=== PATIENT | female | born 1990 | race Caucasian/White ===

== ENCOUNTER 2022-11-29 11:59 | Outpatient (OUT) | payer BC, SELFPAY ==
--- NOTE | 2022-11-29 | ECG_ITS ---
The [facility] Test Date: 2022-11-29 Pat Name: SOO VAZQUEZ Department: Room: - Gender: Female Bird Tender: : 1990 Requested By: SURYA HODGES Order Number: [id number] Reading MD: ALECIA COLÓN Measurements Intervals Fabens Rate: 94 P: 71 WI: 142 QRS: 83 QRSD: 95 T: 58 QT: 344 QTc: 431 Interpretive Statements SINUS RHYTHM POSSIBLE RIGHT VENTRICULAR CONDUCTION DELAY [RSR (QR) IN V1/V2] No previous ECG available for comparison Electronically Signed On 11-30-2022 6:51:18 EDT by ALECIA COLÓN
--- NOTE | 2022-11-29 12:29 | XR_ITS ---
The [address] [address] Patient Name: SOO VAZQUEZ MRN: [id number] date: 1990 Sex: F Assigned Patient Location: LAB Current Patient Location: LAB Accession/Order Number: [id number] Exam Date: 11/29/2022 12:30 Report Date: 11/29/2022 12:55 At the request of: SURYA HODGES Procedure: XR chest 2V PROCEDURE: XR chest 2V DATE: 11/29/2022 11:30 AM CDT COMPARISONS: None. CLINICAL INDICATION: 32 years Female R06.00 FINDINGS: The cardiomediastinal silhouette and pulmonary vasculature are within normal limits. The lungs are clear. There is no evidence of pleural effusion or pneumothorax. XR/XR chest 2V IMPRESSION: Chest radiograph is within normal limits. Electronically authenticated by: EVERETT PENN Date: 11/29/2022 12:55
[2022-11-29 12:57] LABS: Basophils Absolute Auto 0.1 10^3/uL (0.0-0.1); Basophils Percent Auto 0.7 % (0.2-2.0); Eosinophils Absolute Auto 0.1 10^3/uL (0.0-0.7); Eosinophils Percent Auto 0.6 % (0.9-7.0); Hematocrit 42.8 % (36.0-48.0); Hemoglobin 13.9 g/dL (12.0-16.0); Immature Granulocytes Abs Auto 0.01 10^3/uL (0.00-0.03); Immature Granulocytes Pct Auto 0.1 % (0.0-0.5); Lymphocytes Absolute Auto 2.5 10^3/uL (1.2-3.8); Lymphocytes Percent Auto 30.8 % (20.5-60.0); Mean Corpuscular HGB Conc 32.5 g/dL (29.9-35.2); Mean Corpuscular Hemoglobin 27.3 pg (26.7-34.0); Mean Corpuscular Volume 84.1 fL (81.0-99.0); Mean Platelet Volume 8.7 fL (9.5-13.5); Monocytes Absolute Auto 0.5 10^3/uL (0.3-0.8); Monocytes Percent Auto 6.5 % (1.7-12.0); Neutrophils Percent Auto 61.3 % (43.0-75.0); Platelet Count 376 10^3/uL (150-450); Red Blood Count 5.09 10^6/uL (4.20-5.40); Red Cell Distribution Width 13.6 % (11.0-15.0); White Blood Count 8.1 10^3/uL (4.0-11.0)
[2022-11-29 13:36] LABS: Free T4 1.39 ng/dL (0.76-1.46)
[2022-11-29 13:39] LABS: Anion Gap 9.1; BUN Creatinine Ratio 11.5; Calcium 9.2 mg/dL (8.5-10.1); Carbon Dioxide 28.5 mmol/L (21.0-32.0); Chloride 102 mmol/L (98-107); Estimated GFR (African America >60 (>=60); Estimated GFR (Non-African Ame >60 (>=60); Glucose 100 mg/dL (74-106); Potassium 3.6 mmol/L (3.5-5.1); Sodium 136 mmol/L (136-145); Thyroid Stimulating Hormone 0.022 uIU/mL (0.358-3.740)
== END 2022-11-29 12:00 | disposition home or self-care (01) ==
PROVIDERS: PCP Family Medicine; Visit Provider Family Medicine
DX: R07.9 Chest pain, unspecified (principal); R06.00 Dyspnea, unspecified; E03.9 Hypothyroidism, unspecified
CPT/HCPCS: 36415; 71046; 80048; 84439; 84443; 85025; 93005

== ENCOUNTER 2022-12-28 20:33 | Outpatient (REF) | payer BC, SELFPAY ==
[2023-01-04 11:13] LABS: Age Gdln ACOG Testing Note (.); HPV Aptima Negative (Negative); IGP, Aptima HPV, rfx 16/18,45 Note (.)
== END 2022-12-28 20:34 | disposition home or self-care (01) ==
LOC: LAB 20:33
PROVIDERS: PCP Family Medicine; Visit Provider Obstetrics & Gynecology
DX: Z01.419 Encounter for gynecological examination (general) (routine) without abnormal findings (principal)
CPT/HCPCS: 87624; G0145

== ENCOUNTER 2023-01-01 07:42 | Outpatient (OUT) | payer BC, SELFPAY ==
[2023-01-01 08:00] LABS: Basophils Absolute Auto 0.1 10^3/uL (0.0-0.1); Basophils Percent Auto 0.6 % (0.2-2.0); Eosinophils Absolute Auto 0.1 10^3/uL (0.0-0.7); Eosinophils Percent Auto 1.1 % (0.9-7.0); Hematocrit 38.8 % (36.0-48.0); Hemoglobin 12.7 g/dL (12.0-16.0); Immature Granulocytes Abs Auto 0.01 10^3/uL (0.00-0.03); Immature Granulocytes Pct Auto 0.1 % (0.0-0.5); Lymphocytes Absolute Auto 2.8 10^3/uL (1.2-3.8); Lymphocytes Percent Auto 32.7 % (20.5-60.0); Mean Corpuscular HGB Conc 32.7 g/dL (29.9-35.2); Mean Corpuscular Hemoglobin 27.7 pg (26.7-34.0); Mean Corpuscular Volume 84.5 fL (81.0-99.0); Mean Platelet Volume 8.7 fL (9.5-13.5); Monocytes Absolute Auto 0.5 10^3/uL (0.3-0.8); Monocytes Percent Auto 5.9 % (1.7-12.0); Neutrophils Percent Auto 59.6 % (43.0-75.0); Platelet Count 315 10^3/uL (150-450); Red Blood Count 4.59 10^6/uL (4.20-5.40); Red Cell Distribution Width 13.9 % (11.0-15.0); White Blood Count 8.5 10^3/uL (4.0-11.0)
[2023-01-01 08:41] LABS: Estimated Average Glucose 103 mg/dL; Glycohemoglobin A1C 5.2 % (4.5-6.2)
[2023-01-01 08:46] LABS: Free T4 1.13 ng/dL (0.76-1.46)
[2023-01-01 08:55] LABS: Chol HDL Ratio 3.6; Cholesterol 234 mg/dL (<=200); HDL Cholesterol 65 mg/dL (40-60); Thyroid Stimulating Hormone 1.853 uIU/mL (0.358-3.740); Triglycerides 79 mg/dL (<=150); VLDL CHOLESTEROL 15.8 mg/dL
== END 2023-01-01 07:43 | disposition home or self-care (01) ==
LOC: LAB 07:43
PROVIDERS: PCP Family Medicine; Visit Provider Obstetrics & Gynecology
DX: E34.9 Endocrine disorder, unspecified (principal); R79.89 Other specified abnormal findings of blood chemistry; R73.09 Other abnormal glucose
CPT/HCPCS: 36415; 80061; 83036; 84439; 84443; 85025

== ENCOUNTER 2023-02-09 16:50 | Outpatient (OUT) | payer BC, SELFPAY ==
[2023-02-09 17:26] LABS: Estimated Average Glucose 103 mg/dL; Glycohemoglobin A1C 5.2 % (4.5-6.2)
[2023-02-09 17:33] LABS: Free T4 0.89 ng/dL (0.76-1.46)
[2023-02-09 17:40] LABS: Cholesterol 309 mg/dL (<=200); Free T3 1.83 pg/mL (2.18-3.98); HDL Cholesterol 77 mg/dL (40-60); Thyroid Stimulating Hormone 6.914 uIU/mL (0.358-3.740); Triglycerides 186 mg/dL (<=150); VLDL CHOLESTEROL 37.2 mg/dL
== END 2023-02-09 16:51 | disposition home or self-care (01) ==
LOC: LAB 16:51
PROVIDERS: PCP Family Medicine; Visit Provider Physician Assistant
DX: E03.9 Hypothyroidism, unspecified (principal)
CPT/HCPCS: 36415; 80061; 83036; 84439; 84443; 84481

== ENCOUNTER 2023-02-23 16:16 | Outpatient (OUT) | payer BC, SELFPAY ==
--- NOTE | 2023-02-23 16:19 | US_ITS ---
The [address] [address] Patient Name: SOO VAZQUEZ MRN: [id number] date: 1990 Sex: F Assigned Patient Location: [place] Current Patient Location: [place] Accession/Order Number: [id number] Exam Date: 02/23/2023 16:20 Report Date: 02/23/2023 16:46 At the request of: NICOLE RIDER Procedure: US thyroid EXAM: US thyroid HISTORY: Hypothyroidism COMPARISON: None. TECHNIQUE: Multiple sonographic images of the thyroid gland were obtained, supplemented with Doppler. FINDINGS: The right lobe measures 3.0 x 0.5 x 1.0 cm. Homogeneous echoes are noted throughout. No focal nodule is identified within. The left lobe measures 3.8 x 0.6 x 0.7 cm. Homogeneous echoes are noted throughout. No focal abnormality is identified within. The isthmus measures 1 mm in thickness. There is no evidence of a focal mass or abnormal fluid collection surrounding the gland. US/US thyroid IMPRESSION: The thyroid gland is not enlarged. No focal abnormality is identified within. Comparison with a previous study may be helpful in confirming the chronicity is findings. TI RADS 1. Electronically authenticated by: KATIUSKA VALDERRAMA Date: 02/23/2023 16:46
== END 2023-02-23 16:17 | disposition home or self-care (01) ==
LOC: US 16:16
PROVIDERS: PCP Family Medicine; Visit Provider Internal Medicine
DX: E03.9 Hypothyroidism, unspecified (principal)
CPT/HCPCS: 76536

== ENCOUNTER 2023-03-11 09:21 | Outpatient (REF) | payer BC, SELFPAY ==
--- OUTSIDE RECORDS SUMMARY | 2023-03-11 09:35 | XMS_ITS | CCD ---
Author Name Unknown Address [address] [place] [address] Organization [facility] Care Team Providers Care Editor News Name Role Phone Treasure Quezada Unavailable SURYA HODGES Primary Care Physician MD Surya Hodges Primary Care Provider KITA Quezada Attending Provider [phone] Surya Hodges Unavailable Kamaljit ROMERO Attending Unavailable RONDA KAUFMAN Attending Unavailab Brent Pan Referring Unavailable Kamaljit ROMERO Attending Unavailable Dee Mirza Attending Unavailable COLEEN ., DR SEYMOUR Admitting Unavailable HODGES, DR SURYA Dejesus Primary Care Unavailable BRIDGETTE PATEL Consulting Unavailable COLEEN ., DR SEYMOUR Attending Unavailable COLEEN ., DR SEYMOUR Admitting Unavailable COLEEN ., DR SEYMOUR Consulting Unavailable HODGES, DR SURYA Dejesus Primary Care Unavailable COLEEN ., DR SEYMOUR Attending Unavailable CHELSEA PINTO Consulting Unavailable BO II, MATHEW Consulting Unavailable COLEEN ., DR SEYMOUR Admitting Unavailable COLEEN ., DR SEYMOUR Consulting Unavailable TRACIE, DR SURYA Dejesus Primary Care Unavailable COLEEN ., DR SEYMOUR Attending Unavailable LUOleg .DEE Attending Unavailable LUOleg .DEE Admitting Unavailable EULALIO .DEE Consulting Unavailable TRACIE, DR SURYA Dejesus Primary Care Unavailable ROMERO ., DR NAQVI Attending Unavailable ROMERO ., DR NAQVI Admitting Unavailable ROMERO ., DR NAQVI Consulting Unavailable ZIEBER, DR DAVID Rivas Consulting Unavailable COLEEN ., DR SEYMOUR Admitting Unavailable COLEEN ., DR SEYMOUR Consulting Unavailable TRACIE, DR SURYA Dejesus Primary Care Unavailable COLEEN ., DR SEYMOUR Attending Unavailable HODGES, DR SURYA Dejesus Primary Care Unavailable ROMERO ., DR NAQVI Attending Unavailable ROMERO ., DR NAQVI Admitting Unavailable TRACIE, DR SURYA Dejesus Primary Care Unavailable KORI, BRINA Attending Unavailable KORI, BRINA Admitting Unavailable COLEEN ., DR SEYMOUR Admitting Unavailable COLEEN ., DR SEYMOUR Consulting Unavailable HODGES, DR SURYA Dejesus Primary Care Unavailable COLEEN ., DR SEYMOUR Attending Unavailable COLEEN ., DR SEYMOUR Consulting Unavailable HODGES, DR SURYA Dejesus Primary Care Unavailable COLEEN ., DR SEYMOUR Attending Unavailable COLEEN ., DR SEYMOUR Admitting Unavailable Kayla Acosta Consulting Unavailable KORI, BRINA Admitting Unavailable BRINA SHEIKH Attending Unavailable TRACIE, DR SURYA Dejesus Primary Care Unavailable TRACIE, DR SURYA Dejesus Primary Care Unavailable LIMA, DR CROW Rivas Admitting Unavailable LIMA, DR CROW Rivas Consulting Unavailable LIMA, DR CROW Rivas Attending Unavailable MAGI BAUER Consulting Unavailable MICKEY GALVAN Consulting Unavailable RERE CARLISLE Consulting Unavailable MD Surya Hodges Primary Care Provider DO Marcio Steven Emergency Provider MD Baljinder Polanco Admit Provider [phone] MD Baljinder Polanco Attending Provider Treasure Quezada Attending Unavailable Treasure Quezada Admitting Unavailable Surya Hodges Primary Care Unavailable Baljinder Polanco Admitting Unavailable Surya Hodges Primary Care Unavailable Baljinder Polanco Attending Unavailable Allergies Allergy Classification Reported Allergen(s) Allergy Type Date of Onset Reaction(s) Facility (16 sources) Azithromycin; Translations: [azithromycin] Drug Allergy rash, Eruption of skin (disorder) [facility] (13 sources) whooping cough Propensity to adverse reactions swelling injection site [facility] Other (12 sources) Bordetella pertussis filamentous hemagglutinin vaccine, inactivated / Bordetella pertussis fimbriae 2/3 vaccine, inactivated / Bordetella pertussis pertactin vaccine, inactivated / Bordetella pertussis toxoid vaccine, inactivated / diphtheria toxoid vaccine, inactivated / tetanus toxoid vaccine, inactivated; Translations: [diphtheria/pertu ssis, acel/tetanus adult] Drug Allergy 03-14-19 Unknown, Comment:vaccin e [facility] (13 sources) Clindamycin; Translations: [clindamycin] Drug Allergy 03-14-19 Unknown, Comment:Clinda mycin Cream, Rash [facility] (2 sources) acellular pertussis vaccine, inactivated / diphtheria toxoid vaccine, inactivated / tetanus toxoid vaccine, inactivated Drug Allergy [facility] (2 sources) Clindamycin Drug Allergy [facility] (2 sources) vaccine adjuvant system, AS01B liposomal; Translations: [vaccine adjuvant system, AS01B liposomal] Allergy to substance 12-01-19 Rash [facility] (1 source) Clindamycin Drug Allergy 12-01-19 [facility] Medications Current Medications Medication Drug Class(es) Dates Sig (Normalized) Sig (Original) [id number] 200 actuat albuterol 0.09 mg/actuat metered dose inhaler (1 source) beta2-Adrenergic Agonist Start: 04-08-2021 take 2 puff(s) by inhalation four times daily as needed Albuterol Sulfate HFA 108 (90 Base) MCG/ACT 2 puffs Inhalation qid prn Mar, Active amoxicillin 500 mg oral capsule (2 sources) Penicillin-class Antibacterial Start: 03-16-2022 take 1 capsule by mouth every eight hours Amoxicillin 500 MG 1 capsule Orally every 8 hrs for 7 days Mar, Active Celexa (3 sources) Serotonin Reuptake Inhibitor Start: 05-21-2022 Celexa Refills(s) 0 Start Date: 05/21/22 Status: Ordered take 1 tablet by tory th every twenty-four hours CeleXA 20 MG 1 tablet once a day Active estradiol 0.5 mg oral tablet (1 source) Estrogen Start: 01-13-2022 take 2 tablets by mouth once daily estradiol 0.5 mg Tab mg tab(s), Oral, Daily, Refills(s) 0 Start Date: 01/13/22 Status: Ordered fluconazole 150 mg oral tablet (3 sources) Azole Antifungal Start: 03-16-2022 Diflucan 150 MG 1 tablet Orally x1 for 1 days Mar, Active Prozac (2 sources) Serotonin Reuptake Inhibitor Start: 01-13-2022 Prozac Oral, Daily, Refills(s) 0 Start Date: 01/13/22 Status: Ordered levothyroxine sodium 0.137 mg oral capsule (17 sources) l-Thyroxine Start: 12-01-2022 take 137 ug by mouth once daily Levothyroxine Active 137 MCG PO Daily December 01, 2022 12:00am Start: 11-30-2022 take 175 ug by mouth once daily Levothyroxine Active 175 MCG PO Daily November 30, 2022 12:00am Start: 01-11-2022 Synthroid 150 mcg (0.15 mg) Tab Oral, Refills(s) 0 Start Date: 01/11/22 Status: Ordered take 1 tablet by tory th every twenty-four hours Synthroid 137 MCG 1 tablet Orally Once a day Active take 1 tablet by tory th every twenty-four hours Synthroid 175 MCG 1 tablet Orally Once a day Active 24 hr metFORMIN hydrochloride 500 mg extended release oral tablet (2 sources) Biguanide Start: 11-30-2022 End: 12-01-2022 take 500 mg by mouth twice daily Metformin Active 500 MG PO Twice daily 180 90 December 01, 2022 1:05pm Mounjaro 2.5 mg/0.5 mL subcutaneous solution (2 sources) Start: 01-13-2022 inject 1 mg by subcutaneous injection every week Mounjaro 2.5 mg/0.5 mL subcutaneous solution mg, SubCutaneous, qWeek, Refills(s) 0 Start Date: 01/13/22 Status: Ordered Zofran (1 source) Serotonin-3 Receptor Antagonist Start: 05-21-2022 Zofran Refills(s) 0 Start Date: 05/21/22 Status: Ordered phentermine hydrochloride 37.5 mg oral tablet (8 sources) Sympathomimetic Amine Anorectic Start: 11-18-2022 take 1 tablet by mouth once daily before breakfast Adipex-P 37.5 MG 1 tablet before breakfast Orally Once a day for 30 days Nov, Active Start: 10-18-2022 take 1 tablet by tory th once daily before breakfast Adipex-P 37.5 MG 1 tablet before breakfast Orally Once a day for 30 days Oct, Active Start: 07-07-2023 take 1 tablet by tory th once daily before breakfast Adipex-P 37.5 MG 1 tablet before breakfast Orally Once a day for 30 days Sep, Active predniSONE 10 mg oral tablet (6 sources) Start: 11-05-2022 predniSONE 10 MG 4 tabs po daily x 2 days, 3 tabs daily x 2 days, 2 tabs daily x 2 days, 1 tab daily x 2 days Orally Once a day for Oct, Active Start: 09-09-2022 predniSONE 10 MG 4 tabs po daily x 2 days, 3 tabs daily x 2 days, 2 tabs daily x 2 days, 1 tab daily x 2 days Orally Once a day for 8 Aug, Active Start: 04-08-2021 take 1 tablet by tory every twelve hours predniSONE 20 MG 1 tablet Orally bid for 5 day(s) Mar, Active 24 hr propranolol hydrochloride 120 mg extended release oral capsule (3 sources) beta-Adrenergic Janie Start: 12-01-2022 take 120 mg by mouth once daily Propranolol Active 120 MG PO Daily December 01, 2022 12:00am Completed/Discontinued Medications Medication Drug Class(es) Dates Sig (Normalized) Sig (Original) methylPREDNISolone acetate 40 mg/ml injectable suspension (11 sources) Corticosteroid Start: 11-05-2022 DEPO-Medrol Oct, 60 mg Start: 03-16-2022 Medrol (Chad) 4 MG as directed Orally daily for 6 days Mar, Active methylPREDNISolo ne 4 MG TAKE 6 TABLETS ON DAY 1 DIRECTED ON PACKAGE AND DECREASE BY 1 TAB EACH DAY FOR A TOTAL OF 6 DAYS for 6 Active triamcinolone acetonide 40 mg/ml injectable suspension (10 sources) Corticosteroid Start: 09-15-2022 Kenalog-40 Sep, 60 mg venlafaxine 75 mg oral tablet (15 sources) Serotonin and Norepinephrine Reuptake Inhibitor take 1 tablet by mouth every twelve hours Venlafaxine HCl 75 MG 1 tablet with food Orally Twice a day Not-Taking Effexor Active Problems Active Problems Problem Classification Problem Date Documented Da te Episodic/Chronic Abdominal pain (11 sources) Pelvic and perineal pain; Translations: [Unspecified abdominal pain] Onset: Episodic Acute bronchitis (3 sources) Acute bronchitis; Translations: [Acute bronchitis due to other specified organisms] Episodic Allergic reactions (8 sources) Unspecified contact dermatitis, unspecified cause; Translations: [Allergic contact dermatitis] Episodic Anxiety disorders (12 sources) Anxiety; Translations: [Anxiety disorder] 01-13-2022 Chronic Calculus of urinary tract (10 sources) Ureteric stone; Translations: [Calculus of ureter] Onset: 3 Episodic Cardiac dysrhythmias (1 source) Supraventricular tachycardia; Translations: [SUPRAVENTRICULAR TACHYCARDIA] Onset: 2 Chronic Cardiac dysrhythmias (9 sources) Tachycardia; Translations: [Tachycardia, unspecified] Onset: 4 11-30-2022 Episodic Essential hypertension (7 sources) Essential hypertension; Translations: [Essential (primary) hypertension] Chronic Genitourinary symptoms and ill-defined conditions (12 sources) Stress incontinence (female) (male); Translations: [Female stress incontinence] Onset: 2 Chronic Genitourinary symptoms and ill-defined conditions (3 sources) Genitourinary symptoms; Translations: [Other symptoms and signs involving the genitourinary system] Episodic Headache; including migraine (3 sources) Migraine without aura, not refractory ; Translations: [Other migraine, not intractable, without status migrainosus] Chronic Inflammatory diseases of female pelvic organs (3 sources) Acute vaginitis; Translations: [Acute vaginitis] Episodic Malaise and fatigue (7 sources) Fatigue; Translations: [Other fatigue] Episodic Menopausal disorders (1 source) Hormone replacement therapy; Translations: [HORMONE REPLACEMENT THERAPY] Onset: 3 Episodic Menstrual disorders (12 sources) Intermenstrual bleeding - irregular; Translations: [Excessive and frequent menstruation with irregular cycle] Onset: 9 Resolved: 1 Chronic Miscellaneous mental health disorders (3 sources) Lack or loss of sexual desire; Translations: [Hypoactive sexual desire disorder] Chronic Miscellaneous mental health disorders (3 sources) Emotional state finding; Translations: [Other symptoms and signs involving emotional state] Episodic Mood disorders (3 sources) Affective psychosis; Translations: [Unspecified mood [affective] disorder] Chronic Mood disorders (7 sources) Mood swings; Translations: [Emotional lability] Episodic Nonspecific chest pain (3 sources) Chest pain, unspecified; Translations: [Chest pain] Episodic Nutritional deficiencies (7 sources) Iron deficiency; Translations: [Iron deficiency] Episodic Other aftercare (1 source) Other group home (current) drug therapy; Translations: [OTH SNF CURRENT DRUG THERAPY] Onset: 3 Episodic Other aftercare (3 sources) Long-term current use of drug therapy; Translations: [Other group home (current) drug therapy] Episodic Other aftercare (3 sources) History and physical examination, follow-up; Translations: [Encounter for follow-up examination after completed treatment for conditions other than malignant neoplasm] Episodic Other circulatory disease (7 sources) Elevated blood-pressure reading without diagnosis of hypertension; Translations: [Elevated blood-pressure reading, without diagnosis of hypertension] Episodic Other endocrine disorders (4 sources) Endocrine disorder, unspecified; Translations: [ENDOCRINE DISORDER UNSPECIFIED] Onset: 3 Episodic Other endocrine disorders (3 sources) Disorder of endocrine system; Translations: [Endocrine disorder, unspecified] Episodic Other female genital disorders (1 source) Noninflammatory disorder of ovary, fallopian tube and broad ligament, unspecified; Translations: [OTH NONINFL D/O OVARY TUBE AND BRD LIG] Onset: 3 Episodic Other female genital disorders (3 sources) Noninflammatory disorder of the vagina; Translations: [Other specified noninflammatory disorders of vagina] Episodic Other gastrointestinal disorders (1 source) Peritoneal adhesions (postprocedural) (postinfection); Translations: [PERITONEAL ADHES POSTPROC POSTINF] Onset: 3 Episodic Other inflammatory condition of skin (7 sources) Rosacea; Translations: [Other rosacea] Onset: 7 Chronic Other inflammatory condition of skin (3 sources) Itching of skin; Translations: [Pruritus, unspecified] Episodic Other lower respiratory disease (1 source) Dyspnea, unspecified Episodic Other lower respiratory disease (1 source) Other abnormalities of breathing Episodic Other nutritional; endocrine; and metabolic disorders (20 sources) Obesity; Translations: [Obesity, unspecified] Chronic Other nutritional; endocrine; and metabolic disorders (1 source) Obesity, unspecified; Translations: [OBESITY UNSPECIFIED] Onset: 3 Chronic Other nutritional; endocrine; and metabolic disorders (6 sources) Obese class I; Translations: [Body mass index (BMI) 32.0-32.9, adult] Chronic Other nutritional; endocrine; and metabolic disorders (7 sources) Simple obesity ; Translations: [Other obesity due to excess calories] Onset: 6 Chronic Other nutritional; endocrine; and metabolic disorders (13 sources) Weight gain; Translations: [Abnormal weight gain] Episodic Other nutritional; endocrine; and metabolic disorders (1 source) Body mass index (BMI) 27.0-27.9, adult; Translations: [BODY MASS INDEX BMI 27.0-27.9 ADULT] Onset: 3 Episodic Other nutritional; endocrine; and metabolic disorders (3 sources) Overweight Episodic Other nutritional; endocrine; and metabolic disorders (1 source) Body mass index (BMI) 29.0-29.9, adult Episodic Other nutritional; endocrine; and metabolic disorders (7 sources) Other symptoms and signs concerning food and fluid intake; Translations: [Nutritional status: food and fluid intake] Episodic Other nutritional; endocrine; and metabolic disorders (1 source) Body mass index (BMI) 28.0-28.9, adult Episodic Other screening for suspected conditions (not mental disorders or infectious disease) (7 sources) Encounter for screening for malignant neoplasm of cervix; Translations: [Urine test negative] Onset: 2 Episodic Other upper respiratory disease (3 sources) Seasonal allergic rhinitis; Translations: [Other seasonal allergic rhinitis] Chronic Other upper respiratory infections (3 sources) Chronic sinusitis; Translations: [Chronic sinusitis, unspecified] Chronic Other upper respiratory infections (20 sources) Acute upper respiratory infection, unspecified; Translations: [Acute upper respiratory infection] Onset: 3 Resolved: 2 Episodic Ovarian cyst (6 sources) Unspecified ovarian cyst, left side; Translations: [Unspecified ovarian cyst, unspecified side] Onset: 3 Episodic Residual codes; unclassified (1 source) Acquired absence of other specified parts of digestive tract; Translations: [ACQ ABSENCE OTH PART DIGESTV TRACT] Onset: 3 Episodic Residual codes; unclassified (1 source) Acquired absence of both cervix and uterus; Translations: [ACQUIRED ABSENCE BOTH CERVIX AND UTERUS] Onset: 3 Episodic Residual codes; unclassified (3 sources) Flushing; Translations: [Flushing] Episodic Residual codes; unclassified (3 sources) Localized edema; Translations: [Localized edema] Episodic Residual codes; unclassified (3 sources) Postprocedural state finding; Translations: [Other specified postprocedural states] Episodic Sprains and strains (13 sources) Sprain of other ligament of left ankle, subsequent encounter; Translations: [Sprain of left ankle] Onset: 7 Episodic Thyroid disorders (20 sources) Hypothyroidism; Translations: [Hypothyroidism, unspecified] Onset: 2 01-11-2022 Chronic Unclassified (1 source) Tachycardia, unspecified; Translations: [Tachycardia, unspecified] Onset: 3 Unclassified (1 source) Pain in left ankle and joints of left foot; Translations: [Pain in left ankle and joints of left foot] Onset: 2 Viral infection (6 sources) Genital herpes simplex; Translations: [Herpesviral infection of other urogenital tract] Resolved: 9 Chronic Past or Other Problems Problem Classification Problem Date Documented Date Episodic/Chronic Contraceptive and procreative management (3 sources) Surveillance of intrauterine device contraception; Translations: [Encounter for routine checking of intrauterine contraceptive device] Resolved: 06-01-2018 Episodic Immunizations and screening for infectious disease (2 sources) Contact with and (suspected) exposure to other viral communicable diseases; Translations: [Encounter for screening for human papillomavirus (HPV)] Onset: 04-08-2021 Resolved: 04-08-2021 Episodic Inflammation; infection of eye (except that caused by tuberculosis or sexually transmitteddisease) (7 sources) External hordeolum; Translations: [Hordeolum externum unspecified eye, unspecified eyelid] Onset: 07-16-2015 Episodic Mycoses (3 sources) Candidiasis; Translations: [Candidiasis, unspecified] Resolved: 07-07-2016 Episodic Other connective tissue disease (1 source) Pain in left foot; Translations: [PAIN IN LEFT FOOT] Onset: 03-30-2022 Episodic Other female genital disorders (3 sources) Disorder of female genital organs; Translations: [Unspecified condition associated with female genital organs and menstrual cycle] Onset: 06-10-2008 Resolved: 05-08-2015 Episodic Other lower respiratory disease (7 sources) Snoring; Translations: [Snoring] Onset: 05-02-2018 Episodic Other nutritional; endocrine; and metabolic disorders (3 sources) Abnormal weight gain; Translations: [Abnormal weight gain] Onset: 11-03-2021 Episodic Superficial injury; contusion (3 sources) Nonvenomous insect bite of thigh without infection; Translations: [Insect bite (nonvenomous), right thigh, initial encounter] Onset: 11-18-2016 Episodic Unclassified (1 source) Vaginal yeast infection B37.31 Unclassified (3 sources) Acute candidiasis of vulva and vagina; Translations: [Acute candidiasis of vulva and vagina] Results Test Name Value Interpretation Reference Range Facility A1C with Estimated Average G hussain 12-01-2022 Glucose [Mass/Vol] 120 mg/dL Normal [facility] Comment on above: Result Comment: PERF ORMED BY: [facility] [address] [place] [address] PATHOLOGIST SAP GATHERER ISAIAS DE LA CRUZ M.D. Performed By: #### L IPID, HS TROP, A1C WT eA ####[place] [id number] [place] [id number] [facility] HbA1c (Bld) [Mass fraction] 5.8 % High 4.3-5.6 [facility] Comment on above: Result Comment: Incr eased risk for diabetes: 5.7 - 6.4 diabetes: >6.4 glycemic control for adults with diabetes: <7.0 Performed By: #### L IPID, HS TROP, A1C WTH eA ####[place] [id number] [place] [id number] [facility] Cholesterol [Mass/volume] in Serum or PlasmaOrdered By: Baljinder Polanco on 12-01-2022 Cholesterol [Mass/Vol] 214 mg/dL 140-200 [facility] Comment on above: Chol less than 200 m g/dl low riskChol 201-239 mg/dl borderline riskChol 240 mg/dl and greater high risk Cholesterol in LDL Calc [Mas s/Vol]Ordered By: Baljinder Polacno on 12-01-2022 Cholesterol in LDL [Mass/Vol] 132 mg/dL 0-100 [facility] Comment on above: LDL ATP III CLASSIFI CATIONLDL less than 100 mg/dL OptimalLDL 100-129 mg/dL Near or above optimalLDL 130-159 mg/dL Borderline highLDL 160-189 mg/dL HighLDL greater than 189 mg/dL Very high Cholesterol in VLDL Calc [Ma ss/Vol]Ordered By: Baljinder Polanco on 12-01-2022 Cholesterol in VLDL [Mass/Vol] 27 mg/dL [facility] echo transthoracicon [facility] echo transthoracic [facility] Main [place] [address] [place] [address] Echocardiogram Signed Patient: Karlene Vazquez MR#: [id number] : 1990 Acct:[id number] Age/Sex: 32 / F ADM Date: 11/30/22 Loc: Room: [address] [place] [address] Type: ADM INOo Attending Dr: Baljinder Polanco MD Ordering Provider: Baljinder Polanco MD Date of Service: 12/01/22 [facility] echo transthoracic: chest pain, abnormal troponins Copies to: MD Hammad Ambrose MD, [facility] Height: 69 in Weight: 197 lb Performed By: OZ Bonilla BSA: 2.1 m2 BP: 126/85 mmHg HR: 99 Reason For Study: chest pain, abnormal troponins History: No cardiac history per patient Interpretation Summary Ejection Fraction = 55-60%. The left ventricular size, thickness and function are normal The left ventricular wall motion is normal. Normal transthoracic echocardiogram. Procedure/Quality: A two-dimensional transthoracic echocardiogram with color flow and Doppler was performed. The study was technically good in quality. There is no prior echocardiogram noted for this patient. Left Ventricle: The left ventricular size, thickness and function are normal. Ejection Fraction = 55-60%. The left ventricular wall motion is normal. Left Atrium: The left atrium appears normal in size. The atrial septum appears normal. Right Atrium: The right atrium appears normal in size. Right Ventricle: The right ventricular size, thickness and function are normal. Aortic Valve: The aortic valve is normal in structure and function. No aortic regurgitation is present. Mitral Valve: The mitral valve is normal in structure and function. There is no mitral regurgitation noted. Tricuspid Valve: The tricuspid valve is normal in structure and function. No tricuspid regurgitation. Pulmonic Valve: The pulmonic valve is normal in structure and function. Arteries: The aortic root is normal size. Pericardium/Pleura: No pericardial effusion seen. There is no pleural effusion. IVC/Hepatic Viens: The inferior vena cava is normal in size, with a normal collapsibility index. Miscellaneous: No thrombus, vegetation or mass is seen. Measurements with Normals IVSd: 1.2 cm (0.7-1.1 cm)LVIDd: 3.7 cm (3.7-5.4 cm) LVPWd: 1.1 cm (0.7-1.1 cm)LVIDs: 2.4 cm (2.3-3.6 cm) LA dimension: 3.8 cm(2.3-4.0 cm)Ao root diam: 2.7 cm(2.0-3.6 cm) Doppler with Normals MV E max andrew: 73.7 cm/sec(0.8-1.3m/s) MV A max andrew: 56.1 cm/sec(0.0-0.0m/s) MV E/A: 1.3 (<1.5) MMode/2D Measurements Calculations RVDd: 3.0 cm FS: 35.1 % Ao root area: 5.7 cm2 LVLd ap4: 6.8 cm TAPSE: 2.7 cm EDV(Teich): EDV(MOD-sp4): RV S Andrew: 58.1 ml 42.7 ml 15.7 cm/sec ESV(Teich): LVLs ap4: 5.9 cm 20.2 ml ESV(MOD-sp4): EF(Teich): 65.3 % 18.4 ml EF(MOD-sp4): 56.9 % __ SV(MOD-sp4): LAV(MOD-sp4): LA A2 area: 14.5 cm2 24.3 ml 17.3 ml LAV(MOD-sp2): LA A4 area: 9.6 cm2 37.0 ml LA length (vol): 4.2 cm LA vol: 28.4 ml LA vol index: 13.8 ml/m2 Doppler Measurements Calculations MV dec time: 0.09 sec E/E' lat: 4.9 E/E' med: 6.0 MV dec slope: 871.0 cm/sec2 ___ Transcribed By: SCV Performed At: 12/01/22 1120 Signed By: Hammad Adam MD, [facility] 12/01/22 1643 Normal [facility] Glucose mean value [Mass/vol ume] in Blood Estimated from glycated hemoglobinOrdered By: Baljinder Polanco on 12-01-2022 Average glucose Estimated from glycated hemoglobin (Bld) [Mass/Vol] 120 mg/dL [facility] [facility] Hemoglobin A1c percentageOrd ered By: Baljinder Polanco on 12-01-2022 HbA1c (Bld) [Mass fraction] 5.8 % 4.3-5.6 [facility] Comment on above: Increased risk for d iabetes: 5.7 - 6.4diabetes: >6.4glycemic control for adults with diabetes: <7.0 Lipid Panelon 12-01-2022 Cholesterol [Mass/Vol] 214 mg/dL High 140-200 [facility] Comment on above: Result Comment: Chol less than 200 mg/dl low risk Chol 201-239 mg/dl borderline risk Chol 240 mg/dl and greater high risk Performed By: #### L IPID, HS TROP, A1C WTH eA ####[facility] [id number] [place] [address] [facility] Cholesterol in HDL [Mass/Vol] 54 mg/dL Normal 23-92 [facility] Comment on above: Result Comment: HDL CHOL ATP-III CLASSIFICATION Cardiovascular Risk HDL > or equal to 60 mg/dL LOW HDL < 40 mg/dL HIGH Performed By: #### L IPID, HS TROP, A1C WTH eA ####[facility] [id number] [place] [address] [facility] Cholesterol.total/Chol esterol in HDL [Mass ratio] 4.0 {ratio} Normal <5.0 [facility] Comment on above: Result Comment: PERF ORMED BY: [facility] [address] [place] [address] PATHOLOGIST SAP GATHERER ISAIAS DE LA CRUZ M.D. Performed By: #### L IPID, HS TROP, [address] eA ####[place] [id number] [place] [id number] [facility] LDL Cholesterol,Calculated 132 mg/dL High 0-100 [facility] Comment on above: Result Comment: LDL ATP III CLASSIFICATION LDL less than 100 mg/dL Optimal LDL 100-129 mg/dL Near or above optimal LDL 130-159 mg/dL Borderline high LDL 160-189 mg/dL High LDL greater than 189 mg/dL Very high Performed By: #### L IPID, HS TROP, [address] eA ####[address] Triglyceride w/Reflex 139 mg/dL Normal 0-149 [facility] Comment on above: Result Comment: TRIG ATP III CLASSIFICATION TRIG less than 150 mg/dL Normal TRIG 150-199 mg/dL Borderline high TRIG 200-500 mg/dL High TRIG greater than 500 mg/dL Very high Standard traceable to the Center for Disease Conrtrol and Prevention (CDC) test method. Performed By: #### L IPID, HS TROP, [address] eA ####[place] [id number] [place] [id number] [facility] VLDL CHOLESTEROL 27 mg/dL Normal [facility] Comment on above: Performed By: #### L IPID, HS TROP, [address] eA ####[place] [id number] [facility] Serum or plasma high density lipoprotein (HDL) cholesterol measurementOrdered By: Baljinder Polanco on 12-01-2022 Cholesterol in HDL [Mass/Vol] 54 mg/dL 23-92 [facility] Comment on above: HDL CHOL ATP-III CLA SSIFICATION Cardiovascular RiskHDL > or equal to 60 mg/dL LOWHDL < 40 mg/dL HIGH Serum or plasma total choles terol/high density lipoprotein (HDL) cholesterol mass ratOrdered By: Baljinder Polanco on 12-01-2022 Cholesterol.total/Chol esterol in HDL [Mass ratio] 4.0 {ratio} <5.0 [facility] Triglyceride [Mass/volume] i n Serum or PlasmaOrdered By: Baljinder Polanco on 12-01-2022 Triglyceride [Mass/Vol] 139 mg/dL 0-149 [facility] Comment on above: TRIG ATP III CLASSIF ICATIONTRIG less than 150 mg/dL NormalTRIG 150-199 mg/dL Borderline highTRIG 200-500 mg/dL High TRIG greater than 500 mg/dL Very highStandard traceable to the Center for Disease Conrtrol and Prevention (CDC) test method. Troponin I High Sensitivityo n 12-01-2022 Troponin I High Sensitivity 27.1 pg/mL High 0.0-15.0 [facility] Comment on above: Result Comment: PERF ORMED BY: [facility] [address] [place] [id number] PATHOLOGIST SAP GATHERER ISAIAS DE LA CRUZ M.D. Performed By: #### L IPID, HS TROP, A1C WTH eA ####[facility] [place] [id number] [facility] Troponin I.cardiac [Mass/vol ume] in Serum or Plasma by Detection limit <= 0.01 ng/Ordered By: Baljinder Polanco on 12-01-2022 Troponin I.cardiac DL <= 0.01 ng/mL [Mass/Vol] 27.1 pg/mL 0.0-15.0 [facility] Activated partial thrombopla stin time (aPTT) in platelet poor plasma by coagulation aOrdered By: Marcio Steven on 11-30-2022 aPTT Coag (PPP) [Time] 32.4 s 25.1-36.5 [facility] Comment on above: A hematocrit value g reater than 55% may lead to inaccurate results in coagulation testing. Patients having hematocrit values >55% require a special collection tube for coagulation studies. Please contact the laboratory at [phone] for redraw instructions. Alanine aminotransferase [En zymatic activity/volume] in Serum or PlasmaOrdered By: Marcio Steven on 11-30-2022 ALT [Catalytic activity/Vol] 16 U/L Normal 7-52 [facility] Comment on above: Performed By: #### U A #### [address] Albumin [Mass/volume] in Ser um or Plasma by Bromocresol green (BCG) dye binding methoOrdered By: Marcio Steven on 11-30-2022 Albumin BCG dye [Mass/Vol] 4.4 g/dL 3.5-5.7 [facility] Alkaline phosphatase [Enzyma tic activity/volume] in Serum or PlasmaOrdered By: Marcio Steven on 11-30-2022 ALP [Catalytic activity/Vol] 73 U/L Normal 34-104 [facility] Comment on above: Performed By: #### U A #### [address] Aspartate aminotransferase [ Enzymatic activity/volume] in Serum or PlasmaOrdered By: Marcio Steven on 11-30-2022 AST [Catalytic activity/Vol] 11 U/L Low 13-39 [facility] Comment on above: Performed By: #### U A #### [address] Automated basophil %Ordered By: Marcio Steven on 11-30-2022 Basophils/100 WBC (Bld) 0.8 % Normal . [facility] Comment on above: Performed By: #### B LEGAL PROCESS SPECIALIST, CK, CBC, HS TROP #### [address] Automated basophil countOrde red By: Marcio Steven on 11-30-2022 Basophils (Bld) [#/Vol] 0.1 10*3/uL Normal 0.0-0.2 [facility] Comment on above: Result Comment: PERF ORMED BY: [place] [address] PATHOLOGIST SAP GATHERER ISAIAS DE LA CRUZ M.D. Performed By: #### B LEGAL PROCESS SPECIALIST, CK, CBC, HS TROP #### [address] Automated blood monocyte cou ntOrdered By: Marcio Steven on 11-30-2022 Monocytes (Bld) [#/Vol] 0.6 10*3/uL Normal 0.0-0.8 [facility] Comment on above: Performed By: #### B LEGAL PROCESS SPECIALIST, CK, CBC, HS TROP #### [address] Automated eosinophil %Ordere d By: Marcio Steven on 11-30-2022 Eosinophils/100 WBC (Bld) 0.9 % Normal . [facility] Comment on above: Performed By: #### B LEGAL PROCESS SPECIALIST, CK, CBC, HS TROP #### [address] Automated eosinophil countOr dered By: Marcio Steven on 11-30-2022 Eosinophils (Bld) [#/Vol] 0.1 10*3/uL Normal 0.0-0.45 [facility] Comment on above: Performed By: #### B LEGAL PROCESS SPECIALIST, CK, CBC, HS TROP #### [address] Automated monocyte %Ordered By: Marcio Steven on 11-30-2022 Monocytes/100 WBC (Bld) 6.8 % Normal . [facility] Comment on above: Performed By: #### B LEGAL PROCESS SPECIALIST, CK, CBC, HS TROP #### [address] Automated neutrophil %Ordere d By: Marcio Steven on 11-30-2022 Neutrophils/100 WBC (Bld) 59.2 % Normal . [facility] Comment on above: Performed By: #### B LEGAL PROCESS SPECIALIST, CK, CBC, HS TROP #### [address] BNP ser/plasOrdered By: Jack Steven on 11-30-2022 Natriuretic peptide B (Bld) [Mass/Vol] 13.0 pg/mL Normal 5-100 [facility] Comment on above: Result Comment: PERF ORMED BY: [place] [address] PATHOLOGIST SAP GATHERER ISAIAS DE LA CRUZ M.D. Performed By: #### B LEGAL PROCESS SPECIALIST, CK, CBC, HS TROP #### [facility] [address] Basic Metabolic Panelon 11-12 Creatinine Clr Calc Pharmacy 114.[address] [facility] Comment on above: Performed By: #### U A #### [facility] [address] Calcium [Mass/Vol] 9.0817558 mg/dL Normal 8.6-10 .3 mg/dL [facility] [employer] Other CO2 [Moles/Vol] 23.11664452 mmol/L Normal 21.0-3 1.0 mmol/L [facility] [employer] Other Creatinine [Mass/Vol] 0.05280633 mg/dL Normal 0. 60-1.20 mg/dL [facility] [employer] Other GFR/1.73 sq M.predicted MDRD (S/P/Bld) [Vol rate/Area] mL/min/{1.73_m2} [facility] [employer] Other Comment on above: Performed By: #### U A #### [facility] [address] Potassium [Moles/Vol] 4.36398156 mmol/L Normal 3 .5-5.1 mmol/L [facility] [employer] Other Basic Metabolic PanelOrdered By: Marcio Steven on 11-30-2022 Chloride [Moles/Vol] 104 mmol/L Normal 98-107 [facility] Comment on above: Performed By: #### U A #### [facility] [address] [place] [id number] [facility] Glucose [Mass/Vol] 77 mg/dL Normal 70-100 [facility] Comment on above: ADA recommended refe rence rangeRandom Glucose Reference Range is dependent on time and content of last meal. Glucose of more than 200 mg/dL in a nonstressed, ambulatory subject supports the diagnosis of Diabetes Mellitus. Result Comment: [place] [facility] Glucose Reference Range is dependent on time and content of last meal. Glucose of more than 200 mg/dL in a nonstressed, ambulatory subject supports the diagnosis of Diabetes Mellitus. ADA recommended reference range Performed By: #### U A #### [address] Sodium [Moles/Vol] 138 mmol/L Normal 136-145 [facility] Comment on above: Performed By: #### U A #### [address] Urea nitrogen [Mass/Vol] 9 mg/dL Normal 7-25 [facility] Comment on above: Performed By: #### U A #### [address] Bilirubin Test strip Ql (U)O rdered By: Marcio Steven on 11-30-2022 Bilirubin Ql (U) Negative Negative [facility] Bilirubin.direct [Mass/volum e] in Serum or PlasmaOrdered By: Marcio Steven on 11-30-2022 Bilirubin.direct [Mass/Vol] 0.00 mg/dL 0.03-0.18 [facility] Comment on above: If the DBIL is less than 0.1, IBIL is not able to becalculated. Bilirubin.total [Mass/volume ] in Serum or PlasmaOrdered By: Marcio Steven on 11-30-2022 Bilirubin [Mass/Vol] 0.9 mg/dL Normal 0.3-1.0 [facility] Comment on above: Performed By: #### U A #### [address] BioFire Not Detectedon 11-30 BioFire Not Detected Not detected Normal Not Detecte [facility] Comment on above: Result Comment: This is a duplicate RP2.1 COVID (PCR) result to be used for statistical tracking purpose only. PERFORMED BY: [place] [address] PATHOLOGIST SAP GATHERER ISAIAS DE LA CRUZ M.D. Performed By: #### R ZULEMA PANEL UPP., BIOFIRECOVNOTDE #### [address] COVID-19 Detected/Not Detect edOrdered By: Marcio Steven on 11-30-2022 SARS-CoV-2 (COVID-19) RNA LEO+non-probe Ql (Nph) Not detected Not Detecte [facility] Comment on above: This is a duplicate RP2.1 COVID (PCR) result to be used for statistical tracking purpose only. Calcium [Mass/volume] in Ser um or PlasmaOrdered By: Marcio Steven on 11-30-2022 Calcium [Mass/Vol] 9.5 mg/dL Normal 8.6-10.3 [facility] Comment on above: Performed By: #### U A #### [address] Carbon dioxide, total [Moles /volume] in Serum or PlasmaOrdered By: Marcio Steven on 11-30-2022 CO2 [Moles/Vol] 23.9 mmol/L Normal 21.0-31.0 [facility] Comment on above: Performed By: #### U A #### [address] Color Auto (U)Ordered By: Baljeet red Tenisha on 11-30-2022 Color (U) Yellow Yellow [facility] Complete Blood Count Auto Di ffon 11-30-2022 Mean Corpuscular HGB Conc 33.3 g/dL Normal 32.0-35.0 [facility] Comment on above: Performed By: #### B LEGAL PROCESS SPECIALIST, CK, CBC, HS TROP #### [place] [address] [place] Monocytes/100 WBC (Bld) 19.22 % Normal 0.00-20.00 [facility] Comment on above: Performed By: #### B LEGAL PROCESS SPECIALIST, CK, CBC, HS TROP #### [place] [address] [place] NRBC% 0.2 /100{WBC} Normal 0-0.5 [facility] Comment on above: Performed By: #### B LEGAL PROCESS SPECIALIST, CK, CBC, HS TROP #### [place] [address] [place] Basophils (Bld) [#/Vol] 0.099734266 10*3/uL Normal 0.0-0.2 10*3/uL [facility] Other Basophils/100 WBC (Bld) 0.800 % . % [facility] Other Eosinophils (Bld) [#/Vol] 0.025162609 10*3/uL Normal 0.0-0.45 10*3/uL [facility] Other Eosinophils/100 WBC (Bld) 0.900 % . % [facility] Other Erythrocyte distribution width (RBC) [Ratio] 14.300 % Normal 11.9-15.3 % [facility] Other Hematocrit (Bld) [Volume fraction] 41.000 % Normal 34.0-46.4 % [facility] Other Hemoglobin (Bld) [Mass/Vol] 13.510689 g/dL Normal 11.8-15.4 g/dL [facility] Other Lymphocytes (Bld) [#/Vol] 2.578197777 10*3/uL Normal 1.00-4.8 10*3/uL [facility] Other Lymphocytes/100 WBC (Bld) 32.300 % . % [facility] Other MCH (RBC) [Entitic mass] 27.0000 pg Normal 24.7-34.3 pg [facility] Other MCV (RBC) [Entitic vol] 81.0000 fL Normal 80-100 fL [facility] Other Monocytes (Bld) [#/Vol] 0.126774120 10*3/uL Normal 0.0-0.8 10*3/uL [facility] Other Monocytes/100 WBC (Bld) 6.800 % . % [facility] Other Neutrophils (Bld) [#/Vol] 4.347595089 10*3/uL Normal 1.8-7.7 10*3/uL [facility] Other Neutrophils/100 WBC (Bld) 59.200 % . % [facility] Other Platelet mean volume (Bld) [Entitic vol] 7.2000 fL Normal 6.3-10.7 fL [facility] Other WBC (Bld) [#/Vol] 8.896785064 10*3/uL Normal 3.8 -11.6 10*3/uL [facility] Other Complete Blood Count Auto Diff 8.2 10*3/uL Normal 3.8-11.6 10*3/uL [facility] Other Complete Blood Count Auto Diff 33.3 g/dL Normal 32.0-35.0 g/dL [facility] Other Complete Blood Count Auto Diff 0.2 /100{WBC} Normal 0-0.5 /100{WBC} [facility] Other Complete Blood Count Auto Di ffOrdered By: Marcio Steven on 11-30-2022 Platelets (Bld) [#/Vol] 368 10*3/uL Normal 150-450 [facility] Comment on above: Performed By: #### B LEGAL PROCESS SPECIALIST, CK, CBC, HS TROP #### [facility] [address] [place] [address] RBC (Bld) [#/Vol] 5.06 10*6/uL High 3.60-5.00 [facility] Comment on above: Performed By: #### B LEGAL PROCESS SPECIALIST, CK, CBC, HS TROP #### [facility] [address] [place] [address] [place] Creatine kinase [Enzymatic a ctivity/volume] in Serum or PlasmaOrdered By: Marcio Steven on 11-30-2022 CK [Catalytic activity/Vol] 18 U/L Low 30-223 [facility] Comment on above: Performed By: #### B LEGAL PROCESS SPECIALIST, CK, CBC, HS TROP #### [facility] [address] [place] [address] [place] Creatinine [Mass/volume] in Serum or PlasmaOrdered By: Marcio Steven on 11-30-2022 Creatinine [Mass/Vol] 0.83 mg/dL Normal 0.60-1.20 [facility] Comment on above: Performed By: #### U A #### [place] [id number] [facility] D-Dimer High Sensitivityon 0 11-30-2022 D-Dimer High Sensitivity < 200 Normal 0-243 [facility] Comment on above: Result Comment: The reference range for D-dimer is <243 ng/mL D-dimer units. D-dimer results must be used in conjunction with a clinical pretest probability (PTP) assessment model for deep vein thrombosis (DVT) and pulmonary embolism (PE). Results <230 ng/mL d-dimer units can be used as a negative predictor in patients with low or moderate probability for DVT/PE. Results above the exclusion threshold of 230 ng/ml D-dimer units for DVT/PE may indicate the need for further diagnostic testing. D-Dimer can be increased in hospitalized patients due to co-morbid conditions. A hematocrit value greater than 55% may lead to inaccurate results in coagulation testing. Patients having hematocrit values >55% require a special collection tube for coagulation studies. Please contact the laboratory at [phone] for redraw instructions. PERFORMED BY: [place] [address] PATHOLOGIST SAP GATHERER ISAIAS DE LA CRUZ M.D. Performed By: #### U A #### [place] [id number] [facility] ECG 12 lead ECGon 11-30-2022 ECG 12 lead ECG [facility] [place] [address] [place] [address] Electrocardiograph Report Signed Patient: Karlene Vazquez MR#: [id number] : 1990 Acct:[id number] Age/Sex: 32 / F ADM Date: 11/30/22 Loc: ER Room: Type: [facility] ER Attending Dr: Ordering Provider: Marcio Steven, Date of Service: 11/30/22 ECG/ECG 12 lead ECG: Chest Pain Copies to: Test Reason : Blood Pressure : 081/053 mmHG Vent. Rate : 127 BPM Atrial Rate : 127 BPM P-R Int : 138 ms QRS Dur : 078 ms QT Int : 304 ms P-R-T Axes : 087 091 064 degrees QTc Int : 441 ms Sinus tachycardia Rightward axis Borderline ECG No previous ECGs available Confirmed by Marcio Steven DO ([id number]) on 11/30/2022 3:20:08 PM Referred By: Electronically Signed By:Marcio Steven DO Transcribed By: MUS Signed By Marcio Steven DO 3 1520 Normal [facility] Erythrocyte distribution wid th [Ratio] by Automated countOrdered By: Marcio Steven on 11-30-2022 Erythrocyte distribution width (RBC) [Ratio] 14.3 % Normal 11.9-15.3 [facility] Comment on above: Performed By: #### B LEGAL PROCESS SPECIALIST, CK, CBC, HS TROP #### [facility] [address] [place] [address] Fibrin D-dimer [Presence] in Platelet poor plasma by Latex agglutinationOrdered By: Marcio Steven on 11-30-2022 Fibrin D-dimer LA Ql (PPP) < 200 ng/mL 0-243 [facility] Comment on above: The reference range for D-dimer is <243 ng/mL D-dimer units.D-dimer results must be used in conjunction with a clinicalpretest probability (PTP) assessment model for deep veinthrombosis (DVT) and pulmonary embolism (PE). Results <230ng/mL d-dimer units can be used as a negative predictor inpatients with low or moderate probability for DVT/PE.Results above the exclusion threshold of 230 ng/ml D-dimerunits for DVT/PE may indicate the need for furtherdiagnostic testing.D-Dimer can be increased in hospitalized patients due toco-morbid conditions.A hematocrit value greater than 55% may lead to inaccurate results in coagulation testing. Patients having hematocrit values >55% require a special collection tube for coagulation studies. Please contact the laboratory at [phone] for redraw instructions. Free T4 (Free Thyroxine)on 0 11-30-2022 Free T4 [Mass/Vol] 1.89294149 ng/dL High 0.61- 1.12 ng/dL [facility] Other Glucose Glucometer (BldC) [M ass/Vol]Ordered By: Baljinder Polanco on 11-30-2022 Glucose [Mass/Vol] 100 mg/dL [facility] Comment on above: Random Glucose Refer ence Range is dependent on time and content of last meal. Glucose of more than 200 mg/dL in a nonstressed, ambulatory subject supports the diagnosis of Diabetes Mellitus. Glucose Poct Glucometerson 0 11-30-2022 Glucose [Mass/Vol] 100 mg/dL Normal [facility] Comment on above: Result Comment: [place] [facility] Glucose Reference Range is dependent on time and content of last meal. Glucose of more than 200 mg/dL in a nonstressed, ambulatory subject supports the diagnosis of Diabetes Mellitus. PERFORMED BY: [place] [address] PATHOLOGIST SAP GATHERER ISAIAS DE LA CRUZ M.D. Performed By: #### U A #### [address] Hematocrit [Volume Fraction] of Blood by Automated countOrdered By: Marcio Steven on 11-30-2022 Hematocrit (Bld) [Volume fraction] 41.0 % Normal 34.0-46.4 [facility] Comment on above: Performed By: #### B LEGAL PROCESS SPECIALIST, CK, CBC, HS TROP #### [address] Hemoglobin [Mass/volume] in BloodOrdered By: Marcio Steven on 11-30-2022 Hemoglobin (Bld) [Mass/Vol] 13.7 g/dL Normal 11.8-15.4 [facility] Comment on above: Performed By: #### B LEGAL PROCESS SPECIALIST, CK, CBC, HS TROP #### [address] Hepatic Panelon 11-30-2022 Albumin [Mass/Vol] 4.4 g/dL Normal 3.5-5.7 [facility] Comment on above: Performed By: #### U A #### [address] Bilirubin,Indirect 0.9 mg/dL Normal [facility] Comment on above: Performed By: #### U A #### [address] Bilirubin.indirect [Mass/Vol] 0.00 mg/dL Low 0.03-0.18 [facility] Comment on above: Result Comment: If t he DBIL is less than 0.1, IBIL is not able to be calculated. Performed By: #### U A #### [address] INR in Platelet poor plasma by Coagulation assayOrdered By: Marcio Steven on 11-30-2022 INR Coag (PPP) [Relative time] 1.1 {INR} [facility] Comment on above: INR Therapeutic Rang e A) Pre- and Peroperative OAT started two weeks before surgery. NOT HIP SURGERY: 1.5 - 2.5 HIP SURGERY: 2 - 3B) Primary and secondary prevention of venous THROMBOSIS: 2 - 3C) Active venous thrombosis, pulmonary embolismand prevention of recurrent venous thrombosis: 2 - 3D) Prevention of arterial thromboembolismincluding patients with mechanical heart valves: 3 - 4.5 Ketones Auto test strip (U) [Mass/Vol]Ordered By: Marcio Steven on 11-30-2022 Ketones (U) [Mass/Vol] Trace Negative [facility] Leukocytes [#/volume] correc jocelynn for nucleated erythrocytes in Blood by Automated counOrdered By: Marcio Steven on 11-30-2022 WBC corrected for nucl RBC Auto (Bld) [#/Vol] 8.2 10*3/uL 3.8-11.6 [facility] Leukocytes [#/volume] in Blo od by Automated countOrdered By: Marcio Steven on 11-30-2022 WBC (Bld) [#/Vol] 8.2 10*3/uL Normal 3.8-11.6 [facility] Comment on above: Performed By: #### B LEGAL PROCESS SPECIALIST, CK, CBC, HS TROP #### [facility] [address] [place] [address] [place] Lymphocytes [#/volume] in Bl ood by Automated countOrdered By: Marcio Steven on 11-30-2022 Lymphocytes (Bld) [#/Vol] 2.7 10*3/uL Normal 1.00-4.8 [facility] Comment on above: Performed By: #### B LEGAL PROCESS SPECIALIST, CK, CBC, HS TROP #### [facility] [address] Lymphocytes/100 leukocytes i n Blood by Automated countOrdered By: Marcio Steven on 11-30-2022 Lymphocytes/100 WBC (Bld) 32.3 % Normal . [facility] Comment on above: Performed By: #### B LEGAL PROCESS SPECIALIST, CK, CBC, HS TROP #### [address] MCH [Entitic mass] by Automa jocelynn countOrdered By: Marcio Steven on 11-30-2022 MCH (RBC) [Entitic mass] 27.0 pg Normal 24.7-34.3 [facility] Comment on above: Performed By: #### B LEGAL PROCESS SPECIALIST, CK, CBC, HS TROP #### [address] MCHC Auto (RBC) [Mass/Vol]Or dered By: Marcio Steven on 11-30-2022 MCHC (RBC) [Mass/Vol] 33.3 g/dL 32.0-35.0 [facility] MCV [Entitic volume] by Auto mated countOrdered By: Marcio Steven on 11-30-2022 MCV (RBC) [Entitic vol] 81.0 fL Normal 80-100 [facility] Comment on above: Performed By: #### B LEGAL PROCESS SPECIALIST, CK, CBC, HS TROP #### [address] Magnesium [Mass/volume] in S abdifatah or PlasmaOrdered By: Marcio Steven on 11-30-2022 Magnesium [Mass/Vol] 1.9 mg/dL Normal 1.9-2.7 [facility] Comment on above: Performed By: #### U A #### [address] Monocyte distribution width [Entitic volume] in Blood by AutomatedOrdered By: Marcio Steven on 11-30-2022 Monocyte distribution width Auto (Bld) [Entitic vol] 19.22 % 0.00-20.00 [facility] [facility] Neutrophils [#/volume] in Bl ood by Automated countOrdered By: Marcio Steven on 11-30-2022 Neutrophils (Bld) [#/Vol] 4.9 10*3/uL Normal 1.8-7.7 [facility] Comment on above: Performed By: #### B LEGAL PROCESS SPECIALIST, CK, CBC, HS TROP #### [facility] [address] Nitrite Test strip Ql (U)Ord ered By: Marcio Steven on 11-30-2022 Nitrite Ql (U) Negative Negative [facility] No Panel InformationOrdered By: Marcio Steven on 11-30-2022 Estimated GFR (CKD-EPI) > 60.0 mL/Min [facility] Creatinine Clearance (Chem 114.08 [facility] Nucleated erythrocytes [Pres ence] in Blood by Automated countOrdered By: Marcio Steven on 11-30-2022 Nucleated RBC Auto Ql (Bld) 0.2 /100{WBC} 0-0.5 [facility] Partial Thromboplastin Timeo n 11-30-2022 aPTT Coag (Bld) [Time] 32.4 s Normal 25.1-36.5 [facility] Comment on above: Result Comment: A he matocrit value greater than 55% may lead to inaccurate results in coagulation testing. Patients having hematocrit values >55% require a special collection tube for coagulation studies. Please contact the laboratory at [phone] for redraw instructions. Performed By: #### U A #### [facility] [address] Platelet mean volume [Entiti c volume] in Blood by Automated countOrdered By: Marcio Steven on 11-30-2022 Platelet mean volume (Bld) [Entitic vol] 7.2 fL Normal 6.3-10.7 [facility] Comment on above: Performed By: #### B LEGAL PROCESS SPECIALIST, CK, CBC, HS TROP #### [facility] [address] [place] [id number] [facility] Potassium [Moles/volume] in Serum or PlasmaOrdered By: Marcio Steven on 11-30-2022 Potassium [Moles/Vol] 4.1 mmol/L Normal 3.5-5.1 [facility] Comment on above: Performed By: #### U A #### [facility] [address] [place] [id number] [facility] Protein Auto test strip (U) [Mass/Vol]Ordered By: Marcio Steven on 11-30-2022 Protein (U) [Mass/Vol] Negative Negative [facility] Protein [Mass/volume] in Ser um or PlasmaOrdered By: Marcio Steven on 11-30-2022 Protein [Mass/Vol] 7.6 g/dL Normal 6.4-8.9 [facility] Comment on above: Performed By: #### U A #### [place] [id number] [facility] Prothrombin Time INRon 11-30 INR Coag (PPP) [Relative time] 1.1 {INR} Normal [facility] Comment on above: Result Comment: INR Therapeutic Range A) Pre- and Peroperative OAT started two weeks before surgery. NOT HIP SURGERY: 1.5 - 2.5 HIP SURGERY: 2 - 3 B) Primary and secondary prevention of venous THROMBOSIS: 2 - 3 C) Active venous thrombosis, pulmonary embolism and prevention of recurrent venous thrombosis: 2 - 3 D) Prevention of arterial thromboembolism including patients with mechanical heart valves: 3 - 4.5 Performed By: #### U A #### [place] [id number] [facility] PT Coag (PPP) [Time] 12.5 s Normal 9.0-12.9 [facility] Comment on above: Result Comment: A he matocrit value greater than 55% may lead to inaccurate results in coagulation testing. Patients having hematocrit values >55% require a special collection tube for coagulation studies. Please contact the laboratory at [phone] for redraw instructions. Performed By: #### U A #### [address] [place] [address] [facility] Prothrombin time (PT)Ordered By: Marcio Steven on 11-30-2022 PT Coag (PPP) [Time] 12.5 s 9.0-12.9 [facility] Comment on above: A hematocrit value g reater than 55% may lead to inaccurate results in coagulation testing. Patients having hematocrit values >55% require a special collection tube for coagulation studies. Please contact the laboratory at [phone] for redraw instructions. Respiratory (Upper) Panel, P CRon 11-30-2022 Respiratory (Upper) Panel, PCR Adenovirus Not detected Bordetella parapertussis Not detected Chlamydia pneumoniae Not detected Coronavirus 229E Not detected Coronavirus HKU1 Not detected Coronavirus NL63 Not detected Coronavirus OC43 Not detected Influenza A Not detected Influenza B Not detected Human Metapneumovirus Not detected Mycoplasma pneumoniae Not detected Parainfluenza Virus 1 Not detected Parainfluenza Virus 2 Not detected Parainfluenza Virus 3 Not detected Parainfluenza Virus 4 Not detected Bordetella pertussis-ptxP Not detected Human Rhino/Enterovirus Not detected Resp. Syncytial Virus Not detected COVID-19 Detected/Not Detected Not detected Blank Space ---- FLUA TEST INCLUDES Influenza A tests for the following clinically FLUA TEST INCLUDES significant subtypes: FLUA TEST INCLUDES - Influenza A FLUA TEST INCLUDES - Influenza A H1 FLUA TEST INCLUDES - Influenza A H1 2009 FLUA TEST INCLUDES - Influenza A H3 Blank Space ---- PERFORMED BY: [place] [id number] PATHOLOGIST SAP GATHERER ISAIAS DE LA CRUZ M.D. [facility] Comment on above: Performed By: #### R ZULEMA PANEL UPP., BIOFIRECOVNOTDE #### [facility] [address] [place] [address] Respiratory pathogens DNA an d RNA panel - Nasopharynx by LEO with non-probe detectionOrdered By: Marcio Steven on 11-30-2022 Respiratory pathogens DNA and RNA panel LEO+non-probe (Nph) [facility] Serum globulin measurement b y calculation (mass/volume)Ordered By: Marcio Steven on 11-30-2022 Globulin (S) [Mass/Vol] 3.2 g/dL [facility] Comment on above: Performed By: #### U A #### [facility] [address] [place] [address] Serum or plasma albumin/glob ulin mass ratioOrdered By: Marcio Steven on 11-30-2022 Albumin/Globulin [Mass ratio] 1.4 {ratio} [facility] Comment on above: Performed By: #### U A #### [facility] [address] [place] [address] Serum or plasma anion gap de terminationOrdered By: Marcio Steven on 11-30-2022 Anion gap [Moles/Vol] 14.2 mmol/L Normal 6.0-15.0 [facility] Comment on above: Performed By: #### U A #### [facility] [address] [place] [address] Serum or plasma non-glucuron idated bilirubin measurement (mass/volume)Ordered By: Marcio Steven on 11-30-2022 Bilirubin.indirect [Mass/Vol] 0.9 mg/dL [facility] Specific gravity Auto test s trip (U) [Rel density]Ordered By: Marcio Steven on 11-30-2022 Specific gravity (U) [Rel density] 1.013 1.001-1.03 0 [facility] Thyroid Stimulating Hormoneo n 11-30-2022 TSH Qn [id number] m[IU]/L Low 0.45-5 .33 u[iU]/mL [facility] Other Thyrotropin [Units/volume] i n Serum or PlasmaOrdered By: Marcio Steven on 11-30-2022 TSH Qn 0.03 m[IU]/L Low 0.45-5.33 [facility] Comment on above: Result Comment: PERF ORMED BY: [place] [address] PATHOLOGIST SAP GATHERER ISAIAS DE LA CRUZ M.D. Performed By: #### U A #### [facility] [address] [place] [address] Thyroxine (T4) free [Mass/vo lume] in Serum or PlasmaOrdered By: Marcio Steven on 11-30-2022 Free T4 [Mass/Vol] 1.56 ng/dL High 0.61-1.12 [facility] Comment on above: Performed By: #### U A #### [address] Triiodothyronine (T3) Freeon 11-30-2022 Triiodothyronine (T3) Free 3.89 pg/mL Normal 2.50-3.90 [facility] Comment on above: Result Comment: PERF ORMED BY: [place] [address] PATHOLOGIST SAP GATHERER ISAIAS DE LA CRUZ M.D. Performed By: #### P TT, MG, T3F, DDIMER, T4F, BMP, PT, TSH3, HEPATIC ####[facility] [address] [place] [address] Triiodothyronine (T3) Free [ Mass/volume] in Serum or PlasmaOrdered By: Marcio Steven on 11-30-2022 Free T3 [Mass/Vol] 3.89 pg/mL 2.50-3.90 [facility] Troponin I High Sensitivityo n 11-30-2022 Troponin I High Sensitivity 38.7 pg/mL High 0.0-15.0 [facility] Comment on above: Result Comment: PERF ORMED BY: [facility] [address] [place] [address] PATHOLOGIST SAP GATHERER ISAIAS DE LA CRUZ M.D. Performed By: #### U A #### [facility] [address] [place] [address] US liveron 11-30-2022 US liver [facility] Main [place] [address] [place] [address] Ultrasound Report Signed Patient: Karlene Vazquez MR#: [id number] : 1990 Acct:[id number] Age/Sex: 32 / F ADM Date: 11/30/22 Loc: Room: [address] [place] [address] Type: ADM IN Attending Dr: Baljinder Polanco MD Ordering Provider: Baljinder Polanco MD Date of Service: 11/30/22 US/US liver: ruq pain Copies to: Baljidner Polanco MD EXAMINATION TYPE: US liver DATE OF EXAM ORDERED: 11/30/2022 4:31 PM HISTORY: Right upper quadrant and chest pain for 4 days COMPARISON: NONE TECHNIQUE: Realtime imaging limited to the right upper quadrant was performed. FINDINGS: The gallbladder has been removed. The common bile but measures 5 mm in diameter. No intrahepatic or extrahepatic biliary dilatation is seen. The liver is normal in echo reflectivity. Hepatopedal flow is noted in the main portal vein. Partial visualization of the right kidney reveals no gross hydronephrosis. Partial visualization of the pancreas reveals no abnormality. ? US/US liver IMPRESSION: Status post cholecystectomy. No intrahepatic or extrahepatic biliary ductal dilatation. Impression dictated by: Crow Ramos M.D.11/30/2022 5:27 PM Dictation Location: [place] [address] Tech: Ophelia Queen Transcribed By: TORITO 11/30/221726 Dictated By: Crow Ramos II, MD 11/30/221725 Signed By: 11/30/221726 Normal [facility] Urinalysison 11-30-2022 Appearance (U) Clear Normal Clear [facility] Comment on above: Order Comment: Name Collection Type:: Clean-Voided Midstream Performed By: #### U A #### [place] [id number] [facility] Bilirubin,Urine Negative Normal Negative [facility] Comment on above: Order Comment: Name Collection Type:: Clean-Voided Midstream Performed By: #### U A #### [facility] [address] [place] [address] [place] Color (U) Yellow Normal Yellow [facility] Comment on above: Order Comment: Name Collection Type:: Clean-Voided Midstream Performed By: #### U A #### [place] [address] [place] Glucose Ql (U) Normal Normal Normal [facility] Comment on above: Order Comment: Name Collection Type:: Clean-Voided Midstream Performed By: #### U A #### [facility] [address] [place] [address] [place] Ketones Ql (U) Trace High Negative [facility] Comment on above: Order Comment: Name Collection Type:: Clean-Voided Midstream Performed By: #### U A #### [address] Leukocyte esterase Test strip Ql (U) Negative Normal Negative [facility] Comment on above: Order Comment: Name Collection Type:: Clean-Voided Midstream Performed By: #### U A #### [place] [address] [place] Nitrite,Urine Negative Normal Negative [facility] Comment on above: Order Comment: Name Collection Type:: Clean-Voided Midstream Performed By: #### U A #### [place] [address] [place] Occult Blood,Urine Negative Normal Negative [facility] Comment on above: Order Comment: Name Collection Type:: Clean-Voided Midstream Result Comment: PERF ORMED BY: [place] [address] PATHOLOGIST SAP GATHERER ISAIAS DE LA CRUZ M.D. Performed By: #### U A #### [facility] [address] [place] [address] [place] pH (U) [pH] Normal 5.0-9.0 [facility] Comment on above: Order Comment: Name Collection Type:: Clean-Voided Midstream Performed By: #### U A #### [facility] [address] [place] [address] [place] Protein,Urine Negative Normal Negative [facility] Comment on above: Order Comment: Name Collection Type:: Clean-Voided Midstream Performed By: #### U A #### [facility] [address] [place] [address] Specificy [place],Urine 1.013 Normal 1.001-1.03 0 [facility] Comment on above: Order Comment: Name Collection Type:: Clean-Voided Midstream Performed By: #### U A #### [facility] [address] [place] [address] Urobilinogen,Urine Normal Normal Normal [facility] Comment on above: Order Comment: Name Collection Type:: Clean-Voided Midstream Performed By: #### U A #### [facility] [address] [place] [address] Urine clarity by refractomet ry automatedOrdered By: Marcio Steven on 11-30-2022 Clarity Refractometry automated (U) Clear Clear [facility] Urine glucose measurement by automated test strip (mass/volume)Ordered By: Marcio Steven on 11-30-2022 Glucose Auto test strip (U) [Mass/Vol] Normal mg/dL Normal [facility] Urine hemoglobin detection b y automated test stripOrdered By: Marcio Steven on 11-30-2022 Hemoglobin Auto test strip Ql (U) Negative Negative [facility] Urine leukocyte esterase det ection by automated test stripOrdered By: Marcio Steven on 11-30-2022 Leukocyte esterase Auto test strip Ql (U) Negative Negative [facility] Urobilinogen Auto test strip (U) [Mass/Vol]Ordered By: Marcio Steven on 11-30-2022 Urobilinogen (U) [Mass/Vol] Normal mg/dL Normal [facility] XR chest 1V portableon 11-30 XR chest 1V portable [facility] [place] [address] XRay Report Signed Patient: Karlene Vazquez MR#: [id number] : 1990 Acct:[id number] Age/Sex: 32 / F ADM Date: 11/30/22 Loc: ER Room: Type: [facility] ER Attending Dr: Copies to: Marcio Steven DO Ordering Provider: Marcio Steven DO Date of Service: 11/30/22 XR/XR chest 1V portable: Chest Pain Plain film chest single view HISTORY: Right-sided chest pain and shortness of breath for 4 days COMPARISON: None FINDINGS: SUPPORT DEVICES: None POSTSURGICAL CHANGES: None HEART: Within normal limits PULMONARY CORIE: Within normal limits MEDIASTINUM: Unremarkable LUNGS AND PLEURA: No acute lung process, pleural effusion or pneumothorax identified. BONY STRUCTURES: Intact ADDITIONAL FINDINGS None XR/XR chest 1V portable IMPRESSION: No acute process. Impression dictated by: Jovan Martin M.D.11/30/2022 1:58 PM Dictation Location: [place] [address] Transcribed By: [facility] 11/30/22 1358 Dictated By: Jovan Martin DO 11/30/22 1351 Signed By: 11/30/22 1358 Normal [facility] pH Auto test strip (U)Ordere d By: Marcio Steven on 11-30-2022 pH (U) [pH] 5.0-9.0 [facility] CORTISOL FREE, SERUMon 06-17 Cortisol, Free Dialysis, LCMS 0.649 ug/dL Normal [facility] Comment on above: Result Comment: Thes e tests were developed and their performance characteristics determined by [facility]. They have not been cleared or approved by the Food and Drug Administration. Reference Range: 8 AM 0.10 - 1.20 4 PM 0.042 - 0.872 Performed By: #### R [id number] #### [facility] [address] [place] [address] Dr. Dimple Parsons CBC AUTO DIFFon 06-16-2022 BASO # 0.1 103/ul Normal 0.0-0.1 [facility] Comment on above: Performed By: #### R [id number] #### [facility] [address] [place] [address] Dr. Dimple Parsons Basophils/100 WBC (Bld) 0.6 % Normal 0.2-2.0 [facility] Comment on above: Performed By: #### R [id number] #### [facility] [address] [place] [address] Dr. Dimple Parsons EO # 0.4 103/ul Normal 0.0-0.7 [facility] Comment on above: Performed By: #### R EVRT3 #### [facility] [address] [place] [address] Dr. Dimple Parsons Eosinophils/100 WBC (Bld) 4.0 % Normal 0.9-7.0 [facility] Comment on above: Performed By: #### R EVRT3 #### [facility] [address] [place] [address] Dr. Dimple Parsons Erythrocyte distribution width (RBC) [Ratio] 13.8 % Normal 11.0-15.0 [facility] Comment on above: Performed By: #### R EVRT3 #### [facility] [address] [place] [address] Dr. Dimple Parsons Hematocrit (Bld) [Volume fraction] 39.8 % Normal 36.0-48.0 [facility] Comment on above: Performed By: #### R EVRT3 #### [facility] [address] [place] [address] Dr. Dimple Parsons Hemoglobin (Bld) [Mass/Vol] 12.9 g/dL Normal 12.0-16.0 [facility] Comment on above: Performed By: #### R EVRT3 #### [facility] [address] [place] [address] Dr. Dimple Parsons IG # 0.02 10e3/ul Normal 0.00-0.03 [facility] Comment on above: Performed By: #### R EVRT3 #### [facility] [address] [place] [address] Dr. Dimple Parsons IG % 0.2 % Normal 0.0-0.5 [facility] Comment on above: Performed By: #### R EVRT3 #### [facility] [address] [place] [address] Dr. Dimple Parsons LYMPH # 3.1 103/ul Normal 1.2-3.8 [facility] Comment on above: Performed By: #### R EVRT3 #### [facility] [address] [place] [address] [address] Dimple Parsons Lymphocytes/100 WBC (Bld) 33.5 % Normal 20.5-60.0 [facility] Comment on above: Performed By: #### R EVRT3 #### [facility] [address] [place] [address] [address] Dimple Parsons MANUAL DIFF REQ NO Normal [facility] Comment on above: Performed By: #### R EVRT3 #### [facility] [address] [place] [address] [address] Dimple Parsons MCH (RBC) [Entitic mass] 26.1 pg Critically low 26.7-34.0 [facility] Comment on above: Performed By: #### R [id number] #### [facility] [address] [place] [address] Dr. Dimple Parsons MCHC (RBC) [Mass/Vol] 32.4 g/dL Normal 29.9-35.2 [facility] Comment on above: Performed By: #### R EVRT3 #### [facility] [address] [place] [address] Dr. Dimple Parsons MCV (RBC) [Entitic vol] 80.4 fL Critically low 81.0-99.0 [facility] Comment on above: Performed By: #### R [id number] #### [facility] [address] [place] [address] Dr. Dimple Parsons MONO # 0.5 103/ul Normal 0.3-0.8 [facility] Comment on above: Performed By: #### R EVRT3 #### [facility] [address] [place] [address] Dr. Dimple Parsons Monocytes/100 WBC (Bld) 5.2 % Normal 1.7-12.0 [facility] Comment on above: Performed By: #### R EVRT3 #### [facility] [address] [place] [address] Dr. Dimple Parsons NEUT # 5.2 103/ul Normal 1.4-6.5 [facility] Comment on above: Performed By: #### R EVRT3 #### [facility] [address] [place] [address] Dr. Dimple Parsons Neutrophils/100 WBC (Bld) 56.5 % Normal 43.0-75.0 [facility] Comment on above: Performed By: #### R EVRT3 #### [facility] [address] [place] [address] [address] Dimple Parsons Platelet mean volume (Bld) [Entitic vol] 8.7 fL Critically low 9.5-13.5 [facility] Comment on above: Performed By: #### R [id number] #### [facility] [address] [place] [address] Dr. Dimple Parsons PLT 376 103/ul Normal 150-450 [facility] Comment on above: Performed By: #### R [id number] #### [facility] [address] [place] [address] Dr. Dimple Parsons RBC 4.95 106/ul Normal 4.20-5.40 [facility] Comment on above: Performed By: #### R EVRT3 #### [facility] [address] [place] [address] Dr. Dimple Parsons WBC 9.3 103/ul Normal 4.0-11.0 [facility] Comment on above: Performed By: #### R [id number] #### [facility] [address] [place] [address] Dr. Dimple Parsons TESTOSTERONE, FREE,DIRECT, T OTALon 06-10-2022 Free Testosterone(Direct) 1.6 pg/mL Normal 0.0-4.2 [facility] Comment on above: Result Comment: Perf ormed at: BN Performed By: #### C BC #### [facility] [address] [place] [address] Dr. Dimple Parsons Testosterone [Mass/Vol] 22 ng/dL Normal 8-60 [facility] Comment on above: Result Comment: Perf ormed at: CB Performed By: #### C BC #### [facility] [address] [place] [address] Dr. Dimple Parsons ESTROGENon 2022 Estrogens, Total 413 pg/mL Normal [facility] Comment on above: Result Comment: Prep ubertal < 40 Female Cycle: 1-10 Days 16 - 328 11-20 Days 34 - 501 21-30 Days 48 - 350 Post-Menopausal 40 - 244 Performed By: #### Inder CADENA #### [facility] [address] [place] [address] [address] Dimple Parsons SEROTONINon 2022 Serotonin, Serum 20 ng/mL Critically low 31-207 [facility] Comment on above: Performed By: #### S EROTON #### [facility] [address] [place] [address] [address] Dimple Parsons REVERSE T3on 06-08-2022 Reverse T3, Serum 15.6 ng/dL Normal 9.2-24.1 [facility] Comment on above: Result Comment: This test was developed and its performance characteristics determined by [employer] It has not been cleared or approved by the Food and Drug Administration. Performed By: #### R [id number] #### [facility] [address] [place] [address] [address] Dimple Parsons VIT D 1 25 DIHYDROXYon 06-07 Calcitriol(1,25 di-OH Vit D) 12.2 pg/mL Critically low 24.8-81.5 [facility] Comment on above: Performed By: #### Michael [id number] #### [facility] [address] [place] [address] [address] Dimple Parsons C-PEPTIDE, SERUMon 3 C-Peptide, Serum 3.3 ng/mL Normal 1.1-4.4 [facility] Comment on above: Result Comment: C-Pe ptide reference interval is for fasting patients. Performed By: #### R [id number] #### [facility] [address] [place] [address] Dr. Dimple Parsons DHEA-SULFATEon 06-05-2022 DHEA-Sulfate 154.0 ug/dL Normal 84.8-378.0 [facility] Comment on above: Performed By: #### Inder CADENA #### [facility] [address] [address] [address] Dimple Parsons ESTRADIOLon 06-05-2022 Estradiol 117.0 pg/mL Normal [facility] Comment on above: Result Comment: Adul t Female: Follicular phase 12.5 - 166.0 Ovulation phase 85.8 - 498.0 Luteal phase 43.8 - 211.0 Postmenopausal <6.0 - 54.7 1st trimester 215.0 - >4300.0 [employer] ECLIA methodology Performed By: #### R [id number] #### [facility] [address] [place] [address] Dr. Dimple Parsons INSULINon 06-05-2022 Insulin 13.1 uIU/mL Normal 2.6-24.9 [facility] Comment on above: Performed By: #### C BC #### [facility] [address] [place] [address] Dr. Dimple Parsosn PROGESTERONEon 06-05-2022 Progesterone 4.8 ng/mL Normal [facility] Comment on above: Result Comment: Foll icular phase 0.1 - 0.9 Luteal phase 1.8 - 23.9 Ovulation phase 0.1 - 12.0 First trimester 11.0 - 44.3 Second trimester 25.4 - 83.3 Third trimester 58.7 - 214.0 Postmenopausal 0.0 - 0.1 Performed By: #### D SURINDER #### [facility] [address] [place] [address] Dr. Dimple Parsons SEX HORMONE-BINDING GLOBULIN on 06-05-2022 Sex Horm Binding Glob, Serum 40.7 nmol/L Normal 24.6-122.0 [facility] [place] Comment on above: Performed By: #### C BC #### [facility] [address] [place] [address] Dr. Dimple Parsons T3, TOTAL (TRIIODOTHYRONINE) on 06-05-2022 T3, TOTAL 89 ng/dL Normal 71-180 [facility] [place] Comment on above: Performed By: #### R EVRT3 #### [facility] [address] [place] [address] Dr. Dimple Parsons THYROID PEROXIDASE ABon 05-13 Thyroid Peroxidase (TPO) Ab 12 IU/mL Normal 0-34 [facility] Comment on above: Performed By: #### Inder CADENA #### [facility] [address] [place] [address] Dr. Dimple Parsons FERRITINon 06-04-2022 Ferritin [Mass/Vol] 193.0 ng/mL Critically high 6.2-137.0 [facility] Comment on above: Performed By: #### Inder CADENA #### [facility] [address] [place] [address] Dr. Dimple Parsons FREE T3on 06-04-2022 FREE T3 2.24 pg/mlL Normal 2.18-3.98 [facility] Comment on above: Performed By: #### Rob PABONRT3 #### [facility] [address] [place] [address] Dr. Dimple Parsons FREE T4on 06-04-2022 Free T4 [Mass/Vol] 1.14 ng/dL Normal 0.76-1.46 [facility] Comment on above: Performed By: #### Inder CADENA #### [facility] [address] [place] [address] Dr. Dimple Parsons GLUCOSE BLOODon 06-04-2022 Glucose [Mass/Vol] 92 mg/dL Normal 74-106 [facility] Comment on above: Performed By: #### Rob PABONRT3 #### [facility] [address] [place] [address] Dr. Dimple Prasons GLYCOHEMOGLOBIN A1Con 2022 ADA RECOMMENDATION SEE BELOW Normal [facility] Comment on above: Result Comment: ADA RECOMMENDED LIMIT 4.0 - 6.0 ADA THERAPEUTIC TARGET < 7.0 ACTION SUGGESTED > 7.0 Performed By: #### A 1C #### [facility] [address] [place] [address] Dr. Dimple Parsons Glucose [Mass/Vol] 100 mg/dL Normal [facility] Comment on above: Performed By: #### A 1C #### [facility] [address] [place] [address] Dr. Dimple Parsons HbA1c (Bld) [Mass fraction] 5.1 % Normal 4.5-6.2 [facility] [place] Comment on above: Performed By: #### A 1C #### [facility] [address] [place] [address] Dr. Dimple Parsons T4on 06-04-2022 T4 [Mass/Vol] 8.60 ug/dL Normal 4.80-13.90 [facility] Comment on above: Performed By: #### R EVRT3 #### [facility] [address] [place] [address] Dr. Dimple Parsons TSHon 06-04-2022 TSH 0.442 uIU/mL Normal 0.358-3.74 0 [facility] [place] Comment on above: Performed By: #### R EVRT3 #### [facility] [address] [place] [address] Dr. Dimple Parsons US PELVIS AND TRANSVAGon US PELVIS AND TRANSVAG EXAM: US PELVIS A ND TRANSVAG HISTORY: Cyst of left ovary COMPARISON: Pelvic ultrasound 05/08/2022. TECHNIQUE: Real-time transabdominal entranced vaginal imaging of the pelvis. Findings: The uterus is surgically absent. The right and left ovaries measure 2.8 x 2.5 x 2.2 and 3.3 x 3.1 x 2.3 cm. Within the right ovary there is a 1.9 x 1.8 x 1.3 cm anechoic lesion with posterior acoustic enhancement most consistent with a simple cyst. Within the left ovary there is a 1.3 x 1.3 cm complex cystic lesion. Blood flows identified bilateral ovaries. No adnexal mass or free pelvic fluid. IMPRESSION: 1. Simple right ovarian cyst. 2. Complex cystic left ovarian lesion likely relates to an involuting hemorrhagic cysts. If indicated, suggest follow-up ultrasound in 6 weeks to assess for complete resolution. Electronically authenticated by: KAYLA ACOSTA Date: 2022-05-25 13:36 Normal [facility] [place] RAD - MISCon 05-24-2022 RAD - MISC [id number]:12 7 Normal [facility] Ambulatory Visit Summaryon 0 05-21-2022 Ambulatory Visit Summary KARLENE VAZQUEZ :1990 Visit Date:05/21/2022 Ambulatory Visit Instructions Your Diagnosis Ureteral stone Kidney stone Stress incontinence Tests Performed Urnls Dip Stick Auto w/o Microscopy POC 25713 Your Care Team Attending Physician - Kamaljit ROMERO MD Primary Care Physician - SURYA HODGES MD This Is Your Medications List Contact prescribing physician if questions or concerns citalopram (Celexa) fluoxetine (Prozac) levothyroxine (Synthroid 150 mcg (0.15 mg) Tab) ondansetron (Zofran) tirzepatide (Mounjaro 2.5 mg/0.5 mL subcutaneous solution) [Image Removed: STOP]Stop taking these medications estradiol (estradiol 0.5 mg Tab) Procedures Performed Injection of urethra (01/19/2022), Ablation of uterine fibroid using magnetic resonance imaging guidance, Appendectomy, Cholecystectomy, Hysterectomy. Discharge Vitals Heart Rate (Peripheral) 85 Blood Pressure 119/80 Height 176 cm Height 69 in Weight 86.8 kg Weight 190.96 lb BMI 28.02 What to do next Scheduled Follow-Up Appointments Tuesday 8:00 AM EDT With: LUCY STILES, Kamaljit Rivas Where: [facility] Patient Educationon 05-22-19 Patient Education Urology Kidney Stones Kidney stones are rock-like masses that form inside of the kidneys. Kidneys are organs that make pee (urine). A kidney stone may move into other parts of the urinary tract, including: ? The tubes that connect the kidneys to the bladder (ureters). ? The bladder. ? The tube that carries urine out of the body (urethra). Kidney stones can cause very bad pain and can block the flow of pee. The stone usually leaves your body (passes) through your pee. You may need to have a doctor take out the stone. What are the causes? Kidney stones may be caused by: ? A condition in which certain glands make too much parathyroid hormone (primary hyperparathyroidism). ? A buildup of a type of crystals in the bladder made of a chemical called uric acid. The body makes uric acid when you eat certain foods. ? Narrowing (stricture) of one or both of the ureters. ? A kidney blockage that you were born with. ? Past surgery on the kidney or the ureters, such as gastric bypass surgery. What increases the risk? You are more likely to develop this condition if: ? You have had a kidney stone in the past. ? You have a family history of kidney stones. ? You do not drink enough water. ? You eat a diet that is high in protein, salt (sodium), or sugar. ? You are overweight or very overweight (obese). What are the signs or symptoms? Symptoms of a kidney stone may include: ? Pain in the side of the belly, right below the ribs (flank pain). Pain usually spreads (radiates) to the groin. ? Needing to pee often or right away (urgently). ? Pain when going pee (urinating). ? Blood in your pee (hematuria). ? Feeling like you may vomit (nauseous). ? Vomiting. ? Fever and chills. How is this treated? Treatment depends on the size, location, and makeup of the kidney stones. The stones will often pass out of the body through peeing. You may need to: ? Drink more fluid to help pass the stone. In some cases, you may be given fluids through an IV tube put into one of your veins at the hospital. ? Take medicine for pain. ? Make changes in your diet to help keep kidney stones from coming back. Sometimes, medical procedures are needed to remove a kidney stone. This may involve: ? A procedure to break up kidney stones using a beam of light (laser) or shock waves. ? Surgery to remove the kidney stones. Follow these instructions at home: Medicines ? Take ubmo-lqw-pbmpofb and prescription medicines only as told by your doctor. ? Ask your doctor if the medicine prescribed to you requires you to avoid driving or using heavy machinery. Eating and drinking ? Drink enough fluid to keep your pee pale yellow. You may be told to drink at least 8?10 glasses of water each day. This will help you pass the stone. ? If told by your doctor, change your diet. This may include: ? Limiting how much salt you eat. ? Eating more fruits and vegetables. ? Limiting how much meat, poultry, fish, and eggs you eat. ? Follow instructions from your doctor about eating or drinking restrictions. General instructions ? Collect pee samples as told by your doctor. You may need to collect a pee sample: ? 24 hours after a stone comes out. ? 8?12 weeks after a stone comes out, and every 6?12 months after that. ? Strain your pee every time you pee (urinate), for as long as told. Use the strainer that your doctor recommends. ? Do not throw out the stone. Keep it so that it can be tested by your doctor. ? Keep all follow-up visits as told by your doctor. This is important. You may need follow-up tests. How is this prevented? To prevent another kidney stone: ? Drink enough fluid to keep your pee pale yellow. This is the best way to prevent kidney stones. ? Eat healthy foods. ? Avoid certain foods as told by your doctor. You may be told to eat less protein. ? Stay at a healthy weight. Where to find more information ? National Kidney Foundation (NKF): www.kidney.org ? [employer] (UCF): www.urologyhealth.org Contact a doctor if: ? You have pain that gets worse or does not get better with medicine. Get help right away if: ? You have a fever or chills. ? You get very bad pain. ? You get new pain in your belly (abdomen). ? You pass out (faint). ? You cannot pee. Summary ? Kidney stones are rock-like masses that form inside of the kidneys. ? Kidney stones can cause very bad pain and can block the flow of pee. ? The stones will often pass out of the body through peeing. ? Drink enough fluid to keep your pee pale yellow. This information is not intended to replace advice given to you by your health care provider. Make sure you discuss any questions you have with your health care provider. Document Released: 08/16/2008 Document Revised: 07/17/2019 Document Reviewed: 07/17/2019 [employer] Patient Education ? 2019 [employer] [facility] Urology Office/Clinic Noteon 05-21-2022 Urology Office/Clinic Note Chief Complaint Pt here for ER follow up 05-08-22 HPI Staff F/U to [place] ER visit 05/08/22 due to [address] Stone. CT & Transvaginal US done 05/08/22. Pt last seen in our office 01/13/22 by SULEMA due to stress incontinence. S/P Bulkamid by DR Mirza on 01/19/22. Dysuria: no Incomplete bladder emptying: _no Hematuria: no Frequency: no Urgency: no Nocturia: 1x Stream: normal Leaking: no Post void dripping: no Wearing pads/ Depends: no Urge incontinence: no Stress incontinence: no Abdominal pain: no Flank pain: no History of Present Illness Tests reviewed: Reviewed UA, KUB, and ER records. I have reviewed the previous health record information and history for this patient from Dr. Romero. I have reviewed and verified the staff HPI to be accurate for this encounter. There have been no associated fever, chills, flank pain, or blood in the urine. Denies any urinary infections since last encounter. Review of Systems PHQ Score Initial Depression Screen Score: 0 ROS - Provider Constitutional: denies weight loss, denies hot flashes. Eyes: denies eye problems. Gastrointestinal: denies nausea, denies vomiting. Cardiovascular: denies chest pain or angina. Integumentary: no dryness Musculoskeletal: denies musculoskeletal symptoms. ENMT: denies otolaryngeal symptoms. Respiratory: no shortness of breath. Heme/Lymph: denies easy bleeding tendency, denies easy bruising tendency. Psychiatric: no confusion, no anxiety. Genitourinary: denies vaginal discharge, denies incontinence, denies dysuria, denies hematuria, denies urinary frequency, denies amenorrhea, denies menorrhagia, denies abnormal bleeding, denies pelvic pain, denies genital sores, and denies decreased libido. Physical Exam Vitals & Measurements HR: 85(Peripheral) BP: 119/80 HT: 69 in HT: 176 cm WT: 86.8 kg WT: 190.96 lb BMI: 28.02 General Appearance: alert , no acute distress, well nourished, well developed female. Genitourinary: bladder nonpalpable, tender on right flank Assessment/Plan 1. Ureteral stone (N20.1: Calculus of ureter) Presented to [facility] ER 05/08/22 with sudden onset right flank pain radiating to lower abdomen. CT AP w/o contrast shows moderate right-sided hydroureteronephrosis, secondary to a 4.2 mm calculus at the right UVJ. KUB 05/20/22 image reviewed. Pt. states she has been taking Ibuprofen and Flomax. Has been straining her urine unless she is at work. States her pain has drastically improved, but is still experiencing some tenderness. UA today shows no signs of blood. States this was her first stone episode. Pt. understands there is a chance she may still have the stone even without pain or blood in urine. Discussed if she would develop severe right flank pain again to call our office. Pt. to continue straining urine. Will complete metabolic w/up due to pt. having more than one stone. Recommended pt. to increase fluid intake to ten to twelve 16oz bottles a day; preferably water, clear pop, and sugar free lemonade. Follow up in 3 months with met w/up. All questions/concerns were discussed. Pt. to call the office if she encounters any issues prior. Pt. acknowledges understanding. 2. Kidney stone (N20.0: Calculus of kidney) CT AP wo contrast 05/08/22 left kidney has a punctate calculus in it's interpolar region. No visible left ureteral calculi or hydro. Right kidney has a 2 mm calculus in it's lower pole. 3. Stress incontinence (N39.3: Stress incontinence (female) (male)) S/p Bulkamid with Dr. Mirza 01/19/22. Follow-up With When Contact Information LUCY STILES, Kamaljit Rivas, [place] [id number]- Additional Instructions: 3 months to review met w/up Patient Education Kidney Stones, Yszg-bu-Niwu Marce Malin, personally scribed for Dr. Romero on 05/21/2022 10:47:06. . Documentation recorded by the scribeMarce, accurately reflects the services(s) I performed and decisions made by me. Authenticated by Dr. Romero on 05/21/2022 10:56:23. Problem List/Past Medical History Ongoing Anxiety Hypothyroidism Kidney stone Stress incontinence Ureteral stone Urinary, incontinence, stress female Historical Acute upper respiratory infection, unspecified Procedure/Surgical History Injection of urethra (01/19/2022), Ablation of uterine fibroid using magnetic resonance imaging guidance, Appendectomy, Cholecystectomy, Hysterectomy. Medications Celexa estradiol 0.5 mg Tab, Oral, Daily, Not taking Mounjaro 2.5 mg/0.5 mL subcutaneous solution, SubCutaneous, qWeek Prozac, Oral, Daily, Not taking Synthroid 150 mcg (0.15 mg) Tab Zofran Allergies azithromycin (Eruption) clindamycin (Unknown) tetanus/diphth/pertuss (Tdap) adult/adol (Unknown) Social History Tobacco Never (less than 100 in lifetime) Tobacco Use:. Never Smokeless Tobacco Use:., 05/21/2022 Family History Family history is negative (more content not included)... Normal [facility] Comment on above: Result Comment: Elec tronically Signed By: Kamaljit ROMERO MD\.br\Date and Time Signed: 05/21/22 10:56 EST\.br\Electronically Co-Signed By: Marce Mccarthy\.br\Date and Time Co-Signed: 05/21/22 10:49 EST\.br\Electronically Co-Signed By: Marce Mccarthy\.br\Date and Time Co-Signed: 05/21/22 10:50 EST\.br\Electronically Co-Signed By: Marce Mccarthy\.br\Date and Time Co-Signed: 05/21/22 10:52 EST XR KUB 1 VIEWon 05-21-2022 XR KUB 1 VIEW EXAMINATION: XR KUB 1 VIEW HISTORY: Kidney stone COMPARISON: CT abdomen pelvis 05/08/2022 FINDINGS: KIDNEY/URETER - RIGHT: No visible renal or ureteral calcifications. KIDNEY/URETER - LEFT: No visible renal or ureteral calcifications. PELVIS: No visible ureteral stones. Stable small atherosclerotic calcification within lateral left pelvis. BOWEL: No abnormal dilation or deviation. BONES: No acute abnormality. OTHER: Negative. No abnormal gaseous collections. IMPRESSION: 1. No appreciable urinary tract calculi. Electronically authenticated by: DAVID ALDANA Date: 2022-05-21 06:53 Normal [facility] ED Note-Physicianon 05-17-19 ED Note-Physician [id number]:1 27 Normal [facility] RAD - CT Reporton 05-16-2022 RAD - CT Report [id number]#[id number]:12 7 Normal [facility] RAD - Ultrasound Reporton RAD - Ultrasound Report [id number]:1 27 Normal [facility] CBC AUTO DIFFon 05-08-2022 BASO # 0.0 103/ul Normal 0.0-0.1 [facility] Comment on above: Performed By: #### C BC #### [facility] [address] [place] [address] Dr. Dimple Parsons Basophils/100 WBC (Bld) 0.3 % Normal 0.2-2.0 [facility] [place] Comment on above: Performed By: #### C BC #### [facility] [address] [place] [address] Dr. Dimple Parsons EO # 0.2 103/ul Normal 0.0-0.7 [facility] [place] Comment on above: Performed By: #### C BC #### [facility] [address] [place] [address] Dr. Dimple Pasrons Eosinophils/100 WBC (Bld) 1.3 % Normal 0.9-7.0 [facility] [place] Comment on above: Performed By: #### C BC #### [facility] [address] [place] [address] Dr. Dimple Parsnos Erythrocyte distribution width (RBC) [Ratio] 13.9 % Normal 11.0-15.0 [facility] [place] Comment on above: Performed By: #### C BC #### [facility] [address] [place] [address] Dr. Dimple Parsons Hematocrit (Bld) [Volume fraction] 38.8 % Normal 36.0-48.0 [facility] [place] Comment on above: Performed By: #### C BC #### [facility] [address] [place] [address] Dr. Dimple Parsons Hemoglobin (Bld) [Mass/Vol] 12.8 g/dL Normal 12.0-16.0 [facility] Comment on above: Performed By: #### C BC #### [facility] [address] [place] [address] Dr. Dimple Parsons IG # 0.15 10e3/ul Critically high 0.00-0.03 [facility] Comment on above: Performed By: #### C BC #### [facility] [address] [place] [address] Dr. Dimple Parsons IG % 1.3 % Critically high 0.0-0.5 [facility] Comment on above: Performed By: #### C BC #### [facility] [address] [place] [address] Dr. Dimple Parsons LYMPH # 3.4 103/ul Normal 1.2-3.8 [facility] [place] Comment on above: Performed By: #### C BC #### [facility] [address] [place] [address] Dr. Dimple Parsons Lymphocytes/100 WBC (Bld) 28.9 % Normal 20.5-60.0 [facility] Comment on above: Performed By: #### C BC #### [facility] [address] [place] [address] Dr. Dimple Parsons MANUAL DIFF REQ NO Normal [facility] Comment on above: Performed By: #### C BC #### [facility] [address] [place] [address] Dr. Dimple Parsons MCH (RBC) [Entitic mass] 25.9 pg Critically low 26.7-34.0 [facility] Comment on above: Performed By: #### C BC #### [facility] [address] [place] [address] Dr. Dimple Parsons MCHC (RBC) [Mass/Vol] 33.0 g/dL Normal 29.9-35.2 [facility] Comment on above: Performed By: #### C BC #### [facility] [address] [place] [address] Dr. Dimple Parsons MCV (RBC) [Entitic vol] 78.5 fL Critically low 81.0-99.0 [facility] Comment on above: Performed By: #### C BC #### [facility] [address] [place] [address] [address] Dimple Parsons MONO # 0.7 103/ul Normal 0.3-0.8 [facility] Comment on above: Performed By: #### C BC #### [facility] [address] [address] [address] Dimple Parsons Monocytes/100 WBC (Bld) 6.2 % Normal 1.7-12.0 [facility] Comment on above: Performed By: #### C BC #### [facility] [address] [place] [address] Dr. Dimple Parsons NEUT # 7.3 103/ul Critically high 1.4-6.5 [facility] Comment on above: Performed By: #### C BC #### [facility] [address] [place] [address] Dr. Dimple Parsons Neutrophils/100 WBC (Bld) 62.0 % Normal 43.0-75.0 [facility] Comment on above: Performed By: #### C BC #### [facility] [address] [place] [address] Dr. Dimple Parsons Platelet mean volume (Bld) [Entitic vol] 9.1 fL Critically low 9.5-13.5 [facility] Comment on above: Performed By: #### C BC #### [facility] [address] [place] [address] Dr. Dimple Parsons PLT 426 103/ul Normal 150-450 [facility] Comment on above: Performed By: #### C BC #### [facility] [address] [place] [address] Dr. Dimple Parsons RBC 4.94 106/ul Normal 4.20-5.40 [facility] Comment on above: Performed By: #### C BC #### [facility] [address] [place] [address] Dr. Dimple Parsons WBC 11.9 103/ul Critically high 4.0-11.0 [facility] Comment on above: Performed By: #### C BC #### [facility] [address] [place] [address] ABD/PELVIS WO CONon 05-08 CT ABD/PELVIS WO CON EXAMINATION: CT ABD/PELVIS WO CON, 05/08/2022 3:55 AM EST HISTORY: CALCULUS OF KIDNEY , right flank pain COMPARISON: None. TECHNIQUE: CT scan of the abdomen and pelvis was performed without IV contrast. Multiplanar reformats were generated. CT dose reduction technique was used, including Automated Exposure Control. FINDINGS: Exam is limited by lack of contrast. Lower thorax: Unremarkable. Liver: Appears mildly prominent without acute abnormality. Biliary: S/p cholecystectomy. Biliary tree appears nondilated. Spleen: Unremarkable. An isoattenuating soft tissue nodule immediately inferiorly, most likely splenule. Pancreas: Unremarkable. Adrenals: Unremarkable. Kidneys and bladder: Left kidney has a punctate calculus in its interpolar region. No visible left ureteral calculi or hydronephrosis. Right kidney has a 2 mm calculus in its lower pole. There is moderate right-sided hydroureteronephrosis, secondary to a 4.2 mm calculus at the right ureterovesical junction. Bladder is mostly empty and otherwise not well assessed. GI Tract: Stomach and small bowel do not appear significantly dilated. Some fecalization of the distal small bowel can be seen with slow transit. Appendix is surgically absent. Fatty infiltration of the ileocecal valve. There is moderate stool throughout the colon without a focal acute abnormality demonstrated. Lymph Nodes: No lymphadenopathy. Mesentery/peritoneum: No free fluid or free air. Retroperitoneum: No mass or fluid collection. Vasculature: No visible abdominal aortic or iliac artery aneurysm. Pelvis: Status post hysterectomy. In the left adnexa region, probably related to the left ovary, there is a 4 x 2.8 x 4.2 cm circumscribed masslike structure with internal attenuation slightly higher than simple fluid, 24 Hounsfield units. Bones/Soft Tissues: No acute osseous abnormality. Mild degenerative disk disease L5-S1 with minor disc bulge and trace retrolisthesis L5 on S1. Tiny fat-containing umbilical hernia. IMPRESSION: 1. Moderate right-sided hydroureteronephrosis, secondary to a 4.2 mm calculus at the right ureterovesical junction. 2. Additional punctate nonobstructing bilateral renal calculi. 3. Nonspecific left adnexal 4 x 2.8 x 4.2 cm circumscribed masslike structure, likely related to the ovary. This may relate to slightly hyperdense/hemorrhagic cyst, with neoplasm not excluded. Recommend further characterization with nonemergent outpatient ultrasound. Note: Exam was submitted to [facility] [facility] Incidental Findings call que, to call the above findings to the patient's primary care provider nonemergently. Electronically authenticated by: RERE CARLISLE Date: 2022-05-08 05:24 Normal [facility] PROF 14(COMP METB)on 05-08- 023 Albumin [Mass/Vol] 4.0 g/dL Normal 3.4-5.0 [facility] Comment on above: Performed By: #### R EVRT3 #### [facility] [address] [place] [address] Dr. Dimple Parsons Albumin/Globulin [Mass ratio] 1.1 {ratio} Normal [facility] [place] Comment on above: Performed By: #### R EVRT3 #### [facility] [address] [place] [address] Dr. Dimple Parsons ALP [Catalytic activity/Vol] 76 U/L Normal 46-116 [facility] [place] Comment on above: Performed By: #### R EVRT3 #### [facility] [address] [place] [address] Dr. Dimple Parsons ALT [Catalytic activity/Vol] 20 U/L Normal 14-59 [facility] [place] Comment on above: Performed By: #### R EVRT3 #### [facility] [address] [address] [address] Dimple Parsons Anion gap [Moles/Vol] 14.9 mmol/L Normal [facility] Comment on above: Performed By: #### R EVRT3 #### [facility] [address] [address] [address] Dimple Parsons AST [Catalytic activity/Vol] 19 U/L Normal 15-37 [facility] [place] Comment on above: Performed By: #### R EVRT3 #### [facility] [address] [place] [address] Dr. Dimple Parsons Bilirubin [Mass/Vol] 0.6 mg/dL Normal 0.2-1.0 [facility] Comment on above: Performed By: #### R EVRT3 #### [facility] [address] [address] [address] Dimple Parsons Calcium [Mass/Vol] 9.0 mg/dL Normal 8.5-10.1 [facility] Comment on above: Performed By: #### R EVRT3 #### [facility] [address] [address] [address] Dimple Parsons Chloride [Moles/Vol] 103 mmol/L Normal 98-107 [facility] [place] Comment on above: Performed By: #### R EVRT3 #### [facility] [address] [address] [address] Dimple Parsons CO2 [Moles/Vol] 25.5 mmol/L Normal 21.0-32.0 [facility] Comment on above: Performed By: #### R EVRT3 #### [facility] [address] [place] [address] Dr. Dimple Parsons Creatinine [Mass/Vol] 0.75 mg/dL Normal 0.55-1.02 [facility] [place] Comment on above: Performed By: #### R EVRT3 #### [facility] [address] [place] [address] Dr. Dimple Parsons EGFR-AF CITIZEN [place] >60 Normal >=60 [facility] Comment on above: Performed By: #### R EVRT3 #### [facility] [address] [address] [address] Dimple Parsons EGFR-NON AF CITIZEN OF [place] >60 Normal >=60 [facility] [place] Comment on above: Performed By: #### R EVRT3 #### [facility] [address] [address] [address] Dimple Parsons Globulin (S) [Mass/Vol] 3.8 g/dL Normal [facility] [place] Comment on above: Performed By: #### R EVRT3 #### [facility] [address] [address] [address] Dimple Parsons Glucose [Mass/Vol] 107 mg/dL Critically high 74-106 [facility] Comment on above: Performed By: #### R EVRT3 #### [facility] [address] [address] [address] Dimple Parsons Potassium [Moles/Vol] 3.4 mmol/L Critically low 3.5-5.1 [facility] Comment on above: Performed By: #### R EVRT3 #### [facility] [address] [address] [address] Dimple Parsons Protein [Mass/Vol] 7.8 g/dL Normal 6.4-8.2 [facility] Comment on above: Performed By: #### R EVRT3 #### [facility] [address] [address] [address] Dimple Parsons Sodium [Moles/Vol] 140 mmol/L Normal 136-145 [facility] Comment on above: Performed By: #### R EVRT3 #### [facility] [address] [address] [address] Dimple Parsons Urea nitrogen [Mass/Vol] 7.0 mg/dL Normal 7.0-18.0 [facility] [place] Comment on above: Performed By: #### R EVRT3 #### [facility] [address] [address] [address] Dimple Parsons Urea nitrogen/Creatinine [Mass ratio] 9.3 mg/mg Normal [facility] [place] Comment on above: Performed By: #### R EVRT3 #### [facility] [address] [address] [address] Dimple Parsons US PELVIS TRANSVAGon 023 US PELVIS TRANSVAG EXAMINATION: US PELV IS TRANSVAG INDICATION: Pain. COMPARISON: Same day CT abdomen pelvis. Pelvic ultrasound 06/01/2018. TECHNIQUE: Transvaginal sonographic images of the pelvis were obtained. FINDINGS: Uterus: Surgically absent. Right Ovary: Not visualized. Right Adnexa: No abnormality. Left Ovary Size: 4.2 x 4.5 x 4.5 cm Left Ovary: Complicated 3.6 x 3.3 x 3.0 cm cystic structure containing lacelike avascular internal echoes. Left Ovarian Flow: Arterial and venous flow is present on spectral Doppler. Left Adnexa: No abnormality. Free Fluid: None. IMPRESSION: 1. Left ovarian 3.6 cm complicated cystic structure, likely a benign hemorrhagic cyst. No evidence of ovarian torsion. 2. Right ovary not visualized. 3. Hysterectomy. Electronically authenticated by: MICKEY GALVAN Date: 2022-05-08 08:57 Normal [facility] XR ankle LT min 3V*on 2021 XR ankle LT min 3V* [facility] Main [place] [address] [place] [address] XRay Report Signed Patient: Karlene Vazquez MR#: [id number] : 1990 Acct:[id number] Age/Sex: 31 / F ADM Date: 02/21/22 [facility] Attending Dr: Treasure EAST Copies to: KITA Hanley Ordering Provider: KITA Hanley Date of Service: 02/21/22 XR/XR ankle LT min 3V*: M25.572 LEFT ANKLE - 3 views CLINICAL HISTORY: Patient jumped and landed on her left ankle 12 hours ago. Medial pain. COMPARISON: None FINDINGS: Soft tissue swelling is noted. No acute bony process. Ankle mortise appears intact. XR/XR ankle LT min 3V* IMPRESSION: SOFT TISSUE SWELLING WITHOUT ACUTE BONY PROCESS. Impression dictated by: Hardik Inman Jr., D.O.02/21/2022 12:42 PM Dictation Location: [place] [address] Transcribed By: [facility] 02/21/22 1242 Dictated By: Hardik Inman Jr, DO 02/21/22 1241 Signed By: 02/21/22 1242 Normal [facility] Physician Referralon 022 Physician Referral [id number]:12 7 Normal [facility] Operative Reporton Operative Report [id number]#[id number]:1 27 Normal [facility] Pre-Certification Formon Pre-Certification Form [id number]:12 7 Normal [facility] Lab Reportson 01-17-2022 Lab Reports [id number]:12 7 Normal [facility]son 01-16-2022 Lab Reports [id number]:12 7 Normal [facility] CBC AUTO DIFFon 01-13-2022 BASO # 0.1 103/ul Normal 0.0-0.1 [facility] Comment on above: Performed By: #### C BC #### [facility] [address] [place] [address] Dr. Dimple Parsons Basophils/100 WBC (Bld) 0.5 % Normal 0.2-2.0 [facility] Comment on above: Performed By: #### C BC #### [facility] [address] [place] [address] Dr. Dimple Parsons EO # 0.2 103/ul Normal 0.0-0.7 [facility] Comment on above: Performed By: #### C BC #### [facility] [address] [place] [address] Dr. Dimple Parsons Eosinophils/100 WBC (Bld) 2.3 % Normal 0.9-7.0 [facility] Comment on above: Performed By: #### C BC #### [facility] [address] [place] [address] Dr. Dimple Parsons Erythrocyte distribution width (RBC) [Ratio] 13.2 % Normal 11.0-15.0 [facility] Comment on above: Performed By: #### C BC #### [facility] [address] [place] [address] Dr. Dimple Parsons Hematocrit (Bld) [Volume fraction] 40.5 % Normal 36.0-48.0 [facility] Comment on above: Performed By: #### C BC #### [facility] [address] [place] [address] Dr. Dimple Parsons Hemoglobin (Bld) [Mass/Vol] 13.0 g/dL Normal 12.0-16.0 [facility] Comment on above: Performed By: #### C BC #### [facility] [address] [place] [address] Dr. Dimple Parsons IG # 0.01 10e3/ul Normal 0.00-0.03 [facility] Comment on above: Performed By: #### C BC #### [facility] [address] [place] [address] Dr. Dimple Parsons IG % 0.1 % Normal 0.0-0.5 [facility] Comment on above: Performed By: #### C BC #### [facility] [address] [place] [address] Dr. Dimple Parsons LYMPH # 2.6 103/ul Normal 1.2-3.8 [facility] Comment on above: Performed By: #### C BC #### [facility] [address] [place] [address] Dr. Dimple Parsons Lymphocytes/100 WBC (Bld) 27.4 % Normal 20.5-60.0 [facility] Comment on above: Performed By: #### C BC #### [facility] [address] [place] [address] Dr. Dimple Parsons MANUAL DIFF REQ NO Normal [facility] Comment on above: Performed By: #### C BC #### [facility] [address] [place] [address] Dr. Dimple Parsons MCH (RBC) [Entitic mass] 26.4 pg Critically low 26.7-34.0 [facility] Comment on above: Performed By: #### C BC #### [facility] [address] [place] [address] Dr. Dimple Parsons MCHC (RBC) [Mass/Vol] 32.1 g/dL Normal 29.9-35.2 [facility] Comment on above: Performed By: #### C BC #### [facility] [address] [place] [address] Dr. Dimple Parsons MCV (RBC) [Entitic vol] 82.2 fL Normal 81.0-99.0 [facility] Comment on above: Performed By: #### C BC #### [facility] [address] [place] [address] Dr. Dimple Parsons MONO # 0.6 103/ul Normal 0.3-0.8 [facility] Comment on above: Performed By: #### C BC #### [facility] [address] [place] [address] Dr. Dimple Parsons Monocytes/100 WBC (Bld) 6.2 % Normal 1.7-12.0 [facility] Comment on above: Performed By: #### C BC #### [facility] [address] [place] [address] Dr. Dimple Parsons NEUT # 6.1 103/ul Normal 1.4-6.5 [facility] Comment on above: Performed By: #### C BC #### [facility] [address] [place] [address] Dr. Dimple Parsons Neutrophils/100 WBC (Bld) 63.5 % Normal 43.0-75.0 [facility] Comment on above: Performed By: #### C BC #### [facility] [address] [place] [address] Dr. Dimple Parsons Platelet mean volume (Bld) [Entitic vol] 9.0 fL Critically low 9.5-13.5 [facility] Comment on above: Performed By: #### C BC #### [facility] [address] [place] [address] Dr. Dimple Parsons PLT 346 103/ul Normal 150-450 [facility] Comment on above: Performed By: #### C BC #### [facility] [address] [place] [address] Dr. Dimple Parsons RBC 4.93 106/ul Normal 4.20-5.40 [facility] Comment on above: Performed By: #### C BC #### [facility] [address] [place] [address] Dr. Dimple Parsons WBC 9.5 103/ul Normal 4.0-11.0 [facility] Comment on above: Performed By: #### C BC #### [facility] [address] [address] [address] Dimple Parsons FREE T4on 01-13-2022 Free T4 [Mass/Vol] 1.39 ng/dL Normal 0.76-1.46 [facility] Comment on above: Performed By: #### C BC #### [facility] [address] [place] [address] Dr. Dimple Parsons PROF CHEM 8 (BAS METB)on Anion gap [Moles/Vol] 10.4 mmol/L Normal [facility] Comment on above: Performed By: #### Inder CADENA #### [facility] [address] [place] [address] Dr. Dimple Parsons Calcium [Mass/Vol] 9.0 mg/dL Normal 8.5-10.1 [facility] Comment on above: Performed By: ###Rick CADENA #### [facility] [address] [place] [address] Dr. Dimple Parsons Chloride [Moles/Vol] 101 mmol/L Normal 98-107 [facility] Comment on above: Performed By: ###Rick CADENA #### [facility] [address] [place] [address] Dr. Dimple Parsons CO2 [Moles/Vol] 29.3 mmol/L Normal 21.0-32.0 [facility] Comment on above: Performed By: ###Rick CADENA #### [facility] [address] [place] [address] Dr. Dimple Parsons Creatinine [Mass/Vol] 0.79 mg/dL Normal 0.55-1.02 [facility] Comment on above: Performed By: ###Rick CADENA #### [facility] [address] [place] [address] Dr. Dimple Parsons EGFR-AF [place]IZ[place] >60 Normal >=60 [facility] Comment on above: Performed By: #### Inder CADENA #### [facility] [address] [place] [address] Dr. Dimple Parsons EGFR-NON AF CITIZEN [place] >60 Normal >=60 [facility] Comment on above: Performed By: #### Inder CADENA #### [facility] [address] [address] [address] Dimple Parsons Glucose [Mass/Vol] 92 mg/dL Normal 74-106 [facility] Comment on above: Performed By: #### Inder CADENA #### [facility] [address] [place] [address] Dr. Dimple Parsons Potassium [Moles/Vol] 3.7 mmol/L Normal 3.5-5.1 [facility] Comment on above: Performed By: #### Inder CADENA #### [facility] [address] [place] [address] Dr. Dimple Parsons Sodium [Moles/Vol] 137 mmol/L Normal 136-145 [facility] Comment on above: Performed By: #### Inder CADENA #### [facility] [address] [place] [address] Dr. Dimple Parsons Urea nitrogen [Mass/Vol] 11.0 mg/dL Normal 7.0-18.0 [facility] Comment on above: Performed By: #### Inder CADENA #### [facility] [address] [place] [address] Dr. Dimple Parsons Urea nitrogen/Creatinine [Mass ratio] 13.9 mg/mg Normal [facility] Comment on above: Performed By: #### Inder CADENA #### [facility] [address] [place] [address] Dr. Dimple Parsons PROTIMEon 01-13-2022 INR Coag (PPP) [Relative time] 1.04 {INR} Normal [facility] Comment on above: Performed By: #### P TT, PT #### [facility] [address] [place] [address] Dr. Dimple Parsons INR GUIDELINES SEE BELOW Normal [facility] Comment on above: Result Comment: VISHAL RED INR: 2.0 - 3.0 CONDITIONS NOT LISTED BELOW 2.5 - 3.5 FOR PROSTHETIC HEART VALVE REPLACEMENT 2.5 - 3.5 RECURRENT THROMBOSIS Performed By: #### P TT, PT #### [facility] [address] [place], [place] [address] Dr. Dimple Parsons PT Coag (PPP) [Time] 11.2 s Normal 9.0-11.6 [facility] Comment on above: Performed By: #### P TT, PT #### [facility] [address] [place], [place] [address] Dr. Dimple Parsons PTTon 01-13-2022 aPTT Coag (Bld) [Time] 35.1 s Normal 22.3-36.2 [facility] Comment on above: Performed By: #### P TT, PT #### [facility] [address] [address] [address] Dimple Parsons Patient Educationon 01-14-20 Patient Education Obstetrics and Gynec ology Kegel Exercises Kegel exercises can help strengthen your pelvic floor muscles. The pelvic floor is a group of muscles that support your rectum, small intestine, and bladder. In females, pelvic floor muscles also help support the womb (uterus). These muscles help you control the flow of urine and stool. Kegel exercises are painless and simple, and they do not require any equipment. Your provider may suggest Kegel exercises to: ? Improve bladder and bowel control. ? Improve sexual response. ? Improve weak pelvic floor muscles after surgery to remove the uterus (hysterectomy) or (females). ? Improve weak pelvic floor muscles after prostate gland removal or surgery (males). Kegel exercises involve squeezing your pelvic floor muscles, which are the same muscles you squeeze when you try to stop the flow of urine or keep from passing gas. The exercises can be done while sitting, standing, or lying down, but it is best to vary your position. Exercises How to do Kegel exercises: 1. Squeeze your pelvic floor muscles tight. You should feel a tight lift in your rectal area. If you are a female, you should also feel a tightness in your vaginal area. Keep your stomach, buttocks, and legs relaxed. 2. Hold the muscles tight for up to 10 seconds. 3. Breathe normally. 4. Relax your muscles. 5. Repeat as told by your health care provider. Repeat this exercise daily as told by your health care provider. Continue to do this exercise for at least 4?6 weeks, or for as long as told by your health care provider. You may be referred to a physical therapist who can help you learn more about how to do Kegel exercises. Depending on your condition, your health care provider may recommend: ? Varying how long you squeeze your muscles. ? Doing several sets of exercises every day. ? Doing exercises for several weeks. ? Making Kegel exercises a part of your regular exercise routine. This information is not intended to replace advice given to you by your health care provider. Make sure you discuss any questions you have with your health care provider. Document Released: 02/14/2013 Document Revised: 10/18/2018 Document Reviewed: 10/18/2018 [employer] Patient Education ? 2020 [employer] Normal [facility] TSHon 01-13-2022 TSH 1.528 uIU/mL Normal 0.358-3.74 0 [facility] Comment on above: Performed By: #### T SH #### [facility] [address] [address] [address] Dimple Parsons PAP ACOG PANEL 2: 30 to 65on 12-26-2021 . . Normal [facility] Comment on above: Result Comment: Perf ormed at: WB Performed By: #### C BC #### [facility] [address] [address] [address] Dimple Parsons Age Gdln ACOG Testing 30-65 Normal [facility] Comment on above: Performed By: #### C BC #### [facility] [address] [address] [address] Dimple Parsons DIAGNOSIS: Comment Normal [facility] Comment on above: Result Comment: NEGA TIVE FOR INTRAEPITHELIAL LESION OR MALIGNANCY. Performed at: [facility] Performed By: #### C BC #### [facility] [address] [address] [address] Dimple Parsons HPV Aptima Negative Normal Negative [facility] Comment on above: Result Comment: This nucleic acid amplification test detects fourteen high-risk HPV types (16,18,31,33,35,39,45,51,52,56,58,59,66,68) without differentiation. Performed at: =G Performed By: #### C BC #### [facility] [address] [place] [address] Dr. Dimple Parsons Methodology: Comment Normal [facility] Comment on above: Result Comment: This liquid based ThinPrep(R) pap test was screened with the use of an image guided system. Performed at: [facility] Performed By: #### C BC #### [facility] [address] [place] [address] Dr. Dimple Parsons Note: Comment Normal [facility] Comment on above: Result Comment: The Pap smear is a screening test designed to aid in the detection of premalignant and malignant conditions of the uterine cervix. It is not a diagnostic procedure and should not be used as the sole means of detecting cervical cancer. Both false-positive and false-negative reports do occur. . Performed at: WB Performed By: #### C BC #### [facility] [address] [place] [address] Dr. Dimple Parsons Performed by: Comment Normal [facility] Comment on above: Result Comment: Susan Hercules Nuclear Weapons Specialist (ASCP) Performed at: [facility] Performed By: #### C BC #### [facility] [address] [place] [address] Dr. Dimple Parsons Specimen adequacy: Comment Normal [facility] Comment on above: Result Comment: Sati sfactory for evaluation. No endocervical component is identified. Performed at: WB Performed By: #### C BC #### [facility] [address] [place] [address] Dr. Dimple Parsons COVID Quick Testingon 2021 Result Negative [facility] Other Vital Signs Date Time Vital Sign Value Performing Clinician Facility 12-17-2022 08:30-0400 Body height 175.26 cm Surya Hodges Other [facility] Other 12-17-2022 08:30-0400 Body mass index (BMI) [Ratio] 29.5 kg/m2 Surya Hodges Other [facility] Other 12-17-2022 08:30-0400 Body weight 90.63 kg Surya Hodges Other [facility] Other 12-17-2022 08:30-0400 Diastolic blood pressure 85 mm[Hg] Surya Hodges Other [facility] Other 12-17-2022 08:30-0400 Systolic blood pressure 120 mm[Hg] Surya Hodges Other [facility] Other 12-01-2022 12:00-0400 Body temperature 97.6 [degF] MD Surya Hodges Work Phone: [facility] 12-01-2022 12:00-0400 Diastolic blood pressure 77 mm[Hg] MD Surya Hodges Work Phone: [facility] 12-01-2022 12:00-0400 Heart rate 89 /min MD Surya Hodges Work Phone: [facility] 12-01-2022 12:00-0400 Respiratory rate 20 /min MD Surya Hodges Work Phone: [facility] 12-01-2022 12:00-0400 SaO2% (BldA) [Mass fraction] 99 % MD Surya Hodges Work Phone: [facility] 12-01-2022 12:00-0400 Systolic blood pressure 116 mm[Hg] MD Surya Hodges Work Phone: [facility] 12-01-2022 05:51-0400 Body weight 89.4 kg MD Surya Hodges Work Phone: [facility] 11-30-2022 16:30-0400 Body height 175.26 cm MD Surya Hodges Work Phone: [facility] 11-29-2022 11:15-0400 Body height 175.26 cm Surya Hodges Other [facility] Other 11-29-2022 11:15-0400 Body mass index (BMI) [Ratio] 28.79 kg/m2 Surya Hodges Other [facility] Other 11-29-2022 11:15-0400 Body temperature 97.1 [degF] Surya Hodges Other [facility] Other 11-29-2022 11:15-0400 Body weight 88.45 kg Surya Hodges Other [facility] Other 11-29-2022 11:15-0400 Diastolic blood pressure 88 mm[Hg] Surya Hodges Other [facility] Other 11-29-2022 11:15-0400 SaO2% (BldA) [Mass fraction] 98 % Surya Hodges Other [facility] Other 11-29-2022 11:15-0400 Systolic blood pressure 124 mm[Hg] Surya Hodges Other [facility] Other 11-18-2022 08:30-0400 Body height 175.26 cm Surya Hodges Other [facility] Other 11-18-2022 08:30-0400 Body mass index (BMI) [Ratio] 28.59 kg/m2 Surya Hodges Other [facility] Other 11-18-2022 08:30-0400 Body weight 87.82 kg Surya Hodges Other [facility] Other 11-18-2022 08:30-0400 Diastolic blood pressure 89 mm[Hg] Surya Hodges Other [facility] Other 11-18-2022 08:30-0400 Systolic blood pressure 131 mm[Hg] Surya Hodges Other [facility] Other 11-05-2022 10:00-0400 Body height 175.26 cm Surya Hodges Other [facility] Other 11-05-2022 10:00-0400 Body mass index (BMI) [Ratio] 29.68 kg/m2 Surya Hodges Other [facility] Other 11-05-2022 10:00-0400 Body weight 91.17 kg Surya Hodges Other [facility] Other 11-05-2022 10:00-0400 Diastolic blood pressure 85 mm[Hg] Surya Hodges Other [facility] Other 11-05-2022 10:00-0400 Systolic blood pressure 134 mm[Hg] Surya Hodges Other [facility] Other 10-18-2022 08:30-0400 Body height 175.26 cm Surya Hodges Other [facility] Other 10-18-2022 08:30-0400 Body mass index (BMI) [Ratio] 28.94 kg/m2 Surya Hodges Other [facility] Other 10-18-2022 08:30-0400 Body weight 88.91 kg Surya Hodges Other [facility] Other 10-18-2022 08:30-0400 Diastolic blood pressure 89 mm[Hg] Surya Hodges Other [facility] Other 10-18-2022 08:30-0400 Systolic blood pressure 137 mm[Hg] Surya Hodges Other [facility] Other 09-09-2022 10:15-0400 Body height 175.26 cm Surya Hodges Other [facility] Other 09-09-2022 10:15-0400 Body mass index (BMI) [Ratio] 29.12 kg/m2 Surya Hodges Other [facility] Other 09-09-2022 10:15-0400 Body weight 89.45 kg Surya Hodges Other [facility] Other 09-09-2022 10:15-0400 Diastolic blood pressure 89 mm[Hg] Surya Hodges Other [facility] Other 09-09-2022 10:15-0400 Respiratory rate 12 /min Surya Hodges Other [facility] Other 09-09-2022 10:15-0400 Systolic blood pressure 132 mm[Hg] Surya Hodges Other [facility] Other 05-21-2022 10:01-0500 Blood Pressure Location Kamaljit ROMERO [facility] 05-21-2022 10:01-0500 Diastolic blood pressure 80 mm[Hg] Kamaljit ROMERO [facility] 05-21-2022 10:01-0500 Heart rate 85 /min Kamaljit ROMERO [facility] 05-21-2022 10:01-0500 Systolic blood pressure 119 mm[Hg] Kamaljit ROMERO [facility] 01-13-2022 08:36-0400 Blood Pressure Location VERA KAUFMAN [facility] 01-13-2022 08:36-0400 Diastolic blood pressure 90 mm[Hg] VERA MANDEEP [facility] 01-13-2022 08:36-0400 Heart rate 91 /min VERA MANDEEP [facility] 01-13-2022 08:36-0400 Respiratory rate 16 /min VERA KAUFMAN [facility] 01-13-2022 08:36-0400 Systolic blood pressure 134 mm[Hg] VERA MANDEEP [facility] 04-08-2021 15:30-0500 Body height 175.26 cm Treasure Quezada Other [facility] Other 04-08-2021 15:30-0500 Body mass index (BMI) [Ratio] 29.97 kg/m2 Treasure Pilar Other [facility] Other 04-08-2021 15:30-0500 Body temperature 96.6 [degF] Treasure Quezada Other [facility] Other 04-08-2021 15:30-0500 Body weight 92.08 kg Treasure Pilar Other [facility] Other 04-08-2021 15:30-0500 Respiratory rate 18 /min Treasure Quezada Other [facility] Other 04-08-2021 15:30-0500 SaO2% (BldA) [Mass fraction] 98 % Treasure Quezada Other [facility] Other Encounters Encounter Date Encounter Type Care Provider Facility Start: 01-12-2023 End: 01-12-2023 ambulatory Surya Hodges Other [facility] Other Start: 01-12-2023 Telephone encounter Surya Hodges [facility] Start: 12-17-2022 End: 12-17-2022 ambulatory Surya Hodges Other [facility] Other Start: 12-17-2022 Office outpatient vi sit 15 minutes Suyra Hodges [facility] Start: 11-30-2022 End: 12-01-2022 Evaluation and management of inpatient MD Surya Hodges Work Phone: [facility] Work Phone: Start: 11-30-2022 End: 12-01-2022 observation encounter MD Surya Hodges Work Phone: [facility] Work Phone: Start: 11-30-2022 End: 12-01-2022 ambulatory Baljinder Polanco [facility] Other Start: 11-30-2022 Telephone encounter Surya Hodges [facility] Start: 11-29-2022 End: 11-29-2022 ambulatory Surya Hodges Other [facility] Other Start: 11-29-2022 Office outpatient vi sit 15 minutes Surya Hodges [facility] Start: 11-29-2022 Telephone encounter Surya Tracie [facility] Start: 11-18-2022 End: 11-18-2022 ambulatory Surya Hodges Other [facility] Other Start: 11-18-2022 Office outpatient vi sit 10 minutes Surya Hodges [facility] Start: 11-05-2022 End: 11-05-2022 ambulatory Surya Hodges Other [facility] Other Start: 11-05-2022 Office outpatient vi sit 10 minutes Surya Hodges [facility] Start: 11-04-2022 End: 11-04-2022 ambulatory Surya Hodges Other [facility] Other Start: 11-04-2022 Telephone encounter Surya Hodges [facility] Start: 10-18-2022 End: 10-18-2022 ambulatory Surya Hodges Other [facility] Other Start: 10-18-2022 Office outpatient vi sit 10 minutes Surya Hodges [facility] Start: 09-17-2022 End: 09-17-2022 ambulatory Surya Hodges Other [facility] Other Start: 09-17-2022 Telephone encounter Surya Hodges [facility] Start: 09-09-2022 End: 09-09-2022 ambulatory Surya Hodges Other [facility] Other Start: 09-09-2022 Office outpatient vi sit 15 minutes Surya Hodges [facility] Start: 09-03-2022 ambulatory Kamaljit Harrisi ty:[facility] Start: 06-18-2022 Encounter for other preprocedural examination DR BRENT ROLAND . [facility] Start: 06-16-2022 End: 06-16-[address] BRENT ROLAND . Facility:[facility] Start: 06-14-2022 End: 06-15-[address] BRENT ROLAND . Facility:[facility] Start: 06-14-2022 End: 06-15-2022 Encounter for other preprocedural examination DR BRENT ROLAND . Facility:[facility] Start: 06-04-2022 End: 06-05-[address] BRENT ROLAND . Facility:[facility] Start: 05-25-2022 End: 05-26-[address] BRENT ROLAND . Facility:[facility] Start: 05-21-2022 End: 05-22-2022 ambulatory Kamaljit ROMERO Facility:[facility] Start: 05-21-2022 End: 05-21-2022 Patient encounter procedure Kamaljit ROMERO [facility] Start: 05-20-2022 End: 05-21-[address] SURYA HODGES Facility:[facility] Start: 05-08-2022 End: 05-08-[address] SURYA HODGES Facility:[facility] Start: 03-23-2022 End: 04-16-2022 ambulatory BRINA SHEIKH Facility:[facility] Start: 03-16-2022 End: 03-16-2022 ambulatory Surya Hodges Other [facility] Other Start: 03-16-2022 Office outpatient vi sit 15 minutes Surya Hodges [facility] Start: 02-25-2022 Gynecological examin ation normal Surya Hodges Other [facility] Other Start: 02-25-[address] SURYA HODGES [facility] ity:[facility] Start: 02-21-2022 End: 02-21-2022 ambulatory Treasure Quezada Facility:[facility] Start: 02-21-2022 End: 02-21-2022 ambulatory MD Surya Hodges Work Phone: [facility] Work Phone: Start: 02-21-2022 End: 02-21-2022 Patient encounter procedure MD Surya Hodges Work Phone: [facility] Start: 01-19-2022 End: 01-20-2022 ambulatory Dee Mirza Facility:[id number] Start: 01-13-2022 End: 01-14-[address] BRENT ROLAND . Facility:[facility] Start: 01-13-2022 ambulatory Kamaljit ROMERO Facility :[facility] Start: 01-13-2022 End: 01-14-2022 ambulatory RONDA KAUFMAN Facility:[facility] Start: 01-13-2022 End: 01-13-2022 Patient encounter procedure VERA KAUFMAN [facility] Start: 12-21-2021 End: 12-21-[address] BRENT ROLAND . Facility: Start: 04-08-2021 (URG) Urgent Care Visit Treasure pimentel [facility] Start: 04-08-2021 End: 04-08-2021 ambulatory Treasure Quezada Other [facility] Other Start: 05-16-2020 Pre-procedure evalua tion check Surya Hodges Other [facility] Other Procedures Date Procedure Procedure Detail Performing Clinician Start: 11-30-2022 Ultrasonography of liver MD Surya Hodges Work Phone: Start: 11-30-2022 Respiratory Panel (PCR) MD Surya Hodges Work Phone: Start: 11-30-2022 Plain chest X-ray MD Kike Hodges Work Phone: Start: 02-21-2022 X-ray of left ankle MD Surya Hodges Work Phone: Start: 01-19-2022 Injection of urethra Puneet ROMERO Appendectomy VERA KAUFMAN Cholecystectomy VERA PATRICIA Depression screening Surya Hodges Other Hysterectomy VERA KAUFMAN Hysterectomy Surya Hodges Other Insertion of intraut erine contraceptive device Surya Hodges Other MRI guided ablation of uterine fibroid VERA KAUFMAN End: 06-01-2018 Removal of intrauterine device Surya Hodges Other Plan of Treatment Date Care Activity Detail Author Start: 12-01-2022 [facility] Start: 11-30-2022 Hospital admission [facility] Patient Education Mediterranean Diet Hyperthyroidism (Overactive Thyroid) (DC) Propranolol Prediabetes (DC) [facility] Work Phone: Patient referral [facility] Work Phone: Immunizations Immunization Date Immunization Notes Care Provider Kathy holliday 04-20-2021 SARS-CoV-2 (COVID-19 ) mRNA BNT-162b2 vax VERA KAUFMAN [facility] Comment on above: Result Comment: 2021: TPVALL 08-14-2020 SARS-CoV-2 (COVID-19 ) Ad26 vaccine, recombinant VERA KAUFMAN [facility] Comment on above: Result Comment: 2021: TPVALL Payers Date Payer Category Payer Self-pay [id number] 1990 Unknown [id number] 2.16.8 [id number] 1989 Unknown [id number] 2.16.8 [id number] 1989 Unknown [id number] 2.16.8 40.1.880626.3.579.2.727 1989 Unknown [id number] 2.16.8 40.1.500153.3.579.2.727 1989 Unknown [id number] 2.16.84 0.1.074448.3.579.2.593 1989 Unknown [id number] 2.16.84 0.1.360518.3.579.2.593 1989 Unknown [id number] 2.16.84 0.1.722760.3.579.2.593 1989 Unknown [id number] 2.16.84 0.1.966464.3.579.2.593 1989 Unknown [id number] 2.16.84 0.1.828730.3.579.2.593 1989 Unknown [id number] 2.16.84 0.1.661354.3.579.2.593 1989 Unknown [id number] 2.16.84 0.1.820597.3.579.2.593 1989 Unknown [id number] 2.16.84 0.1.654699.3.579.2.593 1989 Unknown [id number] 2.16.84 0.1.432325.3.579.2.593 1989 Unknown [id number] 2.16.84 0.1.677234.3.579.2.593 1989 Unknown [id number] 2.16.84 0.1.953811.3.579.2.593 1989 Unknown [id number] 2.16.84 0.1.383771.3.579.2.593 1960 [facility] DZNAN [id number] Unknown Harpal BC/BS [id number] Unknown [id number] 2.16.8 40.1.817633.3.579.2.531 Unknown [id number] 2.16.8 40.1.012882.3.579.2.531 Social History Date Type Detail Facility Unknown if ever smoked [facility] Other Sex Assigned At [facility] Start: 01-13-2022 End: 11-30-2022 Tobacco smoking status Never smoked tobacco (finding) [facility] Tobacco smoking status Never [facility] Start: 1990 Sex Assigned At Female F [facility] Goals Date Patient Goal Desired Activity /State Functional Status Date Assessment Result Facility 12-01-2022 Functional status Patient at Baseline [facility] Work Phone: 05-21-2022 Functional Status N/A [facility] 01-13-2022 Functional Status N/A [facility] Mental Status Date Assessment Result Facility 12-01-2022 Cognitive function Cognitive Sta tus Patient at Baseline [facility] Work Phone: Clinical Notes 04-08-2021 to 12-17-2022 Note Date & Type Note Facility 12-17-2022 Evaluation note Encounter Date Diagnosis Assessment Notes Dec, Hypothyroidism (ICD-10 - E03.9) Recheck in next 4-6 weeks. Continue healthy diet and exercise. [facility] Other 09-20-2023 Discharge summary Author Baljinder Polanco [facility] December 01, 2022 5:19pm Note Date/Time December 01, 2022 1:02pm [facility] [address] [place] [address] Discharge Summary Signed Patient: Karlene Vazquez MR#: [id number] : 1990 Acct:[id number] Age/Sex: 32 / F Adm Date: 3 Loc: Room: [address] [place] [address]: Baljinder Polanco MD Copies to: MD Surya Ambrose MD~ Providers Date of Discharge: 12/01/22 Discharging Provider: Baljinder Polanco Primary Care Provider: Surya Hodges Discharge Diagnosis Final Diagnosis Final Discharge Diagnosis: Sinus tachycardia related to iatrogenic hyperthyroidism Iatrogenic hypothyroidism Dyslipidemia Prediabetes Summary Hospital Course Hospital course: Patient is a 32-year-old female, who has a history of triggered Ellie's thyroiditis, on levothyroxine supplementation. She presented to theemergency department on December 30, complaining of right upper quadrant and chest discomfort, subjective dyspnea, inability to lay flat. Evaluation was unremarkable apart from a tachycardia and minimally increased troponin. A D-dimer and chest x-ray were negative. She was admitted to the hospital for evaluation. Serial cardiac markers did not demonstrate any significant increase. Tachycardia was treated with propranolol. An echocardiogram was unremarkable. It was felt that her symptoms were secondary to iatrogenic hyperthyroidism, as TSH was almost completely suppressed. No complications occurred. Patient was discharged home with a prescription for propranolol and with a decreased dose of levothyroxine. Recheck TSH in a coupleof weeks. Follow-up with endocrinology. She also needs management of dyslipidemia and prediabetes and I advised her to establish care with PCP. Time Spent with Patient Time spent providing/coordinating discharge services (# min): 36 Diagnostic Studies Completed and Pending Studies Labs on day of discharge: 12/01/22 06:32: Estimat Average Glucose 120, Hemoglobin A1c 5.8 H 12/01/22 06:32: Triglycerides 139, Cholesterol 214 H, LDL Cholesterol, Calc 132 H, VLDL Cholesterol 27, HDL Cholesterol 54, Cholesterol/HDL Ratio 4.0 12/01/22 06:32: Troponin I High Sens 27.1 H 11/30/22 21:16: POC Glucose 100 11/30/22 16:04: Urine Color Yellow, Urine Appearance Clear, Urine pH >= 9.0, Ur Specific [place] 1.013, Urine Protein Negative, Urine Glucose (UA) Normal, UrineKetones Trace H, Urine Occult Blood Negative, Urine Nitrite Negative, Urine Bilirubin Negative, Urine Urobilinogen Normal, Ur Leukocyte Esterase Negative 11/30/22 15:05: COVID-19 Clin Com Not detected 11/30/22 14:03: Free T3 3.89 11/30/22 13:00: B-Natriuretic Peptide 13.0 11/30/22 13:00: Total Creatine Kinase 18 L, Troponin I High Sens 38.7 H 11/30/22 13:00: Corrected WBC 8.2, Uncorrected WBC Count 8.2, RBC 5.06 H, Hgb 13.7, Hct 41.0, MCV 81.0, MCH 27.0, MCHC 33.3, RDW 14.3, Plt Count 368, MPV 7.2,Neut % (Auto) 59.2, Lymph % (Auto) 32.3, [place] % (Auto) 6.8, Eos % (Auto) 0.9, Baso % (Auto) 0.8, Nucleat RBC Rel Count 0.2, Neut # (Auto) 4.9, Lymph # (Auto) 2.7, [place] # (Auto) 0.6, Eos # (Auto) 0.1, Baso # (Auto) 0.1, Monocyte Dist Width19.22 11/30/22 13:00: PHA Creatinine Clear 114.08, Sodium 138, Potassium 4.1, [id number], Carbon Dioxide 23.9, Anion Gap 14.2, BUN 9, Creatinine 0.83, Est GFR (CKD-EPI) > 60.0, Glucose 77, Calcium 9.5, Magnesium 1.9, Total Bilirubin 0.9, DirectBilirubin 0.00 L, Indirect Bilirubin 0.9, AST 11 L, ALT 16, Alkaline [id number], Total Protein 7.6, Albumin 4.4, Globulin 3.2, Albumin/Globulin Ratio 1.4, Free T4 1.56 H, TSH 3rd Generation 0.03 L 11/30/22 12:21: PT 12.5, INR 1.1, APTT 32.4, D-Dimer Quant (PE/DVT) < 200 Exam Physical Exam Vital Signs: Temp Pulse Resp BP Pulse Ox O2 Del Method 97.6 F 89 20 116/77 99 Room Air 12/01/22 12:00 12/01/22 12:00 12/01/22 12:00 12/01/22 12:00 12/01/22 12:00 12/01/22 12:00 Discharge Plan Discharge Plan Patient Disposition: Home Activity: No Activity Restriction Diet: Other Comment: Mediterranean diet Additional Instructions: You have slightly elevated cholesterol level and prediabetes. Try to eat a healthier diet. Mediterranean diet is the best studied to improve health outcomes. I attached some instructions. Establish care with a primary care physician who will manage all your health issues. Instructions: Mediterranean Diet, Hyperthyroidism (Overactive Thyroid) (DC), Propranolol, Prediabetes (DC) Stand Alone Forms: Work/School Release Form Prescriptions: New propranolol 120 mg capsule,extended release 24 hr 120 mg PO DAILY Qty: 30 0RF levothyroxine 137 mcg capsule 137 mcg PO DAILY Qty: 30 3RF Continued levothyroxine 175 mcg tablet 175 mcg PO DAILY Changed metformin 500 mg tablet extended release 24 hr 500 mg PO BID 90 Days Qty: 180 3RF Other Ambulatory Orders: Thyroid Stimulating Hormone (Routine) Timeframe: 1 Month Location: Determined by Patient Ordered By: Baljinder Polanco Follow Up: Surya Hodges MD [Primary Care Provider] - (The office is aware of your hospital stay and need for follow up, the office will call you to schedule. Please call the office if you have not heard from them by the next business day.) Aniya Waldrop MD [Referring] - 12/28/22 1:20 pm (You have been scheduled for a follow up appointment for the following date and time, please call to reschedule if needed.) Documented By: Baljinder Polanco MD 12/01/22 [id number] Signed By: <Electronically signed by Baljinder Polanco MD> 12/01/22 [id number] [facility] Work Phone: 1([phone] 302-697709-19-2023 History and physical note Author Baljinder Polanco [facility] November 30, 2022 4:34pm Note Date/Time November 30, 2022 4:34pm [facility] [address] [place] [address] Hospitalist H&P Signed Patient: Karlene Vazquez MR#: [id number] : 1990 Acct:[id number] Age/Sex: 32 / F Adm Date: 3 Loc: Room: [address] [place] [address] Type: ADM IN Attending Dr: Baljinder Polanco MD Copies to: MD Surya Ambrose MD~ HPI DATE OF EXAMINATION: 11/30/22 HISTORY OF PRESENT ILLNESS: Patient is a 32-year-old relatively healthy female, who came to the emergency department today complaining of chest discomfort. Since Tuesday, i.e. 4 days ago, she has been having intermittent discomfort. This is localized in the right upper quadrant, and radiates into the chest and the right shoulder. She feels short of breath, and cannot lay flat. She has no gastrointestinal symptoms, is able to tolerate food well. No chest palpitations. No upper respiratory tract symptoms of any sort. The pain is not changed by exertion. Past medical history Hypothyroidism on levothyroxine Polycystic ovary syndrome Family history negative for heart disease 10 point review of systems negative except as noted Physical exam Patient was seen in the ED. Patient's mother is at bedside. Patient appears comfortable, in no distress. Skin is normally colored, no icterus, cyanosis or edema noted. Capillary refill is normal. Joints are without any effusion. Abdomen is soft, benign, no rebound or rigidity. No organomegaly. Bowel sounds present. Heart regular, no gallop, rub or JVD. Peripheral pulses present bilaterally. Lnmei-sy-ssfi ultrasound is unremarkable. Lungs are clear to auscultation, no rales, ronchi or wheezes. HENT normal Neurological: Patient is awake. Cognition is normal. Cranial nerves are intact. Power is symmetric all extremities, with no focal motor deficit identified on a cursory exam. Psych: affect is normal. EKG Labs imaging reviewed Assessment and plan 1. Right upper quadrant chest pain of unclear etiology. No serious pathology is currently apparent. D-dimer is negative. Patient is status postcholecystectomy. Follow cardiac enzymes. Telemetry monitoring. Liver ultrasound. 2. Iatrogenic hyperthyroidism. TSH is suppressed. We will decrease the dose of levothyroxine upon discharge. Low-dose beta-janie until then. Not sure whether this contributes to her symptoms. DVT prophylaxis Xarelto [facility] Medical History (Updated 11/30/22 @ 15:13 by Marcio Steven DO) Thyroid disease Surgical History (Updated 11/30/22 @ 13:04 by Javier Mcwilliams RN) H/O: hysterectomy Family History (Updated 11/30/22 @ 15:53 by Maura Bella RN) Grandparent Myocardial infarction Hx of CABG Colon cancer Social History Smoking Status: Never smoker Substance Use Type: Alcohol Meds Medications and Allergies Allergies clindamycin Allergy (Verified 11/30/22 12:18) Rash vaccine adjuvant system, AS01B liposomal Allergy (Verified 11/30/22 12:18) Rash Home Medications levothyroxine 175 mcg tablet 175 mcg PO DAILY 11/30/22 [History Confirmed 11/30/22] metformin 500 mg tablet,extended release 24 hr 500 mg PO HS 11/30/22 [History Confirmed 11/30/22] Exam Physical Exam Vital Signs: Temp Pulse Resp BP Pulse Ox O2 Del Method 98.8 F 85 18 118/82 99 Room Air 11/30/22 12:18 11/30/22 15:45 11/30/22 15:45 11/30/22 15:45 11/30/22 15:45 11/30/22 15:57 Results Lab Results Labs: Laboratory Last Values Corrected WBC 8.2 X10E3/uL (3.8-11.6) 11/30/22 13:00 Uncorrected WBC Count 8.2 x10E3/uL (3.8-11.6) 11/30/22 13:00 RBC 5.06 X10E6/uL (3.60-5.00) H 11/30/22 13:00 Hgb 13.7 g/dL (11.8-15.4) 11/30/22 13:00 Hct 41.0 % (34.0-46.4) 11/30/22 13:00 MCV 81.0 fl (80-100) 11/30/22 13:00 MCH 27.0 pg (24.7-34.3) 11/30/22 13:00 MCHC 33.3 g/dL (32.0-35.0) 11/30/22 13:00 RDW 14.3 % (11.9-15.3) 11/30/22 13:00 Plt Count 368 x10E3/uL (150-450) 11/30/22 13:00 MPV 7.2 fl (6.3-10.7) 11/30/22 13:00 Neut % (Auto) 59.2 % (.) 11/30/22 13:00 Lymph % (Auto) 32.3 % (.) 11/30/22 13:00 [place] % (Auto) 6.8 % (.) 11/30/22 13:00 Eos % (Auto) 0.9 % (.) 11/30/22 13:00 Baso % (Auto) 0.8 % (.) 11/30/22 13:00 Nucleat RBC Rel Count 0.2 /100 WBC (0-0.5) 11/30/22 13:00 Neut # (Auto) 4.9 x10E3/uL (1.8-7.7) 11/30/22 13:00 Lymph # (Auto) 2.7 x10E3/uL (1.00-4.8) 11/30/22 13:00 [place] # (Auto) 0.6 x10E3/uL (0.0-0.8) 11/30/22 13:00 Eos # (Auto) 0.1 x10E3/uL (0.0-0.45) 11/30/22 13:00 Baso # (Auto) 0.1 x10E3/uL (0.0-0.2) 11/30/22 13:00 Monocyte Dist Width 19.22 % (0.00-20.00) 11/30/22 13:00 PT 12.5 Seconds (9.0-12.9) 11/30/22 12:21 INR 1.1 11/30/22 12:21 APTT 32.4 Seconds (25.1-36.5) 11/30/22 12:21 D-Dimer Quant (PE/DVT) < 200 ng/mL (0-243) 11/30/22 12:21 PHA Creatinine Clear 114.08 11/30/22 13:00 Sodium 138 mmol/L (136-145) 11/30/22 13:00 Potassium 4.1 mmol/L (3.5-5.1) 11/30/22 13:00 Chloride 104 mmol/L (98-107) 11/30/22 13:00 Carbon Dioxide 23.9 mmol/L (21.0-31.0) 11/30/22 13:00 Anion Gap 14.2 mEq/L (6.0-15.0) 11/30/22 13:00 BUN 9 mg/dL (7-25) 11/30/22 13:00 Creatinine 0.83 mg/dL (0.60-1.20) 11/30/22 13:00 Est GFR (CKD-EPI) > 60.0 mL/Min 11/30/22 13:00 Glucose 77 mg/dL (70-100) 11/30/22 13:00 Calcium 9.5 mg/dL (8.6-10.3) 11/30/22 13:00 Magnesium 1.9 mg/dL (1.9-2.7) 11/30/22 13:00 Total Bilirubin 0.9 mg/dl (0.3-1.0) 11/30/22 13:00 Direct Bilirubin 0.00 mg/dL (0.03-0.18) L 11/30/22 13:00 Indirect Bilirubin 0.9 mg/dL 11/30/22 13:00 AST 11 U/L (13-39) L 11/30/22 13:00 ALT 16 U/L (7-52) 11/30/22 13:00 Alkaline Phosphatase 73 U/L (34-104) 11/30/22 13:00 Total Creatine Kinase 18 U/L (30-223) L 11/30/22 13:00 Troponin I High Sens 38.7 pg/mL (0.0-15.0) H 11/30/22 13:00 B-Natriuretic Peptide 13.0 pg/mL (5-100) 11/30/22 13:00 Total Protein 7.6 gm/dL (6.4-8.9) 11/30/22 13:00 Albumin 4.4 gm/dL (3.5-5.7) 11/30/22 13:00 Globulin 3.2 gm/dL 11/30/22 13:00 Albumin/Globulin Ratio 1.4 11/30/22 13:00 Free T4 1.56 ng/dL (0.61-1.12) H 11/30/22 13:00 TSH 3rd Generation 0.03 uIU/mL (0.45-5.33) L 11/30/22 13:00 Urine Color Yellow (Yellow) 11/30/22 16:04 Urine Appearance Clear (Clear) 11/30/22 16:04 Urine pH >= 9.0 (5.0-9.0) 11/30/22 16:04 Ur Specific [place] 1.013 (1.001-1.030) 11/30/22 16:04 Urine Protein Negative mg/dL (Negative) 11/30/22 16:04 Urine Glucose (UA) Normal mg/dL (Normal) 11/30/22 16:04 Urine Ketones Trace (Negative) H 11/30/22 16:04 Urine Occult Blood Negative (Negative) 11/30/22 16:04 Urine Nitrite Negative (Negative) 11/30/22 16:04 Urine Bilirubin Negative (Negative) 11/30/22 16:04 Urine Urobilinogen Normal mg/dL (Normal) 11/30/22 16:04 Ur Leukocyte Esterase Negative (Negative) 11/30/22 16:04 COVID-19 Clin Com Not detected (Not Detecte) 11/30/22 15:05 Microbiology Results Micro: Microbiology - Results from entire visit 11/30/22 15:05 Nasopharyngeal Respiratory Panel (PCR) - Final Assessment & Plan IP vs OBS Justification Based on differential dx, clinical care plan, and risk of adverse events, if untreated, in my clinical judgement this patient requires an acute care setting as: OBSERVATION because of an expectation of an under 2 midnight stay. Estimated length of stay (# of days): 1 Documented By: Baljinder Polanco MD 11/30/22 1631 Signed By: <Electronically signed by Baljinder Polanoc MD> 11/30/22 1634 [facility] Work Phone: [phone]) 919-554409-18-2023 Evaluation note* Encounter Date Diagnosis Assessment Notes Treatment Notes Treatment Clinical Notes Nov, Right-sided chest pain (ICD-10 - R07.9) HR regular, check EKG for complete workup of the chest discomfort Nov, Dyspnea, unspecified (ICD-10 - R06.00) Check labs r/o anemia or other metabolic causes. 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 Pt to start Adipex daily. Medication is a stimulant. May cause you to be jittery or constipated. Take in the morning, may also take stool softener daily as needed. Continue to eat a healthy well balanced diet and continue work-out regimine. Pt aware that this is not a cure for obesity but a tool used to help them during their weight loss plateau. Pt aware that they need to continue to work hard at weight loss or the weight will be regained. Side effects discussed and understood. Pt education printed and discussed. Pt notified of prescribing schedule with 30 day dispensing, no refills, for up to 12 weeks, with a 6 month break in-between treatments. Id SOB, CP, mood changes, tachycardia, HTN, headaches, blurred vision occur, go to ER and Follow-up with me immediately. Nov, Body mass index [BMI] 28.0-28.9, adult (ICD-10 - Z68.28) [facility] Other 08-25-2023 Evaluation note* Encounter Date Diagnosis Assessment Notes Treatment Notes Treatment Clinical Notes Oct, Allergic contact dermatitis, unspecified cause (ICD-10 - L23.9) Take medications as directed. Complete all doses. Wash all belongings that came in contact with plant oils. May continue to use Calamine lotion. Patient verbalized understanding and agreement with treatment plan. [facility] Other 08-07-2023 Evaluation note* Encounter Date Diagnosis Assessment Notes Treatment Notes Treatment Clinical Notes Oct, Overweight (BMI 25.0-29.9) (ICD-10 - E66.3) Patient has clearly made a good sabrina effort for several months on her own to lose weight with little success. Pt to start Adipex daily. Medication is a stimulant. May cause you to be jittery or constipated. Take in the morning, may also take stool softener daily as needed. Continue to eat a healthy well balanced diet and continue work-out regimine. Pt aware that this is not a cure for obesity but a tool used to help them during their weight loss plateau. Pt aware that they need to continue to work hard at weight loss or the weight will be regained. Side effects discussed and understood. Pt education printed and discussed. Pt notified of prescribing schedule with 30 day dispensing, no refills, for up to 12 weeks, with a 6 month break in-between treatments. Id SOB, CP, mood changes, tachycardia, HTN, headaches, blurred vision occur, go to ER and Follow-up with me immediately. [facility] Other 07-07-2023 Evaluation note* Encounter Date Diagnosis Assessment Notes Treatment Notes Treatment Clinical Notes Sep, Overweight (ICD-10 - E66.3) Sep, Body mass index [BMI] 29.0-29.9, adult (ICD-10 - Z68.29) [facility] Other 06-29-2023 Evaluation note* Encounter Date Diagnosis Assessment Notes Treatment Notes Treatment Clinical Notes Aug, Acute contact dermatitis (ICD-10 - L25.9) Take medications as directed. Complete all doses. Wash all belongings that came in contact with plant oils. May continue to use Calamine lotion. Patient verbalized understanding and agreement with treatment plan. [facility] Other 04-05-2023 NoteOPERATIVE NOTE OPERATION DATE: 06/16/2022 PROCEDURE: Diagnostic laparoscopy. PREOPERATIVE DIAGNOSIS: Pelvic pain, left ovarian cyst. POSTOPERATIVE DIAGNOSIS: Pelvic pain, left ovarian cyst. ANESTHESIA: General. SURGEON: Brent Roland D.O. YEAST CAKE CUTTER: MIRNA Harden URINE OUTPUT: Yellow and clear. BLOOD LOSS: 5 mL. SPECIMEN: None. FINDINGS: Both ovaries were seen and normal in appearance. No evidence of adhesions down by the vaginal cuff. Otherwise, normal appearing pelvic cavity. There were some omental adhesions which were bluntly taken down. PROCEDURE: The patient was taken back to the Operating Room where she was placed in dorsal lithotomy position after given general anesthesia. The patient was prepped and draped in normal sterile fashion. A sponge stick was placed into the patient's vagina. Attention was turned to the patient's abdomen, where a small umbilical incision was made. The fascia was tented using Bernadette clamps and the fascia was entered sharply. Confirmation of intra-abdominal placement of the 10 mm port was confirmed under direct visualization using a laparoscope. The patient's abdomen was then insufflated using CO2 gas with approximately 4 liters. A second port was placed left laterally; this was done under direct visualization with a 5 mm port. Survey of the patient's abdomen demonstrated normal liver and gallbladder. Survey of the patient's pelvic anatomy demonstrated normal appearing ovaries and tubes as well as normal appearing uterus. No endometrial implants could be noted, no evidence of any pelvic disease was seen, normal appearing pelvic cavity. All instruments were removed from the patient's abdomen. The patient's abdomen was desufflated of CO2 gas. The patient tolerated the procedure well. Sponge stick was removed from the patient's vagina. The patient's infraumbilical fascia was closed using #0 Vicryl on a GI needle. The patient's skin was closed laterally and infraumbilically using 4-0 Vicryl. The patient tolerated the procedure well. Sponge, lap and needle counts were correct x 2. The patient was taken to Recovery Room in stable condition[id number] Patient Education 05/21/2022 10:45:43 Kidney Stones, [id number]-Iqdw Kidney Stones Kidney stones are rock-like masses that form inside of the kidneys. Kidneys are organs that make pee (urine). A kidney stone may move into other parts of the urinary tract, including: The tubes that connect the kidneys to the bladder (ureters). The bladder. The tube that carries urine out of the body (urethra). Kidney stones can cause very bad pain and can block the flow of pee. The stone usually leaves your body (passes) through your pee. You may need to have a doctor take out the stone. What are the causes? Kidney stones may be caused by: A condition in which certain glands make too much parathyroid hormone (primary hyperparathyroidism). A buildup of a type of crystals in the bladder made of a chemical called uric acid. The body makes uric acid when you eat certain foods. Narrowing (stricture) of one or both of the ureters. A kidney blockage that you were born with. Past surgery on the kidney or the ureters, such as gastric bypass surgery. What increases the risk? You are more likely to develop this condition if: You have had a kidney stone in the past. You have a family history of kidney stones. You do not drink enough water. You eat a diet that is high in protein, salt (sodium), or sugar. You are overweight or very overweight (obese). What are the signs or symptoms? Symptoms of a kidney stone may include: Pain in the side of the belly, right below the ribs (flank pain). Pain usually spreads (radiates) to the groin. Needing to pee often or right away (urgently). Pain when going pee (urinating). Blood in your pee (hematuria). Feeling like you may vomit (nauseous). Vomiting. Fever and chills. How is this treated? Treatment depends on the size, location, and makeup of the kidney stones. The stones will often pass out of the body through peeing. You may need to: Drink more fluid to help pass the stone. In some cases, you may be given fluids through an IV tube put into one of your veins at the hospital. Take medicine for pain. Make changes in your diet to help keep kidney stones from coming back. Sometimes, medical procedures are needed to remove a kidney stone. This may involve: A procedure to break up kidney stones using a beam of light (laser) or shock waves. Surgery to remove the kidney stones. Follow these instructions at home: Medicines Take qxuj-pva-lticmsw and prescription medicines only as told by your doctor. Ask your doctor if the medicine prescribed to you requires you to avoid driving or using heavy machinery. Eating and drinking Drink enough fluid to keep your pee pale yellow. You may be told to drink at least 8 10 glasses of water each day. This will help you pass the stone. If told by your doctor, change your diet. This may include: ?Limiting how much salt you eat. ?Eating more fruits and vegetables. ?Limiting how much meat, poultry, fish, and eggs you eat. Follow instructions from your doctor about eating or drinking restrictions. General instructions Collect pee samples as told by your doctor. You may need to collect a pee sample: ?24 hours after a stone comes out. ?8 12 weeks after a stone comes out, and every 6 12 months after that. Strain your pee every time you pee (urinate), for as long as told. Use the strainer that your doctor recommends. Do not throw out the stone. Keep it so that it can be tested by your doctor. Keep all follow-up visits as told by your doctor. This is important. You may need follow-up tests. How is this prevented? To prevent another kidney stone: Drink enough fluid to keep your pee pale yellow. This is the best way to prevent kidney stones. Eat healthy foods. Avoid certain foods as told by your doctor. You may be told to eat less protein. Stay at a healthy weight. Where to find more information National Kidney Foundation (NKF): www.kidney.org U[employer] Foundation (UCF): www.urologyhealth.org Contact a doctor if: You have pain that gets worse or does not get better with medicine. Get help right away if: You have a fever or chills. You get very bad pain. You get new pain in your belly (abdomen). You pass out (faint). You cannot pee. Summary Kidney stones are rock-like masses that form inside of the kidneys. Kidney stones can cause very bad pain and can block the flow of pee. The stones will often pass out of the body through peeing. Drink enough fluid to keep your pee pale yellow. This information is not intended to replace advice given to you by your health care provider. Make sure you discuss any questions you have with your health care provider. Document Released: 08/16/2008 Document Revised: 07/17/2019 Document Reviewed: 07/17/2019 [employer] Patient Education 2019 [employer]. Follow Up Care 05/11/2022 13:32:37 With:LUCY STILES, Kamaljit Rivas, URL Address: [address] [place] [address] [place] [address]- When: Unknown [facility] Evaluation note* Encounter Date Diagnosis Assessment Notes Treatment Notes Treatment Clinical Notes Mar, Pharyngitis, unspecified etiology (ICD-10 - J02.9) New medications as directed. Increase fluids, rest, good hand washing. OTC for fever/discomfort. Tooth brush in the body component engineer or get a new one after on antibiotics for 24 hours. F/U if no improvement in the next 72 hours Mar, Vaginal yeast infection (ICD-10 - B37.31) Will treat empirically for yeast, discharge and sx reported consistent with that of vaginal candidiasis. Instructed patient to take as directed, advised that she should feel improvement in about 2 days. [facility] Other 11-02-2022 NoteChief Complaint Referral-Stress Incontinence HPI Staff Evaluation requested by Dr Roland due to stress incontinence. Pt is a new pt, never before seen in our office. Has been having moderate leaking over the past year. seems to be worsening. only with activity such as jogging, bending, lifting. Wears a pad when she knows that she will haveincreased activity. 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 not bothersome. Denies pain/burning/blood in urine. no frequent UTIs. PVR today is 57ml 2 vaginal births >10 yrs ago. hysterectomy 1 yr ago. has ovaries. on estrogen replacement. working on weight loss. Review of Systems PHQ Score Initial Depression Screen Score: 0 no fever, chills, malaise, myalgia. no rash/lesions. no chest pain, palpitations, or SOB. no abdominal pain, nausea, vomiting. no unilateral calf swelling, redness, pain Physical Exam Vitals & Measurements HR: 91(Peripheral) RR: 16 BP: 134/90 HT: 69 in HT: 175 cm WT: 99.0 kg WT: 217.8 lb BMI: 32.33 General: nontoxic, NAD Mouth: moist mucosa Lungs: normal respiratory effort Cardio: regular rate, good distal perfusion Abdomen: nondistended, no suprapubic distention or tenderness, no CVA tenderness Neurologic: Grossly normal Skin: No rashes or suspicious lesions : +MAX demonstrated with Valsalva and cough, low volume. normal external genitalia. no lesions, masses, rashes, bleeding Urethra: hypermobility noted Vagina: normal Uterine prolapse: none Cystocele: none Rectocele: none Assessment/Plan 1. Stress incontinence (N39.3: Stress incontinence (female) (male)) Pt c/o predominant stress incontinence. This was demonstrated on physical exam. I went over the options for treatment with the patient. We discussed conservative treatment with pelvic floor exercises with or without a physical therapist. We also discussed vaginal inserts such as anti-incontinence pessaries and the Impressa tampon. Definitive treatment including urethral bulking agents and mid-urethral sling were discussed as these are options offered by my colleagues. Details of each procedure, success rates, recovery/downtimeexpectations, and risks were discussed at length. We also spoke briefly about traditional slings with autologous fascia. This is also a very successful procedure without the use of synthetic mesh. It does however require a significantly longer recovery period and has a slightly higher risk of voiding dysfunction. And pt understands that it is not offered by our physicians so she would need referred elsewhere. Based on the above discussion the patient prefers to move forward with Bulkamid. Specific risks of Bulkamid were discussed including: Postoperatively, transient symptoms such as dysuria, stranguria, hematuria, urinary tract infection, and acute retention may occur. Long-term sideeffects such as non-acute retention, abscess formation, fibrosis (tissue hardening), de tee urgency, and necrosis are possible, but rare. Results and experiences may vary and are unique to each patient. The efficacy of the procedure may diminish over time and no promise or guarantee is made about specific results or experiences. The patient, after being informed of procedural details and after questions have been answered, wishes to proceed. Full informed consent has been obtained. Ordered: E&M of New Patient Moderate 45-59 Min 95024 Measure Post Void residual urine and/or bladder capacity by US- non-imaging 04998 Urnls Dip Stick Auto w/o Microscopy POC 39202 Follow-up With When Contact Information [facility] [place] [address] Business (1) Additional Instructions: for procedure as scheduled Patient Education Kegel Exercises Problem List/Past Medical History Ongoing Anxiety Hypothyroidism Urinary, incontinence, stress female Historical Acute upper respiratory infection, unspecified Procedure/Surgical History Ablation of uterine fibroid using magnetic resonance imaging guidance, Appendectomy, Cholecystectomy, Hysterectomy. Medications estradiol 0.5 mg Tab, Oral, Daily Mounjaro 2.5 mg/0.5 mL subcutaneous solution, SubCutaneous, qWeek Prozac, Oral, Daily Synthroid 150 mcg (0.15 mg) Tab Allergies azithromycin (Eruption) clindamycin (Unknown) tetanus/diphth/pertuss (Tdap) adult/adol (Unknown) Social History Tobacco Never (less than 100 in lifetime) Tobacco Use:. Never Smokeless Tobacco Use:., 01/13/2022 Family History Family history is negative Immunizations Vaccine Date Status Comments SARS-CoV-2 (COVID-19) mRNA BNT-162b2 vax 04/20/2021 Recorded 2022-01-11: TPVALL SARS-CoV-2 (COVID-19) Ad26 vaccine 08/14/2020 Recorded 2022-01-11: TPVALL Lab Results Ambulatory Point of Care Results Bilirubin Urine Dipstick: 1+ Small (01/13/22 08:33:00) Blood Urine Dipstick: Negative (01/13/22 08:33:00) (more content not included)...[facility]Result Comment: Electronically Signed By: VERA KAUFMAN PA-C\Date and Time Signed: 01/13/2211:04 [id number] Hospital Discharge instructions Patient Education 01/13/2022 11:03:33 Kegel Exercises Kegel Exercises Kegel exercises can help strengthen your pelvic floor muscles. The pelvic floor is a group of muscles that support your rectum, small intestine, and bladder. In females, pelvic floor muscles also help support the womb (uterus). These muscles help you control the flow of urine and stool. Kegel exercises are painless and simple, and they do not require any equipment. Your provider may suggest Kegel exercises to: Improve bladder and bowel control. Improve sexual response. Improve weak pelvic floor muscles after surgery to remove the uterus (hysterectomy) or (females). Improve weak pelvic floor muscles after prostate gland removal or surgery (males). Kegel exercises involve squeezing your pelvic floor muscles, which are the same muscles you squeezewhen you try to stop the flow of urine or keep from passing gas. The exercises can be done while sitting, standing, or lying down, but it is best to vary your position. Exercises How to do Kegel exercises: 1.Squeeze your pelvic floor muscles tight. You should feel a tight lift in your rectal area. If youare a female, you should also feel a tightness in your vaginal area. Keep your stomach, buttocks, and legs relaxed. 2.Hold the muscles tight for up to 10 seconds. 3.Breathe normally. 4.Relax your muscles. 5.Repeat as told by your health care provider. Repeat this exercise daily as told by your health care provider. Continue to do this exercise for at least 4 6 weeks, or for as long as told by your health care provider. You may be referred to a physical therapist who can help you learn more about how to do Kegel exercises. Depending on your condition, your health care provider may recommend: Varying how long you squeeze your muscles. Doing several sets of exercises every day. Doing exercises for several weeks. Making Kegel exercises a part of your regular exercise routine. This information is not intended to replace advice given to you by your health care provider. Make sure you discuss any questions you have with your health care provider. Document Released: 02/14/2013 Document Revised: 10/18/2018 Document Reviewed: 10/18/2018 [employer] Patient Education 2020 [employer] Follow Up Care 01/11/2022 14:36:11 With:[facility] Jane Lew Address: [address] [place] [address] Business (1) When: Unknown Comments:for procedure as scheduled [facility] 01-26-2022 Evaluation note* Encounter Date Diagnosis Assessment Notes Treatment Notes Treatment Clinical Notes Mar, Contact with and (suspected) exposure to other viral communicable diseases (ICD-10 - Z20.828) Mar, Viral upper respiratory illness (ICD-10 - J06.9) Drink plenty of fluids and get plenty of rest. Continue amoxicillin as prescribed until gone. Take the prednisone as prescribed until gone. Use the albuterol inhaler as prescribed as needed for cough or shortness of breath. Follow-up with your family physician and consider getting a PCR test done tomorrow if possible. Mar, Other Additional time spent conducting pre-visit phone call, screening for symptoms, instructions on social distancing, application and removal of PPE, and cleaning of examination room, equipment and supplies was preformed. Patient education given for testing methodology and results. Patient care instructions given in writting by [facility] Care At Home document. [facility] Other evaluation + Plan note No data available for this section [facility] evaluation + Plan note Future Appointments Appointment Date:09/03/2022 08:00:00 AM Scheduled Provider:Kamaljit ROMERO MD Location:[facility] Appointment Type:URO Office Visit [facility] evaluation noteNo assessment information available [facility] [employer] Work Phone: evaluation noteNo InformationNort [employer] Other evaluvwpmp note* Diagnosis Onset Date Resolution Status Chest pain acute Tachycardia acute [facility] [employer] Work Phone: Hisvgzs general Narrative - Reported* Type Description Date Medical History hypothyroidism Surgical History gallbladder removal Surgical History appendecs Surgical History ovarian cysts taken out in 2007 Surgical History hysterectomy Hospitalization History surgeries Hospitalization History child [facility] Other history general Narrative - Reported* Type Description Date Medical History hypothyroidism Surgical History gallbladder removal Surgical History appendecs Surgical History ovarian cysts taken out in 2007 Surgical History hysterectomy Hospitalization History surgeries Hospitalization History child Hospitalization History [facility] chest pain 11/2022 [facility] Other Hospital Discharge instructions Additional Instructions You have slightly elevated cholesterol level and prediabetes. Try to eat a healthier diet. Mediterranean diet is the best studied to improve health outcomes. I attached some instructions. Establish care with a primary care physician who will manage all your health issues.[facility] Work Phone: Progress note No data available for this section [facility] Advance Directives Advance Directive Response Recorded Date/ Time Advance Directives No April 12, 2017 2:55pm Advance Directive Response Recorded Date/ Time Advance Directives No April 12, 2017 3:55pm Summary Purpose Family History Relationship Condition Age at Onset Recorded Date/T pool grandparent Myocardial infarction Unknown History of coronary artery bypass surgery Unknown Malignant neoplasm of colon Unknown Chief Complaint and Reason for Visit Chief Complaint chest pain sob Reason for Visit Chest pain Tachycardia Additional Source Comments REASON FOR VISIT (unrecogniz ed section and content) #16 WHITE HONDAI, COUGH, CON GESTIONFever- [phone]/Bug BiteNo Information1 month Follow upRashmessage1 month Follow uplabs and CXRWeight on chest, Tirednessekg1 month Follow uprefill Patient Care team informatio n (unrecognized section and content) Team Status: Inactive Member Role Status Dates Surya Hodges MD Primary Care Provider Active KITA Rutledge Attending Provider Active Team Status: Active Member Role Status Dates Surya Hodges MD Primary Care Provider Active Team Status: Inactive Member Role Status Dates Surya Hodges MD Primary Care Provider Active Marcio Steven DO Emergency Provider Active Baljinder Polanco MD Admit Provider, Attending Provider Active Goals (unrecognized section and content) Goals may be documented in a n alternate section INFORMATION SOURCE (unrecogn ized section and content) DATE CREATED AUTHOR 05/23/2022 [facility] DATE CREATED AUTHOR AUTHOR'S ORGANIZ ATION 07/01/2022 [facility] DATE CREATED AUTHOR AUTHOR'S ORGANIZ ATION 12/18/2022 [facility] FOR RECORDS PERTAINING TO PATIENTS WHO ARE OR HAVE BEEN ENROLLED IN A CHEMICAL DEPENDENCY/SUBSTANCEABUSE PROGRAM, SOME INFORMATION MAY BE OMITTED. This clinical summary was aggregated from multiple sources. Caution should be exercised in using it in the provision of clinical care. This summary normalizes information from multiple sources, and as a consequence, information in this document may materially change the coding, format and clinical context of patient data. In addition, data may be omitted in some cases. CLINICAL DECISIONS SHOULD BE BASED ON THE PRIMARY CLINICAL RECORDS. [facility] provides no warranty or guarantee of the accuracy or completeness of information in this document.
[2023-03-11 10:10] LABS: Internal Control Within Normal Limits; SARS-CoV-2 Ag NEGATIVE (NEGATIVE); Strep A Antigen Screen Negative
[2023-03-11 14:26] LABS: SARS-CoV-2 NAA NOT DETECTED (NOT DETECTE)
== END 2023-03-11 09:22 | disposition home or self-care (01) ==
LOC: LAB 09:21
PROVIDERS: PCP Family Medicine; Visit Provider Family Medicine
DX: Z20.822 Contact with and (suspected) exposure to COVID-19 (principal); J02.9 Acute pharyngitis, unspecified
CPT/HCPCS: 87070; 87635; 87811; 87880

== ENCOUNTER 2023-05-02 11:30 | Emergency (ER) | payer BC, SELFPAY ==
[2023-05-02] VITALS (15 sets, daily range): BP systolic 123–124; BP diastolic 79–94; PULSE 114–141; RESP 1–29; TEMP 37.2; O2SAT 98–99; BMI 30.3
--- OUTSIDE RECORDS SUMMARY | 2023-05-02 11:40 | XMS_ITS | CCD ---
Author Name Unknown Address [address] [place] [address] Organization [facility] Care Team Providers [employer] Supervisor Name Role Phone Treasure Quezada Unavailable SURYA HODGES Primary Care Physician [phone] MD Surya Hodges Primary Care Provider KITA Quezada Attending Provider Surya Hodges Unavailable Kamaljit ROMERO Attending Unavailable RONDA KAUFMAN Attending Unavailab Brent Pan Referring Unavailable Kamaljit ROMERO Attending Unavailable Dee Mirza Attending Unavailable COLEEN ., DR SEYMOUR Admitting Unavailable TRACIE, DR SURYA Dejesus Primary Care Unavailable BRIDGETTE PATEL Consulting Unavailable COLEEN ., DR SEYMOUR Attending Unavailable COLEEN ., DR SEYMOUR Admitting Unavailable COLEEN ., DR SEYMOUR Consulting Unavailable DR SURYA HODGES Primary Care Unavailable COLEEN ., DR SEYMOUR Attending Unavailable CHELSEA PINTO Consulting Unavailable BO IIMATHEW Consulting Unavailable COLEEN ., DR SEYMOUR Admitting Unavailable COLEEN ., DR SEYMOUR Consulting Unavailable DR SURYA HODGES Primary Care Unavailable COLEEN ., DR SEYMOUR Attending Unavailable EULALIO .DEE Attending Unavailable DEE BLEVINS Admitting Unavailable DEE BLEVINS Consulting Unavailable TRACIE, DR SURYA Dejesus Primary Care Unavailable LUCY ., DR NAQVI Attending Unavailable LUCY ., DR NAQVI Admitting Unavailable LUCY ., DR NAQVI Consulting Unavailable ZIEBPRESTON, DR DAVID Rivas Consulting Unavailable COLEEN ., DR SEYMOUR Admitting Unavailable COLEEN ., DR SEYMOUR Consulting Unavailable HODGES, DR SURYA Dejesus Primary Care Unavailable COLEEN ., DR SEYMOUR Attending Unavailable HODGES, DR SURYA Dejesus Primary Care Unavailable ROMERO ., DR NAQVI Attending Unavailable ROMERO ., DR NAQVI Admitting Unavailable HODGES, DR SURYA Dejesus Primary Care Unavailable KORI, BRINA Attending Unavailable KORI, BRINA Admitting Unavailable COLEEN ., DR SEYMOUR Admitting Unavailable COLEEN ., DR SEYMOUR Consulting Unavailable HODGES, DR SURYA Dejesus Primary Care Unavailable COLEEN ., DR SEYMOUR Attending Unavailable COLEEN ., DR SEYMOUR Consulting Unavailable HODGES, DR SURYA Dejesus Primary Care Unavailable COLEEN ., DR ESYMOUR Attending Unavailable COLEEN ., DR SEYMOUR Admitting Unavailable Kayla Acosta Consulting Unavailable KORI, BRINA Admitting Unavailable KORI, BRINA Attending Unavailable TRACIE, DR SURYA Dejesus Primary Care Unavailable HODGES, DR SURYA Dejesus Primary Care Unavailable LIMA, DR CROW Rivas Admitting Unavailable LIMA, DR CROW Rivas Consulting Unavailable LIMA, DR CROW Rivas Attending Unavailable MAGI BAUER Consulting Unavailable MICKEY GALVAN Consulting Unavailable RERE CARLISLE Consulting Unavailable MD Surya Hodges Primary Care Provider DO Marcio Steven Emergency Provider [phone] MD Baljinder Polanco Admit Provider [phone] MD Baljinder Polanco Attending Provider Treasure Quezada Attending Unavailable Treasure Quezada Admitting Unavailable Surya Hodges Primary Care Unavailable Baljinder Polanco Admitting Unavailable Surya Hodges Primary Care Unavailable Baljinder Polanco Attending Unavailable Jason Beasley Unavailable YESICA BECKER Attending Unavailable YESICA BECKER Attending Unavailable Surya Hodges MD Primary Care Provider Allergies Allergy Classification Reported Allergen(s) Allergy Type Date of Onset Reaction(s) Facility (19 sources) Azithromycin; Translations: [azithromycin] Drug Allergy rash, Eruption of skin (disorder) [facility] (16 sources) whooping cough Propensity to adverse reactions swelling injection site [employer] Other (15 sources) Bordetella pertussis filamentous hemagglutinin vaccine, inactivated / Bordetella pertussis fimbriae 2/3 vaccine, inactivated / Bordetella pertussis pertactin vaccine, inactivated / Bordetella pertussis toxoid vaccine, inactivated / diphtheria toxoid vaccine, inactivated / tetanus toxoid vaccine, inactivated; Translations: [diphtheria/pertu ssis, acel/tetanus adult] Drug Allergy 03-14-19 Unknown, Comment:vaccin e [facility] (17 sources) Clindamycin; Translations: [clindamycin] Drug Allergy 03-14-19 Rash [facility] (2 sources) acellular pertussis vaccine, inactivated / diphtheria toxoid vaccine, inactivated / tetanus toxoid vaccine, inactivated Drug Allergy [facility] (2 sources) Clindamycin Drug Allergy [facility] (2 sources) vaccine adjuvant system, AS01B liposomal; Translations: [vaccine adjuvant system, AS01B liposomal] Allergy to substance 12-01-19 [facility] (1 source) Clindamycin Drug Allergy 12-01-19 [facility] (1 source) Idcdtnb-Unlekj-Be ell Pertussis Propensity to adverse reactions 09-24-19 Swelling [facility] Work Phone: Medications Current Medications Medication Drug Class(es) Dates Sig (Normalized) Sig (Original) [id number] actuat albuterol 0.09 mg/actuat metered dose inhaler (2 sources) beta2-Adrenergic Agonist Start: 04-04-2023 take 2 puff(s) by inhalation every four hours as needed Albuterol Sulfate HFA 108 (90 Base) MCG/ACT 2 puff Inhalation every 4 hrs prn Mar, Active Start: 04-08-2021 take 2 puff(s) by in halation four times daily as needed Albuterol Sulfate HFA 108 (90 Base) MCG/ACT 2 puffs Inhalation qid prn Mar, Active amoxicillin 500 mg oral capsule (2 sources) Penicillin-class Antibacterial Start: 03-16-2022 take 1 capsule by mouth every eight hours Amoxicillin 500 MG 1 capsule Orally every 8 hrs for 7 days Mar, Active benzonatate 200 mg oral capsule (1 source) Non-narcotic Antitussive Start: 04-04-2023 take 1 capsule by mouth every eight hours Benzonatate 200 MG 1 capsule Orally Three times a day for 10 day(s) Mar, Active cefdinir 300 mg oral capsule (1 source) Cephalosporin Antibacterial Start: 04-04-2023 Cefdinir 300 MG as directed Orally bid for 7 days Mar, Active Celexa (6 sources) Serotonin Reuptake Inhibitor Start: 05-21-2022 Celexa Refills(s) 0 Start Date: 05/21/22 Status: Ordered End: 04-21-2023 take 1 tablet by mouth in the morning citalopram (CeleXA) 20 MG tablet Take 20 mg by mouth in the morning. 0 04/21/2023 Discontinued (Therapy completed) doxycycline hyclate 100 mg oral capsule (2 sources) Tetracycline-class Drug Start: 03-11-2023 take 1 capsule by mouth every twelve hours Doxycycline Hyclate 100 MG 1 capsule Orally Twice a day for 5 days Feb, Active estradiol 0.5 mg oral tablet (1 source) Estrogen Start: 01-13-2022 take 2 tablets by mouth once daily estradiol 0.5 mg Tab mg tab(s), Oral, Daily, Refills(s) 0 Start Date: 01/13/22 Status: Ordered fluconazole 150 mg oral tablet (7 sources) Azole Antifungal Start: 02-23-2023 take 1 tablet by mouth every week Diflucan 150 MG 1 tablet Orally weekly for 14 days Feb, Active Start: 03-16-2022 Diflucan 150 M G 1 tablet Orally x1 for 1 days Mar, Active Prozac (2 sources) Serotonin Reuptake Inhibitor Start: 01-13-2022 Prozac Oral, Daily, Refills(s) 0 Start Date: 01/13/22 Status: Ordered levothyroxine sodium 0.175 mg oral tablet (20 sources) l-Thyroxine Start: 02-10-2023 End: 04-21-2023 take 1 tablet by mouth before mealtime levothyroxine (Synthroid) 175 MCG tablet Indications: Hypothyroidism, unspecified type (CMS/HCC) Take 1 tablet (175 mcg) by mouth in the morning. Take before meals. 30 tablet 11 02/10/2023 04/21/2023 Discontinued (Therapy completed) Start: 12-07-2022 take 1 tablet by tory th before mealtime levothyroxine (Synthroid, Levoxyl) 137 MCG tablet Take 137 mcg by mouth in the morning. Take before meals. 0 12/07/2022 Active Start: 12-01-2022 take 137 ug by mouth once edin y Levothyroxine Active 137 MCG PO Daily December 01, 2022 12:00am Start: 11-30-2022 take 175 ug by mouth once edin y Levothyroxine Active 175 MCG PO Daily November [...] 1 tablet Orally Once a day Active liothyronine sodium 0.005 mg oral tablet (1 source) l-Triiodothyronine take 1 tablet by mouth every twenty-four hours Liothyronine Sodium 5 MCG 1 tablet once a day Active 24 hr metFORMIN hydrochloride 500 mg extended release oral tablet (3 sources) Biguanide Start: 12-01-19 End: 12-02-19 take 500 mg by mouth twice daily Metformin Active 500 MG PO Twice daily 180 90 December 01, 2022 1:05pm Start: 10-12-2022 take 1 tablet by tory th every twenty-four hours at mealtime metFORMIN XR (Glucophage-XR) 500 MG 24 hr tablet Indications: Encounter for weight loss counseling , Metabolic syndrome Take 1 tablet (500 mg) by mouth in the evening. Take with meals. Do not crush, chew, or split. 30 tablet 3 10/12/2022 Active Mounjaro 2.5 mg/0.5 mL subcutaneous solution (2 [...] Active Start: 10-18-2022 take 1 tablet by [facility] once daily before breakfast Adipex-P 37.5 MG 1 tablet before breakfast Orally Once a day for 30 days Oct, Active Start: 09-17-2022 take 1 tablet by [facility] once daily before breakfast Adipex-P 37.5 MG [...] 2 days Orally Once a day for Aug, Active Start: 04-08-2021 take 1 tablet by tory every twelve hours predniSONE 20 MG 1 tablet Orally bid for 5 day(s) Mar, Active 24 hr propranolol hydrochloride 120 mg extended release oral capsule (6 sources) beta-Adrenergic Janie Start: 12-01-2022 End: 04-21-2023 take 1 capsule by mouth every twenty-four hours in the morning propranolol LA (Inderal LA) 120 MG 24 hr capsule Take 120 mg by mouth in the morning. 0 12/01/2022 04/21/2023 Discontinued (Therapy completed) Start: 12-01-2022 take 120 mg by mouth once edin y Propranolol Active 120 MG PO Daily December 01, 2022 12:00am Tirzepatide-Weight Management (Zepbound) 2.5 MG/0.5ML solution auto-injector (2 sources) Start: 04-20-2023 End: 05-18-2023 inject 1 mL by subcutaneous injection every week Tirzepatide-Weight Management (Zepbound) 2.5 MG/0.5ML solution auto-injector Indications: Insulin resistance Inject 1 Pen under the skin 1 (one) time per week for 28 days 0.5 mL 3 04/20/2023 05/18/2023 Active Start: 04-06-2023 End: 04-21-2023 inject 2.5 mg by subcutaneous injection every week Tirzepatide-Weight Management (Zepbound) 2.5 MG/0.5ML solution auto-injector Indications: Insulin resistance Inject 2.5 mg under the skin 1 (one) time per week 10 mL 1 04/06/2023 04/21/2023 Discontinued (Therapy completed) 24 hr venlafaxine 37.5 mg extended release oral capsule (16 sources) Serotonin and Norepinephrine Reuptake Inhibitor Start: 02-23-2023 End: 04-21-2023 take 1 capsule by mouth every twenty-four hours in the morning venlafaxine XR (Effexor XR) 37.5 MG 24 hr capsule Indications: Anxiety and depression (CMS/HCC) Take 1 capsule (37.5 mg) by mouth in the morning. Do not crush or chew.. 30 capsule 6 02/23/2023 04/21/2023 Discontinued (Therapy completed) take 1 tablet by tory th every twelve hours Venlafaxine HCl 75 MG 1 tablet with food Orally Twice a day Not-Taking Effexor Active Completed/Discontinued Medications Medication Drug Class(es) Dates Sig (Normalized) Sig (Original) methylPREDNISolone acetate 40 mg/ml injectable suspension (16 sources) Corticosteroid Start: 11-05-2022 DEPO-Medrol Oct, 60 mg Start: 03-16-2022 Medrol (Chad) 4 MG as directed Orally daily for 6 days Mar, Active methylPREDNISolo ne 4 MG TAKE 6 TABLETS ON DAY 1 DIRECTED ON PACKAGE AND DECREASE BY 1 TAB EACH DAY FOR A TOTAL OF 6 DAYS for 6 Active methylPREDNISolo ne 4 MG TAKE 6 TABLETS ON DAY 1 DIRECTED ON PACKAGE AND DECREASE BY 1 TAB EACH DAY FOR A TOTAL OF 6 DAYS for 6 Active triamcinolone acetonide 40 mg/ml injectable suspension (13 sources) Corticosteroid Start: 09-15-2022 Kenalog-40 Sep, 60 mg Problems Active Problems Problem Classification Problem Date Documented Da te Episodic/Chronic Abdominal pain (11 sources) Pelvic and perineal pain; Translations: [Unspecified abdominal pain] Onset: 3 Episodic Acute bronchitis (3 sources) Acute bronchitis; [...] Translations: [Tachycardia, unspecified] Onset: 4 11-30-2022 Episodic Chronic obstructive pulmonary disease and bronchiectasis (1 source) Bronchitis, not specified as acute or chronic Episodic Essential hypertension (7 sources) Essential hypertension; [...] deficiency] Episodic Other aftercare (1 source) 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; Translations: [OTH [employer] CURRENT DRUG THERAPY] Onset: 3 Episodic Other aftercare (3 sources) Long-term current use of drug therapy; Translations: [Other jail (current) drug therapy] Episodic Other aftercare (3 [...] UNSPECIFIED] Onset: 3 Episodic Other endocrine disorders (4 sources) Disorder of endocrine system; Translations: [Endocrine disorder, unspecified] 04-21-2023 Episodic Other female genital disorders (1 source) [...] nutritional; endocrine; and metabolic disorders (1 source) Insulin resistance; Translations: [Insulin resistance] 04-21-2023 Chronic Other nutritional; endocrine; and metabolic disorders (1 source) Metabolic syndrome X; Translations: [Metabolic syndrome] 04-21-2023 Chronic Other nutritional; endocrine; and metabolic disorders (16 sources) Weight gain; Translations: [Abnormal weight gain] [...] thigh, initial encounter] Onset: 11-18-2016 Episodic Unclassified (2 sources) Vaginal yeast infection B37.31 Unclassified (3 sources) Acute candidiasis of vulva and vagina; Translations: [Acute candidiasis of vulva and vagina] Results Test Name Value Interpretation Reference Range Facility A1C with Estimated Average G hussain 12-01-2022 Glucose [Mass/Vol] 120 mg/dL Normal [facility] Comment on above: Result Comment: PERF ORMED BY: [facility] [address] [place] [address] PATHOLOGIST SLIP DUMPER ISAIAS DE LA CRUZ M.D. Performed By: #### L IPID, HS TROP, A1C WTH eA ####[place] [address] [place] [id number] [facility] HbA1c (Bld) [Mass fraction] 5.8 % High 4.3-5.6 [facility] Comment on above: Result Comment: Incr eased risk for diabetes: 5.7 - 6.4 diabetes: >6.4 glycemic control for adults with diabetes: <7.0 Performed By: #### L IPID, HS TROP, A1C WTH eA ####[place] [address] [place] [id number] [facility] Cholesterol [Mass/volume] in Serum or PlasmaOrdered By: Baljinder Polanco on 12-01-2022 Cholesterol [Mass/Vol] 214 mg/dL 140-200 [facility] Comment on above: Chol less than 200 m g/dl low riskChol 201-239 mg/dl borderline riskChol 240 mg/dl and greater high risk Cholesterol in LDL Calc [Mas s/Vol]Ordered By: Baljinder Polanco on 12-01-2022 Cholesterol in LDL [Mass/Vol] 132 mg/dL 0-100 [facility] Comment on above: LDL ATP III CLASSIFI CATIONLDL less than 100 mg/dL OptimalLDL 100-129 mg/dL Near or above optimalLDL 130-159 mg/dL Borderline highLDL 160-189 mg/dL HighLDL greater than 189 mg/dL Very high Cholesterol in VLDL Calc [Ma ss/Vol]Ordered By: Baljinder Polanco on 12-01-2022 Cholesterol in VLDL [Mass/Vol] 27 mg/dL [facility] ECH echo transthoracicon [facility] echo transthoracic [facility] [address] [place] [id number] Echocardiogram Signed Patient: Karlene Vazquez MR#: [id number] : 1990 Acct:[id number] Age/Sex: 32 / F ADM Date: 11/30/22 Loc: Room: [address] [place] [address] Type: ADM INOo Attending Dr: Baljinder Polanco MD Ordering Provider: Baljinder Polanco MD Date of Service: 12/01/22 [facility] echo transthoracic: chest pain, abnormal troponins Copies to: MD Hammad Ambrose MD, [facility] Height: 69 in Weight: [...] 12/01/22 1120 Signed By: Hammad Adam MD, [facility] 12/01/22 1643 Normal [facility] Glucose mean value [Mass/vol ume] in Blood Estimated from glycated hemoglobinOrdered By: Baljinder Polanco on 12-01-2022 Average glucose Estimated from glycated hemoglobin (Bld) [Mass/Vol] 120 mg/dL [facility] Hemoglobin A1c percentageOrd ered By: Baljinder Polanco on 12-01-2022 HbA1c (Bld) [Mass fraction] 5.8 % 4.3-5.6 [facility] Comment on above: Increased risk for d iabetes: 5.7 - 6.4diabetes: >6.4glycemic control for adults with diabetes: <7.0 Lipid Panelon 12-01-2022 Cholesterol [Mass/Vol] 214 mg/dL High 140-200 [facility] Comment on above: Result Comment: Chol less than 200 mg/dl low risk Chol 201-239 mg/dl borderline risk Chol 240 mg/dl and greater high risk Performed By: #### L IPID, HS TROP, A1C [facility] eA ####[place] [address] [place] [id number] [facility] Cholesterol in HDL [Mass/Vol] 54 mg/dL Normal 23-92 [facility] Comment on above: Result Comment: HDL CHOL ATP-III CLASSIFICATION Cardiovascular Risk HDL > or equal to 60 mg/dL LOW HDL < 40 mg/dL HIGH Performed By: #### L IPID, HS TROP, [address] eA ####[place] [id number] [facility] Cholesterol.total/Chol esterol in HDL [Mass ratio] 4.0 {ratio} Normal <5.0 [facility] Comment on above: Result Comment: PERF ORMED BY: [facility] [address] [place] [address] PATHOLOGIST SLIP DUMPER ISAIAS DE LA CRUZ M.D. Performed By: #### L IPID, HS TROP, [address] eA ####[place] [id number] [facility] LDL Cholesterol,Calculated 132 mg/dL High 0-100 [facility] Comment on above: Result Comment: LDL ATP III CLASSIFICATION LDL less than 100 mg/dL Optimal LDL 100-129 mg/dL Near or above optimal LDL 130-159 mg/dL Borderline high LDL 160-189 mg/dL High LDL greater than 189 mg/dL Very high Performed By: #### L IPID, HS TROP, [address] eA ####[place] [id number] [facility] Triglyceride w/Reflex 139 mg/dL Normal 0-149 [facility] Comment on above: Result Comment: TRIG ATP III CLASSIFICATION TRIG less than 150 mg/dL Normal TRIG 150-199 mg/dL Borderline high TRIG 200-500 mg/dL High TRIG greater than 500 mg/dL Very high Standard traceable to the Center for Disease Conrtrol and Prevention (CDC) test method. Performed By: #### L IPID, HS TROP, A1C WT eA ####[place] [address] [place] [id number] [facility] VLDL CHOLESTEROL 27 mg/dL Normal [facility] Comment on above: Performed By: #### L IPID, HS TROP, A1C [facility] eA ####[facility] [place] [id number] [facility] Serum or plasma high density lipoprotein (HDL) cholesterol measurementOrdered By: Baljinder Polanco on 12-01-2022 Cholesterol in HDL [Mass/Vol] 54 mg/dL 23-92 [facility] Comment on above: HDL CHOL ATP-III CLA SSIFICATION Cardiovascular RiskHDL > or equal to 60 mg/dL LOWHDL < 40 mg/dL HIGH Serum or plasma total choles terol/high density lipoprotein (HDL) cholesterol mass ratOrdered By: Baljinder Polanco on 12-01-2022 Cholesterol.total/Chol esterol in HDL [Mass ratio] 4.0 {ratio} <5.0 [facility] Triglyceride [Mass/volume] i n Serum or PlasmaOrdered By: Baljinder Polanco on 12-01-2022 Triglyceride [Mass/Vol] 139 mg/dL 0-149 [facility] Comment on above: TRIG ATP III CLASSIF ICATIONTRIG less than 150 mg/dL NormalTRIG 150-199 mg/dL Borderline highTRIG 200-500 mg/dL High TRIG greater than 500 mg/dL Very highStandard traceable to the Center for Disease Conrtrol and Prevention (CDC) test method. Troponin I High Sensitivityo n 12-01-2022 Troponin I High Sensitivity 27.1 pg/mL High 0.0-15.0 [facility] Comment on above: Result Comment: PERF ORMED BY: [facility] [address] [place] [address] PATHOLOGIST SLIP DUMPER ISAIAS DE LA CRUZ M.D. Performed By: #### L IPID, HS TROP, A1C [facility] eA ####[facility] [place] [address] [facility] Troponin I.cardiac [Mass/vol ume] in Serum or Plasma by Detection limit <= 0.01 ng/Ordered By: Baljinder Polanco on 12-01-2022 Troponin I.cardiac DL <= 0.01 ng/mL [Mass/Vol] 27.1 pg/mL 0.0-15.0 [facility] Activated partial thrombopla stin time (aPTT) in platelet poor plasma by coagulation aOrdered By: Marcio Steven on 11-30-2022 aPTT Coag (PPP) [Time] 32.4 s 25.1-36.5 [facility] Comment on above: A hematocrit value g reater than 55% may lead to inaccurate results in coagulation testing. Patients having hematocrit values >55% require a special collection tube for coagulation studies. Please contact the laboratory at [phone] for redraw instructions. Alanine aminotransferase [En zymatic activity/volume] in Serum or PlasmaOrdered By: Marcio Steven on 11-30-2022 ALT [Catalytic activity/Vol] 16 U/L Normal 7-52 [facility] Comment on above: Performed By: #### U A #### [address] Albumin [Mass/volume] in Ser um or Plasma by Bromocresol green (BCG) dye binding methoOrdered By: Marcio Steven on 11-30-2022 Albumin BCG dye [Mass/Vol] 4.4 g/dL 3.5-5.7 [facility] Alkaline phosphatase [Enzyma tic activity/volume] in Serum or PlasmaOrdered By: Marcio Steven on 11-30-2022 ALP [Catalytic activity/Vol] 73 U/L Normal 34-104 [facility] Comment on above: Performed By: #### U A #### [address] Aspartate aminotransferase [ Enzymatic activity/volume] in Serum or PlasmaOrdered By: Marcio Steven on 11-30-2022 AST [Catalytic activity/Vol] 11 U/L Low 13-39 [facility] Comment on above: Performed By: #### U A #### [address] Automated basophil %Ordered By: Marcio Steven on 11-30-2022 Basophils/100 WBC (Bld) 0.8 % Normal . [facility] Comment on above: Performed By: #### B TURBINE ENGINEER, CK, CBC, HS TROP #### [place] [address] [place] Automated basophil countOrde red By: Marcio Steven on 11-30-2022 Basophils (Bld) [#/Vol] 0.1 10*3/uL Normal 0.0-0.2 [facility] Comment on above: Result Comment: PERF ORMED BY: [place] [address] PATHOLOGIST SLIP DUMPER ISAIAS DE LA CRUZ M.D. Performed By: #### B TURBINE ENGINEER, CK, CBC, HS TROP #### [address] Automated blood monocyte cou ntOrdered By: Marcio Steven on 11-30-2022 Monocytes (Bld) [#/Vol] 0.6 10*3/uL Normal 0.0-0.8 [facility] Comment on above: Performed By: #### B TURBINE ENGINEER, CK, CBC, HS TROP #### [address] Automated eosinophil %Ordere d By: Marcio Steven on 11-30-2022 Eosinophils/100 WBC (Bld) 0.9 % Normal . [facility] Comment on above: Performed By: #### B TURBINE ENGINEER, CK, CBC, HS TROP #### [address] Automated eosinophil countOr dered By: Marcio Steven on 11-30-2022 Eosinophils (Bld) [#/Vol] 0.1 10*3/uL Normal 0.0-0.45 [facility] Comment on above: Performed By: #### B TURBINE ENGINEER, CK, CBC, HS TROP #### [address] Automated monocyte %Ordered By: Marcio Steven on 11-30-2022 Monocytes/100 WBC (Bld) 6.8 % Normal . [facility] Comment on above: Performed By: #### B TURBINE ENGINEER, CK, CBC, HS TROP #### [address] Automated neutrophil %Ordere d By: Marcio Steven on 11-30-2022 Neutrophils/100 WBC (Bld) 59.2 % Normal . [facility] Comment on above: Performed By: #### B TURBINE ENGINEER, CK, CBC, HS TROP #### [facility] [address] BNP ser/plasOrdered By: Jack Steven on 11-30-2022 Natriuretic peptide B (Bld) [Mass/Vol] 13.0 pg/mL Normal 5-100 [facility] Comment on above: Result Comment: PERF ORMED BY: [place] [address] PATHOLOGIST SLIP DUMPER ISAIAS DE LA CRUZ M.D. Performed By: #### B TURBINE ENGINEER, CK, CBC, HS TROP #### [address] Basic Metabolic Panelon 11-12 Creatinine Clr Calc Pharmacy 114.08 Normal [facility] Comment on above: Performed By: #### U A #### [address] Calcium [Mass/Vol] 9.9910932 mg/dL Normal 8.6-10 .3 mg/dL Project Manager [facility] [employer] Other CO2 [Moles/Vol] 23.92913372 mmol/L Normal 21.0-3 1.0 mmol/L [employer] Other Creatinine [Mass/Vol] 0.90890400 mg/dL Normal 0. 60-1.20 mg/dL [employer] Other GFR/1.73 sq M.predicted MDRD (S/P/Bld) [Vol rate/Area] mL/min/{1.73_m2} Normal [employer] [facility] [employer] Other Comment on above: Performed By: #### U A #### [address] Potassium [Moles/Vol] 4.69077814 mmol/L Normal 3 .5-5.1 mmol/L [employer] Other Basic Metabolic PanelOrdered By: Marcio Steven on 11-30-2022 Chloride [Moles/Vol] 104 mmol/L Normal 98-107 [facility] Comment on above: Performed By: #### U A #### [address] Glucose [Mass/Vol] 77 mg/dL Normal 70-100 [facility] Comment on above: ADA recommended refe rence rangeRandom Glucose Reference Range is dependent on time and content of last meal. Glucose of more than 200 mg/dL in a nonstressed, ambulatory subject supports the diagnosis of Diabetes Mellitus. Result Comment: [place] om Glucose Reference Range is dependent on time and content of last meal. Glucose of more than 200 mg/dL in a nonstressed, ambulatory subject supports the diagnosis of Diabetes Mellitus. ADA recommended reference range Performed By: #### U A #### [address] Sodium [Moles/Vol] 138 mmol/L Normal 136-145 [facility] Comment on above: Performed By: #### U A #### [address] Urea nitrogen [Mass/Vol] 9 mg/dL Normal 7-25 [facility] Comment on above: Performed By: #### U A #### [address] Bilirubin Test strip Ql (U)O rdered By: Marcio Steven on 11-30-2022 Bilirubin Ql (U) Negative Negative [facility] Bilirubin.direct [Mass/volum e] in Serum or PlasmaOrdered By: Marcio Steven on 11-30-2022 Bilirubin.direct [Mass/Vol] 0.00 mg/dL 0.03-0.18 [facility] Comment on above: If the DBIL is less than 0.1, IBIL is not able to becalculated. Bilirubin.total [Mass/volume ] in Serum or PlasmaOrdered By: Marcio Steven on 11-30-2022 Bilirubin [Mass/Vol] 0.9 mg/dL Normal 0.3-1.0 [facility] Comment on above: Performed By: #### U A #### [address] [place] [address] [place] Bio[employer] Not Detectedon 11-30 [employer] Not Detected Not detected Normal Not Detecte [facility] Comment on above: Result Comment: This is a duplicate RP2.1 COVID (PCR) result to be used for statistical tracking purpose only. PERFORMED BY: [place] [address] PATHOLOGIST SLIP DUMPER ISAIAS DE LA CRUZ M.D. Performed By: #### R ZULEMA PANEL UPP., BIOFIRECOVNOTDE #### [address] COVID-19 Detected/Not Detect edOrdered By: Marcio Steven on 11-30-2022 SARS-CoV-2 (COVID-19) RNA LEO+non-probe Ql (Nph) Not detected Not Detecte [facility] Comment on above: This is a duplicate RP2.1 COVID (PCR) result to be used for statistical tracking purpose only. Calcium [Mass/volume] in Ser um or PlasmaOrdered By: Marcio Steven on 11-30-2022 Calcium [Mass/Vol] 9.5 mg/dL Normal 8.6-10.3 [facility] Comment on above: Performed By: #### U A #### [address] Carbon dioxide, total [Moles /volume] in Serum or PlasmaOrdered By: Marcio Steven on 11-30-2022 CO2 [Moles/Vol] 23.9 mmol/L Normal 21.0-31.0 [facility] Comment on above: Performed By: #### U A #### [address] Color Auto (U)Ordered By: Baljeet red Tenisha on 11-30-2022 Color (U) Yellow Yellow [facility] Complete Blood Count Auto Di ffon 11-30-2022 Mean Corpuscular HGB Conc 33.3 g/dL Normal 32.0-35.0 [facility] Comment on above: Performed By: #### B TURBINE ENGINEER, CK, CBC, HS TROP #### [facility] [address] [place] [address] [place] Monocytes/100 WBC (Bld) 19.22 % Normal 0.00-20.00 [facility] Comment on above: Performed By: #### B TURBINE ENGINEER, CK, CBC, HS TROP #### [facility] [address] [place] [address] [place] NRBC% 0.2 /100{WBC} Normal 0-0.5 [facility] Comment on above: Performed By: #### B TURBINE ENGINEER, CK, CBC, HS TROP #### [facility] [address] Basophils (Bld) [#/Vol] 0.645962405 10*3/uL Normal 0.0-0.2 10*3/uL [employer] Other Basophils/100 WBC (Bld) 0.800 % . % [employer] Other Eosinophils (Bld) [#/Vol] 0.167121675 10*3/uL Normal 0.0-0.45 10*3/uL [employer] Other Eosinophils/100 WBC (Bld) 0.900 % . % [employer] Other Erythrocyte distribution width (RBC) [Ratio] 14.300 % Normal 11.9-15.3 % [employer] Other Hematocrit (Bld) [Volume fraction] 41.000 % Normal 34.0-46.4 % [employer] Other Hemoglobin (Bld) [Mass/Vol] 13.204502 g/dL Normal 11.8-15.4 g/dL [employer] Other Lymphocytes (Bld) [#/Vol] 2.392114010 10*3/uL Normal 1.00-4.8 10*3/uL [employer] Other Lymphocytes/100 WBC (Bld) 32.300 % . % [employer] Other MCH (RBC) [Entitic mass] 27.0000 pg Normal 24.7-34.3 pg [employer] Other MCV (RBC) [Entitic vol] 81.0000 fL Normal 80-100 fL [employer] Other Monocytes (Bld) [#/Vol] 0.744025305 10*3/uL Normal 0.0-0.8 10*3/uL [employer] Other Monocytes/100 WBC (Bld) 6.800 % . % [employer] Other Neutrophils (Bld) [#/Vol] 4.521100637 10*3/uL Normal 1.8-7.7 10*3/uL [employer] Other Neutrophils/100 WBC (Bld) 59.200 % . % [employer] Other Platelet mean volume (Bld) [Entitic vol] 7.2000 fL Normal 6.3-10.7 fL [employer] Other WBC (Bld) [#/Vol] 8.878027616 10*3/uL Normal 3.8 -11.6 10*3/uL [employer] Other Complete Blood Count Auto Diff 8.2 10*3/uL Normal 3.8-11.6 10*3/uL [employer] Other Complete Blood Count Auto Diff 33.3 g/dL Normal 32.0-35.0 g/dL [employer] Other Complete Blood Count Auto Diff 0.2 /100{WBC} Normal 0-0.5 /100{WBC} [employer] Other Complete Blood Count Auto Di ffOrdered By: Marcio Steven on 11-30-2022 Platelets (Bld) [#/Vol] 368 10*3/uL Normal 150-450 [facility] Comment on above: Performed By: #### B TURBINE ENGINEER, CK, CBC, HS TROP #### [facility] [address] [place] [address] RBC (Bld) [#/Vol] 5.06 10*6/uL High 3.60-5.00 [facility] Comment on above: Performed By: #### B TURBINE ENGINEER, CK, CBC, HS TROP #### [facility] [address] Creatine kinase [Enzymatic a ctivity/volume] in Serum or PlasmaOrdered By: Marcio Steven on 11-30-2022 CK [Catalytic activity/Vol] 18 U/L Low 30-223 [facility] Comment on above: Performed By: #### B TURBINE ENGINEER, CK, CBC, HS TROP #### [facility] [address] Creatinine [Mass/volume] in Serum or PlasmaOrdered By: Marcio Steven on 11-30-2022 Creatinine [Mass/Vol] 0.83 mg/dL Normal 0.60-1.20 [facility] Comment on above: Performed By: #### U A #### [address] D-Dimer High Sensitivityon 0 11-30-2022 D-Dimer High Sensitivity < 200 Normal 0-243 [facility] Comment on above: Result Comment: [...] coagulation studies. Please contact the laboratory at [phone] for redraw instructions. PERFORMED BY: [place] [address] PATHOLOGIST SLIP DUMPER ISAIAS DE LA CRUZ M.D. Performed By: #### U A #### [address] [place] [address] [facility] ECG 12 lead ECGon 11-30-2022 ECG 12 lead ECG [facility] [address] [place] [address] Electrocardiograph Report Signed Patient: Karlene Vazquez MR#: [id number] : 1990 Acct:[id number] Age/Sex: 32 / F ADM Date: 11/30/22 Loc: ER Room: Type: [facility] ER Attending Dr: Ordering Provider: Marcio Steven DO Date of Service: 11/30/22 ECG/ECG 12 lead [...] ECGs available Confirmed by Marcio Steven DO ([id number]) on 11/30/2022 3:20:08 PM Referred By: Electronically Signed By:Marcio Steven DO Transcribed By: MUS Signed By Marcio Steven DO 3 1520 Normal [facility] Erythrocyte distribution wid th [Ratio] by Automated countOrdered By: Marcio Steven on 11-30-2022 Erythrocyte distribution width (RBC) [Ratio] 14.3 % Normal 11.9-15.3 [facility] Comment on above: Performed By: #### B TURBINE ENGINEER, CK, CBC, HS TROP #### [facility] [address] [place], [place] [id number] [facility] Fibrin D-dimer [Presence] in Platelet poor plasma by Latex agglutinationOrdered By: Marcio Steven on 11-30-2022 Fibrin D-dimer LA Ql (PPP) < 200 ng/mL 0-243 [facility] Comment on above: The reference [...] coagulation studies. Please contact the laboratory at [phone] for redraw instructions. Free T4 (Free Thyroxine)on 0 11-30-2022 Free T4 [Mass/Vol] 1.45884411 ng/dL High 0.61- 1.12 ng/dL [employer] Other Glucose Glucometer (BldC) [M ass/Vol]Ordered By: Baljinder Polanco on 11-30-2022 Glucose [Mass/Vol] 100 mg/dL [facility] Comment on above: Random Glucose Refer ence Range is dependent on time and content of last meal. Glucose of more than 200 mg/dL in a nonstressed, ambulatory subject supports the diagnosis of Diabetes Mellitus. Glucose Poct Glucometerson 0 11-30-2022 Glucose [Mass/Vol] 100 mg/dL Normal [facility] Comment on above: Result Comment: [place] om Glucose Reference Range is dependent on time and content of last meal. Glucose of more than 200 mg/dL in a nonstressed, ambulatory subject supports the diagnosis of Diabetes Mellitus. PERFORMED BY: [place] [address] PATHOLOGIST SLIP DUMPER ISAIAS DE LA CRUZ M.D. Performed By: #### U A #### [place] [id number] [facility] Hematocrit [Volume Fraction] of Blood by Automated countOrdered By: Marcio Steven on 11-30-2022 Hematocrit (Bld) [Volume fraction] 41.0 % Normal 34.0-46.4 [facility] Comment on above: Performed By: #### B TURBINE ENGINEER, CK, CBC, HS TROP #### [place] [id number] [facility] Hemoglobin [Mass/volume] in BloodOrdered By: Marcio Steven on 11-30-2022 Hemoglobin (Bld) [Mass/Vol] 13.7 g/dL Normal 11.8-15.4 [facility] Comment on above: Performed By: #### B TURBINE ENGINEER, CK, CBC, HS TROP #### [facility] [address] Hepatic Panelon 11-30-2022 Albumin [Mass/Vol] 4.4 g/dL Normal 3.5-5.7 [facility] Comment on above: Performed By: #### U A #### [facility] [address] Bilirubin,Indirect 0.9 mg/dL Normal [facility] Comment on above: Performed By: #### U A #### [facility] [address] Bilirubin.indirect [Mass/Vol] 0.00 mg/dL Low 0.03-0.18 [facility] Comment on above: Result Comment: If t he DBIL is less than 0.1, IBIL is not able to be calculated. Performed By: #### U A #### [facility] [address] INR in Platelet poor plasma by Coagulation assayOrdered By: Marcio Steven on 11-30-2022 INR Coag (PPP) [Relative time] 1.1 {INR} [facility] Comment on above: INR Therapeutic [...] on 11-30-2022 Ketones (U) [Mass/Vol] Trace Negative [facility] Leukocytes [#/volume] correc jocelynn for nucleated erythrocytes in Blood by Automated counOrdered By: Marcio Steven on 11-30-2022 WBC corrected for nucl RBC Auto (Bld) [#/Vol] 8.2 10*3/uL 3.8-11.6 [facility] Leukocytes [#/volume] in Blo od by Automated countOrdered By: Marcio Steven on 11-30-2022 WBC (Bld) [#/Vol] 8.2 10*3/uL Normal 3.8-11.6 [facility] Comment on above: Performed By: #### B TURBINE ENGINEER, CK, CBC, HS TROP #### [facility] [address] [place] [address] [place] Lymphocytes [#/volume] in Bl ood by Automated countOrdered By: Marcio Steven on 11-30-2022 Lymphocytes (Bld) [#/Vol] 2.7 10*3/uL Normal 1.00-4.8 [facility] Comment on above: Performed By: #### B TURBINE ENGINEER, CK, CBC, HS TROP #### [facility] [address] [place] [address] [place] Lymphocytes/100 leukocytes i n Blood by Automated countOrdered By: Marcio Steven on 11-30-2022 Lymphocytes/100 WBC (Bld) 32.3 % Normal . [facility] Comment on above: Performed By: #### B TURBINE ENGINEER, CK, CBC, HS TROP #### [facility] [address] MCH [Entitic mass] by [place] jocelynn countOrdered By: Marcio Steven on 11-30-2022 MCH (RBC) [Entitic mass] 27.0 pg Normal 24.7-34.3 [facility] Comment on above: Performed By: #### B TURBINE ENGINEER, CK, CBC, HS TROP #### [facility] [address] [place] [address] MCHC Auto (RBC) [Mass/Vol]Or dered By: Marcio Steven on 11-30-2022 MCHC (RBC) [Mass/Vol] 33.3 g/dL 32.0-35.0 [facility] MCV [Entitic volume] by Auto mated countOrdered By: Marcio Steven on 11-30-2022 MCV (RBC) [Entitic vol] 81.0 fL Normal 80-100 [facility] Comment on above: Performed By: #### B TURBINE ENGINEER, CK, CBC, HS TROP #### [facility] [address] [place] [address] Magnesium [Mass/volume] in S abdifatah or PlasmaOrdered By: Marcio Steven on 11-30-2022 Magnesium [Mass/Vol] 1.9 mg/dL Normal 1.9-2.7 [facility] Comment on above: Performed By: #### U A #### [facility] [address] [place] [address] Monocyte distribution width [Entitic volume] in Blood by AutomatedOrdered By: Marcio Steven on 11-30-2022 Monocyte distribution width Auto (Bld) [Entitic vol] 19.22 % 0.00-20.00 [facility] Neutrophils [#/volume] in Bl ood by Automated countOrdered By: Mracio Steven on 11-30-2022 Neutrophils (Bld) [#/Vol] 4.9 10*3/uL Normal 1.8-7.7 [facility] Comment on above: Performed By: #### B TURBINE ENGINEER, CK, CBC, HS TROP #### [facility] [address] [place] [address] Nitrite Test strip Ql (U)Ord ered By: Marcio tSeven on 11-30-2022 Nitrite Ql (U) Negative Negative [facility] No Panel InformationOrdered By: Marcio Steven on 11-30-2022 Estimated GFR (CKD-EPI) > 60.0 mL/Min [facility] Creatinine Clearance (Chem 114.08 [facility] Nucleated erythrocytes [Pres ence] in Blood by Automated countOrdered By: Marcio Steven on 11-30-2022 Nucleated RBC Auto Ql (Bld) 0.2 /100{WBC} 0-0.5 [facility] Partial Thromboplastin Timeo n 11-30-2022 aPTT Coag (Bld) [Time] 32.4 s Normal 25.1-36.5 [facility] Comment on above: Result Comment: A he matocrit value greater than 55% may lead to inaccurate results in coagulation testing. Patients having hematocrit values >55% require a special collection tube for coagulation studies. Please contact the laboratory at [phone] for redraw instructions. Performed By: #### U A #### [address] Platelet mean volume [Entiti c volume] in Blood by Automated countOrdered By: Marcio Steven on 11-30-2022 Platelet mean volume (Bld) [Entitic vol] 7.2 fL Normal 6.3-10.7 [facility] Comment on above: Performed By: #### B TURBINE ENGINEER, CK, CBC, HS TROP #### [address] Potassium [Moles/volume] in Serum or PlasmaOrdered By: Marcio Steven on 11-30-2022 Potassium [Moles/Vol] 4.1 mmol/L Normal 3.5-5.1 [facility] Comment on above: Performed By: #### U A #### [address] Protein Auto test strip (U) [Mass/Vol]Ordered By: Marcio Steven on 11-30-2022 Protein (U) [Mass/Vol] Negative Negative [facility] Protein [Mass/volume] in Ser um or PlasmaOrdered By: Marcio Steven on 11-30-2022 Protein [Mass/Vol] 7.6 g/dL Normal 6.4-8.9 [facility] Comment on above: Performed By: #### U A #### [address] Prothrombin Time INRon 11-30 INR Coag (PPP) [Relative time] 1.1 {INR} Normal [facility] Comment on above: Result Comment: [...] 4.5 Performed By: #### U A #### [facility] [address] [place] [id number] [facility] PT Coag (PPP) [Time] 12.5 s Normal 9.0-12.9 [facility] Comment on above: Result Comment: A he matocrit value greater than 55% may lead to inaccurate results in coagulation testing. Patients having hematocrit values >55% require a special collection tube for coagulation studies. Please contact the laboratory at [phone] for redraw instructions. Performed By: #### U A #### [facility] [address] [place] [address] [facility] Prothrombin time (PT)Ordered By: Marcio Steven on 11-30-2022 PT Coag (PPP) [Time] 12.5 s 9.0-12.9 [facility] Comment on above: A hematocrit value g reater than 55% may lead to inaccurate results in coagulation testing. Patients having hematocrit values >55% require a special collection tube for coagulation studies. Please contact the laboratory at [phone] for redraw instructions. Respiratory (Upper) Panel, P [...] A H3 Blank Space ---- PERFORMED BY: [place] [address] PATHOLOGIST SLIP DUMPER ISAIAS DE LA CRUZ M.D. [facility] Comment on above: Performed By: #### R ZULEMA PANEL UPP., BIOFIRECOVNOTDE #### [address] Respiratory pathogens DNA an d RNA panel - Nasopharynx by LEO with non-probe detectionOrdered By: Marcio Steven on 11-30-2022 Respiratory pathogens DNA and RNA panel LEO+non-probe (Nph) [facility] Serum globulin measurement b y calculation (mass/volume)Ordered By: Marcio Steven on 11-30-2022 Globulin (S) [Mass/Vol] 3.2 g/dL [facility] Comment on above: Performed By: #### U A #### [address] Serum or plasma albumin/glob ulin mass ratioOrdered By: Marcio Steven on 11-30-2022 Albumin/Globulin [Mass ratio] 1.4 {ratio} [facility] Comment on above: Performed By: #### U A #### [address] Serum or plasma anion gap de terminationOrdered By: Marcio Steven on 11-30-2022 Anion gap [Moles/Vol] 14.2 mmol/L Normal 6.0-15.0 [facility] Comment on above: Performed By: #### U A #### [address] Serum or plasma non-glucuron idated bilirubin measurement (mass/volume)Ordered By: Marcio Steven on 11-30-2022 Bilirubin.indirect [Mass/Vol] 0.9 mg/dL [facility] Specific gravity Auto test s trip (U) [Rel density]Ordered By: Marcio Sommerszi on 11-30-2022 Specific gravity (U) [Rel density] 1.013 1.001-1.03 0 [facility] Thyroid Stimulating Hormoneo n 11-30-2022 TSH Qn 0.33433396318 m[IU]/L Low 0.45-5 .33 u[iU]/mL [employer] Other Thyrotropin [Units/volume] i n Serum or PlasmaOrdered By: Marcio Steven on 11-30-2022 TSH Qn 0.03 m[IU]/L Low 0.45-5.33 [facility] Comment on above: Result Comment: PERF ORMED BY: [facility] [address] [place] [address] PATHOLOGIST SLIP DUMPER ISAIAS DE LA CRUZ M.D. Performed By: #### U A #### [facility] [address] Thyroxine (T4) free [Mass/vo lume] in Serum or PlasmaOrdered By: Marcio Steven on 11-30-2022 Free T4 [Mass/Vol] 1.56 ng/dL High 0.61-1.12 [facility] Comment on above: Performed By: #### U A #### [facility] [address] [place] [address] [place] Triiodothyronine (T3) Freeon 11-30-2022 Triiodothyronine (T3) Free 3.89 pg/mL Normal 2.50-3.90 [facility] Comment on above: Result Comment: PERF ORMED BY: [facility] [address] [place] [address] PATHOLOGIST SLIP DUMPER ISAIAS DE LA CRUZ M.D. Performed By: #### P TT, MG, T3F, DDIMER, T4F, BMP, PT, TSH3, HEPATIC ####[facility] [id number] [place] [address] [place] Triiodothyronine (T3) Free [ Mass/volume] in Serum or PlasmaOrdered By: Marcio Steven on 11-30-2022 Free T3 [Mass/Vol] 3.89 pg/mL 2.50-3.90 [facility] Troponin I High Sensitivityo n 11-30-2022 Troponin I High Sensitivity 38.7 pg/mL High 0.0-15.0 [facility] Comment on above: Result Comment: PERF ORMED BY: [place] [address] PATHOLOGIST SLIP DUMPER ISAIAS DE LA CRUZ M.D. Performed By: #### U A #### [address] US liveron 11-30-2022 liver [facility] [address] [place] [address] Ultrasound Report Signed Patient: Karlene Vazquez MR#: [id number] : 1990 Acct:[id number] Age/Sex: 32 / F ADM Date: 11/30/22 Loc: Room: [address] [place] [address] Type: ADM IN Attending Dr: Baljinder Polanco MD Ordering Provider: Baljinder Polanco MD Date of Service: 11/30/22 US/US liver: ruq pain Copies to: Baljinder Polanco MD EXAMINATION TYPE: US liver DATE [...] Crow Ramos M.D.11/30/2022 5:27 PM Dictation Location: [place] [address] Tech: Ophelia Queen Transcribed By: TORITO 11/30/221726 Dictated By: Crow Ramos II, MD 11/30/221725 Signed By: 11/30/22 172 Normal [facility] Urinalysison 11-30-2022 Appearance (U) Clear Normal Clear [facility] Comment on above: Order Comment: Name Collection Type:: Clean-Voided Midstream Performed By: #### U A #### [facility] [address] [place] [address] [place] Bilirubin,Urine Negative Normal Negative [facility] Comment on above: Order Comment: Name Collection Type:: Clean-Voided Midstream Performed By: #### U A #### [facility] [address] [place] [address] [place] Color (U) Yellow Normal Yellow [facility] Comment on above: Order Comment: Name Collection Type:: Clean-Voided Midstream Performed By: #### U A #### [facility] [address] [place] [address] [place] Glucose Ql (U) Normal Normal Normal [facility] Comment on above: Order Comment: Name Collection Type:: Clean-Voided Midstream Performed By: #### U A #### [facility] [address] [place] [id number] [place] Ketones Ql (U) Trace High Negative [facility] Comment on above: Order Comment: Name Collection Type:: Clean-Voided Midstream Performed By: #### U A #### [facility] [address] [place] [id number] [place] Leukocyte esterase Test strip Ql (U) Negative Normal Negative [facility] Comment on above: Order Comment: Name Collection Type:: Clean-Voided Midstream Performed By: #### U A #### [facility] [address] [place] [id number] [place] Nitrite,Urine Negative Normal Negative [facility] Comment on above: Order Comment: Name Collection Type:: Clean-Voided Midstream Performed By: #### U A #### [facility] [address] [place] [id number] [place] Occult Blood,Urine Negative Normal Negative [facility] Comment on above: Order Comment: Name Collection Type:: Clean-Voided Midstream Result Comment: PERF ORMED BY: [place] [address] PATHOLOGIST SLIP DUMPER ISAIAS DE LA CRUZ M.D. Performed By: #### U A #### [facility] [address] [place] [address] pH (U) [pH] Normal 5.0-9.0 [facility] Comment on above: Order Comment: Name Collection Type:: Clean-Voided Midstream Performed By: #### U A #### [facility] [address] [place] [address] [place] Protein,Urine Negative Normal Negative [facility] Comment on above: Order Comment: Name Collection Type:: Clean-Voided Midstream Performed By: #### U A #### [address] Specificy [place],Urine 1.013 Normal 1.001-1.03 0 [facility] Comment on above: Order Comment: Name Collection Type:: Clean-Voided Midstream Performed By: #### U A #### [facility] [address] [place] [address] [place] Urobilinogen,Urine Normal Normal Normal [facility] Comment on above: Order Comment: Name Collection Type:: Clean-Voided Midstream Performed By: #### U A #### [facility] [address] [place] [address] [place] Urine clarity by refractomet ry automatedOrdered By: Marcio Steven on 11-30-2022 Clarity Refractometry automated (U) Clear Clear [facility] Urine glucose measurement by automated test strip (mass/volume)Ordered By: Marcio Steven on 11-30-2022 Glucose Auto test strip (U) [Mass/Vol] Normal mg/dL Normal [facility] Urine hemoglobin detection b y automated test stripOrdered By: Marcio Steven on 11-30-2022 Hemoglobin Auto test strip Ql (U) Negative Negative [facility] Urine leukocyte esterase det ection by automated test stripOrdered By: Marcio Steven on 11-30-2022 Leukocyte esterase Auto test strip Ql (U) Negative Negative [facility] Urobilinogen Auto test strip (U) [Mass/Vol]Ordered By: Marcio Steven on 11-30-2022 Urobilinogen (U) [Mass/Vol] Normal mg/dL Normal [facility] XR chest 1V portableon 11-30 XR chest 1V portable [facility] [address] XRay Report Signed Patient: Karlene Vazquez MR#: [id number] : 1990 Acct:[id number] Age/Sex: 32 / F ADM Date: 11/30/22 Loc: ER Room: Type: [facility] ER Attending Dr: Copies to: Marcio Steven [...] Jovan Martin M.D.11/30/2022 1:58 PM Dictation Location: [place] [address] Transcribed By: [facility] 11/30/22 1358 Dictated By: Jovan Martin DO 11/30/22 1351 Signed By: 11/30/22 1358 Normal [facility] pH Auto test strip (U)Ordere d By: Marcio Steven on 11-30-2022 pH (U) [pH] 5.0-9.0 [facility] CORTISOL FREE, SERUMon 06-17 Cortisol, Free Dialysis, LCMS 0.649 ug/dL Normal [facility] Comment on above: Result Comment: Thes e tests were developed and their performance characteristics determined by [employer]. They have not been cleared or approved by the Food and Drug Administration. Reference Range: 8 AM 0.10 - 1.20 4 PM 0.042 - 0.872 Performed By: #### R [id number] #### [place] [facility] [address] [place] [address] Dr. Dimple Parsons CBC AUTO DIFFon 06-16-2022 BASO # 0.1 103/ul Normal 0.0-0.1 [facility] Comment on above: Performed By: #### R [id number] #### [place] [facility] [address] [place] [address] Dr. Dimple Parsons Basophils/100 WBC (Bld) 0.6 % Normal 0.2-2.0 [facility] Comment on above: Performed By: #### R [id number] #### [facility] [address] [place] [address] Dr. Dimple Parsons EO # 0.4 103/ul Normal 0.0-0.7 [facility] Comment on above: Performed By: #### R [id number] #### [facility] [address] [place] [address] Dr. Dimple Parsons Eosinophils/100 WBC (Bld) 4.0 % Normal 0.9-7.0 [facility] Comment on above: Performed By: #### R [id number] #### [place] [facility] [address] [place] [address] Dr. Dimple Parsons Erythrocyte distribution width (RBC) [Ratio] 13.8 % Normal 11.0-15.0 [facility] Comment on above: Performed By: #### R [id number] #### [facility] [address] [place] [address] Dr. Dimple Parsons Hematocrit (Bld) [Volume fraction] 39.8 % Normal 36.0-48.0 [facility] Comment on above: Performed By: #### R [id number] #### [facility] [address] [place] [address] Dr. Dimple Parsons Hemoglobin (Bld) [Mass/Vol] 12.9 g/dL Normal 12.0-16.0 [facility] Comment on above: Performed By: #### R [id number] #### [facility] [address] [place] [address] Dr. Dimple Parsons IG # 0.02 10e3/ul Normal 0.00-0.03 [facility] Comment on above: Performed By: #### R [id number] #### [place] [facility] [address] [place] [address] Dr. Dimple Parsons IG % 0.2 % Normal 0.0-0.5 [facility] Comment on above: Performed By: #### R [id number] #### [place] [facility] [address] [place] [address] [address] Dimple Parsons LYMPH # 3.1 103/ul Normal 1.2-3.8 [facility] Comment on above: Performed By: #### R [id number] #### [facility] [address] [place] [address] Dr. Dimple Parsons Lymphocytes/100 WBC (Bld) 33.5 % Normal 20.5-60.0 [facility] Comment on above: Performed By: #### R [id number] #### [facility] [address] [place] [address] Dr. Dimple Parsons MANUAL DIFF REQ NO Normal [facility] Comment on above: Performed By: #### R [id number] #### [place] [facility] [address] [place] [address] Dr. Dimple Parsons MCH (RBC) [Entitic mass] 26.1 pg Critically low 26.7-34.0 [facility] Comment on above: Performed By: #### R [id number] #### [facility] [address] [place] [address] Dr. Dimple Parsons MCHC (RBC) [Mass/Vol] 32.4 g/dL Normal 29.9-35.2 [facility] Comment on above: Performed By: #### R [id number] #### [place] [facility] [address] [place] [address] Dr. Dimple Parsons MCV (RBC) [Entitic vol] 80.4 fL Critically low 81.0-99.0 [facility] Comment on above: Performed By: #### R [id number] #### [facility] [address] [place] [address] Dr. Dimple Parsons MONO # 0.5 103/ul Normal 0.3-0.8 [facility] [place] [facility] Comment on above: Performed By: #### R [id number] #### [facility] [address] [place] [address] Dr. Dimple Parsons Monocytes/100 WBC (Bld) 5.2 % Normal 1.7-12.0 [facility] Comment on above: Performed By: #### R [id number] #### [facility] [address] [place] [address] Dr. Dimple Parsons NEUT # 5.2 103/ul Normal 1.4-6.5 [facility] Comment on above: Performed By: #### R [id number] #### [place] [facility] [address] [place] [address] Dr. Dimple Parsons Neutrophils/100 WBC (Bld) 56.5 % Normal 43.0-75.0 [facility] Comment on above: Performed By: #### R [id number] #### [facility] [address] [place] [address] Dr. Dimple Parsons Platelet mean volume (Bld) [Entitic vol] 8.7 fL Critically low 9.5-13.5 [facility] [place] [facility] Comment on above: Performed By: #### R [id number] #### [facility] [address] [place] [address] Dr. Dimple Parsons PLT 376 103/ul Normal 150-450 [facility] [place] [facility] Comment on above: Performed By: #### R [id number] #### [facility] [address] [place] [address] Dr. Dimple Parsons RBC 4.95 106/ul Normal 4.20-5.40 [facility] [place] [facility] Comment on above: Performed By: #### R [id number] #### [facility] [address] [place] [address] Dr. Dimple Parsons WBC 9.3 103/ul Normal 4.0-11.0 [facility] [place] [facility] Comment on above: Performed By: #### R [id number] #### [facility] [address] [place] [address] Dr. Dimple Parsons TESTOSTERONE, FREE,DIRECT, T OTALon 06-10-2022 Free Testosterone(Direct) 1.6 pg/mL Normal 0.0-4.2 [facility] Comment on above: Result Comment: Perf ormed at: BN Performed By: #### C BC #### [place] [facility] [address] [place] [address] Dr. Dimple Parsons Testosterone [Mass/Vol] 22 ng/dL Normal 8-60 [facility] Comment on above: Result Comment: Perf ormed at: CB Performed By: #### C BC #### [facility] [address] [place] [address] Dr. Dimple Parsons ESTROGENon 2022 Estrogens, Total 413 pg/mL Normal [facility] Comment on above: Result Comment: Prep ubertal < 40 Female Cycle: 1-10 Days 16 - 328 11-20 Days 34 - 501 21-30 Days 48 - 350 Post-Menopausal 40 - 244 Performed By: #### D HEASUL #### [facility] [address] [place] [address] Dr. Dimple Parsons SEROTONINon 2022 Serotonin, Serum 20 ng/mL Critically low 31-207 [facility] Comment on above: Performed By: #### S EROTON #### [facility] [address] [place] [address] Dr. Dimple Parsons REVERSE T3on 06-08-2022 Reverse T3, Serum 15.6 ng/dL Normal 9.2-24.1 [facility] Comment on above: Result Comment: This test was developed and its performance characteristics determined by [employer]. It has not been cleared or approved by the Food and Drug Administration. Performed By: #### R [email or web address] #### [facility] [address] [place] [address] Dr. Dimple Parsons VIT D 1 25 DIHYDROXYon 06-07 Calcitriol(1,25 di-OH Vit D) 12.2 pg/mL Critically low 24.8-81.5 [facility] Comment on above: Performed By: #### V [id number] #### [facility] [address] [place] [address] Dr. Dimple Parsons C-PEPTIDE, SERUMon C-Peptide, Serum 3.3 ng/mL Normal 1.1-4.4 [facility] Comment on above: Result Comment: C-Pe ptide reference interval is for fasting patients. Performed By: #### R [id number] #### [facility] [address] [place] [address] Dr. Dimple Parsons DHEA-SULFATEon 06-05-2022 DHEA-Sulfate 154.0 ug/dL Normal 84.8-378.0 [facility] Comment on above: Performed By: #### D SURINDER #### [facility] [address] [address] [address] Dimple Parsons ESTRADIOLon 06-05-2022 Estradiol 117.0 pg/mL Normal [facility] Comment on above: Result Comment: Adul t Female: Follicular phase 12.5 - 166.0 Ovulation phase 85.8 - 498.0 Luteal phase 43.8 - 211.0 Postmenopausal <6.0 - 54.7 1st trimester 215.0 - >4300.0 Kye ECLIA methodology Performed By: #### R [id number] #### [facility] [address] [address] [address] Dimple Parsons INSULINon 06-05-2022 Insulin 13.1 uIU/mL Normal 2.6-24.9 [facility] Comment on above: Performed By: #### C BC #### [facility] [address] [address] [address] Dimple Parsons PROGESTERONEon 06-05-2022 Progesterone 4.8 ng/mL Normal [facility] Comment on above: Result Comment: Foll icular phase 0.1 - 0.9 Luteal phase 1.8 - 23.9 Ovulation phase 0.1 - 12.0 First trimester 11.0 - 44.3 Second trimester 25.4 - 83.3 Third trimester 58.7 - 214.0 Postmenopausal 0.0 - 0.1 Performed By: #### D JESUS ALBERTOASJANENE #### [facility] [address] [place] [address] Dr. Dimple Parsons SEX HORMONE-BINDING GLOBULIN on 06-05-2022 Sex Horm Binding Glob, Serum 40.7 nmol/L Normal 24.6-122.0 [facility] Comment on above: Performed By: #### Jocelyne BC #### [facility] [address] [place] [address] Dr. Dimple Parsons T3, TOTAL (TRIIODOTHYRONINE) on 06-05-2022 T3, TOTAL 89 ng/dL Normal 71-180 [facility] [place] [facility] Comment on above: Performed By: #### Rob [email or web address] #### [facility] [address] [place] [address] Dr. Dimple Parsons THYROID PEROXIDASE ABon 05-13 Thyroid Peroxidase (TPO) Ab 12 IU/mL Normal 0-34 [facility] [place] [facility] Comment on above: Performed By: #### Inder CADENA #### [facility] [address] [place] [address] Dr. Dimple Parsons FERRITINon 06-04-2022 Ferritin [Mass/Vol] 193.0 ng/mL Critically high 6.2-137.0 [facility] Comment on above: Performed By: #### Inder CADENA #### [facility] [address] [place] [address] Dr. Dimple Parsons FREE T3on 06-04-2022 FREE T3 2.24 pg/mlL Normal 2.18-3.98 [facility] Comment on above: Performed By: #### Rob PABONRT3 #### [facility] [address] [place] [address] Dr. Dimple Parsons FREE T4on 06-04-2022 Free T4 [Mass/Vol] 1.14 ng/dL Normal 0.76-1.46 [facility] Comment on above: Performed By: #### Inder CADENA #### [facility] [address] [place] [address] Dr. Dimple Parsons GLUCOSE BLOODon 06-04-2022 Glucose [Mass/Vol] 92 mg/dL Normal 74-106 [facility] Comment on above: Performed By: #### Rob PABONRT3 #### [facility] [address] [place] [address] Dr. Dimple Parsons GLYCOHEMOGLOBIN A1Con 2022 ADA RECOMMENDATION SEE BELOW Normal [facility] Comment on above: Result Comment: ADA RECOMMENDED LIMIT 4.0 - 6.0 ADA THERAPEUTIC TARGET < 7.0 ACTION SUGGESTED > 7.0 Performed By: #### A 1C #### [facility] [address] [address] [address] Dimple Parsons Glucose [Mass/Vol] 100 mg/dL Normal [facility] Comment on above: Performed By: #### A 1C #### [facility] [address] [address] [address] Dimple Parsons HbA1c (Bld) [Mass fraction] 5.1 % Normal 4.5-6.2 [facility] Comment on above: Performed By: #### A 1C #### [facility] [address] [place] [address] Dr. Dimple Parsons T4on 06-04-2022 T4 [Mass/Vol] 8.60 ug/dL Normal 4.80-13.90 [facility] Comment on above: Performed By: #### R [id number] #### [facility] [address] [address] [address] Dimple Parsons TSHon 06-04-2022 TSH 0.442 uIU/mL Normal 0.358-3.74 0 [facility] Comment on above: Performed By: #### R [email or web address] #### [facility] [address] [place] [address] Dr. Dimple Parsons US PELVIS AND TRANSVAGon [...] by: KAYLA ACOSTA Date: 2022-05-25 13:36 Normal [facility] RAD - MISCon 05-24-2022 [facility] [id number]:12 7 Normal [facility] Ambulatory Visit Summaryon 0 05-21-2022 Ambulatory Visit Summary KARLENE VAZQUEZ :1990 Visit Date:05/21/2022 Ambulatory Visit Instructions Your Diagnosis Ureteral stone Kidney stone Stress incontinence Tests Performed Urnls Dip Stick Auto w/o Microscopy POC 49614 Your Care Team Attending Physician - Kamaljit [...] these instructions at home: Medicines ? Take ynln-lba-mtiuuzq and prescription medicines only as told by [...] 08/16/2008 Document Revised: 07/17/2019 Document Reviewed: 07/17/2019 [employer] Patient Education ? [address] Horacio Yeboah [facility] Urology Office/Clinic Noteon 05-21-2022 Urology Office/Clinic Note Chief Complaint Pt here for ER follow up 05-08-22 HPI Staff F/U to [facility] ER visit 05/08/22 due to Kidney Stone. [...] stone (N20.1: Calculus of ureter) Presented to [facility] ER 05/08/22 with sudden onset right flank [...] When Contact Information LUCY STILES, Kamaljit Rivas, URL [address] [place] [address]- Additional Instructions: 3 months to review met w/up Patient Education Kidney Stones, Soel-lm-Umhm I, Marce Mccarthy, personally scribed for Dr. Romero on 05/21/2022 10:47:06. . Documentation recorded by the Marce faye, accurately reflects the services(s) I performed and [...] is negative (more content not included)... Normal [facility] Comment on above: Result Comment: Elec tronically [...] by: DAVID ALDANA Date: 2022-05-21 06:53 Normal [facility] ED Note-Physicianon 05-17-19 ED Note-Physician [id number]:1 27 Normal [facility] RAD - CT Reporton 05-16-2022 RAD - CT Report [id number]:12 7 Normal [facility] RAD - Ultrasound Reporton RAD - Ultrasound Report [id number]#[id number]:1 27 Normal [facility] CBC AUTO DIFFon 05-08-2022 BASO # 0.0 103/ul Normal 0.0-0.1 [facility] Comment on above: Performed By: #### C BC #### [facility] [address] [place] [address] Dr. Dimple Parsons Basophils/100 WBC (Bld) 0.3 % Normal 0.2-2.0 [facility] Comment on above: Performed By: #### C BC #### [facility] [address] [address] [address] Dimple Parsons EO # 0.2 103/ul Normal 0.0-0.7 [facility] Comment on above: Performed By: #### C BC #### [facility] [address] [address] [address] Dimple Parsons Eosinophils/100 WBC (Bld) 1.3 % Normal 0.9-7.0 [facility] Comment on above: Performed By: #### C BC #### [facility] [address] [place] [address] Dr. Dimple Parsons Erythrocyte distribution width (RBC) [Ratio] 13.9 % Normal 11.0-15.0 [facility] Comment on above: Performed By: #### C BC #### [facility] [address] [place] [address] Dr. Dimple Parsons Hematocrit (Bld) [Volume fraction] 38.8 % Normal 36.0-48.0 [facility] Comment on above: Performed By: #### C BC #### [facility] [address] [place] [address] Dr. Dimple Parsons Hemoglobin (Bld) [Mass/Vol] 12.8 g/dL Normal 12.0-16.0 [facility] Comment on above: Performed By: #### C BC #### [facility] [address] [place] [address] Dr. Dimple Parsons IG # 0.15 10e3/ul Critically high 0.00-0.03 [facility] Comment on above: Performed By: #### C BC #### [facility] [address] [place] [address] Dr. Dimple Parsons IG % 1.3 % Critically high 0.0-0.5 [facility] Comment on above: Performed By: #### C BC #### [facility] [address] [place] [address] Dr. Dimple Parsons LYMPH # 3.4 103/ul Normal 1.2-3.8 [facility] Comment on above: Performed By: #### C BC #### [facility] [address] [place] [address] Dr. Dimple Parsons Lymphocytes/100 WBC (Bld) 28.9 % Normal 20.5-60.0 [facility] Comment on above: Performed By: #### C BC #### [facility] [address] [place] [address] Dr. Dimple Parsons MANUAL DIFF REQ NO Normal [facility] Comment on above: Performed By: #### C BC #### [facility] [address] [place] [address] Dr. Dimple Parsons MCH (RBC) [Entitic mass] 25.9 pg Critically low 26.7-34.0 [facility] Comment on above: Performed By: #### C BC #### [facility] [address] [address] [address] Dimple Parsons MCHC (RBC) [Mass/Vol] 33.0 g/dL Normal 29.9-35.2 [facility] Comment on above: Performed By: #### C BC #### [facility] [address] [address] [address] Dimple Parsons MCV (RBC) [Entitic vol] 78.5 fL Critically low 81.0-99.0 [facility] Comment on above: Performed By: #### C BC #### [facility] [address] [address] [address] Dimple Parsons MONO # 0.7 103/ul Normal 0.3-0.8 [facility] Comment on above: Performed By: #### C BC #### [facility] [address] [address] [address] Dimple Parsons Monocytes/100 WBC (Bld) 6.2 % Normal 1.7-12.0 [facility] Comment on above: Performed By: #### C BC #### [facility] [address] [address] [address] Dimple Parsons NEUT # 7.3 103/ul Critically high 1.4-6.5 [facility] Comment on above: Performed By: #### C BC #### [facility] [address] [address] [address] Dimple Parsons Neutrophils/100 WBC (Bld) 62.0 % Normal 43.0-75.0 [facility] Comment on above: Performed By: #### C BC #### [facility] [address] [address] [address] Dimple Parsons Platelet mean volume (Bld) [Entitic vol] 9.1 fL Critically low 9.5-13.5 [facility] Comment on above: Performed By: #### C BC #### [facility] [address] [address] [address] Dimple Parsons PLT 426 103/ul Normal 150-450 [facility] Comment on above: Performed By: #### C BC #### [facility] [address] [place], [place] [address] Dr. Dimple Parsons RBC 4.94 106/ul Normal 4.20-5.40 [facility] Comment on above: Performed By: #### C BC #### [facility] [address] [place], [place] [address] Dr. Dimple Parsons WBC 11.9 103/ul Critically high 4.0-11.0 [facility] Comment on above: Performed By: #### C BC #### [facility] [address] [place], [place] [address] ABD/PELVIS WO CONon [...] outpatient ultrasound. Note: Exam was submitted to [facility] operations Incidental Findings call que, to call the above findings to the patient's primary care provider nonemergently. Electronically authenticated by: RERE CARLISLE Date: 2022-05-08 05:24 Normal [facility] PROF 14(COMP METB)on 05-08- 023 Albumin [Mass/Vol] 4.0 g/dL Normal 3.4-5.0 [facility] Comment on above: Performed By: #### R [id number] #### [facility] [address] [place] [address] Dr. Dimple Parsons Albumin/Globulin [Mass ratio] 1.1 {ratio} Normal [facility] Comment on above: Performed By: #### R [email or web address] #### [facility] [address] [place] [address] Dr. Dimple Parsons ALP [Catalytic activity/Vol] 76 U/L Normal 46-116 [facility] Comment on above: Performed By: #### R [email or web address] #### [facility] [address] [place] [address] Dr. Dimple Parsons ALT [Catalytic activity/Vol] 20 U/L Normal 14-59 [facility] Comment on above: Performed By: #### R [email or web address] #### [facility] [address] [place] [address] Dr. Dimple Parsons Anion gap [Moles/Vol] 14.9 mmol/L Normal [facility] Comment on above: Performed By: #### R [email or web address] #### [facility] [address] [place] [address] Dr. Dimple Parsons AST [Catalytic activity/Vol] 19 U/L Normal 15-37 [facility] Comment on above: Performed By: #### R [email or web address] #### [facility] [address] [place] [address] Dr. Dimple Parsons Bilirubin [Mass/Vol] 0.6 mg/dL Normal 0.2-1.0 [facility] Comment on above: Performed By: #### R [email or web address] #### [facility] [address] [place] [address] Dr. Dimple Parsons Calcium [Mass/Vol] 9.0 mg/dL Normal 8.5-10.1 [facility] Comment on above: Performed By: #### R [email or web address] #### [facility] [address] [place] [address] Dr. Dimple Parsons Chloride [Moles/Vol] 103 mmol/L Normal 98-107 [facility] Comment on above: Performed By: #### R [email or web address] #### [facility] [address] [place] [address] Dr. Dimple Parsons CO2 [Moles/Vol] 25.5 mmol/L Normal 21.0-32.0 [facility] Comment on above: Performed By: #### R [email or web address] #### [facility] [address] [place] [address] Dr. Dimple aPrsons Creatinine [Mass/Vol] 0.75 mg/dL Normal 0.55-1.02 [facility] Comment on above: Performed By: #### R [email or web address] #### [facility] [address] [place] [address] Dr. Dimple Parsons EGFR-AF SLOVENIAN >60 Normal >=60 [facility] Comment on above: Performed By: #### R [email or web address] #### [facility] [address] [place] [address] Dr. Dimple Parsons EGFR-NON AF SLOVENIAN >60 Normal >=60 [facility] Comment on above: Performed By: #### R [email or web address] #### [facility] [address] [place] [address] Dr. Dimple Parsons Globulin (S) [Mass/Vol] 3.8 g/dL Normal [facility] Comment on above: Performed By: #### R [email or web address] #### [facility] [address] [place] [address] Dr. Dimple Parsons Glucose [Mass/Vol] 107 mg/dL Critically high 74-[address] [facility] Comment on above: Performed By: #### R [email or web address] #### [facility] [address] [place] [address] Dr. Dimple Parsons Potassium [Moles/Vol] 3.4 mmol/L Critically low 3.5-5.1 [facility] Comment on above: Performed By: #### R [email or web address] #### [facility] [address] [place] [address] Dr. Dimple Parsons Protein [Mass/Vol] 7.8 g/dL Normal 6.4-8.2 [facility] Comment on above: Performed By: #### R EVRT3 #### [facility] [address] [place] [address] Dr. Dimple Parsons Sodium [Moles/Vol] 140 mmol/L Normal 136-145 [facility] Comment on above: Performed By: #### R EVRT3 #### [facility] [address] [place] [address] Dr. Dimple Parsons Urea nitrogen [Mass/Vol] 7.0 mg/dL Normal 7.0-18.0 [facility] Comment on above: Performed By: #### R EVRT3 #### [facility] [address] [place] [address] Dr. Dimple Parsons Urea nitrogen/Creatinine [Mass ratio] 9.3 mg/mg Normal [facility] Comment on above: Performed By: #### R EVRT3 #### [facility] [address] [place] [address] Dr. Dimple Parsons US PELVIS TRANSVAGon 05-08- 023 US PELVIS TRANSVAG EXAMINATION: US PELV [...] by: MICKEY GALVAN Date: 2022-05-08 08:57 Normal [facility] [place] [facility] XR ankle LT min 3V*on 2021 XR ankle LT min 3V* [facility] [place] [address] [place] [address] XRay Report Signed Patient: Karlene Vazquez MR#: [id number] : 1990 Acct:[id number] Age/Sex: 31 / F ADM Date: 02/21/22 [facility] Type[facility] Attending Dr: Treasure EAST Copies [...] PROCESS. Impression dictated by: Hardik Inman Jr., D.OBishnu02/21/2022 12:42 PM Dictation Location: [place] [address] Transcribed By: TORITO 02/21/22 1242 Dictated By: Hardik Inman Jr, 02/21/22 1241 Signed By: 02/21/22 1242 [facility] Physician Referralon 022 Physician Referral [id number]:12 7 Normal [facility] Operative Reporton Operative Report [id number]:1 27 Normal [facility] Pre-Certification Formon Pre-Certification Form [id number]:12 7 [facility] Reportson 01-17-2022 Lab Reports [id number]:12 7 [facility] 01-16-2022 Lab Reports [id number]:12 7 [facility] CBC AUTO DIFFon 01-13-2022 BASO # 0.1 103/ul Normal 0.0-0.1 [facility] Comment on above: Performed By: #### C BC #### [facility] [address] [place] [address] Dr. Dimple Parsons Basophils/100 WBC (Bld) 0.5 % Normal 0.2-2.0 [facility] [place] [facility] Comment on above: Performed By: #### C BC #### [facility] [address] [place] [address] Dr. Dimple Parsons EO # 0.2 103/ul Normal 0.0-0.7 [facility] Comment on above: Performed By: #### C BC #### [facility] [address] [place] [address] Dr. Dimple Parsons Eosinophils/100 WBC (Bld) 2.3 % Normal 0.9-7.0 [facility] Comment on above: Performed By: #### C BC #### [facility] [address] [place] [address] Dr. Dimple Parsons Erythrocyte distribution width (RBC) [Ratio] 13.2 % Normal 11.0-15.0 [facility] Comment on above: Performed By: #### C BC #### [facility] [address] [place] [address] Dr. Dimple Parsons Hematocrit (Bld) [Volume fraction] 40.5 % Normal 36.0-48.0 [facility] Comment on above: Performed By: #### C BC #### [facility] [address] [place] [address] Dr. Dimple Parsons Hemoglobin (Bld) [Mass/Vol] 13.0 g/dL Normal 12.0-16.0 [facility] Comment on above: Performed By: #### C BC #### [facility] [address] [place] [address] Dr. Dimple Parsons IG # 0.01 10e3/ul Normal 0.00-0.03 [facility] Comment on above: Performed By: #### C BC #### [facility] [address] [place] [address] Dr. Dimple Parsons IG % 0.1 % Normal 0.0-0.5 [facility] Comment on above: Performed By: #### C BC #### [facility] [address] [place] [address] Dr. Dimple Parsons LYMPH # 2.6 103/ul Normal 1.2-3.8 [facility] Comment on above: Performed By: #### C BC #### [facility] [address] [place] [address] Dr. Dimple Parsons Lymphocytes/100 WBC (Bld) 27.4 % Normal 20.5-60.0 [facility] Comment on above: Performed By: #### C BC #### [facility] [address] [place] [address] Dr. Dimlpe Parsons MANUAL DIFF REQ NO Normal [facility] Comment on above: Performed By: #### C BC #### [facility] [address] [place] [address] Dr. Dimple Parsons MCH (RBC) [Entitic mass] 26.4 pg Critically low 26.7-34.0 [facility] Comment on above: Performed By: #### C BC #### [facility] [address] [address] [address] Dimple Parsons MCHC (RBC) [Mass/Vol] 32.1 g/dL Normal 29.9-35.2 [facility] [place] [facility] Comment on above: Performed By: #### C BC #### [facility] [address] [place] [address] Dr. Dimple Parsons MCV (RBC) [Entitic vol] 82.2 fL Normal 81.0-99.0 [facility] Comment on above: Performed By: #### C BC #### [facility] [address] [place] [address] Dr. Dimple Parsons MONO # 0.6 103/ul Normal 0.3-0.8 [facility] [place] [facility] Comment on above: Performed By: #### C BC #### [facility] [address] [place] [address] Dr. Dimple Parsons Monocytes/100 WBC (Bld) 6.2 % Normal 1.7-12.0 [facility] Comment on above: Performed By: #### C BC #### [facility] [address] [place] [address] Dr. Dimple Parsons NEUT # 6.1 103/ul Normal 1.4-6.5 [facility] Comment on above: Performed By: #### C BC #### [facility] [address] [place] [address] Dr. Dimple Parsons Neutrophils/100 WBC (Bld) 63.5 % Normal 43.0-75.0 [facility] Comment on above: Performed By: #### C BC #### [facility] [address] [place] [address] Dr. Dimple Parsons Platelet mean volume (Bld) [Entitic vol] 9.0 fL Critically low 9.5-13.5 [facility] [place] [facility] Comment on above: Performed By: #### C BC #### [facility] [address] [place] [address] Dr. Dimple Parsons PLT 346 103/ul Normal 150-450 [facility] Comment on above: Performed By: #### C BC #### [facility] [address] [place] [address] Dr. Dimple Parsons RBC 4.93 106/ul Normal 4.20-5.40 [facility] Comment on above: Performed By: #### C BC #### [facility] [address] [place] [address] Dr. Dimple Parsons WBC 9.5 103/ul Normal 4.0-11.0 [facility] Comment on above: Performed By: #### C BC #### [facility] [address] [place] [address] Dr. Dimple Parsons FREE T4on 01-13-2022 Free T4 [Mass/Vol] 1.39 ng/dL Normal 0.76-1.46 [facility] Comment on above: Performed By: #### C BC #### [facility] [address] [place] [address] Dr. Dimple Parsons PROF CHEM 8 (BAS METB)on Anion gap [Moles/Vol] 10.4 mmol/L Normal Th [facility] Comment on above: Performed By: #### Inder CADENA #### [facility] [address] [place] [address] Dr. Dimple Parsons Calcium [Mass/Vol] 9.0 mg/dL Normal 8.5-10.1 [facility] Comment on above: Performed By: #### Inder CADENA #### [facility] [address] [place] [address] Dr. Dimple Parsons Chloride [Moles/Vol] 101 mmol/L Normal 98-107 [facility] [place] [facility] Comment on above: Performed By: #### Inder CADENA #### [facility] [address] [place] [address] Dr. Dimple Parsons CO2 [Moles/Vol] 29.3 mmol/L Normal 21.0-32.0 [facility] Comment on above: Performed By: #### Inder CADENA #### [facility] [address] [address] [address] Dimple Parsons Creatinine [Mass/Vol] 0.79 mg/dL Normal 0.55-1.02 [facility] Comment on above: Performed By: #### Inder CADENA #### [facility] [address] [address] [address] Dimple Parsons EGFR-AF SLOVENIAN >60 Normal >=60 [facility] Comment on above: Performed By: #### Inder CADENA #### [facility] [address] [address] [address] Dimple Parsons EGFR-NON AF SLOVENIAN >60 Normal >=60 [facility] Comment on above: Performed By: #### Inder CADENA #### [facility] [address] [address] [address] Dimple Parsons Glucose [Mass/Vol] 92 mg/dL Normal 74-106 [facility] Comment on above: Performed By: #### Inder CADENA #### [facility] [address] [address] [address] Dimple Parsons Potassium [Moles/Vol] 3.7 mmol/L Normal 3.5-5.1 [facility] Comment on above: Performed By: #### Inder CADENA #### [facility] [address] [address] [address] Dimple Parsons Sodium [Moles/Vol] 137 mmol/L Normal 136-145 [facility] Comment on above: Performed By: #### Inder CADNEA #### [facility] [address] [address] [address] Dimple Parsons Urea nitrogen [Mass/Vol] 11.0 mg/dL Normal 7.0-18.0 [facility] Comment on above: Performed By: #### Inder CADENA #### [facility] [address] [address] [address] Dimple Parsons Urea nitrogen/Creatinine [Mass ratio] 13.9 mg/mg Normal [facility] Comment on above: Performed By: #### Inder CADENA #### [facility] [address] [place] [address] Dr. Dimple Parsons PROTIMEon 01-13-2022 INR Coag (PPP) [Relative time] 1.04 {INR} Normal [facility] Comment on above: Performed By: #### P TT, PT #### [facility] [address] [place] [address] Dr. Dimple Parsons INR GUIDELINES SEE BELOW Normal [facility] Comment on above: Result Comment: VISHAL RED INR: 2.0 - 3.0 CONDITIONS NOT LISTED BELOW 2.5 - 3.5 FOR PROSTHETIC HEART VALVE REPLACEMENT 2.5 - 3.5 RECURRENT THROMBOSIS Performed By: #### P TT, PT #### [facility] [address] [place] [address] Dr. Dimple Parsons PT Coag (PPP) [Time] 11.2 s Normal 9.0-11.6 [facility] Comment on above: Performed By: #### P TT, PT #### [facility] [address] [place] [address] Dr. Dimple Parsons PTTon 01-13-2022 aPTT Coag (Bld) [Time] 35.1 s Normal 22.3-36.2 [facility] Comment on above: Performed By: #### P TT, PT #### [facility] [address] [place] [address] Dr. Dimple Parsons Patient Educationon 01-14-20 Patient [...] 02/14/2013 Document Revised: 10/18/2018 Document Reviewed: 10/18/2018 [employer] Patient Education ? [address] [place] [address]. Normal [facility] TSHon 01-13-2022 TSH 1.528 uIU/mL Normal 0.358-3.74 0 [facility] Comment on above: Performed By: #### T SH #### [facility] [address] [address] [address] Dimple Parsons PAP ACOG PANEL 2: 30 to 65on 12-26-2021 . . Normal [facility] Comment on above: Result Comment: Perf ormed at: WB Performed By: #### C BC #### [facility] [address] [address] [address] Dimple Parsons Age Gdln ACOG Testing 30-65 Normal [facility] Comment on above: Performed By: #### C BC #### [facility] [address] [address] [address] Dimple Parsons DIAGNOSIS: Comment Normal [facility] Comment on above: Result Comment: NEGA TIVE FOR INTRAEPITHELIAL LESION OR MALIGNANCY. Performed at: WB Performed By: #### C BC #### [facility] [address] [place] [address] Dr. Dimple Parsons HPV Aptima Negative Normal Negative [facility] Comment on above: Result Comment: This nucleic acid amplification test detects fourteen high-risk HPV types (16,18,31,33,35,39,45,51,52,56,58,59,66,68) without differentiation. Performed at: =G Performed By: #### C BC #### [facility] [address] [place] [address] Dr. Dimple Parsons Methodology: Comment Normal [facility] Comment on above: Result Comment: This liquid based ThinPrep(R) pap test was screened with the use of an image guided system. Performed at: WB Performed By: #### C BC #### [facility] [address] [place] [address] Dr. Dimple Parsons Note: Comment Normal [facility] Comment on above: Result Comment: The Pap smear is a screening test designed to aid in the detection of premalignant and malignant conditions of the uterine cervix. It is not a diagnostic procedure and should not be used as the sole means of detecting cervical cancer. Both false-positive and false-negative reports do occur. . Performed at: WB Performed By: #### C BC #### [facility] [address] [place] [address] Dr. Dimple Parsons Performed by: Comment Normal [facility] Comment on above: Result Comment: Susan [employer] Room Attendant (ASCP) Performed at: WB Performed By: #### C BC #### [facility] [address] [place] [address] Dr. Dimple Parsons Specimen adequacy: Comment Normal [facility] Comment on above: Result Comment: Sati sfactory for evaluation. No endocervical component is identified. Performed at: WB Performed By: #### C BC #### [facility] [address] [place] [address] Dr. Dimple FOFANA Quick Testingon 2021 Result Negative [employer] Other Vital Signs Date Time Vital Sign Value Performing Clinician Facility 04-04-2023 14:15-0500 Body height 175.26 cm Surya Hodges Other [employer] Other 04-04-2023 14:15-0500 Body mass index (BMI) [Ratio] 30.42 kg/m2 Surya Hodges Other [employer] Other 04-04-2023 14:15-0500 Body weight 93.44 kg Surya Hodges Other [employer] Other 04-04-2023 14:15-0500 Diastolic blood pressure 85 mm[Hg] Surya Hodges Other [employer] Other 04-04-2023 14:15-0500 Systolic blood pressure 120 mm[Hg] Surya Hodges Other [employer] Other 12-17-2022 08:30-0400 Body height 175.26 cm Surya Hodges Other [employer] Other 12-17-2022 08:30-0400 Body mass index (BMI) [Ratio] 29.5 kg/m2 Surya Hodges Other [employer] Other 12-17-2022 08:30-0400 Body weight 90.63 kg Surya Hodges Other [employer] Other 12-17-2022 08:30-0400 Diastolic blood pressure 85 mm[Hg] Surya Hodges Other [employer] Other 12-17-2022 08:30-0400 Systolic blood pressure 120 mm[Hg] Surya Hodges Other [employer] Other 12-01-2022 12:00-0400 Body temperature 97.6 [degF] MD Surya Hodges Work Phone: [facility] 12-01-2022 12:00-0400 Diastolic blood pressure 77 mm[Hg] MD Surya Hodges Work Phone: [facility] 12-01-2022 12:00-0400 Heart rate 89 /min MD Surya Hodges Work Phone: [facility] 12-01-2022 12:00-0400 Respiratory rate 20 /min MD Surya Hodges Work Phone: [facility] 12-01-2022 12:00-0400 SaO2% (BldA) [Mass fraction] 99 % MD Surya Hodges Work Phone: [facility] 12-01-2022 12:00-0400 Systolic blood pressure 116 mm[Hg] MD Surya Hodges Work Phone: [facility] 12-01-2022 05:51-0400 Body weight 89.4 kg MD Surya Hodges Work Phone: [facility] 11-30-2022 16:30-0400 Body height 175.26 cm MD Surya Hodges Work Phone: [facility] 11-29-2022 11:15-0400 Body height 175.26 cm Surya Hodges Other [facility] [employer] Other 11-29-2022 11:15-0400 Body mass index (BMI) [Ratio] 28.79 kg/m2 Surya Hodges Other [employer] [facility] [employer] Other 11-29-2022 11:15-0400 Body temperature 97.1 [degF] Surya Hodges Other [employer] [facility] [employer] Other 11-29-2022 11:15-0400 Body weight 88.45 kg Surya Hodges Other [employer] Other 11-29-2022 11:15-0400 Diastolic blood pressure 88 mm[Hg] Surya Hodges Other [employer] Other 11-29-2022 11:15-0400 SaO2% (BldA) [Mass fraction] 98 % Surya Hodges Other [employer] Other 11-29-2022 11:15-0400 Systolic blood pressure 124 mm[Hg] Surya Hodges Other [employer] Other 11-18-2022 08:30-0400 Body height 175.26 cm Surya Hodges Other [employer] Other 11-18-2022 08:30-0400 Body mass index (BMI) [Ratio] 28.59 kg/m2 Surya Hodges Other [employer] Other 11-18-2022 08:30-0400 Body weight 87.82 kg Surya Hodges Other [employer] Other 11-18-2022 08:30-0400 Diastolic blood pressure 89 mm[Hg] Surya Hodges Other [employer] Other 11-18-2022 08:30-0400 Systolic blood pressure 131 mm[Hg] Surya Hodges Other [employer] Other 11-05-2022 10:00-0400 Body height 175.26 cm Surya Hodges Other [employer] Other 11-05-2022 10:00-0400 Body mass index (BMI) [Ratio] 29.68 kg/m2 Surya Hodges Other [employer] Other 11-05-2022 10:00-0400 Body weight 91.17 kg Surya Hodges Other [employer] Other 11-05-2022 10:00-0400 Diastolic blood pressure 85 mm[Hg] Surya Hodges Other [employer] Other 11-05-2022 10:00-0400 Systolic blood pressure 134 mm[Hg] Surya Hodges Other [employer] Other 10-18-2022 08:30-0400 Body height 175.26 cm Surya Hodges Other [employer] Other 10-18-2022 08:30-0400 Body mass index (BMI) [Ratio] 28.94 kg/m2 Surya Hodges Other [employer] Other 10-18-2022 08:30-0400 Body weight 88.91 kg Surya Hodges Other [employer] Other 10-18-2022 08:30-0400 Diastolic blood pressure 89 mm[Hg] Surya Hodges Other [employer] Other 10-18-2022 08:30-0400 Systolic blood pressure 137 mm[Hg] Surya Hodges Other [employer] Other 09-09-2022 10:15-0400 Body height 175.26 cm Surya Hodges Other [employer] Other 09-09-2022 10:15-0400 Body mass index (BMI) [Ratio] 29.12 kg/m2 Surya Hodges Other [employer] Other 09-09-2022 10:15-0400 Body weight 89.45 kg Surya Hodges Other [facility] [employer] Other 09-09-2022 10:15-0400 Diastolic blood pressure 89 mm[Hg] Surya Hodges Other [employer] [facility] [employer] Other 09-09-2022 10:15-0400 Respiratory rate 12 /min Surya Hodges Other [employer] [facility] [employer] Other 09-09-2022 10:15-0400 Systolic blood pressure 132 mm[Hg] Surya Hodges Other [facility] [employer] Other 05-21-2022 10:01-0500 Blood Pressure Location Kamaljit ROMERO [facility] 05-21-2022 10:01-0500 Diastolic blood pressure 80 mm[Hg] Kamaljit ROMERO [facility] 05-21-2022 10:01-0500 Heart rate 85 /min Kamaljit ROMERO [facility] 05-21-2022 10:01-0500 Systolic blood pressure 119 mm[Hg] Kamaljit ROMERO [facility] 01-13-2022 08:36-0400 Blood Pressure Location VERA KAUFMAN [facility] 01-13-2022 08:36-0400 Diastolic blood pressure 90 mm[Hg] VERA MANDEEP [facility] 01-13-2022 08:36-0400 Heart rate 91 /min VERA MANDEEP [facility] 01-13-2022 08:36-0400 Respiratory rate 16 /min VERA KAUFMAN [facility] 01-13-2022 08:36-0400 Systolic blood pressure 134 mm[Hg] VERA KAUFMAN [facility] 04-08-2021 15:30-0500 Body height 175.26 cm Treasure Quezada Other [employer] Other 04-08-2021 15:30-0500 Body mass index (BMI) [Ratio] 29.97 kg/m2 Treasure Mcclainmond Other [employer] Other 04-08-2021 15:30-0500 Body temperature 96.6 [degF] Treasure Quezada Other [employer] Other 04-08-2021 15:30-0500 Body weight 92.08 kg Treasure Quezada Other [employer] Other 04-08-2021 15:30-0500 Respiratory rate 18 /min Treasure Quezada Other [employer] Other 04-08-2021 15:30-0500 SaO2% (BldA) [Mass fraction] 98 % Treasure Quezada Other [employer] Other Encounters Encounter Date Encounter Type Care Provider Facility Start: 04-21-2023 End: 04-21-2023 ambulatory YESICA BECKER Not Available Start: 04-21-2023 End: 04-21-2023 Online digital e/m svc est pt <7 d 11-20 minutes Yesica Becker PA Work Phone: [facility] Comment on above: Insulin resistance; Metabolic syndrome; Hormone imbalance Start: 04-04-2023 End: 04-04-2023 ambulatory Surya Hodges Other [employer] Other Start: 04-04-2023 Office outpatient vi sit 15 minutes Surya Hodges [facility] Start: 03-11-2023 End: 03-11-2023 ambulatory Surya Hodges Other [employer] Other Start: 03-11-2023 Telephone encounter Surya Hodges [facility] Start: 02-09-2023 End: 02-09-2023 ambulatory YESICA BECKER Not Available Start: 01-12-2023 End: 01-12-2023 ambulatory Surya Hodges Other [employer] Other Start: 01-12-2023 Telephone encounter Surya Hodges [facility] Start: 12-17-2022 End: 12-17-2022 ambulatory Surya Hodges Other [employer] Other Start: 12-17-2022 Office outpatient vi sit 15 minutes Surya Hodegs [facility] Start: 11-30-2022 End: 12-01-2022 Evaluation and management of inpatient MD Surya Hodges Work Phone: [facility] Work Phone: Start: 11-30-2022 End: 12-01-2022 observation encounter MD Surya Hodges Work Phone: [facility] Work Phone: Start: 11-30-2022 End: 12-01-2022 ambulatory Baljinder Polanco [employer] Other Start: 11-30-2022 Telephone encounter Surya Hodges [facility] Start: 11-29-2022 End: 11-29-2022 ambulatory Surya Hodges Other [employer] Other Start: 11-29-2022 Office outpatient vi sit 15 minutes Surya Hodges [facility] Start: 11-29-2022 Telephone encounter Surya Hodges [facility] Start: 11-18-2022 End: 11-18-2022 ambulatory Surya Tracie Other [employer] Other Start: 11-18-2022 Office outpatient vi sit 10 minutes Surya Hodges [facility] Start: 11-05-2022 End: 11-05-2022 ambulatory Surya Tracie Other [employer] Other Start: 11-05-2022 Office outpatient vi sit 10 minutes Surya Tracie [facility] Start: 11-04-2022 End: 11-04-2022 ambulatory Surya Tracie Other [employer] Other Start: 11-04-2022 Telephone encounter Surya Tracie [facility] Start: 10-18-2022 End: 10-18-2022 ambulatory Surya Tracie Other [employer] Other Start: 10-18-2022 Office outpatient vi sit 10 minutes Surya Tracie [facility] Start: 09-17-2022 End: 09-17-2022 ambulatory Surya Tracie Other [employer] Other Start: 09-17-2022 Telephone encounter Surya Tracie [facility] Start: 09-09-2022 End: 09-09-2022 ambulatory Surya Tracie Other [employer] Other Start: 09-09-2022 Office outpatient vi sit 15 minutes Surya Hodges [facility] Start: 09-03-2022 ambulatory Kamaljit Hannah ty:[facility] Start: 06-18-2022 Encounter for other preprocedural examination DR BRENT ROLAND . [facility] Start: 06-16-2022 End: 06-16-[address] BRENT ROLAND . Facility: Start: 06-14-2022 End: 06-15-[address] BRENT ROLAND . Facility:[facility] Start: 06-14-2022 End: 06-15-2022 Encounter for other preprocedural examination DR BRENT ROLAND . Facility:[facility] Start: 06-04-2022 End: 06-05-[address] BRENT ROLAND . Facility:[facility] Start: 05-25-2022 End: 05-26-[address] BRENT ROLAND . Facility: Start: 05-21-2022 End: 05-22-2022 ambulatory Kamaljit ROMERO Facility:[facility] Start: 05-21-2022 End: 05-21-2022 Patient encounter procedure Kamaljit ROMERO [facility] Start: 05-20-2022 End: 05-21-[address] SURYA HODGES Facility:[facility] Start: 05-08-2022 End: 05-08-[address] SURYA HODGES Facility:[facility] Start: 03-23-2022 End: 04-16-2022 ambulatory BRINA SHEIKH Facility:[facility] Start: 03-16-2022 End: 03-16-2022 ambulatory Surya Hodges Other [employer] Other Start: 03-16-2022 Office outpatient vi sit 15 minutes Surya Hodges [facility] Start: 02-25-2022 Gynecological examin ation normal Surya Hodges Other [employer] Other Start: 02-25-[address] SURYA HODGES Facil ity:[facility]1 Start: 02-21-2022 End: 02-21-2022 ambulatory Treasure Quezada Facility:[facility] Start: 02-21-2022 End: 02-21-2022 ambulatory MD Surya Hodges Work Phone: [facility] Work Phone: Start: 02-21-2022 End: 02-21-2022 Patient encounter procedure MD Surya Hodges Work Phone: [facility] Start: 01-19-2022 End: 01-20-2022 ambulatory Dee Mirza Facility:[id number] Start: 01-13-2022 End: 01-14-[address] BRENT ROLAND . Facility: Start: 01-13-2022 ambulatory Kamaljit LUCY Facility :[facility] Start: 01-13-2022 End: 01-14-2022 ambulatory RONDA KAUFMAN Facility:[facility] Start: 01-13-2022 End: 01-13-2022 Patient encounter procedure VERA KAUFMAN [facility] Start: 12-21-2021 End: 12-21-[address] BRENT ROLAND . Facility: Start: 04-08-2021 (URG) Urgent Care Visit Treasure pimentel [facility] Start: 04-08-2021 End: 04-08-2021 ambulatory Treasure Quezada Other [employer] Other Start: 05-16-2020 Pre-procedure evalua tion check Surya Hodges Other [employer] Other Procedures Date Procedure Procedure Detail Performing Clinician Start: 11-30-2022 Ultrasonography of liver MD Surya Hodges Work Phone: Start: 11-30-2022 Respiratory Panel (PCR) MD Surya Hodges Work Phone: Start: 11-30-2022 Plain chest X-ray MD Bryanna Hodges Work Phone: Start: 02-21-2022 X-ray of left ankle MD Surya Hodges Work Phone: Start: 01-19-2022 Injection of urethra Margret ROMERO Appendectomy VERA KAUFMAN Cholecystectomy VERA PATRICIA Depression screening Surya Hodges Other Hysterectomy VERA KAUFMAN Hysterectomy Surya Hodges Other Insertion of intraut erine contraceptive device Surya Hodges Other MRI guided ablation of uterine fibroid VERAMT WALDRONRY End: 06-01-2018 Removal of intrauterine device Surya Hodges Other Plan of Treatment Date Care Activity Detail Author Start: 12-01-2022 [facility] Start: 11-30-2022 Hospital admission [facility] Start: 11-12-2022 Influenza vaccination Influenza Vacc ine (#1) [facility] Start: 06-10-2019 Screening for malignant neoplasm of cervix [facility] Start: 2010 Screening for malignant neoplasm of cervix Pap Smear [facility] CBC W Auto Differential panel - Blood CBC and differential Lab Routine Metabolic syndrome Hormone imbalance Ordered: 04/21/2023 [facility] Work Phone: Comment on above: Ordered: 04/21/2023 Patient Education Mediterranean Diet Hyperthyroidism (Overactive Thyroid) (DC) Propranolol Prediabetes (DC) [facility] Work Phone: Patient referral [facility] Work Phone: Immunizations Immunization Date Immunization Notes Care Provider Kathy holliday 04-20-2021 SARS-CoV-2 (COVID-19 ) mRNA BNT-162b2 vax VERA KAUFMAN [facility] Comment on above: Result Comment: 2021: TPVALL 08-14-2020 SARS-CoV-2 (COVID-19 ) Ad26 vaccine, recombinant VERA KAUFMAN [facility] Comment on above: Result Comment: 2021: TPVALL Payers Date Payer Category Payer Self-pay [id number] 2021 Unknown BCBS BCBS [id number] 2021-Present [phone] [address] [place] [address] [id number] 1989 Unknown [id number] 2.16.840.1.428541.3.579.2. 727 1989 Unknown [id number] 2.16.840.1.698158.3.579.2. 727 1989 Unknown [id number] 2.16.840.1.373067.3.579.2. 727 1989 Unknown [id number] 2.16.840.1.743768.3.579.2. 727 1989 Unknown [id number] 2.16.840.1.450893.3.579.2. 593 1989 Unknown [id number] 2.16.840.1.512722.3.579.2. 593 1989 Unknown [id number] 2.16.840.1.450626.3.579.2. 593 1989 Unknown [id number] 2.16.840.1.010180.3.579.2. 593 1989 Unknown [id number] 2.16.840.1.477974.3.579.2. 593 1989 Unknown [id number] 2.16.840.1.062080.3.579.2. 593 1989 Unknown [id number] 2.16.840.1.593107.3.579.2. 593 1989 Unknown [id number] 2.16.840.1.393547.3.579.2. 593 1989 Unknown [id number] 2.16.840.1.414692.3.579.2. 593 1989 Unknown [id number] 2.16.840.1.404657.3.579.2. 593 1989 Unknown [id number] 2.16.840.1.865495.3.579.2. 593 1989 Unknown [id number] 2.16.840.1.071229.3.579.2. 593 1989 Unknown [id number] 2.16.840.1.987793.3.579.2. 1259 1989 Unknown [id number] 2.16.840.1.582177.3.579.2. 1259 1959 Blue Cross Blue Shield DZNAN [id number] 2.16.840.1.754447.19 Unknown Lovilia BC/BS [id number] Unknown [id number] 2.16.840.1.701224.3.579.2. 531 Unknown [id number] 2.16.840.1.917459.3.579.2. 531 Social History Date Type Detail Facility Unknown if ever smoked [employer] Other Start: 02-09-[address] F [facility] Start: 01-13-2022 End: 09-24-2022 Tobacco smoking status Never smoked tobacco (finding) [facility] Tobacco smoking status Never [facility] Start: 1990 Sex Assigned At Female F [facility] Start: 02-09-2023 Alcohol intake Ex-drinker (finding) [facility] Start: 02-09-2023 History of Social function [facility] Start: 09-24-2022 Alcohol Comment occasional: dr kam wine & beer [facility] Start: 09-27-2022 Gender identity Identifies as female gender (finding) [facility] Goals Date Patient Goal Desired Activity /State Functional Status Date Assessment Result Facility 12-01-2022 Functional status Patient at Baseline [facility] Work Phone: 05-21-2022 Functional Status N/A [facility] 01-13-2022 Functional Status N/A [facility] Mental Status Date Assessment Result Facility 12-01-2022 Cognitive function Cognitive Sta tus Patient at Baseline [facility] Work Phone: Clinical Notes 04-08-2021 to 04-21-2023 MARGRET Canales - 04/21/2023 8:50 AM ESTMarisol BRYANNA Carter - 04/21/2023 8:50 AM EST Note Date & Type Note Facility 04-21-2023 History of Presen t illness Narrative Reason for Appointment: Patient ID: Tootie Vazquez is a 32 y.o. female who presents for telehealth follow up Patient presents today via telephone call for a telehealth appointment. Patients Phone #: [phone] (mobile) Current Medications: has a current medication list which includes the following prescription(s): fluconazole, levothyroxine, metformin xr, and zepbound. Medical History: Active Ambulatory Problems Diagnosis Date Noted No Active Ambulatory Problems Resolved Ambulatory Problems Diagnosis Date Noted No Resolved Ambulatory Problems Past Medical History: Diagnosis Date Allergic contact dermatitis due to plant Anxiety Essential hypertension (CMS/HCC) Fatigue Low iron Mood changes Non-smoker Obesity with body mass index of 30.0-39.9 Family History Problem Relation Name Age of Onset Hypertension Mother Hyperlipidemia Father Cervical cancer Maternal Grandmother Thyroid cancer Maternal Grandmother Thyroid disease Maternal Grandmother Throat cancer Maternal Grandmother Hypertension Maternal Grandmother Hyperlipidemia Maternal Grandmother Cancer Maternal Grandmother Hypertension Maternal Grandfather Thyroid cancer Paternal Grandmother Thyroid disease Paternal Grandmother Hypertension Paternal Grandmother Cancer Paternal Grandmother Leukemia Paternal Grandfather Cancer Paternal Grandfather Social History Tobacco Use Smoking status: Never Smokeless tobacco: Not on file Substance Use Topics Alcohol use: Not Currently Comment: occasional: drinks wine & beer Drug use: Never Past Surgical History: Procedure Laterality Date APPENDECTOMY 2008 CHOLECYSTECTOMY 2013 CYST REMOVAL 2008 ENDOMETRIAL ABLATION 06/30/2018 HYSTERECTOMY 12/28/2019 LAPAROSCOPY DIAGNOSTIC / BIOPSY / ASPIRATION / LYSIS 06/16/2022 Diagnostic Lap PAP SMEAR 12/01/2020 negative, HPV negative SALPINGECTOMY Bilateral 12/28/2019 TUBAL LIGATION Bilateral 2012 Allergies Allergen Reactions Adacel [Ekuokbu-Dellii-Xatmm Pertussis] Swelling Clindamycin Rash Vitals: Estimated body mass index is 31.45 kg/m as calculated from the following: Height as of 02/09/23: 5' 9 . Weight as of 02/09/23: 213 lb. BP: No LMP recorded. Assessment/Plan Encounter Diagnoses Name Primary? Insulin resistance Metabolic syndrome Hormone imbalance Patient called today to discuss zepbound and ozempic. Pt currently taking 1.2mg/0.33ml of semiglutide. We discussed diet, and exercise. Pt had been on mounjaro previously and states had better results. INS no longer covers and we discussed other options including diet clinics. Pt is going to continue with the semiglutide of 1.2mh as she just had this filled. Pt has been taking for 3 months . We will send order for cbc check [facility]. Pt aware and agrees to have blood work obtained. She will follow up in office in 3 months Documented by MARGRET Canales on behalf of: MARGRET Canales Cbc order was sent to [facility] for pt to have done. documented in this encounter [facility] 04-04-2023 Evaluation note Encounter Date Diagnosis Assessment Notes Mar, Bronchitis (ICD-10 - J40) Discussed diagnosis with patient. Finish entire course of antibiotic. Proair inhaler sent today for patient to use PRN cough/wheezing/s hortness of breath. Tessalon Pearles ordered to take as needed for cough. Increase fluids and rest. Fxpe-qgx-svyxtab antipyretics as needed. Warning signs and symptoms reviewed with patient today. Patient to go immediately to the ER should she experience any of these. Patient to notify office should her symptoms persist and not improve. Patient verbalizes understanding and agrees to treatment plan. Mar, Vaginal yeast infection (ICD-10 - B37.31) Pt requests diflucan to cover probable yeast infection w antibiotic. [employer] Other 12-29-2023 Evaluation note* Encounter Date Diagnosis Assessment Notes Treatment Notes Treatment Clinical Notes Feb, Sore throat (ICD-10 - J02.9) [employer] Other 10-06-2023 Evaluation note* Encounter Date Diagnosis Assessment Notes Treatment Notes Treatment Clinical Notes Dec, Hypothyroidism (ICD-10 - E03.9) Recheck in next 4-6 weeks. Continue healthy diet and exercise. [employer] Other 09-20-2023 Discharge summary Author Baljinder Polanco [facility] December 01, 2022 5:19pm Note Date/Time December 01, 2022 1:02pm [facility] [address] [place] [address] Discharge Summary Signed Patient: Karlene Vazquez MR#: [id number] : 1990 Acct:[id number] Age/Sex: 32 / F Adm Date: 3 Loc: Room: [address] [place] [address]: Baljinder Polanco MD Copies to: [...] Clear, Urine pH >= 9.0, Ur Specific [place] 1.013, Urine Protein Negative, Urine Glucose (UA) [...] % (Auto) 59.2, Lymph % (Auto) 32.3, Mckinley % (Auto) 6.8, Eos % (Auto) 0.9, Baso % (Auto) 0.8, Nucleat RBC Rel Count 0.2, Neut # (Auto) 4.9, Lymph # (Auto) 2.7, Mckinley # (Auto) 0.6, Eos # (Auto) 0.1, Baso # (Auto) 0.1, Monocyte Dist Width19.22 11/30/22 13:00: PHA Creatinine Clear 114.08, Sodium 138, Potassium 4.1, Zbhimagh749, Carbon Dioxide 23.9, Anion Gap 14.2, BUN 9, Creatinine 0.83, Est GFR (CKD-EPI) > 60.0, Glucose 77, Calcium 9.5, Magnesium 1.9, Total Bilirubin 0.9, DirectBilirubin 0.00 L, Indirect Bilirubin 0.9, AST 11 L, ALT 16, Alkaline Ujsqevbvuii59, Total Protein 7.6, Albumin 4.4, Globulin 3.2, [...] needed.) Documented By: Baljinder Polanco MD 12/01/22 4931 Signed By: <Electronically signed by Baljinder Polanco MD> 12/01/22 9800 [facility] Work Phone: 1(256) 263-523709-19-2023 History and physical note Author Baljinder Polanco [facility] November 30, 2022 4:34pm Note Date/Time November 30, 2022 4:34pm [facility] [address] [place] [address] Hospitalist H&P Signed Patient: Karlene Vazquez MR#: [id number] : 1990 Acct:[id number] Age/Sex: 32 / F Adm Date: 3 Loc: Room: [address] [place] [address] Type: ADM IN Attending Dr: Baljinder Polanco [...] rub or JVD. Peripheral pulses present bilaterally. Wjbnb-ht-opzo ultrasound is unremarkable. Lungs are clear to [...] contributes to her symptoms. DVT prophylaxis Xarelto [facility] Medical History (Updated 11/30/22 @ 15:13 by [...] % (Auto) 32.3 % (.) 11/30/22 13:00 Mckinley % (Auto) 6.8 % (.) 11/30/22 13:00 Eos % (Auto) 0.9 % (.) 11/30/22 13:00 Baso % (Auto) 0.8 % (.) 11/30/22 13:00 Nucleat RBC Rel Count 0.2 /100 WBC (0-0.5) 11/30/22 13:00 Neut # (Auto) 4.9 x10E3/uL (1.8-7.7) 11/30/22 13:00 Lymph # (Auto) 2.7 x10E3/uL (1.00-4.8) 11/30/22 13:00 Mckinley # (Auto) 0.6 x10E3/uL (0.0-0.8) 11/30/22 13:00 [...] >= 9.0 (5.0-9.0) 11/30/22 16:04 Ur Specific [place] 1.013 (1.001-1.030) 11/30/22 16:04 Urine Protein Negative [...] days): 1 Documented By: Baljinder Polanco MD 11/30/221630 Signed By: <Electronically signed by Baljinder Polanco MD> 11/30/22 163 [facility] Work Phone: 1(843) 945-869009-18-2023 Evaluation note* Encounter Date Diagnosis Assessment Notes [...] - E03.9) 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 Complete all doses. Wash all belongings that came in contact with plant oils. May continue to use Calamine lotion. Patient verbalized understanding and agreement with treatment plan. [employer] Other 08-07-2023 Evaluation note* Encounter Date Diagnosis [...] to ER and Follow-up with me immediately. [employer] Other 07-07-2023 Evaluation note* Encounter Date Diagnosis Assessment Notes Treatment Notes Treatment Clinical Notes Sep, Overweight (ICD-10 - E66.3) Sep, Body mass index [BMI] 29.0-29.9, adult (ICD-10 - Z68.29) [employer] Other 06-29-2023 Evaluation note* Encounter Date Diagnosis Assessment Notes Treatment Notes Treatment Clinical Notes Aug, Acute contact dermatitis (ICD-10 - L25.9) Take medications as directed. Complete all doses. Wash all belongings that came in contact with plant oils. May continue to use Calamine lotion. Patient verbalized understanding and agreement with treatment plan. [employer] Other 04-05-2023 NoteOPERATIVE NOTE OPERATION DATE: 06/16/2022 PROCEDURE: Diagnostic laparoscopy. PREOPERATIVE DIAGNOSIS: Pelvic pain, left ovarian cyst. POSTOPERATIVE DIAGNOSIS: Pelvic pain, left ovarian cyst. ANESTHESIA: General. SURGEON: Brent Roland D.O. DAY CAMP COUNSELOR: MIRNA Harden URINE OUTPUT: Yellow and clear. [...] taken to Recovery [facility] stable condition[facility] [place] [id number] Discharge instructions Patient Education 05/21/2022 10:45:43 Kidney Stones, Nwva-vq-Biiu Kidney Stones Kidney stones are rock-like masses [...] Follow these instructions at home: Medicines Take ajst-mjz-ajzfbun and prescription medicines only as told by [...] 08/16/2008 Document Revised: 07/17/2019 Document Reviewed: 07/17/2019 Elsevier Patient Education 2020 [employer] Follow Up Care 05/11/2022 13:32:37 With:LUCY STILES, Kamaljit Rivas, URL Address: [address] [place] [address]- When: Unknown [facility] 01-03-2023 Evaluation note* Encounter Date Diagnosis Assessment Notes Treatment Notes Treatment Clinical Notes Mar, Pharyngitis, unspecified etiology (ICD-10 - J02.9) New medications as directed. Increase fluids, rest, good hand washing. OTC for fever/discomfort. 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 F/U if no improvement in the next 72 hours Mar, Vaginal yeast infection (ICD-10 - B37.31) Will treat empirically for yeast, discharge and sx reported consistent with that of vaginal candidiasis. Instructed patient to take as directed, advised that she should feel improvement in about 2 days. [employer] Other 11-02-2022 NoteChief Complaint Referral-Stress Incontinence HPI [...] E&M of New Patient Moderate 45-59 Min 32320 Measure Post Void residual urine and/or bladder capacity by US- non-imaging 09784 Urnls Dip Stick Auto w/o Microscopy POC 55019 Follow-up With When Contact Information [facility] [place] [address] Business (1) Additional Instructions: for procedure [...] Dipstick: Negative (01/13/22 08:33:00) (more content not included)...[facility]Result Comment: Electronically Signed By: VERA KAUFMAN PA-C\Date and Time Signed: 01/13/2211:04 [id number] Hospital Discharge instructions Patient Education 01/13/2022 11:03:33 [...] 02/14/2013 Document Revised: 10/18/2018 Document Reviewed: 10/18/2018 [employer] Patient Education [address]. Follow Up Care 01/11/2022 14:36:11 With:[facility] Phil Address: [facility] [place] [address] Business (1) When: Unknown Comments:for procedure as scheduled [facility] 01-26-2022 Evaluation note* Encounter Date Diagnosis Assessment [...] Patient care instructions given in writting by [facility] Care At Home document. [employer] Other Evaluation + Plan note No data available for this section [facility] evaluation + Plan note Future Appointments Appointment Date:09/03/2022 08:00:00 AM Scheduled Provider:Kamaljit ROMERO MD Location:[facility] Appointment Type:URO Office Visit [facility] evaluation noteNo assessment information available [facility] [employer] Work Phone: evaluation noteNo InformationNort [facility] Other evalukraul note* Diagnosis Onset Date Resolution Status Chest pain acute Tachycardia acute [facility] [employer] Work Phone: evaluation note* Diagnosis Insulin resistance Other abnormal glucose Metabolic syndrome Dysmetabolic Syndrome X Hormone imbalance documented in this encounter [facility] N[facility] - Reported* Type Description Date Medical History hypothyroidism Surgical History gallbladder removal Surgical History appendecs Surgical History ovarian cysts taken out in 2007 Surgical History hysterectomy Hospitalization History surgeries Hospitalization History child [employer] Other [facility] general Narrative - Reported* Type Description Date Medical History hypothyroidism Surgical History gallbladder removal Surgical History appendecs Surgical History ovarian cysts taken out in 2007 Surgical History hysterectomy Hospitalization History surgeries Hospitalization History child Hospitalization History [facility] chest pain 11/2022 [employer] Other Hospital Discharge instructions Additional Instructions You have slightly elevated cholesterol level and prediabetes. Try to eat a healthier diet. Mediterranean diet is the best studied to improve health outcomes. I attached some instructions. Establish care with a primary care physician who will manage all your health issues.[facility] Work Phone: Progress note No data available for this section [facility] Advance Directives Advance Directive Response Recorded Date/ [...] FOR VISIT (unrecogniz ed section and content) Reason Comments telehealth follow up Patient Care team informatio n (unrecognized section and content) Team Status: Inactive Member Role Status Dates Surya Hodges MD Primary Care Provider Active Treasure Quezada NP-C Attending Provider Active Team Status: Active Member Role Status Dates Surya Hodges MD Primary Care Provider Active Team Status: Inactive Member Role Status Dates Surya Hodges MD Primary Care Provider Active Marcio Steven DO Emergency Provider Active Baljinder Polanco MD Admit Provider, Attending Provider Active Intelligence Group Supervisor Relationship Specialty Start Date End Date Surya Hodges MD [address] [place] [id number] PCP - General Family Medicine 09/27/22 Goals (unrecognized section and content) Goals may be documented in a n alternate section INFORMATION SOURCE (unrecogn ized section and content) DATE CREATED AUTHOR 05/23/2022 [facility] DATE CREATED AUTHOR AUTHOR'S ORGANIZ ATION 07/01/2022 [facility] DATE CREATED AUTHOR AUTHOR'S ORGANIZ ATION 12/18/2022 [facility] DATE CREATED AUTHOR AUTHOR'S ORGANIZ ATION 04/22/2023 [facility] Specialists EPIC FOR RECORDS PERTAINING TO PATIENTS WHO ARE [...] BE BASED ON THE PRIMARY CLINICAL RECORDS. [employer] [facility]. provides no warranty or guarantee of the accuracy or completeness of information in this document.
--- NOTE | 2023-05-02 11:55 | ECG_ITS ---
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
--- NOTE | 2023-05-02 11:56 | ED.GENADUL1 ---
HPI - General Adult General Chief complaint: Upper Respiratory Infection Stated complaint: SORE THROAT/FATIGUE Time Seen by Provider: 05/02/23 11:51 Source: patient Mode of arrival: walk-in Limitations: no limitations History of Present Illness HPI narrative: 32-year-old female presents for sore throat. She woke up today with pain on the right side of her throat and it hurts more to swallow. No fever. She was noted to be tachycardic at triage but has not had a known fever. She does not have palpitations. No vomiting or diarrhea. Related Data Previous Rx's Medication Instructions Recorded acetaminophen 300 mg-codeine 30 mg 1 tab PO Q6H PRN pain 5 days #20 05/02/23 tablet tabs penicillin V potassium 250 mg 250 mg PO QID 10 days #40 tabs 05/02/23 tablet Allergies Allergy/AdvReac Type Severity Reaction Status Date / Time azithromycin [From Zithromax] Allergy Severe Verified 05/02/23 11:38 pertussis vaccine,adsorbed Allergy Severe Verified 05/02/23 11:38 Review of Systems ROS Narrative A ten point review of systems is negative except as noted above. PFSH PFSH Social History Smoking status: Never smoker Exam Narrative Exam Narrative: Nurses note and vital signs reviewed and patient is not hypoxic. General: The patient appears in no apparent distress. Patient is resting comfortably on cart. She is handling her oral secretions well Skin: Warm, dry, no pallor noted. There is no rash noted. Head: Normocephalic, atraumatic Eye: Normal conjunctiva, no drainage Ears, Nose, Mouth, and Throat: oral mucosa is moist. Nares patent. Uvula midline. She has mild right-sided cervical adenopathy. No exudate noted. Cardiovascular: Regular Rate and Rhythm Respiratory: Patient is in no distress, no accessory muscle use, lungs are clear to auscultation, no wheezing, rales or rhonchi Back: non-tender GI: Soft and nontender Musculoskeletal: The patient has no evidence of calf tenderness, no pitting edema, symmetrical pulses noted bilaterally Neurological: A&O, normal speech Psychiatric: Cooperative Constitutional Vital Signs, click to edit/add: Last Vital Signs Temp 99 F 05/02/23 11:39 Pulse 115 H 05/02/23 13:30 Resp 1 L 05/02/23 13:30 BP 123/94 H 05/02/23 11:48 Pulse Ox 98 05/02/23 11:46 O2 Del Method Room Air 05/02/23 11:39 Course Vital Signs Vital signs: Vital Signs Temperature 99 F 05/02/23 11:39 Pulse Rate 135 H 05/02/23 11:39 Respiratory Rate 20 05/02/23 11:39 Blood Pressure 123/94 H 05/02/23 11:39 Pulse Oximetry 99 05/02/23 11:39 Oxygen Delivery Method Room Air 05/02/23 11:39 Temperature 99 F 05/02/23 11:39 Pulse Rate 115 H 05/02/23 13:30 Respiratory Rate 1 L 05/02/23 13:30 Blood Pressure 123/94 H 05/02/23 11:48 Pulse Oximetry 98 05/02/23 11:46 Oxygen Delivery Method Room Air 05/02/23 11:39 Medical Decision Making MDM Narrative Medical decision making narrative: The patient has strep throat. I have no clinical evidence of peritonsillar abscess. She was tachycardic but her heart rate has come down with IV fluids. Blood work nonspecific and Monospot is negative. She is able to be discharged home. Treatment diagnosis and follow-up were discussed with the patient. Differential Diagnosis Differential Diagnosis: Strep throat, viral pharyngitis, mono, peritonsillar abscess Lab Data Lab results reviewed: Yes I reviewed the patient's lab results Labs: Lab Results 05/02/23 05/02/23 Range/Units 12:04 12:06 WBC 12.4 H (4.0-11.0) 10^3/uL RBC 4.88 (4.20-5.40) 10^6/uL Hgb 13.6 (12.0-16.0) g/dL Hct 41.6 (36.0-48.0) % MCV 85.2 (81.0-99.0) fL MCH 27.9 (26.7-34.0) pg MCHC 32.7 (29.9-35.2) g/dL RDW 13.1 (11.0-15.0) % Plt Count 369 (150-450) 10^3/uL MPV 8.9 L (9.5-13.5) fL Neut % (Auto) 85.0 H (43.0-75.0) % Lymph % (Auto) 7.9 L (20.5-60.0) % [place] % (Auto) 6.3 (1.7-12.0) % Eos % (Auto) 0.1 L (0.9-7.0) % Baso % (Auto) 0.4 (0.2-2.0) % Neut # (Auto) 10.5 H (1.4-6.5) 10^3/uL Lymph # (Auto) 1.0 L (1.2-3.8) 10^3/uL [place] # (Auto) 0.8 (0.3-0.8) 10^3/uL Eos # (Auto) 0.0 (0.0-0.7) 10^3/uL Baso # (Auto) 0.1 (0.0-0.1) 10^3/uL Abs Immat Gran (auto) 0.04 H (0.00-0.03) 10^3/uL Imm/Tot Granulo (auto) 0.3 (0.0-0.5) % Sodium 137 (136-145) mmol/L Potassium 4.0 (3.5-5.1) mmol/L Chloride 101 (98-107) mmol/L Carbon Dioxide 24.8 (21.0-32.0) mmol/L Anion Gap 15.2 BUN 5.0 L (7.0-18.0) mg/dL Creatinine 0.89 (0.55-1.02) mg/dL Est GFR ( Amer) >60 (>=60) Est GFR (Non-Af Amer) >60 (>=60) BUN/Creatinine Ratio 5.6 Glucose 112 H (74-106) mg/dL Calcium 8.7 (8.5-10.1) mg/dL Monoscreen Negative (NEGATIVE) Influenza Type A Ag Negative Influenza Type B Ag Negative SARS-CoV-2 Ag (CV2AG) Negative (NEGATIVE) Streptococcus Screen Positive A Discharge Plan Discharge Chief Complaint: Upper Respiratory Infection Clinical Impression: Strep throat Patient Disposition: Home, Self-Care Time of Disposition Decision: 14:05 Condition: Good Mode of Transportation: Private Vehicle Prescriptions / Home Meds: New acetaminophen-codeine 300-30 mg tablet 1 tab PO Q6H PRN (Reason: pain) 5 Days Qty: 20 0RF penicillin V potassium 250 mg tablet 250 mg PO QID 10 Days Qty: 40 0RF Instructions: Strep Throat (ED) Stand Alone Forms: Portal Instructions Referrals: Aminta Piper MD [Primary Care Provider] - 1 week
[2023-05-02 12:14] LABS: Basophils Absolute Auto 0.1 10^3/uL (0.0-0.1); Basophils Percent Auto 0.4 % (0.2-2.0); Eosinophils Percent Auto 0.1 % (0.9-7.0); Hematocrit 41.6 % (36.0-48.0); Hemoglobin 13.6 g/dL (12.0-16.0); Immature Granulocytes Abs Auto 0.04 10^3/uL (0.00-0.03); Immature Granulocytes Pct Auto 0.3 % (0.0-0.5); Lymphocytes Percent Auto 7.9 % (20.5-60.0); Mean Corpuscular HGB Conc 32.7 g/dL (29.9-35.2); Mean Corpuscular Hemoglobin 27.9 pg (26.7-34.0); Mean Corpuscular Volume 85.2 fL (81.0-99.0); Mean Platelet Volume 8.9 fL (9.5-13.5); Monocytes Absolute Auto 0.8 10^3/uL (0.3-0.8); Monocytes Percent Auto 6.3 % (1.7-12.0); Neutrophils Absolute Auto 10.5 10^3/uL (1.4-6.5); Platelet Count 369 10^3/uL (150-450); Red Blood Count 4.88 10^6/uL (4.20-5.40); Red Cell Distribution Width 13.1 % (11.0-15.0); White Blood Count 12.4 10^3/uL (4.0-11.0)
[2023-05-02] MEDS: KETOROLAC TROMETHAMINE 30 MG/ML VIAL IVP (12:17)
[2023-05-02] MEDS: 0.9 % SODIUM CHLORIDE 1,000 ML 1000 ML IV (12:17)
[2023-05-02 12:20] LABS: Anion Gap 15.2; BUN Creatinine Ratio 5.6; Calcium 8.7 mg/dL (8.5-10.1); Carbon Dioxide 24.8 mmol/L (21.0-32.0); Chloride 101 mmol/L (98-107); Estimated GFR (African America >60 (>=60); Estimated GFR (Non-African Ame >60 (>=60); Glucose 112 mg/dL (74-106); Sodium 137 mmol/L (136-145)
[2023-05-02 12:22] LABS: Mono Screen NEGATIVE (NEGATIVE)
[2023-05-02 12:44] LABS: Internal Control Within Normal Limits; SARS-CoV-2 Ag NEGATIVE (NEGATIVE); Strep A Antigen Screen Positive
[2023-05-02 12:45] LABS: Influenza Virus A Antigen Negative; Influenza Virus B Antigen Negative; Internal Control Within Normal Limits
== END 2023-05-02 14:20 | disposition home or self-care (01) ==
PROVIDERS: Emergency Provider Emergency Medicine; PCP Family Medicine
DX: J02.0 Streptococcal pharyngitis (principal)
CPT/HCPCS: 36415; 80048; 85025; 86308; 87804; 87811; 87880; 93005; 96374; 99284; J1885

== ENCOUNTER 2023-06-10 15:42 | Outpatient (OUT) | payer BC, SELFPAY ==
--- OUTSIDE RECORDS SUMMARY | 2023-06-10 15:45 | XMS_ITS | CCD ---
Author Organization [facility] Care Team Providers Care Reimbursement Spec Name Role Phone Treasure Quezada Unavailable SURYA HODGES Primary Care Physician [phone] MD Surya Hodges Primary Care Provider KITA Quezada Attending Provider Surya Hodges Unavailable Kamaljit ROMERO Attending Unavailable RONDA KAUFMAN Attending Unavailab Brent Pan Referring Unavailable Kamaljit ROMERO Attending Unavailable Dee Miraz. Attending Unavailable COLEEN ., DR SEYMOUR Admitting Unavailable HODGES, DR SURYA Damon Primary Care Unavailable BRIDGETTE PATEL Consulting Unavailable COLEEN ., DR SEYMOUR Attending Unavailable COLEEN ., DR SEYMOUR Admitting Unavailable COLEEN ., DR SEYMOUR Consulting Unavailable HODGES, DR SURYA Damon Primary Care Unavailable COLEEN ., DR SEYMOUR Attending Unavailable CHELSEA PINTO Consulting Unavailable BO II, MATHEW Consulting Unavailable COLEEN ., DR SEYMOUR Admitting Unavailable COLEEN ., DR SEYMOUR Consulting Unavailable HODGES, DR SURYA Damon Primary Care Unavailable COLEEN ., DR SEYMOUR Attending Unavailable LUOleg .DEE Attending Unavailable LUOleg .DEE Admitting Unavailable LUOleg .DEE Consulting Unavailable TRACIE, DR SURAY Damon Primary Care Unavailable ROMERO ., DR NAQVI Attending Unavailable ROMERO ., DR NAQVI Admitting Unavailable ROMERO ., DR NAQVI Consulting Unavailable ZIEBER, DR DAVID Rivas Consulting Unavailable COLEEN ., DR SEYMOUR Admitting Unavailable COLEEN ., DR SEYMOUR Consulting Unavailable TRACIE, DR SURYA Damon Primary Care Unavailable COLEEN ., DR SEYMOUR Attending Unavailable HODGES, DR SURYA Damon Primary Care Unavailable ROMERO ., DR NAQVI Attending Unavailable ROMERO ., DR NAQVI Admitting Unavailable HODGES, DR SURYA Damon Primary Care Unavailable BRINA SHEIKH Attending Unavailable BRINA SHEIKH Admitting Unavailable COLEEN ., DR SEYMOUR Admitting Unavailable COLEEN ., DR SEYMOUR Consulting Unavailable HODGES, DR SURYA Damon Primary Care Unavailable COLEEN ., DR SEYMOUR Attending Unavailable COLEEN ., DR SEYMOUR Consulting Unavailable HODGES, DR SURYA Damon Primary Care Unavailable COLEEN ., DR SEYMOUR Attending Unavailable COLEEN ., DR SEYMOUR Admitting Unavailable Kayla Acosta Consulting Unavailable KORI, BRINA Admitting Unavailable BRINA SHEIKH Attending Unavailable TRACIE, DR SURYA Damon Primary Care Unavailable TRACIE, DR SURYA Damon Primary Care Unavailable LIMA, DR CROW Rivas Admitting Unavailable LIMA, DR CROW Rivas Consulting Unavailable LIMA, DR CROW Rivas Attending Unavailable MAGI BAUER Consulting Unavailable MICKEY GALVAN Consulting Unavailable RERE CARLISLE Consulting Unavailable MD Surya Hodges Primary Care Provider DO Marcio Steven Emergency Provider MD Baljinder Polanco Admit Provider MD Baljinder Polanco Attending Provider Treasure Quezada Attending Unavailable Treasure Quezada Admitting Unavailable Surya Hodges Primary Care Unavailable Baljinder Polanco Admitting Unavailable Surya Hodges Primary Care Unavailable Baljinder Polanco Attending Unavailable Jason Beasley Unavailable YESICA BECKER Attending Unavailable YESICA BECKER Attending Unavailable Surya Hodges MD Primary Care Provider Allergies Allergy Classification Reported Allergen(s) Allergy Type Date of Onset Reaction(s) Facility (20 sources) Azithromycin; Translations: [azithromycin] Drug Allergy 4 rash, Eruption of skin (disorder) [facility] (17 sources) whooping cough Propensity to adverse reactions 4 swelling injection site [facility] (15 sources) Bordetella pertussis filamentous hemagglutinin vaccine, inactivated / Bordetella pertussis fimbriae 2/3 vaccine, inactivated / Bordetella pertussis pertactin vaccine, inactivated / Bordetella pertussis toxoid vaccine, inactivated / diphtheria toxoid vaccine, inactivated / tetanus toxoid vaccine, inactivated; Translations: [diphtheria/pertu ssis, acel/tetanus adult] Drug Allergy 0 Unknown, Comment:amrit damon [facility] (18 sources) Clindamycin; Translations: [clindamycin] Drug Allergy 0 Rash [facility] (2 sources) acellular pertussis vaccine, inactivated / diphtheria toxoid vaccine, inactivated / tetanus toxoid vaccine, inactivated Drug Allergy [facility] (2 sources) Clindamycin Drug Allergy [facility] (3 sources) vaccine adjuvant system, AS01B liposomal; Translations: [vaccine adjuvant system, AS01B liposomal] Allergy to substance 3 Rash [facility] (1 source) Clindamycin Drug Allergy 3 [facility] (1 source) Tgqhtlj-Xyzblf-Nr ell Pertussis Propensity to adverse reactions 3 Swelling [facility] Work Phone: (1 source) diphtheria,pertus sis (acellular),te Allergy to substance 4 Comment:amrit damon [facility] Medications Current Medications Medication Drug Class(es) Dates Sig (Normalized) Sig (Original) [id number] actuat albuterol 0.09 mg/actuat metered dose [...] Orally bid for 7 days Mar, Active cephalexin 500 mg oral capsule (1 source) Cephalosporin Antibacterial Start: 05-04-2023 take 500 mg by mouth every eight hours Cephalexin Active 500 MG PO Every 8 hours 01 10May 04, 2023 12:00am Celexa (6 sources) Serotonin Reuptake Inhibitor Start: [...] Status: Ordered fluconazole 150 mg oral tablet (8 sources) Azole Antifungal Start: 05-04-2023 Fluconazole Active 150 MG PO Q3D May 04, 2023 12:00am Start: 02-23-2023 take 1 tablet by mouth every w modoc Diflucan 150 MG 1 tablet Orally weekly for 14 days Feb, Active Start: 03-16-2022 Diflucan 150 M G 1 tablet Orally x1 for 1 days Mar, Active Prozac (2 sources) Serotonin Reuptake Inhibitor Start: 01-13-2022 Prozac Oral, Daily, Refills(s) 0 Start Date: 01/13/22 Status: Ordered levothyroxine sodium 0.175 mg oral tablet (20 sources) l-Thyroxine Start: 12-07-2022 take 1 tablet by mouth before mealtime levothyroxine (Synthroid, Levoxyl) 137 MCG tablet Take 137 mcg by mouth in the morning. Take before meals. 0 12/07/2022 Active Start: 12-01-2022 take 137 ug by mouth once edin y Levothyroxine Active 137 MCG PO Daily November 30, 2022 11:00pm Start: 11-30-2022 End: 04-21-2023 take 1 tablet by mouth before mealtime levothyroxine (Synthroid) 175 MCG tablet Indications: Hypothyroidism, unspecified type (CMS/HCC) Take 1 tablet (175 mcg) by mouth in the morning. Take before meals. 30 tablet 11 02/10/2023 04/21/2023 Discontinued (Therapy completed) Start: 01-11-2022 Synthroid 150 mcg (0.15 mg) [...] hydrochloride 500 mg extended release oral tablet (5 sources) Biguanide Start: 12-01-19 End: 12-02-19 take 500 mg by mouth twice daily Metformin Active 500 MG PO Twice daily 180 90 December 01, 2022 12:05pm Start: 10-12-2022 take 1 tablet by tory [...] Start: 10-18-2022 take 1 tablet by tory once daily before breakfast Adipex-P 37.5 MG 1 tablet before breakfast Orally Once a day for 30 days Oct, Active Start: 09-17-2022 take 1 tablet by tory once daily before breakfast Adipex-P 37.5 MG 1 tablet before breakfast Orally Once a day for 30 days Sep, Active predniSONE 20 mg oral tablet (7 sources) Start: 05-04-2023 take 20 mg by mouth twice daily Prednisone Active 20 MG PO Twice daily May 04, 2023 12:00am Start: 11-05-2022 predniSONE 10 MG 4 tabs [...] hydrochloride 120 mg extended release oral capsule (7 sources) beta-Adrenergic Janie Start: 12-01-2022 End: 04-21-2023 take 1 capsule by mouth every twenty-four hours in the morning propranolol LA (Inderal LA) 120 MG 24 hr capsule Take 120 mg by mouth in the morning. 0 12/01/2022 04/21/2023 Discontinued (Therapy completed) Start: 12-01-2022 take 120 mg by mouth once edin y Propranolol Active 120 MG PO Daily November 30, 2022 11:00pm Tirzepatide-Weight Management (Zepbound) 2.5 MG/0.5ML solution auto-injector [...] (Therapy completed) take 1 tablet by tory every twelve hours Venlafaxine HCl 75 MG [...] [SUPRAVENTRICULAR TACHYCARDIA] Onset: 2 Chronic Cardiac dysrhythmias (10 sources) Tachycardia; Translations: [Tachycardia, unspecified] Onset: 4 [...] Translations: [Emotional lability] Episodic Nonspecific chest pain (4 sources) Chest pain, unspecified; Translations: [Chest pain] Episodic Nutritional deficiencies (7 sources) Iron deficiency; Translations: [Iron deficiency] Episodic Other aftercare (1 source) 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; Translations: [OTH DETENTION CURRENT DRUG THERAPY] Onset: 3 Episodic Other aftercare (3 sources) Long-term current use of drug therapy; Translations: [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] Episodic Other aftercare (3 [...] Test Name Value Interpretation Reference Range Facility Basophils Auto (Bld) [#/Vol] on 05-02-2023 Basophils (Bld) [#/Vol] 0.1 10 3/uL 0.0-0.1 [facility] Basophils/100 WBC Auto (Bld) on 05-02-2023 Basophils/100 WBC (Bld) 0.4 % 0.2-2.0 [facility] Eosinophils/100 WBC Auto (Bl d)on 05-02-2023 Eosinophils/100 WBC (Bld) 0.1 % 0.9-7.0 [facility] Erythrocyte distribution wid th Auto (RBC) [Ratio]on 05-02-2023 Erythrocyte distribution width (RBC) [Ratio] 13.1 % 11.0-15.0 [facility] Estimated glomerular filtrat ion rate (GFR) non- Americanon 05-02-2023 GFR/1.73 sq M.predicted among non-blacks MDRD (S/P/Bld) [Vol rate/Area] mL/min/{1.73_m2} >=60 [facility] Hematocrit Auto (Bld) [Volum e fraction]on 05-02-2023 Hematocrit (Bld) [Volume fraction] 41.6 % 36.0-48.0 [facility] Hemoglobin [Mass/volume] in Bloodon 05-02-2023 Hemoglobin (Bld) [Mass/Vol] 13.6 g/dL 12.0-16.0 [facility] Laboratory - Chemistry and C hemistry - challengeon 05-02-2023 Calcium [Mass/Vol] 8.7 mg/dL 8.5-10.1 [facility] Chloride [Moles/Vol] 101 mmol/L 98-107 [facility] CO2 [Moles/Vol] 24.8 mmol/L 21.0-32.0 [facility] Creatinine [Mass/Vol] 0.89 mg/dL 0.55-1.02 [facility] GFR/1.73 sq M.predicted MDRD (S/P/Bld) [Vol rate/Area] mL/min/{1.73_m2} >=60 [facility] Glucose [Mass/Vol] 112 mg/dL 74-106 [facility] Potassium [Moles/Vol] 4.0 mmol/L 3.5-5.1 [facility] Sodium [Moles/Vol] 137 mmol/L 136-145 [facility] Urea nitrogen [Mass/Vol] 5.0 mg/dL 7.0-18.0 [facility] Urea nitrogen/Creatinine [Mass ratio] 5.6 mg/mg [facility] Laboratory - Hematology and Cell countson 05-02-2023 Immature granulocytes/100 WBC (Bld) 0.3 % 0.0-0.5 [facility] Laboratory - Microbiology an d Antimicrobial susceptibilityon 05-02-2023 S. pyogenes Ag Ql (Unsp spec) Positive [facility] SARS-CoV-2 (COVID-19) RNA LEO+probe Ql (Unsp spec) Negative NEGATIVE [facility] Comment on above: This test has not be en FDA cleared or approved, but has beenauthorized by the FDA under an Emergency Use Authorization(EUA) for use by authorized laboratories certified underIA that meet the requirements to perform moderate or highcomplexity testing. This test has been authorized only forthe detection of proteins from SARS-CoV-2, not for any otherviruses or pathogens. The emergency use of this test isauthorized for the duration of the declaration thatcircumstances exist justifying the authorization ofemergency use of in vitro diagnostic tests for detectionand/or diagnosis of Covid-19 under section 564(b)(1) of theAct, U.S.C. 360bbb-3(b)(1), unless the declaration isterminated or authorization is revoked sooner. Leukocytes [#/volume] correc jocelynn for nucleated erythrocytes in Blood by Automated counon 05-02-2023 WBC corrected for nucl RBC Auto (Bld) [#/Vol] 12.4 10 3/uL 4.0-11.0 [facility] Lymphocytes Auto (Bld) [#/Vo l]on 05-02-2023 Lymphocytes (Bld) [#/Vol] 1.0 10 3/uL 1.2-3.8 [facility] Lymphocytes/100 WBC Auto (Bl d)on 05-02-2023 Lymphocytes/100 WBC (Bld) 7.9 % 20.5-60.0 [facility] MCH Auto (RBC) [Entitic mass ]on 05-02-2023 MCH (RBC) [Entitic mass] 27.9 pg 26.7-34.0 [facility] MCHC Auto (RBC) [Mass/Vol]on 05-02-2023 MCHC (RBC) [Mass/Vol] 32.7 g/dL 29.9-35.2 [facility] MCV Auto (RBC) [Entitic vol] on 05-02-2023 MCV (RBC) [Entitic vol] 85.2 fL 81.0-99.0 [facility] Monocytes Auto (Bld) [#/Vol] on 05-02-2023 Monocytes (Bld) [#/Vol] 0.8 10 3/uL 0.3-0.8 [facility] Monocytes/100 WBC Auto (Bld) on 05-02-2023 Monocytes/100 WBC (Bld) 6.3 % 1.7-12.0 [facility] Neutrophils Auto (Bld) [#/Vo l]on 05-02-2023 Neutrophils (Bld) [#/Vol] 10.5 10 3/uL 1.4-6.5 [facility] Neutrophils/100 WBC Auto (Bl d)on 05-02-2023 Neutrophils/100 WBC (Bld) 85.0 % 43.0-75.0 [facility] No Panel Informationon 05-02 Bedside Influenza Type A Antigen Negative [facility] Comment on above: Negative for Flu A p rotein antigen. Infection due to Flu Acannot be ruled out. Flu A antigen in the sample may bebelow the detection limit of the test. Bedside Influenza Type B Antigen Negative [facility] Comment on above: Negative for Flu B p rotein antigen. Infection due to Flu Bcannot be ruled out. Flu B antigen in the sample may bebelow the detection limit of the test. Eosinophils # (Auto) 0.0 10 3/uL 0.0-0.7 [facility] Immature Granulocyte # (Auto) 0.04 10 3/uL 0.00-0.03 [facility] Monoscreen Negative NEGATIVE [facility] Platelet mean volume Auto (B ld) [Entitic vol]on 05-02-2023 Platelet mean volume (Bld) [Entitic vol] 8.9 fL 9.5-13.5 [facility] Platelets Auto (Bld) [#/Vol] on 05-02-2023 Platelets (Bld) [#/Vol] 369 10 3/uL 150-450 [facility] RBC Auto (Bld) [#/Vol]on RBC (Bld) [#/Vol] 4.88 10 6/uL 4.20-5.40 [facility] Serum or plasma anion gap de terminationon 05-02-2023 Anion gap [Moles/Vol] 15.2 mmol/L [facility] A1C with Estimated Average G hussain 12-01-2022 Glucose [Mass/Vol] 120 mg/dL Normal [facility] Comment on above: Result Comment: PERF ORMED BY: [place] [address] PATHOLOGIST READING INSTRUCTOR ISAIAS DE LA CRUZ M.D. Performed By: #### L IPID, HS TROP, A1C WTH eA ####[facility] HbA1c (Bld) [Mass fraction] 5.8 % High 4.3-5.6 [facility] Comment on above: Result Comment: Incr eased risk for diabetes: 5.7 - 6.4 diabetes: >6.4 glycemic control for adults with diabetes: <7.0 Performed By: #### L IPID, HS TROP, A1C WTH eA ####[place] [id number] [address] Cholesterol [Mass/volume] in Serum or PlasmaOrdered By: Baljinder Polanco on 12-01-2022 Cholesterol [Mass/Vol] 214 mg/dL 140-200 [facility] Comment on above: Chol less than 200 m g/dl low riskChol 201-239 mg/dl borderline riskChol 240 mg/dl and greater high risk Cholesterol in LDL Calc [Mas s/Vol]Ordered By: Baljinder Polanco on 12-01-2022 Cholesterol in LDL [Mass/Vol] 132 mg/dL 0-100 [facility] Comment on above: LDL ATP III CLASSIFI CATIONLDL less than 100 mg/dL OptimalLDL 100-129 mg/dL Near or above optimalLDL 130-159 mg/dL Borderline highLDL 160-189 mg/dL HighLDL greater than 189 mg/dL Very high Cholesterol in VLDL Calc [Ma ss/Vol]Ordered By: Baljinder Polanco on 12-01-2022 Cholesterol in VLDL [Mass/Vol] 27 mg/dL [facility] ECH echo transthoracicon ECH echo transthoracic [facility] [address] [place] [address] Echocardiogram Signed Patient: Karlene Vazquez MR#: [id number] : 1990 Acct:[id number] Age/Sex: 32 / F ADM Date: 11/30/22 Loc: Room: [address] [place] [address] Type: ADM INOo Attending Dr: Baljinder Polanco MD Ordering Provider: Baljinder Polanco MD Date of Service: 12/01/22 ECH/ECH echo transthoracic: chest pain, abnormal troponins Copies to: MD Hammad Ambrose MD, [facility] Height: 69 in Weight: 197 [...] 12/01/22 1120 Signed By: Hammad Adam MD, [facility] 12/01/22 1643 Normal [facility] Glucose mean value [Mass/vol ume] in Blood Estimated from glycated hemoglobinOrdered By: Baljinder Polanco on 12-01-2022 Average glucose Estimated from glycated hemoglobin (Bld) [Mass/Vol] 120 mg/dL [facility] Hemoglobin A1c percentageOrd ered By: Baljinder Polanco on 12-01-2022 HbA1c (Bld) [Mass fraction] 5.8 % 4.3-5.6 [facility] Comment on above: Increased risk for d iabetes: 5.7 - 6.4diabetes: >6.4glycemic control for adults with diabetes: <7.0 Lipid Panelon 12-01-2022 Cholesterol [Mass/Vol] 214 mg/dL High 140-200 [facility] Comment on above: Result Comment: Chol less than 200 mg/dl low risk Chol 201-239 mg/dl borderline risk Chol 240 mg/dl and greater high risk Performed By: #### L IPID, HS TROP, A1C WTH eA ####[address] [address] [facility] Cholesterol in HDL [Mass/Vol] 54 mg/dL Normal 23-92 [facility] Comment on above: Result Comment: HDL CHOL ATP-III CLASSIFICATION Cardiovascular Risk HDL > or equal to 60 mg/dL LOW HDL < 40 mg/dL HIGH Performed By: #### L IPID, HS TROP, A1C WTH eA ####[facility] [place] [address] [facility] Cholesterol.total/Chol esterol in HDL [Mass ratio] 4.0 {ratio} Normal <5.0 [facility] Comment on above: Result Comment: PERF ORMED BY: [facility] [address] [place] [id number] PATHOLOGIST READING INSTRUCTOR ISAIAS DE LA CRUZ M.D. Performed By: #### L IPID, HS TROP, A1C WTH eA ####[facility] [place] [address] [facility] LDL Cholesterol,Calculated 132 mg/dL High 0-100 [facility] Comment on above: Result Comment: LDL ATP III CLASSIFICATION LDL less than 100 mg/dL Optimal LDL 100-129 mg/dL Near or above optimal LDL 130-159 mg/dL Borderline high LDL 160-189 mg/dL High LDL greater than 189 mg/dL Very high Performed By: #### L IPID, HS TROP, A1C WT eA ####[facility] [id number] [place] [id number] [facility] Triglyceride w/Reflex 139 mg/dL Normal 0-149 [facility] Comment on above: Result Comment: TRIG ATP III CLASSIFICATION TRIG less than 150 mg/dL Normal TRIG 150-199 mg/dL Borderline high TRIG 200-500 mg/dL High TRIG greater than 500 mg/dL Very high Standard traceable to the Center for Disease Conrtrol and Prevention ([facility]) test method. Performed By: #### L IPID, HS TROP, A1C WT eA ####[facility] [id number] [place] [id number] [facility] VLDL CHOLESTEROL 27 mg/dL Normal [facility] Comment on above: Performed By: #### L IPID, HS TROP, A1C [facility] eA ####[facility] [id number] [place] [id number] [facility] Serum or plasma high density lipoprotein (HDL) cholesterol measurementOrdered By: Baljinder Polanco on 12-01-2022 Cholesterol in HDL [Mass/Vol] 54 mg/dL 23-92 [facility] Comment on above: HDL CHOL ATP-III CLA SSIFICATION Cardiovascular RiskHDL > or equal to 60 mg/dL LOWHDL < 40 mg/dL HIGH Serum or plasma total choles terol/high density lipoprotein (HDL) cholesterol mass ratOrdered By: Baljinder Polanco on 12-01-2022 Cholesterol.total/Chol esterol in HDL [Mass ratio] 4.0 {ratio} <5.0 [facility] Triglyceride [Mass/volume] i n Serum or PlasmaOrdered By: Baljinder Polanco on 12-01-2022 Triglyceride [Mass/Vol] 139 mg/dL 0-149 [facility] Comment on above: TRIG ATP III CLASSIF ICATIONTRIG less than 150 mg/dL NormalTRIG 150-199 mg/dL Borderline highTRIG 200-500 mg/dL High TRIG greater than 500 mg/dL Very highStandard traceable to the Center for Disease Conrtrol and Prevention (CDC) test method. Troponin I High Sensitivityo n 12-01-2022 Troponin I High Sensitivity 27.1 pg/mL High 0.0-15.0 [facility] Comment on above: Result Comment: PERF ORMED BY: [facility] [address] [facility] [address] PATHOLOGIST READING INSTRUCTOR ISAIAS DE LA CRUZ M.D. Performed By: #### L IPID, HS TROP, A1C WTH eA ####[facility] [id number] [place], [place] [address] Troponin I.cardiac [Mass/vol ume] in Serum or Plasma by Detection limit <= 0.01 ng/Ordered By: Baljinder Polanco on 12-01-2022 Troponin I.cardiac DL <= 0.01 ng/mL [Mass/Vol] 27.1 pg/mL 0.0-15.0 [facility] Activated partial thrombopla stin time (aPTT) in platelet poor plasma by coagulation aOrdered By: Marcio Steven on 11-30-2022 aPTT Coag (PPP) [Time] 32.4 s 25.1-36.5 [facility] Comment on above: A hematocrit value g reater than 55% may lead to inaccurate results in coagulation testing. Patients having hematocrit values >55% require a special collection tube for coagulation studies. Please contact the laboratory at [phone] for redraw instructions. Alanine aminotransferase [En zymatic activity/volume] in Serum or PlasmaOrdered By: Marcio Steven on 11-30-2022 ALT [Catalytic activity/Vol] 16 U/L Normal 7-52 [facility] Comment on above: Performed By: #### U A #### [facility] [address] [place] [id number] [facility] Albumin [Mass/volume] in Ser um or Plasma by Bromocresol green (BCG) dye binding methoOrdered By: Marcio Steven on 11-30-2022 Albumin BCG dye [Mass/Vol] 4.4 g/dL 3.5-5.7 [facility] Alkaline phosphatase [Enzyma tic activity/volume] in Serum or PlasmaOrdered By: Marcio Steven on 11-30-2022 ALP [Catalytic activity/Vol] 73 U/L Normal 34-104 [facility] Comment on above: Performed By: #### U A #### [address] Aspartate aminotransferase [ Enzymatic activity/volume] in Serum or PlasmaOrdered By: Marcio Steven on 11-30-2022 AST [Catalytic activity/Vol] 11 U/L Low 13-39 [facility] Comment on above: Performed By: #### U A #### [address] Automated basophil %Ordered By: Marcio Steven on 11-30-2022 Basophils/100 WBC (Bld) 0.8 % Normal . [facility] Comment on above: Performed By: #### B RN NIGHT, CK, CBC, HS TROP #### [address] Automated basophil countOrde red By: Marcio Steven on 11-30-2022 Basophils (Bld) [#/Vol] 0.1 10*3/uL Normal 0.0-0.2 [facility] Comment on above: Result Comment: PERF ORMED BY: [place] [address] PATHOLOGIST READING INSTRUCTOR ISAIAS DE LA CRUZ M.D. Performed By: #### B RN NIGHT, CK, CBC, HS TROP #### [address] Automated blood monocyte cou ntOrdered By: Marcio Steven on 11-30-2022 Monocytes (Bld) [#/Vol] 0.6 10*3/uL Normal 0.0-0.8 [facility] Comment on above: Performed By: #### B RN NIGHT, CK, CBC, HS TROP #### [address] Automated eosinophil %Ordere d By: Marcio Steven on 11-30-2022 Eosinophils/100 WBC (Bld) 0.9 % Normal . [facility] Comment on above: Performed By: #### B RN NIGHT, CK, CBC, HS TROP #### [address] Automated eosinophil countOr dered By: Marcio Steven on 11-30-2022 Eosinophils (Bld) [#/Vol] 0.1 10*3/uL Normal 0.0-0.45 [facility] Comment on above: Performed By: #### B RN NIGHT, CK, CBC, HS TROP #### [address] Automated monocyte %Ordered By: Marcio Steven on 11-30-2022 Monocytes/100 WBC (Bld) 6.8 % Normal . [facility] Comment on above: Performed By: #### B RN NIGHT, CK, CBC, HS TROP #### [address] Automated neutrophil %Ordere d By: Marcio Steven on 11-30-2022 Neutrophils/100 WBC (Bld) 59.2 % Normal . [facility] Comment on above: Performed By: #### B RN NIGHT, CK, CBC, HS TROP #### [address] BNP ser/plasOrdered By: Jack Steven on 11-30-2022 Natriuretic peptide B (Bld) [Mass/Vol] 13.0 pg/mL Normal 5-100 [facility] Comment on above: Result Comment: PERF ORMED BY: [place] [address] PATHOLOGIST READING INSTRUCTOR ISAIAS DE LA CRUZ M.D. Performed By: #### B RN NIGHT, CK, CBC, HS TROP #### [address] Basic Metabolic Panelon 11-12 Creatinine Clr Calc Pharmacy 114.08 Normal [facility] Comment on above: Performed By: #### U A #### [address] Calcium [Mass/Vol] 9.3803732 mg/dL Normal 8.6-10 .3 mg/dL [employer] Other CO2 [Moles/Vol] 23.50092781 mmol/L Normal 21.0-3 1.0 mmol/L [facility] Other Creatinine [Mass/Vol] 0.25208945 mg/dL Normal 0. 60-1.20 mg/dL [employer] [facility] Other GFR/1.73 sq M.predicted MDRD (S/P/Bld) [Vol rate/Area] mL/min/{1.73_m2} Normal [facility] Other Comment on above: Performed By: #### U A #### [facility] [address] [place] [address] [place] Potassium [Moles/Vol] 4.25545598 mmol/L Normal 3 .5-5.1 mmol/L [facility] Other Basic Metabolic PanelOrdered By: Marcio Steven on 11-30-2022 Chloride [Moles/Vol] 104 mmol/L Normal 98-107 [facility] Comment on above: Performed By: #### U A #### [facility] [address] [place] [id number] [place] Glucose [Mass/Vol] 77 mg/dL Normal 70-100 [facility] Comment on above: ADA recommended refe rence rangeRandom Glucose Reference Range is dependent on time and content of last meal. Glucose of more than 200 mg/dL in a nonstressed, ambulatory subject supports the diagnosis of Diabetes Mellitus. Result Comment: [place] Glucose Reference Range is dependent on time and content of last meal. Glucose of more than 200 mg/dL in a nonstressed, ambulatory subject supports the diagnosis of Diabetes Mellitus. ADA recommended reference range Performed By: #### U A #### [facility] [address] [place] [address] [place] Sodium [Moles/Vol] 138 mmol/L Normal 136-145 [facility] Comment on above: Performed By: #### U A #### [facility] [address] [place] [address] [place] Urea nitrogen [Mass/Vol] 9 mg/dL Normal 7-25 [facility] Comment on above: Performed By: #### U A #### [facility] [address] [place] [address] Bilirubin Test strip Ql (U)O rdered By: Marcio Steven on 11-30-2022 Bilirubin Ql (U) Negative Negative [facility] Bilirubin.direct [Mass/volum e] in Serum or PlasmaOrdered By: Marcio Steven on 11-30-2022 Bilirubin.direct [Mass/Vol] 0.00 mg/dL 0.03-0.18 [facility] Comment on above: If the DBIL is less than 0.1, IBIL is not able to becalculated. Bilirubin.total [Mass/volume ] in Serum or PlasmaOrdered By: Marcio Steven on 11-30-2022 Bilirubin [Mass/Vol] 0.9 mg/dL Normal 0.3-1.0 [facility] Comment on above: Performed By: #### U A #### [address] BioFire Not Detectedon 11-30 Bio[employer] Not Detected Not detected Normal Not Detecte [facility] Comment on above: Result Comment: This is a duplicate RP2.1 COVID (PCR) result to be used for statistical tracking purpose only. PERFORMED BY: [place] [address] PATHOLOGIST READING INSTRUCTOR ISAIAS DE LA CRUZ M.D. Performed By: #### R ZULEMA PANEL UPP., BIOFIRECOVNOTDE #### [address] COVID-19 Detected/Not Detect edOrdered By: Marcio Steven on 11-30-2022 SARS-CoV-2 (COVID-19) RNA LEO+non-probe Ql (Nph) Not detected Not Detecte [facility] Comment on above: This is a duplicate RP2.1 COVID (PCR) result to be used for statistical tracking purpose only. Calcium [Mass/volume] in Ser um or PlasmaOrdered By: Marcio Steven on 11-30-2022 Calcium [Mass/Vol] 9.5 mg/dL Normal 8.6-10.3 [facility] Comment on above: Performed By: #### U A #### [address] Carbon dioxide, total [Moles /volume] in Serum or PlasmaOrdered By: Marcio Steven on 11-30-2022 CO2 [Moles/Vol] 23.9 mmol/L Normal 21.0-31.0 [facility] Comment on above: Performed By: #### U A #### [address] Color Auto (U)Ordered By: Baljeet Steven on 11-30-2022 Color (U) Yellow Yellow [facility] Complete Blood Count Auto Di ffon 11-30-2022 Mean Corpuscular HGB Conc 33.3 g/dL Normal 32.0-35.0 [facility] Comment on above: Performed By: #### B RN NIGHT, CK, CBC, HS TROP #### [address] Monocytes/100 WBC (Bld) 19.22 % Normal 0.00-20.00 [facility] Comment on above: Performed By: #### B RN NIGHT, CK, CBC, HS TROP #### [address] NRBC% 0.2 /100{WBC} Normal 0-0.5 [facility] Comment on above: Performed By: #### B RN NIGHT, CK, CBC, HS TROP #### [address] Basophils (Bld) [#/Vol] 0.094131738 10*3/uL Normal 0.0-0.2 10*3/uL [employer] Other Basophils/100 WBC (Bld) 0.800 % . % [employer] Other Eosinophils (Bld) [#/Vol] 0.203710396 10*3/uL Normal 0.0-0.45 10*3/uL [employer] Other Eosinophils/100 WBC (Bld) 0.900 % . % [employer] Other Erythrocyte distribution width (RBC) [Ratio] 14.300 % Normal 11.9-15.3 % [employer] Other Hematocrit (Bld) [Volume fraction] 41.000 % Normal 34.0-46.4 % [employer] Other Hemoglobin (Bld) [Mass/Vol] 13.535994 g/dL Normal 11.8-15.4 g/dL [employer] Other Lymphocytes (Bld) [#/Vol] 2.042307167 10*3/uL Normal 1.00-4.8 10*3/uL [employer] Other Lymphocytes/100 WBC (Bld) 32.300 % . % [employer] Other MCH (RBC) [Entitic mass] 27.0000 pg Normal 24.7-34.3 pg [employer] Other MCV (RBC) [Entitic vol] 81.0000 fL Normal 80-100 fL [employer] Other Monocytes (Bld) [#/Vol] 0.654627395 10*3/uL Normal 0.0-0.8 10*3/uL [employer] Other Monocytes/100 WBC (Bld) 6.800 % . % [employer] Other Neutrophils (Bld) [#/Vol] 4.270375295 10*3/uL Normal 1.8-7.7 10*3/uL [employer] Other Neutrophils/100 WBC (Bld) 59.200 % . % [employer] Other Platelet mean volume (Bld) [Entitic vol] 7.2000 fL Normal 6.3-10.7 fL [employer] Other WBC (Bld) [#/Vol] 8.437075271 10*3/uL Normal 3.8 -11.6 10*3/uL [employer] Other Complete Blood Count Auto Diff 8.2 10*3/uL Normal 3.8-11.6 10*3/uL [employer] Other Complete Blood Count Auto Diff 33.3 g/dL Normal 32.0-35.0 g/dL [employer] Other Complete Blood Count Auto Diff 0.2 /100{WBC} Normal 0-0.5 /100{WBC} [employer] Other Complete Blood Count Auto Di ffOrdered By: Marcio Steven on 11-30-2022 Platelets (Bld) [#/Vol] 368 10*3/uL Normal 150-450 [facility] Comment on above: Performed By: #### B RN NIGHT, CK, CBC, HS TROP #### [address] RBC (Bld) [#/Vol] 5.06 10*6/uL High 3.60-5.00 [facility] Comment on above: Performed By: #### B RN NIGHT, CK, CBC, HS TROP #### [facility] [address] [place] [address] [place] Creatine kinase [Enzymatic a ctivity/volume] in Serum or PlasmaOrdered By: Marcio Steven on 11-30-2022 CK [Catalytic activity/Vol] 18 U/L Low 30-223 [facility] Comment on above: Performed By: #### B RN NIGHT, CK, CBC, HS TROP #### [place] [address] [place] Creatinine [Mass/volume] in Serum or PlasmaOrdered By: Marcio Steven on 11-30-2022 Creatinine [Mass/Vol] 0.83 mg/dL Normal 0.60-1.20 [facility] Comment on above: Performed By: #### U A #### [place] [address] [place] D-Dimer High Sensitivityon 0 11-30-2022 D-Dimer High Sensitivity < 200 Normal 0-243 [facility] Comment on above: Result [...] coagulation studies. Please contact the laboratory at [phone] for redraw instructions. PERFORMED BY: [place] [address] PATHOLOGIST READING INSTRUCTOR ISAIAS DE LA CRUZ M.D. Performed By: #### U A #### [address] ECG 12 lead ECGon 11-30-2022 ECG 12 lead ECG [facility] [place] [address] [place] [address] Electrocardiograph Report Signed Patient: Karlene Vazquez MR#: [id number] : 1990 Acct:[id number] Age/Sex: 32 / F ADM Date: 11/30/22 Loc: ER Room: Type: [facility] ER Attending Dr: Ordering Provider: Marcio Steven [...] ECGs available Confirmed by Marcio Steven DO ([id number]) on 11/30/2022 3:20:08 PM Referred By: Electronically Signed By:Marcio Tenisha DO Transcribed By: MUS Signed By Marcio Steven DO 3 1520 Normal [facility] Erythrocyte distribution wid th [Ratio] by Automated countOrdered By: Marcio Steven on 11-30-2022 Erythrocyte distribution width (RBC) [Ratio] 14.3 % Normal 11.9-15.3 [facility] Comment on above: Performed By: #### B RN NIGHT, CK, CBC, HS TROP #### [facility] [address] Fibrin D-dimer [Presence] in Platelet poor plasma by Latex agglutinationOrdered By: Marcio Steven on 11-30-2022 Fibrin D-dimer LA Ql (PPP) < 200 ng/mL 0-243 [facility] Comment on above: The reference range for [...] coagulation studies. Please contact the laboratory at [phone] for redraw instructions. Free T4 (Free Thyroxine)on 0 11-30-2022 Free T4 [Mass/Vol] 1.43713723 ng/dL High 0.61- 1.12 ng/dL [employer] Other Glucose Glucometer (BldC) [M ass/Vol]Ordered By: Baljinder Polanco on 11-30-2022 Glucose [Mass/Vol] 100 mg/dL [facility] Comment on above: Random Glucose Refer ence Range is dependent on time and content of last meal. Glucose of more than 200 mg/dL in a nonstressed, ambulatory subject supports the diagnosis of Diabetes Mellitus. Glucose Poct Glucometerson 0 11-30-2022 Glucose [Mass/Vol] 100 mg/dL Normal [facility] Comment on above: Result Comment: [facility] Glucose Reference Range is dependent on time and content of last meal. Glucose of more than 200 mg/dL in a nonstressed, ambulatory subject supports the diagnosis of Diabetes Mellitus. PERFORMED BY: [place] [address] PATHOLOGIST READING INSTRUCTOR ISAIAS DE LA CRUZ M.D. Performed By: #### U A #### [address] Hematocrit [Volume Fraction] of Blood by Automated countOrdered By: Marcio Steven on 11-30-2022 Hematocrit (Bld) [Volume fraction] 41.0 % Normal 34.0-46.4 [facility] Comment on above: Performed By: #### B RN NIGHT, CK, CBC, HS TROP #### [address] Hemoglobin [Mass/volume] in BloodOrdered By: Marcio Steven on 11-30-2022 Hemoglobin (Bld) [Mass/Vol] 13.7 g/dL Normal 11.8-15.4 [facility] Comment on above: Performed By: #### B RN NIGHT, CK, CBC, HS TROP #### [address] Hepatic Panelon 11-30-2022 Albumin [Mass/Vol] 4.4 g/dL Normal 3.5-5.7 [facility] Comment on above: Performed By: #### U A #### [address] Bilirubin,Indirect 0.9 mg/dL Normal [facility] Comment on above: Performed By: #### U A #### [address] Bilirubin.indirect [Mass/Vol] 0.00 mg/dL Low 0.03-0.18 [facility] Comment on above: Result Comment: If t he DBIL is less than 0.1, IBIL is not able to be calculated. Performed By: #### U A #### [facility] [address] [place] [address] INR in Platelet poor plasma by Coagulation assayOrdered By: Marcio Steven on 11-30-2022 INR Coag (PPP) [Relative time] 1.1 {INR} [facility] Comment on above: INR Therapeutic Rang e [...] on 11-30-2022 Ketones (U) [Mass/Vol] Trace Negative [facility] Leukocytes [#/volume] correc jocelynn for nucleated erythrocytes in Blood by Automated counOrdered By: Marcio Steven on 11-30-2022 WBC corrected for nucl RBC Auto (Bld) [#/Vol] 8.2 10*3/uL 3.8-11.6 [facility] Leukocytes [#/volume] in Blo od by Automated countOrdered By: Marcio Steven on 11-30-2022 WBC (Bld) [#/Vol] 8.2 10*3/uL Normal 3.8-11.6 [facility] Comment on above: Performed By: #### B RN NIGHT, CK, CBC, HS TROP #### [facility] [address] [place] [address] [place] Lymphocytes [#/volume] in Bl ood by Automated countOrdered By: Marcio Steven on 11-30-2022 Lymphocytes (Bld) [#/Vol] 2.7 10*3/uL Normal 1.00-4.8 [facility] Comment on above: Performed By: #### B RN NIGHT, CK, CBC, HS TROP #### [facility] [address] [place] [address] [place] Lymphocytes/100 leukocytes i n Blood by Automated countOrdered By: Marcio Steven on 11-30-2022 Lymphocytes/100 WBC (Bld) 32.3 % Normal . [facility] Comment on above: Performed By: #### B RN NIGHT, CK, CBC, HS TROP #### [facility] [address] MCH [Entitic mass] by Automa jocelynn countOrdered By: Marcio Steven on 11-30-2022 MCH (RBC) [Entitic mass] 27.0 pg Normal 24.7-34.3 [facility] Comment on above: Performed By: #### B RN NIGHT, CK, CBC, HS TROP #### [address] MCHC Auto (RBC) [Mass/Vol]Or dered By: Marcio Steven on 11-30-2022 MCHC (RBC) [Mass/Vol] 33.3 g/dL 32.0-35.0 [facility] MCV [Entitic volume] by Auto mated countOrdered By: Marcio Steven on 11-30-2022 MCV (RBC) [Entitic vol] 81.0 fL Normal 80-100 [facility] Comment on above: Performed By: #### B RN NIGHT, CK, CBC, HS TROP #### [address] Magnesium [Mass/volume] in S abdifatah or PlasmaOrdered By: Marcio Steven on 11-30-2022 Magnesium [Mass/Vol] 1.9 mg/dL Normal 1.9-2.7 [facility] Comment on above: Performed By: #### U A #### [address] Monocyte distribution width [Entitic volume] in Blood by AutomatedOrdered By: Marcio Steven on 11-30-2022 Monocyte distribution width Auto (Bld) [Entitic vol] 19.22 % 0.00-20.00 [facility] Neutrophils [#/volume] in Bl ood by Automated countOrdered By: Marcio Steven on 11-30-2022 Neutrophils (Bld) [#/Vol] 4.9 10*3/uL Normal 1.8-7.7 [facility] Comment on above: Performed By: #### B RN NIGHT, CK, CBC, HS TROP #### [facility] [address] Nitrite Test strip Ql (U)Ord ered By: Marcio Steven on 11-30-2022 Nitrite Ql (U) Negative Negative [facility] No Panel InformationOrdered By: Marcio Steven on 11-30-2022 Estimated GFR (CKD-EPI) > 60.0 mL/Min [facility] Creatinine Clearance (Chem 114.08 [facility] Nucleated erythrocytes [Pres ence] in Blood by Automated countOrdered By: Marcio Steven on 11-30-2022 Nucleated RBC Auto Ql (Bld) 0.2 /100{WBC} 0-0.5 [facility] Partial Thromboplastin Timeo n 11-30-2022 aPTT Coag (Bld) [Time] 32.4 s Normal 25.1-36.5 [facility] Comment on above: Result Comment: A he matocrit value greater than 55% may lead to inaccurate results in coagulation testing. Patients having hematocrit values >55% require a special collection tube for coagulation studies. Please contact the laboratory at [phone] for redraw instructions. Performed By: #### U A #### [address] Platelet mean volume [Entiti c volume] in Blood by Automated countOrdered By: Marcio Steven on 11-30-2022 Platelet mean volume (Bld) [Entitic vol] 7.2 fL Normal 6.3-10.7 [facility] Comment on above: Performed By: #### B RN NIGHT, CK, CBC, HS TROP #### [facility] [address] Potassium [Moles/volume] in Serum or PlasmaOrdered By: Marcio Steven on 11-30-2022 Potassium [Moles/Vol] 4.1 mmol/L Normal 3.5-5.1 [facility] Comment on above: Performed By: #### U A #### [facility] [address] Protein Auto test strip (U) [Mass/Vol]Ordered By: Marcio Steven on 11-30-2022 Protein (U) [Mass/Vol] Negative Negative [facility] Protein [Mass/volume] in Ser um or PlasmaOrdered By: Marcio Steven on 11-30-2022 Protein [Mass/Vol] 7.6 g/dL Normal 6.4-8.9 [facility] Comment on above: Performed By: #### U A #### [facility] [address] [place] [id number] [facility] Prothrombin Time INRon 11-30 INR Coag (PPP) [Relative time] 1.1 {INR} Normal [facility] Comment on above: Result Comment: INR Therapeutic [...] 4.5 Performed By: #### U A #### [facility] [address] [place] [address] [facility] PT Coag (PPP) [Time] 12.5 s Normal 9.0-12.9 [facility] Comment on above: Result Comment: A he matocrit value greater than 55% may lead to inaccurate results in coagulation testing. Patients having hematocrit values >55% require a special collection tube for coagulation studies. Please contact the laboratory at [phone] for redraw instructions. Performed By: #### U A #### [facility] [address] [place] [address] [facility] Prothrombin time (PT)Ordered By: Marcio Steven on 11-30-2022 PT Coag (PPP) [Time] 12.5 s 9.0-12.9 [facility] Comment on above: A hematocrit value g reater than 55% may lead to inaccurate results in coagulation testing. Patients having hematocrit values >55% require a special collection tube for coagulation studies. Please contact the laboratory at [phone] for redraw instructions. Respiratory (Upper) Panel, P [...] A H3 Blank Space ---- PERFORMED BY: [place] [address] PATHOLOGIST READING INSTRUCTOR ISAIAS DE LA CRUZ M.D. [facility] Comment on above: Performed By: #### R ZULEMA PANEL UPP., BIOFIRECOVNOTDE #### [facility] [address] Respiratory pathogens DNA an d RNA panel - Nasopharynx by LEO with non-probe detectionOrdered By: Marcio Steven on 11-30-2022 Respiratory pathogens DNA and RNA panel LEO+non-probe (Nph) [facility] Serum globulin measurement b y calculation (mass/volume)Ordered By: Marcio Steven on 11-30-2022 Globulin (S) [Mass/Vol] 3.2 g/dL Normal [facility] Comment on above: Performed By: #### U A #### [facility] [address] [place] [address] Serum or plasma albumin/glob ulin mass ratioOrdered By: Marcio Steven on 11-30-2022 Albumin/Globulin [Mass ratio] 1.4 {ratio} Normal [facility] Comment on above: Performed By: #### U A #### [facility] [address] [place] [address] Serum or plasma anion gap de terminationOrdered By: Marcio Steven on 11-30-2022 Anion gap [Moles/Vol] 14.2 mmol/L Normal 6.0-15.0 [facility] Comment on above: Performed By: #### U A #### [address] Serum or plasma non-glucuron idated bilirubin measurement (mass/volume)Ordered By: Marcio Steven on 11-30-2022 Bilirubin.indirect [Mass/Vol] 0.9 mg/dL [facility] Specific gravity Auto test s trip (U) [Rel density]Ordered By: Marcio Steven on 11-30-2022 Specific gravity (U) [Rel density] 1.013 1.001-1.03 0 [facility] Thyroid Stimulating Hormoneo n 11-30-2022 TSH Qn 0.93123126544 m[IU]/L Low 0.45-5 .33 u[iU]/mL [employer] Other Thyrotropin [Units/volume] i n Serum or PlasmaOrdered By: Marcio Steven on 11-30-2022 TSH Qn 0.03 m[IU]/L Low 0.45-5.33 [facility] Comment on above: Result Comment: PERF ORMED BY: [place] [address] PATHOLOGIST READING INSTRUCTOR ISAIAS DE LA CRUZ M.D. Performed By: #### U A #### [facility] [address] [place] [address] Thyroxine (T4) free [Mass/vo lume] in Serum or PlasmaOrdered By: Marcio Steven on 11-30-2022 Free T4 [Mass/Vol] 1.56 ng/dL High 0.61-1.12 [facility] Comment on above: Performed By: #### U A #### [facility] [address] Triiodothyronine (T3) Freeon 11-30-2022 Triiodothyronine (T3) Free 3.89 pg/mL Normal 2.50-3.90 [facility] Comment on above: Result Comment: PERF ORMED BY: [place] [address] PATHOLOGIST READING INSTRUCTOR ISAIAS DE LA CRUZ M.D. Performed By: #### P TT, MG, T3F, DDIMER, T4F, BMP, PT, TSH3, HEPATIC ####[facility] [address] [place] [address] Triiodothyronine (T3) Free [ Mass/volume] in Serum or PlasmaOrdered By: Marcio Steven on 11-30-2022 Free T3 [Mass/Vol] 3.89 pg/mL 2.50-3.90 [facility] Troponin I High Sensitivityo n 11-30-2022 Troponin I High Sensitivity 38.7 pg/mL High 0.0-15.0 [facility] Comment on above: Result Comment: PERF ORMED BY: [place] [address] PATHOLOGIST READING INSTRUCTOR ISAIAS DE LA CRUZ M.D. Performed By: #### U A #### [facility] [address] [place], [place] [id number] [place] US liveron 11-30-2022 US liver [facility] [place] [address] [place] [address] Ultrasound Report Signed Patient: Karlene Vazquez MR#: [id number] : 1990 Acct:[id number] Age/Sex: 32 / F ADM Date: 11/30/22 Loc: Room: [address] [place] [address] Type: ADM IN Attending Dr: Baljinder Polanco [...] Crow Ramos M.D.11/30/2022 5:27 PM Dictation Location: [place] [address] Tech: Ophelia Najera Transcribed By: TORITO 11/30/221726 Dictated By: Crow Ramos II, MD 11/30/221725 Signed By: 11/30/22 172 Normal [facility] Urinalysison 11-30-2022 Appearance (U) Clear Normal Clear [facility] Comment on above: Order Comment: Name Collection Type:: Clean-Voided Midstream Performed By: #### U A #### [facility] [address] [place] [address] [place] Bilirubin,Urine Negative Normal Negative [facility] Comment on above: Order Comment: Name Collection Type:: Clean-Voided Midstream Performed By: #### U A #### [facility] [address] [place] [id number] [place] Color (U) Yellow Normal Yellow [facility] Comment on above: Order Comment: Name Collection Type:: Clean-Voided Midstream Performed By: #### U A #### [facility] [address] [place] [id number] [place] Glucose Ql (U) Normal Normal Normal [facility] Comment on above: Order Comment: Name Collection Type:: Clean-Voided Midstream Performed By: #### U A #### [facility] [address] [place] [address] Ketones Ql (U) Trace High Negative [facility] Comment on above: Order Comment: Name Collection Type:: Clean-Voided Midstream Performed By: #### U A #### [address] Leukocyte esterase Test strip Ql (U) Negative Normal Negative [facility] Comment on above: Order Comment: Name Collection Type:: Clean-Voided Midstream Performed By: #### U A #### [address] Nitrite,Urine Negative Normal Negative [facility] Comment on above: Order Comment: Name Collection Type:: Clean-Voided Midstream Performed By: #### U A #### [address] Occult Blood,Urine Negative Normal Negative [facility] Comment on above: Order Comment: Name Collection Type:: Clean-Voided Midstream Result Comment: PERF ORMED BY: [place] [address] PATHOLOGIST READING INSTRUCTOR ISAIAS DE LA CRUZ M.D. Performed By: #### U A #### [place] [address] [place] pH (U) [pH] Normal 5.0-9.0 [facility] Comment on above: Order Comment: Name Collection Type:: Clean-Voided Midstream Performed By: #### U A #### [facility] [address] [place] [address] [place] Protein,Urine Negative Normal Negative [facility] Comment on above: Order Comment: Name Collection Type:: Clean-Voided Midstream Performed By: #### U A #### [place] [address] [place] Specificy [place],Urine 1.013 Normal 1.001-1.03 0 [facility] Comment on above: Order Comment: Name Collection Type:: Clean-Voided Midstream Performed By: #### U A #### [address] [place] [address] [facility] Urobilinogen,Urine Normal Normal Normal [facility] Comment on above: Order Comment: Name Collection Type:: Clean-Voided Midstream Performed By: #### U A #### [place] [id number] [facility] Urine clarity by refractomet ry automatedOrdered By: Marcio Steven on 11-30-2022 Clarity Refractometry automated (U) Clear Clear [facility] Urine glucose measurement by automated test strip (mass/volume)Ordered By: Marcio Steven on 11-30-2022 Glucose Auto test strip (U) [Mass/Vol] Normal mg/dL Normal [facility] Urine hemoglobin detection b y automated test stripOrdered By: Marcio Steven on 11-30-2022 Hemoglobin Auto test strip Ql (U) Negative Negative [facility] Urine leukocyte esterase det ection by automated test stripOrdered By: Marcio Steven on 11-30-2022 Leukocyte esterase Auto test strip Ql (U) Negative Negative [facility] Urobilinogen Auto test strip (U) [Mass/Vol]Ordered By: Marcio Steven on 11-30-2022 Urobilinogen (U) [Mass/Vol] Normal mg/dL Normal [facility] XR chest 1V portableon 11-30 XR chest 1V portable [facility] [place] [address] [place], [place] [id number] XRay Report Signed Patient: Karlene Vazquez MR#: [id number] : 1990 Acct:[id number] Age/Sex: 32 / F ADM Date: 11/30/22 Loc: ER Room: Type: [facility] ER Attending Dr: Copies to: Marcio Steven [...] Jovan Martin M.D.11/30/2022 1:58 PM Dictation Location: [place] [address] Transcribed By: [facility] 11/30/22 1358 Dictated By: Jovan Martin DO 11/30/22 1351 Signed By: 11/30/22 1358 Normal [facility] pH Auto test strip (U)Ordere d By: Marcio Steven on 11-30-2022 pH (U) [pH] 5.0-9.0 [facility] CORTISOL FREE, SERUMon 06-17 Cortisol, Free Dialysis, LCMS 0.649 ug/dL Normal [facility] Comment on above: Result Comment: Thes e tests were developed and their performance characteristics determined by [employer]. They have not been cleared or approved by the Food and Drug Administration. Reference Range: 8 AM 0.10 - 1.20 4 PM 0.042 - 0.872 Performed By: #### R [id number] #### [facility] [address] [place] [address] Dr. Dimple Parsons CBC AUTO DIFFon 06-16-2022 BASO # 0.1 103/ul Normal 0.0-0.1 [facility] Comment on above: Performed By: #### R [id number] #### [facility] [address] [place] [address] Dr. Dimple Parsons Basophils/100 WBC (Bld) 0.6 % Normal 0.2-2.0 [facility] Comment on above: Performed By: #### R [id number] #### [facility] [address] [place] [address] Dr. Dimple Parsons EO # 0.4 103/ul Normal 0.0-0.7 [facility] Comment on above: Performed By: #### R [id number] #### [facility] [address] [place] [address] Dr. Dimple Parsons Eosinophils/100 WBC (Bld) 4.0 % Normal 0.9-7.0 [facility] Comment on above: Performed By: #### R [id number] #### [facility] [address] [place] [address] Dr. Dimple Parsons Erythrocyte distribution width (RBC) [Ratio] 13.8 % Normal 11.0-15.0 [facility] Comment on above: Performed By: #### R [id number] #### [facility] [address] [place] [address] Dr. Dimple Parsons Hematocrit (Bld) [Volume fraction] 39.8 % Normal 36.0-48.0 [facility] Comment on above: Performed By: #### R [id number] #### [facility] [address] [place] [address] Dr. Dimple Parsons Hemoglobin (Bld) [Mass/Vol] 12.9 g/dL Normal 12.0-16.0 [facility] Comment on above: Performed By: #### R [id number] #### [facility] [address] [place] [address] Dr. Dimple Parsons IG # 0.02 10e3/ul Normal 0.00-0.03 [facility] Comment on above: Performed By: #### R [id number] #### [facility] [address] [place] [address] Dr. Dimple Parsons IG % 0.2 % Normal 0.0-0.5 [facility] Comment on above: Performed By: #### R [id number] #### [facility] [address] [place] [address] Dr. Dimple Parsons LYMPH # 3.1 103/ul Normal 1.2-3.8 [facility] Comment on above: Performed By: #### R [id number] #### [facility] [address] [place] [address] Dr. Dimple Parsons Lymphocytes/100 WBC (Bld) 33.5 % Normal 20.5-60.0 [facility] Comment on above: Performed By: #### R [id number] #### [facility] [address] [place] [address] Dr. Dimple Parsons MANUAL DIFF REQ NO Normal [facility] Comment on above: Performed By: #### R [id number] #### [facility] [address] [place] [address] Dr. Dimple Parsons MCH (RBC) [Entitic mass] 26.1 pg Critically low 26.7-34.0 [facility] Comment on above: Performed By: #### R [id number] #### [facility] [address] [place] [address] Dr. Dimple Parsons MCHC (RBC) [Mass/Vol] 32.4 g/dL Normal 29.9-35.2 [facility] Comment on above: Performed By: #### R [id number] #### [facility] [address] [place] [address] Dr. Dimple Parsons MCV (RBC) [Entitic vol] 80.4 fL Critically low 81.0-99.0 [facility] Comment on above: Performed By: #### R [id number] #### [facility] [address] [place] [address] Dr. Dimple Parsons MONO # 0.5 103/ul Normal 0.3-0.8 [facility] Comment on above: Performed By: #### R [id number] #### [facility] [address] [place] [address] Dr. Dimple Parsons Monocytes/100 WBC (Bld) 5.2 % Normal 1.7-12.0 [facility] Comment on above: Performed By: #### R [id number] #### [facility] [address] [place] [address] Dr. Dimple Parsons NEUT # 5.2 103/ul Normal 1.4-6.5 [facility] Comment on above: Performed By: #### R [id number] #### [facility] [address] [place] [address] Dr. Dimple Parsons Neutrophils/100 WBC (Bld) 56.5 % Normal 43.0-75.0 [facility] Comment on above: Performed By: #### R [id number] #### [facility] [address] [place] [address] Dr. Dimple Parsons Platelet mean volume (Bld) [Entitic vol] 8.7 fL Critically low 9.5-13.5 [facility] Comment on above: Performed By: #### R [id number] #### [facility] [address] [place] [address] Dr. Dimple Parsons PLT 376 103/ul Normal 150-450 [facility] Comment on above: Performed By: #### R [id number] #### [facility] [address] [place] [address] Dr. Dimple Parsons RBC 4.95 106/ul Normal 4.20-5.40 [facility] Comment on above: Performed By: #### R [id number] #### [facility] [address] [place] [address] Dr. Dimple Parsons WBC 9.3 103/ul Normal 4.0-11.0 [facility] Comment on above: Performed By: #### R [id number] #### [facility] [address] [place] [address] Dr. Dimple Parsons TESTOSTERONE, FREE,DIRECT, T OTALon 06-10-2022 Free Testosterone(Direct) 1.6 pg/mL Normal 0.0-4.2 [facility] Comment on above: Result Comment: Perf ormed at: BN Performed By: #### C BC #### [facility] [address] [place] [address] Dr. Dimple Parsons Testosterone [Mass/Vol] 22 ng/dL Normal 8-60 [facility] Comment on above: Result Comment: Perf ormed at: CB Performed By: #### C BC #### [facility] [address] [place] [address] Dr. Dimple Parsons ESTROGENon 2022 Estrogens, Total 413 pg/mL Normal [facility] Comment on above: Result Comment: Prep ubertal < 40 Female Cycle: 1-10 Days 16 - 328 11-20 Days 34 - 501 21-30 Days 48 - 350 Post-Menopausal 40 - 244 Performed By: #### D SURINDER #### [facility] [address] [place] [address] Dr. Dimple Parsons SEROTONINon 2022 Serotonin, Serum 20 ng/mL Critically low 31-207 [facility] Comment on above: Performed By: #### S EROTON #### [facility] [address] [place] [address] Dr. Dimple Parsons REVERSE T3on 06-08-2022 Reverse T3, Serum 15.6 ng/dL Normal 9.2-24.1 [facility] Comment on above: Result Comment: This test was developed and its performance characteristics determined by [employer]. It has not been cleared or approved by the Food and Drug Administration. Performed By: #### R [id number] #### [facility] [address] [place] [address] Dr. Dimple Parsons VIT D 1 25 DIHYDROXYon 06-07 Calcitriol(1,25 di-OH Vit D) 12.2 pg/mL Critically low 24.8-81.5 [facility] Comment on above: Performed By: #### V [id number] #### [facility] [address] [place] [address] Dr. Dimple Parsons C-PEPTIDE, SERUMon C-Peptide, Serum 3.3 ng/mL Normal 1.1-4.4 [facility] Comment on above: Result Comment: C-Pe ptide reference interval is for fasting patients. Performed By: #### R [id number] #### [facility] [address] [place] [address] Dr. Dimple Parsons DHEA-SULFATEon 06-05-2022 DHEA-Sulfate 154.0 ug/dL Normal 84.8-378.0 [facility] Comment on above: Performed By: #### D HEASUL #### [facility] [address] [place] [address] Dr. Dimple Parsons ESTRADIOLon 06-05-2022 Estradiol 117.0 pg/mL Normal [facility] Comment on above: Result Comment: Adul t Female: Follicular phase 12.5 - 166.0 Ovulation phase 85.8 - 498.0 Luteal phase 43.8 - 211.0 Postmenopausal <6.0 - 54.7 1st trimester 215.0 - >4300.0 Kye ECLIA methodology Performed By: #### R [id number] #### [facility] [address] [place] [address] Dr. Dimple Parsons INSULINon 06-05-2022 Insulin 13.1 uIU/mL Normal 2.6-24.9 [facility] Comment on above: Performed By: #### C BC #### [facility] [address] [place] [address] Dr. Dimple Parsons PROGESTERONEon 06-05-2022 Progesterone 4.8 ng/mL Normal [facility] Comment on above: Result Comment: Foll icular phase 0.1 - 0.9 Luteal phase 1.8 - 23.9 Ovulation phase 0.1 - 12.0 First trimester 11.0 - 44.3 Second trimester 25.4 - 83.3 Third trimester 58.7 - 214.0 Postmenopausal 0.0 - 0.1 Performed By: #### Inder CADENA #### [facility] [address] [place] [address] Dr. Dimple Parsons SEX HORMONE-BINDING GLOBULIN on 06-05-2022 Sex Horm Binding Glob, Serum 40.7 nmol/L Normal 24.6-122.0 [facility] Comment on above: Performed By: #### Jocelyne BC #### [facility] [address] [place] [address] Dr. Dimple Parsons T3, TOTAL (TRIIODOTHYRONINE) on 06-05-2022 T3, TOTAL 89 ng/dL Normal 71-180 [facility] Comment on above: Performed By: #### Rob [id number] #### [facility] [address] [place] [address] Dr. Dimple Parsons THYROID PEROXIDASE ABon 05-13 Thyroid Peroxidase (TPO) Ab 12 IU/mL Normal 0-34 [facility] Comment on above: Performed By: ###Rick CADENA #### [facility] [address] [place] [address] Dr. Dimple Parsons FERRITINon 06-04-2022 Ferritin [Mass/Vol] 193.0 ng/mL Critically high 6.2-137.0 [facility] Comment on above: Performed By: ###Rick CADENA #### [facility] [address] [place] [address] Dr. Dimple Parsons FREE T3on 06-04-2022 FREE T3 2.24 pg/mlL Normal 2.18-3.98 [facility] Comment on above: Performed By: #### R [id number] #### [facility] [address] [place] [address] Dr. Dimple Parsons FREE T4on 06-04-2022 Free T4 [Mass/Vol] 1.14 ng/dL Normal 0.76-1.46 [facility] Comment on above: Performed By: #### Inder CADENA #### [facility] [address] [place] [address] Dr. Dimple Parsons GLUCOSE BLOODon 06-04-2022 Glucose [Mass/Vol] 92 mg/dL Normal 74-106 [facility] Comment on above: Performed By: #### R [id number] #### [facility] [address] [place] [address] Dr. Dimple Parsons GLYCOHEMOGLOBIN A1Con 2022 ADA RECOMMENDATION SEE BELOW Normal [facility] Comment on above: Result Comment: ADA RECOMMENDED LIMIT 4.0 - 6.0 ADA THERAPEUTIC TARGET < 7.0 ACTION SUGGESTED > 7.0 Performed By: #### A 1C #### [facility] [address] [place] [address] Dr. Dimple Parsons Glucose [Mass/Vol] 100 mg/dL Normal [facility] Comment on above: Performed By: #### A 1C #### [facility] [address] [place] [address] Dr. Dimple Parsons HbA1c (Bld) [Mass fraction] 5.1 % Normal 4.5-6.2 [facility] Comment on above: Performed By: #### A 1C #### [facility] [address] [place] [address] Dr. Dimple Parsons T4on 06-04-2022 T4 [Mass/Vol] 8.60 ug/dL Normal 4.80-13.90 [facility] Comment on above: Performed By: #### R [id number] #### [facility] [address] [place] [address] Dr. Dimple Parsons TSHon 06-04-2022 TSH 0.442 uIU/mL Normal 0.358-3.[address] [facility] Comment on above: Performed By: #### R [id number] #### [facility] [address] [place] [address] [address] Dimple Parsons US PELVIS AND TRANSVAGon [...] by: KAYLA ACOSTA Date: 2022-05-25 13:[address] [facility] RAD - MISCon 05-24-2022 RAD - MIS [id number]:12 7 Normal [facility] Ambulatory Visit Summaryon 0 05-21-2022 Ambulatory Visit Summary KARLENE VAZQUEZ :1990 Visit Date:05/21/2022 Ambulatory Visit Instructions Your Diagnosis Ureteral stone Kidney stone Stress incontinence Tests Performed Urnls Dip Stick Auto w/o Microscopy POC 44526 Your Care Team Attending Physician - LUCY STILES, Kamaljit Rivas Primary Care Physician - TRACIE STILES, SURYA This Is Your Medications List Contact prescribing [...] STILES, Kamaljit Rivas Where: [facility] Patient Educationon 05-22-19 Patient Education Urology Kidney [...] these instructions at home: Medicines ? Take kggy-[id number]-wcxqmtu and prescription medicines only as told by [...] 08/16/2008 Document Revised: 07/17/2019 Document Reviewed: 07/17/2019 [employer] Patient Education ? 2019 [employer]. [facility] Urology Office/Clinic Noteon 05-21-2022 Urology Office/Clinic Note Chief Complaint Pt here for ER follow up 05-08-22 HPI Staff F/U to [place] ER visit 05/08/22 due to Kidney Stone. [...] stone (N20.1: Calculus of ureter) Presented to [facility] ER 05/08/22 with sudden onset right [...] When Contact Information LUCY STILES, Kamaljit Rivas, [place] [id number]- Additional Instructions: 3 months to review met w/up Patient Education Kidney Stones, [id number] IMarce, personally scribed for Dr. Romero on 05/21/2022 10:47:06. . Documentation recorded by the scribe, Marce Mccarthy, accurately reflects the services(s) I performed and [...] is negative (more content not included)... Normal [facility] Comment on above: Result Comment: Elec [...] by: DAVID ALDANA Date: 2022-05-21 06:[address] [facility] ED Note-Physicianon 05-17-19 ED Note-Physician [id number]:1 27 Normal [facility] RAD - CT Reporton 05-16-2022 RAD - CT Report [id number]#[id number]:12 7 Normal [facility] RAD - Ultrasound Reporton RAD - Ultrasound Report [id number]:1 27 Normal [facility] CBC AUTO DIFFon 05-08-2022 BASO # 0.0 103/ul Normal 0.0-0.1 [facility] Comment on above: Performed By: #### C BC #### [facility] [address] [place] [address] [address] Dimple Parsons Basophils/100 WBC (Bld) 0.3 % Normal 0.2-2.0 [facility] Comment on above: Performed By: #### C BC #### [facility] [address] [place] [address] [address] Dimple Parsons EO # 0.2 103/ul Normal 0.0-0.7 [facility] Comment on above: Performed By: #### C BC #### [facility] [address] [place] [address] [address] Dimple Parsons Eosinophils/100 WBC (Bld) 1.3 % Normal 0.9-7.0 [facility] Comment on above: Performed By: #### C BC #### [facility] [address] [place] [address] [address] Dimple Parsons Erythrocyte distribution width (RBC) [Ratio] 13.9 % Normal 11.0-15.0 [facility] Comment on above: Performed By: #### C BC #### [facility] [address] [place] [address] [address] Dimple Parsons Hematocrit (Bld) [Volume fraction] 38.8 % Normal 36.0-48.0 [facility] Comment on above: Performed By: #### C BC #### [facility] [address] [place] [address] [address] Dimple Parsons Hemoglobin (Bld) [Mass/Vol] 12.8 g/dL Normal 12.0-16.0 [facility] Comment on above: Performed By: #### C BC #### [facility] [address] [place] [address] [address] Dimple Parsons IG # 0.15 10e3/ul Critically high 0.00-0.03 [facility] Comment on above: Performed By: #### C BC #### [facility] [address] [place] [address] [address] Dimple Parsons IG % 1.3 % Critically high 0.0-0.5 [facility] Comment on above: Performed By: #### C BC #### [facility] [address] [place] [address] [address] Dimple Parsons LYMPH # 3.4 103/ul Normal 1.2-3.8 [facility] Comment on above: Performed By: #### C BC #### [facility] [address] [place] [address] Dr. Dimlpe Parsons Lymphocytes/100 WBC (Bld) 28.9 % Normal 20.5-60.0 [facility] Comment on above: Performed By: #### C BC #### [facility] [address] [place] [address] Dr. Dimple Parsons MANUAL DIFF REQ NO Normal [facility] Comment on above: Performed By: #### C BC #### [facility] [address] [place] [address] Dr. Dimple Parsons MCH (RBC) [Entitic mass] 25.9 pg Critically low 26.7-34.0 [facility] Comment on above: Performed By: #### C BC #### [facility] [address] [place] [address] Dr. Dimple Parsons MCHC (RBC) [Mass/Vol] 33.0 g/dL Normal 29.9-35.2 [facility] Comment on above: Performed By: #### C BC #### [facility] [address] [place] [address] Dr. Dimple Parsons MCV (RBC) [Entitic vol] 78.5 fL Critically low 81.0-99.0 [facility] Comment on above: Performed By: #### C BC #### [facility] [address] [place] [address] Dr. Dimple Parsons MONO # 0.7 103/ul Normal 0.3-0.8 [facility] Comment on above: Performed By: #### C BC #### [facility] [address] [place] [address] Dr. Dimple Parsons Monocytes/100 WBC (Bld) 6.2 % Normal 1.7-12.0 [facility] Comment on above: Performed By: #### C BC #### [facility] [address] [place] [address] [address] Dimple Parsons NEUT # 7.3 103/ul Critically high 1.4-6.5 [facility] Comment on above: Performed By: #### C BC #### [facility] [address] [place] [id number] Dimple Parsons Neutrophils/100 WBC (Bld) 62.0 % Normal 43.0-75.0 [facility] Comment on above: Performed By: #### C BC #### [facility] [address] [place] [address] [address] Dimple Parsons Platelet mean volume (Bld) [Entitic vol] 9.1 fL Critically low 9.5-13.5 [facility] Comment on above: Performed By: #### C BC #### [facility] [address] [place] [address] Dr. Dimple Parsons PLT 426 103/ul Normal 150-450 [facility] Comment on above: Performed By: #### C BC #### [facility] [address] [place] [address] [address] Dimple Parsons RBC 4.94 106/ul Normal 4.20-5.40 [facility] Comment on above: Performed By: #### C BC #### [facility] [address] [place] [address] Dr. Dimple Parsons WBC 11.9 103/ul Critically high 4.0-11.0 [facility] Comment on above: Performed By: #### C BC #### [facility] [address] [place] [address] ABD/PELVIS WO CONon [...] outpatient ultrasound. Note: Exam was submitted to [facility] operations Incidental Findings call que, to call the above findings to the patient's primary care provider nonemergently. Electronically authenticated by: RERE CARLISLE Date: 2022-05-08 05:24 Normal [facility] PROF 14(COMP METB)on 023 Albumin [Mass/Vol] 4.0 g/dL Normal 3.4-5.0 [facility] Comment on above: Performed By: #### R [id number] #### [facility] [address] [place] [address] Dr. Dimple Parsons Albumin/Globulin [Mass ratio] 1.1 {ratio} Normal [facility] Comment on above: Performed By: #### R [id number] #### [facility] [address] [place] [address] Dr. Dimple Parsons ALP [Catalytic activity/Vol] 76 U/L Normal 46-116 [facility] Comment on above: Performed By: #### R [id number] #### [facility] [address] [place] [address] Dr. Dimple Parsons ALT [Catalytic activity/Vol] 20 U/L Normal 14-59 [facility] Comment on above: Performed By: #### R [id number] #### [facility] [address] [place] [address] Dr. Dimple Parsons Anion gap [Moles/Vol] 14.9 mmol/L Normal [facility] Comment on above: Performed By: #### R [id number] #### [facility] [address] [place] [address] Dr. Dimple Parsons AST [Catalytic activity/Vol] 19 U/L Normal 15-37 [facility] Comment on above: Performed By: #### R [id number] #### [facility] [address] [place] [address] Dr. Dimple Parsons Bilirubin [Mass/Vol] 0.6 mg/dL Normal 0.2-1.0 [facility] Comment on above: Performed By: #### R [id number] #### [facility] [address] [place] [address] Dr. Dimple Parsons Calcium [Mass/Vol] 9.0 mg/dL Normal 8.5-10.1 [facility] Comment on above: Performed By: #### R [id number] #### [facility] [address] [place] [address] Dr. Dimple Parsons Chloride [Moles/Vol] 103 mmol/L Normal 98-107 [facility] Comment on above: Performed By: #### R [id number] #### [facility] [address] [place] [address] [address] Dimple Parsons CO2 [Moles/Vol] 25.5 mmol/L Normal 21.0-32.0 [facility] Comment on above: Performed By: #### R [id number] #### [facility] [address] [place] [address] [address] Dimple Parsons Creatinine [Mass/Vol] 0.75 mg/dL Normal 0.55-1.02 [facility] Comment on above: Performed By: #### R [id number] #### [facility] [address] [place] [address] Dr. Dimple Parsons EGFR-AF GHANAIAN >60 Normal >=60 [facility] Comment on above: Performed By: #### R [id number] #### [facility] [address] [place] [address] [address] Dimple Parsons EGFR-NON AF GHANAIAN >60 Normal >=60 [facility] Comment on above: Performed By: #### R [id number] #### [facility] [address] [address] [address] Dimple Parsons Globulin (S) [Mass/Vol] 3.8 g/dL Normal [facility] Comment on above: Performed By: #### R [id number] #### [facility] [address] [address] [address] Dimple Parsons Glucose [Mass/Vol] 107 mg/dL Critically high 74-106 [facility] Comment on above: Performed By: #### R [id number] #### [facility] [address] [address] [address] Dimple Parsons Potassium [Moles/Vol] 3.4 mmol/L Critically low 3.5-5.1 [facility] Comment on above: Performed By: #### R [id number] #### [facility] [address] [place] [address] Dr. Dimple Parsons Protein [Mass/Vol] 7.8 g/dL Normal 6.4-8.2 [facility] Comment on above: Performed By: #### R [id number] #### [facility] [address] [place] [address] [address] Dimple Parsons Sodium [Moles/Vol] 140 mmol/L Normal 136-145 [facility] Comment on above: Performed By: #### R [id number] #### [facility] [address] [address] [address] Dimple Parsons Urea nitrogen [Mass/Vol] 7.0 mg/dL Normal 7.0-18.0 [facility] Comment on above: Performed By: #### R [id number] #### [facility] [address] [address] [address] Dimple Parsons Urea nitrogen/Creatinine [Mass ratio] 9.3 mg/mg Normal [facility] Comment on above: Performed By: #### R [email or web address] #### [facility] [address] [address] [address] Dimple Parsons US PELVIS TRANSVAGon 023 [...] by: MICKEY GALVAN Date: 2022-05-08 08:[address] [facility] XR ankle LT min 3V*on 2021 XR ankle LT min 3V* [facility] [place] [address] [place], [place] [id number] XRay Report Signed Patient: Karlene Vazquez MR#: [id number] : 1990 Acct:[id number] Age/Sex: 31 / F ADM Date: 02/21/22 Loc: XDUCLY Room: Type: [facility] HEALTH Attending Dr: Treasure EAST Copies to: KITA [...] Inman Jr., D.OBishnu02/21/2022 12:42 PM Dictation Location: [place] [address] Transcribed By: [facility] 02/21/22 1242 Dictated By: Hardik Inman Jr DO 02/21/22 1241 Signed By: 02/21/22 1242 [facility] Physician Referralon 022 Physician Referral [id number]:12 7 [facility] Operative Reporton Operative Report [id number]#1.00CD:1 27 [facility] Pre-Certification Formon Pre-Certification Form [id number]#1.00CD:12 7 [facility] Lab Reportson 01-17-2022 Lab Reports [id number]#1.00CD:12 7 [facility] Reportson 01-16-2022 Lab Reports [id number]#1.00CD:12 7 [facility] CBC AUTO DIFFon 01-13-2022 BASO # 0.1 103/ul Normal 0.0-0.1 [facility] Comment on above: Performed By: #### C BC #### [facility] [address] [place] [address] Dr. Dimple Parsons Basophils/100 WBC (Bld) 0.5 % Normal 0.2-2.0 [facility] Comment on above: Performed By: #### C BC #### [facility] [address] [place] [address] Dr. Dimple Parsons EO # 0.2 103/ul Normal 0.0-0.7 [facility] Comment on above: Performed By: #### C BC #### [facility] [address] [place] [address] Dr. Dimple Parsons Eosinophils/100 WBC (Bld) 2.3 % Normal 0.9-7.0 [facility] Comment on above: Performed By: #### C BC #### [facility] [address] [place] [address] Dr. Dimple Parsons Erythrocyte distribution width (RBC) [Ratio] 13.2 % Normal 11.0-15.0 [facility] Comment on above: Performed By: #### C BC #### [facility] [address] [place] [address] Dr. Dimple Parsons Hematocrit (Bld) [Volume fraction] 40.5 % Normal 36.0-48.0 [facility] Comment on above: Performed By: #### C BC #### [facility] [address] [place] [address] Dr. Dimple Parsons Hemoglobin (Bld) [Mass/Vol] 13.0 g/dL Normal 12.0-16.0 [facility] Comment on above: Performed By: #### C BC #### [facility] [address] [place] [address] Dr. Dimple Parsons IG # 0.01 10e3/ul Normal 0.00-0.03 [facility] Comment on above: Performed By: #### C BC #### [facility] [address] [place] [address] Dr. Dimple Parsons IG % 0.1 % Normal 0.0-0.5 [facility] Comment on above: Performed By: #### C BC #### [facility] [address] [place] [address] Dr. Dimple Parsons LYMPH # 2.6 103/ul Normal 1.2-3.8 [facility] Comment on above: Performed By: #### C BC #### [facility] [address] [place] [address] Dr. Dimple Parsons Lymphocytes/100 WBC (Bld) 27.4 % Normal 20.5-60.0 [facility] Comment on above: Performed By: #### C BC #### [facility] [address] [place] [address] Dr. Dimple Parsons MANUAL DIFF REQ NO Normal [facility] Comment on above: Performed By: #### C BC #### [facility] [address] [place] [address] Dr. Dimple Parsons MCH (RBC) [Entitic mass] 26.4 pg Critically low 26.7-34.0 [facility] Comment on above: Performed By: #### C BC #### [facility] [address] [place] [address] Dr. Dimple Parsons MCHC (RBC) [Mass/Vol] 32.1 g/dL Normal 29.9-35.2 [facility] Comment on above: Performed By: #### C BC #### [facility] [address] [place] [address] Dr. Dimple Parsons MCV (RBC) [Entitic vol] 82.2 fL Normal 81.0-99.0 [facility] Comment on above: Performed By: #### C BC #### [facility] [address] [place] [address] Dr. Dimple Parsons MONO # 0.6 103/ul Normal 0.3-0.8 [facility] Comment on above: Performed By: #### C BC #### [facility] [address] [place] [address] Dr. Dimple Parsons Monocytes/100 WBC (Bld) 6.2 % Normal 1.7-12.0 [facility] Comment on above: Performed By: #### C BC #### [facility] [address] [place] [address] Dr. Dimple Parsons NEUT # 6.1 103/ul Normal 1.4-6.5 [facility] Comment on above: Performed By: #### C BC #### [facility] [address] [place] [address] Dr. Dimple Parsons Neutrophils/100 WBC (Bld) 63.5 % Normal 43.0-75.0 [facility] Comment on above: Performed By: #### C BC #### [facility] [address] [place] [address] Dr. Dimple Parsons Platelet mean volume (Bld) [Entitic vol] 9.0 fL Critically low 9.5-13.5 [facility] Comment on above: Performed By: #### C BC #### [facility] [address] [place] [address] Dr. Dimple Parsons PLT 346 103/ul Normal 150-450 [facility] Comment on above: Performed By: #### C BC #### [facility] [address] [place] [address] Dr. Dimple Parsons RBC 4.93 106/ul Normal 4.20-5.40 [facility] Comment on above: Performed By: #### C BC #### [facility] [address] [place] [address] Dr. Dimple Parsons WBC 9.5 103/ul Normal 4.0-11.0 [facility] Comment on above: Performed By: #### C BC #### [facility] [address] [place] [address] Dr. Dimple Parsons FREE T4on 01-13-2022 Free T4 [Mass/Vol] 1.39 ng/dL Normal 0.76-1.46 [facility] Comment on above: Performed By: #### C BC #### [facility] [address] [place] [address] Dr. Dimple Parsons PROF CHEM 8 (BAS METB)on Anion gap [Moles/Vol] 10.4 mmol/L Normal [facility] Comment on above: Performed By: #### Inder CADENA #### [facility] [address] [place] [address] Dr. Dimple Parsons Calcium [Mass/Vol] 9.0 mg/dL Normal 8.5-10.1 [facility] Comment on above: Performed By: #### Inder CADENA #### [facility] [address] [place] [address] [address] Dimple Parsons Chloride [Moles/Vol] 101 mmol/L Normal 98-107 [facility] Comment on above: Performed By: #### Inder CADENA #### [facility] [address] [place] [address] Dr. Dimple Parsons CO2 [Moles/Vol] 29.3 mmol/L Normal 21.0-32.0 [facility] Comment on above: Performed By: ###Rick CADENA #### [facility] [address] [place] [address] Dr. Dimple Parsons Creatinine [Mass/Vol] 0.79 mg/dL Normal 0.55-1.02 [facility] Comment on above: Performed By: ###Rick CADENA #### [facility] [address] [place] [address] Dr. Dimple Parsons EGFR-AF GHANAIAN >60 Normal >=60 [facility] Comment on above: Performed By: #### Inder CADENA #### [facility] [address] [place] [address] Dr. Dimple Parsons EGFR-NON AF GHANAIAN >60 Normal >=60 [facility] Comment on above: Performed By: #### Inder CADENA #### [facility] [address] [place] [address] Dr. Dimple Parsons Glucose [Mass/Vol] 92 mg/dL Normal 74-106 [facility] Comment on above: Performed By: #### Inder CADENA #### [facility] [address] [place] [address] Dr. Dimple Parsons Potassium [Moles/Vol] 3.7 mmol/L Normal 3.5-5.1 [facility] Comment on above: Performed By: #### Inder CADENA #### [facility] [address] [place] [address] Dr. Dimple Parsons Sodium [Moles/Vol] 137 mmol/L Normal 136-145 [facility] Comment on above: Performed By: #### Inder CADENA #### [facility] [address] [place] [address] Dr. Dimple Parsons Urea nitrogen [Mass/Vol] 11.0 mg/dL Normal 7.0-18.0 [facility] Comment on above: Performed By: #### Inder CADENA #### [facility] [address] [place] [address] Dr. Dimple Parsons Urea nitrogen/Creatinine [Mass ratio] 13.9 mg/mg Normal [facility] Comment on above: Performed By: #### Inder CADENA #### [facility] [address] [place] [address] Dr. Dimple Parsons PROTIMEon 01-13-2022 INR Coag (PPP) [Relative time] 1.04 {INR} Normal [facility] Comment on above: Performed By: #### P TT, PT #### [facility] [address] [place] [address] Dr. Dimple Parsons INR GUIDELINES SEE BELOW Normal [facility] Comment on above: Result Comment: VISHAL RED INR: 2.0 - 3.0 CONDITIONS NOT LISTED BELOW 2.5 - 3.5 FOR PROSTHETIC HEART VALVE REPLACEMENT 2.5 - 3.5 RECURRENT THROMBOSIS Performed By: #### P TT, PT #### [facility] [address] [place] [address] Dr. Dimple Parsons PT Coag (PPP) [Time] 11.2 s Normal 9.0-11.6 [facility] Comment on above: Performed By: #### P TT, PT #### [facility] [address] [place] [address] Dr. Dimple Parsons PTTon 01-13-2022 aPTT Coag (Bld) [Time] 35.1 s Normal 22.3-36.2 e [facility] Comment on above: Performed By: #### P TT, PT #### [facility] [address] [place] [address] [address] Dimple Parsons Patient Educationon 01-14-20 22 Patient Education Obstetrics and Gynec ology Kegel [...] 02/14/2013 Document Revised: 10/18/2018 Document Reviewed: 10/18/2018 Elsevier Patient Education ? 2020 [employer] Normal [facility] TSHon 01-13-2022 TSH 1.528 uIU/mL Normal 0.358-3.[address] [facility] Comment on above: Performed By: #### T SH #### [facility] [address] [place] [address] [address] Dimple Parsons PAP ACOG PANEL 2: 30 to 65on 12-26-[address] [facility] Comment on above: Result Comment: Perf ormed at: WB Performed By: #### C BC #### [facility] [address] [place] [address] Dr. Dimple Parsons Age Gdln ACOG Testing 30-65 [facility] Comment on above: Performed By: #### C BC #### [facility] [address] [place] [address] Dr. Dimple Parsons DIAGNOSIS: Comment [facility] Comment on above: Result Comment: NEGA TIVE FOR INTRAEPITHELIAL LESION OR MALIGNANCY. Performed at: WB Performed By: #### C BC #### [facility] [address] [place] [address] Dr. Dimple Parsons HPV Aptima Negative Normal Negative [facility] Comment on above: Result Comment: This nucleic acid amplification test detects fourteen high-risk HPV types (16,18,31,33,35,39,45,51,52,56,58,59,66,68) without differentiation. Performed at: =G Performed By: #### C BC #### [facility] [address] [place] [address] Dr. Dimple Parsons Methodology: Comment [facility] Comment on above: Result Comment: This liquid based ThinPrep(R) pap test was screened with the use of an image guided system. Performed at: WB Performed By: #### C BC #### [facility] [address] [place] [address] Dr. Dimple Parsons Note: Comment Normal [facility] Comment on above: Result Comment: The [...] WB Performed By: #### C BC #### [facility] [address] [address] [address] Dimple Parsons Performed by: Comment Normal [facility] Comment on above: Result Comment: Susan Hercules Performance Improvement Coordinator (ASCP) Performed at: WB Performed By: #### C BC #### [facility] [address] [address] [address] Dimple Parsons Specimen adequacy: Comment Normal [facility] Comment on above: Result Comment: Sati sfactory for evaluation. No endocervical component is identified. Performed at: WB Performed By: #### C BC #### [facility] [address] [place] [address] Dr. Dimple Parsons COVID Quick Testingon 2021 Result Negative [facility] Other Vital Signs Date Time Vital Sign Value Performing Clinician Facility 04-04-2023 14:15-0500 Body height 175.26 cm Surya Hodges Other [facility] 04-04-2023 14:15-0500 Body mass index (BMI) [Ratio] 30.42 kg/m2 Surya Hodges Other [facility] Other 04-04-2023 14:15-0500 Body weight 93.44 kg Surya Hodges Other [facility] 04-04-2023 14:15-0500 Diastolic blood pressure 85 mm[Hg] Surya Hodges Other [facility] 04-04-2023 14:15-0500 Systolic blood pressure 120 mm[Hg] Surya Hodges Other [facility] 12-17-2022 08:30-0400 Body height 175.26 cm Surya Hodges Other [facility] Other 12-17-2022 08:30-0400 Body mass index (BMI) [Ratio] 29.5 kg/m2 Surya Hodges Other [facility] [employer] Other 12-17-2022 08:30-0400 Body weight 90.63 kg Surya Hodges Other [facility] Other 12-17-2022 08:30-0400 Diastolic blood pressure 85 mm[Hg] Surya Hodges Other [facility] Other 12-17-2022 08:30-0400 Systolic blood pressure 120 mm[Hg] Surya Hodges Other [employer] Other 12-01-2022 12:00-0400 Body temperature 97.6 [degF] MD Surya Hodges Work Phone: [facility] 12-01-2022 12:00-0400 Diastolic blood pressure 77 mm[Hg] MD Surya Hodges Work Phone: [facility] 12-01-2022 12:00-0400 Heart rate 89 /min MD Surya Hodges Work Phone: [facility] 12-01-2022 12:00-0400 Respiratory rate 20 /min MD Surya Hodges Work Phone: [facility] 12-01-2022 12:00-0400 SaO2% (BldA) [Mass fraction] 99 % MD Surya Hodges Work Phone: [facility] 12-01-2022 12:00-0400 Systolic blood pressure 116 mm[Hg] MD Surya Hodges Work Phone: [facility] 12-01-2022 05:51-0400 Body weight 89.4 kg MD Surya Hodges Work Phone: [facility] 11-30-2022 16:30-0400 Body height 175.26 cm MD Surya Hodges Work Phone: [facility] 11-29-2022 11:15-0400 Body height 175.26 cm Surya Hodges Other [employer] Other 11-29-2022 11:15-0400 Body mass index (BMI) [Ratio] 28.79 kg/m2 Surya Hodges Other [employer] Other 11-29-2022 11:15-0400 Body temperature 97.1 [degF] Surya Hodges Other [employer] Other 11-29-2022 11:15-0400 Body weight 88.45 kg Surya Hodges Other [employer] Other 11-29-2022 11:15-0400 Diastolic blood pressure 88 mm[Hg] Surya Hodges Other [employer] Other 11-29-2022 11:15-0400 SaO2% (BldA) [Mass fraction] 98 % Surya Hodges Other [employer] Other 11-29-2022 11:15-0400 Systolic blood pressure 124 mm[Hg] Surya Hodges Other [employer] Other 11-18-2022 08:30-0400 Body height 175.26 cm Surya Hodges Other [employer] Other 11-18-2022 08:30-0400 Body mass index (BMI) [Ratio] 28.59 kg/m2 Surya Hodges Other [employer] Other 11-18-2022 08:30-0400 Body weight 87.82 kg Surya Hodges Other [employer] Other 11-18-2022 08:30-0400 Diastolic blood pressure 89 mm[Hg] Surya Hodges Other [employer] Other 11-18-2022 08:30-0400 Systolic blood pressure 131 mm[Hg] Surya Hodges Other [employer] Other 11-05-2022 10:00-0400 Body height 175.26 cm Surya Hodges Other [employer] Other 11-05-2022 10:00-0400 Body mass index (BMI) [Ratio] 29.68 kg/m2 Surya Hodges Other [employer] Other 11-05-2022 10:00-0400 Body weight 91.17 kg Surya Hodges Other [employer] Other 11-05-2022 10:00-0400 Diastolic blood pressure 85 mm[Hg] Surya Hodges Other [employer] Other 11-05-2022 10:00-0400 Systolic blood pressure 134 mm[Hg] Surya Hodges Other [employer] Other 10-18-2022 08:30-0400 Body height 175.26 cm Surya Hodges Other [employer] Other 10-18-2022 08:30-0400 Body mass index (BMI) [Ratio] 28.94 kg/m2 Surya Hodges Other [employer] Other 10-18-2022 08:30-0400 Body weight 88.91 kg Surya Hodges Other [employer] Other 10-18-2022 08:30-0400 Diastolic blood pressure 89 mm[Hg] Surya Hodges Other [employer] Other 10-18-2022 08:30-0400 Systolic blood pressure 137 mm[Hg] Surya Hodges Other [employer] Other 09-09-2022 10:15-0400 Body height 175.26 cm Surya Hodges Other [employer] Other 09-09-2022 10:15-0400 Body mass index (BMI) [Ratio] 29.12 kg/m2 Surya Hodges Other [employer] Other 09-09-2022 10:15-0400 Body weight 89.45 kg Surya Hodges Other [employer] Other 09-09-2022 10:15-0400 Diastolic blood pressure 89 mm[Hg] Surya Hodges Other [employer] Other 09-09-2022 10:15-0400 Respiratory rate 12 /min Surya Hodges Other [employer] Other 09-09-2022 10:15-0400 Systolic blood pressure 132 mm[Hg] Surya Hodges Other [employer] Other 05-21-2022 10:01-0500 Blood Pressure Location Kamaljit ROMERO [facility] 05-21-2022 10:01-0500 Diastolic blood pressure 80 mm[Hg] Kamaljit ROMERO [facility] 05-21-2022 10:01-0500 Heart rate 85 /min Kamaljit ROMERO [facility] 05-21-2022 10:01-0500 Systolic blood pressure 119 mm[Hg] Kamaljit ROMERO [facility] 01-13-2022 08:36-0400 Blood Pressure Location VERA WALDRONRY [facility] 01-13-2022 08:36-0400 Diastolic blood pressure 90 mm[Hg] VERA MANDEEP [facility] 01-13-2022 08:36-0400 Heart rate 91 /min VERA MANDEEP [facility] 01-13-2022 08:36-0400 Respiratory rate 16 /min VERA MANDEEP [facility] 01-13-2022 08:36-0400 Systolic blood pressure 134 mm[Hg] VERA MANDEEP [facility] 04-08-2021 15:30-0500 Body height 175.26 cm Treasure Quezada Other [employer] [facility] Other 04-08-2021 15:30-0500 Body mass index (BMI) [Ratio] 29.97 kg/m2 Treasure Quezada Other [employer] Other 04-08-2021 15:30-0500 Body temperature 96.6 [degF] Treasure Quezada Other [employer] Other 04-08-2021 15:30-0500 Body weight 92.08 kg Treasure Quezada Other [employer] Other 04-08-2021 15:30-0500 Respiratory rate 18 /min Treasure Quezada Other [employer] Other 04-08-2021 15:30-0500 SaO2% (BldA) [Mass fraction] 98 % Treasure Quezada Other [employer] Other Encounters Encounter Date Encounter Type Care Provider Facility Start: 05-04-2023 End: 05-04-2023 ambulatory [facility] Work Phone: Start: 05-04-2023 End: 05-04-2023 Patient encounter procedure [facility] Physician [facility] Work Phone: Start: 05-02-2023 Non-patient / Non-visit [facility] Physician [facility] Work Phone: Start: 04-21-2023 End: 04-21-2023 ambulatory YESICA BECKER Not Available Start: 04-21-2023 End: 04-21-2023 Online digital e/m svc est pt <7 d 11-20 minutes Yesica Becker PA Work Phone: [facility] Comment on above: Insulin resistance; Metabolic syndrome; Hormone imbalance Start: 04-04-2023 End: 04-04-2023 ambulatory Surya Hodges Other [employer] Other Start: 04-04-2023 Office outpatient vi sit 15 minutes Surya Hodges [facility] Start: 04-04-2023 End: 04-04-2023 Patient encounter procedure [facility] Physician [facility]- Start: 03-11-2023 End: 03-11-2023 ambulatory Surya Hodges Other [employer] Other Start: 03-11-2023 Telephone encounter Surya Hodges [facility] Start: 03-11-2023 Patient encounter procedure [facility] Physician [facility]- Start: 02-09-2023 End: 02-09-2023 ambulatory YESICA BECKER Not Available Start: 01-12-2023 End: 01-12-2023 ambulatory Surya Hodges Other [employer] Other Start: 01-12-2023 Telephone encounter Surya Hodges [facility] Start: 12-17-2022 End: 12-17-2022 ambulatory Surya Hodges Other [employer] Other Start: 12-17-2022 Office outpatient vi sit 15 minutes Surya Hodges [facility] Start: 11-30-2022 End: 12-01-2022 Evaluation and management of inpatient MD Surya Hodges Work Phone: [facility] Work Phone: Start: 11-30-2022 End: 12-01-2022 observation encounter MD Surya Hodges Work Phone: [facility] Work Phone: Start: 11-30-2022 End: 12-01-2022 ambulatory Baljinder Polanco [employer] Other Start: 11-30-2022 Telephone encounter Surya Hodges [facility] Start: 11-29-2022 End: 11-29-2022 ambulatory Surya Hodges Other [employer] Other Start: 11-29-2022 Office outpatient vi sit 15 minutes Surya Hodges [facility] Start: 11-29-2022 Telephone encounter Surya Hodges [facility] Start: 11-18-2022 End: 11-18-2022 ambulatory Surya Hodges Other [employer] Other Start: 11-18-2022 Office outpatient vi sit 10 minutes Surya Hodges [facility] Start: 11-05-2022 End: 11-05-2022 ambulatory Surya Hodges Other [employer] Other Start: 11-05-2022 Office outpatient vi sit 10 minutes Surya Hodges [facility] Start: 11-04-2022 End: 11-04-2022 ambulatory Surya Hodges Other [employer] Other Start: 11-04-2022 Telephone encounter Surya Hodges [facility] Start: 10-18-2022 End: 10-18-2022 ambulatory Surya Hodges Other [employer] Other Start: 10-18-2022 Office outpatient vi sit 10 minutes Surya Hogdes [facility] Start: 09-17-2022 End: 09-17-2022 ambulatory Surya Hodges Other [employer] Other Start: 09-17-2022 Telephone encounter Surya Hodges [facility] Start: 09-09-2022 End: 09-09-2022 ambulatory Surya Hodges Other [employer] Other Start: 09-09-2022 Office outpatient vi sit 15 minutes Surya Hodges [facility] Start: 09-03-2022 ambulatory Kamaljit ROMERO Facili ty:[facility] Start: 06-18-2022 Encounter for other preprocedural examination DR BRENT ROLAND . [facility] Start: 06-16-2022 End: 06-16-[address] BRENT ROLAND . Facility:[facility] Start: 06-14-2022 End: 06-15-[address] BRENT ROLAND . Facility:[facility] Start: 06-14-2022 End: 06-15-2022 Encounter for other preprocedural examination DR BRENT ROLAND . Facility:[facility] Start: 06-04-2022 End: 06-05-[address] BRENT ROLAND . Facility:[facility] Start: 05-25-2022 End: 05-26-[address] BRENT ROLAND . Facility: Start: 05-21-2022 End: 05-22-2022 ambulatory Kamaljit ROMERO Facility:[facility] Start: 05-21-2022 End: 05-21-2022 Patient encounter procedure Kamaljit ROMERO [facility] Start: 05-20-2022 End: 05-21-[address] SURYA HODGES Facility:[facility] Start: 05-08-2022 End: 05-08-[address] SURYA HODGES Facility:[facility] Start: 03-23-2022 End: 04-16-2022 ambulatory BRINA SHEIKH Facility:[facility] Start: 03-16-2022 End: 03-16-2022 ambulatory Surya Hodges Other [employer] Other Start: 03-16-2022 Office outpatient vi sit 15 minutes Surya Hodges [facility] Start: 02-25-2022 Gynecological examin ation normal Surya Hodges Other [employer] Other Start: 02-25-[address] SURYA HODGES Facil ity:[facility] Start: 02-21-2022 End: 02-21-2022 ambulatory Treasure Quezada Facility:[facility] Start: 02-21-2022 End: 02-21-2022 ambulatory MD Surya Hodges Work Phone: [facility] Work Phone: Start: 02-21-2022 End: 02-21-2022 Patient encounter procedure MD Surya Hodges Work Phone: [facility] Start: 01-19-2022 End: 01-20-2022 ambulatory Dee Mirza Facility:[id number] Start: 01-13-2022 End: 01-14-[address] BRENT ROLAND . Facility:[facility] Start: 01-13-2022 ambulatory Kamaljit ROMERO Facility :[facility] Start: 01-13-2022 End: 01-14-2022 ambulatory RONDA KAUFMAN Facility:[facility] [place] Start: 01-13-2022 End: 01-13-2022 Patient encounter procedure VERA KAUFMAN [facility] Start: 12-21-2021 End: 12-21-[address] BRENT ROLAND . Facility: Start: 04-08-2021 (URG) Urgent Care Visit Treasure pimentel [facility] Start: 04-08-2021 End: 04-08-2021 ambulatory Treasure Quezada Other [facility] [employer] Other Start: 05-16-2020 Pre-procedure evalua tion check Surya Hodges Other [employer] Other Procedures Date Procedure Procedure Detail Performing Clinician Start: 11-30-2022 Ultrasonography of liver MD Surya Hodges Work Phone: Start: 11-30-2022 Respiratory Panel (PCR) MD Surya Hodges Work Phone: Start: 11-30-2022 Plain chest X-ray MD Kike Hodges Work Phone: Start: 02-21-2022 X-ray of left ankle MD Surya Hodges Work Phone: Start: 01-19-2022 Injection of urethra Pa anuj ROMREO Appendectomy VERA KAUFMAN Cholecystectomy VERA PATRICIA Depression screening Surya Hodges Other Hysterectomy VERA KAUFMAN Hysterectomy Surya Hodges Other Insertion of intraut erine contraceptive device Surya Hodges Other MRI guided ablation of uterine fibroid VERA KAUFMAN End: 06-01-2018 Removal of intrauterine device Surya Hodges Other Plan of Treatment Date Care Activity Detail Author Start: 12-01-2022 [facility] Start: 11-30-2022 Hospital admission [facility] Start: 11-12-2022 Influenza vaccination Influenza Vacc ine (#1) [facility] Start: 06-10-2019 Screening for malignant neoplasm of cervix [facility] Start: 2010 Screening for malignant neoplasm of cervix Pap Smear [facility] Healthcare CBC W Auto Differential panel - Blood CBC and differential Lab Routine Metabolic syndrome Hormone imbalance Ordered: 04/21/2023 [facility] Work Phone: Comment on above: Ordered: 04/21/2023 Patient Education Mediterranean Diet Hyperthyroidism (Overactive Thyroid) (DC) Propranolol Prediabetes (DC) [facility] Work Phone: Patient referral [facility] Work Phone: Immunizations Immunization Date Immunization Notes Care Provider Fa cility 04-20-2021 SARS-CoV-2 (COVID-19 ) mRNA BNT-162b2 vax VERA MANDEEP [facility] Comment on above: Result Comment: 2021: T[facility]ALL 08-14-2020 SARS-CoV-2 (COVID-19 ) Ad26 vaccine, recombinant VERA MANDEEP [facility] Comment on above: Result Comment: 2021: TPVALL Payers Date Payer Category Payer Self-pay [id number] 2021 Unknown BCBS BCBS [id number] 2021-Present [phone] [address] [place] [address] [id number]. [id number] 1989 Unknown [id number] 2.16.840.1.168535.3.579.2. 727 1989 Unknown [id number] 2.16.840.1.566034.3.579.2. 727 1989 Unknown [id number] 2.16.840.1.557938.3.579.2. 727 1989 Unknown [id number] 2.16.840.1.104501.3.579.2. 727 1989 Unknown [id number] 2.16.840.1.225947.3.579.2. 593 1989 Unknown [id number] 2.16.840.1.672966.3.579.2. 593 1989 Unknown [id number] 2.16.840.1.189955.3.579.2. 593 1989 Unknown [id number] 2.16.840.1.365252.3.579.2. 593 1989 Unknown [id number] 2.16.840.1.793079.3.579.2. 593 1989 Unknown [id number] 2.16.840.1.359751.3.579.2. 593 1989 Unknown [id number] 2.16.840.1.023328.3.579.2. 593 1989 Unknown [id number] 2.16.840.1.046733.3.579.2. 593 1989 Unknown [id number] 2.16.840.1.308507.3.579.2. 593 1989 Unknown [id number] 2.16.840.1.017934.3.579.2. 593 1989 Unknown [id number] 2.16.840.1.026300.3.579.2. 593 1989 Unknown [id number] 2.16.840.1.095191.3.579.2. 593 1989 Unknown [id number] 2.16.840.1.237237.3.579.2. 1259 1989 Unknown [id number] 2.16.840.1.979820.3.579.2. 1259 1959 Blue Cross Blue Shield DZILA [id number] 2.16.840.1.843417.19 Unknown [place] BC/BS [id number] Unknown [id number] 2.16.840.1.237357.3.579.2. 531 Unknown [id number] 2.16.840.1.375014.3.579.2. 531 Social History Date Type Detail Facility Unknown if ever smoked [facility] Other Start: 02-09-2023 Sex Assigned At F [facility] Start: 01-13-2022 End: 04-04-2023 Tobacco smoking status Never smoked tobacco (finding) [facility] Tobacco smoking status Never [facility] Start: 1990 Sex Assigned At Female F [facility] Start: 02-09-2023 Alcohol intake Ex-drinker (finding) [facility] Start: 02-09-2023 History of Social function [facility] Start: 09-24-2022 Alcohol Comment occasional: dr kam wine & beer [facility] Start: 09-27-2022 Gender identity Identifies as female gender (finding) [facility] Goals Date Patient Goal Desired Activity /State Functional Status Date Assessment Result Facility 12-01-2022 Functional status Patient at Baseline [facility] Work Phone: 05-21-2022 Functional Status N/A [facility] 01-13-2022 Functional Status N/A [facility] Mental Status Date Assessment Result Facility 12-01-2022 Cognitive function Cognitive Sta tus Patient at Baseline [facility] Work Phone: Clinical Notes 04-08-2021 to 04-21-2023 MARGRET Canales - 04/21/2023 8:50 AM ESTHedy Carter MA - 04/21/2023 8:50 AM EST Note Date & Type Note Facility 04-21-2023 History of Presen t illness Narrative Reason for Appointment: Patient ID: Tootie Vazquez is a 32 y.o. female who presents for telehealth follow up Patient presents today via telephone call for a telehealth appointment. Patients Phone #: [phone] (mobile) Current Medications: has a current medication [...] LIGATION Bilateral 2012 Allergies Allergen Reactions Adacel [Otymyeh-Fkjccl-Vvqoq Pertussis] Swelling Clindamycin Rash Vitals: Estimated body [...] for cbc check for kidney function to [facility]. Pt aware and agrees to have blood work obtained. She will follow up in office in 3 months Documented by MARGRET Canales on behalf of: MARGRET Canales Cbc order was sent to [facility] for pt to have done. documented in this encounter [facility] 04-04-2023 Evaluation note Encounter Date Diagnosis Assessment Notes Mar, Bronchitis (ICD-10 - J40) Discussed diagnosis with patient. Finish entire course of antibiotic. Proair inhaler sent today for patient to use PRN cough/wheezing/s hortness of breath. Tessalon Pearles ordered to take as needed for cough. Increase fluids and rest. Czop-ezx-ihwyene antipyretics as needed. Warning signs and symptoms reviewed with patient today. Patient to go immediately to the ER should she experience any of these. Patient to notify office should her symptoms persist and not improve. Patient verbalizes understanding and agrees to treatment plan. Mar, Vaginal yeast infection (ICD-10 - B37.31) Pt requests diflucan to cover probable yeast infection w antibiotic. [facility] Other 12-29-2023 Evaluation note* Encounter Date Diagnosis Assessment Notes Treatment Notes Treatment Clinical Notes Feb, Sore throat (ICD-10 - J02.9) [facility] Other 10-06-2023 Evaluation note* Encounter Date Diagnosis Assessment Notes Treatment Notes Treatment Clinical Notes Dec, Hypothyroidism (ICD-10 - E03.9) Recheck in next 4-6 weeks. Continue healthy diet and exercise. [facility] Other 09-20-2023 Discharge summary Author Baljinder Polanco [facility] December 01, 2022 5:19pm Note Date/Time December 01, 2022 1:02pm [facility] [address] [place] [address] Discharge Summary Signed Patient: Karlene Vazquez MR#: [id number] : 1990 Acct:[id number] Age/Sex: 32 / F Adm Date: 3 Loc: 3T Room: [address] [place] [address]: Baljinder Polanco MD Copies to: [...] Clear, Urine pH >= 9.0, Ur Specific [place] 1.013, Urine Protein Negative, Urine Glucose (UA) [...] % (Auto) 59.2, Lymph % (Auto) 32.3, [place] % (Auto) 6.8, Eos % (Auto) 0.9, Baso % (Auto) 0.8, Nucleat RBC Rel Count 0.2, Neut # (Auto) 4.9, Lymph # (Auto) 2.7, [place] # (Auto) 0.6, Eos # (Auto) 0.1, Baso # (Auto) 0.1, Monocyte Dist Width19.22 11/30/22 13:00: PHA Creatinine Clear 114.08, Sodium 138, Potassium 4.1, Kfijrjjy066, Carbon Dioxide 23.9, Anion Gap 14.2, BUN 9, Creatinine 0.83, Est GFR (CKD-EPI) > 60.0, Glucose 77, Calcium 9.5, Magnesium 1.9, Total Bilirubin 0.9, DirectBilirubin 0.00 L, Indirect Bilirubin 0.9, AST 11 L, ALT 16, Alkaline Fvevdvthfbu11, Total Protein 7.6, Albumin 4.4, Globulin 3.2, [...] needed.) Documented By: Baljinder Polanco MD 12/01/22 9915 Signed By: <Electronically signed by Baljinder Polanco MD> 12/01/22 1926 [facility] Work Phone: 1(520) 199-411909-19-2023 History and physical note Author Baljinder Polanco [facility] November 30, 2022 4:34pm Note Date/Time November 30, 2022 4:34pm [facility] [address] [place] [address] Hospitalist H&P Signed Patient: Karlene Vazquez MR#: [id number] : 1990 Acct:[id number] Age/Sex: 32 / F Adm Date: 3 Loc: Room: [address] [place] [address] Type: ADM IN Attending Dr: Baljinder Polanco [...] rub or JVD. Peripheral pulses present bilaterally. Reecr-bb-segb ultrasound is unremarkable. Lungs are clear to [...] contributes to her symptoms. DVT prophylaxis Xarelto [facility] Medical History (Updated 11/30/22 @ 15:13 by [...] % (Auto) 32.3 % (.) 11/30/22 13:00 [place] % (Auto) 6.8 % (.) 11/30/22 13:00 Eos % (Auto) 0.9 % (.) 11/30/22 13:00 Baso % (Auto) 0.8 % (.) 11/30/22 13:00 Nucleat RBC Rel Count 0.2 /100 WBC (0-0.5) 11/30/22 13:00 Neut # (Auto) 4.9 x10E3/uL (1.8-7.7) 11/30/22 13:00 Lymph # (Auto) 2.7 x10E3/uL (1.00-4.8) 11/30/22 13:00 [place] # (Auto) 0.6 x10E3/uL (0.0-0.8) 11/30/22 13:00 [...] >= 9.0 (5.0-9.0) 11/30/22 16:04 Ur Specific [place] 1.013 (1.001-1.030) 11/30/22 16:04 Urine Protein Negative [...] 1631 Signed By: <Electronically signed by Baljinder Polanco MD> 11/30/22 1634 [facility] Work Phone: 1(403) 872-331309-18-2023 Evaluation note* Encounter Date Diagnosis Assessment Notes [...] - E03.9) Pt's 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 Complete all doses. Wash all belongings that came in contact with plant oils. May continue to use Calamine lotion. Patient verbalized understanding and agreement with treatment plan. [facility] Other 08-07-2023 Evaluation note* Encounter Date Diagnosis [...] to ER and Follow-up with me immediately. [facility] Other 07-07-2023 Evaluation note* Encounter Date Diagnosis Assessment Notes Treatment Notes Treatment Clinical Notes Sep, Overweight (ICD-10 - E66.3) Sep, Body mass index [BMI] 29.0-29.9, adult (ICD-10 - Z68.29) [facility] Other 06-29-2023 Evaluation note* Encounter Date Diagnosis Assessment Notes Treatment Notes Treatment Clinical Notes Aug, Acute contact dermatitis (ICD-10 - L25.9) Take medications as directed. Complete all doses. Wash all belongings that came in contact with plant oils. May continue to use Calamine lotion. Patient verbalized understanding and agreement with treatment plan. [facility] Other 04-05-2023 NoteOPERATIVE NOTE OPERATION DATE: 06/16/2022 PROCEDURE: Diagnostic laparoscopy. PREOPERATIVE DIAGNOSIS: Pelvic pain, left ovarian cyst. POSTOPERATIVE DIAGNOSIS: Pelvic pain, left ovarian cyst. ANESTHESIA: General. SURGEON: Brent Roland D.O. YARN CONDITIONER: MIRNA Harden URINE OUTPUT: Yellow and clear. [...] taken to Recovery Room in stable condition.[id number] Discharge instructions Patient Education 05/21/2022 10:45:43 Kidney Stones, Letk-ft-Kfck Kidney Stones Kidney stones are rock-like masses [...] Follow these instructions at home: Medicines Take nprl-rsx-beqcbqz and prescription medicines only as told by [...] 08/16/2008 Document Revised: 07/17/2019 Document Reviewed: 07/17/2019 [employer] Patient Education 2019 [employer]. Follow Up Care 05/11/2022 13:32:37 With:LUCY STILES, Kamaljit Rivas, URL Address: [address] [place] [address]- When: Unknown [facility] 01-03-2023 Evaluation note* Encounter Date Diagnosis Assessment Notes Treatment Notes Treatment Clinical Notes Mar, Pharyngitis, unspecified etiology (ICD-10 - J02.9) New medications as directed. Increase fluids, rest, good hand washing. OTC for fever/discomfort. Tooth brush in the damage appraiser or get a new one after on antibiotics for 24 hours. F/U if no improvement in the next 72 hours Mar, Vaginal yeast infection (ICD-10 - B37.31) Will treat empirically for yeast, discharge and sx reported consistent with that of vaginal candidiasis. Instructed patient to take as directed, advised that she should feel improvement in about 2 days. [facility] Other 11-02-2022 NoteChief Complaint Referral-Stress Incontinence HPI [...] E&M of New Patient Moderate 45-59 Min 56690 Measure Post Void residual urine and/or bladder capacity by US- non-imaging 02915 Urnls Dip Stick Auto w/o Microscopy POC 00555 Follow-up With When Contact Information [facility] [address] [place] [address] Business (1) Additional Instructions: for [...] Dipstick: Negative (01/13/22 08:33:00) (more content not included)...[facility]Result Comment: Electronically Signed By: VERA KAUFMAN PA-C\.br\Date and Time Signed: 01/13/2211:04 [id number] Hospital Discharge instructions Patient Education 01/13/2022 11:03:33 [...] 02/14/2013 Document Revised: 10/18/2018 Document Reviewed: 10/18/2018 [employer] Patient Education 2020 [employer]. Follow Up Care 01/11/2022 14:36:11 With:[facility] Address: [address] [place] [address] Business (1) When: Unknown Comments:for procedure as scheduled [facility] 01-26-2022 Evaluation note* Encounter Date Diagnosis Assessment [...] Patient care instructions given in writting by [facility] Care At Home document. [facility] Other Evaluation + Plan note No data available for this section [facility] evaluation + Plan note Future Appointments Appointment Date:09/03/2022 08:00:00 AM Scheduled Provider:Kamaljit ROMERO MD Location:[facility] Appointment Type:URO Office Visit [facility] evaluation noteNo assessment information available [facility] Work Phone: Evaluation noteNo InformationNortWell[facility] Other Evaluation note* Diagnosis Onset Date Resolution Status Chest pain acute Tachycardia acute [facility] Work Phone: Evaluation note* Diagnosis Insulin resistance Other abnormal glucose Metabolic syndrome Dysmetabolic Syndrome X Hormone imbalance documented in this encounter [facility] N[facility] - Reported* Type Description Date Medical History hypothyroidism Surgical History gallbladder removal Surgical History appendecs Surgical History ovarian cysts taken out in 2007 Surgical History hysterectomy Hospitalization History surgeries Hospitalization History child [facility] Other History general Narrative - Reported* Type Description Date Medical History hypothyroidism Surgical History gallbladder removal Surgical History appendecs Surgical History ovarian cysts taken out in 2007 Surgical History hysterectomy Hospitalization History surgeries Hospitalization History child Hospitalization History [facility] [place] chest pain 11/2022 [facility] Other Hospital Discharge instructions Additional Instructions You have slightly elevated cholesterol level and prediabetes. Try to eat a healthier diet. Mediterranean diet is the best studied to improve health outcomes. I attached some instructions. Establish care with a primary care physician who will manage all your health issues.[facility] Work Phone: Progress note No data available for this section [facility] Advance Directives Advance Directive Response Recorded Date/ Time Advance Directives No April 12, 2017 2:55pm Advance Directive Response Recorded Date/ Time Advance Directives No April 12, 2017 3:55pm Summary Purpose Family History Relationship Condition Age at Onset Recorded Date/T pool grandparent Myocardial infarction Unknown History of coronary artery bypass surgery Unknown Malignant neoplasm of colon Unknown Relationship Condition Age at Onset Recorded Date/T pool grandparent Myocardial infarction Unknown History of coronary artery bypass surgery Unknown Malignant neoplasm of colon Unknown Not Specified Hypertension Unknown Chief Complaint and Reason for Visit Chief Complaint chest pain sob Reason for Visit Chest pain Tachycardia Chief Complaint Cough/ Chest Fever, Strep Throat, No Voice, Work Note Additional Source Comments REASON FOR VISIT (unrecogniz ed section and content) Reason Comments telehealth follow up Patient Care team informatio n (unrecognized section and content) Team Status: Active Member Role Status Dates Surya Hodges MD Primary Care Provider Active Team Status: Active Member Role Status Dates Provider Conversion Attending Provider Active St art: March 11, 2023 Team Status: Inactive Member Role Status Dates Surya Hodges MD Attending Provider Active St art: April 04, 2023 End: April 04, 2023 Team Status: Active Member Role Status Dates Surya Hodges MD Primary Care Provide r, Attending Provider Active Start: May 02, 2023 Team Status: Inactive Member Role Status Dates Surya Hodges MD Primary Care Provide r, Attending Provider Active Start: May 04, 2023 End: May 04, 2023 Team Status: Inactive Member Role Status Dates Surya Hodges MD Primary Care Provider Active Treasure Quezada NP-C Attending Provider Active Team Status: Active Member Role Status Dates Surya Hodges MD Primary Care Provider Active Team Status: Inactive Member Role Status Dates Surya Hodges MD Primary Care Provider Active Marcio Steven DO Emergency Provider Active Baljinder Polanco MD Admit Provider, Attending Provider Active Reimbursement Spec Relationship Specialty Start Date End Date Surya Hodges MD [address] [place] [address] PCP - General Family Medicine 09/27/22 Team Status: Active Member Role Status Dates Provider Conversion Attending Provider Active St art: March 11, 2023 Team Status: Inactive Member Role Status Dates Surya Hodges MD Attending Provider Active St art: April 04, 2023 End: April 04, 2023 Team Status: Active Member Role Status Dates Surya Hodges MD Primary Care Provide r, Attending Provider Active Start: May 02, 2023 Team Status: Inactive Member Role Status Dates Surya Hodges MD Primary Care Provide r, Attending Provider Active Start: May 04, 2023 End: May 04, 2023 Goals (unrecognized section and content) Goals may be documented in a n alternate section INFORMATION SOURCE (unrecogn ized section and content) DATE CREATED AUTHOR 05/23/2022 Obinna Cooley [facility] DATE CREATED AUTHOR AUTHOR'S ORGANIZ ATION 07/01/2022 [facility] DATE CREATED AUTHOR AUTHOR'S ORGANIZ ATION 12/18/2022 [facility] DATE CREATED AUTHOR AUTHOR'S ORGANIZ ATION 04/22/2023 [facility] dical Specialists [facility] FOR RECORDS PERTAINING TO PATIENTS WHO ARE [...] BE BASED ON THE PRIMARY CLINICAL RECORDS. [facility]. provides no warranty or guarantee of the accuracy or completeness of information in this document.
--- NOTE | 2023-06-10 15:59 | US_ITS ---
[address] [address] Patient Name: SOO VAZQUEZ MRN: [id number] date: 1990 Sex: F Assigned Patient Location: US Current Patient Location: Accession/Order Number: [id number] Exam Date: 06/10/2023 16:04 Report Date: 06/11/2023 07:05 At the request of: NICOLE RIDER Procedure: US thyroid EXAMINATION: US thyroid HISTORY: HYPOTHYROIDISM E03.9 COMPARISON: Ultrasound thyroid 02/23/2023 FINDINGS: RIGHT LOBE: Normal size and echotexture. Lobe size: 3.8 x 0.7 x 1.0 cm LEFT LOBE: Normal size and echotexture. Lobe size: 3.3 x 0.5 x 0.8 cm ISTHMUS: Normal size and echotexture. Thickness: 1 mm US/US thyroid IMPRESSION: 1. Normal thyroid ultrasound. Electronically authenticated by: DAVID ALDANA Date: 06/11/2023 07:05
[2023-06-10 16:32] LABS: Free T3 2.81 pg/mL (2.18-3.98); Thyroid Stimulating Hormone 2.054 uIU/mL (0.358-3.740)
[2023-06-12 08:07] LABS: Thyroid Peroxidase (TPO) Ab <9 IU/mL (0-34)
== END 2023-06-10 15:43 | disposition home or self-care (01) ==
LOC: US 15:43
PROVIDERS: PCP Obstetrics & Gynecology; Visit Provider Internal Medicine
DX: E88.810 Metabolic syndrome (principal); E34.9 Endocrine disorder, unspecified; E03.9 Hypothyroidism, unspecified; E55.9 Vitamin D deficiency, unspecified
CPT/HCPCS: 36415; 76536; 82306; 84439; 84443; 84481; 85025; 86376

== ENCOUNTER 2023-06-10 15:44 | Outpatient (OUT) | payer BC, SELFPAY ==
--- OUTSIDE RECORDS SUMMARY | 2023-06-10 15:49 | XMS_ITS | CCD ---
Author Organization [facility] Care Team Providers Care Survey Questionnaire Designer Name Role Phone Treasure Quezada Unavailable SURYA HODGES Primary Care Physician MD Surya Hodges Primary Care Provider KITA Quezada Attending Provider Surya Hodges Unavailable Kamaljit ROMERO Attending Unavailable RONDA KAUFMAN Attending Unavailab Brent Pan Referring Unavailable Kamaljit ROMERO Attending Unavailable Dee Mirza. Attending Unavailable COLEEN ., DR SEYMOUR Admitting [...] Unavailable LUOleg .DEE Consulting Unavailable TRACIE, DR SURYA Damon Primary Care Unavailable ROMERO [...] Unavailable MD Surya Hodges Primary Care Provider [phone] DO Marcio Steven Emergency Provider [phone] MD Baljinder Polanco Admit Provider [phone] MD Baljinder Polanco Attending Provider [phone] Treasure Quezada Attending Unavailable Treasure Quezada Admitting [...] Eruption of skin (disorder) [facility] (17 sources) whooping cough Propensity to adverse reactions 4 swelling injection site [facility] (15 sources) Bordetella pertussis filamentous hemagglutinin vaccine, inactivated / Bordetella pertussis fimbriae 2/3 vaccine, inactivated / Bordetella pertussis pertactin vaccine, inactivated / Bordetella pertussis toxoid vaccine, inactivated / diphtheria toxoid vaccine, inactivated / tetanus toxoid vaccine, inactivated; Translations: [diphtheria/pertu ssis, acel/tetanus adult] Drug Allergy 0 Unknown, Comment:amrit damon [facility] (18 sources) Clindamycin; Translations: [clindamycin] Drug Allergy 0 Rash [facility] (2 sources) acellular pertussis vaccine, inactivated / diphtheria toxoid vaccine, inactivated / tetanus toxoid vaccine, inactivated Drug Allergy [facility] (2 sources) Clindamycin Drug Allergy [facility] (3 sources) vaccine adjuvant system, AS01B liposomal; Translations: [vaccine adjuvant system, AS01B liposomal] Allergy to substance 3 Rash [facility] (1 source) Clindamycin Drug Allergy 3 [facility] (1 source) Xhtarrb-Xafhdz-Fn ell Pertussis Propensity to adverse reactions 3 Swelling [facility] Work Phone: (1 source) diphtheria,pertus sis (acellular),te Allergy to substance 4 Comment:amrit damon [facility] Medications Current Medications Medication Drug Class(es) Dates Sig (Normalized) Sig (Original) [id number] 60 actuat albuterol 0.09 mg/actuat metered dose [...] take 1 tablet by mouth every w [place] Diflucan 150 MG 1 tablet Orally weekly [...] container terminal (current) drug therapy; Translations: [OTH NURSING HOME CURRENT DRUG THERAPY] Onset: 3 Episodic Other aftercare (3 sources) Long-term current use of drug therapy; Translations: [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] Episodic Other aftercare (3 [...] Basophils (Bld) [#/Vol] 0.1 10 3/uL 0.0-0.1 [facility] Basophils/100 WBC Auto (Bld) on 05-02-2023 Basophils/100 WBC (Bld) 0.4 % 0.2-2.0 [facility] Eosinophils/100 WBC Auto (Bl d)on 05-02-2023 Eosinophils/100 WBC (Bld) 0.1 % 0.9-7.0 [facility] Erythrocyte distribution wid th Auto (RBC) [Ratio]on 05-02-2023 Erythrocyte distribution width (RBC) [Ratio] 13.1 % 11.0-15.0 [facility] Estimated glomerular filtrat ion rate (GFR) non- Americanon 05-02-2023 GFR/1.73 sq M.predicted among non-blacks MDRD (S/P/Bld) [Vol rate/Area] mL/min/{1.73_m2} >=60 [facility] Hematocrit Auto (Bld) [Volum e fraction]on 05-02-2023 Hematocrit (Bld) [Volume fraction] 41.6 % 36.0-48.0 [facility] Hemoglobin [Mass/volume] in Bloodon 05-02-2023 Hemoglobin (Bld) [Mass/Vol] 13.6 g/dL 12.0-16.0 [facility] Laboratory - Chemistry and C hemistry - challengeon 05-02-2023 Calcium [Mass/Vol] 8.7 mg/dL 8.5-10.1 [facility] Chloride [Moles/Vol] 101 mmol/L 98-107 [facility] CO2 [Moles/Vol] 24.8 mmol/L 21.0-32.0 [facility] Creatinine [Mass/Vol] 0.89 mg/dL 0.55-1.02 [facility] GFR/1.73 sq M.predicted MDRD (S/P/Bld) [Vol rate/Area] mL/min/{1.73_m2} >=60 [facility] Glucose [Mass/Vol] 112 mg/dL 74-106 [facility] Potassium [Moles/Vol] 4.0 mmol/L 3.5-5.1 [facility] Sodium [Moles/Vol] 137 mmol/L 136-145 [facility] Urea nitrogen [Mass/Vol] 5.0 mg/dL 7.0-18.0 [facility] Urea nitrogen/Creatinine [Mass ratio] 5.6 mg/mg [facility] Laboratory - Hematology and Cell countson 05-02-2023 Immature granulocytes/100 WBC (Bld) 0.3 % 0.0-0.5 [facility] - Microbiology an d Antimicrobial susceptibilityon 05-02-2023 S. pyogenes Ag Ql (Unsp spec) Positive [facility] SARS-CoV-2 (COVID-19) RNA LEO+probe Ql (Unsp spec) Negative NEGATIVE [facility] Comment on above: This test has [...] Auto (Bld) [#/Vol] 12.4 10 3/uL 4.0-11.0 [facility] Lymphocytes Auto (Bld) [#/Vo l]on 05-02-2023 Lymphocytes (Bld) [#/Vol] 1.0 10 3/uL 1.2-3.8 [facility] Lymphocytes/100 WBC Auto (Bl d)on 05-02-2023 Lymphocytes/100 WBC (Bld) 7.9 % 20.5-60.0 [facility] MCH Auto (RBC) [Entitic mass ]on 05-02-2023 MCH (RBC) [Entitic mass] 27.9 pg 26.7-34.0 [facility] MCHC Auto (RBC) [Mass/Vol]on 05-02-2023 MCHC (RBC) [Mass/Vol] 32.7 g/dL 29.9-35.2 [facility] MCV Auto (RBC) [Entitic vol] on 05-02-2023 MCV (RBC) [Entitic vol] 85.2 fL 81.0-99.0 [facility] Monocytes Auto (Bld) [#/Vol] on 05-02-2023 Monocytes (Bld) [#/Vol] 0.8 10 3/uL 0.3-0.8 [facility] Monocytes/100 WBC Auto (Bld) on 05-02-2023 Monocytes/100 WBC (Bld) 6.3 % 1.7-12.0 [facility] Neutrophils Auto (Bld) [#/Vo l]on 05-02-2023 Neutrophils (Bld) [#/Vol] 10.5 10 3/uL 1.4-6.5 [facility] Neutrophils/100 WBC Auto (Bl d)on 05-02-2023 Neutrophils/100 WBC (Bld) 85.0 % 43.0-75.0 [facility] No Panel Informationon 05-02 Bedside Influenza Type A Antigen Negative [facility] Comment on above: Negative for Flu A p rotein antigen. Infection due to Flu Acannot be ruled out. Flu A antigen in the sample may bebelow the detection limit of the test. Bedside Influenza Type B Antigen Negative [facility] Comment on above: Negative for Flu B p rotein antigen. Infection due to Flu Bcannot be ruled out. Flu B antigen in the sample may bebelow the detection limit of the test. Eosinophils # (Auto) 0.0 10 3/uL 0.0-0.7 [facility] Immature Granulocyte # (Auto) 0.04 10 3/uL 0.00-0.03 [facility] Monoscreen Negative NEGATIVE [facility] Platelet mean volume Auto (B ld) [Entitic vol]on 05-02-2023 Platelet mean volume (Bld) [Entitic vol] 8.9 fL 9.5-13.5 [facility] Platelets Auto (Bld) [#/Vol] on 05-02-2023 Platelets (Bld) [#/Vol] 369 10 3/uL 150-450 [facility] RBC Auto (Bld) [#/Vol]on RBC (Bld) [#/Vol] 4.88 10 6/uL 4.20-5.40 [facility] Serum or plasma anion gap de terminationon 05-02-2023 Anion gap [Moles/Vol] 15.2 mmol/L [facility] A1C with Estimated Average G hussain 12-01-2022 Glucose [Mass/Vol] 120 mg/dL Normal [facility] Comment on above: Result Comment: PERF ORMED BY: [place] [address] PATHOLOGIST LABORER CHEMICAL PROCESSING ISAIAS DE LA CRUZ M.D. Performed By: #### L IPID, HS TROP, A1C WTH eA ####[facility] HbA1c (Bld) [Mass fraction] 5.8 % High 4.3-5.6 [facility] Comment on above: Result Comment: Incr eased risk for diabetes: 5.7 - 6.4 diabetes: >6.4 glycemic control for adults with diabetes: <7.0 Performed By: #### L IPID, HS TROP, A1C WTH eA ####[place] [id number] [address] Cholesterol [Mass/volume] in Serum or PlasmaOrdered By: Baljinder Polanco on 12-01-2022 Cholesterol [Mass/Vol] 214 mg/dL 140-200 [facility] Comment on above: Chol less than 200 m g/dl low riskChol 201-239 mg/dl borderline riskChol 240 mg/dl and greater high risk Cholesterol in LDL Calc [Mas s/Vol]Ordered By: Baljinder Polanco on 12-01-2022 Cholesterol in LDL [Mass/Vol] 132 mg/dL 0-100 [facility] Comment on above: LDL ATP III CLASSIFI CATIONLDL less than 100 mg/dL OptimalLDL 100-129 mg/dL Near or above optimalLDL 130-159 mg/dL Borderline highLDL 160-189 mg/dL HighLDL greater than 189 mg/dL Very high Cholesterol in VLDL Calc [Ma ss/Vol]Ordered By: Baljinder Polanco on 12-01-2022 Cholesterol in VLDL [Mass/Vol] 27 mg/dL [facility] ECH echo transthoracicon ECH echo transthoracic [facility] [address] [place] [address] [place] [address] Echocardiogram Signed Patient: Karlene Vazquez MR#: [id number] : 1990 Acct:[id number] Age/Sex: 32 / F ADM Date: 11/30/22 Loc: Room: [address] [place] [address] Type: ADM INOo Attending Dr: Baljinder Polanco MD Ordering Provider: Baljinder Polanco MD Date of Service: 12/01/22 ECH/ECH echo transthoracic: chest pain, abnormal troponins Copies to: MD Hammad Ambrose MD, [facility] Height: 69 in Weight: 197 lb Performed [...] 12/01/22 1120 Signed By: Hammad Adam MD, [facility] 12/01/22 1643 Normal [facility] Glucose mean value [Mass/vol ume] in Blood Estimated from glycated hemoglobinOrdered By: Baljinder Polanco on 12-01-2022 Average glucose Estimated from glycated hemoglobin (Bld) [Mass/Vol] 120 mg/dL [facility] Hemoglobin A1c percentageOrd ered By: Baljinder Polanco on 12-01-2022 HbA1c (Bld) [Mass fraction] 5.8 % 4.3-5.6 [facility] Comment on above: Increased risk for d iabetes: 5.7 - 6.4diabetes: >6.4glycemic control for adults with diabetes: <7.0 Lipid Panelon 12-01-2022 Cholesterol [Mass/Vol] 214 mg/dL High 140-200 [facility] Comment on above: Result Comment: Chol less than 200 mg/dl low risk Chol 201-239 mg/dl borderline risk Chol 240 mg/dl and greater high risk Performed By: #### L IPID, HS TROP, A1C WTH eA ####[address] [address] [facility] Cholesterol in HDL [Mass/Vol] 54 mg/dL Normal 23-92 [facility] Comment on above: Result Comment: HDL CHOL ATP-III CLASSIFICATION Cardiovascular Risk HDL > or equal to 60 mg/dL LOW HDL < 40 mg/dL HIGH Performed By: #### L IPID, HS TROP, A1C WTH eA ####[facility] [place] [address] [facility] Cholesterol.total/Chol esterol in HDL [Mass ratio] 4.0 {ratio} Normal <5.0 [facility] Comment on above: Result Comment: PERF ORMED BY: [facility] [address] [place] [id number] PATHOLOGIST LABORER CHEMICAL PROCESSING ISAIAS DE LA CRUZ M.D. Performed By: #### L IPID, HS TROP, A1C WTH eA ####[facility] [place] [address] [facility] LDL Cholesterol,Calculated 132 mg/dL High 0-100 [facility] Comment on above: Result Comment: LDL ATP III CLASSIFICATION LDL less than 100 mg/dL Optimal LDL 100-129 mg/dL Near or above optimal LDL 130-159 mg/dL Borderline high LDL 160-189 mg/dL High LDL greater than 189 mg/dL Very high Performed By: #### L IPID, HS TROP, A1C WT eA ####[facility] [id number] [place] [id number] [facility] Triglyceride w/Reflex 139 mg/dL Normal 0-149 [facility] Comment on above: Result Comment: TRIG ATP III CLASSIFICATION TRIG less than 150 mg/dL Normal TRIG 150-199 mg/dL Borderline high TRIG 200-500 mg/dL High TRIG greater than 500 mg/dL Very high Standard traceable to the Center for Disease Conrtrol and Prevention ([facility]) test method. Performed By: #### L IPID, HS TROP, A1C WT eA ####[facility] [id number] [place] [id number] [facility] VLDL CHOLESTEROL 27 mg/dL Normal [facility] Comment on above: Performed By: #### L IPID, HS TROP, A1C [facility] eA ####[facility] [id number] [place] [id number] [facility] Serum or plasma high density lipoprotein (HDL) cholesterol measurementOrdered By: Baljinder Polanco on 12-01-2022 Cholesterol in HDL [Mass/Vol] 54 mg/dL 23-92 [facility] Comment on above: HDL CHOL ATP-III CLA SSIFICATION Cardiovascular RiskHDL > or equal to 60 mg/dL LOWHDL < 40 mg/dL HIGH Serum or plasma total choles terol/high density lipoprotein (HDL) cholesterol mass ratOrdered By: Baljinder Polanco on 12-01-2022 Cholesterol.total/Chol esterol in HDL [Mass ratio] 4.0 {ratio} <5.0 [facility] Triglyceride [Mass/volume] i n Serum or PlasmaOrdered By: Baljinder Polanco on 12-01-2022 Triglyceride [Mass/Vol] 139 mg/dL 0-149 [facility] Comment on above: TRIG ATP III CLASSIF ICATIONTRIG less than 150 mg/dL NormalTRIG 150-199 mg/dL Borderline highTRIG 200-500 mg/dL High TRIG greater than 500 mg/dL Very highStandard traceable to the Center for Disease Conrtrol and Prevention (CDC) test method. Troponin I High Sensitivityo n 12-01-2022 Troponin I High Sensitivity 27.1 pg/mL High 0.0-15.0 [facility] Comment on above: Result Comment: PERF ORMED BY: [facility] [address] [facility] [place] [address] PATHOLOGIST LABORER CHEMICAL PROCESSING ISAIAS DE LA CRUZ M.D. Performed By: #### L IPID, HS TROP, A1C WTH eA ####[facility] [id number] [place], [place] [address] Troponin I.cardiac [Mass/vol ume] in Serum or Plasma by Detection limit <= 0.01 ng/Ordered By: Baljinder Polanco on 12-01-2022 Troponin I.cardiac DL <= 0.01 ng/mL [Mass/Vol] 27.1 pg/mL 0.0-15.0 [facility] Activated partial thrombopla stin time (aPTT) in platelet poor plasma by coagulation aOrdered By: Marcio Steven on 11-30-2022 aPTT Coag (PPP) [Time] 32.4 s 25.1-36.5 [facility] Comment on above: A hematocrit value g reater than 55% may lead to inaccurate results in coagulation testing. Patients having hematocrit values >55% require a special collection tube for coagulation studies. Please contact the laboratory at [phone] for redraw instructions. Alanine aminotransferase [En zymatic activity/volume] in Serum or PlasmaOrdered By: Marcio Steven on 11-30-2022 ALT [Catalytic activity/Vol] 16 U/L Normal 7-52 [facility] Comment on above: Performed By: #### U A #### [facility] [address] [place] [id number] [facility] Albumin [Mass/volume] in Ser um or Plasma by Bromocresol green (BCG) dye binding methoOrdered By: Marcio Steven on 11-30-2022 Albumin BCG dye [Mass/Vol] 4.4 g/dL 3.5-5.7 [facility] Alkaline phosphatase [Enzyma tic activity/volume] in Serum or PlasmaOrdered By: Marcio Steven on 11-30-2022 ALP [Catalytic activity/Vol] 73 U/L Normal 34-104 [facility] Comment on above: Performed By: #### U A #### [address] Aspartate aminotransferase [ Enzymatic activity/volume] in Serum or PlasmaOrdered By: Marcio Steven on 11-30-2022 AST [Catalytic activity/Vol] 11 U/L Low 13-39 [facility] Comment on above: Performed By: #### U A #### [address] Automated basophil %Ordered By: Marcio Steven on 11-30-2022 Basophils/100 WBC (Bld) 0.8 % Normal . [facility] Comment on above: Performed By: #### B RUBBER EXTRUSION MACHINE OPERATOR, CK, CBC, HS TROP #### [address] Automated basophil countOrde red By: Marcio Steven on 11-30-2022 Basophils (Bld) [#/Vol] 0.1 10*3/uL Normal 0.0-0.2 [facility] Comment on above: Result Comment: PERF ORMED BY: [place] [address] PATHOLOGIST LABORER CHEMICAL PROCESSING ISAIAS DE LA CRUZ M.D. Performed By: #### B RUBBER EXTRUSION MACHINE OPERATOR, CK, CBC, HS TROP #### [address] Automated blood monocyte cou ntOrdered By: Marcio Steven on 11-30-2022 Monocytes (Bld) [#/Vol] 0.6 10*3/uL Normal 0.0-0.8 [facility] Comment on above: Performed By: #### B RUBBER EXTRUSION MACHINE OPERATOR, CK, CBC, HS TROP #### [address] Automated eosinophil %Ordere d By: Marcio Steven on 11-30-2022 Eosinophils/100 WBC (Bld) 0.9 % Normal . [facility] Comment on above: Performed By: #### B RUBBER EXTRUSION MACHINE OPERATOR, CK, CBC, HS TROP #### [address] Automated eosinophil countOr dered By: Marcio Steven on 11-30-2022 Eosinophils (Bld) [#/Vol] 0.1 10*3/uL Normal 0.0-0.45 [facility] Comment on above: Performed By: #### B RUBBER EXTRUSION MACHINE OPERATOR, CK, CBC, HS TROP #### [address] Automated monocyte %Ordered By: Marcio Steven on 11-30-2022 Monocytes/100 WBC (Bld) 6.8 % Normal . [facility] Comment on above: Performed By: #### B RUBBER EXTRUSION MACHINE OPERATOR, CK, CBC, HS TROP #### [address] Automated neutrophil %Ordere d By: Marcio Steven on 11-30-2022 Neutrophils/100 WBC (Bld) 59.2 % Normal . [facility] Comment on above: Performed By: #### B RUBBER EXTRUSION MACHINE OPERATOR, CK, CBC, HS TROP #### [address] BNP ser/plasOrdered By: Jack Steven on 11-30-2022 Natriuretic peptide B (Bld) [Mass/Vol] 13.0 pg/mL Normal 5-100 [facility] Comment on above: Result Comment: PERF ORMED BY: [place] [address] PATHOLOGIST LABORER CHEMICAL PROCESSING ISAIAS DE LA CRUZ M.D. Performed By: #### B RUBBER EXTRUSION MACHINE OPERATOR, CK, CBC, HS TROP #### [address] Basic Metabolic Panelon 11-12 Creatinine Clr Calc Pharmacy 114.08 Normal [facility] Comment on above: Performed By: #### U A #### [address] Calcium [Mass/Vol] 9.7094513 mg/dL Normal 8.6-10 .3 mg/dL [facility] Other CO2 [Moles/Vol] 23.78942549 mmol/L Normal 21.0-3 1.0 mmol/L [facility] Other Creatinine [Mass/Vol] 0.64413092 mg/dL Normal 0. 60-1.20 mg/dL [facility] [employer] Other GFR/1.73 sq M.predicted MDRD (S/P/Bld) [Vol rate/Area] mL/min/{1.73_m2} Normal [facility] Other Comment on above: Performed By: #### U A #### [facility] [address] [place] [address] [place] Potassium [Moles/Vol] 4.30955472 mmol/L Normal 3 .5-5.1 mmol/L [facility] [employer] Other Basic Metabolic PanelOrdered By: Marcio Steven on 11-30-2022 Chloride [Moles/Vol] 104 mmol/L Normal 98-107 [facility] Comment on above: Performed By: #### U A #### [facility] [address] [place] [id number] [place] Glucose [Mass/Vol] 77 mg/dL Normal 70-100 [facility] Comment on above: ADA recommended refe rence rangeRandom Glucose Reference Range is dependent on time and content of last meal. Glucose of more than 200 mg/dL in a nonstressed, ambulatory subject supports the diagnosis of Diabetes Mellitus. Result Comment: [place] Glucose Reference Range is dependent on time and content of last meal. Glucose of more than 200 mg/dL in a nonstressed, ambulatory subject supports the diagnosis of Diabetes Mellitus. ADA recommended reference range Performed By: #### U A #### [facility] [address] [place] [address] [place] Sodium [Moles/Vol] 138 mmol/L Normal 136-145 [facility] Comment on above: Performed By: #### U A #### [facility] [address] [place] [address] [place] Urea nitrogen [Mass/Vol] 9 mg/dL Normal 7-25 [facility] Comment on above: Performed By: #### U A #### [facility] [address] [place] [address] Bilirubin Test strip Ql (U)O rdered By: Marcio Steven on 11-30-2022 Bilirubin Ql (U) Negative Negative [facility] Bilirubin.direct [Mass/volum e] in Serum or PlasmaOrdered By: Marcio Steven on 11-30-2022 Bilirubin.direct [Mass/Vol] 0.00 mg/dL 0.03-0.18 [facility] Comment on above: If the DBIL is less than 0.1, IBIL is not able to becalculated. Bilirubin.total [Mass/volume ] in Serum or PlasmaOrdered By: Marcio Steven on 11-30-2022 Bilirubin [Mass/Vol] 0.9 mg/dL Normal 0.3-1.0 [facility] Comment on above: Performed By: #### U A #### [address] BioFire Not Detectedon 11-30 BioFire Not Detected Not detected Normal Not Detecte [facility] Comment on above: Result Comment: This is a duplicate RP2.1 COVID (PCR) result to be used for statistical tracking purpose only. PERFORMED BY: [place] [address] PATHOLOGIST LABORER CHEMICAL PROCESSING ISAIAS DE LA CRUZ M.D. Performed By: #### R ZULEMA PANEL UPP., BIOFIRECOVNOTDE #### [address] COVID-19 Detected/Not Detect edOrdered By: Marcio Steven on 11-30-2022 SARS-CoV-2 (COVID-19) RNA LEO+non-probe Ql (Nph) Not detected Not Detecte [facility] Comment on above: This is a duplicate RP2.1 COVID (PCR) result to be used for statistical tracking purpose only. Calcium [Mass/volume] in Ser um or PlasmaOrdered By: Marcio Steven on 11-30-2022 Calcium [Mass/Vol] 9.5 mg/dL Normal 8.6-10.3 [facility] Comment on above: Performed By: #### U A #### [address] Carbon dioxide, total [Moles /volume] in Serum or PlasmaOrdered By: Marcio Steven on 11-30-2022 CO2 [Moles/Vol] 23.9 mmol/L Normal 21.0-31.0 [facility] Comment on above: Performed By: #### U A #### [address] Color Auto (U)Ordered By: Baljeet Steven on 11-30-2022 Color (U) Yellow Yellow [facility] Complete Blood Count Auto Di ffon 11-30-2022 Mean Corpuscular HGB Conc 33.3 g/dL Normal 32.0-35.0 [facility] Comment on above: Performed By: #### B RUBBER EXTRUSION MACHINE OPERATOR, CK, CBC, HS TROP #### [address] Monocytes/100 WBC (Bld) 19.22 % Normal 0.00-20.00 [facility] Comment on above: Performed By: #### B RUBBER EXTRUSION MACHINE OPERATOR, CK, CBC, HS TROP #### [address] NRBC% 0.2 /100{WBC} Normal 0-0.5 [facility] Comment on above: Performed By: #### B RUBBER EXTRUSION MACHINE OPERATOR, CK, CBC, HS TROP #### [address] Basophils (Bld) [#/Vol] 0.126927537 10*3/uL Normal 0.0-0.2 10*3/uL [facility] Other Basophils/100 WBC (Bld) 0.800 % . % [facility] Other Eosinophils (Bld) [#/Vol] 0.003346994 10*3/uL Normal 0.0-0.45 10*3/uL [facility] Other Eosinophils/100 WBC (Bld) 0.900 % . % [facility] Other Erythrocyte distribution width (RBC) [Ratio] 14.300 % Normal 11.9-15.3 % [facility] Other Hematocrit (Bld) [Volume fraction] 41.000 % Normal 34.0-46.4 % [facility] Other Hemoglobin (Bld) [Mass/Vol] 13.591871 g/dL Normal 11.8-15.4 g/dL [facility] Other Lymphocytes (Bld) [#/Vol] 2.888064948 10*3/uL Normal 1.00-4.8 10*3/uL [facility] Other Lymphocytes/100 WBC (Bld) 32.300 % . % [facility] Other MCH (RBC) [Entitic mass] 27.0000 pg Normal 24.7-34.3 pg [facility] Other MCV (RBC) [Entitic vol] 81.0000 fL Normal 80-100 fL [facility] Other Monocytes (Bld) [#/Vol] 0.490352608 10*3/uL Normal 0.0-0.8 10*3/uL [facility] Other Monocytes/100 WBC (Bld) 6.800 % . % [facility] Other Neutrophils (Bld) [#/Vol] 4.378318400 10*3/uL Normal 1.8-7.7 10*3/uL [facility] Other Neutrophils/100 WBC (Bld) 59.200 % . % [facility] Other Platelet mean volume (Bld) [Entitic vol] 7.2000 fL Normal 6.3-10.7 fL [facility] Other WBC (Bld) [#/Vol] 8.785834435 10*3/uL Normal 3.8 -11.6 10*3/uL [facility] Other Complete Blood Count Auto Diff 8.2 10*3/uL Normal 3.8-11.6 10*3/uL [facility] Other Complete Blood Count Auto Diff 33.3 g/dL Normal 32.0-35.0 g/dL [facility] Other Complete Blood Count Auto Diff 0.2 /100{WBC} Normal 0-0.5 /100{WBC} [facility] Other Complete Blood Count Auto Di ffOrdered By: Marcio Steven on 11-30-2022 Platelets (Bld) [#/Vol] 368 10*3/uL Normal 150-450 [facility] Comment on above: Performed By: #### B RUBBER EXTRUSION MACHINE OPERATOR, CK, CBC, HS TROP #### [address] RBC (Bld) [#/Vol] 5.06 10*6/uL High 3.60-5.00 [facility] Comment on above: Performed By: #### B RUBBER EXTRUSION MACHINE OPERATOR, CK, CBC, HS TROP #### [facility] [address] [place] [address] [place] Creatine kinase [Enzymatic a ctivity/volume] in Serum or PlasmaOrdered By: Marcio Steven on 11-30-2022 CK [Catalytic activity/Vol] 18 U/L Low 30-223 [facility] Comment on above: Performed By: #### B RUBBER EXTRUSION MACHINE OPERATOR, CK, CBC, HS TROP #### [place] [address] [place] Creatinine [Mass/volume] in Serum or PlasmaOrdered By: Marcio Steven on 11-30-2022 Creatinine [Mass/Vol] 0.83 mg/dL Normal 0.60-1.20 [facility] Comment on above: Performed By: #### U A #### [place] [address] [place] D-Dimer High Sensitivityon 0 11-30-2022 D-Dimer [...] coagulation studies. Please contact the laboratory at [phone] for redraw instructions. PERFORMED BY: [place] [address] PATHOLOGIST LABORER CHEMICAL PROCESSING ISAIAS DE LA CRUZ M.D. Performed By: #### U A #### [address] ECG 12 lead ECGon 11-30-2022 ECG 12 lead ECG [facility] [place] [address] [place] [address] Electrocardiograph Report Signed Patient: Karlene Vazquez MR#: [id number] : 1990 Acct:[id number] Age/Sex: 32 / F ADM Date: 11/30/22 Loc: ER Room: Type: [facility] ER Attending Dr: Ordering Provider: Marcio Steven [...] ECGs available Confirmed by Marcio Steven DO ([id number]) on 11/30/2022 3:20:08 PM Referred By: Electronically Signed By:Marcio Tenisha DO Transcribed By: MUS Signed By Marcio Steven DO 3 1520 Normal [facility] Erythrocyte distribution wid th [Ratio] by Automated countOrdered By: Marcio Steven on 11-30-2022 Erythrocyte distribution width (RBC) [Ratio] 14.3 % Normal 11.9-15.3 [facility] Comment on above: Performed By: #### B RUBBER EXTRUSION MACHINE OPERATOR, CK, CBC, HS TROP #### [facility] [address] Fibrin D-dimer [Presence] in Platelet poor plasma by Latex agglutinationOrdered By: Marcio Steven on 11-30-2022 Fibrin D-dimer LA Ql (PPP) < 200 ng/mL 0-243 [facility] Comment on above: The reference range [...] coagulation studies. Please contact the laboratory at [phone] for redraw instructions. Free T4 (Free Thyroxine)on 0 11-30-2022 Free T4 [Mass/Vol] 1.43795839 ng/dL High 0.61- 1.12 ng/dL [facility] Other Glucose Glucometer (BldC) [M ass/Vol]Ordered By: Baljinder Polanco on 11-30-2022 Glucose [Mass/Vol] 100 mg/dL [facility] Comment on above: Random Glucose Refer ence Range is dependent on time and content of last meal. Glucose of more than 200 mg/dL in a nonstressed, ambulatory subject supports the diagnosis of Diabetes Mellitus. Glucose Poct Glucometerson 0 11-30-2022 Glucose [Mass/Vol] 100 mg/dL Normal [facility] Comment on above: Result Comment: [facility] Glucose Reference Range is dependent on time and content of last meal. Glucose of more than 200 mg/dL in a nonstressed, ambulatory subject supports the diagnosis of Diabetes Mellitus. PERFORMED BY: [place] [address] PATHOLOGIST LABORER CHEMICAL PROCESSING ISAIAS DE LA CRUZ M.D. Performed By: #### U A #### [address] Hematocrit [Volume Fraction] of Blood by Automated countOrdered By: Marcio Steven on 11-30-2022 Hematocrit (Bld) [Volume fraction] 41.0 % Normal 34.0-46.4 [facility] Comment on above: Performed By: #### B RUBBER EXTRUSION MACHINE OPERATOR, CK, CBC, HS TROP #### [address] Hemoglobin [Mass/volume] in BloodOrdered By: Marcio Steven on 11-30-2022 Hemoglobin (Bld) [Mass/Vol] 13.7 g/dL Normal 11.8-15.4 [facility] Comment on above: Performed By: #### B RUBBER EXTRUSION MACHINE OPERATOR, CK, CBC, HS TROP #### [address] Hepatic Panelon 11-30-2022 Albumin [Mass/Vol] 4.4 g/dL Normal 3.5-5.7 [facility] Comment on above: Performed By: #### U A #### [address] Bilirubin,Indirect 0.9 mg/dL Normal [facility] Comment on above: Performed By: #### U A #### [address] Bilirubin.indirect [Mass/Vol] 0.00 mg/dL Low 0.03-0.18 [facility] Comment on above: Result Comment: If t he DBIL is less than 0.1, IBIL is not able to be calculated. Performed By: #### U A #### [facility] [address] [place] [address] INR in Platelet poor plasma by Coagulation assayOrdered By: Marcio Steven on 11-30-2022 INR Coag (PPP) [Relative time] 1.1 {INR} [facility] Comment on above: INR Therapeutic Rang [...] on 11-30-2022 Ketones (U) [Mass/Vol] Trace Negative [facility] Leukocytes [#/volume] correc jocelynn for nucleated erythrocytes in Blood by Automated counOrdered By: Marcio Steven on 11-30-2022 WBC corrected for nucl RBC Auto (Bld) [#/Vol] 8.2 10*3/uL 3.8-11.6 [facility] Leukocytes [#/volume] in Blo od by Automated countOrdered By: Marcio Steven on 11-30-2022 WBC (Bld) [#/Vol] 8.2 10*3/uL Normal 3.8-11.6 [facility] Comment on above: Performed By: #### B RUBBER EXTRUSION MACHINE OPERATOR, CK, CBC, HS TROP #### [facility] [address] [place] [address] [place] Lymphocytes [#/volume] in Bl ood by Automated countOrdered By: Marcio Steven on 11-30-2022 Lymphocytes (Bld) [#/Vol] 2.7 10*3/uL Normal 1.00-4.8 [facility] Comment on above: Performed By: #### B RUBBER EXTRUSION MACHINE OPERATOR, CK, CBC, HS TROP #### [facility] [address] [place] [address] [place] Lymphocytes/100 leukocytes i n Blood by Automated countOrdered By: Marcio Steven on 11-30-2022 Lymphocytes/100 WBC (Bld) 32.3 % Normal . [facility] Comment on above: Performed By: #### B RUBBER EXTRUSION MACHINE OPERATOR, CK, CBC, HS TROP #### [facility] [address] MCH [Entitic mass] by Automa jocelynn countOrdered By: Marcio Steven on 11-30-2022 MCH (RBC) [Entitic mass] 27.0 pg Normal 24.7-34.3 [facility] Comment on above: Performed By: #### B RUBBER EXTRUSION MACHINE OPERATOR, CK, CBC, HS TROP #### [address] MCHC Auto (RBC) [Mass/Vol]Or dered By: Marcio Steven on 11-30-2022 MCHC (RBC) [Mass/Vol] 33.3 g/dL 32.0-35.0 [facility] MCV [Entitic volume] by Auto mated countOrdered By: Marcio Steven on 11-30-2022 MCV (RBC) [Entitic vol] 81.0 fL Normal 80-100 [facility] Comment on above: Performed By: #### B RUBBER EXTRUSION MACHINE OPERATOR, CK, CBC, HS TROP #### [address] Magnesium [Mass/volume] in S abdifatah or PlasmaOrdered By: Marcio Steven on 11-30-2022 Magnesium [Mass/Vol] 1.9 mg/dL Normal 1.9-2.7 [facility] Comment on above: Performed By: #### U A #### [address] Monocyte distribution width [Entitic volume] in Blood by AutomatedOrdered By: Marcio Steven on 11-30-2022 Monocyte distribution width Auto (Bld) [Entitic vol] 19.22 % 0.00-20.00 [facility] Neutrophils [#/volume] in Bl ood by Automated countOrdered By: Marcio Steven on 11-30-2022 Neutrophils (Bld) [#/Vol] 4.9 10*3/uL Normal 1.8-7.7 [facility] Comment on above: Performed By: #### B RUBBER EXTRUSION MACHINE OPERATOR, CK, CBC, HS TROP #### [facility] [address] Nitrite Test strip Ql (U)Ord ered By: Marcio Steven on 11-30-2022 Nitrite Ql (U) Negative Negative [facility] No Panel InformationOrdered By: Marcio Steven on 11-30-2022 Estimated GFR (CKD-EPI) > 60.0 mL/Min [facility] Creatinine Clearance (Chem 114.08 [facility] Nucleated erythrocytes [Pres ence] in Blood by Automated countOrdered By: Marcio Steven on 11-30-2022 Nucleated RBC Auto Ql (Bld) 0.2 /100{WBC} 0-0.5 [facility] Partial Thromboplastin Timeo n 11-30-2022 aPTT Coag (Bld) [Time] 32.4 s Normal 25.1-36.5 [facility] Comment on above: Result Comment: A he matocrit value greater than 55% may lead to inaccurate results in coagulation testing. Patients having hematocrit values >55% require a special collection tube for coagulation studies. Please contact the laboratory at [phone] for redraw instructions. Performed By: #### U A #### [address] Platelet mean volume [Entiti c volume] in Blood by Automated countOrdered By: Marcio Steven on 11-30-2022 Platelet mean volume (Bld) [Entitic vol] 7.2 fL Normal 6.3-10.7 [facility] Comment on above: Performed By: #### B RUBBER EXTRUSION MACHINE OPERATOR, CK, CBC, HS TROP #### [facility] [address] Potassium [Moles/volume] in Serum or PlasmaOrdered By: Marcio Steven on 11-30-2022 Potassium [Moles/Vol] 4.1 mmol/L Normal 3.5-5.1 [facility] Comment on above: Performed By: #### U A #### [facility] [address] Protein Auto test strip (U) [Mass/Vol]Ordered By: Marcio Steven on 11-30-2022 Protein (U) [Mass/Vol] Negative Negative [facility] Protein [Mass/volume] in Ser um or PlasmaOrdered By: Marcio Steven on 11-30-2022 Protein [Mass/Vol] 7.6 g/dL Normal 6.4-8.9 [facility] Comment on above: Performed By: #### U A #### [facility] [address] [place] [id number] [facility] Prothrombin Time INRon 11-30 INR Coag (PPP) [Relative time] 1.1 {INR} Normal [facility] Comment on above: Result Comment: INR [...] 4.5 Performed By: #### U A #### [facility] [address] [place] [address] [facility] PT Coag (PPP) [Time] 12.5 s Normal 9.0-12.9 [facility] Comment on above: Result Comment: A he matocrit value greater than 55% may lead to inaccurate results in coagulation testing. Patients having hematocrit values >55% require a special collection tube for coagulation studies. Please contact the laboratory at [phone] for redraw instructions. Performed By: #### U A #### [facility] [address] [place] [address] [facility] Prothrombin time (PT)Ordered By: Marcio Steven on 11-30-2022 PT Coag (PPP) [Time] 12.5 s 9.0-12.9 [facility] Comment on above: A hematocrit value g reater than 55% may lead to inaccurate results in coagulation testing. Patients having hematocrit values >55% require a special collection tube for coagulation studies. Please contact the laboratory at [phone] for redraw instructions. Respiratory (Upper) Panel, P [...] A H3 Blank Space ---- PERFORMED BY: [place] [address] PATHOLOGIST LABORER CHEMICAL PROCESSING ISAIAS DE LA CRUZ M.D. [facility] Comment on above: Performed By: #### R ZULEMA PANEL UPP., BIOFIRECOVNOTDE #### [facility] [address] Respiratory pathogens DNA an d RNA panel - Nasopharynx by LEO with non-probe detectionOrdered By: Marcio Steven on 11-30-2022 Respiratory pathogens DNA and RNA panel LEO+non-probe (Nph) [facility] Serum globulin measurement b y calculation (mass/volume)Ordered By: Marcio Steven on 11-30-2022 Globulin (S) [Mass/Vol] 3.2 g/dL Normal [facility] Comment on above: Performed By: #### U A #### [facility] [address] [place] [address] Serum or plasma albumin/glob ulin mass ratioOrdered By: Marcio Steven on 11-30-2022 Albumin/Globulin [Mass ratio] 1.4 {ratio} Normal [facility] Comment on above: Performed By: #### U A #### [facility] [address] [place] [address] Serum or plasma anion gap de terminationOrdered By: Marcio Steven on 11-30-2022 Anion gap [Moles/Vol] 14.2 mmol/L Normal 6.0-15.0 [facility] Comment on above: Performed By: #### U A #### [address] Serum or plasma non-glucuron idated bilirubin measurement (mass/volume)Ordered By: Marcio Steven on 11-30-2022 Bilirubin.indirect [Mass/Vol] 0.9 mg/dL [facility] Specific gravity Auto test s trip (U) [Rel density]Ordered By: Marcio Steven on 11-30-2022 Specific gravity (U) [Rel density] 1.013 1.001-1.03 0 [facility] Thyroid Stimulating Hormoneo n 11-30-2022 TSH Qn 0.68236680133 m[IU]/L Low 0.45-5 .33 u[iU]/mL Rec[facility] Other Thyrotropin [Units/volume] i n Serum or PlasmaOrdered By: Marcio Steven on 11-30-2022 TSH Qn 0.03 m[IU]/L Low 0.45-5.33 [facility] Comment on above: Result Comment: PERF ORMED BY: [place] [address] PATHOLOGIST LABORER CHEMICAL PROCESSING ISAIAS DE LA CRUZ M.D. Performed By: #### U A #### [facility] [address] [place] [address] Thyroxine (T4) free [Mass/vo lume] in Serum or PlasmaOrdered By: Marcio Steven on 11-30-2022 Free T4 [Mass/Vol] 1.56 ng/dL High 0.61-1.12 [facility] Comment on above: Performed By: #### U A #### [facility] [address] Triiodothyronine (T3) Freeon 11-30-2022 Triiodothyronine (T3) Free 3.89 pg/mL Normal 2.50-3.90 [facility] Comment on above: Result Comment: PERF ORMED BY: [place] [address] PATHOLOGIST LABORER CHEMICAL PROCESSING ISAIAS DE LA CRUZ M.D. Performed By: #### P TT, MG, T3F, DDIMER, T4F, BMP, PT, TSH3, HEPATIC ####[facility] [address] [place] [address] Triiodothyronine (T3) Free [ Mass/volume] in Serum or PlasmaOrdered By: Marcio Steven on 11-30-2022 Free T3 [Mass/Vol] 3.89 pg/mL 2.50-3.90 [facility] Troponin I High Sensitivityo n 11-30-2022 Troponin I High Sensitivity 38.7 pg/mL High 0.0-15.0 [facility] Comment on above: Result Comment: PERF ORMED BY: [place] [address] PATHOLOGIST LABORER CHEMICAL PROCESSING ISAIAS DE LA CRUZ M.D. Performed By: #### U A #### [facility] [address] [place], [place] [id number] [place] US liveron 11-30-2022 US liver [facility] [place] [address] [place] [address] Ultrasound Report Signed Patient: Karlene Vazquez MR#: [id number] : 1990 Acct:[id number] Age/Sex: 32 / F ADM Date: 11/30/22 Loc: Room: [address] [place] [address] Type: ADM IN Attending Dr: Baljinder Polanco [...] Crow Ramos M.D.11/30/2022 5:27 PM Dictation Location: [place] [address] Tech: Ophelia Najera Transcribed By: TORITO 11/30/221726 Dictated By: Crow Ramos II, MD 11/30/221725 Signed By: 11/30/22 172 Normal [facility] Urinalysison 11-30-2022 Appearance (U) Clear Normal Clear [facility] Comment on above: Order Comment: Name Collection Type:: Clean-Voided Midstream Performed By: #### U A #### [facility] [address] [place] [address] [place] Bilirubin,Urine Negative Normal Negative [facility] Comment on above: Order Comment: Name Collection Type:: Clean-Voided Midstream Performed By: #### U A #### [facility] [address] [place] [id number] [place] Color (U) Yellow Normal Yellow [facility] Comment on above: Order Comment: Name Collection Type:: Clean-Voided Midstream Performed By: #### U A #### [facility] [address] [place] [id number] [place] Glucose Ql (U) Normal Normal Normal [facility] Comment on above: Order Comment: Name Collection Type:: Clean-Voided Midstream Performed By: #### U A #### [facility] [address] [place] [address] Ketones Ql (U) Trace High Negative [facility] Comment on above: Order Comment: Name Collection Type:: Clean-Voided Midstream Performed By: #### U A #### [address] Leukocyte esterase Test strip Ql (U) Negative Normal Negative [facility] Comment on above: Order Comment: Name Collection Type:: Clean-Voided Midstream Performed By: #### U A #### [address] Nitrite,Urine Negative Normal Negative [facility] Comment on above: Order Comment: Name Collection Type:: Clean-Voided Midstream Performed By: #### U A #### [address] Occult Blood,Urine Negative Normal Negative [facility] Comment on above: Order Comment: Name Collection Type:: Clean-Voided Midstream Result Comment: PERF ORMED BY: [place] [address] PATHOLOGIST LABORER CHEMICAL PROCESSING ISAIAS DE LA CRUZ M.D. Performed By: #### U A #### [place] [address] [place] pH (U) [pH] Normal 5.0-9.0 [facility] Comment on above: Order Comment: Name Collection Type:: Clean-Voided Midstream Performed By: #### U A #### [facility] [address] [place] [address] [place] Protein,Urine Negative Normal Negative [facility] Comment on above: Order Comment: Name Collection Type:: Clean-Voided Midstream Performed By: #### U A #### [place] [address] [place] Specificy [place],Urine 1.013 Normal 1.001-1.03 0 [facility] Comment on above: Order Comment: Name Collection Type:: Clean-Voided Midstream Performed By: #### U A #### [address] [place] [address] [facility] Urobilinogen,Urine Normal Normal Normal [facility] Comment on above: Order Comment: Name Collection Type:: Clean-Voided Midstream Performed By: #### U A #### [place] [id number] [facility] Urine clarity by refractomet ry automatedOrdered By: Marcio Steven on 11-30-2022 Clarity Refractometry automated (U) Clear Clear [facility] Urine glucose measurement by automated test strip (mass/volume)Ordered By: Marcio Steven on 11-30-2022 Glucose Auto test strip (U) [Mass/Vol] Normal mg/dL Normal [facility] Urine hemoglobin detection b y automated test stripOrdered By: Marcio Steven on 11-30-2022 Hemoglobin Auto test strip Ql (U) Negative Negative [facility] Urine leukocyte esterase det ection by automated test stripOrdered By: Marcio Steven on 11-30-2022 Leukocyte esterase Auto test strip Ql (U) Negative Negative [facility] Urobilinogen Auto test strip (U) [Mass/Vol]Ordered By: Marcio Steven on 11-30-2022 Urobilinogen (U) [Mass/Vol] Normal mg/dL Normal [facility] XR chest 1V portableon 11-30 XR chest 1V portable [facility] [place] [address] [place], [place] [id number] XRay Report Signed Patient: Karlene Vazquez MR#: [id number] : 1990 Acct:[id number] Age/Sex: 32 / F ADM Date: 11/30/22 Loc: ER Room: Type: [facility] ER Attending Dr: Copies to: Marcio Steven [...] Jovan Martin M.D.11/30/2022 1:58 PM Dictation Location: [place] [address] Transcribed By: [facility] 11/30/22 1358 Dictated By: Jovan Martin DO 11/30/22 1351 Signed By: 11/30/22 1358 Normal [facility] pH Auto test strip (U)Ordere d By: Marcio Steven on 11-30-2022 pH (U) [pH] 5.0-9.0 [facility] CORTISOL FREE, SERUMon 06-17 Cortisol, Free Dialysis, LCMS 0.649 ug/dL Normal [facility] Comment on above: Result Comment: Thes e tests were developed and their performance characteristics determined by [employer]. They have not been cleared or approved by the Food and Drug Administration. Reference Range: 8 AM 0.10 - 1.20 4 PM 0.042 - 0.872 Performed By: #### R [id number] #### [facility] [address] [place] [address] Dr. Dimple Parsons CBC AUTO DIFFon 06-16-2022 BASO # 0.1 103/ul Normal 0.0-0.1 [facility] Comment on above: Performed By: #### R [id number] #### [facility] [address] [place] [address] Dr. Dimple Parsons Basophils/100 WBC (Bld) 0.6 % Normal 0.2-2.0 [facility] Comment on above: Performed By: #### R [id number] #### [facility] [address] [place] [address] Dr. Dimple Parsons EO # 0.4 103/ul Normal 0.0-0.7 [facility] Comment on above: Performed By: #### R [id number] #### [facility] [address] [place] [address] Dr. Dimple Parsons Eosinophils/100 WBC (Bld) 4.0 % Normal 0.9-7.0 [facility] Comment on above: Performed By: #### R [id number] #### [facility] [address] [place] [address] Dr. Dimple Parsons Erythrocyte distribution width (RBC) [Ratio] 13.8 % Normal 11.0-15.0 [facility] Comment on above: Performed By: #### R [id number] #### [facility] [address] [place] [address] Dr. Dimple Parsons Hematocrit (Bld) [Volume fraction] 39.8 % Normal 36.0-48.0 [facility] Comment on above: Performed By: #### R [id number] #### [facility] [address] [place] [address] Dr. Dimple Parsons Hemoglobin (Bld) [Mass/Vol] 12.9 g/dL Normal 12.0-16.0 [facility] Comment on above: Performed By: #### R [id number] #### [facility] [address] [place] [address] Dr. Dimple Parsons IG # 0.02 10e3/ul Normal 0.00-0.03 [facility] Comment on above: Performed By: #### R [id number] #### [facility] [address] [place] [address] Dr. Dimple Parsons IG % 0.2 % Normal 0.0-0.5 [facility] Comment on above: Performed By: #### R [id number] #### [facility] [address] [place] [address] Dr. Dimple Parsons LYMPH # 3.1 103/ul Normal 1.2-3.8 [facility] Comment on above: Performed By: #### R [id number] #### [facility] [address] [place] [address] Dr. Dimple Parsons Lymphocytes/100 WBC (Bld) 33.5 % Normal 20.5-60.0 [facility] Comment on above: Performed By: #### R [id number] #### [facility] [address] [place] [address] Dr. Dimple Parsons MANUAL DIFF REQ NO Normal [facility] Comment on above: Performed By: #### R [id number] #### [facility] [address] [place] [address] Dr. Dimple Parsons MCH (RBC) [Entitic mass] 26.1 pg Critically low 26.7-34.0 [facility] Comment on above: Performed By: #### R [id number] #### [facility] [address] [place] [address] Dr. Dimple Parsons MCHC (RBC) [Mass/Vol] 32.4 g/dL Normal 29.9-35.2 [facility] Comment on above: Performed By: #### R [id number] #### [facility] [address] [place] [address] Dr. Dimple Parsons MCV (RBC) [Entitic vol] 80.4 fL Critically low 81.0-99.0 [facility] Comment on above: Performed By: #### R [id number] #### [facility] [address] [place] [address] Dr. Dimple Parsons MONO # 0.5 103/ul Normal 0.3-0.8 [facility] Comment on above: Performed By: #### R [id number] #### [facility] [address] [place] [address] Dr. Dimple Parsons Monocytes/100 WBC (Bld) 5.2 % Normal 1.7-12.0 [facility] Comment on above: Performed By: #### R [id number] #### [facility] [address] [place] [address] Dr. Dimple Parsons NEUT # 5.2 103/ul Normal 1.4-6.5 [facility] Comment on above: Performed By: #### R [id number] #### [facility] [address] [place] [address] Dr. Dimple Parsons Neutrophils/100 WBC (Bld) 56.5 % Normal 43.0-75.0 [facility] Comment on above: Performed By: #### R [id number] #### [facility] [address] [place] [address] Dr. Dimple Parsons Platelet mean volume (Bld) [Entitic vol] 8.7 fL Critically low 9.5-13.5 [facility] Comment on above: Performed By: #### R [id number] #### [facility] [address] [place] [address] Dr. Dimple Parsons PLT 376 103/ul Normal 150-450 [facility] Comment on above: Performed By: #### R [id number] #### [facility] [address] [place] [address] Dr. Dimple Parsons RBC 4.95 106/ul Normal 4.20-5.40 [facility] Comment on above: Performed By: #### R [id number] #### [facility] [address] [place] [address] Dr. Dimple Parsons WBC 9.3 103/ul Normal 4.0-11.0 [facility] Comment on above: Performed By: #### R [id number] #### [facility] [address] [place] [address] Dr. Dimple Parsons TESTOSTERONE, FREE,DIRECT, T OTALon 06-10-2022 Free Testosterone(Direct) 1.6 pg/mL Normal 0.0-4.2 [facility] Comment on above: Result Comment: Perf ormed at: BN Performed By: #### C BC #### [facility] [address] [place] [address] Dr. Dimple Parsons Testosterone [Mass/Vol] 22 ng/dL Normal 8-60 [facility] Comment on above: Result Comment: Perf ormed at: CB Performed By: #### C BC #### [facility] [address] [place] [address] Dr. Dimple Parsons ESTROGENon 2022 Estrogens, Total 413 pg/mL Normal [facility] Comment on above: Result Comment: Prep ubertal < 40 Female Cycle: 1-10 Days 16 - 328 11-20 Days 34 - 501 21-30 Days 48 - 350 Post-Menopausal 40 - 244 Performed By: #### D SURINDER #### [facility] [address] [place] [address] Dr. Dimple Parsons SEROTONINon 2022 Serotonin, Serum 20 ng/mL Critically low 31-207 [facility] Comment on above: Performed By: #### S EROTON #### [facility] [address] [place] [address] Dr. Dimple Parsons REVERSE T3on 06-08-2022 Reverse T3, Serum 15.6 ng/dL Normal 9.2-24.[address] [facility] Comment on above: Result Comment: This test was developed and its performance characteristics determined by [employer]. It has not been cleared or approved by the Food and Drug Administration. Performed By: #### R [id number] #### [facility] [address] [place] [address] Dr. Dimple Parsons VIT D 1 25 DIHYDROXYon 06-07 Calcitriol(1,25 di-OH Vit D) 12.2 pg/mL Critically low 24.8-81.5 [facility] Comment on above: Performed By: #### V [id number] #### [facility] [address] [place] [address] Dr. Dimple Parsons C-PEPTIDE, SERUMon C-Peptide, Serum 3.3 ng/mL Normal 1.1-4.4 [facility] Comment on above: Result Comment: C-Pe ptide reference interval is for fasting patients. Performed By: #### R EVRT3 #### [facility] [address] [place] [address] Dr. Dimple Parsnos DHEA-SULFATEon 06-05-2022 DHEA-Sulfate 154.0 ug/dL Normal 84.8-378.0 [facility] Comment on above: Performed By: #### D HEASUL #### [facility] [address] [place] [address] Dr. Dimple Parsons ESTRADIOLon 06-05-2022 Estradiol 117.0 pg/mL Normal [facility] Comment on above: Result Comment: Adul t Female: Follicular phase 12.5 - 166.0 Ovulation phase 85.8 - 498.0 Luteal phase 43.8 - 211.0 Postmenopausal <6.0 - 54.7 1st trimester 215.0 - >4300.0 Kye ECLIA methodology Performed By: #### R EVRT3 #### [facility] [address] [place] [address] Dr. Dimple Parsons INSULINon 06-05-2022 Insulin 13.1 uIU/mL Normal 2.6-24.9 [facility] Comment on above: Performed By: #### C BC #### [facility] [address] [place] [address] Dr. Dimple Parsons PROGESTERONEon 06-05-2022 Progesterone 4.8 ng/mL Normal [facility] Comment on above: Result Comment: Foll icular phase 0.1 - 0.9 Luteal phase 1.8 - 23.9 Ovulation phase 0.1 - 12.0 First trimester 11.0 - 44.3 Second trimester 25.4 - 83.3 Third trimester 58.7 - 214.0 Postmenopausal 0.0 - 0.1 Performed By: #### Inder CADENA #### [facility] [address] [place] [address] Dr. Dimple Parsons SEX HORMONE-BINDING GLOBULIN on 06-05-2022 Sex Horm Binding Glob, Serum 40.7 nmol/L Normal 24.6-122.0 [facility] Comment on above: Performed By: #### Jocelyne BC #### [facility] [address] [place] [address] Dr. Dimple Parsons T3, TOTAL (TRIIODOTHYRONINE) on 06-05-2022 T3, TOTAL 89 ng/dL Normal 71-180 [facility] Comment on above: Performed By: #### Rob EVRT3 #### [facility] [address] [place] [address] Dr. Dimple Parsons THYROID PEROXIDASE ABon 05-13 Thyroid Peroxidase (TPO) Ab 12 IU/mL Normal 0-34 [facility] Comment on above: Performed By: ###Rick CADENA #### [facility] [address] [place] [address] Dr. Dimple Parsons FERRITINon 06-04-2022 Ferritin [Mass/Vol] 193.0 ng/mL Critically high 6.2-137.0 [facility] Comment on above: Performed By: ###Rick CADENA #### [facility] [address] [place] [address] Dr. Dimple Parsons FREE T3on 06-04-2022 FREE T3 2.24 pg/mlL Normal 2.18-3.98 [facility] Comment on above: Performed By: #### R [id number] #### [facility] [address] [place] [address] Dr. Dimple Parsons FREE T4on 06-04-2022 Free T4 [Mass/Vol] 1.14 ng/dL Normal 0.76-1.46 [facility] Comment on above: Performed By: #### Inder CADENA #### [facility] [address] [place] [address] Dr. Dimple Parsons GLUCOSE BLOODon 06-04-2022 Glucose [Mass/Vol] 92 mg/dL Normal 74-106 [facility] Comment on above: Performed By: #### R [id number] #### [facility] [address] [place] [address] Dr. Dimple Parsons GLYCOHEMOGLOBIN A1Con 2022 ADA RECOMMENDATION SEE BELOW Normal [facility] Comment on above: Result Comment: ADA RECOMMENDED LIMIT 4.0 - 6.0 ADA THERAPEUTIC TARGET < 7.0 ACTION SUGGESTED > 7.0 Performed By: #### A 1C #### [facility] [address] [place] [address] Dr. Dimple Parsons Glucose [Mass/Vol] 100 mg/dL Normal [facility] Comment on above: Performed By: #### A 1C #### [facility] [address] [place] [address] Dr. Dimple Parsons HbA1c (Bld) [Mass fraction] 5.1 % Normal 4.5-6.2 [facility] Comment on above: Performed By: #### A 1C #### [facility] [address] [place] [address] Dr. Dimple Parsons T4on 06-04-2022 T4 [Mass/Vol] 8.60 ug/dL Normal 4.80-13.[address] [facility] Comment on above: Performed By: #### R [id number] #### [facility] [address] [place] [address] Dr. Dimple Parsons TSHon 06-04-2022 TSH 0.442 uIU/mL Normal 0.358-3.74 0 [facility] Comment on above: Performed By: #### R [email or web address] #### [facility] [address] [address] [address] Dimple Parsons US PELVIS AND TRANSVAGon [...] by: KAYLA ACOSTA Date: 2022-05-25 13:36 Normal [facility] RAD - MISCon 05-24-2022 RAD - MIS [id number]:12 7 Normal [facility] Ambulatory Visit Summaryon 0 05-21-2022 Ambulatory Visit Summary KARLENE VAZQUEZ :1990 Visit Date:05/21/2022 Ambulatory Visit Instructions Your Diagnosis Ureteral stone Kidney stone Stress incontinence Tests Performed Urnls Dip Stick Auto w/o Microscopy POC 84485 Your Care Team Attending Physician - LUCY [...] STILES, Kamaljit Rivas Where: [facility] Patient Educationon 05-22-19 Patient Education Urology Kidney [...] these instructions at home: Medicines ? Take ovkk-umw-kbsrscd and prescription medicines only as told by [...] 08/16/2008 Document Revised: 07/17/2019 Document Reviewed: 07/17/2019 [employer] Patient Education ? 2019 [employer]. [facility] Urology Office/Clinic Noteon 05-21-2022 Urology Office/Clinic Note Chief Complaint Pt here for ER follow up 05-08-22 HPI Staff F/U to [facility] ER visit 05/08/22 due to Kidney Stone. [...] stone (N20.1: Calculus of ureter) Presented to [facility] ER 05/08/22 with sudden onset right flank [...] When Contact Information LUCY STILES, Kamaljit Rivas, [place] [id number]- Additional Instructions: 3 months to review met w/up Patient Education Kidney Stones, Hlns-nq-Gnot IMarce, personally scribed for Dr. Romero on [...] is negative (more content not included)... Normal [facility] Comment on above: Result Comment: Elec [...] by: DAVID ALDANA Date: 2022-05-21 06:53 Normal [facility] ED Note-Physicianon 05-17-19 ED Note-Physician [id number]#1.00CD:1 27 Normal [facility] RAD - CT Reporton 05-16-2022 RAD - CT Report [id number]:12 7 Normal [facility] RAD - Ultrasound Reporton RAD - Ultrasound Report [id number]#1.00CD:1 27 Normal [facility] CBC AUTO DIFFon 05-08-2022 BASO # 0.0 103/ul Normal 0.0-0.1 [facility] Comment on above: Performed By: #### C BC #### [facility] [address] [address] [address] Dimple Parsons Basophils/100 WBC (Bld) 0.3 % Normal 0.2-2.0 [facility] Comment on above: Performed By: #### C BC #### [facility] [address] [address] [address] Dimple Parsons EO # 0.2 103/ul Normal 0.0-0.7 [facility] Comment on above: Performed By: #### C BC #### [facility] [address] [address] [address] Dimple Parsons Eosinophils/100 WBC (Bld) 1.3 % Normal 0.9-7.0 [facility] Comment on above: Performed By: #### C BC #### [facility] [address] [address] [address] Dimple Parsons Erythrocyte distribution width (RBC) [Ratio] 13.9 % Normal 11.0-15.0 [facility] Comment on above: Performed By: #### C BC #### [facility] [address] [address] [address] Dimple Parsons Hematocrit (Bld) [Volume fraction] 38.8 % Normal 36.0-48.0 [facility] Comment on above: Performed By: #### C BC #### [facility] [address] [address] [address] Dimple Parsons Hemoglobin (Bld) [Mass/Vol] 12.8 g/dL Normal 12.0-16.0 [facility] Comment on above: Performed By: #### C BC #### [facility] [address] [address] [address] Dimple Parsons IG # 0.15 10e3/ul Critically high 0.00-0.03 [facility] Comment on above: Performed By: #### C BC #### [facility] [address] [address] [address] Dimple Parsons IG % 1.3 % Critically high 0.0-0.5 [facility] Comment on above: Performed By: #### C BC #### [facility] [address] [address] [address] Dimple Parsons LYMPH # 3.4 103/ul Normal 1.2-3.8 [facility] Comment on above: Performed By: #### C BC #### [facility] [address] [place] [address] Dr. Dimple Parsons Lymphocytes/100 WBC (Bld) 28.9 % Normal 20.5-60.0 [facility] Comment on above: Performed By: #### C BC #### [facility] [address] [place] [address] Dr. Dimple Parsons MANUAL DIFF REQ NO Normal [facility] Comment on above: Performed By: #### C BC #### [facility] [address] [place] [address] Dr. Dimple Parsons MCH (RBC) [Entitic mass] 25.9 pg Critically low 26.7-34.0 [facility] Comment on above: Performed By: #### C BC #### [facility] [address] [place] [address] Dr. Dimple Parsons MCHC (RBC) [Mass/Vol] 33.0 g/dL Normal 29.9-35.2 [facility] Comment on above: Performed By: #### C BC #### [facility] [address] [place] [address] Dr. Dimple Parsons MCV (RBC) [Entitic vol] 78.5 fL Critically low 81.0-99.0 [facility] Comment on above: Performed By: #### C BC #### [facility] [address] [place] [address] Dr. Dimple Parsons MONO # 0.7 103/ul Normal 0.3-0.8 [facility] Comment on above: Performed By: #### C BC #### [facility] [address] [place] [address] Dr. Dimple Parsons Monocytes/100 WBC (Bld) 6.2 % Normal 1.7-12.0 [facility] Comment on above: Performed By: #### C BC #### [facility] [address] [address] [address] Dimple Parsons NEUT # 7.3 103/ul Critically high 1.4-6.5 [facility] Comment on above: Performed By: #### C BC #### [facility] [id number] Dimple Parsons Neutrophils/100 WBC (Bld) 62.0 % Normal 43.0-75.0 [facility] Comment on above: Performed By: #### C BC #### [facility] [address] [address] [address] Dimple Parsons Platelet mean volume (Bld) [Entitic vol] 9.1 fL Critically low 9.5-13.5 [facility] Comment on above: Performed By: #### C BC #### [facility] [address] [place] [address] Dr. Dimple Parsons PLT 426 103/ul Normal 150-450 [facility] Comment on above: Performed By: #### C BC #### [facility] [address] [address] [address] Dimple Parsons RBC 4.94 106/ul Normal 4.20-5.40 [facility] Comment on above: Performed By: #### C BC #### [facility] [address] [place] [address] Dr. Dimple Parsons WBC 11.9 103/ul Critically high 4.0-11.0 [facility] Comment on above: Performed By: #### C BC #### [facility] [address] [place] [address] ABD/PELVIS WO CONon [...] outpatient ultrasound. Note: Exam was submitted to [facility] operations Incidental Findings call que, to call the above findings to the patient's primary care provider nonemergently. Electronically authenticated by: RERE CARLISLE Date: 2022-05-08 05:24 Normal [facility] PROF 14(COMP METB)on 023 Albumin [Mass/Vol] 4.0 g/dL Normal 3.4-5.0 [facility] Comment on above: Performed By: #### R [email or web address] #### [facility] [address] [place] [address] Dr. Dimple Parsons Albumin/Globulin [Mass ratio] 1.1 {ratio} Normal [facility] Comment on above: Performed By: #### R [email or web address] #### [facility] [address] [place] [address] Dr. Dimple Parsons ALP [Catalytic activity/Vol] 76 U/L Normal 46-116 [facility] Comment on above: Performed By: #### R [email or web address] #### [facility] [address] [place] [address] Dr. Dimple Parsons ALT [Catalytic activity/Vol] 20 U/L Normal 14-59 [facility] Comment on above: Performed By: #### R [id number] #### [facility] [address] [place] [address] Dr. Dimple Parsons Anion gap [Moles/Vol] 14.9 mmol/L Normal [facility] Comment on above: Performed By: #### R [email or web address] #### [facility] [address] [place] [address] Dr. Dimple Parsons AST [Catalytic activity/Vol] 19 U/L Normal 15-37 [facility] Comment on above: Performed By: #### R [id number] #### [facility] [address] [place] [address] Dr. Dimple Parsons Bilirubin [Mass/Vol] 0.6 mg/dL Normal 0.2-1.0 [facility] Comment on above: Performed By: #### R [id number] #### [facility] [address] [place] [address] Dr. Dimple Parsons Calcium [Mass/Vol] 9.0 mg/dL Normal 8.5-10.1 [facility] Comment on above: Performed By: #### R [email or web address] #### [facility] [address] [place] [address] Dr. Dimple Parsons Chloride [Moles/Vol] 103 mmol/L Normal 98-107 [facility] Comment on above: Performed By: #### R EVRT3 #### [facility] [address] [address] [address] Dimple Parsons CO2 [Moles/Vol] 25.5 mmol/L Normal 21.0-32.0 [facility] Comment on above: Performed By: #### R EVRT3 #### [facility] [address] [address] [address] Dimple Parsons Creatinine [Mass/Vol] 0.75 mg/dL Normal 0.55-1.02 [facility] Comment on above: Performed By: #### R EVRT3 #### [facility] [address] [place] [address] Dr. Dimple Parsons EGFR-AF JAMAICAN >60 Normal >=60 [facility] Comment on above: Performed By: #### R EVRT3 #### [facility] [address] [address] [address] Dimple Parsons EGFR-NON AF JAMAICAN >60 Normal >=60 [facility] Comment on above: Performed By: #### R [id number] #### [facility] [address] [address] [address] Dimple Parsons Globulin (S) [Mass/Vol] 3.8 g/dL Normal [facility] Comment on above: Performed By: #### R [email or web address] #### [facility] [address] [address] [address] Dimple Parsons Glucose [Mass/Vol] 107 mg/dL Critically high 74-106 [facility] Comment on above: Performed By: #### R [id number] #### [facility] [address] [address] [address] Dimple Parsons Potassium [Moles/Vol] 3.4 mmol/L Critically low 3.5-5.1 [facility] Comment on above: Performed By: #### R EVRT3 #### [facility] [address] [place] [address] Dr. Dimple Parsons Protein [Mass/Vol] 7.8 g/dL Normal 6.4-8.2 [facility] Comment on above: Performed By: #### R EVRT3 #### [facility] [address] [address] [address] Dimple Parsons Sodium [Moles/Vol] 140 mmol/L Normal 136-145 [facility] Comment on above: Performed By: #### R EVRT3 #### [facility] [address] [address] [address] Dimple Parsons Urea nitrogen [Mass/Vol] 7.0 mg/dL Normal 7.0-18.0 [facility] Comment on above: Performed By: #### R EVRT3 #### [facility] [address] [address] [address] Dimple Parsons Urea nitrogen/Creatinine [Mass ratio] 9.3 mg/mg Normal [facility] Comment on above: Performed By: #### R [email or web address] #### [facility] [address] [address] [address] Dimple Parsons US PELVIS TRANSVAGon 023 [...] by: MICKEY GALVAN Date: 2022-05-08 08:57 Normal [facility] XR ankle LT min 3V*on 2021 XR ankle LT min 3V* [facility] [place] [address] [place], [place] [id number] XRay Report Signed Patient: Karlene Vazquez MR#: [id number] : 1990 Acct:[id number] Age/Sex: 31 / F ADM Date: 02/21/22 Loc: XDUCLY Room: Type: [facility] Attending Dr: Treasure EAST Copies to: [...] Inman Jr., D.OBishnu02/21/2022 12:42 PM Dictation Location: [place] [address] Transcribed By: [facility] 02/21/22 1242 Dictated By: Hardik Inman Jr DO 02/21/22 1241 Signed By: 02/21/22 1242 [facility] Physician Referralon 022 Physician Referral [id number]:12 7 [facility] Operative Reporton Operative Report [id number]:1 27 [facility] Pre-Certification Formon Pre-Certification Form [id number]#1.00CD:12 7 [facility] Lab Reportson 01-17-2022 Lab Reports [id number]#1.00CD:12 7 [facility] Reportson 01-16-2022 Lab Reports [id number]:12 7 [facility] CBC AUTO DIFFon 01-13-2022 BASO # 0.1 103/ul Normal 0.0-0.1 [facility] Comment on above: Performed By: #### C BC #### [facility] [address] [place] [address] Dr. Dimple Parsons Basophils/100 WBC (Bld) 0.5 % Normal 0.2-2.0 [facility] Comment on above: Performed By: #### C BC #### [facility] [address] [place] [address] Dr. Dimple Parsons EO # 0.2 103/ul Normal 0.0-0.7 [facility] Comment on above: Performed By: #### C BC #### [facility] [address] [place] [address] Dr. Dimple Parsons Eosinophils/100 WBC (Bld) 2.3 % Normal 0.9-7.0 [facility] Comment on above: Performed By: #### C BC #### [facility] [address] [place] [address] Dr. Dimple Parsons Erythrocyte distribution width (RBC) [Ratio] 13.2 % Normal 11.0-15.0 [facility] Comment on above: Performed By: #### C BC #### [facility] [address] [place] [address] Dr. Dimple Parsons Hematocrit (Bld) [Volume fraction] 40.5 % Normal 36.0-48.0 [facility] Comment on above: Performed By: #### C BC #### [facility] [address] [place] [address] Dr. Dimple Parsons Hemoglobin (Bld) [Mass/Vol] 13.0 g/dL Normal 12.0-16.0 [facility] Comment on above: Performed By: #### C BC #### [facility] [address] [place] [address] Dr. Dimple Parsons IG # 0.01 10e3/ul Normal 0.00-0.03 [facility] Comment on above: Performed By: #### C BC #### [facility] [address] [place] [address] Dr. Dimple Parsons IG % 0.1 % Normal 0.0-0.5 [facility] Comment on above: Performed By: #### C BC #### [facility] [address] [place] [address] Dr. Dimple Parsons LYMPH # 2.6 103/ul Normal 1.2-3.8 [facility] Comment on above: Performed By: #### C BC #### [facility] [address] [place] [address] Dr. Dimple Parsons Lymphocytes/100 WBC (Bld) 27.4 % Normal 20.5-60.0 [facility] Comment on above: Performed By: #### C BC #### [facility] [address] [place] [address] Dr. Dimple Parsons MANUAL DIFF REQ NO Normal [facility] Comment on above: Performed By: #### C BC #### [facility] [address] [place] [address] Dr. Dimple Parsons MCH (RBC) [Entitic mass] 26.4 pg Critically low 26.7-34.0 [facility] Comment on above: Performed By: #### C BC #### [facility] [address] [place] [address] Dr. Dimple Parsons MCHC (RBC) [Mass/Vol] 32.1 g/dL Normal 29.9-35.2 [facility] Comment on above: Performed By: #### C BC #### [facility] [address] [place] [address] Dr. Dimple Parsons MCV (RBC) [Entitic vol] 82.2 fL Normal 81.0-99.0 [facility] Comment on above: Performed By: #### C BC #### [facility] [address] [place] [address] Dr. Dimple Parsons MONO # 0.6 103/ul Normal 0.3-0.8 [facility] Comment on above: Performed By: #### C BC #### [facility] [address] [place] [address] Dr. Dimple Parsons Monocytes/100 WBC (Bld) 6.2 % Normal 1.7-12.0 [facility] Comment on above: Performed By: #### C BC #### [facility] [address] [place] [address] Dr. Dimple Parsons NEUT # 6.1 103/ul Normal 1.4-6.5 [facility] Comment on above: Performed By: #### C BC #### [facility] [address] [place] [address] Dr. Dimple Parsons Neutrophils/100 WBC (Bld) 63.5 % Normal 43.0-75.0 [facility] Comment on above: Performed By: #### C BC #### [facility] [address] [place] [address] Dr. Dimple Parsons Platelet mean volume (Bld) [Entitic vol] 9.0 fL Critically low 9.5-13.5 [facility] Comment on above: Performed By: #### C BC #### [facility] [address] [place] [address] Dr. Dimple Parsons PLT 346 103/ul Normal 150-450 [facility] Comment on above: Performed By: #### C BC #### [facility] [address] [place] [address] Dr. Dimple Parsons RBC 4.93 106/ul Normal 4.20-5.40 [facility] Comment on above: Performed By: #### C BC #### [facility] [address] [place] [address] Dr. Dimlpe Parsons WBC 9.5 103/ul Normal 4.0-11.0 [facility] Comment on above: Performed By: #### C BC #### [facility] [address] [place] [address] Dr. Dimple Parsons FREE T4on 01-13-2022 Free T4 [Mass/Vol] 1.39 ng/dL Normal 0.76-1.46 [facility] Comment on above: Performed By: #### C BC #### [facility] [address] [place] [address] Dr. Dimlpe Parsons PROF CHEM 8 (BAS METB)on Anion gap [Moles/Vol] 10.4 mmol/L Normal Th [facility] Comment on above: Performed By: #### Inder CADENA #### [facility] [address] [place] [address] Dr. Dimple Parsons Calcium [Mass/Vol] 9.0 mg/dL Normal 8.5-10.1 [facility] Comment on above: Performed By: #### Inder CADENA #### [facility] [address] [address] [address] Dimple Parsons Chloride [Moles/Vol] 101 mmol/L Normal 98-107 [facility] Comment on above: Performed By: #### Inder CADENA #### [facility] [address] [place] [address] Dr. Dimple Parsons CO2 [Moles/Vol] 29.3 mmol/L Normal 21.0-32.0 [facility] Comment on above: Performed By: ###Rick CADENA #### [facility] [address] [place] [address] Dr. Dimple Parsons Creatinine [Mass/Vol] 0.79 mg/dL Normal 0.55-1.02 [facility] Comment on above: Performed By: ###Rick CADENA #### [facility] [address] [place] [address] Dr. Dimple Parsons EGFR-AF JAMAICAN >60 Normal >=60 [facility] Comment on above: Performed By: #### Inder CADENA #### [facility] [address] [place] [address] Dr. Dimple Parsons EGFR-NON AF JAMAICAN >60 Normal >=60 [facility] Comment on above: Performed By: #### Inder CADENA #### [facility] [address] [place] [address] Dr. Dimple Parsons Glucose [Mass/Vol] 92 mg/dL Normal 74-106 [facility] Comment on above: Performed By: #### Inder CADENA #### [facility] [address] [place] [address] Dr. Dimple Parsons Potassium [Moles/Vol] 3.7 mmol/L Normal 3.5-5.1 [facility] Comment on above: Performed By: #### Inder CADENA #### [facility] [address] [place] [address] Dr. Dimple Parsons Sodium [Moles/Vol] 137 mmol/L Normal 136-145 [facility] Comment on above: Performed By: #### Inder CADENA #### [facility] [address] [place] [address] Dr. Dimple Parsons Urea nitrogen [Mass/Vol] 11.0 mg/dL Normal 7.0-18.0 [facility] Comment on above: Performed By: #### Inder CADENA #### [facility] [address] [place] [address] Dr. Dimple Parsons Urea nitrogen/Creatinine [Mass ratio] 13.9 mg/mg Normal [facility] Comment on above: Performed By: #### Inder CADENA #### [facility] [address] [place] [address] Dr. Dimple Parsons PROTIMEon 01-13-2022 INR Coag (PPP) [Relative time] 1.04 {INR} Normal [facility] Comment on above: Performed By: #### P TT, PT #### [facility] [address] [place] [address] Dr. Dimple Parsons INR GUIDELINES SEE BELOW Normal [facility] Comment on above: Result Comment: VISHAL RED INR: 2.0 - 3.0 CONDITIONS NOT LISTED BELOW 2.5 - 3.5 FOR PROSTHETIC HEART VALVE REPLACEMENT 2.5 - 3.5 RECURRENT THROMBOSIS Performed By: #### P TT, PT #### [facility] [address] [place] [address] Dr. Dimple Parsons PT Coag (PPP) [Time] 11.2 s Normal 9.0-11.6 [facility] Comment on above: Performed By: #### P TT, PT #### [facility] [address] [place] [address] Dr. Dimple Parsons PTTon 01-13-2022 aPTT Coag (Bld) [Time] 35.1 s Normal 22.3-36.2 e [facility] Comment on above: Performed By: #### P TT, PT #### [facility] [address] [address] [address] Dimple Parsons Patient Educationon 01-14-20 22 [...] Reviewed: 10/18/2018 Elsevier Patient Education ? 2020 [employer] Normal [facility] TSHon 01-13-2022 TSH 1.528 uIU/mL Normal 0.358-3.74 0 [facility] Comment on above: Performed By: #### T SH #### [facility] [address] [address] [address] Dimple Parsons PAP ACOG PANEL 2: 30 to 65on 12-26-2021 . . Normal [facility] Comment on above: Result Comment: Perf ormed at: WB Performed By: #### C BC #### [facility] [address] [place] [address] Dr. Dimple Parsons Age Gdln ACOG Testing 30-65 [facility] Comment on above: Performed By: #### C BC #### [facility] [address] [place] [address] Dr. Dimple Parsons DIAGNOSIS: Comment [facility] Comment on above: Result Comment: NEGA TIVE FOR INTRAEPITHELIAL LESION OR MALIGNANCY. Performed at: WB Performed By: #### C BC #### [facility] [address] [place] [address] Dr. Dimple Parsons HPV Aptima Negative Normal Negative [facility] Comment on above: Result Comment: This nucleic acid amplification test detects fourteen high-risk HPV types (16,18,31,33,35,39,45,51,52,56,58,59,66,68) without differentiation. Performed at: =G Performed By: #### C BC #### [facility] [address] [place] [address] Dr. Dimple Parsons Methodology: Comment [facility] Comment on above: Result Comment: This liquid based ThinPrep(R) pap test was screened with the use of an image guided system. Performed at: WB Performed By: #### C BC #### [facility] [address] [place] [address] Dr. Dimple Parsons Note: Comment Normal [facility] Comment on above: Result Comment: The [...] WB Performed By: #### C BC #### [facility] [address] [address] [address] Dimple Parsons Performed by: Comment Normal [facility] Comment on above: Result Comment: Susan Hercules Accounts Payable Assistant (ASCP) Performed at: WB Performed By: #### C BC #### [facility] [address] [address] [address] Dimple Parsons Specimen adequacy: Comment Normal [facility] Comment on above: Result Comment: Sati sfactory for evaluation. No endocervical component is identified. Performed at: WB Performed By: #### C BC #### [facility] [address] [place] [address] Dr. Dimple Parsons COVID Quick Testingon 2021 Result Negative [facility] Other Vital Signs Date Time Vital Sign Value Performing Clinician Facility 04-04-2023 14:15-0500 Body height 175.26 cm Surya Hodges Other [facility] 04-04-2023 14:15-0500 Body mass index (BMI) [Ratio] 30.42 kg/m2 Surya Hodges Other [facility] Other 04-04-2023 14:15-0500 Body weight 93.44 kg uSrya Hodges Other [facility] 04-04-2023 14:15-0500 Diastolic blood pressure 85 mm[Hg] Surya Hodges Other [facility] 04-04-2023 14:15-0500 Systolic blood pressure 120 mm[Hg] Surya Hodges Other [facility] 12-17-2022 08:30-0400 Body height 175.26 cm Surya Hodges Other [facility] Other 12-17-2022 08:30-0400 Body mass index (BMI) [Ratio] 29.5 kg/m2 Surya Hodges Other [place] Other 12-17-2022 08:30-0400 Body weight 90.63 kg Surya Hodges Other [facility] Other 12-17-2022 08:30-0400 Diastolic blood pressure 85 mm[Hg] Surya Hodges Other [facility] Other 12-17-2022 08:30-0400 Systolic blood pressure 120 mm[Hg] Surya Hodges Other [facility] Other 12-01-2022 12:00-0400 Body temperature 97.6 [degF] MD Surya Hodges Work Phone: [facility] 12-01-2022 12:00-0400 Diastolic blood pressure 77 mm[Hg] MD Surya Hodges Work Phone: [facility] 12-01-2022 12:00-0400 Heart rate 89 /min MD Surya Hodges Work Phone: [facility] 12-01-2022 12:00-0400 Respiratory rate 20 /min MD Surya Hodges Work Phone: [facility] 12-01-2022 12:00-0400 SaO2% (BldA) [Mass fraction] 99 % MD Surya Hodges Work Phone: [facility] 12-01-2022 12:00-0400 Systolic blood pressure 116 mm[Hg] MD Surya Hodges Work Phone: [facility] 12-01-2022 05:51-0400 Body weight 89.4 kg MD Surya Hodges Work Phone: [facility] 11-30-2022 16:30-0400 Body height 175.26 cm MD Surya Hodges Work Phone: [facility] 11-29-2022 11:15-0400 Body height 175.26 cm Surya Hodges Other [facility] Other 11-29-2022 11:15-0400 Body mass index (BMI) [Ratio] 28.79 kg/m2 Surya Hodges Other [facility] Other 11-29-2022 11:15-0400 Body temperature 97.1 [degF] Surya Hodges Other [facility] Other 11-29-2022 11:15-0400 Body weight 88.45 kg Surya Hodges Other [facility] Other 11-29-2022 11:15-0400 Diastolic blood pressure 88 mm[Hg] Surya Hodges Other [facility] Other 11-29-2022 11:15-0400 SaO2% (BldA) [Mass fraction] 98 % Surya Hodges Other [facility] Other 11-29-2022 11:15-0400 Systolic blood pressure 124 mm[Hg] Surya Hodges Other [facility] Other 11-18-2022 08:30-0400 Body height 175.26 cm Surya Hodges Other [facility] Other 11-18-2022 08:30-0400 Body mass index (BMI) [Ratio] 28.59 kg/m2 Surya Hodges Other [facility] Other 11-18-2022 08:30-0400 Body weight 87.82 kg Surya Hodges Other [facility] Other 11-18-2022 08:30-0400 Diastolic blood pressure 89 mm[Hg] Surya Hodges Other [facility] Other 11-18-2022 08:30-0400 Systolic blood pressure 131 mm[Hg] Surya Hodges Other [facility] Other 11-05-2022 10:00-0400 Body height 175.26 cm Surya Hodges Other [facility] Other 11-05-2022 10:00-0400 Body mass index (BMI) [Ratio] 29.68 kg/m2 Surya Hodges Other [facility] Other 11-05-2022 10:00-0400 Body weight 91.17 kg Surya Hodges Other [facility] Other 11-05-2022 10:00-0400 Diastolic blood pressure 85 mm[Hg] Surya Hodges Other [facility] Other 11-05-2022 10:00-0400 Systolic blood pressure 134 mm[Hg] Surya Hodges Other [facility] Other 10-18-2022 08:30-0400 Body height 175.26 cm Surya Hodges Other [facility] Other 10-18-2022 08:30-0400 Body mass index (BMI) [Ratio] 28.94 kg/m2 Surya Hodges Other [facility] Other 10-18-2022 08:30-0400 Body weight 88.91 kg Surya Hodges Other [facility] Other 10-18-2022 08:30-0400 Diastolic blood pressure 89 mm[Hg] Surya Hodges Other [facility] Other 10-18-2022 08:30-0400 Systolic blood pressure 137 mm[Hg] Surya Hodges Other [facility] Other 09-09-2022 10:15-0400 Body height 175.26 cm Surya Hodges Other [facility] Other 09-09-2022 10:15-0400 Body mass index (BMI) [Ratio] 29.12 kg/m2 Surya Hodges Other [facility] Other 09-09-2022 10:15-0400 Body weight 89.45 kg Surya Hodges Other [facility] Other 09-09-2022 10:15-0400 Diastolic blood pressure 89 mm[Hg] Surya Hodges Other [facility] Other 09-09-2022 10:15-0400 Respiratory rate 12 /min Surya Hodges Other [facility] Other 09-09-2022 10:15-0400 Systolic blood pressure 132 mm[Hg] Surya Hodges Other [facility] Other 05-21-2022 10:01-0500 Blood Pressure Location Kamaljit ROMERO [facility] 05-21-2022 10:01-0500 Diastolic blood pressure 80 mm[Hg] Kamaljit ROMERO [facility] 05-21-2022 10:01-0500 Heart rate 85 /min Kamaljit ROMERO [facility] 05-21-2022 10:01-0500 Systolic blood pressure 119 mm[Hg] Kamaljit ROMERO [facility] 01-13-2022 08:36-0400 Blood Pressure Location VERA WALDRONRY [facility] 01-13-2022 08:36-0400 Diastolic blood pressure 90 mm[Hg] VERA MANDEEP [facility] 01-13-2022 08:36-0400 Heart rate 91 /min VERA MANDEEP [facility] 01-13-2022 08:36-0400 Respiratory rate 16 /min VERA MANDEEP [facility] 01-13-2022 08:36-0400 Systolic blood pressure 134 mm[Hg] VERA MANDEEP [facility] 04-08-2021 15:30-0500 Body height 175.26 cm Treasure Quezada Other [facility] Other 04-08-2021 15:30-0500 Body mass index (BMI) [Ratio] 29.97 kg/m2 Treasure Quezada Other [facility] Other 04-08-2021 15:30-0500 Body temperature 96.6 [degF] Treasure Quezada Other [facility] Other 04-08-2021 15:30-0500 Body weight 92.08 kg Treasure Quezada Other [facility] Other 04-08-2021 15:30-0500 Respiratory rate 18 /min Treasure Quezada Other [facility] Other 04-08-2021 15:30-0500 SaO2% (BldA) [Mass fraction] 98 % Terasure Quezada Other [facility] Other Encounters Encounter Date Encounter Type Care Provider Facility Start: 05-04-2023 End: 05-04-2023 ambulatory [facility] Work Phone: Start: 05-04-2023 End: 05-04-2023 Patient encounter procedure [facility] Work Phone: Start: 05-02-2023 Non-patient / Non-visit [email or web address] Work Phone: Start: 04-21-2023 End: 04-21-2023 ambulatory YESICA BECKER Not Available Start: 04-21-2023 End: 04-21-2023 Online digital e/m svc est pt <7 d 11-20 minutes Yesica Becker PA Work Phone: [facility] Comment on above: Insulin resistance; Metabolic syndrome; Hormone imbalance Start: 04-04-2023 End: 04-04-2023 ambulatory Surya Hodges Other [facility] Other Start: 04-04-2023 Office outpatient vi sit 15 minutes Surya Hodges [facility] Start: 04-04-2023 End: 04-04-2023 Patient encounter procedure [facility]- Start: 03-11-2023 End: 03-11-2023 ambulatory Surya Hodges Other [facility] Other Start: 03-11-2023 Telephone encounter Surya Hodges [facility] Start: 03-11-2023 Patient encounter procedure [facility]- Start: 02-09-2023 End: 02-09-2023 ambulatory YESICA BECKER Not Available Start: 01-12-2023 End: 01-12-2023 ambulatory Surya Hodges Other [facility] Other Start: 01-12-2023 Telephone encounter Surya Hodges [facility] Start: 12-17-2022 End: 12-17-2022 ambulatory Surya Hodges Other [facility] Other Start: 12-17-2022 Office outpatient vi sit 15 minutes Surya Hodges [facility] Start: 11-30-2022 End: 12-01-2022 Evaluation and management of inpatient MD Surya Hodges Work Phone: [facility] Work Phone: Start: 11-30-2022 End: 12-01-2022 observation encounter MD Surya Hodges Work Phone: [facility] Work Phone: Start: 11-30-2022 End: 12-01-2022 ambulatory Baljinder Polanco [facility] Other Start: 11-30-2022 Telephone encounter Surya Hodges [facility] Start: 11-29-2022 End: 11-29-2022 ambulatory Surya Hodges Other [facility] Other Start: 11-29-2022 Office outpatient vi sit 15 minutes Surya Hodges [facility] Start: 11-29-2022 Telephone encounter Surya Hodges [facility] Start: 11-18-2022 End: 11-18-2022 ambulatory Surya Hodges Other [facility] Other Start: 11-18-2022 Office outpatient vi sit 10 minutes Surya Hodges [facility] Start: 11-05-2022 End: 11-05-2022 ambulatory Surya Hodges Other [facility] Other Start: 11-05-2022 Office outpatient vi sit 10 minutes Surya Hodges [facility] Start: 11-04-2022 End: 11-04-2022 ambulatory Surya Hodges Other [facility] Other Start: 11-04-2022 Telephone encounter Surya Hodges [facility] Start: 10-18-2022 End: 10-18-2022 ambulatory Surya Hodges Other [facility] Other Start: 10-18-2022 Office outpatient vi sit 10 minutes Surya Hodges [facility] Start: 09-17-2022 End: 09-17-2022 ambulatory Surya Hodges Other [facility] Other Start: 09-17-2022 Telephone encounter Surya Hodges [facility] Start: 09-09-2022 End: 09-09-2022 ambulatory Surya Hodges Other [facility] Other Start: 09-09-2022 Office outpatient vi sit 15 minutes Surya Hodges [facility] Start: 09-03-2022 ambulatory Kamaljit ROMERO Facili ty:[facility] Start: 06-18-2022 Encounter for other preprocedural examination DR BRENT ROLAND . [facility] Start: 06-16-2022 End: 06-16-[address] BRENT ROLAND . Facility:[facility] Start: 06-14-2022 End: 06-15-[address] BRENT ROLAND . Facility:[facility] Start: 06-14-2022 End: 06-15-2022 Encounter for other preprocedural examination DR BRENT ROLAND . Facility:[facility] Start: 06-04-2022 End: 06-05-[address] BRENT ROLAND . Facility:[facility] Start: 05-25-2022 End: 05-26-[address] BRENT ROLAND . Facility: Start: 05-21-2022 End: 05-22-2022 ambulatory Kamaljit ROMERO Facility:[facility] Start: 05-21-2022 End: 05-21-2022 Patient encounter procedure Kamaljit ROMERO [facility] Start: 05-20-2022 End: 05-21-[address] SURYA HODGES Facility:[facility] Start: 05-08-2022 End: 05-08-[address] SURYA HODGES Facility:[facility] Start: 03-23-2022 End: 04-16-2022 ambulatory BRINA SHEIKH Facility:[facility] Start: 03-16-2022 End: 03-16-2022 ambulatory Surya Hodges Other [facility] Other Start: 03-16-2022 Office outpatient vi sit 15 minutes Surya Hodges [facility] Start: 02-25-2022 Gynecological examin ation normal Surya Hodges Other [facility] Other Start: 02-25-[address] SURYA HODGES Facil ity:[facility] Start: 02-21-2022 End: 02-21-2022 ambulatory Treasure Quezada Facility:[facility] Start: 02-21-2022 End: 02-21-2022 ambulatory MD Surya Hodges Work Phone: [facility] Work Phone: Start: 02-21-2022 End: 02-21-2022 Patient encounter procedure MD Surya Hodges Work Phone: [facility] Start: 01-19-2022 End: 01-20-2022 ambulatory Dee Mirza Facility:[id number] Start: 01-13-2022 End: 01-14-[address] BRENT ROLAND . Facility:[facility] Start: 01-13-2022 ambulatory Kamaljit ROMERO Facility :[facility] Start: 01-13-2022 End: 01-14-2022 ambulatory RONDA KAUFMAN Facility:[facility] Start: 01-13-2022 End: 01-13-2022 Patient encounter procedure VERA KAUFMAN [facility] Start: 12-21-2021 End: 12-21-[address] BRENT ROLAND . Facility: Start: 04-08-2021 (URG) Urgent Care Visit Treasure pimentel [facility] Start: 04-08-2021 End: 04-08-2021 ambulatory Treasure Quezada Other [facility] Other Start: 05-16-2020 Pre-procedure evalua tion check Surya Hodges Other [facility] Other Procedures Date Procedure Procedure Detail Performing Clinician Start: 11-30-2022 Ultrasonography of liver MD Surya Hodges Work Phone: Start: 11-30-2022 Respiratory Panel (PCR) MD Surya Hodges Work Phone: Start: 11-30-2022 Plain chest X-ray MD Kike Hodges Work Phone: Start: 02-21-2022 X-ray of left ankle MD Surya Hodges Work Phone: Start: 01-19-2022 Injection of urethra Pa anuj ROMERO Appendectomy VERA KAUFMAN Cholecystectomy VERA PATRICIA Depression screening Surya Hodges Other Hysterectomy VERA KAUFMAN Hysterectomy Surya Hodges Other Insertion of intraut erine contraceptive device Surya Hodges Other MRI guided ablation of uterine fibroid VERA KAUFMAN End: 06-01-2018 Removal of intrauterine device Surya Hodges Other Plan of Treatment Date Care Activity Detail Author Start: 12-01-2022 [facility] Start: 11-30-2022 Hospital admission [facility] Start: 11-12-2022 Influenza vaccination Influenza Vacc ine (#1) [facility] Start: 06-10-2019 Screening for malignant neoplasm of cervix [facility] Start: 2010 Screening for malignant neoplasm of cervix Pap Smear [facility] CBC W Auto Differential panel - Blood CBC and differential Lab Routine Metabolic syndrome Hormone imbalance Ordered: 04/21/2023 [facility] Work Phone: Comment on above: Ordered: 04/21/2023 Patient Education Mediterranean Diet Hyperthyroidism (Overactive Thyroid) (DC) Propranolol Prediabetes (DC) [facility] Work Phone: Patient referral [facility] Work Phone: Immunizations Immunization Date Immunization Notes Care Provider Fa cility 04-20-2021 SARS-CoV-2 (COVID-19 ) mRNA BNT-162b2 vax VERA MANDEEP [facility] Comment on above: Result Comment: 2021: TPVALL 08-14-2020 SARS-CoV-2 (COVID-19 ) Ad26 vaccine, recombinant VERA MANDEEP [facility] Comment on above: Result Comment: 2021: TPVALL Payers Date Payer Category Payer Self-pay [id number] 2021 Unknown BCBS BCBS xxxxxx [id number] 2021-Present [phone] [address] [place] [address] [id number] 1989 Unknown [id number] 2.16.840.1.897892.3.579.2. 727 1989 Unknown [id number] 2.16.840.1.484728.3.579.2. 727 1989 Unknown [id number] 2.16.840.1.870921.3.579.2. 727 1989 Unknown [id number] 2.16.840.1.765743.3.579.2. 727 1989 Unknown [id number] 2.16.840.1.290807.3.579.2. 593 1989 Unknown [id number] 2.16.840.1.034787.3.579.2. 593 1989 Unknown [id number] 2.16.840.1.980087.3.579.2. 593 1989 Unknown [id number] 2.16.840.1.733264.3.579.2. 593 1989 Unknown [id number] 2.16.840.1.652375.3.579.2. 593 1989 Unknown [id number] 2.16.840.1.289484.3.579.2. 593 1989 Unknown [id number] 2.16.840.1.580627.3.579.2. 593 1989 Unknown [id number] 2.16.840.1.918109.3.579.2. 593 1989 Unknown [id number] 2.16.840.1.475227.3.579.2. 593 1989 Unknown [id number] 2.16.840.1.164506.3.579.2. 593 1989 Unknown [id number] 2.16.840.1.163216.3.579.2. 593 1989 Unknown [id number] 2.16.840.1.590061.3.579.2. 593 1989 Unknown [id number] 2.16.840.1.641924.3.579.2. 1259 1989 Unknown [id number] 2.16.840.1.156317.3.579.2. 1259 1959 Blue Cross Blue Shield DZILA [id number] 2.16.840.1.528134.19 Unknown [place] BC/BS [id number] Unknown [id number] 2.16.840.1.716657.3.579.2. 531 Unknown [id number] 2.16.840.1.174079.3.579.2. 531 Social History Date Type Detail Facility Unknown if ever smoked [facility] Other Start: 02-09-2023 Sex Assigned At F [facility] Start: 01-13-2022 End: 04-04-2023 Tobacco smoking status Never smoked tobacco (finding) [facility] Tobacco smoking status Never [facility] Start: 1990 Sex Assigned At Female F [facility] Start: 02-09-2023 Alcohol intake Ex-drinker (finding) [facility] Start: 02-09-2023 History of Social function [facility] Start: 09-24-2022 Alcohol Comment occasional: dr kam wine & beer [facility] Start: 09-27-2022 Gender identity Identifies as female gender (finding) [facility] Goals Date Patient Goal Desired Activity /State Functional Status Date Assessment Result Facility 12-01-2022 Functional status Patient at Baseline [facility] Work Phone: 05-21-2022 Functional Status N/A [facility] 01-13-2022 Functional Status N/A [facility] Center Mental Status Date Assessment Result Facility 12-01-2022 Cognitive function Cognitive Sta tus Patient at [facility] Work Phone: Clinical Notes 04-08-2021 to [...] for a telehealth appointment. Patients Phone #: [phone] (mobile) Current Medications: has a current medication [...] LIGATION Bilateral 2012 Allergies Allergen Reactions Adacel [Jswfqxh-Siswcn-Rrtat Pertussis] Swelling Clindamycin Rash Vitals: Estimated body [...] for cbc check for kidney function to [facility]. Pt aware and agrees to have blood work obtained. She will follow up in office in 3 months Documented by MARGRET Canales on behalf of: MARGRET Canales Cbc order was sent to [facility] for pt to have done. documented in this encounter [facility] 04-04-2023 Evaluation note Encounter Date Diagnosis Assessment Notes Mar, Bronchitis (ICD-10 - J40) Discussed diagnosis with patient. Finish entire course of antibiotic. Proair inhaler sent today for patient to use PRN cough/wheezing/s hortness of breath. Tessalon Pearles ordered to take as needed for cough. Increase fluids and rest. Fdul-mxu-akqkyia antipyretics as needed. Warning signs and symptoms reviewed with patient today. Patient to go immediately to the ER should she experience any of these. Patient to notify office should her symptoms persist and not improve. Patient verbalizes understanding and agrees to treatment plan. Mar, Vaginal yeast infection (ICD-10 - B37.31) Pt requests diflucan to cover probable yeast infection w antibiotic. [facility] Other 12-29-2023 Evaluation note* Encounter Date Diagnosis Assessment Notes Treatment Notes Treatment Clinical Notes Feb, Sore throat (ICD-10 - J02.9) [facility] Other 10-06-2023 Evaluation note* Encounter Date Diagnosis Assessment Notes Treatment Notes Treatment Clinical Notes Dec, Hypothyroidism (ICD-10 - E03.9) Recheck in next 4-6 weeks. Continue healthy diet and exercise. [facility] Other 09-20-2023 Discharge summary Author Baljinder Polanco [facility] December 01, 2022 5:19pm Note Date/Time December 01, 2022 1:02pm [facility] [address] [place] [address] Discharge Summary Signed Patient: Karlene Vazquez MR#: [id number] : 1990 Acct:[id number] Age/Sex: 32 / F Adm Date: 3 Loc: 3T Room: [address] [place] [address]: Baljinder Polanco MD Copies to: [...] Clear, Urine pH >= 9.0, Ur Specific [place] 1.013, Urine Protein Negative, Urine Glucose (UA) [...] % (Auto) 59.2, Lymph % (Auto) 32.3, [place] % (Auto) 6.8, Eos % (Auto) 0.9, Baso % (Auto) 0.8, Nucleat RBC Rel Count 0.2, Neut # (Auto) 4.9, Lymph # (Auto) 2.7, [place] # (Auto) 0.6, Eos # (Auto) 0.1, Baso # (Auto) 0.1, Monocyte Dist Width19.22 11/30/22 13:00: PHA Creatinine Clear 114.08, Sodium 138, Potassium 4.1, Oiygwlrz587, Carbon Dioxide 23.9, Anion Gap 14.2, BUN 9, Creatinine 0.83, Est GFR (CKD-EPI) > 60.0, Glucose 77, Calcium 9.5, Magnesium 1.9, Total Bilirubin 0.9, DirectBilirubin 0.00 L, Indirect Bilirubin 0.9, AST 11 L, ALT 16, Alkaline Dprnpcxpfzd12, Total Protein 7.6, Albumin 4.4, Globulin 3.2, [...] needed.) Documented By: Baljinder Polanco MD 12/01/22 2448 Signed By: <Electronically signed by Baljinder Polanco MD> 12/01/22 7919 [facility] Work Phone: 1(133) 173-936809-19-2023 History and physical note Author Baljinder Polanco [facility] November 30, 2022 4:34pm Note Date/Time November 30, 2022 4:34pm [facility] [address] [place] [address] Hospitalist H&P Signed Patient: Karlene Vazquez MR#: [id number] : 1990 Acct:[id number] Age/Sex: 32 / F Adm Date: 3 Loc: Room: [address] [place] [address] Type: ADM IN Attending Dr: Baljinder Polanco [...] rub or JVD. Peripheral pulses present bilaterally. Zbfvc-qz-pglz ultrasound is unremarkable. Lungs are clear to [...] the dose of levothyroxine upon discharge. Low-dose beta-jaine until then. Not sure whether this contributes to her symptoms. DVT prophylaxis Xarelto [facility] Medical History (Updated 11/30/22 @ 15:13 [...] % (Auto) 32.3 % (.) 11/30/22 13:00 [place] % (Auto) 6.8 % (.) 11/30/22 13:00 Eos % (Auto) 0.9 % (.) 11/30/22 13:00 Baso % (Auto) 0.8 % (.) 11/30/22 13:00 Nucleat RBC Rel Count 0.2 /100 WBC (0-0.5) 11/30/22 13:00 Neut # (Auto) 4.9 x10E3/uL (1.8-7.7) 11/30/22 13:00 Lymph # (Auto) 2.7 x10E3/uL (1.00-4.8) 11/30/22 13:00 [place] # (Auto) 0.6 x10E3/uL (0.0-0.8) 11/30/22 13:00 [...] >= 9.0 (5.0-9.0) 11/30/22 16:04 Ur Specific [place] 1.013 (1.001-1.030) 11/30/22 16:04 Urine Protein Negative [...] signed by Baljinder Polanco MD> 11/30/22 1634 [facility] Work Phone: 1(672) 755-381609-18-2023 Evaluation note* Encounter Date Diagnosis Assessment Notes [...] - E03.9) Pt's thyroid managed by her urogynecology physician - will check levels - labs were normal in May [facility] Other 09-07-2023 Evaluation note* Encounter Date Diagnosis [...] index [BMI] 28.0-28.9, adult (ICD-10 - Z68.28) [facility] Other 08-25-2023 Evaluation note* Encounter Date Diagnosis Assessment Notes Treatment Notes Treatment Clinical Notes Oct, Allergic contact dermatitis, unspecified cause (ICD-10 - L23.9) Take medications as directed. Complete all doses. Wash all belongings that came in contact with plant oils. May continue to use Calamine lotion. Patient verbalized understanding and agreement with treatment plan. [facility] Other 08-07-2023 Evaluation note* Encounter Date Diagnosis [...] to ER and Follow-up with me immediately. [facility] Other 07-07-2023 Evaluation note* Encounter Date Diagnosis Assessment Notes Treatment Notes Treatment Clinical Notes Sep, Overweight (ICD-10 - E66.3) Sep, Body mass index [BMI] 29.0-29.9, adult (ICD-10 - Z68.29) [facility] Other 06-29-2023 Evaluation note* Encounter Date Diagnosis Assessment Notes Treatment Notes Treatment Clinical Notes Aug, Acute contact dermatitis (ICD-10 - L25.9) Take medications as directed. Complete all doses. Wash all belongings that came in contact with plant oils. May continue to use Calamine lotion. Patient verbalized understanding and agreement with treatment plan. [facility] Other 04-05-2023 NoteOPERATIVE NOTE OPERATION DATE: 06/16/2022 PROCEDURE: Diagnostic laparoscopy. PREOPERATIVE DIAGNOSIS: Pelvic pain, left ovarian cyst. POSTOPERATIVE DIAGNOSIS: Pelvic pain, left ovarian cyst. ANESTHESIA: General. SURGEON: Brent Roland D.O. PUBLISHER ASSISTANT: MIRNA Harden URINE OUTPUT: Yellow and clear. [...] taken to Recovery Room in stable condition.[id number] Discharge instructions Patient Education 05/21/2022 10:45:43 Kidney Stones, Ixuj-sn-Mokw Kidney Stones Kidney stones are rock-like masses [...] Follow these instructions at home: Medicines Take sobt-ncu-byvhvsh and prescription medicines only as told by [...] 08/16/2008 Document Revised: 07/17/2019 Document Reviewed: 07/17/2019 [employer] Patient Education 2019 [employer]. Follow Up Care 05/11/2022 13:32:37 With:LUCY STILES, Kamaljit Rivas, URL Address: [address] [place] [address]- When: Unknown [facility] 01-03-2023 Evaluation note* Encounter Date Diagnosis Assessment Notes Treatment Notes Treatment Clinical Notes Mar, Pharyngitis, unspecified etiology (ICD-10 - J02.9) New medications as directed. Increase fluids, rest, good hand washing. OTC for fever/discomfort. Tooth brush in the tub puller or get a new one after on antibiotics for 24 hours. F/U if no improvement in the next 72 hours Mar, Vaginal yeast infection (ICD-10 - B37.31) Will treat empirically for yeast, discharge and sx reported consistent with that of vaginal candidiasis. Instructed patient to take as directed, advised that she should feel improvement in about 2 days. [facility] Other 11-02-2022 NoteChief Complaint Referral-Stress Incontinence HPI [...] E&M of New Patient Moderate 45-59 Min 18375 Measure Post Void residual urine and/or bladder capacity by US- non-imaging 43614 Urnls Dip Stick Auto w/o Microscopy POC 21963 Follow-up With When Contact Information [facility] [address] [place] [address] Business (1) Additional Instructions: for [...] Dipstick: Negative (01/13/22 08:33:00) (more content not included)...[facility]:Result Comment: Electronically Signed By: VERA KAUFMAN PA-C\.br\Date and Time Signed: 01/13/2211:04 [id number] Hospital Discharge instructions Patient Education 01/13/2022 11:03:33 [...] 02/14/2013 Document Revised: 10/18/2018 Document Reviewed: 10/18/2018 [employer] Patient Education 2020 [employer]. Follow Up Care 01/11/2022 14:36:11 With:[facility] Phil Address: [address] [place] [address] Business (1) When: Unknown Comments:for procedure as scheduled [facility] 01-26-2022 Evaluation note* Encounter Date Diagnosis Assessment [...] given in writting by [facility] Care At Home document. [facility] Other Evaluation + Plan note No data available for this section [facility] evaluation + Plan note Future Appointments Appointment Date:09/03/2022 08:00:00 AM Scheduled Provider:Kamaljit ROMERO MD Location:[facility] Appointment Type:URO Office Visit [facility] evaluation noteNo assessment information available [facility] Work Phone: Evaluation noteNo InformationNortPenn [facility] realSociable Other Evaluation note* Diagnosis Onset Date Resolution Status Chest pain acute Tachycardia acute [facility] Work Phone: Evaluation note* Diagnosis Insulin resistance Other abnormal glucose Metabolic syndrome Dysmetabolic Syndrome X Hormone imbalance documented in this encounter [facility] general Narrative - Reported* Type Description Date Medical History hypothyroidism Surgical History gallbladder removal Surgical History appendecs Surgical History ovarian cysts taken out in 2007 Surgical History hysterectomy Hospitalization History surgeries Hospitalization History child [facility] Other History general Narrative - Reported* Type Description Date Medical History hypothyroidism Surgical History gallbladder removal Surgical History appendecs Surgical History ovarian cysts taken out in 2007 Surgical History hysterectomy Hospitalization History surgeries Hospitalization History child Hospitalization History [facility] chest pain 11/2022 [facility] Other Hospital Discharge instructions Additional Instructions You have slightly elevated cholesterol level and prediabetes. Try to eat a healthier diet. Mediterranean diet is the best studied to improve health outcomes. I attached some instructions. Establish care with a primary care physician who will manage all your health issues.[facility] Work Phone: Progress note No data available for this section [facility] Advance Directives Advance Directive Response Recorded Date/ [...] Polanco MD Admit Provider, Attending Provider Active Survey Questionnaire Designer Relationship Specialty Start Date End Date Surya Hodges MD [address] [place] [id number] PCP - General Family Medicine 09/27/22 Team [...] content) DATE CREATED AUTHOR 05/23/2022 Obinna Cooley [facility] DATE CREATED AUTHOR AUTHOR'S ORGANIZ ATION 07/01/2022 [facility] DATE CREATED AUTHOR AUTHOR'S ORGANIZ ATION 12/18/2022 [facility] DATE CREATED AUTHOR AUTHOR'S ORGANIZ ATION 04/22/2023 [facility] dical Specialists [facility] FOR RECORDS PERTAINING TO PATIENTS WHO [...] BE BASED ON THE PRIMARY CLINICAL RECORDS. [facility] [employer] [facility]. provides no warranty or guarantee of the accuracy or completeness of information in this document.
[2023-06-10 16:16] LABS: Basophils Absolute Auto 0.1 10^3/uL (0.0-0.1); Basophils Percent Auto 0.6 % (0.2-2.0); Eosinophils Absolute Auto 0.2 10^3/uL (0.0-0.7); Eosinophils Percent Auto 1.9 % (0.9-7.0); Hematocrit 39.4 % (36.0-48.0); Hemoglobin 12.6 g/dL (12.0-16.0); Immature Granulocytes Abs Auto 0.02 10^3/uL (0.00-0.03); Immature Granulocytes Pct Auto 0.2 % (0.0-0.5); Lymphocytes Absolute Auto 3.1 10^3/uL (1.2-3.8); Lymphocytes Percent Auto 31.7 % (20.5-60.0); Mean Corpuscular Hemoglobin 27.2 pg (26.7-34.0); Mean Corpuscular Volume 85.1 fL (81.0-99.0); Monocytes Absolute Auto 0.6 10^3/uL (0.3-0.8); Monocytes Percent Auto 6.1 % (1.7-12.0); Neutrophils Absolute Auto 5.8 10^3/uL (1.4-6.5); Neutrophils Percent Auto 59.5 % (43.0-75.0); Platelet Count 426 10^3/uL (150-450); Red Blood Count 4.63 10^6/uL (4.20-5.40); Red Cell Distribution Width 14.6 % (11.0-15.0); White Blood Count 9.7 10^3/uL (4.0-11.0)
== END 2023-06-10 15:45 | disposition home or self-care (01) ==
LOC: LAB 15:45
PROVIDERS: PCP Obstetrics & Gynecology; Visit Provider Physician Assistant
DX: E88.810 Metabolic syndrome (principal); E34.9 Endocrine disorder, unspecified
CPT/HCPCS: 36415; 85025

== ENCOUNTER 2023-09-07 14:12 | Outpatient (OUT) | payer BC, SELFPAY ==
[2023-09-07 15:36] LABS: Basophils Percent Auto 0.5 % (0.2-2.0); Eosinophils Absolute Auto 0.1 10^3/uL (0.0-0.7); Eosinophils Percent Auto 1.6 % (0.9-7.0); Hematocrit 41.8 % (36.0-48.0); Hemoglobin 13.3 g/dL (12.0-16.0); Immature Granulocytes Abs Auto 0.02 10^3/uL (0.00-0.03); Immature Granulocytes Pct Auto 0.2 % (0.0-0.5); Lymphocytes Absolute Auto 2.4 10^3/uL (1.2-3.8); Lymphocytes Percent Auto 29.7 % (20.5-60.0); Mean Corpuscular HGB Conc 31.8 g/dL (29.9-35.2); Mean Corpuscular Hemoglobin 26.3 pg (26.7-34.0); Mean Corpuscular Volume 82.6 fL (81.0-99.0); Mean Platelet Volume 9.4 fL (9.5-13.5); Monocytes Absolute Auto 0.4 10^3/uL (0.3-0.8); Monocytes Percent Auto 5.5 % (1.7-12.0); Neutrophils Percent Auto 62.5 % (43.0-75.0); Platelet Count 381 10^3/uL (150-450); Red Blood Count 5.06 10^6/uL (4.20-5.40); Red Cell Distribution Width 13.2 % (11.0-15.0)
[2023-09-07 15:53] LABS: Alanine Aminotransferase 20 U/L (14-59); Albumin Level 3.9 g/dL (3.4-5.0); Alkaline Phosphatase 70 U/L (46-116); Anion Gap 13.8; Aspartate Amino Transferase 12 U/L (15-37); BUN Creatinine Ratio 10.5; Bilirubin Total 0.6 mg/dL (0.2-1.0); Calcium 8.7 mg/dL (8.5-10.1); Carbon Dioxide 27.2 mmol/L (21.0-32.0); Chloride 102 mmol/L (98-107); Cholesterol 226 mg/dL (<=200); Estimated GFR (African America >60 (>=60); Estimated GFR (Non-African Ame >60 (>=60); Globulin 3.8 g/dL; Glucose 89 mg/dL (74-106); HDL Cholesterol 57 mg/dL (40-60); Sodium 139 mmol/L (136-145); Total Protein 7.7 g/dL (6.4-8.2); Triglycerides 102 mg/dL (<=150); VLDL CHOLESTEROL 20.4 mg/dL
== END 2023-09-07 14:13 | disposition home or self-care (01) ==
LOC: LAB 14:15
PROVIDERS: PCP Family Medicine; Visit Provider Nurse Practitioner Family
DX: Z13.228 Encounter for screening for other metabolic disorders (principal); Z13.220 Encounter for screening for lipoid disorders; Z13.0 Encounter for screening for diseases of the blood and blood-forming organs and certain disorders involving the immune mechanism
CPT/HCPCS: 36415; 80053; 80061; 85025

== ENCOUNTER 2023-10-03 15:23 | Outpatient (OUT) | payer BC, SELFPAY ==
--- NOTE | 2023-10-03 15:29 | XR_ITS ---
[address] [address] Patient Name: SOO VAZQUEZ MRN: [id number] date: 1990 Sex: F Assigned Patient Location: [facility] Current Patient Location: Accession/Order Number: [id number] Exam Date: 10/03/2023 15:40 Report Date: 10/04/2023 15:08 At the request of: SURYA HODGES Procedure: XR knee LT 4V PROCEDURE: XR knee LT 4V HISTORY: Left Knee Pain M25.562 COMPARISON: None. FINDINGS: BONES:No fracture, acute abnormality, or significant arthropathy. SOFT TISSUES:No visible soft tissue swelling. EFFUSION:None visible. OTHER: Negative. XR/XR knee LT 4V IMPRESSION: 1. Normal examination. Electronically authenticated by: DAVID ALDANA Date: 10/04/2023 15:08
== END 2023-10-03 15:24 | disposition home or self-care (01) ==
LOC: RAD 15:24
PROVIDERS: PCP Family Medicine; Visit Provider Family Medicine
DX: M25.562 Pain in left knee (principal)
CPT/HCPCS: 73564

== ENCOUNTER 2024-05-17 07:26 | Outpatient (OUT) | payer BC, SELFPAY ==
--- OUTSIDE RECORDS SUMMARY | 2024-05-17 07:28 | XMS_ITS | CCD ---
Author Organization [facility] CliniSyia Care Team Providers Care Water Tender Name Role Phone Treasure Quezada Unavailable SURYA [...] COLEEN ., DR SEYMOUR Attending Unavailable LUOleg ., DEE Pena Attending Unavailable LUOleg .DEE Admitting Unavailable LUOleg [...] DR NAQVI Admitting Unavailable TRACIE, DR SURYA Damon Primary Care Unavailable BRINA [...] TRACIE, DR SURYA Damon Primary Care Unavailable HODGES, DR SURYA Damon Primary Care Unavailable LIMA, DR CROW Rivas Admitting Unavailable LIMA, DR CROW Rivas Consulting Unavailable LIMA, DR CROW Rivas Attending Unavailable MAGI BAUER Consulting Unavailable MICKEY GALVAN Consulting Unavailable RERE CARLISLE Consulting Unavailable MD Surya Hodges Primary Care Provider [phone] DO Marcio Steven Emergency Provider [phone] MD Baljinder Polanco Admit Provider MD Baljinder Polanco Attending Provider Treasure Quezada Attending Unavailable Treasure Quezada Admitting Unavailable Surya Hodges Primary Care Unavailable Baljinder Polanco Admitting Unavailable Surya Hodges Primary Care Unavailable Baljinder Polanco Attending Unavailable Jason Beasley Unavailable YESICA BECKER Attending Unavailable YESICA BECKER Attending Unavailable Surya Hodges MD Primary Care Provider [phone] Allergies Allergy Classification Reported Allergen(s) Allergy Type Date of Onset Reaction(s) Facility (20 sources) Azithromycin; Translations: [azithromycin] Drug Allergy 4 rash, Eruption of skin (disorder) [facility] (20 sources) whooping cough Propensity to adverse reactions 4 swelling injection site [facility] (15 sources) Bordetella pertussis filamentous hemagglutinin vaccine, inactivated / Bordetella pertussis fimbriae 2/3 vaccine, inactivated / Bordetella pertussis pertactin vaccine, inactivated / Bordetella pertussis toxoid vaccine, inactivated / diphtheria toxoid vaccine, inactivated / tetanus toxoid vaccine, inactivated; Translations: [diphtheria/pertu ssis, acel/tetanus adult] Drug Allergy 0 Unknown, Comment:amrit damon [facility] (20 sources) Clindamycin; Translations: [clindamycin] Drug Allergy 0 Rash [facility] Comment on above: Onset Date: 03/14/19 20 (2 sources) acellular pertussis vaccine, inactivated / diphtheria toxoid vaccine, inactivated / tetanus toxoid vaccine, inactivated Drug Allergy [facility] (2 sources) Clindamycin Drug Allergy [facility] (8 sources) vaccine adjuvant system, AS01B liposomal; Translations: [vaccine adjuvant system, AS01B liposomal] Allergy to substance 3 Rash [facility] (1 source) Clindamycin Drug Allergy 3 [facility] (1 source) Lkzxnou-Ylkpgl-Rb ell Pertussis Propensity to adverse reactions 3 Swelling [facility] Work Phone: (6 sources) diphtheria,pertus sis (acellular),te Allergy to substance 4 Comment:amrit damon [facility] Comment on above: Onset Date: 03/14/19 20 (5 sources) Penicillins Allergy to substance 4 Hives [facility] Medications Current Medications Medication Drug Class(es) Dates Sig (Normalized) Sig (Original) [id number] 60 actuat albuterol 0.09 mg/actuat metered dose [...] morning. 0 04/21/2023 Discontinued (Therapy completed) doxycycline monohydrate 100 mg oral tablet (3 sources) Tetracycline-class Drug Start: 02-15-2024 take 1 tablet by mouth twice daily Doxycycline Monohydrate 100 mg tablet Active 100 MG PO Twice daily 31 12February 15, 2024 12:00am Start: 03-11-2023 take [address] [facility] every twelve hours Doxycycline Hyclate 100 MG 1 capsule Orally Twice a day for 5 days Feb, Active estradiol 0.5 mg oral tablet (1 source) Estrogen Start: 01-13-2022 take 2 tablets by mouth once daily estradiol 0.5 mg Tab mg tab(s), Oral, Daily, Refills(s) 0 Start Date: 01/13/22 Status: Ordered fluconazole 150 mg oral tablet (14 sources) Azole Antifungal Start: 02-15-2024 Fluconazole 1 50 mg tablet Active 150 MG PO Q3D 2 February 15, 2024 12:00am Take 1st dose at onset of symptoms then repeat in 3 days if continued symptoms Start: 05-04-2023 End: 06-17-2023 Fluconazole 150 mg tablet Discontinued 150 MG PO Q3D May 04, 2023 12:00am June 17, 2023 1:15pm Start: 02-23-2023 [facility] Dif[facility]an 150 MG 1 tablet Orally weekly for 14 days Feb, Active Start: 03-16-2022 Diflucan 150 M G 1 tablet Orally x1 for 1 days Mar, Active Prozac (2 sources) Serotonin Reuptake Inhibitor Start: 01-13-2022 Prozac Oral, Daily, Refills(s) 0 Start Date: 01/13/22 Status: Ordered furosemide 20 mg oral tablet (20 sources) Loop Diuretic Start: 12-15-2023 take 1 tablet by mouth once daily Furosemide 20 mg tablet Active 0 .ROUTE .COMPLEX December 15, 2023 8:06am TAKE 1 TABLET BY MOUTH EVERY DAY Start: 07-11-2023 End: 12-15-2023 take 1 tablet by mouth once daily Furosemide 20 mg tablet Discontinued 20 MG PO Daily September 08, 2023 3:05pm December 15, 2023 8:06am levothyroxine sodium 0.175 mg oral tablet (20 sources) l-Thyroxine Start: 12-07-2022 take 1 tablet by mouth before mealtime levothyroxine (Synthroid, Levoxyl) 137 MCG tablet Take 137 mcg by mouth in the morning. Take before meals. 0 12/07/2022 Active Start: 12-01-2022 take 1 capsule by mo uth once daily Levothyroxine 137 mcg capsule Active 137 MCG PO Daily November 30, 2022 11:00pm Start: 11-30-2022 End: 06-17-2023 take 1 tablet by mouth once daily Levothyroxine 175 mcg tablet Discontinued 175 MCG PO Daily November 29, 2022 11:00pm June 17, 2023 1:15pm Start: 01-11-2022 Synthroid 150 mcg (0.15 mg) Tab Oral, Refills(s) 0 Start Date: 01/11/22 Status: Ordered take 1 tablet by tory th every twenty-four hours Synthroid 137 MCG 1 tablet Orally Once a day Active take 1 tablet by tory th every twenty-four hours Synthroid 175 MCG 1 tablet Orally Once a day Active liothyronine sodium 0.005 mg oral tablet (6 sources) l-Triiodothyronine Start: 06-17-2023 take 1 tablet by mouth once daily Liothyronine 5 mcg tablet Active 5 MCG PO Daily June 16, 2023 11:00pm take 1 tablet by otry th every twenty-four hours Liothyronine Sodium 5 MCG 1 tablet once a day Active Mounjaro 2.5 mg/0.5 mL subcutaneous solution (2 sources) Start: 01-13-2022 inject 1 mg by subcutaneous injection every week Mounjaro 2.5 mg/0.5 mL subcutaneous solution mg, SubCutaneous, qWeek, Refills(s) 0 Start Date: 01/13/22 Status: Ordered Zofran (1 source) Serotonin-3 Receptor Antagonist Start: 05-21-2022 Zofran Refills(s) 0 Start Date: 05/21/22 Status: Ordered phentermine hydrochloride 37.5 mg oral tablet (10 sources) Sympathomimetic Amine Anorectic Start: 02-15-2024 End: 03-15-2024 take 1 tablet by mouth once daily 30 minutes after breakfast Phentermine (Adipex-P) 37.5 mg tablet Active 37.5 MG PO Daily March 15, 2024 11:48am must administer 30 minutes before or 1-2 hours after breakfast Start: 11-18-2022 take 1 tablet by tory th once daily before breakfast Adipex-P 37.5 MG 1 tablet before breakfast Orally Once a day for 30 days Nov, Active Start: 10-18-2022 take 1 tablet by tory th once daily before breakfast Adipex-P 37.5 MG 1 tablet before breakfast Orally Once a day for 30 days Oct, Active Start: 09-17-2022 take 1 tablet by tory th once daily before breakfast Adipex-P 37.5 MG 1 tablet before breakfast Orally Once a day for 30 days Sep, Active Tirzepatide-Weight Management (Zepbound) 2.5 MG/0.5ML solution auto-injector [...] Drug Class(es) Dates Sig (Normalized) Sig (Original) buPROPion hydrochloride 100 mg oral tablet (2 sources) Aminoketone Start: 12-08-2023 End: 02-15-2024 take 2 tablets by mouth twice daily Bupropion Hcl 100 mg tablet Discontinued 200 MG PO Twice daily 60 January 26, 2024 11:27am February 15, 2024 1:07pm 12 hr buPROPion hydrochloride 90 mg / naltrexone hydrochloride 8 mg extended release oral tablet (6 sources) Opioid Antagonist, Aminoketone Start: 10-03-2023 End: 12-08-2023 take 2 tablets by mouth twice daily Naltrexone-Bupropi on (Contrave) 8-90 mg tablet extended release Discontinued 2 TAB PO Twice daily October 03, 2023 2:18pm December 08, 2023 7:13am busPIRone hydrochloride 5 mg oral tablet (4 sources) Start: 06-17-2023 End: 09-07-2023 take 1 tablet by mouth twice daily as needed for anxiety Buspirone 5 mg tablet Discontinued 5 MG PO Twice daily as needed for anxiety June 16, 2023 11:00pm September 07, 2023 12:46pm cephalexin 500 mg oral capsule (6 sources) Cephalosporin Antibacterial Start: 05-04-2023 End: 06-17-2023 take 1 capsule by mouth every eight hours Cephalexin 500 mg capsule Discontinued 500 MG PO Every 8 hours 01 10May 04, 2023 12:00am June 17, 2023 1:15pm 24 hr metFORMIN hydrochloride 500 mg extended release oral tablet (15 sources) Biguanide Start: 11-30-2022 End: 06-17-2023 take 1 tablet by mouth twice daily Metformin 500 mg tablet extended release 24 hr Discontinued 500 MG PO Twice daily 180 90 December 01, 2022 12:05pm June 17, 2023 1:15pm Start: 10-12-2022 End: 12-01-2022 take 1 tablet by mouth every twenty-four hours at bedtime Metformin 500 mg tablet extended release 24 hr Discontinued 500 MG PO Bedtime November 29, 2022 11:00pm December 01, 2022 12:05pm methylPREDNISolone 4 mg oral tablet (20 sources) Corticosteroid Start: 10-10-2023 End: 12-19-2023 take 1 tablet by mouth once Methylprednisolone (Medrol (Chad)) 4 mg tablets,dose pack Discontinued 0 PO per package directions 01 09December 02, 2023 10:05am December 19, 2023 10:01am PO PER PKG DIR Start: 11-05-2022 DEPO-Medrol Oct, 60 mg Start: [...] TOTAL OF 6 DAYS for 6 Active naltrexone hydrochloride 50 mg oral tablet (1 source) Opioid Antagonist Start: 12-08-2023 End: 02-15-2024 take 1 tablet by mouth twice daily Naltrexone 50 mg tablet Discontinued 25 MG PO Twice daily December 07, 2023 11:00pm February 15, 2024 1:07pm predniSONE 10 mg oral tablet (13 sources) Start: 12-19-2023 End: 02-15-2024 take 4 tablets by mouth once daily, then take 3 tablets by mouth once daily, then take 2 tablets by mouth once daily, then take 1 tablet by mouth once daily Prednisone 10 mg tablet Discontinued 10 MG PO As Directed December 18, 2023 11:00pm February 15, 2024 1:02pm 4 daily x 2 days, 3 daily x 2 days, 2 daily x 2 days, 1 daily x 6 days Start: 05-04-2023 End: 06-17-2023 take 1 tablet by mouth twice daily Prednisone 20 mg tablet Discontinued 20 MG PO Twice daily May 04, 2023 12:00am June 17, 2023 1:15pm Start: 11-05-2022 predniSONE 10 MG 4 tabs po daily x 2 days, 3 tabs daily x 2 days, 2 tabs daily x 2 days, 1 tab daily x 2 days Orally Once a day for 8 Oct, Active Start: 09-09-2022 predniSONE 10 MG 4 tabs po daily x 2 days, 3 tabs daily x 2 days, 2 tabs daily x 2 days, 1 tab daily x 2 days Orally Once a day for 8 Aug, Active Start: 04-08-2021 take 1 tablet by tory th every twelve hours predniSONE 20 MG 1 tablet Orally bid for 5 day(s) Mar, Active 24 hr propranolol hydrochloride 120 mg extended release oral capsule (16 sources) beta-Adrenergic Janie Start: 07-12-2023 End: 09-07-2023 take 1 capsule by mouth once daily Propranolol 120 mg capsule,extended release 24 hr Discontinued 120 MG PO Daily July 11, 2023 11:00pm September 07, 2023 12:46pm Start: 12-01-2022 End: 04-21-2023 take 1 capsule by mouth every twenty-four hours in the morning propranolol LA (Inderal LA) 120 MG 24 hr capsule Take 120 mg by mouth in the morning. 0 12/01/2022 04/21/2023 Discontinued (Therapy completed) Start: 12-01-2022 End: 06-17-2023 take 1 capsule by mouth once daily Propranolol 120 mg capsule,extended release 24 hr Discontinued 120 MG PO Daily November 30, 2022 11:00pm June 17, 2023 1:15pm triamcinolone acetonide 40 mg/ml injectable suspension (13 sources) Corticosteroid Start: 09-15-2022 Kenalog-40 Sep, 60 mg Problems Active Problems Problem Classification Problem Date Documented Da te Episodic/Chronic Abdominal pain (11 sources) Pelvic and perineal pain; Translations: [Unspecified abdominal pain] Onset: 3 Episodic Acute bronchitis (3 sources) Acute bronchitis; Translations: [Acute bronchitis due to other specified organisms] Episodic Allergic reactions (11 sources) Unspecified contact dermatitis, unspecified cause; Translations: [Allergic contact dermatitis] Episodic Anxiety disorders (17 sources) Anxiety; Translations: [Anxiety disorder] 01-13-2022 Chronic Calculus of urinary tract (10 sources) Ureteric stone; Translations: [Calculus of ureter] Onset: 3 Episodic Cardiac dysrhythmias (1 source) Supraventricular tachycardia; Translations: [SUPRAVENTRICULAR TACHYCARDIA] Onset: 2 Chronic Cardiac dysrhythmias (15 sources) Tachycardia; Translations: [Tachycardia, unspecified] Onset: 4 11-30-2022 Episodic Comment on above: Problem List clean-u p per request of Phys. EHR Cmte Chronic obstructive pulmonary disease and bronchiectasis (3 sources) Bronchitis, not specified as acute or chronic; Translations: [Bronchitis] Episodic E Codes: Adverse effects of medical drugs (6 sources) Allergic reaction caused by antibacterial agent; Translations: [Adverse effect of unspecified systemic antibiotic, initial encounter] 05-04-2023 Episodic Essential hypertension (7 sources) Essential hypertension; Translations: [Essential (primary) hypertension] Chronic Genitourinary symptoms and ill-defined conditions (12 sources) Stress incontinence (female) (male); Translations: [Female stress incontinence] Onset: 2 Chronic Genitourinary symptoms and ill-defined conditions (3 sources) Genitourinary symptoms; Translations: [Other symptoms and signs involving the genitourinary system] Episodic Headache; including migraine (10 sources) Migraine without aura, not refractory ; Translations: [Other migraine, not intractable, without status migrainosus] 09-07-2023 Chronic Inflammatory diseases of female pelvic organs [...] Translations: [Emotional lability] Episodic Nonspecific chest pain (9 sources) Chest pain, unspecified; Translations: [Chest pain] Episodic Comment on above: Problem List clean-u p per request of Phys. EHR Cmte Nutritional deficiencies (7 sources) Iron deficiency; Translations: [Iron deficiency] Episodic Other aftercare (1 source) Other termite exterminator (current) drug therapy; Translations: [OTH RETIREMENT CURRENT DRUG THERAPY] Onset: 3 Episodic Other aftercare (3 sources) Long-term current use of drug therapy; Translations: [Other termite exterminator (current) drug therapy] Episodic Other aftercare (3 [...] source) Other abnormalities of breathing Episodic Other non-traumatic joint disorders (5 sources) Pain in left knee; Translations: [Left knee pain] 10-03-2023 Episodic Other nutritional; endocrine; and metabolic disorders (20 sources) Obesity; Translations: [Obesity, unspecified] Chronic Other nutritional; endocrine; and metabolic disorders (1 source) Obesity, unspecified; Translations: [OBESITY UNSPECIFIED] Onset: 3 Chronic Other nutritional; endocrine; and metabolic disorders (8 sources) Obese class I; Translations: [Body mass index (BMI) 32.0-32.9, adult] 02-15-2024 Chronic Other nutritional; endocrine; and metabolic disorders [...] conditions (not mental disorders or infectious disease) (20 sources) Encounter for screening for malignant neoplasm of cervix; Translations: [Urine test negative] Onset: 2 Episodic Other upper respiratory disease (3 sources) Seasonal allergic rhinitis; Translations: [Other seasonal allergic rhinitis] Chronic Other upper respiratory infections (5 sources) Chronic sinusitis; Translations: [Chronic sinusitis, unspecified] 02-15-2024 Chronic Other upper respiratory infections (20 sources) [...] [Sprain of left ankle] Onset: 7 Episodic Superficial injury; contusion (4 sources) Nonvenomous insect bite of thigh without infection; Translations: [Insect bite (nonvenomous), right thigh, initial encounter] Onset: 7 12-07-2023 Episodic Thyroid disorders (20 sources) Hypothyroidism; Translations: [Hypothyroidism, unspecified] Onset: 2 01-11-2022 Chronic Thyroid disorders (5 sources) Disorder of thyroid gland; Translations: [Disorder of thyroid, unspecified] 06-17-2023 Episodic Comment on above: Problem List clean-u p per request of Phys. EHR Cmte Unclassified (1 source) Tachycardia, unspecified; Translations: [Tachycardia, [...] Translations: [Abnormal weight gain] Onset: 11-03-2021 Episodic Unclassified (2 sources) Vaginal yeast infection B37.31 Unclassified (3 sources) Acute candidiasis of vulva and vagina; Translations: [Acute candidiasis of vulva and vagina] Results Test Name Value Interpretation Reference Range Facility Basophils Auto (Bld) [#/Vol] on 09-07-2023 Basophils (Bld) [#/Vol] 0.0 10 3/uL 0.0-0.1 [facility] Basophils/100 WBC Auto (Bld) on 09-07-2023 Basophils/100 WBC (Bld) 0.5 % 0.2-2.0 [facility] Cholesterol in LDL Calc [Mas s/Vol]on 09-07-2023 Cholesterol in LDL [Mass/Vol] 149.0 mg/dL [facility] Comment on above: <100 mg/dl [id number] 0-129 mg/dl NEAR OR ABOVE [id number] mg/dl BORDERLINE [id number] mg/dl HIGH>190 mg/dl VERY HIGH Cholesterol in VLDL Calc [Ma ss/Vol]on 09-07-2023 Cholesterol in VLDL [Mass/Vol] 20.4 mg/dL [facility] Eosinophils/100 WBC Auto (Bl d)on 09-07-2023 Eosinophils/100 WBC (Bld) 1.6 % 0.9-7.0 [facility] Erythrocyte distribution wid th Auto (RBC) [Ratio]on 09-07-2023 Erythrocyte distribution width (RBC) [Ratio] 13.2 % 11.0-15.0 [facility] Estimated glomerular filtrat ion rate (GFR) non- Americanon 09-07-2023 GFR/1.73 sq M.predicted among non-blacks MDRD (S/P/Bld) [Vol rate/Area] mL/min/{1.73_m2} >=60 [facility] Globulin Calc (S) [Mass/Vol] on 09-07-2023 Globulin (S) [Mass/Vol] 3.8 g/dL [facility] Hematocrit Auto (Bld) [Volum e fraction]on 09-07-2023 Hematocrit (Bld) [Volume fraction] 41.8 % 36.0-48.0 [facility] Hemoglobin [Mass/volume] in Bloodon 09-07-2023 Hemoglobin (Bld) [Mass/Vol] 13.3 g/dL 12.0-16.0 [facility] Laboratory - Chemistry and C hemistry - challengeon 09-07-2023 Albumin [Mass/Vol] 3.9 g/dL 3.4-5.0 [facility] ALP [Catalytic activity/Vol] 70 U/L 46-116 [facility] ALT [Catalytic activity/Vol] 20 U/L 14-59 [facility] AST [Catalytic activity/Vol] 12 U/L Low 15-37 [facility] Bilirubin [Mass/Vol] 0.6 mg/dL 0.2-1.0 [facility] Calcium [Mass/Vol] 8.7 mg/dL 8.5-10.1 [facility] Chloride [Moles/Vol] 102 mmol/L 98-107 [facility] Cholesterol [Mass/Vol] 226 mg/dL High <=200 [facility] Cholesterol in HDL [Mass/Vol] 57 mg/dL 40-60 [facility] Comment on above: > or =60 mg/dl - LOW CARDIOVASCULAR RISK<40 mg/dl - HIGH CARDIOVASCULAR RISK CO2 [Moles/Vol] 27.2 mmol/L 21.0-32.0 [facility] Creatinine [Mass/Vol] 0.86 mg/dL 0.55-1.02 [facility] GFR/1.73 sq M.predicted MDRD (S/P/Bld) [Vol rate/Area] mL/min/{1.73_m2} >=60 [facility] Glucose [Mass/Vol] 89 mg/dL 74-106 [facility] Potassium [Moles/Vol] 4.0 mmol/L 3.5-5.1 [facility] Protein [Mass/Vol] 7.7 g/dL 6.4-8.2 [facility] Sodium [Moles/Vol] 139 mmol/L 136-145 [facility] Triglyceride [Mass/Vol] 102 mg/dL <=150 [facility] Urea nitrogen [Mass/Vol] 9.0 mg/dL 7.0-18.0 [facility] Urea nitrogen/Creatinine [Mass ratio] 10.5 mg/mg [facility] Laboratory - Hematology and Cell countson 09-07-2023 Immature granulocytes/100 WBC (Bld) 0.2 % 0.0-0.5 [facility] Leukocytes [#/volume] correc jocelynn for nucleated erythrocytes in Blood by Automated counon 09-07-2023 WBC corrected for nucl RBC Auto (Bld) [#/Vol] 8.0 10 3/uL 4.0-11.0 [facility] Lymphocytes Auto (Bld) [#/Vo l]on 09-07-2023 Lymphocytes (Bld) [#/Vol] 2.4 10 3/uL 1.2-3.8 [facility] Lymphocytes/100 WBC Auto (Bl d)on 09-07-2023 Lymphocytes/100 WBC (Bld) 29.7 % 20.5-60.0 [facility] MCH Auto (RBC) [Entitic mass ]on 09-07-2023 MCH (RBC) [Entitic mass] 26.3 pg Low 26.7-34.0 [facility] MCHC Auto (RBC) [Mass/Vol]on 09-07-2023 MCHC (RBC) [Mass/Vol] 31.8 g/dL 29.9-35.2 [facility] MCV Auto (RBC) [Entitic vol] on 09-07-2023 MCV (RBC) [Entitic vol] 82.6 fL 81.0-99.0 [facility] Monocytes Auto (Bld) [#/Vol] on 09-07-2023 Monocytes (Bld) [#/Vol] 0.4 10 3/uL 0.3-0.8 [facility] Monocytes/100 WBC Auto (Bld) on 09-07-2023 Monocytes/100 WBC (Bld) 5.5 % 1.7-12.0 [facility] Neutrophils Auto (Bld) [#/Vo l]on 09-07-2023 Neutrophils (Bld) [#/Vol] 5.0 10 3/uL 1.4-6.5 [facility] Neutrophils/100 WBC Auto (Bl d)on 09-07-2023 Neutrophils/100 WBC (Bld) 62.5 % 43.0-75.0 [facility] No Panel Informationon 09-06 Eosinophils # (Auto) 0.1 10 3/uL 0.0-0.7 [facility] Immature Granulocyte # (Auto) 0.02 10 3/uL 0.00-0.03 [facility] Platelet mean volume Auto (B ld) [Entitic vol]on 09-07-2023 Platelet mean volume (Bld) [Entitic vol] 9.4 fL Low 9.5-13.5 [facility] Platelets Auto (Bld) [#/Vol] on 09-07-2023 Platelets (Bld) [#/Vol] 381 10 3/uL 150-450 [facility] RBC Auto (Bld) [#/Vol]on RBC (Bld) [#/Vol] 5.06 10 6/uL 4.20-5.40 [facility] Serum or plasma albumin/glob ulin mass ratioon 09-07-2023 Albumin/Globulin [Mass ratio] 1.0 {ratio} [facility] Serum or plasma anion gap de terminationon 09-07-2023 Anion gap [Moles/Vol] 13.8 [facility] Serum or plasma total choles terol/high density lipoprotein (HDL) cholesterol mass linwood 09-07-2023 Cholesterol.total/Chol esterol in HDL [Mass ratio] 4.0 {ratio} [facility] Comment on above: 3.3 - 4.4 LOW RISK4. 4 - 7.1 AVERAGE RISK7.1 - 11.0 MODERATE RISK>11.0 HIGH RISK Basophils Auto (Bld) [#/Vol] on 05-02-2023 Basophils (Bld) [#/Vol] 0.1 10 3/uL 0.0-0.1 [facility] Basophils/100 WBC Auto (Bld) on 05-02-2023 Basophils/100 WBC (Bld) 0.4 % 0.2-2.0 [facility] Eosinophils/100 WBC Auto (Bl d)on 05-02-2023 Eosinophils/100 WBC (Bld) 0.1 % 0.9-7.0 [facility] Erythrocyte distribution wid th Auto (RBC) [Ratio]on 05-02-2023 Erythrocyte distribution width (RBC) [Ratio] 13.1 % 11.0-15.0 [facility] Estimated glomerular filtrat ion rate (GFR) non- Americanon 05-02-2023 GFR/1.73 sq M.predicted among non-blacks MDRD (S/P/Bld) [Vol rate/Area] mL/min/{1.73_m2} >=60 [facility] Hematocrit Auto (Bld) [Volum e fraction]on 05-02-2023 Hematocrit (Bld) [Volume fraction] 41.6 % 36.0-48.0 [facility] Hemoglobin [Mass/volume] in Bloodon 05-02-2023 Hemoglobin (Bld) [Mass/Vol] 13.6 g/dL 12.0-16.0 [facility] Laboratory - Chemistry and C hemistry - challengeon 05-02-2023 Calcium [Mass/Vol] 8.7 mg/dL 8.5-10.1 [facility] Chloride [Moles/Vol] 101 mmol/L 98-107 [facility] CO2 [Moles/Vol] 24.8 mmol/L 21.0-32.0 [facility] Creatinine [Mass/Vol] 0.89 mg/dL 0.55-1.02 [facility] GFR/1.73 sq M.predicted MDRD (S/P/Bld) [Vol rate/Area] mL/min/{1.73_m2} >=60 [facility] Glucose [Mass/Vol] 112 mg/dL 74-106 [facility] Potassium [Moles/Vol] 4.0 mmol/L 3.5-5.1 [facility] Sodium [Moles/Vol] 137 mmol/L 136-145 [facility] Urea nitrogen [Mass/Vol] 5.0 mg/dL 7.0-18.0 [facility] Urea nitrogen/Creatinine [Mass ratio] 5.6 mg/mg [facility] Laboratory - Hematology and Cell countson 05-02-2023 Immature granulocytes/100 WBC (Bld) 0.3 % 0.0-0.5 [facility] - Microbiology an d Antimicrobial susceptibilityon 05-02-2023 S. pyogenes Ag Ql (Unsp spec) Positive [facility] SARS-CoV-2 (COVID-19) RNA LEO+probe Ql (Unsp spec) Negative NEGATIVE [facility] Comment on above: This test has not be en FDA cleared or approved, but has beenauthorized by the FDA under an Emergency Use Authorization(EUA) for use by authorized laboratories certified underCLIA that meet the requirements to perform moderate or highcomplexity testing. This test has been authorized only forthe detection of proteins from SARS-CoV-2, not for any otherviruses or pathogens. The emergency use of this test isauthorized for the duration of the declaration thatcircumstances exist justifying the authorization ofemergency use of in vitro diagnostic tests for detectionand/or diagnosis of Covid-19 under section 564(b)(1) of the[facility], [place] 360bbb-3(b)(1), unless the declaration isterminated or authorization is revoked sooner. Leukocytes [#/volume] correc jocelynn for nucleated erythrocytes in Blood by Automated counon 05-02-2023 WBC corrected for nucl RBC Auto (Bld) [#/Vol] 12.4 10 3/uL 4.0-11.0 [facility] Lymphocytes Auto (Bld) [#/Vo l]on 05-02-2023 Lymphocytes (Bld) [#/Vol] 1.0 10 3/uL 1.2-3.8 [facility] Lymphocytes/100 WBC Auto (Bl d)on 05-02-2023 Lymphocytes/100 WBC (Bld) 7.9 % 20.5-60.0 [facility] MCH Auto (RBC) [Entitic mass ]on 05-02-2023 MCH (RBC) [Entitic mass] 27.9 pg 26.7-34.0 [facility] MCHC Auto (RBC) [Mass/Vol]on 05-02-2023 MCHC (RBC) [Mass/Vol] 32.7 g/dL 29.9-35.2 [facility] MCV Auto (RBC) [Entitic vol] on 05-02-2023 MCV (RBC) [Entitic vol] 85.2 fL 81.0-99.0 [facility] Monocytes Auto (Bld) [#/Vol] on 05-02-2023 Monocytes (Bld) [#/Vol] 0.8 10 3/uL 0.3-0.8 [facility] Monocytes/100 WBC Auto (Bld) on 05-02-2023 Monocytes/100 WBC (Bld) 6.3 % 1.7-12.0 [facility] Neutrophils Auto (Bld) [#/Vo l]on 05-02-2023 Neutrophils (Bld) [#/Vol] 10.5 10 3/uL 1.4-6.5 [facility] Neutrophils/100 WBC Auto (Bl d)on 05-02-2023 Neutrophils/100 WBC (Bld) 85.0 % 43.0-75.0 [facility] No Panel Informationon 05-02 Bedside Influenza Type A Antigen Negative [facility] Comment on above: Negative for Flu A p rotein antigen. Infection due to Flu Acannot be ruled out. Flu A antigen in the sample may bebelow the detection limit of the test. Bedside Influenza Type B Antigen Negative [facility] Comment on above: Negative for Flu B p rotein antigen. Infection due to Flu Bcannot be ruled out. Flu B antigen in the sample may bebelow the detection limit of the test. Eosinophils # (Auto) 0.0 10 3/uL 0.0-0.7 [facility] Immature Granulocyte # (Auto) 0.04 10 3/uL 0.00-0.03 [facility] Monoscreen Negative NEGATIVE [facility] Platelet mean volume Auto (B ld) [Entitic vol]on 05-02-2023 Platelet mean volume (Bld) [Entitic vol] 8.9 fL 9.5-13.5 [facility] Platelets Auto (Bld) [#/Vol] on 05-02-2023 Platelets (Bld) [#/Vol] 369 10 3/uL 150-450 [facility] RBC Auto (Bld) [#/Vol]on RBC (Bld) [#/Vol] 4.88 10 6/uL 4.20-5.40 [facility] Serum or plasma anion gap de terminationon 05-02-2023 Anion gap [Moles/Vol] 15.2 mmol/L [facility] A1C with Estimated Average G luon 12-01-2022 Glucose [Mass/Vol] 120 mg/dL Normal [facility] Comment on above: Result Comment: PERF ORMED BY: [facility] [address] [place] [address] PATHOLOGIST [employer]OMEMAK[employer] ISAIAS DE LA CRUZ M.D. Performed By: #### L IPID, HS TROP, A1C WT eA ####[facility] [id number] [place] [address] [facility] HbA1c (Bld) [Mass fraction] 5.8 % High 4.3-5.6 [facility] Comment on above: Result Comment: Incr eased risk for diabetes: 5.7 - 6.4 diabetes: >6.4 glycemic control for adults with diabetes: <7.0 Performed By: #### L IPID, HS TROP, A1C WTH eA ####[facility] [id number] [place] [address] [facility] Cholesterol [Mass/volume] in Serum or PlasmaOrdered By: Baljinder Polanco on 12-01-2022 Cholesterol [Mass/Vol] 214 mg/dL 140-200 [facility] Comment on above: Chol less than 200 m g/dl low riskChol 201-239 mg/dl borderline riskChol 240 mg/dl and greater high risk Cholesterol in LDL Calc [Mas s/Vol]Ordered By: Baljinder Polanco on 12-01-2022 Cholesterol in LDL [Mass/Vol] 132 mg/dL 0-100 [facility] Comment on above: LDL ATP III CLASSIFI CATIONLDL less than 100 mg/dL OptimalLDL 100-129 mg/dL Near or above optimalLDL 130-159 mg/dL Borderline highLDL 160-189 mg/dL HighLDL greater than 189 mg/dL Very high Cholesterol in VLDL Calc [Ma ss/Vol]Ordered By: Baljinder Polanco on 12-01-2022 Cholesterol in VLDL [Mass/Vol] 27 mg/dL [facility] ECH echo transthoracicon ECH echo transthoracic [facility] [place] [address] Echocardiogram Signed Patient: Karlene Alfaro MR#: [id number] : 1990 Acct:[id number] Age/Sex: 32 / F ADM Date: 11/30/22 Loc: Room: [address] [place] [address] Type: ADM INOo Attending Dr: Baljinder Polanco MD Ordering Provider: Baljinder Polanco MD Date of Service: 12/01/22 [facility] echo transthoracic: chest pain, abnormal troponins Copies to: MD Hammad Ambrose MD, [facility] Height: 69 in Weight: 197 lb Performed [...] 12/01/22 1120 Signed By: Hammad Adam MD, [facility] 12/01/22 1643 Normal [facility] Glucose mean value [Mass/vol ume] in Blood Estimated from glycated hemoglobinOrdered By: Baljinder Polanco on 12-01-2022 Average glucose Estimated from glycated hemoglobin (Bld) [Mass/Vol] 120 mg/dL [facility] Hemoglobin A1c percentageOrd ered By: Baljinder Polanco on 12-01-2022 HbA1c (Bld) [Mass fraction] 5.8 % 4.3-5.6 [facility] Comment on above: Increased risk for d iabetes: 5.7 - 6.4diabetes: >6.4glycemic control for adults with diabetes: <7.0 Lipid Panelon 12-01-2022 Cholesterol [Mass/Vol] 214 mg/dL High 140-200 [facility] Comment on above: Result Comment: Chol less than 200 mg/dl low risk Chol 201-239 mg/dl borderline risk Chol 240 mg/dl and greater high risk Performed By: #### L IPID, HS TROP, A1C WTH eA ####[address] [place] [address] [facility] Cholesterol in HDL [Mass/Vol] 54 mg/dL Normal 23-92 [facility] Comment on above: Result Comment: HDL CHOL ATP-III CLASSIFICATION Cardiovascular Risk HDL > or equal to 60 mg/dL LOW HDL < 40 mg/dL HIGH Performed By: #### L IPID, HS TROP, A1C WTH eA ####[address] [address] [facility] Cholesterol.total/Chol esterol in HDL [Mass ratio] 4.0 {ratio} Normal <5.0 [facility] Comment on above: Result Comment: PERF ORMED BY: [facility] [address] [place] [address] PATHOLOGIST HOMEMAK[employer] ISAIAS DE LA CRUZ M.D. Performed By: #### L IPID, HS TROP, A1C WTH eA ####[address] [place] [address] [facility] LDL Cholesterol,Calculated 132 mg/dL High 0-100 [facility] Comment on above: Result Comment: LDL ATP III CLASSIFICATION LDL less than 100 mg/dL Optimal LDL 100-129 mg/dL Near or above optimal LDL 130-159 mg/dL Borderline high LDL 160-189 mg/dL High LDL greater than 189 mg/dL Very high Performed By: #### L IPID, HS TROP, A1C WTH eA ####[address] [address] [place] Triglyceride w/Reflex 139 mg/dL Normal 0-149 [facility] Comment on above: Result Comment: TRIG ATP III CLASSIFICATION TRIG less than 150 mg/dL Normal TRIG 150-199 mg/dL Borderline high TRIG 200-500 mg/dL High TRIG greater than 500 mg/dL Very high Standard traceable to the Center for Disease Conrtrol and Prevention (CDC) test method. Performed By: #### L IPID, HS TROP, A1C WTH eA ####[facility] [id number] [place] [id number] [facility] VLDL CHOLESTEROL 27 mg/dL Normal [facility] Comment on above: Performed By: #### L IPID, HS TROP, A1C WT eA ####[facility] [id number] Serum or plasma high density lipoprotein (HDL) cholesterol measurementOrdered By: Baljinder Polanco on 12-01-2022 Cholesterol in HDL [Mass/Vol] 54 mg/dL 23-92 [facility] Comment on above: HDL CHOL ATP-III CLA SSIFICATION Cardiovascular RiskHDL > or equal to 60 mg/dL LOWHDL < 40 mg/dL HIGH Serum or plasma total choles terol/high density lipoprotein (HDL) cholesterol mass ratOrdered By: Baljinder Polanco on 12-01-2022 Cholesterol.total/Chol esterol in HDL [Mass ratio] 4.0 {ratio} <5.0 [facility] Triglyceride [Mass/volume] i n Serum or PlasmaOrdered By: Baljinder Polanco on 12-01-2022 Triglyceride [Mass/Vol] 139 mg/dL 0-149 [facility] Comment on above: TRIG ATP III CLASSIF ICATIONTRIG less than 150 mg/dL NormalTRIG 150-199 mg/dL Borderline highTRIG 200-500 mg/dL High TRIG greater than 500 mg/dL Very highStandard traceable to the Center for Disease Conrtrol and Prevention (CDC) test method. Troponin I High Sensitivityo n 12-01-2022 Troponin I High Sensitivity 27.1 pg/mL High 0.0-15.0 [facility] Comment on above: Result Comment: PERF ORMED BY: [facility] [address] [place] [address] PATHOLOGIST HOMEMAK[employer] ISAIAS DE LA CRUZ M.D. Performed By: #### L IPID, HS TROP, A1C WTH eA ####[facility] [id number] Troponin I.cardiac [Mass/vol ume] in Serum or Plasma by Detection limit <= 0.01 ng/Ordered By: Baljinder Polanco on 12-01-2022 Troponin I.cardiac DL <= 0.01 ng/mL [Mass/Vol] 27.1 pg/mL 0.0-15.0 [facility] Activated partial thrombopla stin time (aPTT) in platelet poor plasma by coagulation aOrdered By: Marcio Steven on 11-30-2022 aPTT Coag (PPP) [Time] 32.4 s 25.1-36.5 [facility] Comment on above: A hematocrit value g reater than 55% may lead to inaccurate results in coagulation testing. Patients having hematocrit values >55% require a special collection tube for coagulation studies. Please contact the laboratory at [phone] for redraw instructions. Alanine aminotransferase [En zymatic activity/volume] in Serum or PlasmaOrdered By: Marcio Steven on 11-30-2022 ALT [Catalytic activity/Vol] 16 U/L Normal 7-52 [facility] Comment on above: Performed By: #### U A #### [facility] [address] [place] [id number] [place] Albumin [Mass/volume] in Ser um or Plasma by Bromocresol green (BCG) dye binding methoOrdered By: Marcio Steven on 11-30-2022 Albumin BCG dye [Mass/Vol] 4.4 g/dL 3.5-5.7 [facility] Alkaline phosphatase [Enzyma tic activity/volume] in Serum or PlasmaOrdered By: Marcio Steven on 11-30-2022 ALP [Catalytic activity/Vol] 73 U/L Normal 34-104 [facility] Comment on above: Performed By: #### U A #### [facility] [address] [place] [address] [place] Aspartate aminotransferase [ Enzymatic activity/volume] in Serum or PlasmaOrdered By: Marcio Steven on 11-30-2022 AST [Catalytic activity/Vol] 11 U/L Low 13-39 [facility] Comment on above: Performed By: #### U A #### [address] Automated basophil %Ordered By: Marcio Sommerszi on 11-30-2022 Basophils/100 WBC (Bld) 0.8 % Normal . [facility] Comment on above: Performed By: #### B RIVER TESTER, CK, CBC, HS TROP #### [address] Automated basophil countOrde red By: Marcio Steven on 11-30-2022 Basophils (Bld) [#/Vol] 0.1 10*3/uL Normal 0.0-0.2 [facility] Comment on above: Result Comment: PERF ORMED BY: [place] [address] PATHOLOGIST HOMEMAKER [employer] ISAIAS DE LA CRUZ M.D. Performed By: #### B RIVER TESTER, CK, CBC, HS TROP #### [address] Automated blood monocyte cou ntOrdered By: Marcio Steven on 11-30-2022 Monocytes (Bld) [#/Vol] 0.6 10*3/uL Normal 0.0-0.8 [facility] Comment on above: Performed By: #### B RIVER TESTER, CK, CBC, HS TROP #### [address] Automated eosinophil %Ordere d By: Marcio Tenisha on 11-30-2022 Eosinophils/100 WBC (Bld) 0.9 % Normal . [facility] Comment on above: Performed By: #### B RIVER TESTER, CK, CBC, HS TROP #### [address] Automated eosinophil countOr dered By: Marcio Steven on 11-30-2022 Eosinophils (Bld) [#/Vol] 0.1 10*3/uL Normal 0.0-0.45 [facility] Comment on above: Performed By: #### B RIVER TESTER, CK, CBC, HS TROP #### [address] Automated monocyte %Ordered By: Marcio Steven on 11-30-2022 Monocytes/100 WBC (Bld) 6.8 % Normal . [facility] Comment on above: Performed By: #### B RIVER TESTER, CK, CBC, HS TROP #### [address] Automated neutrophil %Ordere d By: Marcio Steven on 11-30-2022 Neutrophils/100 WBC (Bld) 59.2 % Normal . [facility] Comment on above: Performed By: #### B RIVER TESTER, CK, CBC, HS TROP #### [address] BNP ser/plasOrdered By: Jack Steven on 11-30-2022 Natriuretic peptide B (Bld) [Mass/Vol] 13.0 pg/mL Normal 5-100 [facility] Comment on above: Result Comment: PERF ORMED BY: [place] [address] PATHOLOGIST HOMEMAKER [employer] ISAIAS DE LA CRUZ M.D. Performed By: #### B RIVER TESTER, CK, CBC, HS TROP #### [address] Basic Metabolic Panelon 11-12 Creatinine Clr Calc Pharmacy 114.08 Normal [facility] Comment on above: Performed By: #### U A #### [address] Calcium [Mass/Vol] 9.9325097 mg/dL Normal 8.6-10 .3 mg/dL [facility] Other CO2 [Moles/Vol] 23.94919236 mmol/L Normal 21.0-3 1.0 mmol/L [facility] Other Creatinine [Mass/Vol] 0.95251831 mg/dL Normal 0. 60-1.20 mg/dL [facility] Other GFR/1.73 sq M.predicted MDRD (S/P/Bld) [Vol rate/Area] mL/min/{1.73_m2} Normal [facility] [email or web address] Other Comment on above: Performed By: #### U A #### [address] Potassium [Moles/Vol] 4.14198510 mmol/L Normal 3 .5-5.1 mmol/L [facility] [email or web address] Other Basic Metabolic PanelOrdered By: Marcio Steven on 11-30-2022 Chloride [Moles/Vol] 104 mmol/L Normal 98-107 [facility] Comment on above: Performed By: #### U A #### [address] Glucose [Mass/Vol] 77 mg/dL Normal 70-100 [facility] Comment on above: ADA recommended refe rence rangeRandom Glucose Reference Range is dependent on time and content of last meal. Glucose of more than 200 mg/dL in a nonstressed, ambulatory subject supports the diagnosis of Diabetes Mellitus. Result Comment: [place] om Glucose Reference Range is dependent on time and content of last meal. Glucose of more than 200 mg/dL in a nonstressed, ambulatory subject supports the diagnosis of Diabetes Mellitus. ADA recommended reference range Performed By: #### U A #### [place] [address] [place] Sodium [Moles/Vol] 138 mmol/L Normal 136-145 [facility] Comment on above: Performed By: #### U A #### [place] [address] [place] Urea nitrogen [Mass/Vol] 9 mg/dL Normal 7-25 [facility] Comment on above: Performed By: #### U A #### [address] Bilirubin Test strip Ql (U)O rdered By: Marcio Steven on 11-30-2022 Bilirubin Ql (U) Negative Negative [facility] Bilirubin.direct [Mass/volum e] in Serum or PlasmaOrdered By: Marcio Steven on 11-30-2022 Bilirubin.direct [Mass/Vol] 0.00 mg/dL 0.03-0.18 [facility] Comment on above: If the DBIL is less than 0.1, IBIL is not able to becalculated. Bilirubin.total [Mass/volume ] in Serum or PlasmaOrdered By: Marcio Steven on 11-30-2022 Bilirubin [Mass/Vol] 0.9 mg/dL Normal 0.3-1.0 [facility] Comment on above: Performed By: #### U A #### [address] BioFire Not Detectedon 11-30 BioFire Not Detected Not detected Normal Not Detecte [facility] Comment on above: Result Comment: This is a duplicate RP2.1 COVID (PCR) result to be used for statistical tracking purpose only. PERFORMED BY: [place] [address] PATHOLOGIST HOMEMAKER [employer] ISAIAS DE LA CRUZ M.D. Performed By: #### R ZULEMA PANEL UPP., BIOFIRECOVNOTDE #### [address] COVID-19 Detected/Not Detect edOrdered By: Marcio Steven on 11-30-2022 SARS-CoV-2 (COVID-19) RNA LEO+non-probe Ql (Nph) Not detected Not Detecte [facility] Comment on above: This is a duplicate RP2.1 COVID (PCR) result to be used for statistical tracking purpose only. Calcium [Mass/volume] in Ser um or PlasmaOrdered By: Marcio Steven on 11-30-2022 Calcium [Mass/Vol] 9.5 mg/dL Normal 8.6-10.3 [facility] Comment on above: Performed By: #### U A #### [address] Carbon dioxide, total [Moles /volume] in Serum or PlasmaOrdered By: Marcio Steven on 11-30-2022 CO2 [Moles/Vol] 23.9 mmol/L Normal 21.0-31.0 [facility] Comment on above: Performed By: #### U A #### [facility] [address] Color Auto (U)Ordered By: Baljeet Steven on 11-30-2022 Color (U) Yellow Yellow [facility] Complete Blood Count Auto Di ffon 11-30-2022 Mean Corpuscular HGB Conc 33.3 g/dL Normal 32.0-35.0 [facility] Comment on above: Performed By: #### B RIVER TESTER, CK, CBC, HS TROP #### [facility] [address] Monocytes/100 WBC (Bld) 19.22 % Normal 0.00-20.00 [facility] Comment on above: Performed By: #### B RIVER TESTER, CK, CBC, HS TROP #### [facility] [address] NRBC% 0.2 /100{WBC} Normal 0-0.5 [facility] Comment on above: Performed By: #### B RIVER TESTER, CK, CBC, HS TROP #### [facility] [address] Basophils (Bld) [#/Vol] 0.794080842 10*3/uL Normal 0.0-0.2 10*3/uL naaptol [facility] [email or web address] Other Basophils/100 WBC (Bld) 0.800 % . % [facility] Other Eosinophils (Bld) [#/Vol] 0.662844684 10*3/uL Normal 0.0-0.45 10*3/uL [facility] Other Eosinophils/100 WBC (Bld) 0.900 % . % [facility] Other Erythrocyte distribution width (RBC) [Ratio] 14.300 % Normal 11.9-15.3 % [facility] Other Hematocrit (Bld) [Volume fraction] 41.000 % Normal 34.0-46.4 % [facility] Other Hemoglobin (Bld) [Mass/Vol] 13.004438 g/dL Normal 11.8-15.4 g/dL [facility] Other Lymphocytes (Bld) [#/Vol] 2.431493763 10*3/uL Normal 1.00-4.8 10*3/uL [facility] Other Lymphocytes/100 WBC (Bld) 32.300 % . % [facility] Other MCH (RBC) [Entitic mass] 27.0000 pg Normal 24.7-34.3 pg [facility] Other MCV (RBC) [Entitic vol] 81.0000 fL Normal 80-100 fL [facility] Other Monocytes (Bld) [#/Vol] 0.652231621 10*3/uL Normal 0.0-0.8 10*3/uL [facility] Other Monocytes/100 WBC (Bld) 6.800 % . % [facility] Other Neutrophils (Bld) [#/Vol] 4.093177425 10*3/uL Normal 1.8-7.7 10*3/uL [facility] Other Neutrophils/100 WBC (Bld) 59.200 % . % [facility] Other Platelet mean volume (Bld) [Entitic vol] 7.2000 fL Normal 6.3-10.7 fL [facility] Other WBC (Bld) [#/Vol] 8.282757175 10*3/uL Normal 3.8 -11.6 10*3/uL [facility] Other Complete Blood Count Auto Diff 8.2 10*3/uL Normal 3.8-11.6 10*3/uL [facility] Other Complete Blood Count Auto Diff 33.3 g/dL Normal 32.0-35.0 g/dL [facility] Other Complete Blood Count Auto Diff 0.2 /100{WBC} Normal 0-0.5 /100{WBC} [facility] [email or web address] Other Complete Blood Count Auto Di ffOrdered By: Marcio Steven on 11-30-2022 Platelets (Bld) [#/Vol] 368 10*3/uL Normal 150-450 [facility] Comment on above: Performed By: #### B RIVER TESTER, CK, CBC, HS TROP #### [address] RBC (Bld) [#/Vol] 5.06 10*6/uL High 3.60-5.00 [facility] Comment on above: Performed By: #### B RIVER TESTER, CK, CBC, HS TROP #### [address] Creatine kinase [Enzymatic a ctivity/volume] in Serum or PlasmaOrdered By: Marcio Steven on 11-30-2022 CK [Catalytic activity/Vol] 18 U/L Low 30-223 [facility] Comment on above: Performed By: #### B RIVER TESTER, CK, CBC, HS TROP #### [address] Creatinine [Mass/volume] in Serum or PlasmaOrdered By: Marcio Steven on 11-30-2022 Creatinine [Mass/Vol] 0.83 mg/dL Normal 0.60-1.20 [facility] Comment on above: Performed By: #### U A #### [address] D-Dimer High Sensitivityon 0 11-30-2022 D-Dimer High Sensitivity < 200 Normal 0-243 [facility] Comment on above: Result Comment: The reference [...] coagulation studies. Please contact the laboratory at [phone] for redraw instructions. PERFORMED BY: [place] [address] PATHOLOGIST HOMEMAKER [employer]ION ISAIAS DE LA CRUZ M.D. Performed By: #### U A #### [address] ECG 12 lead ECGon 11-30-2022 ECG 12 lead ECG [facility] [place] [address] [place] [address] Electrocardiograph Report Signed Patient: Karlene Alfaro MR#: [id number] : 1990 Acct:[id number] Age/Sex: 32 / F ADM Date: 11/30/22 Loc: ER Room: Type: [facility] ER Attending Dr: Ordering Provider: Marcio [...] ECGs available Confirmed by Marcio Steven DO ([id number]) on 11/30/2022 3:20:08 PM Referred By: Electronically Signed By:Marcio Steven DO Transcribed By: MUS Signed By Marcio Steven DO 3 1520 Normal [facility] Erythrocyte distribution wid th [Ratio] by Automated countOrdered By: Marcio Steven on 11-30-2022 Erythrocyte distribution width (RBC) [Ratio] 14.3 % Normal 11.9-15.3 [facility] Comment on above: Performed By: #### B RIVER TESTER, CK, CBC, HS TROP #### [facility] [address] Fibrin D-dimer [Presence] in Platelet poor plasma by Latex agglutinationOrdered By: Marcio Steven on 11-30-2022 Fibrin D-dimer LA Ql (PPP) < 200 ng/mL 0-243 [facility] Comment on above: The reference [...] coagulation studies. Please contact the laboratory at [phone] for redraw instructions. Free T4 (Free Thyroxine)on 0 11-30-2022 Free T4 [Mass/Vol] 1.94751257 ng/dL High 0.61- 1.12 ng/dL [facility] Other Glucose Glucometer (BldC) [M ass/Vol]Ordered By: Baljinder Polanco on 11-30-2022 Glucose [Mass/Vol] 100 mg/dL [facility] Comment on above: Random Glucose Refer ence Range is dependent on time and content of last meal. Glucose of more than 200 mg/dL in a nonstressed, ambulatory subject supports the diagnosis of Diabetes Mellitus. Glucose Poct Glucometerson 11-30-2022 Glucose [Mass/Vol] 100 mg/dL Normal [facility] Comment on above: Result Comment: [place] om Glucose Reference Range is dependent on time and content of last meal. Glucose of more than 200 mg/dL in a nonstressed, ambulatory subject supports the diagnosis of Diabetes Mellitus. PERFORMED BY: [facility] [address] [place] [id number] PATHOLOGIST HOMEMAKER [employer]ION ISAIAS DE LA CRUZ M.D. Performed By: #### U A #### [address] Hematocrit [Volume Fraction] of Blood by Automated countOrdered By: Marcio Steven on 11-30-2022 Hematocrit (Bld) [Volume fraction] 41.0 % Normal 34.0-46.4 [facility] Comment on above: Performed By: #### B RIVER TESTER, CK, CBC, HS TROP #### [address] Hemoglobin [Mass/volume] in BloodOrdered By: Marcio Steven on 11-30-2022 Hemoglobin (Bld) [Mass/Vol] 13.7 g/dL Normal 11.8-15.4 [facility] Comment on above: Performed By: #### B RIVER TESTER, CK, CBC, HS TROP #### [address] Hepatic Panelon 11-30-2022 Albumin [Mass/Vol] 4.4 g/dL Normal 3.5-5.7 [facility] Comment on above: Performed By: #### U A #### [address] Bilirubin,Indirect 0.9 mg/dL Normal [facility] Comment on above: Performed By: #### U A #### [address] Bilirubin.indirect [Mass/Vol] 0.00 mg/dL Low 0.03-0.18 [facility] Comment on above: Result Comment: If t he DBIL is less than 0.1, IBIL is not able to be calculated. Performed By: #### U A #### [address] INR in Platelet poor plasma by Coagulation assayOrdered By: Marcio Steven on 11-30-2022 INR Coag (PPP) [Relative time] 1.1 {INR} [facility] Comment on above: INR Therapeutic [...] on 11-30-2022 Ketones (U) [Mass/Vol] Trace Negative [facility] Leukocytes [#/volume] correc jocelynn for nucleated erythrocytes in Blood by Automated counOrdered By: Marcio Steven on 11-30-2022 WBC corrected for nucl RBC Auto (Bld) [#/Vol] 8.2 10*3/uL 3.8-11.6 [facility] Leukocytes [#/volume] in Blo od by Automated countOrdered By: Marcio Steven on 11-30-2022 WBC (Bld) [#/Vol] 8.2 10*3/uL Normal 3.8-11.6 [facility] Comment on above: Performed By: #### B RIVER TESTER, CK, CBC, HS TROP #### [facility] [address] [place] [address] [place] Lymphocytes [#/volume] in Bl ood by Automated countOrdered By: Marcio Steven on 11-30-2022 Lymphocytes (Bld) [#/Vol] 2.7 10*3/uL Normal 1.00-4.8 [facility] Comment on above: Performed By: #### B RIVER TESTER, CK, CBC, HS TROP #### [facility] [address] [place] [address] [place] Lymphocytes/100 leukocytes i n Blood by Automated countOrdered By: Marcio Steven on 11-30-2022 Lymphocytes/100 WBC (Bld) 32.3 % Normal . [facility] Comment on above: Performed By: #### B RIVER TESTER, CK, CBC, HS TROP #### [facility] [address] [place] [id number] [place] MCH [Entitic mass] by Automa jocelynn countOrdered By: Marcio Steven on 11-30-2022 MCH (RBC) [Entitic mass] 27.0 pg Normal 24.7-34.3 [facility] Comment on above: Performed By: #### B RIVER TESTER, CK, CBC, HS TROP #### [facility] [address] [place] [address] MCHC Auto (RBC) [Mass/Vol]Or dered By: Marcio Steven on 11-30-2022 MCHC (RBC) [Mass/Vol] 33.3 g/dL 32.0-35.0 [facility] MCV [Entitic volume] by Auto mated countOrdered By: Marcio Steven on 11-30-2022 MCV (RBC) [Entitic vol] 81.0 fL Normal 80-100 [facility] Comment on above: Performed By: #### B RIVER TESTER, CK, CBC, HS TROP #### [address] Magnesium [Mass/volume] in S abdifatah or PlasmaOrdered By: Marcio Steven on 11-30-2022 Magnesium [Mass/Vol] 1.9 mg/dL Normal 1.9-2.7 [facility] Comment on above: Performed By: #### U A #### [facility] [address] [place] [address] Monocyte distribution width [Entitic volume] in Blood by AutomatedOrdered By: Marcio Steven on 11-30-2022 Monocyte distribution width Auto (Bld) [Entitic vol] 19.22 % 0.00-20.00 [facility] Neutrophils [#/volume] in Bl ood by Automated countOrdered By: Marcio Steven on 11-30-2022 Neutrophils (Bld) [#/Vol] 4.9 10*3/uL Normal 1.8-7.7 [facility] Comment on above: Performed By: #### B RIVER TESTER, CK, CBC, HS TROP #### [address] Nitrite Test strip Ql (U)Ord ered By: Marcio Steven on 11-30-2022 Nitrite Ql (U) Negative Negative [facility] No Panel InformationOrdered By: Marcio Steven on 11-30-2022 Estimated GFR (CKD-EPI) > 60.0 mL/Min [facility] Creatinine Clearance (Chem 114.08 [facility] Nucleated erythrocytes [Pres ence] in Blood by Automated countOrdered By: Marcio Steven on 11-30-2022 Nucleated RBC Auto Ql (Bld) 0.2 /100{WBC} 0-0.5 [facility] Partial Thromboplastin Timeo n 11-30-2022 aPTT Coag (Bld) [Time] 32.4 s Normal 25.1-36.5 [facility] Comment on above: Result Comment: A he matocrit value greater than 55% may lead to inaccurate results in coagulation testing. Patients having hematocrit values >55% require a special collection tube for coagulation studies. Please contact the laboratory at [phone] for redraw instructions. Performed By: #### U A #### [facility] [address] [place] [address] [place] Platelet mean volume [Entiti c volume] in Blood by Automated countOrdered By: Marcio Steven on 11-30-2022 Platelet mean volume (Bld) [Entitic vol] 7.2 fL Normal 6.3-10.7 [facility] Comment on above: Performed By: #### B RIVER TESTER, CK, CBC, HS TROP #### [facility] [address] [place] [address] [place] Potassium [Moles/volume] in Serum or PlasmaOrdered By: Marcio Steven on 11-30-2022 Potassium [Moles/Vol] 4.1 mmol/L Normal 3.5-5.1 [facility] Comment on above: Performed By: #### U A #### [facility] [address] [place] [address] [place] Protein Auto test strip (U) [Mass/Vol]Ordered By: Marcio Steven on 11-30-2022 Protein (U) [Mass/Vol] Negative Negative [facility] Protein [Mass/volume] in Ser um or PlasmaOrdered By: Marcio Steven on 11-30-2022 Protein [Mass/Vol] 7.6 g/dL Normal 6.4-8.9 [facility] Comment on above: Performed By: #### U A #### [facility] [address] [place] [id number] [facility] Prothrombin Time INRon 11-30 INR Coag (PPP) [Relative time] 1.1 {INR} Normal [facility] Comment on above: Result Comment: [...] 4.5 Performed By: #### U A #### [facility] [address] [place], [place] [phone] [facility] PT Coag (PPP) [Time] 12.5 s Normal 9.0-12.9 [facility] Comment on above: Result Comment: A he matocrit value greater than 55% may lead to inaccurate results in coagulation testing. Patients having hematocrit values >55% require a special collection tube for coagulation studies. Please contact the laboratory at [phone] for redraw instructions. Performed By: #### U A #### [facility] [address] [place], [place] [id number] [facility] Prothrombin time (PT)Ordered By: Marcio Steven on 11-30-2022 PT Coag (PPP) [Time] 12.5 s 9.0-12.9 [facility] Comment on above: A hematocrit value g reater than 55% may lead to inaccurate results in coagulation testing. Patients having hematocrit values >55% require a special collection tube for coagulation studies. Please contact the laboratory at [phone] for redraw instructions. Respiratory (Upper) Panel, P [...] FLUA TEST INCLUDES - Influenza A H1 2008 FLUA TEST INCLUDES - Influenza A H3 Blank Space ---- PERFORMED BY: [place] [address] PATHOLOGIST [employer] ISAIAS DE LA CRUZ M.D. [facility] Comment on above: Performed By: #### R ZULEMA PANEL UPP., BIOFIRECOVNOTDE #### [facility] [address] [place] [address] Respiratory pathogens DNA an d RNA panel - Nasopharynx by LEO with non-probe detectionOrdered By: Marcio Steven on 11-30-2022 Respiratory pathogens DNA and RNA panel LEO+non-probe (Nph) [facility] Serum globulin measurement b y calculation (mass/volume)Ordered By: Marcio Steven on 11-30-2022 Globulin (S) [Mass/Vol] 3.2 g/dL [facility] Comment on above: Performed By: #### U A #### [facility] [address] [place] [address] Serum or plasma albumin/glob ulin mass ratioOrdered By: Marcio Steven on 11-30-2022 Albumin/Globulin [Mass ratio] 1.4 {ratio} [facility] Comment on above: Performed By: #### U A #### [facility] [address] Serum or plasma anion gap de terminationOrdered By: Marcio Steven on 11-30-2022 Anion gap [Moles/Vol] 14.2 mmol/L Normal 6.0-15.0 [facility] Comment on above: Performed By: #### U A #### [facility] [address] [place] [address] Serum or plasma non-glucuron idated bilirubin measurement (mass/volume)Ordered By: Marcio Steven on 11-30-2022 Bilirubin.indirect [Mass/Vol] 0.9 mg/dL [facility] Specific gravity Auto test s trip (U) [Rel density]Ordered By: Marcio Steven on 11-30-2022 Specific gravity (U) [Rel density] 1.013 1.001-1.03 0 [facility] Thyroid Stimulating Hormoneo n 11-30-2022 TSH Qn 0.59516910596 m[IU]/L Low 0.45-5 .33 u[iU]/mL Fredio Other Thyrotropin [Units/volume] i n Serum or PlasmaOrdered By: Marcio Steven on 11-30-2022 TSH Qn 0.03 m[IU]/L Low 0.45-5.33 [facility] Comment on above: Result Comment: PERF ORMED BY: [place] [address] PATHOLOGIST [employer] ISAIAS DE LA CRUZ M.D. Performed By: #### U A #### [facility] [address] [place] [address] Thyroxine (T4) free [Mass/vo lume] in Serum or PlasmaOrdered By: Marcio Steven on 11-30-2022 Free T4 [Mass/Vol] 1.56 ng/dL High 0.61-1.12 [facility] Comment on above: Performed By: #### U A #### [facility] [address] [place] [address] Triiodothyronine (T3) Freeon 11-30-2022 Triiodothyronine (T3) Free 3.89 pg/mL Normal 2.50-3.90 [facility] Comment on above: Result Comment: PERF ORMED BY: [place] [address] PATHOLOGIST [employer]OMEM[employer] ISAIAS DE LA CRUZ M.D. Performed By: #### P TT, MG, T3F, DDIMER, T4F, BMP, PT, TSH3, HEPATIC ####[facility] [id number] Triiodothyronine (T3) Free [ Mass/volume] in Serum or PlasmaOrdered By: Marcio Steven on 11-30-2022 Free T3 [Mass/Vol] 3.89 pg/mL 2.50-3.90 [facility] Troponin I High Sensitivityo n 11-30-2022 Troponin I High Sensitivity 38.7 pg/mL High 0.0-15.0 [facility] Comment on above: Result Comment: PERF ORMED BY: [place] [address] PATHOLOGIST [employer] ISAIAS DE LA CRUZ M.D. Performed By: #### U A #### [facility] [address] [place] [address] US liveron 11-30-2022 US liver [facility] [place] [address] [place] [address] Ultrasound Report Signed Patient: Karlene Alfaro MR#: [id number] : 1990 Acct:[id number] Age/Sex: 32 / F ADM Date: 11/30/22 Loc: Room: [address] [place] [address] Type: ADM IN Attending Dr: Baljinder Polanco [...] Crow Ramos M.D.11/30/2022 5:27 PM Dictation Location: [place] [address] Tech: Ophelia Queen Transcribed By: TORITO 11/30/221726 Dictated By: Crow Ramos II, MD 11/30/221725 Signed By: 11/30/221726 Normal [facility] Urinalysison 11-30-2022 Appearance (U) Clear Normal Clear [facility] Comment on above: Order Comment: Name Collection Type:: Clean-Voided Midstream Performed By: #### U A #### [place] [address] [place] Bilirubin,Urine Negative Normal Negative [facility] Comment on above: Order Comment: Name Collection Type:: Clean-Voided Midstream Performed By: #### U A #### [facility] [address] [place] [address] [place] Color (U) Yellow Normal Yellow [facility] Comment on above: Order Comment: Name Collection Type:: Clean-Voided Midstream Performed By: #### U A #### [facility] [address] [place] [address] [place] Glucose Ql (U) Normal Normal Normal [facility] Comment on above: Order Comment: Name Collection Type:: Clean-Voided Midstream Performed By: #### U A #### [facility] [address] [place], [place] [id number] [place] Ketones Ql (U) Trace High Negative [facility] Comment on above: Order Comment: Name Collection Type:: Clean-Voided Midstream Performed By: #### U A #### [facility] [address] [place] [address] [place] Leukocyte esterase Test strip Ql (U) Negative Normal Negative [facility] Comment on above: Order Comment: Name Collection Type:: Clean-Voided Midstream Performed By: #### U A #### [address] Nitrite,Urine Negative Normal Negative [facility] Comment on above: Order Comment: Name Collection Type:: Clean-Voided Midstream Performed By: #### U A #### [address] Occult Blood,Urine Negative Normal Negative [facility] Comment on above: Order Comment: Name Collection Type:: Clean-Voided Midstream Result Comment: PERF ORMED BY: [place] [address] PATHOLOGIST [employer] ISAIAS DE LA CRUZ M.D. Performed By: #### U A #### [address] pH (U) [pH] Normal 5.0-9.0 [facility] Comment on above: Order Comment: Name Collection Type:: Clean-Voided Midstream Performed By: #### U A #### [address] Protein,Urine Negative Normal Negative [facility] Comment on above: Order Comment: Name Collection Type:: Clean-Voided Midstream Performed By: #### U A #### [address] Specificy [place],Urine 1.013 Normal 1.001-1.03 0 [facility] Comment on above: Order Comment: Name Collection Type:: Clean-Voided Midstream Performed By: #### U A #### [address] Urobilinogen,Urine Normal Normal Normal [facility] Comment on above: Order Comment: Name Collection Type:: Clean-Voided Midstream Performed By: #### U A #### [address] Urine clarity by refractomet ry automatedOrdered By: Marcio Steven on 11-30-2022 Clarity Refractometry automated (U) Clear Clear [facility] Urine glucose measurement by automated test strip (mass/volume)Ordered By: Marcio Steven on 11-30-2022 Glucose Auto test strip (U) [Mass/Vol] Normal mg/dL Normal [facility] Urine hemoglobin detection b y automated test stripOrdered By: Marcio Steven on 11-30-2022 Hemoglobin Auto test strip Ql (U) Negative Negative [facility] Urine leukocyte esterase det ection by automated test stripOrdered By: Marcio Steven on 11-30-2022 Leukocyte esterase Auto test strip Ql (U) Negative Negative [facility] Urobilinogen Auto test strip (U) [Mass/Vol]Ordered By: Marcio Steven on 11-30-2022 Urobilinogen (U) [Mass/Vol] Normal mg/dL Normal [facility] XR chest 1V portableon 11-30 XR chest 1V portable [facility] [place] [address] XRay Report Signed Patient: Karlene Alfaro MR#: [id number] : 1990 Acct:[id number] Age/Sex: 32 / F ADM Date: 11/30/22 Loc: ER Room: Type: [facility] ER Attending Dr: Copies to: Marcio [...] Jovan Martin M.D.11/30/2022 1:58 PM Dictation Location: [place] [address] Transcribed By: [facility] 11/30/22 1358 Dictated By: Jovan Martin DO 11/30/22 1351 Signed By: 11/30/22 1358 Normal [facility] pH Auto test strip (U)Ordere d By: Marcio Steven on 11-30-2022 pH (U) [pH] 5.0-9.0 [facility] CORTISOL FREE, SERUMon 06-17 Cortisol, Free Dialysis, LCMS 0.649 ug/dL Normal [facility] Comment on above: Result Comment: Thes e tests were developed and their performance characteristics determined by [employer]. They have not been cleared or approved by the Food and Drug Administration. Reference Range: 8 AM 0.10 - 1.20 4 PM 0.042 - 0.872 Performed By: #### R [id number] #### [facility] [address] [place] [address] Dr. Dimple Parsons CBC AUTO DIFFon 06-16-2022 BASO # 0.1 103/ul Normal 0.0-0.1 [facility] [place] [facility] Comment on above: Performed By: #### R [id number] #### [facility] [address] [place] [address] Dr. Dimple Parsons Basophils/100 WBC (Bld) 0.6 % Normal 0.2-2.0 [facility] Comment on above: Performed By: #### R [id number] #### [facility] [address] [place] [address] Dr. Dimple Parsons EO # 0.4 103/ul Normal 0.0-0.7 [facility] Comment on above: Performed By: #### R [id number] #### [facility] [address] [place] [address] Dr. Dimple Parsons Eosinophils/100 WBC (Bld) 4.0 % Normal 0.9-7.0 [facility] Comment on above: Performed By: #### R [id number] #### [facility] [address] [place] [address] Dr. Dimple Parsons Erythrocyte distribution width (RBC) [Ratio] 13.8 % Normal 11.0-15.0 [facility] Comment on above: Performed By: #### R [id number] #### [facility] [address] [place] [address] [address] Dimple Parsons Hematocrit (Bld) [Volume fraction] 39.8 % Normal 36.0-48.0 [facility] Comment on above: Performed By: #### R [id number] #### [facility] [address] [place] [address] Dr. Dimple Parsons Hemoglobin (Bld) [Mass/Vol] 12.9 g/dL Normal 12.0-16.0 [facility] Comment on above: Performed By: #### R [id number] #### [facility] [address] [place] [address] Dr. Dimple Parsons IG # 0.02 10e3/ul Normal 0.00-0.03 [facility] Comment on above: Performed By: #### R [id number] #### [facility] [address] [place] [address] Dr. Dimple Parsons IG % 0.2 % Normal 0.0-0.5 [facility] Comment on above: Performed By: #### R [id number] #### [facility] [address] [place] [address] Dr. Dimple Parsons LYMPH # 3.1 103/ul Normal 1.2-3.8 [facility] Comment on above: Performed By: #### R [id number] #### [facility] [address] [place] [address] Dr. Dimple Parsons Lymphocytes/100 WBC (Bld) 33.5 % Normal 20.5-60.0 [facility] Comment on above: Performed By: #### R [id number] #### [facility] [address] [place] [address] Dr. Dimple Parsons MANUAL DIFF REQ NO Normal [facility] Comment on above: Performed By: #### R [id number] #### [facility] [address] [place] [address] Dr. Dimple Parsons MCH (RBC) [Entitic mass] 26.1 pg Critically low 26.7-34.0 [facility] Comment on above: Performed By: #### R [id number] #### [facility] [address] [place] [address] Dr. Dimple Parsons MCHC (RBC) [Mass/Vol] 32.4 g/dL Normal 29.9-35.2 [facility] Comment on above: Performed By: #### R [id number] #### [facility] [address] [place] [address] Dr. Dimple Parsons MCV (RBC) [Entitic vol] 80.4 fL Critically low 81.0-99.0 [facility] Comment on above: Performed By: #### R [id number] #### [facility] [address] [place] [address] Dr. Dimple Parsons MONO # 0.5 103/ul Normal 0.3-0.8 [facility] Comment on above: Performed By: #### R [id number] #### [facility] [address] [place] [address] Dr. Dimple Parsons Monocytes/100 WBC (Bld) 5.2 % Normal 1.7-12.0 [facility] Comment on above: Performed By: #### R [id number] #### [facility] [address] [place] [address] Dr. Dimple Parsons NEUT # 5.2 103/ul Normal 1.4-6.5 [facility] Comment on above: Performed By: #### R [id number] #### [facility] [address] [place] [address] Dr. Dimple Parsons Neutrophils/100 WBC (Bld) 56.5 % Normal 43.0-75.0 [facility] Comment on above: Performed By: #### R [id number] #### [facility] [address] [place] [address] Dr. Dimple Parsons Platelet mean volume (Bld) [Entitic vol] 8.7 fL Critically low 9.5-13.5 [facility] Comment on above: Performed By: #### R [id number] #### [facility] [address] [place] [address] Dr. Dimple Parsons PLT 376 103/ul Normal 150-450 [facility] Comment on above: Performed By: #### R [id number] #### [facility] [address] [place] [address] [address] Dimple Parsons RBC 4.95 106/ul Normal 4.20-5.40 [facility] Comment on above: Performed By: #### R [id number] #### [facility] [address] [place] [address] [address] Dimple Parsons WBC 9.3 103/ul Normal 4.0-11.0 [facility] Comment on above: Performed By: #### R [id number] #### [facility] [address] [place] [address] [address] Dimple Parsons TESTOSTERONE, FREE,DIRECT, T OTALon 06-10-2022 Free Testosterone(Direct) 1.6 pg/mL Normal 0.0-4.2 [facility] Comment on above: Result Comment: Perf ormed at: BN Performed By: #### C BC #### [facility] [address] [place] [address] Dr. Dimple Parsons Testosterone [Mass/Vol] 22 ng/dL Normal 8-60 [facility] Comment on above: Result Comment: Perf ormed at: CB Performed By: #### C BC #### [facility] [address] [place] [address] Dr. Dimple Parsons ESTROGENon 2022 Estrogens, Total 413 pg/mL Normal [facility] Comment on above: Result Comment: Prep ubertal < 40 Female Cycle: 1-10 Days 16 - 328 11-20 Days 34 - 501 21-30 Days 48 - 350 Post-Menopausal 40 - 244 Performed By: #### D SURINDER #### [facility] [address] [place] [address] Dr. Dimple Parsons SEROTONINon 2022 Serotonin, Serum 20 ng/mL Critically low 31-207 [facility] Comment on above: Performed By: #### S EROTON #### [facility] [address] [place] [address] Dr. Dimple Parsons REVERSE T3on 06-08-2022 Reverse T3, Serum 15.6 ng/dL Normal 9.2-24.1 [facility] Comment on above: Result Comment: This test was developed and its performance characteristics determined by [employer]. It has not been cleared or approved by the Food and Drug Administration. Performed By: #### R [id number] #### [facility] [address] [place] [address] Dr. Dimple Parsons VIT D 1 25 DIHYDROXYon 06-07 Calcitriol(1,25 di-OH Vit D) 12.2 pg/mL Critically low 24.8-81.5 [facility] Comment on above: Performed By: #### V [id number] #### [facility] [address] [place] [address] Dr. Dimple Parsons C-PEPTIDE, SERUMon C-Peptide, Serum 3.3 ng/mL Normal 1.1-4.4 [facility] Comment on above: Result Comment: C-Pe ptide reference interval is for fasting patients. Performed By: #### R [id number] #### [facility] [address] [place] [address] Dr. Dimple Parsons DHEA-SULFATEon 06-05-2022 DHEA-Sulfate 154.0 ug/dL Normal 84.8-378.[address] [facility] Comment on above: Performed By: #### D SURINDER #### [facility] [address] [place] [address] Dr. Dimple Parsons ESTRADIOLon 06-05-2022 Estradiol 117.0 pg/mL Normal [facility] Comment on above: Result Comment: Adul t Female: Follicular phase 12.5 - 166.0 Ovulation phase 85.8 - 498.0 Luteal phase 43.8 - 211.0 Postmenopausal <6.0 - 54.7 1st trimester 215.0 - >4300.0 [facility] ECLIA methodology Performed By: #### R [id number] #### [facility] [address] [place] [address] Dr. Dimple Parsons INSULINon 06-05-2022 Insulin 13.1 uIU/mL Normal 2.6-24.9 [facility] Comment on above: Performed By: #### C BC #### [facility] [address] [place] [address] Dr. Dimple Parsons PROGESTERONEon 06-05-2022 Progesterone 4.8 ng/mL Normal [facility] Comment on above: Result Comment: Foll icular phase 0.1 - 0.9 Luteal phase 1.8 - 23.9 Ovulation phase 0.1 - 12.0 First trimester 11.0 - 44.3 Second trimester 25.4 - 83.3 Third trimester 58.7 - 214.0 Postmenopausal 0.0 - 0.1 Performed By: #### Inder CADENA #### [facility] [address] [place] [address] Dr. Dimple Parsons SEX HORMONE-BINDING GLOBULIN on 06-05-2022 Sex Horm Binding Glob, Serum 40.7 nmol/L Normal 24.6-122.0 [facility] Comment on above: Performed By: #### Jocelyne BC #### [facility] [address] [place] [address] Dr. Dimple Parsons T3, TOTAL (TRIIODOTHYRONINE) on 06-05-2022 T3, TOTAL 89 ng/dL Normal 71-180 [facility] [facility] Comment on above: Performed By: #### Rob EVRT3 #### [facility] [address] [place] [address] Dr. Dimple Parsons THYROID PEROXIDASE ABon 05-13 Thyroid Peroxidase (TPO) Ab 12 IU/mL Normal 0-34 [facility] Comment on above: Performed By: #### Inder CADENA #### [facility] [address] [place] [address] Dr. Dimple Parsons FERRITINon 06-04-2022 Ferritin [Mass/Vol] 193.0 ng/mL Critically high 6.2-137.0 [facility] Comment on above: Performed By: #### Inder CADENA #### [facility] [address] [place] [address] Dr. Dimple Parsons FREE T3on 06-04-2022 FREE T3 2.24 pg/mlL Normal 2.18-3.98 [facility] Comment on above: Performed By: #### R EVRT3 #### [facility] [address] [place] [address] Dr. Dimple Parsons FREE T4on 06-04-2022 Free T4 [Mass/Vol] 1.14 ng/dL Normal 0.76-1.46 [facility] Comment on above: Performed By: #### D SURINDER #### [facility] [address] [address] [address] Dimple Parsons GLUCOSE BLOODon 06-04-2022 Glucose [Mass/Vol] 92 mg/dL Normal 74-106 [facility] Comment on above: Performed By: #### R EVRT3 #### [facility] [address] [address] [address] Dimple Parsons GLYCOHEMOGLOBIN A1Con 2022 ADA RECOMMENDATION SEE BELOW Normal [facility] Comment on above: Result Comment: ADA RECOMMENDED LIMIT 4.0 - 6.0 ADA THERAPEUTIC TARGET < 7.0 ACTION SUGGESTED > 7.0 Performed By: #### A 1C #### [facility] [address] [place] [address] Dr. Dimple Parsons Glucose [Mass/Vol] 100 mg/dL Normal [facility] Comment on above: Performed By: #### A 1C #### [facility] [address] [address] [address] Dimple Parsons HbA1c (Bld) [Mass fraction] 5.1 % Normal 4.5-6.2 [facility] Comment on above: Performed By: #### A 1C #### [facility] [address] [place] [address] Dr. Dimple Parsons T4on 06-04-2022 T4 [Mass/Vol] 8.60 ug/dL Normal 4.80-13.[address] [facility] Comment on above: Performed By: #### R EVRT3 #### [facility] [address] [place] [address] Dr. Dimple Parsons TSHon 06-04-2022 TSH 0.442 uIU/mL Normal 0.358-3.74 0 [facility] Comment on above: Performed By: #### R EVRT3 #### [facility] [address] [address] [address] Dimple Parsons US PELVIS AND TRANSVAGon [...] by: KAYLA ACOSTA Date: 2022-05-25 13:36 Normal [facility] RAD - MISCon 05-24-2022 RAD - MIS [id number]:12 7 Normal [facility] Ambulatory Visit Summaryon 0 05-21-2022 Ambulatory Visit Summary JOHN KARLENE K :1990 Visit Date:05/21/2022 Ambulatory Visit Instructions Your Diagnosis Ureteral stone Kidney stone Stress incontinence Tests Performed Urnls Dip Stick Auto w/o Microscopy POC 85931 Your Care Team Attending Physician - LUCY STILES, Kamaljit Rivas Primary Care Physician - SURYA HODGES MD [...] Follow-Up Appointments Tuesday 8:00 AM EDT With: Kamaljit ROMERO MD Where: [facility] Normal [facility] Patient Educationon 05-22-19 Patient Education Urology [...] these instructions at home: Medicines ? Take frzh-acw-vdkovit and prescription medicines only as told by [...] Foundation (NKF): www.kidney.org ? [facility] ([facility]): www.urologyhealth.org Contact a doctor if: ? You [...] 08/16/2008 Document Revised: 07/17/2019 Document Reviewed: 07/17/2019 [employer] Patient Education ? 2019 [employer]. [facility] Urology Office/Clinic Noteon 05-21-2022 Urology Office/Clinic Note Chief Complaint Pt here for ER follow up 05-08-22 HPI Staff F/U to [place] ER visit 05/08/22 due to Kidney Stone. [...] stone (N20.1: Calculus of ureter) Presented to [facility] ER 05/08/22 with sudden onset right [...] Contact Information LUCY STILES, Kamaljit Rivas, URL [facility] [place] [address]- Additional Instructions: 3 months to review met w/up Patient Education Kidney Stones, Bifl-xe-Ttzv I, Marce Mccarthy, personally scribed for Dr. [...] is negative (more content not included)... [facility] Comment on above: Result Comment: Elec tronically Signed By: Kamaljit ROMERO MD\.br\Date and Time Signed: 05/21/22 10:56 EST\.br\Electronically Co-Signed By: Marce Mccarthy.br\Date and Time Co-Signed: 05/21/22 10:49 EST\.br\Electronically Co-Signed [...] by: DAVID ALDANA Date: 2022-05-21 06:53 Normal [facility] ED Note-Physicianon 05-17-19 ED Note-Physician [id number]#1.00CD:1 27 Normal [facility] RAD - CT Reporton 05-16-2022 RAD - CT Report [id number]#1.00CD:12 7 Normal [facility] RAD - Ultrasound Reporton RAD - Ultrasound Report [id number]#1.00CD:1 27 Normal [facility] CBC AUTO DIFFon 05-08-2022 BASO # 0.0 103/ul Normal 0.0-0.1 [facility] Comment on above: Performed By: #### C BC #### [facility] [address] [address] [address] Dimple Parsons Basophils/100 WBC (Bld) 0.3 % Normal 0.2-2.0 [facility] Comment on above: Performed By: #### C BC #### [facility] [address] [place] [address] Dr. Dimple Parsons EO # 0.2 103/ul Normal 0.0-0.7 [facility] Comment on above: Performed By: #### C BC #### [facility] [address] [place] [address] Dr. Dimple Parsons Eosinophils/100 WBC (Bld) 1.3 % Normal 0.9-7.0 [facility] Comment on above: Performed By: #### C BC #### [facility] [address] [place] [address] Dr. Dimple Parsons Erythrocyte distribution width (RBC) [Ratio] 13.9 % Normal 11.0-15.0 [facility] Comment on above: Performed By: #### C BC #### [facility] [address] [place] [address] Dr. Dimple Parsons Hematocrit (Bld) [Volume fraction] 38.8 % Normal 36.0-48.0 [facility] Comment on above: Performed By: #### C BC #### [facility] [address] [place] [address] Dr. Dimple Parsons Hemoglobin (Bld) [Mass/Vol] 12.8 g/dL Normal 12.0-16.0 [facility] Comment on above: Performed By: #### C BC #### [facility] [address] [place] [address] Dr. Dimple Parsons IG # 0.15 10e3/ul Critically high 0.00-0.03 [facility] Comment on above: Performed By: #### C BC #### [facility] [address] [place] [address] Dr. Dimple Parsons IG % 1.3 % Critically high 0.0-0.5 [facility] Comment on above: Performed By: #### C BC #### [facility] [address] [place] [address] Dr. Dimple Parsons LYMPH # 3.4 103/ul Normal 1.2-3.8 [facility] Comment on above: Performed By: #### C BC #### [facility] [address] [place] [address] Dr. Dimple Parsons Lymphocytes/100 WBC (Bld) 28.9 % Normal 20.5-60.0 [facility] Comment on above: Performed By: #### C BC #### [facility] [address] [place] [address] Dr. Dimple Parsons MANUAL DIFF REQ NO Normal [facility] Comment on above: Performed By: #### C BC #### [facility] [address] [place] [address] Dr. Dimple Parsons MCH (RBC) [Entitic mass] 25.9 pg Critically low 26.7-34.0 [facility] Comment on above: Performed By: #### C BC #### [facility] [address] [place] [address] Dr. Dimple Parsons MCHC (RBC) [Mass/Vol] 33.0 g/dL Normal 29.9-35.2 [facility] Comment on above: Performed By: #### C BC #### [facility] [address] [place] [address] Dr. Dimple Parsons MCV (RBC) [Entitic vol] 78.5 fL Critically low 81.0-99.0 [facility] Comment on above: Performed By: #### C BC #### [facility] [address] [place] [address] Dr. Dimple Parsons MONO # 0.7 103/ul Normal 0.3-0.8 [facility] Comment on above: Performed By: #### C BC #### [facility] [address] [place] [address] Dr. Dimple Parsons Monocytes/100 WBC (Bld) 6.2 % Normal 1.7-12.0 [facility] Comment on above: Performed By: #### C BC #### [facility] [address] [place] [address] Dr. Dimple Parsons NEUT # 7.3 103/ul Critically high 1.4-6.5 [facility] Comment on above: Performed By: #### C BC #### [facility] [address] [place] [address] Dr. Dimple Parsons Neutrophils/100 WBC (Bld) 62.0 % Normal 43.0-75.0 [facility] Comment on above: Performed By: #### C BC #### [facility] [address] [place], [place] [address] Dr. Dimple Parsons Platelet mean volume (Bld) [Entitic vol] 9.1 fL Critically low 9.5-13.5 [facility] Comment on above: Performed By: #### C BC #### [facility] [address] [place], [place] [address] Dr. Dimple Parsons PLT 426 103/ul Normal 150-450 [facility] Comment on above: Performed By: #### C BC #### [facility] [address] [place] [address] [address] [address] Dimple Parsons RBC 4.94 106/ul Normal 4.20-5.40 [facility] Comment on above: Performed By: #### C BC #### [facility] [address] [place], [place] [address] Dr. Dimple Parsons WBC 11.9 103/ul Critically high 4.0-11.0 [facility] Comment on above: Performed By: #### C BC #### [facility] [address] [place] [address] ABD/PELVIS WO CONon [...] outpatient ultrasound. Note: Exam was submitted to [facility] operations Incidental Findings call que, to call the above findings to the patient's primary care provider nonemergently. Electronically authenticated by: RERE CARLISLE Date: 2022-05-08 05:24 Normal [facility] PROF 14(COMP METB)on 05-08- 023 Albumin [Mass/Vol] 4.0 g/dL Normal 3.4-5.0 [facility] Comment on above: Performed By: #### R EVRT3 #### [facility] [address] [place] [address] Dr. Dimple Parsons Albumin/Globulin [Mass ratio] 1.1 {ratio} Normal [facility] Comment on above: Performed By: #### R EVRT3 #### [facility] [address] [address] [address] Dimple Parsons ALP [Catalytic activity/Vol] 76 U/L Normal 46-116 [facility] Comment on above: Performed By: #### R EVRT3 #### [facility] [address] [address] [address] Dimple Parsons ALT [Catalytic activity/Vol] 20 U/L Normal 14-59 [facility] Comment on above: Performed By: #### R EVRT3 #### [facility] [address] [address] [address] Dimple Parsons Anion gap [Moles/Vol] 14.9 mmol/L Normal [facility] Comment on above: Performed By: #### R EVRT3 #### [facility] [address] [place] [address] Dr. Dimple Parsons AST [Catalytic activity/Vol] 19 U/L Normal 15-37 [facility] Comment on above: Performed By: #### R EVRT3 #### [facility] [address] [address] [address] Dimple Parsons Bilirubin [Mass/Vol] 0.6 mg/dL Normal 0.2-1.0 [facility] Comment on above: Performed By: #### R EVRT3 #### [facility] [address] [place] [address] Dr. Dimple Parsons Calcium [Mass/Vol] 9.0 mg/dL Normal 8.5-10.1 [facility] Comment on above: Performed By: #### R EVRT3 #### [facility] [address] [address] [address] Dimple Parsons Chloride [Moles/Vol] 103 mmol/L Normal 98-107 [facility] Comment on above: Performed By: #### R EVRT3 #### [facility] [address] [address] [address] Dimple Parsons CO2 [Moles/Vol] 25.5 mmol/L Normal 21.0-32.0 [facility] Comment on above: Performed By: #### R EVRT3 #### [facility] [address] [address] [address] Dimple Parsons Creatinine [Mass/Vol] 0.75 mg/dL Normal 0.55-1.02 [facility] Comment on above: Performed By: #### R EVRT3 #### [facility] [address] [address] [address] Dimple Parsons EGFR-AF [place] >60 Normal >=60 [facility] Comment on above: Performed By: #### R EVRT3 #### [facility] [address] [address] [address] Dimple Parsons EGFR-NON AF [place] >60 Normal >=60 [facility] Comment on above: Performed By: #### R EVRT3 #### [facility] [address] [place] [address] Dr. Dimple Parsons Globulin (S) [Mass/Vol] 3.8 g/dL Normal [facility] Comment on above: Performed By: #### R EVRT3 #### [facility] [address] [place] [address] Dr. Dimple Parsons Glucose [Mass/Vol] 107 mg/dL Critically high 74-106 [facility] Comment on above: Performed By: #### R EVRT3 #### [facility] [address] [place] [address] Dr. Dimple Parsons Potassium [Moles/Vol] 3.4 mmol/L Critically low 3.5-5.1 [facility] Comment on above: Performed By: #### R EVRT3 #### [facility] [address] [place] [address] Dr. Dimple Parsons Protein [Mass/Vol] 7.8 g/dL Normal 6.4-8.2 [facility] Comment on above: Performed By: #### R EVRT3 #### [facility] [address] [place] [address] Dr. Dimple Parsons Sodium [Moles/Vol] 140 mmol/L Normal 136-145 [facility] Comment on above: Performed By: #### R EVRT3 #### [facility] [address] [place], [place] [address] Dr. Dimple Parsons Urea nitrogen [Mass/Vol] 7.0 mg/dL Normal 7.0-18.0 [facility] Comment on above: Performed By: #### R EVRT3 #### [facility] [address] [place], [place] [address] Dr. Dimple Parsons Urea nitrogen/Creatinine [Mass ratio] 9.3 mg/mg Normal [facility] Comment on above: Performed By: #### R EVRT3 #### [facility] [address] [place], [place] [address] Dr. Dimple Parsons US PELVIS TRANSVAGon 023 [...] MICKEY GALVAN Date: 2022-05-08 08:57 Normal [facility] XR ankle LT min 3V*on 2021 XR ankle LT min 3V* [facility] [place] [address] [place] [address] XRay Report Signed Patient: Karlene Alfaro MR#: [id number] : 1990 Acct:[id number] Age/Sex: 31 / F ADM Date: 02/21/22 Loc: XDUCLY Room: Type: [facility] Attending Dr: Treasure EAST Copies to: KITA [...] PROCESS. Impression dictated by: Hardik Inman Jr., DBishnuOBishnu02/21/2022 12:42 PM Dictation Location: [place] [address] Transcribed By: [facility] 02/21/22 1242 Dictated By: Hardik Inman Jr, DO 02/21/22 1241 Signed By: 02/21/22 1242 [facility] Physician Referralon 022 Physician Referral [id number]:12 7 Normal [facility] Operative Reporton Operative Report [id number]#1.00CD:1 27 [facility] Pre-Certification Formon Pre-Certification Form [id number]#1.00CD:12 7 Normal [facility] Lab Reportson 01-17-2022 Lab Reports [id number]#1.00CD:12 7 Normal [facility] Lab Reportson 01-16-2022 Lab Reports [id number]#[id number]:12 7 [facility] CBC AUTO DIFFon 01-13-2022 BASO # 0.1 103/ul Normal 0.0-0.1 [facility] Comment on above: Performed By: #### C BC #### [facility] [address] [address] [address] Dimple Parsons Basophils/100 WBC (Bld) 0.5 % Normal 0.2-2.0 [facility] Comment on above: Performed By: #### C BC #### [facility] [address] [place] [address] Dr. Dimple Parsons EO # 0.2 103/ul Normal 0.0-0.7 [facility] Comment on above: Performed By: #### C BC #### [facility] [address] [place] [address] Dr. Dimple Parsons Eosinophils/100 WBC (Bld) 2.3 % Normal 0.9-7.0 [facility] Comment on above: Performed By: #### C BC #### [facility] [address] [place] [address] Dr. Dimple Parsons Erythrocyte distribution width (RBC) [Ratio] 13.2 % Normal 11.0-15.0 [facility] Comment on above: Performed By: #### C BC #### [facility] [address] [place] [address] Dr. Dimple Parsons Hematocrit (Bld) [Volume fraction] 40.5 % Normal 36.0-48.0 [facility] Comment on above: Performed By: #### C BC #### [facility] [address] [place] [address] Dr. Dimple Parsons Hemoglobin (Bld) [Mass/Vol] 13.0 g/dL Normal 12.0-16.0 [facility] Comment on above: Performed By: #### C BC #### [facility] [address] [place] [address] Dr. Dimple Parsons IG # 0.01 10e3/ul Normal 0.00-0.03 [facility] Comment on above: Performed By: #### C BC #### [facility] [address] [place] [address] Dr. Dimple Parsons IG % 0.1 % Normal 0.0-0.5 [facility] Comment on above: Performed By: #### C BC #### [facility] [address] [place] [address] Dr. Dimple Parsons LYMPH # 2.6 103/ul Normal 1.2-3.8 [facility] Comment on above: Performed By: #### C BC #### [facility] [address] [place] [address] Dr. Dimple Parsons Lymphocytes/100 WBC (Bld) 27.4 % Normal 20.5-60.0 [facility] Comment on above: Performed By: #### C BC #### [facility] [address] [place] [address] Dr. Dimple Parsons MANUAL DIFF REQ NO Normal [facility] Comment on above: Performed By: #### C BC #### [facility] [address] [place] [address] Dr. Dimple Parsons MCH (RBC) [Entitic mass] 26.4 pg Critically low 26.7-34.0 [facility] Comment on above: Performed By: #### C BC #### [facility] [address] [place] [address] Dr. Dimple Parsons MCHC (RBC) [Mass/Vol] 32.1 g/dL Normal 29.9-35.2 [facility] Comment on above: Performed By: #### C BC #### [facility] [address] [place] [address] Dr. Dimple Parsons MCV (RBC) [Entitic vol] 82.2 fL Normal 81.0-99.0 [facility] Comment on above: Performed By: #### C BC #### [facility] [address] [place] [address] Dr. Dimple Parsons MONO # 0.6 103/ul Normal 0.3-0.8 [facility] Comment on above: Performed By: #### C BC #### [facility] [address] [place] [address] Dr. Dimple Parsons Monocytes/100 WBC (Bld) 6.2 % Normal 1.7-12.0 [facility] Comment on above: Performed By: #### C BC #### [facility] [address] [place] [address] Dr. Dimple Parsons NEUT # 6.1 103/ul Normal 1.4-6.5 [facility] Comment on above: Performed By: #### C BC #### [facility] [address] [place] [address] [address] Dimple Parsons Neutrophils/100 WBC (Bld) 63.5 % Normal 43.0-75.0 [facility] Comment on above: Performed By: #### C BC #### [facility] [address] [place] [address] Dr. Dimple Parsons Platelet mean volume (Bld) [Entitic vol] 9.0 fL Critically low 9.5-13.5 [facility] Comment on above: Performed By: #### C BC #### [facility] [address] [place] [address] Dr. Dimple Parsons PLT 346 103/ul Normal 150-450 [facility] Comment on above: Performed By: #### C BC #### [facility] [address] [place] [address] Dr. Dimple Parsons RBC 4.93 106/ul Normal 4.20-5.40 [facility] Comment on above: Performed By: #### C BC #### [facility] [address] [place] [address] Dr. Dimple Parsons WBC 9.5 103/ul Normal 4.0-11.0 [facility] Comment on above: Performed By: #### C BC #### [facility] [address] [place] [address] Dr. Dimple Parsons FREE T4on 01-13-2022 Free T4 [Mass/Vol] 1.39 ng/dL Normal 0.76-1.46 [facility] Comment on above: Performed By: #### C BC #### [facility] [address] [place] [address] Dr. Dimple Parsons PROF CHEM 8 (BAS METB)on Anion gap [Moles/Vol] 10.4 mmol/L Normal [facility] Comment on above: Performed By: #### D SURINDER #### [facility] [address] [place] [address] Dr. Dimple Parsons Calcium [Mass/Vol] 9.0 mg/dL Normal 8.5-10.1 [facility] Comment on above: Performed By: #### Inder CADENA #### [facility] [address] [place] [address] [address] Dimple Parsons Chloride [Moles/Vol] 101 mmol/L Normal 98-107 [facility] Comment on above: Performed By: #### Inder CADENA #### [facility] [address] [place] [address] [address] Dimple Parsons CO2 [Moles/Vol] 29.3 mmol/L Normal 21.0-32.0 [facility] Comment on above: Performed By: #### Inder CADENA #### [facility] [address] [place] [address] [address] Dimple Parsons Creatinine [Mass/Vol] 0.79 mg/dL Normal 0.55-1.02 [facility] Comment on above: Performed By: #### Inder CADENA #### [facility] [address] [place] [address] [address] Dimple Parsons EGFR-AF [place] >60 Normal >=60 [facility] Comment on above: Performed By: #### Inder CADENA #### [facility] [address] [place] [address] [address] Dimple Parsons EGFR-NON AF [place] >60 Normal >=60 [facility] Comment on above: Performed By: #### Inder CADENA #### [facility] [address] [place] [address] [address] Dimple Parsons Glucose [Mass/Vol] 92 mg/dL Normal 74-106 [facility] Comment on above: Performed By: #### Inder CADENA #### [facility] [address] [place] [address] [address] Dimple Parsons Potassium [Moles/Vol] 3.7 mmol/L Normal 3.5-5.1 [facility] Comment on above: Performed By: #### Inder CADENA #### [facility] [address] [place] [address] [address] Dimple Parsons Sodium [Moles/Vol] 137 mmol/L Normal 136-145 [facility] Comment on above: Performed By: #### Inder SURINDER #### [facility] [address] [place] [address] Dr. Dimple Parsons Urea nitrogen [Mass/Vol] 11.0 mg/dL Normal 7.0-18.0 [facility] Comment on above: Performed By: #### D SURINDER #### [facility] [address] [place] [address] Dr. Dimple Parsons Urea nitrogen/Creatinine [Mass ratio] 13.9 mg/mg Normal [facility] Comment on above: Performed By: #### D SURINDER #### [facility] [address] [place] [address] Dr. Dimple Parsons PROTIMEon 01-13-2022 INR Coag (PPP) [Relative time] 1.04 {INR} Normal [facility] Comment on above: Performed By: #### P TT, PT #### [facility] [address] [place] [address] Dr. Dimple Parsons INR GUIDELINES SEE BELOW Normal [facility] Comment on above: Result Comment: VISHAL RED INR: 2.0 - 3.0 CONDITIONS NOT LISTED BELOW 2.5 - 3.5 FOR PROSTHETIC HEART VALVE REPLACEMENT 2.5 - 3.5 RECURRENT THROMBOSIS Performed By: #### P TT, PT #### [facility] [address] [place] [address] Dr. Dimple Parsons PT Coag (PPP) [Time] 11.2 s Normal 9.0-11.6 [facility] Comment on above: Performed By: #### P TT, PT #### [facility] [address] [place] [address] Dr. Dimple Parsons PTTon 01-13-2022 aPTT Coag (Bld) [Time] 35.1 s Normal 22.3-36.2 Th [facility] Comment on above: Performed By: #### P TT, PT #### [facility] [address] [place] [address] Dr. Dimple Parsons Patient Educationon 01-14-20 Patient [...] 02/14/2013 Document Revised: 10/18/2018 Document Reviewed: 10/18/2018 [employer] Patient Education ? 2020 [employer] Normal [facility] TSHon 01-13-2022 TSH 1.528 uIU/mL Normal 0.358-3.74 0 [facility] Comment on above: Performed By: #### T SH #### [facility] [address] [place] [address] Dr. Dimple Parsons PAP ACOG PANEL 2: 30 to 65on 12-26-2021 . . Normal [facility] Comment on above: Result Comment: Perf ormed at: WB Performed By: #### C BC #### [facility] [address] [place] [address] Dr. Dimple Parsons Age Gdln ACOG Testing 30-65 Normal [facility] Comment on above: Performed By: #### C BC #### [facility] [address] [place] [address] Dr. Dimple Parsons DIAGNOSIS: Comment Normal [facility] Comment on above: Result Comment: NEGA TIVE FOR INTRAEPITHELIAL LESION OR MALIGNANCY. Performed at: WB Performed By: #### C BC #### [facility] [address] [place] [address] Dr. Dimple Parsons HPV Aptima Negative Normal Negative [facility] Comment on above: Result Comment: This nucleic acid amplification test detects fourteen high-risk HPV types (16,18,31,33,35,39,45,51,52,56,58,59,66,68) without differentiation. Performed at: =G Performed By: #### C BC #### [facility] [address] [place] [address] Dr. Dimple Parsons Methodology: Comment [facility] Comment on above: Result Comment: This liquid based ThinPrep(R) pap test was screened with the use of an image guided system. Performed at: WB Performed By: #### C BC #### [facility] [address] [place] [address] Dr. Dimple Parsons Note: Comment Normal [facility] Comment on above: Result Comment: The Pap smear is a screening test designed to aid in the detection of premalignant and malignant conditions of the uterine cervix. It is not a diagnostic procedure and should not be used as the sole means of detecting cervical cancer. Both false-positive and false-negative reports do occur. . Performed at: WB Performed By: #### C BC #### [facility] [address] [place] [address] Dr. Dimple Parsons Performed by: Comment Normal [facility] Comment on above: Result Comment: [employer] (ASCP) Performed at: WB Performed By: #### C BC #### [facility] [address] [place], [place] [address] Dr. Dimple Parsons Specimen adequacy: Comment Normal [facility] Comment on above: Result Comment: Sati sfactory for evaluation. No endocervical component is identified. Performed at: WB Performed By: #### C BC #### [facility] [address] [place], [place] [address] Dr. Dimple Parsons COVID Quick Testingon 2021 Result Negative [facility] Other Vital Signs Date Time Vital Sign Value Performing Clinician Facility 03-15-2024 11:31-0500 Body height 175.26 cm [facility] 03-15-2024 11:31-0500 Body mass index (BMI) [Ratio] 31.3 kg/m2 [facility] 03-15-2024 11:31-0500 Body temperature 96.5 [degF] [facility] 03-15-2024 11:31-0500 Body weight 96.27 kg [facility] 03-15-2024 11:31-0500 Diastolic blood pressure 72 mm[Hg] [facility] 03-15-2024 11:31-0500 Heart rate 92 /min [facility] 03-15-2024 11:31-0500 SaO2% (BldA) [Mass fraction] 97 % [facility] 03-15-2024 11:31-0500 Systolic blood pressure 122 mm[Hg] [facility] 02-15-2024 13:04-0500 Body height 175.26 cm [facility] 02-15-2024 13:04-0500 Body mass index (BMI) [Ratio] 31.8 kg/m2 [facility] 02-15-2024 13:04-0500 Body temperature 97.3 [degF] [facility] 02-15-2024 13:04-0500 Body weight 97.63 kg [facility] 02-15-2024 13:04-0500 Diastolic blood pressure 80 mm[Hg] [facility] 02-15-2024 13:04-0500 Heart rate 114 /min [facility] 02-15-2024 13:04-0500 SaO2% (BldA) [Mass fraction] 98 % [facility] 02-15-2024 13:04-0500 Systolic blood pressure 122 mm[Hg] [facility] 12-02-2023 10:38-0400 Body height 175.26 cm [facility] 12-02-2023 10:38-0400 Body mass index (BMI) [Ratio] 31.3 kg/m2 [facility] 12-02-2023 10:38-0400 Body weight 96.16 kg [facility] 12-02-2023 10:38-0400 Diastolic blood pressure 90 mm[Hg] [facility] 12-02-2023 10:38-0400 Heart rate 81 /min [facility] 12-02-2023 10:38-0400 Systolic blood pressure 133 mm[Hg] [facility] 10-10-2023 11:23-0400 Body height 175.26 cm [facility] 10-10-2023 11:23-0400 Body mass index (BMI) [Ratio] 31.1 kg/m2 [facility] 10-10-2023 11:23-0400 Body weight 95.84 kg [facility] 10-10-2023 11:23-0400 Diastolic blood pressure 70 mm[Hg] [facility] 10-10-2023 11:23-0400 Heart rate 98 /min [facility] 10-10-2023 11:23-0400 SaO2% (BldA) [Mass fraction] 98 % [facility] 10-10-2023 11:23-0400 Systolic blood pressure 128 mm[Hg] [facility] 10-03-2023 14:50-0400 Body height 175.26 cm [facility] 10-03-2023 14:50-0400 Body mass index (BMI) [Ratio] 31.3 kg/m2 [facility] 10-03-2023 14:50-0400 Body weight 96.16 kg [facility] 10-03-2023 14:50-0400 Diastolic blood pressure 86 mm[Hg] [facility] 10-03-2023 14:50-0400 Heart rate 85 /min [facility] 10-03-2023 14:50-0400 Systolic blood pressure 125 mm[Hg] [facility] 09-07-2023 13:03-0400 Body height 175.26 cm [facility] 09-07-2023 13:03-0400 Body mass index (BMI) [Ratio] 31.1 kg/m2 [facility] 09-07-2023 13:03-0400 Body weight 95.7 kg [facility] 09-07-2023 13:03-0400 Diastolic blood pressure 62 mm[Hg] [facility] 09-07-2023 13:03-0400 Heart rate 61 /min [facility] 09-07-2023 13:03-0400 SaO2% (BldA) [Mass fraction] 97 % [facility] 09-07-2023 13:03-0400 Systolic blood pressure 102 mm[Hg] [facility] 06-17-2023 14:03-0400 Body height 175.26 cm [facility] 06-17-2023 14:03-0400 Body mass index (BMI) [Ratio] 31.6 kg/m2 [facility] 06-17-2023 14:03-0400 Body weight 97.12 kg [facility] 06-17-2023 14:03-0400 Diastolic blood pressure 92 mm[Hg] [facility] 06-17-2023 14:03-0400 Heart rate 109 /min [facility] 06-17-2023 14:03-0400 Systolic blood pressure 136 mm[Hg] [facility] 04-04-2023 14:15-0500 Body height 175.26 cm Surya Hodges Other [facility] 04-04-2023 14:15-0500 Body mass index (BMI) [Ratio] 30.42 kg/m2 Surya Hodges Other [facility] [email or web address] Other 04-04-2023 14:15-0500 Body weight 93.44 kg Surya Hodges Other [facility] 04-04-2023 14:15-0500 Diastolic blood pressure 85 mm[Hg] Surya Hodges Other [facility] 04-04-2023 14:15-0500 Systolic blood pressure 120 mm[Hg] Surya Hodges Other [facility] 12-17-2022 08:30-0400 Body height 175.26 cm Surya Hodges Other [facility] [email or web address] Other 12-17-2022 08:30-0400 Body mass index (BMI) [Ratio] 29.5 kg/m2 Surya Hodges Other [facility] [email or web address] Other 12-17-2022 08:30-0400 Body weight 90.63 kg Surya Hodges Other [facility] [email or web address] Other 12-17-2022 08:30-0400 Diastolic blood pressure 85 mm[Hg] Surya Hodges Other [facility] [email or web address] Other 12-17-2022 08:30-0400 Systolic blood pressure 120 mm[Hg] Surya Hodges Other [facility] [email or web address] Other 12-01-2022 12:00-0400 Body temperature 97.6 [degF] MD Surya Hodges Work Phone: [facility] 12-01-2022 12:00-0400 Diastolic blood pressure 77 mm[Hg] MD Surya Hodges Work Phone: [facility] 12-01-2022 12:00-0400 Heart rate 89 /min MD Surya Hodges Work Phone: [facility] 09-20-2023 12:00-0400 Respiratory rate 20 /min MD Surya Hodges Work Phone: [facility] 12-01-2022 12:00-0400 SaO2% (BldA) [Mass fraction] 99 % MD Surya Hodges Work Phone: [facility] 12-01-2022 12:00-0400 Systolic blood pressure 116 mm[Hg] MD Surya Hodges Work Phone: [facility] 12-01-2022 05:51-0400 Body weight 89.4 kg MD Surya Hodges Work Phone: [facility] 11-30-2022 16:30-0400 Body height 175.26 cm MD Surya Hodges Work Phone: [facility] 11-29-2022 11:15-0400 Body height 175.26 cm Surya Hodges Other [facility] [email or web address] Other 11-29-2022 11:15-0400 Body mass index (BMI) [Ratio] 28.79 kg/m2 Surya Hodges Other [facility] [email or web address] Other 11-29-2022 11:15-0400 Body temperature 97.1 [degF] Surya Hodges Other [facility] Other 11-29-2022 11:15-0400 Body weight 88.45 kg Surya Hodges Other [facility] Other 11-29-2022 11:15-0400 Diastolic blood pressure 88 mm[Hg] Surya Hodges Other [facility] Other 11-29-2022 11:15-0400 SaO2% (BldA) [Mass fraction] 98 % Surya Hodges Other [facility] Other 11-29-2022 11:15-0400 Systolic blood pressure 124 mm[Hg] Surya Hodges Other [facility] Other 11-18-2022 08:30-0400 Body height 175.26 cm Surya Hodges Other [facility] Other 11-18-2022 08:30-0400 Body mass index (BMI) [Ratio] 28.59 kg/m2 Surya Hodges Other [facility] Other 11-18-2022 08:30-0400 Body weight 87.82 kg Surya Hodges Other [facility] Other 11-18-2022 08:30-0400 Diastolic blood pressure 89 mm[Hg] Surya Hodges Other [facility] Other 11-18-2022 08:30-0400 Systolic blood pressure 131 mm[Hg] Surya Hodges Other [facility] Other 11-05-2022 10:00-0400 Body height 175.26 cm Surya Hodges Other [facility] Other 11-05-2022 10:00-0400 Body mass index (BMI) [Ratio] 29.68 kg/m2 Surya Hodges Other [facility] Other 11-05-2022 10:00-0400 Body weight 91.17 kg Surya Hodges Other [facility] Other 11-05-2022 10:00-0400 Diastolic blood pressure 85 mm[Hg] Surya Hodges Other [facility] Other 11-05-2022 10:00-0400 Systolic blood pressure 134 mm[Hg] Surya Hodges Other [facility] Other 10-18-2022 08:30-0400 Body height 175.26 cm Surya Hodges Other [facility] Other 10-18-2022 08:30-0400 Body mass index (BMI) [Ratio] 28.94 kg/m2 Surya Hodges Other [facility] Other 10-18-2022 08:30-0400 Body weight 88.91 kg Surya Hodges Other [facility] Other 10-18-2022 08:30-0400 Diastolic blood pressure 89 mm[Hg] Surya Hodges Other [facility] Other 10-18-2022 08:30-0400 Systolic blood pressure 137 mm[Hg] Surya Hodges Other [facility] Other 09-09-2022 10:15-0400 Body height 175.26 cm Surya Hodges Other [facility] Other 09-09-2022 10:15-0400 Body mass index (BMI) [Ratio] 29.12 kg/m2 Surya Hodges Other [facility] Other 09-09-2022 10:15-0400 Body weight 89.45 kg Surya Hodges Other [facility] Other 09-09-2022 10:15-0400 Diastolic blood pressure 89 mm[Hg] Surya Hodges Other [facility] Other 09-09-2022 10:15-0400 Respiratory rate 12 /min Surya Hodges Other [facility] Other 09-09-2022 10:15-0400 Systolic blood pressure 132 mm[Hg] Surya Hodges Other [facility] Other 05-21-2022 10:01-0500 Blood Pressure Location Kamaljit ROMERO [facility] 05-21-2022 10:01-0500 Diastolic blood pressure 80 mm[Hg] Kamaljit ROMERO [facility] 05-21-2022 10:01-0500 Heart rate 85 /min Kamaljit ROMERO [facility] 05-21-2022 10:01-0500 Systolic blood pressure 119 mm[Hg] Kamaljit ROMERO [facility] 01-13-2022 08:36-0400 Blood Pressure Location SANIYAMT WALDRONRY [facility] 01-13-2022 08:36-0400 Diastolic blood pressure 90 mm[Hg] SANIYA MANDEEP [facility] 01-13-2022 08:36-0400 Heart rate 91 /min SANIYA MANDEEP [facility] 01-13-2022 08:36-0400 Respiratory rate 16 /min SANIYA MANDEEP [facility] 01-13-2022 08:36-0400 Systolic blood pressure 134 mm[Hg] SANIYA MANDEEP [facility] 04-08-2021 15:30-0500 Body height 175.26 cm Treasure Quezada Other [facility] Other 04-08-2021 15:30-0500 Body mass index (BMI) [Ratio] 29.97 kg/m2 Treasure Quezada Other [facility] Other 04-08-2021 15:30-0500 Body temperature 96.6 [degF] Treasure Quezada Other [facility] Other 04-08-2021 15:30-0500 Body weight 92.08 kg Treasure Quezada Other [facility] Other 04-08-2021 15:30-0500 Respiratory rate 18 /min Treasure Quezada Other [facility] Other 04-08-2021 15:30-0500 SaO2% (BldA) [Mass fraction] 98 % Treasure Quezada Other [facility] Other Encounters Encounter Date Encounter Type Care Provider Facility Start: 03-15-2024 End: 03-15-2024 [facility] Work Phone: Start: 03-15-2024 End: 03-15-2024 Patient encounter procedure [facility] Work Phone: Start: 02-15-2024 End: 02-15-2024 Patient encounter procedure [facility] Work Phone: Start: 12-02-2023 End: 12-02-2023 ambulatory [facility] Work Phone: Start: 12-02-2023 End: 12-02-2023 Patient encounter procedure [facility] Work Phone: Start: 10-10-2023 End: 10-10-2023 Patient encounter procedure [facility] Work Phone: Start: 10-05-2023 Patient encounter status [facility] Start: 10-03-2023 End: 10-03-2023 ambulatory [facility] Work Phone: Start: 10-03-2023 End: 10-03-2023 Encounter for general adult medical examination without abnormal findings [facility] Start: 10-03-2023 End: 10-03-2023 Patient encounter procedure [facility] Physician [facility] Work Phone: Start: 09-07-2023 End: 09-07-2023 ambulatory [facility] Work Phone: Start: 09-07-2023 End: 09-07-2023 Patient encounter procedure [facility] Work Phone: Start: 07-12-2023 Non-patient / Non-visit [facility] [employer] Work Phone: Start: 06-17-2023 End: 06-17-2023 ambulatory [facility] Work Phone: Start: 06-17-2023 End: 06-17-2023 Patient encounter procedure [facility] Work Phone: Start: 05-04-2023 End: 05-04-2023 ambulatory [facility] Work Phone: Start: 05-04-2023 End: 05-04-2023 Patient encounter procedure [facility] Work Phone: Start: 05-02-2023 Non-patient / Non-visit [facility] [employer] Work Phone: Start: 04-21-2023 End: 04-21-2023 ambulatory YESICA BECKER Not Available Start: 04-21-2023 End: 04-21-2023 Online digital e/m svc est pt <7 d 11-20 minutes Yesica Becker PA Work Phone: [facility] Comment on above: Insulin resistance; Metabolic syndrome; Hormone imbalance Start: 04-04-2023 End: 04-04-2023 ambulatory Surya Hodges Other [facility] Other Start: 04-04-2023 Office outpatient vi sit 15 minutes Surya Hodges [facility] Start: 04-04-2023 End: 04-04-2023 Patient encounter procedure [facility]- Start: 03-11-2023 End: 03-11-2023 ambulatory Surya Hodges Other [facility] Other Start: 03-11-2023 Telephone encounter Surya Hodges [facility] Start: 03-11-2023 Patient encounter procedure [facility]- Start: 02-09-2023 End: 02-09-2023 ambulatory YESICA BECKER Not Available Start: 01-12-2023 End: 01-12-2023 ambulatory Surya Hodges Other [facility] Other Start: 01-12-2023 Telephone encounter Surya Hodges [facility] Start: 12-17-2022 End: 12-17-2022 ambulatory Surya Hodges Other [facility] Other Start: 12-17-2022 Office outpatient vi sit 15 minutes Surya Hodges [facility] Start: 11-30-2022 End: 12-01-2022 Evaluation and management of inpatient MD Surya Hodges Work Phone: [facility] Work Phone: Start: 11-30-2022 End: 12-01-2022 observation encounter MD Surya Hodges Work Phone: [facility] Work Phone: Start: 11-30-2022 End: 12-01-2022 ambulatory Baljinder Polanco [facility] Other Start: 11-30-2022 Telephone encounter Surya Hodges [facility] Start: 11-29-2022 End: 11-29-2022 ambulatory Surya Hodges Other [facility] Other Start: 11-29-2022 Office outpatient vi sit 15 minutes Surya Hodges [facility] Start: 11-29-2022 Telephone encounter Surya Hodges [facility] Start: 11-18-2022 End: 11-18-2022 ambulatory Surya Hodges Other [facility] Other Start: 11-18-2022 Office outpatient vi sit 10 minutes Surya Hodges [facility] Start: 11-05-2022 End: 11-05-2022 ambulatory Surya Hodges Other [facility] Other Start: 11-05-2022 Office outpatient vi sit 10 minutes Surya Hodges [facility] Start: 11-04-2022 End: 11-04-2022 ambulatory Surya Hodges Other [facility] Other Start: 11-04-2022 Telephone encounter Surya Hodges [facility] Start: 10-18-2022 End: 10-18-2022 ambulatory Surya Hodges Other [facility] Other Start: 10-18-2022 Office outpatient vi sit 10 minutes Surya Hodges [facility] Start: 09-17-2022 End: 09-17-2022 ambulatory Surya Hodges Other [facility] Other Start: 09-17-2022 Telephone encounter Surya Hodges [facility] Start: 09-09-2022 End: 09-09-2022 ambulatory Surya Hodegs Other [facility] Other Start: 09-09-2022 Office outpatient vi sit 15 minutes Surya Hodges [facility] Start: 09-03-2022 ambulatory Kamaljit Hannah ty:[facility] Start: 06-18-2022 Encounter for other preprocedural examination DR BRENT ROLAND . [facility] Start: 06-16-2022 End: 06-16-[address] BRENT ROLAND . Facility: Start: 06-14-2022 End: 06-15-[address] BRENT ROLAND . Facility:[facility] Start: 06-14-2022 End: 06-15-2022 Encounter for other preprocedural examination DR BRENT ROLAND . Facility:[facility] Start: 06-04-2022 End: 06-05-[address] BRENT ROLAND . Facility:[facility] Start: 05-25-2022 End: 05-26-[address] BRENT ROLAND . Facility: Start: 05-21-2022 End: 05-22-2022 ambulatory Kamaljit ROMERO Facility:[facility] Start: 05-21-2022 End: 05-21-2022 Patient encounter procedure Kamaljit ROMERO [facility] Start: 05-20-2022 End: 05-21-[address] SURYA HODGES Facility: Start: 05-08-2022 End: 05-08-[address] SURYA HODGES Facility:[facility] Start: 03-23-2022 End: 04-16-2022 ambulatory BRINA SAUCEDAEN Facility:[facility] Start: 03-16-2022 End: 03-16-2022 ambulatory Surya Hodges Other [facility] Other Start: 03-16-2022 Office outpatient vi sit 15 minutes Surya Hodges [facility] Start: 02-25-2022 Gynecological examin ation normal Surya Hodges Other [facility] Other Start: 02-25-[address] SURYA HODGES Facil ity:[facility] Start: 02-21-2022 End: 02-21-2022 ambulatory Treasure Quezada Facility:[facility] Start: 02-21-2022 End: 02-21-2022 ambulatory MD Surya Hodges Work Phone: [facility] Work Phone: Start: 02-21-2022 End: 02-21-2022 Patient encounter procedure MD Surya Hodges Work Phone: [facility] Start: 01-19-2022 End: 01-20-2022 ambulatory Dee Mirza Facility:[id number] Start: 01-13-2022 End: 01-14-[address] BRENT ROLAND . Facility: Start: 01-13-2022 ambulatory Kamaljit ROMERO [facility] Start: 01-13-2022 End: 01-14-2022 ambulatory RONDA KAUFMAN [facility] Start: 01-13-2022 End: 01-13-2022 Patient encounter procedure SANIYA KAUFMAN [facility] Start: 12-21-2021 End: 12-21-[address] BRENT ROLAND . Facility: Start: 04-08-2021 (URG) Urgent Care Visit Treasure pimentel [facility] Start: 04-08-2021 End: 04-08-2021 ambulatory Treasure Quezada Other [facility] Other Start: 05-16-2020 Pre-procedure evalua tion check Surya Hodges Other [facility] Other Procedures Date Procedure Procedure Detail Performing Clinician Start: 11-30-2022 Ultrasonography of liver MD Surya Hodges Work Phone: Start: 11-30-2022 Respiratory Panel (PCR) MD Surya Hodges Work Phone: Start: 11-30-2022 Plain chest X-ray MD Kike Hodges Work Phone: Start: 02-21-2022 X-ray of left ankle MD Surya Hodges Work Phone: Start: 01-19-2022 Injection of urethra Margret ROMERO Appendectomy SANIYA KAUFMAN Cholecystectomy SANIYA PATRICIA Depression screening Surya Hodges Other Hysterectomy SANIYA KAUFMAN Hysterectomy Surya Hodges Other Insertion of intraut erine contraceptive device Surya Hodges Other MRI guided ablation of uterine fibroid SANIYA KAUFMAN End: 06-01-2018 Removal of intrauterine device Surya Hodges Other Plan of Treatment Date Care Activity Detail Author Start: 12-01-2022 [facility] Start: 11-30-2022 Hospital admission [facility] Start: 11-12-2022 Influenza vaccination Influenza Vacc ine (#1) [facility] Start: 06-10-2019 Screening for malign ant neoplasm of cervix [facility] Start: 2010 Screening for malign ant neoplasm of cervix Pap Smear [facility] CBC W Auto Different ial panel - Blood CBC and differential Lab Routine Metabolic syndrome Hormone imbalance Ordered: 04/21/2023 [facility] Work Phone: Comment on above: Ordered: 04/21/2023 Comprehensive metabo lic 2000 panel - Serum or Plasma [facility] Patient Education Mediterranean Diet Hyperthyroidism (Overactive Thyroid) (DC) Propranolol Prediabetes (DC) [facility] Work Phone: Patient referral [facility] Work Phone: XR Knee - left 4 Views [facility] Immunizations Immunization Date Immunization Notes Care Provider Fa miya 04-20-2021 SARS-CoV-2 (COVID-19 ) mRNA BNT-162b2 vax SANIYA KAUFMAN [facility] Comment on above: Result Comment: 2021: T[facility]ALL 08-14-2020 SARS-CoV-2 (COVID-19 ) Ad26 vaccine, recombinant SANIYA KAUFMAN [facility] Comment on above: Result Comment: 2021: [facility]ALL Payers Date Payer Category Payer Self-pay [id number] 2021 Unknown BCBS BCBS xxxxxx [id number] 2021-Present [phone] [address] [place] [address] [id number] 1989 Unknown [id number] 2.16.840.1.853737.3.579.2. 727 1990 Unknown [id number] 2.16.840.1.689479.3.579.2. 727 1989 Unknown [id number] 2.16.840.1.188225.3.579.2. 727 1989 Unknown [id number] 2.16.840.1.869604.3.579.2. 727 1989 Unknown [id number] 2.16.840.1.390305.3.579.2. 593 1989 Unknown [id number] 2.16.840.1.534303.3.579.2. 593 1989 Unknown [id number] 2.16.840.1.797866.3.579.2. 593 1989 Unknown [id number] 2.16.840.1.996286.3.579.2. 593 1989 Unknown [id number] 2.16.840.1.558176.3.579.2. 593 1989 Unknown [id number] 2.16.840.1.567178.3.579.2. 593 1989 Unknown [id number] 2.16.840.1.585497.3.579.2. 593 1989 Unknown [id number] 2.16.840.1.242332.3.579.2. 593 1989 Unknown [id number] 2.16.840.1.242424.3.579.2. 593 1989 Unknown [id number] 2.16.840.1.541883.3.579.2. 593 1989 Unknown [id number] 2.16.840.1.648990.3.579.2. 593 1989 Unknown [id number] 2.16.840.1.701392.3.579.2. 593 1989 Unknown [id number] 2.16.840.1.834882.3.579.2. 1259 1989 Unknown [id number] 2.16.840.1.996158.3.579.2. 1259 1960 [id number] 2.16.840.1.585898.19 Unknown Harpal BC/BS [id number] Unknown [id number] 2.16.840.1.766476.3.579.2. 531 Unknown [id number] 2.16.840.1.939913.3.579.2. 531 Social History Date Type Detail Facility Unknown if ever smoked [facility] Other Start: 02-09-2023 Sex Assigned At F [facility] Start: 01-13-2022 End: 09-07-2023 Tobacco smoking status Never smoked tobacco (finding) [facility] Tobacco smoking status Never [facility] Start: 1990 Sex Assigned At Female F [facility] Start: 02-09-2023 Alcohol intake Ex-drinker (finding) [facility] Start: 02-09-2023 History of Social function [facility] Start: 09-24-2022 Alcohol Comment occasional: dr kam wine & beer [facility] Start: 09-27-2022 Gender identity Identifies as female gender (finding) [facility] Start: 01-02-2025 Sex Female (finding) [facility] Goals Date Patient Goal Desired Activity /State Functional Status Date Assessment Result Facility 12-01-2022 Functional status Patient at Baseline [facility] Work Phone: 05-21-2022 Functional Status N/A [facility] 01-13-2022 Functional Status N/A [facility] Mental Status Date Assessment Result Facility 12-01-2022 Cognitive function Cognitive Sta tus Patient at Baseline [facility] Work Phone: Clinical Notes 04-08-2021 to 02-15-2024 Note Date & Type Note Facility 02-15-2024 Evaluation note Diagnosis Onset Date Resolution Bronchitis acute February 15, 2024 1:00pm Maxillary sinusitis acute Decem 2023 1:00pm Obesity (BMI 30.0-34.9) acute February 14 1:00pm [facility] Work Phone: 1(161) 477-704602-08-2024 History of Present illness Narrative* MARGRET Canales - 04/21/2023 8:50 AM EST Reason for Appointment: Patient ID: Tootie Alfaro is a 32 y.o. female who presents for telehealth follow up Patient presents today via telephone call for a telehealth appointment. Patients Phone #: [phone] (mobile) Current Medications: has a current medication [...] LIGATION Bilateral 2012 Allergies Allergen Reactions Adacel [Ejdsejf-Kwghjj-Kzyps Pertussis] Swelling Clindamycin Rash Vitals: Estimated body [...] for cbc check for kidney function to [facility]. Pt aware and agrees to have blood work obtained. She will follow up in office in 3 months Documented by MARGRET Canales on behalf of: MARGRET Canales * Hedy Carter MA - 04/21/2023 8:50 AM EST Cbc order was sent to [facility] for pt to have done. documented in this encounterHCA Midwest [id number] Evaluation note* Encounter Date Diagnosis Assessment Notes Treatment Notes Treatment Clinical Notes Mar, Bronchitis (ICD-10 - J40) Discussed diagnosis with patient. Finish entire course of antibiotic. Proair inhaler sent today for patient to use PRN cough/wheezing/short ness of breath. Tessalon Pearles ordered to take as needed for cough. Increase fluids and rest. Yheo-arv-aapcccq antipyretics as needed. Warning signs and symptoms reviewed with patient today. Patient to go immediately to the ER should she experience any of these. Patient to notify office should her symptoms persist and not improve. Patient verbalizes understanding and agrees to treatment plan. Mar, Vaginal yeast infection (ICD-10 - B37.31) Pt requests diflucan to cover probable yeast infection w antibiotic. Fredio Other 12-29-2023 Evaluation note* Encounter Date Diagnosis Assessment Notes Treatment Notes Treatment Clinical Notes Feb, Sore throat (ICD-10 - J02.9) [facility] Other 10-06-2023 Evaluation note* Encounter Date Diagnosis Assessment Notes Treatment Notes Treatment Clinical Notes Dec, Hypothyroidism (ICD-10 - E03.9) Recheck in next 4-6 weeks. Continue healthy diet and exercise. [facility] Other 09-20-2023 Discharge summary Author Baljinder Polanco [facility] December 01, 2022 5:19pm Note Date/Time December 01, 2022 1:02pm [facility] [address] [place] [address] Discharge Summary Signed Patient: Karlene Alfaro MR#: [id number] : 1990 Acct:[id number] Age/Sex: 32 / F Adm Date: 3 Loc: Room: [address] [place] [address]: Baljinder Polanco MD Copies to: [...] Clear, Urine pH >= 9.0, Ur Specific Greeley 1.013, Urine Protein Negative, Urine Glucose (UA) [...] % (Auto) 59.2, Lymph % (Auto) 32.3, Andrews % (Auto) 6.8, Eos % (Auto) 0.9, Baso % (Auto) 0.8, Nucleat RBC Rel Count 0.2, Neut # (Auto) 4.9, Lymph # (Auto) 2.7, Andrews # (Auto) 0.6, Eos # (Auto) 0.1, Baso # (Auto) 0.1, Monocyte Dist Width19.22 11/30/22 13:00: PHA Creatinine Clear 114.08, Sodium 138, Potassium 4.1, Iqyiqpnq187, Carbon Dioxide 23.9, Anion Gap 14.2, BUN 9, Creatinine 0.83, Est GFR (CKD-EPI) > 60.0, Glucose 77, Calcium 9.5, Magnesium 1.9, Total Bilirubin 0.9, DirectBilirubin 0.00 L, Indirect Bilirubin 0.9, AST 11 L, ALT 16, Alkaline Dpadbmomlth46, Total Protein 7.6, Albumin 4.4, Globulin 3.2, [...] needed.) Documented By: Baljinder Polanco MD 12/01/22 1259 Signed By: <Electronically signed by Baljinder Polanco MD> 12/01/22 7121 [facility] Work Phone: 1(878) 835-663809-19-2023 History and physical note Author Baljinder Polanco [facility] November 30, 2022 4:34pm Note Date/Time November 30, 2022 4:34pm [facility] [address] [place] [address] Hospitalist H&P Signed Patient: Karlene Alfaro MR#: [id number] : 1990 Acct:[id number] Age/Sex: 32 / F Adm Date: 3 Loc: Room: [address] [place] [address] Type: ADM IN Attending Dr: Baljinder Polanco [...] rub or JVD. Peripheral pulses present bilaterally. Umlhp-tb-cwqe ultrasound is unremarkable. Lungs are clear to [...] contributes to her symptoms. DVT prophylaxis Xarelto [facility] Medical History (Updated 11/30/22 @ 15:13 [...] % (Auto) 32.3 % (.) 11/30/22 13:00 Andrews % (Auto) 6.8 % (.) 11/30/22 13:00 Eos % (Auto) 0.9 % (.) 11/30/22 13:00 Baso % (Auto) 0.8 % (.) 11/30/22 13:00 Nucleat RBC Rel Count 0.2 /100 WBC (0-0.5) 11/30/22 13:00 Neut # (Auto) 4.9 x10E3/uL (1.8-7.7) 11/30/22 13:00 Lymph # (Auto) 2.7 x10E3/uL (1.00-4.8) 11/30/22 13:00 Andrews # (Auto) 0.6 x10E3/uL (0.0-0.8) 11/30/22 13:00 [...] >= 9.0 (5.0-9.0) 11/30/22 16:04 Ur Specific Greeley 1.013 (1.001-1.030) 11/30/22 16:04 Urine Protein Negative [...] signed by Baljinder Polanco MD> 11/30/22 1634 [facility] Work Phone: 1(883) 126-571609-18-2023 Evaluation note* Encounter Date Diagnosis Assessment Notes [...] - E03.9) 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 Complete all doses. Wash all belongings that came in contact with plant oils. May continue to use Calamine lotion. Patient verbalized understanding and agreement with treatment plan. Fredio Other 08-07-2023 Evaluation note* Encounter Date Diagnosis [...] to ER and Follow-up with me immediately. Fredio Other 07-07-2023 Evaluation note* Encounter Date Diagnosis Assessment Notes Treatment Notes Treatment Clinical Notes Sep, Overweight (ICD-10 - E66.3) Sep, Body mass index [BMI] 29.0-29.9, adult (ICD-10 - Z68.29) Fredio Other 06-29-2023 Evaluation note* Encounter Date Diagnosis Assessment Notes Treatment Notes Treatment Clinical Notes Aug, Acute contact dermatitis (ICD-10 - L25.9) Take medications as directed. Complete all doses. Wash all belongings that came in contact with plant oils. May continue to use Calamine lotion. Patient verbalized understanding and agreement with treatment plan. Fredio Other 04-05-2023 NoteOPERATIVE NOTE OPERATION DATE: 06/16/2022 PROCEDURE: Diagnostic laparoscopy. PREOPERATIVE DIAGNOSIS: Pelvic pain, left ovarian cyst. POSTOPERATIVE DIAGNOSIS: Pelvic pain, left ovarian cyst. ANESTHESIA: General. SURGEON: Brent Roland D.O. TELEVISION PRODUCTION CLERK: MIRNA Harden URINE OUTPUT: Yellow and clear. [...] taken to Recovery Room in stable condition.[id number] Discharge instructions Patient Education 05/21/2022 10:45:43 Kidney Stones, Rwuv-ih-Ynht Kidney Stones Kidney stones are rock-like masses [...] Follow these instructions at home: Medicines Take qcvw-xxo-xreovvc and prescription medicines only as told by [...] 08/16/2008 Document Revised: 07/17/2019 Document Reviewed: 07/17/2019 [employer] Patient Education 2019 [employer]. Follow Up Care 05/11/2022 13:32:37 With:LUCY STILES, Kamaljit Rivas, URL Address: [address] [place] [address]- When: Unknown [facility] 01-03-2023 Evaluation note* Encounter Date Diagnosis Assessment Notes Treatment Notes Treatment Clinical Notes Mar, Pharyngitis, unspecified etiology (ICD-10 - J02.9) New medications as directed. Increase fluids, rest, good hand washing. OTC for fever/discomfort. 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 F/U if no improvement in the next 72 hours Mar, Vaginal yeast infection (ICD-10 - B37.31) Will treat empirically for yeast, discharge and sx reported consistent with that of vaginal candidiasis. Instructed patient to take as directed, advised that she should feel improvement in about 2 days. Fredio Other 11-02-2022 NoteChief Complaint Referral-Stress Incontinence HPI Staff Evaluation requested by Dr Rloand due to stress incontinence. Pt is a [...] E&M of New Patient Moderate 45-59 Min 94833 Measure Post Void residual urine and/or bladder capacity by US- non-imaging 77813 Urnls Dip Stick Auto w/o Microscopy POC 34822 Follow-up With When Contact Information [facility] [place] [address] Business (1) Additional Instructions: for [...] Dipstick: Negative (01/13/22 08:33:00) (more content not included)...[facility]:Result Comment: Electronically Signed By: SANIYA KAUFMAN PA-C\dean\Date and Time Signed: 01/13/2211:04 [id number] Hospital Discharge instructions Patient Education 01/13/2022 11:03:33 [...] 02/14/2013 Document Revised: 10/18/2018 Document Reviewed: 10/18/2018 [employer] Patient Education 2020 [employer] Follow Up Care 01/11/2022 14:36:11 With:[facility] Address: [address] [place] [address] Business (1) When: Unknown Comments:for procedure as scheduled [facility] 01-26-2022 Evaluation note* Encounter Date Diagnosis [...] Patient care instructions given in writting by [facility] Care At Home document. Fredio Other Evaluation + Plan note No data available for this section [facility] evaluation + Plan note Future Appointments Appointment Date:09/03/2022 08:00:00 AM Scheduled Provider:Kamaljit ROMERO MD Location:[facility] Appointment Type:URO Office Visit [facility] evaluation noteNo assessment information available [facility] [employer] Work Phone: Evaluation noteNo InformationNort Outline App Other Evaluation note* Diagnosis Onset Date Resolution Status Chest pain acute Tachycardia acute [facility] [employer] Work Phone: Evaluation note* Diagnosis Insulin resistance Other abnormal glucose Metabolic syndrome Dysmetabolic Syndrome X Hormone imbalance documented in this encounter [facility] Diagnosis Onset Date Resolution Status Allergic reaction due to antibacterial drug acute Streptococcus pharyngitis ac [employer] [facility] Work Phone: Evaluation note* Diagnosis Onset Date Resolution Status Anxiety acute Thyroid disease acute Migraines acute Screening for lipid disorders acute Screening for metabolic disorder acute Screening, deficiency anemia, iron acute [facility] Work Phone: Evaluation note* Diagnosis Onset Date Resolution Status Migraines acute Screening for lipid disorders acute Screening for metabolic disorder acute Screening, deficiency anemia, iron acute Left knee pain acute [facility] Work Phone: Evaluation note* Diagnosis Onset Date Resolution Status Migraines acute Screening for lipid disorders acute Screening for metabolic disorder acute Screening, deficiency anemia, iron acute Left knee pain acute Wellness examination acute Poison abena dermatitis acute [facility] Work Phone: Hisvnim general Narrative - Reported* Type Description Date Medical History hypothyroidism Surgical History gallbladder removal Surgical History appendecs Surgical History ovarian cysts taken out in 2007 Surgical History hysterectomy Hospitalization History surgeries Hospitalization History child [facility] [email or web address] Other Hisvjtg general Narrative - Reported* Type Description Date Medical History hypothyroidism Surgical History gallbladder removal Surgical History appendecs Surgical History ovarian cysts taken out in 2007 Surgical History hysterectomy Hospitalization History surgeries Hospitalization History child Hospitalization History [facility] chest pain 11/2022 [facility] [email or web address] Other Hospital Discharge instructions Additional Instructions You have slightly elevated cholesterol level and prediabetes. Try to eat a healthier diet. Mediterranean diet is the best studied to improve health outcomes. I attached some instructions. Establish care with a primary care physician who will manage all your health issues.[facility] Work Phone: Progress note No data available for this section [facility] Advance Directives Advance Directive Response [...] of colon Unknown Not Specified Hypertension Unknown Relationship Condition Age at Onset Recorded Date/T pool grandparent Myocardial infarction Unknown History of coronary artery bypass surgery Unknown Malignant neoplasm of colon Unknown mother Hypertension Unknown Chief Complaint and Reason for Visit Chief Complaint chest pain sob Reason for Visit Chest pain Tachycardia Chief Complaint Cough/ Chest Fever, Strep Throat, No Voice, Work Note Chief Complaint Cough/ Chest Fever, Strep Throat, No Voice, Work Note Anxiety Reason for Visit Allergic reaction du e to antibacterial drug Streptococcus pharyngitis Chief Complaint Anxiety Amb Documentation migraine Reason for Visit Anxiety Thyroid disease Migraines Screening for lipid disorders Screening for metabolic disorder Screening, deficiency anemia, iron Chief Complaint Amb Documentation migraine wellness, left hip pain Reason for Visit Migraines Screening for lipid disorders Screening for metabolic disorder Screening, deficiency anemia, iron Left knee pain Chief Complaint migraine wellness, left hip pain posion abena swollen eye Reason for Visit Migraines Screening for lipid disorders Screening for metabolic disorder Screening, deficiency anemia, iron Left knee pain Wellness examination Poison abena dermatitis Chief Complaint Admit Date head congestion February 15, 2024 1 :00pm 4 week follow up March 15, 2024 11 :26am Reason for Visit Admit Date Bronchitis February 15, 2024 1 :00pm Maxillary sinusitis February 15, 2024 1 :00pm Obesity (BMI 30.0-34.9) February 14 1:00pm Additional Source Comments REASON FOR VISIT (unrecogniz ed section and content) Reason Comments telehealth follow up Patient Care team informatio n (unrecognized section and content) Team Status: Active Member Role Status Dates Surya Hodges MD Primary Care Provider Active Team Status: Inactive Member Role Status Dates Surya Hodges MD Primary Care Provider Active Start: September 07, 2023 End: September 07, 2023 TAYLOR Harry Attending Provider Act ellie Start: September 07, 2023 End: September 07, 2023 Team Status: Inactive Member Role Status Dates Surya Hodges MD Primary Care Provide r, Attending Provider Active Start: October 03, 2023 End: October 03, 2023 Team Status: Inactive Member Role Status Dates Surya Hodges MD Primary Care Provider Active Start: October 10, 2023 End: October 10, 2023 Saniya Mays APRN NP-C Attending Provider Act ellie Start: October 10, 2023 End: October 10, 2023 Team Status: Inactive Member Role Status Dates Surya Hodges MD Primary Care Provide r, Attending Provider Active Start: December 02, 2023 End: December 02, 2023 Team Status: Active Member Role Status Dates Surya Hodges MD Primary Care Provider Active Start: July 12, 2023 LISA Jenkins Attending Provider Active Start : July 12, 2023 Team Status: Inactive Member Role Status [...] Care Provide r, Attending Provider Active Start: June 17, 2023 End: June 17, 2023 Team Status: Active Member Role Status Dates Provider Conversion Attending Provider Active St art: March 11, 2023 Team Status: Inactive Member Role Status Dates Surya Hodges MD Primary Care Provider Active HANNAH RutledgeC Attending Provider Active Team Status: Inactive Member Role Status Dates Surya Hodges MD Primary Care Provider Active Marcio Steven DO Emergency Provider Active Baljinder Polanco MD Admit Provider, Attending Provider Active Water Tender Relationship Specialty Start Date End Date Surya Hodges MD [address] [place] [address] PCP - General Family Medicine 09/27/22 Team Status: Active Member Role Status Dates Saniya Mays APRN RIVER TESTER-C Primary Care Provider Active Team Status: Inactive Member Role Status Dates Saniya Mays APRN NP-C Primary Care Provider, Attending Provider Active Start: February 15, 2024 End: February 15, 2024 Team Status: Inactive Member Role Status Dates Saniya Mays APRN RIVER TESTER-C Primary Care Provider, Attending Provider Active Start: March 15, 2024 End: March 15, 2024 Goals (unrecognized section and content) Goals may be documented in a n alternate section INFORMATION SOURCE (unrecogn ized section and content) DATE CREATED AUTHOR 05/23/2022 Obinna Cooley [facility] DATE CREATED AUTHOR AUTHOR'S ORGANIZ ATION 07/01/2022 [facility] DATE CREATED AUTHOR AUTHOR'S ORGANIZ ATION 12/18/2022 [facility] DATE CREATED AUTHOR AUTHOR'S ORGANIZ ATION 04/22/2023 [facility] dical Specialists [facility] FOR RECORDS PERTAINING TO PATIENTS [...] BASED ON THE PRIMARY CLINICAL RECORDS. [facility] [employer] provides no warranty or guarantee of the accuracy or completeness of information in this document.
[2024-05-17 07:46] LABS: Basophils Absolute Auto 0.1 10^3/uL (0.0-0.1); Basophils Percent Auto 0.8 % (0.2-2.0); Eosinophils Absolute Auto 0.2 10^3/uL (0.0-0.7); Eosinophils Percent Auto 2.2 % (0.9-7.0); Hematocrit 42.4 % (36.0-48.0); Hemoglobin 13.4 g/dL (12.0-16.0); Immature Granulocytes Abs Auto 0.01 10^3/uL (0.00-0.03); Immature Granulocytes Pct Auto 0.1 % (0.0-0.5); Lymphocytes Absolute Auto 2.3 10^3/uL (1.2-3.8); Lymphocytes Percent Auto 30.5 % (20.5-60.0); Mean Corpuscular HGB Conc 31.6 g/dL (29.9-35.2); Mean Corpuscular Hemoglobin 26.8 pg (26.7-34.0); Mean Corpuscular Volume 84.8 fL (81.0-99.0); Mean Platelet Volume 9.2 fL (9.5-13.5); Monocytes Absolute Auto 0.5 10^3/uL (0.3-0.8); Monocytes Percent Auto 6.5 % (1.7-12.0); Neutrophils Absolute Auto 4.4 10^3/uL (1.4-6.5); Neutrophils Percent Auto 59.9 % (43.0-75.0); Platelet Count 374 10^3/uL (150-450); Red Cell Distribution Width 12.7 % (11.0-15.0); White Blood Count 7.4 10^3/uL (4.0-11.0)
[2024-05-17 08:27] LABS: Alanine Aminotransferase 13 U/L (14-59); Albumin Level 3.7 g/dL (3.4-5.0); Alkaline Phosphatase 75 U/L (46-116); Anion Gap 11.1; Aspartate Amino Transferase 10 U/L (15-37); BUN Creatinine Ratio 10.6; Bilirubin Total 0.9 mg/dL (0.2-1.0); Calcium 9.1 mg/dL (8.5-10.1); Carbon Dioxide 28.8 mmol/L (21.0-32.0); Chloride 103 mmol/L (98-107); Chol HDL Ratio 4.2; Cholesterol 225 mg/dL (<=200); Estimated GFR (African America >60 (>=60 mL/min/1.73m^2); Estimated GFR (Non-African Ame >60 (>=60 mL/min/1.73m^2); Free T3 2.39 pg/mL (2.18-3.98); Globulin 3.6 g/dL; Glucose 90 mg/dL (74-106); HDL Cholesterol 54 mg/dL (40-60); Potassium 3.9 mmol/L (3.5-5.1); Sodium 139 mmol/L (136-145); Thyroid Stimulating Hormone 1.358 uIU/mL (0.358-3.740); Total Protein 7.3 g/dL (6.4-8.2); Triglycerides 73 mg/dL (<=150); VLDL CHOLESTEROL 14.6 mg/dL
[2024-05-17 10:24] LABS: Free T4 0.95 ng/dL (0.76-1.46)
== END 2024-05-17 07:27 | disposition home or self-care (01) ==
LOC: LAB 07:26
PROVIDERS: PCP Family Medicine; Visit Provider Nurse Practitioner Family
DX: E03.9 Hypothyroidism, unspecified (principal); Z13.0 Encounter for screening for diseases of the blood and blood-forming organs and certain disorders involving the immune mechanism; Z13.220 Encounter for screening for lipoid disorders; E55.9 Vitamin D deficiency, unspecified; Z13.228 Encounter for screening for other metabolic disorders
CPT/HCPCS: 36415; 80053; 80061; 82306; 84439; 84443; 84481; 85025

== ENCOUNTER 2024-07-03 07:34 | Outpatient (OUT) | payer BC, SELFPAY ==
--- NOTE | 2024-07-03 | US_ITS ---
The [address] [address] Patient Name: SOO VAZQUEZ MRN: [id number] date: 1990 Sex: F Assigned Patient Location: Current Patient Location: Accession/Order Number: [id number] Exam Date: 07/03/2024 09:28 Report Date: 07/03/2024 09:30 At the request of: LION HORNE DO Procedure: US pelvis w/ transvaginal TRANSABDOMINAL AND TRANSVAGINAL PELVIC ULTRASOUND HISTORY: Left lower quadrant pain for 4 days. Hysterectomy FINDINGS: Hysterectomy The RIGHT ovary measures 3.8 x 2.9 x 2.5 cm with resistive index of 0.5 to LEFT ovary measures 3.3 x 2.9 x 2.3 cm with resistive index of 0.54. Anechoic left ovarian cyst measures up to 2.6 cm. Bilateral ovarian blood flow identified. No free fluid identified. There is no adnexal mass identified. US/US pelvis w/ transvaginal IMPRESSION: Hysterectomy. 2.6 cm left ovarian cyst. Unremarkable right ovary. No adnexal mass or free fluid. Impression dictated by: Jovan Martin M.D.07/03/2024 9:30 AM Dictation Location: [place] [address] Electronically authenticated by: [id number] Y Date: 07/03/2024 09:30
== END 2024-07-03 07:35 | disposition home or self-care (01) ==
LOC: US 07:34
PROVIDERS: PCP Family Medicine; Visit Provider Obstetrics & Gynecology
DX: R10.32 Left lower quadrant pain (principal); N83.292 Other ovarian cyst, left side
CPT/HCPCS: 76830; 76856

== ENCOUNTER 2024-07-23 10:38 | Outpatient (OUT) | payer BC, SELFPAY ==
--- NOTE | 2024-07-23 11:06 | ECG_ITS ---
The [facility] Test Date: 2024-07-23 Pat Name: SOO VAZQUEZ Department: Room: - Gender: Female Manager Image: : 1990 Requested By: LION HORNE Order Number: [id number] Reading MD: CHUY SHABAZZ M.D. Measurements Intervals [place] Rate: 71 P: 33 [place]: 148 QRS: 42 QRSD: 82 T: 30 QT: 389 QTc: 424 Interpretive Statements SINUS RHYTHM POSSIBLE RIGHT VENTRICULAR CONDUCTION DELAY [RSR (QR) IN V1/V2] Borderline ECG Compared to ECG 05/02/2023 11:46:38 Sinus tachycardia no longer present Right-axis deviation no longer present Electronically Signed On 07-23-2024 11:53:48 EDT by CHUY SHABAZZ M.D.
[2024-07-23 11:49] LABS: Basophils Absolute Auto 0.1 10^3/uL (0.0-0.1); Basophils Percent Auto 0.6 % (0.2-2.0); Eosinophils Absolute Auto 0.2 10^3/uL (0.0-0.7); Eosinophils Percent Auto 1.8 % (0.9-7.0); Hematocrit 40.5 % (36.0-48.0); Hemoglobin 13.1 g/dL (12.0-16.0); Immature Granulocytes Abs Auto 0.02 10^3/uL (0.00-0.03); Immature Granulocytes Pct Auto 0.2 % (0.0-0.5); Lymphocytes Absolute Auto 2.7 10^3/uL (1.2-3.8); Lymphocytes Percent Auto 30.8 % (20.5-60.0); Mean Corpuscular HGB Conc 32.3 g/dL (29.9-35.2); Mean Corpuscular Hemoglobin 26.6 pg (26.7-34.0); Mean Corpuscular Volume 82.3 fL (81.0-99.0); Mean Platelet Volume 9.1 fL (9.5-13.5); Monocytes Absolute Auto 0.6 10^3/uL (0.3-0.8); Monocytes Percent Auto 6.6 % (1.7-12.0); Neutrophils Absolute Auto 5.3 10^3/uL (1.4-6.5); Platelet Count 380 10^3/uL (150-450); Red Blood Count 4.92 10^6/uL (4.20-5.40); Red Cell Distribution Width 13.2 % (11.0-15.0); White Blood Count 8.8 10^3/uL (4.0-11.0)
[2024-07-23 12:15] LABS: Alanine Aminotransferase 37 U/L (14-59); Albumin Level 3.5 g/dL (3.4-5.0); Alkaline Phosphatase 70 U/L (46-116); Anion Gap 10.4; Aspartate Amino Transferase 15 U/L (15-37); BUN Creatinine Ratio 16.9; Bilirubin Total 0.3 mg/dL (0.2-1.0); Calcium 8.6 mg/dL (8.5-10.1); Carbon Dioxide 26.9 mmol/L (21.0-32.0); Chloride 105 mmol/L (98-107); Estimated GFR (African America >60 (>=60 mL/min/1.73m^2); Estimated GFR (Non-African Ame >60 (>=60 mL/min/1.73m^2); Globulin 3.6 g/dL; Glucose 88 mg/dL (74-106); Potassium 4.3 mmol/L (3.5-5.1); Sodium 138 mmol/L (136-145); Total Protein 7.1 g/dL (6.4-8.2)
== END 2024-07-23 10:39 | disposition home or self-care (01) ==
PROVIDERS: PCP Nurse Practitioner Family; Visit Provider Obstetrics & Gynecology
DX: Z01.810 Encounter for preprocedural cardiovascular examination (principal); Z01.812 Encounter for preprocedural laboratory examination; Z01.818 Encounter for other preprocedural examination; R10.2 Pelvic and perineal pain; Z90.710 Acquired absence of both cervix and uterus; N94.89 Other specified conditions associated with female genital organs and menstrual cycle
CPT/HCPCS: 80053; 85025; 93005

== ENCOUNTER 2024-08-02 11:02 | Day surgery (SDC) | payer BC, SELFPAY ==
[2024-07-23 11:30] VITALS: BP 124/85; PULSE 75; TEMP 36.4; O2SAT 99; BMI 30.7
[2024-08-02] VITALS (10 sets, daily range): BP systolic 126–166; BP diastolic 64–104; PULSE 77–101; TEMP 36.6; O2SAT 95–99; BMI 31.1
--- OUTSIDE RECORDS SUMMARY | 2024-08-02 | XMS_ITS ---
Author Name Auto Generated Organization [facility] Care Team Providers Care Pill Maker Name Role Phone Kamaljit AYALA Attending Unavailable LION HORNE Attending Unavailable LION HORNE Attending Unavailable PROBLEMS No Problem Records Found PROCEDURES No Procedure Records Found RESULTS No Result Records Found ALLERGIES DATE TYPE / CODE NAME / CODE REACTION SEVERITY SOURCE [id number]([facility]) clindamycin Unknown [facility] [id number]([facility]) azithromycin [id number] [facility] [id number]([facility]) tetanus/diphth/pertuss (Tdap) adult/adol Unknown [facility] ENCOUNTERS ADMIT/DISCHARGE ACCOUNT NUMBER ADMITTING ENCOUNTER CLASS LOCATION SOURCE 08/02/2024 [id number] Ambulatory CD:[id number] 7Building:CD :[id number] [facility] 07/23/2024/ 5 [id number] Ambulatory [facility] EPIC 07/10/2024/ 5 [id number] Ambulatory Building:[facility] EPIC PAYERS ENCOUNTER GUARANTOR PAYER SUBSCRIBER SOURCE 07/23/2024 SOO MEDINA: [address] [address]Ogu: () Primary Insurance:[facility] licy Number: [id number] ctive Date:2021-03-14 KAYLA MEDINA: [id number] [address] [address] [facility] EPIC 07/10/2024 SOO MEDINA: [address] [address]Njp: () Primary Insurance:[facility] licy Number: [id number] ctive Date:2021-03-14 KAYLA SHEIKHB: [id number] [address] [facility] EPIC
[2024-08-02 11:12] LABS: Basophils Absolute Auto 0.1 10^3/uL (0.0-0.1); Basophils Percent Auto 0.6 % (0.2-2.0); Eosinophils Absolute Auto 0.1 10^3/uL (0.0-0.7); Eosinophils Percent Auto 1.6 % (0.9-7.0); Hematocrit 43.7 % (36.0-48.0); Hemoglobin 14.1 g/dL (12.0-16.0); Immature Granulocytes Abs Auto 0.02 10^3/uL (0.00-0.03); Immature Granulocytes Pct Auto 0.2 % (0.0-0.5); Lymphocytes Percent Auto 33.4 % (20.5-60.0); Mean Corpuscular HGB Conc 32.3 g/dL (29.9-35.2); Mean Corpuscular Hemoglobin 26.7 pg (26.7-34.0); Mean Corpuscular Volume 82.8 fL (81.0-99.0); Mean Platelet Volume 8.9 fL (9.5-13.5); Monocytes Absolute Auto 0.5 10^3/uL (0.3-0.8); Monocytes Percent Auto 5.4 % (1.7-12.0); Neutrophils Absolute Auto 5.3 10^3/uL (1.4-6.5); Neutrophils Percent Auto 58.8 % (43.0-75.0); Platelet Count 369 10^3/uL (150-450); Red Blood Count 5.28 10^6/uL (4.20-5.40); Red Cell Distribution Width 13.1 % (11.0-15.0)
[2024-08-02 11:44] LABS: Glucometer 85 mg/dL (74-106)
[2024-08-02] MEDS: LACTATED RINGER'S SOLUTION 1,000 ML 50 ML IV ×3 (11:44→15:14)
[2024-08-02] MEDS: SCOPOLAMINE 1 MG/3 DAYS TRANSDERM PATCH 1 PATCH TD (11:45)
[2024-08-02] MEDS: FAMOTIDINE/PF 20 MG/2 ML VIAL IV (11:45)
[2024-08-02] MEDS: IOHEXOL 240 MG/ML - 50 ML VIAL INJ (12:56)
--- NOTE | 2024-08-02 13:42 | P.URON_ITS ---
Urology Surgery Operative Note Operative Note Procedure Date: 08/02/24 Time Out Performed: yes Pre-op Diagnosis: Left pelvic pain Post-op Diagnosis: same as pre-op Procedures performed: 1. Cystoscopy. 2. Left retrograde pyelogram. 3. Left ureteroscopy. 4. Placement of 6 Macedonian variable length left ureteral stent. 5. Placement of right ureteral catheter. Anesthesia: GETA Primary Surgeon: Kamaljit Romero Complications: None Estimated blood loss (mL): 5 Findings: 1. Normal right ureter. 2. Left distal ureteral stricture. Specimens: None Drains: Right ureteral catheter externalized to the Ghotra catheter. 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 She is getting a pelvic laparoscopy due to significant left sided pelvic pain. Urologic cystoscopy and placement of ureteral catheters was requested to help identify ureters during surgery. She has signed an informed consent after risks were explained. Detailed description of Procedure: The patient was brought to the operating room and placed on the operating room table in the supine position. SCDs were placed on the lower extremities and turned on and functioning during the entire case. Timeout was done by all parties in the room. We all agreed upon the patient's identification and the planned procedures for this patient. Genn. anesthesia was then administered. The patient was then repositioned into the modified dorsal lithotomy position. All pressure points were satisfactorily padded. Genitalia were sterilely prepped and draped in usual fashion. I started by passing a 22 Macedonian Olympus cystoscope per urethra and into the bladder. Careful panendoscopy in the bladder revealed no evidence of any tumors or stones. I then passed a 6 Macedonian open-ended ureteral catheter through the scope and cannulated the left UO. This was very stenotic. I could get the catheter up only a couple centimeters and then I met the severe resistance. I then passed a Glidewire through the scope and through the catheter but this also would not go up any further. I then removed these. I then passed a semirigid ureteroscope through the urethra into the bladder and into the left UO. I immediately got to an area of rather thick bright white indurated scar. This was a distal ureteral stricture of unknown etiology. I then did a significant retrograde through the scope and 1 could see the contrast go up the ureter and into the kidney. In this area where the stricture was lo cated there was some extravasation. I then attempted to pass a Glidewire through the scope and get into the oneida ureter beyond the strictured area. Eventually the ureteroscope was able to get through this thick scarred area and I could see some oneida appearing ureter. I then passed the wire through the scope into this area and with fluoroscopy I could watch it going up in the ureter and into the kidney. The ureteroscope was removed. The cystoscope was backloaded over the wire and passed into the bladder. I then slid a 6 Macedonian variable length stent over the wire and up the ureter and into the renal pelvis. The wire was removed and I had good curls within the renal pelvis and in the bladder. I then passed a 6 Macedonian open-ended catheter through the scope and cannulated the right ureter and it easily passed up to the kidney. The scope was removed. A Ghotra catheter was placed with an adapter for the ureteral catheters. The right ureteral catheter was externalized out the urethra and placed in the adapter. It was then tied to the Ghotra catheter with umbilical tape. I then left the room and Dr. Roland came in and did his portion of the operation. Urinary Catheter Management Urinary Catheter Management Urethral: Cath placed during this visit: no
[2024-08-02] MEDS: LEVOFLOXACIN 500 MG/100 ML-D5W PREMIX 100 MG IV (13:46)
--- NOTE | 2024-08-02 14:14 | PM.ONB ---
Brief Operative Note Date of procedure: 08/02/24 Pre-op diagnosis general: pelvic pain, lt lower quadrant pain Post-op diagnosis: same as pre-op Procedure: NAME OF PROCEDURE: [diagnostic laparoscopy, lysis of omental adhesions] cysto ureteroscopy, rt ureteroscopy, lt retrograde,lt ureteroscopy, lt stent per dr lucas PROCEDURE: The patient was taken back to the Operating Room where she was placed in dorsal lithotomy position after given general anesthesia. The patient was prepped and draped in normal sterile fashion. A sponge stick was placed into the patient's vagina. Attention was turned to the patient's abdomen, where a small umbilical incision was made. The fascia was tented using Bernadette clamps and the fascia was entered sharply. Confirmation of intraabdominal placement of the 10 mm port was confirmed under direct visualization using a laparoscope. The patient's abdomen was then insufflated using CO2 gas with approximately 4 liters. A second port was placed left laterally, this was done under direct visualization with a 5 mm port. Survey of the patient's abdomen demonstrated normal liver and gallbladder. Survey of the patient's pelvic anatomy demonstrated normal appearing rt and lt ovary, absent tubes and uterus, lysis of omental adhesions from anterior abdominal wall using the ligasure. No endometrial implants could be noted, no evidence of any pelvic disease was seen, normal appearing pelvic cavity. All instruments were removed from the patient's abdomen. The patient's abdomen was deinsufflated of CO2 gas. The patient tolerated the procedure well. Sponge stick was removed from the patient's vagina. The patient's infraumbilical fascia was closed using #0 Vicryl on a GI needle. The patient's skin was closed laterally and infraumbilically using 4-0 Vicryl. The patient tolerated the procedure well. Sponge, lap and needle counts were correct x 2. The patient was taken to Recovery Room in stable condition. Anesthesia: ERIC Surgeon: Brent Roland Adapted Physical Education Teacher: Vanda Lozano Estimated blood loss (mL): 5 Pathology: none sent Condition: stable Disposition: floor Urinary Catheter Management Urinary Catheter Management Urethral: Cath placed during this visit: no
--- NOTE | 2024-08-02 15:42 | PC.NURSE ---
patient has pressure from stent but not pain. Patient urinated pink tinged blood.
== END 2024-08-02 16:06 | disposition home or self-care (01) ==
PROVIDERS: Urology; PCP Nurse Practitioner Family; Visit Provider Obstetrics & Gynecology
PROC: (CPT 840; principal; 2024-08-02 11:00)
PROC: (CPT 910; 2024-08-02 11:00)
DX: R10.2 Pelvic and perineal pain (principal); Z90.710 Acquired absence of both cervix and uterus; R10.32 Left lower quadrant pain; N73.6 Female pelvic peritoneal adhesions (postinfective); N13.5 Crossing vessel and stricture of ureter without hydronephrosis; Z87.442 Personal history of urinary calculi; E03.9 Hypothyroidism, unspecified; F41.9 Anxiety disorder, unspecified; Z90.49 Acquired absence of other specified parts of digestive tract; Z98.51 Tubal ligation status; N94.89 Other specified conditions associated with female genital organs and menstrual cycle
CPT/HCPCS: 49329; 52332; 52351; 36415; 74420; 82948; 85025; J1100; J1171; J1885; J2250; J2405; J2704; J3010; J3490; Q9966

== ENCOUNTER 2024-08-23 12:22 | Outpatient (OUT) | payer BC, SELFPAY ==
--- OUTSIDE RECORDS SUMMARY | 2013-01-18 10:25 | XMS_ITS | Continuity of Care Document ---
Author Organization [facility] Address [address] [place] [address] Phone Care Team Providers Care Insurance Checker Name Role Phone Joaoi DO, Sanya Unavailable [...] Diagnoses Date Provider Providers Copied on Encounter [facility], [address] [place] [address], [place], [place], [id number] , [place] tel:[phone] [facility] No Information 3 Visci DO Sanya. [address] [place], [place], [id number] , [place]. tel: [phone] OFFICE/OUTPA TIENT VISIT, EST [facility], [address] [place], [place], [id number] , [place] tel: [phone] [facility] lab results (chief complaint) Genital herpes, unspecified 3 Abdulaziz Prince. [address] [place], [address], [place]. tel: [phone] PREV VISIT, NEW, AGE 18-39 [facility], [address] [place], [place], [id number] , [place] tel: [phone] [facility] annual visit (chief complaint) Gynecological ExaminationCandidiasi s of vulva and vaginaVaginitisHerpes simplex with other specified complications 3 Abdulaziz Prince. [address] [place], [address], [place]. tel: [phone] Family History Family Member Type Diagnosis Age [...]
--- OUTSIDE RECORDS SUMMARY | 2024-08-14 13:20 | XMS_ITS | Encounter Summary ---
Author Organization [facility] Address [address] [place] [address] Care Team Providers Care Cell Operator Name Role Phone Aminta Piper MD Primary Care Provider [phone] Reason for Visit * Reason Comments Post-op Visit Encounter Details Date Type Department Care Team (Late st Contact Info) Description 08/14/2024 1:20 PM EDT Office Visit [facility] [address] [facility] [place] [address] Yesica Mcnair PA [address] [facility] [address] [place], [facility]11 Acute postoperative pain; Postoperative follow-up; Other insomnia Social History Tobacco Use Types Packs/Day Years Used Date Smoking Tobacco: Never Alcohol Use Standard Drinks/Week Comments Not Currently 0 (1 standard drink = 0.6 oz pure alcohol) occasional: drinks wine & beer Comments No Sex and Gender Information Value Date Recorded Sex Assigned at Female 09/27/2022 7:35 AM EDT Legal Sex Female 7:11 PM EDT Gender Identity Female 09/27/2022 7:35 AM EDT Sexual Orientation Not on file documented as of this encounter Last Filed Vital Signs Vital Sign Reading Time Taken Comments Blood Pressure 122/84 08/14/2024 1:38 PM EDT Pulse - - Temperature - - Respiratory Rate - - Oxygen Saturation - - Inhaled Oxygen Concentration - - Weight 97 kg (213 lb 12.8 oz) 08/14/2024 1:38 PM EDT Height - - Body Mass Index 30.68 06/21/2023 2:48 PM EDT documented in this encounter Progress Notes * MARGRET Canales - 08/14/2024 1:20 PM EDT Reason for Appointment: Patient ID: Tootie Alfaro is a 34 y.o. female who presents for No chief complaint on file. Patient presents today for 2 Week Post Op Follow Up appointment. MEDICATIONS Current Outpatient Medications Medication Instructions Black Cohosh 20 MG tablet 1 tablet, Daily dicyclomine (BENTYL) 10 mg, Oral, 3 times daily PRN Ergocalciferol (VITAMIN D2 PO) 1 tablet, Daily ibuprofen 800 mg, Oral, Every 8 hours PRN levothyroxine (SYNTHROID, LEVOXYL) 137 mcg, Daily before breakfast liothyronine (CYTOMEL) 5 mcg, Oral, Daily metFORMIN XR (GLUCOPHAGE-XR) 500 mg, Oral, Daily with evening meal, Do not crush, chew, or split. ALLERGIES Allergies Allergen Reactions Vrrpztq-Dfywmz-Vnrcp Pertussis Swelling Tetanus-Diphtheria Toxoids Td Other Azithromycin Rash Clindamycin Rash PROBLEMS Active Ambulatory Problems Diagnosis Date Noted Acute postoperative pain 08/14/2024 Postoperative follow-up 08/14/2024 Resolved Ambulatory Problems Diagnosis Date Noted No Resolved Ambulatory Problems Past Medical History: Diagnosis Date Allergic contact dermatitis due to plant Anxiety Essential hypertension (CMS/HCC) Fatigue Hypothyroidism (CMS/HCC) Low iron Mood changes Non-smoker Obesity with body mass index of 30.0-39.9 HISTORY PAST MEDICAL HISTORY SOCIAL HISTORY Past Medical History: Diagnosis Date Allergic contact dermatitis due to plant Anxiety Essential hypertension (CMS/HCC) Fatigue Hypothyroidism (CMS/HCC) Low iron Mood changes Non-smoker Obesity with body mass index of 30.0-39.9 Social History Tobacco Use Smoking status: Never Smokeless tobacco: Not on file Substance Use Topics Alcohol use: Not Currently Comment: occasional: drinks wine & beer Drug use: Never FAMILY HISTORY Family History Problem Relation Name Age of Onset Hypertension Mother Hypertension Father Hyperlipidemia Father Cervical cancer Maternal Grandmother Thyroid cancer Maternal Grandmother Thyroid disease Maternal Grandmother Throat cancer Maternal Grandmother Hypertension Maternal Grandmother Hyperlipidemia Maternal Grandmother Cancer Maternal Grandmother Hypertension Maternal Grandfather Thyroid cancer Paternal Grandmother Thyroid disease Paternal Grandmother Hypertension Paternal Grandmother Cancer Paternal Grandmother Leukemia Paternal Grandfather Cancer Paternal Grandfather SURGICAL HISTORY Past Surgical History: Procedure Laterality Date APPENDECTOMY 2008 CHOLECYSTECTOMY 2013 CYST REMOVAL 2008 ENDOMETRIAL ABLATION 06/30/2018 HYSTERECTOMY 12/28/2019 LAPAROSCOPY DIAGNOSTIC / BIOPSY / ASPIRATION / LYSIS 06/16/2022 Diagnostic Lap LAPAROSCOPY DIAGNOSTIC / BIOPSY / ASPIRATION / LYSIS N/A 08/02/2024 dx lap, lysis of omental adhesions, Cystoureteroscopy, rt ureteroscopy, left retrograde, left ureteroscopy, left stent per dr lucas PAP SMEAR 12/01/2020 negative, HPV negative SALPINGECTOMY Bilateral 12/28/2019 TUBAL LIGATION Bilateral 2012 REVIEW OF SYSTEMS Review of Systems: Review of Systems Constitutional: Negative. HENT: Negative. Eyes: Negative. Respiratory: Negative. Cardiovascular: Negative. Gastrointestinal: Negative. Genitourinary: Negative. Musculoskeletal: Negative. Skin: Negative. Neurological: Negative. All other systems reviewed and are negative. Hematological: Negative. Endocrine: Negative. Allergic/Immunologic: Negative. OBJECTIVE Objective: OBGyn Exam Vitals: Estimated body mass index is 30.71 kg/m?? as calculated from the following: Height as of 06/21/23: 5' 10 . Weight as of 07/23/24: 214 lb. BP: No LMP recorded. Patient has had a hysterectomy. ASSESSMENT & PLAN ICD-10-CM 1. Acute postoperative pain G89.18 2. Postoperative follow-up Z09 Patient presents to office today for 2 week post operative appointment. Patient had Diagnostic Laparoscopy, Lysis of Adhesions, cysto/ureteroscopy, Rt ureteroscopy, Lt retrograde, Lt ureteroscopy, Ltstent per Dr. Lucas. Patient scheduled to have stent removed on 09/06/24. Pain is tolerable but having some trouble with sleep, we will send ambien to help Documented by Laney Chow LPN on behalf of: MARGRET Canales documented in this encounter Plan of Treatment Upcoming Encounters Date Type Department Care Team (Late st Contact Info) Description 10/09/2024 1:00 PM EDT Office Visit [facility] [address] [facility] [place] [address] Brent Roland, DO [address] [place] [address] documented as of this encounter Visit Diagnoses Diagnosis Acute postoperative pain Other acute postoperative pain Postoperative follow-up Follow-up examination, following unspecified surgery Other insomnia documented in this encounter Care Teams Cell Operator Relationship Specialty Start Date End Date Aminta Piper MD [address] [place] [address] PCP - General Family Medicine 09/27/22 documented as of this encounter
--- OUTSIDE RECORDS SUMMARY | 2024-08-23 12:24 | XMS_ITS | Encounter Summary ---
Author Organization [facility] Address [address] [facility] [place] [address] Care Team Providers Care Licensed Architect Name Role Phone Aminta Piper MD Primary Care Provider [phone] Encounter Details Date Type Department Care Team (Late Contact Info) Description 08/14/2024 Bamboo flowsheet [facility] OB [address] [facility] [place] [address] Yesica Mcnair PA [address] [facility] [address] [place], [place] [address] Social History Tobacco Use Types Packs/Day Years [...] on file documented as of this encounter Plan of Treatment Upcoming Encounters Date Type Department Care Team (Late st Contact Info) Description 10/09/2024 1:00 PM EDT Office Visit [facility] OB [address] [facility] [place] [address] Brent Roland DO [address] [facility] [address] [place], [facility]11 documented as of this encounter Visit Diagnoses Not on filedocumented in this encounter Care Teams Licensed Architect Relationship Specialty Start Date End Date Aminta Piper MD [address] [place] [address] PCP - General Family Medicine 09/27/22 documented as of this encounter
--- OUTSIDE RECORDS SUMMARY | 2024-08-23 12:24 | XMS_ITS | Encounter Summary ---
Author Organization [facility] Address [address] [facility] [place] [address] Care Team Providers Care Quality Associate Name Role Phone Aminta Piper MD Primary Care Provider [phone] Reason for Visit * Reason Comments Med Refill Encounter Details Date Type Department Care Team (Late Contact Info) Description 08/05/2024 Refill [facility] OB [address] [facility] [place] [address] Brent Roland DO [address] [place] [address] [place] [address] Social History Tobacco Use Types Packs/Day Years [...] 10/09/2024 1:00 PM EDT Office Visit [facility] [address] [place] [address] Brent Roland DO [facility] [place] [address] documented as of this encounter Visit Diagnoses Not on filedocumented in this encounter Care Teams Quality Associate Relationship Specialty Start Date End Date Aminta Piper MD [address] [place] [address] PCP - General Family Medicine 09/27/22 documented as of this encounter
--- OUTSIDE RECORDS SUMMARY | 2024-08-23 12:24 | XMS_ITS | Encounter Summary ---
Author Organization [facility] Address [address] [place] [address] Care Team Providers Care Ultrasound Tester Name Role Phone Aminta Piper MD Primary Care Provider [phone] Reason for Visit * Reason Comments Med Refill Encounter Details Date Type Department Care Team (Late st Contact Info) Description 02/23/2023 Refill [facility] OB [address] [facility] [place] [phone] Brent Roland, DO [address] [facility] [address] [place], [place] [address] Vaginal yeast infection Social History Tobacco Use Types Packs/Day Years Used Date Smoking Tobacco: Never Alcohol Use Standard Drinks/Week Comments Not Currently 0 (1 standard drink = 0.6 oz pure alcohol) occasional: drinks wine & beer Comments Unknown Sex and Gender Information Value Date Recorded Sex Assigned at Female 09/27/2022 7:35 AM EDT Legal Sex Female 7:11 PM EDT Gender Identity Female 09/27/2022 7:35 AM EDT Sexual Orientation Not on file COVID-19 Exposure Response Date Recorded In the last 10 days, have yo u been in contact with someone who was confirmed or suspected to have Coronavirus/COVID-19? No / Unsure 02/09/2023 8:55 AM EST documented as of this encounter Miscellaneous Notes * Telephone Encounter - Laney Chow LPN - 02/23/2023 2:25 PM EST Approving, but needs appt for additional refills. documented in this encounter Plan of Treatment Upcoming Encounters Date Type Department Care Team (Late st Contact Info) Description 10/09/2024 1:00 PM EDT Office Visit [facility] [address] [facility] [place] [address] Brent Roland DO [address] [place] [address] [address] [place], [place] [address] documented as of this encounter Visit Diagnoses Diagnosis Vaginal yeast infection Candidiasis of vulva and vagina documented in this encounter Care Teams Ultrasound Tester Relationship Specialty Start Date End Date Aminta Piper MD [address] [facility] [place] [address] PCP - General Family Medicine 09/27/22 documented as of this encounter
--- OUTSIDE RECORDS SUMMARY | 2024-08-23 12:24 | XMS_ITS | Encounter Summary ---
Author Organization [facility] Address [address] [facility] [place] [address] Care Team Providers Care Sticker Hand Name Role Phone Aminta Piper MD Primary Care Provider [phone] Encounter Details Date Type Department Care Team (Late Contact Info) Description 07/27/2024 Abstract [facility] OB [address] [facility] [address] Kenyatta Salazar MA Social History Tobacco Use Types Packs/Day Years [...] 10/09/2024 1:00 PM EDT Office Visit [facility] OB [address] [facility] [place] [address] Brent Roland DO [address] [place], [place] [address] documented as of this encounter Visit Diagnoses Not on filedocumented in this encounter Care Teams Sticker Hand Relationship Specialty Start Date End Date Aminta Piper MD [address] [facility] [place] [address] PCP - General Family Medicine 09/27/22 documented as of this encounter
--- OUTSIDE RECORDS SUMMARY | 2024-08-23 12:24 | XMS_ITS | Encounter Summary ---
Author Organization [facility] Address [address] [facility] [address] Care Team Providers Care Licensed Psychiatric Technician Name Role Phone Aminta Piper MD Primary Care Provider [phone] Encounter Details Date Type Department Care Team (Late Contact Info) Description 08/02/2024 Abstract [facility] OB [address] [place] [address] Brent Roland DO [facility] [address]onda [place], [place] [address] Social History Tobacco Use Types Packs/Day Years [...] Encounters Date Type Department Care Team (Late Contact Info) Description 10/09/2024 1:00 PM EDT Office Visit [facility] [address] [place] [address] Brent Roland DO [address] [place], [place] [id number] documented as of this encounter Visit Diagnoses Not on filedocumented in this encounter Care Teams Licensed Psychiatric Technician Relationship Specialty Start Date End Date Aminta Piper MD [address] [place] [address] PCP - General Family Medicine 09/27/22 documented as of this encounter
--- OUTSIDE RECORDS SUMMARY | 2024-08-23 12:24 | XMS_ITS | Encounter Summary ---
Author Organization [facility] Address [address] [facility] [address] Care Team Providers Care Photo Machine Operator Name Role Phone Aminta Piper MD Primary Care Provider [phone] Encounter Details Date Type Department Care Team (Late st Contact Info) Description 03/03/2023 Abstract [facility] OB [address] [facility] [place] [address] Tabby Evans LPN [address] [place] [address] Social History Tobacco Use Types Packs/Day Years [...] AM EST documented as of this encounter Plan of Treatment Upcoming Encounters Date Type Department Care Team (Late st Contact Info) Description 10/09/2024 1:00 PM EDT Office Visit [facility] OB [address] [facility] [address] Brent Roland, DO [address] [facility] [address] [place], [facility]11 documented as of this encounter Visit Diagnoses Not on filedocumented in this encounter Care Teams Photo Machine Operator Relationship Specialty Start Date End Date Aminta Piper MD [address] [place] [address] PCP - General Family Medicine 09/27/22 documented as of this encounter
--- OUTSIDE RECORDS SUMMARY | 2024-08-23 12:24 | XMS_ITS | Encounter Summary ---
Author Organization [facility] Address [address] [facility] [place] [address] Care Team Providers Care Hand Flesher Name Role Phone Aminta Piper MD Primary Care Provider [phone] Encounter Details Date Type Department Care Team (Latest Contact Info) Description 08/14/2024 Travel Social History Tobacco Use Types Packs/Day Years [...] EDT Office Visit [facility] OB [address] [place] [address] Brent Roland, DO [address] [facility] [place] [address] documented as of this encounter Visit Diagnoses Not on filedocumented in this encounter Care Teams Hand Flesher Relationship Specialty Start Date End Date Aminta Piper MD [address] [place] [address] PCP - General Family Medicine 09/27/22 documented as of this encounter
--- OUTSIDE RECORDS SUMMARY | 2024-08-23 12:25 | XMS_ITS | Encounter Summary ---
Author Organization [facility] Address [address] [facility] [place] [address] Care Team Providers Care Braille And Talking Books Clerk Name Role Phone Aminta Piper MD Primary Care Provider [phone] Encounter Details Date Type Department Care Team (Late st Contact Info) Description 09/24/2022 Abstract [facility] [place] [facility] OB [address] [facility] [place] [address] Yesica Mcnair PA [address] [facility] [address] [place], [facility]11 Social History Tobacco Use Types Packs/Day Years Used Date Smoking Tobacco: Never Tobacco Cessation:Counseling Given: Not Answered Alcohol Use Standard Drinks/Week Comments Not Currently [...] suspected to have Coronavirus/COVID-19? No / Unsure 09/27/2022 7:40 AM EDT documented as of this encounter Plan of Treatment Upcoming Encounters Date Type Department Care Team (Late st Contact Info) Description 10/09/2024 1:00 PM EDT Office Visit [facility] [place] [facility] OB [address] [place], [place] [address] [place] [address] Brent Roland, DO [address] [place], [facility]11 documented as of this encounter Visit Diagnoses Not on filedocumented in this encounter Care Teams Braille And Talking Books Clerk Relationship Specialty Start Date End Date Aminta Piper MD [address] [place] [address] PCP - General Family Medicine 09/27/22 documented as of this encounter
--- OUTSIDE RECORDS SUMMARY | 2024-08-23 12:25 | XMS_ITS | Clinical Summary ---
Author Organization [facility] Address [address] [place] [address] Care Team Providers Care Rescue Instructor Name Role Phone Aminta Piper MD Primary Care Provider [phone] Allergies Active Allergy Reactions Criticality Noted Date Comments Azithromycin Rash Low 07/12/2024 Clindamycin Rash Low 09/23/2022 Eazfffz-Umxlfz-Rojpg Pertussis Swelling 09/23 Tetanus-Diphtheria Toxoids Td Other 2024 Medications levothyroxine (Synthroid, Levoxyl) 137 MCG tablet Take 137 mcg by mouth in the morning. Take before meals. 3 Active dicyclomine (Bentyl) 10 MG capsuleIndicatio ns:Abdominal cramping Take 1 capsule (10 mg) by mouth 3 (three) times a day as needed (cramping) 30 capsule 1 5 Active liothyronine (Cytomel) 5 MCG tabletIndication s:Hypothyroidism , unspecified TAKE 1 TABLET BY MOUTH DAILY. 90 tablet 1 5 Active Black Cohosh 20 MG tablet Take 1 tablet by mouth Daily Active Ergocalciferol (VITAMIN D2 PO) Take 1 tablet by mouth Daily Active ibuprofen 800 MG tabletIndication s:Pelvic pain Take 1 tablet (800 mg) by mouth every 8 (eight) hours if needed for mild pain 60 tablet 1 5 10/09/19 25 Active metFORMIN XR (Glucophage-XR) 500 MG 24 hr tabletIndication s:Insulin resistance Take 1 tablet (500 mg) by mouth in the evening. Take with meals Do not crush, chew, or split. 30 tablet 11 5 07/12/19 26 Active zolpidem (Ambien) 5 MG tabletIndication s:Other insomnia Take 1 tablet (5 mg) by mouth as needed at bedtime for sleep for up to 20 doses 20 tablet Active mirabegron ER (Myrbetriq) 50 MG 24 hr tablet Take 50 mg by mouth at bedtime Do not crush, chew, or split. Active tamsulosin (Flomax) 0.4 MG 24 hr capsule Take 0.4 mg by mouth Daily Active methenamine hippurate (Hiprex) 1 g tablet Take 1 g by mouth in the morning and 1 g before bedtime. Active fluconazole (Diflucan) 150 MG tabletIndication s:Yeast infection Take 1 tablet (150 mg) by mouth every 3rd (third) day for 2 doses 2 tablet 08/07/19 Active Problems Problem Noted Date Diagnosed Date Acute postoperative pain 08/14/2024 Postoperative follow-up 08/14/2024 Encounters Date Type Department Care Team Description 08/14/2024 1:20 PM EDT Office Visit [facility] [address] [place] [address] Yesica Mcnair PA Acute postoperative pain; Postoperative follow-up; Other insomnia 08/14/2024 Bamboo flowsheet [facility] [address] [place] [address] Yesica Mcnair PA 08/14/2024 Travel 08/05/2024 [address]ill [facility] [address] [place] [address] Lion Roland, DO 08/02/2024 Abstract [facility] [address] [place] [address] Lion Roland, DO 08/02/20[address] [facility] [address] [place] [address] Laney Chow LPN 08/02/2024 Clinisync Result Encounter [facility] External Department Unsolicited Lion Roland, DO 07/30/20[address] [facility] [address] [place] [address] Ashley Nicole LPN 07/27/2024 Abstract [facility] [address] [place] [address] Kenyatta Salazar MA 07/23/2024 9:00 AM EDT Consult [facility] [address] [place] [address] Lion Roland, Pre-op evaluation; Pelvic pain in female; Pain of ovary; H/O: hysterectomy 07/23/2024 Clinisync Result Encounter [facility] External Department Unsolicited Lion Roland, DO 07/23/2024 Clinisync Result Encounter [facility] External Department Unsolicited Lion Roland, DO 07/23/2024 Bamboo flowsheet [facility] [address] [place] [address] Lion Roland, DO 07/23/2024 Travel 07/12/[address] [facility] [address] [place] [address] Hedy Carter MA 07/10/2024 10:00 AM EDT Office Visit [facility] [address] [place] [address] Lion Roland, Pelvic pain; Insulin resistance 07/10/2024 External Result Encounter [facility] External Department Unsolicited Lion Roland, DO 07/10/2024 Bamboo flowsheet [facility] [address] [place] [address] Lion Roland, DO 07/09/2024 Travel 07/04/2024 Refill [facility] [address] [place] [phone] Aniya Waldrop MD Hypothyroidism, unspecified 07/03/20[address] [facility] [address] [place] [address] Ashley Nicole, SALOME 07/03/2024 Clinisync Result Encounter [facility] External Department Unsolicited Lion Roland DO 07/02/2024 Telephone [facility] [address] [place] [address] Corey Ashley, LPN from Last 3 Months Family History Medical History Relation Name Comments Hyperlipidemia Father Hypertension Father Hypertension Maternal Grandfather Cancer Maternal Grandmother Cervical cancer Maternal Grandmother Hyperlipidemia Maternal Grandmother Hypertension Maternal Grandmother Throat cancer Maternal Grandmother Thyroid cancer Maternal Grandmother Thyroid disease Maternal Grandmother Hypertension Mother Cancer Paternal Grandfather Leukemia Paternal Grandfather Cancer Paternal Grandmother Hypertension Paternal Grandmother Thyroid cancer Paternal Grandmother Thyroid disease Paternal Grandmother Relation Name Status Comments Brother 1 Alive Brother 2 Alive Daughter Alive Father Alive Maternal Grandfather Alive Maternal Grandmother Alive Mother Alive Paternal Grandfather Paternal Grandmother Alive Son Alive Social History Tobacco Use Types Packs/Day Years [...] AM EDT Sexual Orientation Not on file Last Filed Vital Signs Vital Sign Reading Time Taken Comments Blood Pressure 122/84 08/14/2024 1:38 PM EDT Pulse 79 06/21/2023 2:48 PM EDT Temperature - - Respiratory Rate 18 06/21/2023 2:48 PM EDT Oxygen Saturation 96% 06/21/2023 2:48 PM EDT Inhaled Oxygen Concentration - - Weight 97 kg (213 lb 12.8 oz) 08/14/2024 1:38 PM EDT Height 177.8 cm (5' 10 ) 06/21/2023 2:48 PM EDT Body Mass Index 30.68 06/21/2023 2:48 PM EDT Plan of Treatment Upcoming Encounters Date Type Department Care Team (Late st Contact Info) Description 10/09/2024 1:00 PM EDT Office Visit [facility] [address] [place] [phone] Lion Roland, DO [address] [facility] [place] [address] Health Maintenance Due Date Last Done Comments HPV/Cotest 06/10/2019 Influenza Vaccine (Season Ended) 2024 Cervical Cancer Screening 12/28/2025 Pap Smear 12/28/2025 12/28/2022 Procedures Procedure Name Priority Date/Time Associated Diagnosis Comments ALL CBC WITH AUTO DIFF Routine 08/02/2024 11:09 AM EDT [facility] CMP (CMP) (FOR REMOTE [facility] USE) Routine 07/23/2024 11:34 AM EDT ALL CBC WITH AUTO DIFF Routine 07/23/2024 11:34 AM EDT ECG 12-LEAD 07/23/2024 11:29 AM EDT RECURRENT VAGINITIS (HTRX) Routine 07/10/2024 11:43 AM EDT POCT URINALYSIS DIPSTICK Routine 07/10/2024 10:10 AM EDT Pelvic pain US PELVIS W/ TRANSVAGINAL 07/03/2024 9:30 AM EDT PAP SMEAR Routine 12/28/2022 12:00 AM EDT from Last 3 Months or Most Recently Relevant to Health Maintenance Results * (ABNORMAL) ALL CBC WITH AUTO DIFF (08/02/2024 11:09 AM EDT) Only the most recent of2 resultswithin the time period is included. [facility] WBC 9.0 4.0 - 11.0 10 3/uL TBH TBH RBC 5.28 4.20 - 5.40 10 6/uL TBH TBH HGB 14.1 12.0 - 16.0 g/dL TBH TBH HCT 43.7 36.0 - 48.0 % TBH TBH MCV 82.8 81.0 - 99.0 fL TBH TBH MCH 26.7 26.7 - 34.0 pg TBH TBH MCHC 32.3 29.9 - 35.2 g/dL TBH TBH RDW 13.1 11.0 - 15.0 % TBH TBH PLT 369 150 - 450 10 3/uL TBH TBH MPV 8.9(L) 9.5 - 13.5 fL TBH NEUTROPHILS PERCENT AUTO 58.8 43.0 - 75.0 % TBH LYMPHOCYTES PERCENT AUTO 33.4 20.5 - 60.0 % TBH MONOCYTES PERCENT AUTO 5.4 1.7 - 12.0 % TBH TBH EO % 1.6 0.9 - 7.0 % TBH BASOPHILS PERCENT AUTO 0.6 0.2 - 2.0 % TBH IMMATURE GRANULOCYTES PCT AUTO 0.2 0.0 - 0.5 % TBH NEUTROPHILS ABSOLUTE AUTO 5.3 1.4 - 6.5 10 3/uL TBH LYMPHOCYTES ABSOLUTE AUTO 3.0 1.2 - 3.8 10 3/uL TBH MONOCYTES ABSOLUTE AUTO 0.5 0.3 - 0.8 10 3/uL TBH TBH EO # 0.1 0.0 - 0.7 10 3/uL TBH BASOPHILS ABSOLUTE AUTO 0.1 0.0 - 0.1 10 3/uL TBH IMMATURE GRANULOCYTES ABS AUTO 0.02 0.00 - 0.03 10 3/uL TBH 08/02/2024 11:0 9 AM EDT 08/02/2024 11:10 AM EDT Narrative CLINISYNC - 08/02/2024 11:13 AM EDT us Lion Asuncion DO CLINISYNC Final Result CLINISYNC TB * [facility] CMP (CMP) (FOR REMOTE [facility] USE) (07/23/2024 11:34 AM EDT) SODIUM 138 136 - 145 mmol/L TBH POTASSIUM 4.3 3.5 - 5.1 mmol/L TBH CHLORIDE 105 98 - 107 mmol/L TBH CARBON DIOXIDE 26.9 21.0 - 32.0 mmol/L TBH ANION GAP 10.4 TBH GLUCOSE 88 74 - 106 mg/dL TBH BLOOD UREA NITROGEN 14.0 7.0 - 18.0 mg/dL TBH CREATININE 0.83 0.55 - 1.02 mg/dL TBH TBH EGFR-AF EGYPTIAN >60 >=60 mL/min/1. 73m 2 TBH TBH EGFR-NON AF EGYPTIAN >60 >=60 mL/min/1. 73m 2 TBH BUN CREATININE RATIO 16.9 TBH CALCIUM 8.6 8.5 - 10.1 mg/dL TBH BILIRUBIN TOTAL 0.3 0.2 - 1.0 mg/dL TBH ASPARTATE AMINO TRANSFERASE 15 15 - 37 U/L TBH ALANINE AMINOTRANSFERASE 37 14 - 59 U/L TBH ALKALINE PHOSPHATASE 70 46 - 116 U/L TBH TOTAL PROTEIN 7.1 6.4 - 8.2 g/dL TBH ALBUMIN LEVEL 3.5 3.4 - 5.0 g/dL TBH GLOBULIN 3.6 g/dL TBH ALBUMIN GLOBULIN RATIO 1.0 TBH 07/23/2024 11:3 4 AM EDT 07/23/2024 11:36 AM EDT Narrative CLINISYNC - 07/23/2024 12:23 PM EDT us Lion Roland DO CLINISYNC Final Result [facility] * ECG 12-LEAD (07/23/2024 11:29 AM EDT) Anatomical Region Laterality Modality Other 07/23/2024 11:2 9 AM EDT Narrative 07/23/2024 11:54 [place] [address] Electrocardiograph Report Signed Patient: KARLENE ALFARO MR#: [id number] : 1990 Acct:[id number] Age/Sex: 34 / F ADM Date: 07/23/24 Loc: PST Attending Dr: Lion Roland D.O. Ordering Physician: Lion Roland D.O. Date of Service: 07/23/24 Procedure(s): ECG 12 lead Accession Number(s): [id number] cc: [facility] Test Date: 2024-07-23 Pat Name: KARLENE ALFARO Department: Room: - Gender: Female Senior Bi Architect: : 1990 Requested By: LION ROLAND Order Number: [id number] Reading MD: CHUY SHABAZZ M.D. Measurements Intervals [place] Rate: 71 P: 33 RI: 148 QRS: 42 QRSD: 82 T: 30 QT: 389 QTc: 424 Interpretive Statements SINUS RHYTHM POSSIBLE RIGHT VENTRICULAR CONDUCTION DELAY [RSR (QR) IN V1/V2] Borderline ECG Compared to ECG 05/02/2023 11:46:38 Sinus tachycardia no longer present Right-axis deviation no longer present Electronically Signed On 07-23-2024 11:53:48 EDT by CHUY SHABAZZ M.D. Dictated By: CHUY SHABAZZ Signed By: 07/23/24 1154 DD/ 1129 TD/TT: Warehouse Processor: Procedure Note Radiology, Radiologist, MD - 07/23/2024 [place] [address] Electrocardiograph Report Signed Patient: KARLENE ALFARO KMR#: [id number] : 1990Acct:[id number] Age/Sex: 34 / FADM Date: 07/23/24 Loc: [facility] Attending Dr: Lion Roland D.O. Ordering Physician: Lion Roland D.O. Date of Service: 07/23/24 Procedure(s): ECG 12 lead Accession Number(s): [id number] cc: [facility] Test Date: 2024-07-23 Pat Name: KARLENE ALFARO Department: Room: - Gender: Female Senior Bi Architect: : 1990 Requested By: LION ROLAND Order Number: [id number] Reading MD: CHUY SHABAZZ M.D. Measurements Intervals [place] Rate: 71 P: 33 RI: 148 QRS: 42 QRSD: 82 T: 30 QT: 389 QTc: 424 Interpretive Statements SINUS RHYTHM POSSIBLE RIGHT VENTRICULAR CONDUCTION DELAY [RSR (QR) IN V1/V2] Borderline ECG Compared to ECG 05/02/2023 11:46:38 Sinus tachycardia no longer present Right-axis deviation no longer present Electronically Signed On 07-23-2024 11:53:48 EDT by CHUY SHABAZZ M.D. Dictated By: CHUY SHABAZZ Signed By:07/23/24 1154 DD/ 1129 TD/TT: Warehouse Processor: Lion Asuncion DO CLINISYNC IMAGING Final Result * (ABNORMAL) RECURRENT VAGINITIS (HTRX) (07/10/2024 11:43 AM EDT) [facility] ATOPOBIUM VAGINAE 30.718(A) 19.961 - 24.689 ppm 07/11/2024 6:09 AM EDT [facility] ATOPOBIUM VAGINAE Detected(A) 19.961 - 24.689 ppm 07/11/2024 6:09 AM EDT [facility] BVAB 2,3 (BACTERIAL VAGINOSIS ASSOCIATED BACTERIA 2, 3); MOBILUNCUS SPP 0.000 19.961 - 24.689 ppm 07/11/2024 6:09 AM EDT [facility] BVAB 2,3 (BACTERIAL VAGINOSIS ASSOCIATED BACTERIA 2, 3); MOBILUNCUS SPP Not Detected 19.961 - 24.689 ppm 07/11/2024 6:09 AM EDT [facility] DARIA ALBICANS, PARAPSILOSIS, TROPICALIS 0.000 19.961 - 30.770 ppm 07/11/2024 6:09 AM EDT [facility] DARIA ALBICANS, PARAPSILOSIS, TROPICALIS Not Detected 19.961 - 30.770 ppm 07/11/2024 6:09 AM EDT [facility] DARIA GLABRATA 0.000 23.000 - 32.138 ppm 07/11/2024 6:09 AM EDT [facility] DARIA GLABRATA Not Detected 23.000 - 32.138 ppm 07/11/2024 6:09 AM EDT [facility] DARIA KRUSEI 0.000 23.000 - 32.271 ppm 07/11/2024 6:09 AM EDT [facility] DARIA KRUSEI Not Detected 23.000 - 32.271 ppm 07/11/2024 6:09 AM EDT [facility] CHLAMYDIA TRACHOMATIS 0.000 23.000 - 31.467 ppm 07/11/2024 6:09 AM EDT [facility] CHLAMYDIA TRACHOMATIS Not Detected 23.000 - 31.467 ppm 07/11/2024 6:09 AM EDT [facility] GARDNERELLA VAGINALIS 0.000 19.961 - 24.689 ppm 07/11/2024 6:09 AM EDT [facility] GARDNERELLA VAGINALIS Not Detected 19.961 - 24.689 ppm 07/11/2024 6:09 AM EDT [facility] MEGASPHAERA (TYPES 1, 2) 0.000 19.961 - 24.689 ppm 07/11/2024 6:09 AM EDT [facility] MEGASPHAERA (TYPES 1, 2) Not Detected 19.961 - 24.689 ppm 07/11/2024 6:09 AM EDT [facility] NEISSERIA GONORRHOEAE 0.000 23.000 - 32.117 ppm 07/11/2024 6:09 AM EDT [facility] NEISSERIA GONORRHOEAE Not Detected 23.000 - 32.117 ppm 07/11/2024 6:09 AM EDT [facility] TRICHOMONAS VAGINALIS 0.000 23.000 - 32.119 ppm 07/11/2024 6:09 AM EDT [facility] TRICHOMONAS VAGINALIS Not Detected 23.000 - 32.119 ppm 07/11/2024 6:09 AM EDT [facility] MYCOPLASMA GENITALIUM 0.000 19.961 - 24.689 ppm 07/11/2024 6:09 AM EDT [facility] MYCOPLASMA GENITALIUM Not Detected 19.961 - 24.689 ppm 07/11/2024 6:09 AM EDT [facility] Tissue 07/10/2024 11:4 3 AM EDT 07/11/2024 2:08 AM EDT Lion Roland DO LAB BLOOD ORDERABLES Final Resul t [facility] [place] [address] * POCT urinalysis dipstick manually resulted (07/10/2024 10:10 AM EDT) Color, UA Yellow Clarity, UA Clear Glucose, UA Negative Negative - 2000(110) ++++ mg/dL Bilirubin, UA Negative Negative - 4(70) +++ mg/dL Ketones, UA Negative Negative - 160(16) ++++ mg/dL Spec Grav, UA 1.025 1 - 1.03 Blood, UA Negative Negative - 50 Arnulfo/mcL pH, UA 7.0 5 - 9 Protein, UA Negative Negative - 2000(20) ++++ mg/dL Urobilinogen, UA 0.2 0.2 - 12 mg/dL Leukocytes, UA Negative Negative - 500+++ Corrina/mcL Nitrite, UA Negative Negative - Positive Urine 07/10/2024 10:1 0 AM EDT Lion Roland DO POINT OF CARE TEST ENTER/EDIT OR DERABLES Final Result * US PELVIS W/ TRANSVAGINAL (07/03/2024 9:30 AM EDT) Anatomical Region Laterality Modality Other 07/03/2024 9:30 AM EDT Narrative 07/03/2024 9:33 AM EDT [address] [address] Ultrasound Report Signed Patient: KARLENE ALFARO MR#: [id number] : 1990 Acct:[id number] Age/Sex: 34 / F ADM Date: 07/03/24 Loc: US Attending Dr: Lion Roland D.O. Ordering Physician: Lion Roland D.O. Date of Service: 07/03/24 Procedure(s): US pelvis w/ transvaginal Accession Number(s): [id number] cc: Aminta Piper M.D.; Lion Roland D.O. [facility] [place] [address] Patient Name: KARLENE ALFARO MRN: [facility]:[id number] date: 1990 Sex: F Assigned Patient Location: US Current Patient Location: US Accession/Order Number: [id number] Exam Date: 07/03/2024 09:28 Report Date: 07/03/2024 09:30 At the request of: LION ROLAND DO Procedure: US pelvis w/ transvaginal TRANSABDOMINAL AND TRANSVAGINAL PELVIC ULTRASOUND HISTORY: Left lower quadrant pain for 4 days. Hysterectomy FINDINGS: Hysterectomy The RIGHT ovary measures 3.8 x 2.9 x 2.5 cm with resistive index of 0.5 to LEFT ovary measures 3.3 x 2.9 x 2.3 cm with resistive index of 0.54. Anechoic left ovarian cyst measures up to 2.6 cm. Bilateral ovarian blood flow identified. No free fluid identified. There is no adnexal mass identified. US/US pelvis w/ transvaginal IMPRESSION: Hysterectomy. 2.6 cm left ovarian cyst. Unremarkable right ovary. No adnexal mass or free fluid. Impression dictated by: Jovan Martin M.D.07/03/2024 9:30 AM Dictation Location: [place] [address] Electronically authenticated by: [id number] Y Date: 07/03/2024 09:30 Dictated By: Jovan Martin D.O. Signed By: 07/03/2433 DD/ 9 TD/TT: Warehouse Processor: Procedure Note Radiology, Radiologist, MD - 07/03/2024 [place] [address] Ultrasound Report Signed Patient: KARLENE ALFARO KMR#: [id number] : 1990Acct:[id number] Age/Sex: 34 / FADM Date: 07/03/24 Loc: US Attending Dr: Lion Roland D.O. Ordering Physician: Lion Roland D.O. Date of Service: 07/03/24 Procedure(s): US pelvis w/ transvaginal Accession Number(s): [id number] cc: Aminta Piper M.D.; Lion Roland D.O. [place] [address] Patient Name: KARLENE ALFARO MRN: [facility]:[id number] date: 1990 Sex: F Assigned Patient Location: US Current Patient Location: US Accession/Order Number: [id number] Exam Date: 07/03/2024 09:28 Report Date: 07/03/2024 09:30 At the request of: LION ROLAND DO Procedure: US pelvis w/ transvaginal TRANSABDOMINAL AND TRANSVAGINAL PELVIC ULTRASOUND HISTORY: Left lower quadrant pain for 4 days. Hysterectomy FINDINGS: Hysterectomy The RIGHT ovary measures 3.8 x 2.9 x 2.5 cm with resistiveindex of 0.5 to LEFT ovary measures 3.3 x 2.9 x 2.3 cm with resistive index of 0.54.Anechoic left ovarian cyst measures up to 2.6 cm. Bilateral ovarian blood flow identified. No free fluid identified. There is no adnexal mass identified. US/US pelvis w/ transvaginal IMPRESSION: Hysterectomy. 2.6 cm left ovarian cyst. Unremarkable right ovary. No adnexal mass or free fluid. Impression dictated by: Jovan Martin M.D.07/03/2024 9:30 AM Dictation Location: [place] [address] Electronically authenticated by: [id number] Y Date: 9:30 Dictated By: Jovan Martin D.O. Signed By:07/03/2433 DD/ 9 TD/TT: Warehouse Processor: Lion Roland DO [facility] IMAGING Final Result * Pap Smear (12/28/2022 12:00 AM EDT) Swab Cervical swab / Unknown Lion Roland DO LAB CYTOLOGY ORDERABLES Final Re sult EXTERNAL LAB from Last 3 Months or Most Recently Relevant to Health Maintenance Insurance BS Care Teams Rescue Instructor Relationship Specialty Start Date End Date Aminta Piper MD [address] [place] [address] PCP - General Family Medicine 09/27/22
--- NOTE | 2024-08-23 12:58 | PM.PRESUREVA ---
History of Present Illness History of Present Illness Chief complaint: Left Ureteral Sticture, Left Flank Pain, S/P Stent Narrative: Patient presents for presurgical testing. The patient reports a history of left flank pain. She had a diagnostic laparoscopy with lysis of omental adhesions here on August 02, 2024 as well as left ureteral stent placement. The patient states she continues to have left flank pain with intermittent hematuria. She denies fever, nausea, vomiting, or any other complaints. Review of Systems ROS Narrative REVIEW OF SYSTEMS: Negative except as stated in HPI, ten or more systems reviewed. Constitutional: No fever, chills, weakness ENT: No sore throat or epistaxis Cardiovascular: No edema, chest pain, palpitations, or activity intolerance Respiratory: No shortness of breath, cough, or wheezing Musculoskeletal: No joint pain or swelling Gastrointestinal: No abdominal pain, constipation, diarrhea, or vomiting Neurological: No numbness, tingling, weakness, or headache Psychiatric: No mood changes PFSH FOR[facility]LY [facility], 1928–1983 Medical History (Updated 08/23/24 @ 13:05 by Sanjuanita Kaur NP) Ureteral stricture, left ?N13.5 - Crossing vessel and stricture of ureter without hydronephrosis (ICD-10) Left flank pain ?R10.9 - Unspecified abdominal pain (ICD-10) History of blood transfusion ?Z92.89 - Personal history of other medical treatment (ICD-10) Migraine ?G43.909 - Migraine, unspecified, not intractable, without status migrainosus (ICD-10) Kidney stones ?N20.0 - Calculus of kidney (ICD-10) PCOS (polycystic ovarian syndrome) ?E28.2 - Polycystic ovarian syndrome (ICD-10) Postoperative nausea and vomiting ?R11.2 - Nausea with vomiting, unspecified (ICD-10) ?Z98.890 - Other specified postprocedural states (ICD-10) Low iron ?E61.1 - Iron deficiency (ICD-10) Hypothyroidism (acquired) ?E03.9 - Hypothyroidism, unspecified (ICD-10) Fatigue ?R53.83 - Other fatigue (ICD-10) Hypertension ?I10 - Essential (primary) hypertension (ICD-10) Anxiety ?F41.9 - Anxiety disorder, unspecified (ICD-10) Pain of ovary ?N94.89 - Other specified conditions associated with female genital organs and menstrual cycle (ICD-10) Pelvic pain ?R10.2 - Pelvic and perineal pain (ICD-10) Surgical History (Updated 08/23/24 @ 13:05 by Sanjuanita Kaur NP) S/P cystoscopy with ureteral stent placement ?Z96.0 - Presence of urogenital implants (ICD-10) H/O laparoscopy (08/02/24) ?Z98.890 - Other specified postprocedural states (ICD-10) History of bladder surgery ?Z98.890 - Other specified postprocedural states (ICD-10) History of bilateral salpingectomy ?Z90.79 - Acquired absence of other genital organ(s) (ICD-10) History of laparoscopy ?Z98.890 - Other specified postprocedural states (ICD-10) History of tubal ligation ?Z98.51 - Tubal ligation status (ICD-10) History of endometrial ablation ?Z98.890 - Other specified postprocedural states (ICD-10) History of ovarian cystectomy ?Z98.890 - Other specified postprocedural states (ICD-10) ?Z87.42 - Personal history of other diseases of the female genital tract (ICD-10) History of cholecystectomy ?Z90.49 - Acquired absence of other specified parts of digestive tract (ICD-10) History of appendectomy ?Z90.49 - Acquired absence of other specified parts of digestive tract (ICD-10) History of hysterectomy ?Z90.710 - Acquired absence of both cervix and uterus (ICD-10) Family History (Updated 07/23/24 @ 11:18 by Sanjuanita Kaur NP) Other Family history of cervical cancer Family history of hypertension Family history of leukemia Family history of myocardial infarction Family history of renal failure Family history of throat cancer Family history of thyroid cancer Social History (Updated 07/23/24 @ 11:15 by Sanjuanita Kaur NP) Within the past year, how often did you have a drink containing alcohol: 2-4 times a month Smoking status: Never smoker Non-prescribed substance use: denies use 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 Highest level of school completed/degree received: high school graduate Meds Home Medications and Allergies Home Medications ?Medication ?Instructions ?Recorded ?Confirmed ?Type ibuprofen 800 mg tablet 800 mg PO Q8H PRN pain 07/23/24 08/23/24 History levothyroxine 137 mcg tablet 137 mcg PO DAILY 07/23/24 08/23/24 History liothyronine 5 mcg tablet 5 mcg PO DAILY 07/23/24 08/23/24 History metformin 500 mg tablet,extended 500 mg PO DAILY 07/23/24 08/23/24 History release 24 hr mirabegron 50 mg tablet,extended 50 mg PO DAILY #30 tabs 08/02/24 08/23/24 Rx release 24 hr (Myrbetriq) acetaminophen 500 mg capsule 1,000 mg PO QID PRN pain 08/23/24 08/23/24 History methenamine hippurate 1 gram tablet 1 g PO Q12H 08/23/24 08/23/24 History tamsulosin 0.4 mg capsule 0.4 mg PO DAILY 08/23/24 08/23/24 History Allergies Allergy/AdvReac Type Severity Reaction Status Date / Time pertussis vaccine,adsorbed Allergy Severe swelling Verified 08/23/24 12:37 azithromycin Allergy Hives Verified 08/23/24 12:37 clindamycin Allergy Rash Verified 08/23/24 12:37 tetanus and diphtheria Allergy swelling Verified 08/23/24 12:37 toxoids Exam Narrative Exam Narrative: Constitutional: Awake, alert, comfortable, well-appearing, nontoxic, interactive, vital signs as charted Head: Normocephalic, atraumatic Neck: Supple, normal appearance, normal range of motion, no meningeal signs, no lymphadenopathy Respiratory: No respiratory distress, breath sounds clear Cardiovascular: Regular rate and rhythm, strong and regular heart tones Abdomen: Nontender, normal bowel sounds, soft, no CVA tenderness Musculoskeletal: Normal gait, no swelling or edema Skin: No rashes or induration, no lesions, only visible skin inspected Neuro: No neurological deficits, normal sensation Psychiatric: Oriented ?3, normal affect Assessment and Plan Assessment and Plan (1) Left flank pain: (2) Ureteral stricture, left: (3) S/P cystoscopy with ureteral stent placement: Plan Cystoscopy, left retrograde, left ureteroscopy, possible left stent change or removal scheduled with Dr. Romero September 06, 2024.
[2024-08-23 13:02] LABS: Basophils Percent Auto 0.6 % (0.2-2.0); Eosinophils Absolute Auto 0.2 10^3/uL (0.0-0.7); Hematocrit 39.6 % (36.0-48.0); Hemoglobin 12.9 g/dL (12.0-16.0); Immature Granulocytes Abs Auto 0.01 10^3/uL (0.00-0.03); Immature Granulocytes Pct Auto 0.1 % (0.0-0.5); Lymphocytes Absolute Auto 2.4 10^3/uL (1.2-3.8); Lymphocytes Percent Auto 34.9 % (20.5-60.0); Mean Corpuscular HGB Conc 32.6 g/dL (29.9-35.2); Mean Corpuscular Hemoglobin 26.2 pg (26.7-34.0); Mean Corpuscular Volume 80.5 fL (81.0-99.0); Mean Platelet Volume 8.9 fL (9.5-13.5); Monocytes Absolute Auto 0.3 10^3/uL (0.3-0.8); Monocytes Percent Auto 4.9 % (1.7-12.0); Neutrophils Absolute Auto 3.8 10^3/uL (1.4-6.5); Neutrophils Percent Auto 56.5 % (43.0-75.0); Platelet Count 398 10^3/uL (150-450); Red Blood Count 4.92 10^6/uL (4.20-5.40); Red Cell Distribution Width 13.2 % (11.0-15.0); White Blood Count 6.7 10^3/uL (4.0-11.0)
[2024-08-23 13:08] LABS: Anion Gap 12.2; Carbon Dioxide 26.7 mmol/L (21.0-32.0); Chloride 104 mmol/L (98-107); Estimated GFR (African America >60 (>=60 mL/min/1.73m^2); Estimated GFR (Non-African Ame >60 (>=60 mL/min/1.73m^2); Glucose 94 mg/dL (74-106); Potassium 3.9 mmol/L (3.5-5.1); Sodium 139 mmol/L (136-145)
== END 2024-08-23 12:23 | disposition home or self-care (01) ==
LOC: PST 12:23
PROVIDERS: PCP Nurse Practitioner Family; Visit Provider Urology
DX: Z01.812 Encounter for preprocedural laboratory examination (principal); Z01.818 Encounter for other preprocedural examination; R10.32 Left lower quadrant pain; N13.5 Crossing vessel and stricture of ureter without hydronephrosis
CPT/HCPCS: 80048; 85025; G0463

== ENCOUNTER 2024-09-06 06:53 | Day surgery (SDC) | payer BC, SELFPAY ==
--- OUTSIDE RECORDS SUMMARY | 2013-01-18 10:25 | XMS_ITS | Continuity of Care Document ---
Author Organization [facility] Address [address] [place] [address] Phone Care Team Providers Care Paid Search Analyst Name Role Phone Joaoi DO, Sanya Unavailable [...] Diagnoses Date Provider Providers Copied on Encounter [facility], [address] [place] [address], [place], [place], [id number] , [place] tel:[phone] [facility] No Information 3 Visci DO Sanya. [address] [place], [place], [id number] , [place]. tel: [phone] OFFICE/OUTPA TIENT VISIT, EST [facility], [address] [place], [place], [id number] , [place] tel: [phone] [facility] lab results (chief complaint) Genital herpes, unspecified 3 Abdulaziz Prince. [address] [place], [address], [place]. tel: [phone] PREV VISIT, NEW, AGE 18-39 [facility], [address] [place], [place], [address] , [place] tel: [phone] [facility] annual visit (chief complaint) Gynecological ExaminationCandidiasi s of vulva and vaginaVaginitisHerpes simplex with other specified complications 3 Abdulaziz Prince. [address] [place], [address], [place]. tel: [phone] Family History Family Member Type Diagnosis Age [...]
[2024-08-23 12:56] VITALS: BP 139/99; PULSE 78; TEMP 36.5; O2SAT 99; BMI 31.4
--- OUTSIDE RECORDS SUMMARY | 2024-09-05 10:21 | XMS_ITS | Continuity of Care Document ---
Author Organization [facility] Address [address] [place] [address] Phone Care Team Providers Care President Finance Company Name Role Phone Saniya Mays APRN Primary Care Provider Brent Roland DO Attending Provider Kamaljit Romero MD Attending Provider Saniya Mays APRN Attending Provider Care Teams Patient Care Team Team Status: Active Member Role Status Dates Saniya Mays APRN [employer] Primary Care Provider Active Visit Care Team Team Status: Active Member Role Status Dates Saniya Mays APRN [employer] Primary Care Provider Active Start: July 23, 2024 Brent Roland DO Attending Provider Active Start : July 23, 2024 Visit Care Team Team Status: Active Member Role Status Dates Saniya Mays APRN [employer]C Primary Care Provider Active Start: August 02, 2024 Brent Roland DO Attending Provider Active Start : August 02, 2024 Patient Care Team Team Status: Active Member Role Status Dates Saniya Mays APRN [employer] Primary Care Provider Active Start: August 23, 2024 Kamaljit Romero MD Attending Provider Active St art: August 23, 2024 Patient Care Team Team Status: Inactive Member Role Status Dates Saniya Mays APRN [employer]-C Primary Care Provider Active Start: September 05, 2024 End: September 05, 2024 TAYLOR Harry Attending Provider Act ellie Start: September 05, 2024 End: September 05, 2024 Chief Complaint and Reason for Visit Chief Complaint Admit Date Rash September 05, 2024 1:43 pm Reason for Visit Admit Date Poison abena dermatitis September 05, 2024 1: 43pm Allergies, Adverse Reactions, Alerts Allergen Type Severity Reaction Last Updated Verified Status Comments Penicillins Allergy Moderate Hives September 05, 2024 1:45pm Yes Active azithromycin Allergy Unknown rash September 05, 2024 1:45pm Yes Active clindamycin Allergy Unknown Rash, Comment:Clind amycin Cream September 05, 2024 1:45pm Yes Active Onset Date: 03/14/2019 diphtheria,pertu ssis (acellular),te Allergy Unknown Comment:vacci ne September 05, 2024 1:45pm Yes Active Onset Date: 03/14/2019 vaccine adjuvant system, [id number] liposomal Allergy Unknown Rash September 05, 2024 1:45pm Yes Active whooping cough Allergy Unknown swelling injection site April 04, 2023 3:26pm No Active Social History Smoking Status Status Start Date End Date Date of Observa tion Never smoked tobacco (finding) September 07, 2023 1:04pm Observation Status Observation Response Date of Response Legal Sex Female (finding) Sex Assigned At Female May Family History Relationship Condition Age at Onset Recorded Date/T pool grandparent Myocardial infarction Unknown History of coronary artery bypass surgery Unknown Malignant neoplasm of colon Unknown mother Hypertension Unknown mother Hypertension Unknown Problems Active Problems Medical Problem Onset Date Status Comments Allergic reaction due to antibacterial drug Unknown Active Screening, deficiency anemia, iron Unknown Active Anxiety Unknown Active Poison abena dermatitis Unknown Active Wellness examination Unknown Active Migraines Unknown Active Hypothyroidism Unknown Active Maxillary sinusitis Unknown Active Screening for metabolic disorder Unknown Active Insect bite of eye region Unknown Active Obesity (BMI 30.0-34.9) Unknown Active Screening for lipid disorders Unknown Active Streptococcus pharyngitis Unknown Active Left knee pain Unknown Active Bronchitis Unknown Active Vitamin D deficiency Unknown Active Thyroid disease Unknown Active Problem List clean-up per request of Phys. EHR Cmte Inactive/Resolved Problems Medical Problem Onset Date Status Comments Tachycardia Unknown Resolved Problem List cl jovan-up per request of Phys. EHR Cmte Chest pain Unknown Resolved Problem List cl jovan-up per request of Phys. EHR Cmte Medications Medication Status Dose Units Route Directions Qty Days St art Date Stop Date End Date Instructions Adherence Furosemide 20 mg tablet Discont inued 20 MG PO Daily July 11, 2023 12:00a m July 18, 2023 12:45 pm Furosemide 20 mg tablet Discont inued 20 MG PO Daily 15 July 18, 2023 12:45p m August 02, 2023 12:44 pm Furosemide 20 mg tablet Discont inued 20 MG PO Daily August 02, 2023 12:44p m August 22, 2023 8:29a m Furosemide 20 mg tablet Discont inued 20 MG PO Daily August 22, 2023 8:29am September 08, 2023 4:05p m Furosemide 20 mg tablet Discont inued 20 MG PO Daily September 08, 2023 4:05pm Octob er 2023 9:06a m Furosemide 20 mg tablet Discont inued 0 .ROUTE .COMPLEX 90 Octobe r 2023 9:06am Janua ry 2024 1:38p m TAKE 1 TABLET BY MOUTH EVERY DAY Prednisone 10 mg tablet Discont inued 10 MG PO As Directed Octobe r 2023 12:00a m Decem finn 2023 2:02p m 4 daily x 2 days, 3 daily x 2 days, 2 daily x 2 days, 1 daily x 6 days Bupropion Hcl 100 mg tablet Discont inued 200 MG PO Twice daily 60 Novemb er 2023 12:27p m Decem finn 2023 2:07p m Furosemide 20 mg tablet Active 0 .ROUTE .COMPLEX 90 Maruar y 2024 1:38pm TAKE 1 TABLET BY MOUTH EVERY DAY Complies with drug therapy Phentermine (Adipex-P) 37.5 mg tablet Discont inued 37.5 MG PO Daily 2024 3:56pm May 16, 2024 11:50 am must administer 30 minutes before or 1-2 hours after breakfast Levothyroxi ne 137 mcg capsule Active 137 MCG PO Daily May 31, 2024 1:56pm Complies with drug therapy Phentermine (Adipex-P) 37.5 mg tablet Discont inued 37.5 MG PO Daily June 15, 2024 11:08a m July 17, 2024 11:31 am must administer 30 minutes before or 1-2 hours after breakfast Phentermine (Adipex-P) 37.5 mg tablet Discont inued 37.5 MG PO Daily July 17, 2024 11:31a m August 27, 2024 10:51 am must administer 30 minutes before or 1-2 hours after breakfast Methylpredn isolone (Medrol (Chad)) 4 mg tablets,dos e pack Discont inued 0 PO per package directions August 27, 2024 12:00a m September 05, 2024 8:09a m PO PER PKG DIR Levothyroxi ne 175 mcg tablet Discont inued 175 MCG PO Daily 2022 12:00a m June 17, 2023 2:15p m Metformin 500 mg tablet extended release 24 hr Discont inued 500 MG PO Bedtime 2022 12:00a m [facility]2022 1:05p m Propranolol 120 mg capsule,ext ended release 24 hr Discont inued 120 MG PO Daily 30 2022 12:00a m June 17, 2023 2:15p m Levothyroxi ne 137 mcg capsule Discont inued 137 MCG PO Daily 30 2022 12:00a m May 31, 2024 1:56p m Metformin 500 mg tablet extended release 24 hr Discont inued 500 MG PO Twice daily 180 90 2022 1:05pm June 17, 2023 2:15p m Propranolol 120 mg capsule,ext ended release 24 hr Discont inued 120 MG PO Daily July 12, 2023 12:00a m September 07, 2023 1:46p m Methylpredn isolone (Medrol (Chad)) 4 mg tablets,dos e pack Discont inued 0 PO per package directions 01 09October 10, 2023 12:00a m [facility] 2023 11:05 am PO PER PKG DIR Methylpredn isolone (Medrol (Chad)) 4 mg tablets,dos e pack Discont inued 0 PO per package directions 2023 11:05a m Octob 2023 11:01 am PO PER PKG DIR Naltrexone 50 mg tablet Discont inued 25 MG PO Twice daily 30 2023 12:00a m [facility] 2023 2:07p m Bupropion Hcl 100 mg tablet Discont inued 200 MG PO Twice daily 60 2024 12:00a m Counts Include [facility] finn 2023 12:27 pm Doxycycline Monohydrate 100 mg tablet Discont inued 100 MG PO Twice daily 20 10 Decemb er 2023 1:00am May 16, 2024 11:47 am Fluconazole 150 mg tablet Discont inued 150 MG PO Q3D 2 0 Decemb er 2023 1:00am May 16, 2024 11:47 am Take 1st dose at onset of symptoms then repeat in 3 days if continued symptoms Phentermine (Adipex-P) 37.5 mg tablet Discont inued 37.5 MG PO Daily 30 30 Decemb er 2023 1:00am Janua ry 2024 12:51 pm must administer 30 minutes before or 1-2 hours after breakfast Phentermine (Adipex-P) 37.5 mg tablet Discont inued 37.5 MG PO Daily 30 May 16, 2024 11:47a m June 15, 2024 11:09 am must administer 30 minutes before or 1-2 hours after breakfast Prednisone 20 mg tablet Discont inued 20 MG PO Twice daily 10 2023 1:00am June 17, 2023 2:15p m Cephalexin 500 mg capsule Discont inued 500 MG PO Every 8 hours 21 7 2023 1:00am June 17, 2023 2:15p m Fluconazole 150 mg tablet Discont inued 150 MG PO Q3D 2 2023 1:00am June 17, 2023 2:15p m Liothyronin e 5 mcg tablet Active 5 MCG PO Daily June 17, 2023 12:00a m Complies with drug therapy Buspirone 5 mg tablet Discont inued 5 MG PO Twice daily as needed for anxiety June 17, 2023 12:00a m September 07, 2023 1:46p m Naltrexone- Bupropion (Contrave) 8-90 mg tablet extended release Discont inued 1 TAB PO Twice daily October 03, 2023 12:00a m October 03, 2023 3:18p m Naltrexone- Bupropion (Contrave) 8-90 mg tablet extended release Discont inued 2 TAB PO Twice daily October 03, 2023 3:18pm [facility] 2023 8:13a m Phentermine (Adipex-P) 37.5 mg tablet Discont inued 37.5 MG PO Daily y 2024 12:48p m Febru christiana 2024 3:57p m must administer 30 minutes before or 1-2 hours after breakfast Prednisone 10 mg tablet Active 10 MG PO daily September 05, 2024 12:00a m Take 40 mg for 2 days, 30 mg for 2 days, 20 mg for 2 days, 10 mg for 2 days, 1/2 tablet for 2 days Complies with drug therapy Triamcinolo ne Acetonide 0.1 % cream Active 1 APPLIC TOPICA L Twice daily September 05, 2024 12:00a m Complies with drug therapy Relevant Diagnostic Tests and/or Laboratory Data Laboratory Results Test Collection Date/Time Result Date/Time Result Interpretation Reference Range Result Comment Performing Site Anion Gap July 23, 2024 11:34am July 23, 2024 11:34am 10.4 Basophils # (Auto) July 23, 2024 11:34am July 23, 2024 11:34am 0.1 10 3/uL 0.0-0.1 Basophils # (Auto) August 02, 2024 11:09am August 02, 2024 11:09am 0.1 10 3/uL 0.0-0.1 Anion Gap August 23, 2024 12:53pm August 23, 2024 12:53pm 12.2 Basophils # (Auto) August 23, 2024 12:53pm August 23, 2024 12:53pm 0.0 10 3/uL 0.0-0.1 Albumin/Globu keyanna Ratio July 23, 2024 11:34am July 23, 2024 11:34am 1.0 Basophils (%) (Auto) July 23, 2024 11:34am July 23, 2024 11:34am 0.6 % 0.2-2.0 Basophils (%) (Auto) August 02, 2024 11:09am August 02, 2024 11:09am 0.6 % 0.2-2.0 BUN/Creatinin e Ratio August 23, 2024 12:53pm August 23, 2024 12:53pm 11.0 Basophils (%) (Auto) August 23, 2024 12:53pm August 23, 2024 12:53pm 0.6 % 0.2-2.0 Albumin July 23, 2024 11:34am July 23, 2024 11:34am 3.5 g/dL 3.4-5.0 Eosinophils # (Auto) July 23, 2024 11:34am July 23, 2024 11:34am 0.2 10 3/uL 0.0-0.7 Eosinophils # (Auto) August 02, 2024 11:09am August 02, 2024 11:09am 0.1 10 3/uL 0.0-0.7 Blood Urea Nitrogen August 23, 2024 12:53pm August 23, 2024 12:53pm 9.0 mg/dL 7.0-18.0 Eosinophils # (Auto) August 23, 2024 12:53pm August 23, 2024 12:53pm 0.2 10 3/uL 0.0-0.7 Alkaline Phosphatase July 23, 2024 11:34am July 23, 2024 11:34am 70 U/L 46-116 Eosinophils (%) (Auto) July 23, 2024 11:34am July 23, 2024 11:34am 1.8 % 0.9-7.0 Eosinophils (%) (Auto) August 02, 2024 11:09am August 02, 2024 11:09am 1.6 % 0.9-7.0 Calcium Level August 23, 2024 12:53pm August 23, 2024 12:53pm 9.0 mg/dL 8.5-10.1 Eosinophils (%) (Auto) August 23, 2024 12:53pm August 23, 2024 12:53pm 3.0 % 0.9-7.0 Alanine Aminotransfer ase (ALT/SGPT) July 23, 2024 11:34am July 23, 2024 11:34am 37 U/L 14-59 Hematocrit July 23, 2024 11:34am July 23, 2024 11:34am 40.5 % 36.0-48.0 Hematocrit August 02, 2024 11:09am August 02, 2024 11:09am 43.7 % 36.0-48.0 Chloride Level August 23, 2024 12:53pm August 23, 2024 12:53pm 104 mmol/L 98-107 Hematocrit August 23, 2024 12:53pm August 23, 2024 12:53pm 39.6 % 36.0-48.0 Aspartate Amino Transf (AST/SGOT) July 23, 2024 11:34am July 23, 2024 11:34am 15 U/L 15-37 Hemoglobin July 23, 2024 11:34am July 23, 2024 11:34am 13.1 g/dL 12.0-16.0 Hemoglobin August 02, 2024 11:09am August 02, 2024 11:09am 14.1 g/dL 12.0-16.0 Carbon Dioxide Level August 23, 2024 12:53pm August 23, 2024 12:53pm 26.7 mmol/L 21.0-32.0 Hemoglobin August 23, 2024 12:53pm August 23, 2024 12:53pm 12.9 g/dL 12.0-16.0 BUN/Creatinin e Ratio July 23, 2024 11:34am July 23, 2024 11:34am 16.9 Immature Granulocyte # (Auto) July 23, 2024 11:34am July 23, 2024 11:34am 0.02 10 3/uL 0.00-0.03 Immature Granulocyte # (Auto) August 02, 2024 11:09am August 02, 2024 11:09am 0.02 10 3/uL 0.00-0.03 Creatinine August 23, 2024 12:53pm August 23, 2024 12:53pm 0.82 mg/dL 0.55-1.02 Immature Granulocyte # (Auto) August 23, 2024 12:53pm August 23, 2024 12:53pm 0.01 10 3/uL 0.00-0.03 Blood Urea Nitrogen July 23, 2024 11:34am July 23, 2024 11:34am 14.0 mg/dL 7.0-18.0 Immature Granulocyte % (Auto) July 23, 2024 11:34am July 23, 2024 11:34am 0.2 % 0.0-0.5 Immature Granulocyte % (Auto) August 02, 2024 11:09am August 02, 2024 11:09am 0.2 % 0.0-0.5 Estimated GFR () August 23, 2024 12:53pm August 23, 2024 12:53pm >60 >=60 mL/min/1.7 3m 2 Immature Granulocyte % (Auto) August 23, 2024 12:53pm August 23, 2024 12:53pm 0.1 % 0.0-0.5 Calcium Level July 23, 2024 11:34am July 23, 2024 11:34am 8.6 mg/dL 8.5-10.1 Lymphocytes # (Auto) July 23, 2024 11:34am July 23, 2024 11:34am 2.7 10 3/uL 1.2-3.8 Lymphocytes # (Auto) August 02, 2024 11:09am August 02, 2024 11:09am 3.0 10 3/uL 1.2-3.8 Estimated GFR (Non- August 23, 2024 12:53pm August 23, 2024 12:53pm >60 >=60 mL/min/1.7 3m 2 Lymphocytes # (Auto) August 23, 2024 12:53pm August 23, 2024 12:53pm 2.4 10 3/uL 1.2-3.8 Chloride Level July 23, 2024 11:34am July 23, 2024 11:34am 105 mmol/L 98-107 Lymphocytes (%) (Auto) July 23, 2024 11:34am July 23, 2024 11:34am 30.8 % 20.5-60.0 Lymphocytes (%) (Auto) August 02, 2024 11:09am August 02, 2024 11:09am 33.4 % 20.5-60.0 Glucose Level August 23, 2024 12:53pm August 23, 2024 12:53pm 94 mg/dL 74-106 Lymphocytes (%) (Auto) August 23, 2024 12:53pm August 23, 2024 12:53pm 34.9 % 20.5-60.0 Carbon Dioxide Level July 23, 2024 11:34am July 23, 2024 11:34am 26.9 mmol/L 21.0-32.0 Mean Corpuscular Hemoglobin July 23, 2024 11:34am July 23, 2024 11:34am 26.6 pg Below low normal 26.7-34.0 Mean Corpuscular Hemoglobin August 02, 2024 11:09am August 02, 2024 11:09am 26.7 pg 26.7-34.0 Potassium Level August 23, 2024 12:53pm August 23, 2024 12:53pm 3.9 mmol/L 3.5-5.1 Mean Corpuscular Hemoglobin August 23, 2024 12:53pm August 23, 2024 12:53pm 26.2 pg Below low normal 26.7-34.0 Creatinine July 23, 2024 11:34am July 23, 2024 11:34am 0.83 mg/dL 0.55-1.02 Mean Corpuscular Hemoglobin Concent July 23, 2024 11:34am July 23, 2024 11:34am 32.3 g/dL 29.9-35.2 Mean Corpuscular Hemoglobin Concent August 02, 2024 11:09am August 02, 2024 11:09am 32.3 g/dL 29.9-35.2 Sodium Level August 23, 2024 12:53pm August 23, 2024 12:53pm 139 mmol/L 136-145 Mean Corpuscular Hemoglobin Concent August 23, 2024 12:53pm August 23, 2024 12:53pm 32.6 g/dL 29.9-35.2 Estimated GFR () July 23, 2024 11:34am July 23, 2024 11:34am >60 >=60 mL/min/1.7 3m 2 Mean Corpuscular Volume July 23, 2024 11:34am July 23, 2024 11:34am 82.3 fL 81.0-99.0 Mean Corpuscular Volume August 02, 2024 11:09am August 02, 2024 11:09am 82.8 fL 81.0-99.0 Mean Corpuscular Volume August 23, 2024 12:53pm August 23, 2024 12:53pm 80.5 fL Below low normal 81.0-99.0 Estimated GFR (Non- July 23, 2024 11:34am July 23, 2024 11:34am >60 >=60 mL/min/1.7 3m 2 Monocytes # (Auto) July 23, 2024 11:34am July 23, 2024 11:34am 0.6 10 3/uL 0.3-0.8 Monocytes # (Auto) August 02, 2024 11:09am August 02, 2024 11:09am 0.5 10 3/uL 0.3-0.8 Monocytes # (Auto) August 23, 2024 12:53pm August 23, 2024 12:53pm 0.3 10 3/uL 0.3-0.8 Globulin July 23, 2024 11:34am July 23, 2024 11:34am 3.6 g/dL Monocytes (%) (Auto) July 23, 2024 11:34am July 23, 2024 11:34am 6.6 % 1.7-12.0 Monocytes (%) (Auto) August 02, 2024 11:09am August 02, 2024 11:09am 5.4 % 1.7-12.0 Monocytes (%) (Auto) August 23, 2024 12:53pm August 23, 2024 12:53pm 4.9 % 1.7-12.0 Glucose Level July 23, 2024 11:34am July 23, 2024 11:34am 88 mg/dL 74-106 Mean Platelet Volume July 23, 2024 11:34am July 23, 2024 11:34am 9.1 fL Below low normal 9.5-13.5 Mean Platelet Volume August 02, 2024 11:09am August 02, 2024 11:09am 8.9 fL Below low normal 9.5-13.5 Mean Platelet Volume August 23, 2024 12:53pm August 23, 2024 12:53pm 8.9 fL Below low normal 9.5-13.5 Potassium Level July 23, 2024 11:34am July 23, 2024 11:34am 4.3 mmol/L 3.5-5.1 Neutrophils # (Auto) July 23, 2024 11:34am July 23, 2024 11:34am 5.3 10 3/uL 1.4-6.5 Neutrophils # (Auto) August 02, 2024 11:09am August 02, 2024 11:09am 5.3 10 3/uL 1.4-6.5 Neutrophils # (Auto) August 23, 2024 12:53pm August 23, 2024 12:53pm 3.8 10 3/uL 1.4-6.5 Sodium Level July 23, 2024 11:34am July 23, 2024 11:34am 138 mmol/L 136-145 Neutrophils (%) (Auto) July 23, 2024 11:34am July 23, 2024 11:34am 60.0 % 43.0-75.0 Neutrophils (%) (Auto) August 02, 2024 11:09am August 02, 2024 11:09am 58.8 % 43.0-75.0 Neutrophils (%) (Auto) August 23, 2024 12:53pm August 23, 2024 12:53pm 56.5 % 43.0-75.0 Total Bilirubin July 23, 2024 11:34am July 23, 2024 11:34am 0.3 mg/dL 0.2-1.0 Platelet Count July 23, 2024 11:34am July 23, 2024 11:34am 380 10 3/uL 150-450 Platelet Count August 02, 2024 11:09am August 02, 2024 11:09am 369 10 3/uL 150-450 Platelet Count August 23, 2024 12:53pm August 23, 2024 12:53pm 398 10 3/uL 150-450 Total Protein July 23, 2024 11:34am July 23, 2024 11:34am 7.1 g/dL 6.4-8.2 Red Blood Count July 23, 2024 11:34am July 23, 2024 11:34am 4.92 10 6/uL 4.20-5.40 Red Blood Count August 02, 2024 11:09am August 02, 2024 11:09am 5.28 10 6/uL 4.20-5.40 Red Blood Count August 23, 2024 12:53pm August 23, 2024 12:53pm 4.92 10 6/uL 4.20-5.40 Red Cell Distribution Width July 23, 2024 11:34am July 23, 2024 11:34am 13.2 % 11.0-15.0 Red Cell Distribution Width August 02, 2024 11:09am August 02, 2024 11:09am 13.1 % 11.0-15.0 Red Cell Distribution Width August 23, 2024 12:53pm August 23, 2024 12:53pm 13.2 % 11.0-15.0 Corrected White Blood Count July 23, 2024 11:34am July 23, 2024 11:34am 8.8 10 3/uL 4.0-11.0 Corrected White Blood Count August 02, 2024 11:09am August 02, 2024 11:09am 9.0 10 3/uL 4.0-11.0 Corrected White Blood Count August 23, 2024 12:53pm August 23, 2024 12:53pm 6.7 10 3/uL 4.0-11.0 Vital Signs Vital Reading Result Reference Range Collection Date/Time Height 69 [in_i] September 05, 2024 1:46pm Weight 96.16 kg September 05, 2024 1:46pm Body Temperature 98.8 [degF] 97.6-99.0 September 05, 2024 1:46pm BP Systolic 124 mm[Hg] 100-140 September 05, 2024 1:46pm BP Diastolic 80 mm[Hg] 60-100 September 05, 2024 1:46pm BMI (Body Mass Index) 31.3 kg/m2 August 132024 1:46pm Advance Directives Advance Directive Response Recorded Date/ Time Advance Directives No April 12, 2017 3:55pm Insurance Providers Guarantor Karlene Alfaro Address [address] [place] [address] [place] [id number] Contact Info. Home Phone: Payer Policy Id Subscriber's Name Subscriber Id Effectiv e Date Expiration Date Harpal PETERSEN [id number] Jean Shields [id number] Encounters Encounter Location(s) Arrival/Admit Date Discharge/Depart Date Provider(s) Non-patient / Non-visit -[facility] July 23, 2024 11:34am Brent Asuncion Non-patient / Non-visit -[facility] August 02, 2024 11:09am Brent Asuncion Non-patient / Non-visit -[facility] August 23, 2024 12:53pm Kamaljit Romero MD Departed Physician/Prov ider Office Visit -[facility] September 05, 2024 1:43pm September 05, 2024 2:18pm Saniya Mays APRN CNP Recent Diagnosis Onset Date Admit Date Poison abena dermatitis Unknown September 05, 2024 1:43pm Assessments Diagnosis Onset Date Resolution Status Admit Date Poison abena dermatitis acute Aug 1:43pm
[2024-09-06] VITALS (9 sets, daily range): BP systolic 114–137; BP diastolic 79–93; PULSE 69–91; TEMP 36.1–36.3; O2SAT 96–100; BMI 30.7
--- OUTSIDE RECORDS SUMMARY | 2024-09-06 06:56 | XMS_ITS | Encounter Summary ---
Author Organization [facility] Address [address] [facility] [place] [address] Care Team Providers Care Software Tools Engineer Name Role Phone Aminta Piper MD Primary Care Provider Encounter Details Date Type Department Care Team (Late Contact Info) Description 08/02/2024 Abstract [facility] [address] [place] [phone] Brent Roland DO [facility] Rhonda [place], [place] [address] Social History Tobacco Use Types Packs/Day Years [...] 10/09/2024 1:00 PM EDT Office Visit [facility] [address] [place] [phone] Brent Roland DO [address] [place], [place] [id number] documented as of this encounter Visit Diagnoses Not on filedocumented in this encounter Care Teams Software Tools Engineer Relationship Specialty Start Date End Date Aminta Piper MD [address] [place] [address] PCP - General Family Medicine 09/27/22 documented as of this encounter
--- OUTSIDE RECORDS SUMMARY | 2024-09-06 06:56 | XMS_ITS | Encounter Summary ---
Author Organization [facility] Address [address] [place] [address] Care Team Providers Care 2Nd Pressman Name Role Phone Aminta Piper MD Primary Care Provider [phone] Reason for Visit * Reason Comments Med Refill Encounter Details Date Type Department Care Team (Late st Contact Info) Description 02/23/2023 Refill [facility] [address] [place] [phone] Brent Roland, DO [address] [facility] [address] [place], [place] [address] Vaginal yeast infection Social History Tobacco Use [...] Office Visit [facility] [address] [place] [phone] Brent Roland DO [address] [place] [address] Dr [place], [place] [id number] documented as of this encounter Visit Diagnoses Diagnosis Vaginal yeast infection Candidiasis of vulva and vagina documented in this encounter Care Teams 2Nd Pressman Relationship Specialty Start Date End Date Aminta Piper MD [address] [facility] [place] [phone] PCP - General Family Medicine 09/27/22 documented as of this encounter
--- OUTSIDE RECORDS SUMMARY | 2024-09-06 06:56 | XMS_ITS | Encounter Summary ---
Author Organization [facility] Address [address] [facility] [place] [address] Care Team Providers Care Environmental Communications Specialist Name Role Phone Aminta Piper MD Primary Care Provider Encounter Details Date Type Department Care Team (Late Contact Info) Description 07/27/2024 Abstract [facility] [address] [address] Kenyatta Salazar MA Social History Tobacco [...] 10/09/2024 1:00 PM EDT Office Visit [facility] [address] [facility] [place] [place] [address] Brent Roland DO [address] [place], [place] [id number] documented as of this encounter Visit Diagnoses Not on filedocumented in this encounter Care Teams Environmental Communications Specialist Relationship Specialty Start Date End Date Aminta Piper MD [address] [facility] [place] [phone] PCP - General Family Medicine 09/27/22 documented as of this encounter
--- OUTSIDE RECORDS SUMMARY | 2024-09-06 06:56 | XMS_ITS | Encounter Summary ---
Author Organization [facility] Address [address] [facility] [place] [address] Care Team Providers Care Contract Consultant Name Role Phone Aminta Piper MD Primary Care Provider Encounter Details Date Type Department Care Team (Late st Contact Info) Description 09/24/2022 Abstract [facility] [address] [place] [address] Yesica Mcnair PA [address] [place], [facility] Social History Tobacco Use Types Packs/Day Years [...] 10/09/2024 1:00 PM EDT Office Visit [facility] OB [address] [place], [place] [address] [place] [address] Brent Roland, DO [address], [facility] documented as of this encounter Visit Diagnoses Not on filedocumented in this encounter Care Teams Contract Consultant Relationship Specialty Start Date End Date Aminta Piper MD [address] [place] [phone] PCP - General Family Medicine 09/27/22 documented as of this encounter
--- OUTSIDE RECORDS SUMMARY | 2024-09-06 06:56 | XMS_ITS | Encounter Summary ---
Author Organization [facility] Address [address] [facility] [place] [address] Care Team Providers Care Spaghetti Machine Operator Name Role Phone Aminta Piper MD Primary Care Provider [phone] Reason for Visit * Reason Comments Med Refill Encounter Details Date Type Department Care Team (Late Contact Info) Description 09/05/2024 Refill [facility] [address] [place] [address] Brent Roland DO [facility] [place] [address] Yeast infection Social History Tobacco Use Types Packs/Day [...] EDT Office Visit [facility] [address] [place] [address] Brent Roland DO [facility] [place] [id number] documented as of this encounter Visit Diagnoses Diagnosis Yeast infection documented in this encounter Care Teams Spaghetti Machine Operator Relationship Specialty Start Date End Date Aminta Piper MD [address] [place] [address] PCP - General Family Medicine 09/27/22 documented as of this encounter
--- OUTSIDE RECORDS SUMMARY | 2024-09-06 06:56 | XMS_ITS | Clinical Summary ---
Author Organization [facility] Address [address] [place] [address] Care Team Providers Care Financial Advisor Trainee Name Role Phone Aminta Piper MD Primary Care Provider [phone] Allergies Active Allergy Reactions Criticality Noted Date Comments Azithromycin Rash Low 07/12/2024 Clindamycin Rash Low 09/23/2022 Wsiqiqc-Ukzgvs-Lyuah Pertussis Swelling 09/23 Tetanus-Diphtheria Toxoids Td Other 2024 Medications levothyroxine (Synthroid, Levoxyl) 137 MCG tablet Take 137 mcg by mouth in the morning. Take before meals. 3 Active dicyclomine (Bentyl) 10 MG capsuleIndicati ons:Abdominal cramping Take 1 capsule (10 mg) by mouth 3 (three) times a day as needed (cramping) 30 capsule 1 5 Active liothyronine (Cytomel) 5 MCG tabletIndicatio ns:Hypothyroidi sm, unspecified TAKE 1 TABLET BY MOUTH DAILY. 90 tablet 1 5 Active Black Cohosh 20 MG tablet Take 1 tablet by mouth Daily Active Ergocalciferol (VITAMIN D2 PO) Take 1 tablet by mouth Daily Active metFORMIN XR (Glucophage-XR) 500 MG 24 hr tabletIndicatio ns:Insulin resistance Take 1 tablet (500 mg) by mouth in the evening. Take with meals Do not crush, chew, or split. 30 tablet 11 5 026 Active zolpidem (Ambien) 5 MG tabletIndicatio ns:Other insomnia Take 1 tablet (5 mg) by mouth as needed at bedtime for sleep for up to 20 doses 20 tablet 5 Active mirabegron ER (Myrbetriq) 50 MG 24 hr tablet Take 50 mg by mouth at bedtime Do not crush, chew, or split. Active tamsulosin (Flomax) 0.4 MG 24 hr capsule Take 0.4 mg by mouth Daily Active methenamine hippurate (Hiprex) 1 g tablet Take 1 g by mouth in the morning and 1 g before bedtime. Active ibuprofen 800 MG tabletIndicatio ns:Pelvic pain TAKE 1 TABLET BY MOUTH EVERY 8 HOURS NEEDED FOR MILD PAIN 60 tablet 3 5 Active ibuprofen 800 MG tabletIndicatio ns:Pelvic pain Take 1 tablet (800 mg) by mouth every 8 (eight) hours if needed for mild pain 60 tablet 1 5 025 Discontinued Active Problems Problem Noted Date Diagnosed Date Acute postoperative pain 08/14/2024 Postoperative follow-up 08/14/2024 Encounters Date Type Department Care Team Description 09/05/20[address] [facility] [address] [place] [address] Lion Roland DO Yeast infection 08/23/[address] [facility] [address] [place] [address] Lion Roland, Pelvic pain 08/14/2024 1:20 PM EDT Office Visit [facility] [address] [place] [address] Yesica Mcnair PA Acute postoperative pain; Postoperative follow-up; Other insomnia 08/14/2024 Bamboo flowsheet [facility] [address] [place] [address] Yesica Mcnair PA 08/14/2024 Travel 08/05/[address] [facility] [address] [place] [address] Lion Roland, 08/02/2024 Abstract [facility] [address] [place] [address] Lion Roland, 08/02/[address] [facility] [address] [place] [address] Laney Chow, WORM GROWER 08/02/2024 Clinisync Result Encounter [facility] External Department Unsolicited Lion Roland, DO 07/30/20[address] [facility] [address] [place] [address] [phone] Ashley Nicole, WORM GROWER 07/27/2024 Abstract [facility] [address] [place] [address] Keny[place] 07/23/2024 9:00 AM EDT Consult [facility] [address] [place] [address] Lion Roland, Pre-op evaluation; Pelvic pain in female; Pain of ovary; H/O: hysterectomy 07/23/2024 Clinisync Result Encounter [facility] External Department Unsolicited Lion Roland, DO 07/23/2024 Clinisync Result Encounter [facility] External Department Unsolicited Lion Roland, DO 07/23/2024 Bamboo flowsheet [facility] [address] [place] [address] Lion Roland, DO 07/23/2024 Travel 07/12/[address] [facility] [address] [place] [address] Hedy Carter, [place] 07/10/2024 10:00 AM EDT Office Visit [facility] [address] [place] [address] Lion Roland, Pelvic pain; Insulin resistance 07/10/2024 External Result Encounter [facility] External Department Unsolicited Lion Roland, DO 07/10/2024 Bamboo flowsheet [facility] [address] [place] [address] Lion Roland, DO 07/09/2024 Travel 07/04/2024 Refill [facility] [address] [place] [address] Aniya Waldrop MD Hypothyroidism, unspecified 07/03/2024 Telephone [facility] [address] [place] [address] Ashley Nicole LPN 07/03/2024 Clinisync Result Encounter [facility] External Department Unsolicited Lion Roland DO 07/02/20[address]phone [facility] [address] [place] [address] Ashley Nicole, SALOME from Last 3 Months Family History Medical [...] EDT Office Visit [facility] [address] [facility] [place] [address] Lion Roland, DO [address] [facility] [place] [address] Health Maintenance Due Date Last Done Comments HPV/Cotest 06/10/2019 Influenza Vaccine (Season Ended) 2024 Cervical Cancer Screening 12/28/2025 Pap Smear 12/28/2025 12/28/2022 Procedures Procedure Name Priority Date/Time Associated Diagnosis Comments ALL CBC WITH AUTO DIFF Routine 08/02/2024 11:09 AM EDT [facility] CMP (CMP) (FOR REMOTE [facility] USE) Routine 07/23/2024 11:34 AM EDT ALL [...] of2 resultswithin the time period is included. TB WBC 9.0 4.0 - 11.0 10 3/uL [...] TB * [facility] CMP (CMP) (FOR REMOTE [facility] USE) (07/23/2024 11:34 AM EDT) SODIUM 138 136 - 145 mmol/L [facility] POTASSIUM 4.3 3.5 - 5.1 mmol/L [facility] CHLORIDE 105 98 - 107 mmol/L [facility] CARBON DIOXIDE 26.9 21.0 - 32.0 mmol/L [facility] ANION GAP 10.4 [facility] GLUCOSE 88 74 - 106 mg/dL [facility] BLOOD UREA NITROGEN 14.0 7.0 - 18.0 mg/dL [facility] CREATININE 0.83 0.55 - 1.02 mg/dL [facility] TBH EGFR-AF [place] >60 >=60 mL/min/1. 73m 2 TB[facility] TBH EGFR-NON AF [place] >60 >=60 mL/min/1. 73m 2 [facility] BUN [...] - 07/23/2024 12:23 PM EDT us Lion Anguloo DO [facility] Final Result [facility] TB * ECG 12-LEAD (07/23/2024 11:29 AM EDT) Anatomical Region Laterality Modality Other 07/23/2024 11:2 9 AM EDT Narrative 07/23/2024 11:54 AM EDT The [address] [address] Electrocardiograph Report Signed Patient: KARLENE ALFARO MR#: [id number] : 1990 Acct:[id number] Age/Sex: 34 / F ADM Date: 07/23/24 Loc: PST Attending Dr: Lion Roland D.O. Ordering Physician: Lion Roland D.O. Date of Service: 07/23/24 Procedure(s): ECG 12 lead Accession Number(s): [id number] cc: [facility] Test Date: 2024-07-23 Pat Name: KARLENE ALFARO Department: Room: - Gender: Female Carton Stapler: : 1990 Requested By: LION ROLAND Order Number: [id number] Reading MD: CHUY SHABAZZ M.D. Measurements Intervals [place] Rate: 71 P: 33 AL: 148 QRS: 42 QRSD: 82 T: 30 QT: 389 QTc: 424 Interpretive Statements SINUS RHYTHM POSSIBLE RIGHT VENTRICULAR CONDUCTION DELAY [RSR (QR) IN V1/V2] Borderline ECG Compared to ECG 05/02/2023 11:46:38 Sinus tachycardia no longer present Right-axis deviation no longer present Electronically Signed On 07-23-2024 11:53:48 EDT by CHUY SHABAZZ M.D. Dictated By: CHUY SHABAZZ Signed By: 07/23/24 1154 DD/ 1129 TD/TT: Specialty Molder: Procedure Note Radiology, Radiologist, MD - 07/23/2024 [place] [address] Electrocardiograph Report Signed Patient: KARLENE ALFARO KMR#: [id number] : 1990Acct:[id number] Age/Sex: 34 / FADM Date: 07/23/24 Loc: PST Attending Dr: Lion Roland D.O. Ordering Physician: Lion Roland D.O. 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 Measurements Intervals [place] Rate: 71 P: 33 AL: 148 QRS: 42 QRSD: 82 T: 30 QT: 389 QTc: 424 Interpretive Statements SINUS RHYTHM POSSIBLE RIGHT VENTRICULAR CONDUCTION DELAY [RSR (QR) IN V1/V2] Borderline ECG Compared to ECG 05/02/2023 11:46:38 Sinus tachycardia no longer present Right-axis deviation no longer present Electronically Signed On 07-23-2024 11:53:48 EDT by CHUY SHABAZZ M.D. Dictated By: CHUY SHABAZZ Signed By:07/23/24 1154 DD/ 1129 TD/TT: Specialty Molder: us Lion Roland DO [facility] IMAGING Final Result * (ABNORMAL) RECURRENT VAGINITIS (HTRX) (07/10/2024 11:43 AM EDT) Pathologist [facility] ATOPOBIUM VAGINAE 30.718(A) 19.961 - 24.689 ppm 07/11/2024 6:09 AM EDT [facility] ATOPOBIUM VAGINAE Detected(A) 19.961 - 24.689 ppm 07/11/2024 6:09 AM EDT [facility] BVAB 2,3 (BACTERIAL VAGINOSIS ASSOCIATED BACTERIA 2, 3); MOBILUNCUS SPP 0.000 19.961 - 24.689 ppm 07/11/2024 6:09 AM EDT [facility] BVAB 2,3 (BACTERIAL VAGINOSIS ASSOCIATED BACTERIA 2, 3); MOBILUNCUS SPP Not Detected 19.961 - 24.689 ppm 07/11/2024 6:09 AM EDT [facility] DARIA ALBICANS, PARAPSILOSIS, TROPICALIS 0.000 19.961 - 30.770 ppm 07/11/2024 6:09 AM EDT [facility] DARIA ALBICANS, PARAPSILOSIS, TROPICALIS Not Detected 19.961 - 30.770 ppm 07/11/2024 6:09 AM EDT [facility] DARIA GLABRATA 0.000 23.000 - 32.138 ppm 07/11/2024 6:09 AM EDT [facility] DARIA GLABRATA Not Detected 23.000 - 32.138 ppm 07/11/2024 6:09 AM EDT [facility] DARIA KRUSEI 0.000 23.000 - 32.271 ppm 07/11/2024 6:09 AM EDT [facility] DARIA KRUSEI Not Detected 23.000 - 32.271 ppm 07/11/2024 6:09 AM EDT [facility] CHLAMYDIA TRACHOMATIS 0.000 23.000 - 31.467 ppm 07/11/2024 6:09 AM EDT [facility] CHLAMYDIA TRACHOMATIS Not Detected 23.000 - 31.467 ppm 07/11/2024 6:09 AM EDT [facility] GARDNERELLA VAGINALIS 0.000 19.961 - 24.689 ppm 07/11/2024 6:09 AM EDT [facility] GARDNERELLA VAGINALIS Not Detected 19.961 - 24.689 ppm 07/11/2024 6:09 AM EDT [facility] MEGASPHAERA (TYPES 1, 2) 0.000 19.961 - 24.689 ppm 07/11/2024 6:09 AM EDT [facility] MEGASPHAERA (TYPES 1, 2) Not Detected 19.961 - 24.689 ppm 07/11/2024 6:09 AM EDT [facility] NEISSERIA GONORRHOEAE 0.000 23.000 - 32.117 ppm 07/11/2024 6:09 AM EDT [facility] NEISSERIA GONORRHOEAE Not Detected 23.000 - 32.117 ppm 07/11/2024 6:09 AM EDT [facility] TRICHOMONAS VAGINALIS 0.000 23.000 - 32.119 ppm 07/11/2024 6:09 AM EDT [facility] TRICHOMONAS VAGINALIS Not Detected 23.000 - 32.119 ppm 07/11/2024 6:09 AM EDT [facility] MYCOPLASMA GENITALIUM 0.000 19.961 - 24.689 ppm 07/11/2024 6:09 AM EDT [facility] MYCOPLASMA GENITALIUM Not Detected 19.961 - 24.689 ppm 07/11/2024 6:09 AM EDT [facility] Tissue 07/10/2024 11:4 3 AM EDT 07/11/2024 2:08 AM EDT us Lion Roland DO LAB BLOOD ORDERABLES Final Resul t [facility] [address] [place] [address] * POCT urinalysis dipstick manually resulted (07/10/2024 [...] Positive Urine 07/10/2024 10:1 0 AM EDT iLon Roland DO POINT OF CARE TEST ENTER/EDIT OR DERABLES Final Result * US PELVIS W/ TRANSVAGINAL (07/03/2024 9:30 AM EDT) Anatomical Region Laterality Modality Other 07/03/2024 9:30 AM EDT Narrative 07/03/2024 9:33 [place] [address] Ultrasound Report Signed Patient: KARLENE ALFARO MR#: [id number] : 1990 Acct:[id number] Age/Sex: 34 / F ADM Date: 07/03/24 Loc: Attending Dr: Lion Roland D.O. Ordering Physician: Lion Roland D.O. Date of Service: 07/03/24 Procedure(s): US pelvis w/ transvaginal Accession Number(s): [id number] cc: Aminta Piper M.D.; Lion Roland D.O. [place] [address] Patient Name: KARLENE ALFAOR MRN: [id number] date: 1990 Sex: F Assigned Patient Location: US Current Patient Location: US Accession/Order Number: [id number] Exam Date: 07/03/2024 09:28 Report Date: 07/03/2024 [...] Jovan Martin M.D.07/03/2024 9:30 AM Dictation Location: [place] [address] Electronically authenticated by: [id number] Y Date: 07/03/2024 09:30 Dictated By: Jovan Martin D.O. Signed By: 07/03/24 0933 DD/ 9 TD/TT: Specialty Molder: Procedure Note Radiology, Radiologist, - 07/03/2024 The [place] [id number] Ultrasound Report Signed Patient: KARLENE ALFARO KMR#: [id number] : 1990Acct:[id number] Age/Sex: 34 / FADM Date: 07/03/24 Loc: US Attending Dr: Lion Roland D.O. Ordering Physician: Lion Roland D.O. Date of Service: 07/03/24 Procedure(s): US pelvis w/ transvaginal Accession Number(s): [id number] cc: Aminta Piper M.D.; Lion Roland D.O. The [place] [id number] Patient Name: KARLENE ALFARO MRN: [id number] date: 1990 Sex: F Assigned Patient Location: US Current Patient Location: US Accession/Order Number: [id number] Exam Date: 07/03/2024 09:28 Report Date: 07/03/2024 [...] Jovan Martin M.D.07/03/2024 9:30 AM Dictation Location: [place] [address] Electronically authenticated by: [id number] Y Date: 9:30 Dictated By: Jovan Martin D.O. Signed By:07/03/2433 DD/ 9 TD/TT: Specialty Molder: us Lion Asuncion DO [facility] IMAG[facility] Final Result * Pap Smear (12/28/2022 12:00 AM EDT) Swab Cervical swab / Unknown us Lion Asuncion DO LAB CYTOLOGY ORDERABLES Final Re sult EXTERNAL LAB from Last 3 Months or Most Recently Relevant to Health Maintenance Insurance [employer] Care Teams Financial Advisor Trainee Relationship Specialty Start Date End Date Aminta Piper MD [address] [place] [address] PCP - General Family Medicine 09/27/22
--- OUTSIDE RECORDS SUMMARY | 2024-09-06 06:56 | XMS_ITS | Encounter Summary ---
Author Organization [facility] Address [address] [facility] [place] [address] Care Team Providers Care Sales And Service Specialist Name Role Phone Aminta Piper MD Primary Care Provider [phone] Encounter Details Date Type Department Care Team (Late st Contact Info) Description 03/03/2023 Abstract [facility] OB [address] [address] Tabby Evans LPN [address] [place] [address] Social History Tobacco Use Types Packs/Day Years [...] 10/09/2024 1:00 PM EDT Office Visit [facility] OB [address] [address] Brent Roland, DO [address] [facility] [address] [place], [facility] documented as of this encounter Visit Diagnoses Not on filedocumented in this encounter Care Teams Sales And Service Specialist Relationship Specialty Start Date End Date Aminta Piper MD [address] [place] [address] PCP - General Family Medicine 09/27/22 documented as of this encounter
--- OUTSIDE RECORDS SUMMARY | 2024-09-06 06:56 | XMS_ITS | Encounter Summary ---
Author Organization [facility] Address [address] [facility] [place] [address] Care Team Providers Care Paintings Restorer Name Role Phone Aminta Piper MD Primary Care Provider [phone] Reason for Visit * Reason Comments Med Refill Encounter Details Date Type Department Care Team (Late Contact Info) Description 08/05/2024 Refill [facility] [address] [facility] [place] [address] Brent Roland DO [address] [place] [address] [place] [address] Social History Tobacco Use Types Packs/Day Years [...] 10/09/2024 1:00 PM EDT Office Visit [facility] [address] [place] [address] Brent Roland DO [facility] [place] [address] documented as of this encounter Visit Diagnoses Not on filedocumented in this encounter Care Teams Paintings Restorer Relationship Specialty Start Date End Date Aminta Piper MD [address] [place] [address] PCP - General Family Medicine 09/27/22 documented as of this encounter
--- OUTSIDE RECORDS SUMMARY | 2024-09-06 06:56 | XMS_ITS | Encounter Summary ---
Author Organization [facility] Address [address] [facility] [place] [address] Care Team Providers Care Claim Agent Name Role Phone Aminta Piper MD Primary Care Provider [phone] Reason for Visit * Reason Comments Med Refill Encounter Details Date Type Department Care Team (Late Contact Info) Description 08/23/2024 Refill [facility] OB [address] [place] [address] Brent Roland DO [facility] [place] [address] Pelvic pain Social History Tobacco Use Types Packs/Day Years [...] 10/09/2024 1:00 PM EDT Office Visit [facility] [address] [place] [address] Brent Roland DO [facility] [place] [id number] documented as of this encounter Visit Diagnoses Diagnosis Pelvic pain documented in this encounter Care Teams Claim Agent Relationship Specialty Start Date End Date Aminta Piper MD [address] [place] [address] PCP - General Family Medicine 09/27/22 documented as of this encounter
--- OUTSIDE RECORDS SUMMARY | 2024-09-06 06:57 | XMS_ITS | CCD ---
Author Organization [facility] Care Team Providers Care Traffic Control Signaler Name Role Phone Treasure Quezada Unavailable SURYA HODGES Primary Care Physician [phone] MD Surya Hodges Primary Care Provider KITA Quezada Attending Provider Surya Hodges Unavailable ASUNCION ., DR SEYMOUR Admitting Unavailable TRACIE, DR SURYA Damon Primary Care Unavailable BRIDGETTE PATEL Consulting Unavailable ASUNCION ., DR SEYMOUR Attending Unavailable ASUNCION ., DR SEYMOUR Admitting Unavailable ASUNCION ., DR SEYMOUR Consulting Unavailable TRACIE, DR SURYA Damon Primary Care Unavailable ASUNCION ., DR SEYMOUR Attending Unavailable CHELSEA PINTO Consulting Unavailable BO II, MATHEW Consulting Unavailable ASUNCION ., DR SEYMOUR Admitting Unavailable ASUNCION ., DR SEYMOUR Consulting Unavailable TRACIE, DR SURYA Damon Primary Care Unavailable ASUNCION ., DR SEYMOUR Attending Unavailable LUE .JULIETH Attending Unavailable LUE .JULIETH Admitting Unavailable LUE .JULIETH Consulting Unavailable TRACIE, DR SURYA Damon Primary Care Unavailable ROMERO ., DR NAQVI Attending Unavailable ROMERO ., DR NAQVI Admitting Unavailable ROMERO ., DR NAQVI Consulting Unavailable ZIEBER, DR DAVID Rivas Consulting Unavailable ASUNCION ., DR SEYMOUR Admitting Unavailable ASUNCION ., DR SEYMOUR Consulting Unavailable TRACIE, DR SURYA Damon Primary Care Unavailable ASUNCION ., DR SEYMOUR Attending Unavailable TRACIE, DR SURYA Damon Primary Care Unavailable ROMERO ., DR NAQVI Attending Unavailable ROMERO ., DR NAQVI Admitting Unavailable TRACIE, DR SURYA Damon Primary Care Unavailable BRINA SHEIKH Attending Unavailable BRINA SHEIKH Admitting Unavailable ASUNCION ., DR SEYMOUR Admitting Unavailable ASUNCION ., DR SEYMOUR Consulting Unavailable HODGES, DR SURYA Damon Primary Care Unavailable ASUNCION ., DR SEYMOUR Attending Unavailable ASUNCION ., DR SEYMOUR Consulting Unavailable HODGES, DR SURYA Damon Primary Care Unavailable ASUNCION ., DR SEYMOUR Attending Unavailable ASUNCION ., DR SEYMOUR Admitting Unavailable Kayla Acosta Consulting Unavailable BRINA SHEIKH Admitting Unavailable BRINA SHEIKH Attending Unavailable TRACIE, DR SURYA Damon Primary Care Unavailable TRACIE, DR SURYA Damon Primary Care Unavailable LIMA, DR CROW Rivas Admitting Unavailable LIMA, DR CROW Rivas Consulting Unavailable LIMA, DR CROW Rivas Attending Unavailable MAGI BAUER Consulting Unavailable LEATHA GALVAN Consulting Unavailable RREE CARLISLE Consulting Unavailable MD Surya Hodges Primary Care Provider [phone] DO Marcio Steven Emergency Provider MD Baljinder Polanco Admit Provider MD Baljinder Polanco Attending Provider Treasure Quezada Attending Unavailable Treasure Quezada Admitting Unavailable Surya Hodges Primary Care Unavailable Baljinder Polanco Admitting Unavailable Surya Hodges Primary Care Unavailable Baljinder Polanco Attending Unavailable Jason Beasley Unavailable Surya Hodges MD Primary Care Provider Surya Hodges MD Primary Care Provider Surya Hodges MD Primary Care Provider Kamaljit ROMERO Attending Unavailable Kamaljit ROMERO Attending Unavailable BRENT ROLAND Attending Unavailable BRENT ROLAND Attending Unavailable YESICA BECKER Attending Unavailable Saniya Mays APRN Primary Care Provider Brent Roland DO Attending Provider Kamaljit Romero MD Attending Provider Saniya Mays APRN Attending Provider Allergies Allergy Classification Reported Allergen(s) Allergy Type Date of Onset Reaction(s) Facility (20 sources) Azithromycin; Translations: [azithromycin] Drug Allergy 4 rash, Eruption of skin (disorder) [facility] (20 sources) whooping cough Propensity to adverse reactions 4 swelling injection site [facility] (15 sources) Bordetella pertussis filamentous hemagglutinin vaccine, inactivated / Bordetella pertussis fimbriae 2/3 vaccine, inactivated / Bordetella pertussis pertactin vaccine, inactivated / Bordetella pertussis toxoid vaccine, inactivated / diphtheria toxoid vaccine, inactivated / tetanus toxoid vaccine, inactivated; Translations: [diphtheria/pertu ssis, acel/tetanus adult] Drug Allergy 0 Unknown, Comment:amrit damon [facility] (20 sources) Clindamycin; Translations: [clindamycin] Drug Allergy 0 Rash [facility] Comment on above: Onset Date: 03/14/19 20 (2 sources) acellular pertussis vaccine, inactivated / diphtheria toxoid vaccine, inactivated / tetanus toxoid vaccine, inactivated Drug Allergy [facility] (2 sources) Clindamycin Drug Allergy [facility] (10 sources) vaccine adjuvant system, AS01B liposomal; Translations: [vaccine adjuvant system, AS01B liposomal] Allergy to substance 3 Rash [facility] (1 source) Clindamycin Drug Allergy 3 [facility] (13 sources) Cdbgdmd-Qtocol-We ell Pertussis Propensity to adverse reactions 3 Swelling [facility] Work Phone: (8 sources) diphtheria,pertus sis (acellular),te Allergy to substance 4 Comment:amrit e [facility] Comment on above: Onset Date: 03/14/19 20 (7 sources) Penicillins Allergy to substance 4 Hives [facility] (7 sources) Tetanus-Diphtheri a Toxoids Td Drug Allergy 5 Other [facility] Medications Current Medications Medication Drug Class(es) Dates Sig (Normalized) Sig (Original) acetaminophen 300 mg / codeine phosphate 30 mg oral tablet (3 sources) Opioid Agonist Start: 07-10-2024 End: 07-17-2024 take 1 tablet by mouth every six hours for pain acetaminophen-cod eine (Tylenol w/ Codeine #3) 300-30 MG tablet Indications: Pelvic pain Take 1 tablet by mouth every 6 (six) hours if needed for severe pain for up to 7 days 28 tablet 07/10/2024 07/17/2024 Active [id number] actuat albuterol 0.09 mg/actuat metered dose [...] a day for 10 day(s) Mar, Active black cohosh extract 20 mg oral tablet (10 sources) take 1 tablet by mouth once daily Black Cohosh 20 MG tablet Take 1 tablet by mouth Daily Active cefdinir 300 mg oral capsule (1 [...] the morning. 0 04/21/2023 Discontinued (Therapy completed) dicyclomine hydrochloride 10 mg oral capsule (11 sources) Anticholinergic Start: 07-03-2024 take 1 capsule by mouth three times daily as needed dicyclomine (Bentyl) 10 MG capsule Indications: Abdominal cramping Take 1 capsule (10 mg) by mouth 3 (three) times a day as needed (cramping) 30 capsule 1 07/03/2024 Active Ergocalciferol (10 sources) Provitamin D2 Compound take 1 tablet by mouth once daily Ergocalciferol (VITAMIN D2 PO) Take 1 tablet by mouth Daily Active estradiol 0.5 mg oral tablet (1 source) Estrogen Start: 01-13-2022 take 2 tablets by mouth once daily estradiol 0.5 mg Tab mg tab(s), Oral, Daily, Refills(s) 0 Start Date: 01/13/22 Status: Ordered Prozac (2 sources) Serotonin Reuptake Inhibitor Start: 01-13-2022 Prozac Oral, Daily, Refills(s) 0 Start Date: 01/13/22 Status: Ordered furosemide 20 mg oral tablet (20 sources) Loop Diuretic Start: 12-15-2023 End: 03-22-2024 take 1 tablet by mouth once daily Furosemide 20 mg tablet Active 0 .ROUTE .COMPLEX March 22, 2024 1:38pm TAKE 1 TABLET BY MOUTH EVERY DAY Complies with drug therapy Start: 07-11-2023 End: 12-15-2023 take 1 tablet by mouth once daily Furosemide 20 mg tablet Discontinued 20 MG PO Daily September 08, 2023 4:05pm December 15, 2023 9:06am ibuprofen 800 mg oral tablet (10 sources) Nonsteroidal Anti-inflammatory Drug Start: 07-10-2024 End: 10-08-2024 take 1 tablet by mouth every eight hours for pain ibuprofen 800 MG tablet Indications: Pelvic pain Take 1 tablet (800 mg) by mouth every 8 (eight) hours if needed for mild pain 60 tablet 1 07/10/2024 10/08/2024 Active levothyroxine sodium 0.137 mg oral capsule (20 sources) l-Thyroxine Start: 12-07-2022 take 1 tablet by mouth before mealtime levothyroxine (Synthroid, Levoxyl) 137 MCG tablet Take 137 mcg by mouth in the morning. Take before meals. 12/07/2022 Active Start: 12-01-2022 End: 05-31-2024 take 1 capsule by mouth once daily Levothyroxine 137 mcg capsule Active 137 MCG PO Daily 90 May 31, 2024 1:56pm Complies with drug therapy Start: 11-30-2022 End: 06-17-2023 take 1 tablet by mouth once daily Levothyroxine 175 mcg tablet Discontinued 175 MCG PO Daily November 30, 2022 12:00am June 17, 2023 2:15pm Start: 01-11-2022 Synthroid 150 mcg (0.15 mg) Tab Oral, Refills(s) 0 Start Date: 01/11/22 Status: Ordered take 1 tablet by tory th every twenty-four hours Synthroid 137 MCG 1 tablet Orally Once a day Active take 1 tablet by tory th every twenty-four hours Synthroid 175 MCG 1 tablet Orally Once a day Active liothyronine sodium 0.005 mg oral tablet (19 sources) l-Triiodothyronine Start: 06-17-2023 take 1 tablet by mouth once daily liothyronine (Cytomel) 5 MCG tablet Indications: Hypothyroidism, unspecified TAKE 1 TABLET BY MOUTH DAILY. 90 tablet 1 07/04/2024 Active take 1 tablet by tory every twenty-four hours Liothyronine Sodium 5 MCG 1 tablet once a day Active methenamine hippurate 1000 mg oral tablet (2 sources) take 1 tablet by mouth in the morning methenamine hippurate (Hiprex) 1 g tablet Take 1 g by mouth in the morning and 1 g before bedtime. Active 24 hr mirabegron 50 mg extended release oral tablet (2 sources) beta3-Adrenergic Agonist take 1 tablet by mouth at bedtime, then take 1 tablet by mouth every twenty-four hours mirabegron ER (Myrbetriq) 50 MG 24 hr tablet Take 50 mg by mouth at bedtime Do not crush, chew, or split. Active Mounjaro 2.5 mg/0.5 mL subcutaneous solution (2 sources) Start: 01-14-20 inject 1 mg by subcutaneous injection every week Mounjaro 2.5 mg/0.5 mL subcutaneous solution mg, SubCutaneous, qWeek, Refills(s) 0 Start Date: 01/13/22 Status: Ordered Zofran (1 source) Serotonin-3 Receptor Antagonist Start: 05-22-19 23 Zofran Refills(s) 0 Start Date: 05/21/22 Status: Ordered predniSONE 10 mg oral tablet (18 sources) Start: 09-06-19 take 0.5 tablet by mouth once daily Prednisone 10 mg tablet Active 10 MG PO daily September 05, 2024 12:00am Take 40 mg for 2 days, 30 mg for 2 days, 20 mg for 2 days, 10 mg for 2 days, 1/2 tablet for 2 days Complies with drug therapy Start: 12-19-2023 End: 02-15-2024 take 4 tablets by mouth once daily, then take 3 tablets by mouth once daily, then take 2 tablets by mouth once daily, then take 1 tablet by mouth once daily Prednisone 10 mg tablet Discontinued 10 MG PO As Directed December 19, 2023 12:00am February 15, 2024 2:02pm 4 daily x 2 days, 3 daily x 2 days, 2 daily x 2 days, 1 daily x 6 days Start: 05-04-2023 End: 06-17-2023 take 1 tablet by mouth twice daily Prednisone 20 mg tablet Discontinued 20 MG PO Twice daily May 04, 2023 1:00am June 17, 2023 2:15pm Start: 11-05-2022 predniSONE 10 MG 4 tabs [...] Active Start: 04-08-2021 take 1 tablet by [facility] every twelve hours predniSONE 20 MG 1 tablet Orally bid for 5 day(s) Mar, Active tamsulosin hydrochloride 0.4 mg oral capsule (2 sources) alpha-Adrenergic Janie take 1 capsule by mouth once daily tamsulosin (Flomax) 0.4 MG 24 hr capsule Take 0.4 mg by mouth Daily Active Tirzepatide-Weight Management (Zepbound) 2.5 MG/0.5ML solution auto-injector (2 sources) Start: End: inject 1 mL by subcutaneous injection every week Tirzepatide-Weig ht Management (Zepbound) 2.5 MG/0.5ML solution auto-injector Indications: [...] mL 1 04/06/2023 04/21/2023 Discontinued (Therapy completed) triamcinolone acetonide 1 mg/ml topical cream (14 sources) Corticosteroid Start: 09-05-2024 Triamcinolone Acetonide 0.1 % cream Active 1 APPLIC TOPICAL Twice daily September 05, 2024 12:00am Complies with drug therapy Start: 09-15-2022 Kenalog-40 Sep, 60 mg 24 hr venlafaxine 37.5 mg extended release [...] Orally Twice a day Not-Taking Effexor Active zolpidem tartrate 5 mg oral tablet (2 sources) gamma-Aminobutyric Acid-ergic Agonist Start: 08-14-2024 zolpidem (Ambien) 5 MG tablet Indications: Other insomnia Take 1 tablet (5 mg) by mouth as needed at bedtime for sleep for up to 20 doses 20 tablet 08/14/2024 Active Start: 08-14-2024 zolpidem (Ambi en) 5 MG tablet Indications: Other insomnia Take 1 tablet (5 mg) by mouth as needed at bedtime for sleep for up to 20 doses 20 tablet 08/14/2024 Active Completed/Discontinued Medications Medication Drug Class(es) Dates Sig (Normalized) Sig (Original) buPROPion hydrochloride 100 mg oral tablet (6 sources) Aminoketone Start: 12-08-2023 End: 02-15-2024 take 2 tablets by mouth twice daily Bupropion Hcl 100 mg tablet Discontinued 200 MG PO Twice daily 60 January 26, 2024 12:27pm February 15, 2024 2:07pm 12 hr buPROPion hydrochloride 90 mg / naltrexone hydrochloride 8 mg extended release oral tablet (10 sources) Opioid Antagonist, Aminoketone Start: 10-03-2023 End: 12-08-2023 take 2 tablets by mouth twice daily Naltrexone-Bupropi on (Contrave) 8-90 mg tablet extended release Discontinued 2 TAB PO Twice daily October 03, 2023 3:18pm December 08, 2023 8:13am busPIRone hydrochloride 5 mg oral tablet (6 sources) Start: 06-17-2023 End: 09-07-2023 take 1 tablet by mouth twice daily as needed for anxiety Buspirone 5 mg tablet Discontinued 5 MG PO Twice daily as needed for anxiety June 17, 2023 12:00am September 07, 2023 1:46pm cephalexin 500 mg oral capsule (8 sources) Cephalosporin Antibacterial Start: 05-04-2023 End: 06-17-2023 take 1 capsule by mouth every eight hours Cephalexin 500 mg capsule Discontinued 500 MG PO Every 8 hours 01 10May 04, 2023 1:00am June 17, 2023 2:15pm doxycycline monohydrate 100 mg oral tablet (5 sources) Tetracycline-class Drug Start: 02-15-2024 End: 05-16-2024 take 1 tablet by mouth twice daily Doxycycline Monohydrate 100 mg tablet Discontinued 100 MG PO Twice daily 31 12February 15, 2024 1:00am May 16, 2024 11:47am Start: 03-11-2023 take 1 capsule by [facility] every twelve hours Doxycycline Hyclate 100 MG 1 capsule Orally Twice a day for 5 days Feb, Active fluconazole 150 mg oral tablet (20 sources) Azole Antifungal Start: 02-15-2024 End: 05-16-2024 Fluconazole 150 mg tablet Discontinued 150 MG PO Q3D 2 February 15, 2024 1:00am March 5th, 2025 11:47am Take 1st dose at onset of symptoms then repeat in 3 days if continued symptoms Start: 05-04-2023 End: 06-17-2023 Fluconazole 150 mg tablet Di scontinued 150 MG PO Q3D May 04, 2023 1:00am June 17, 2023 2:15pm Start: 02-23-2023 End: 07-10-2024 take 1 tablet by mouth once fluconazole (Diflucan) 150 MG tablet Indications: Vaginal yeast infection TAKE 1 TABLET BY MOUTH ONE TIME FOR 1 DOSE 1 tablet 02/23/2023 07/10/2024 Discontinued Start: 03-16-2022 Diflucan 150 M G 1 tablet Orally x1 for 1 days Mar, Active 24 hr metFORMIN hydrochloride 500 mg extended release oral tablet (20 sources) Biguanide Start: 11-30-2022 End: 06-17-2023 take 1 tablet by mouth twice daily Metformin 500 mg tablet extended release 24 hr Discontinued 500 MG PO Twice daily 180 90 December 01, 2022 1:05pm June 17, 2023 2:15pm Start: 10-12-2022 End: 07-11-2025 take 1 tablet by mouth every twenty-four hours at bedtime Metformin 500 mg tablet extended release 24 hr Discontinued 500 MG PO Bedtime November 30, 2022 12:00am December 01, 2022 1:05pm methylPREDNISolone 4 mg oral tablet (20 sources) Corticosteroid Start: 08-27-2024 End: 09-05-2024 take 1 tablet by mouth once Methylprednisolone (Medrol (Chad)) 4 mg tablets,dose pack Discontinued 0 PO per package directions August 27, 2024 12:00am September 05, 2024 8:09am PO PER PKG DIR Start: 10-10-2023 End: 12-19-2023 take 1 tablet by mouth once Methylprednisolone (Medrol (Chad)) 4 mg tablets,dose pack Discontinued 0 PO per package directions 01 09December 02, 2023 11:05am December 19, 2023 11:01am PO PER PKG DIR Start: 11-05-2022 DEPO-Medrol [...] Active naltrexone hydrochloride 50 mg oral tablet (3 sources) Opioid Antagonist Start: 12-08-2023 End: 02-15-2024 take 1 tablet by mouth twice daily Naltrexone 50 mg tablet Discontinued 25 MG PO Twice daily December 08, 2023 12:00am February 15, 2024 2:07pm phentermine hydrochloride 37.5 mg oral tablet (20 sources) Sympathomimetic Amine Anorectic Start: 05-16-2024 End: 08-27-2024 take 1 tablet by mouth once daily 30 minutes after breakfast Phentermine (Adipex-P) 37.5 mg tablet Discontinued 37.5 MG PO Daily July 17, 2024 11:31am August 27, 2024 10:51am must administer 30 minutes before or 1-2 hours after breakfast Start: 02-15-2024 End: 05-16-2024 take 1 tablet by mouth once daily 30 minutes after breakfast Phentermine (Adipex-P) 37.5 mg tablet Discontinued 37.5 MG PO Daily March 15, 2024 12:48pm April 16, 2024 3:57pm must administer 30 minutes before or 1-2 hours after breakfast Start: 11-18-2022 take 1 tablet by tory once daily [...] a day for 30 days Sep, Active 24 hr propranolol hydrochloride 120 mg extended release oral capsule (20 sources) beta-Adrenergic Janie Start: 07-12-2023 End: 09-07-2023 take 1 capsule by mouth once daily Propranolol 120 mg capsule,extended release 24 hr Discontinued 120 MG PO Daily July 12, 2023 12:00am September 07, 2023 1:46pm Start: 12-01-2022 End: 04-21-2023 take 1 capsule by mouth every twenty-four hours in the morning propranolol LA (Inderal LA) 120 MG 24 hr capsule Take 120 mg by mouth in the morning. 0 12/01/2022 04/21/2023 Discontinued (Therapy completed) Start: 12-01-2022 End: 06-17-2023 take 1 capsule by mouth once daily Propranolol 120 mg capsule,extended release 24 hr Discontinued 120 MG PO Daily December 01, 2022 12:00am June 17, 2023 2:15pm Problems Active Problems Problem Classification Problem Date Documented Da te Episodic/Chronic Abdominal pain (14 sources) Pelvic and perineal pain; Translations: [Unspecified abdominal pain] Onset: 3 Episodic Acute bronchitis (3 sources) Acute bronchitis; Translations: [Acute bronchitis due to other specified organisms] Episodic Allergic reactions (14 sources) Unspecified contact dermatitis, unspecified cause; Translations: [Allergic contact dermatitis] Episodic Anxiety disorders (19 sources) Anxiety; Translations: [Anxiety disorder] 01-13-2022 Chronic Calculus of urinary tract (10 sources) Ureteric stone; Translations: [Calculus of ureter] Onset: 3 Episodic Cardiac dysrhythmias (1 source) Supraventricular tachycardia; Translations: [SUPRAVENTRICULAR TACHYCARDIA] Onset: 2 Chronic Cardiac dysrhythmias (17 sources) Tachycardia; Translations: [Tachycardia, unspecified] Onset: 4 11-30-2022 Episodic Comment on above: Problem List clean-u p per request of Phys. EHR Cmte Chronic obstructive pulmonary disease and bronchiectasis (5 sources) Bronchitis, not specified as acute or chronic; Translations: [Bronchitis] Episodic E Codes: Adverse effects of medical drugs (8 sources) Allergic reaction caused by antibacterial agent; [...] the genitourinary system] Episodic Headache; including migraine (12 sources) Migraine without aura, not refractory ; [...] Translations: [Emotional lability] Episodic Nonspecific chest pain (11 sources) Chest pain, unspecified; Translations: [Chest pain] Episodic Comment on above: Problem List clean-u p per request of Phys. EHR Cmte Nutritional deficiencies (3 sources) Vitamin D deficiency; Translations: [Vitamin D deficiency, unspecified] 05-16-2024 Chronic Nutritional deficiencies (7 sources) Iron deficiency; Translations: [Iron deficiency] Episodic Other aftercare (1 source) Other prison (current) drug therapy; Translations: [OTH [place] CURRENT DRUG THERAPY] Onset: 3 Episodic Other aftercare (3 sources) Long-term current use of drug therapy; Translations: [Other prison (current) drug therapy] Episodic Other aftercare (3 sources) History and physical examination, follow-up; Translations: [Encounter for follow-up examination after completed treatment for conditions other than malignant neoplasm] Episodic Other aftercare (4 sources) Surgical follow-up; Translations: [Encounter for follow-up examination after completed treatment for conditions other than malignant neoplasm] Onset: 5 08-14-2024 Episodic Other circulatory disease (7 sources) Elevated [...] specified noninflammatory disorders of vagina] Episodic Other female genital disorders (1 source) Ovarian pain; Translations: [Other specified conditions associated with female genital organs and menstrual cycle] 07-23-2024 Episodic Other gastrointestinal disorders (1 source) Peritoneal [...] source) Other abnormalities of breathing Episodic Other nervous system disorders (4 sources) Acute postoperative pain; Translations: [Other acute postprocedural pain] Onset: 5 08-14-2024 Episodic Other non-traumatic joint disorders (7 sources) Pain in left knee; Translations: [Left knee pain] 10-03-2023 Episodic Other nutritional; endocrine; and metabolic disorders (20 sources) Obesity; Translations: [Obesity, unspecified] Chronic Other nutritional; endocrine; and metabolic disorders (1 source) Obesity, unspecified; Translations: [OBESITY UNSPECIFIED] Onset: 3 Chronic Other nutritional; endocrine; and metabolic disorders (11 sources) Obese class I; Translations: [Body mass [...] allergic rhinitis] Chronic Other upper respiratory infections (7 sources) Chronic sinusitis; Translations: [Chronic sinusitis, unspecified] 02-15-2024 Chronic Other upper respiratory infections (20 sources) Acute upper respiratory infection, unspecified; Translations: [Acute upper respiratory infection] Onset: 3 Resolved: 2 Episodic Ovarian cyst (6 sources) Unspecified ovarian cyst, left side; Translations: [Unspecified ovarian cyst, unspecified side] Onset: 3 Episodic Residual codes; unclassified (2 sources) Insomnia; Translations: [Other insomnia] 08-14-2024 Chronic Residual codes; unclassified (1 source) Acquired absence [...] ankle] Onset: 7 Episodic Superficial injury; contusion (6 sources) Nonvenomous insect bite of thigh without infection; Translations: [Insect bite (nonvenomous), right thigh, initial encounter] Onset: 7 12-07-2023 Episodic Thyroid disorders (20 sources) Hypothyroidism; Translations: [Hypothyroidism, unspecified] Onset: 2 01-11-2022 Chronic Thyroid disorders (7 sources) Disorder of thyroid gland; Translations: [Disorder [...] Range Facility Basophils Auto (Bld) [#/Vol] on 08-23-2024 Basophils (Bld) [#/Vol] 0.0 10 3/uL 0.0-0.1 [facility] Basophils/100 WBC Auto (Bld) on 08-23-2024 Basophils/100 WBC (Bld) 0.6 % 0.2-2.0 [facility] Eosinophils/100 WBC Auto (Bl d)on 08-23-2024 Eosinophils/100 WBC (Bld) 3.0 % 0.9-7.0 [facility] Erythrocyte distribution wid th Auto (RBC) [Ratio]on 08-23-2024 Erythrocyte distribution width (RBC) [Ratio] 13.2 % 11.0-15.0 [facility] Estimated glomerular filtrat ion rate (GFR) non- Americanon 08-23-2024 GFR/1.73 sq M.predicted among non-blacks MDRD (S/P/Bld) [Vol rate/Area] mL/min/{1.73_m2} >=60 mL/min/1.7 3m 2 [facility] Hematocrit Auto (Bld) [Volum e fraction]on 08-23-2024 Hematocrit (Bld) [Volume fraction] 39.6 % 36.0-48.0 [facility] Hemoglobin [Mass/volume] in Bloodon 08-23-2024 Hemoglobin (Bld) [Mass/Vol] 12.9 g/dL 12.0-16.0 [facility] Laboratory - Chemistry and C hemistry - challengeon 08-23-2024 Calcium [Mass/Vol] 9.0 mg/dL 8.5-10.1 [facility] Chloride [Moles/Vol] 104 mmol/L 98-107 [facility] CO2 [Moles/Vol] 26.7 mmol/L 21.0-32.0 [facility] Creatinine [Mass/Vol] 0.82 mg/dL 0.55-1.02 [facility] GFR/1.73 sq M.predicted MDRD (S/P/Bld) [Vol rate/Area] mL/min/{1.73_m2} >=60 mL/min/1.7 3m 2 [facility] Glucose [Mass/Vol] 94 mg/dL 74-106 [facility] Potassium [Moles/Vol] 3.9 mmol/L 3.5-5.1 [facility] Sodium [Moles/Vol] 139 mmol/L 136-145 [facility] Urea nitrogen [Mass/Vol] 9.0 mg/dL 7.0-18.0 [facility] Urea nitrogen/Creatinine [Mass ratio] 11.0 mg/mg [facility] Laboratory - Hematology and Cell countson 08-23-2024 Immature granulocytes/100 WBC (Bld) 0.1 % 0.0-0.5 [facility] Leukocytes [#/volume] correc jocelynn for nucleated erythrocytes in Blood by Automated counon 08-23-2024 WBC corrected for nucl RBC Auto (Bld) [#/Vol] 6.7 10 3/uL 4.0-11.0 [facility] Lymphocytes Auto (Bld) [#/Vo l]on 08-23-2024 Lymphocytes (Bld) [#/Vol] 2.4 10 3/uL 1.2-3.8 [facility] Lymphocytes/100 WBC Auto (Bl d)on 08-23-2024 Lymphocytes/100 WBC (Bld) 34.9 % 20.5-60.0 [facility] MCH Auto (RBC) [Entitic mass ]on 08-23-2024 MCH (RBC) [Entitic mass] 26.2 pg Low 26.7-34.0 [facility] MCHC Auto (RBC) [Mass/Vol]on 08-23-2024 MCHC (RBC) [Mass/Vol] 32.6 g/dL 29.9-35.2 [facility] MCV Auto (RBC) [Entitic vol] on 08-23-2024 MCV (RBC) [Entitic vol] 80.5 fL Low 81.0-99.0 [facility] Monocytes Auto (Bld) [#/Vol] on 08-23-2024 Monocytes (Bld) [#/Vol] 0.3 10 3/uL 0.3-0.8 [facility] Monocytes/100 WBC Auto (Bld) on 08-23-2024 Monocytes/100 WBC (Bld) 4.9 % 1.7-12.0 [facility] Neutrophils Auto (Bld) [#/Vo l]on 08-23-2024 Neutrophils (Bld) [#/Vol] 3.8 10 3/uL 1.4-6.5 [facility] Neutrophils/100 WBC Auto (Bl d)on 08-23-2024 Neutrophils/100 WBC (Bld) 56.5 % 43.0-75.0 [facility] No Panel Informationon 08-23 Eosinophils # (Auto) 0.2 10 3/uL 0.0-0.7 [facility] Immature Granulocyte # (Auto) 0.01 10 3/uL 0.00-0.03 [facility] Platelet mean volume Auto (B ld) [Entitic vol]on 08-23-2024 Platelet mean volume (Bld) [Entitic vol] 8.9 fL Low 9.5-13.5 [facility] Platelets Auto (Bld) [#/Vol] on 08-23-2024 Platelets (Bld) [#/Vol] 398 10 3/uL 150-450 [facility] RBC Auto (Bld) [#/Vol]on RBC (Bld) [#/Vol] 4.92 10 6/uL 4.20-5.40 [facility] Serum or plasma anion gap de terminationon 08-23-2024 Anion gap [Moles/Vol] 12.2 mmol/L [facility] Basophils Auto (Bld) [#/Vol] on 08-02-2024 Basophils (Bld) [#/Vol] 0.1 10 3/uL 0.0-0.1 [facility] Basophils/100 WBC Auto (Bld) on 08-02-2024 Basophils/100 WBC (Bld) 0.6 % 0.2-2.0 [facility] Eosinophils/100 WBC Auto (Bl d)on 08-02-2024 Eosinophils/100 WBC (Bld) 1.6 % 0.9-7.0 [facility] Erythrocyte distribution wid th Auto (RBC) [Ratio]on 08-02-2024 Erythrocyte distribution width (RBC) [Ratio] 13.1 % 11.0-15.0 [facility] Hematocrit Auto (Bld) [Volum e fraction]on 08-02-2024 Hematocrit (Bld) [Volume fraction] 43.7 % 36.0-48.0 [facility] Hemoglobin [Mass/volume] in Bloodon 08-02-2024 Hemoglobin (Bld) [Mass/Vol] 14.1 g/dL 12.0-16.0 [facility] Laboratory - Hematology and Cell countson 08-02-2024 Immature granulocytes/100 WBC (Bld) 0.2 % 0.0-0.5 [facility] Leukocytes [#/volume] correc jocelynn for nucleated erythrocytes in Blood by Automated counon 08-02-2024 WBC corrected for nucl RBC Auto (Bld) [#/Vol] 9.0 10 3/uL 4.0-11.0 [facility] Lymphocytes Auto (Bld) [#/Vo l]on 08-02-2024 Lymphocytes (Bld) [#/Vol] 3.0 10 3/uL 1.2-3.8 [facility] Lymphocytes/100 WBC Auto (Bl d)on 08-02-2024 Lymphocytes/100 WBC (Bld) 33.4 % 20.5-60.0 [facility] MCH Auto (RBC) [Entitic mass ]on 08-02-2024 MCH (RBC) [Entitic mass] 26.7 pg 26.7-34.0 [facility] MCHC Auto (RBC) [Mass/Vol]on 08-02-2024 MCHC (RBC) [Mass/Vol] 32.3 g/dL 29.9-35.2 [facility] MCV Auto (RBC) [Entitic vol] on 08-02-2024 MCV (RBC) [Entitic vol] 82.8 fL 81.0-99.0 [facility] Monocytes Auto (Bld) [#/Vol] on 08-02-2024 Monocytes (Bld) [#/Vol] 0.5 10 3/uL 0.3-0.8 [facility] Monocytes/100 WBC Auto (Bld) on 08-02-2024 Monocytes/100 WBC (Bld) 5.4 % 1.7-12.0 [facility] Neutrophils Auto (Bld) [#/Vo l]on 08-02-2024 Neutrophils (Bld) [#/Vol] 5.3 10 3/uL 1.4-6.5 [facility] Neutrophils/100 WBC Auto (Bl d)on 08-02-2024 Neutrophils/100 WBC (Bld) 58.8 % 43.0-75.0 [facility] No Panel Informationon 08-02 Eosinophils # (Auto) 0.1 10 3/uL 0.0-0.7 [facility] Immature Granulocyte # (Auto) 0.02 10 3/uL 0.00-0.03 [facility] Platelet mean volume Auto (B ld) [Entitic vol]on 08-02-2024 Platelet mean volume (Bld) [Entitic vol] 8.9 fL Low 9.5-13.5 [facility] Platelets Auto (Bld) [#/Vol] on 08-02-2024 Platelets (Bld) [#/Vol] 369 10 3/uL 150-450 [facility] RBC Auto (Bld) [#/Vol]on RBC (Bld) [#/Vol] 5.28 10 6/uL 4.20-5.40 [facility] ALL CBC WITH AUTO DIFFon BASOPHILS ABSOLUTE AUTO 0.1 [facility] Basophils/100 WBC (Bld) 0.6 % 0.2 - 2.0 % [facility] Eosinophils/100 WBC (Bld) 1.8 % 0.9 - 7.0 % [facility] Erythrocyte distribution width (RBC) [Ratio] 13.2 % 11.0 - 15.0 % [facility] Hematocrit (Bld) [Volume fraction] 40.5 % 36.0 - 48.0 % [facility] Hemoglobin (Bld) [Mass/Vol] 13.1 g/dL 12.0 - 16.0 g/dL [facility] IMMATURE GRANULOCYTES ABS AUTO 0.02 [facility] Immature granulocytes/100 WBC (Bld) 0.2 % 0.0 - 0.5 % [facility] Interpretation and review of laboratory results Abnormal [facility] LYMPHOCYTES ABSOLUTE AUTO 2.7 [facility] Lymphocytes/100 WBC (Bld) 30.8 % 20.5 - 60.0 % [facility] MCH (RBC) [Entitic mass] 26.6 pg Low 26.7 - 34.0 pg [facility] MCHC (RBC) [Mass/Vol] 32.3 g/dL 29.9 - 35.2 g/dL [facility] MCV (RBC) [Entitic vol] 82.3 fL 81.0 - 99.0 fL [facility] MONOCYTES ABSOLUTE AUTO 0.6 [facility] Monocytes/100 WBC (Bld) 6.6 % 1.7 - 12.0 % [facility] NEUTROPHILS ABSOLUTE AUTO 5.3 [facility] Neutrophils/100 WBC (Bld) 60 % 43.0 - 75.0 % [facility] Platelet mean volume (Bld) [Entitic vol] 9.1 fL Low 9.5 - 13.5 fL [facility]H EO # 0.2 [facility] PLT 380 [facility] TB RBC 4.92 [facility] WBC 8.8 [facility] Basophils Auto (Bld) [#/Vol] on 07-23-2024 Basophils (Bld) [#/Vol] 0.1 10 3/uL 0.0-0.1 [facility] Basophils/100 WBC Auto (Bld) on 07-23-2024 Basophils/100 WBC (Bld) 0.6 % 0.2-2.0 [facility] ECG 12-LEADon 07-23-2024 [place] [address] Electrocardiograph Report Signed Patient: KARLENE VAZQUEZ MR#: [id number] : 1990 Acct:[id number] Age/Sex: 34 / F ADM Date: 07/23/24 Loc: [facility] Attending Dr: Brent Roland D.O. Ordering Physician: Brent Roland D.O. 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 Measurements Intervals [place] Rate: 71 P: 33 NH: 148 QRS: 42 QRSD: 82 T: 30 QT: 389 QTc: 424 Interpretive Statements SINUS RHYTHM POSSIBLE RIGHT VENTRICULAR CONDUCTION DELAY [RSR (QR) IN V1/V2] Borderline ECG Compared to ECG 05/02/2023 11:46:38 Sinus tachycardia no longer present Right-axis deviation no longer present Electronically Signed On 07-23-2024 11:53:48 EDT by CHUY SHABAZZ M.D. Dictated By: CHUY SHABAZZ Signed By: 07/23/24 1154 DD/ 1129 TD/TT: Structural Shop Helper: [facility] RadiologyDemetri MD - 07/23/2024 [place] [address] Electrocardiograph Report Signed Patient: KARLENE VAZQUEZ MR#: [id number] : 1990 Acct:[id number] Age/Sex: 34 / F ADM Date: 07/23/24 Loc: PST Attending Dr: Brent Roland D.O. Ordering Physician: Brent Roland D.O. Date of Service: 07/23/24 Procedure(s): ECG 12 lead Accession Number(s): [id number] cc: 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 Measurements Intervals [place] Rate: 71 P: 33 NH: 148 QRS: 42 QRSD: 82 T: 30 QT: 389 QTc: 424 Interpretive Statements SINUS RHYTHM POSSIBLE RIGHT VENTRICULAR CONDUCTION DELAY [RSR (QR) IN V1/V2] Borderline ECG Compared to ECG 05/02/2023 11:46:38 Sinus tachycardia no longer present Right-axis deviation no longer present Electronically Signed On 07-23-2024 11:53:48 EDT by CHUY SHABAZZ M.D. Dictated By: CHUY SHABAZZ Signed By: 07/23/24 1154 DD/ 1129 TD/TT: Structural Shop Helper: [facility] Radiology Study observation (narrative) [facility] ECG 12-LEADOrdered By: Radio logist Radiology on 07-23-2024 [facility] [employer] Work Phone: Eosinophils/100 WBC Auto (Bl d)on 07-23-2024 Eosinophils/100 WBC (Bld) 1.8 % 0.9-7.0 [facility] Erythrocyte distribution wid th Auto (RBC) [Ratio]on 07-23-2024 Erythrocyte distribution width (RBC) [Ratio] 13.2 % 11.0-15.0 [facility] Estimated glomerular filtrat ion rate (GFR) non- Americanon 07-23-2024 GFR/1.73 sq M.predicted among non-blacks MDRD (S/P/Bld) [Vol rate/Area] mL/min/{1.73_m2} >=60 mL/min/1.7 3m 2 [facility] Globulin Calc (S) [Mass/Vol] on 07-23-2024 Globulin (S) [Mass/Vol] 3.6 g/dL [facility] Hematocrit Auto (Bld) [Volum e fraction]on 07-23-2024 Hematocrit (Bld) [Volume fraction] 40.5 % 36.0-48.0 [facility] Hemoglobin [Mass/volume] in Bloodon 07-23-2024 Hemoglobin (Bld) [Mass/Vol] 13.1 g/dL 12.0-16.0 [facility] Laboratory - Chemistry and C hemistry - challengeon 07-23-2024 Albumin [Mass/Vol] 3.5 g/dL 3.4-5.0 [facility] ALP [Catalytic activity/Vol] 70 U/L 46-116 [facility] ALT [Catalytic activity/Vol] 37 U/L 14-59 [facility] AST [Catalytic activity/Vol] 15 U/L 15-37 [facility] Bilirubin [Mass/Vol] 0.3 mg/dL 0.2-1.0 [facility] Calcium [Mass/Vol] 8.6 mg/dL 8.5-10.1 [facility] Chloride [Moles/Vol] 105 mmol/L 98-107 [facility] CO2 [Moles/Vol] 26.9 mmol/L 21.0-32.0 [facility] Creatinine [Mass/Vol] 0.83 mg/dL 0.55-1.02 [facility] GFR/1.73 sq M.predicted MDRD (S/P/Bld) [Vol rate/Area] mL/min/{1.73_m2} >=60 mL/min/1.7 3m 2 [facility] Glucose [Mass/Vol] 88 mg/dL 74-106 [facility] Potassium [Moles/Vol] 4.3 mmol/L 3.5-5.1 [facility] Protein [Mass/Vol] 7.1 g/dL 6.4-8.2 [facility] Sodium [Moles/Vol] 138 mmol/L 136-145 [facility] Urea nitrogen [Mass/Vol] 14.0 mg/dL 7.0-18.0 [facility] Urea nitrogen/Creatinine [Mass ratio] 16.9 mg/mg [facility] Laboratory - Hematology and Cell countson 07-23-2024 Immature granulocytes/100 WBC (Bld) 0.2 % 0.0-0.5 [facility] Leukocytes [#/volume] correc jocelynn for nucleated erythrocytes in Blood by Automated counon 07-23-2024 WBC corrected for nucl RBC Auto (Bld) [#/Vol] 8.8 10 3/uL 4.0-11.0 [facility] Lymphocytes Auto (Bld) [#/Vo l]on 07-23-2024 Lymphocytes (Bld) [#/Vol] 2.7 10 3/uL 1.2-3.8 [facility] Lymphocytes/100 WBC Auto (Bl d)on 07-23-2024 Lymphocytes/100 WBC (Bld) 30.8 % 20.5-60.0 [facility] MCH Auto (RBC) [Entitic mass ]on 07-23-2024 MCH (RBC) [Entitic mass] 26.6 pg Low 26.7-34.0 [facility] MCHC Auto (RBC) [Mass/Vol]on 07-23-2024 MCHC (RBC) [Mass/Vol] 32.3 g/dL 29.9-35.2 [facility] MCV Auto (RBC) [Entitic vol] on 07-23-2024 MCV (RBC) [Entitic vol] 82.3 fL 81.0-99.0 [facility] Monocytes Auto (Bld) [#/Vol] on 07-23-2024 Monocytes (Bld) [#/Vol] 0.6 10 3/uL 0.3-0.8 [facility] Monocytes/100 WBC Auto (Bld) on 07-23-2024 Monocytes/100 WBC (Bld) 6.6 % 1.7-12.0 [facility] Neutrophils Auto (Bld) [#/Vo l]on 07-23-2024 Neutrophils (Bld) [#/Vol] 5.3 10 3/uL 1.4-6.5 [facility] Neutrophils/100 WBC Auto (Bl d)on 07-23-2024 Neutrophils/100 WBC (Bld) 60.0 % 43.0-75.0 [facility] No Panel Informationon 07-23 Eosinophils # (Auto) 0.2 10 3/uL 0.0-0.7 [facility] Immature Granulocyte # (Auto) 0.02 10 3/uL 0.00-0.03 [facility] Platelet mean volume Auto (B ld) [Entitic vol]on 07-23-2024 Platelet mean volume (Bld) [Entitic vol] 9.1 fL Low 9.5-13.5 [facility] Platelets Auto (Bld) [#/Vol] on 07-23-2024 Platelets (Bld) [#/Vol] 380 10 3/uL 150-450 [facility] RBC Auto (Bld) [#/Vol]on RBC (Bld) [#/Vol] 4.92 10 6/uL 4.20-5.40 [facility] Serum or plasma albumin/glob ulin mass ratioon 07-23-2024 Albumin/Globulin [Mass ratio] 1.0 {ratio} [facility] Serum or plasma anion gap de terminationon 07-23-2024 Anion gap [Moles/Vol] 10.4 mmol/L [facility] RECURRENT VAGINITIS (HTRX)on 07-11-2024 ATOPOBIUM VAGINAE 30.718 Abnormal [facility] ATOPOBIUM VAGINAE Detected Abnormal [facility] BVAB 2,3 (BACTERIAL VAGINOSIS ASSOCIATED BACTERIA 2, 3); MOBILUNCUS SPP 0 [facility] BVAB 2,3 (BACTERIAL VAGINOSIS ASSOCIATED BACTERIA 2, 3); MOBILUNCUS SPP Not detected [facility] DARIA ALBICANS, PARAPSILOSIS, TROPICALIS 0 [facility] DARIA ALBICANS, PARAPSILOSIS, TROPICALIS Not detected [facility] Healthcare DARIA GLABRATA 0 [facility] DARIA GLABRATA Not detected [facility] DARIA KRUSEI 0 [facility] DARIA KRUSEI Not detected [facility] CHLAMYDIA TRACHOMATIS 0 [facility] Healthcare CHLAMYDIA TRACHOMATIS Not detected [facility] GARDNERELLA VAGINALIS 0 [facility] S Healthcare GARDNERELLA VAGINALIS Not detected [facility] Interpretation and review of laboratory results Abnormal [facility] MEGASPHAERA (TYPES 1, 2) 0 [facility] MEGASPHAERA (TYPES 1, 2) Not detected [facility] MYCOPLASMA GENITALIUM 0 [facility] MYCOPLASMA GENITALIUM [facility] NEISSERIA GONORRHOEAE 0 [facility] S [facility] NEISSERIA GONORRHOEAE Not detected N [facility] TRICHOMONAS VAGINALIS 0 [facility] S [facility] TRICHOMONAS VAGINALIS Not detected N [facility] Urinalysis macro (dipstick) panel (U)on 07-10-2024 Bilirubin, UA Negative Negative - 4(70) +++ mg/dL [facility] Blood, UA Negative Negative - 50 Arnulfo/mcL [facility] Clarity, UA Clear [facility] Color, UA Yellow [facility] Glucose, UA Negative Negative - 1999(110) ++++ mg/dL [facility] Interpretation and review of laboratory results Normal [facility] Ketones, UA Negative Negative - 160(16) ++++ mg/dL [facility] Leukocytes, UA Negative Negative - 500+++ Corrina/mcL [facility] Nitrite, UA Negative Negative - Positive [facility] pH, UA 7 5 - 9 [facility] Protein, UA Negative Negative - 1999(20) ++++ mg/dL [facility] Spec Grav, UA 1.025 1 - 1.03 [facility] Urobilinogen, UA 0.2 0.2 - 12 mg/dL [facility] US PELVIS W/ TRANSVAGINALon 07-03-2024 [place] [address] Ultrasound Report Signed Patient: KARLENE VAZQUEZ MR#: [id number] : 1990 Acct:[id number] Age/Sex: 34 / F ADM Date: 07/03/24 Loc: US Attending Dr: Brent Roland D.O. Ordering Physician: Brent Roland D.O. Date of Service: 07/03/24 Procedure(s): US pelvis w/ transvaginal Accession Number(s): [id number] cc: Surya Hodges M.D.; Brent Roland D.O. [address] [address] Patient Name: KARLENE VAZQUEZ MRN: [facility]:[id number] date: 1990 Sex: F Assigned Patient Location: US Current Patient Location: US Accession/Order Number: [id number] Exam Date: 07/03/2024 09:28 Report Date: 07/03/2024 09:30 At the request of: BRENT ROLAND DO Procedure: US pelvis w/ transvaginal [...] Jovan Martin M.D.07/03/2024 9:30 AM Dictation Location: [place] [address] Electronically authenticated by: [id number] Y Date: 07/03/2024 09:30 Dictated By: Jovan Martin D.O. Signed By: 07/03/2433 DD/ 9 TD/TT: Structural Shop Helper: [facility] Radiology, Radiologclaudio andrew MD - 07/03/2024 [place] [address] Ultrasound Report Signed Patient: KARLENE VAZQUEZ MR#: [id number] : 1990 Acct:[id number] Age/Sex: 34 / F ADM Date: 07/03/24 Loc: US Attending Dr: Brent Roland D.O. Ordering Physician: Brent Roland D.O. Date of Service: 07/03/24 Procedure(s): US pelvis w/ transvaginal Accession Number(s): [id number] cc: Surya Hodges M.D.; Brent Roland D.O. [address] [address] Patient Name: KARLENE VAZQUEZ MRN: [id number] date: 1990 Sex: F Assigned Patient Location: US Current Patient Location: US Accession/Order Number: [id number] Exam Date: 07/03/2024 09:28 Report Date: 07/03/2024 09:30 At the request of: BRENT ROLAND DO Procedure: US pelvis w/ transvaginal [...] Jovan Martin M.D.07/03/2024 9:30 AM Dictation Location: [place] [address] Electronically authenticated by: [id number] Y Date: 07/03/2024 09:30 Dictated By: Jovan Martin D.O. Signed By: 07/03/24 0933 DD/ TD/TT: Structural Shop Helper: [facility] Radiology Study observation (narrative) [facility] US PELVIS W/ TRANSVAGINALOrd ered By: Radiologist Radiology on 07-03-2024 [facility] Work Phone: Basophils Auto (Bld) [#/Vol] on 09-07-2023 Basophils (Bld) [#/Vol] 0.0 10 3/uL 0.0-0.1 [facility] Basophils/100 WBC Auto (Bld) on 09-07-2023 Basophils/100 WBC (Bld) 0.5 % 0.2-2.0 [facility] Cholesterol in LDL Calc [Mas s/Vol]on 09-07-2023 Cholesterol in LDL [Mass/Vol] 149.0 mg/dL [facility] Comment on above: <100 mg/dl [id number] 0-129 mg/dl NEAR OR ABOVE [id number] mg/dl BORDERLINE [id number] mg/dl HIGH>190 mg/dl VERY HIGH Cholesterol in VLDL Calc [Ma ss/Vol]on 09-07-2023 Cholesterol in VLDL [Mass/Vol] 20.4 mg/dL [facility] Eosinophils/100 WBC Auto (Bl d)on 09-07-2023 Eosinophils/100 WBC (Bld) 1.6 % 0.9-7.0 [facility] Erythrocyte distribution wid th Auto (RBC) [Ratio]on 09-07-2023 Erythrocyte distribution width (RBC) [Ratio] 13.2 % 11.0-15.0 [facility] Estimated glomerular filtrat ion rate (GFR) non- Americanon 09-07-2023 GFR/1.73 sq M.predicted among non-blacks MDRD (S/P/Bld) [Vol rate/Area] mL/min/{1.73_m2} >=60 [facility] Globulin Calc (S) [Mass/Vol] on 09-07-2023 Globulin (S) [Mass/Vol] 3.8 g/dL [facility] Hematocrit Auto (Bld) [Volum e fraction]on 09-07-2023 Hematocrit (Bld) [Volume fraction] 41.8 % 36.0-48.0 [facility] Hemoglobin [Mass/volume] in Bloodon 09-07-2023 Hemoglobin (Bld) [Mass/Vol] 13.3 g/dL 12.0-16.0 [facility] Laboratory - Chemistry and C hemistry - challengeon 09-07-2023 Albumin [Mass/Vol] 3.9 g/dL 3.4-5.0 [facility] ALP [Catalytic activity/Vol] 70 U/L 46-116 [facility] ALT [Catalytic activity/Vol] 20 U/L 14-59 [facility] AST [Catalytic activity/Vol] 12 U/L Low 15-37 [facility] Bilirubin [Mass/Vol] 0.6 mg/dL 0.2-1.0 [facility] Calcium [Mass/Vol] 8.7 mg/dL 8.5-10.1 [facility] Chloride [Moles/Vol] 102 mmol/L 98-107 [facility] Cholesterol [Mass/Vol] 226 mg/dL High <=200 [facility] Cholesterol in HDL [Mass/Vol] 57 mg/dL 40-60 [facility] Comment on above: > or =60 mg/dl - LOW CARDIOVASCULAR RISK<40 mg/dl - HIGH CARDIOVASCULAR RISK CO2 [Moles/Vol] 27.2 mmol/L 21.0-32.0 [facility] Creatinine [Mass/Vol] 0.86 mg/dL 0.55-1.02 [facility] GFR/1.73 sq M.predicted MDRD (S/P/Bld) [Vol rate/Area] mL/min/{1.73_m2} >=60 [facility] Glucose [Mass/Vol] 89 mg/dL 74-106 [facility] Potassium [Moles/Vol] 4.0 mmol/L 3.5-5.1 [facility] Protein [Mass/Vol] 7.7 g/dL 6.4-8.2 [facility] Sodium [Moles/Vol] 139 mmol/L 136-145 [facility] Triglyceride [Mass/Vol] 102 mg/dL <=150 [facility] Urea nitrogen [Mass/Vol] 9.0 mg/dL 7.0-18.0 [facility] Urea nitrogen/Creatinine [Mass ratio] 10.5 mg/mg [facility] Laboratory - Hematology and Cell countson 09-07-2023 Immature granulocytes/100 WBC (Bld) 0.2 % 0.0-0.5 [facility] Leukocytes [#/volume] correc jocelynn for nucleated erythrocytes in Blood by Automated counon 09-07-2023 WBC corrected for nucl RBC Auto (Bld) [#/Vol] 8.0 10 3/uL 4.0-11.0 [facility] Lymphocytes Auto (Bld) [#/Vo l]on 09-07-2023 Lymphocytes (Bld) [#/Vol] 2.4 10 3/uL 1.2-3.8 [facility] Lymphocytes/100 WBC Auto (Bl d)on 09-07-2023 Lymphocytes/100 WBC (Bld) 29.7 % 20.5-60.0 [facility] MCH Auto (RBC) [Entitic mass ]on 09-07-2023 MCH (RBC) [Entitic mass] 26.3 pg Low 26.7-34.0 [facility] MCHC Auto (RBC) [Mass/Vol]on 09-07-2023 MCHC (RBC) [Mass/Vol] 31.8 g/dL 29.9-35.2 [facility] MCV Auto (RBC) [Entitic vol] on 09-07-2023 MCV (RBC) [Entitic vol] 82.6 fL 81.0-99.0 [facility] Monocytes Auto (Bld) [#/Vol] on 09-07-2023 Monocytes (Bld) [#/Vol] 0.4 10 3/uL 0.3-0.8 [facility] Monocytes/100 WBC Auto (Bld) on 09-07-2023 Monocytes/100 WBC (Bld) 5.5 % 1.7-12.0 [facility] Neutrophils Auto (Bld) [#/Vo l]on 09-07-2023 Neutrophils (Bld) [#/Vol] 5.0 10 3/uL 1.4-6.5 [facility] Neutrophils/100 WBC Auto (Bl d)on 09-07-2023 Neutrophils/100 WBC (Bld) 62.5 % 43.0-75.0 [facility] No Panel Informationon 09-06 Eosinophils # (Auto) 0.1 10 3/uL 0.0-0.7 [facility] Immature Granulocyte # (Auto) 0.02 10 3/uL 0.00-0.03 [facility] Platelet mean volume Auto (B ld) [Entitic vol]on 09-07-2023 Platelet mean volume (Bld) [Entitic vol] 9.4 fL Low 9.5-13.5 [facility] Platelets Auto (Bld) [#/Vol] on 09-07-2023 Platelets (Bld) [#/Vol] 381 10 3/uL 150-450 [facility] RBC Auto (Bld) [#/Vol]on RBC (Bld) [#/Vol] 5.06 10 6/uL 4.20-5.40 [facility] Serum or plasma albumin/glob ulin mass ratioon 09-07-2023 Albumin/Globulin [Mass ratio] 1.0 {ratio} [facility] Serum or plasma anion gap de terminationon 09-07-2023 Anion gap [Moles/Vol] 13.8 mmol/L [facility] Serum or plasma total choles terol/high density lipoprotein (HDL) cholesterol mass linwood 09-07-2023 Cholesterol.total/Chol esterol in HDL [Mass ratio] 4.0 {ratio} [facility] Comment on above: 3.3 - 4.4 LOW RISK4. 4 - 7.1 AVERAGE RISK7.1 - 11.0 MODERATE RISK>11.0 HIGH RISK Basophils Auto (Bld) [#/Vol] on 05-02-2023 Basophils (Bld) [#/Vol] 0.1 10 3/uL 0.0-0.1 [facility] Basophils/100 WBC Auto (Bld) on 05-02-2023 Basophils/100 WBC (Bld) 0.4 % 0.2-2.0 [facility] Eosinophils/100 WBC Auto (Bl d)on 05-02-2023 Eosinophils/100 WBC (Bld) 0.1 % 0.9-7.0 [facility] Erythrocyte distribution wid th Auto (RBC) [Ratio]on 05-02-2023 Erythrocyte distribution width (RBC) [Ratio] 13.1 % 11.0-15.0 [facility] Estimated glomerular filtrat ion rate (GFR) non- Americanon 05-02-2023 GFR/1.73 sq M.predicted among non-blacks MDRD (S/P/Bld) [Vol rate/Area] mL/min/{1.73_m2} >=60 [facility] Hematocrit Auto (Bld) [Volum e fraction]on 05-02-2023 Hematocrit (Bld) [Volume fraction] 41.6 % 36.0-48.0 [facility] Hemoglobin [Mass/volume] in Bloodon 05-02-2023 Hemoglobin (Bld) [Mass/Vol] 13.6 g/dL 12.0-16.0 [facility] - Chemistry and C hemistry - challengeon 05-02-2023 Calcium [Mass/Vol] 8.7 mg/dL 8.5-10.1 [facility] Chloride [Moles/Vol] 101 mmol/L 98-107 [facility] CO2 [Moles/Vol] 24.8 mmol/L 21.0-32.0 [facility] Creatinine [Mass/Vol] 0.89 mg/dL 0.55-1.02 [facility] GFR/1.73 sq M.predicted MDRD (S/P/Bld) [Vol rate/Area] mL/min/{1.73_m2} >=60 [facility] Glucose [Mass/Vol] 112 mg/dL 74-106 [facility] Potassium [Moles/Vol] 4.0 mmol/L 3.5-5.1 [facility] Sodium [Moles/Vol] 137 mmol/L 136-145 [facility] Urea nitrogen [Mass/Vol] 5.0 mg/dL 7.0-18.0 [facility] Urea nitrogen/Creatinine [Mass ratio] 5.6 mg/mg [facility] - Hematology and Cell countson 05-02-2023 Immature granulocytes/100 WBC (Bld) 0.3 % 0.0-0.5 [facility] - Microbiology an d Antimicrobial susceptibilityon 05-02-2023 S. pyogenes Ag Ql (Unsp spec) Positive [facility] SARS-CoV-2 (COVID-19) RNA LEO+probe Ql (Unsp spec) Negative NEGATIVE [facility] Comment on above: This test has not [...] Auto (Bld) [#/Vol] 12.4 10 3/uL 4.0-11.0 [facility] Lymphocytes Auto (Bld) [#/Vo l]on 05-02-2023 Lymphocytes (Bld) [#/Vol] 1.0 10 3/uL 1.2-3.8 [facility] Lymphocytes/100 WBC Auto (Bl d)on 05-02-2023 Lymphocytes/100 WBC (Bld) 7.9 % 20.5-60.0 [facility] MCH Auto (RBC) [Entitic mass ]on 05-02-2023 MCH (RBC) [Entitic mass] 27.9 pg 26.7-34.0 [facility] MCHC Auto (RBC) [Mass/Vol]on 05-02-2023 MCHC (RBC) [Mass/Vol] 32.7 g/dL 29.9-35.2 [facility] MCV Auto (RBC) [Entitic vol] on 05-02-2023 MCV (RBC) [Entitic vol] 85.2 fL 81.0-99.0 [facility] Monocytes Auto (Bld) [#/Vol] on 05-02-2023 Monocytes (Bld) [#/Vol] 0.8 10 3/uL 0.3-0.8 [facility] Monocytes/100 WBC Auto (Bld) on 05-02-2023 Monocytes/100 WBC (Bld) 6.3 % 1.7-12.0 [facility] Neutrophils Auto (Bld) [#/Vo l]on 05-02-2023 Neutrophils (Bld) [#/Vol] 10.5 10 3/uL 1.4-6.5 [facility] Neutrophils/100 WBC Auto (Bl d)on 05-02-2023 Neutrophils/100 WBC (Bld) 85.0 % 43.0-75.0 [facility] No Panel Informationon 05-02 Bedside Influenza Type A Antigen Negative [facility] Comment on above: Negative for Flu A p rotein antigen. Infection due to Flu Acannot be ruled out. Flu A antigen in the sample may bebelow the detection limit of the test. Bedside Influenza Type B Antigen Negative [facility] Comment on above: Negative for Flu B p rotein antigen. Infection due to Flu Bcannot be ruled out. Flu B antigen in the sample may bebelow the detection limit of the test. Eosinophils # (Auto) 0.0 10 3/uL 0.0-0.7 [facility] Immature Granulocyte # (Auto) 0.04 10 3/uL 0.00-0.03 [facility] Monoscreen Negative NEGATIVE [facility] Platelet mean volume Auto (B ld) [Entitic vol]on 05-02-2023 Platelet mean volume (Bld) [Entitic vol] 8.9 fL 9.5-13.5 [facility] Platelets Auto (Bld) [#/Vol] on 05-02-2023 Platelets (Bld) [#/Vol] 369 10 3/uL 150-450 [facility] RBC Auto (Bld) [#/Vol]on RBC (Bld) [#/Vol] 4.88 10 6/uL 4.20-5.40 [facility] Serum or plasma anion gap de terminationon 05-02-2023 Anion gap [Moles/Vol] 15.2 mmol/L [facility] [place] [facility] Cytology Cervical or vaginal smear or scraping studyOrdered By: Kenyatta Salazar on 12-28-2022 [facility] A1C with Estimated Average G luon 12-01-2022 Glucose [Mass/Vol] 120 mg/dL Normal [facility] Comment on above: Result Comment: PERF ORMED BY: [facility] [address] [place] [address] PATHOLOGIST W[employer] SERVICER ISAIAS DE LA CRUZ M.D. Performed By: #### L IPID, HS TROP, A1C WT eA ####[facility] [id number] [place] [address] [facility] HbA1c (Bld) [Mass fraction] 5.8 % High 4.3-5.6 [facility] Comment on above: Result Comment: Incr eased risk for diabetes: 5.7 - 6.4 diabetes: >6.4 glycemic control for adults with diabetes: <7.0 Performed By: #### L IPID, HS TROP, A1C WTH eA ####[facility] [id number] [place] [address] [facility] Cholesterol [Mass/volume] in Serum or PlasmaOrdered By: Baljinder Polanco on 12-01-2022 Cholesterol [Mass/Vol] 214 mg/dL 140-200 [facility] [place] [facility] Comment on above: Chol less than 200 m g/dl low riskChol 201-239 mg/dl borderline riskChol 240 mg/dl and greater high risk Cholesterol in LDL Calc [Mas s/Vol]Ordered By: Baljinder Polanco on 12-01-2022 Cholesterol in LDL [Mass/Vol] 132 mg/dL 0-100 [facility] Comment on above: LDL ATP III CLASSIFI CATIONLDL less than 100 mg/dL OptimalLDL 100-129 mg/dL Near or above optimalLDL 130-159 mg/dL Borderline highLDL 160-189 mg/dL HighLDL greater than 189 mg/dL Very high Cholesterol in VLDL Calc [Ma ss/Vol]Ordered By: Baljinder Polanco on 12-01-2022 Cholesterol in VLDL [Mass/Vol] 27 mg/dL [facility] ECH echo transthoracicon ECH echo transthoracic [facility] [place] [address] Echocardiogram Signed Patient: Karlene Vazquez MR#: [id number] : 1990 Acct:[id number] Age/Sex: 32 / F ADM Date: 11/30/22 Loc: Room: [address] [place] [address] Type: ADM INOo Attending Dr: Baljinder Polanco MD Ordering Provider: Baljinder Polanco MD Date of Service: 12/01/22 ECH/ECH echo transthoracic: chest pain, abnormal troponins Copies to: MD Hammad Ambrose MD, [facility] Height: 69 in Weight: 197 lb Performed [...] 12/01/22 1120 Signed By: Hammad Adam MD, [facility] 12/01/22 1643 Normal [facility] Glucose mean value [Mass/vol ume] in Blood Estimated from glycated hemoglobinOrdered By: Baljinder Polanco on 12-01-2022 Average glucose Estimated from glycated hemoglobin (Bld) [Mass/Vol] 120 mg/dL [facility] Hemoglobin A1c percentageOrd ered By: Baljinder Polanco on 12-01-2022 HbA1c (Bld) [Mass fraction] 5.8 % 4.3-5.6 [facility] Comment on above: Increased risk for d iabetes: 5.7 - 6.4diabetes: >6.4glycemic control for adults with diabetes: <7.0 Lipid Panelon 12-01-2022 Cholesterol [Mass/Vol] 214 mg/dL High 140-200 [facility] [place] [facility] Comment on above: Result Comment: Chol less than 200 mg/dl low risk Chol 201-239 mg/dl borderline risk Chol 240 mg/dl and greater high risk Performed By: #### L IPID, HS TROP, A1C WTH eA ####[id number] [place] [address] [facility] Cholesterol in HDL [Mass/Vol] 54 mg/dL Normal 23-92 [facility] Comment on above: Result Comment: HDL CHOL ATP-III CLASSIFICATION Cardiovascular Risk HDL > or equal to 60 mg/dL LOW HDL < 40 mg/dL HIGH Performed By: #### L IPID, HS TROP, A1C WTH eA ####[address] [address] [facility] Cholesterol.total/Chol esterol in HDL [Mass ratio] 4.0 {ratio} Normal <5.0 [facility] Comment on above: Result Comment: PERF ORMED BY: [facility] [address] [place] [address] PATHOLOGIST W[employer] SERVICER ISAIAS DE LA CRUZ M.D. Performed By: #### L IPID, HS TROP, A1C WTH eA ####[id number] [place] [address] [facility] LDL Cholesterol,Calculated 132 mg/dL High 0-100 [facility] Comment on above: Result Comment: LDL ATP III CLASSIFICATION LDL less than 100 mg/dL Optimal LDL 100-129 mg/dL Near or above optimal LDL 130-159 mg/dL Borderline high LDL 160-189 mg/dL High LDL greater than 189 mg/dL Very high Performed By: #### L IPID, HS TROP, A1C WTH eA ####[place] [id number] Triglyceride w/Reflex 139 mg/dL Normal 0-149 [facility] Comment on above: Result Comment: TRIG ATP III CLASSIFICATION TRIG less than 150 mg/dL Normal TRIG 150-199 mg/dL Borderline high TRIG 200-500 mg/dL High TRIG greater than 500 mg/dL Very high Standard traceable to the Center for Disease Conrtrol and Prevention (CDC) test method. Performed By: #### L IPID, HS TROP, A1C WTH eA ####[facility] [id number] [address] VLDL CHOLESTEROL 27 mg/dL Normal [facility] Comment on above: Performed By: #### L IPID, HS TROP, A1C WTH eA ####[facility] [id number] Serum or plasma high density lipoprotein (HDL) cholesterol measurementOrdered By: Baljinder Polanco on 12-01-2022 Cholesterol in HDL [Mass/Vol] 54 mg/dL 23-92 [facility] Comment on above: HDL CHOL ATP-III CLA SSIFICATION Cardiovascular RiskHDL > or equal to 60 mg/dL LOWHDL < 40 mg/dL HIGH Serum or plasma total choles terol/high density lipoprotein (HDL) cholesterol mass ratOrdered By: aBljinder Polanco on 12-01-2022 Cholesterol.total/Chol esterol in HDL [Mass ratio] 4.0 {ratio} <5.0 [facility] Triglyceride [Mass/volume] i n Serum or PlasmaOrdered By: Baljinder Polanco on 12-01-2022 Triglyceride [Mass/Vol] 139 mg/dL 0-149 [facility] Comment on above: TRIG ATP III CLASSIF ICATIONTRIG less than 150 mg/dL NormalTRIG 150-199 mg/dL Borderline highTRIG 200-500 mg/dL High TRIG greater than 500 mg/dL Very highStandard traceable to the Center for Disease Conrtrol and Prevention (CDC) test method. Troponin I High Sensitivityo n 12-01-2022 Troponin I High Sensitivity 27.1 pg/mL High 0.0-15.0 [facility] Comment on above: Result Comment: PERF ORMED BY: [facility] [address] [place] [address] PATHOLOGIST W[employer] SERVICER ISAIAS DE LA CRUZ M.D. Performed By: #### L IPID, HS TROP, A1C WTH eA ####[facility] [id number] Troponin I.cardiac [Mass/vol ume] in Serum or Plasma by Detection limit <= 0.01 ng/Ordered By: Baljinder Polanco on 12-01-2022 Troponin I.cardiac DL <= 0.01 ng/mL [Mass/Vol] 27.1 pg/mL 0.0-15.0 [facility] Activated partial thrombopla stin time (aPTT) in platelet poor plasma by coagulation aOrdered By: Marcio Steven on 11-30-2022 aPTT Coag (PPP) [Time] 32.4 s 25.1-36.5 [facility] Comment on above: A hematocrit value g reater than 55% may lead to inaccurate results in coagulation testing. Patients having hematocrit values >55% require a special collection tube for coagulation studies. Please contact the laboratory at [phone] for redraw instructions. Alanine aminotransferase [En zymatic activity/volume] in Serum or PlasmaOrdered By: Marcio Steven on 11-30-2022 ALT [Catalytic activity/Vol] 16 U/L Normal 7-52 [facility] Comment on above: Performed By: #### U A #### [facility] [address] [place] [address] [place] Albumin [Mass/volume] in Ser um or Plasma by Bromocresol green (BCG) dye binding methoOrdered By: Marcio Steven on 11-30-2022 Albumin BCG dye [Mass/Vol] 4.4 g/dL 3.5-5.7 [facility] Alkaline phosphatase [Enzyma tic activity/volume] in Serum or PlasmaOrdered By: Marcio Steven on 11-30-2022 ALP [Catalytic activity/Vol] 73 U/L Normal 34-104 [facility] Comment on above: Performed By: #### U A #### [facility] [address] [place] [address] [place] Aspartate aminotransferase [ Enzymatic activity/volume] in Serum or PlasmaOrdered By: Marcio Steven on 11-30-2022 AST [Catalytic activity/Vol] 11 U/L Low 13-39 [facility] Comment on above: Performed By: #### U A #### [address] Automated basophil %Ordered By: Marcio Tenisha on 11-30-2022 Basophils/100 WBC (Bld) 0.8 % Normal . [facility] Comment on above: Performed By: #### B PYTHON DJANGO DEVELOPER, CK, CBC, HS TROP #### [address] Automated basophil countOrde red By: Marcio Steven on 11-30-2022 Basophils (Bld) [#/Vol] 0.1 10*3/uL Normal 0.0-0.2 [facility] Comment on above: Result Comment: PERF ORMED BY: [place] [address] PATHOLOGIST W[employer] SERVICER ISAIAS DE LA CRUZ M.D. Performed By: #### B PYTHON DJANGO DEVELOPER, CK, CBC, HS TROP #### [address] Automated blood monocyte cou ntOrdered By: Marcio Steven on 11-30-2022 Monocytes (Bld) [#/Vol] 0.6 10*3/uL Normal 0.0-0.8 [facility] Comment on above: Performed By: #### B PYTHON DJANGO DEVELOPER, CK, CBC, HS TROP #### [facility] [address] [place] [address] Automated eosinophil %Ordere d By: Marcio Steven on 11-30-2022 Eosinophils/100 WBC (Bld) 0.9 % Normal . [facility] Comment on above: Performed By: #### B PYTHON DJANGO DEVELOPER, CK, CBC, HS TROP #### [facility] [address] [place] [address] Automated eosinophil countOr dered By: Marcio Steven on 11-30-2022 Eosinophils (Bld) [#/Vol] 0.1 10*3/uL Normal 0.0-0.45 [facility] Comment on above: Performed By: #### B PYTHON DJANGO DEVELOPER, CK, CBC, HS TROP #### [facility] [address] Automated monocyte %Ordered By: Marcio Steven on 11-30-2022 Monocytes/100 WBC (Bld) 6.8 % Normal . [facility] Comment on above: Performed By: #### B PYTHON DJANGO DEVELOPER, CK, CBC, HS TROP #### [address] Automated neutrophil %Ordere d By: Marcio Steven on 11-30-2022 Neutrophils/100 WBC (Bld) 59.2 % Normal . [facility] Comment on above: Performed By: #### B PYTHON DJANGO DEVELOPER, CK, CBC, HS TROP #### [address] BNP ser/plasOrdered By: Jack Steven on 11-30-2022 Natriuretic peptide B (Bld) [Mass/Vol] 13.0 pg/mL Normal 5-100 [facility] Comment on above: Result Comment: PERF ORMED BY: [place] [address] PATHOLOGIST W[employer] SERVICER ISAIAS DE LA CRUZ M.D. Performed By: #### B PYTHON DJANGO DEVELOPER, CK, CBC, HS TROP #### [address] Basic Metabolic Panelon 11-12 Creatinine Clr Calc Pharmacy 114.08 Normal [facility] Comment on above: Performed By: #### U A #### [address] Calcium [Mass/Vol] 9.1256504 mg/dL Normal 8.6-10 .3 mg/dL [facility] Other CO2 [Moles/Vol] 23.70884921 mmol/L Normal 21.0-3 1.0 mmol/L [facility] Other Creatinine [Mass/Vol] 0.32185285 mg/dL Normal 0. 60-1.20 mg/dL [facility] Other GFR/1.73 sq M.predicted MDRD (S/P/Bld) [Vol rate/Area] mL/min/{1.73_m2} Normal [facility] [employer] Other Comment on above: Performed By: #### U A #### [address] Potassium [Moles/Vol] 4.77189223 mmol/L Normal 3 .5-5.1 mmol/L [facility] [employer] Other Basic Metabolic PanelOrdered By: Marcio Steven on 11-30-2022 Chloride [Moles/Vol] 104 mmol/L Normal 98-107 [facility] Comment on above: Performed By: #### U A #### [address] Glucose [Mass/Vol] 77 mg/dL Normal 70-100 [facility] Comment on above: ADA recommended refe rence rangeRandom Glucose Reference Range is dependent on time and content of last meal. Glucose of more than 200 mg/dL in a nonstressed, ambulatory subject supports the diagnosis of Diabetes Mellitus. Result Comment: [place] [facility] Glucose Reference Range is dependent on time and content of last meal. Glucose of more than 200 mg/dL in a nonstressed, ambulatory subject supports the diagnosis of Diabetes Mellitus. ADA recommended reference range Performed By: #### U A #### [place] [address] [place] Sodium [Moles/Vol] 138 mmol/L Normal 136-145 [facility] Comment on above: Performed By: #### U A #### [place] [address] [place] Urea nitrogen [Mass/Vol] 9 mg/dL Normal 7-25 [facility] Comment on above: Performed By: #### U A #### [address] Bilirubin Test strip Ql (U)O rdered By: Marcio Steven on 11-30-2022 Bilirubin Ql (U) Negative Negative [facility] Bilirubin.direct [Mass/volum e] in Serum or PlasmaOrdered By: Marcio Steven on 11-30-2022 Bilirubin.direct [Mass/Vol] 0.00 mg/dL 0.03-0.18 [facility] Comment on above: If the DBIL is less than 0.1, IBIL is not able to becalculated. Bilirubin.total [Mass/volume ] in Serum or PlasmaOrdered By: Marcio Steven on 11-30-2022 Bilirubin [Mass/Vol] 0.9 mg/dL Normal 0.3-1.0 [facility] Comment on above: Performed By: #### U A #### [address] BioFire Not Detectedon 11-30 BioFire Not Detected Not detected Normal Not Detecte [facility] Comment on above: Result Comment: This is a duplicate RP2.1 COVID (PCR) result to be used for statistical tracking purpose only. PERFORMED BY: [place] [address] PATHOLOGIST W[employer] SERVICER ISAIAS DE LA CRUZ M.D. Performed By: #### R ZULEMA PANEL UPP., BIOFIRECOVNOTDE #### [address] COVID-19 Detected/Not Detect edOrdered By: Marcio Steven on 11-30-2022 SARS-CoV-2 (COVID-19) RNA LEO+non-probe Ql (Nph) Not detected Not Detecte [facility] Comment on above: This is a duplicate RP2.1 COVID (PCR) result to be used for statistical tracking purpose only. Calcium [Mass/volume] in Ser um or PlasmaOrdered By: Marcio Steven on 11-30-2022 Calcium [Mass/Vol] 9.5 mg/dL Normal 8.6-10.3 [facility] Comment on above: Performed By: #### U A #### [address] Carbon dioxide, total [Moles /volume] in Serum or PlasmaOrdered By: Marcio Steven on 11-30-2022 CO2 [Moles/Vol] 23.9 mmol/L Normal 21.0-31.0 [facility] Comment on above: Performed By: #### U A #### [address] Color Auto (U)Ordered By: Baljeet Steven on 11-30-2022 Color (U) Yellow Yellow [facility] Complete Blood Count Auto Di ffon 11-30-2022 Mean Corpuscular HGB Conc 33.3 g/dL Normal 32.0-35.0 [facility] Comment on above: Performed By: #### B PYTHON DJANGO DEVELOPER, CK, CBC, HS TROP #### [facility] [address] Monocytes/100 WBC (Bld) 19.22 % Normal 0.00-20.00 [facility] Comment on above: Performed By: #### B PYTHON DJANGO DEVELOPER, CK, CBC, HS TROP #### [facility] [address] NRBC% 0.2 /100{WBC} Normal 0-0.5 [facility] Comment on above: Performed By: #### B PYTHON DJANGO DEVELOPER, CK, CBC, HS TROP #### [address] Basophils (Bld) [#/Vol] 0.533300695 10*3/uL Normal 0.0-0.2 10*3/uL [facility] Other Basophils/100 WBC (Bld) 0.800 % . % [facility] Other Eosinophils (Bld) [#/Vol] 0.833595149 10*3/uL Normal 0.0-0.45 10*3/uL [facility] Other Eosinophils/100 WBC (Bld) 0.900 % . % [facility] Other Erythrocyte distribution width (RBC) [Ratio] 14.300 % Normal 11.9-15.3 % [facility] Other Hematocrit (Bld) [Volume fraction] 41.000 % Normal 34.0-46.4 % [facility] Other Hemoglobin (Bld) [Mass/Vol] 13.471134 g/dL Normal 11.8-15.4 g/dL [facility] Other Lymphocytes (Bld) [#/Vol] 2.181304896 10*3/uL Normal 1.00-4.8 10*3/uL [facility] Other Lymphocytes/100 WBC (Bld) 32.300 % . % [facility] Other MCH (RBC) [Entitic mass] 27.0000 pg Normal 24.7-34.3 pg [facility] MCV (RBC) [Entitic vol] 81.0000 fL Normal 80-100 fL [facility] Other Monocytes (Bld) [#/Vol] 0.111207317 10*3/uL Normal 0.0-0.8 10*3/uL [facility] Monocytes/100 WBC (Bld) 6.800 % . % [facility] Other Neutrophils (Bld) [#/Vol] 4.468346813 10*3/uL Normal 1.8-7.7 10*3/uL [facility] Other Neutrophils/100 WBC (Bld) 59.200 % . % [facility] Other Platelet mean volume (Bld) [Entitic vol] 7.2000 fL Normal 6.3-10.7 fL [facility] Other WBC (Bld) [#/Vol] 8.418284814 10*3/uL Normal 3.8 -11.6 10*3/uL [facility] Other Complete Blood Count Auto Diff 8.2 10*3/uL Normal 3.8-11.6 10*3/uL [facility] Other Complete Blood Count Auto Diff 33.3 g/dL Normal 32.0-35.0 g/dL [facility] Other Complete Blood Count Auto Diff 0.2 /100{WBC} Normal 0-0.5 /100{WBC} [facility] [employer] Other Complete Blood Count Auto Di ffOrdered By: Marcio Steven on 11-30-2022 Platelets (Bld) [#/Vol] 368 10*3/uL Normal 150-450 [facility] Comment on above: Performed By: #### B PYTHON DJANGO DEVELOPER, CK, CBC, HS TROP #### [address] RBC (Bld) [#/Vol] 5.06 10*6/uL High 3.60-5.00 [facility] Comment on above: Performed By: #### B PYTHON DJANGO DEVELOPER, CK, CBC, HS TROP #### [address] Creatine kinase [Enzymatic a ctivity/volume] in Serum or PlasmaOrdered By: Marcio Steven on 11-30-2022 CK [Catalytic activity/Vol] 18 U/L Low 30-223 [facility] Comment on above: Performed By: #### B PYTHON DJANGO DEVELOPER, CK, CBC, HS TROP #### [address] Creatinine [Mass/volume] in Serum or PlasmaOrdered By: Marcio Steven on 11-30-2022 Creatinine [Mass/Vol] 0.83 mg/dL Normal 0.60-1.20 [facility] Comment on above: Performed By: #### U A #### [address] D-Dimer High Sensitivityon 0 11-30-2022 D-Dimer High Sensitivity < 200 Normal 0-243 [facility] Comment on above: Result Comment: The reference [...] coagulation studies. Please contact the laboratory at [phone] for redraw instructions. PERFORMED BY: [place] [address] PATHOLOGIST WATER PU[employer] SERVICER ISAIAS DE LA CRUZ M.D. Performed By: #### U A #### [address] ECG 12 lead ECGon 11-30-2022 ECG 12 lead ECG [facility] [address] [place] [address] [place] [address] Electrocardiograph Report Signed Patient: Karlene Vazquez MR#: [id number] : 1990 Acct:[id number] Age/Sex: 32 / F ADM Date: 11/30/22 Loc: ER Room: Type: [facility] ER Attending Dr: Ordering Provider: Marcio [...] ECGs available Confirmed by Marcio Steven DO ([id number]) on 11/30/2022 3:20:08 PM Referred By: Electronically Signed By:Marcio Steven DO Transcribed By: MUS Signed By Marcio Steven DO 3 1520 Normal [facility] Erythrocyte distribution wid th [Ratio] by Automated countOrdered By: Marcio Steven on 11-30-2022 Erythrocyte distribution width (RBC) [Ratio] 14.3 % Normal 11.9-15.3 [facility] Comment on above: Performed By: #### B PYTHON DJANGO DEVELOPER, CK, CBC, HS TROP #### [facility] [address] [place] [id number] [facility] Fibrin D-dimer [Presence] in Platelet poor plasma by Latex agglutinationOrdered By: Marcio Steven on 11-30-2022 Fibrin D-dimer LA Ql (PPP) < 200 ng/mL 0-243 [facility] Comment on above: The reference range for [...] coagulation studies. Please contact the laboratory at [phone] for redraw instructions. Free T4 (Free Thyroxine)on 11-30-2022 Free T4 [Mass/Vol] 1.22822010 ng/dL High 0.61- 1.12 ng/dL [facility] Other Glucose Glucometer (dC) [M ass/Vol]Ordered By: Baljinder Polanco on 11-30-2022 Glucose [Mass/Vol] 100 mg/dL [facility] Comment on above: Random Glucose Refer ence Range is dependent on time and content of last meal. Glucose of more than 200 mg/dL in a nonstressed, ambulatory subject supports the diagnosis of Diabetes Mellitus. Glucose Poct Glucometerson 11-30-2022 Glucose [Mass/Vol] 100 mg/dL Normal [facility] Comment on above: Result Comment: [place] [facility] Glucose Reference Range is dependent on time and content of last meal. Glucose of more than 200 mg/dL in a nonstressed, ambulatory subject supports the diagnosis of Diabetes Mellitus. PERFORMED BY: [facility] [place] [address] PATHOLOGIST WATER [employer] SERVICER ISAIAS DE LA CRUZ M.D. Performed By: #### U A #### [address] Hematocrit [Volume Fraction] of Blood by Automated countOrdered By: Marcio Steven on 11-30-2022 Hematocrit (Bld) [Volume fraction] 41.0 % Normal 34.0-46.4 [facility] Comment on above: Performed By: #### B PYTHON DJANGO DEVELOPER, CK, CBC, HS TROP #### [address] Hemoglobin [Mass/volume] in BloodOrdered By: Marcio Steven on 11-30-2022 Hemoglobin (Bld) [Mass/Vol] 13.7 g/dL Normal 11.8-15.4 [facility] Comment on above: Performed By: #### B PYTHON DJANGO DEVELOPER, CK, CBC, HS TROP #### [address] Hepatic Panelon 11-30-2022 Albumin [Mass/Vol] 4.4 g/dL Normal 3.5-5.7 [facility] Comment on above: Performed By: #### U A #### [address] Bilirubin,Indirect 0.9 mg/dL Normal [facility] Comment on above: Performed By: #### U A #### [address] Bilirubin.indirect [Mass/Vol] 0.00 mg/dL Low 0.03-0.18 [facility] Comment on above: Result Comment: If t he DBIL is less than 0.1, IBIL is not able to be calculated. Performed By: #### U A #### [address] INR in Platelet poor plasma by Coagulation assayOrdered By: Marcio Steven on 11-30-2022 INR Coag (PPP) [Relative time] 1.1 {INR} [facility] Comment on above: INR Therapeutic Rang e [...] on 11-30-2022 Ketones (U) [Mass/Vol] Trace Negative [facility] [place] [facility] Leukocytes [#/volume] correc jocelynn for nucleated erythrocytes in Blood by Automated counOrdered By: Marcio Steven on 11-30-2022 WBC corrected for nucl RBC Auto (Bld) [#/Vol] 8.2 10*3/uL 3.8-11.6 [facility] Leukocytes [#/volume] in Blo od by Automated countOrdered By: Marcio Steven on 11-30-2022 WBC (Bld) [#/Vol] 8.2 10*3/uL Normal 3.8-11.6 [facility] Comment on above: Performed By: #### B PYTHON DJANGO DEVELOPER, CK, CBC, HS TROP #### [facility] [address] [place] [address] [place] Lymphocytes [#/volume] in Bl ood by Automated countOrdered By: Marcio Steven on 11-30-2022 Lymphocytes (Bld) [#/Vol] 2.7 10*3/uL Normal 1.00-4.8 [facility] Comment on above: Performed By: #### B PYTHON DJANGO DEVELOPER, CK, CBC, HS TROP #### [facility] [address] [place] [id number] [place] Lymphocytes/100 leukocytes i n Blood by Automated countOrdered By: Marcio Steven on 11-30-2022 Lymphocytes/100 WBC (Bld) 32.3 % Normal . [facility] Comment on above: Performed By: #### B PYTHON DJANGO DEVELOPER, CK, CBC, HS TROP #### [facility] [address] [place] [id number] [place] MCH [Entitic mass] by Automa jocelynn countOrdered By: Marcio Steven on 11-30-2022 MCH (RBC) [Entitic mass] 27.0 pg Normal 24.7-34.3 [facility] Comment on above: Performed By: #### B PYTHON DJANGO DEVELOPER, CK, CBC, HS TROP #### [facility] [address] [place] [address] MCHC Auto (RBC) [Mass/Vol]Or dered By: Marcio Steven on 11-30-2022 MCHC (RBC) [Mass/Vol] 33.3 g/dL 32.0-35.0 [facility] MCV [Entitic volume] by Auto mated countOrdered By: Marcio Steven on 11-30-2022 MCV (RBC) [Entitic vol] 81.0 fL Normal 80-100 [facility] Comment on above: Performed By: #### B PYTHON DJANGO DEVELOPER, CK, CBC, HS TROP #### [address] Magnesium [Mass/volume] in S abdifatah or PlasmaOrdered By: Marcio Steven on 11-30-2022 Magnesium [Mass/Vol] 1.9 mg/dL Normal 1.9-2.7 [facility] Comment on above: Performed By: #### U A #### [facility] [address] [place] [address] Monocyte distribution width [Entitic volume] in Blood by AutomatedOrdered By: Marcio Steven on 11-30-2022 Monocyte distribution width Auto (Bld) [Entitic vol] 19.22 % 0.00-20.00 [facility] Neutrophils [#/volume] in Bl ood by Automated countOrdered By: Marcio Steven on 11-30-2022 Neutrophils (Bld) [#/Vol] 4.9 10*3/uL Normal 1.8-7.7 [facility] Comment on above: Performed By: #### B PYTHON DJANGO DEVELOPER, CK, CBC, HS TROP #### [address] Nitrite Test strip Ql (U)Ord ered By: Marcio Steven on 11-30-2022 Nitrite Ql (U) Negative Negative [facility] No Panel InformationOrdered By: Marcio Steven on 11-30-2022 Estimated GFR (CKD-EPI) > 60.0 mL/Min [facility] Creatinine Clearance (Chem 114.08 [facility] Nucleated erythrocytes [Pres ence] in Blood by Automated countOrdered By: Marcio Steven on 11-30-2022 Nucleated RBC Auto Ql (Bld) 0.2 /100{WBC} 0-0.5 [facility] Partial Thromboplastin Timeo n 11-30-2022 aPTT Coag (Bld) [Time] 32.4 s Normal 25.1-36.5 [facility] [place] [facility] Comment on above: Result Comment: A he matocrit value greater than 55% may lead to inaccurate results in coagulation testing. Patients having hematocrit values >55% require a special collection tube for coagulation studies. Please contact the laboratory at [phone] for redraw instructions. Performed By: #### U A #### [facility] [address] [place] [address] [place] Platelet mean volume [Entiti c volume] in Blood by Automated countOrdered By: Marcio Steven on 11-30-2022 Platelet mean volume (Bld) [Entitic vol] 7.2 fL Normal 6.3-10.7 [facility] Comment on above: Performed By: #### B PYTHON DJANGO DEVELOPER, CK, CBC, HS TROP #### [facility] [address] [place] [address] [place] Potassium [Moles/volume] in Serum or PlasmaOrdered By: Marcio Setven on 11-30-2022 Potassium [Moles/Vol] 4.1 mmol/L Normal 3.5-5.1 [facility] Comment on above: Performed By: #### U A #### [facility] [address] [place] [address] [place] Protein Auto test strip (U) [Mass/Vol]Ordered By: Marcio Steven on 11-30-2022 Protein (U) [Mass/Vol] Negative Negative [facility] [place] [facility] Protein [Mass/volume] in Ser um or PlasmaOrdered By: Marcio Steven on 11-30-2022 Protein [Mass/Vol] 7.6 g/dL Normal 6.4-8.9 [facility] Comment on above: Performed By: #### U A #### [facility] [address] [place] [id number] [facility] Prothrombin Time INRon 11-30 INR Coag (PPP) [Relative time] 1.1 {INR} Normal [facility] Comment on above: Result Comment: INR Therapeutic [...] 4.5 Performed By: #### U A #### [facility] [address] [place] [id number] [facility] PT Coag (PPP) [Time] 12.5 s Normal 9.0-12.9 [facility] Comment on above: Result Comment: A he matocrit value greater than 55% may lead to inaccurate results in coagulation testing. Patients having hematocrit values >55% require a special collection tube for coagulation studies. Please contact the laboratory at [phone] for redraw instructions. Performed By: #### U A #### [facility] [address] [place] [id number] [facility] Prothrombin time (PT)Ordered By: Marcio Steven on 11-30-2022 PT Coag (PPP) [Time] 12.5 s 9.0-12.9 [facility] Comment on above: A hematocrit value g reater than 55% may lead to inaccurate results in coagulation testing. Patients having hematocrit values >55% require a special collection tube for coagulation studies. Please contact the laboratory at [phone] for redraw instructions. Respiratory (Upper) Panel, P [...] A H3 Blank Space ---- PERFORMED BY: [place] [address] PATHOLOGIST WATER PUMP SERVICER ISAIAS DE LA CRUZ M.D. [facility] Comment on above: Performed By: #### R ZULEMA PANEL UPP., BIOFIRECOVNOTDE #### [facility] [address] [place] [address] Respiratory pathogens DNA an d RNA panel - Nasopharynx by LEO with non-probe detectionOrdered By: Marcio Steven on 11-30-2022 Respiratory pathogens DNA and RNA panel LEO+non-probe (Nph) [facility] Serum globulin measurement b y calculation (mass/volume)Ordered By: Marcio Steven on 11-30-2022 Globulin (S) [Mass/Vol] 3.2 g/dL [facility] Comment on above: Performed By: #### U A #### [facility] [address] [place] [address] Serum or plasma albumin/glob ulin mass ratioOrdered By: Marcio Steven on 11-30-2022 Albumin/Globulin [Mass ratio] 1.4 {ratio} [facility] Comment on above: Performed By: #### U A #### [facility] [address] [place] [address] Serum or plasma anion gap de terminationOrdered By: Marcio Steven on 11-30-2022 Anion gap [Moles/Vol] 14.2 mmol/L Normal 6.0-15.0 [facility] [place] [facility] Comment on above: Performed By: #### U A #### [facility] [address] [place] [address] Serum or plasma non-glucuron idated bilirubin measurement (mass/volume)Ordered By: Marcio Steven on 11-30-2022 Bilirubin.indirect [Mass/Vol] 0.9 mg/dL [facility] Specific gravity Auto test s trip (U) [Rel density]Ordered By: Marcio Steven on 11-30-2022 Specific gravity (U) [Rel density] 1.013 1.001-1.03 0 [facility] Thyroid Stimulating Hormoneo n 11-30-2022 TSH Qn 0.82953229725 m[IU]/L Low 0.45-5 .33 u[iU]/mL [facility] Other Thyrotropin [Units/volume] i n Serum or PlasmaOrdered By: Marcio Steven on 11-30-2022 TSH Qn 0.03 m[IU]/L Low 0.45-5.33 [facility] Comment on above: Result Comment: PERF ORMED BY: [address] [place] [address] PATHOLOGIST W[employer] PUMP SERVICER ISAIAS DE LA CRUZ M.D. Performed By: #### U A #### [facility] [address] [place] [address] Thyroxine (T4) free [Mass/vo lume] in Serum or PlasmaOrdered By: Marcio Steven on 11-30-2022 Free T4 [Mass/Vol] 1.56 ng/dL High 0.61-1.12 [facility] Comment on above: Performed By: #### U A #### [facility] [address] [place] [address] Triiodothyronine (T3) Freeon 11-30-2022 Triiodothyronine (T3) Free 3.89 pg/mL Normal 2.50-3.90 [facility] Comment on above: Result Comment: PERF ORMED BY: [place] [address] PATHOLOGIST WATER PUMP SERVICER ISAIAS DE LA CRUZ M.D. Performed By: #### P TT, MG, T3F, DDIMER, T4F, BMP, PT, TSH3, HEPATIC ####[facility] [address] [place], [place] [id number] [facility] Triiodothyronine (T3) Free [ Mass/volume] in Serum or PlasmaOrdered By: Marcio Steven on 11-30-2022 Free T3 [Mass/Vol] 3.89 pg/mL 2.50-3.90 [facility] Troponin I High Sensitivityo n 11-30-2022 Troponin I High Sensitivity 38.7 pg/mL High 0.0-15.0 [facility] Comment on above: Result Comment: PERF ORMED BY: [place] [address] PATHOLOGIST W[employer] PU[employer] SERVICER ISAIAS DE LA CRUZ M.D. Performed By: #### U A #### [facility] [address] [place] [address] US liveron 11-30-2022 US liver [facility] [place] [address] [place] [address] Ultrasound Report Signed Patient: Karlene Vazquez MR#: [id number] : 1990 Acct:[id number] Age/Sex: 32 / F ADM Date: 11/30/22 Loc: Room: [address] [place] [address] Type: ADM IN Attending Dr: Baljinder Polanco [...] Crow Ramos M.D.11/30/2022 5:27 PM Dictation Location: [place] [address] Tech: Ophelia Queen Transcribed By: TORITO 11/30/221726 Dictated By: Crow Ramos II, MD 11/30/221725 Signed By: 11/30/221726 Normal [facility] Urinalysison 11-30-2022 Appearance (U) Clear Normal Clear [facility] Comment on above: Order Comment: Name Collection Type:: Clean-Voided Midstream Performed By: #### U A #### [place] [address] [place] Bilirubin,Urine Negative Normal Negative [facility] Comment on above: Order Comment: Name Collection Type:: Clean-Voided Midstream Performed By: #### U A #### [facility] [address] [place] [address] [place] Color (U) Yellow Normal Yellow [facility] Comment on above: Order Comment: Name Collection Type:: Clean-Voided Midstream Performed By: #### U A #### [facility] [address] [place], [place] [id number] [place] Glucose Ql (U) Normal Normal Normal [facility] Comment on above: Order Comment: Name Collection Type:: Clean-Voided Midstream Performed By: #### U A #### [facility] [address] [place], [place] [id number] [place] Ketones Ql (U) Trace High Negative [facility] Comment on above: Order Comment: Name Collection Type:: Clean-Voided Midstream Performed By: #### U A #### [facility] [address] [place] [address] [place] Leukocyte esterase Test strip Ql (U) Negative Normal Negative [facility] Comment on above: Order Comment: Name Collection Type:: Clean-Voided Midstream Performed By: #### U A #### [address] Nitrite,Urine Negative Normal Negative [facility] Comment on above: Order Comment: Name Collection Type:: Clean-Voided Midstream Performed By: #### U A #### [address] Occult Blood,Urine Negative Normal Negative [facility] Comment on above: Order Comment: Name Collection Type:: Clean-Voided Midstream Result Comment: PERF ORMED BY: [place] [address] PATHOLOGIST WATER PUMP SERVICER ISAIAS DE LA CRUZ M.D. Performed By: #### U A #### [address] pH (U) [pH] Normal 5.0-9.0 [facility] Comment on above: Order Comment: Name Collection Type:: Clean-Voided Midstream Performed By: #### U A #### [address] Protein,Urine Negative Normal Negative [facility] Comment on above: Order Comment: Name Collection Type:: Clean-Voided Midstream Performed By: #### U A #### [address] Specificy [place],Urine 1.013 Normal 1.001-1.03 0 [facility] Comment on above: Order Comment: Name Collection Type:: Clean-Voided Midstream Performed By: #### U A #### [address] Urobilinogen,Urine Normal Normal Normal [facility] Comment on above: Order Comment: Name Collection Type:: Clean-Voided Midstream Performed By: #### U A #### [address] Urine clarity by refractomet ry automatedOrdered By: Marcio Steven on 11-30-2022 Clarity Refractometry automated (U) Clear Clear [facility] Urine glucose measurement by automated test strip (mass/volume)Ordered By: Marcio Steven on 11-30-2022 Glucose Auto test strip (U) [Mass/Vol] Normal mg/dL Normal [facility] Urine hemoglobin detection b y automated test stripOrdered By: Marcio Steven on 11-30-2022 Hemoglobin Auto test strip Ql (U) Negative Negative [facility] Urine leukocyte esterase det ection by automated test stripOrdered By: Marcio Steven on 11-30-2022 Leukocyte esterase Auto test strip Ql (U) Negative Negative [facility] Urobilinogen Auto test strip (U) [Mass/Vol]Ordered By: Marcio Steven on 11-30-2022 Urobilinogen (U) [Mass/Vol] Normal mg/dL Normal [facility] XR chest 1V portableon 11-30 XR chest 1V portable [facility] [place] [address] XRay Report Signed Patient: Karlene Vazquez MR#: [id number] : 1990 Acct:[id number] Age/Sex: 32 / F ADM Date: 11/30/22 Loc: ER Room: Type[facility] ER Attending Dr: Copies to: Marcio [...] Jovan Martin M.D.11/30/2022 1:58 PM Dictation Location: [place] [address] Transcribed By: [facility] 11/30/22 7738 Dictated By: Jovan Martin DO 11/30/22 1351 Signed By: 11/30/22 1358 Normal [facility] pH Auto test strip (U)Ordere d By: Marcio Steven on 11-30-2022 pH (U) [pH] 5.0-9.0 [facility] CORTISOL FREE, SERUMon 06-17 Cortisol, Free Dialysis, LCMS 0.649 ug/dL Normal [facility] Comment on above: Result Comment: Thes e tests were developed and their performance characteristics determined by [employer]. They have not been cleared or approved by the Food and Drug Administration. Reference Range: 8 AM 0.10 - 1.20 4 PM 0.042 - 0.872 Performed By: #### R [id number] #### [facility] [address] [place] [address] Dr. Dimple Parsons CBC AUTO DIFFon 06-16-2022 BASO # 0.1 103/ul Normal 0.0-0.[address] [facility] Comment on above: Performed By: #### R [id number] #### [facility] [address] [place] [address] Dr. Dimple Parsons Basophils/100 WBC (Bld) 0.6 % Normal 0.2-2.[address] [facility] Comment on above: Performed By: #### R [id number] #### [facility] [address] [place] [address] Dr. Dimple Parsons EO # 0.4 103/ul Normal 0.0-0.[address] [facility] Comment on above: Performed By: #### R [id number] #### [facility] [address] [place] [address] Dr. Dimple Parsons Eosinophils/100 WBC (Bld) 4.0 % Normal 0.9-7.[address] [facility] Comment on above: Performed By: #### R [id number] #### [facility] [address] [place] [address] Dr. Dimple Parsons Erythrocyte distribution width (RBC) [Ratio] 13.8 % Normal 11.0-15.[address] [facility] Comment on above: Performed By: #### R [id number] #### [facility] [address] [place] [address] Dr. Dimple Parsons Hematocrit (Bld) [Volume fraction] 39.8 % Normal 36.0-48.[address] [facility] Comment on above: Performed By: #### R [id number] #### [facility] [address] [place] [address] Dr. Dimple Parsons Hemoglobin (Bld) [Mass/Vol] 12.9 g/dL Normal 12.0-16.[address] [facility] Comment on above: Performed By: #### R [id number] #### [facility] [address] [place] [address] Dr. Dimple Parsons IG # 0.02 10e3/ul Normal 0.00-0.[address] [facility] Comment on above: Performed By: #### R [id number] #### [facility] [address] [place] [address] Dr. Dimple Parsons IG % 0.2 % Normal 0.0-0.[address] [facility] Comment on above: Performed By: #### R [id number] #### [facility] [address] [place] [address] Dr. Dimple Parsons LYMPH # 3.1 103/ul Normal 1.2-3.[address] [facility] Comment on above: Performed By: #### R [id number] #### [facility] [address] [place] [address] Dr. Dimple Parsons Lymphocytes/100 WBC (Bld) 33.5 % Normal 20.5-60.[address] [facility] Comment on above: Performed By: #### R [id number] #### [facility] [address] [place] [address] Dr. Dimple Parsons MANUAL DIFF REQ NO Normal [facility] Comment on above: Performed By: #### R [id number] #### [facility] [address] [place] [address] Dr. Dimple Parsons MCH (RBC) [Entitic mass] 26.1 pg Critically low 26.7-34.[address] [facility] Comment on above: Performed By: #### R [id number] #### [facility] [address] [place] [address] Dr. Dimple Parsons MCHC (RBC) [Mass/Vol] 32.4 g/dL Normal 29.9-35.[address] [facility] Comment on above: Performed By: #### R [id number] #### [facility] [address] [place] [address] Dr. Dimple Parsons MCV (RBC) [Entitic vol] 80.4 fL Critically low 81.0-99.[address] [facility] Comment on above: Performed By: #### R [id number] #### [facility] [address] [place] [address] Dr. Dimple Parsons MONO # 0.5 103/ul Normal 0.3-0.[address] [facility] Comment on above: Performed By: #### R [id number] #### [facility] [address] [place] [address] Dr. Dimple Parsons Monocytes/100 WBC (Bld) 5.2 % Normal 1.7-12.[address] [facility] Comment on above: Performed By: #### R [id number] #### [facility] [address] [place] [address] Dr. Dimple Parsons NEUT # 5.2 103/ul Normal 1.4-6.[address] [facility] Comment on above: Performed By: #### R [id number] #### [facility] [address] [place] [address] Dr. Dimple Parsons Neutrophils/100 WBC (Bld) 56.5 % Normal 43.0-75.0 [facility] Comment on above: Performed By: #### R [id number] #### [facility] [address] [place] [address] Dr. Dimple Parsons Platelet mean volume (Bld) [Entitic vol] 8.7 fL Critically low 9.5-13.[address] [facility] Comment on above: Performed By: #### R [id number] #### [facility] [address] [place] [address] Dr. Dimple Parsons PLT 376 103/ul Normal 150-450 [facility] Comment on above: Performed By: #### R [id number] #### [facility] [address] [place] [address] [address] Dimple Parsons RBC 4.95 106/ul Normal 4.20-5.[address] [facility] Comment on above: Performed By: #### R [id number] #### [facility] [address] [place] [address] [address] Dimple Parsons WBC 9.3 103/ul Normal 4.0-11.[address] [facility] Comment on above: Performed By: #### R [id number] #### [facility] [address] [place] [address] [address] Dimple Parsons TESTOSTERONE, FREE,DIRECT, T OTALon 06-10-2022 Free Testosterone(Direct) 1.6 pg/mL Normal 0.0-4.2 [facility] Comment on above: Result Comment: Perf ormed at: BN Performed By: #### C BC #### [facility] [address] [place] [address] Dr. Dimple Parsons Testosterone [Mass/Vol] 22 ng/dL Normal 8-[address] [facility] Comment on above: Result Comment: Perf ormed at: CB Performed By: #### C BC #### [facility] [address] [place] [address] Dr. Dimple Parsons ESTROGENon 2022 Estrogens, Total 413 pg/mL Normal [facility] Comment on above: Result Comment: Prep ubertal < 40 Female Cycle: 1-10 Days 16 - 328 11-20 Days 34 - 501 21-30 Days 48 - 350 Post-Menopausal 40 - 244 Performed By: #### D HEMARCELINOUL #### [facility] [address] [place] [address] Dr. Dimple Parsons SEROTONINon 2022 Serotonin, Serum 20 ng/mL Critically low 31-[address] [facility] Comment on above: Performed By: #### S EROTON #### [facility] [address] [place] [address] Dr. Dimple Parsons REVERSE T3on 06-08-2022 Reverse T3, Serum 15.6 ng/dL Normal 9.2-24.1 [facility] Comment on above: Result Comment: This test was developed and its performance characteristics determined by [employer]. It has not been cleared or approved by the Food and Drug Administration. Performed By: #### R [id number] #### [facility] [address] [place] [address] Dr. Dimple Parsons VIT D 1 25 DIHYDROXYon 06-07 Calcitriol(1,25 di-OH Vit D) 12.2 pg/mL Critically low 24.8-81.[address] [facility] Comment on above: Performed By: #### V [id number] #### [facility] [address] [place] [address] Dr. Dimple Parsons C-PEPTIDE, SERUMon 3 C-Peptide, Serum 3.3 ng/mL Normal 1.1-4.4 [facility] Comment on above: Result Comment: C-Pe ptide reference interval is for fasting patients. Performed By: #### R [id number] #### [facility] [address] [place] [address] Dr. Dimple Parsons DHEA-SULFATEon 06-05-2022 DHEA-Sulfate 154.0 ug/dL Normal 84.8-378.0 [facility] Comment on above: Performed By: #### D SURINDER #### [facility] [address] [place] [address] Dr. Dimple Parsons ESTRADIOLon 06-05-2022 Estradiol 117.0 pg/mL Normal [facility] Comment on above: Result Comment: Adul t Female: Follicular phase 12.5 - 166.0 Ovulation phase 85.8 - 498.0 Luteal phase 43.8 - 211.0 Postmenopausal <6.0 - 54.7 1st trimester 215.0 - >4300.0 Kye ECLIA methodology Performed By: #### R [id number] #### [facility] [address] [place] [address] Dr. Dimple Parsons INSULINon 06-05-2022 Insulin 13.1 uIU/mL Normal 2.6-24.9 [facility] Comment on above: Performed By: #### C BC #### [facility] [address] [place] [address] Dr. Dimple Parsons PROGESTERONEon 06-05-2022 Progesterone 4.8 ng/mL Normal [facility] Comment on above: Result Comment: Foll icular phase 0.1 - 0.9 Luteal phase 1.8 - 23.9 Ovulation phase 0.1 - 12.0 First trimester 11.0 - 44.3 Second trimester 25.4 - 83.3 Third trimester 58.7 - 214.0 Postmenopausal 0.0 - 0.1 Performed By: #### Inder CADENA #### [facility] [address] [place] [address] Dr. Dimple Parsons SEX HORMONE-BINDING GLOBULIN on 06-05-2022 Sex Horm Binding Glob, Serum 40.7 nmol/L Normal 24.6-122.[address] [facility] Comment on above: Performed By: #### Jocelyne BC #### [facility] [address] [place] [address] Dr. Dimple Parsons T3, TOTAL (TRIIODOTHYRONINE) on 06-05-2022 T3, TOTAL 89 ng/dL Normal 71-[address] [facility] Comment on above: Performed By: #### Rob [id number] #### [facility] [address] [place] [address] Dr. Dimple Parsons THYROID PEROXIDASE ABon 05-13 Thyroid Peroxidase (TPO) Ab 12 IU/mL Normal 0-34 [facility] Comment on above: Performed By: #### Inder CADENA #### [facility] [address] [place] [address] Dr. Dimple Parsons FERRITINon 06-04-2022 Ferritin [Mass/Vol] 193.0 ng/mL Critically high 6.2-137.[address] [facility] Comment on above: Performed By: #### Inder CADENA #### [facility] [address] [place] [address] Dr. Dimple Parsons FREE T3on 06-04-2022 FREE T3 2.24 pg/mlL Normal 2.18-3.[address] [facility] Comment on above: Performed By: #### R [id number] #### [facility] [address] [place] [address] Dr. Dimple Parsons FREE T4on 06-04-2022 Free T4 [Mass/Vol] 1.14 ng/dL Normal 0.76-1.[address] [facility] Comment on above: Performed By: #### D SURINDER #### [facility] [address] [place] [address] Dr. Dimple Parsons GLUCOSE BLOODon 06-04-2022 Glucose [Mass/Vol] 92 mg/dL Normal 74-[address] [facility] Comment on above: Performed By: #### R [id number] #### [facility] [address] [place] [address] Dr. Dimple Parsons GLYCOHEMOGLOBIN A1Con 2022 ADA RECOMMENDATION SEE BELOW Normal [facility] Comment on above: Result Comment: ADA RECOMMENDED LIMIT 4.0 - 6.0 ADA THERAPEUTIC TARGET < 7.0 ACTION SUGGESTED > 7.0 Performed By: #### A 1C #### [facility] [address] [place] [address] Dr. Dimple Parsons Glucose [Mass/Vol] 100 mg/dL Normal [facility] Comment on above: Performed By: #### A 1C #### [facility] [address] [place] [address] Dr. Dimple Parsons HbA1c (Bld) [Mass fraction] 5.1 % Normal 4.5-6.[address] [facility] Comment on above: Performed By: #### A 1C #### [facility] [address] [place] [address] Dr. Dimple Parsons T4on 06-04-2022 T4 [Mass/Vol] 8.60 ug/dL Normal 4.80-13.90 [facility] Comment on above: Performed By: #### R [id number] #### [facility] [address] [place] [address] Dr. Dimple Parsons TSHon 06-04-2022 TSH 0.442 uIU/mL Normal 0.358-3.[address] [facility] Comment on above: Performed By: #### R [id number] #### [facility] [address] [place] [address] Dr. Dimple Parsons US PELVIS AND TRANSVAGon [...] by: KAYLA ACOSTA Date: 2022-05-25 13:[address] [facility] XR KUB 1 VIEWon 05-21-2022 XR KUB [...] by: DAVID ALDANA Date: 2022-05-21 06:53 Normal [facility] CBC AUTO DIFFon 05-08-2022 BASO # 0.0 103/ul Normal 0.0-0.[address] [facility] Comment on above: Performed By: #### C BC #### [facility] [address] [place], [place] [address] Dr. Dimple Parsons Basophils/100 WBC (Bld) 0.3 % Normal 0.2-2.[address] [facility] Comment on above: Performed By: #### C BC #### [facility] [address] [place] [address] Dr. Dimple Parsons EO # 0.2 103/ul Normal 0.0-0.7 [facility] Comment on above: Performed By: #### C BC #### [facility] Laboratory [address] [place] [address] Dr. Dimple Parsons Eosinophils/100 WBC (Bld) 1.3 % Normal 0.9-7.[address] [facility] Comment on above: Performed By: #### C BC #### [facility] [address] [place] [address] Dr. Dimple Parsons Erythrocyte distribution width (RBC) [Ratio] 13.9 % Normal 11.0-15.[address] [facility] Comment on above: Performed By: #### C BC #### [facility] [address] [place] [address] Dr. Dimple Parsons Hematocrit (Bld) [Volume fraction] 38.8 % Normal 36.0-48.[address] [facility] Comment on above: Performed By: #### C BC #### [facility] [address] [place] [address] Dr. Dimple Parsons Hemoglobin (Bld) [Mass/Vol] 12.8 g/dL Normal 12.0-16.0 [facility] Comment on above: Performed By: #### C BC #### [facility] [address] [place] [address] Dr. Dimple Parsons IG # 0.15 10e3/ul Critically high 0.00-0.03 [facility] Comment on above: Performed By: #### C BC #### [facility] [address] [place] [address] Dr. Dimple Parsons IG % 1.3 % Critically high 0.0-0.5 [facility] Comment on above: Performed By: #### C BC #### [facility] [address] [place] [address] Dr. Dimple Parsons LYMPH # 3.4 103/ul Normal 1.2-3.8 [facility] Comment on above: Performed By: #### C BC #### [facility] [address] [place] [address] Dr. Dimple Parsons Lymphocytes/100 WBC (Bld) 28.9 % Normal 20.5-60.0 [facility] Comment on above: Performed By: #### C BC #### [facility] [address] [place] [address] Dr. Dimple Parsons MANUAL DIFF REQ NO Normal [facility] Comment on above: Performed By: #### C BC #### [facility] [address] [place] [address] Dr. Dimple Parsons MCH (RBC) [Entitic mass] 25.9 pg Critically low 26.7-34.0 [facility] Comment on above: Performed By: #### C BC #### [facility] [address] [place] [address] Dr. Dimple Parsons MCHC (RBC) [Mass/Vol] 33.0 g/dL Normal 29.9-35.2 [facility] Comment on above: Performed By: #### C BC #### [facility] [address] [place] [address] Dr. Dimple Parsons MCV (RBC) [Entitic vol] 78.5 fL Critically low 81.0-99.0 [facility] Comment on above: Performed By: #### C BC #### [facility] [address] [place] [address] Dr. Dimple Parsons MONO # 0.7 103/ul Normal 0.3-0.8 [facility] Comment on above: Performed By: #### C BC #### [facility] [address] [place] [address] Dr. Dimple Parsons Monocytes/100 WBC (Bld) 6.2 % Normal 1.7-12.0 [facility] Comment on above: Performed By: #### C BC #### [facility] [address] [place] [address] Dr. Dimple Parsons NEUT # 7.3 103/ul Critically high 1.4-6.5 [facility] Comment on above: Performed By: #### C BC #### [facility] [address] [place] [address] Dr. Dimple Parsons Neutrophils/100 WBC (Bld) 62.0 % Normal 43.0-75.[address] [facility] Comment on above: Performed By: #### C BC #### [facility] [address] [address] [address] Dimple Parsons Platelet mean volume (Bld) [Entitic vol] 9.1 fL Critically low 9.5-13.[address] [facility] Comment on above: Performed By: #### C BC #### [facility] [address] [address] [address] Dimple Parsons PLT 426 103/ul Normal 150-450 [facility] Comment on above: Performed By: #### C BC #### [facility] [address] [address] [address] Dimple Parsons RBC 4.94 106/ul Normal 4.20-5.[address] [facility] Comment on above: Performed By: #### C BC #### [facility] [address] [address] [address] Dimple Parsons WBC 11.9 103/ul Critically high 4.0-11.0 [facility] Comment on above: Performed By: #### C BC #### [facility] [address] [place] [address] ABD/PELVIS WO CONon [...] outpatient ultrasound. Note: Exam was submitted to [facility] operations Incidental Findings call que, to call the above findings to the patient's primary care provider nonemergently. Electronically authenticated by: REER CARLISLE Date: 2022-05-08 05:24 Normal [facility] PROF 14(COMP METB)on 023 Albumin [Mass/Vol] 4.0 g/dL Normal 3.4-5.0 [facility] Comment on above: Performed By: #### R EVRT3 #### [facility] [address] [place] [address] Dr. Dimple Parsons Albumin/Globulin [Mass ratio] 1.1 {ratio} Normal [facility] Comment on above: Performed By: #### R EVRT3 #### [facility] [address] [address] [address] Dimple Parsons ALP [Catalytic activity/Vol] 76 U/L Normal 46-[address] [facility] Comment on above: Performed By: #### R EVRT3 #### [facility] [address] [address] [address] Dimple Parsons ALT [Catalytic activity/Vol] 20 U/L Normal 14-[address] [facility] Comment on above: Performed By: #### R EVRT3 #### [facility] [address] [address] [address] Dimple Parsons Anion gap [Moles/Vol] 14.9 mmol/L Normal [facility] Comment on above: Performed By: #### R EVRT3 #### [facility] [address] [place] [address] Dr. Dimple Parsons AST [Catalytic activity/Vol] 19 U/L Normal 15-[address] [facility] Comment on above: Performed By: #### R EVRT3 #### [facility] [address] [place] [address] Dr. Dimple Parsons Bilirubin [Mass/Vol] 0.6 mg/dL Normal 0.2-1.[address] [facility] Comment on above: Performed By: #### R [id number] #### [facility] [address] [place] [address] Dr. Dimple Parsons Calcium [Mass/Vol] 9.0 mg/dL Normal 8.5-10.1 [facility] Comment on above: Performed By: #### R EVRT3 #### [facility] [address] [address] [address] Dimple Parsons Chloride [Moles/Vol] 103 mmol/L Normal 98-[address] [facility] Comment on above: Performed By: #### R EVRT3 #### [facility] [address] [address] [address] Dimple Parsons CO2 [Moles/Vol] 25.5 mmol/L Normal 21.0-32.0 [facility] Comment on above: Performed By: #### R EVRT3 #### [facility] [address] [address] [address] Dimple Parsons Creatinine [Mass/Vol] 0.75 mg/dL Normal 0.55-1.[address] [facility] Comment on above: Performed By: #### R EVRT3 #### [facility] [address] [address] [address] Dimple Parsons EGFR-AF SERBIAN >60 Normal >=60 [facility] Comment on above: Performed By: #### R EVRT3 #### [facility] [address] [address] [address] Dimple Parsons EGFR-NON AF SERBIAN >60 Normal >=[address] [facility] Comment on above: Performed By: #### R EVRT3 #### [facility] [address] [address] [address] Dimple Parsons Globulin (S) [Mass/Vol] 3.8 g/dL Normal [facility] Comment on above: Performed By: #### R EVRT3 #### [facility] [address] [address] [address] Dimple Parsons Glucose [Mass/Vol] 107 mg/dL Critically high 74-106 [facility] Comment on above: Performed By: #### R EVRT3 #### [facility] [address] [address] [address] Dimple Parsons Potassium [Moles/Vol] 3.4 mmol/L Critically low 3.5-5.[address] [facility] Comment on above: Performed By: #### R EVRT3 #### [facility] [address] [address] [address] Dimple Parsons Protein [Mass/Vol] 7.8 g/dL Normal 6.4-8.[address] [facility] Comment on above: Performed By: #### R EVRT3 #### [facility] [address] [address] [address] Dimple Parsons Sodium [Moles/Vol] 140 mmol/L Normal 136-[address] [facility] Comment on above: Performed By: #### R EVRT3 #### [facility] [address] [place], [place] [address] Dr. Dimple Parsons Urea nitrogen [Mass/Vol] 7.0 mg/dL Normal 7.0-18.[address] [facility] Comment on above: Performed By: #### R EVRT3 #### [facility] [address] [place], [place] [address] Dr. Dimple Parsons Urea nitrogen/Creatinine [Mass ratio] 9.3 mg/mg Normal [facility] Comment on above: Performed By: #### R EVRT3 #### [facility] [address] [place], [place] [address] Dr. Dimple Parsons US PELVIS TRANSVAGon 023 [...] not visualized. 3. Hysterectomy. Electronically authenticated by: LEATHA GALVAN Date: 2022-05-08 08:57 Normal [facility] XR ankle LT min 3V*on 2021 XR ankle LT min 3V* [facility] [place] [address] [place] [address] XRay Report Signed Patient: Karlene Vazquez MR#: [id number] : 1990 Acct:[id number] Age/Sex: 31 / F ADM Date: 02/21/22 Loc: XDUCLY Room: Type: [facility] Attending Dr: Treasure EAST Copies to: KITA [...] PROCESS. Impression dictated by: Hardik Inman Jr., DSahil02/21/2022 12:42 PM Dictation Location: [place] [address] Transcribed By: [facility] 02/21/22 124 Dictated By: Hardik Inman Jr, DO 02/21/22 124 Signed By: 02/21/22 1242 [facility] CBC AUTO DIFFon 01-13-2022 BASO # 0.1 103/ul Normal 0.0-0.[address] [facility] Comment on above: Performed By: #### C BC #### [facility] [address] [place] [address] Dr. Dimple Parsons Basophils/100 WBC (Bld) 0.5 % Normal 0.2-2.[address] [facility] Comment on above: Performed By: #### C BC #### [facility] [address] [place] [address] Dr. Dimple Parsons EO # 0.2 103/ul Normal 0.0-0.[address] [facility] Comment on above: Performed By: #### C BC #### [facility] [address] [place] [address] Dr. Dimple Parsons Eosinophils/100 WBC (Bld) 2.3 % Normal 0.9-7.[address] [facility] Comment on above: Performed By: #### C BC #### [facility] [address] [place] [address] Dr. Dimple Parsons Erythrocyte distribution width (RBC) [Ratio] 13.2 % Normal 11.0-15.[address] [facility] Comment on above: Performed By: #### C BC #### [facility] [address] [place] [address] Dr. Dimple Parsons Hematocrit (Bld) [Volume fraction] 40.5 % Normal 36.0-48.[address] [facility] Comment on above: Performed By: #### C BC #### [facility] [address] [place] [address] Dr. Dimple Parsons Hemoglobin (Bld) [Mass/Vol] 13.0 g/dL Normal 12.0-16.[address] [facility] Comment on above: Performed By: #### C BC #### [facility] [address] [place] [address] Dr. Dimple Parsons IG # 0.01 10e3/ul Normal 0.00-0.[address] [facility] Comment on above: Performed By: #### C BC #### [facility] [address] [place] [address] Dr. Dimple Parsons IG % 0.1 % Normal 0.0-0.[address] [facility] Comment on above: Performed By: #### C BC #### [facility] [address] [place] [address] Dr. Dimple Parsons LYMPH # 2.6 103/ul Normal 1.2-3.[address] [facility] Comment on above: Performed By: #### C BC #### [facility] [address] [place] [address] Dr. Dimple Parsons Lymphocytes/100 WBC (Bld) 27.4 % Normal 20.5-60.[address] [facility] Comment on above: Performed By: #### C BC #### [facility] [address] [place] [address] Dr. Dimple Parsons MANUAL DIFF REQ NO Normal [facility] Comment on above: Performed By: #### C BC #### [facility] [address] [place] [address] Dr. Dimple Parsons MCH (RBC) [Entitic mass] 26.4 pg Critically low 26.7-34.[address] [facility] Comment on above: Performed By: #### C BC #### [facility] [address] [place] [address] Dr. Dimple Parsons MCHC (RBC) [Mass/Vol] 32.1 g/dL Normal 29.9-35.[address] [facility] Comment on above: Performed By: #### C BC #### [facility] [address] [place] [address] Dr. Dimple Parsons MCV (RBC) [Entitic vol] 82.2 fL Normal 81.0-99.[address] [facility] Comment on above: Performed By: #### C BC #### [facility] [address] [place] [address] Dr. Dimple Parsons MONO # 0.6 103/ul Normal 0.3-0.[address] [facility] Comment on above: Performed By: #### C BC #### [facility] [address] [place] [address] Dr. Dimple Parsons Monocytes/100 WBC (Bld) 6.2 % Normal 1.7-12.[address] [facility] Comment on above: Performed By: #### C BC #### [facility] [address] [place] [address] Dr. Dimple Parsons NEUT # 6.1 103/ul Normal 1.4-6.[address] [facility] Comment on above: Performed By: #### C BC #### [facility] [address] [place] [address] Dr. Dimple Parsons Neutrophils/100 WBC (Bld) 63.5 % Normal 43.0-75.[address] [facility] Comment on above: Performed By: #### C BC #### [facility] [address] [place] [address] Dr. Dimple Parsons Platelet mean volume (Bld) [Entitic vol] 9.0 fL Critically low 9.5-13.[address] [facility] Comment on above: Performed By: #### C BC #### [facility] [address] [place] [address] Dr. Dimple Parsons PLT 346 103/ul Normal 150-450 [facility] Comment on above: Performed By: #### C BC #### [facility] [address] [place] [address] Dr. Dimple Parsons RBC 4.93 106/ul Normal 4.20-5.40 [facility] Comment on above: Performed By: #### C BC #### [facility] [address] [place] [address] Dr. Dimple Parsons WBC 9.5 103/ul Normal 4.0-11.[address] [facility] Comment on above: Performed By: #### C BC #### [facility] [address] [place] [address] Dr. Dimple Parsons FREE T4on 01-13-2022 Free T4 [Mass/Vol] 1.39 ng/dL Normal 0.76-1.46 [facility] Comment on above: Performed By: #### Jocelyne BC #### [facility] [address] [place] [address] Dr. Dimple Parsons PROF CHEM 8 (BAS METB)on Anion gap [Moles/Vol] 10.4 mmol/L Normal [facility] Comment on above: Performed By: ###Rick CADENA #### [facility] [address] [place] [address] Dr. Dimple Parsons Calcium [Mass/Vol] 9.0 mg/dL Normal 8.5-10.[address] [facility] Comment on above: Performed By: ###Rick CADENA #### [facility] [address] [place] [address] Dr. Dimple Parsons Chloride [Moles/Vol] 101 mmol/L Normal 98-107 [facility] Comment on above: Performed By: ###Rick CADENA #### [facility] [address] [place] [address] Dr. Dimple Parsons CO2 [Moles/Vol] 29.3 mmol/L Normal 21.0-32.0 [facility] Comment on above: Performed By: ###Rick CADENA #### [facility] [address] [place] [address] Dr. Dimple Parsons Creatinine [Mass/Vol] 0.79 mg/dL Normal 0.55-1.02 [facility] Comment on above: Performed By: ###Rick CADENA #### [facility] [address] [place] [address] Dr. Dimple Parsons EGFR-AF SERBIAN >60 Normal >=60 [facility] Comment on above: Performed By: #### Inder CADENA #### [facility] [address] [place] [address] [address] Dimple Parsons EGFR-NON AF SERBIAN >60 Normal >=[address] [facility] Comment on above: Performed By: #### Inder CADENA #### [facility] [address] [address] [address] Dimple Parsons Glucose [Mass/Vol] 92 mg/dL Normal 74-106 [facility] Comment on above: Performed By: #### Inder CADENA #### [facility] [address] [place] [address] [address] Dimple Parsons Potassium [Moles/Vol] 3.7 mmol/L Normal 3.5-5.[address] [facility] Comment on above: Performed By: #### Inder CADENA #### [facility] [address] [place] [address] [address] Dimple Parsons Sodium [Moles/Vol] 137 mmol/L Normal 136-[address] [facility] Comment on above: Performed By: #### Inder CADENA #### [facility] [address] [place] [address] [address] Dimple Parsons Urea nitrogen [Mass/Vol] 11.0 mg/dL Normal 7.0-18.[address] [facility] Comment on above: Performed By: #### Inder CADENA #### [facility] [address] [place] [address] [address] Dimple Parsons Urea nitrogen/Creatinine [Mass ratio] 13.9 mg/mg Normal [facility] Comment on above: Performed By: #### Inder CADENA #### [facility] [address] [place] [address] [address] Dimple Parsons PROTIMEon 01-13-2022 INR Coag (PPP) [Relative time] 1.04 {INR} Normal [facility] Comment on above: Performed By: #### P TT, PT #### [facility] [address] [place] [address] [address] Dimple Parsons INR GUIDELINES SEE BELOW Normal [facility] Comment on above: Result Comment: VISHAL RED INR: 2.0 - 3.0 CONDITIONS NOT LISTED BELOW 2.5 - 3.5 FOR PROSTHETIC HEART VALVE REPLACEMENT 2.5 - 3.5 RECURRENT THROMBOSIS Performed By: #### P TT, PT #### [facility] [address] [place] [address] Dr. Dimple Parsons PT Coag (PPP) [Time] 11.2 s Normal 9.0-11.[address] [facility] Comment on above: Performed By: #### P TT, PT #### [facility] [address] [place] [address] Dr. Dimple Parsons PTTon 01-13-2022 aPTT Coag (Bld) [Time] 35.1 s Normal 22.3-36.2 [facility] Comment on above: Performed By: #### P TT, PT #### [facility] [address] [place] [address] Dr. Dimple Parsons TSHon 01-13-2022 TSH 1.528 uIU/mL Normal 0.358-3.[address] [facility] Comment on above: Performed By: #### T SH #### [facility] [address] [place] [address] Dr. Dimple Parsons PAP ACOG PANEL 2: 30 to 65on 12-26-2021 . . Normal [facility] Comment on above: Result Comment: Perf ormed at: WB Performed By: #### C BC #### [facility] [address] [place] [address] Dr. Dimple Parsons Age Gdln ACOG Testing 30-[address] [facility] Comment on above: Performed By: #### C BC #### [facility] [address] [place] [address] Dr. Dimple Parsons DIAGNOSIS: Comment Normal [facility] Comment on above: Result Comment: NEGA TIVE FOR INTRAEPITHELIAL LESION OR MALIGNANCY. Performed at: WB Performed By: #### C BC #### [facility] [address] [place] [address] Dr. Dimple Parsons HPV Aptima Negative Normal Negative [facility] Comment on above: Result Comment: This nucleic acid amplification test detects fourteen high-risk HPV types (16,18,31,33,35,39,45,51,52,56,58,59,66,68) without differentiation. Performed at: =G Performed By: #### C BC #### [facility] [address] [place] [address] [address] Dimple Parsons Methodology: Comment Normal [facility] Comment on above: Result Comment: This liquid based ThinPrep(R) pap test was screened with the use of an image guided system. Performed at: WB Performed By: #### C BC #### [facility] [address] [place] [address] [address] Dimple Parsons Note: Comment Normal [facility] Comment on above: Result Comment: The [...] WB Performed By: #### C BC #### [facility] [address] [place] [address] [address] Dimple Parsons Performed by: Comment Normal [facility] Comment on above: Result Comment: Susan Hercules Prisoner Classification Interviewer (ASCP) Performed at: WB Performed By: #### C BC #### [facility] [address] [place], [place] [address] Dr. Dimple Parsons Specimen adequacy: Comment Normal [facility] Comment on above: Result Comment: Sati sfactory for evaluation. No endocervical component is identified. Performed at: WB Performed By: #### C BC #### [facility] [address] [id number] Dimple Parsons COVID Quick Testingon 2021 Result Negative [facility] Other Vital Signs Date Time Vital Sign Value Performing Clinician Facility 09-05-2024 13:46-0400 Body height 175.26 cm Saniya Mays APRN Work Phone: [facility] 09-05-2024 13:46-0400 Body mass index (BMI) [Ratio] 31.3 kg/m2 Saniya Mays COOKY MACHINE OPERATOR Work Phone: [facility] 09-05-2024 13:46-0400 Body temperature 98.8 [degF] Saniya Mays COOKY MACHINE OPERATOR Work Phone: [facility] 09-05-2024 13:46-0400 Body weight 96.16 kg Saniya Mays COOKY MACHINE OPERATOR Work Phone: [facility] 09-05-2024 13:46-0400 Diastolic blood pressure 80 mm[Hg] Saniya Mays COOKY MACHINE OPERATOR Work Phone: [facility] 09-05-2024 13:46-0400 Systolic blood pressure 124 mm[Hg] Saniya Mays COOKY MACHINE OPERATOR Work Phone: [facility] 08-14-2024 13:38-0400 Body mass index (BMI) [Ratio] 30.68 kg/m2 Yesica Aromas PA Work Phone: [facility] 08-14-2024 13:38-0400 Body weight 96.98 kg Yesica Xu PA Work Phone: [facility] 08-14-2024 13:38-0400 Diastolic blood pressure 84 mm[Hg] Yesica Aromas PA Work Phone: [facility] 08-14-2024 13:38-0400 Systolic blood pressure 122 mm[Hg] Yesica Aromas PA Work Phone: [facility] 07-23-2024 09:36-0400 Body mass index (BMI) [Ratio] 30.71 kg/m2 Brent Asuncion DO Work Phone: [facility] 07-23-2024 09:36-0400 Body weight 97.07 kg Brent Asuncion DO Work Phone: [facility] 07-23-2024 09:36-0400 Diastolic blood pressure 72 mm[Hg] Brent Asuncion DO Work Phone: [facility] 07-23-2024 09:36-0400 Systolic blood pressure 122 mm[Hg] Brent Asuncion DO Work Phone: [facility] 07-10-2024 10:02-0400 Body mass index (BMI) [Ratio] 31.13 kg/m2 Brent Asuncion DO Work Phone: [facility] 07-10-2024 10:02-0400 Body weight 95.62 kg Brent Asuncion DO Work Phone: [facility] 07-10-2024 10:02-0400 Diastolic blood pressure 84 mm[Hg] Brent Asuncion DO Work Phone: [facility] 07-10-2024 10:02-0400 Systolic blood pressure 124 mm[Hg] Brent Asuncion DO Work Phone: [facility] 05-16-2024 10:18-0500 Body height 175.26 cm [facility] 05-16-2024 10:18-0500 Body mass index (BMI) [Ratio] 29.9 kg/m2 [facility] 05-16-2024 10:18-0500 Body temperature 97.2 [degF] [facility] 05-16-2024 10:18-0500 Body weight 92.07 kg [facility] 05-16-2024 10:18-0500 Diastolic blood pressure 82 mm[Hg] [facility] 05-16-2024 10:18-0500 Heart rate 106 /min [facility] 05-16-2024 10:18-0500 SaO2% (BldA) [Mass fraction] 98 % [facility] 05-16-2024 10:18-0500 Systolic blood pressure 122 mm[Hg] [facility] 03-15-2024 11:31-0500 Body height 175.26 cm [facility] 03-15-2024 11:31-0500 Body mass index (BMI) [Ratio] 31.3 kg/m2 [facility] 03-15-2024 11:31-0500 Body temperature 96.5 [degF] [facility] 03-15-2024 11:31-0500 Body weight 96.27 kg [facility] 03-15-2024 11:31-0500 Diastolic blood pressure 72 mm[Hg] [facility] 03-15-2024 11:31-0500 Heart rate 92 /min [facility] 03-15-2024 11:31-0500 SaO2% (BldA) [Mass fraction] 97 % [facility] 03-15-2024 11:31-0500 Systolic blood pressure 122 mm[Hg] [facility] 02-15-2024 13:04-0500 Body height 175.26 cm [facility] 02-15-2024 13:04-0500 Body mass index (BMI) [Ratio] 31.8 kg/m2 [facility] 02-15-2024 13:04-0500 Body temperature 97.3 [degF] [facility] 02-15-2024 13:04-0500 Body weight 97.63 kg [facility] 02-15-2024 13:04-0500 Diastolic blood pressure 80 mm[Hg] [facility] 02-15-2024 13:04-0500 Heart rate 114 /min [facility] 02-15-2024 13:04-0500 SaO2% (BldA) [Mass fraction] 98 % [facility] 02-15-2024 13:04-0500 Systolic blood pressure 122 mm[Hg] [facility] 12-02-2023 10:38-0400 Body height 175.26 cm [facility] 12-02-2023 10:38-0400 Body mass index (BMI) [Ratio] 31.3 kg/m2 [facility] 12-02-2023 10:38-0400 Body weight 96.16 kg [facility] 12-02-2023 10:38-0400 Diastolic blood pressure 90 mm[Hg] [facility] 12-02-2023 10:38-0400 Heart rate 81 /min [facility] 12-02-2023 10:38-0400 Systolic blood pressure 133 mm[Hg] [facility] 10-10-2023 11:23-0400 Body height 175.26 cm [facility] 10-10-2023 11:23-0400 Body mass index (BMI) [Ratio] 31.1 kg/m2 [facility] 10-10-2023 11:23-0400 Body weight 95.84 kg [facility] 10-10-2023 11:23-0400 Diastolic blood pressure 70 mm[Hg] [facility] 10-10-2023 11:23-0400 Heart rate 98 /min [facility] 10-10-2023 11:23-0400 SaO2% (BldA) [Mass fraction] 98 % [facility] 10-10-2023 11:23-0400 Systolic blood pressure 128 mm[Hg] [facility] 10-03-2023 14:50-0400 Body height 175.26 cm [facility] 10-03-2023 14:50-0400 Body mass index (BMI) [Ratio] 31.3 kg/m2 [facility] 10-03-2023 14:50-0400 Body weight 96.16 kg [facility] 10-03-2023 14:50-0400 Diastolic blood pressure 86 mm[Hg] [facility] 10-03-2023 14:50-0400 Heart rate 85 /min [facility] 10-03-2023 14:50-0400 Systolic blood pressure 125 mm[Hg] [facility] 09-07-2023 13:03-0400 Body height 175.26 cm [facility] 09-07-2023 13:03-0400 Body mass index (BMI) [Ratio] 31.1 kg/m2 [facility] 09-07-2023 13:03-0400 Body weight 95.7 kg [facility] 09-07-2023 13:03-0400 Diastolic blood pressure 62 mm[Hg] [facility] 09-07-2023 13:03-0400 Heart rate 61 /min [facility] 09-07-2023 13:03-0400 SaO2% (BldA) [Mass fraction] 97 % [facility] 09-07-2023 13:03-0400 Systolic blood pressure 102 mm[Hg] [facility] 06-17-2023 14:03-0400 Body height 175.26 cm [facility] 06-17-2023 14:03-0400 Body mass index (BMI) [Ratio] 31.6 kg/m2 [facility] 06-17-2023 14:03-0400 Body weight 97.12 kg [facility] 06-17-2023 14:03-0400 Diastolic blood pressure 92 mm[Hg] [facility] 06-17-2023 14:03-0400 Heart rate 109 /min [facility] 06-17-2023 14:03-0400 Systolic blood pressure 136 mm[Hg] [facility] 04-04-2023 14:15-0500 Body height 175.26 cm Surya Hodges Other [facility] 04-04-2023 14:15-0500 Body mass index (BMI) [Ratio] 30.42 kg/m2 Surya Hodges Other [facility] [employer] Other 04-04-2023 14:15-0500 Body weight 93.44 kg Surya Hodges Other [facility] 04-04-2023 14:15-0500 Diastolic blood pressure 85 mm[Hg] Surya Hodges Other [facility] 04-04-2023 14:15-0500 Systolic blood pressure 120 mm[Hg] Surya Hodges Other [facility] 12-17-2022 08:30-0400 Body height 175.26 cm Surya Hodges Other [facility] [employer] Other 12-17-2022 08:30-0400 Body mass index (BMI) [Ratio] 29.5 kg/m2 Surya Hodges Other [facility] [employer] Other 12-17-2022 08:30-0400 Body weight 90.63 kg Surya Hodges Other [facility] [employer] Other 12-17-2022 08:30-0400 Diastolic blood pressure 85 mm[Hg] Surya Hodges Other [facility] [employer] Other 12-17-2022 08:30-0400 Systolic blood pressure 120 mm[Hg] Surya Hodges Other [facility] [employer] Other 12-01-2022 12:00-0400 Body temperature 97.6 [degF] MD Surya Hodges Work Phone: [facility] 12-01-2022 12:00-0400 Diastolic blood pressure 77 mm[Hg] MD Surya Hodges Work Phone: [facility] 12-01-2022 12:00-0400 Heart rate 89 /min MD Surya Hodges Work Phone: [facility] 12-01-2022 12:00-0400 Respiratory rate 20 /min MD Surya Hodges Work Phone: [facility] 12-01-2022 12:00-0400 SaO2% (BldA) [Mass fraction] 99 % MD Surya Hodges Work Phone: [facility] 12-01-2022 12:00-0400 Systolic blood pressure 116 mm[Hg] MD Surya Hodges Work Phone: [facility] 12-01-2022 05:51-0400 Body weight 89.4 kg MD Surya Hodges Work Phone: [facility] 11-30-2022 16:30-0400 Body height 175.26 cm MD Surya Hodges Work Phone: [facility] 11-29-2022 11:15-0400 Body height 175.26 cm Surya Hodges Other [facility] [employer] Other 11-29-2022 11:15-0400 Body mass index (BMI) [Ratio] 28.79 kg/m2 Surya Hodges Other [employer] Other 11-29-2022 11:15-0400 Body temperature 97.1 [degF] Surya Hodges Other [employer] Other 11-29-2022 11:15-0400 Body weight 88.45 kg Surya Hodges Other [employer] Other 11-29-2022 11:15-0400 Diastolic blood pressure 88 mm[Hg] Surya Hodges Other [employer] Other 11-29-2022 11:15-0400 SaO2% (BldA) [Mass fraction] 98 % Surya Hodges Other [employer] Other 11-29-2022 11:15-0400 Systolic blood pressure 124 mm[Hg] Surya Hodges Other [employer] Other 11-18-2022 08:30-0400 Body height 175.26 cm Surya Hodges Other [employer] Other 11-18-2022 08:30-0400 Body mass index (BMI) [Ratio] 28.59 kg/m2 Surya Hodges Other [employer] Other 11-18-2022 08:30-0400 Body weight 87.82 kg Surya Hodges Other [employer] Other 11-18-2022 08:30-0400 Diastolic blood pressure 89 mm[Hg] Surya Hodges Other [employer] Other 11-18-2022 08:30-0400 Systolic blood pressure 131 mm[Hg] Surya Hodges Other [employer] Other 11-05-2022 10:00-0400 Body height 175.26 cm Surya Hodges Other [employer] Other 11-05-2022 10:00-0400 Body mass index (BMI) [Ratio] 29.68 kg/m2 Surya Hodges Other [employer] Other 11-05-2022 10:00-0400 Body weight 91.17 kg Surya Hodges Other [employer] Other 11-05-2022 10:00-0400 Diastolic blood pressure 85 mm[Hg] Surya Hodges Other [employer] Other 11-05-2022 10:00-0400 Systolic blood pressure 134 mm[Hg] Surya Hodges Other [employer] Other 10-18-2022 08:30-0400 Body height 175.26 cm Surya Hodges Other [employer] Other 10-18-2022 08:30-0400 Body mass index (BMI) [Ratio] 28.94 kg/m2 Surya Hodges Other [employer] Other 10-18-2022 08:30-0400 Body weight 88.91 kg Surya Hodges Other [employer] Other 10-18-2022 08:30-0400 Diastolic blood pressure 89 mm[Hg] Surya Hodges Other [employer] Other 10-18-2022 08:30-0400 Systolic blood pressure 137 mm[Hg] Surya Hodges Other [employer] Other 09-09-2022 10:15-0400 Body height 175.26 cm Surya Hodges Other [employer] Other 09-09-2022 10:15-0400 Body mass index (BMI) [Ratio] 29.12 kg/m2 Surya Hodges Other [employer] Other 09-09-2022 10:15-0400 Body weight 89.45 kg Surya Hodges Other [employer] Other 09-09-2022 10:15-0400 Diastolic blood pressure 89 mm[Hg] Surya Hodges Other [employer] Other 09-09-2022 10:15-0400 Respiratory rate 12 /min Surya Hodges Other [employer] Other 09-09-2022 10:15-0400 Systolic blood pressure 132 mm[Hg] Surya Hodges Other [employer] Other 05-21-2022 10:01-0500 Blood Pressure Location Kamaljit ROMERO [facility] 05-21-2022 10:01-0500 Diastolic blood pressure 80 mm[Hg] Kamaljit ROMERO [facility] 05-21-2022 10:01-0500 Heart rate 85 /min Kamaljit ROMERO [facility] 05-21-2022 10:01-0500 Systolic blood pressure 119 mm[Hg] Kamaljit ROMERO [facility] 01-13-2022 08:36-0400 Blood Pressure Location SANIYA KAUFMAN [facility] 01-13-2022 08:36-0400 Diastolic blood pressure 90 mm[Hg] SANIYA MANDEEP [facility] 01-13-2022 08:36-0400 Heart rate 91 /min SANIYA MANDEEP [facility] 01-13-2022 08:36-0400 Respiratory rate 16 /min SANIYA KAUFMAN [facility] 01-13-2022 08:36-0400 Systolic blood pressure 134 mm[Hg] SANIYA MANDEEP [facility] 04-08-2021 15:30-0500 Body height 175.26 cm Treasure Pilar Other [facility] Other 04-08-2021 15:30-0500 Body mass index (BMI) [Ratio] 29.97 kg/m2 Treasure Pilar Other [employer] Other 04-08-2021 15:30-0500 Body temperature 96.6 [degF] Treasure Pilar Other [facility] Other 04-08-2021 15:30-0500 Body weight 92.08 kg Treasure Pilar Other [facility] Other 04-08-2021 15:30-0500 Respiratory rate 18 /min Treasure Pilar Other [facility] Other 04-08-2021 15:30-0500 SaO2% (BldA) [Mass fraction] 98 % Treasure Quezada Other [employer] Other Encounters Encounter Date Encounter Type Care Provider Facility Start: 09-05-2024 End: 09-05-2024 ambulatory Kamaljit ROMERO Facility:[id number] Start: 09-05-2024 End: 09-05-2024 Patient encounter procedure Saniya Mays APRN, CNP -[facility] Work Phone: Start: 08-23-2024 Non-patient / Non-visit Kamaljit Rob Gurmeet romero MD -[facility] Work Phone: Start: 08-14-2024 End: 08-14-2024 Bamboo flowsheet Yesica Becker PA Work Phone: [facility] Start: 08-14-2024 End: 08-14-2024 Bamboo flowsheet Yesica Becker PA Work Phone: [facility] Start: 08-14-2024 End: 08-14-2024 Postop follow up visit related to original px Yesica OSWALD Work Phone: [facility] Comment on above: Acute postoperative pain; Postoperative follow-up; Other insomnia Start: 08-14-2024 End: 08-14-2024 ambulatory YESICA BECKER Not Available Start: 08-02-2024 Non-patient / Non-visit [facility] Work Phone: Start: 08-02-2024 End: 08-02-2024 ambulatory Kamaljit ROMERO Facility:[id number] Start: 07-23-2024 End: 07-23-2024 Bamboo flowsheet Brent Asuncion DO Work Phone: [facility] Start: 07-23-2024 End: 07-23-2024 Bamboo flowsheet Brent Asuncion DO Work Phone: [facility] Start: 07-23-2024 End: 07-23-2024 Clinisync Result Encounter Brent Asuncion DO Work Phone: [facility] Unsolicited Start: 07-23-2024 Non-patient / Non-visit [facility] Work Phone: Start: 07-23-2024 End: 07-23-2024 ambulatory BRENT ASUNCION Not Available Start: 07-23-2024 End: 07-23-2024 Office outpatient visit 15 minutes Brent Asuncion DO Work Phone: [facility] Comment on above: Pre-op evaluation; Pelvic pain in female; Pain of ovary; H/O: hysterectomy Start: 07-23-2024 End: 07-23-2024 Preprocedural examination done Brent Asuncion DO Work Phone: [facility] Start: 07-10-2024 End: 07-10-2024 Bamboo flowsheet Brent Asuncion DO Work Phone: [facility] Start: 07-10-2024 End: 07-11-2024 Bamboo flowsheet Brent Asuncion DO Work Phone: [facility] Start: 07-10-2024 End: 07-11-2024 External Result Encounter Brent Asuncion DO Work Phone: [facility] Unsolicited Start: 07-10-2024 End: 07-10-2024 Office outpatient visit 15 minutes Brent Asuncion DO Work Phone: [facility] Comment on above: Pelvic pain Start: 07-10-2024 End: 07-10-2024 ambulatory BRENT ASUNCION Not Available Start: 07-03-2024 End: 07-03-2024 Clinisync Result Encounter Brent Asuncion DO Work Phone: [facility] External Department Unsolicited Start: 07-03-2024 End: 07-03-2024 Clinisync Result Encounter Brent Asuncion DO Work Phone: [facility] External Department Unsolicited Start: 05-16-2024 End: 05-16-2024 ambulatory [facility] Work Phone: Start: 05-16-2024 End: 05-16-2024 Patient encounter procedure [facility] Work Phone: Start: 03-15-2024 End: 03-15-2024 ambulatory [facility] Work Phone: Start: 03-15-2024 End: 03-15-2024 Patient encounter procedure [facility] Work Phone: Start: 02-15-2024 End: 02-15-2024 Patient encounter procedure [facility] Work Phone: Start: 12-02-2023 End: 12-02-2023 ambulatory [facility] Work Phone: Start: 12-02-2023 End: 12-02-2023 Patient encounter procedure [facility] Medical [facility] Work Phone: Start: 10-10-2023 End: 10-10-2023 Patient encounter procedure [facility] Work Phone: Start: 10-05-2023 Patient encounter status [facility] Start: 10-03-2023 End: 10-03-2023 ambulatory [facility] Work Phone: Start: 10-03-2023 End: 10-03-2023 Encounter for general adult medical examination without abnormal findings [facility] Start: 10-03-2023 End: 10-03-2023 Patient encounter procedure [facility] Work Phone: Start: 09-07-2023 End: 09-07-2023 ambulatory [facility] Work Phone: Start: 09-07-2023 End: 09-07-2023 Patient encounter procedure [facility] Work Phone: Start: 07-12-2023 Non-patient / Non-visit [facility] Work Phone: Start: 06-17-2023 End: 06-17-2023 ambulatory [facility] Work Phone: Start: 06-17-2023 End: 06-17-2023 Patient encounter procedure [facility] Work Phone: Start: 05-04-2023 End: 05-04-2023 ambulatory [facility] Work Phone: Start: 05-04-2023 End: 05-04-2023 Patient encounter procedure [facility] Work Phone: Start: 05-02-2023 Non-patient / Non-visit [facility] Work Phone: Start: 04-21-2023 End: 04-21-2023 Online digital e/m svc est pt <7 d 11-20 minutes Yesica OSWALD Work Phone: [facility] Comment on above: Insulin resistance; Metabolic syndrome; Hormone imbalance Start: 04-04-2023 End: 04-04-2023 ambulatory Suyra Hodges Other [facility] Other Start: 04-04-2023 Office outpatient vi sit 15 minutes Surya Hodges [facility] Start: 04-04-2023 End: 04-04-2023 Patient encounter procedure [facility]- Start: 03-11-2023 End: 03-11-2023 ambulatory Surya Hodges Other [facility] Other Start: 03-11-2023 Telephone encounter Surya Hodges [facility] Start: 03-11-2023 Patient encounter procedure [facility]- Start: 01-12-2023 End: 01-12-2023 ambulatory Surya Hodges Other [facility] Other Start: 01-12-2023 Telephone encounter Surya Hodges [facility] Start: 12-17-2022 End: 12-17-2022 ambulatory Surya Hodges Other [facility] Other Start: 12-17-2022 Office outpatient vi sit 15 minutes Surya Hodges [facility] Start: 11-30-2022 End: 12-01-2022 Evaluation and management of inpatient MD Surya Hodges Work Phone: [facility] Work Phone: Start: 11-30-2022 End: 12-01-2022 observation encounter MD Surya Hodges Work Phone: [facility] Work Phone: Start: 11-30-2022 End: 12-01-2022 ambulatory Baljinderclaudio Polanco [facility] Other Start: 11-30-2022 Telephone encounter Surya Hodges [facility] Start: 11-29-2022 End: 11-29-2022 ambulatory Surya Hodges Other [facility] Other Start: 11-29-2022 Office outpatient vi sit 15 minutes Surya Hodges [facility] Start: 11-29-2022 Telephone encounter Surya Hodges [facility] Start: 11-18-2022 End: 11-18-2022 ambulatory Surya Hodges Other [facility] Other Start: 11-18-2022 Office outpatient vi sit 10 minutes Surya Hodges [facility] Start: 11-05-2022 End: 11-05-2022 ambulatory Surya Hodges Other [facility] Other Start: 11-05-2022 Office outpatient vi sit 10 minutes Surya Hodges [facility] Start: 11-04-2022 End: 11-04-2022 ambulatory Surya Hodges Other [facility] Other Start: 11-04-2022 Telephone encounter Surya Hodges [facility] Start: 10-18-2022 End: 10-18-2022 ambulatory Surya Hodges Other [facility] Other Start: 10-18-2022 Office outpatient vi sit 10 minutes Suyra Hodges [facility] Start: 09-17-2022 End: 09-17-2022 ambulatory Surya Hodges Other [facility] Other Start: 09-17-2022 Telephone encounter Surya Hodges [facility] Start: 09-09-2022 End: 09-09-2022 ambulatory Surya Hodges Other [facility] Other Start: 09-09-2022 Office outpatient vi sit 15 minutes Surya Hodges [facility] Start: 06-18-2022 Encounter for other preprocedural examination DR BRENT ROLAND . [facility] Start: 06-16-2022 End: 06-16-[address] BRENT ROLAND . Facility:[facility] Start: 06-14-2022 End: 06-15-[address] BRENT RLOAND . Facility:[facility] Start: 06-14-2022 End: 06-15-2022 Encounter for other preprocedural examination DR BRENT ROLAND . Facility:[facility] Start: 06-04-2022 End: 06-05-[address] BRENT ROLAND . Facility:[facility] Start: 05-25-2022 End: 05-26-[address] BRENT ROLAND . Facility:[facility] Start: 05-21-2022 End: 05-21-2022 Patient encounter procedure Kaamljit ROMERO [facility] Start: 05-20-2022 End: 05-21-[address] SURYA HODGES Facility:[facility] Start: 05-08-2022 End: 05-08-[address] SURYA HODGES Facility:[facility] Start: 03-23-2022 End: 04-16-2022 ambulatory BRINA SHEIKH Facility:[facility] Start: 03-16-2022 End: 03-16-2022 ambulatory Surya Hodges Other [facility] Other Start: 03-16-2022 Office outpatient vi sit 15 minutes Surya Hodges [facility] Start: 12-15-2022 Gynecological examination normal Surya Hodges Other [facility] Other Start: 02-25-[address] SURYA HODGES Facil ity:[facility] Start: 02-21-2022 End: 02-21-2022 ambulatory Treasure Pilar Facility:[facility] Start: 02-21-2022 End: 02-21-2022 ambulatory MD Surya Hodges Work Phone: [facility] Work Phone: Start: 02-21-2022 End: 02-21-2022 Patient encounter procedure MD Surya Hodges Work Phone: [facility] Start: 01-13-2022 End: 01-14-[address] BRENT ROLAND . Facility:[facility] Start: 01-13-2022 End: 01-13-2022 Patient encounter procedure SANIYA KAUFMAN [facility] Start: 12-21-2021 End: 12-21-[address] BRENT ROLAND . Facility: Start: 04-08-2021 (URG) Urgent Care Visit Treasure pimentel [facility] Start: 04-08-2021 End: 04-08-2021 ambulatory Treasure Quezada Other [facility] Other Start: 05-16-2020 Pre-procedure evalua tion check Surya Hodges Other [facility] Other Procedures Date Procedure Procedure Detail Performing Clinician Start: 07-23-2024 ALL CBC WITH AUTO DIFF Brent Asuncion DO Work Phone: Start: 07-23-2024 ECG 12-LEAD Brent Fazi o DO Work Phone: Start: 07-10-2024 RECURRENT VAGINITIS (HTRX) Brent Asuncion DO Work Phone: Start: 07-10-2024 Urnls dip stick/tabl et rgnt non-auto w/o micrscp Brent Asuncion DO Work Phone: Start: 07-03-2024 US PELVIS W/ TRANSVAGINAL Brent Anguloo DO Work Phone: Start: 12-28-2022 Microscopic observat ion [Identifier] in Cervix by Cyto stain Brent Roland DO Work Phone: Start: 12-28-2022 Cytp cerv/vag auto t hin layer prep mnl screen Brent Roland DO Work Phone: Start: 11-30-2022 Ultrasonography of liver MD Surya Hodges Work Phone: Start: 11-30-2022 Respiratory Panel (PCR) MD Surya Hodges Work Phone: Start: 11-30-2022 Plain chest X-ray MD Kike Hodges Work Phone: Start: 02-21-2022 X-ray of left ankle MD Surya Hodges Work Phone: Start: 01-19-2022 Injection of urethra Margret ROMERO Appendectomy SANIYA KAUFMAN Cholecystectomy SANIYA PER HARSHAD Depression screening Surya Hodges Other H/O: hysterectomy H/O: hysterectomy Brent Roland DO Work Phone: Hysterectomy SANIYA WALDRONRY Hysterectomy Surya Hodges Other Insertion of intraut erine contraceptive device Surya Hodges Other MRI guided ablation of uterine fibroid SANIYA MANDEEP End: 06-01-2018 Removal of intrauterine device Surya Hodges Other Plan of Treatment Date Care Activity Detail Author Start: 12-28-2025 Screening for malign ant neoplasm of cervix [facility] Start: 11-12-2024 Influenza vaccination Influenz a Vaccine (Season Ended) [facility] Start: 10-09-2024 End: 10-09-2024 Patient encounter procedure 10/09/2024 1:00 PM EDT Office Visit [facility] [address] [place] [id number] Brent Roland, DO [address] [place] [address] [facility] Start: 08-14-2024 End: 08-14-2024 Patient encounter procedure 08/14/2024 1:20 PM EDT Office Visit [facility] [address] [place] [phone] Yesica Becker PA [address] [facility] [address] [place], [place] [id number] Arrived [facility] Comment on above: Arrived Start: 07-10-2024 End: 07-10-2024 Patient encounter procedure 07/10/2024 10:00 AM EDT Office Visit [facility] [address] [place] [phone] Brent Roland, DO [address] [place] [address] Arrived [facility] Comment on above: Arrived Start: 12-01-2022 [facility] Start: 11-30-2022 Hospital admission [facility] Start: 11-12-2022 Influenza vaccination Influenza Vacc ine (#1) [facility] Start: 06-10-2019 Screening for malign ant neoplasm of cervix [facility] Start: 2010 Screening for malign ant neoplasm of cervix Pap Smear [facility] CBC W Auto Different ial panel - Blood CBC and differential Lab Routine Metabolic syndrome Hormone imbalance Ordered: 04/21/2023 [facility] Work Phone: Comment on above: Ordered: 04/21/2023 CHLAMYDIA TRACHOMATI S (GENITO/STI) CHLAMYDIA TRACHOMATIS (GENITO/STI) Lab Routine Pelvic pain Ordered: 07/10/2024 [facility] Comment on above: Ordered: 07/10/2024 Comprehensive metabo lic 1999 panel - Serum or Plasma [facility] Comprehensive metabo lic 1999 panel - Serum or Plasma [facility] Comprehensive metabo lic 1999 panel - Serum or Plasma Comprehensive metabolic panel Lab Routine Pre-op evaluation Pelvic pain in female H/O: hysterectomy Ordered: 07/23/2024 [facility] Work Phone: Comment on above: Ordered: 07/23/2024 Neisseria gonorrhoea e DNA [Presence] in Unspecified specimen by LEO with probe detection Neisseria gonorrhea DNA probe, direct Lab Routine Pelvic pain Ordered: 07/10/2024 [facility] [employer] Comment on above: Ordered: 07/10/2024 Patient Education Mediterranean Diet Hyperthyroidism (Overactive Thyroid) (DC) Propranolol Prediabetes (DC) [facility] Work Phone: Patient referral [facility] Work Phone: SURESWAB(R) ADVANCED VAGINITIS PLUS, TMA SURESWAB(R) ADVANCED VAGINITIS PLUS, TMA Pathology and Cytology Routine Pelvic pain Ordered: 07/10/2024 [facility] [employer] Work Phone: Comment on above: Ordered: 07/10/2024 XR Knee - left 4 Views [facility] Immunizations Immunization Date Immunization Notes Care Provider Fa cility 04-20-2021 SARS-CoV-2 (COVID-19 ) mRNA BNT-162b2 vax SANIYA KAUFMAN [facility] Comment on above: Result Comment: 2021: TPVALL 08-14-2020 SARS-CoV-2 (COVID-19 ) Ad26 vaccine, recombinant SANIYA KAUFMAN [facility] Comment on above: Result Comment: 2021: TPVALL Payers Date Payer Category Payer Self-pay [id number] 2021 Blue Cross Blue Shield BCBS [id number] 2021 Unknown BCBS BCBS [id number] 2021-Present [phone] [id number] [place] [id number]. 2.7.3.745929.315 1989 Unknown [id number] 2.16.840.1.532683.3.579. 2.593 1989 Unknown [id number] 2.16.840.1.223648.3.579. 2.593 1989 Unknown [id number] 2.16.840.1.778834.3.579. 2.593 1989 Unknown [id number] 2.16.840.1.133731.3.579. 2.593 1989 Unknown [id number] 2.16.840.1.518190.3.579. 2.593 1989 Unknown [id number] 2.16.840.1.101989.3.579. 2.593 1989 Unknown [id number] 2.16.840.1.137651.3.579. 2.593 1989 Unknown [id number] 2.16.840.1.756632.3.579. 2.593 1989 Unknown [id number] 2.16.840.1.946101.3.579. 2.593 1989 Unknown [id number] 2.16.840.1.729240.3.579. 2.593 1989 Unknown [id number] 2.16.840.1.388690.3.579. 2.593 1989 Unknown [id number] 2.16.840.1.600279.3.579. 2.593 1989 Unknown [id number] 2.16.840.1.494963.3.579. 2.727 1989 Unknown [id number] 2.16.840.1.145209.3.579. 2.1259 1989 Unknown [id number] 2.16.840.1.719956.3.579. 2.1259 1989 Unknown [id number] 2.16.840.1.305242.3.579. 2.1259 1959 Blue Cross Blue Shield DZNAN [id number] 2.16.840.1.800229.19 Unknown Harpal BC/BS [id number] Unknown [id number] 2.16.840.1.081381.3.579. 2.531 Unknown [id number] 2.16.840.1.005356.3.579. 2.531 Social History Date Type Detail Facility Unknown if ever smoked [facility] Start: 02-09-2023 End: 07-10-2024 Sex Assigned At [facility] Start: 01-13-2022 End: 09-07-2023 Tobacco smoking status Never smoked tobacco (finding) [facility] Tobacco smoking status Never [facility] Start: 1990 Sex Assigned At Female F [facility] Start: 02-09-2023 End: 08-07-2024 Alcohol intake Ex-drinker (finding) [facility] Start: 02-09-2023 End: 07-10-2024 History of Social function [facility] Start: 09-24-2022 Alcohol Comment occasional: dr kam wine & beer [facility] Start: 09-27-2022 Gender identity Identifies as female gender (finding) [facility] Start: 03-15-2024 End: 05-16-2024 Sex Female (finding) [facility] Goals Date Patient Goal Desired Activity /State Functional Status Date Assessment Result Facility 12-01-2022 Functional status Patient at Baseline [facility] Work Phone: 05-21-2022 Functional Status N/A [facility] 01-13-2022 Functional Status N/A [facility] Mental Status Date Assessment Result Facility 12-01-2022 Cognitive function Cognitive Sta tus Patient at Baseline [facility] Work Phone: Clinical Notes 04-08-2021 to 08-14-2024 MARGRET Canales - 08/14/2024 1:20 PM EDCamryn Tomlinson - 07/23/2024 9:00 AM EDTLeatha Blair LPN - 07/10/2024 10:00 AM EDT Note Date & Type Note Facility 08-14-2024 History of Presen t illness Narrative Reason for Appointment: Patient ID: Tootie Vazquez is a 34 y.o. female who presents [...] chew, or split. ALLERGIES Allergies Allergen Reactions Avychhb-Uicxrm-Nxjgb Pertussis Swelling Tetanus-Diphtheria Toxoids Td Other Azithromycin [...] retrograde, left ureteroscopy, left stent per dr romero PAP SMEAR 12/01/2020 negative, HPV negative SALPINGECTOMY [...] Vitals: Estimated body mass index is 30.71 kg/m as calculated from the following: Height [...] cysto/ureteroscopy, Rt ureteroscopy, Lt retrograde, Lt ureteroscopy, Lt stent per Dr. Romero. Patient scheduled to have stent removed on 09/06/24. Pain is tolerable but having some trouble with sleep, we will send ambien to help Documented by Laney Chow LPN on behalf of: MARGRET Canales documented in this encounter [facility] 07-23-2024 History of Presen t illness Narrative Reason for Appointment: Patient ID: Tootie Vazquez is a 34 y.o. female who presents for Pre-op Visit (Pt present today for a pre operative visit.) Patient presents today for Pre Op appointment. Patient is scheduled to undergo Diagnostic Laparoscopy, possible ABHAY, possible FOE, possible BSO, possible exploratory laparotomy & exam under anesthesia ([facility] with Dr. Romero) on 08/02/[address] Roland at [facility]. MEDICATIONS Current Outpatient Medications Medication Instructions Black [...] chew, or split. ALLERGIES Allergies Allergen Reactions Wmxrdek-Llhlou-Eipue Pertussis Swelling Tetanus-Diphtheria Toxoids Td Other Azithromycin Rash Clindamycin Rash PROBLEMS Active Ambulatory Problems Diagnosis Date Noted No [...] Past Surgical History: Procedure Laterality Date APPENDECTOMY 2007 CHOLECYSTECTOMY 2013 CYST REMOVAL 2008 ENDOMETRIAL ABLATION 06/30/2018 HYSTERECTOMY 12/28/2019 LAPAROSCOPY DIAGNOSTIC / BIOPSY / ASPIRATION / LYSIS 06/16/2022 Diagnostic Lap PAP SMEAR 12/01/2020 negative, HPV negative SALPINGECTOMY Bilateral 12/28/2019 TUBAL LIGATION Bilateral 2012 REVIEW OF SYSTEMS Review of Systems: Review of Systems Constitutional: Negative. HENT: Negative. Eyes: Negative. Respiratory: Negative. Cardiovascular: Negative. Gastrointestinal: Negative. Genitourinary: Positive for pelvic pain. Musculoskeletal: Negative. Skin: Negative. Neurological: Negative. All other systems reviewed and are negative. Hematological: Negative. Endocrine: Negative. Allergic/Immunologic: Negative. OBJECTIVE Objective: Physical Exam Constitutional: Appearance: Normal appearance. She is well-developed. Cardiovascular: Rate and Rhythm: Normal rate and regular rhythm. Pulmonary: Effort: Pulmonary effort is normal. Breath sounds: Normal breath sounds. Abdominal: General: Bowel sounds are normal. There is no distension. Palpations: Abdomen is soft. Tenderness: There is no abdominal tenderness. There is no guarding or rebound. Musculoskeletal: General: No swelling. Normal range of motion. Right lower leg: No edema. Left lower leg: No edema. Neurological: Mental Status: She is alert and oriented to person, place, and time. Skin: General: Skin is warm and dry. Psychiatric: Mood and Affect: Mood normal. Behavior: Behavior normal. Vitals and nursing note reviewed. Exam conducted with a carton forming machine operator present. Vitals: Estimated body mass index is 30.71 kg/m as calculated from the following: Height as of 06/21/23: 5' 10 . Weight as of this encounter: 214 lb. BP: 122/72 No LMP recorded. Patient has had a hysterectomy. ASSESSMENT & PLAN ICD-10-CM 1. Pre-op evaluation Z01.818 2. Pelvic pain in female R10.2 3. Pain of ovary N94.89 4. H/O: hysterectomy Z90.710 Pre Op: Patient is doing well but has complaints of ovary pain following hysterectomy. I have discussed conservative management vs. surgical management with the patient in detail and patient desires surgical management at this time. Patient will undergo Diagnostic Laparoscopy, possible ABHAY, possible FOE, possible BSO, possible exploratory laparotomy and exam under anesthesia ([facility] with Dr. Romero) on 08/02/2024. Surgical consents were signed, mmc was reviewed, and patient is to proceed to [facility]. Follow Up: Patient is to follow up between 1-2 weeks post operative to assess proper healing and recovery from procedure. Documented by Laney Chow LPN on behalf of: Brent Roland DO documented in this encounter [facility] 07-10-2024 History of Presen t illness Narrative Reason for Appointment: Patient ID: Tootie Vazquez is a 34 y.o. female who presents for Pelvic Pain (Left sided) Patient presents today for Acute Visit. and STD Check. MEDICATIONS Current Outpatient Medications Medication Instructions Black Cohosh 20 MG tablet 1 tablet, Daily dicyclomine (BENTYL) 10 mg, Oral, 3 times daily PRN Ergocalciferol (VITAMIN D2 PO) 1 tablet, Daily levothyroxine (SYNTHROID, LEVOXYL) 137 mcg, Daily before breakfast liothyronine (CYTOMEL) 5 mcg, Oral, Daily ALLERGIES Allergies Allergen Reactions Adacel [Ebkeayt-Jrsglw-Eduyl Pertussis] Swelling Clindamycin Rash PROBLEMS Active Ambulatory Problems Diagnosis Date Noted No [...] Past Surgical History: Procedure Laterality Date APPENDECTOMY 2007 CHOLECYSTECTOMY 2012 CYST REMOVAL 2007 ENDOMETRIAL ABLATION 06/30/2018 HYSTERECTOMY 12/28/2019 LAPAROSCOPY DIAGNOSTIC / BIOPSY / ASPIRATION / LYSIS 06/16/2022 Diagnostic Lap PAP SMEAR 12/01/2020 negative, HPV negative SALPINGECTOMY Bilateral 12/28/2019 TUBAL LIGATION Bilateral 2012 REVIEW OF SYSTEMS Review of Systems: Review of Systems Constitutional: Negative. HENT: Negative. Eyes: Negative. Respiratory: Negative. Cardiovascular: Negative. Gastrointestinal: Negative. Genitourinary: Positive for dyspareunia and pelvic pain. Musculoskeletal: Negative. Skin: Negative. Neurological: Negative. All other systems reviewed and are negative. Hematological: Negative. Endocrine: Negative. Allergic/Immunologic: Negative. OBJECTIVE Objective: Physical Exam Constitutional: Appearance: Normal appearance. She is well-developed. Genitourinary: Vulva normal. Vaginal cuff intact. Cervix is absent. Uterus is absent. Cardiovascular: Rate and Rhythm: Normal rate and regular rhythm. Abdominal: General: Bowel sounds are normal. There is no distension. Palpations: Abdomen is soft. Tenderness: There is no abdominal tenderness. There is no guarding or rebound. Musculoskeletal: General: No swelling. Normal range of motion. Right lower leg: No edema. Left lower leg: No edema. Neurological: Mental Status: She is alert and oriented to person, place, and time. Skin: General: Skin is warm and dry. Psychiatric: Mood and Affect: Mood normal. Behavior: Behavior normal. Vitals and nursing note reviewed. Exam conducted with a carton forming machine operator present. Vitals: Estimated body mass index is 31.13 kg/m as calculated from the following: Height as of 23: 5' 9 . Weight as of this encounter: 210 lb 12.8 oz. BP: 124/84 No LMP recorded. Patient has had a hysterectomy. ASSESSMENT & PLAN ICD-10-CM 1. Pelvic pain R10.2 SURESWAB(R) ADVANCED VAGINITIS PLUS, TMA CHLAMYDIA TRACHOMATIS (GENITO/STI) Neisseria gonorrhea DNA probe, direct POCT urinalysis dipstick manually resulted Pt has complaints of left sided pelvic pain that has been occurring for awhile. Cultures obtained. Pt to be scheduled for dx lap with poss abhay poss foe, poss left ovarian removal with stent placement. Pt to return for preop. Rx for tylenol with codeine and motrin 800 faxed to pharmacy. Documented by Leatha Blair LPN on behalf of: Brent Roland DO documented in this encounter [facility] 03-15-2024 Evaluation note Diagnosis Onset Date Resolution Obesity (BMI 30.0-34.9) acute J anuary 2024 11:26am Hypothyroidism acute May 16, 2024 10:00am Screening for lipid disorders acute May 16, 2024 10:00am Screening for metabolic disorder acute May 16, 2024 10:00am Screening, deficiency anemia, iron acute May 16, 2024 10:00am Vitamin D deficiency acute Gabino 2024 10:00am [facility] Work Phone: 1(331) 548-224412-04-2024 Evaluation note* Diagnosis Onset Date Resolution Status Admit Date Bronchitis acute February 15, 2024 1:00pm Maxillary sinusitis acute Decem 2023 1:00pm Obesity (BMI 30.0-34.9) acute D ecember 2023 1:00pm [facility] Work Phone: 1(543) 671-684502-08-2024 History of Present illness Narrative* MARGRET Canales - 04/21/2023 8:50 AM EST Reason for Appointment: Patient ID: Tootie Vazquez is a 32 y.o. female who presents for telehealth follow up Patient presents today via telephone call for a telehealth appointment. Patients Phone #: [phone] (mobile) Current Medications: has a current medication [...] History: Procedure Laterality Date APPENDECTOMY 2008 CHOLECYSTECTOMY 2012 CYST REMOVAL 2008 ENDOMETRIAL ABLATION 06/30/2018 HYSTERECTOMY 12/28/2019 LAPAROSCOPY DIAGNOSTIC / BIOPSY / ASPIRATION / LYSIS 06/16/2022 Diagnostic Lap PAP SMEAR 12/01/2020 negative, HPV negative SALPINGECTOMY Bilateral 12/28/2019 TUBAL LIGATION Bilateral 2012 Allergies Allergen Reactions Adacel [Qvgqsql-Juwkkf-Jhgjg Pertussis] Swelling Clindamycin Rash Vitals: Estimated body [...] for cbc check for kidney function to [facility]. Pt aware and agrees to have blood work obtained. She will follow up in office in 3 months Documented by MARGRET Canales on behalf of: MARGRET Canales * Hedy Carter MA - 04/21/2023 8:50 AM EST Cbc order was sent to [facility] for pt to have [facility]. [id number] note* Encounter Date Diagnosis Assessment Notes Treatment Notes Treatment Clinical Notes Mar, Bronchitis (ICD-10 - J40) Discussed diagnosis with patient. Finish entire course of antibiotic. Proair inhaler sent today for patient to use PRN cough/wheezing/short ness of breath. Tessalon Pearles ordered to take as needed for cough. Increase fluids and rest. Qide-aej-yasfexf antipyretics as needed. Warning signs and symptoms reviewed with patient today. Patient to go immediately to the ER should she experience any of these. Patient to notify office should her symptoms persist and not improve. Patient verbalizes understanding and agrees to treatment plan. Mar, Vaginal yeast infection (ICD-10 - B37.31) Pt requests diflucan to cover probable yeast infection w antibiotic. [facility] 12-29-2023 Evaluation note* Encounter Date Diagnosis Assessment Notes Treatment Notes Treatment Clinical Notes Feb, Sore throat (ICD-10 - J02.9) [facility] 10-06-2023 Evaluation note* Encounter Date Diagnosis Assessment Notes Treatment Notes Treatment Clinical Notes Dec, Hypothyroidism (ICD-10 - E03.9) Recheck in next 4-6 weeks. Continue healthy diet and exercise. [facility] 09-20-2023 Discharge summary Author Baljinder Polanco [facility] December 01, 2022 5:19pm Note Date/Time December 01, 2022 1:02pm [facility] [address] [place], [place] [id number] Discharge Summary Signed Patient: Karlene Vazquez MR#: [id number] : 1990 Acct:[id number] Age/Sex: 32 / F Adm Date: 3 Loc: Room: [address] [place] [address]: Baljinder Polanco MD Copies to: [...] Clear, Urine pH >= 9.0, Ur Specific Constantine 1.013, Urine Protein Negative, Urine Glucose (UA) [...] % (Auto) 59.2, Lymph % (Auto) 32.3, Clarendon % (Auto) 6.8, Eos % (Auto) 0.9, Baso % (Auto) 0.8, Nucleat RBC Rel Count 0.2, Neut # (Auto) 4.9, Lymph # (Auto) 2.7, Cla[place]on # (Auto) 0.6, Eos # (Auto) 0.1, Baso # (Auto) 0.1, Monocyte Dist Width19.22 11/30/22 13:00: PHA Creatinine Clear 114.08, Sodium 138, Potassium 4.1, Wybskswu511, Carbon Dioxide 23.9, Anion Gap 14.2, BUN 9, Creatinine 0.83, Est GFR (CKD-EPI) > 60.0, Glucose 77, Calcium 9.5, Magnesium 1.9, Total Bilirubin 0.9, DirectBilirubin 0.00 L, Indirect Bilirubin 0.9, AST 11 L, ALT 16, Alkaline Yfkibfqgckz03, Total Protein 7.6, Albumin 4.4, Globulin 3.2, [...] needed.) Documented By: Baljinder Polanco MD 12/01/22 0741 Signed By: <Electronically signed by Baljinder Polanco MD> 12/01/22 4341 [facility] Work Phone: 1(891) 569-996409-19-2023 History and physical note Author Baljinder Polanco [facility] November 30, 2022 4:34pm Note Date/Time November 30, 2022 4:34pm [facility] [address] [place] [address] Hospitalist H&P Signed Patient: Karlene Vazquez MR#: [id number] : 1990 Acct:[id number] Age/Sex: 32 / F Adm Date: 3 Loc: 3T Room: [address] [place] [address] Type: ADM IN Attending Dr: Baljinder Polanco [...] rub or JVD. Peripheral pulses present bilaterally. Baoqu-am-jdfc ultrasound is unremarkable. Lungs are clear to [...] her symptoms. DVT prophylaxis Xarelto [facility] Medical History (Updated 11/30/22 @ 15:13 by Marcio Steven DO) Thyroid disease Surgical History (Updated 11/30/22 @ 13:04 by Javier Mcwilliams, FABBY) H/O: hysterectomy Family History (Updated 11/30/22 @ 15:53 by Maura Bella, FABBY) Grandparent Myocardial infarction Hx of CABG Colon [...] % (Auto) 32.3 % (.) 11/30/22 13:00 Clarendon % (Auto) 6.8 % (.) 11/30/22 13:00 Eos % (Auto) 0.9 % (.) 11/30/22 13:00 Baso % (Auto) 0.8 % (.) 11/30/22 13:00 Nucleat RBC Rel Count 0.2 /100 WBC (0-0.5) 11/30/22 13:00 Neut # (Auto) 4.9 x10E3/uL (1.8-7.7) 11/30/22 13:00 Lymph # (Auto) 2.7 x10E3/uL (1.00-4.8) 11/30/22 13:00 Clarendon # (Auto) 0.6 x10E3/uL (0.0-0.8) 11/30/22 13:00 [...] >= 9.0 (5.0-9.0) 11/30/22 16:04 Ur Specific Constantine 1.013 (1.001-1.030) 11/30/22 16:04 Urine Protein Negative [...] signed by Baljinder Polanco MD> 11/30/22 1634 [facility] Work Phone: 1(319) 312-825309-18-2023 Evaluation note* Encounter Date Diagnosis Assessment Notes [...] - E03.9) 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 Complete all doses. Wash all belongings that came in contact with plant oils. May continue to use Calamine lotion. Patient verbalized understanding and agreement with treatment plan. [facility] 08-07-2023 Evaluation note* Encounter Date Diagnosis [...] to ER and Follow-up with me immediately. [facility] 07-07-2023 Evaluation note* Encounter Date Diagnosis Assessment Notes Treatment Notes Treatment Clinical Notes Sep, Overweight (ICD-10 - E66.3) Sep, Body mass index [BMI] 29.0-29.9, adult (ICD-10 - Z68.29) [facility] 06-29-2023 Evaluation note* Encounter Date Diagnosis Assessment Notes Treatment Notes Treatment Clinical Notes Aug, Acute contact dermatitis (ICD-10 - L25.9) Take medications as directed. Complete all doses. Wash all belongings that came in contact with plant oils. May continue to use Calamine lotion. Patient verbalized understanding and agreement with treatment plan. [facility] 04-05-2023 NoteOPERATIVE NOTE OPERATION DATE: 06/16/2022 PROCEDURE: Diagnostic laparoscopy. PREOPERATIVE DIAGNOSIS: Pelvic pain, left ovarian cyst. POSTOPERATIVE DIAGNOSIS: Pelvic pain, left ovarian cyst. ANESTHESIA: General. SURGEON: Brent Roland D.O. POST CLOSER: MIRNA Harden URINE OUTPUT: Yellow and clear. [...] [id number] Discharge instructions Patient Education 05/21/2022 10:45:43 Kidney Stones, Llkv-fm-Qfir Kidney Stones Kidney stones are rock-like masses [...] Follow these instructions at home: Medicines Take ojxs-tcq-ujtxdyk and prescription medicines only as told by [...] 08/16/2008 Document Revised: 07/17/2019 Document Reviewed: 07/17/2019 [employer] Patient Education 2020 [employer] Follow Up Care 05/11/2022 13:32:37 With:LUCY STILES, Kamaljit Rivas, URL Address: [address] [place] [address]- When: Unknown [facility] 01-03-2023 Evaluation note* Encounter Date Diagnosis Assessment Notes Treatment Notes Treatment Clinical Notes Mar, Pharyngitis, unspecified etiology (ICD-10 - J02.9) New medications as directed. Increase fluids, rest, good hand washing. OTC for fever/discomfort. 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 F/U if no improvement in the next 72 hours Mar, Vaginal yeast infection (ICD-10 - B37.31) Will treat empirically for yeast, discharge and sx reported consistent with that of vaginal candidiasis. Instructed patient to take as directed, advised that she should feel improvement in about 2 days. [facility] 11-02-2022 Hospital Discharge instructions Patient Education 01/13/2022 11:03:33 [...] 02/14/2013 Document Revised: 10/18/2018 Document Reviewed: 10/18/2018 [employer] Patient Education 2020 [employer]. Follow Up Care 01/11/2022 14:36:11 With:[facility] Address: [address] [address] Business (1) When: Unknown Comments:for procedure as scheduled [facility] 01-26-2022 Evaluation note* Encounter Date Diagnosis [...] care instructions given in writting by [facility] Care At Home document. [facility] Evaluation + Plan note No data available for this section [facility] evaluation + Plan note Future Appointments Appointment Date:09/03/2022 08:00:00 AM Scheduled Provider:Kamaljit ROMERO MD Location:[facility] Appointment Type:URO Office Visit [facility] evaluation noteNo assessment information available [facility] Work Phone: evaluation noteNo InformationNortShrin[facility] [employer] Other evaluation note* Diagnosis Onset Date Resolution Status Chest pain acute Tachycardia acute [facility] Work Phone: evaluation note* Diagnosis Insulin resistance Other abnormal glucose Metabolic syndrome Dysmetabolic Syndrome X Hormone imbalance [facility] Diagnosis Onset Date Resolution Status Allergic reaction due to antibacterial drug acute Streptococcus pharyngitis ac jacinda [facility] Work Phone: evaluation note* Diagnosis Onset Date Resolution Status Anxiety acute Thyroid disease acute Migraines acute Screening for lipid disorders acute Screening for metabolic disorder acute Screening, deficiency anemia, iron acute [facility] Work Phone: evaluation note* Diagnosis Onset Date Resolution Status Migraines acute Screening for lipid disorders acute Screening for metabolic disorder acute Screening, deficiency anemia, iron acute Left knee pain acute [facility] Work Phone: evaluation note* Diagnosis Onset Date Resolution Status Migraines acute Screening for lipid disorders acute Screening for metabolic disorder acute Screening, deficiency anemia, iron acute Left knee pain acute Wellness examination acute Poison abena dermatitis acute [facility] Work Phone: evaluation note* Diagnosis Pelvic pain documented in this encounter [facility]* Diagnosis Pre-op evaluation Pelvic pain in female Unspecified symptom associated with female genital organs Pain of ovary H/O: hysterectomy Acquired absence of both cervix and uterus [facility]* Diagnosis Acute postoperative pain Other acute postoperative pain Postoperative follow-up Follow-up examination, following unspecified surgery Other insomnia [facility]* Diagnosis Onset Date Resolution Status Admit Date Poison abena dermatitis acute Aug 1:43pm [facility] Work Phone: Hishesl general Narrative - Reported* Type Description Date Medical History hypothyroidism Surgical History gallbladder removal Surgical History appendecs Surgical History ovarian cysts taken out in 2007 Surgical History hysterectomy Hospitalization History surgeries Hospitalization History child [facility] [employer] Other History general Narrative - Reported* Type Description Date Medical History hypothyroidism Surgical History gallbladder removal Surgical History appendecs Surgical History ovarian cysts taken out in 2007 Surgical History hysterectomy Hospitalization History surgeries Hospitalization History child Hospitalization History [facility] chest pain 11/2022 [facility] Hospital Discharge instructions Additional Instructions You have slightly elevated cholesterol level and prediabetes. Try to eat a healthier diet. Mediterranean diet is the best studied to improve health outcomes. I attached some instructions. Establish care with a primary care physician who will manage all your health issues.[facility] Work Phone: Progress note No data available for this section [facility] reason for referral (narrative)No reason for referral information availableGood [facility] Work Phone: Advance Directives Advance Directive Response Recorded Date/ [...] :00pm Obesity (BMI 30.0-34.9) February 14 1:00pm Chief Complaint Admit Date 4 week follow up March 15, 2024 11 :26am 2 month f/u May 16, 2024 10:0 0am Reason for Visit Admit Date Obesity (BMI 30.0-34.9) March 15 11:26am Hypothyroidism May 16, 2024 10:0 0am Screening for lipid disorders May 16, 2024 10:00am Screening for metabolic disorder May 162024 10:00am Screening, deficiency anemia, iron May 16, 2024 10:00am Vitamin D deficiency May 16, 2024 10: 00am Chief Complaint Admit Date Rash September 05, 2024 1:43 pm Reason for Visit Admit Date Poison abena dermatitis September 05, 2024 1: 43pm Additional Source Comments REASON FOR VISIT (unrecogniz ed section and content) Reason Comments telehealth follow up Reason Comments Pelvic Pain Left sided Reason Comments Pre-op Visit Pt present today for a pre operative visit. Reason Comments Post-op Visit Patient Care team informatio n (unrecognized section and content) Team Status: Active Member Role Status Dates Surya Hodges MD Primary Care Provider Active Team Status: Inactive Member Role Status Dates Surya Hodges MD Primary Care Provider Active Start: September 07, 2023 End: September 07, 2023 Saniya Mays APRN [employer] DEVELOPER-C Attending Provider Act ellie Start: September 07, 2023 End: September 07, 2023 Team Status: Inactive Member Role Status Dates Surya Hodges MD Primary Care Provide r, Attending Provider Active Start: October 03, 2023 End: October 03, 2023 Team Status: Inactive Member Role Status Dates Surya Hodges MD Primary Care Provider Active Start: October 10, 2023 End: October 10, 2023 Saniya Mays APRN [employer] DEVELOPER-C Attending Provider Act ellie Start: October 10, [...] Quezada NP-C Attending Provider Active Team Status: Inactive Member Role Status Dates Surya Hodges MD Primary Care Provider Active Marcio Steven DO Emergency Provider Active Baljinder Polanco MD Admit Provider, Attending Provider Active Traffic Control Signaler Relationship Specialty Start Date End Date Surya Hodges MD [address] [place] [id number] PCP - General Family Medicine 09/27/22 Team Status: Active Member Role Status Dates Saniya Mays APRN [employer] DEVELOPER-C Primary Care Provider Active Team Status: Inactive Member Role Status Dates Saniya Mays APRN [employer] DEVELOPER-C Primary Care Provider, Attending Provider Active Start: February 15, 2024 End: February 15, 2024 Team Status: Inactive Member Role Status Dates Saniya Mays APRN [employer] DEVELOPER-C Primary Care Provider, Attending Provider Active Start: March 15, 2024 End: March 15, 2024 Team Status: Inactive Member Role Status Dates Saniya Mays APRN [employer] DEVELOPER-C Primary Care Provider, Attending Provider Active Start: May 16, 2024 End: May 16, 2024 Traffic Control Signaler Relationship Specialty Start Date End Date Surya Hodges MD PCP - General Family Medicine 09/27/22 Traffic Control Signaler Relationship Specialty Start Date End Date Surya Hodges MD [address] [facility] [place] [id number] PCP - General Family Medicine 09/27/22 Traffic Control Signaler Relationship Specialty Start Date End Date Surya Hodges MD [address] [facility] [place] [id number] PCP - General Family Medicine 09/27/22 Traffic Control Signaler Relationship Specialty Start Date End Date Surya Hodges MD [address] [facility] [place] [id number] PCP - General Family Medicine 09/27/22 Traffic Control Signaler Relationship Specialty Start Date End Date Surya Hodges MD [address] [facility] [place] [phone] PCP - General Family Medicine 09/27/22 Traffic Control Signaler Relationship Specialty Start Date End Date Surya Hodges MD [address] [facility] [place] [id number] PCP - General Family Medicine 09/27/22 Traffic Control Signaler Relationship Specialty Start Date End Date Surya Hodges MD [address] [facility] [place] [id number] PCP - General Family Medicine 09/27/22 Team Status: Active Member Role Status Dates Saniya Mays APRN [employer] DEVELOPER-C Primary Care Provider Active Start: July 23, 2024 Brent Roland DO Attending Provider Active Start : July 23, 2024 Team Status: Active Member Role Status Dates Saniya Mays APRN [employer] DEVELOPER-Jocelyne Primary Care Provider Active Start: August 02, 2024 Brent Roland DO Attending Provider Active Start : August 02, 2024 Team Status: Active Member Role Status Dates Saniya Mays APRN [employer] DEVELOPER-Jocelyne Primary Care Provider Active Start: August 23, 2024 Kamaljit Romero MD Attending Provider Active St art: August 23, 2024 Team Status: Inactive Member Role Status Dates Saniya Mays APRN [employer] DEVELOPER-Jocelyne Primary Care Provider Active Start: September 05, 2024 End: September 05, 2024 TAYLOR Harry Attending Provider Act ellie Start: September 05, 2024 End: September 05, 2024 Goals (unrecognized section and content) Goals may be documented in a n alternate section INFORMATION SOURCE (unrecogn ized section and content) DATE CREATED AUTHOR 07/01/2022 [facility] DATE CREATED AUTHOR AUTHOR'S ORGANIZ ATION 12/18/2022 [facility] DATE CREATED AUTHOR AUTHOR'S ORGANIZ ATION 08/11/2024 [facility] DATE CREATED AUTHOR AUTHOR'S ORGANIZ ATION 08/15/2024 [facility] FOR RECORDS PERTAINING TO PATIENTS [...] BE BASED ON THE PRIMARY CLINICAL RECORDS. [employer] provides no warranty or guarantee of the accuracy or completeness of information in this document.
[2024-09-06] MEDS: LACTATED RINGER'S SOLUTION 1,000 ML 50 ML IV (07:19)
[2024-09-06] MEDS: SCOPOLAMINE 1 MG/3 DAYS TRANSDERM PATCH 1 PATCH TD (07:56)
[2024-09-06] MEDS: CEFAZOLIN SODIUM/DEXTROSE,ISO 2 GM/50 ML PIGGYBACK IV (08:03)
--- NOTE | 2024-09-06 08:34 | PM.URSON ---
Urology Surgery Operative Note Operative Note Procedure Date: 09/06/24 Time Out Performed: yes Pre-op Diagnosis: Left ureteral stricture; status post left stent placement Post-op Diagnosis: same as pre-op Procedures performed: 1. Cystoscopy. 2. Left ureteroscopy. 3. Left ureteral stent change to 7 [place] variable length Anesthesia: General-LMA Primary Surgeon: Kamaljit Romero Complications: None Estimated blood loss (mL): 0 Findings: Significantly less distal left ureteral stricture Specimens: None Drains: 7 [place] variable length left ureteral stent Indications for Procedures: This lady had a severe distal left ureteral stricture for which she was ultimately stented about 4 weeks ago. She now presents for ureteroscopic evaluation and possible stent change. She has signed an informed consent after risks were explained. Detailed description of Procedure: The patient was brought to the operating room and placed on the operating room table in the supine position. SCDs were placed on the lower extremities and turned on and functioning during the entire case. Timeout was done by all parties in the room. We all agreed upon the patient's identification and the planned procedures for this patient. Genn. anesthesia was then administered. The patient was then repositioned into the modified dorsal lithotomy position. All pressure points were satisfactorily padded. Genitalia were sterilely prepped and draped in usual fashion. I started by passing a 22 [place] Olympus cystoscope per urethra and into the bladder. Panendoscopy in the bladder revealed no evidence of pathology. The none encrusted stent was grasped with a flexible grasper. The distal end of the stent was brought out the urethral meatus. I then slid a Glidewire through the stent into the kidney and remove the old stent. I then passed a semirigid ureteroscope adjacent to the wire into the bladder and into the left ureter. I was able to get the scope to the area of the prior stricture. The stricture was significantly opened compared to last time. There was still some narrowing affect. I scoped higher up and everything appeared normal. The ureteroscope was then removed. I elected to place a larger stent for further passive dilation. I then backloaded the cystoscope over the wire and passed it into the bladder. I then passed a 7 [place] variable length stent over the wire up to the kidney. The wire was removed and there were good curls in the kidney and in the bladder. The bladder was then drained of its contents and the scope was then removed. She was then transferred to a [facility] bed and wheeled to PACU in stable condition.
--- NOTE | 2024-09-06 09:43 | PC.NURSE ---
Up to bathroom and voids clear yellow without difficulty
== END 2024-09-06 09:44 | disposition home or self-care (01) ==
PROVIDERS: PCP Nurse Practitioner Family; Visit Provider Urology
PROC: (CPT 910; principal; 2024-09-06 08:00)
DX: N13.5 Crossing vessel and stricture of ureter without hydronephrosis (principal); F32.A Depression, unspecified; E03.9 Hypothyroidism, unspecified; Z87.442 Personal history of urinary calculi; Z90.49 Acquired absence of other specified parts of digestive tract; Z90.710 Acquired absence of both cervix and uterus
CPT/HCPCS: 52332; 52351; 36415; 76000; J0690; J1100; J1885; J2250; J2405; J2704; J3010

== ENCOUNTER 2024-10-09 18:48 | Outpatient (REF) | payer BC, SELFPAY ==
[2024-10-12 20:08] LABS: Age Gdln ACOG Testing Note (.); IGP, Aptima HPV, rfx 16/18,45 Note (.)
== END 2024-10-09 18:49 | disposition home or self-care (01) ==
LOC: LAB 18:48
PROVIDERS: PCP Nurse Practitioner Family; Visit Provider Obstetrics & Gynecology
DX: Z01.419 Encounter for gynecological examination (general) (routine) without abnormal findings (principal)
CPT/HCPCS: 87624; 88175

== ENCOUNTER 2024-11-08 07:43 | Outpatient (OUT) | payer BC, SELFPAY ==
--- OUTSIDE RECORDS SUMMARY | 2024-11-08 07:48 | XMS_ITS | CCD ---
Author Organization [facility] CliniSywv Care Team Providers Care Page Makeup System Operator Name Role Phone Treasure Quezada Unavailable SURYA HODGES Primary Care Physician MD Surya Hodges Primary Care Provider KITA Quezada Attending Provider Surya Hodges Unavailable ASUNCION ., DR SEYMOUR Admitting Unavailable HODGES, DR [...] ASUNCION ., DR SEYMOUR Attending Unavailable LUE ., JULIETH Pena Attending Unavailable LUE ., JULIETH Pena Admitting Unavailable LUE ., JULIETH Pena Consulting Unavailable TRACIE, DR SURYA Damon Primary Care Unavailable ROMERO ., DR NAQVI Attending Unavailable ROMERO ., DR NAQVI Admitting Unavailable ROMERO ., DR NAQVI Consulting Unavailable ZIEBER, DR DAVID Rivas Consulting Unavailable ASUNCION ., DR SEYMOUR Admitting Unavailable ASUNCION ., DR SEYMOUR Consulting Unavailable TRACIE, DR SURYA Damon Primary Care Unavailable ASUNCION ., DR SEYMOUR Attending Unavailable HODGES, DR [...] KORI, BRINA Attending Unavailable TRACIE, DR SURYA Damon Primary Care Unavailable TRACIE, DR SURYA Damon Primary Care Unavailable LIMA, DR CROW Rivas Admitting Unavailable LIMA, DR CROW Rivas Consulting Unavailable LIMA, DR CROW Rivas Attending Unavailable MAGI BAUER Consulting Unavailable LEATHA GALVAN Consulting Unavailable MAYLIN, RERE Consulting Unavailable MD Surya Hodges Primary Care Provider DO Marcio Steven Emergency Provider MD Baljinder Polanco Admit Provider [phone] MD Baljinder Polanco Attending Provider Jason Beasley Unavailable Tracie STILES, Surya Primary Care Provider [phone] Surya Hodges MD Primary Care Provider [phone] Surya Hodges MD Primary Care Provider Saniya Mays APRN Primary Care Provider Brent Roland DO Attending Provider Kamaljit Romero MD Attending Provider Saniya Mays APRN Attending Provider Kamaljit ROMERO Attending Unavailable Kamaljit ROMERO Attending Unavailable Kamaljit ROMERO Attending Unavailable Kamaljit ROMERO Attending Unavailable BRENT ROLAND Attending Unavailable ASUNCION, BRENT Attending Unavailable YESICA BECKER Attending Unavailable ASUNCION, BRENT Attending Unavailable Saniya Mays APRN Primary Care Provider Brent Roland DO Attending Provider [phone] Saniya Mays Primary Care Unavailable Kamaljit Romero Attending Unavailable Kamaljit Romero Admitting Unavailable Allergies Allergy Classification Reported Allergen(s) Allergy Type Date of Onset Reaction(s) Facility (20 sources) Azithromycin; Translations: [azithromycin] Drug Allergy 4 rash, Eruption of skin (disorder) [facility] [place] (20 sources) whooping cough Propensity to adverse reactions 4 swelling injection site [facility] (16 sources) Bordetella pertussis filamentous hemagglutinin vaccine, inactivated / Bordetella pertussis fimbriae 2/3 vaccine, inactivated / Bordetella pertussis pertactin vaccine, inactivated / Bordetella pertussis toxoid vaccine, inactivated / diphtheria toxoid vaccine, inactivated / tetanus toxoid vaccine, inactivated; Translations: [diphtheria/pertu ssis, acel/tetanus adult] Drug Allergy 0 Unknown, Comment:amrit damon [facility] [place] (20 sources) Clindamycin; Translations: [clindamycin] Drug Allergy 0 Rash [facility] [place] Comment on above: Onset Date: 03/14/19 20 (2 sources) acellular pertussis vaccine, inactivated / diphtheria toxoid vaccine, inactivated / tetanus toxoid vaccine, inactivated Drug Allergy [facility] (2 sources) Clindamycin Drug Allergy [facility] (10 sources) vaccine adjuvant system, AS01B liposomal Allergy to substance 3 Rash [facility] (17 sources) Eccdglm-Ciuhaa-Dh ell Pertussis Propensity to adverse reactions 3 Swelling [facility] Work Phone: (9 sources) diphtheria,pertus sis (acellular),te Allergy to substance 4 Comment:amrit damon [facility] Comment on above: Onset Date: 03/14/19 20 (8 sources) Penicillins Allergy to substance 4 Hives [facility] (11 sources) Tetanus-Diphtheri a Toxoids Td Drug Allergy 5 Other [facility] Medications Current Medications Medication Drug Class(es) Dates Sig (Normalized) Sig (Original) 0.5 ML tirzepatide 5 MG/ML Auto-Injector [Mounjaro] (1 source) Start: 01-13-2022 inject 1 mg by subcutaneous injection every week Mounjaro 2.5 mg/0.5 mL subcutaneous solution mg, SubCutaneous, qWeek, Refills(s) 0 Start Date: 01/13/22 Status: Ordered Repeat number: 1 acetaminophen 300 mg / codeine phosphate 30 mg oral tablet (3 sources) Opioid Agonist Start: 07-10-2024 End: 07-17-2024 take 1 tablet by mouth every six hours for pain acetaminophen-code ine (Tylenol w/ Codeine #3) 300-30 MG tablet Indications: Pelvic pain Take 1 tablet by mouth every 6 (six) hours if needed for severe pain for up to 7 days 28 tablet 07/10/2024 07/17/2024 Active [id number] actuat albuterol 0.09 mg/actuat metered dose [...] bid for 7 days Mar, Active Celexa (7 sources) Serotonin Reuptake Inhibitor Start: 05-21-2022 Celexa Refills(s) 0 Start Date: 05/21/22 Status: Ordered Repeat number: 1 Start: 05-21-2022 Celexa Refills (s) 0 Start Date: 05/21/22 Status: Ordered End: 04-21-2023 take 1 tablet by mouth in the morning citalopram (CeleXA) 20 MG tablet Take 20 mg by mouth in the morning. 0 04/21/2023 Discontinued (Therapy completed) estradiol 0.5 mg oral tablet (1 source) Estrogen Start: 01-13-2022 take 2 tablets by mouth once daily estradiol 0.5 mg Tab mg tab(s), Oral, Daily, Refills(s) 0 Start Date: 01/13/22 Status: Ordered fluconazole 150 mg oral tablet (20 sources) Azole Antifungal Start: 10-01-2024 fluconazole (Diflucan) 150 MG tablet Indications: Yeast infection TAKE 1 TABLET BY MOUTH FOR ONE SINGLE DOSE 1 tablet 3 10/01/2024 Active Start: 02-15-2024 End: 05-16-2024 Fluconazole 150 mg tablet Di scontinued 150 MG PO Q3D 2 February 15, 2024 1:00am May 16, 2024 11:47am Take 1st dose at onset of symptoms then repeat in 3 days if continued symptoms Start: 05-04-2023 End: 06-17-2023 Fluconazole 150 mg tablet Di scontinued 150 MG PO Q3D 2 May 04, 2023 1:00am June 17, 2023 2:15pm Start: 02-23-2023 End: 07-10-2024 take 1 tablet by mouth once fluconazole (Diflucan) 150 MG tablet Indications: Vaginal yeast infection TAKE 1 TABLET BY MOUTH ONE TIME FOR 1 DOSE 1 tablet 02/23/2023 07/10/2024 Discontinued Start: 03-16-2022 Diflucan 150 M G 1 tablet Orally x1 for 1 days Mar, Active Prozac (3 sources) Serotonin Reuptake Inhibitor Start: 01-13-2022 Prozac Oral, Daily, Refills(s) 0 Start Date: 01/13/22 Status: Ordered Repeat number: 1 Start: 01-13-2022 Prozac Oral, D aily, Refills(s) 0 Start Date: 01/13/22 Status: Ordered furosemide 20 mg oral tablet (20 sources) Loop Diuretic Start: 12-15-2023 End: 03-22-2024 take 1 tablet by mouth once daily Start: 07-11-2023 End: 12-15-2023 take 1 tablet by mouth once daily Furosemide 20 mg tablet Discontinued 20 MG PO Daily September 08, 2023 4:05pm December 15, 2023 9:06am ibuprofen 800 mg oral tablet (14 sources) Nonsteroidal Anti-inflammatory Drug Start: 07-10-2024 End: 10-08-2024 take 1 tablet by mouth every eight hours as needed for pain ibuprofen 800 MG tablet Indications: Pelvic pain TAKE 1 TABLET BY MOUTH EVERY 8 HOURS NEEDED FOR MILD PAIN 60 tablet 3 09/03/2024 Active levothyroxine sodium 0.137 mg oral capsule (20 sources) l-Thyroxine Start: 12-07-2022 take 1 tablet by mouth before mealtime levothyroxine (Synthroid, Levoxyl) 137 MCG tablet Take 137 mcg by mouth in the morning. Take before meals. 12/07/2022 Active Start: 12-01-2022 End: 05-31-2024 take 1 capsule by mouth once daily Start: 11-30-2022 End: 06-17-2023 take 1 tablet by mouth once daily Levothyroxine 175 mcg tablet Discontinued 175 MCG PO Daily November 30, 2022 12:00am June 17, 2023 2:15pm Start: 01-11-2022 Synthroid 150 mcg (0.15 mg) Tab Oral, Refills(s) 0 Start Date: 01/11/22 Status: Ordered Repeat number: 1 take 1 tablet by tory th every twenty-four hours Synthroid 137 MCG 1 tablet Orally Once a day Active take 1 tablet by tory th every twenty-four hours Synthroid 175 MCG 1 tablet Orally Once a day Active liothyronine sodium 0.005 mg oral tablet (20 sources) l-Triiodothyronine Start: 06-17-2023 take 1 tablet by mouth once daily take 1 tablet by tory every twenty-four hours Liothyronine Sodium 5 MCG 1 tablet once a day Active 24 hr metFORMIN hydrochloride 500 mg extended release oral tablet (20 sources) Biguanide Start: 10-09-2024 End: 10-09-2025 take 2 tablets by mouth every twenty-four hours at mealtime metFORMIN XR (Glucophage-XR) 500 MG 24 hr tablet Indications: Insulin resistance Take 2 tablets (1,000 mg) by mouth in the evening. Take with meals Do not crush, chew, or split. 60 tablet 11 10/09/2024 10/09/2025 Active Start: 11-30-2022 End: 06-17-2023 take 1 tablet [...] 30, 2022 12:00am December 01, 2022 1:05pm methenamine hippurate 1000 mg oral tablet (7 sources) Start: 09-06-2024 take 1 tablet by mouth twice daily methenamine hippurate 1 g oral tablet 1 gm = 1 tab(s), Oral, BID, # 60 tab(s), Refills(s) 1, [id number] Start Date: 09/06/24 Status: Ordered Quantity: 60.0 Unit: tab(s) Repeat number: 2 take 1 tablet by mouth in the mo rning methenamine hippurate (Hiprex) 1 g tablet Take 1 g by mouth in the morning and 1 g before bedtime. Active 24 hr mirabegron 50 mg extended release oral tablet (7 sources) beta3-Adrenergic Agonist Start: 09-06-2024 End: 11-05-2024 take 1 tablet by mouth once daily mirabegron 50 mg oral tablet, extended release 50 mg = 1 tab(s), Oral, Daily, X 60 day(s), # 60 tab(s), Refills(s) 0, Pharmacy: [facility]/pharmacy #[id number] Start Date: 09/06/24 Stop Date: 11/05/24 Status: Ordered Quantity: 60.0 Unit: tab(s) Repeat number: 1 Mounjaro 2.5 mg/0.5 mL subcutaneous solution (2 sources) Start: 01-13-2022 inject 1 mg by subcutaneous injection every week Mounjaro 2.5 mg/0.5 mL subcutaneous solution mg, SubCutaneous, qWeek, Refills(s) 0 Start Date: 01/13/22 Status: Ordered Zofran (2 sources) Serotonin-3 Receptor Antagonist Start: 05-21-2022 Zofran Refills(s) 0 Start Date: 05/21/22 Status: Ordered Repeat number: 1 Start: 05-21-2022 Zofran Refills (s) 0 Start Date: 05/21/22 Status: Ordered phentermine hydrochloride 37.5 mg oral tablet (20 sources) Sympathomimetic Amine Anorectic Start: 10-09-2024 End: 11-08-2024 take 1 tablet by mouth before mealtime phentermine (Adipex-P) 37.5 MG tablet Indications: Encounter for weight loss counseling Take 1 tablet (37.5 mg) by mouth in the morning. Take before meals. 30 tablet 10/09/2024 11/08/2024 Active Start: 02-15-2024 End: 08-27-2024 take 1 tablet by mouth [...] Sep, Active predniSONE 10 mg oral tablet (20 sources) Start: 09-05-2024 take 0.5 tablet by m out once daily Start: 12-19-2023 End: 02-15-2024 take 4 tablets [...] tablet Discontinued 20 MG PO Twice daily 10 February 21st, 2024 1:00am June 17, 2023 2:15pm Start: 11-05-2022 [...] Active tamsulosin hydrochloride 0.4 mg oral capsule (7 sources) alpha-Adrenergic Janie Start: 09-06-2024 take 1 capsule by mouth once daily Flomax 0.4 mg Cap 0.4 mg = 1 cap(s), Oral, Daily, # 30 cap(s), Refills(s) 0, Pharmacy: [facility]/pharmacy #[id number] Start Date: 09/06/24 Status: Ordered Quantity: 30.0 Unit: cap(s) Repeat number: 1 Tirzepatide-Weight Management (Zepbound) 2.5 MG/0.5ML solution auto-injector [...] 04/21/2023 Discontinued (Therapy completed) triamcinolone acetonide 1 mg /ml topical cream (15 sources) Corticosteroid Start: 09-05-2024 Start: 09-15-2022 Kenalog-40 Sep, 60 mg 24 [...] Drug Class(es) Dates Sig (Normalized) Sig (Original) black cohosh extract 20 mg oral tablet (13 sources) End: 10-09-2024 take 1 tablet by mouth once daily Black Cohosh 20 MG tablet Take 1 tablet by mouth Daily 10/09/2024 Discontinued take 1 tablet by mouth once edin y Black Cohosh 20 MG tablet Take 1 tablet by mouth Daily Active buPROPion hydrochloride 100 mg oral tablet (8 sources) Aminoketone Start: 12-08-2023 End: 02-15-2024 take 2 tablets by mouth twice daily Bupropion Hcl 100 mg tablet Discontinued 200 MG PO Twice daily 60 January 26, 2024 12:27pm February 15, 2024 2:07pm 12 hr buPROPion hydrochloride 90 mg / naltrexone hydrochloride 8 mg extended release oral tablet (12 sources) Opioid Antagonist, Aminoketone Start: 10-03-2023 End: 12-08-2023 take 2 tablets by mouth twice daily Naltrexone-Buprop ion (Contrave) 8-90 mg tablet extended release Discontinued 2 TAB PO Twice daily October 03, 2023 3:18pm December 08, 2023 8:13am busPIRone hydrochloride 5 mg oral tablet (7 sources) Start: 06-17-2023 End: 09-07-2023 take 1 tablet by mouth twice daily as needed for anxiety Buspirone 5 mg tablet Discontinued 5 MG PO Twice daily as needed for anxiety June 17, 2023 12:00am September 07, 2023 1:46pm cephalexin 500 mg oral capsule (9 sources) Cephalosporin Antibacterial Start: 05-04-2023 End: 06-17-2023 take 1 capsule by mouth every eight hours Cephalexin 500 mg capsule Discontinued 500 MG PO Every 8 hours 01 10May 04, 2023 1:00am June 17, 2023 2:15pm ciprofloxacin 500 mg oral tablet (1 source) Quinolone Antimicrobial Start: 09-11-2024 take 1 tablet by mouth once daily Cipro 500 mg Tab 500 mg = 1 tab(s), Oral, Daily, Take 1 tablet the day before the procedure and 1 tablet after the procedure, # 2 tab(s), Refills(s) 0, Pharmacy: [facility]/pharmacy #[id number] Start Date: 09/11/24 Status: Ordered Quantity: 2.0 Unit: tab(s) Repeat number: 1 dicyclomine hydrochloride 10 mg oral capsule (14 sources) Anticholinergic Start: 07-03-2024 End: 10-09-2024 take 1 capsule by mouth three times daily as needed dicyclomine (Bentyl) 10 MG capsule Indications: Abdominal cramping Take 1 capsule (10 mg) by mouth 3 (three) times a day as needed (cramping) 30 capsule 1 07/03/2024 10/09/2024 Discontinued doxycycline monohydrate 100 mg oral tablet (6 sources) Tetracycline-class Drug Start: 02-15-2024 End: 05-16-2024 take 1 tablet by mouth twice daily Doxycycline Monohydrate 100 mg tablet Discontinued 100 MG PO Twice daily 31 12February 15, 2024 1:00am May 16, 2024 11:47am Start: 03-11-2023 take 1 capsule by [facility] every twelve hours Doxycycline Hyclate 100 MG 1 capsule Orally Twice a day for 5 days Feb, Active Ergocalciferol (13 sources) Provitamin D2 Compound End: 10-09-2024 take 1 tablet by mouth once daily Ergocalciferol (VITAMIN D2 PO) Take 1 tablet by mouth Daily 10/09/2024 Discontinued take 1 tablet by mouth once edin y Ergocalciferol (VITAMIN D2 PO) Take 1 tablet by mouth Daily Active methylPREDNISolone 4 mg oral tablet (20 sources) [...] Active naltrexone hydrochloride 50 mg oral tablet (4 sources) Opioid Antagonist Start: 12-08-2023 End: 02-15-2024 take 1 tablet by mouth twice daily Naltrexone 50 mg tablet Discontinued 25 MG PO Twice daily December 08, 2023 12:00am February 15, 2024 2:07pm 24 hr propranolol hydrochloride 120 mg extended [...] 01, 2022 12:00am June 17, 2023 2:15pm zolpidem tartrate 5 mg oral tablet (5 sources) gamma-Aminobutyric Acid-ergic Agonist Start: 08-14-2024 End: 10-09-2024 zolpidem (Ambien) 5 MG tablet Indications: Other insomnia Take 1 tablet (5 mg) by mouth as needed at bedtime for sleep for up to 20 doses 20 tablet 08/14/2024 10/09/2024 Discontinued Problems Active Problems Problem Classification Problem Date Documented Da te Episodic/Chronic Abdominal pain (14 sources) Pelvic and perineal pain; Translations: [Unspecified abdominal pain] Onset: 3 Episodic Acute bronchitis (3 sources) Acute bronchitis; Translations: [Acute bronchitis due to other specified organisms] Episodic Administrative/social admission (2 sources) Patient encounter status; Translations: [Dietary counseling and surveillance] 10-09-2024 Episodic Allergic reactions (16 sources) Unspecified contact dermatitis, unspecified cause; Translations: [Allergic contact dermatitis] Episodic Anxiety disorders (20 sources) Anxiety; Translations: [Anxiety disorder] 01-13-2022 Chronic Calculus of urinary tract (14 sources) Ureteric stone; Translations: [Calculus of ureter] Onset: 3 Episodic Cardiac dysrhythmias (1 source) Supraventricular tachycardia; Translations: [SUPRAVENTRICULAR TACHYCARDIA] Onset: 2 Chronic Cardiac dysrhythmias (18 sources) Tachycardia; Translations: [Tachycardia, unspecified] Onset: 4 11-30-2022 Episodic Comment on above: Problem List clean-u p per request of Phys. EHR Cmte Chronic obstructive pulmonary disease and bronchiectasis (6 sources) Bronchitis, not specified as acute or chronic; Translations: [Bronchitis] Episodic E Codes: Adverse effects of medical drugs (9 sources) Allergic reaction caused by antibacterial agent; Translations: [Adverse effect of unspecified systemic antibiotic, initial encounter] 05-04-2023 Episodic Essential hypertension (7 sources) Essential hypertension; Translations: [Essential (primary) hypertension] Chronic Genitourinary symptoms and ill-defined conditions (14 sources) Stress incontinence (female) (male); Translations: [Female stress incontinence] Onset: 2 Chronic Genitourinary symptoms and ill-defined conditions (3 sources) Genitourinary symptoms; Translations: [Other symptoms and signs involving the genitourinary system] Episodic Headache; including migraine (13 sources) Migraine without aura, not refractory ; [...] Translations: [Emotional lability] Episodic Nonspecific chest pain (12 sources) Chest pain, unspecified; Translations: [Chest pain] Episodic Comment on above: Problem List clean-u p per request of Phys. EHR Cmte Nutritional deficiencies (4 sources) Vitamin D deficiency; Translations: [Vitamin D deficiency, unspecified] 05-16-2024 Chronic Nutritional deficiencies (7 sources) Iron deficiency; Translations: [Iron deficiency] Episodic Other aftercare (1 source) Other senior care (current) drug therapy; Translations: [OTH BREWER HELPER CURRENT DRUG THERAPY] Onset: 3 Episodic Other aftercare (3 sources) Long-term current use of drug therapy; Translations: [Other extermination supervisor (current) drug therapy] Episodic Other aftercare (3 sources) History and physical examination, follow-up; Translations: [Encounter for follow-up examination after completed treatment for conditions other than malignant neoplasm] Episodic Other aftercare (8 sources) Surgical follow-up; Translations: [Encounter for follow-up examination after completed treatment for conditions other than malignant neoplasm] Onset: 5 08-14-2024 Episodic Other circulatory disease (7 sources) Elevated blood-pressure reading without diagnosis of hypertension; Translations: [Elevated blood-pressure reading, without diagnosis of hypertension] Episodic Other diseases of kidney and ureters (2 sources) Stricture of ureter; Translations: [Crossing vessel and stricture of ureter without hydronephrosis] Onset: 5 Episodic Other endocrine disorders (4 sources) Endocrine [...] of skin; Translations: [Pruritus, unspecified] Episodic Other injuries and conditions due to external causes (1 source) Foreign body in bladder; Translations: [Foreign body in bladder, initial encounter] Onset: 5 Episodic Other lower respiratory disease (1 source) Dyspnea, unspecified Episodic Other lower respiratory disease (1 source) Other abnormalities of breathing Episodic Other nervous system disorders (8 sources) Acute postoperative pain; Translations: [Other acute postprocedural pain] Onset: 5 08-14-2024 Episodic Other non-traumatic joint disorders (8 sources) Pain in left knee; Translations: [Left knee pain] 10-03-2023 Episodic Other nutritional; endocrine; and metabolic disorders (20 sources) Obesity; Translations: [Obesity, unspecified] Chronic Other nutritional; endocrine; and metabolic disorders (1 source) Obesity, unspecified; Translations: [OBESITY UNSPECIFIED] Onset: 3 Chronic Other nutritional; endocrine; and metabolic disorders (12 sources) Obese class I; Translations: [Body mass index (BMI) 32.0-32.9, adult] 02-15-2024 Chronic Other nutritional; endocrine; and metabolic disorders (7 sources) Simple obesity ; Translations: [Other obesity due to excess calories] Onset: 6 Chronic Other nutritional; endocrine; and metabolic disorders (3 sources) Insulin resistance; Translations: [Insulin resistance] 04-21-2023 Chronic [...] allergic rhinitis] Chronic Other upper respiratory infections (8 sources) Chronic sinusitis; Translations: [Chronic sinusitis, unspecified] [...] ankle] Onset: 7 Episodic Superficial injury; contusion (7 sources) Nonvenomous insect bite of thigh without infection; Translations: [Insect bite (nonvenomous), right thigh, initial encounter] Onset: 7 12-07-2023 Episodic Thyroid disorders (20 sources) Hypothyroidism; Translations: [Hypothyroidism, unspecified] Onset: 2 01-11-2022 Chronic Thyroid disorders (8 sources) Disorder of thyroid gland; Translations: [Disorder of thyroid, unspecified] 06-17-2023 Episodic Comment on above: Problem List clean-u p per request of Phys. EHR Cmte Viral infection (6 sources) Genital herpes simplex; [...] Test Name Value Interpretation Reference Range Facility Creatinineon 10-29-2024 GFR/1.73 sq M.predicted MDRD (S/P/Bld) [Vol rate/Area] mL/min/{1.73_m2} Normal [facility] Comment on above: Order Comment: STAT FOR IVP Result Comment: PERF ORMED BY: [place] [address] PATHOLOGIST TELEHEALTH DIRECTOR ZITA BATISTA M.D. Performed By: #### C REAT #### [facility] [address] [place] [address] Creatinine [Mass/volume] in Serum or PlasmaOrdered By: Kamaljit Romero on 10-29-2024 Creatinine [Mass/Vol] 0.77 mg/dL Normal 0.60-1.20 [facility] Comment on above: Order Comment: STAT FOR IVP Performed By: #### C REAT #### [facility] [address] [place] [address] No Panel InformationOrdered By: Kamaljit Romero on 10-29-2024 Estimated GFR (CKD-EPI) > 60.0 mL/Min [facility] Creatinine Clearance (Chem N/A [facility] X-ray reportOrdered By: Crow Ramos on 10-29-2024 Study report [facility] [place] [address] [place] [id number] XRay Report Signed Patient: Karlene Vazquez MR#: [id number] : 1990 Acct:[id number] Age/Sex: 34 / F ADM Date: 5 Loc: XD Room: Type: [facility] Attending Dr: Kamaljit Romero MD Copies to: Kamaljit Romero MD~ Ordering Provider: Kamaljit Romero MD Date of Service: 10/29/24 XR/XR IVP: LT FLANK PAIN, URETERAL STICTURE XR IVP 10/29/2024 8:56 AM SIGNS AND SYMPTOMS: ^LT FLANK PAIN, URETERAL STICTURE ^HOLDING RM FOR LABS PROTOCOL: Meter Attendant radiographs of the abdomen and pelvis were obtained. Radiographs of the abdomen and pelvis were obtained after intravenous contrast administration. Contrast: 150 mL of intravenous Isovue-300 COMPARISON: None FINDINGS: There is evidence of prior cholecystectomy in the right upper quadrant. No radiodense renal, ureteral, or bladder stones are visualized. Vascular calcification is noted in the left hemipelvis. There is satisfactory concentration of contrast within the renal cortex with excretion into the renal pelvis bilaterally. No evidence of hydronephrosis. The ureters fill with contrast with focal narrowing in the left ureter overlyingthe left sacral ala consistent with a history of previous ureteral stricture. No evidence of mass or filling defect. Post void images show near complete bladder emptying. XR/XR IVP IMPRESSION: No obstructing stone or mass. No hydronephrosis. The ureters fill with contrast with focal narrowing in the left ureter overlyingthe left sacral ala consistent with a history of previous ureteral stricture. Impression dictated by: Crow Ramos M.D. 10/29/2024 10:15 AM Dictation Location: [place] [address] Transcribed By: [facility] 10/29/24 1015 Dictated By: Crow Ramos II, MD 10/29/24 1011 Signed By: 10/29/24 1015 [facility] Work Phone: XR IVPon 10-29-2024 XR IVP [facility] [facility] [address] [place] [address] XRay Report Signed Patient: Karlene Vazquez MR#: [id number] : 1990 Acct:[id number] Age/Sex: 34 / F ADM Date: 10/29/24 Loc: XD Room: [facility] Attending Dr: Kamaljit Romero MD Copies to: Kamaljit Romero MD Ordering Provider: Kamaljit Romero MD Date of Service: 10/29/24 XR/XR IVP: LT FLANK PAIN, URETERAL STICTURE XR IVP 10/29/2024 8:56 AM SIGNS AND SYMPTOMS: LT FLANK PAIN, URETERAL STICTURE HOLDING RM FOR LABS PROTOCOL: Meter Attendant radiographs of the abdomen and pelvis were obtained. Radiographs of the abdomen and pelvis were obtained after intravenous contrast administration. Contrast: 150 mL of intravenous Isovue-300 COMPARISON: None FINDINGS: There is evidence of prior cholecystectomy in the right upper quadrant. No radiodense renal, ureteral, or bladder stones are visualized. Vascular calcification is noted in the left hemipelvis. There is satisfactory concentration of contrast within the renal cortex with excretion into the renal pelvis bilaterally. No evidence of hydronephrosis. The ureters fill with contrast with focal narrowing in the left ureter overlying the left sacral ala consistent with a history of previous ureteral stricture. No evidence of mass or filling defect. Post void images show near complete bladder emptying. XR/XR IVP IMPRESSION: No obstructing stone or mass. No hydronephrosis. The ureters fill with contrast with focal narrowing in the left ureter overlying the left sacral ala consistent with a history of previous ureteral stricture. Impression dictated by: Crow Ramos M.D. 10/29/2024 10:15 AM Dictation Location: [place] [address] Transcribed By: [facility] 10/29/24 1015 Dictated By: Crow Ramos II, MD 10/29/24 1011 Signed By: 10/29/24 1015 Normal [facility] IGP,APTIMA HPV,AGE GDLNon AGE GDLN ACOG TESTING Note . [facility] Comment on above: TESTS RESULT FLAG UN ITS REF RANGE LAB Clinician Provided Cytology Information Source.............Vagina No. of containers..01 ThinPrep Vial Age Algo ACOG Olga... FLAG LEGEND: L-Low Normal,H-High Normal,LL-Alert Low,HH-Alert High <-Panic Low,>-Panic High,A-Abnormal,AA-Critical Abnormal Performed at: 01 =G [address] [place] [address] Ernestina Carballo MD, HPV APTIMA Negative Negative [facility] Comment on above: This nucleic acid am plification test detects fourteen high- risk HPV types (16,18,31,33,35,39,45,51,52,56,58,59,66,68) without differentiation. Performed at: = - [address] [id number] Surveillance Technician: Ernestina Carballo MD, Phone: [phone] Performed at: - [address] [id number] Surveillance Technician: Ernestina Carballo MD, Phone: [phone] IGP, APTIMA HPV, RFX 16/18,45 Note . [facility] Comment on above: TESTS RESULT FLAG UN ITS REF RANGE LAB DIAGNOSIS: 02 NEGATIVE FOR INTRAEPITHELIAL LESION OR MALIGNANCY. Specimen adequacy: 02 Satisfactory for evaluation. No endocervical component is identified. Performed by: 02 Delphine Taylor, Crystal Slicer ([facility]) . 02 Note: Note 02 The Pap smear is a screening test designed to aid in the detection of premalignant and malignant conditions of the uterine cervix. It is not a diagnostic procedure and should not be used as the sole means of detecting cervical cancer. Both false-positive and false-negative reports do occur. Test Methodology: Note 02 This liquid based ThinPrep(R) pap test was screened with the use of an image guided system. HPV Genotype Reflex Note 02 Criteria not met, HPV Genotype not performed. FLAG LEGEND: L-Low Normal,H-High Normal,LL-Alert Low,HH-Alert High <-Panic Low,>-Panic High,A-Abnormal,AA-Critical Abnormal Performed at: 02 WB [facility] [address] [place] [address] Ernestina Carballo MD, SPATULA-ALONE VAGINA [facility] Human papilloma virus 16+18+ 31+33+35+39+45+51+52+56+58+59+66+68 DNA [Presence] in CerOrdered By: Brent Roland on 10-09-2024 HPV 16+18+31+33+35+39+45+5 1+52+56+58+59+66+68 DNA Probe+sig amp Ql (Cvx) Negative Negative [facility] Comment on above: This nucleic acid am plification test detects fourteen high- risk HPV types (16,18,31,33,35,39,45,51,52,56,58,59,66,68)without differentiation.Performed at: =G - [facility] [address] [id number] Director: Ernestina Carballo MD, Phone: [phone] at: WB - [facility] [address] [id number] Director: Ernestina Carballo MD, Phone: [phone] No Panel InformationOrdered By: Brent Roland on 10-09-2024 HPV High Risk Other Comment Note . [facility] Comment on above: TESTS RESULT FLAG UN ITS REF RANGE LAB DIAGNOSIS: 02 NEGATIVE FOR INTRAEPITHELIAL LESION OR MALIGNANCY.Specimen adequacy: 02 Satisfactory for evaluation. No endocervical component is identified.Performed by: Tierra Taylor, Crystal Slicer ([facility]). 02Note: Note 02 The Pap smear is a screening test designed to aid in the detection of premalignant and malignant conditions of the uterine cervix. It is not a diagnostic procedure and should not be used as the sole means of detecting cervical cancer. Both false-positive and false-negative reports do occur.Test Methodology: Note 02 This liquid based ThinPrep(R) pap test was screened with the use of an image guided system.HPV Genotype Reflex Note 02 Criteria not met, HPV Genotype not performed. ------- FLAG LEGEND: L-Low Normal,H-High Normal,LL-Alert Low,HH-Alert High <-Panic Low,>-Panic High,A-Abnormal,AA-Critical Abnormal -----Performed at:02 WB [facility] [address] [place] [address] Ernestina Carballo MD, Reference Lab Test Patient Age Note . [facility] Comment on above: TESTS RESULT FLAG UN ITS REF RANGE LAB Clinician Provided Cytology Information Source.............Vagina No. of containers..01 ThinPrep VialAge Hal SNOW Olga... 30-65 FLAG LEGEND: L-Low Normal,H-High Normal,LL-Alert Low,HH-Alert High <-Panic Low,>-Panic High,A-Abnormal,AA-Critical Abnormal -----Performed at:01 =G [facility] [address] [place] [address] Ernestina Carballo MD, Ambulatory Visit Summaryon 0 10-02-2024 Ambulatory Visit Summary Ambulatory Visit Summary JOHNZOE PEREYRAFAIZA Cai :1990 Visit Date:10/02/2024 Ambulatory Visit Instructions Your Diagnosis Foreign body in bladder Ureteral stricture, left Kidney stones Tests Performed XR IVP -- Results Pending -- Please visit your patient portal for your results or contact your primary care physician. Your Care Team Attending Physician - Kamaljit ROMERO MD Primary Care Physician - SURYA HODGES MD This Is Your Medications List ciprofloxacin (Cipro 500 mg Tab) methenamine (methenamine hippurate 1 g oral tablet) mirabegron (mirabegron 50 mg oral tablet, extended release) tamsulosin (Flomax 0.4 mg Cap) Contact prescribing physician if questions or concerns citalopram (Celexa) fluoxetine (Prozac) levothyroxine (Synthroid 150 mcg (0.15 mg) Tab) ondansetron (Zofran) tirzepatide (Mounjaro 2.5 mg/0.5 mL subcutaneous solution) Procedures Performed Cystoscopic removal of ureteric stent (10/02/2024), Injection of urethra (01/19/2022), Ablation of uterine fibroid using magnetic resonance imaging guidance, Appendectomy, Cholecystectomy, Hysterectomy. Discharge Vitals Heart Rate (Peripheral) 120 Respiratory Rate 16 Blood Pressure 138/82 Height 176 cm Height 69 in Weight 84 kg Weight 185.188 lb BMI 27.12 What to do next You Need to Schedule the Following Appointments Follow Up with LUCY STILES, Kamaljit Rivas, SAVITA When: Where: [facility] [address] [place] [address]- Medications What How Much When Instructions Unchanged ciprofloxacin (Cipro 500 mg Tab) 1 Tablets By Mouth Every day Take 1 tablet the day before the procedure and 1 tablet after the procedure Unchanged methenamine (methenamine hippurate 1 g oral tablet) 1 Tablets By Mouth 2 times a day Unchanged mirabegron (mirabegron 50 mg oral tablet, extended release) 1 Tablets By Mouth Every day Duration: 60 Days Unchanged tamsulosin (Flomax 0.4 mg Cap) 1 Capsules By Mouth Every day Unchanged citalopram (Celexa) Contact prescribing physician if questions or concerns Unchanged fluoxetine (Prozac) By Mouth Every day Contact prescribing physician if questions or concerns Unchanged levothyroxine (Synthroid 150 mcg (0.15 mg) Tab) Oral Contact prescribing physician if questions or concerns Unchanged ondansetron (Zofran) Contact prescribing physician if questions or concerns Unchanged tirzepatide (Mounjaro 2.5 mg/ 0.5 mL subcutaneous solution) Subcutaneous Every week Contact prescribing physician if questions or concerns Medications and Immunizations Administered Given lidocaine Top 2% Gel w/Appl 6 mL, 6 mL, Topical. For: Foreign body in bladder, Ureteral stricture, left, Kidney stones Allergies azithromycin (Eruption) clindamycin (Unknown) tetanus/diphth/pertuss (Tdap) adult/adol (Unknown) Problems Ongoing - Any problem that you are currently receiving treatment for. Anxiety Hypothyroidism Kidney stone Kidney stones Stress incontinence Ureteral stone Ureteral stricture, left Urinary, incontinence, stress female Historical - Any problem that you are no longer receiving treatment for. Acute upper respiratory infection, unspecified Patient Survey You may receive a survey via text or e-mail asking about your office visit. Please share your experience with us by completing your survey. We appreciate your feedback and thank you for choosing us for your care. Education Materials Dietary Guidelines to Help Prevent Kidney Stones Kidney stones are deposits of minerals and salts that form inside your kidneys. Your risk of developing kidney stones may be greater depending on your diet, your lifestyle, the medicines you take, and whether you have certain medical conditions. Most people can lower their risks of developing kidney stones by following these dietary guidelines. Your dietitian may give you more specific instructions depending on your overall health and the type of kidney stones you tend to develop. What are tips for following this plan? Reading food labels ??? Choose foods with no salt added or low-salt labels. Limit your salt (sodium) intake to less than 1,500 mg a day. ??? Choose foods with calcium for each meal and snack. Try to eat about 300 mg of calcium at each meal. Foods that contain 200???500 mg of calcium a serving include: ? 8 oz (237 mL) of milk, qcjbyxo-dfiicljgjkml-vvlx y milk, and calcium-fortifiedfruit juice. Calcium-fortified means that calcium has been added to these drinks. ? 8 oz (237 mL) of kefir, yogurt, and soy yogurt. ? 4 oz (114 g) of tofu. ? 1 oz (28 g) of cheese. ? 1 cup (150 g) of dried figs. ? 1 cup (91 g) of cooked broccoli. ? One 3 oz (85 g) can of sardines or mackerel. Most people need 1,000???1,500 mg of calcium a day. Talk to your dietitian about how much calcium is recommended for you. Shopping ??? Buy plenty of fresh fruits and vegetable (more content not included)... Normal [facility] Urology Office/Clinic Noteon 10-02-2024 Urology Office/Clinic Note Urology Office/Clinic Note Chief Complaint Cysto, removal of stunt HPI Staff Cysto Lt stent removal ABX TAKEN History of Present Illness Tests reviewed: op note I have reviewed the previous health record information and history for this patient from Dr. Romero. I have reviewed and verified the staff HPI to be accurate for this encounter. Review of Systems PHQ Score Initial Depression Screen Score: 0 SCORE ROS - Provider Constitutional: denies weight loss, denies hot flashes. Eyes: denies eye problems. Gastrointestinal: denies nausea, denies vomiting. Cardiovascular: denies chest pain or angina. Integumentary: no dryness Musculoskeletal: denies musculoskeletal symptoms. ENMT: denies otolaryngeal symptoms. Respiratory: no shortness of breath. Heme/Lymph: denies easy bleeding tendency, denies easy bruising tendency. Psychiatric: no confusion, no anxiety. Genitourinary: See HPI. Physical Exam Vitals & Measurements HR: 120(Peripheral) RR: 16 BP: 138/82 HT: 69 in HT: 176 cm WT: 185.188 lb WT: 84 kg BMI: 27.12 General Appearance: alert, no distress, well nourished, well developed adult. Procedure Operative Information Anesthesia Type: Local Procedure: Local Cystoscopy with Stent Removal Complications: None Surgical risks, benefits, details of the procedure have been explained to the patient. Full informed consent has been obtained. Intraoperative Information Prepped: Patient is placed in modified dorso/lithotomy position. The patient was prepped with the Betadine solution. Anesthesia: 2% Xylocaine Jelly per urethra. Procedure: Cystoscopy and left stent removal. The flexible Cystoscope was passed in retrograde fashion into the bladder without difficulty. The bladder was viewed in entirety and found to be without tumors or stones. Mild inflammation was seen surrounding the orifice with the stent seen protruding from it. The stent was then grasped and removed in its entirety. Specimens Removed: None Postoperative Information The patient tolerated the procedure well and was subsequently discharged home. Assessment/Plan 1. Foreign body in bladder (T19.1XXA: Foreign body in bladder, initial encounter) S/p cysto, L rpg, L urs, L stent placement, R ureteral catheter 08/02/24. S/p cysto, L urs, L ureteral stent change 09/06/24. Pt had IO cysto, L stent removal today wo complications. 2. Ureteral stricture, left (N13.5: Crossing vessel and stricture of ureter without hydronephrosis) S/p cysto, L rpg, L urs, L stent placement, R ureteral catheter 08/02/24 - Severe L distal ureteral stricture found. *pt was there for obstetrician and gynaecologist procedure (pelvic laparoscopy for significant L sided pelvic pain), urologic cysto and placement of ureteral catheters was requested to help ID ureters during surgery S/p cysto, L urs, L ureteral stent change 09/06/24 - Significantly less distal L ureteral stricture. Follow up 3 mos with IVP or sooner if needed. Pt understands and agrees with plan. 3. Kidney stones (N20.0: Calculus of kidney) CT AP wo con 05/08/22 - Punctate LIP stone. 2 mm RLP stone. Follow-up With When Contact Information LUCY STILES, Kamaljit Rivas, URL [facility] [address], [facility] [place] [facility] [address]- Additional Instructions: 3 mos with IVP Patient Education Dietary Guidelines to Help Prevent Kidney Stones IDebbie, personally scribed for Dr. Romero on 10/02/2024 15:45:26. . Documentation recorded by the scribe, Debbie Guadalupe, accurately reflects the services(s) I performed and decisions made by me. Authenticated by Dr. Romero on 10/02/2024 15:55:01. Problem List/Past Medical History Ongoing Anxiety Hypothyroidism Kidney stone Kidney stones Stress incontinence Ureteral stone Ureteral stricture, left Urinary, incontinence, stress female Historical Acute upper respiratory infection, unspecified Procedure/Surgical History Cystoscopic removal of ureteric stent (10/02/2024), Injection of urethra (01/19/2022), Ablation of uterine fibroid using magnetic resonance imaging guidance, Appendectomy, Cholecystectomy, Hysterectomy. Medications Celexa Cipro 500 mg Tab, 500 mg= 1 tab(s), Oral, Daily Flomax 0.4 mg Cap, 0.4 mg= 1 cap(s), Oral, Daily methenamine hippurate 1 g oral tablet, 1 gm= 1 tab(s), Oral, BID, 1 refills mirabegron 50 mg oral tablet, extended release, 50 mg= 1 tab(s), Oral, Daily Mounjaro 2.5 mg/0.5 mL subcutaneous solution, SubCutaneous, qWeek Prozac, Oral, Daily Synthroid 150 mcg (0.15 mg) Tab Zofran Allergies azithromycin (Eruption) clindamycin (Unknown) tetanus/diphth/pertuss (Tdap) adult/adol (Unknown) Social History Alcohol Current. Careless fruit drink. 1-2 times per month., 10/01/2024 Substance Abuse Never., 10/01/2024 Tobacco Never (less than 100 in lifetime) Tobacco Use:. Never Smokeless Tobacco Use:., 10/02/2024 Family History Family history is negati (more content not included)... [facility] Comment on above: Result Comment: Elec tronically Signed By: Kamaljit ROMERO MD\.br\Date and Time Signed: 10/02/24 15:55 EDT\.br\Electronically Co-Signed By: Debbie Guadalupe\.br\Date and Time Co-Signed: 10/02/24 15:45 EDT Provider Letteron 09-13-2024 Provider Letter Provider Letter September 13, 2024 KARLENE VAZQUEZ [address] [id number] : 1990 To Whom It May Concern, Please excuse above patient from work. Date of Illness: From: 09/06/24 To: 10/02/24 May Return to Work On: 10/03/24 Restrictions: None Comments: Continuation of FMLA from 09/06/24- 10/02/24. Patient may return to work without restrictions on 10/03/24. Sincerely, [facility]/ Dr. Kamaljit Romero [address] [place] [address] [facility] Comment on above: Other Comment: corre ction/ pt change mind Provider Letter Provider Letter September 13, 2024 KARLENE VAZQUEZ [address] [address] : 1990 To Whom It May Concern, Please excuse above patient from work. Date of Illness: From: 09/06/24 To: 09/17/24 May Return to Work On:09/18/24 Restrictions: Patient may return to work 09/18/24 with no heavy lifting and light duty. Comments: N/A Sincerely, [facility] Normal [facility] Basophils Auto (Bld) [#/Vol] on 08-23-2024 Basophils (Bld) [#/Vol] 0.0 10 3/uL 0.0-0.1 [facility] Basophils/100 WBC Auto (Bld) on 08-23-2024 Basophils/100 WBC (Bld) 0.6 % 0.2-2.0 [facility] Eosinophils/100 WBC Auto (Bl d)on 08-23-2024 Eosinophils/100 WBC (Bld) 3.0 % 0.9-7.0 [facility] Erythrocyte distribution wid th Auto (RBC) [Ratio]on 08-23-2024 Erythrocyte distribution width (RBC) [Ratio] 13.2 % 11.0-15.0 [facility] Estimated glomerular filtrat ion rate (GFR) non- Americanon 08-23-2024 GFR/1.73 sq M.predicted among non-blacks MDRD (S/P/Bld) [Vol rate/Area] mL/min/{1.73_m2} >=60 mL/min/1.7 3m 2 [facility] Hematocrit Auto (Bld) [Volum e fraction]on 08-23-2024 Hematocrit (Bld) [Volume fraction] 39.6 % 36.0-48.0 [facility] Hemoglobin [Mass/volume] in Bloodon 08-23-2024 Hemoglobin (Bld) [Mass/Vol] 12.9 g/dL 12.0-16.0 [facility] Laboratory - Chemistry and C hemistry - challengeon 08-23-2024 Calcium [Mass/Vol] 9.0 mg/dL 8.5-10.1 [facility] Chloride [Moles/Vol] 104 mmol/L 98-[address] [facility] CO2 [Moles/Vol] 26.7 mmol/L 21.0-32.0 [facility] Creatinine [Mass/Vol] 0.82 mg/dL 0.55-1.02 [facility] GFR/1.73 sq M.predicted MDRD (S/P/Bld) [Vol rate/Area] mL/min/{1.73_m2} >=60 mL/min/1.7 3m 2 [facility] Glucose [Mass/Vol] 94 mg/dL 74-106 [facility] Potassium [Moles/Vol] 3.9 mmol/L 3.5-5.1 [facility] Sodium [Moles/Vol] 139 mmol/L 136-145 [facility] Urea nitrogen [Mass/Vol] 9.0 mg/dL 7.0-18.0 [facility] Urea nitrogen/Creatinine [Mass ratio] 11.0 mg/mg [facility] Laboratory - Hematology and Cell countson 08-23-2024 Immature granulocytes/100 WBC (Bld) 0.1 % 0.0-0.5 [facility] Leukocytes [#/volume] correc jocelynn for nucleated erythrocytes in Blood by Automated counon 08-23-2024 WBC corrected for nucl RBC Auto (Bld) [#/Vol] 6.7 10 3/uL 4.0-11.0 [facility] Lymphocytes Auto (Bld) [#/Vo l]on 08-23-2024 Lymphocytes (Bld) [#/Vol] 2.4 10 3/uL 1.2-3.8 [facility] Lymphocytes/100 WBC Auto (Bl d)on 08-23-2024 Lymphocytes/100 WBC (Bld) 34.9 % 20.5-60.0 [facility] MCH Auto (RBC) [Entitic mass ]on 08-23-2024 MCH (RBC) [Entitic mass] 26.2 pg Low 26.7-34.0 [facility] MCHC Auto (RBC) [Mass/Vol]on 08-23-2024 MCHC (RBC) [Mass/Vol] 32.6 g/dL 29.9-35.2 [facility] MCV Auto (RBC) [Entitic vol] on 08-23-2024 MCV (RBC) [Entitic vol] 80.5 fL Low 81.0-99.0 [facility] Monocytes Auto (Bld) [#/Vol] on 08-23-2024 Monocytes (Bld) [#/Vol] 0.3 10 3/uL 0.3-0.8 [facility] Monocytes/100 WBC Auto (Bld) on 08-23-2024 Monocytes/100 WBC (Bld) 4.9 % 1.7-12.0 [facility] Neutrophils Auto (Bld) [#/Vo l]on 08-23-2024 Neutrophils (Bld) [#/Vol] 3.8 10 3/uL 1.4-6.5 [facility] Neutrophils/100 WBC Auto (Bl d)on 08-23-2024 Neutrophils/100 WBC (Bld) 56.5 % 43.0-75.0 [facility] No Panel Informationon 08-23 Eosinophils # (Auto) 0.2 10 3/uL 0.0-0.7 [facility] Immature Granulocyte # (Auto) 0.01 10 3/uL 0.00-0.03 [facility] Platelet mean volume Auto (B ld) [Entitic vol]on 08-23-2024 Platelet mean volume (Bld) [Entitic vol] 8.9 fL Low 9.5-13.5 [facility] Platelets Auto (Bld) [#/Vol] on 08-23-2024 Platelets (Bld) [#/Vol] 398 10 3/uL 150-450 [facility] RBC Auto (Bld) [#/Vol]on RBC (Bld) [#/Vol] 4.92 10 6/uL 4.20-5.40 [facility] Serum or plasma anion gap de terminationon 08-23-2024 Anion gap [Moles/Vol] 12.2 mmol/L [facility] Basophils Auto (Bld) [#/Vol] on 08-02-2024 Basophils (Bld) [#/Vol] 0.1 10 3/uL 0.0-0.1 [facility] Basophils/100 WBC Auto (Bld) on 08-02-2024 Basophils/100 WBC (Bld) 0.6 % 0.2-2.0 [facility] Eosinophils/100 WBC Auto (Bl d)on 08-02-2024 Eosinophils/100 WBC (Bld) 1.6 % 0.9-7.0 [facility] Erythrocyte distribution wid th Auto (RBC) [Ratio]on 08-02-2024 Erythrocyte distribution width (RBC) [Ratio] 13.1 % 11.0-15.0 [facility] Hematocrit Auto (Bld) [Volum e fraction]on 08-02-2024 Hematocrit (Bld) [Volume fraction] 43.7 % 36.0-48.0 [facility] Hemoglobin [Mass/volume] in Bloodon 08-02-2024 Hemoglobin (Bld) [Mass/Vol] 14.1 g/dL 12.0-16.0 [facility] Laboratory - Hematology and Cell countson 08-02-2024 Immature granulocytes/100 WBC (Bld) 0.2 % 0.0-0.5 [facility] Leukocytes [#/volume] correc jocelynn for nucleated erythrocytes in Blood by Automated counon 08-02-2024 WBC corrected for nucl RBC Auto (Bld) [#/Vol] 9.0 10 3/uL 4.0-11.0 [facility] Lymphocytes Auto (Bld) [#/Vo l]on 08-02-2024 Lymphocytes (Bld) [#/Vol] 3.0 10 3/uL 1.2-3.8 [facility] Lymphocytes/100 WBC Auto (Bl d)on 08-02-2024 Lymphocytes/100 WBC (Bld) 33.4 % 20.5-60.0 [facility] MCH Auto (RBC) [Entitic mass ]on 08-02-2024 MCH (RBC) [Entitic mass] 26.7 pg 26.7-34.0 [facility] MCHC Auto (RBC) [Mass/Vol]on 08-02-2024 MCHC (RBC) [Mass/Vol] 32.3 g/dL 29.9-35.2 [facility] MCV Auto (RBC) [Entitic vol] on 08-02-2024 MCV (RBC) [Entitic vol] 82.8 fL 81.0-99.0 [facility] Monocytes Auto (Bld) [#/Vol] on 08-02-2024 Monocytes (Bld) [#/Vol] 0.5 10 3/uL 0.3-0.8 [facility] Monocytes/100 WBC Auto (Bld) on 08-02-2024 Monocytes/100 WBC (Bld) 5.4 % 1.7-12.0 [facility] Neutrophils Auto (Bld) [#/Vo l]on 08-02-2024 Neutrophils (Bld) [#/Vol] 5.3 10 3/uL 1.4-6.5 [facility] Neutrophils/100 WBC Auto (Bl d)on 08-02-2024 Neutrophils/100 WBC (Bld) 58.8 % 43.0-75.0 [facility] No Panel Informationon 08-02 Eosinophils # (Auto) 0.1 10 3/uL 0.0-0.7 [facility] Immature Granulocyte # (Auto) 0.02 10 3/uL 0.00-0.03 [facility] Platelet mean volume Auto (B ld) [Entitic vol]on 08-02-2024 Platelet mean volume (Bld) [Entitic vol] 8.9 fL Low 9.5-13.5 [facility] Platelets Auto (Bld) [#/Vol] on 08-02-2024 Platelets (Bld) [#/Vol] 369 10 3/uL 150-450 [facility] RBC Auto (Bld) [#/Vol]on RBC (Bld) [#/Vol] 5.28 10 6/uL 4.20-5.40 [facility] ALL CBC WITH AUTO DIFFon BASOPHILS ABSOLUTE AUTO 0.1 [facility] Basophils/100 WBC (Bld) 0.6 % 0.2 - 2.0 % [facility] Eosinophils/100 WBC (Bld) 1.8 % 0.9 - 7.0 % [facility] Erythrocyte distribution width (RBC) [Ratio] 13.2 % 11.0 - 15.0 % [facility] Hematocrit (Bld) [Volume fraction] 40.5 % 36.0 - 48.0 % [facility] Hemoglobin (Bld) [Mass/Vol] 13.1 g/dL 12.0 - 16.0 g/dL [facility] IMMATURE GRANULOCYTES ABS AUTO 0.02 [facility] Immature granulocytes/100 WBC (Bld) 0.2 % 0.0 - 0.5 % [facility] Interpretation and review of laboratory results Abnormal [facility] LYMPHOCYTES ABSOLUTE AUTO 2.7 [facility] Lymphocytes/100 WBC (Bld) 30.8 % 20.5 - 60.0 % [facility] MCH (RBC) [Entitic mass] 26.6 pg Low 26.7 - 34.0 pg [facility] MCHC (RBC) [Mass/Vol] 32.3 g/dL 29.9 - 35.2 g/dL [facility] MCV (RBC) [Entitic vol] 82.3 fL 81.0 - 99.0 fL [facility] MONOCYTES ABSOLUTE AUTO 0.6 [facility] Monocytes/100 WBC (Bld) 6.6 % 1.7 - 12.0 % [facility] NEUTROPHILS ABSOLUTE AUTO 5.3 [facility] Neutrophils/100 WBC (Bld) 60 % 43.0 - 75.0 % [facility] Platelet mean volume (Bld) [Entitic vol] 9.1 fL Low 9.5 - 13.5 fL [facility] TBH EO # 0.2 [facility] PLT 380 [facility] RBC 4.92 [facility] WBC 8.8 [facility] Basophils Auto (Bld) [#/Vol] on 07-23-2024 Basophils (Bld) [#/Vol] 0.1 10 3/uL 0.0-0.1 [facility] Basophils/100 WBC Auto (Bld) on 07-23-2024 Basophils/100 WBC (Bld) 0.6 % 0.2-2.0 [facility] ECG 12-LEADon 07-23-[address] [address] Electrocardiograph Report Signed Patient: KARLENE VAZQUEZ MR#: [id number] : 1990 Acct:[id number] Age/Sex: 34 / F ADM Date: 07/23/24 Loc: PST Attending Dr: Brent Roland D.O. Ordering Physician: Brent Roland D.O. 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 Measurements Intervals [employer] Rate: 71 P: 33 NE: 148 QRS: 42 QRSD: 82 T: 30 QT: 389 QTc: 424 Interpretive Statements SINUS RHYTHM POSSIBLE RIGHT VENTRICULAR CONDUCTION DELAY [RSR (QR) IN V1/V2] Borderline ECG Compared to ECG 05/02/2023 11:46:38 Sinus tachycardia no longer present Right-axis deviation no longer present Electronically Signed On 07-23-2024 11:53:48 EDT by CHUY SHABAZZ M.D. Dictated By: CHUY SHABAZZ Signed By: 07/23/24 1154 DD/ 1129 TD/TT: Medical Support Assistant: [facility] Radiology, Radiologi MD lorrie - 07/23/2024 [place] [address] Electrocardiograph Report Signed Patient: KARLENE VAZQUEZ MR#: [id number] : 1990 Acct:[id number] Age/Sex: 34 / F ADM Date: 07/23/24 Loc: PST Attending Dr: Brent Roland D.O. Ordering Physician: Brent Roland D.O. 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 Measurements Intervals [employer] Rate: 71 P: 33 NE: 148 QRS: 42 QRSD: 82 T: 30 QT: 389 QTc: 424 Interpretive Statements SINUS RHYTHM POSSIBLE RIGHT VENTRICULAR CONDUCTION DELAY [RSR (QR) IN V1/V2] Borderline ECG Compared to ECG 05/02/2023 11:46:38 Sinus tachycardia no longer present Right-axis deviation no longer present Electronically Signed On 07-23-2024 11:53:48 EDT by CHUY SHABAZZ M.D. Dictated By: CHUY SHABAZZ Signed By: 07/23/24 1157 DD/ 1129 TD/TT: Medical Support Assistant: [facility] Radiology Study observation (narrative) [facility] ECG 12-LEADOrdered By: Radio logist Radiology on 07-23-2024 [facility] Work Phone: Eosinophils/100 WBC Auto (Bl d)on 07-23-2024 Eosinophils/100 WBC (Bld) 1.8 % 0.9-7.0 [facility] Erythrocyte distribution wid th Auto (RBC) [Ratio]on 07-23-2024 Erythrocyte distribution width (RBC) [Ratio] 13.2 % 11.0-15.0 [facility] Estimated glomerular filtrat ion rate (GFR) non- Americanon 07-23-2024 GFR/1.73 sq M.predicted among non-blacks MDRD (S/P/Bld) [Vol rate/Area] mL/min/{1.73_m2} >=60 mL/min/1.7 3m 2 [facility] Globulin Calc (S) [Mass/Vol] on 07-23-2024 Globulin (S) [Mass/Vol] 3.6 g/dL [facility] Hematocrit Auto (Bld) [Volum e fraction]on 07-23-2024 Hematocrit (Bld) [Volume fraction] 40.5 % 36.0-48.0 [facility] Hemoglobin [Mass/volume] in Bloodon 07-23-2024 Hemoglobin (Bld) [Mass/Vol] 13.1 g/dL 12.0-16.0 [facility] Laboratory - Chemistry and C hemistry - challengeon 07-23-2024 Albumin [Mass/Vol] 3.5 g/dL 3.4-5.0 [facility] ALP [Catalytic activity/Vol] 70 U/L 46-116 [facility] ALT [Catalytic activity/Vol] 37 U/L 14-59 [facility] AST [Catalytic activity/Vol] 15 U/L 15-37 [facility] Bilirubin [Mass/Vol] 0.3 mg/dL 0.2-1.[address] [facility] Calcium [Mass/Vol] 8.6 mg/dL 8.5-10.1 [facility] Chloride [Moles/Vol] 105 mmol/L 98-[address] [facility] CO2 [Moles/Vol] 26.9 mmol/L 21.0-32.0 [facility] Creatinine [Mass/Vol] 0.83 mg/dL 0.55-1.02 [facility] GFR/1.73 sq M.predicted MDRD (S/P/Bld) [Vol rate/Area] mL/min/{1.73_m2} >=60 mL/min/1.7 3m 2 [facility] Glucose [Mass/Vol] 88 mg/dL 74-106 [facility] Potassium [Moles/Vol] 4.3 mmol/L 3.5-5.1 [facility] Protein [Mass/Vol] 7.1 g/dL 6.4-8.2 [facility] Sodium [Moles/Vol] 138 mmol/L 136-145 [facility] Urea nitrogen [Mass/Vol] 14.0 mg/dL 7.0-18.0 [facility] Urea nitrogen/Creatinine [Mass ratio] 16.9 mg/mg [facility] Laboratory - Hematology and Cell countson 07-23-2024 Immature granulocytes/100 WBC (Bld) 0.2 % 0.0-0.5 [facility] Leukocytes [#/volume] correc jocelynn for nucleated erythrocytes in Blood by Automated counon 07-23-2024 WBC corrected for nucl RBC Auto (Bld) [#/Vol] 8.8 10 3/uL 4.0-11.0 [facility] Lymphocytes Auto (Bld) [#/Vo l]on 07-23-2024 Lymphocytes (Bld) [#/Vol] 2.7 10 3/uL 1.2-3.8 [facility] Lymphocytes/100 WBC Auto (Bl d)on 07-23-2024 Lymphocytes/100 WBC (Bld) 30.8 % 20.5-60.0 [facility] MCH Auto (RBC) [Entitic mass ]on 07-23-2024 MCH (RBC) [Entitic mass] 26.6 pg Low 26.7-34.0 [facility] MCHC Auto (RBC) [Mass/Vol]on 07-23-2024 MCHC (RBC) [Mass/Vol] 32.3 g/dL 29.9-35.2 [facility] MCV Auto (RBC) [Entitic vol] on 07-23-2024 MCV (RBC) [Entitic vol] 82.3 fL 81.0-99.0 [facility] Monocytes Auto (Bld) [#/Vol] on 07-23-2024 Monocytes (Bld) [#/Vol] 0.6 10 3/uL 0.3-0.8 [facility] Monocytes/100 WBC Auto (Bld) on 07-23-2024 Monocytes/100 WBC (Bld) 6.6 % 1.7-12.0 [facility] Neutrophils Auto (Bld) [#/Vo l]on 07-23-2024 Neutrophils (Bld) [#/Vol] 5.3 10 3/uL 1.4-6.5 [facility] Neutrophils/100 WBC Auto (Bl d)on 07-23-2024 Neutrophils/100 WBC (Bld) 60.0 % 43.0-75.0 [facility] No Panel Informationon 07-23 Eosinophils # (Auto) 0.2 10 3/uL 0.0-0.7 [facility] Immature Granulocyte # (Auto) 0.02 10 3/uL 0.00-0.03 [facility] Platelet mean volume Auto (B ld) [Entitic vol]on 07-23-2024 Platelet mean volume (Bld) [Entitic vol] 9.1 fL Low 9.5-13.5 [facility] Platelets Auto (Bld) [#/Vol] on 07-23-2024 Platelets (Bld) [#/Vol] 380 10 3/uL 150-450 [facility] RBC Auto (Bld) [#/Vol]on RBC (Bld) [#/Vol] 4.92 10 6/uL 4.20-5.40 [facility] Serum or plasma albumin/glob ulin mass ratioon 07-23-2024 Albumin/Globulin [Mass ratio] 1.0 {ratio} [facility] Serum or plasma anion gap de terminationon 07-23-2024 Anion gap [Moles/Vol] 10.4 mmol/L [facility] RECURRENT VAGINITIS (HTRX)on 07-11-2024 ATOPOBIUM VAGINAE 30.718 Abnormal [facility] ATOPOBIUM VAGINAE Detected Abnormal [facility] BVAB 2,3 (BACTERIAL VAGINOSIS ASSOCIATED BACTERIA 2, 3); MOBILUNCUS SPP 0 [facility] BVAB 2,3 (BACTERIAL VAGINOSIS ASSOCIATED BACTERIA 2, 3); MOBILUNCUS SPP Not detected [facility] DARIA ALBICANS, PARAPSILOSIS, TROPICALIS 0 [facility] DARIA ALBICANS, PARAPSILOSIS, TROPICALIS Not detected [facility] DARIA GLABRATA 0 [facility] DARIA GLABRATA Not detected [facility] DARIA KRUSEI 0 [facility] DARIA KRUSEI Not detected [facility] CHLAMYDIA TRACHOMATIS 0 [facility] CHLAMYDIA TRACHOMATIS Not detected N [facility] GARDNERELLA VAGINALIS 0 [facility] GARDNERELLA VAGINALIS Not detected N [facility] Interpretation and review of laboratory results Abnormal [facility] MEGASPHAERA (TYPES 1, 2) 0 [facility] MEGASPHAERA (TYPES 1, 2) Not detected [facility] MYCOPLASMA GENITALIUM 0 [facility] MYCOPLASMA GENITALIUM Not detected N [facility] NEISSERIA GONORRHOEAE 0 [facility] NEISSERIA GONORRHOEAE Not detected N [facility] TRICHOMONAS VAGINALIS 0 [facility] TRICHOMONAS VAGINALIS Not detected N [facility] Urinalysis macro (dipstick) panel (U)on 07-10-2024 Bilirubin, UA Negative Negative - 4(70) +++ mg/dL [facility] Blood, UA Negative Negative - 50 Arnulfo/mcL [facility] Clarity, UA Clear [facility] Color, UA Yellow [facility] Glucose, UA Negative Negative - 1999(110) ++++ mg/dL [facility] Interpretation and review of laboratory results Normal [facility] Ketones, UA Negative Negative - 160(16) ++++ mg/dL [facility] Leukocytes, UA Negative Negative - 500+++ Corrina/mcL [facility] Nitrite, UA Negative Negative - Positive [facility] pH, UA 7 5 - 9 [facility] Protein, UA Negative Negative - 1999(20) ++++ mg/dL [facility] Spec Grav, UA 1.025 1 - 1.03 [facility] Urobilinogen, UA 0.2 0.2 - 12 mg/dL [facility] US PELVIS W/ TRANSVAGINALon 07-03-2024 [place] [address] Ultrasound Report Signed Patient: KARLENE VAZQUEZ MR#: [id number] : 1990 Acct:[id number] Age/Sex: 34 / F ADM Date: 07/03/24 Loc: US Attending Dr: Brent Roland D.O. Ordering Physician: Brent Roland D.O. Date of Service: 07/03/24 Procedure(s): US pelvis w/ transvaginal Accession Number(s): [id number] cc: Surya Hodges M.D.; Brent Roland D.O. [place] [id number] Patient Name: KARLENE VAZQUEZ MRN: [id number] date: 1990 Sex: F Assigned Patient Location: US Current Patient Location: US Accession/Order Number: [id number] Exam Date: 07/03/2024 09:28 Report Date: 07/03/2024 [...] Jovan Martin M.D.07/03/2024 9:30 AM Dictation Location: [place] [address] Electronically authenticated by: [id number] Y Date: 07/03/2024 09:30 Dictated By: Jovan Martin D.O. Signed By: 07/03/24932 DD/ 9 TD/TT: Medical Support Assistant: [facility] Radiology, Radiologi MD lorrie - 07/03/2024 [place] [address] Ultrasound Report Signed Patient: KARLENE VAZQUEZ MR#: [id number] : 1990 Acct:[id number] Age/Sex: 34 / F ADM Date: 07/03/24 Loc: US Attending Dr: Brent Roland D.O. Ordering Physician: Brent Roland D.O. Date of Service: 07/03/24 Procedure(s): US pelvis w/ transvaginal Accession Number(s): [id number] cc: Surya Hodges M.D.; Brent Roland D.O. The [address] [id number] Patient Name: KARLENE VAZQUEZ MRN: [facility]:[id number] date: 1990 Sex: F Assigned Patient Location: Current Patient Location: US Accession/Order Number: [id number] Exam Date: 07/03/2024 09:28 Report Date: 07/03/2024 [...] Jovan Martin M.D.07/03/2024 9:30 AM Dictation Location: [place] [address] Electronically authenticated by: [id number] Y Date: 07/03/2024 09:30 Dictated By: Jovan Martin D.O. Signed By: 07/03/2433 DD/ 9 TD/TT: Medical Support Assistant: [facility] Radiology Study observation (narrative) [facility] US PELVIS W/ TRANSVAGINALOrd ered By: Radiologist Radiology on 07-03-2024 [facility] Work Phone: Basophils Auto (Bld) [#/Vol] on 09-07-2023 Basophils (Bld) [#/Vol] 0.0 10 3/uL 0.0-0.1 [facility] Basophils/100 WBC Auto (Bld) on 09-07-2023 Basophils/100 WBC (Bld) 0.5 % 0.2-2.0 [facility] Cholesterol in LDL Calc [Mas s/Vol]on 09-07-2023 Cholesterol in LDL [Mass/Vol] 149.0 mg/dL [facility] Comment on above: <100 mg/dl [id number] 0-129 mg/dl NEAR OR ABOVE [id number] mg/dl BORDERLINE [id number] mg/dl HIGH>190 mg/dl VERY HIGH Cholesterol in VLDL Calc [Ma ss/Vol]on 09-07-2023 Cholesterol in VLDL [Mass/Vol] 20.4 mg/dL [facility] Eosinophils/100 WBC Auto (Bl d)on 09-07-2023 Eosinophils/100 WBC (Bld) 1.6 % 0.9-7.0 [facility] Erythrocyte distribution wid th Auto (RBC) [Ratio]on 09-07-2023 Erythrocyte distribution width (RBC) [Ratio] 13.2 % 11.0-15.0 [facility] Estimated glomerular filtrat ion rate (GFR) non- Americanon 09-07-2023 GFR/1.73 sq M.predicted among non-blacks MDRD (S/P/Bld) [Vol rate/Area] mL/min/{1.73_m2} >=60 [facility] Globulin Calc (S) [Mass/Vol] on 09-07-2023 Globulin (S) [Mass/Vol] 3.8 g/dL [facility] Hematocrit Auto (Bld) [Volum e fraction]on 09-07-2023 Hematocrit (Bld) [Volume fraction] 41.8 % 36.0-48.0 [facility] Hemoglobin [Mass/volume] in Bloodon 09-07-2023 Hemoglobin (Bld) [Mass/Vol] 13.3 g/dL 12.0-16.0 [facility] Laboratory - Chemistry and C hemistry - challengeon 09-07-2023 Albumin [Mass/Vol] 3.9 g/dL 3.4-5.0 [facility] ALP [Catalytic activity/Vol] 70 U/L 46-116 [facility] ALT [Catalytic activity/Vol] 20 U/L 14-59 [facility] AST [Catalytic activity/Vol] 12 U/L Low 15-37 [facility] Bilirubin [Mass/Vol] 0.6 mg/dL 0.2-1.[address] [facility] Calcium [Mass/Vol] 8.7 mg/dL 8.5-10.1 [facility] Chloride [Moles/Vol] 102 mmol/L 98-[address] [facility] Cholesterol [Mass/Vol] 226 mg/dL High <=200 [facility] Cholesterol in HDL [Mass/Vol] 57 mg/dL 40-60 [facility] Comment on above: > or =60 mg/dl - LOW CARDIOVASCULAR RISK<40 mg/dl - HIGH CARDIOVASCULAR RISK CO2 [Moles/Vol] 27.2 mmol/L 21.0-32.0 [facility] Creatinine [Mass/Vol] 0.86 mg/dL 0.55-1.02 [facility] GFR/1.73 sq M.predicted MDRD (S/P/Bld) [Vol rate/Area] mL/min/{1.73_m2} >=60 [facility] Glucose [Mass/Vol] 89 mg/dL 74-106 [facility] Potassium [Moles/Vol] 4.0 mmol/L 3.5-5.1 [facility] Protein [Mass/Vol] 7.7 g/dL 6.4-8.2 [facility] Sodium [Moles/Vol] 139 mmol/L 136-145 [facility] Triglyceride [Mass/Vol] 102 mg/dL <=150 [facility] Urea nitrogen [Mass/Vol] 9.0 mg/dL 7.0-18.0 [facility] Urea nitrogen/Creatinine [Mass ratio] 10.5 mg/mg [facility] Laboratory - Hematology and Cell countson 09-07-2023 Immature granulocytes/100 WBC (Bld) 0.2 % 0.0-0.5 [facility] Leukocytes [#/volume] correc jocelynn for nucleated erythrocytes in Blood by Automated counon 09-07-2023 WBC corrected for nucl RBC Auto (Bld) [#/Vol] 8.0 10 3/uL 4.0-11.0 [facility] Lymphocytes Auto (Bld) [#/Vo l]on 09-07-2023 Lymphocytes (Bld) [#/Vol] 2.4 10 3/uL 1.2-3.8 [facility] Lymphocytes/100 WBC Auto (Bl d)on 09-07-2023 Lymphocytes/100 WBC (Bld) 29.7 % 20.5-60.0 [facility] MCH Auto (RBC) [Entitic mass ]on 09-07-2023 MCH (RBC) [Entitic mass] 26.3 pg Low 26.7-34.0 [facility] MCHC Auto (RBC) [Mass/Vol]on 09-07-2023 MCHC (RBC) [Mass/Vol] 31.8 g/dL 29.9-35.2 [facility] MCV Auto (RBC) [Entitic vol] on 09-07-2023 MCV (RBC) [Entitic vol] 82.6 fL 81.0-99.0 [facility] Monocytes Auto (Bld) [#/Vol] on 09-07-2023 Monocytes (Bld) [#/Vol] 0.4 10 3/uL 0.3-0.8 [facility] Monocytes/100 WBC Auto (Bld) on 09-07-2023 Monocytes/100 WBC (Bld) 5.5 % 1.7-12.0 [facility] Neutrophils Auto (Bld) [#/Vo l]on 09-07-2023 Neutrophils (Bld) [#/Vol] 5.0 10 3/uL 1.4-6.5 [facility] Neutrophils/100 WBC Auto (Bl d)on 09-07-2023 Neutrophils/100 WBC (Bld) 62.5 % 43.0-75.0 [facility] No Panel Informationon 09-06 Eosinophils # (Auto) 0.1 10 3/uL 0.0-0.7 [facility] Immature Granulocyte # (Auto) 0.02 10 3/uL 0.00-0.03 [facility] Platelet mean volume Auto (B ld) [Entitic vol]on 09-07-2023 Platelet mean volume (Bld) [Entitic vol] 9.4 fL Low 9.5-13.5 [facility] Platelets Auto (Bld) [#/Vol] on 09-07-2023 Platelets (Bld) [#/Vol] 381 10 3/uL 150-450 [facility] RBC Auto (Bld) [#/Vol]on RBC (Bld) [#/Vol] 5.06 10 6/uL 4.20-5.40 [facility] Serum or plasma albumin/glob ulin mass ratioon 09-07-2023 Albumin/Globulin [Mass ratio] 1.0 {ratio} [facility] Serum or plasma anion gap de terminationon 09-07-2023 Anion gap [Moles/Vol] 13.8 mmol/L [facility] Serum or plasma total choles terol/high density lipoprotein (HDL) cholesterol mass linwood 09-07-2023 Cholesterol.total/Chol esterol in HDL [Mass ratio] 4.0 {ratio} [facility] Comment on above: 3.3 - 4.4 LOW RISK4. 4 - 7.1 AVERAGE RISK7.1 - 11.0 MODERATE RISK>11.0 HIGH RISK Basophils Auto (Bld) [#/Vol] on 05-02-2023 Basophils (Bld) [#/Vol] 0.1 10 3/uL 0.0-0.1 [facility] Basophils/100 WBC Auto (Bld) on 05-02-2023 Basophils/100 WBC (Bld) 0.4 % 0.2-2.0 [facility] Eosinophils/100 WBC Auto (Bl d)on 05-02-2023 Eosinophils/100 WBC (Bld) 0.1 % 0.9-7.0 [facility] Erythrocyte distribution wid th Auto (RBC) [Ratio]on 05-02-2023 Erythrocyte distribution width (RBC) [Ratio] 13.1 % 11.0-15.0 [facility] Estimated glomerular filtrat ion rate (GFR) non- Americanon 05-02-2023 GFR/1.73 sq M.predicted among non-blacks MDRD (S/P/Bld) [Vol rate/Area] mL/min/{1.73_m2} >=60 [facility] Hematocrit Auto (Bld) [Volum e fraction]on 05-02-2023 Hematocrit (Bld) [Volume fraction] 41.6 % 36.0-48.0 [facility] Hemoglobin [Mass/volume] in Bloodon 05-02-2023 Hemoglobin (Bld) [Mass/Vol] 13.6 g/dL 12.0-16.0 [facility] Laboratory - Chemistry and C hemistry - challengeon 05-02-2023 Calcium [Mass/Vol] 8.7 mg/dL 8.5-10.1 [facility] Chloride [Moles/Vol] 101 mmol/L 98-[address] [facility] CO2 [Moles/Vol] 24.8 mmol/L 21.0-32.0 [facility] Creatinine [Mass/Vol] 0.89 mg/dL 0.55-1.02 [facility] GFR/1.73 sq M.predicted MDRD (S/P/Bld) [Vol rate/Area] mL/min/{1.73_m2} >=60 [facility] Glucose [Mass/Vol] 112 mg/dL 74-106 [facility] Potassium [Moles/Vol] 4.0 mmol/L 3.5-5.1 [facility] Sodium [Moles/Vol] 137 mmol/L 136-145 [facility] Urea nitrogen [Mass/Vol] 5.0 mg/dL 7.0-18.0 [facility] Urea nitrogen/Creatinine [Mass ratio] 5.6 mg/mg [facility] Laboratory - Hematology and Cell countson 05-02-2023 Immature granulocytes/100 WBC (Bld) 0.3 % 0.0-0.5 [facility] Laboratory - Microbiology an d Antimicrobial susceptibilityon 05-02-2023 S. pyogenes Ag Ql (Unsp spec) Positive [facility] SARS-CoV-2 (COVID-19) RNA LEO+probe Ql (Unsp spec) Negative NEGATIVE [facility] Comment on above: This test has [...] of Covid-19 under section 564(b)(1) of theAct, 21 U.S.C. 360bbb-3(b)(1), unless the declaration isterminated or authorization is revoked sooner. Leukocytes [#/volume] correc jocelynn for nucleated erythrocytes in Blood by Automated counon 05-02-2023 WBC corrected for nucl RBC Auto (Bld) [#/Vol] 12.4 10 3/uL 4.0-11.0 [facility] Lymphocytes Auto (Bld) [#/Vo l]on 05-02-2023 Lymphocytes (Bld) [#/Vol] 1.0 10 3/uL 1.2-3.8 [facility] Lymphocytes/100 WBC Auto (Bl d)on 05-02-2023 Lymphocytes/100 WBC (Bld) 7.9 % 20.5-60.0 [facility] MCH Auto (RBC) [Entitic mass ]on 05-02-2023 MCH (RBC) [Entitic mass] 27.9 pg 26.7-34.0 [facility] MCHC Auto (RBC) [Mass/Vol]on 05-02-2023 MCHC (RBC) [Mass/Vol] 32.7 g/dL 29.9-35.2 [facility] MCV Auto (RBC) [Entitic vol] on 05-02-2023 MCV (RBC) [Entitic vol] 85.2 fL 81.0-99.0 [facility] Monocytes Auto (Bld) [#/Vol] on 05-02-2023 Monocytes (Bld) [#/Vol] 0.8 10 3/uL 0.3-0.8 [facility] Monocytes/100 WBC Auto (Bld) on 05-02-2023 Monocytes/100 WBC (Bld) 6.3 % 1.7-12.0 [facility] Neutrophils Auto (Bld) [#/Vo l]on 05-02-2023 Neutrophils (Bld) [#/Vol] 10.5 10 3/uL 1.4-6.5 [facility] Neutrophils/100 WBC Auto (Bl d)on 05-02-2023 Neutrophils/100 WBC (Bld) 85.0 % 43.0-75.0 [facility] No Panel Informationon 05-02 Bedside Influenza Type A Antigen Negative [facility] Comment on above: Negative for Flu A p rotein antigen. Infection due to Flu Acannot be ruled out. Flu A antigen in the sample may bebelow the detection limit of the test. Bedside Influenza Type B Antigen Negative [facility] Comment on above: Negative for Flu B p rotein antigen. Infection due to Flu Bcannot be ruled out. Flu B antigen in the sample may bebelow the detection limit of the test. Eosinophils # (Auto) 0.0 10 3/uL 0.0-0.7 [facility] Immature Granulocyte # (Auto) 0.04 10 3/uL 0.00-0.03 [facility] Monoscreen Negative NEGATIVE [facility] Platelet mean volume Auto (B ld) [Entitic vol]on 05-02-2023 Platelet mean volume (Bld) [Entitic vol] 8.9 fL 9.5-13.5 [facility] Platelets Auto (Bld) [#/Vol] on 05-02-2023 Platelets (Bld) [#/Vol] 369 10 3/uL 150-450 [facility] RBC Auto (Bld) [#/Vol]on RBC (Bld) [#/Vol] 4.88 10 6/uL 4.20-5.40 [facility] Serum or plasma anion gap de terminationon 05-02-2023 Anion gap [Moles/Vol] 15.2 mmol/L [facility] Cytology Cervical or vaginal smear or scraping studyOrdered By: Kenyatta Salazar on 12-28-2022 [facility] Cholesterol [Mass/volume] in Serum or PlasmaOrdered By: Baljinder Polanco on 12-01-2022 Cholesterol [Mass/Vol] 214 mg/dL 140-200 [facility] Comment on above: Chol less than 200 m g/dl low riskChol 201-239 mg/dl borderline riskChol 240 mg/dl and greater high risk Cholesterol in LDL Calc [Mas s/Vol]Ordered By: Baljinder Polanco on 12-01-2022 Cholesterol in LDL [Mass/Vol] 132 mg/dL 0-100 [facility] Comment on above: LDL ATP III CLASSIFI CATIONLDL less than 100 mg/dL OptimalLDL 100-129 mg/dL Near or above optimalLDL 130-159 mg/dL Borderline highLDL 160-189 mg/dL HighLDL greater than 189 mg/dL Very high Cholesterol in VLDL Calc [Ma ss/Vol]Ordered By: Baljinder Polanco on 12-01-2022 Cholesterol in VLDL [Mass/Vol] 27 mg/dL [facility] Glucose mean value [Mass/vol ume] in Blood Estimated from glycated hemoglobinOrdered By: Baljinder Polanco on 12-01-2022 Average glucose Estimated from glycated hemoglobin (Bld) [Mass/Vol] 120 mg/dL [facility] Hemoglobin A1c percentageOrd ered By: Baljinder Polanco on 12-01-2022 HbA1c (Bld) [Mass fraction] 5.8 % 4.3-5.6 [facility] Comment on above: Increased risk for d iabetes: 5.7 - 6.4diabetes: >6.4glycemic control for adults with diabetes: <7.0 Serum or plasma high density lipoprotein (HDL) cholesterol measurementOrdered By: Baljinder Polanco on 12-01-2022 Cholesterol in HDL [Mass/Vol] 54 mg/dL 23-92 [facility] Comment on above: HDL CHOL ATP-III CLA SSIFICATION Cardiovascular RiskHDL > or equal to 60 mg/dL LOWHDL < 40 mg/dL HIGH Serum or plasma total choles terol/high density lipoprotein (HDL) cholesterol mass ratOrdered By: Baljinder Polanco on 12-01-2022 Cholesterol.total/Chol esterol in HDL [Mass ratio] 4.0 {ratio} <5.0 [facility] Triglyceride [Mass/volume] i n Serum or PlasmaOrdered By: Baljinder Polanco on 12-01-2022 Triglyceride [Mass/Vol] 139 mg/dL 0-149 [facility] Comment on above: TRIG ATP III CLASSIF ICATIONTRIG less than 150 mg/dL NormalTRIG 150-199 mg/dL Borderline highTRIG 200-500 mg/dL High TRIG greater than 500 mg/dL Very highStandard traceable to the Center for Disease Conrtrol and Prevention (CDC) test method. Troponin I.cardiac [Mass/vol ume] in Serum or Plasma by Detection limit <= 0.01 ng/Ordered By: Baljinder Polanco on 12-01-2022 Troponin I.cardiac DL <= 0.01 ng/mL [Mass/Vol] 27.1 pg/mL 0.0-15.0 [facility] Activated partial thrombopla stin time (aPTT) in platelet poor plasma by coagulation aOrdered By: Marcio Steven on 11-30-2022 aPTT Coag (PPP) [Time] 32.4 s 25.1-36.5 [facility] Comment on above: A hematocrit value g reater than 55% may lead to inaccurate results in coagulation testing. Patients having hematocrit values >55% require a special collection tube for coagulation studies. Please contact the laboratory at [phone] for redraw instructions. Alanine aminotransferase [En zymatic activity/volume] in Serum or PlasmaOrdered By: Marcio Steven on 11-30-2022 ALT [Catalytic activity/Vol] 16 U/L 7-52 [facility] Albumin [Mass/volume] in Ser um or Plasma by Bromocresol green (BCG) dye binding methoOrdered By: Marcio Steven on 11-30-2022 Albumin BCG dye [Mass/Vol] 4.4 g/dL 3.5-5.7 [facility] Alkaline phosphatase [Enzyma tic activity/volume] in Serum or PlasmaOrdered By: Marcio Steven on 11-30-2022 ALP [Catalytic activity/Vol] 73 U/L 34-104 [facility] Aspartate aminotransferase [ Enzymatic activity/volume] in Serum or PlasmaOrdered By: Marcio Steven on 11-30-2022 AST [Catalytic activity/Vol] 11 U/L 13-39 [facility] Basic Metabolic Panelon 11-12 Calcium [Mass/Vol] 9.6877070 mg/dL Normal 8.6-10 .3 mg/dL [facility] Other CO2 [Moles/Vol] 23.78859640 mmol/L Normal 21.0-3 1.0 mmol/L [facility] [employer] Other Creatinine [Mass/Vol] 0.31605794 mg/dL Normal 0. 60-1.20 mg/dL [facility] Other GFR/1.73 sq M.predicted MDRD (S/P/Bld) [Vol rate/Area] mL/min/{1.73_m2} [facility] Other Potassium [Moles/Vol] 4.31495122 mmol/L Normal 3 .5-5.1 mmol/L [facility] Other Basic Metabolic PanelOrdered By: Marcio Steven on 11-30-2022 Chloride [Moles/Vol] 104 mmol/L 98-[address] [facility] Glucose [Mass/Vol] 77 mg/dL 70-100 [facility] Comment on above: ADA recommended refe rence rangeRandom Glucose Reference Range is dependent on time and content of last meal. Glucose of more than 200 mg/dL in a nonstressed, ambulatory subject supports the diagnosis of Diabetes Mellitus. Sodium [Moles/Vol] 138 mmol/L 136-145 [facility] Urea nitrogen [Mass/Vol] 9 mg/dL 7-25 [facility] Basophils Auto (Bld) [#/Vol] Ordered By: Marcio Steven on 11-30-2022 Basophils (Bld) [#/Vol] 0.1 10*3/uL 0.0-0.2 [facility] Basophils/100 WBC Auto (Bld) Ordered By: Marcio Steven on 11-30-2022 Basophils/100 WBC (Bld) 0.8 % . [facility] Bilirubin Test strip Ql (U)O rdered By: Marcio Steven on 11-30-2022 Bilirubin Ql (U) Negative Negative [facility] Bilirubin.direct [Mass/volum e] in Serum or PlasmaOrdered By: Marcio Steven on 11-30-2022 Bilirubin.direct [Mass/Vol] 0.00 mg/dL 0.03-0.18 [facility] Comment on above: If the DBIL is less than 0.1, IBIL is not able to becalculated. Bilirubin.total [Mass/volume ] in Serum or PlasmaOrdered By: Marcio Steven on 11-30-2022 Bilirubin [Mass/Vol] 0.9 mg/dL 0.3-1.[address] [facility] COVID-19 Detected/Not Detect edOrdered By: Marcio Steven on 11-30-2022 SARS-CoV-2 (COVID-19) RNA LEO+non-probe Ql (Nph) Not detected Not Detecte [facility] Comment on above: This is a duplicate RP2.1 COVID (PCR) result to be used for statistical tracking purpose only. Calcium [Mass/volume] in Ser um or PlasmaOrdered By: Marcio Steven on 11-30-2022 Calcium [Mass/Vol] 9.5 mg/dL 8.6-10.3 [facility] Carbon dioxide, total [Moles /volume] in Serum or PlasmaOrdered By: Marcio Steven on 11-30-2022 CO2 [Moles/Vol] 23.9 mmol/L 21.0-31.0 [facility] Color Auto (U)Ordered By: Baljeet Steven on 11-30-2022 Color (U) Yellow Yellow [facility] Complete Blood Count Auto Di ffon 11-30-2022 Basophils (Bld) [#/Vol] 0.512311751 10*3/uL Normal 0.0-0.2 10*3/uL [facility] Other Basophils/100 WBC (Bld) 0.800 % . % [facility] Other Eosinophils (Bld) [#/Vol] 0.960723994 10*3/uL Normal 0.0-0.45 10*3/uL [facility] Other Eosinophils/100 WBC (Bld) 0.900 % . % [facility] Other Erythrocyte distribution width (RBC) [Ratio] 14.300 % Normal 11.9-15.3 % [facility] Other Hematocrit (Bld) [Volume fraction] 41.000 % Normal 34.0-46.4 % [facility] Other Hemoglobin (Bld) [Mass/Vol] 13.008659 g/dL Normal 11.8-15.4 g/dL [facility] Other Lymphocytes (Bld) [#/Vol] 2.263848174 10*3/uL Normal 1.00-4.8 10*3/uL [facility] Other Lymphocytes/100 WBC (Bld) 32.300 % . % [facility] Other MCH (RBC) [Entitic mass] 27.0000 pg Normal 24.7-34.3 pg [facility] Other MCV (RBC) [Entitic vol] 81.0000 fL Normal 80-100 fL [facility] Other Monocytes (Bld) [#/Vol] 0.279615340 10*3/uL Normal 0.0-0.8 10*3/uL [facility] Other Monocytes/100 WBC (Bld) 6.800 % . % [facility] Other Neutrophils (Bld) [#/Vol] 4.247878571 10*3/uL Normal 1.8-7.7 10*3/uL [facility] Other Neutrophils/100 WBC (Bld) 59.200 % . % [facility] Other Platelet mean volume (Bld) [Entitic vol] 7.2000 fL Normal 6.3-10.7 fL [facility] Other WBC (Bld) [#/Vol] 8.009133575 10*3/uL Normal 3.8 -11.6 10*3/uL [facility] Other Complete Blood Count Auto Diff 8.2 10*3/uL Normal 3.8-11.6 10*3/uL [facility] Other Complete Blood Count Auto Diff 33.3 g/dL Normal 32.0-35.0 g/dL [facility] Other Complete Blood Count Auto Diff 0.2 /100{WBC} Normal 0-0.5 /100{WBC} [facility] Other Complete Blood Count Auto Di ffOrdered By: Marcio Steven on 11-30-2022 Platelets (Bld) [#/Vol] 368 10*3/uL 150-450 [facility] RBC (Bld) [#/Vol] 5.06 10*6/uL 3.60-5.00 [facility] Creatine kinase [Enzymatic a ctivity/volume] in Serum or PlasmaOrdered By: Marcio Steven on 11-30-2022 CK [Catalytic activity/Vol] 18 U/L 30-223 [facility] Creatinine [Mass/volume] in Serum or PlasmaOrdered By: Marcio Steven on 11-30-2022 Creatinine [Mass/Vol] 0.83 mg/dL 0.60-1.20 [facility] Eosinophils Auto (Bld) [#/Vo l]Ordered By: Marcio Steven on 11-30-2022 Eosinophils (Bld) [#/Vol] 0.1 10*3/uL 0.0-0.45 [facility] Eosinophils/100 WBC Auto (Bl d)Ordered By: Marcio Steven on 11-30-2022 Eosinophils/100 WBC (Bld) 0.9 % . [facility] Erythrocyte distribution wid th Auto (RBC) [Ratio]Ordered By: Marcio Steven on 11-30-2022 Erythrocyte distribution width (RBC) [Ratio] 14.3 % 11.9-15.3 [facility] Fibrin D-dimer [Presence] in Platelet poor plasma by Latex agglutinationOrdered By: Marcio Steven on 11-30-2022 Fibrin D-dimer LA Ql (PPP) < 200 ng/mL 0-243 [facility] Comment on above: The reference range [...] coagulation studies. Please contact the laboratory at [phone] for redraw instructions. Free T4 (Free Thyroxine)on 0 11-30-2022 Free T4 [Mass/Vol] 1.83252935 ng/dL High 0.61- 1.12 ng/dL [facility] Other Globulin Calc (S) [Mass/Vol] Ordered By: Marcio Steven on 11-30-2022 Globulin (S) [Mass/Vol] 3.2 g/dL [facility] Glucose Glucometer (BldC) [M ass/Vol]Ordered By: Baljinder Polanco on 11-30-2022 Glucose [Mass/Vol] 100 mg/dL [facility] Comment on above: Random Glucose Refer ence Range is dependent on time and content of last meal. Glucose of more than 200 mg/dL in a nonstressed, ambulatory subject supports the diagnosis of Diabetes Mellitus. Hematocrit Auto (Bld) [Volum e fraction]Ordered By: Marcio Steven on 11-30-2022 Hematocrit (Bld) [Volume fraction] 41.0 % 34.0-46.4 [facility] Hemoglobin [Mass/volume] in BloodOrdered By: Marcio Steven on 11-30-2022 Hemoglobin (Bld) [Mass/Vol] 13.7 g/dL 11.8-15.4 [facility] INR in Platelet poor plasma by Coagulation assayOrdered By: Marcio Steven on 11-30-2022 INR Coag (PPP) [Relative time] 1.1 {INR} [facility] Comment on above: INR Therapeutic Rang [...] on 11-30-2022 Ketones (U) [Mass/Vol] Trace Negative [facility] Leukocytes [#/volume] correc jocelynn for nucleated erythrocytes in Blood by Automated counOrdered By: Marcio Steven on 11-30-2022 WBC corrected for nucl RBC Auto (Bld) [#/Vol] 8.2 10*3/uL 3.8-11.6 [facility] Lymphocytes Auto (Bld) [#/Vo l]Ordered By: Marcio Steven on 11-30-2022 Lymphocytes (Bld) [#/Vol] 2.7 10*3/uL 1.00-4.8 [facility] Lymphocytes/100 WBC Auto (Bl d)Ordered By: Marcio Steven on 11-30-2022 Lymphocytes/100 WBC (Bld) 32.3 % . [facility] MCH Auto (RBC) [Entitic mass ]Ordered By: Marcio Steven on 11-30-2022 MCH (RBC) [Entitic mass] 27.0 pg 24.7-34.3 [facility] MCHC Auto (RBC) [Mass/Vol]Or dered By: Marcio Steven on 11-30-2022 MCHC (RBC) [Mass/Vol] 33.3 g/dL 32.0-35.0 [facility] MCV Auto (RBC) [Entitic vol] Ordered By: Marcio Steven on 11-30-2022 MCV (RBC) [Entitic vol] 81.0 fL 80-100 [facility] Magnesium [Mass/volume] in S abdifatah or PlasmaOrdered By: Marcio Steven on 11-30-2022 Magnesium [Mass/Vol] 1.9 mg/dL 1.9-2.[address] [facility] Monocyte distribution width [Entitic volume] in Blood by AutomatedOrdered By: Marcio Steven on 11-30-2022 Monocyte distribution width Auto (Bld) [Entitic vol] 19.22 % 0.00-20.00 [facility] Monocytes Auto (Bld) [#/Vol] Ordered By: Marcio Steven on 11-30-2022 Monocytes (Bld) [#/Vol] 0.6 10*3/uL 0.0-0.8 [facility] Monocytes/100 WBC Auto (Bld) Ordered By: Marcio Steven on 11-30-2022 Monocytes/100 WBC (Bld) 6.8 % . [facility] Natriuretic peptide B [Mass/ Vol]Ordered By: Marcio Steven on 11-30-2022 Natriuretic peptide B (Bld) [Mass/Vol] 13.0 pg/mL 5-100 [facility] Neutrophils Auto (Bld) [#/Vo l]Ordered By: Marcio Steven on 11-30-2022 Neutrophils (Bld) [#/Vol] 4.9 10*3/uL 1.8-7.7 [facility] Neutrophils/100 WBC Auto (Bl d)Ordered By: Marcio Steven on 11-30-2022 Neutrophils/100 WBC (Bld) 59.2 % . [facility] Nitrite Test strip Ql (U)Ord ered By: Marcio Steven on 11-30-2022 Nitrite Ql (U) Negative Negative [facility] No Panel InformationOrdered By: Marcio Steven on 11-30-2022 Estimated GFR (CKD-EPI) > 60.0 mL/Min [facility] Creatinine Clearance (Chem 114.08 [facility] Nucleated erythrocytes [Pres ence] in Blood by Automated countOrdered By: Marcio Steven on 11-30-2022 Nucleated RBC Auto Ql (Bld) 0.2 /100{WBC} 0-0.5 [facility] Platelet mean volume Auto (B ld) [Entitic vol]Ordered By: Marcio Steven on 11-30-2022 Platelet mean volume (Bld) [Entitic vol] 7.2 fL 6.3-10.7 [facility] Potassium [Moles/volume] in Serum or PlasmaOrdered By: Marcio Steven on 11-30-2022 Potassium [Moles/Vol] 4.1 mmol/L 3.5-5.1 [facility] Protein Auto test strip (U) [Mass/Vol]Ordered By: Marcio Steven on 11-30-2022 Protein (U) [Mass/Vol] Negative Negative [facility] Protein [Mass/volume] in Ser um or PlasmaOrdered By: Marcio Steven on 11-30-2022 Protein [Mass/Vol] 7.6 g/dL 6.4-8.9 [facility] Prothrombin time (PT)Ordered By: Marcio Steven on 11-30-2022 PT Coag (PPP) [Time] 12.5 s 9.0-12.9 [facility] Comment on above: A hematocrit value g reater than 55% may lead to inaccurate results in coagulation testing. Patients having hematocrit values >55% require a special collection tube for coagulation studies. Please contact the laboratory at [phone] for redraw instructions. Respiratory pathogens DNA an d RNA panel - Nasopharynx by LEO with non-probe detectionOrdered By: Marcio Steven on 11-30-2022 Respiratory pathogens DNA and RNA panel LEO+non-probe (Nph) [facility] Serum or plasma albumin/glob ulin mass ratioOrdered By: Marcio Steven on 11-30-2022 Albumin/Globulin [Mass ratio] 1.4 {ratio} [facility] Serum or plasma anion gap de terminationOrdered By: Marcio Steven on 11-30-2022 Anion gap [Moles/Vol] 14.2 mmol/L 6.0-15.0 [facility] Serum or plasma non-glucuron idated bilirubin measurement (mass/volume)Ordered By: Marcio Steven on 11-30-2022 Bilirubin.indirect [Mass/Vol] 0.9 mg/dL [facility] Specific gravity Auto test s trip (U) [Rel density]Ordered By: Marcio Steven on 11-30-2022 Specific gravity (U) [Rel density] 1.013 1.001-1.03 0 [facility] Thyroid Stimulating Hormoneo n 11-30-2022 TSH Qn 0.19798111083 m[IU]/L Low 0.45-5 .33 u[iU]/mL [facility] Other Thyrotropin [Units/volume] i n Serum or PlasmaOrdered By: Marcio Steven on 11-30-2022 TSH Qn 0.03 m[IU]/L 0.45-5.33 [facility] Thyroxine (T4) free [Mass/vo lume] in Serum or PlasmaOrdered By: Marcio Steven on 11-30-2022 Free T4 [Mass/Vol] 1.56 ng/dL 0.61-1.12 [facility] Triiodothyronine (T3) Free [ Mass/volume] in Serum or PlasmaOrdered By: Marcio Steven on 11-30-2022 Free T3 [Mass/Vol] 3.89 pg/mL 2.50-3.90 [facility] Urine clarity by refractomet ry automatedOrdered By: Marcio Steven on 11-30-2022 Clarity Refractometry automated (U) Clear Clear [facility] Urine glucose measurement by automated test strip (mass/volume)Ordered By: Marcio Steven on 11-30-2022 Glucose Auto test strip (U) [Mass/Vol] Normal mg/dL Normal [facility] Urine hemoglobin detection b y automated test stripOrdered By: Marcio Steven on 11-30-2022 Hemoglobin Auto test strip Ql (U) Negative Negative [facility] Urine leukocyte esterase det ection by automated test stripOrdered By: Marcio Steven on 11-30-2022 Leukocyte esterase Auto test strip Ql (U) Negative Negative [facility] Urobilinogen Auto test strip (U) [Mass/Vol]Ordered By: Marcio Steven on 11-30-2022 Urobilinogen (U) [Mass/Vol] Normal mg/dL Normal [facility] WBC Auto (Bld) [#/Vol]Ordere d By: Marcio Steven on 11-30-2022 WBC (Bld) [#/Vol] 8.2 10*3/uL 3.8-11.6 [facility] pH Auto test strip (U)Ordere d By: Marcio Steven on 11-30-2022 pH (U) [pH] 5.0-9.0 [facility] CORTISOL FREE, SERUMon 06-17 Cortisol, Free Dialysis, LCMS 0.649 ug/dL Normal [facility] Comment on above: Result Comment: Thes e tests were developed and their performance characteristics determined by [employer]. They have not been cleared or approved by the Food and Drug Administration. Reference Range: 8 AM 0.10 - 1.20 4 PM 0.042 - 0.872 Performed By: #### R [id number] #### [facility] [address] [place] [address] Dr. Dimple Parsons CBC AUTO DIFFon 06-16-2022 BASO # 0.1 103/ul Normal 0.0-0.1 [facility] Comment on above: Performed By: #### R [id number] #### [facility] [address] [place] [address] Dr. Dimple Parsons Basophils/100 WBC (Bld) 0.6 % Normal 0.2-2.0 [facility] Comment on above: Performed By: #### R [id number] #### [facility] [address] [place] [address] Dr. Dimple Parsons EO # 0.4 103/ul Normal 0.0-0.7 [facility] Comment on above: Performed By: #### R [id number] #### [facility] [address] [place] [address] Dr. Dimple Parsons Eosinophils/100 WBC (Bld) 4.0 % Normal 0.9-7.0 [facility] Comment on above: Performed By: #### R [id number] #### [facility] [address] [place] [address] Dr. Dimple Parsons Erythrocyte distribution width (RBC) [Ratio] 13.8 % Normal 11.0-15.0 [facility] Comment on above: Performed By: #### R [id number] #### [facility] [address] [place] [address] Dr. Dimple Parsons Hematocrit (Bld) [Volume fraction] 39.8 % Normal 36.0-48.0 [facility] Comment on above: Performed By: #### R [id number] #### [facility] [address] [place] [address] Dr. Dimple Parsons Hemoglobin (Bld) [Mass/Vol] 12.9 g/dL Normal 12.0-16.0 [facility] Comment on above: Performed By: #### R [id number] #### [facility] [address] [place] [address] Dr. Dimple Parsons IG # 0.02 10e3/ul Normal 0.00-0.03 [facility] Comment on above: Performed By: #### R [id number] #### [facility] [address] [place] [address] Dr. Dimple Parsons IG % 0.2 % Normal 0.0-0.5 [facility] Comment on above: Performed By: #### R [id number] #### [facility] [address] [address] [address] Dimple Parsons LYMPH # 3.1 103/ul Normal 1.2-3.8 [facility] Comment on above: Performed By: #### R [id number] #### [facility] [address] [address] [address] Dimple Parsons Lymphocytes/100 WBC (Bld) 33.5 % Normal 20.5-60.0 [facility] Comment on above: Performed By: #### R [id number] #### [facility] [address] [address] [address] Dimple Parsons MANUAL DIFF REQ NO Normal [facility] Comment on above: Performed By: #### R [id number] #### [facility] [address] [place] [address] Dr. Dimple Parsons MCH (RBC) [Entitic mass] 26.1 pg Critically low 26.7-34.0 [facility] Comment on above: Performed By: #### R [id number] #### [facility] [address] [place] [address] Dr. Dimple Parsons MCHC (RBC) [Mass/Vol] 32.4 g/dL Normal 29.9-35.2 [facility] Comment on above: Performed By: #### R [id number] #### [facility] [address] [place] [address] Dr. Dimple Parsons MCV (RBC) [Entitic vol] 80.4 fL Critically low 81.0-99.0 [facility] Comment on above: Performed By: #### R [id number] #### [facility] [address] [address] [address] Dimple Parsons MONO # 0.5 103/ul Normal 0.3-0.8 [facility] Comment on above: Performed By: #### R [id number] #### [facility] [address] [place] [address] Dr. Dimple Parsons Monocytes/100 WBC (Bld) 5.2 % Normal 1.7-12.0 [facility] Comment on above: Performed By: #### R [id number] #### [facility] [address] [place] [address] Dr. Dimple Parsons NEUT # 5.2 103/ul Normal 1.4-6.5 [facility] Comment on above: Performed By: #### R [id number] #### [facility] [address] [place] [address] Dr. Dimple Parsons Neutrophils/100 WBC (Bld) 56.5 % Normal 43.0-75.0 [facility] Comment on above: Performed By: #### R [id number] #### [facility] [address] [place] [address] Dr. Dimple Parsons Platelet mean volume (Bld) [Entitic vol] 8.7 fL Critically low 9.5-13.5 [facility] Comment on above: Performed By: #### R [id number] #### [facility] [address] [place] [address] Dr. Dimple Parsons PLT 376 103/ul Normal 150-450 [facility] Comment on above: Performed By: #### R [id number] #### [facility] [address] [place] [address] Dr. Dimple Parsons RBC 4.95 106/ul Normal 4.20-5.40 [facility] Comment on above: Performed By: #### R [id number] #### [facility] [address] [place] [address] Dr. Dimple Parsons WBC 9.3 103/ul Normal 4.0-11.0 [facility] Comment on above: Performed By: #### R [id number] #### [facility] [address] [place] [address] Dr. Dimple Parsons TESTOSTERONE, FREE,DIRECT, T Louis 06-10-2022 Free Testosterone(Direct) 1.6 pg/mL Normal 0.0-4.2 [facility] Comment on above: Result Comment: Perf ormed at: BN Performed By: #### C BC #### [facility] [address] [place] [address] Dr. Dimple Parsons Testosterone [Mass/Vol] 22 ng/dL Normal 8-60 [facility] Comment on above: Result Comment: Perf ormed at: CB Performed By: #### C BC #### [facility] [address] [place] [address] Dr. Dimple Parsons ESTROGENon 2022 Estrogens, Total 413 pg/mL Normal [facility] Comment on above: Result Comment: Prep ubertal < 40 Female Cycle: 1-10 Days 16 - 328 11-20 Days 34 - 501 21-30 Days 48 - 350 Post-Menopausal 40 - 244 Performed By: #### D HEASUL #### [facility] [address] [address] [address] Dimple Parsons SEROTONINon 2022 Serotonin, Serum 20 ng/mL Critically low 31-207 [facility] Comment on above: Performed By: #### S EROTON #### [facility] [address] [place] [address] Dr. Dimple Parsons REVERSE T3on 06-08-2022 Reverse T3, Serum 15.6 ng/dL Normal 9.2-24.1 [facility] Comment on above: Result Comment: This test was developed and its performance characteristics determined by [employer]. It has not been cleared or approved by the Food and Drug Administration. Performed By: #### R [email or web address] #### [facility] [address] [place] [address] Dr. Dimple Parsons VIT D 1 25 DIHYDROXYon 06-07 Calcitriol(1,25 di-OH Vit D) 12.2 pg/mL Critically low 24.8-81.5 [facility] Comment on above: Performed By: #### V [id number] #### [facility] [address] [place] [address] Dr. Dimple Parsons C-PEPTIDE, SERUMon 3 C-Peptide, Serum 3.3 ng/mL Normal 1.1-4.4 [facility] Comment on above: Result Comment: C-Pe ptide reference interval is for fasting patients. Performed By: #### R [email or web address] #### [facility] [address] [address] [address] Dimple Parsons DHEA-SULFATEon 06-05-2022 DHEA-Sulfate 154.0 ug/dL Normal 84.8-378.0 [facility] Comment on above: Performed By: #### Inder CADENA #### [facility] [address] [address] [address] Dimple Parsons ESTRADIOLon 06-05-2022 Estradiol 117.0 pg/mL Normal [facility] Comment on above: Result Comment: Adul t Female: Follicular phase 12.5 - 166.0 Ovulation phase 85.8 - 498.0 Luteal phase 43.8 - 211.0 Postmenopausal <6.0 - 54.7 1st trimester 215.0 - >4300.0 Kye ECLIA methodology Performed By: #### R EVRT3 #### [facility] [address] [place] [address] Dr. Dimple Parsons INSULINon 06-05-2022 Insulin 13.1 uIU/mL Normal 2.6-24.9 [facility] Comment on above: Performed By: #### C BC #### [facility] [address] [address] [address] Dimple Parsons PROGESTERONEon 06-05-2022 Progesterone 4.8 ng/mL Normal [facility] Comment on above: Result Comment: Foll icular phase 0.1 - 0.9 Luteal phase 1.8 - 23.9 Ovulation phase 0.1 - 12.0 First trimester 11.0 - 44.3 Second trimester 25.4 - 83.3 Third trimester 58.7 - 214.0 Postmenopausal 0.0 - 0.1 Performed By: #### Inder CADENA #### [facility] [address] [place] [address] Dr. Dimple Parsons SEX HORMONE-BINDING GLOBULIN on 06-05-2022 Sex Horm Binding Glob, Serum 40.7 nmol/L Normal 24.6-122.0 [facility] Comment on above: Performed By: #### C BC #### [facility] [address] [place] [address] Dr. Dimple Parsons T3, TOTAL (TRIIODOTHYRONINE) on 06-05-2022 T3, TOTAL 89 ng/dL Normal 71-180 [facility] Comment on above: Performed By: #### Rob PABONRT3 #### [facility] [address] [place] [address] Dr. Dimple Parsons THYROID PEROXIDASE ABon 05-13 Thyroid Peroxidase (TPO) Ab 12 IU/mL Normal 0-34 [facility] Comment on above: Performed By: #### Inder CADENA #### [facility] [address] [place] [address] Dr. Dimple Parsons FERRITINon 06-04-2022 Ferritin [Mass/Vol] 193.0 ng/mL Critically high 6.2-137.0 [facility] Comment on above: Performed By: #### Inder CADENA #### [facility] [address] [place] [address] Dr. Dimple Parsons FREE T3on 06-04-2022 FREE T3 2.24 pg/mlL Normal 2.18-3.98 [facility] Comment on above: Performed By: #### Rob PABONRT3 #### [facility] [address] [place] [address] Dr. Dimple Parsons FREE T4on 06-04-2022 Free T4 [Mass/Vol] 1.14 ng/dL Normal 0.76-1.46 [facility] Comment on above: Performed By: #### Inder CADENA #### [facility] [address] [place] [address] Dr. Dimple Parsons GLUCOSE BLOODon 06-04-2022 Glucose [Mass/Vol] 92 mg/dL Normal 74-106 [facility] Comment on above: Performed By: #### Rob PABONRT3 #### [facility] [address] [place] [address] Dr. Dimple Parsons GLYCOHEMOGLOBIN A1Con 2022 ADA RECOMMENDATION SEE BELOW Normal [facility] Comment on above: Result Comment: ADA RECOMMENDED LIMIT 4.0 - 6.0 ADA THERAPEUTIC TARGET < 7.0 ACTION SUGGESTED > 7.0 Performed By: #### A 1C #### [facility] [address] [place] [address] Dr. Dimple Parsons Glucose [Mass/Vol] 100 mg/dL Normal [facility] Comment on above: Performed By: #### A 1C #### [facility] [address] [place] [address] [id number] [address] Dimple Parsons HbA1c (Bld) [Mass fraction] 5.1 % Normal 4.5-6.2 [facility] Comment on above: Performed By: #### A 1C #### [facility] [address] [place], [place] [id number] Dr. Dimple Parsons T4on 06-04-2022 T4 [Mass/Vol] 8.60 ug/dL Normal 4.80-13.90 [facility] Comment on above: Performed By: #### R EVRT3 #### [facility] [address] [place] [address] Dr. Dimple Parsons TSHon 06-04-2022 TSH 0.442 uIU/mL Normal 0.358-3.74 0 [facility] Comment on above: Performed By: #### R EVRT3 #### [facility] [address] [place] [address] Dr. Dimple Parsons US PELVIS AND TRANSVAGon [...] by: KAYLA ACOSTA Date: 2022-05-25 13:36 Normal [facility] KUB 1 VIEWon 05-21-2022 XR KUB 1 [...] DAVID ALDANA Date: 2022-05-21 06:53 Normal [facility] CBC AUTO DIFFon 05-08-2022 BASO # 0.0 103/ul Normal 0.0-0.1 [facility] Comment on above: Performed By: #### C BC #### [facility] [address] [place] [address] Dr. Dimple Parsons Basophils/100 WBC (Bld) 0.3 % Normal 0.2-2.0 [facility] Comment on above: Performed By: #### C BC #### [facility] [address] [address] [address] Dimple Parsons EO # 0.2 103/ul Normal 0.0-0.7 [facility] Comment on above: Performed By: #### C BC #### [facility] [address] [place] [address] Dr. Dimple Parsons Eosinophils/100 WBC (Bld) 1.3 % Normal 0.9-7.0 [facility] Comment on above: Performed By: #### C BC #### [facility] [address] [place] [address] Dr. Dimple Parsons Erythrocyte distribution width (RBC) [Ratio] 13.9 % Normal 11.0-15.0 [facility] Comment on above: Performed By: #### C BC #### [facility] [address] [place] [address] Dr. Dimple Parsons Hematocrit (Bld) [Volume fraction] 38.8 % Normal 36.0-48.0 [facility] Comment on above: Performed By: #### C BC #### [facility] [address] [place] [address] Dr. Dimple Parsons Hemoglobin (Bld) [Mass/Vol] 12.8 g/dL Normal 12.0-16.0 [facility] Comment on above: Performed By: #### C BC #### [facility] [address] [place] [address] Dr. Dimple Parsons IG # 0.15 10e3/ul Critically high 0.00-0.03 [facility] Comment on above: Performed By: #### C BC #### [facility] [address] [place] [address] Dr. Dimple Parsons IG % 1.3 % Critically high 0.0-0.5 [facility] Comment on above: Performed By: #### C BC #### [facility] [address] [place] [address] Dr. Dimple Parsons LYMPH # 3.4 103/ul Normal 1.2-3.8 [facility] Comment on above: Performed By: #### C BC #### [facility] [address] [place] [address] Dr. Dimple Parsons Lymphocytes/100 WBC (Bld) 28.9 % Normal 20.5-60.0 [facility] Comment on above: Performed By: #### C BC #### [facility] [address] [place] [address] Dr. Dimple Parsons MANUAL DIFF REQ NO Normal [facility] Comment on above: Performed By: #### C BC #### [facility] [address] [place] [address] Dr. Dimple Parsons MCH (RBC) [Entitic mass] 25.9 pg Critically low 26.7-34.0 [facility] Comment on above: Performed By: #### C BC #### [facility] [address] [place] [address] Dr. Dimlpe Parsons MCHC (RBC) [Mass/Vol] 33.0 g/dL Normal 29.9-35.2 [facility] Comment on above: Performed By: #### C BC #### [facility] [id number] [address] Dimple Parsons MCV (RBC) [Entitic vol] 78.5 fL Critically low 81.0-99.0 [facility] Comment on above: Performed By: #### C BC #### [facility] [address] [address] [address] Dimple Parsons MONO # 0.7 103/ul Normal 0.3-0.8 [facility] Comment on above: Performed By: #### C BC #### [facility] [address] [address] [address] Dimple Parsons Monocytes/100 WBC (Bld) 6.2 % Normal 1.7-12.0 [facility] Comment on above: Performed By: #### C BC #### [facility] [address] [place] [address] Dr. Dimple Parsons NEUT # 7.3 103/ul Critically high 1.4-6.5 [facility] Comment on above: Performed By: #### C BC #### [facility] [address] [place] [address] Dr. Dimple Parsons Neutrophils/100 WBC (Bld) 62.0 % Normal 43.0-75.0 [facility] Comment on above: Performed By: #### C BC #### [facility] [address] [place] [address] Dr. Dimple Parsons Platelet mean volume (Bld) [Entitic vol] 9.1 fL Critically low 9.5-13.5 [facility] Comment on above: Performed By: #### C BC #### [facility] [address] [place] [address] Dr. Dimple Parsons PLT 426 103/ul Normal 150-450 [facility] Comment on above: Performed By: #### C BC #### [facility] [address] [place], [place] [id number] Dr. Dimple Parsons RBC 4.94 106/ul Normal 4.20-5.40 [facility] Comment on above: Performed By: #### C BC #### [facility] [address] [place] [address] [id number] [address] Dimple Parsons WBC 11.9 103/ul Critically high 4.0-11.0 [facility] Comment on above: Performed By: #### C #### [facility] [address] [place], [place] [address] ABD/PELVIS WO CONon [...] outpatient ultrasound. Note: Exam was submitted to [facility] operations Incidental Findings call que, to call the above findings to the patient's primary care provider nonemergently. Electronically authenticated by: RERE CARLISLE Date: 2022-05-08 05:24 Normal [facility] PROF 14(COMP METB)on 023 Albumin [Mass/Vol] 4.0 g/dL Normal 3.4-5.0 [facility] Comment on above: Performed By: #### R EVRT3 #### [facility] [address] [place] [address] Dr. Dimple Parsons Albumin/Globulin [Mass ratio] 1.1 {ratio} Normal [facility] Comment on above: Performed By: #### R EVRT3 #### [facility] [address] [place] [address] Dr. Dimple Parsons ALP [Catalytic activity/Vol] 76 U/L Normal 46-116 [facility] Comment on above: Performed By: #### R EVRT3 #### [facility] [address] [place] [address] Dr. Dimple Parsons ALT [Catalytic activity/Vol] 20 U/L Normal 14-59 [facility] Comment on above: Performed By: #### R EVRT3 #### [facility] [address] [place] [address] Dr. Dimple Parsons Anion gap [Moles/Vol] 14.9 mmol/L Normal [facility] Comment on above: Performed By: #### R EVRT3 #### [facility] [address] [place] [address] Dr. Dimple Parsons AST [Catalytic activity/Vol] 19 U/L Normal 15-37 [facility] Comment on above: Performed By: #### R EVRT3 #### [facility] [address] [address] [address] Dimple Parsons Bilirubin [Mass/Vol] 0.6 mg/dL Normal 0.2-1.0 [facility] Comment on above: Performed By: #### R EVRT3 #### [facility] [address] [address] [address] Dimple Parsons Calcium [Mass/Vol] 9.0 mg/dL Normal 8.5-10.1 [facility] Comment on above: Performed By: #### R EVRT3 #### [facility] [address] [address] [address] Dimple Parsons Chloride [Moles/Vol] 103 mmol/L Normal 98-107 [facility] Comment on above: Performed By: #### R EVRT3 #### [facility] [address] [place] [address] Dr. Dimple Parsons CO2 [Moles/Vol] 25.5 mmol/L Normal 21.0-32.0 [facility] Comment on above: Performed By: #### R EVRT3 #### [facility] [address] [address] [address] Dimple Parsons Creatinine [Mass/Vol] 0.75 mg/dL Normal 0.55-1.02 [facility] Comment on above: Performed By: #### R EVRT3 #### [facility] [address] [place] [address] Dr. Dimple Parsons EGFR-AF [place] >60 Normal >=60 [facility] Comment on above: Performed By: #### R EVRT3 #### [facility] [address] [address] [address] Dimple Parsons EGFR-NON AF [place] >60 Normal >=60 [facility] Comment on above: Performed By: #### R EVRT3 #### [facility] [address] [place] [address] Dr. Dimple Parsons Globulin (S) [Mass/Vol] 3.8 g/dL Normal [facility] Comment on above: Performed By: #### R EVRT3 #### [facility] [address] [address] [address] Dimple Parsons Glucose [Mass/Vol] 107 mg/dL Critically high 74-106 [facility] Comment on above: Performed By: #### R EVRT3 #### [facility] [address] [address] [address] Dimple Parsons Potassium [Moles/Vol] 3.4 mmol/L Critically low 3.5-5.1 [facility] Comment on above: Performed By: #### R EVRT3 #### [facility] [address] [address] [address] Dimple Parsons Protein [Mass/Vol] 7.8 g/dL Normal 6.4-8.2 [facility] Comment on above: Performed By: #### R EVRT3 #### [facility] [address] [place] [address] Dr. Dimple Parsons Sodium [Moles/Vol] 140 mmol/L Normal 136-145 [facility] Comment on above: Performed By: #### R EVRT3 #### [facility] [address] [address] [address] Dimple Parsons Urea nitrogen [Mass/Vol] 7.0 mg/dL Normal 7.0-18.0 [facility] Comment on above: Performed By: #### R EVRT3 #### [facility] [address] [address] [address] Dimple Parsons Urea nitrogen/Creatinine [Mass ratio] 9.3 mg/mg Normal [facility] Comment on above: Performed By: #### R EVRT3 #### [facility] [address] [address] [address] Dimple Parsons US PELVIS TRANSVAGon 023 [...] LEATHA GALVAN Date: 2022-05-08 08:57 Normal [facility] CBC AUTO DIFFon 01-13-2022 BASO # 0.1 103/ul Normal 0.0-0.1 [facility] Comment on above: Performed By: #### C BC #### [facility] [address] [place] [address] Dr. Dimple Parsons Basophils/100 WBC (Bld) 0.5 % Normal 0.2-2.0 [facility] Comment on above: Performed By: #### C BC #### [facility] [address] [place] [address] Dr. Dimple Parsons EO # 0.2 103/ul Normal 0.0-0.7 [facility] Comment on above: Performed By: #### C BC #### [facility] [address] [place] [address] Dr. Dimple Parsons Eosinophils/100 WBC (Bld) 2.3 % Normal 0.9-7.0 [facility] Comment on above: Performed By: #### C BC #### [facility] [address] [place] [address] Dr. Dimple Parsons Erythrocyte distribution width (RBC) [Ratio] 13.2 % Normal 11.0-15.0 [facility] Comment on above: Performed By: #### C BC #### [facility] [address] [place] [address] Dr. Dimple Parsons Hematocrit (Bld) [Volume fraction] 40.5 % Normal 36.0-48.0 [facility] Comment on above: Performed By: #### C BC #### [facility] [address] [place] [address] Dr. Dimple Parsons Hemoglobin (Bld) [Mass/Vol] 13.0 g/dL Normal 12.0-16.0 [facility] Comment on above: Performed By: #### C BC #### [facility] [address] [place] [address] Dr. Dimple Parsons IG # 0.01 10e3/ul Normal 0.00-0.03 [facility] Comment on above: Performed By: #### C BC #### [facility] [address] [place] [address] Dr. Dimple Parsons IG % 0.1 % Normal 0.0-0.5 [facility] Comment on above: Performed By: #### C BC #### [facility] [address] [place] [address] Dr. Dimple Parsons LYMPH # 2.6 103/ul Normal 1.2-3.8 [facility] Comment on above: Performed By: #### C BC #### [facility] [address] [place] [address] Dr. Dimple Parsons Lymphocytes/100 WBC (Bld) 27.4 % Normal 20.5-60.0 [facility] Comment on above: Performed By: #### C BC #### [facility] [address] [place] [address] Dr. Dimple Parsons MANUAL DIFF REQ NO Normal [facility] Comment on above: Performed By: #### C BC #### [facility] [address] [place] [address] Dr. Dimple Parsons MCH (RBC) [Entitic mass] 26.4 pg Critically low 26.7-34.0 [facility] Comment on above: Performed By: #### C BC #### [facility] [address] [place] [address] Dr. Dimple Parsons MCHC (RBC) [Mass/Vol] 32.1 g/dL Normal 29.9-35.2 [facility] Comment on above: Performed By: #### C BC #### [facility] [address] [place] [address] Dr. Dimple Parsons MCV (RBC) [Entitic vol] 82.2 fL Normal 81.0-99.0 [facility] Comment on above: Performed By: #### C BC #### [facility] [address] [place] [address] Dr. Dimple Parsons MONO # 0.6 103/ul Normal 0.3-0.8 [facility] Comment on above: Performed By: #### C BC #### [facility] [address] [place] [address] Dr. Dimple Parsons Monocytes/100 WBC (Bld) 6.2 % Normal 1.7-12.0 [facility] Comment on above: Performed By: #### C BC #### [facility] [address] [place] [address] Dr. Dimple Parsons NEUT # 6.1 103/ul Normal 1.4-6.5 [facility] Comment on above: Performed By: #### C BC #### [facility] [address] [place] [address] Dr. Dimple Parsons Neutrophils/100 WBC (Bld) 63.5 % Normal 43.0-75.0 [facility] Comment on above: Performed By: #### C BC #### [facility] [address] [place] [address] Dr. Dimple Parsons Platelet mean volume (Bld) [Entitic vol] 9.0 fL Critically low 9.5-13.5 [facility] Comment on above: Performed By: #### C BC #### [facility] [address] [place] [address] Dr. Dimple Parsons PLT 346 103/ul Normal 150-450 [facility] Comment on above: Performed By: #### C BC #### [facility] [address] [place] [address] Dr. Dimple Parsons RBC 4.93 106/ul Normal 4.20-5.40 [facility] Comment on above: Performed By: #### C BC #### [facility] [address] [place] [address] Dr. Dimple Parsons WBC 9.5 103/ul Normal 4.0-11.0 [facility] Comment on above: Performed By: #### Jocelyne BC #### [facility] [address] [place] [address] Dr. Dimple Parsons FREE T4on 01-13-2022 Free T4 [Mass/Vol] 1.39 ng/dL Normal 0.76-1.46 [facility] Comment on above: Performed By: #### Jocelyne BC #### [facility] [address] [place] [address] Dr. Dimple Parsons PROF CHEM 8 (BAS METB)on Anion gap [Moles/Vol] 10.4 mmol/L Normal [facility] Comment on above: Performed By: ###Rick CADENA #### [facility] [address] [place] [address] Dr. Dimple Parsons Calcium [Mass/Vol] 9.0 mg/dL Normal 8.5-10.1 [facility] Comment on above: Performed By: ###Rick CADENA #### [facility] [address] [place] [address] Dr. Dimple Parsons Chloride [Moles/Vol] 101 mmol/L Normal 98-107 [facility] Comment on above: Performed By: ###Rick CADENA #### [facility] [address] [place] [address] Dr. Dimple Parsons CO2 [Moles/Vol] 29.3 mmol/L Normal 21.0-32.0 [facility] Comment on above: Performed By: ###Rick CADENA #### [facility] [address] [place] [address] Dr. Dimple Parsons Creatinine [Mass/Vol] 0.79 mg/dL Normal 0.55-1.02 [facility] Comment on above: Performed By: ###Rick CADENA #### [facility] [address] [place] [address] Dr. Dimple Parsons EGFR-AF [place] >60 Normal >=60 [facility] Comment on above: Performed By: ###Rick CADENA #### [facility] [address] [place] [address] Dr. Dimple Parsons EGFR-NON AF [place] >60 Normal >=60 [facility] Comment on above: Performed By: #### Inder CADENA #### [facility] [address] [address] [address] Dimple Parsons Glucose [Mass/Vol] 92 mg/dL Normal 74-106 [facility] Comment on above: Performed By: #### Inder CADENA #### [facility] [address] [address] [address] Dimple Parsons Potassium [Moles/Vol] 3.7 mmol/L Normal 3.5-5.1 [facility] Comment on above: Performed By: #### Inder CADENA #### [facility] [address] [address] [address] Dimple Parsons Sodium [Moles/Vol] 137 mmol/L Normal 136-145 [facility] Comment on above: Performed By: #### Inder CADENA #### [facility] [address] [place] [id number] Dr[address] Dimple Parsons Urea nitrogen [Mass/Vol] 11.0 mg/dL Normal 7.0-18.0 [facility] Comment on above: Performed By: ###Rick CADENA #### [facility] [address] [address] [address] Dimpel Parsons Urea nitrogen/Creatinine [Mass ratio] 13.9 mg/mg Normal [facility] Comment on above: Performed By: #### Inder CADENA #### [facility] [address] [address] [address] Dimple Parsons PROTIMEon 01-13-2022 INR Coag (PPP) [Relative time] 1.04 {INR} Normal [facility] Comment on above: Performed By: #### P TT, PT #### [facility] [address] [place] [address] Dr. Dimple Parsons INR GUIDELINES SEE BELOW Normal [facility] Comment on above: Result Comment: VISHAL RED INR: 2.0 - 3.0 CONDITIONS NOT LISTED BELOW 2.5 - 3.5 FOR PROSTHETIC HEART VALVE REPLACEMENT 2.5 - 3.5 RECURRENT THROMBOSIS Performed By: #### P TT, PT #### [facility] [address] [place] [address] Dr. Dimple Parsons PT Coag (PPP) [Time] 11.2 s Normal 9.0-11.6 [facility] Comment on above: Performed By: #### P TT, PT #### [facility] [address] [place] [address] Dr. Dimple Parsons PTTon 01-13-2022 aPTT Coag (Bld) [Time] 35.1 s Normal 22.3-36.2 Th e [facility] Comment on above: Performed By: #### P TT, PT #### [facility] [address] [place] [address] Dr. Dimple Parsons TSHon 01-13-2022 TSH 1.528 uIU/mL Normal 0.358-3.74 0 [facility] Comment on above: Performed By: #### T SH #### [facility] [address] [place] [address] Dr. Dimple Parsons PAP ACOG PANEL 2: 30 to 65on 12-26-2021 . . Normal [facility] Comment on above: Result Comment: Perf ormed at: WB Performed By: #### C BC #### [facility] [address] [place] [address] Dr. Dimple Parsons Age Gdln ACOG Testing 30-65 Normal [facility] Comment on above: Performed By: #### C BC #### [facility] [address] [place] [address] Dr. Dimple Parsons DIAGNOSIS: Comment Normal [facility] Comment on above: Result Comment: NEGA TIVE FOR INTRAEPITHELIAL LESION OR MALIGNANCY. Performed at: WB Performed By: #### C BC #### [facility] [address] [place] [address] Dr. Dimple Parsons HPV Aptima Negative Normal Negative [facility] Comment on above: Result Comment: This nucleic acid amplification test detects fourteen high-risk HPV types (16,18,31,33,35,39,45,51,52,56,58,59,66,68) without differentiation. Performed at: =G Performed By: #### C BC #### [facility] [address] [place] [address] Dr. Dimple Parsons Methodology: Comment Normal [facility] Comment on above: Result Comment: This liquid based ThinPrep(R) pap test was screened with the use of an image guided system. Performed at: WB Performed By: #### C BC #### [facility] [address] [place] [address] Dr. Dimple Parsons Note: Comment Normal [facility] Comment on above: Result Comment: The [...] WB Performed By: #### C BC #### [facility] [address] [place] [address] Dr. Dimple Parsons Performed by: Comment Normal [facility] Comment on above: Result Comment: Susan Hercules [employer] Farmworker (ASCP) Performed at: WB Performed By: #### C BC #### [facility] [address] [place] [address] Dr. Dimple Parsons Specimen adequacy: Comment Normal [facility] Comment on above: Result Comment: Sati sfactory for evaluation. No endocervical component is identified. Performed at: WB Performed By: #### C BC #### [facility] [address] [place] [address] Dr. Dimple Parsons COVID Quick Testingon 2021 Result Negative [facility] Other Vital Signs Date Time Vital Sign Value Performing Clinician Facility 10-09-2024 13:09-0400 Body mass index (BMI) [Ratio] 30.92 kg/m2 [employer] Work Phone: [facility] 10-09-2024 13:09-0400 Body weight 97.75 kg [employer] Work Phone: [facility] 10-09-2024 13:09-0400 Diastolic blood pressure 82 mm[Hg] Brent Asuncion DO Work Phone: [facility] 10-09-2024 13:09-0400 Systolic blood pressure 122 mm[Hg] Brent Asuncion DO Work Phone: [facility] 09-05-2024 13:46-0400 Body height 175.26 cm Saniya Mays [employer]LE [employer] OPERATOR Work Phone: [facility] 09-05-2024 13:46-0400 Body mass index (BMI) [Ratio] 31.3 kg/m2 Saniya Mays [employer]BBLE MILL OPERATOR Work Phone: [facility] 09-05-2024 13:46-0400 Body temperature 98.8 [degF] Saniya Mays PEBBLE MILL OPERATOR Work Phone: [facility] 09-05-2024 13:46-0400 Body weight 96.16 kg Saniya Mays PEBBLE MILL OPERATOR Work Phone: [facility] 09-05-2024 13:46-0400 Diastolic blood pressure 80 mm[Hg] Saniya Mays PEBBLE MILL OPERATOR Work Phone: [facility] 09-05-2024 13:46-0400 Systolic blood pressure 124 mm[Hg] Saniya Mays PEBBLE MILL OPERATOR Work Phone: [facility] 08-14-2024 13:38-0400 Body mass index (BMI) [Ratio] 30.68 kg/m2 Yesica OSWALD Work Phone: [facility] 08-14-2024 13:38-0400 Body weight 96.98 kg Yesica OSWALD Work Phone: [facility] 08-14-2024 13:38-0400 Diastolic blood pressure 84 mm[Hg] Yesica OSWALD Work Phone: [facility] 08-14-2024 13:38-0400 Systolic blood pressure 122 mm[Hg] Yesica OSWALD Work Phone: [facility] 07-23-2024 09:36-0400 Body mass index (BMI) [Ratio] 30.71 kg/m2 Brent Asuncion DO Work Phone: [facility] 07-23-2024 09:36-0400 Body weight 97.07 kg Brent Asuncion DO Work Phone: [facility] 07-23-2024 09:36-0400 Diastolic blood pressure 72 mm[Hg] Brent Asuncion DO Work Phone: [facility] 07-23-2024 09:36-0400 Systolic blood pressure 122 mm[Hg] Brent Asuncion DO Work Phone: [facility] 07-10-2024 10:02-0400 Body mass index (BMI) [Ratio] 31.13 kg/m2 Brent Asuncion DO Work Phone: [facility] 07-10-2024 10:02-0400 Body weight 95.62 kg Brent Asuncion DO Work Phone: [facility] 07-10-2024 10:02-0400 Diastolic blood pressure 84 mm[Hg] Brent Asuncion DO Work Phone: [facility] 07-10-2024 10:02-0400 Systolic blood pressure 124 mm[Hg] Brent Asuncion DO Work Phone: [facility] 05-16-2024 10:18-0500 Body height 175.26 cm [facility] 05-16-2024 10:18-0500 Body mass index (BMI) [Ratio] 29.9 kg/m2 [facility] 05-16-2024 10:18-0500 Body temperature 97.2 [degF] [facility] 05-16-2024 10:18-0500 Body weight 92.07 kg [facility] 05-16-2024 10:18-0500 Diastolic blood pressure 82 mm[Hg] [facility] 05-16-2024 10:18-0500 Heart rate 106 /min [facility] 05-16-2024 10:18-0500 SaO2% (BldA) [Mass fraction] 98 % [facility] 05-16-2024 10:18-0500 Systolic blood pressure 122 mm[Hg] [facility] 03-15-2024 11:31-0500 Body height 175.26 cm [facility] 03-15-2024 11:31-0500 Body mass index (BMI) [Ratio] 31.3 kg/m2 [facility] 03-15-2024 11:31-0500 Body temperature 96.5 [degF] [facility] 03-15-2024 11:31-0500 Body weight 96.27 kg [facility] 03-15-2024 11:31-0500 Diastolic blood pressure 72 mm[Hg] [facility] 03-15-2024 11:31-0500 Heart rate 92 /min [facility] 03-15-2024 11:31-0500 SaO2% (BldA) [Mass fraction] 97 % [facility] 03-15-2024 11:31-0500 Systolic blood pressure 122 mm[Hg] [facility] 02-15-2024 13:04-0500 Body height 175.26 cm [facility] 02-15-2024 13:04-0500 Body mass index (BMI) [Ratio] 31.8 kg/m2 [facility] 02-15-2024 13:04-0500 Body temperature 97.3 [degF] [facility] 02-15-2024 13:04-0500 Body weight 97.63 kg [facility] 02-15-2024 13:04-0500 Diastolic blood pressure 80 mm[Hg] [facility] 02-15-2024 13:04-0500 Heart rate 114 /min [facility] 02-15-2024 13:04-0500 SaO2% (BldA) [Mass fraction] 98 % [facility] 02-15-2024 13:04-0500 Systolic blood pressure 122 mm[Hg] [facility] 12-02-2023 10:38-0400 Body height 175.26 cm [facility] 12-02-2023 10:38-0400 Body mass index (BMI) [Ratio] 31.3 kg/m2 [facility] 12-02-2023 10:38-0400 Body weight 96.16 kg [facility] 12-02-2023 10:38-0400 Diastolic blood pressure 90 mm[Hg] [facility] 12-02-2023 10:38-0400 Heart rate 81 /min [facility] 12-02-2023 10:38-0400 Systolic blood pressure 133 mm[Hg] [facility] 10-10-2023 11:23-0400 Body height 175.26 cm [facility] 10-10-2023 11:23-0400 Body mass index (BMI) [Ratio] 31.1 kg/m2 [facility] 10-10-2023 11:23-0400 Body weight 95.84 kg [facility] 10-10-2023 11:23-0400 Diastolic blood pressure 70 mm[Hg] [facility] 10-10-2023 11:23-0400 Heart rate 98 /min [facility] 10-10-2023 11:23-0400 SaO2% (BldA) [Mass fraction] 98 % [facility] 10-10-2023 11:23-0400 Systolic blood pressure 128 mm[Hg] [facility] 10-03-2023 14:50-0400 Body height 175.26 cm [facility] 10-03-2023 14:50-0400 Body mass index (BMI) [Ratio] 31.3 kg/m2 [facility] 10-03-2023 14:50-0400 Body weight 96.16 kg [facility] 10-03-2023 14:50-0400 Diastolic blood pressure 86 mm[Hg] [facility] 10-03-2023 14:50-0400 Heart rate 85 /min [facility] 10-03-2023 14:50-0400 Systolic blood pressure 125 mm[Hg] [facility] 09-07-2023 13:03-0400 Body height 175.26 cm [facility] 09-07-2023 13:03-0400 Body mass index (BMI) [Ratio] 31.1 kg/m2 [facility] 09-07-2023 13:03-0400 Body weight 95.7 kg [facility] 09-07-2023 13:03-0400 Diastolic blood pressure 62 mm[Hg] [facility] 09-07-2023 13:03-0400 Heart rate 61 /min [facility] 09-07-2023 13:03-0400 SaO2% (BldA) [Mass fraction] 97 % [facility] 09-07-2023 13:03-0400 Systolic blood pressure 102 mm[Hg] [facility] 06-17-2023 14:03-0400 Body height 175.26 cm [facility] 06-17-2023 14:03-0400 Body mass index (BMI) [Ratio] 31.6 kg/m2 [facility] 06-17-2023 14:03-0400 Body weight 97.12 kg [facility] 06-17-2023 14:03-0400 Diastolic blood pressure 92 mm[Hg] [facility] 06-17-2023 14:03-0400 Heart rate 109 /min [facility] 06-17-2023 14:03-0400 Systolic blood pressure 136 mm[Hg] [facility] 04-04-2023 14:15-0500 Body height 175.26 cm Surya Hodges Other [facility] 04-04-2023 14:15-0500 Body mass index (BMI) [Ratio] 30.42 kg/m2 Surya Hodges Other [facility] Other 04-04-2023 14:15-0500 Body weight 93.44 kg Surya Hodges Other [facility] 04-04-2023 14:15-0500 Diastolic blood pressure 85 mm[Hg] Surya Hodges Other [facility] 04-04-2023 14:15-0500 Systolic blood pressure 120 mm[Hg] Surya Hodges Other [facility] 12-17-2022 08:30-0400 Body height 175.26 cm Surya Hodges Other [facility] Other 12-17-2022 08:30-0400 Body mass index (BMI) [Ratio] 29.5 kg/m2 Surya Hodges Other [facility] Other 12-17-2022 08:30-0400 Body weight 90.63 kg Surya Hodges Other [facility] Other 12-17-2022 08:30-0400 Diastolic blood pressure 85 mm[Hg] Surya Hodges Other [facility] Other 12-17-2022 08:30-0400 Systolic blood pressure 120 mm[Hg] Surya Hodges Other [facility] Other 12-01-2022 12:00-0400 Body temperature 97.6 [degF] MD Surya Hodges Work Phone: [facility] 12-01-2022 12:00-0400 Diastolic blood pressure 77 mm[Hg] MD Surya Hodges Work Phone: [facility] 12-01-2022 12:00-0400 Heart rate 89 /min MD Surya Hodges Work Phone: [facility] 12-01-2022 12:00-0400 Respiratory rate 20 /min MD Surya Hodges Work Phone: [facility] 12-01-2022 12:00-0400 SaO2% (BldA) [Mass fraction] 99 % MD Surya Hodges Work Phone: [facility] 12-01-2022 12:00-0400 Systolic blood pressure 116 mm[Hg] MD Surya Hodges Work Phone: [facility] 12-01-2022 05:51-0400 Body weight 89.4 kg MD Surya Hodges Work Phone: [facility] 11-30-2022 16:30-0400 Body height 175.26 cm MD Surya Hodges Work Phone: [facility] 11-29-2022 11:15-0400 Body height 175.26 cm Surya Hodges Other [facility] Other 11-29-2022 11:15-0400 Body mass index (BMI) [Ratio] 28.79 kg/m2 Surya Hodges Other [facility] Other 11-29-2022 11:15-0400 Body temperature 97.1 [degF] Surya Hodges Other [facility] Other 11-29-2022 11:15-0400 Body weight 88.45 kg Surya Hodges Other [facility] Other 11-29-2022 11:15-0400 Diastolic blood pressure 88 mm[Hg] Surya Hodges Other [facility] Other 11-29-2022 11:15-0400 SaO2% (BldA) [Mass fraction] 98 % Surya Hodges Other [facility] Other 11-29-2022 11:15-0400 Systolic blood pressure 124 mm[Hg] Surya Hodges Other [facility] Other 11-18-2022 08:30-0400 Body height 175.26 cm Surya Hodges Other [facility] Other 11-18-2022 08:30-0400 Body mass index (BMI) [Ratio] 28.59 kg/m2 Surya Hodges Other [facility] Other 11-18-2022 08:30-0400 Body weight 87.82 kg Surya Hodges Other [facility] Other 11-18-2022 08:30-0400 Diastolic blood pressure 89 mm[Hg] Surya Hodges Other [facility] Other 11-18-2022 08:30-0400 Systolic blood pressure 131 mm[Hg] Surya Hodges Other [facility] Other 11-05-2022 10:00-0400 Body height 175.26 cm Surya Hodges Other [facility] Other 11-05-2022 10:00-0400 Body mass index (BMI) [Ratio] 29.68 kg/m2 Surya Hodges Other [facility] Other 11-05-2022 10:00-0400 Body weight 91.17 kg Surya Hodges Other [facility] Other 11-05-2022 10:00-0400 Diastolic blood pressure 85 mm[Hg] Surya Hodges Other [facility] Other 11-05-2022 10:00-0400 Systolic blood pressure 134 mm[Hg] Surya Hodges Other [facility] Other 10-18-2022 08:30-0400 Body height 175.26 cm Surya Hodges Other [facility] Other 10-18-2022 08:30-0400 Body mass index (BMI) [Ratio] 28.94 kg/m2 Surya Hodges Other [facility] Other 10-18-2022 08:30-0400 Body weight 88.91 kg Surya Hodges Other [facility] Other 10-18-2022 08:30-0400 Diastolic blood pressure 89 mm[Hg] Surya Hodges Other [facility] Other 10-18-2022 08:30-0400 Systolic blood pressure 137 mm[Hg] Surya Hodges Other [facility] Other 09-09-2022 10:15-0400 Body height 175.26 cm Surya Hodges Other [facility] Other 09-09-2022 10:15-0400 Body mass index (BMI) [Ratio] 29.12 kg/m2 Surya Hodges Other [facility] Other 09-09-2022 10:15-0400 Body weight 89.45 kg Surya Hodges Other [facility] Other 09-09-2022 10:15-0400 Diastolic blood pressure 89 mm[Hg] Surya Hodges Other [facility] Other 09-09-2022 10:15-0400 Respiratory rate 12 /min Surya Hodges Other [facility] Other 09-09-2022 10:15-0400 Systolic blood pressure 132 mm[Hg] Surya Hodges Other [facility] Other 05-21-2022 10:01-0500 Blood Pressure Location Kamaljit ROMERO [facility] 05-21-2022 10:01-0500 Diastolic blood pressure 80 mm[Hg] Kamaljit ROMERO [facility] 05-21-2022 10:01-0500 Heart rate 85 /min Kamaljit ROMERO [facility] 05-21-2022 10:01-0500 Systolic blood pressure 119 mm[Hg] Kamaljit ROMERO [facility] 01-13-2022 08:36-0400 Blood Pressure Location SANIYA KAUFMAN [facility] 01-13-2022 08:36-0400 Diastolic blood pressure 90 mm[Hg] SANIYA MANDEEP [facility] 01-13-2022 08:36-0400 Heart rate 91 /min SANIYA MANDEEP [facility] 01-13-2022 08:36-0400 Respiratory rate 16 /min SANIYA KAUFMAN [facility] 01-13-2022 08:36-0400 Systolic blood pressure 134 mm[Hg] SANIYA MANDEEP [facility] 04-08-2021 15:30-0500 Body height 175.26 cm Treasure Quezada Other [facility] Other 04-08-2021 15:30-0500 Body mass index (BMI) [Ratio] 29.97 kg/m2 Treasure Quezada Other [facility] Other 04-08-2021 15:30-0500 Body temperature 96.6 [degF] Treasure Quezada Other [facility] Other 04-08-2021 15:30-0500 Body weight 92.08 kg Treasure Quezada Other [facility] Other 04-08-2021 15:30-0500 Respiratory rate 18 /min Treasure Pilar Other [facility] Other 04-08-2021 15:30-0500 SaO2% (BldA) [Mass fraction] 98 % Treasure Quezada Other [facility] Other Encounters Encounter Date Encounter Type Care Provider Facility Start: 12-28-2024 ambulatory Kamaljit ROMERO Facili ty:[facility] Start: 10-29-2024 End: 10-29-2024 Patient encounter procedure Kamaljit Romero MD -[facility] Work Phone: Start: 10-29-2024 End: 10-29-2024 ambulatory Saniya Mays APRN Work Phone: [facility] Work Phone: Start: 10-09-2024 End: 10-09-2024 Bamboo flowsheet Brent Asuncion DO Work Phone: [facility] Start: 10-09-2024 End: 10-12-2024 Bamboo flowsheet Brent Asuncion DO Work Phone: [facility] Start: 10-09-2024 End: 10-12-2024 Clinisync Result Encounter Brent Asuncion DO Work Phone: [facility] Unsolicited Start: 10-09-2024 End: 10-09-2024 Patient encounter procedure Brent Asuncion DO Work Phone: [facility] Start: 10-09-2024 End: 10-09-2024 Periodic preventive med est patient 18-39 yrs Brent Asuncion DO Work Phone: [facility] Comment on above: Well woman exam with routine gynecological exam; Insulin resistance; Encounter for weight loss counseling Start: 10-09-2024 Non-patient / Non-visit Brent Asuncion -[place] Work Phone: Start: 10-09-2024 End: 10-09-2024 ambulatory BRENT ASUNCION Not Available Start: 10-02-2024 End: 10-02-2024 ambulatory Kamaljit ROMERO Facility:[facility] Start: 10-02-2024 End: 10-02-2024 Patient encounter procedure Kamaljit ROMERO [facility] Start: 09-05-2024 End: 09-06-2024 ambulatory Saniya Mays APRN Work Phone: [facility] Work Phone: Start: 09-05-2024 End: 09-05-2024 Patient encounter procedure Saniya Mays APRN [facility] Work Phone: Start: 08-23-2024 Non-patient / Non-visit Kamaljit romero MD -[facility] Work Phone: Start: 08-14-2024 End: 08-14-2024 Bamboo flowsheet Yesica OSWALD Work Phone: [facility] Start: 08-14-2024 End: 08-14-2024 Bamboo flowsheet Yesica OSWALD Work Phone: [facility] Start: 08-14-2024 End: 08-14-2024 Postop follow up visit related to original px Yesica OSWALD Work Phone: [facility] Comment on above: Acute postoperative pain; Postoperative follow-up; Other insomnia Start: 08-14-2024 End: 08-14-2024 ambulatory YESICA BECKER Not Available Start: 08-02-2024 Non-patient / Non-visit Brent Roland -[facility] Work Phone: Start: 08-02-2024 End: 08-02-2024 ambulatory Kamaljit ROMERO Facility:[id number] Start: 07-23-2024 End: 07-23-2024 Bamboo flowsheet Brent Asuncion DO Work Phone: [facility] Start: 07-23-2024 End: 07-23-2024 Bamboo flowsheet Brent Asuncion DO Work Phone: [facility] Start: 07-23-2024 End: 07-23-2024 Clinisync Result Encounter Brent Asuncion DO Work Phone: [facility] Unsolicited Start: 07-23-2024 Non-patient / Non-visit Brent Asuncion -[facility] Work Phone: Start: 07-23-2024 End: 07-23-2024 ambulatory BRENT ASUNCION Not Available Start: 07-23-2024 End: 07-23-2024 Office outpatient visit 15 minutes Brent Asuncion DO Work Phone: [facility] Comment on above: Pre-op evaluation; Pelvic pain in female; Pain of ovary; H/O: hysterectomy Start: 07-23-2024 End: 07-23-2024 Preprocedural examination done Brent Asuncion DO Work Phone: [facility] Start: 07-10-2024 End: 07-10-2024 Bamboo [...] Work Phone: [facility] Unsolicited Start: 07-03-2024 End: 07-03-2024 Clinisync Result Encounter Brent Roland DO Work Phone: [facility] Unsolicited Start: 05-16-2024 End: 05-16-2024 ambulatory [facility] Work Phone: Start: 05-16-2024 End: 05-16-2024 Patient encounter procedure [facility] Work Phone: Start: 03-15-2024 End: 03-15-2024 ambulatory [facility] Work Phone: Start: 03-15-2024 End: 03-15-2024 Patient encounter procedure [facility] Phys[facility] Work Phone: Start: 02-15-2024 End: 02-15-2024 Patient encounter procedure [facility] Work Phone: Start: 12-02-2023 End: 12-02-2023 ambulatory [facility] Work Phone: Start: 12-02-2023 End: 12-02-2023 Patient encounter procedure [facility] Work Phone: Start: 10-10-2023 End: 10-10-2023 Patient encounter procedure [facility] Work Phone: Start: 10-05-2023 Patient encounter status [facility] Start: 10-03-2023 End: 10-03-2023 ambulatory [facility] Work Phone: Start: 10-03-2023 End: 10-03-2023 Encounter for general adult medical examination without abnormal findings [facility] Start: 10-03-2023 End: 10-03-2023 Patient encounter procedure [facility] Work Phone: Start: 09-07-2023 End: 09-07-2023 ambulatory [facility] Work Phone: Start: 09-07-2023 End: 09-07-2023 Patient encounter procedure [facility] Work Phone: Start: 07-12-2023 Non-patient / Non-visit [facility] Work Phone: Start: 06-17-2023 End: 06-17-2023 ambulatory [facility] Work Phone: Start: 06-17-2023 End: 06-17-2023 Patient encounter procedure [facility] Work Phone: Start: 05-04-2023 End: 05-04-2023 ambulatory [facility] Work Phone: Start: 05-04-2023 End: 05-04-2023 Patient encounter procedure [facility] Work Phone: Start: 05-02-2023 Non-patient / Non-visit [facility] Work Phone: Start: 04-21-2023 End: 04-21-2023 Online digital e/m svc est pt <7 d 11-20 minutes Yesica OSWALD Work Phone: [facility] Comment on above: Insulin resistance; Metabolic syndrome; Hormone imbalance Start: 04-04-2023 End: 04-04-2023 ambulatory Surya Hodges Other [facility] Other Start: 04-04-2023 Office outpatient vi sit 15 minutes Surya [facility] Start: 04-04-2023 End: 04-04-2023 Patient encounter procedure [facility]ly [facility]- Start: 03-11-2023 End: 03-11-2023 ambulatory Surya Hodges Other [facility] Other Start: 03-11-2023 Telephone encounter Surya [facility] Start: 03-11-2023 Patient encounter procedure [facility]- Start: 01-12-2023 End: 01-12-2023 ambulatory Surya Hodges Other [facility] Other Start: 01-12-2023 Telephone encounter Surya Hod[facility] Start: 12-17-2022 End: 12-17-2022 ambulatory Surya Hodges Other [facility] Other Start: 12-17-2022 Office outpatient vi sit 15 minutes Surya Hodges [facility] Start: 11-30-2022 End: 12-01-2022 Evaluation and management of inpatient MD Surya Hodges Work Phone: [facility] Work Phone: Start: 11-30-2022 End: 12-01-2022 observation encounter MD Surya Hodges Work Phone: [facility] Work Phone: Start: 11-30-2022 End: 11-30-2022 ambulatory Surya Hodges Other [facility] Other Start: 11-30-2022 Telephone encounter Surya Hodges [facility] Start: 11-29-2022 End: 11-29-2022 ambulatory Surya Hodges Other [facility] Other Start: 11-29-2022 Office outpatient vi sit 15 minutes Surya Hodges [facility] Start: 11-29-2022 Telephone encounter Surya Tracie [facility] Start: 11-18-2022 End: 11-18-2022 ambulatory Surya Hodges Other [facility] Other Start: 11-18-2022 Office outpatient vi sit 10 minutes Surya Hodges [facility] Start: 11-05-2022 End: 11-05-2022 ambulatory Surya Hodges Other [facility] Other Start: 11-05-2022 Office outpatient vi sit 10 minutes Surya Hodges [facility] Start: 11-04-2022 End: 11-04-2022 ambulatory Surya Tracie Other [facility] Other Start: 11-04-2022 Telephone encounter Surya Tracie [facility] Start: 10-18-2022 End: 10-18-2022 ambulatory Surya Tracie Other [facility] Other Start: 10-18-2022 Office outpatient vi sit 10 minutes Surya [facility] Start: 09-17-2022 End: 09-17-2022 ambulatory Surya Tracie Other [facility] Other Start: 09-17-2022 Telephone encounter Surya Tracie [facility] Start: 09-09-2022 End: 09-09-2022 ambulatory Surya Hodges Other [facility] Other Start: 09-09-2022 Office outpatient vi sit 15 minutes Surya Hodges [facility] Start: 06-18-2022 Encounter for other preprocedural examination DR BRENT ROLAND . [facility] Start: 06-16-2022 End: 06-16-[address] BRENT [...] encounter procedure Kamaljit ROMERO [facility] Start: 05-20-2022 End: 05-21-[address] SURYA HODGES Facility:[facility] Start: 05-08-2022 End: 05-08-[address] SURYA HODGES Facility:[facility] Start: 03-23-2022 End: 04-16-2022 ambulatory BRINA SHEIKH Facility:[facility] Start: 03-16-2022 End: 03-16-2022 ambulatory Surya Hodges Other [facility] Other Start: 03-16-2022 Office outpatient vi sit 15 minutes Surya Hodges [facility] Start: 02-25-2022 Gynecological examination normal Surya Hodges Other [facility] Other Start: 02-25-[address] SURYA HODGES Facil ity:[facility]1 Start: 02-21-2022 End: 02-21-2022 ambulatory MD Surya Hodges Work Phone: [facility] Work Phone: Start: 02-21-2022 End: 02-21-2022 Patient encounter procedure MD Surya Hodges Work Phone: [facility] Start: 01-13-2022 End: 01-14-[address] BRENT ROLAND . Facility:[facility] Start: 01-13-2022 End: 01-13-2022 Patient encounter procedure SANIYA KAUFMAN [facility] Start: 12-21-2021 End: 12-21-[address] BRENT ROLAND . Facility:[facility] Start: 04-08-2021 (URG) Urgent Care Visit Treasure pimentel [facility] Start: 04-08-2021 End: 04-08-2021 ambulatory Treasure Quezada Other [facility] Other Start: 05-16-2020 Pre-procedure evalua tion check Surya Hodges Other [place] Other Procedures Date Procedure Procedure Detail Performing Clinician Start: 10-29-2024 Intravenous pyelogram Anne leslee Aguilaraminta VAZQUEZ Work Phone: Start: 10-09-2024 IGP,APTIMA HPV,AGE GDLN Brent Asuncion DO Work Phone: Start: 10-02-2024 Cystoscopic removal of ureteric stent Kamaljit ROMERO Start: 07-23-2024 ALL CBC WITH AUTO DIFF Brent Asuncion DO Work Phone: Start: 07-23-2024 ECG 12-LEAD Brent Fazi o DO Work Phone: Start: 07-10-2024 RECURRENT VAGINITIS (HTRX) Brent Asuncion DO Work Phone: Start: 07-10-2024 Urnls dip stick/tabl et rgnt non-auto w/o micrscp Brent Asuncion DO Work Phone: Start: 07-03-2024 US PELVIS W/ TRANSVAGINAL Brent Asuncion DO Work Phone: Start: 12-28-2022 Microscopic observat ion [Identifier] in Cervix by Cyto stain Brent Asuncion DO Work Phone: Start: 12-28-2022 Cytp cerv/vag auto t hin layer prep mnl screen Brent Asuncion DO Work Phone: Start: 11-30-2022 Ultrasonography of liver MD Surya Hodges Work Phone: Start: 11-30-2022 Respiratory Panel (PCR) MD Surya Hodges Work Phone: Start: 11-30-2022 Plain chest X-ray MD Kike Hodges Work Phone: Start: 02-21-2022 X-ray of left ankle MD Surya Hodges Work Phone: Start: 01-19-2022 Injection of urethra Margret ROMERO Appendectomy SANIYA KAUFMAN Cholecystectomy SANIYA PATRICIA Depression screening Surya Hodges Other H/O: hysterectomy H/O: hysterectomy Brent Roland DO Work Phone: Hysterectomy SANIYA KAUFMAN Hysterectomy Surya Hodges Other Insertion of intraut erine contraceptive device Surya Hodges Other MRI guided ablation of uterine fibroid SANIYA KAUFMAN End: 06-01-2018 Removal of intrauterine device Surya Hodges Other Plan of Treatment Date Care Activity Detail Author Start: 12-28-2025 Screening for malign ant neoplasm of cervix [facility] Start: 11-12-2024 Influenza vaccination [facility] Start: 11-06-2024 End: 11-06-2024 Patient encounter procedure 11/06/2024 2:40 PM EDT Office Visit [facility] [address] [place] [id number] Brent Roland, DO [address] [place] [address] [facility] Start: 10-09-2024 End: 10-09-2024 Patient encounter procedure [facility] Comment on above: Arrived Start: 08-14-2024 End: 08-14-2024 Patient encounter procedure 08/14/2024 1:20 PM EDT Office Visit [facility] [address] [place] [address] Yesica Becker PA [address] [place] [address] Arrived [facility] Comment on above: Arrived Start: 07-10-2024 End: 07-10-2024 Patient encounter procedure 07/10/2024 10:00 AM EDT Office Visit [facility] [address] [place] [address] Brent Roland, DO [address] [place] [address] Arrived [facility] Comment on above: Arrived Start: 12-01-2022 [facility] Start: 11-30-2022 Hospital admission [facility] Start: 11-12-2022 Influenza vaccination Influenza Vacc ine (#1) [facility] Start: 06-10-2019 Screening for malign ant neoplasm of cervix [facility] Start: 2010 Screening for malign ant neoplasm of cervix Pap Smear [facility] CBC W Auto Different ial panel - Blood CBC and differential Lab Routine Metabolic syndrome Hormone imbalance Ordered: 04/21/2023 [facility] Work Phone: Comment on above: Ordered: 04/21/2023 CHLAMYDIA TRACHOMATI S (GENITO/STI) CHLAMYDIA TRACHOMATIS (GENITO/STI) Lab Routine Pelvic pain Ordered: 07/10/2024 [facility] Comment on above: Ordered: 07/10/2024 Comprehensive metabo lic 2000 panel - Serum or Plasma [facility] Comprehensive metabo lic 2000 panel - Serum or Plasma [facility] Comprehensive metabo lic 2000 panel - Serum or Plasma Comprehensive metabolic panel Lab Routine Pre-op evaluation Pelvic pain in female H/O: hysterectomy Ordered: 07/23/2024 [facility] Work Phone: Comment on above: Ordered: 07/23/2024 Cytology Cervical or vaginal smear or scraping study Pap Smear Pathology and Cytology Routine Well woman exam with routine gynecological exam Ordered: 10/09/2024 [facility] Work Phone: Comment on above: Ordered: 10/09/2024 Human papilloma viru s DNA [Presence] in Unspecified specimen by Probe with amplification HPV DNA probe, amplified Microbiology Routine Well woman exam with routine gynecological exam Ordered: 10/09/2024 [facility] Comment on above: Ordered: 10/09/2024 Neisseria gonorrhoea e DNA [Presence] in Unspecified specimen by LEO with probe detection Neisseria gonorrhea DNA probe, direct Lab Routine Pelvic pain Ordered: 07/10/2024 [facility] Comment on above: Ordered: 07/10/2024 Patient Education Mediterranean Diet Hyperthyroidism (Overactive Thyroid) (DC) Propranolol Prediabetes (DC) [facility] Work Phone: Patient referral [facility] Work Phone: SURESWAB(R) ADVANCED VAGINITIS PLUS, TMA SURESWAB(R) ADVANCED VAGINITIS PLUS, TMA Pathology and Cytology Routine Pelvic pain Ordered: 07/10/2024 [facility] Work Phone: Comment on above: Ordered: 07/10/2024 XR Knee - left 4 Views [facility] Immunizations Immunization Date Immunization Notes Care Provider Kathy holliday 04-20-2021 SARS-CoV-2 (COVID-19 ) mRNA BNT-162b2 vax SANIYA KAUFMAN [facility] Comment on above: Result Comment: 2021: TPVALL 08-14-2020 SARS-CoV-2 (COVID-19 ) Ad26 vaccine, recombinant SANIYA MANDEEP [facility] Comment on above: Result Comment: 2021: TPVALL Payers Date Payer Category Payer Private Health Insurance [id number] 2021 [facility] [id number] 5 2021 Unknown BCBS BCBS [id number] 2021-Present [phone] [address] [place] [address] [id number] 1989 Unknown [id number] 2.16.840.1.002763.3.579 .2.593 1989 Unknown [id number] 2.16.840.1.757378.3.579 .2.593 1989 Unknown [id number] 2.16.840.1.992199.3.579 .2.593 1989 Unknown [id number] 2.16.840.1.411518.3.579 .2.593 1989 Unknown [id number] 2.16.840.1.786609.3.579 .2.593 1989 Unknown [id number] 2.16.840.1.832725.3.579 .2.593 1989 Unknown [id number] 2.16.840.1.327177.3.579 .2.593 1989 Unknown [id number] 2.16.840.1.657506.3.579 .2.593 1989 Unknown [id number] 2.16.840.1.669184.3.579 .2.593 1989 Unknown [id number] 2.16.840.1.300380.3.579 .2.593 1989 Unknown [id number] 2.16.840.1.565669.3.579 .2.593 1989 Unknown [id number] 2.16.840.1.400237.3.579 .2.593 1989 Unknown [id number] 2.16.840.1.390480.3.579 .2.727 1989 Unknown [id number] 2.16.840.1.994988.3.579 .2.727 1989 Unknown [id number] 2.16.840.1.089186.3.579 .2.727 1989 Unknown [id number] 2.16.840.1.916231.3.579 .2.727 1989 Unknown [id number] 2.16.840.1.756769.3.579 .2.1259 1989 Unknown [id number] 2.16.840.1.210622.3.579 .2.9 1989 Unknown [id number] 2.16.840.1.629039.3.579 .2.9 1989 Unknown [id number] 2.16.840.1.271296.3.5[address] .2.[address] [facility] [id number] Self-pay Self Pay [id number] Unknown Harpal BC/BS [id number] Social History Date Type Detail Facility Unknown if ever smoked [facility] Start: 02-09-2023 End: 07-10-2024 Sex Assigned At [facility] Start: 01-13-2022 End: 09-07-2023 Tobacco smoking status Never smoked tobacco (finding) [facility] Tobacco smoking status Never [facility] Start: 1990 Sex Assigned At Female [facility] Start: 02-09-2023 End: 10-09-2024 Alcohol intake Ex-drinker (finding) [facility] Start: 02-09-2023 End: 07-10-2024 History of Social function [facility] Start: 09-24-2022 Alcohol Comment occasional: drinks wine & beer [facility] Start: 09-27-2022 Gender identity Identifies as female gender (finding) [facility] Start: 03-18-2010 End: 03-15-2024 Sex Female (finding) [facility] Sexual Orientation [facility] Goals Date Patient Goal Desired Activity /State Functional Status Date Assessment Result Facility 12-01-2022 Functional status Patient at Baseline [facility] Work Phone: 05-21-2022 Functional Status N/A [facility] 01-13-2022 Functional Status N/A [facility] Mental Status Date Assessment Result Facility 12-01-2022 Cognitive function Cognitive Sta tus Patient at Baseline [facility] Work Phone: Clinical Notes 04-08-2021 to 10-09-2024 Leatha Blair LPN - 10/09/2024 1:00 PM EDT Note Date & Type Note Facility 10-09-2024 History of Presen t illness Narrative adip Reason for Appointment: Patient ID: Tootie Vazquez is a 34 y.o. female who presents for Well Women Visit Patient presents today for Annual Exam. MEDICATIONS Current Outpatient Medications Medication Instructions fluconazole (Diflucan) 150 MG tablet TAKE 1 TABLET BY MOUTH FOR ONE SINGLE DOSE ibuprofen 800 mg, Oral, Every 8 hours PRN levothyroxine (SYNTHROID, LEVOXYL) 137 mcg, Daily before breakfast liothyronine (CYTOMEL) 5 mcg, Oral, Daily metFORMIN XR (GLUCOPHAGE-XR) 500 mg, Oral, Daily with evening meal, Do not crush, chew, or split. methenamine hippurate (HIPREX) 1 g, 2 times daily mirabegron ER (MYRBETRIQ) 50 mg, Nightly tamsulosin (FLOMAX) 0.4 mg, Daily ALLERGIES Allergies Allergen Reactions Vpaudcs-Wobmfl-Ealim Pertussis Swelling Tetanus-Diphtheria Toxoids Td Other Azithromycin Rash Clindamycin Rash PROBLEMS Active Ambulatory Problems Diagnosis Date Noted Acute postoperative pain 08/14/2024 Postoperative follow-up 08/14/2024 Resolved Ambulatory Problems Diagnosis Date Noted No Resolved Ambulatory Problems Past Medical History: Diagnosis Date Allergic contact dermatitis due to plant Anxiety Essential hypertension Fatigue Hypothyroidism Low iron Mood changes Non-smoker Obesity with body mass index of 30.0-39.9 HISTORY PAST MEDICAL HISTORY SOCIAL HISTORY Past Medical History: Diagnosis Date Allergic contact dermatitis due to plant Anxiety Essential hypertension Fatigue Hypothyroidism Low iron Mood changes Non-smoker Obesity with [...] nursing note reviewed. Exam conducted with a test tech present. Vitals: Estimated body mass index is 30.92 kg/m as calculated from the following: Height as of 06/21/23: 5' 10 . Weight as of this encounter: 215 lb 8 oz. BP: 122/82 No LMP recorded. Patient has had a hysterectomy. ASSESSMENT & PLAN ICD-10-CM 1. Well woman exam with routine gynecological exam Z01.419 Pap Smear HPV DNA probe, amplified Orders Placed This Encounter Procedures HPV DNA probe, amplified Annual Wellness Exam (Post Hysterectomy): Patient presents today for routine annual exam. Patient states she has complaints of increased facial hair, water retention, mood swings, desires weight loss, pt is borderline diabetic without metformin. Pt felt the best she has ever felt on mounjaro. Pt given adipex and to increase metformin to 1000mg Patients vitals were reviewed and within normal limits. Growth and development is noted to be appropriate for age. Menstrual history is noted to be obsolete due to patients history of hysterectomy. No mental health concerns was expressed. Pap Smear: Speculum was inserted into the vagina and pap was obtained without difficulty. HPV testing was performed per guidelines. Patient was advised that pap results could take anywhere from 7 to 10 days to receive and our office will reach out to the patient with those once we have them. Patient can also view results via [facility]. I reinforced importance of condom use for STI prevention. Patient declined cultures to be performed with today's visit. Breast Exam: Upon examination, clinical breast exam was noted to be normal. Patient was counseled on breast self-awareness, including the importance of knowing what is normal for her own breasts and promptly reporting any changes such as new lumps, skin dimpling, nipple discharge, or pain. Screening mammogram recommended annually beginning at age 40 or earlier if risk factors are present. Discussed signs and symptoms of breast cancer and when to seek medical attention. Answered all patient questions. Follow Up: Patient is to return to our office in one year for annual exam unless needed otherwise. Documented by Leatha Blair LPN on behalf of: Brent Roland DO documented in this encounter [facility] 10-02-2024 Hospital Discharg e instructions Patient Education 10/02/2024 15:41:56 Dietary Guidelines to Help Prevent Kidney Stones Dietary Guidelines to Help Prevent Kidney Stones Kidney stones are deposits of minerals and salts that form inside your kidneys. Your risk of developing kidney stones may be greater depending on your diet, your lifestyle, the medicines you take, and whether you have certain medical conditions. Most people can lower their risks of developing kidney stones by following these dietary guidelines. Your dietitian may give you more specific instructions depending on your overall health and the type of kidney stones you tend to develop. What are tips for following this plan? Reading food labels Choose foods with no salt added or low-salt labels. Limit your salt (sodium) intake to less than 1,500 mg a day. Choose foods with calcium for each meal and snack. Try to eat about 300 mg of calcium at each meal. Foods that contain 200 500 mg of calcium a serving include: ?8 oz (237 mL) of milk, bsbhhtz-yalncbanahxo-zywmn milk, and calcium-fortifiedfruit juice. Calcium-fortified means that calcium has been added to these drinks. ?8 oz (237 mL) of kefir, yogurt, and soy yogurt. ?4 oz (114 g) of tofu. ?1 oz (28 g) of cheese. ?1 cup (150 g) of dried figs. ?1 cup (91 g) of cooked broccoli. ?One 3 oz (85 g) can of sardines or mackerel. Most people need 1,000 1,500 mg of calcium a day. Talk to your dietitian about how much calcium is recommended for you. Shopping Buy plenty of fresh fruits and vegetables. Most people do not need to avoid fruits and vegetables, even if these foods contain nutrients that may contribute to kidney stones. When shopping for convenience foods, choose: ?Whole pieces of fruit. ?Pre-made salads with dressing on the side. ?Low-fat fruit and yogurt smoothies. Avoid buying frozen meals or prepared deli foods. These can be high in sodium. Look for foods with live cultures, such as yogurt and kefir. Choose high-fiber grains, such as whole-wheat breads, oat bran, and wheat cereals. Cooking Do not add salt to food when cooking. Place a salt shaker on the table and allow each person to add their own salt to taste. Use vegetable protein, such as beans, textured vegetable protein (TVP), or tofu, instead of meat in pasta, casseroles, and soups. Meal planning Eat less salt, if told by your dietitian. To do this: ?Avoid eating processed or pre-made food. ?Avoid eating fast food. Eat less animal protein, including cheese, meat, poultry, or fish, if told by your dietitian. To do this: ?Limit the number of times you have meat, poultry, fish, or cheese each week. Eat a diet free of meat at least 2 days a week. ?Eat only one serving each day of meat, poultry, fish, or seafood. ?When you prepare animal proteins, cut pieces into small portion sizes. For most meat and fish, one serving is about the size of the palm of your hand. Eat at least five servings of fresh fruits and vegetables each day. To do this: ?Keep fruits and vegetables on hand for snacks. ?Eat one piece of fruit or a handful of berries with breakfast. ?Have a salad and fruit at lunch. ?Have two kinds of vegetables at dinner. You may be told to limit foods that are high in a substance called oxalate. These include: ?Spinach (cooked), rhubarb, beets, sweet potatoes, and [place] chard. ?Peanuts. ?Potato chips, nepalese fries, and baked potatoes with skin on. ?Nuts and nut products. ?Chocolate. If you regularly take a diuretic medicine, make sure to eat at least 1 or 2 servings of fruits or vegetables that are high in potassium each day. These include: ?Avocado. ?Banana. ?Casey, prune, carrot, or tomato juice. ?Baked potato. ?Cabbage. ?Beans and split peas. Lifestyle Drink enough fluid to keep your urine pale yellow. This is the most important thing you can do. Spread your fluid intake throughout the day. If you drink alcohol: ?Limit how much you have to: ?0 1 drink a day for women who are not . ?0 2 drinks a day for men. ?Know how much alcohol is in your drink. In the [place] one drink equals one 12 oz bottle of beer (355 mL), one 5 oz glass of wine (148 mL), or one 1 oz glass of hard liquor (44 mL). Lose weight if told by your health care provider. Work with your dietitian to find an eating plan and weight loss strategies that work best for you. General information Talk to your health care provider and dietitian about taking daily supplements. Depending on your health and the cause of your kidney stones, you may be told: ?Do not take high-dose supplements of vitamin C (1,000 mg a day or more). ?To take a calcium supplement. ?To take a daily probiotic supplement. ?To take other supplements such as magnesium, fish oil, or vitamin B6. Take ttsx-mww-hrwzbaw and prescription medicines only as told by your health care provider. These include supplements. What foods should I limit? Limit your intake of the following foods, or eat them as told by your dietitian. Vegetables Spinach. Rhubarb. Beets. Canned vegetables. Pickles. Olives. Baked potatoes with skin. Grains Wheat bran. Baked goods. Salted crackers. Cereals high in sugar. Meats and other proteins Nuts. Nut butters. Large portions of meat, poultry, or fish. Salted, precooked, or cured meats, such as sausages, meat loaves, and hot dogs. Dairy Cheeses. Beverages Regular soft drinks. Regular vegetable juice. Seasonings and condiments Seasoning blends with salt. Salad dressings. Soy sauce. Ketchup. Barbecue sauce. Other foods Canned soups. Canned pasta sauce. Casseroles. Pizza. Lasagna. Frozen meals. Potato chips. Divehi fries. The items listed above may not be a complete list of foods and beverages you should limit. Contact a dietitian for more information. What foods should I avoid? Talk to your dietitian about specific foods you should avoid based on the type of kidney stones you have and your overall health. Fruits Grapefruit. The item listed above may not be a complete list of foods and beverages you should avoid. Contact a dietitian for more information. Summary Kidney stones are deposits of minerals and salts that form inside your kidneys. You can lower your risk of kidney stones by making changes to your diet. The most important thing you can do is drink enough fluid. Drink enough fluid to keep your urine pale yellow. Talk to your dietitian about how much calcium you should have each day, and eat less salt and animal protein as told by your dietitian. This information is not intended to replace advice given to you by your health care provider. Make sure you discuss any questions you have with your health care provider. Document Revised: 06/10/2022 Document Reviewed: 06/10/2022 [employer] Patient Education 2023 [employer]. Follow Up Care 09/11/2024 09:57:49 With:LUCY STILES, Kamaljit Rivas, URL Address: [facility] [address] , [place] [address]- When: Unknown [facility] 10-02-2024 Note Patient Education Nephrology Dietary Guidelines to Help Prevent Kidney Stones Kidney stones are deposits of minerals and salts that form inside your kidneys. Your risk of developing kidney stones may be greater depending on your diet, your lifestyle, the medicines you take, and whether you have certain medical conditions. Most people can lower their risks of developing kidney stones by following these dietary guidelines. Your dietitian may give you more specific instructions depending on your overall health and the type of kidney stones you tend to develop. What are tips for following this plan? Reading food labels ??? Choose foods with no salt added or low-salt labels. Limit your salt (sodium) intake to less than 1,500 mg a day. ??? Choose foods with calcium for each meal and snack. Try to eat about 300 mg of calcium at each meal. Foods that contain 200?500 mg of calcium a serving include: ? 8 oz (237 mL) of milk, gfjrlyj-bvwkuktiuoox-ppvya milk, and calcium-fortifiedfruit juice. Calcium-fortified means that calcium has been added to these drinks. ? 8 oz (237 mL) of kefir, yogurt, and soy yogurt. ? 4 oz (114 g) of tofu. ? 1 oz (28 g) of cheese. ? 1 cup (150 g) of dried figs. ? 1 cup (91 g) of cooked broccoli. ? One 3 oz (85 g) can of sardines or mackerel. Most people need 1,000?1,500 mg of calcium a day. Talk to your dietitian about how much calcium is recommended for you. Shopping ??? Buy plenty of fresh fruits and vegetables. Most people do not need to avoid fruits and vegetables, even if these foods contain nutrients that may contribute to kidney stones. ??? When shopping for convenience foods, choose: ? Whole pieces of fruit. ? Pre-made salads with dressing on the side. ? Low-fat fruit and yogurt smoothies. ??? Avoid buying frozen meals or prepared deli foods. These can be high in sodium. ??? Look for foods with live cultures, such as yogurt and kefir. ??? Choose high-fiber grains, such as whole-wheat breads, oat bran, and wheat cereals. Cooking ??? Do not add salt to food when cooking. Place a salt shaker on the table and allow each person to add their own salt to taste. ??? Use vegetable protein, such as beans, textured vegetable protein (TVP), or tofu, instead of meat in pasta, casseroles, and soups. Meal planning ??? Eat less salt, if told by your dietitian. To do this: ? Avoid eating processed or pre-made food. ? Avoid eating fast food. ??? Eat less animal protein, including cheese, meat, poultry, or fish, if told by your dietitian. To do this: ? Limit the number of times you have meat, poultry, fish, or cheese each week. Eat a diet free of meat at least 2 days a week. ? Eat only one serving each day of meat, poultry, fish, or seafood. ? When you prepare animal proteins, cut pieces into small portion sizes. For most meat and fish, one serving is about the size of the palm of your hand. ??? Eat at least five servings of fresh fruits and vegetables each day. To do this: ? Keep fruits and vegetables on hand for snacks. ? Eat one piece of fruit or a handful of berries with breakfast. ? Have a salad and fruit at lunch. ? Have two kinds of vegetables at dinner. ??? You may be told to limit foods that are high in a substance called oxalate. These include: ? Spinach (cooked), rhubarb, beets, sweet potatoes, and Emir[place] chard. ? Peanuts. ? Potato chips, nepalese fries, and baked potatoes with skin on. ? Nuts and nut products. ? Chocolate. ??? If you regularly take a diuretic medicine, make sure to eat at least 1 or 2 servings of fruits or vegetables that are high in potassium each day. These include: ? Avocado. ? Banana. ? Casey, prune, carrot, or tomato juice. ? Baked potato. ? Cabbage. ? Beans and split peas. Lifestyle ??? Drink enough fluid to keep your urine pale yellow. This is the most important thing you can do. Spread your fluid intake throughout the day. ??? If you drink alcohol: ? Limit how much you have to: ? 0?1 drink a day for women who are not . ? 0?2 drinks a day for men. ? Know how much alcohol is in your drink. In the [place] one drink equals one 12 oz bottle of beer (355 mL), one 5 oz glass of wine (148 mL), or one 1? oz glass of hard liquor (44 mL). ??? Lose weight if told by your health care provider. Work with your dietitian to find an eating plan and weight loss strategies that work best for you. General information ??? Talk to your health care provider and dietitian about taking daily supplements. Depending on your health and the cause of your kidney stones, you may be told: ? Do not take high-dose supplements of vitamin C (1,000 mg a day or more). ? To take a calcium supplement. ? To take a daily probiotic supplement. ? To take other supplements such as magnesium, fish oil, or vitamin B6. ??? Take zqhm-mvh-aedoqdd and prescription medicines only as told by your health (more content not included)... [facility] 09-05-2024 Evaluation note Diagnosis Onset Date Resolution Poison abena dermatitis acute Aug 1:43pm [facility] Work Phone: 1(719) 293-418906-03-2025 History of Present illness Narrative* MARGRET Canales - 08/14/2024 1:20 PM EDT Reason for Appointment: Patient ID: Tootie Vazquez [...] chew, or split. ALLERGIES Allergies Allergen Reactions Dbgabcn-Oqlxcr-Zdkex Pertussis Swelling Tetanus-Diphtheria Toxoids Td Other Azithromycin [...] Lt retrograde, Lt ureteroscopy, Ltstent per Dr. Romero. Patient scheduled to have stent removed on 09/06/24. Pain is tolerable but having some trouble with sleep, we will send ambien to help Documented by Laney Chow LPN on behalf of: MARGRET Canales documented in this encounterHermann Area District [id number] History of Present illness Narrative* Brenda Tomlinson - 07/23/2024 9:00 AM EDT Reason for Appointment: Patient ID: Tootie Vazquez [...] on 08/02/[address] Roland at [facility]. MEDICATIONS Current Outpatient Medications Medication Instructions Black [...] chew, or split. ALLERGIES Allergies Allergen Reactions Rdmtwvr-Npvtcp-Ousvu Pertussis Swelling Tetanus-Diphtheria Toxoids Td Other Azithromycin [...] nursing note reviewed. Exam conducted with a test tech present. Vitals: Estimated body mass index is [...] the patient in detail and patient desires surgicalmanagement at this time. Patient will undergo Diagnostic Laparoscopy, possible ABHAY, possible FOE, possible BSO, possible exploratory laparotomy and exam under anesthesia ([facility] with Dr. Romero) on 08/02/2024. Surgical consents were signed, mmc was reviewed, and patient is to proceed to [facility] OR. Follow Up: Patient is to follow up between 1-2 weeks post operative to assess proper healing and recovery fromprocedure. Documented by Laney Chow LPN on behalf of: Brent Roland DO documented in this encounterHermann Area District [id number] History of Present illness Narrative* Leatha Blair LPN - 07/10/2024 10:00 AM EDT Reason for Appointment: Patient ID: Tootie Vazquez [...] Oral, Daily ALLERGIES Allergies Allergen Reactions Adacel [Xaivphj-Vhpqzu-Cuzze Pertussis] Swelling Clindamycin Rash PROBLEMS Active Ambulatory [...] nursing note reviewed. Exam conducted with a test tech present. Vitals: Estimated body mass index is 31.13 kg/m as calculated from the following: Height as of 02/09/23: 5' 9 . Weight as of this [...] of: Brent Roland DO documented in this encounterHermann Area District [id number] Evaluation note* Diagnosis Onset Date Resolution Status Admit Date Obesity (BMI 30.0-34.9) acute J anuary 2024 11:26am Hypothyroidism acute May 16, 2024 10:00am Screening for lipid disorders acute May 16, 2024 10:00am Screening for metabolic disorder acu te May 16, 2024 10:00am Screening, deficiency anemia , iron acute May 16, 2024 10:00am Vitamin D deficiency acute [place] 2024 10:00am [facility] Work Phone: 1(695) 261-952212-04-2024 Evaluation note* Diagnosis Onset Date Resolution Status Admit Date Bronchitis acute February 15, 2024 1:00pm Maxillary sinusitis acute Decem 2023 1:00pm Obesity (BMI 30.0-34.9) acute D ecember 2023 1:00pm [facility] Work Phone: 1(575) 272-568202-08-2024 History of Present illness Narrative* MARGRET Canales - 04/21/2023 8:50 AM EST Reason for Appointment: Patient ID: Tootei Vazquez is a 32 y.o. female who presents for telehealth follow up Patient presents today via telephone call for a telehealth appointment. Patients Phone #: [phone] (mobile) Current Medications: has a current medication [...] LIGATION Bilateral 2012 Allergies Allergen Reactions Adacel [Yylovvs-Kwwmct-Zszkc Pertussis] Swelling Clindamycin Rash Vitals: Estimated body [...] for cbc check for kidney function to [facility]. Pt aware and agrees to have blood work obtained. She will follow up in office in 3 months Documented by MARGRET Canales on behalf of: MARGRET Canlaes * Hedy Carter MA - 04/21/2023 8:50 AM EST Cbc order was sent to [facility] for pt to have done. documented in this encounterHermann Area District [id number] Evaluation note* Encounter Date Diagnosis Assessment Notes Treatment Notes Treatment Clinical Notes Mar, Bronchitis (ICD-10 - J40) Discussed diagnosis with patient. Finish entire course of antibiotic. Proair inhaler sent today for patient to use PRN cough/wheezing/short ness of breath. Tessalon Pearles ordered to take as needed for cough. Increase fluids and rest. Jrhg-rmi-lqvzbzn antipyretics as needed. Warning signs and symptoms reviewed with patient today. Patient to go immediately to the ER should she experience any of these. Patient to notify office should her symptoms persist and not improve. Patient verbalizes understanding and agrees to treatment plan. Mar, Vaginal yeast infection (ICD-10 - B37.31) Pt requests diflucan to cover probable yeast infection w antibiotic. [facility] Other 12-29-2023 Evaluation note* Encounter Date Diagnosis Assessment Notes Treatment Notes Treatment Clinical Notes Feb, Sore throat (ICD-10 - J02.9) [facility] Other 10-06-2023 Evaluation note* Encounter Date Diagnosis Assessment Notes Treatment Notes Treatment Clinical Notes Dec, Hypothyroidism (ICD-10 - E03.9) Recheck in next 4-6 weeks. Continue healthy diet and exercise. [facility] Other 09-20-2023 Discharge summary Author Baljinder Polanco [facility] December 01, 2022 5:19pm Note Date/Time December 01, 2022 1:02pm [facility] [address] [place] [address] Discharge Summary Signed Patient: Karlene Vazquez MR#: [id number] : 1990 Acct:[id number] Age/Sex: 32 / F Adm Date: 3 Loc: Room: [address] [place] [address]: Baljinder Polanco MD Copies to: [...] thyroiditis, on levothyroxine supplementation. [facility] complaining of right [...] Clear, Urine pH >= 9.0, Ur Specific [place] 1.013, Urine Protein Negative, Urine Glucose (UA) [...] % (Auto) 59.2, Lymph % (Auto) 32.3, Blanco % (Auto) 6.8, Eos % (Auto) 0.9, Baso % (Auto) 0.8, Nucleat RBC Rel Count 0.2, Neut # (Auto) 4.9, Lymph # (Auto) 2.7, Blanco # (Auto) 0.6, Eos # (Auto) 0.1, Baso # (Auto) 0.1, Monocyte Dist Width19.22 11/30/22 13:00: PHA Creatinine Clear 114.08, Sodium 138, Potassium 4.1, Uslpniup530, Carbon Dioxide 23.9, Anion Gap 14.2, BUN 9, Creatinine 0.83, Est GFR (CKD-EPI) > 60.0, Glucose 77, Calcium 9.5, Magnesium 1.9, Total Bilirubin 0.9, DirectBilirubin 0.00 L, Indirect Bilirubin 0.9, AST 11 L, ALT 16, Alkaline Mlvnmaaelxt00, Total Protein 7.6, Albumin 4.4, Globulin 3.2, [...] <Electronically signed by Baljinder Polanco MD> 12/01/22 8686 [facility] Work Phone: 1(640) 671-599509-19-2023 History and physical note Author Baljindre Polanco [facility] November 30, 2022 4:34pm Note Date/Time November 30, 2022 4:34pm [facility] [address] [place] [address] Hospitalist H&P Signed Patient: Karlene Vazquez MR#: [id number] : 1990 Acct:[id number] Age/Sex: 32 / F Adm Date: 3 Loc: Room: [address] [place] [address] Type: ADM IN Attending Dr: Baljinder Polanco [...] rub or JVD. Peripheral pulses present bilaterally. Vnfvb-fx-zszj ultrasound is unremarkable. Lungs are clear to [...] DVT prophylaxis Xarelto [facility] Medical History (Updated 11/30/22 @ 15:13 by [...] % (Auto) 32.3 % (.) 11/30/22 13:00 Blanco % (Auto) 6.8 % (.) 11/30/22 13:00 Eos % (Auto) 0.9 % (.) 11/30/22 13:00 Baso % (Auto) 0.8 % (.) 11/30/22 13:00 Nucleat RBC Rel Count 0.2 /100 WBC (0-0.5) 11/30/22 13:00 Neut # (Auto) 4.9 x10E3/uL (1.8-7.7) 11/30/22 13:00 Lymph # (Auto) 2.7 x10E3/uL (1.00-4.8) 11/30/22 13:00 Blanco # (Auto) 0.6 x10E3/uL (0.0-0.8) 11/30/22 13:00 [...] >= 9.0 (5.0-9.0) 11/30/22 16:04 Ur Specific [place] 1.013 (1.001-1.030) 11/30/22 16:04 Urine Protein Negative [...] signed by Baljinder Polanco MD> 11/30/22 1634 [facility] Work Phone: [phone]) 454-369809-18-2023 Evaluation note* Encounter Date Diagnosis Assessment Notes [...] - E03.9) Pt's thyroid managed by her obstetrician and gynaecologist - will check levels - labs were normal in May [facility] Other 09-07-2023 Evaluation note* Encounter Date Diagnosis [...] index [BMI] 28.0-28.9, adult (ICD-10 - Z68.28) [facility] Other 08-25-2023 Evaluation note* Encounter Date Diagnosis Assessment Notes Treatment Notes Treatment Clinical Notes Oct, Allergic contact dermatitis, unspecified cause (ICD-10 - L23.9) Take medications as directed. Complete all doses. Wash all belongings that came in contact with plant oils. May continue to use Calamine lotion. Patient verbalized understanding and agreement with treatment plan. [facility] Other 08-07-2023 Evaluation note* Encounter Date Diagnosis [...] to ER and Follow-up with me immediately. [facility] Other 07-07-2023 Evaluation note* Encounter Date Diagnosis Assessment Notes Treatment Notes Treatment Clinical Notes Sep, Overweight (ICD-10 - E66.3) Sep, Body mass index [BMI] 29.0-29.9, adult (ICD-10 - Z68.29) [facility] Other 06-29-2023 Evaluation note* Encounter Date Diagnosis Assessment Notes Treatment Notes Treatment Clinical Notes Aug, Acute contact dermatitis (ICD-10 - L25.9) Take medications as directed. Complete all doses. Wash all belongings that came in contact with plant oils. May continue to use Calamine lotion. Patient verbalized understanding and agreement with treatment plan. [facility] Other 04-05-2023 NoteOPERATIVE NOTE OPERATION DATE: 06/16/2022 PROCEDURE: Diagnostic laparoscopy. PREOPERATIVE DIAGNOSIS: Pelvic pain, left ovarian cyst. POSTOPERATIVE DIAGNOSIS: Pelvic pain, left ovarian cyst. ANESTHESIA: General. SURGEON: Brent Roland D.O. END USER CONSULTANT: MIRNA Harden URINE OUTPUT: Yellow and clear. [...] taken to Recovery Room in stable condition.[id number] Hospital Discharge instructions Patient Education 05/21/2022 10:45:43 Kidney Stones, Krlz-qc-Rkoc Kidney Stones Kidney stones are rock-like masses [...] Follow these instructions at home: Medicines Take pyud-crj-mvxvghx and prescription medicines only as told by [...] 08/16/2008 Document Revised: 07/17/2019 Document Reviewed: 07/17/2019 [employer] Patient Education 2019 [employer]. Follow Up Care 05/11/2022 13:32:37 With:LUCY STILES, Kamaljit Rivas, URL Address: [address] [place], [place] [id number]- When: Unknown [facility] Evaluation note* Encounter Date Diagnosis Assessment Notes Treatment Notes Treatment Clinical Notes Mar, Pharyngitis, unspecified etiology (ICD-10 - J02.9) New medications as directed. Increase fluids, rest, good hand washing. OTC for fever/discomfort. Tooth brush in the wrapper layer and examiner soft work or get a new one after on antibiotics for 24 hours. F/U if no improvement in the next 72 hours Mar, Vaginal yeast infection (ICD-10 - B37.31) Will treat empirically for yeast, discharge and sx reported consistent with that of vaginal candidiasis. Instructed patient to take as directed, advised that she should feel improvement in about 2 days. [facility] Other 11-02-2022 Hospital Discharge instructions Patient Education [...] 02/14/2013 Document Revised: 10/18/2018 Document Reviewed: 10/18/2018 [employer] Patient Education 2020 [employer]. Follow Up Care 01/11/2022 14:36:11 With:[facility] Address: [address] [place] [address] Business (1) When: Unknown Comments:for procedure as scheduled [facility] 01-26-2022 Evaluation note* Encounter Date Diagnosis Assessment [...] Patient care instructions given in writting by [facility] Care At Home document. [place] [employer] Other Evaluation + Plan note No data available for this section [facility] evaluation + Plan note Future Appointments Appointment Date:09/03/2022 08:00:00 AM Scheduled Provider:Kamaljit ROMERO MD Location:[facility] Appointment Type:URO Office Visit [facility] evaluation + Plan note Future Appointments Appointment Date:12/28/2024 08:00:00 AM Scheduled Provider:Kamaljit ROMERO MD Location:[facility] Appointment Type:URO Office Visit [facility] Evaluation noteNo assessment information available [facility] Work Phone: evaluation noteNo InformationNortPhysicians Care [facility] ChaseFuture Other Evaluation note* Diagnosis Onset Date Resolution Status Chest pain acute Tachycardia acute [facility] Work Phone: Evaluation note* Diagnosis Insulin resistance Other abnormal glucose Metabolic syndrome Dysmetabolic Syndrome X Hormone imbalance documented in this encounter [facility]* Diagnosis Onset Date Resolution Status Allergic reaction due to antibacterial drug acute Streptococcus pharyngitis ac jacinda [facility] Work Phone: Evaluation note* Diagnosis Onset Date Resolution Status Anxiety acute Thyroid disease acute Migraines acute Screening for lipid disorders acute Screening for metabolic disorder acute Screening, deficiency anemia, iron acute [facility] Work Phone: Evaluation note* Diagnosis Onset Date Resolution Status Migraines acute Screening for lipid disorders acute Screening for metabolic disorder acute Screening, deficiency anemia, iron acute Left knee pain acute [facility] Work Phone: Evaluation note* Diagnosis Onset Date Resolution Status Migraines acute Screening for lipid disorders acute Screening for metabolic disorder acute Screening, deficiency anemia, iron acute Left knee pain acute Wellness examination acute Poison abena dermatitis acute [facility] Work Phone: Evaluation note* Diagnosis Pelvic pain documented in this encounter [facility]* Diagnosis Pre-op evaluation Pelvic pain in female Unspecified symptom associated with female genital organs Pain of ovary H/O: hysterectomy Acquired absence of both cervix and uterus documented in this encounter [facility] HealthcareEvaluation note* Diagnosis Acute postoperative pain Other acute postoperative pain Postoperative follow-up Follow-up examination, following unspecified surgery Other insomnia documented in this encounter [facility] HealthcareEvaluation note* Diagnosis Onset Date Resolution Status Admit Date Poison abena dermatitis acute Aug e 2024 1:43pm [facility] Work Phone: Evaluation note* Diagnosis Well woman exam with routine gynecological exam Routine gynecological examination Insulin resistance Other abnormal glucose Encounter for weight loss counseling documented in this encounter [facility] HealthcareHistory general Narrative - Reported* Type Description Date Medical History hypothyroidism Surgical History gallbladder removal Surgical History appendecs Surgical History ovarian cysts taken out in 2007 Surgical History hysterectomy Hospitalization History surgeries Hospitalization History child [facility] Other History general Narrative - Reported* Type Description Date Medical History hypothyroidism Surgical History gallbladder removal Surgical History appendecs Surgical History ovarian cysts taken out in 2007 Surgical History hysterectomy Hospitalization History surgeries Hospitalization History child Hospitalization History [facility] chest pain 11/2022 [facility] Other Hospital Discharge instructions Additional Instructions You have slightly elevated cholesterol level and prediabetes. Try to eat a healthier diet. Mediterranean diet is the best studied to improve health outcomes. I attached some instructions. Establish care with a primary care physician who will manage all your health issues.[facility] Work Phone: Progress note No data available for this section [facility] reason for referral (narrative)No reason for referral information availableChildren[facility] Work Phone: Advance Directives No Advanced Directives Records Found Advance Directive Response Recorded Date/ Time Advance Directives No April 12, 2017 2:55pm Advance Directive Response Recorded Date/ Time Advance Directives No April 12, 2017 3:55pm Summary Purpose Family History No Family History Records Found Relationship Condition Age at Onset Recorded Date/T [...] Date Rash September 05, 2024 1:43 pm LT flank Pain;Uretrial stricture October 29, 2024 7:36am Reason for Visit Admit Date Poison abena dermatitis September 05, 2024 1: 43pm Chief Complaint chest pain sob Reason for [...] Date Rash September 05, 2024 1:43 pm Additional Source Comments REASON FOR VISIT (unrecogniz ed section and content) Reason Comments telehealth follow up Reason Comments Pelvic Pain Left sided Reason Comments Pre-op Visit Pt present today for a pre operative visit. Reason Comments Post-op Visit Reason Comments Well Women Visit Patient Care team informatio n (unrecognized section and content) Team Status: Active Member Role Status Dates Surya Hodges MD Primary Care Provider Active Team Status: Inactive Member Role Status Dates Surya Hodges MD Primary Care Provider Active Start: September 07, 2023 End: September 07, 2023 Saniya Mays APRN VITAMIN MANAGER-C Attending Provider Act ellie Start: September 07, 2023 End: September 07, 2023 Team Status: Inactive Member Role Status Devin Hodges MD Primary Care Provide r, Attending Provider Active Start: October 03, 2023 End: October 03, 2023 Team Status: Inactive Member Role Status Dates Surya Hodges MD Primary Care Provider Active Start: October 10, 2023 End: October 10, 2023 Saniya Mays APRN VITAMIN MANAGER-C Attending Provider Act ellie Start: October 10, 2023 End: October 10, 2023 Team Status: Inactive Member Role Status Deivn Hodges MD Primary Care Provide r, Attending [...] Polanco MD Admit Provider, Attending Provider Active Page Makeup System Operator Relationship Specialty Start Date End Date Surya Hodges MD [address] [place] [address] PCP - General Family Medicine 09/27/22 Team Status: Active Member Role Status Dates Saniya Mays APRN VITAMIN MANAGER-C Primary Care Provider Active Team Status: Inactive Member Role Status Dates Saniya Mays APRN VITAMIN MANAGER-C Primary Care Provider, Attending Provider Active Start: February 15, 2024 End: February 15, 2024 Team Status: Inactive Member Role Status Dates Saniya Mays APRN VITAMIN MANAGER-C Primary Care Provider, Attending Provider Active Start: March 15, 2024 End: March 15, 2024 Team Status: Inactive Member Role Status Dates Saniya Mays APRN VITAMIN MANAGER-C Primary Care Provider, Attending Provider Active Start: May 16, 2024 End: May 16, 2024 Page Makeup System Operator Relationship Specialty Start Date End Date Surya Hodges MD PCP - General Family Medicine 09/27/22 Page Makeup System Operator Relationship Specialty Start Date End Date Surya Hodges MD [address] [facility] [place] [address] PCP - General Family Medicine 09/27/22 Page Makeup System Operator Relationship Specialty Start Date End Date Surya Hodges MD [address] [place] [facility] [place] [address] PCP - General Family Medicine 09/27/22 Page Makeup System Operator Relationship Specialty Start Date End Date Surya Hodges MD [address] [facility] [place] [address] PCP - General Family Medicine 09/27/22 Page Makeup System Operator Relationship Specialty Start Date End Date Surya Hodges MD [address] [facility] [place] [address] PCP - General Family Medicine 09/27/22 Page Makeup System Operator Relationship Specialty Start Date End Date Surya Hodges MD [address] [facility] [place] [address] PCP - General Family Medicine 09/27/22 Page Makeup System Operator Relationship Specialty Start Date End Date Surya Hodges MD [address] [facility] [place] [address] PCP - General Family Medicine 09/27/22 Team Status: Active Member Role Status Dates Saniya Mays APRN VITAMIN MANAGER-Jocelyne Primary Care Provider Active Start: July 23, 2024 Brent Roland DO Attending Provider Active Start : July 23, 2024 Team Status: Active Member Role Status Dates Saniya Mays APRN NP-Jocelyne Primary Care Provider Active Start: August 02, 2024 Brent Roland DO Attending Provider Active Start : August 02, 2024 Team Status: Active Member Role Status Dates Saniya Rohrbacher , PEBBLE MILL OPERATOR VITAMIN MANAGER-C Primary Care Provider Active Start: August 23, 2024 Kamaljit Romero MD Attending Provider Active St art: August 23, 2024 Team Status: Inactive Member Role Status Dates Saniya Mays APRN VITAMIN MANAGER-C Primary Care Provider Active Start: September 05, 2024 End: September 05, 2024 Saniya Mays APRN VITAMIN MANAGER-C Attending Provider Act ellie Start: September 05, 2024 End: September 05, 2024 Page Makeup System Operator Relationship Specialty Start Date End Date Surya Hodges MD [address] [facility] [place] [id number] PCP - General Family Medicine 09/27/22 Page Makeup System Operator Relationship Specialty Start Date End Date Surya Hodges MD [address] [place] [address] PCP - General Family Medicine 09/27/22 Team Status: Active Member Role Status Dates Saniya Mays APRN VITAMIN MANAGER-C Primary Care Provider Active Start: October 09, 2024 Brent Roland DO Attending Provider Active Start : October 09, 2024 Team Status: Inactive Member Role Status Dates Saniya Mays APRN VITAMIN MANAGER-C Primary Care Provider Active Start: October 29, 2024 End: October 29, 2024 Kamaljit Romero MD Attending Provider Active St art: October 29, 2024 End: October 29, 2024 Goals (unrecognized section and content) Goals may be documented in a n alternate section INFORMATION SOURCE (unrecogn ized section and content) DATE CREATED AUTHOR 07/01/2022 [facility] DATE CREATED AUTHOR AUTHOR'S ORGANIZ ATION 10/04/2024 [facility] DATE CREATED AUTHOR AUTHOR'S ORGANIZ ATION 10/11/2024 [facility]ical [facility] DATE CREATED AUTHOR AUTHOR'S ORGANIZ ATION 10/31/2024 [facility] FOR RECORDS PERTAINING TO PATIENTS WHO ARE [...] BE BASED ON THE PRIMARY CLINICAL RECORDS. [facility]. provides no warranty or guarantee of the accuracy or completeness of information in this document.
--- NOTE | 2024-11-08 08:40 | P.GSHP_ITS ---
History of Present Illness History of Present Illness Chief complaint: Left Ureteral Stricture Narrative: Patient presents for presurgical testing. The patient had a ureteroscopy and left stent placed here on September 06, 2024. The patient states she had the stent removed on October 02, 2024 but continues to have left flank pain. She states she had an IVP done recently and was diagnosed with a narrowing of her ureter. She states she is scheduled for a stent placement here and has been referred to a specialist at the [facility] for further treatment. She denies dysuria, hematuria, fever, nausea, vomiting, or any other complaints. Review of Systems ROS Narrative REVIEW OF SYSTEMS: Negative except as stated in HPI, ten or more systems reviewed. Constitutional: No fever, chills, weakness ENT: No sore throat or epistaxis Cardiovascular: No edema, chest pain, palpitations, or activity intolerance Respiratory: No shortness of breath, cough, or wheezing Musculoskeletal: No joint pain or swelling Gastrointestinal: No abdominal pain, constipation, diarrhea, or vomiting Genitourinary: No dysuria or hematuria Neurological: No numbness, tingling, weakness, or headache Psychiatric: No mood changes [facility] Medical History (Updated 11/08/24 @ 08:26 by Sanjuanita Kaur NP) UPJ (ureteropelvic junction) obstruction ?N13.5 - Crossing vessel and stricture of ureter without hydronephrosis (ICD- 10) Ureteral stricture, left ?N13.5 - Crossing vessel and stricture of ureter without hydronephrosis (ICD- 10) Left flank pain ?R10.9 - Unspecified abdominal pain (ICD-10) History of blood transfusion ?Z92.89 - Personal history of other medical treatment (ICD-10) Migraine ?G43.909 - Migraine, unspecified, not intractable, without status migrainosus (ICD-10) Kidney stones ?N20.0 - Calculus of kidney (ICD-10) PCOS (polycystic ovarian syndrome) ?E28.2 - Polycystic ovarian syndrome (ICD-10) Postoperative nausea and vomiting ?R11.2 - Nausea with vomiting, unspecified (ICD-10) ?Z98.890 - Other specified postprocedural states (ICD-10) Low iron ?E61.1 - Iron deficiency (ICD-10) Hypothyroidism (acquired) ?E03.9 - Hypothyroidism, unspecified (ICD-10) Fatigue ?R53.83 - Other fatigue (ICD-10) Hypertension ?I10 - Essential (primary) hypertension (ICD-10) Anxiety ?F41.9 - Anxiety disorder, unspecified (ICD-10) Pain of ovary ?N94.89 - Other specified conditions associated with female genital organs and menstrual cycle (ICD-10) Pelvic pain ?R10.2 - Pelvic and perineal pain (ICD-10) Surgical History (Updated 11/07/24 @ 12:59 by Sanjuanita Kaur NP) S/P ureteral stent placement (09/06/24) ?Z96.0 - Presence of urogenital implants (ICD-10) S/P cystoscopy with ureteral stent placement ?Z96.0 - Presence of urogenital implants (ICD-10) H/O laparoscopy (08/02/24) ?Z98.890 - Other specified postprocedural states (ICD-10) History of bladder surgery ?Z98.890 - Other specified postprocedural states (ICD-10) History of bilateral salpingectomy ?Z90.79 - Acquired absence of other genital organ(s) (ICD-10) History of laparoscopy ?Z98.890 - Other specified postprocedural states (ICD-10) History of tubal ligation ?Z98.51 - Tubal ligation status (ICD-10) History of endometrial ablation ?Z98.890 - Other specified postprocedural states (ICD-10) History of ovarian cystectomy ?Z98.890 - Other specified postprocedural states (ICD-10) ?Z87.42 - Personal history of other diseases of the female genital tract (ICD -10) History of cholecystectomy ?Z90.49 - Acquired absence of other specified parts of digestive tract (ICD- 10) History of appendectomy ?Z90.49 - Acquired absence of other specified parts of digestive tract (ICD- 10) History of hysterectomy ?Z90.710 - Acquired absence of both cervix and uterus (ICD-10) Family History (Updated 07/23/24 @ 11:18 by Sanjuanita Kaur NP) Other Family history of cervical cancer Family history of hypertension Family history of leukemia Family history of myocardial infarction Family history of renal failure Family history of throat cancer Family history of thyroid cancer Social History (Updated 07/23/24 @ 11:15 by Sanjuanita Kaur NP) Within the past year, how often did you have a drink containing alcohol: 2-4 times a month Smoking status: Never smoker Non-prescribed substance use: denies use 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 Highest level of school completed/degree received: high school graduate Meds Home Medications and Allergies Home Medications ?Medication ?Instructions ?Recorded ?Confirmed ?Type ibuprofen 800 mg tablet 800 mg PO Q8H PRN pain 07/2311/08/24 History levothyroxine 137 mcg tablet 137 mcg PO DAILY 07/23/24 11/08/24 History liothyronine 5 mcg tablet 5 mcg PO DAILY 07/23/24 08/11/05 History metformin 500 mg tablet,extended 500 mg PO DAILY 07/2311/08/24 History release 24 hr acetaminophen 500 mg capsule 1,000 mg PO QID PRN pain 08/23/24 11/08/24 History tamsulosin 0.4 mg capsule 0.4 mg PO DAILY 08/23/24 History Allergies Allergy/AdvReac Type Severity Reaction Status Date / Time pertussis vaccine,adsorbed Allergy Severe swelling Verified 11/08/24 08:22 azithromycin Allergy Hives Verified 11/08/24 08:22 clindamycin Allergy Rash Verified 11/08/24 08:22 tetanus and diphtheria Allergy swelling Verified 11/08/24 08:22 toxoids Exam Narrative Exam Narrative: Constitutional: Awake, alert, comfortable, well-appearing, nontoxic, interactive, vital signs as charted Head: Normocephalic, atraumatic Neck: Supple, normal appearance, normal range of motion, no meningeal signs, no lymphadenopathy Respiratory: No respiratory distress, breath sounds clear Cardiovascular: Regular rate and rhythm, strong and regular heart tones Abdomen: Nontender, normal bowel sounds, soft, no CVA tenderness Musculoskeletal: Normal gait, no swelling or edema Skin: No rashes or induration, no lesions, only visible skin inspected Neuro: No neurological deficits, normal sensation Psychiatric: Oriented ?3, normal affect Assessment and Plan Assessment and Plan (1) UPJ (ureteropelvic junction) obstruction: (2) Ureteral stricture, left: (3) Left flank pain: Plan Cystoscopy, left retrograde, left stent placement scheduled with Dr. Romero November 15, 2024.
[2024-11-08 08:56] LABS: Hematocrit 38.5 % (36.0-48.0); Hemoglobin 12.5 g/dL (12.0-16.0); Immature Granulocytes Abs Auto 0.01 10^3/uL (0.00-0.03); Immature Granulocytes Pct Auto 0.1 % (0.0-0.5); Lymphocytes Absolute Auto 2.6 10^3/uL (1.2-3.8); Mean Corpuscular HGB Conc 32.5 g/dL (29.9-35.2); Mean Corpuscular Hemoglobin 26.6 pg (26.7-34.0); Mean Corpuscular Volume 81.9 fL (81.0-99.0); Platelet Count 334 10^3/uL (150-450); Red Blood Count 4.70 10^6/uL (4.20-5.40); White Blood Count 7.3 10^3/uL (4.0-11.0)
[2024-11-08 09:21] LABS: Anion Gap 13.7; Blood Urea Nitrogen 13.0 mg/dL (7.0-18.0); Calcium 8.4 mg/dL (8.5-10.1); Carbon Dioxide 25.2 mmol/L (21.0-32.0); Chloride 105 mmol/L (98-107); Estimated GFR (African America >60 (>=60 mL/min/1.73m^2); Estimated GFR (Non-African Ame >60 (>=60 mL/min/1.73m^2); Glucose 101 mg/dL (74-106); Potassium 3.9 mmol/L (3.5-5.1); Sodium 140 mmol/L (136-145)
== END 2024-11-08 07:44 | disposition home or self-care (01) ==
LOC: PST 07:43
PROVIDERS: PCP Nurse Practitioner Family; Visit Provider Urology
DX: Z01.812 Encounter for preprocedural laboratory examination (principal); Z01.818 Encounter for other preprocedural examination; N13.0 Hydronephrosis with ureteropelvic junction obstruction
CPT/HCPCS: 80048; 85025; G0463

== ENCOUNTER 2024-11-15 09:58 | Day surgery (SDC) | payer BC, SELFPAY ==
[2024-11-08 08:36] VITALS: BP 120/80; PULSE 77; TEMP 36.4; O2SAT 99; BMI 30.6
[2024-11-15] VITALS (12 sets, daily range): BP systolic 119–141; BP diastolic 73–99; PULSE 60–88; TEMP 36.1–36.2; O2SAT 94–100; BMI 30.3
--- OUTSIDE RECORDS SUMMARY | 2024-11-15 10:05 | XMS_ITS | CCD ---
Author Organization [facility] CliniSyms Care Team Providers Care Oversize Load Pilot Escort Name Role Phone Treasure Quezada Unavailable SURYA HODGES Primary Care Physician [phone] MD Surya Hodges Primary Care Provider [phone] KITA Quezada Attending Provider [phone] Surya Hodges Unavailable ASUNCION ., DR SEYMOUR Admitting Unavailable HODGES, DR SURYA Dejesus Primary Care Unavailable BRIDGETTE PATEL Consulting Unavailable ASUNCION ., DR SEYMOUR Attending Unavailable ASUNCION ., DR SEYMOUR Admitting Unavailable ASUNCION ., DR SEYMOUR Consulting Unavailable HODGES, DR SURYA Dejesus Primary Care Unavailable ASUNCION ., DR SEYMOUR Attending Unavailable CHELSEA PINTO Consulting Unavailable BO II, MATHEW Consulting Unavailable ASUNCION ., DR SEYMOUR Admitting Unavailable ASUNCION ., DR SEYMOUR Consulting Unavailable HODGES, DR SURYA Dejesus Primary Care Unavailable ASUNCION ., DR SEYMOUR Attending Unavailable LUE ., JULIETH Pena Attending Unavailable LUE ., JULIETH Pena Admitting Unavailable LUE ., JULIETH Pena Consulting Unavailable TRACIE, DR SURYA Dejesus Primary Care Unavailable ROMERO ., DR NAQVI Attending Unavailable ROMERO ., DR NAQVI Admitting Unavailable ROMERO ., DR NAQVI Consulting Unavailable ZIEBER, DR DAVID Rivas Consulting Unavailable ASUNCION ., DR SEYMOUR Admitting Unavailable ASUNCION ., DR SEYMOUR Consulting Unavailable TRACIE, DR SURYA Dejesus Primary Care Unavailable ASUNCION ., DR SEYMOUR Attending Unavailable HODGES, DR SURYA Dejesus Primary Care Unavailable ROMERO ., DR NAQVI Attending Unavailable ROMERO ., DR NAQVI Admitting Unavailable HODGES, DR SURYA Dejesus Primary Care Unavailable BRINA SHEIKH Attending Unavailable BRINA SHEIKH Admitting Unavailable ASUNCION ., DR SEYMOUR Admitting Unavailable ASUNCION ., DR SEYMOUR Consulting Unavailable TRACIE, DR SURYA Dejesus Primary Care Unavailable ASUNCION ., DR SEYMOUR Attending Unavailable ASUNCION ., DR SEYMOUR Consulting Unavailable HODGES, DR SURYA Dejesus Primary Care Unavailable ASUNCION ., DR SEYMOUR Attending Unavailable ASUNCION ., DR SEYMOUR Admitting Unavailable Kayla Acosta Consulting Unavailable KORI, BRINA Admitting Unavailable KORI, BRINA Attending Unavailable TRACIE, DR SURYA Dejesus Primary Care Unavailable TRACIE, DR SURYA Dejesus Primary Care Unavailable LIMA, DR CROW Rivas Admitting Unavailable LIMA, DR CROW Rivas Consulting Unavailable LIMA, DR CROW Rivas Attending Unavailable LIZETTE, MAGI Pimentel Consulting Unavailable MANDY, LEATHA Consulting Unavailable MAYLIN, RERE Consulting Unavailable MD Surya Hodges Primary Care Provider [phone] DO Marcio Steven Emergency Provider MD Baljinder Polanco Admit Provider MD Baljinder Polanco Attending Provider [phone] Jason Beasley Unavailable Tracie STILES, Surya Primary Care Provider Surya Hodges MD Primary Care Provider Surya Hodges MD Primary Care Provider [phone] Saniya Mays APRN Primary Care Provider Brent Roland DO Attending Provider Kamaljit Romero MD Attending Provider Saniya Mays APRN Attending Provider BRENT ROLAND Attending Unavailable BRENT ROLAND Attending Unavailable YESICA BECKER Attending Unavailable BRENT ROLAND Attending Unavailable Saniya Mays APRN Primary Care Provider Brent Roland DO Attending Provider [phone] Saniya Mays Primary Care Unavailable Kamaljit Romero Attending Unavailable Kamaljit Romero Admitting Unavailable Kamaljit ROMERO Attending Unavailable ROMERO, Kamaljit R Attending Unavailable ROMERO, Kamaljit R Attending Unavailable ROMEROKamaljit R Attending Unavailable ROMEROKamaljit Attending Unavailable Allergies Allergy Classification Reported Allergen(s) Allergy Type Date of Onset Reaction(s) Facility (20 sources) Azithromycin; Translations: [azithromycin] Drug Allergy 4 rash, Eruption of skin (disorder) [facility] (20 sources) whooping cough Propensity to adverse reactions 4 swelling injection site [facility] (16 sources) Bordetella pertussis filamentous hemagglutinin vaccine, inactivated / Bordetella pertussis fimbriae 2/3 vaccine, inactivated / Bordetella pertussis pertactin vaccine, inactivated / Bordetella pertussis toxoid vaccine, inactivated / diphtheria toxoid vaccine, inactivated / tetanus toxoid vaccine, inactivated; Translations: [diphtheria/pertu ssis, acel/tetanus adult] Drug Allergy 0 Unknown, Comment:vaccin e [facility] (20 sources) Clindamycin; Translations: [clindamycin] Drug Allergy 0 Rash [facility] Comment on above: Onset Date: 03/14/19 20 (2 sources) acellular pertussis vaccine, inactivated / diphtheria toxoid vaccine, inactivated / tetanus toxoid vaccine, inactivated Drug Allergy [facility] Repository (2 sources) Clindamycin Drug Allergy [facility] Repository (10 sources) vaccine adjuvant system, AS01B liposomal Allergy to substance 3 Rash [facility] (17 sources) Ocoibqb-Mhkzdm-Pt ell Pertussis Propensity to adverse reactions 3 Swelling [facility] Work Phone: (9 sources) diphtheria,pertus sis (acellular),te Allergy to substance 4 Comment:feliciain e [facility] Comment on above: Onset Date: 03/14/19 20 (8 sources) Penicillins Allergy to substance 4 Hives [facility] (11 sources) Tetanus-Diphtheri a Toxoids Td Drug Allergy 5 Other [facility] Medications Current Medications Medication Drug Class(es) Dates Sig (Normalized) Sig (Original) 0.5 ML tirzepatide 5 MG/ML Auto-Injector [Stephanero] (1 source) Start: 01-13-2022 inject 1 mg [...] 7 days 28 tablet 07/10/2024 07/17/2024 Active [id number] actuat albuterol 0.09 mg/actuat metered dose [...] 05-21-2022 Celexa Refills (s) 0 Start Date: 3/10/23 Status: Ordered End: 04-21-2023 take 1 tablet [...] once daily take 1 tablet by tory th every twenty-four hours Liothyronine Sodium 5 [...] BID, # 60 tab(s), Refills(s) 1, [id number] Start Date: 09/06/24 Status: Ordered Quantity: [...] day(s), # 60 tab(s), Refills(s) 0, Pharmacy: [facility]/pharmacy #[id number] Start Date: 09/06/24 Stop [...] Daily, # 30 cap(s), Refills(s) 0, Pharmacy: [facility]/pharmacy #[id number] Start Date: 09/06/24 Status: [...] procedure, # 2 tab(s), Refills(s) 0, Pharmacy: [facility]/pharmacy #[id number] Start Date: 09/11/24 Status: [...] 11:47am Start: 03-11-2023 take 1 capsule by [facility] every twelve hours Doxycycline Hyclate 100 [...] deficiency] Episodic Other aftercare (1 source) Other custodial (current) drug therapy; Translations: [OTH LONGTERM CURRENT DRUG THERAPY] Onset: 3 Episodic Other aftercare (3 sources) Long-term current use of drug therapy; Translations: [Other custodial (current) drug therapy] Episodic Other aftercare (3 [...] for screening for human papillomavirus (HPV)] Onset: 01-26-2022 Resolved: 04-08-2021 Episodic Inflammation; infection of eye [...] MDRD (S/P/Bld) [Vol rate/Area] mL/min/{1.73_m2} Normal [facility] Comment on above: Order Comment: STAT FOR IVP Result Comment: PERF ORMED BY: [place] [address] PATHOLOGIST PSYCHIATRY ADULT PHYSICIAN ZITA BATISTA M.D. Performed By: #### C REAT #### [facility] [address] [place] [address] Creatinine [Mass/volume] in Serum or PlasmaOrdered By: Kamaljit Romero on 10-29-2024 Creatinine [Mass/Vol] 0.77 mg/dL Normal 0.60-1.20 [facility] Comment on above: Order Comment: STAT FOR IVP Performed By: #### C REAT #### [facility] [address] [place] [address] No Panel InformationOrdered By: Kamaljit Romero on 10-29-2024 Estimated GFR (CKD-EPI) > 60.0 mL/Min [facility] Creatinine Clearance (Chem N/A [facility] X-ray reportOrdered By: Crow Ramos on 10-29-2024 Study report [facility] [place] [address] [place] [address] XRay Report Signed Patient: Karlene Vazquez MR#: [id number] : 1990 Acct:[id number] Age/Sex: 34 / F ADM Date: 5 Loc: XD Room: Type: [facility] Attending Dr: Kamaljit Romero MD Copies to: Kamaljit Romero MD~ Ordering Provider: Kamaljit Romero MD Date of Service: 10/29/24 XR/XR IVP: LT FLANK PAIN, URETERAL STICTURE XR IVP 10/29/2024 8:56 AM SIGNS AND SYMPTOMS: ^LT FLANK PAIN, URETERAL STICTURE ^HOLDING RM FOR LABS PROTOCOL: Rx Specialist radiographs of the abdomen and pelvis were [...] Ramos M.D. 10/29/2024 10:15 AM Dictation Location: [place] [address] Transcribed By: TORITO 10/29/24 1015 Dictated By: Crow Ramos II, MD 10/29/24 1011 Signed By: 10/29/24 1015 [facility] Work Phone: XR IVPon 10-29-2024 XR IVP [facility] [place] [address] [place], [place] [id number] XRay Report Signed Patient: Karlene Vazquez MR#: [id number] : 1990 Acct:[id number] Age/Sex: 34 / F ADM Date: 10/29/24 Loc: XD Room: Type: [facility] Attending Dr: Kamaljit Romero MD Copies to: Kamaljit Romero MD Ordering Provider: Kamaljit Romero MD Date of Service: 10/29/24 XR/XR IVP: LT FLANK PAIN, URETERAL STICTURE XR IVP 10/29/2024 8:56 AM SIGNS AND SYMPTOMS: LT FLANK PAIN, URETERAL STICTURE HOLDING RM FOR LABS PROTOCOL: Rx Specialist radiographs of the abdomen and pelvis were [...] Ramos M.D. 10/29/2024 10:15 AM Dictation Location: [place] [address] Transcribed By: [facility] 10/29/24 1015 Dictated By: Crow Ramos II, MD 10/29/24 1011 Signed By: 10/29/24 1015 Normal [facility] IGP,APTIMA HPV,AGE GDLNon AGE GDLN ACOG TESTING Note . [facility] Comment on above: TESTS RESULT FLAG UN ITS REF RANGE LAB Clinician Provided Cytology Information Source.............Vagina No. of containers..01 ThinPrep Vial Age Algo ACOG Olga... FLAG LEGEND: L-Low Normal,H-High Normal,LL-Alert Low,HH-Alert High <-Panic Low,>-Panic High,A-Abnormal,AA-Critical Abnormal Performed at: 01 =G [address] [address] Ernestina Carballo MD, HPV APTIMA Negative Negative [facility] Comment on above: This nucleic acid am plification test detects fourteen high- risk HPV types (16,18,31,33,35,39,45,51,52,56,58,59,66,68) without differentiation. Performed at: =[address] [id number] Feltmaker And Weigher: Ernestina Carballo MD, Phone: [phone] Performed at: [address] [id number] Feltmaker And Weigher: Ernestina Carballo MD, Phone: [phone] IGP, APTIMA HPV, RFX 16/18,45 Note . [facility] Comment on above: TESTS RESULT FLAG UN ITS REF RANGE LAB DIAGNOSIS: 02 NEGATIVE FOR INTRAEPITHELIAL LESION OR MALIGNANCY. Specimen adequacy: 02 Satisfactory for evaluation. No endocervical component is identified. Performed by: 02 Delphine Taylor, Sticker Hand ([facility]) . 02 Note: Note 02 The Pap [...] High,A-Abnormal,AA-Critical Abnormal Performed at: 02 WB [facility] [address] [place] [address] Ernestina Carballo MD, SP[facility]ULA[facility] Human papilloma virus 16+18+ 31+33+35+39+45+51+52+56+58+59+66+68 DNA [Presence] in CerOrdered By: Brent Roland on 10-09-2024 HPV 16+18+31+33+35+39+45+5 1+52+56+58+59+66+68 DNA Probe+sig amp Ql (Cvx) Negative Negative [facility] Comment on above: This nucleic acid am plification test detects fourteen high- risk HPV types (16,18,31,33,35,39,45,51,52,56,58,59,66,68)without differentiation.Performed at: =G - [facility] [id number] [place], [place] [id number] Director: Ernestina Carballo MD, Phone: [phone] at: WB - [facility] [id number] [facility], [place] [id number] Director: Ernestina Carballo MD, Phone: [phone] No Panel InformationOrdered By: Brent Roland on 10-09-2024 HPV High Risk Other Comment Note . [facility] Comment on above: TESTS RESULT FLAG UN ITS REF RANGE LAB DIAGNOSIS: 02 NEGATIVE FOR INTRAEPITHELIAL LESION OR MALIGNANCY.Specimen adequacy: 02 Satisfactory for evaluation. No endocervical component is identified.Performed by: Tierra Taylor, Sticker Hand ([facility]). 02Note: Note 02 The Pap smear is [...] Low,>-Panic High,A-Abnormal,AA-Critical Abnormal -----Performed at:02 WB [facility] [address] [facility] [place] [address] Ernestina Carballo MD, Reference Lab Test Patient Age Note . [facility] Comment on above: TESTS RESULT FLAG UN ITS REF RANGE LAB Clinician Provided Cytology Information Source.............Vagina No. of containers..01 ThinPrep VialAge Algo ACOG Olga... 30-65 01 FLAG LEGEND: L-Low Normal,H-High Normal,LL-Alert Low,HH-Alert High <-Panic Low,>-Panic High,A-Abnormal,AA-Critical Abnormal -----Performed at:01 =G [facility] [address] [facility] [place] [address] Ernestina Carballo MD, Ambulatory Visit Summaryon 0 10-02-2024 Ambulatory Visit Summary Ambulatory Visit Summary KARLENE VAZQUEZ :1990 Visit Date:10/02/2024 Ambulatory Visit Instructions Your [...] SAVITA When: Where: [facility] [address] , [place] [address]- Medications What How Much When Instructions Unchanged [...] ? 8 oz (237 mL) of milk, tcgaekk-fkcrmmozxuvg-glii y milk, and calcium-fortifiedfruit juice. Calcium-fortified means [...] vegetable (more content not included)... Normal [facility] Office/Clinic Noteon 10-02-2024 Urology Office/Clinic Note [...] ureteral stricture found. 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 [facility] Comment on above: Result Comment: Elec tronically Signed By: Kamaljit ROMERO MD\.br\Date and Time Signed: 10/02/24 15:55 EDT\.br\Electronically Co-Signed By: Debbie Guadalupe\.br\Date and Time Co-Signed: 10/02/24 15:45 EDT Provider Letteron 09-13-2024 Provider Letter Provider Letter September 13, 2024 KARLENE VAZQUEZ [address] [phone] : 1990 To Whom It May Concern, Please excuse above patient from work. Date of Illness: From: 09/06/24 To: 10/02/24 May Return to Work On: 10/03/24 Restrictions: None Comments: Continuation of FMLA from 09/06/24- 10/02/24. Patient may return to work without restrictions on 10/03/24. Sincerely, [facility]/ Dr. Kamaljit Romero [address] [facility] [place] [address] [facility] Comment on above: Other Comment: corre ction/ pt change mind Provider Letter Provider Letter September 13, 2024 KARLENE VAZQUEZ [address] [place] [phone] : 1990 To Whom It May Concern, Please excuse above patient from work. Date of Illness: From: 09/06/24 To: 09/17/24 May Return to Work On:09/18/24 Restrictions: Patient may return to work 09/18/24 with no heavy lifting and light duty. Comments: N/A Sincerely, [facility] Normal [facility] Basophils Auto (Bld) [#/Vol] on 08-23-2024 Basophils (Bld) [#/Vol] 0.0 10 3/uL 0.0-0.1 [facility] Basophils/100 WBC Auto (Bld) on 08-23-2024 Basophils/100 WBC (Bld) 0.6 % 0.2-2.0 [facility] Eosinophils/100 WBC Auto (Bl d)on 08-23-2024 Eosinophils/100 WBC (Bld) 3.0 % 0.9-7.0 [facility] Erythrocyte distribution wid th Auto (RBC) [Ratio]on 08-23-2024 Erythrocyte distribution width (RBC) [Ratio] 13.2 % 11.0-15.0 [facility] Estimated glomerular filtrat ion rate (GFR) non- Americanon 08-23-2024 GFR/1.73 sq M.predicted among non-blacks MDRD (S/P/Bld) [Vol rate/Area] mL/min/{1.73_m2} >=60 mL/min/1.7 3m 2 [facility] Hematocrit Auto (Bld) [Volum e fraction]on 08-23-2024 Hematocrit (Bld) [Volume fraction] 39.6 % 36.0-48.0 [facility] Hemoglobin [Mass/volume] in Bloodon 08-23-2024 Hemoglobin (Bld) [Mass/Vol] 12.9 g/dL 12.0-16.0 [facility] Laboratory - Chemistry and C hemistry - challengeon 08-23-2024 Calcium [Mass/Vol] 9.0 mg/dL 8.5-10.1 [facility] Chloride [Moles/Vol] 104 mmol/L 98-107 [facility] CO2 [Moles/Vol] 26.7 mmol/L 21.0-32.0 [facility] Creatinine [Mass/Vol] 0.82 mg/dL 0.55-1.02 [facility] GFR/1.73 sq M.predicted MDRD (S/P/Bld) [Vol rate/Area] mL/min/{1.73_m2} >=60 mL/min/1.7 3m 2 [facility] Glucose [Mass/Vol] 94 mg/dL 74-106 [facility] Potassium [Moles/Vol] 3.9 mmol/L 3.5-5.1 [facility] Sodium [Moles/Vol] 139 mmol/L 136-145 [facility] Urea nitrogen [Mass/Vol] 9.0 mg/dL 7.0-18.0 [facility] Urea nitrogen/Creatinine [Mass ratio] 11.0 mg/mg [facility] Laboratory - Hematology and Cell countson 08-23-2024 Immature granulocytes/100 WBC (Bld) 0.1 % 0.0-0.5 [facility] Leukocytes [#/volume] correc jocelynn for nucleated erythrocytes in Blood by Automated counon 08-23-2024 WBC corrected for nucl RBC Auto (Bld) [#/Vol] 6.7 10 3/uL 4.0-11.0 [facility] Lymphocytes Auto (Bld) [#/Vo l]on 08-23-2024 Lymphocytes (Bld) [#/Vol] 2.4 10 3/uL 1.2-3.8 [facility] Lymphocytes/100 WBC Auto (Bl d)on 08-23-2024 Lymphocytes/100 WBC (Bld) 34.9 % 20.5-60.0 [facility] MCH Auto (RBC) [Entitic mass ]on 08-23-2024 MCH (RBC) [Entitic mass] 26.2 pg Low 26.7-34.0 [facility] MCHC Auto (RBC) [Mass/Vol]on 08-23-2024 MCHC (RBC) [Mass/Vol] 32.6 g/dL 29.9-35.2 [facility] MCV Auto (RBC) [Entitic vol] on 08-23-2024 MCV (RBC) [Entitic vol] 80.5 fL Low 81.0-99.0 [facility] Monocytes Auto (Bld) [#/Vol] on 08-23-2024 Monocytes (Bld) [#/Vol] 0.3 10 3/uL 0.3-0.8 [facility] Monocytes/100 WBC Auto (Bld) on 08-23-2024 Monocytes/100 WBC (Bld) 4.9 % 1.7-12.0 [facility] Neutrophils Auto (Bld) [#/Vo l]on 08-23-2024 Neutrophils (Bld) [#/Vol] 3.8 10 3/uL 1.4-6.5 [facility] Neutrophils/100 WBC Auto (Bl d)on 08-23-2024 Neutrophils/100 WBC (Bld) 56.5 % 43.0-75.0 [facility] No Panel Informationon 08-23 Eosinophils # (Auto) 0.2 10 3/uL 0.0-0.7 [facility] Immature Granulocyte # (Auto) 0.01 10 3/uL 0.00-0.03 [facility] Platelet mean volume Auto (B ld) [Entitic vol]on 08-23-2024 Platelet mean volume (Bld) [Entitic vol] 8.9 fL Low 9.5-13.5 [facility] Platelets Auto (Bld) [#/Vol] on 08-23-2024 Platelets (Bld) [#/Vol] 398 10 3/uL 150-450 [facility] RBC Auto (Bld) [#/Vol]on RBC (Bld) [#/Vol] 4.92 10 6/uL 4.20-5.40 [facility] Serum or plasma anion gap de terminationon 08-23-2024 Anion gap [Moles/Vol] 12.2 mmol/L [facility] Basophils Auto (Bld) [#/Vol] on 08-02-2024 Basophils (Bld) [#/Vol] 0.1 10 3/uL 0.0-0.1 [facility] Basophils/100 WBC Auto (Bld) on 08-02-2024 Basophils/100 WBC (Bld) 0.6 % 0.2-2.0 [facility] Eosinophils/100 WBC Auto (Bl d)on 08-02-2024 Eosinophils/100 WBC (Bld) 1.6 % 0.9-7.0 [facility] Erythrocyte distribution wid th Auto (RBC) [Ratio]on 08-02-2024 Erythrocyte distribution width (RBC) [Ratio] 13.1 % 11.0-15.0 [facility] Hematocrit Auto (Bld) [Volum e fraction]on 08-02-2024 Hematocrit (Bld) [Volume fraction] 43.7 % 36.0-48.0 [facility] Hemoglobin [Mass/volume] in Bloodon 08-02-2024 Hemoglobin (Bld) [Mass/Vol] 14.1 g/dL 12.0-16.0 [facility] Laboratory - Hematology and Cell countson 08-02-2024 Immature granulocytes/100 WBC (Bld) 0.2 % 0.0-0.5 [facility] Leukocytes [#/volume] correc jocelynn for nucleated erythrocytes in Blood by Automated counon 08-02-2024 WBC corrected for nucl RBC Auto (Bld) [#/Vol] 9.0 10 3/uL 4.0-11.0 [facility] Lymphocytes Auto (Bld) [#/Vo l]on 08-02-2024 Lymphocytes (Bld) [#/Vol] 3.0 10 3/uL 1.2-3.8 [facility] Lymphocytes/100 WBC Auto (Bl d)on 08-02-2024 Lymphocytes/100 WBC (Bld) 33.4 % 20.5-60.0 [facility] MCH Auto (RBC) [Entitic mass ]on 08-02-2024 MCH (RBC) [Entitic mass] 26.7 pg 26.7-34.0 [facility] MCHC Auto (RBC) [Mass/Vol]on 08-02-2024 MCHC (RBC) [Mass/Vol] 32.3 g/dL 29.9-35.2 [facility] MCV Auto (RBC) [Entitic vol] on 08-02-2024 MCV (RBC) [Entitic vol] 82.8 fL 81.0-99.0 [facility] Monocytes Auto (Bld) [#/Vol] on 08-02-2024 Monocytes (Bld) [#/Vol] 0.5 10 3/uL 0.3-0.8 [facility] Monocytes/100 WBC Auto (Bld) on 08-02-2024 Monocytes/100 WBC (Bld) 5.4 % 1.7-12.0 [facility] Neutrophils Auto (Bld) [#/Vo l]on 08-02-2024 Neutrophils (Bld) [#/Vol] 5.3 10 3/uL 1.4-6.5 [facility] Neutrophils/100 WBC Auto (Bl d)on 08-02-2024 Neutrophils/100 WBC (Bld) 58.8 % 43.0-75.0 [facility] No Panel Informationon 08-02 Eosinophils # (Auto) 0.1 10 3/uL 0.0-0.7 [facility] Immature Granulocyte # (Auto) 0.02 10 3/uL 0.00-0.03 [facility] Platelet mean volume Auto (B ld) [Entitic vol]on 08-02-2024 Platelet mean volume (Bld) [Entitic vol] 8.9 fL Low 9.5-13.5 [facility] Platelets Auto (Bld) [#/Vol] on 08-02-2024 Platelets (Bld) [#/Vol] 369 10 3/uL 150-450 [facility] RBC Auto (Bld) [#/Vol]on RBC (Bld) [#/Vol] 5.28 10 6/uL 4.20-5.40 [facility] ALL CBC WITH AUTO DIFFon BASOPHILS ABSOLUTE AUTO 0.1 [facility] Basophils/100 WBC (Bld) 0.6 % 0.2 - 2.0 % [facility] Eosinophils/100 WBC (Bld) 1.8 % 0.9 - 7.0 % [facility] Erythrocyte distribution width (RBC) [Ratio] 13.2 % 11.0 - 15.0 % [facility] Hematocrit (Bld) [Volume fraction] 40.5 % 36.0 - 48.0 % [facility] Hemoglobin (Bld) [Mass/Vol] 13.1 g/dL 12.0 - 16.0 g/dL [facility] IMMATURE GRANULOCYTES ABS AUTO 0.02 [facility] Immature granulocytes/100 WBC (Bld) 0.2 % 0.0 - 0.5 % [facility] Interpretation and review of laboratory results Abnormal [facility] LYMPHOCYTES ABSOLUTE AUTO 2.7 [facility] Lymphocytes/100 WBC (Bld) 30.8 % 20.5 - 60.0 % [facility] MCH (RBC) [Entitic mass] 26.6 pg Low 26.7 - 34.0 pg [facility] MCHC (RBC) [Mass/Vol] 32.3 g/dL 29.9 - 35.2 g/dL [facility] MCV (RBC) [Entitic vol] 82.3 fL 81.0 - 99.0 fL [facility] MONOCYTES ABSOLUTE AUTO 0.6 [facility] Monocytes/100 WBC (Bld) 6.6 % 1.7 - 12.0 % [facility] NEUTROPHILS ABSOLUTE AUTO 5.3 [facility] Neutrophils/100 WBC (Bld) 60 % 43.0 - 75.0 % [facility] Platelet mean volume (Bld) [Entitic vol] 9.1 fL Low 9.5 - 13.5 fL [facility] TBH EO # 0.2 [facility] TB PLT [address] [facility] RBC 4.92 [facility] WBC 8.8 [facility] Basophils Auto (Bld) [#/Vol] on 07-23-2024 Basophils (Bld) [#/Vol] 0.1 10 3/uL 0.0-0.1 [facility] Basophils/100 WBC Auto (Bld) on 07-23-2024 Basophils/100 WBC (Bld) 0.6 % 0.2-2.0 [facility] ECG 12-LEADon 07-23-[address] [address] Electrocardiograph Report Signed Patient: KARLENE VAZQUEZ MR#: [id number] : 1990 Acct:[id number] Age/Sex: 34 / F ADM Date: 07/23/24 Loc: PST Attending Dr: Brent Roland D.O. Ordering Physician: Brent Roland D.O. Date of Service: 07/23/24 Procedure(s): ECG 12 lead Accession Number(s): [id number] cc: [facility] Test Date: 2024-07-23 Pat Name: KARLENE VAZQUEZ Department: Room: - Gender: Female Talkback Host: : 1990 Requested By: BRENT ROLAND Order Number: [id number] Reading MD: CHUY SHABAZZ M.D. Measurements Intervals [place] Rate: 71 P: 33 MD: 148 QRS: 42 QRSD: 82 T: 30 QT: 389 QTc: 424 Interpretive Statements SINUS RHYTHM POSSIBLE RIGHT VENTRICULAR CONDUCTION DELAY [RSR (QR) IN V1/V2] Borderline ECG Compared to ECG 05/02/2023 11:46:38 Sinus tachycardia no longer present Right-axis deviation no longer present Electronically Signed On 07-23-2024 11:53:48 EDT by CHUY SHABAZZ M.D. Dictated By: CHUY SHABAZZ Signed By: 07/23/24 1154 DD/ 1129 TD/TT: Bag Printer: [facility] Radiology, Radiologclaudio andrew MD - 07/23/2024 [place] [address] Electrocardiograph Report Signed Patient: KARLENE VAZQUEZ MR#: [id number] : 1990 Acct:[id number] Age/Sex: 34 / F ADM Date: 07/23/24 Loc: PST Attending Dr: Brent Roland D.O. Ordering Physician: Brent Roland D.O. Date of Service: 07/23/24 Procedure(s): ECG 12 lead Accession Number(s): [id number] cc: [facility] Test Date: 2024-07-23 Pat Name: KARLENE VAZQUEZ Department: Room: - Gender: Female Talkback Host: : 1990 Requested By: BRENT ROLAND Order Number: [id number] Reading MD: CHUY SHABAZZ M.D. Measurements Intervals [place] Rate: 71 P: 33 MD: 148 QRS: 42 QRSD: 82 T: 30 QT: 389 QTc: 424 Interpretive Statements SINUS RHYTHM POSSIBLE RIGHT VENTRICULAR CONDUCTION DELAY [RSR (QR) IN V1/V2] Borderline ECG Compared to ECG 05/02/2023 11:46:38 Sinus tachycardia no longer present Right-axis deviation no longer present Electronically Signed On 07-23-2024 11:53:48 EDT by CHUY SHABAZZ M.D. Dictated By: CHUY SHABAZZ Signed By: 07/23/24 1151 DD/ 1129 TD/TT: Bag Printer: [facility] Radiology Study observation (narrative) [facility] ECG 12-LEADOrdered By: Radio logist Radiology on 07-23-2024 [facility] Mobile Captain Work Phone: Eosinophils/100 WBC Auto (Bl d)on 07-23-2024 Eosinophils/100 WBC (Bld) 1.8 % 0.9-7.0 [facility] Erythrocyte distribution wid th Auto (RBC) [Ratio]on 07-23-2024 Erythrocyte distribution width (RBC) [Ratio] 13.2 % 11.0-15.0 [facility] Estimated glomerular filtrat ion rate (GFR) non- Americanon 07-23-2024 GFR/1.73 sq M.predicted among non-blacks MDRD (S/P/Bld) [Vol rate/Area] mL/min/{1.73_m2} >=60 mL/min/1.7 3m 2 [facility] Globulin Calc (S) [Mass/Vol] on 07-23-2024 Globulin (S) [Mass/Vol] 3.6 g/dL [facility] Hematocrit Auto (Bld) [Volum e fraction]on 07-23-2024 Hematocrit (Bld) [Volume fraction] 40.5 % 36.0-48.0 [facility] Hemoglobin [Mass/volume] in Bloodon 07-23-2024 Hemoglobin (Bld) [Mass/Vol] 13.1 g/dL 12.0-16.0 [facility] Laboratory - Chemistry and C hemistry - challengeon 07-23-2024 Albumin [Mass/Vol] 3.5 g/dL 3.4-5.0 [facility] ALP [Catalytic activity/Vol] 70 U/L 46-116 [facility] ALT [Catalytic activity/Vol] 37 U/L 14-59 [facility] AST [Catalytic activity/Vol] 15 U/L 15-37 [facility] Bilirubin [Mass/Vol] 0.3 mg/dL 0.2-1.0 [facility] Calcium [Mass/Vol] 8.6 mg/dL 8.5-10.1 [facility] Chloride [Moles/Vol] 105 mmol/L 98-107 [facility] CO2 [Moles/Vol] 26.9 mmol/L 21.0-32.0 [facility] Creatinine [Mass/Vol] 0.83 mg/dL 0.55-1.02 [facility] GFR/1.73 sq M.predicted MDRD (S/P/Bld) [Vol rate/Area] mL/min/{1.73_m2} >=60 mL/min/1.7 3m 2 [facility] Glucose [Mass/Vol] 88 mg/dL 74-106 [facility] Potassium [Moles/Vol] 4.3 mmol/L 3.5-5.1 [facility] Protein [Mass/Vol] 7.1 g/dL 6.4-8.2 [facility] Sodium [Moles/Vol] 138 mmol/L 136-145 [facility] Urea nitrogen [Mass/Vol] 14.0 mg/dL 7.0-18.0 [facility] Urea nitrogen/Creatinine [Mass ratio] 16.9 mg/mg [facility] Laboratory - Hematology and Cell countson 07-23-2024 Immature granulocytes/100 WBC (Bld) 0.2 % 0.0-0.5 [facility] Leukocytes [#/volume] correc jocelynn for nucleated erythrocytes in Blood by Automated counon 07-23-2024 WBC corrected for nucl RBC Auto (Bld) [#/Vol] 8.8 10 3/uL 4.0-11.0 [facility] Lymphocytes Auto (Bld) [#/Vo l]on 07-23-2024 Lymphocytes (Bld) [#/Vol] 2.7 10 3/uL 1.2-3.8 [facility] Lymphocytes/100 WBC Auto (Bl d)on 07-23-2024 Lymphocytes/100 WBC (Bld) 30.8 % 20.5-60.0 [facility] MCH Auto (RBC) [Entitic mass ]on 07-23-2024 MCH (RBC) [Entitic mass] 26.6 pg Low 26.7-34.0 [facility] MCHC Auto (RBC) [Mass/Vol]on 07-23-2024 MCHC (RBC) [Mass/Vol] 32.3 g/dL 29.9-35.2 [facility] MCV Auto (RBC) [Entitic vol] on 07-23-2024 MCV (RBC) [Entitic vol] 82.3 fL 81.0-99.0 [facility] Monocytes Auto (Bld) [#/Vol] on 07-23-2024 Monocytes (Bld) [#/Vol] 0.6 10 3/uL 0.3-0.8 [facility] Monocytes/100 WBC Auto (Bld) on 07-23-2024 Monocytes/100 WBC (Bld) 6.6 % 1.7-12.0 [facility] Neutrophils Auto (Bld) [#/Vo l]on 07-23-2024 Neutrophils (Bld) [#/Vol] 5.3 10 3/uL 1.4-6.5 [facility] Neutrophils/100 WBC Auto (Bl d)on 07-23-2024 Neutrophils/100 WBC (Bld) 60.0 % 43.0-75.0 [facility] No Panel Informationon 07-23 Eosinophils # (Auto) 0.2 10 3/uL 0.0-0.7 [facility] Immature Granulocyte # (Auto) 0.02 10 3/uL 0.00-0.03 [facility] Platelet mean volume Auto (B ld) [Entitic vol]on 07-23-2024 Platelet mean volume (Bld) [Entitic vol] 9.1 fL Low 9.5-13.5 [facility] Platelets Auto (Bld) [#/Vol] on 07-23-2024 Platelets (Bld) [#/Vol] 380 10 3/uL 150-450 [facility] RBC Auto (Bld) [#/Vol]on RBC (Bld) [#/Vol] 4.92 10 6/uL 4.20-5.40 [facility] Serum or plasma albumin/glob ulin mass ratioon 07-23-2024 Albumin/Globulin [Mass ratio] 1.0 {ratio} [facility] Serum or plasma anion gap de terminationon 07-23-2024 Anion gap [Moles/Vol] 10.4 mmol/L [facility] RECURRENT VAGINITIS (HTRX)on 07-11-2024 ATOPOBIUM VAGINAE 30.718 Abnormal [facility] ATOPOBIUM VAGINAE Detected Abnormal [facility] BVAB 2,3 (BACTERIAL VAGINOSIS ASSOCIATED BACTERIA 2, 3); MOBILUNCUS SPP 0 [facility] BVAB 2,3 (BACTERIAL VAGINOSIS ASSOCIATED BACTERIA 2, 3); MOBILUNCUS SPP Not detected [facility] DARIA ALBICANS, PARAPSILOSIS, TROPICALIS 0 [facility] DARIA ALBICANS, PARAPSILOSIS, TROPICALIS Not detected [facility] DARIA GLABRATA 0 [facility] DARIA GLABRATA Not detected [facility] DARIA KRUSEI 0 [facility] DARIA KRUSEI Not detected [facility] CHLAMYDIA TRACHOMATIS 0 [facility] CHLAMYDIA TRACHOMATIS Not detected N [facility] GARDNERELLA VAGINALIS 0 [facility] GARDNERELLA VAGINALIS Not detected N [facility] Interpretation and review of laboratory results Abnormal [facility] MEGASPHAERA (TYPES 1, 2) 0 [facility] MEGASPHAERA (TYPES 1, 2) Not detected [facility] MYCOPLASMA GENITALIUM 0 [facility] MYCOPLASMA GENITALIUM Not detected N [facility] NEISSERIA GONORRHOEAE 0 [facility] NEISSERIA GONORRHOEAE Not detected N [facility] TRICHOMONAS VAGINALIS 0 [facility] TRICHOMONAS VAGINALIS Not detected N [facility] Urinalysis macro (dipstick) panel (U)on 07-10-2024 Bilirubin, UA Negative Negative - 4(70) +++ mg/dL [facility] Blood, UA Negative Negative - 50 Arnulfo/mcL [facility] Clarity, UA Clear [facility] Color, UA Yellow [facility] Glucose, UA Negative Negative - 1999(110) ++++ mg/dL [facility] Interpretation and review of laboratory results Normal [facility] Ketones, UA Negative Negative - 160(16) ++++ mg/dL [facility] Leukocytes, UA Negative Negative - 500+++ Corrina/mcL [facility] Nitrite, UA Negative Negative - Positive [facility] pH, UA 7 5 - 9 [facility] Protein, UA Negative Negative - 2000(20) ++++ mg/dL [facility] Spec Grav, UA 1.025 1 - 1.03 [facility] Urobilinogen, UA 0.2 0.2 - 12 mg/dL [facility] US PELVIS W/ TRANSVAGINALon 07-03-2024 [place] [address] Ultrasound Report Signed Patient: KARLENE VAZQUEZ MR#: [id number] : 1990 Acct:[id number] Age/Sex: 34 / F ADM Date: 07/03/24 Loc: US Attending Dr: Brent Roland D.O. Ordering Physician: Brent Roland D.O. Date of Service: 07/03/24 Procedure(s): US pelvis w/ transvaginal Accession Number(s): [id number] cc: Surya Hodges M.D.; Brent Roland D.O. [place] [address] Patient Name: KARLENE VAZQUEZ MRN: [id number] date: 1990 Sex: F Assigned Patient Location: US Current Patient Location: US Accession/Order Number: [id number] Exam Date: 07/03/2024 09:28 Report Date: 07/03/2024 [...] Jovan Martin M.D.07/03/2024 9:30 AM Dictation Location: [place] [address] Electronically authenticated by: [id number] Y Date: 07/03/2024 09:30 Dictated By: Jovan Martin D.O. Signed By: 07/03/2433 DD/ 9 TD/TT: Bag Printer: [facility] Radiology, Radiologi MD lorrie - 07/03/2024 [place] [address] Ultrasound Report Signed Patient: KARLENE VAZQUEZ MR#: [id number] : 1990 Acct:[id number] Age/Sex: 34 / F ADM Date: 07/03/24 Loc: US Attending Dr: Brent Roland D.O. Ordering Physician: Brent Roland D.O. Date of Service: 07/03/24 Procedure(s): US pelvis w/ transvaginal Accession Number(s): [id number] cc: Surya Hodges M.D.; Brent Roland D.O. The [address] [address] Patient Name: KARLENE VAZQUEZ MRN: [facility]:[id number] date: 1990 Sex: F Assigned Patient Location: Current Patient Location: US Accession/Order Number: [id number] Exam Date: 07/03/2024 09:28 Report Date: 07/03/2024 [...] Jovan Martin M.D.07/03/2024 9:30 AM Dictation Location: [place] [address] Electronically authenticated by: [id number] Y Date: 07/03/2024 09:30 Dictated By: Jovan Martin D.O. Signed By: 07/03/2433 DD/ 9 TD/TT: Bag Printer: [facility] Radiology Study observation (narrative) [facility] US PELVIS W/ TRANSVAGINALOrd ered By: Radiologist Radiology on 07-03-2024 [facility] Work Phone: Basophils Auto (Bld) [#/Vol] on 09-07-2023 Basophils (Bld) [#/Vol] 0.0 10 3/uL 0.0-0.1 [facility] Basophils/100 WBC Auto (Bld) on 09-07-2023 Basophils/100 WBC (Bld) 0.5 % 0.2-2.0 [facility] Cholesterol in LDL Calc [Mas s/Vol]on 09-07-2023 Cholesterol in LDL [Mass/Vol] 149.0 mg/dL [facility] Comment on above: <100 mg/dl [id number] 0-129 mg/dl NEAR OR ABOVE [id number] mg/dl BORDERLINE [id number] mg/dl HIGH>190 mg/dl VERY HIGH Cholesterol in VLDL Calc [Ma ss/Vol]on 09-07-2023 Cholesterol in VLDL [Mass/Vol] 20.4 mg/dL [facility] Eosinophils/100 WBC Auto (Bl d)on 09-07-2023 Eosinophils/100 WBC (Bld) 1.6 % 0.9-7.0 [facility] Erythrocyte distribution wid th Auto (RBC) [Ratio]on 09-07-2023 Erythrocyte distribution width (RBC) [Ratio] 13.2 % 11.0-15.0 [facility] Estimated glomerular filtrat ion rate (GFR) non- Americanon 09-07-2023 GFR/1.73 sq M.predicted among non-blacks MDRD (S/P/Bld) [Vol rate/Area] mL/min/{1.73_m2} >=60 [facility] Globulin Calc (S) [Mass/Vol] on 09-07-2023 Globulin (S) [Mass/Vol] 3.8 g/dL [facility] Hematocrit Auto (Bld) [Volum e fraction]on 09-07-2023 Hematocrit (Bld) [Volume fraction] 41.8 % 36.0-48.0 [facility] Hemoglobin [Mass/volume] in Bloodon 09-07-2023 Hemoglobin (Bld) [Mass/Vol] 13.3 g/dL 12.0-16.0 [facility] Laboratory - Chemistry and C hemistry - challengeon 09-07-2023 Albumin [Mass/Vol] 3.9 g/dL 3.4-5.0 [facility] ALP [Catalytic activity/Vol] 70 U/L 46-116 [facility] ALT [Catalytic activity/Vol] 20 U/L 14-59 [facility] AST [Catalytic activity/Vol] 12 U/L Low 15-37 [facility] Bilirubin [Mass/Vol] 0.6 mg/dL 0.2-1.0 [facility] Calcium [Mass/Vol] 8.7 mg/dL 8.5-10.1 [facility] Chloride [Moles/Vol] 102 mmol/L 98-107 [facility] Cholesterol [Mass/Vol] 226 mg/dL High <=[facility] Cholesterol in HDL [Mass/Vol] 57 mg/dL 40-60 [facility] Comment on above: > or =60 mg/dl - LOW CARDIOVASCULAR RISK<40 mg/dl - HIGH CARDIOVASCULAR RISK CO2 [Moles/Vol] 27.2 mmol/L 21.0-32.0 [facility] Creatinine [Mass/Vol] 0.86 mg/dL 0.55-1.02 [facility] GFR/1.73 sq M.predicted MDRD (S/P/Bld) [Vol rate/Area] mL/min/{1.73_m2} >=60 [facility] Glucose [Mass/Vol] 89 mg/dL 74-106 [facility] Potassium [Moles/Vol] 4.0 mmol/L 3.5-5.1 [facility] Protein [Mass/Vol] 7.7 g/dL 6.4-8.2 [facility] Sodium [Moles/Vol] 139 mmol/L 136-145 [facility] Triglyceride [Mass/Vol] 102 mg/dL <=150 [facility] Urea nitrogen [Mass/Vol] 9.0 mg/dL 7.0-18.0 [facility] Urea nitrogen/Creatinine [Mass ratio] 10.5 mg/mg [facility] Laboratory - Hematology and Cell countson 09-07-2023 Immature granulocytes/100 WBC (Bld) 0.2 % 0.0-0.5 [facility] Leukocytes [#/volume] correc jocelynn for nucleated erythrocytes in Blood by Automated counon 09-07-2023 WBC corrected for nucl RBC Auto (Bld) [#/Vol] 8.0 10 3/uL 4.0-11.0 [facility] Lymphocytes Auto (Bld) [#/Vo l]on 09-07-2023 Lymphocytes (Bld) [#/Vol] 2.4 10 3/uL 1.2-3.8 [facility] Lymphocytes/100 WBC Auto (Bl d)on 09-07-2023 Lymphocytes/100 WBC (Bld) 29.7 % 20.5-60.0 [facility] MCH Auto (RBC) [Entitic mass ]on 09-07-2023 MCH (RBC) [Entitic mass] 26.3 pg Low 26.7-34.0 [facility] MCHC Auto (RBC) [Mass/Vol]on 09-07-2023 MCHC (RBC) [Mass/Vol] 31.8 g/dL 29.9-35.2 [facility] MCV Auto (RBC) [Entitic vol] on 09-07-2023 MCV (RBC) [Entitic vol] 82.6 fL 81.0-99.0 [facility] Monocytes Auto (Bld) [#/Vol] on 09-07-2023 Monocytes (Bld) [#/Vol] 0.4 10 3/uL 0.3-0.8 [facility] Monocytes/100 WBC Auto (Bld) on 09-07-2023 Monocytes/100 WBC (Bld) 5.5 % 1.7-12.0 [facility] Neutrophils Auto (Bld) [#/Vo l]on 09-07-2023 Neutrophils (Bld) [#/Vol] 5.0 10 3/uL 1.4-6.5 [facility] Neutrophils/100 WBC Auto (Bl d)on 09-07-2023 Neutrophils/100 WBC (Bld) 62.5 % 43.0-75.0 [facility] No Panel Informationon 09-06 Eosinophils # (Auto) 0.1 10 3/uL 0.0-0.7 [facility] Immature Granulocyte # (Auto) 0.02 10 3/uL 0.00-0.03 [facility] Platelet mean volume Auto (B ld) [Entitic vol]on 09-07-2023 Platelet mean volume (Bld) [Entitic vol] 9.4 fL Low 9.5-13.5 [facility] Platelets Auto (Bld) [#/Vol] on 09-07-2023 Platelets (Bld) [#/Vol] 381 10 3/uL 150-450 [facility] RBC Auto (Bld) [#/Vol]on RBC (Bld) [#/Vol] 5.06 10 6/uL 4.20-5.40 [facility] Serum or plasma albumin/glob ulin mass ratioon 09-07-2023 Albumin/Globulin [Mass ratio] 1.0 {ratio} [facility] Serum or plasma anion gap de terminationon 09-07-2023 Anion gap [Moles/Vol] 13.8 mmol/L [facility] Serum or plasma total choles terol/high density lipoprotein (HDL) cholesterol mass linwood 09-07-2023 Cholesterol.total/Chol esterol in HDL [Mass ratio] 4.0 {ratio} [facility] Comment on above: 3.3 - 4.4 [...] challengeon 05-02-2023 Calcium [Mass/Vol] 8.7 mg/dL 8.5-10.1 [facility] Chloride [Moles/Vol] 101 mmol/L 98-107 [facility] CO2 [Moles/Vol] 24.8 mmol/L 21.0-32.0 [facility] Creatinine [Mass/Vol] 0.89 mg/dL 0.55-1.02 [facility] GFR/1.73 sq M.predicted MDRD (S/P/Bld) [Vol rate/Area] mL/min/{1.73_m2} >=60 [facility] Glucose [Mass/Vol] 112 mg/dL 74-106 [facility] Potassium [Moles/Vol] 4.0 mmol/L 3.5-5.1 [facility] Sodium [Moles/Vol] 137 mmol/L 136-145 [facility] Urea nitrogen [Mass/Vol] 5.0 mg/dL 7.0-18.0 [facility] [...] 05-02-2023 MCHC (RBC) [Mass/Vol] 32.7 g/dL 29.9-35.2 [facility] MCV Auto (RBC) [Entitic vol] [...] Eosinophils # (Auto) 0.0 10 3/uL 0.0-0.7 [facility] Immature Granulocyte # (Auto) 0.04 [...] RBC (Bld) [#/Vol] 4.88 10 6/uL 4.20-5.40 [facility] Serum or plasma anion gap de terminationon 05-02-2023 Anion gap [Moles/Vol] 15.2 mmol/L [facility] Cytology Cervical or vaginal smear or scraping studyOrdered By: Kenyatta Salazar on 12-28-2022 [facility] Cholesterol [Mass/volume] in Serum or PlasmaOrdered By: Baljinder Polanco on 12-01-2022 Cholesterol [Mass/Vol] 214 mg/dL 140-200 [facility] Comment on above: Chol less than [...] [Mass/Vol] 27 mg/dL [facility] Glucose mean value [...] Coag (PPP) [Time] 32.4 s 25.1-36.5 [facility] Comment on above: A hematocrit value g reater than 55% may lead to inaccurate results in coagulation testing. Patients having hematocrit values >55% require a special collection tube for coagulation studies. Please contact the laboratory at [phone] for redraw instructions. Alanine aminotransferase [En zymatic activity/volume] in Serum or PlasmaOrdered By: Marcio Steven on 11-30-2022 ALT [Catalytic activity/Vol] 16 U/L 7-52 [facility] Albumin [Mass/volume] in Ser um or Plasma by Bromocresol green (BCG) dye binding methoOrdered By: Marcio Steven on 11-30-2022 Albumin BCG dye [Mass/Vol] 4.4 g/dL 3.5-5.7 [facility] Alkaline phosphatase [Enzyma tic activity/volume] in Serum or PlasmaOrdered By: Marcio Steven on 11-30-2022 ALP [Catalytic activity/Vol] 73 U/L 34-104 [facility] Aspartate aminotransferase [ Enzymatic activity/volume] in Serum or PlasmaOrdered By: Marcio Steven on 11-30-2022 AST [Catalytic activity/Vol] 11 U/L 13-39 [facility] Basic Metabolic Panelon 11-12 Calcium [Mass/Vol] 9.9459366 mg/dL Normal 8.6-10 .3 mg/dL [facility] [employer] Other CO2 [Moles/Vol] 23.12651638 mmol/L Normal 21.0-3 1.0 mmol/L [facility] [employer] Other Creatinine [Mass/Vol] 0.64643377 mg/dL Normal 0. 60-1.20 mg/dL [facility] [employer] Other GFR/1.73 sq M.predicted MDRD (S/P/Bld) [Vol rate/Area] mL/min/{1.73_m2} [employer] Other Potassium [Moles/Vol] 4.34171012 mmol/L Normal 3 .5-5.1 mmol/L [employer] Other Basic Metabolic PanelOrdered By: Marcio Steven on 11-30-2022 Chloride [Moles/Vol] 104 mmol/L 98-107 [facility] Glucose [Mass/Vol] 77 mg/dL 70-100 [facility] Comment on above: ADA recommended refe rence rangeRandom Glucose Reference Range is dependent on time and content of last meal. Glucose of more than 200 mg/dL in a nonstressed, ambulatory subject supports the diagnosis of Diabetes Mellitus. Sodium [Moles/Vol] 138 mmol/L 136-145 [facility] Urea nitrogen [Mass/Vol] 9 mg/dL 7-25 [facility] Basophils Auto (Bld) [#/Vol] Ordered By: Marcio Steven on 11-30-2022 Basophils (Bld) [#/Vol] 0.1 10*3/uL 0.0-0.2 [facility] Basophils/100 WBC Auto (Bld) Ordered By: Marcio Steven on 11-30-2022 Basophils/100 WBC (Bld) 0.8 % . [facility] Bilirubin Test strip Ql (U)O rdered By: Marcio Steven on 11-30-2022 Bilirubin Ql (U) Negative Negative [facility] Bilirubin.direct [Mass/volum e] in Serum or PlasmaOrdered By: Marcio Steven on 11-30-2022 Bilirubin.direct [Mass/Vol] 0.00 mg/dL 0.03-0.18 [facility] Comment on above: If the DBIL is less than 0.1, IBIL is not able to becalculated. Bilirubin.total [Mass/volume ] in Serum or PlasmaOrdered By: Marcio Steven on 11-30-2022 Bilirubin [Mass/Vol] 0.9 mg/dL 0.3-1.0 [facility] COVID-19 Detected/Not Detect edOrdered By: Marcio Steven on 11-30-2022 SARS-CoV-2 (COVID-19) RNA LEO+non-probe Ql (Nph) Not detected Not Detecte [facility] Comment on above: This is a duplicate RP2.1 COVID (PCR) result to be used for statistical tracking purpose only. Calcium [Mass/volume] in Ser um or PlasmaOrdered By: Marcio Steven on 11-30-2022 Calcium [Mass/Vol] 9.5 mg/dL 8.6-10.3 [facility] Carbon dioxide, total [Moles /volume] in Serum or PlasmaOrdered By: Marcio Steven on 11-30-2022 CO2 [Moles/Vol] 23.9 mmol/L 21.0-31.0 [facility] Color Auto (U)Ordered By: Baljeet Steven on 11-30-2022 Color (U) Yellow Yellow [facility] Complete Blood Count Auto Di ffon 11-30-2022 Basophils (Bld) [#/Vol] 0.485983683 10*3/uL Normal 0.0-0.2 10*3/uL [employer] Other Basophils/100 WBC (Bld) 0.800 % . % [employer] Other Eosinophils (Bld) [#/Vol] 0.273435706 10*3/uL Normal 0.0-0.45 10*3/uL [employer] Other Eosinophils/100 WBC (Bld) 0.900 % . % [employer] Other Erythrocyte distribution width (RBC) [Ratio] 14.300 % Normal 11.9-15.3 % [employer] Other Hematocrit (Bld) [Volume fraction] 41.000 % Normal 34.0-46.4 % [employer] Other Hemoglobin (Bld) [Mass/Vol] 13.589647 g/dL Normal 11.8-15.4 g/dL [employer] Other Lymphocytes (Bld) [#/Vol] 2.091283355 10*3/uL Normal 1.00-4.8 10*3/uL [employer] Other Lymphocytes/100 WBC (Bld) 32.300 % . % [employer] Other MCH (RBC) [Entitic mass] 27.0000 pg Normal 24.7-34.3 pg [employer] Other MCV (RBC) [Entitic vol] 81.0000 fL Normal 80-100 fL [employer] Other Monocytes (Bld) [#/Vol] 0.795346658 10*3/uL Normal 0.0-0.8 10*3/uL [employer] Other Monocytes/100 WBC (Bld) 6.800 % . % [employer] Other Neutrophils (Bld) [#/Vol] 4.799657460 10*3/uL Normal 1.8-7.7 10*3/uL [employer] Other Neutrophils/100 WBC (Bld) 59.200 % . % [employer] Other Platelet mean volume (Bld) [Entitic vol] 7.2000 fL Normal 6.3-10.7 fL [employer] Other WBC (Bld) [#/Vol] 8.172850185 10*3/uL Normal 3.8 -11.6 10*3/uL [employer] Other Complete Blood Count Auto Diff 8.2 10*3/uL Normal 3.8-11.6 10*3/uL [employer] Other Complete Blood Count Auto Diff 33.3 g/dL Normal 32.0-35.0 g/dL [employer] Other Complete Blood Count Auto Diff 0.2 /100{WBC} Normal 0-0.5 /100{WBC} [facility] [employer] Other Complete Blood Count Auto Di ffOrdered By: Marcio Steven on 11-30-2022 Platelets (Bld) [#/Vol] 368 10*3/uL 150-450 [facility] RBC (Bld) [#/Vol] 5.06 10*6/uL 3.60-5.00 [facility] Creatine kinase [Enzymatic a ctivity/volume] in Serum or PlasmaOrdered By: Marcio Steven on 11-30-2022 CK [Catalytic activity/Vol] 18 U/L 30-223 [facility] Creatinine [Mass/volume] in Serum or PlasmaOrdered By: Marcio Steven on 11-30-2022 Creatinine [Mass/Vol] 0.83 mg/dL 0.60-1.20 [facility] Eosinophils Auto (Bld) [#/Vo l]Ordered By: Marcio Steven on 11-30-2022 Eosinophils (Bld) [#/Vol] 0.1 10*3/uL 0.0-0.45 [facility] Eosinophils/100 WBC Auto (Bl d)Ordered By: Marcio Steven on 11-30-2022 Eosinophils/100 WBC (Bld) 0.9 % . [facility] Erythrocyte distribution wid th Auto (RBC) [Ratio]Ordered By: Marcio Steven on 11-30-2022 Erythrocyte distribution width (RBC) [Ratio] 14.3 % 11.9-15.3 [facility] Fibrin D-dimer [Presence] in Platelet poor [...] coagulation studies. Please contact the laboratory at [phone] for redraw instructions. Free T4 (Free Thyroxine)on 0 11-30-2022 Free T4 [Mass/Vol] 1.77734837 ng/dL High 0.61- 1.12 ng/dL [facility] Other Globulin Calc (S) [Mass/Vol] Ordered By: Marcio Steven on 11-30-2022 Globulin (S) [Mass/Vol] 3.2 g/dL [facility] Glucose Glucometer (BldC) [M ass/Vol]Ordered By: Baljinder Polanco on 11-30-2022 Glucose [Mass/Vol] 100 mg/dL [facility] Comment on above: Random Glucose Refer ence Range is dependent on time and content of last meal. Glucose of more than 200 mg/dL in a nonstressed, ambulatory subject supports the diagnosis of Diabetes Mellitus. Hematocrit Auto (Bld) [Volum e fraction]Ordered By: Marcio Steven on 11-30-2022 Hematocrit (Bld) [Volume fraction] 41.0 % 34.0-46.4 [facility] Hemoglobin [Mass/volume] in BloodOrdered By: Marcio Steven on 11-30-2022 Hemoglobin (Bld) [Mass/Vol] 13.7 g/dL 11.8-15.4 [facility] INR in Platelet poor plasma by [...] 11-30-2022 Ketones (U) [Mass/Vol] Trace Negative [facility] Leukocytes [#/volume] correc jocelynn for nucleated erythrocytes in Blood by Automated counOrdered By: Marcio Steven on 11-30-2022 WBC corrected for nucl RBC Auto (Bld) [#/Vol] 8.2 10*3/uL 3.8-11.6 [facility] Lymphocytes Auto (Bld) [#/Vo l]Ordered By: Marcio Steven on 11-30-2022 Lymphocytes (Bld) [#/Vol] 2.7 10*3/uL 1.00-4.8 [facility] Lymphocytes/100 WBC Auto (Bl d)Ordered By: Marcio Steven on 11-30-2022 Lymphocytes/100 WBC (Bld) 32.3 % . [facility] MCH Auto (RBC) [Entitic mass ]Ordered By: Marcio Steven on 11-30-2022 MCH (RBC) [Entitic mass] 27.0 pg 24.7-34.3 [facility] MCHC Auto (RBC) [Mass/Vol]Or dered By: Marcio Steven on 11-30-2022 MCHC (RBC) [Mass/Vol] 33.3 g/dL 32.0-35.0 [facility] MCV Auto (RBC) [Entitic vol] Ordered By: Macrio Steven on 11-30-2022 MCV (RBC) [Entitic vol] 81.0 fL 80-100 [facility] Magnesium [Mass/volume] in S abdifatah or PlasmaOrdered By: Marcio Steven on 11-30-2022 Magnesium [Mass/Vol] 1.9 mg/dL 1.9-2.7 [facility] Monocyte distribution width [Entitic volume] in Blood by AutomatedOrdered By: Marcio Steven on 11-30-2022 Monocyte distribution width Auto (Bld) [Entitic vol] 19.22 % 0.00-20.00 [facility] Monocytes Auto (Bld) [#/Vol] Ordered By: Marcoi Steven on 11-30-2022 Monocytes (Bld) [#/Vol] 0.6 10*3/uL 0.0-0.8 [facility] Monocytes/100 WBC Auto (Bld) Ordered By: Marcio Steven on 11-30-2022 Monocytes/100 WBC (Bld) 6.8 % . [facility] Natriuretic peptide B [Mass/ Vol]Ordered By: Marcio Steven on 11-30-2022 Natriuretic peptide B (Bld) [Mass/Vol] 13.0 pg/mL 5-100 [facility] Neutrophils Auto (Bld) [#/Vo l]Ordered By: Marcio Steven on 11-30-2022 Neutrophils (Bld) [#/Vol] 4.9 10*3/uL 1.8-7.7 [facility] Neutrophils/100 WBC Auto (Bl d)Ordered By: Marcio Steven on 11-30-2022 Neutrophils/100 WBC (Bld) 59.2 % . [facility] Nitrite Test strip Ql (U)Ord ered [...] 0.2 /100{WBC} 0-0.5 [facility] Platelet mean volume Auto (B ld) [Entitic vol]Ordered By: Marcio Steven on 11-30-2022 Platelet mean volume (Bld) [Entitic vol] 7.2 fL 6.3-10.7 [facility] Potassium [Moles/volume] in Serum or PlasmaOrdered By: Marcio Steven on 11-30-2022 Potassium [Moles/Vol] 4.1 mmol/L 3.5-5.1 [facility] Protein Auto test strip (U) [Mass/Vol]Ordered By: Marcio Steven on 11-30-2022 Protein (U) [Mass/Vol] Negative Negative [facility] Protein [Mass/volume] in Ser um or PlasmaOrdered By: Marcio Steven on 11-30-2022 Protein [Mass/Vol] 7.6 g/dL 6.4-8.9 [facility] Prothrombin time (PT)Ordered By: Marcio Steven on 11-30-2022 PT Coag (PPP) [Time] 12.5 s 9.0-12.9 [facility] Comment on above: A hematocrit value g reater than 55% may lead to inaccurate results in coagulation testing. Patients having hematocrit values >55% require a special collection tube for coagulation studies. Please contact the laboratory at [phone] for redraw instructions. Respiratory pathogens DNA an d RNA panel - Nasopharynx by LEO with non-probe detectionOrdered By: Marcio Steven on 11-30-2022 Respiratory pathogens DNA and RNA panel LEO+non-probe (Nph) [facility] Serum or plasma albumin/glob ulin mass ratioOrdered By: Marcio Steven on 11-30-2022 Albumin/Globulin [Mass ratio] 1.4 {ratio} [facility] Serum or plasma anion gap de terminationOrdered By: Marcio Steven on 11-30-2022 Anion gap [Moles/Vol] 14.2 mmol/L 6.0-15.0 [facility] Serum or plasma non-glucuron idated bilirubin measurement (mass/volume)Ordered By: Marcio Steven on 11-30-2022 Bilirubin.indirect [Mass/Vol] 0.9 mg/dL [facility] Specific gravity Auto test s trip (U) [Rel density]Ordered By: Marcio Steven on 11-30-2022 Specific gravity (U) [Rel density] 1.013 1.001-1.03 0 [facility] Thyroid Stimulating Hormoneo n 11-30-2022 TSH Qn 0.05740130188 m[IU]/L Low 0.45-5 .33 u[iU]/mL [facility] Other Thyrotropin [Units/volume] i n Serum or PlasmaOrdered By: Marcio Steven on 11-30-2022 TSH Qn 0.03 m[IU]/L 0.45-5.33 [facility] Thyroxine (T4) free [Mass/vo lume] in Serum or PlasmaOrdered By: Marcio Steven on 11-30-2022 Free T4 [Mass/Vol] 1.56 ng/dL 0.61-1.12 [facility] Triiodothyronine (T3) Free [ Mass/volume] in Serum or PlasmaOrdered By: Marcio Steven on 11-30-2022 Free T3 [Mass/Vol] 3.89 pg/mL 2.50-3.90 [facility] Urine clarity by refractomet ry automatedOrdered By: [...] Normal mg/dL Normal [facility] WBC Auto (Bld) [#/Vol]Ordere d By: Marcio Steven on 11-30-2022 WBC (Bld) [#/Vol] 8.2 10*3/uL 3.8-11.6 [facility] pH Auto test strip (U)Ordere d By: Marcio Steven on 11-30-2022 pH (U) [pH] 5.0-9.0 [facility] CORTISOL FREE, SERUMon 06-17 Cortisol, Free Dialysis, LCMS 0.649 ug/dL Normal [facility] Comment on above: Result Comment: Thes e tests were developed and their performance characteristics determined by [facility]. They have not been cleared or approved by the Food and Drug Administration. Reference Range: 8 AM 0.10 - 1.20 4 PM 0.042 - 0.872 Performed By: #### R [id number] #### [facility] [address] [place] [address] Dr. Dimple Parsons CBC AUTO DIFFon 06-16-2022 BASO # 0.1 103/ul Normal 0.0-0.1 [facility] Comment on above: Performed By: #### R [id number] #### [facility] [address] [place] [address] Dr. Dimple Parsons Basophils/100 WBC (Bld) 0.6 % Normal 0.2-2.0 [facility] Comment on above: Performed By: #### R [id number] #### [facility] [address] [place] [address] Dr. Dimple Parsons EO # 0.4 103/ul Normal 0.0-0.7 [facility] Comment on above: Performed By: #### R [id number] #### [facility] [address] [place] [address] Dr. Dimple Parsons Eosinophils/100 WBC (Bld) 4.0 % Normal 0.9-7.0 [facility] Comment on above: Performed By: #### R [id number] #### [facility] [address] [place] [address] Dr. Dimple Parsons Erythrocyte distribution width (RBC) [Ratio] 13.8 % Normal 11.0-15.0 [facility] Comment on above: Performed By: #### R [id number] #### [facility] [address] [place] [address] Dr. Dimple Parsons Hematocrit (Bld) [Volume fraction] 39.8 % Normal 36.0-48.0 [facility] Comment on above: Performed By: #### R [id number] #### [facility] [address] [place] [address] Dr. Dimple Parsons Hemoglobin (Bld) [Mass/Vol] 12.9 g/dL Normal 12.0-16.0 [facility] Comment on above: Performed By: #### R [id number] #### [facility] [address] [place] [address] Dr. Dimple Parsons IG # 0.02 10e3/ul Normal 0.00-0.03 [facility] Comment on above: Performed By: #### R [id number] #### [facility] [address] [place] [address] Dr. Dimple Parsons IG % 0.2 % Normal 0.0-0.5 [facility] Comment on above: Performed By: #### R [id number] #### [facility] [address] [place] [address] Dr. Dimple Parsons LYMPH # 3.1 103/ul Normal 1.2-3.8 [facility] Comment on above: Performed By: #### R [id number] #### [facility] [address] [place] [address] Dr. Dimple Parsons Lymphocytes/100 WBC (Bld) 33.5 % Normal 20.5-60.0 [facility] Comment on above: Performed By: #### R [id number] #### [facility] [address] [place] [address] Dr. Dimple Parsons MANUAL DIFF REQ NO Normal [facility] Comment on above: Performed By: #### R [id number] #### [facility] [address] [place] [address] Dr. Dimple Parsons MCH (RBC) [Entitic mass] 26.1 pg Critically low 26.7-34.0 [facility] Comment on above: Performed By: #### R [id number] #### [facility] [address] [place] [address] Dr. Dimple Parsons MCHC (RBC) [Mass/Vol] 32.4 g/dL Normal 29.9-35.2 [facility] Comment on above: Performed By: #### R [id number] #### [facility] [address] [place] [address] Dr. Dimple Parsons MCV (RBC) [Entitic vol] 80.4 fL Critically low 81.0-99.0 [facility] Comment on above: Performed By: #### R [id number] #### [facility] [address] [place] [address] Dr. Dimple Parsons MONO # 0.5 103/ul Normal 0.3-0.8 [facility] Comment on above: Performed By: #### R [id number] #### [facility] [address] [place] [address] Dr. Dimple Parsons Monocytes/100 WBC (Bld) 5.2 % Normal 1.7-12.0 [facility] Comment on above: Performed By: #### R [id number] #### [facility] [address] [place] [address] Dr. Dimple Parsons NEUT # 5.2 103/ul Normal 1.4-6.5 [facility] Comment on above: Performed By: #### R [id number] #### [facility] [address] [place] [address] Dr. Dimple Parsons Neutrophils/100 WBC (Bld) 56.5 % Normal 43.0-75.0 [facility] Comment on above: Performed By: #### R [id number] #### [facility] [address] [place] [address] Dr. Dimple Parsons Platelet mean volume (Bld) [Entitic vol] 8.7 fL Critically low 9.5-13.5 [facility] Comment on above: Performed By: #### R [id number] #### [facility] [address] [place] [address] Dr. Dimple Parsons PLT 376 103/ul Normal 150-450 [facility] Comment on above: Performed By: #### R [id number] #### [facility] [address] [place] [address] Dr. Dimple Parsons RBC 4.95 106/ul Normal 4.20-5.40 [facility] Comment on above: Performed By: #### R [id number] #### [facility] [address] [place] [address] Dr. Dimple Parsons WBC 9.3 103/ul Normal 4.0-11.0 [facility] Comment on above: Performed By: #### R [id number] #### [facility] [address] [place] [address] Dr. Dimple Parsons TESTOSTERONE, FREE,DIRECT, T Louis 06-10-2022 Free Testosterone(Direct) 1.6 pg/mL Normal 0.0-4.2 [facility] Comment on above: Result Comment: Perf ormed at: BN Performed By: #### C BC #### [facility] [address] [place] [address] Dr. Dimple Parsons Testosterone [Mass/Vol] 22 ng/dL Normal 8-60 [facility] Comment on above: Result Comment: Perf ormed at: CB Performed By: #### C BC #### [facility] [address] [place] [address] Dr. Dimple Parsons ESTROGENon 2022 Estrogens, Total 413 pg/mL Normal [facility] Comment on above: Result Comment: Prep ubertal < 40 Female Cycle: 1-10 Days 16 - 328 11-20 Days 34 - 501 21-30 Days 48 - 350 Post-Menopausal 40 - 244 Performed By: #### D HEWILLAM #### [facility] [address] [place] [address] Dr. Dimple Parsons SEROTONINon 2022 Serotonin, Serum 20 ng/mL Critically low 31-207 [facility] Comment on above: Performed By: #### S EROTON #### [facility] [address] [place] [address] Dr. Dimple Parsons REVERSE T3on 06-08-2022 Reverse T3, Serum 15.6 ng/dL Normal 9.2-24.1 [facility] Comment on above: Result Comment: This test was developed and its performance characteristics determined by [facility]. It has not been cleared or approved by the Food and Drug Administration. Performed By: #### R [id number] #### [facility] [address] [place] [address] Dr. Dimple Parsons VIT D 1 25 DIHYDROXYon 06-07 Calcitriol(1,25 di-OH Vit D) 12.2 pg/mL Critically low 24.8-81.5 [facility] Comment on above: Performed By: #### V [id number] #### [facility] [address] [place] [address] Dr. Dimple Parsons C-PEPTIDE, SERUMon 3 C-Peptide, Serum 3.3 ng/mL Normal 1.1-4.4 [facility] Comment on above: Result Comment: C-Pe ptide reference interval is for fasting patients. Performed By: #### R [id number] #### [facility] [address] [address] [address] Dimple Parsons DHEA-SULFATEon 06-05-2022 DHEA-Sulfate 154.0 ug/dL Normal 84.8-378.0 [facility] Comment on above: Performed By: #### Inder CADENA #### [facility] [address] [address] [address] Dimple Parsons ESTRADIOLon 06-05-2022 Estradiol 117.0 pg/mL Normal [facility] Comment on above: Result Comment: Adul t Female: Follicular phase 12.5 - 166.0 Ovulation phase 85.8 - 498.0 Luteal phase 43.8 - 211.0 Postmenopausal <6.0 - 54.7 1st trimester 215.0 - >4300.0 Kye ECLIA methodology Performed By: #### Rob [id number] #### [facility] [address] [place] [address] Dr. Dimple Parsons INSULINon 06-05-2022 Insulin 13.1 uIU/mL Normal 2.6-24.9 [facility] Comment on above: Performed By: #### C BC #### [facility] [address] [address] [address] Dimple Parosns PROGESTERONEon 06-05-2022 Progesterone 4.8 ng/mL Normal [facility] Comment on above: Result Comment: Foll icular phase 0.1 - 0.9 Luteal phase 1.8 - 23.9 Ovulation phase 0.1 - 12.0 First trimester 11.0 - 44.3 Second trimester 25.4 - 83.3 Third trimester 58.7 - 214.0 Postmenopausal 0.0 - 0.1 Performed By: #### Inder CADENA #### [facility] [address] [place] [address] Dr. Dimple Parsons SEX HORMONE-BINDING GLOBULIN on 06-05-2022 Sex Horm Binding Glob, Serum 40.7 nmol/L Normal 24.6-122.0 [facility] Comment on above: Performed By: #### C BC #### [facility] [address] [place] [address] Dr. Dimple Parsons T3, TOTAL (TRIIODOTHYRONINE) on 06-05-2022 T3, TOTAL 89 ng/dL Normal 71-180 [facility] Comment on above: Performed By: #### Rob PABONRT3 #### [facility] [address] [address] [address] Dimple Parsons THYROID PEROXIDASE ABon 05-13 Thyroid Peroxidase (TPO) Ab 12 IU/mL Normal 0-34 [facility] Comment on above: Performed By: #### Inder CADENA #### [facility] [address] [address] [address] Dimple Parsons FERRITINon 06-04-2022 Ferritin [Mass/Vol] 193.0 ng/mL Critically high 6.2-137.0 [facility] Comment on above: Performed By: #### Inder CADENA #### [facility] [address] [place] [address] Dr. Dimple Parsons FREE T3on 06-04-2022 FREE T3 2.24 pg/mlL Normal 2.18-3.98 [facility] Comment on above: Performed By: #### Rob [email or web address] #### [facility] [address] [address] [address] Dimple Parsons FREE T4on 06-04-2022 Free T4 [Mass/Vol] 1.14 ng/dL Normal 0.76-1.46 [facility] Comment on above: Performed By: #### Inder CADENA #### [facility] [address] [address] [address] Dimple Parsons GLUCOSE BLOODon 06-04-2022 Glucose [Mass/Vol] 92 mg/dL Normal 74-106 [facility] Comment on above: Performed By: #### Rob [email or web address] #### [facility] [address] [address] [address] Dimple Parsons GLYCOHEMOGLOBIN A1Con 2022 ADA RECOMMENDATION SEE BELOW Normal [facility] Comment on above: Result Comment: ADA RECOMMENDED LIMIT 4.0 - 6.0 ADA THERAPEUTIC TARGET < 7.0 ACTION SUGGESTED > 7.0 Performed By: #### A 1C #### [facility] [address] [place] [address] Dr. Dimple Parsons Glucose [Mass/Vol] 100 mg/dL Normal [facility] Comment on above: Performed By: #### A 1C #### [facility] [address] [place] [address] Dr. Dimple Parsons HbA1c (Bld) [Mass fraction] 5.1 % Normal 4.5-6.2 [facility] Comment on above: Performed By: #### A 1C #### [facility] [address] [place] [address] Dr. Dimple Parsons T4on 06-04-2022 T4 [Mass/Vol] 8.60 ug/dL Normal 4.80-13.90 [facility] Comment on above: Performed By: #### R [id number] #### [facility] [address] [place] [address] Dr. Dimple Parsons TSHon 06-04-2022 TSH 0.442 uIU/mL Normal 0.358-3.74 0 [facility] Comment on above: Performed By: #### R [id number] #### [facility] [address] [place] [address] Dr. Dimple Parsons US PELVIS AND TRANSVAGon [...] KAYLA ACOSTA Date: 2022-05-25 13:36 Normal [facility] XR KUB 1 VIEWon 05-21-2022 XR [...] DAVID ALDANA Date: 2022-05-21 06:53 Normal [facility] CBC AUTO DIFFon 05-08-2022 BASO # 0.0 103/ul Normal 0.0-0.1 [facility] Comment on above: Performed By: #### C BC #### [facility] [address] [place] [address] Dr. Dimple Parsons Basophils/100 WBC (Bld) 0.3 % Normal 0.2-2.0 [facility] Comment on above: Performed By: #### C BC #### [facility] [address] [address] [address] Dimple Parsons EO # 0.2 103/ul Normal 0.0-0.7 [facility] Comment on above: Performed By: #### C BC #### [facility] [address] [address] [address] Dimple Parsons Eosinophils/100 WBC (Bld) 1.3 % Normal 0.9-7.0 [facility] Comment on above: Performed By: #### C BC #### [facility] [address] [address] [address] Dimple Parsons Erythrocyte distribution width (RBC) [Ratio] 13.9 % Normal 11.0-15.0 [facility] Comment on above: Performed By: #### C BC #### [facility] [address] [place] [address] Dr. Dimple Parsons Hematocrit (Bld) [Volume fraction] 38.8 % Normal 36.0-48.0 [facility] Comment on above: Performed By: #### C BC #### [facility] [address] [address] [address] Dimple Parsons Hemoglobin (Bld) [Mass/Vol] 12.8 g/dL Normal 12.0-16.0 [facility] Comment on above: Performed By: #### C BC #### [facility] [address] [address] [address] Dimple Parsons IG # 0.15 10e3/ul Critically high 0.00-0.03 [facility] Comment on above: Performed By: #### C BC #### [facility] [address] [address] [address] Dimple Parsons IG % 1.3 % Critically high 0.0-0.5 [facility] Comment on above: Performed By: #### C BC #### [facility] [address] [address] [address] Dimple Parsons LYMPH # 3.4 103/ul Normal 1.2-3.8 [facility] Comment on above: Performed By: #### C BC #### [facility] [address] [place] [address] Dr. Dimple Parsons Lymphocytes/100 WBC (Bld) 28.9 % Normal 20.5-60.0 [facility] Comment on above: Performed By: #### C BC #### [facility] [address] [place] [address] Dr. Dimple Parsons MANUAL DIFF REQ NO Normal [facility] Comment on above: Performed By: #### C BC #### [facility] [address] [address] [address] Dimple Parsons MCH (RBC) [Entitic mass] 25.9 pg Critically low 26.7-34.0 [facility] Comment on above: Performed By: #### C BC #### [facility] [address] [address] [address] Dimple Parsons MCHC (RBC) [Mass/Vol] 33.0 g/dL Normal 29.9-35.2 [facility] Comment on above: Performed By: #### C BC #### [facility] [address] [address] [address] Dimple Parsons MCV (RBC) [Entitic vol] 78.5 fL Critically low 81.0-99.0 [facility] Comment on above: Performed By: #### C BC #### [facility] [address] [address] [address] Dimple Parsons MONO # 0.7 103/ul Normal 0.3-0.8 [facility] Comment on above: Performed By: #### C BC #### [facility] [address] [address] [address] Dimple Parsons Monocytes/100 WBC (Bld) 6.2 % Normal 1.7-12.0 [facility] Comment on above: Performed By: #### C BC #### [facility] [address] [place] [address] Dr. Dimple Parsons NEUT # 7.3 103/ul Critically high 1.4-6.5 [facility] Comment on above: Performed By: #### C BC #### [facility] [address] [place] [address] Dr. Dimple Parsons Neutrophils/100 WBC (Bld) 62.0 % Normal 43.0-75.0 [facility] Comment on above: Performed By: #### C BC #### [facility] [address] [place] [address] Dr. Dimple Parosns Platelet mean volume (Bld) [Entitic vol] 9.1 fL Critically low 9.5-13.5 [facility] Comment on above: Performed By: #### C BC #### [facility] [address] [place] [address] Dr. Dimple Parsons PLT 426 103/ul Normal 150-450 [facility] Comment on above: Performed By: #### C BC #### [facility] [address] [address] [address] Dimple Parsons RBC 4.94 106/ul Normal 4.20-5.40 [facility] Comment on above: Performed By: #### C BC #### [facility] [address] [place], [place] [address] Dr. Dimple Parsons WBC 11.9 103/ul Critically high 4.0-11.0 [facility] Comment on above: Performed By: #### C #### [facility] [address] [place], [place] [address] ABD/PELVIS WO CONon [...] ultrasound. Note: Exam was submitted to [facility] operations Incidental Findings call que, to call the above findings to the patient's primary care provider nonemergently. Electronically authenticated by: RERE CARLISLE Date: 2022-05-08 05:24 Normal [facility] PROF 14(COMP METB)on 023 Albumin [Mass/Vol] 4.0 g/dL Normal 3.4-5.0 [facility] Comment on above: Performed By: #### R [id number] #### [facility] [address] [place] [address] Dr. Dimple Parsons Albumin/Globulin [Mass ratio] 1.1 {ratio} Normal [facility] Comment on above: Performed By: #### R [id number] #### [facility] [address] [place] [address] Dr. Dimple Parsons ALP [Catalytic activity/Vol] 76 U/L Normal 46-116 [facility] Comment on above: Performed By: #### R [id number] #### [facility] [address] [place] [address] Dr. Dimple Parsons ALT [Catalytic activity/Vol] 20 U/L Normal 14-59 [facility] Comment on above: Performed By: #### R [id number] #### [facility] [address] [address] [address] Dimple Parsons Anion gap [Moles/Vol] 14.9 mmol/L Normal [facility] Comment on above: Performed By: #### R [id number] #### [facility] [address] [place] [address] Dr. Dimple Parsons AST [Catalytic activity/Vol] 19 U/L Normal 15-37 [facility] Comment on above: Performed By: #### R [id number] #### [facility] [address] [place] [address] Dr. Dimple Parsons Bilirubin [Mass/Vol] 0.6 mg/dL Normal 0.2-1.0 [facility] Comment on above: Performed By: #### R [id number] #### [facility] [address] [place] [address] Dr. Dimple Parsons Calcium [Mass/Vol] 9.0 mg/dL Normal 8.5-10.1 [facility] Comment on above: Performed By: #### R [id number] #### [facility] [address] [place] [address] Dr. Dimple Parsons Chloride [Moles/Vol] 103 mmol/L Normal 98-107 [facility] Comment on above: Performed By: #### R [id number] #### [facility] [address] [place] [address] Dr. Dimple Parsons CO2 [Moles/Vol] 25.5 mmol/L Normal 21.0-32.0 [facility] Comment on above: Performed By: #### R [id number] #### [facility] [address] [place] [address] Dr. Dimple Parsons Creatinine [Mass/Vol] 0.75 mg/dL Normal 0.55-1.02 [facility] Comment on above: Performed By: #### R EVRT3 #### [facility] [address] [place] [address] Dr. Dimple Parsons EGFR-AF BAHRAINI >60 Normal >=60 [facility] Comment on above: Performed By: #### R [id number] #### [facility] [address] [place] [address] Dr. Dimple Parsons EGFR-NON AF BAHRAINI >60 Normal >=60 [facility] Comment on above: Performed By: #### R [id number] #### [facility] [address] [place] [address] Dr. Dimple Parsons Globulin (S) [Mass/Vol] 3.8 g/dL Normal [facility] Comment on above: Performed By: #### R [id number] #### [facility] [address] [address] [address] Dimple Parsons Glucose [Mass/Vol] 107 mg/dL Critically high 74-106 [facility] Comment on above: Performed By: #### R [id number] #### [facility] [address] [address] [address] Dimple Parsons Potassium [Moles/Vol] 3.4 mmol/L Critically low 3.5-5.1 [facility] Comment on above: Performed By: #### R [id number] #### [facility] [address] [address] [address] Dimple Parsons Protein [Mass/Vol] 7.8 g/dL Normal 6.4-8.2 [facility] Comment on above: Performed By: #### R [id number] #### [facility] [address] [address] [address] Dimple Parsons Sodium [Moles/Vol] 140 mmol/L Normal 136-145 [facility] Comment on above: Performed By: #### R [id number] #### [facility] [address] [address] [address] Dimple Parsons Urea nitrogen [Mass/Vol] 7.0 mg/dL Normal 7.0-18.0 [facility] Comment on above: Performed By: #### R [id number] #### [facility] [address] [address] [address] Dimple Parsons Urea nitrogen/Creatinine [Mass ratio] 9.3 mg/mg Normal [facility] Comment on above: Performed By: #### R [id number] #### [facility] [address] [address] [address] Dimple Parsons US PELVIS TRANSVAGon 023 [...] LEATHA GALVAN Date: 2022-05-08 08:57 Normal [facility] CBC AUTO DIFFon 01-13-2022 BASO # 0.1 103/ul Normal 0.0-0.1 [facility] Comment on above: Performed By: #### C BC #### [facility] [address] [address] [address] Dimple Parsons Basophils/100 WBC (Bld) 0.5 % Normal 0.2-2.0 [facility] Comment on above: Performed By: #### C BC #### [facility] [address] [address] [address] Dimple Parsons EO # 0.2 103/ul Normal 0.0-0.7 [facility] Comment on above: Performed By: #### C BC #### [facility] [address] [address] [address] Dimple Parsons Eosinophils/100 WBC (Bld) 2.3 % Normal 0.9-7.0 [facility] Comment on above: Performed By: #### C BC #### [facility] [address] [address] [address] Dimple Parsons Erythrocyte distribution width (RBC) [Ratio] 13.2 % Normal 11.0-15.0 [facility] Comment on above: Performed By: #### C BC #### [facility] [address] [place] [address] Dr. Dimple Parsons Hematocrit (Bld) [Volume fraction] 40.5 % Normal 36.0-48.0 [facility] Comment on above: Performed By: #### C BC #### [facility] [address] [place] [address] Dr. Dimple Parsons Hemoglobin (Bld) [Mass/Vol] 13.0 g/dL Normal 12.0-16.0 [facility] Comment on above: Performed By: #### C BC #### [facility] [address] [place] [address] Dr. Dimple Parsons IG # 0.01 10e3/ul Normal 0.00-0.03 [facility] Comment on above: Performed By: #### C BC #### [facility] [address] [place] [address] Dr. Dimple Parsons IG % 0.1 % Normal 0.0-0.5 [facility] Comment on above: Performed By: #### C BC #### [facility] [address] [place] [address] Dr. Dimple Parsons LYMPH # 2.6 103/ul Normal 1.2-3.8 [facility] Comment on above: Performed By: #### C BC #### [facility] [address] [place] [address] Dr. Dimple Parsons Lymphocytes/100 WBC (Bld) 27.4 % Normal 20.5-60.0 [facility] Comment on above: Performed By: #### C BC #### [facility] [address] [place] [address] Dr. Dimple Parsons MANUAL DIFF REQ NO Normal [facility] Comment on above: Performed By: #### C BC #### [facility] [address] [place] [address] Dr. Dimple Parsons MCH (RBC) [Entitic mass] 26.4 pg Critically low 26.7-34.0 [facility] Comment on above: Performed By: #### C BC #### [facility] [address] [place] [address] Dr. Dimple Parsons MCHC (RBC) [Mass/Vol] 32.1 g/dL Normal 29.9-35.2 [facility] Comment on above: Performed By: #### C BC #### [facility] [address] [place] [address] Dr. Dimple Parsons MCV (RBC) [Entitic vol] 82.2 fL Normal 81.0-99.0 [facility] Comment on above: Performed By: #### C BC #### [facility] [address] [place] [address] Dr. Dimple Parsons MONO # 0.6 103/ul Normal 0.3-0.8 [facility] Comment on above: Performed By: #### C BC #### [facility] [address] [place] [address] Dr. Dimple Parsons Monocytes/100 WBC (Bld) 6.2 % Normal 1.7-12.0 [facility] Comment on above: Performed By: #### C BC #### [facility] [address] [place] [address] Dr. Dimple Parsons NEUT # 6.1 103/ul Normal 1.4-6.5 [facility] Comment on above: Performed By: #### C BC #### [facility] [address] [place] [address] Dr. Dimple Parsons Neutrophils/100 WBC (Bld) 63.5 % Normal 43.0-75.0 [facility] Comment on above: Performed By: #### C BC #### [facility] [address] [place] [address] Dr. Dimple Parsons Platelet mean volume (Bld) [Entitic vol] 9.0 fL Critically low 9.5-13.5 [facility] Comment on above: Performed By: #### C BC #### [facility] [address] [place] [address] Dr. Dimple Parsons PLT 346 103/ul Normal 150-450 [facility] Comment on above: Performed By: #### C BC #### [facility] [address] [place] [address] Dr. Dimple Parsons RBC 4.93 106/ul Normal 4.20-5.40 [facility] Comment on above: Performed By: #### C BC #### [facility] [address] [place] [address] Dr. Dimple Parsons WBC 9.5 103/ul Normal 4.0-11.0 [facility] Comment on above: Performed By: #### Jocelyne BC #### [facility] [address] [place] [address] Dr. Dimple Parsons FREE T4on 01-13-2022 Free T4 [Mass/Vol] 1.39 ng/dL Normal 0.76-1.46 [facility] Comment on above: Performed By: #### Jocelyne BC #### [facility] [address] [place] [address] Dr. Dimple Parsons PROF CHEM 8 (BAS METB)on Anion gap [Moles/Vol] 10.4 mmol/L Normal [facility] Comment on above: Performed By: ###Rick CADENA #### [facility] [address] [place] [address] Dr. Dimple Parsons Calcium [Mass/Vol] 9.0 mg/dL Normal 8.5-10.1 [facility] Comment on above: Performed By: ###Rick CADENA #### [facility] [address] [place] [address] Dr. Dimple Parsons Chloride [Moles/Vol] 101 mmol/L Normal 98-107 [facility] Comment on above: Performed By: ###Rick CADENA #### [facility] [address] [place] [address] Dr. Dimple Parsons CO2 [Moles/Vol] 29.3 mmol/L Normal 21.0-32.0 [facility] Comment on above: Performed By: ###Rick CADENA #### [facility] [address] [place] [address] Dr. Dimple Parsons Creatinine [Mass/Vol] 0.79 mg/dL Normal 0.55-1.02 [facility] Comment on above: Performed By: ###Rick CADENA #### [facility] [address] [place] [address] Dr. Dimple Parsons EGFR-AF BAHRAINI >60 Normal >=60 [facility] Comment on above: Performed By: ###Rick CADENA #### [facility] [address] [address] [address] Dimple Parsons EGFR-NON AF BAHRAINI >60 Normal >=60 [facility] Comment on above: Performed By: #### Inder CADENA #### [facility] [address] [address] [address] Dimple Parsons Glucose [Mass/Vol] 92 mg/dL Normal 74-106 [facility] Comment on above: Performed By: #### Inder CADENA #### [facility] [address] [address] [address] Dimple Parsons Potassium [Moles/Vol] 3.7 mmol/L Normal 3.5-5.1 [facility] Comment on above: Performed By: #### Inder CADENA #### [facility] [address] [place] [address] Dr. Dimple Parsons Sodium [Moles/Vol] 137 mmol/L Normal 136-145 [facility] Comment on above: Performed By: #### Inder CADENA #### [facility] [address] [place] [address] Dr. Dimple Parsons Urea nitrogen [Mass/Vol] 11.0 mg/dL Normal 7.0-18.0 [facility] Comment on above: Performed By: #### Inder CADENA #### [facility] [address] [place] [address] Dr. Dimple Parsons Urea nitrogen/Creatinine [Mass ratio] 13.9 mg/mg Normal [facility] Comment on above: Performed By: #### Inder CADENA #### [facility] [address] [place] [address] Dr. Dimple Parsons PROTIMEon 01-13-2022 INR Coag (PPP) [Relative time] 1.04 {INR} Normal [facility] Comment on above: Performed By: #### P TT, PT #### [facility] [address] [place] [address] Dr. iDmple Parsons INR GUIDELINES SEE BELOW Normal [facility] Comment on above: Result Comment: VISHAL RED INR: 2.0 - 3.0 CONDITIONS NOT LISTED BELOW 2.5 - 3.5 FOR PROSTHETIC HEART VALVE REPLACEMENT 2.5 - 3.5 RECURRENT THROMBOSIS Performed By: #### P TT, PT #### [facility] [address] [place] [address] Dr. Dimple Parsons PT Coag (PPP) [Time] 11.2 s Normal 9.0-11.6 [facility] Comment on above: Performed By: #### P TT, PT #### [facility] [address] [place] [address] Dr. Dimple Parsons PTTon 01-13-2022 aPTT Coag (Bld) [Time] 35.1 s Normal 22.3-36.2 Th [facility] Comment on above: Performed By: #### P TT, PT #### [facility] [address] [place] [address] Dr. Dimple Parsons TSHon 01-13-2022 TSH 1.528 uIU/mL Normal 0.358-3.74 0 [facility] Comment on above: Performed By: #### T SH #### [facility] [address] [place] [address] Dr. Dimple Parsons PAP ACOG PANEL 2: 30 to 65on 12-26-2021 . . Normal [facility] Comment on above: Result Comment: Perf ormed at: WB Performed By: #### C BC #### [facility] [address] [place] [address] Dr. Dimple Parsons Age Gdln ACOG Testing 30-65 Normal [facility] Comment on above: Performed By: #### C BC #### [facility] [address] [place] [address] Dr. Dimple Parsons DIAGNOSIS: Comment Normal [facility] Comment on above: Result Comment: NEGA TIVE FOR INTRAEPITHELIAL LESION OR MALIGNANCY. Performed at: WB Performed By: #### C BC #### [facility] [address] [place] [address] Dr. Dimple Parsons HPV Aptima Negative Normal Negative [facility] Comment on above: Result Comment: This nucleic acid amplification test detects fourteen high-risk HPV types (16,18,31,33,35,39,45,51,52,56,58,59,66,68) without differentiation. Performed at: =G Performed By: #### C BC #### [facility] [address] [place] [address] Dr. Dimple Parsons Methodology: Comment Normal [facility] Comment on above: Result Comment: This liquid based ThinPrep(R) pap test was screened with the use of an image guided system. Performed at: WB Performed By: #### C BC #### [facility] [address] [place] [address] Dr. Dimple Parsons Note: Comment Normal [facility] Comment on above: Result Comment: The [...] WB Performed By: #### C BC #### [facility] [address] [place] [address] Dr. Dimple Parsons Performed by: Comment Normal [facility] Comment on above: Result Comment: Susan Hercules Clinical Science Liaison (ASCP) Performed at: WB Performed By: #### C BC #### [facility] [address] [place] [address] Dr. Dimple Parsons Specimen adequacy: Comment Normal [facility] Comment on above: Result Comment: Sati sfactory for evaluation. No endocervical component is identified. Performed at: WB Performed By: #### C BC #### [facility] [address] [place] [address] Dr. Dimple Parsons COVID Quick Testingon 2021 Result Negative [employer] Other Vital Signs Date Time Vital Sign Value Performing Clinician Facility 10-09-2024 13:09-0400 Body mass index (BMI) [Ratio] 30.92 kg/m2 [address] Work Phone: [facility] 10-09-2024 13:09-0400 Body weight 97.[address] Work Phone: [facility] 10-09-2024 13:09-0400 Diastolic blood pressure 82 mm[Hg] Brent Asuncion DO Work Phone: [facility] 10-09-2024 13:09-0400 Systolic blood pressure 122 mm[Hg] Brent Asuncion DO Work Phone: [facility] 09-05-2024 13:46-0400 Body height 175.26 cm Sainya Mays INSTRUCTIONAL SERVICES SPECIALIST Work Phone: [facility] 09-05-2024 13:46-0400 Body mass index (BMI) [Ratio] 31.3 kg/m2 Saniya Mays INSTRUCTIONAL SERVICES SPECIALIST Work Phone: [facility] 09-05-2024 13:46-0400 Body temperature 98.8 [degF] Saniya Vossrob INSTRUCTIONAL SERVICES SPECIALIST Work Phone: [facility] 09-05-2024 13:46-0400 Body weight 96.16 kg Saniya Vossrob INSTRUCTIONAL SERVICES SPECIALIST Work Phone: [facility] 09-05-2024 13:46-0400 Diastolic blood pressure 80 mm[Hg] Saniya Mays INSTRUCTIONAL SERVICES SPECIALIST Work Phone: [facility] 09-05-2024 13:46-0400 Systolic blood pressure 124 mm[Hg] Saniya Vossrob INSTRUCTIONAL SERVICES SPECIALIST Work Phone: [facility] 08-14-2024 13:38-0400 Body mass index (BMI) [Ratio] 30.68 kg/m2 Yesica OSWALD Work Phone: [facility] 08-14-2024 13:38-0400 Body weight 96.98 kg Yesica OSWALD Work Phone: [facility] 08-14-2024 13:38-0400 Diastolic blood pressure 84 mm[Hg] Yesica OSWALD Work Phone: [facility] 08-14-2024 13:38-0400 Systolic blood pressure 122 mm[Hg] Yesica OSWALD Work Phone: [facility] 07-23-2024 09:36-0400 Body mass index (BMI) [Ratio] 30.71 kg/m2 Brent Asuncion DO Work Phone: [facility] 07-23-2024 09:36-0400 Body weight 97.07 kg Brent Asuncion DO Work Phone: [facility] 07-23-2024 09:36-0400 Diastolic blood pressure 72 mm[Hg] Brent Asuncion DO Work Phone: [facility] 07-23-2024 09:36-0400 Systolic blood pressure 122 mm[Hg] Brent Asuncion DO Work Phone: [facility] 07-10-2024 10:02-0400 Body mass index (BMI) [Ratio] 31.13 kg/m2 Brent Asuncion DO Work Phone: [facility] 07-10-2024 10:02-0400 Body weight 95.62 kg Brent Asuncion DO Work Phone: [facility] 07-10-2024 10:02-0400 Diastolic blood pressure 84 mm[Hg] Brent Asuncion DO Work Phone: [facility] 07-10-2024 10:02-0400 Systolic blood pressure 124 mm[Hg] Brent Asuncion DO Work Phone: [facility] 05-16-2024 10:18-0500 Body height 175.26 cm [facility] 05-16-2024 10:18-0500 Body mass index (BMI) [Ratio] 29.9 kg/m2 [facility] 05-16-2024 10:18-0500 Body temperature 97.2 [degF] [facility] 05-16-2024 10:18-0500 Body weight 92.07 kg [facility] 05-16-2024 10:18-0500 Diastolic blood pressure 82 mm[Hg] [facility] 05-16-2024 10:18-0500 Heart rate 106 /min [facility] 05-16-2024 10:18-0500 SaO2% (BldA) [Mass fraction] 98 % [facility] 05-16-2024 10:18-0500 Systolic blood pressure 122 mm[Hg] [facility] 03-15-2024 11:31-0500 Body height 175.26 cm [facility] 03-15-2024 11:31-0500 Body mass index (BMI) [Ratio] 31.3 kg/m2 [facility] 03-15-2024 11:31-0500 Body temperature 96.5 [degF] [facility] 03-15-2024 11:31-0500 Body weight 96.27 kg [facility] 03-15-2024 11:31-0500 Diastolic blood pressure 72 mm[Hg] [facility] 03-15-2024 11:31-0500 Heart rate 92 /min [facility] 03-15-2024 11:31-0500 SaO2% (BldA) [Mass fraction] 97 % [facility] 03-15-2024 11:31-0500 Systolic blood pressure 122 mm[Hg] [facility] 02-15-2024 13:04-0500 Body height 175.26 cm [facility] 02-15-2024 13:04-0500 Body mass index (BMI) [Ratio] 31.8 kg/m2 [facility] 02-15-2024 13:04-0500 Body temperature 97.3 [degF] [facility] 02-15-2024 13:04-0500 Body weight 97.63 kg [facility] 02-15-2024 13:04-0500 Diastolic blood pressure 80 mm[Hg] [facility] 02-15-2024 13:04-0500 Heart rate 114 /min [facility] 02-15-2024 13:04-0500 SaO2% (BldA) [Mass fraction] 98 % [facility] 02-15-2024 13:04-0500 Systolic blood pressure 122 mm[Hg] [facility] 12-02-2023 10:38-0400 Body height 175.26 cm [facility] 12-02-2023 10:38-0400 Body mass index (BMI) [Ratio] 31.3 kg/m2 [facility] 12-02-2023 10:38-0400 Body weight 96.16 kg [facility] 12-02-2023 10:38-0400 Diastolic blood pressure 90 mm[Hg] [facility] 12-02-2023 10:38-0400 Heart rate 81 /min [facility] 12-02-2023 10:38-0400 Systolic blood pressure 133 mm[Hg] [facility] 10-10-2023 11:23-0400 Body height 175.26 cm [facility] 10-10-2023 11:23-0400 Body mass index (BMI) [Ratio] 31.1 kg/m2 [facility] 10-10-2023 11:23-0400 Body weight 95.84 kg [facility] 10-10-2023 11:23-0400 Diastolic blood pressure 70 mm[Hg] [facility] 10-10-2023 11:23-0400 Heart rate 98 /min [facility] 10-10-2023 11:23-0400 SaO2% (BldA) [Mass fraction] 98 % [facility] 10-10-2023 11:23-0400 Systolic blood pressure 128 mm[Hg] [facility] 10-03-2023 14:50-0400 Body height 175.26 cm [facility] 10-03-2023 14:50-0400 Body mass index (BMI) [Ratio] 31.3 kg/m2 [facility] 10-03-2023 14:50-0400 Body weight 96.16 kg [facility] 10-03-2023 14:50-0400 Diastolic blood pressure 86 mm[Hg] [facility] 10-03-2023 14:50-0400 Heart rate 85 /min [facility] 10-03-2023 14:50-0400 Systolic blood pressure 125 mm[Hg] [facility] 09-07-2023 13:03-0400 Body height 175.26 cm [facility] 09-07-2023 13:03-0400 Body mass index (BMI) [Ratio] 31.1 kg/m2 [facility] 09-07-2023 13:03-0400 Body weight 95.7 kg [facility] 09-07-2023 13:03-0400 Diastolic blood pressure 62 mm[Hg] [facility] 09-07-2023 13:03-0400 Heart rate 61 /min [facility] 09-07-2023 13:03-0400 SaO2% (BldA) [Mass fraction] 97 % [facility] 09-07-2023 13:03-0400 Systolic blood pressure 102 mm[Hg] [facility] 06-17-2023 14:03-0400 Body height 175.26 cm [facility] 06-17-2023 14:03-0400 Body mass index (BMI) [Ratio] 31.6 kg/m2 [facility] 06-17-2023 14:03-0400 Body weight 97.12 kg [facility] 06-17-2023 14:03-0400 Diastolic blood pressure 92 mm[Hg] [facility] 06-17-2023 14:03-0400 Heart rate 109 /min [facility] 06-17-2023 14:03-0400 Systolic blood pressure 136 mm[Hg] [facility] 04-04-2023 14:15-0500 Body height 175.26 cm Surya Hodges Other [facility] 04-04-2023 14:15-0500 Body mass index (BMI) [Ratio] 30.42 kg/m2 Surya Hodges Other [employer] Other 04-04-2023 14:15-0500 Body weight 93.44 kg Surya Hodges Other [facility] 04-04-2023 14:15-0500 Diastolic blood pressure 85 mm[Hg] Surya Hodges Other [facility] 04-04-2023 14:15-0500 Systolic blood pressure 120 mm[Hg] Surya Hodges Other [facility] 12-17-2022 08:30-0400 Body height 175.26 cm Surya Hodges Other [facility] [employer] Other 12-17-2022 08:30-0400 Body mass index (BMI) [Ratio] 29.5 kg/m2 Surya Hodges Other [facility] [employer] Other 12-17-2022 08:30-0400 Body weight 90.63 kg Surya Hodges Other [facility] [employer] Other 12-17-2022 08:30-0400 Diastolic blood pressure 85 mm[Hg] Surya Hodges Other [facility] [employer] Other 12-17-2022 08:30-0400 Systolic blood pressure 120 mm[Hg] Surya Hodges Other [facility] [employer] Other 12-01-2022 12:00-0400 Body temperature 97.6 [degF] [...] Body height 175.26 cm Surya Hodges Other [facility] [employer] Other 11-29-2022 11:15-0400 Body mass index (BMI) [Ratio] 28.79 kg/m2 Surya Hodges Other [facility] [employer] Other 11-29-2022 11:15-0400 Body temperature 97.1 [degF] Surya Hodges Other [employer] Other 11-29-2022 11:15-0400 Body weight 88.45 kg Surya Hodges Other [employer] Other 11-29-2022 11:15-0400 Diastolic blood pressure 88 mm[Hg] Surya Hodges Other [employer] Other 11-29-2022 11:15-0400 SaO2% (BldA) [Mass fraction] 98 % Surya Hodges Other [employer] Other 11-29-2022 11:15-0400 Systolic blood pressure 124 mm[Hg] Surya Hodges Other [employer] Other 11-18-2022 08:30-0400 Body height 175.26 cm Surya Hodges Other [employer] Other 11-18-2022 08:30-0400 Body mass index (BMI) [Ratio] 28.59 kg/m2 Surya Hodges Other [employer] Other 11-18-2022 08:30-0400 Body weight 87.82 kg Surya Hodges Other [employer] Other 11-18-2022 08:30-0400 Diastolic blood pressure 89 mm[Hg] Surya Hodges Other [employer] Other 11-18-2022 08:30-0400 Systolic blood pressure 131 mm[Hg] Surya Hodges Other [employer] Other 11-05-2022 10:00-0400 Body height 175.26 cm Surya Hodges Other [employer] Other 11-05-2022 10:00-0400 Body mass index (BMI) [Ratio] 29.68 kg/m2 Surya Hodges Other [employer] Other 11-05-2022 10:00-0400 Body weight 91.17 kg Surya Hodges Other [employer] Other 11-05-2022 10:00-0400 Diastolic blood pressure 85 mm[Hg] Surya Hodges Other [employer] Other 11-05-2022 10:00-0400 Systolic blood pressure 134 mm[Hg] Surya Hodges Other [employer] Other 10-18-2022 08:30-0400 Body height 175.26 cm Surya Hodges Other [employer] Other 10-18-2022 08:30-0400 Body mass index (BMI) [Ratio] 28.94 kg/m2 Surya Hodges Other [employer] Other 10-18-2022 08:30-0400 Body weight 88.91 kg Surya Hodges Other [employer] Other 10-18-2022 08:30-0400 Diastolic blood pressure 89 mm[Hg] Surya Hodges Other [employer] Other 10-18-2022 08:30-0400 Systolic blood pressure 137 mm[Hg] Surya Hodges Other [employer] Other 09-09-2022 10:15-0400 Body height 175.26 cm Surya Hodges Other [employer] Other 09-09-2022 10:15-0400 Body mass index (BMI) [Ratio] 29.12 kg/m2 Surya Hodges Other [employer] Other 09-09-2022 10:15-0400 Body weight 89.45 kg Surya Hodges Other [employer] Other 09-09-2022 10:15-0400 Diastolic blood pressure 89 mm[Hg] Surya Hodges Other [employer] Other 09-09-2022 10:15-0400 Respiratory rate 12 /min Surya Hodges Other [employer] Other 09-09-2022 10:15-0400 Systolic blood pressure 132 mm[Hg] Surya Hodges Other [employer] Other 05-21-2022 10:01-0500 Blood Pressure Location Kamaljit ROMERO [facility] 05-21-2022 10:01-0500 Diastolic blood pressure 80 mm[Hg] Kamaljit ROMERO [facility] 05-21-2022 10:01-0500 Heart rate 85 /min Kamaljit ROMERO [facility] 05-21-2022 10:01-0500 Systolic blood pressure 119 mm[Hg] Kamaljit ROMERO [facility] 01-13-2022 08:36-0400 Blood Pressure Location SANIYA KAUFMAN [facility] 01-13-2022 08:36-0400 Diastolic blood pressure 90 mm[Hg] SANIYA MANDEEP [facility] 01-13-2022 08:36-0400 Heart rate 91 /min SANIYA MANDEEP [facility] 01-13-2022 08:36-0400 Respiratory rate 16 /min SANIYA MANDEEP [facility] 01-13-2022 08:36-0400 Systolic blood pressure 134 mm[Hg] SANIYA MANDEEP [facility] 04-08-2021 15:30-0500 Body height 175.26 cm Treasure Quezada Other [employer] Other 04-08-2021 15:30-0500 Body mass index (BMI) [Ratio] 29.97 kg/m2 Treasure Quezada Other [employer] Other 04-08-2021 15:30-0500 Body temperature 96.6 [degF] Treasure Quezada Other [employer] Other 04-08-2021 15:30-0500 Body weight 92.08 kg Treasure Quezada Other [employer] Other 04-08-2021 15:30-0500 Respiratory rate 18 /min Treasure Quezada Other [employer] Other 04-08-2021 15:30-0500 SaO2% (BldA) [Mass fraction] 98 % Treasure Quezada Other [employer] Other Encounters Encounter Date Encounter Type Care Provider Facility Start: 12-28-2024 ambulatory Kamaljit Hannah ty:[facility] Start: 11-20-2024 ambulatory Kamaljit Hannah ty:[id number] Start: 10-29-2024 End: 10-29-2024 Patient encounter procedure Kamaljit Romero MD -[facility] Work Phone: Start: 10-29-2024 End: 10-29-2024 ambulatory Saniya Mays APRN Work Phone: [facility] Work Phone: Start: 10-09-2024 End: 10-09-2024 Bamboo flowsheet Brent Asuncion DO Work Phone: [facility] Start: 10-09-2024 End: 10-12-2024 Bamboo flowsheet Brent Asuncion DO Work Phone: [facility] Start: 10-09-2024 End: 10-12-2024 Clinisync Result Encounter Brent Asuncion DO Work Phone: [facility] Department Unsolicited Start: 10-09-2024 End: 10-09-2024 Patient encounter procedure Brent Asuncion DO Work Phone: [facility] Start: 10-09-2024 End: 10-09-2024 Periodic preventive med est patient 18-39 yrs Brent Asuncion DO Work Phone: [facility] Comment on above: Well woman exam with routine gynecological exam; Insulin resistance; Encounter for weight loss counseling Start: 10-09-2024 Non-patient / Non-visit Brent Roland [facility] Work Phone: Start: 10-09-2024 End: 10-09-2024 ambulatory BRENT ROLAND Not Available Start: 10-02-2024 End: 10-02-2024 ambulatory Kamaljit ROMERO Facility:[facility] Start: 10-02-2024 End: 10-02-2024 Patient encounter procedure Kamaljit ROMERO [facility] Start: 09-05-2024 End: 09-06-2024 ambulatory Saniya Mays APRN Work Phone: [facility] Work Phone: Start: 09-05-2024 End: 09-05-2024 Patient encounter procedure Saniya Mays APRN [facility] Work Phone: Start: 08-23-2024 Non-patient / Non-visit Kamaljit romero MD -[facility] Work Phone: Start: 08-14-2024 [...] Start: 08-02-2024 Non-patient / Non-visit Brent Roland [facility] Work Phone: Start: 08-02-2024 End: 08-02-2024 ambulatory Kamaljit ROMERO Facility:[id number] Start: 07-23-2024 End: 07-23-2024 Bamboo flowsheet Brent Asuncion DO Work Phone: [facility] Start: 07-23-2024 End: 07-23-2024 Bamboo flowsheet Brent Asuncion DO Work Phone: [facility] Start: 07-23-2024 End: 07-23-2024 Clinisync Result Encounter Brent Asuncion DO Work Phone: [facility] External Department Unsolicited Start: 07-23-2024 Non-patient / Non-visit Brent Asuncion -[facility] Work Phone: Start: 07-23-2024 End: 07-23-2024 ambulatory BRENT ASUNCION Not Available Start: 07-23-2024 End: 07-23-2024 Office outpatient visit 15 minutes Brent Asuncion DO Work Phone: [facility] Comment on above: Pre-op evaluation; Pelvic pain in female; Pain of ovary; H/O: hysterectomy Start: 07-23-2024 End: 07-23-2024 Preprocedural examination done Brent Asuncion DO Work Phone: [facility] Start: 07-10-2024 End: 07-10-2024 Bamboo flowsheet [...] Department Unsolicited Start: 05-16-2024 End: 05-16-2024 ambulatory [facility] Work Phone: Start: 05-16-2024 End: 05-16-2024 Patient encounter procedure [facility] Work Phone: Start: 03-15-2024 End: 03-15-2024 ambulatory [facility] Work Phone: Start: 03-15-2024 End: 03-15-2024 Patient encounter procedure [facility] Work Phone: Start: 02-15-2024 End: 02-15-2024 Patient encounter procedure [facility] Work Phone: Start: 12-02-2023 End: 12-02-2023 ambulatory [facility] Work Phone: Start: 12-02-2023 End: 12-02-2023 Patient encounter procedure [facility] Work Phone: Start: 10-10-2023 End: 10-10-2023 Patient encounter procedure [facility] Work Phone: Start: 10-05-2023 Patient encounter status [facility] Start: 10-03-2023 End: 10-03-2023 ambulatory [facility] Work Phone: Start: 10-03-2023 End: 10-03-2023 Encounter for general adult medical examination without abnormal findings [facility] Start: 10-03-2023 End: 10-03-2023 Patient encounter procedure [facility] Work Phone: Start: 09-07-2023 End: 09-07-2023 ambulatory [facility] Work Phone: Start: 09-07-2023 End: 09-07-2023 Patient encounter procedure [facility] Work Phone: Start: 07-12-2023 Non-patient / Non-visit [facility] [employer] [facility] Work Phone: Start: 06-17-2023 End: 06-17-2023 ambulatory [facility] Work Phone: Start: 06-17-2023 End: 06-17-2023 Patient encounter procedure [facility] Work Phone: Start: 05-04-2023 End: 05-04-2023 ambulatory [facility] Work Phone: Start: 05-04-2023 End: 05-04-2023 Patient encounter procedure [facility] Work Phone: Start: 05-02-2023 Non-patient / Non-visit [facility] [employer] Work Phone: Start: 04-21-2023 End: 04-21-2023 Online digital e/m svc est pt <7 d 11-20 minutes Yesica OSWALD Work Phone: [facility] Comment on above: Insulin resistance; Metabolic syndrome; Hormone imbalance Start: 04-04-2023 End: 04-04-2023 ambulatory Surya Hodges Other [employer] Other Start: 04-04-2023 Office outpatient vi sit 15 minutes Surya Hodges [facility] Start: 04-04-2023 End: 04-04-2023 Patient encounter procedure [facility]- Start: 03-11-2023 End: 03-11-2023 ambulatory Surya Hodges Other [employer] Other Start: 03-11-2023 Telephone encounter Surya Hodges [facility] Start: 03-11-2023 Patient encounter procedure [facility]- Start: 01-12-2023 End: 01-12-2023 ambulatory Surya Hodges Other [employer] Other Start: 01-12-2023 Telephone encounter Surya Hodges [facility] Start: 12-17-2022 End: 12-17-2022 ambulatory Surya Hodges Other [employer] Other Start: 12-17-2022 Office outpatient vi sit 15 minutes Surya Hodges [facility] Start: 11-30-2022 End: 12-01-2022 Evaluation and management of inpatient MD Surya Hodges Work Phone: [facility] [place] Work Phone: Start: 11-30-2022 End: 12-01-2022 observation encounter MD Surya Hodges Work Phone: [facility] Work Phone: Start: 11-30-2022 End: 11-30-2022 ambulatory Surya Hodges Other [employer] Other Start: 11-30-2022 Telephone encounter Surya Hodges [facility] Start: 11-29-2022 End: 11-29-2022 ambulatory Surya Hodges Other [employer] Other Start: 11-29-2022 Office outpatient vi sit 15 minutes Surya Hodges [facility] Start: 11-29-2022 Telephone encounter Surya Hodges [facility] Start: 11-18-2022 End: 11-18-2022 ambulatory Surya Hodges Other [employer] Other Start: 11-18-2022 Office outpatient vi sit 10 minutes Surya Hodges [facility] Start: 11-05-2022 End: 11-05-2022 ambulatory Surya Hodges Other [employer] Other Start: 11-05-2022 Office outpatient vi sit 10 minutes Surya Hodges [facility] Start: 11-04-2022 End: 11-04-2022 ambulatory Surya Tracie Other [employer] Other Start: 11-04-2022 Telephone encounter Surya Hodges [facility] Start: 10-18-2022 End: 10-18-2022 ambulatory Surya Tracie Other [employer] Other Start: 10-18-2022 Office outpatient vi sit 10 minutes Surya Hodges [facility] Start: 09-17-2022 End: 09-17-2022 ambulatory Surya Tracie Other [employer] Other Start: 09-17-2022 Telephone encounter Surya Hodges [facility] Start: 09-09-2022 End: 09-09-2022 ambulatory Surya Tracie Other [employer] Other Start: 09-09-2022 Office outpatient vi sit 15 minutes Surya Hodges [facility] Start: 06-18-2022 Encounter for other preprocedural examination DR BRENT ROLAND . [facility] Start: 06-16-2022 End: 06-16-[address] [...] encounter procedure Kamaljit ROMERO [facility] Start: 05-20-2022 End: 05-21-[address] SURYA HODGES Facility:[facility] Start: 05-08-2022 End: 05-08-[address] SURYA HODGES Facility:[facility] Start: 03-23-2022 End: 04-16-2022 ambulatory BRINA SHEIKH Facility:[facility] Start: 03-16-2022 End: 03-16-2022 ambulatory Surya Hodges Other [employer] Other Start: 03-16-2022 Office outpatient vi sit 15 minutes Surya Hodges [facility] Start: 02-25-2022 Gynecological examination normal Surya Hodges Other [employer] Other Start: 02-25-[address] SURYA HODGES Facil ity:[facility] Start: 02-21-2022 End: 02-21-2022 ambulatory MD Surya Hodges Work Phone: [facility] Work Phone: Start: 02-21-2022 End: 02-21-2022 Patient encounter procedure MD Surya Hodges Work Phone: [facility] Start: 01-13-2022 End: 01-14-[address] BRENT ROLAND . Facility:[facility] Start: 01-13-2022 End: 01-13-2022 Patient encounter procedure SANIYA KAUFMAN [facility] Start: 12-21-2021 End: 12-21-[address] BRENT ROLAND . Facility:[facility] Start: 04-08-2021 (URG) Urgent Care Visit Treasure pimentel [facility] Start: 04-08-2021 End: 04-08-2021 ambulatory Treasure Quezada Other [employer] Other Start: 05-16-2020 Pre-procedure evalua tion check Surya Hodges Other [employer] Other Procedures Date Procedure Procedure Detail Performing Clinician Start: 10-29-2024 Intravenous pyelogram Anne Mays APRN Work Phone: Start: 10-09-2024 IGP,APTIMA HPV,AGE GDLN [...] Injection of urethra Pa anuj ROMERO Appendectomy SANIYA KAUFMAN Cholecystectomy SANIYA PATRICIA [...] procedure 11/06/2024 2:40 PM EDT Office Visit [facility] [address] [place] [id number] Brent Roland, DO [address] [place] [address] [facility] Start: 10-09-2024 End: 10-09-2024 Patient encounter procedure [facility] Comment on above: Arrived Start: 08-14-2024 End: 08-14-2024 Patient encounter procedure 08/14/2024 1:20 PM EDT Office Visit [facility] [address] [place] [address] Yesica Becker PA [address] [place] [address] Arrived [facility] Comment on above: Arrived Start: 07-10-2024 End: 07-10-2024 Patient encounter procedure 07/10/2024 10:00 AM EDT Office Visit [facility] [address] [place] [address] Brent Roland DO [address] [place] [address] Arrived [facility] Comment on above: Arrived Start: 12-01-2022 [facility] Start: 11-30-2022 Hospital admission [facility] Start: 11-12-2022 Influenza vaccination Influenza Vacc ine (#1) [facility] Start: 06-10-2019 Screening for malign ant neoplasm of cervix [facility] Start: 2010 Screening for malign ant neoplasm of cervix Pap Smear [facility] CBC W Auto Different ial panel - Blood CBC and differential Lab Routine Metabolic syndrome Hormone imbalance Ordered: 04/21/2023 [facility] Work Phone: Comment on above: Ordered: 04/21/2023 CHLAMYDIA TRACHOMATI S (GENITO/STI) CHLAMYDIA TRACHOMATIS (GENITO/STI) Lab Routine Pelvic pain Ordered: 07/10/2024 [facility] Comment on above: Ordered: 07/10/2024 Comprehensive metabo lic 1999 panel - Serum or Plasma [facility] Comprehensive metabo lic 1999 panel - Serum or Plasma [facility] Comprehensive metabo lic 1999 panel - Serum or Plasma Comprehensive metabolic panel Lab Routine Pre-op evaluation Pelvic pain in female H/O: hysterectomy Ordered: 07/23/2024 [facility] Work Phone: Comment on above: Ordered: 07/23/2024 Cytology Cervical or vaginal smear or scraping study Pap Smear Pathology and Cytology Routine Well woman exam with routine gynecological exam Ordered: 10/09/2024 [facility] Work Phone: Comment on above: Ordered: 10/09/2024 Human papilloma viru s DNA [Presence] in Unspecified specimen by Probe with amplification HPV DNA probe, amplified Microbiology Routine Well woman exam with routine gynecological exam Ordered: 10/09/2024 [facility] Comment on above: Ordered: 10/09/2024 Neisseria gonorrhoea e DNA [Presence] in Unspecified specimen by LEO with probe detection Neisseria gonorrhea DNA probe, direct Lab Routine Pelvic pain Ordered: 07/10/2024 [facility] Comment on above: Ordered: 07/10/2024 Patient Education Mediterranean Diet Hyperthyroidism (Overactive Thyroid) (DC) Propranolol Prediabetes (DC) [facility] Work Phone: Patient referral [facility] Work Phone: SURESWAB(R) ADVANCED VAGINITIS PLUS, TMA SURESWAB(R) ADVANCED VAGINITIS PLUS, TMA Pathology and Cytology Routine Pelvic pain Ordered: 07/10/2024 [facility] Work Phone: Comment on above: Ordered: 07/10/2024 XR Knee - left 4 Views [facility] Immunizations Immunization Date Immunization Notes Care Provider Fa cility 04-20-2021 SARS-CoV-2 (COVID-19 ) mRNA BNT-162b2 vax SANIYA KAUFMAN [facility] Comment on above: Result Comment: 2021: TPVALL 08-14-2020 SARS-CoV-2 (COVID-19 ) Ad26 vaccine, recombinant SANIYA KAUFMAN [facility] Comment on above: Result Comment: 2021: TPVALL Payers Date Payer Category Payer Private Health Insurance [id number] 2021 [facility] BC[employer] [id number] 2021 Unknown [employer] BCBS [id number] [id number] 2021-Present [phone] [address] [place] [address] [id number] 1989 Unknown [id number] 1989 Unknown [id number] 1989 Unknown [id number] 1989 Unknown [id number] 1989 Unknown [id number] 1989 Unknown [id number] 1990 Unknown [id number] 2.16.840.1.795679.3.579 .2.593 1989 Unknown [id number] 2.16.840.1.106389.3.579 .2.593 1989 Unknown [id number] 2.16.840.1.239120.3.579 .2.593 1989 Unknown [id number] 2.16.840.1.080754.3.579 .2.593 1989 Unknown [id number] 2.16.840.1.295491.3.579 .2.593 1989 Unknown [id number] 2.16.840.1.677279.3.579 .2.593 1989 Unknown [id number] 2.16.840.1.901045.3.579 .2.1259 1989 Unknown [id number] 2.16.840.1.023991.3.579 .2.1259 1989 Unknown [id number] 2.16.840.1.159847.3.579 .2.1259 1989 Unknown [id number] 2.16.840.1.308945.3.579 .2.1259 1989 Unknown [id number] 2.16.840.1.098155.3.579 .2.727 1989 Unknown [id number] 2.16.840.1.681028.3.579 .2.727 1989 Unknown [id number] 2.16.840.1.632668.3.579 .2.727 1989 Unknown [id number] 2.16.840.1.829959.3.579 .2.727 1960 Blue Cross Blue Shield [facility] [id number] 2.16.840.1.636549.19 Self-pay Self Pay [id number] Unknown Harpal BC/BS [id number] Social History Date Type Detail Facility Unknown if ever smoked [place] [employer] Other Start: 02-09-2023 End: 07-10-[address] [facility] Start: 01-13-2022 End: 09-07-2023 Tobacco smoking status Never smoked tobacco (finding) [facility] Tobacco smoking status Never [facility] Start: 1990 Sex Assigned At Female [facility] Start: 02-09-2023 End: 10-09-2024 Alcohol intake Ex-drinker (finding) [facility] Start: 02-09-2023 End: 07-10-2024 History of Social function [facility] Start: 09-24-2022 Alcohol Comment occasional: drinks wine & beer [facility] Start: 09-27-2022 Gender identity Identifies as female gender (finding) [facility] Start: 03-18-2010 End: 03-15-2024 Sex Female (finding) [facility] Sexual Orientation [facility] Goals Date Patient Goal Desired Activity /State Functional Status Date Assessment Result Facility 12-01-2022 Functional status Patient at Baseline [facility] Work Phone: 05-21-2022 Functional Status N/A [facility] 01-13-2022 Functional Status N/A [facility] Mental Status Date Assessment Result Facility 12-01-2022 Cognitive function Cognitive Sta tus Patient at Baseline [facility] Work Phone: Clinical Notes 04-08-2021 to 10-09-2024 [...] 0.4 mg, Daily ALLERGIES Allergies Allergen Reactions Ahbeaqn-Hqrykt-Ijdhz Pertussis Swelling Tetanus-Diphtheria Toxoids Td Other Azithromycin [...] nursing note reviewed. Exam conducted with a sunday school missionary present. Vitals: Estimated body mass index is [...] them. Patient can also view results via [email or web address]. I reinforced importance of condom use for [...] Brent Roland DO documented in this encounter [facility] 10-02-2024 Hospital Discharg e instructions Patient Education [...] include: ?8 oz (237 mL) of milk, pvdoykb-sofcpjpfbwic-wdckk milk, and calcium-fortifiedfruit juice. Calcium-fortified means that [...] ?Spinach (cooked), rhubarb, beets, sweet potatoes, and Montenegrin chard. ?Peanuts. ?Potato chips, scottish fries, and baked potatoes with skin on. ?Nuts and nut products. ?Chocolate. If you regularly take a diuretic medicine, make sure to eat at least 1 or 2 servings of fruits or vegetables that are high in potassium each day. These include: ?Avocado. ?Banana. ?Scott, prune, carrot, or tomato juice. ?Baked potato. [...] magnesium, fish oil, or vitamin B6. Take awfn-elv-uegrmqa and prescription medicines only as told by [...] Casseroles. Pizza. Lasagna. Frozen meals. Potato chips. Yoruba fries. The items listed above may not [...] provider. Document Revised: 06/10/2022 Document Reviewed: 06/10/2022 [employer] Patient Education 2023 [employer]. Follow Up Care 09/11/2024 09:57:49 With:LUCY STILES, Kamaljit Rivas, URL Address: [facility] [address], [place] [address]- When: Unknown [facility] 10-02-2024 Note Patient Education Nephrology Dietary Guidelines [...] ? 8 oz (237 mL) of milk, cenikpd-juhbbxnqunyn-vvbaq milk, and calcium-fortifiedfruit juice. Calcium-fortified means that [...] Spinach (cooked), rhubarb, beets, sweet potatoes, and Montenegrin chard. ? Peanuts. ? Potato chips, scottish fries, and baked potatoes with skin on. ? Nuts and nut products. ? Chocolate. ??? If you regularly take a diuretic medicine, make sure to eat at least 1 or 2 servings of fruits or vegetables that are high in potassium each day. These include: ? Avocado. ? Banana. ? Scott, prune, carrot, or tomato juice. ? Baked [...] fish oil, or vitamin B6. ??? Take mwrz-txp-uhcbchz and prescription medicines only as told by your health (more content not included)... [facility] 09-05-2024 Evaluation note Diagnosis Onset Date Resolution Poison abena dermatitis acute Prakash e 2024 1:43pm [facility] Work Phone: 1(174) 612-362806-03-2025 History of Present illness Narrative* MARGRET Canales [...] chew, or split. ALLERGIES Allergies Allergen Reactions Gelinly-Hdptke-Lejtn Pertussis Swelling Tetanus-Diphtheria Toxoids Td Other Azithromycin [...] behalf of: MARGRET Canales documented in this encounterFreeman [facility]opaedics & Sports [id number] History of Present illness Narrative* Brenda Tomlinson [...] on 08/02/[address] Roland at [facility]. MEDICATIONS Current Outpatient Medications Medication Instructions [...] chew, or split. ALLERGIES Allergies Allergen Reactions Yjjnknt-Tffsmd-Uczra Pertussis Swelling Tetanus-Diphtheria Toxoids Td Other Azithromycin [...] nursing note reviewed. Exam conducted with a sunday school missionary present. Vitals: Estimated body mass index is [...] reviewed, and patient is to proceed to [facility] OR. Follow Up: Patient is to follow up between 1-2 weeks post operative to assess proper healing and recovery fromprocedure. Documented by Laney Chow LPN on behalf of: Brent Roland DO documented in this encounterFreeman Orthopaedics & Sports [id number] History of Present illness Narrative* Leatha Blair [...] Oral, Daily ALLERGIES Allergies Allergen Reactions Adacel [Frnrzzz-Ytlntp-Jhlpx Pertussis] Swelling Clindamycin Rash PROBLEMS Active Ambulatory [...] nursing note reviewed. Exam conducted with a sunday school missionary present. Vitals: Estimated body mass index is [...] of: Brent Roland DO documented in this encounterFreeman Orthopaedics & Sports [id number] Evaluation note* Diagnosis Onset Date Resolution Status Admit Date Obesity (BMI 30.0-34.9) acute J anuary 2024 11:26am Hypothyroidism acute May 16, 2024 10:00am Screening for lipid disorders acute May 16, 2024 10:00am Screening for metabolic disorder acu te May 16, 2024 10:00am Screening, deficiency anemia , iron acute May 16, 2024 10:00am Vitamin D deficiency acute [place] 2024 10:00am [facility] Work Phone: 1(134) 293-599012-04-2024 Evaluation note* Diagnosis Onset Date Resolution Status Admit Date Bronchitis acute February 15, 2024 1:00pm Maxillary sinusitis acute Decem 2023 1:00pm Obesity (BMI 30.0-34.9) acute D ecember 2023 1:00pm [facility] Work Phone: 1(176) 452-403002-08-2024 History of Present illness Narrative* MARGRET Canales - 04/21/2023 8:50 AM EST Reason for Appointment: Patient ID: Tootie Vazquez is a 32 y.o. female who presents for telehealth follow up Patient presents today via telephone call for a telehealth appointment. Patients Phone #: [phone] (mobile) Current Medications: has a current medication [...] LIGATION Bilateral 2012 Allergies Allergen Reactions Adacel [Uzbvbso-Xhsqxm-Gkylt Pertussis] Swelling Clindamycin Rash Vitals: Estimated body [...] for cbc check for kidney function to [facility]. Pt aware and agrees to have blood work obtained. She will follow up in office in 3 months Documented by MARGRET Canales on behalf of: MARGRET Canales * Hedy Carter MA - 04/21/2023 8:50 AM EST Cbc order was sent to [facility] for pt to have done. documented in this encounterFreeman Orthopaedics & Sports [id number] Evaluation note* Encounter Date Diagnosis Assessment Notes Treatment Notes Treatment Clinical Notes Mar, Bronchitis (ICD-10 - J40) Discussed diagnosis with patient. Finish entire course of antibiotic. Proair inhaler sent today for patient to use PRN cough/wheezing/short ness of breath. Tessalon Pearles ordered to take as needed for cough. Increase fluids and rest. Pujq-lgj-lxztvjb antipyretics as needed. Warning signs and symptoms reviewed with patient today. Patient to go immediately to the ER should she experience any of these. Patient to notify office should her symptoms persist and not improve. Patient verbalizes understanding and agrees to treatment plan. Mar, Vaginal yeast infection (ICD-10 - B37.31) Pt requests diflucan to cover probable yeast infection w antibiotic. [employer] Other 12-29-2023 Evaluation note* Encounter Date Diagnosis Assessment Notes Treatment Notes Treatment Clinical Notes Feb, Sore throat (ICD-10 - J02.9) [employer] Other 10-06-2023 Evaluation note* Encounter Date Diagnosis Assessment Notes Treatment Notes Treatment Clinical Notes Dec, Hypothyroidism (ICD-10 - E03.9) Recheck in next 4-6 weeks. Continue healthy diet and exercise. [employer] Other 09-20-2023 Discharge summary Author Baljinder Polanco [facility] December 01, 2022 5:19pm Note Date/Time December 01, 2022 1:02pm [facility] [address] [place] [address] Discharge Summary Signed Patient: Karlene Vazquez MR#: [id number] : 1990 Acct:[id number] Age/Sex: 32 / F Adm Date: 3 Loc: Room: [address] [place] [address]: Baljinder Polanco MD Copies to: [...] Clear, Urine pH >= 9.0, Ur Specific [place] 1.013, Urine Protein Negative, Urine Glucose (UA) [...] % (Auto) 59.2, Lymph % (Auto) 32.3, [place] % (Auto) 6.8, Eos % (Auto) 0.9, Baso % (Auto) 0.8, Nucleat RBC Rel Count 0.2, Neut # (Auto) 4.9, Lymph # (Auto) 2.7, [place] # (Auto) 0.6, Eos # (Auto) 0.1, Baso # (Auto) 0.1, Monocyte Dist Width19.22 11/30/22 13:00: PHA Creatinine Clear 114.08, Sodium 138, Potassium 4.1, Pbwrnctv099, Carbon Dioxide 23.9, Anion Gap 14.2, BUN 9, Creatinine 0.83, Est GFR (CKD-EPI) > 60.0, Glucose 77, Calcium 9.5, Magnesium 1.9, Total Bilirubin 0.9, DirectBilirubin 0.00 L, Indirect Bilirubin 0.9, AST 11 L, ALT 16, Alkaline Orjvsabzokr17, Total Protein 7.6, Albumin 4.4, Globulin 3.2, [...] <Electronically signed by Baljinder Polanco MD> 12/01/22 4146 [facility] Work Phone: 1(652) 671-703409-19-2023 History and physical note Author Baljinder Polanco [facility] November 30, 2022 4:34pm Note Date/Time November 30, 2022 4:34pm [facility] [address] [place] [address] Hospitalist H&P Signed Patient: Karlene Vazquez MR#: [id number] : 1990 Acct:[id number] Age/Sex: 32 / F Adm Date: 3 Loc: Room: [address] [place] [address] Type: ADM IN Attending Dr: Baljinder Polanco [...] rub or JVD. Peripheral pulses present bilaterally. Ureis-xf-ppph ultrasound is unremarkable. Lungs are clear to [...] contributes to her symptoms. DVT prophylaxis Xarelto [facility] Medical History (Updated 11/30/22 @ 15:13 by [...] % (Auto) 32.3 % (.) 11/30/22 13:00 [place] % (Auto) 6.8 % (.) 11/30/22 13:00 Eos % (Auto) 0.9 % (.) 11/30/22 13:00 Baso % (Auto) 0.8 % (.) 11/30/22 13:00 Nucleat RBC Rel Count 0.2 /100 WBC (0-0.5) 11/30/22 13:00 Neut # (Auto) 4.9 x10E3/uL (1.8-7.7) 11/30/22 13:00 Lymph # (Auto) 2.7 x10E3/uL (1.00-4.8) 11/30/22 13:00 [place] # (Auto) 0.6 x10E3/uL (0.0-0.8) 11/30/22 13:00 [...] >= 9.0 (5.0-9.0) 11/30/22 16:04 Ur Specific [place] 1.013 (1.001-1.030) 11/30/22 16:04 Urine Protein Negative [...] signed by Baljinder Polanco MD> 11/30/22 1634 [facility] Work Phone: 1(424) 310-848809-18-2023 Evaluation note* Encounter Date Diagnosis Assessment Notes [...] - E03.9) 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 Complete all doses. Wash all belongings that came in contact with plant oils. May continue to use Calamine lotion. Patient verbalized understanding and agreement with treatment plan. [employer] Other 08-07-2023 Evaluation note* Encounter Date Diagnosis [...] to ER and Follow-up with me immediately. [employer] Other 07-07-2023 Evaluation note* Encounter Date Diagnosis Assessment Notes Treatment Notes Treatment Clinical Notes Sep, Overweight (ICD-10 - E66.3) Sep, Body mass index [BMI] 29.0-29.9, adult (ICD-10 - Z68.29) [employer] Other 06-29-2023 Evaluation note* Encounter Date Diagnosis Assessment Notes Treatment Notes Treatment Clinical Notes Aug, Acute contact dermatitis (ICD-10 - L25.9) Take medications as directed. Complete all doses. Wash all belongings that came in contact with plant oils. May continue to use Calamine lotion. Patient verbalized understanding and agreement with treatment plan. [employer] Other 04-05-2023 NoteOPERATIVE NOTE OPERATION DATE: 06/16/2022 PROCEDURE: Diagnostic laparoscopy. PREOPERATIVE DIAGNOSIS: Pelvic pain, left ovarian cyst. POSTOPERATIVE DIAGNOSIS: Pelvic pain, left ovarian cyst. ANESTHESIA: General. SURGEON: Brent Roland D.O. GREEN END DEPARTMENT SUPERVISOR: MIRNA Harden URINE OUTPUT: Yellow and clear. [...] taken to Recovery Room in stable condition.[id number] Hospital Discharge instructions Patient Education 05/21/2022 10:45:43 Kidney Stones, Rvmb-np-Cldw Kidney Stones Kidney stones are rock-like masses [...] Follow these instructions at home: Medicines Take gkww-yyu-toxjuds and prescription medicines only as told by [...] 08/16/2008 Document Revised: 07/17/2019 Document Reviewed: 07/17/2019 [employer]ianmi Patient Education 2020 [employer]. Follow Up Care 05/11/2022 13:32:37 With:LUCY STILES, Kamaljit Rivas, URL Address: [address] [place] [address]- When: Unknown [facility] 01-03-2023 Evaluation note* Encounter Date Diagnosis Assessment Notes Treatment Notes Treatment Clinical Notes Mar, Pharyngitis, unspecified etiology (ICD-10 - J02.9) New medications as directed. Increase fluids, rest, good hand washing. OTC for fever/discomfort. Tooth brush in the congregational care pastor or get a new one after on antibiotics for 24 hours. F/U if no improvement in the next 72 hours Mar, Vaginal yeast infection (ICD-10 - B37.31) Will treat empirically for yeast, discharge and sx reported consistent with that of vaginal candidiasis. Instructed patient to take as directed, advised that she should feel improvement in about 2 days. [employer] Other 11-02-2022 Hospital Discharge instructions Patient Education [...] 02/14/2013 Document Revised: 10/18/2018 Document Reviewed: 10/18/2018 [employer] Patient Education 2020 [employer]. Follow Up Care 01/11/2022 14:36:11 With:[facility] Address: [place] [address] Business (1) When: Unknown Comments:for procedure as scheduled [facility] 01-26-2022 Evaluation note* Encounter Date Diagnosis Assessment [...] Patient care instructions given in writting by [facility] Care At Home document. [place] [employer] Other Evaluation + Plan note No data available for this section [facility] evaluation + Plan note Future Appointments Appointment Date:09/03/2022 08:00:00 AM Scheduled Provider:Kamaljit ROMERO MD Location:[facility] Appointment Type:URO Office Visit [facility] evaluation + Plan note Future Appointments Appointment Date:12/28/2024 08:00:00 AM Scheduled Provider:Kamaljit ROMERO MD Location:[facility] Appointment Type:URO Office Visit [facility] Evaluation noteNo assessment information available [facility] Work Phone: Evaluation noteNo InformationNort [employer] Other Evaluation note* Diagnosis Onset Date Resolution Status Chest pain acute Tachycardia acute [facility] Work Phone: Evaluation note* Diagnosis Insulin resistance Other abnormal glucose Metabolic syndrome Dysmetabolic Syndrome X Hormone imbalance documented [facility] encounter [facility]* Diagnosis Onset Date Resolution Status Allergic reaction due to antibacterial drug acute Streptococcus pharyngitis ac rosebud [facility] Work Phone: Evaluation note* Diagnosis Onset Date Resolution Status Anxiety acute Thyroid disease acute Migraines acute Screening for lipid disorders acute Screening for metabolic disorder acute Screening, deficiency anemia, iron acute [facility] Work Phone: Evaluation note* Diagnosis Onset Date Resolution Status Migraines acute Screening for lipid disorders acute Screening for metabolic disorder acute Screening, deficiency anemia, iron acute Left knee pain acute [facility] Work Phone: evaluation note* Diagnosis Onset Date Resolution Status Migraines acute Screening for lipid disorders acute Screening for metabolic disorder acute Screening, deficiency anemia, iron acute Left knee pain acute Wellness examination acute Poison abena dermatitis acute [facility] Work Phone: Evaluation note* Diagnosis Pelvic pain documented in this encounter [facility] Healthcare[facility]* Diagnosis Pre-op evaluation Pelvic pain in female Unspecified symptom associated with female genital organs Pain of ovary H/O: hysterectomy Acquired absence of both cervix and uterus documented in this encounter [facility] HealthcareEvaluation note* Diagnosis Acute postoperative pain Other acute postoperative pain Postoperative follow-up Follow-up examination, following unspecified surgery Other insomnia documented in this encounter [facility] Mobile CaptainEvaluation note* Diagnosis Onset Date Resolution Status Admit Date Poison abena dermatitis acute Aug e 2024 1:43pm [facility] Work Phone: Evaluation note* Diagnosis Well woman exam with routine gynecological exam Routine gynecological examination Insulin resistance Other abnormal glucose Encounter for weight loss counseling documented in this encounter [facility] HealthcareHistory general Narrative - Reported* Type Description Date Medical History hypothyroidism Surgical History gallbladder removal Surgical History appendecs Surgical History ovarian cysts taken out in 2007 Surgical History hysterectomy Hospitalization History surgeries Hospitalization History child [employer] [employer] Other History general Narrative - Reported* Type Description Date Medical History hypothyroidism Surgical History gallbladder removal Surgical History appendecs Surgical History ovarian cysts taken out in 2007 Surgical History hysterectomy Hospitalization History surgeries Hospitalization History child Hospitalization History [facility] chest pain 11/2022 [employer] Other Hospital Discharge instructions Additional Instructions You have slightly elevated cholesterol level and prediabetes. Try to eat a healthier diet. Mediterranean diet is the best studied to improve health outcomes. I attached some instructions. Establish care with a primary care physician who will manage all your health issues.[facility] Work Phone: Progress note No data available for this section [facility] reason for referral (narrative)No reason for referral information availableC[facility] Work Phone: Advance Directives No Advanced Directives [...] End: September 07, 2023 Saniya Mays APRN GLUER-C Attending Provider Act ellie Start: September 07, 2023 End: September 07, 2023 Team Status: Inactive Member Role Status Dates Surya Hodges MD Primary Care Provide r, Attending Provider Active Start: October 03, 2023 End: October 03, 2023 Team Status: Inactive Member Role Status Dates Surya Hodges MD Primary Care Provider Active Start: October 10, 2023 End: October 10, 2023 Saniya Mays APRN GLUER-C Attending Provider Act ellie Start: October 10, [...] Polanco MD Admit Provider, Attending Provider Active Oversize Load Pilot Escort Relationship Specialty Start Date End Date Surya Hodges MD [address] [place] [address] PCP - General Family Medicine 09/27/22 Team Status: Active Member Role Status Dates Saniya Mays APRN GLUER-C Primary Care Provider Active Team Status: Inactive Member Role Status Dates Saniya Mays APRN GLUER-C Primary Care Provider, Attending Provider Active Start: February 15, 2024 End: February 15, 2024 Team Status: Inactive Member Role Status Dates Saniya Mays APRN GLUER-C Primary Care Provider, Attending Provider Active Start: March 15, 2024 End: March 15, 2024 Team Status: Inactive Member Role Status Dates Saniya Mays APRN GLUER-C Primary Care Provider, Attending Provider Active Start: May 16, 2024 End: May 16, 2024 Oversize Load Pilot Escort Relationship Specialty Start Date End Date Surya Hodges MD PCP - General Family Medicine 09/27/22 Oversize Load Pilot Escort Relationship Specialty Start Date End Date Surya Hodges MD [address] [facility] [place] [phone] PCP - General Family Medicine 09/27/22 Oversize Load Pilot Escort Relationship Specialty Start Date End Date Surya Hodges MD [address] [facility] [place] [phone] PCP - General Family Medicine 09/27/22 Oversize Load Pilot Escort Relationship Specialty Start Date End Date Surya Hodges MD [address] [facility] [place] [phone] PCP - General Family Medicine 09/27/22 Oversize Load Pilot Escort Relationship Specialty Start Date End Date Surya Hodges MD [address] [facility] [place] [phone] PCP - General Family Medicine 09/27/22 Oversize Load Pilot Escort Relationship Specialty Start Date End Date Surya Hodges MD [address] [facility] [place] [phone] PCP - General Family Medicine 09/27/22 Oversize Load Pilot Escort Relationship Specialty Start Date End Date Surya Hodges MD [address] [place] [phone] PCP - General Family Medicine 09/27/22 Team Status: Active Member Role Status Dates Saniya Mays APRN GLUER-C Primary Care Provider Active Start: July 23, 2024 Brent Roland DO Attending Provider Active Start : July 23, 2024 Team Status: Active Member Role Status Dates Saniya Mays APRN GLUER-Jocelyne Primary Care Provider Active Start: August 02, 2024 Brent Roland DO Attending Provider Active Start : August 02, 2024 Team Status: Active Member Role Status Dates Saniya Mays APRN GLUER-C Primary Care Provider Active Start: August 23, 2024 Kamaljit Romero MD Attending Provider Active St art: August 23, 2024 Team Status: Inactive Member Role Status Dates Saniya Mays APRN GLUER-C Primary Care Provider Active Start: September 05, 2024 End: September 05, 2024 TAYLOR Harry Attending Provider Act ellie Start: September 05, 2024 End: September 05, 2024 Oversize Load Pilot Escort Relationship Specialty Start Date End Date Surya Hodges MD [address] [place] [address] PCP - General Family Medicine 09/27/22 Oversize Load Pilot Escort Relationship Specialty Start Date End Date Surya Hodges MD [address] [place] [address] PCP - General Family Medicine 09/27/22 Team Status: Active Member Role Status Dates Saniya Mays APRN GLUER-C Primary Care Provider Active Start: October 09, 2024 Brent Roland DO Attending Provider Active Start : October 09, 2024 Team Status: Inactive Member Role Status Dates Saniya Mays APRN GLUER-C Primary Care Provider Active Start: October 29, 2024 End: October 29, 2024 Kamaljit Romero MD Attending Provider Active St art: October 29, 2024 End: October 29, 2024 Goals (unrecognized section and content) Goals may be documented in a n alternate section INFORMATION SOURCE (unrecogn ized section and content) DATE CREATED AUTHOR 07/01/2022 [facility] DATE CREATED AUTHOR AUTHOR'S ORGANIZ ATION 10/11/2024 [facility] EPIC DATE CREATED AUTHOR AUTHOR'S ORGANIZ ATION 10/31/2024 [facility] DATE CREATED AUTHOR AUTHOR'S ORGANIZ ATION 11/08/2024 [facility] FOR RECORDS PERTAINING TO PATIENTS WHO ARE [...] BE BASED ON THE PRIMARY CLINICAL RECORDS. [facility] Project [facility]. provides no warranty or guarantee of the accuracy or completeness of information in this document.
[2024-11-15] MEDS: SCOPOLAMINE 1 MG/3 DAYS TRANSDERM PATCH 1 PATCH TD (10:40)
[2024-11-15] MEDS: CEFAZOLIN SODIUM 2 GM/50 ML D5W PREMIX IV (12:47)
--- NOTE | 2024-11-15 13:51 | P.URON_ITS ---
Urology Surgery Operative Note Operative Note Procedure Date: 11/15/24 Time Out Performed: yes Pre-op Diagnosis: Left flank pain; recurrence of distal left ureteral stricture Post-op Diagnosis: same as pre-op Procedures performed: 1. Cystoscopy. 2. Left distal ureteral dilation with 8 and 10 Colombian dilators. 3. Left ureteroscopy. 4. Placement of 6 Colombian variable length left ureteral stent Anesthesia: General-LMA Primary Surgeon: Kamaljit Romero Complications: None Estimated blood loss (mL): 5 Findings: Recurrent distal left ureteral stricture Specimens: None Drains: 6 Colombian variable length left ureteral stent Indications for Procedures: This lady had a thick indurated distal ureteral stricture for which she was stented back on August 02, 2024. She was then rescoped a month later and a larger stent was placed at that time. That stent was then removed a month later and she did very well for 2 weeks. Her pain then recurred. Follow-up IVP suggested recurrence of ureteral stenosis in the distal left ureter. She now presents for cystoscopy, , ureteral dilation, ureteroscopy and left stent placement. She has signed an informed consent after risks were explained. Detailed description of Procedure: The patient was brought to the operating room and placed on the operating room table in the supine position. SCDs were placed on the lower extremities and turned on and functioning during the entire case. Timeout was done by all parties in the room. We all agreed upon the patient's identification and the planned procedures for this patient. Genn. anesthesia was then administered. The patient was then repositioned into the modified dorsal lithotomy position. All pressure points were satisfactorily padded. Genitalia were sterilely prepped and draped in usual fashion. I started by passing a 22 Colombian Olympus cystoscope per urethra and into the bladder. Panendoscopy in the bladder showed no evidence of any tumors or stones or mucosal lesions. I then passed a Glidewire through the scope and cannulated the left ureter and got it up into the kidney. There was an E flux of cloudy urine. Urine sample through the scope was then sent for culture and sensitivity. I then used rigid dilators and dilated her ureter with a 8 and 10 Colombian dilator. I could feel the dilator pop through a recurrent stricture. More cloudy debris then passed into the bladder. Cystoscope was removed. Semirigid ureteroscope was passed into the ureter adjacent to the wire. I could see the previous strictured area in the distal 3 cm of the ureter. It was now open from the dilation. It was indurated. I scoped proximally to the L5 area and back. No other findings were noted. The ureteroscope was removed. Cystoscope was backloaded over the wire and passed into the bladder and then I slid a 6 Colombian variable length stent over the wire up to the kidney. The wire was removed and there were good curls in the kidney and the bladder. Cloudy debris was now coming down through and around the stent into the bladder suggesting she had at least partial obstruction. Bladder was drained of its contents and the scope was then removed. She was then transferred to a [facility] bed and wheeled to PACU in stable condition. She will be discharged to home with a prescription for cephalexin for 5 days.
[2024-11-15] MEDS: SOLIFENACIN SUCCINATE 10 MG TABLET PO (14:02)
== END 2024-11-15 15:05 | disposition home or self-care (01) ==
LOC: SURGOUT 09:58
PROVIDERS: PCP Nurse Practitioner Family; Visit Provider Urology
PROC: (CPT 00910; principal; 2024-11-15 11:45)
DX: N13.5 Crossing vessel and stricture of ureter without hydronephrosis (principal); R10.9 Unspecified abdominal pain; F41.9 Anxiety disorder, unspecified; E03.9 Hypothyroidism, unspecified; Z87.442 Personal history of urinary calculi; Z90.49 Acquired absence of other specified parts of digestive tract; Z90.710 Acquired absence of both cervix and uterus; I10 Essential (primary) hypertension; E28.2 Polycystic ovarian syndrome
CPT/HCPCS: 00910; 52332; 52344; 36415; 76000; J0690; J1100; J1885; J2250; J2405; J2704; J3010

== ENCOUNTER 2024-12-07 13:34 | Outpatient (OUT) | payer BC, SELFPAY ==
--- OUTSIDE RECORDS SUMMARY | 2013-01-18 10:25 | XMS_ITS | Continuity of Care Document ---
Author Organization [facility] Address [address] [place] [address] Phone Care Team Providers Care Memorial Designer Name Role Phone Joaoi DO, Sanya Unavailable [...] Diagnoses Date Provider Providers Copied on Encounter [facility], [address] [place] [address], [place], [place], [id number] , [place] tel:[phone] [facility] No Information 3 Visci DO Sanya. [address] [place], [place], [id number] , [place]. tel: [phone] OFFICE/OUTPA TIENT VISIT, EST [facility], [address] [place], [place], [id number] , [place] tel: [phone] [facility] lab results (chief complaint) Genital herpes, unspecified 3 Abdulaziz Prince. [address] [place], [address], [place]. tel: [phone] PREV VISIT, NEW, AGE 18-39 [facility], [address] [place], [place], [id number] , [place] tel: [phone] [facility] annual visit (chief complaint) Gynecological ExaminationCandidiasi s of vulva and vaginaVaginitisHerpes simplex with other specified complications 3 Abdulaziz Prince. [address] [place], [address], [place]. tel: [phone] Family History Family Member Type Diagnosis Age [...]
--- OUTSIDE RECORDS SUMMARY | 2024-12-07 13:36 | XMS_ITS | Encounter Summary ---
Author Organization [facility] Address [address] [place] [address] Care Team Providers Care Sports Physical Therapist Name Role Phone Aminta Piper MD Primary Care Provider [phone] Kamaljit Romero MD Unavailable [phone] Source Comments In the event this information is protected by the Federal Confidentiality of Alcohol and Drug AbusePatient Records regulations: The Federal rules restrict any use of the information to criminally investigate or prosecute any alcohol or drug abuse patient.[facility] Encounter Details Date Type Department Care Team (Late st Contact Info) Description 11/21/2024 Patient Msg [facility] [address] [place] [address] Provider, [facility] Scheduling Information Social History Tobacco Use Types Packs/Day Years Used Date Smoking Tobacco: Never Assessed Area Deprivation Index Answer Date Jorge Luis rded National Score (1-100), lower number is lower ri sk 64 11/20/2024 State Score (1-10), lower number is lower risk 4 11/20/2024 Data from: https://www.neighborhoodatlas.medicine.[facility].edu/. Last address used for calculation [address] [place] [address] 11/20/2024 Comments No Sex and Gender Information Value Date Recorded Sex Assigned at Not on file Legal Sex Female 11:30 AM EST Gender Identity Not on file Sexual Orientation Not on file documented as of this encounter Plan of Treatment Upcoming Encounters Date Type Department Care Team (Latest Contact Info) Description 12/10/2024 2:00 PM EDT Office [place] [address] Pre-Op 12/31/2024 9:40 AM EDT PAT Pre Anesthesia [address] [place] [address] 2, Pacc [place] [address] [place] [address] Pre-Op, 01/07/2025, Dr. Sandra 12/31/2024 10:45 AM EDT Results Only [facility] [address] [facility] [place] [address] [place] first 12/31/2024 11:15 AM EDT Appointment Radiology [address] [place] [address] W/WO IV CON Pre-Op 01/07/2025 10:31 AM EDT Hospital Encounter Admitting [address] [place] [address] Brit Sandra MD [address] [place] [address] Ureteral stricture [N13.5] 01/07/2025 10:31 AM EDT - 01/07/2025 2:54 PM EDT Surgery Admitting [address] [place] [address] Brit Sandra MD [address] [place] [address] XI ROBOTIC LAPAROSCOPIC REIMPLANT URETER BLADDER W/ PSOAS HITCH OR BLADDER FLAP 02/05/2025 9:00 AM EST Office Visit Urology [address] [facility] [place] [address] Brit Sandra MD [address] [place] [address] Cysto Stent Removal Scheduled Procedures Name Priority Associated Diagnoses Date/Ti me XI ROBOTIC LAPAROSCOPIC REIMPLANT URETER BLADDER W/ PSOAS HITCH OR BLADDER FLAP Ureteral stricture 01/07/2025 10:31 AM EDT documented as of this encounter Goals Goal Patient Goal Type Associated Problems Recent Progress Patient-Stated? Author Autogenera jocelynn Goal Care Plan Autogenerated Problem No Walker Coord, Adri S documented as of this encounter Visit Diagnoses Not on filedocumented in this encounter Additional Health Concerns Active Problems Noted Date Diagnosed Date Autogenerated Problem 11/21/2024 documented as of this encounter Care Teams Sports Physical Therapist Relationship Specialty Start Date End Date Aminta Piper MD [address] [facility] [place] [address] PCP - General Family Medicine 01/21/14 Kamaljit Romero MD [address] [facility] [place] [address] Referring Urology 11/06/24 documented as of this encounter
--- OUTSIDE RECORDS SUMMARY | 2024-12-07 13:36 | XMS_ITS | Encounter Summary ---
Author Organization [facility] Address [facility] [place] [address] Care Team Providers Care Color Maker Dyer Name Role Phone Aminta Piper MD Primary Care Provider [phone] Kamaljit Romero MD Unavailable [phone] Source Comments In the event this information is protected by the Federal Confidentiality of Alcohol and Drug AbusePatient Records regulations: The Federal rules restrict any use of the information to criminally investigate or prosecute any alcohol or drug abuse patient.[facility] Reason for Visit * Reason Comments [place] Paperwork Encounter Details Date Type Department Care Team (Late st Contact Info) Description 12/05/2024 Telephone Urology [address] [place] [address] Jessica Pinto, RN [facility] Paperwork Social History Tobacco Use Types Packs/Day Years Used Date Smoking Tobacco: Never Assessed Area Deprivation Index Answer Date Jorge Luis rded National Score (1-100), lower number is lower ri sk 64 11/20/2024 State Score (1-10), lower number is lower risk 4 11/20/2024 Data from: https://www.neighborhoodatlas.medicine.[facility].edu/. Last address used for calculation [address] [place] [address] 11/20/2024 Comments No Sex and Gender Information Value Date Recorded Sex Assigned at Not on file Legal Sex Female 11:30 AM EST Gender Identity Not on file Sexual Orientation Not on file documented as of this encounter Miscellaneous Notes * Telephone Encounter - Jessica Pinto RN - 12/05/2024 1:17 PM EDT [place] paperwork completed, emailed to patient per request, and sent to be scanned into [employer]. documented in this encounter Plan of Treatment Upcoming Encounters Date Type Department Care Team (Latest Contact Info) Description 12/10/2024 2:00 PM EDT Office [place] [address] Pre-Op 12/31/2024 9:40 AM EDT PAT Pre Anesthesia [address] [place] [address] 2, Pacc [place] [address] [place] [id number] Pre-Op, 01/07/2025, Dr. Sandra 12/31/2024 10:45 AM EDT Results Only [facility] [address] [place] [address] ct first 12/31/2024 11:15 AM EDT Appointment Radiology [address] [place] [address] W/WO IV CON Pre-Op 01/07/2025 10:31 AM EDT Hospital Encounter Admitting [address] [place] [address] Brit Sandra MD [address] [place] [address] Ureteral stricture [N13.5] 01/07/2025 10:31 AM EDT - 01/07/2025 2:54 PM EDT Surgery Admitting [address] [place] [address] Brit Sandra MD [address] [place] [address] XI ROBOTIC LAPAROSCOPIC REIMPLANT URETER BLADDER W/ PSOAS HITCH OR BLADDER FLAP 02/05/2025 9:00 AM EST Office Visit Urology [address] [place] [address] Brit Sandra MD [address] [place] [address] Cysto Stent Removal Scheduled Procedures Name Priority [...] documented as of this encounter Care Teams Color Maker Dyer Relationship Specialty Start Date End Date Aminta Piper MD [address] [place] [address] PCP - General Family Medicine 01/21/14 Kamaljit Romero MD [address] [place] [address] Referring Urology 11/06/24 documented as of this encounter
--- OUTSIDE RECORDS SUMMARY | 2024-12-07 13:36 | XMS_ITS | Clinical Summary ---
Author Organization [facility] Address [address] [place], [place] [address] Care Team Providers Care Senior Maintenance Technician Name Role Phone Aminta Piper MD Primary Care Provider [phone] Kamaljit Romero MD Unavailable [phone] Allergies Active Allergy Reactions Criticality Noted Date Comments Clindamycin Hives 11/20/2024 Rash Dtap-Ipv Component 1 Of 2 (Pf) Intolerance 11/2024 Hives; Rash; Welt Medications cephALEXin (KEFLEX) 500 mg capsule Take 1 capsule by mouth every 12 hours. 11/16/19 25 Active levothyroxine (SYNTHROID) 137 mcg tablet Take 1 tablet by mouth once daily. Active mirabegron (MYRBETRIQ) 50 mg Tb24 Take 1 tablet by mouth once daily. 09/07/19 25 Active ibuprofen (MOTRIN) 800 mg tablet TAKE 1 TABLET BY MOUTH EVERY 8 HOURS NEEDED FOR MILD PAIN Active iv contrast (will be provided with radiology test) CT Urogram WO/W Inject, intravenously, once for 1 dose.No IV access, insert saline lock prior to the beginning of sedation, infusion, injection of imaging exam. Discontinue saline lock post exam. If Pt. has a central line or IVAD, may access for administration according to line specific nursing protocol. Once exam is complete flush line and de-access according to line specific nursing protocol in the CT contrast administration guidelines link. 1 each 11/22/19 25 025 0.9 % sodium chloride (NACL 0.9%) infusion Administer at rate defined per CT contrast administration specifications. To be provided with radiology test. 150 mL 11/22/19 25 025 Encounters Date Type Department Care Team Description 12/05/2024 Telephone Urology [address] [place] [address] Jessica Pinto, FABBY FMLA Paperwork 12/04/2024 Travel 11/21/2024 Get Medical Advice Urology [address] [place] [address] Brit Sandra MD Medication 11/21/2024 Patient Msg [facility] [address] [place] [address] Provider, [facility] Scheduling Information 11/21/2024 Patient Update Urology [address] [address] Brit Sandra MD 11/20/2024 10:00 AM EDT Office Visit Urology [address] [place] [address] Brit Sandra MD Flank pain (Primary Dx); Ureteral stricture; H/O: hysterectomy 11/20/2024 Travel from Last 3 Months Social History Tobacco Use Types Packs/Day Years Used Date Smoking Tobacco: Never Assessed Area Deprivation Index Answer Date Jorge Luis rded National Score (1-100), lower number is lower ri sk 64 11/20/2024 State Score (1-10), lower number is lower risk 4 11/20/2024 Data from: https://www.neighborhoodatlas.medicine.[facility].edu/. Last address used for calculation [address] [place] [address] rd [address] 11/20/2024 Comments No Sex and Gender Information Value Date Recorded Sex Assigned at Not on file Legal Sex Female 11:30 AM EST Gender Identity Not on file Sexual Orientation Not on file Last Filed Vital Signs Vital Sign Reading Time Taken Comments Blood Pressure 133/93 11/20/2024 10:04 AM EDT Pulse - - Temperature - - Respiratory Rate - - Oxygen Saturation - - Inhaled Oxygen Concentration - - Weight - - Height - - Body Mass Index - - Plan of Treatment Upcoming Encounters Date Type Department Care Team (Latest Contact Info) Description 12/10/2024 2:00 PM EDT Office Visit Financial Clearance Phone Screening [facility] Pre-Op 12/31/2024 9:40 AM EDT PAT Pre Anesthesia [address] [place] [address] 2, [address] [place] [address] [address] Pre-Op, 01/07/2025, Dr. Sandra 12/31/2024 10:45 AM EDT Results Only [place] [address] [place] [address] ct first 12/31/2024 11:15 AM EDT Appointment Radiology [address] [place] [address] W/WO IV CON Pre-Op 01/07/2025 10:31 AM EDT Hospital Encounter Admitting [address] [place] [address] Brit Sandra MD [address] [place] [address] Ureteral stricture [N13.5] 01/07/2025 10:31 AM EDT - 01/07/2025 2:54 PM EDT Surgery Admitting [address] [place] [address] Brit Sandra MD [address] [place] [address] XI ROBOTIC LAPAROSCOPIC REIMPLANT URETER BLADDER W/ PSOAS HITCH OR BLADDER FLAP 02/05/2025 9:00 AM EST Office Visit Urology [address] [place] [address] Brit Sandra MD [address] [place] [address] Cysto Stent Removal Scheduled Procedures Name Priority Associated Diagnoses Date/Ti me XI ROBOTIC LAPAROSCOPIC REIMPLANT URETER BLADDER W/ PSOAS HITCH OR BLADDER FLAP Ureteral stricture 01/07/2025 10:31 AM EDT Health Maintenance Due Date Last Done Comments Anxiety Screening 06/10/2007 Depression Screening 06/10/2007 HIV Screening 06/10/2007 Hepatitis C Screening 06/10/2007 DTaP,Tdap,Td Vaccine (1 - Tdap) 2008 Hepatitis B Vaccine (1 of 3 - 19+ 3-dose series) 06/09 Cervical Cancer Screening 2010 HPV Vaccine (1 - 3-dose SCDM series) 2016 Influenza Vaccine (#1) 2024 Goals Goal Patient Goal Type Associated Problems Recent Progress Patient-Stated? Author Autogenera jocelynn Goal Care Plan Autogenerated Problem No Walker Adri Guy Procedures Procedure Name Priority Date/Time Associated Diagnosis Comments XR OUTSIDE CD DICOM IMPORT 10/29/2024 from Last 3 Months Results * SR-XR IVP IMPORT (10/29/2024) Anatomical Region Laterality Modality Other 10/29/2024 Narrative 11/07/2024 12:27 PM EDT Images were obtained outside of [facility] Procedure Note Provider, [facility] [place] - 11/07/2024 Images were obtained outside of [facility] Cc Provider RADIOLOGY Final Result from Last 3 Months Additional Health Concerns Active Problems Noted Date Diagnosed Date Autogenerated Problem 11/21/2024 Insurance [employer] PPO Care Teams Senior Maintenance Technician Relationship Specialty Start Date End Date Aminta Piper MD [address] [place] [address] PCP - General Family Medicine 01/21/14 Kamaljit Romero MD [address] [place] [address] Referring Urology 11/06/24
--- OUTSIDE RECORDS SUMMARY | 2024-12-07 13:36 | XMS_ITS | Encounter Summary ---
Author Organization [facility] Address [address] [facility] [place] [address] Care Team Providers Care Assistant Plant Control Operator Name Role Phone Aminta Piper MD Primary Care Provider [phone] Reason for Visit * Reason Comments Med Refill Encounter Details Date Type Department Care Team (Late st Contact Info) Description 08/05/2024 Refill [facility] [address] [place] [id number] Brent Roland DO [address] [facility] [address] Wiliam Lombardo, [facility] Social History Tobacco Use Types [...] as of this encounter Plan of Treatment Not on file documented as of this encounter Visit Diagnoses Not on filedocumented in this encounter Care Teams Assistant Plant Control Operator Relationship Specialty Start Date End Date Aminta Piper MD [address] [place] [address] PCP - General Family Medicine 09/27/22 documented as of this encounter
--- OUTSIDE RECORDS SUMMARY | 2024-12-07 13:36 | XMS_ITS | Encounter Summary ---
Author Organization [facility] Address [address] [place] [facility] [place] [address] Care Team Providers Care Station Installer And Repairer Name Role Phone Aminta Piper MD Primary Care Provider [phone] Encounter Details Date Type Department Care Team (Late st Contact Info) Description 08/02/2024 Abstract [facility] [address] [place] [phone] Brent Roland DO [address] [facility] [address]iliam Lombardo, [facility] Social History Tobacco Use Types [...] on filedocumented in this encounter Care Teams Station Installer And Repairer Relationship Specialty Start Date End Date Aminta Piper MD [address] [place] [address] PCP - General Family Medicine 09/27/22 documented as of this encounter
--- OUTSIDE RECORDS SUMMARY | 2024-12-07 13:36 | XMS_ITS | Encounter Summary ---
Author Organization [facility] Address [address] [facility] [place] [address] Care Team Providers Care Truss Maker Name Role Phone Aminta Piper MD Primary Care Provider [phone] Encounter Details Date Type Department Care Team (Late st Contact Info) Description 03/03/2023 Abstract [facility] [place] [facility] [address] [place] [phone] Tabby Evans LPN [address] [place] [id number] Social History Tobacco Use Types Packs/Day Years [...] on filedocumented in this encounter Care Teams Truss Maker Relationship Specialty Start Date End Date Aminta Piper MD [address] [place] [address] PCP - General Family Medicine 09/27/22 documented as of this encounter
--- OUTSIDE RECORDS SUMMARY | 2024-12-07 13:36 | XMS_ITS | Encounter Summary ---
Author Organization [facility] Address [address] [place] [address] Care Team Providers Care Director Of Speech Pathology Name Role Phone Aminta Piper MD Primary Care Provider [phone] Kamaljit Romero MD Unavailable [phone] Source Comments In the event this information is protected by the Federal Confidentiality of Alcohol and Drug AbusePatient Records regulations: The Federal rules restrict any use of the information to criminally investigate or prosecute any alcohol or drug abuse patient.[facility] Encounter Details Date Type Department Care Team (Latest Contact Info) Description 12/04/2024 Travel Social History Tobacco Use Types Packs/Day Years Used Date Smoking Tobacco: Never Assessed Area Deprivation Index Answer Date Jorge Luis rded National Score (1-100), lower number is lower ri sk 64 11/20/2024 State Score (1-10), lower number is lower risk 4 11/20/2024 Data from: https://www.neighborhoodatlas.medicine.[facility].edu/. Last address used for calculation [address] [place] [address] 11/20/2024 Comments No Sex and Gender Information Value Date Recorded Sex Assigned at Not on file Legal Sex Female 11:30 AM EST Gender Identity Not on file Sexual Orientation Not on file documented as of this encounter Plan of Treatment Upcoming Encounters Date Type Department Care Team (Latest Contact Info) Description 12/10/2024 2:00 PM EDT Office [place] [address] Pre-Op 12/31/2024 9:40 AM EDT PAT Pre Anesthesia [address] [place] [address] 2, Pacc [place] [address] [place] [address] Pre-Op, 01/07/2025, Dr. Sandra 12/31/2024 10:45 AM EDT Results Only [place] [facility] [address] [place] [address] ct first 12/31/2024 11:15 AM EDT Appointment Radiology [address] [place] [address] W/WO IV CON Pre-Op 01/07/2025 10:31 AM EDT Hospital Encounter Admitting [address] [place] [address] Brit Sandra MD [address] [place] [id number] Ureteral stricture [N13.5] 01/07/2025 10:31 AM EDT - 01/07/2025 2:54 PM EDT Surgery Admitting [address] [place] [address] Brit Sandra MD [address] [place] [id number] XI ROBOTIC LAPAROSCOPIC REIMPLANT URETER BLADDER W/ PSOAS HITCH OR BLADDER FLAP 02/05/2025 9:00 AM EST Office Visit Urology [address] [place] [address] Brit Sandra MD [address] [place] [address] Cysto Stent Removal Scheduled Procedures Name Priority Associated Diagnoses Date/Ti me XI ROBOTIC LAPAROSCOPIC REIMPLANT URETER BLADDER W/ PSOAS HITCH OR BLADDER FLAP Ureteral stricture 01/07/2025 10:31 AM EDT documented as of this encounter Goals Goal Patient Goal Type Associated Problems Recent Progress Patient-Stated? Author Autogenera jocelynn Goal Care Plan Autogenerated Problem No Walker Adri Guy documented as of this encounter Visit Diagnoses Not on filedocumented in this encounter Additional Health Concerns Active Problems Noted Date Diagnosed Date Autogenerated Problem 11/21/2024 documented as of this encounter Care Teams Director Of Speech Pathology Relationship Specialty Start Date End Date Aminta Piper MD [address] [place] [address] PCP - General Family Medicine 01/21/14 Kamaljit Romero MD [address] [place] [address] Referring Urology 11/06/24 documented as of this encounter
--- OUTSIDE RECORDS SUMMARY | 2024-12-07 13:36 | XMS_ITS | Encounter Summary ---
Author Organization [facility] Address [address] [place] [address] Care Team Providers Care Engineering Team Supervisor Name Role Phone Aminta Piper MD Primary Care Provider [phone] Reason for Visit * Reason Comments Med Refill Encounter Details Date Type Department Care Team (Late st Contact Info) Description 02/23/2023 Refill [facility] [address] [place] [address] Brent Roland DO [address] [facility] [facility] [address] Wiliam Lombardo, [facility]11 Vaginal yeast infection Social History Tobacco Use [...] documented in this encounter Plan of Treatment Not on file documented as of this encounter Visit Diagnoses Diagnosis Vaginal yeast infection Candidiasis of vulva and vagina documented in this encounter Care Teams Engineering Team Supervisor Relationship Specialty [place] [address] [place] [phone] PCP - General Family Medicine 09/27/22 documented as of this encounter
--- OUTSIDE RECORDS SUMMARY | 2024-12-07 13:36 | XMS_ITS | Encounter Summary ---
Author Organization [facility] Address [address] [place] [address] Care Team Providers Care Sales Account Leader Name Role Phone Aminta Piper MD Primary Care Provider [phone] Kamaljit Romero MD Unavailable [phone] Source Comments In the event this information is protected by the Federal Confidentiality of Alcohol and Drug AbusePatient Records regulations: The Federal rules restrict any use of the information to criminally investigate or prosecute any alcohol or drug abuse patient.[facility] Encounter Details Date Type Department Care Team (Late st Contact Info) Description 11/21/2024 Get Medical Advice Urology [address] [place] [address] Brit Sandra MD [address] [place] [address] Medication Social History Tobacco Use Types Packs/Day Years Used Date Smoking Tobacco: Never Assessed Area Deprivation Index Answer Date Jorge Luis rded National Score (1-100), lower number is lower ri sk 64 11/20/2024 State Score (1-10), lower number is lower risk 4 11/20/2024 Data from: https://www.neighborhoodatlas.[facility]/. Last address used for calculation [address] [place] [address] 81 11/20/2024 Comments No Sex and Gender Information Value Date Recorded Sex Assigned at Not on file Legal Sex Female 11:30 AM EST Gender Identity Not on file Sexual Orientation Not on file documented as of this encounter Plan of Treatment Upcoming Encounters Date Type Department Care Team (Latest Contact Info) Description 12/10/2024 2:00 PM EDT Office Visit [place] [address] Pre-Op 12/31/2024 9:40 AM EDT PAT Pre Anesthesia [address] [place] [address] 2, Pacc [place] [address] [place] [address] Pre-Op, 01/07/2025, Dr. Sandra 12/31/2024 10:45 AM EDT Results Only [facility] [address] [place] [address] [place] first 12/31/2024 11:15 AM EDT Appointment Radiology [address] [place] [address] W/WO IV CON Pre-Op 01/07/2025 10:31 AM EDT Hospital Encounter Admitting [address] [place] [address] Brit Sandra MD [address] [place] [id number] Ureteral stricture [N13.5] 01/07/2025 10:31 AM EDT - 01/07/2025 2:54 PM EDT Surgery Admitting [address] [place] [address] Brit Sandra MD [address] [place] [id number] XI ROBOTIC LAPAROSCOPIC REIMPLANT URETER BLADDER W/ PSOAS HITCH OR BLADDER FLAP 02/05/2025 9:00 AM EST Office Visit Urology [address] [place] [address] Brit Sandra MD [address] [address] Cysto Stent Removal Scheduled Procedures Name Priority [...] documented as of this encounter Care Teams Sales Account Leader Relationship Specialty Start Date End Date Aminta Piper MD [address] [place] [address] PCP - General Family Medicine 01/21/14 Kamaljit Romero MD [address] [place] [address] Referring Urology 11/06/24 documented as of this encounter
--- OUTSIDE RECORDS SUMMARY | 2024-12-07 13:36 | XMS_ITS | Encounter Summary ---
Author Organization [facility] Address [address] [facility] [place] [address] Care Team Providers Care Retail And Restaurant Associate Name Role Phone Aminta Piper MD Primary Care Provider [phone] Encounter Details Date Type Department Care Team (Late st Contact Info) Description 07/27/2024 Abstract [facility] [address] [place] [address] [place] [phone] Kenyatta Salazar MA Social History Tobacco Use [...] on filedocumented in this encounter Care Teams Retail And Restaurant Associate Relationship Specialty Start Date End Date Aminta Piper MD [address] [facility] [place] [address] PCP - General Family Medicine 09/27/22 documented as of this encounter
--- OUTSIDE RECORDS SUMMARY | 2024-12-07 13:36 | XMS_ITS | Encounter Summary ---
Author Organization [facility] Address [address] [place] [address] Care Team Providers Care Creasing And Cutting Press Feeder Name Role Phone Aminta Piper MD Primary Care Provider [phone] Encounter Details Date Type Department Care Team (Late st Contact Info) Description 10/26/2024 Abstract [facility] [address] [facility] [place] [phone] Brent Roland DO [address] [facility] [address] [place]iliam [place], [facility]11 Social History Tobacco Use Types Packs/Day [...] on filedocumented in this encounter Care Teams Creasing And Cutting Press Feeder Relationship Specialty Start Date End Date Aminta Piper MD [address] [place] [address] PCP - General Family Medicine 09/27/22 documented as of this encounter
--- OUTSIDE RECORDS SUMMARY | 2024-12-07 13:37 | XMS_ITS | Encounter Summary ---
Author Organization [facility] Address [address] [place] [address] Care Team Providers Care Quality Control Microbiology Supervisor Name Role Phone Aminta Piper MD Primary Care Provider [phone] Encounter Details Date Type Department Care Team (Late st Contact Info) Description 10/16/2024 Orders Only [facility] [place] [facility] [address] [place] [phone] Ashley Nicole LPN [address] [place] [id number] Social History Tobacco Use Types Packs/Day Years [...] on file documented as of this encounter Procedures Procedure Name Priority Date/Time Associated Diagnosis Comments PAP SMEAR Routine 10/09/2024 12:00 AM EDT documented in this encounter Results * Pap Smear (10/09/2024 12:00 AM EDT) Swab Cervical swab / Unknown us Brent Asuncion DO LAB CYTOLOGY ORDERABLES Final Re sult EXTERNAL LAB documented in this encounter Visit Diagnoses Not on filedocumented in this encounter Care Teams Quality Control Microbiology Supervisor Relationship Specialty Start Date End Date Aminta Piper MD [address] [place] [address] PCP - General Family Medicine 09/27/22 documented as of this encounter
--- OUTSIDE RECORDS SUMMARY | 2024-12-07 13:37 | XMS_ITS | Clinical Summary ---
Author Organization [facility] Address [address] [place] [address] Care Team Providers Care Threat Monitoring Analyst Name Role Phone Aminta Piper MD Primary Care Provider Allergies Active Allergy Reactions Criticality Noted Date Comments Azithromycin Rash Low 07/12/2024 Clindamycin Rash Low 09/23/2022 Ipsisjs-Arotgf-Tdsdk Pertussis Swelling 09/23 Tetanus-Diphtheria Toxoids Td Other 2024 Medications levothyroxine (Synthroid, Levoxyl) 137 MCG tablet Take 137 mcg by mouth in the morning. Take before meals. 3 Active liothyronine (Cytomel) 5 MCG tabletIndication s:Hypothyroidism , unspecified TAKE 1 TABLET BY MOUTH DAILY. 90 tablet 1 5 Active tamsulosin (Flomax) 0.4 MG 24 hr capsule Take 0.4 mg by mouth Daily Active ibuprofen 800 MG tabletIndication s:Pelvic pain TAKE 1 TABLET BY MOUTH EVERY 8 HOURS NEEDED FOR MILD PAIN 60 tablet 3 5 Active fluconazole (Diflucan) 150 MG tabletIndication s:Yeast infection TAKE 1 TABLET BY MOUTH FOR ONE SINGLE DOSE 1 tablet 3 5 Active phentermine (Adipex-P) 37.5 MG tabletIndication s:Encounter for weight loss counseling Take 1 tablet (37.5 mg) by mouth in the morning. Take before meals. 30 tablet 5 Active metFORMIN XR (Glucophage-XR) 500 MG 24 hr tabletIndication s:Insulin resistance Take 2 tablets (1,000 mg) by mouth in the evening. Take with meals Do not crush, chew, or split. 60 tablet 11 5 10/10/19 26 Active estradiol (Climara) 0.025 MG/24HRIndicatio ns:Hormone imbalance Place 1 patch over 7 days on the skin 1 (one) time per week 12 patch 3 5 11/22/19 26 Active progesterone (Prometrium) 100 MG capsuleIndicatio ns:Hormone imbalance Take 1 capsule (100 mg) by mouth Daily 30 capsule 11 5 12/22/19 25 Active Tirzepatide (Mounjaro) 2.5 MG/0.5ML solution auto-injectorInd ications:Insulin resistance,Encou nter for weight loss counseling Inject 0.5 mL under the skin 1 (one) time per week 2 mL 5 11/24/19 25 Active Problems Problem Noted Date Diagnosed Date Acute postoperative pain 08/14/2024 Postoperative follow-up 08/14/2024 Encounters Date Type Department Care Team Description 11/21/2024 Telephone [facility] [address] [place] [address] Laney Chow LPN 10/29/2024 Telephone [facility] [address] [facility] [place] [address] Hedy Carter MA 10/26/2024 Abstract [facility] [address] [facility] [address] Brent Roland DO 10/24/2024 Refill [facility] [address] [place] [address] Brent Roland DO Insulin resistance; Encounter for weight loss counseling 10/23/2024 Refill [facility] [address] [place] [phone] Brent Roland DO Insulin resistance; Encounter for weight loss counseling 10/23/2024 [facility]ill [facility] [address] [facility] [place] [address] Brent Roland DO Insulin resistance; Encounter for weight loss counseling 10/18/2024 Abstract [facility] [address] [facility] [place] [place] [phone] Kenyatta Salazar MA 10/16/2024 Orders Only [facility] [address] [facility] [place] [address] Ashley Nicole LPN 10/09/2024 1:00 PM EDT Office Visit [facility] [address] [place] [address] Brent Roland DO Well woman exam with routine gynecological exam; Insulin resistance; Encounter for weight loss counseling 10/09/2024 Clinisync Result Encounter [facility] External Department Unsolicited Brent Roland, 10/09/2024 Bamboo flowsheet [facility] [address] [facility] [place] [address] Brent Roland DO 09/30/2024 Refill [facility] [place] [facility] [address] [facility] [place] [place] [address] Brent Roland DO Yeast infection from Last 3 Months Family History Medical [...] Sign Reading Time Taken Comments Blood Pressure 122/82 10/09/2024 1:09 PM EDT Pulse 79 06/21/2023 2:48 PM EDT Temperature - - Respiratory Rate 18 06/21/2023 2:48 PM EDT Oxygen Saturation 96% 06/21/2023 2:48 PM EDT Inhaled Oxygen Concentration - - Weight 97.8 kg (215 lb 8 oz) 10/09/2024 1:09 PM EDT Height 177.8 cm (5' 10 ) 06/21/2023 2:48 PM EDT Body Mass Index 30.92 06/21/2023 2:48 PM EDT Plan of Treatment Health Maintenance Due Date Last Done Comments HPV/Cotest 06/10/2019 Influenza Vaccine (#1) 2024 Cervical Cancer Screening 10/10/2027 Pap Smear 10/10/2027 10/09/2024, 12/28/2022 Procedures Procedure Name Priority Date/Time Associated Diagnosis Comments IGP,APTIMA HPV,AGE GDLN Routine 10/09/2024 12:58 PM EDT PAP SMEAR Routine 10/09/2024 12:00 AM EDT from Last 3 Months Results * IGP,APTIMA HPV,AGE GDLN (10/09/2024 12:58 PM EDT) AGE GDLN ACOG TESTING Note . [facility] Comment: TESTS RESULT FLAG UNITS REF RANGE LAB Clinician Provided Cytology Information Source.............Vagina No. of containers..01 ThinPrep Vial Age Algo ACOG Olga... 30-65 01 FLAG LEGEND: L-Low Normal,H-High Normal,LL-Alert Low,HH-Alert High <-Panic Low,>-Panic High,A-Abnormal,AA-Critical Abnormal Performed at: 01 =[facility] [address] [place] [address] Ernestina Carballo MD, IGP, APTIMA HPV, RFX 16/18,45 Note . [facility] Comment: TESTS RESULT FLAG UNITS REF RANGE LAB DIAGNOSIS: 02 NEGATIVE FOR INTRAEPITHELIAL LESION OR MALIGNANCY. Specimen adequacy: 02 Satisfactory for evaluation. No endocervical component is identified. Performed by: Tierra Taylor, Refrigerator Repairman ([facility]) . 02 Note: Note 02 The [...] <-Panic Low,>-Panic High,A-Abnormal,AA-Critical Abnormal Performed at: [address] [phone] Ernestina Carballo MD, HPV APTIMA Negative Negative [facility] Comment: This nucleic acid amplification test detects fourteen high- risk HPV types (16,18,31,33,35,39,45,51,52,56,58,59,66,68) without differentiation. Performed at: =[facility] [id number] Manager Medicaid: Ernestina Carballo MD, Phone: [phone] Performed at: [facility] [address] [id number] Manager Medicaid: Ernestina Carballo MD, Phone: [phone] 10/09/2024 12:5 8 PM EDT 10/09/2024 7:59 PM EDT Narrative [facility] - 10/12/2024 8:08 PM EDT SPATULA-ALONE VAGINA Brent Asuncion DO LAB BLOOD ORDERABLES Final Resul t [facility] * Pap Smear (10/09/2024 12:00 AM EDT) Swab Cervical swab / Unknown Brent Asuncion DO LAB CYTOLOGY ORDERABLES Final Re sult EXTERNAL LAB from Last 3 Months Insurance [facility] Care Teams Threat Monitoring Analyst Relationship Specialty Start Date End Date Aminta Piper MD [address] [place] [address] PCP - General Family Medicine 09/27/22
--- OUTSIDE RECORDS SUMMARY | 2024-12-07 13:37 | XMS_ITS | Encounter Summary ---
Author Organization [facility] Address [address] [facility] [place] [address] Care Team Providers Care Sand Miller Name Role Phone Aminta Piper MD Primary Care Provider [phone] Encounter Details Date Type Department Care Team (Late st Contact Info) Description 10/18/2024 Abstract [facility] [address] [place] [address] [place] [phone] Kenyatta Salazar MA Social History Tobacco Use [...] on filedocumented in this encounter Care Teams Sand Miller Relationship Specialty Start Date End Date Aminta Piper MD [address] [facility] [place] [address] PCP - General Family Medicine 09/27/22 documented as of this encounter
--- OUTSIDE RECORDS SUMMARY | 2024-12-07 13:37 | XMS_ITS | Encounter Summary ---
Author Organization [facility] Address [address] [facility] [place] [address] Care Team Providers Care Lead Performance Support Analyst Name Role Phone Aminta Piper MD Primary Care Provider [phone] Encounter Details Date Type Department Care Team (Late st Contact Info) Description 09/24/2022 Abstract [facility] [address] [facility] [address] Yesica Mcnair PA [address] [facility] [address] [place], [place] [address] Social History Tobacco Use Types Packs/Day Years [...] on filedocumented in this encounter Care Teams Lead Performance Support Analyst Relationship Specialty Start Date End Date Aminta Piper MD [address] [place] [phone] PCP - General Family Medicine 09/27/22 documented as of this encounter
--- OUTSIDE RECORDS SUMMARY | 2024-12-07 13:40 | XMS_ITS | CCD ---
Author Organization [facility] Care Team Providers Care Transit Specialist Name Role Phone Treasure Quezada Unavailable SURYA HODGES Primary Care Physician MD Surya Hodges Primary Care Provider KTIA Quezada Attending Provider Surya Hodges Unavailable ASUNCION ., DR SEYMOUR Admitting Unavailable TRACIE, DR SURYA Dejesus Primary Care Unavailable BRIDGETTE PATEL Consulting Unavailable ASUNCION ., DR SEYMOUR Attending Unavailable ASUNCION ., DR SEYMOUR Admitting Unavailable ASUNCION ., DR SEYMOUR Consulting Unavailable TRACIE, DR SURYA Dejesus Primary Care Unavailable ASUNCION ., DR SEYMOUR Attending Unavailable CHELSEA PINOT Consulting Unavailable BO II, MATHEW Consulting Unavailable ASUNCION ., DR SEYMOUR Admitting Unavailable ASUNCION ., DR SEYMOUR Consulting Unavailable TRACIE, DR SURYA Dejesus Primary Care Unavailable ASUNCION ., DR SEYMOUR Attending Unavailable LUE .JULIETH Attending Unavailable LUE .JULIETH Admitting Unavailable LUE .JULIETH Consulting Unavailable TRACIE, DR SURYA Dejesus Primary Care Unavailable AYALA ., DR NAQVI Attending Unavailable AYALA ., DR NAQVI Admitting Unavailable AYALA ., DR NAQVI Consulting Unavailable ZIEBER, DR DAVID Rivas Consulting Unavailable ASUNCION ., DR SEYMOUR Admitting Unavailable ASUNCION ., DR SEYMOUR Consulting Unavailable TRACIE, DR SURYA Dejesus Primary Care Unavailable ASUNCION ., DR SEYMOUR Attending Unavailable TRACIE, DR SURYA Dejesus Primary Care Unavailable AYALA ., DR NAQVI Attending Unavailable AYALA ., DR NAQVI Admitting Unavailable TRACIE, DR SURYA Dejesus Primary Care Unavailable BRINA [...] ASUNCION ., DR SEYMOUR Admitting Unavailable Kayla Gordon Consulting Unavailable KORI, BRINA Admitting Unavailable KORI, BRINA Attending Unavailable TRACIE, DR SURYA Dejesus Primary Care Unavailable TRACIE, DR SURYA Dejesus Primary Care Unavailable LIMA, DR CROW Rivas Admitting Unavailable LIMA, DR CROW Rivas Consulting Unavailable LIMA, DR CROW Rivas Attending Unavailable MAGI BAUER Consulting Unavailable LEATHA GALVAN Consulting Unavailable RERE CARLISLE Consulting Unavailable MD Surya Hodges Primary Care Provider DO Marcio Steven Emergency Provider [phone] MD Baljinder Polanco Admit Provider MD Baljinder Polanco Attending Provider [phone] Jason Beasley Unavailable Surya Hodges MD Primary Care Provider Surya Hodges MD Primary Care Provider [phone] Surya Hodges MD Primary Care Provider Saniya Mays APRN Primary Care Provider Brent Roland DO Attending Provider [phone] Kamaljit Ayala MD Attending Provider Saniya Mays APRN Attending Provider BRENT ROLAND Attending Unavailable CIRO ROLANDY Attending Unavailable YESICA MCNAIR Attending Unavailable ASUNCION, BRENT Attending Unavailable Saniya Mays APRN Primary Care Provider Asuncion MERCADO, Brent Attending Provider Saniya Mays Primary Care Unavailable Kamaljit Ayala Unavailable Kamaljit Ayala Admitting Unavailable Surya Hodges MD Primary Care Provider Kamaljit Ayala MD Unavailable [phone] AYALA, Kamaljit R Attending Unavailable AYALA, Kamaljit R Attending Unavailable AYALA, Kamaljit R Attending Unavailable AYALA, Kamaljit R Attending Unavailable AYALA, Kamaljit R Referring Unavailable AYALA, Kamaljit R Attending Unavailable AYALA, Kamaljit R Attending Unavailable AYALA, Kamaljit R Attending Unavailable AYALA, Kamaljit R Attending Unavailable SURYA HODGES Primary Care Unavailable NATO HAWKINS Attending Unavailable Allergies Allergy Classification Reported Allergen(s) Allergy Type Date of Onset Reaction(s) Facility (20 sources) Azithromycin; Translations: [azithromycin] Drug Allergy 05-04-19 rash, Eruption of skin (disorder) [facility] (20 sources) whooping cough Propensity to adverse reactions 04-04-19 swelling injection site [facility] (16 sources) Bordetella pertussis filamentous hemagglutinin vaccine, inactivated / Bordetella pertussis fimbriae 2/3 vaccine, inactivated / Bordetella pertussis pertactin vaccine, inactivated / Bordetella pertussis toxoid vaccine, inactivated / diphtheria toxoid vaccine, inactivated / tetanus toxoid vaccine, inactivated; Translations: [diphtheria/pertu ssis, acel/tetanus adult] Drug Allergy 03-14-19 Unknown, Comment:amrit dejesus [facility] (20 sources) Clindamycin; Translations: [clindamycin] Drug Allergy 03-14-19 Rash, Hives [facility] Comment on above: Onset Date: 03/14/19 20 (2 sources) acellular pertussis vaccine, inactivated / diphtheria toxoid vaccine, inactivated / tetanus toxoid vaccine, inactivated Drug Allergy [facility] (2 sources) Clindamycin Drug Allergy [facility] (10 sources) vaccine adjuvant system, AS01B liposomal Allergy to substance 12-01-19 23 Rash [facility] (17 sources) Cihxtcn-Tscraa-Hj ell Pertussis Propensity to adverse reactions 09-24-19 23 Swelling [facility] Work Phone: (9 sources) diphtheria,pertus sis (acellular),te Allergy to substance 05-04-19 Comment:amrit dejesus [facility] Comment on above: Onset Date: 03/14/19 20 (8 sources) Penicillins Allergy to substance 06-17-19 24 [facility] (11 sources) Tetanus-Diphtheri a Toxoids Td Drug Allergy 07-13-19 25 Other [facility] (3 sources) Dtap-Ipv Component 1 Of 2 (Pf); Translations: [DTAP-IPV COMPONENT 1 OF 2 (PF)] Drug Intolerance 11-21-19 25 Intolerance [facility] Medications Current Medications Medication Drug Class(es) Dates [...] 7 days 28 tablet 07/10/2024 07/17/2024 Active [id number] actuat albuterol 0.09 mg/actuat metered dose [...] Mar, Active cephalexin 500 mg oral capsule (11 sources) Cephalosporin Antibacterial Start: 11-15-2024 take 1 capsule by mouth every twelve hours cephALEXin (KEFLEX) 500 mg capsule Take 1 capsule by mouth every 12 hours. 11/15/2024 Active Start: 05-04-2023 End: 06-17-2023 take 1 capsule by mouth every eight hours Cephalexin 500 mg capsule Discontinued 500 MG PO Every 8 hours 01 10May 04, 2023 1:00am June 17, 2023 2:15pm Celexa (7 sources) Serotonin Reuptake Inhibitor Start: [...] Di scontinued 150 MG PO Q3D 2 0 February 15, 2024 1:00am May 16, 2024 [...] 2023 9:06am ibuprofen 800 mg oral tablet (16 sources) Nonsteroidal Anti-inflammatory Drug Start: 07-10-2024 End: 10-08-2024 take 1 tablet by mouth every eight hours as needed for pain ibuprofen 800 MG tablet Indications: Pelvic pain TAKE 1 TABLET BY MOUTH EVERY 8 HOURS NEEDED FOR MILD PAIN 60 tablet 3 09/03/2024 Active iv contrast (will be provided with radiology test) (1 source) Start: 11-21-2024 End: 11-22-2024 iv contrast (will be provided with radiology [...] CT contrast administration guidelines link. 1 each 11/21/2024 11/22/2024 Active levothyroxine sodium 0.137 mg oral capsule [...] BID, # 60 tab(s), Refills(s) 1, Pharmacy: [facility]/pharmacy #[id number] Start Date: 09/06/24 Status: Ordered Quantity: 60.0 Unit: tab(s) Repeat number: 2 take 1 tablet by mouth in the mo rning methenamine hippurate (Hiprex) 1 g tablet Take 1 g by mouth in the morning and 1 g before bedtime. Active 24 hr mirabegron 50 mg extended release oral tablet (9 sources) beta3-Adrenergic Agonist Start: 09-06-2024 End: 11-05-2024 take 1 tablet by mouth once daily mirabegron (MYRBETRIQ) 50 mg Tb24 Take 1 tablet by mouth once daily. 09/06/2024 Active Mounjaro 2.5 mg/0.5 mL subcutaneous solution [...] sources) Start: 09-05-2024 take 0.5 tablet by out once daily Start: 12-19-2023 End: 02-15-2024 [...] Orally bid for 5 day(s) Mar, Active 1000 ml sodium chloride 9 mg/ml injection (1 source) Start: 11-21-2024 End: 11-21-2024 0.9 % sodium chloride (NACL 0.9%) infusion Administer at rate defined per CT contrast administration specifications. To be provided with radiology test. 150 mL 11/21/2024 11/21/2024 Active tamsulosin hydrochloride 0.4 mg oral capsule (7 sources) alpha-Adrener gic Janie Start: 09-06-2024 take 1 capsule by mouth once daily Flomax 0.4 mg Cap 0.4 mg = 1 cap(s), Oral, Daily, # 30 cap(s), Refills(s) 0, Pharmacy: [facility]/pharmacy #[id number] Start Date: 09/06/24 Status: Ordered Quantity: [...] 17, 2023 12:00am September 07, 2023 1:46pm ciprofloxacin 500 mg oral tablet (1 source) Quinolone Antimicrobial Start: 09-11-2024 take 1 tablet by mouth once daily Cipro 500 mg Tab 500 mg = 1 tab(s), Oral, Daily, Take 1 tablet the day before the procedure and 1 tablet after the procedure, # 2 tab(s), Refills(s) 0, Pharmacy: [facility]/pharmacy #[id number] Start Date: 09/11/24 Status: Ordered Quantity: [...] 11:47am Start: 03-11-2023 take 1 capsule by [facility] every twelve hours Doxycycline Hyclate 100 [...] PO PER PKG DIR Start: 11-05-2022 DEPO-Medrol 25 Aug, 2023 60 mg Start: 03-16-2022 Medrol (Chad) 4 [...] Date Documented Da te Episodic/Chronic Abdominal pain (16 sources) Pelvic and perineal pain; Translations: [Unspecified [...] group home (current) drug therapy; Translations: [OTH [facility] CURRENT DRUG THERAPY] Onset: 3 Episodic Other aftercare (3 sources) Long-term current use of drug therapy; Translations: [Other 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 (current) drug therapy] Episodic Other aftercare (3 [...] Episodic Other diseases of kidney and ureters (5 sources) Stricture of ureter; Translations: [Crossing vessel and stricture of ureter without hydronephrosis] Onset: 5 Episodic Other diseases of kidney and ureters (3 sources) Hydronephrosis; Translations: [Hydronephrosis with ureteral stricture, not elsewhere classified] 11-21-2024 Episodic Other diseases of kidney and ureters (1 source) Crossing vessel and stricture of ureter without hydronephrosis; Translations: [Ureteral stricture] Onset: 5 Episodic Other endocrine disorders (4 [...] TRACT] Onset: 3 Episodic Residual codes; unclassified (2 sources) Acquired absence of both cervix and uterus; [...] of Phys. EHR Cmte Unclassified (1 source) Autogenerated Problem Onset: 5 11-21-2024 Viral infection (6 sources) Genital herpes simplex; [...] Test Name Value Interpretation Reference Range Facility [facility] 12-05-2024 [facility] Telephone (FVUROL) ----- KARLENE ALFARO ([id number]) 1990 F Date Time Provider Department 12/05/24 EDGAR CARIAS FVPORTER During your visit today, we recorded the following information about you: Edgar Carias RN 12/05/2024 1:18 PM Signed [facility] paperwork completed, emailed to patient per request, and sent to be scanned into memory lane [employer]. Allergies As of Date: 12/05/2024 Noted Allergy Reaction CLINDAMYCIN 11/20/2024 4 - Hives Comments: Rash DTAP-IPV COMPONENT 1 OF 2 (PF) 11/20/2024 5 - Intolerance Comments: Hives; Rash; Welt Date Reviewed: 11/20/2024 Reviewed by: eMndy Bartholomew MA - Fully Assessed Reason for Visit: [facility] Paperwork [2471] Prescriptions as of 12/05/2024 - cephALEXin (KEFLEX) 500 mg capsule Take 1 capsule by mouth every 12 hours. - levothyroxine (SYNTHROID) 137 mcg tablet Take 1 tablet by mouth once daily. - mirabegron (MYRBETRIQ) 50 mg Tb24 Take 1 tablet by mouth once daily. - ibuprofen (MOTRIN) 800 mg tablet TAKE 1 TABLET BY MOUTH EVERY 8 HOURS NEEDED FOR MILD PAIN Problem List As Of Date: 12/05/2024 (None) Encounter Status:Closed by EDGAR CARIAS on 12/05/24 [facility] CNOVon 11-20-2024 CNOV Office Visit (FVUROL ) ----- JOHNHERKARLENE ([id number]) 1990 F Date Time Provider Department 11/20/24 10:00 AM NATO HAWKINS FVPORTER During your visit today, we recorded the following information about you: Blood pressure Last Period 133/93 06/12/18 Nato Hawkins MD 11/20/2024 12:24 PM Signed [facility] UROLOGY NEW PATIENT CLINIC NOTE SERVICE DATE: 11/20/2024 NAME: Karlene Alfaro REFERRED BY: No referring provider defined for this encounter. HISTORY OF PRESENT ILLNESS Ms. Alfaro is a 34 year old female who presents for evaluation for left ureteral stricture Hysterectomy 2019 for bad cells via pfannenstiel Lost 8 pints of blood after this Got taken back to the OR for bleeding Started having left lower abdominal pain and flank pain TVUS with ovarian cyst No abdominal imaging In July 2024 plan was for left oopherectomy but this was aborted because of finding of left ureteral stricture Stent placed with difficulty - dense distal stricture This was removed and replaced in August Larger stent placed Removed in September IVP showed persistent stricture without hydro Had another stent placed this Hates the stent and didn't change her pain Pain is in left lower back After stent was removed she DID have some improvement for a few days Then it returned 2-3 years ago had kidney stones, doesn't remember what side, thinks right side Here with mom Karlene has two kids, 12yo and 15 yo PSH del, appy, hyst Tubal ligation in 2013 Ablation in 2019 PAST MEDICAL HISTORY No past medical history on file. PAST SURGICAL HISTORY No past surgical history on file. FAMILY HISTORY No family history on file. SOCIAL HISTORY SOCIAL HISTORY[1] MEDICATIONS Current Outpatient Medications Medication Sig cephALEXin (KEFLEX) 500 mg capsule Take 1 capsule by mouth every 12 hours. mirabegron (MYRBETRIQ) 50 mg Tb24 Take 1 tablet by mouth once daily. levothyroxine (SYNTHROID) 137 mcg tablet Take 1 tablet by mouth once daily. ibuprofen (MOTRIN) 800 mg tablet TAKE 1 TABLET BY MOUTH EVERY 8 HOURS NEEDED FOR MILD PAIN No current facility-administered medications for this visit. CURRENT ALLERGIES Allergies As of Date: 11/20/2024 Allergen Noted Reaction CLINDAMYCIN 11/20/2024 Hives DTAP-IPV COMPONENT 1 OF 2 (PF) 11/20/2024 Intolerance Fully Assessed 11/20/2024 OBJECTIVE PHYSICAL EXAM: Mom present for exam 11/20/24 1004 BP: 133/93 There is no height or weight on file to calculate BMI. 11/20/24 1004 BP: 133/93 General: pleasant Psych: euthymic, NAD Neuro: AANDOx3. CV: normal perfusion, hemodynamically stable Resp: normal effort Abdomen: soft, NT, no mass Well healed lap incision sites and pfannenstiel incision DATA Labs No results found for: WBC , HB , HCT , PLT , NA , K , CHLOR , CO2 , BUN , CREAT ASSESSMENT/PLAN 34 F w left flank pain taken to OR for lap oopherectomy aborted due to finding of distal left ureteral stricture Stent placed, removed, replaced x 2 Only abdominal imaging is IVP after stent removed which shows stricture but no hydro Discussed situation I will work on getting her retrograde imaging Would recommend robotic reimplant Rba reviewed at length - bleeding, infection, damage to nearby structures, stricture, reflux, voiding dysfunction, pain Discussed expected post op course Nato Hawkins MD Staff Urologist Genitourinary Reconstruction [facility] Department of Urology I spent a total of 30 minutes on the date of the service which included preparing to see the patient, yogj-ic-fcmx patient care, completing clinical documentation, obtaining and/or reviewing separately obtained history, performing a medically appropriate examination, counseling and educating the patient/family/caregiver, and ordering medications, tests, or procedures. >50% of time was devoted to patient counseling. [1] Allergies As of Date: 11/20/2024 Noted Allergy Reaction CLINDAMYCIN 11/20/2024 4 - Hives Comments: Rash DTAP-IPV COMPONENT 1 OF 2 (PF) 11/20/2024 5 - Intolerance Comments: Hives; Rash; Welt Date Reviewed: 11/20/2024 Reviewed by: Mendy Bartholomew MA - Fully Assessed Reason for Visit: Consult [173] Primary Visit Diagnosis:Flank pain [R10.9] Other Visit Diagnoses:Ureteral stricture [N13.5] H/O: hysterectomy [Z90.710] Prescriptions as of 11/20/2024 - cephALEXin (KEFLEX) 500 mg capsule Take 1 capsule by mouth every 12 hours. - levothyroxine (SYNTHROID) 137 mcg tablet Take 1 tablet by mouth once daily. - mirabegron (MYRBETRIQ) 50 mg Tb24 Take 1 tablet by mouth once daily. - ibuprofen (MOTRIN) 800 mg tablet TAKE 1 TABLET BY MOUTH EVERY 8 HOURS NEEDED FOR MILD PAIN Problem List As Of Date: 11/20/2024 (None) (more content not included)... Normal [facility] Creatinineon 10-29-2024 GFR/1.73 sq M.predicted MDRD (S/P/Bld) [Vol rate/Area] mL/min/{1.73_m2} Normal [facility] Comment on above: Order Comment: STAT FOR IVP Result Comment: PERF ORMED BY: [address] [address] PATHOLOGIST PERSONAL BANKING REPRESENTATIVE ZITA BATISTA M.D. Performed By: #### C REAT #### [address] Creatinine [Mass/volume] in Serum or PlasmaOrdered By: Kamaljit Ayala on 10-29-2024 Creatinine [Mass/Vol] 0.77 mg/dL Normal 0.60-1.20 [facility] Comment on above: Order Comment: STAT FOR IVP Performed By: #### C REAT #### [address] No Panel InformationOrdered By: Kamaljit Ayala on 10-29-2024 Estimated GFR (CKD-EPI) > 60.0 mL/Min [facility] Creatinine Clearance (Chem N/A [facility] X-ray reportOrdered By: Crow Ramos on 10-29-2024 Study report [facility] Main [place] [address] [place] [address] XRay Report Signed Patient: Karlene Alfaro MR#: [id number] : 1990 Acct:[id number] Age/Sex: 34 / F ADM Date: 5 Loc: XD Room: Type: [facility] Attending Dr: Kamaljit Ayala MD Copies to: Kamaljit Ayala MD~ Ordering Provider: Kamaljit Ayala MD Date of Service: 10/29/24 XR/XR IVP: LT FLANK PAIN, URETERAL STICTURE XR IVP 10/29/2024 8:56 AM SIGNS AND SYMPTOMS: ^LT FLANK PAIN, URETERAL STICTURE ^HOLDING RM FOR LABS PROTOCOL: Merchandise Deliverer radiographs of the abdomen and pelvis were [...] Ramos M.D. 10/29/2024 10:15 AM Dictation Location: [place] [address] Transcribed By: [facility] 10/29/24 1015 Dictated By: Crow Ramos II, MD 10/29/24 1011 Signed By: 10/29/24 1015 [facility] Work Phone: XR IVPon 10-29-2024 XR IVP [facility] Main [place] [address] [place] [address] XRay Report Signed Patient: Karlene Alfaro MR#: [id number] : 1990 Acct:[id number] Age/Sex: 34 / F ADM Date: 10/29/24 Loc: XD Room: Type: [facility] Attending Dr: Kamaljit Ayala MD Copies to: Kamaljit Ayala MD Ordering Provider: Kamaljit Ayala MD Date of Service: 10/29/24 XR/XR IVP: LT FLANK PAIN, URETERAL STICTURE XR IVP 10/29/2024 8:56 AM SIGNS AND SYMPTOMS: LT FLANK PAIN, URETERAL STICTURE HOLDING FOR LABS PROTOCOL: Merchandise Deliverer radiographs of the abdomen and pelvis were [...] Ramos M.D. 10/29/2024 10:15 AM Dictation Location: [place] [address] Transcribed By: [facility] 10/29/24 1015 Dictated By: Crow Ramos II, MD 10/29/24 1011 Signed By: 10/29/24 1015 Normal [facility] IGP,APTIMA HPV,AGE GDLNon AGE GDLN ACOG TESTING Note . [facility] Comment on above: TESTS RESULT FLAG UN ITS REF RANGE LAB Clinician Provided Cytology Information Source.............Vagina No. of containers..01 ThinPrep Vial Age Algo ACOG Olga... 30-65 FLAG LEGEND: L-Low Normal,H-High Normal,LL-Alert Low,HH-Alert High <-Panic Low,>-Panic High,A-Abnormal,AA-Critical Abnormal Performed at: 01 =G [facility] [place] [address] Ernestina Carballo MD, HPV APTIMA Negative Negative [facility] Comment on above: This nucleic acid am plification test detects fourteen high- risk HPV types (16,18,31,33,35,39,45,51,52,56,58,59,66,68) without differentiation. Performed at: =G - [facility], [place] [id number] Tube Machine Operator: Ernestina Carballo MD, Phone: [phone] Performed at: [address], [place] [id number] Tube Machine Operator: Ernestina Carballo MD, Phone: [phone] IGP, APTIMA HPV, RFX 16/18,45 Note . [facility] Comment on above: TESTS RESULT FLAG UN ITS REF RANGE LAB DIAGNOSIS: 02 NEGATIVE FOR INTRAEPITHELIAL LESION OR MALIGNANCY. Specimen adequacy: 02 Satisfactory for evaluation. No endocervical component is identified. Performed by: 02 Delphine Taylor, Pipe Tester (ASCP) . 02 Note: Note 02 The Pap [...] High <-Panic Low,>-Panic High,A-Abnormal,AA-Critical Abnormal Performed at: [address] [place] [address], [place] [address] Ernestina Carballo MD, SPATULA-ALONE VAGINA [facility] Human papilloma virus 16+18+ 31+33+35+39+45+51+52+56+58+59+66+68 DNA [Presence] in CerOrdered By: Brent Roland on 10-09-2024 HPV 16+18+31+33+35+39+45+5 1+52+56+58+59+66+68 DNA Probe+sig amp Ql (Cvx) Negative Negative [facility] Comment on above: This nucleic acid am plification test detects fourteen high- risk HPV types (16,18,31,33,35,39,45,51,52,56,58,59,66,68)without differentiation.Performed at: = - [facility] [id number] Director: Ernestina Carballo MD, Phone: [phone] at: [facility] [id number] Director: Ernestina Carballo MD, Phone: [phone] No Panel InformationOrdered By: Brent Roland on 10-09-2024 HPV High Risk Other Comment Note . [facility] Comment on above: TESTS RESULT FLAG UN ITS REF RANGE LAB DIAGNOSIS: 02 NEGATIVE FOR INTRAEPITHELIAL LESION OR MALIGNANCY.Specimen adequacy: 02 Satisfactory for evaluation. No endocervical component is identified.Performed by: 02 Delphine Taylor, Pipe Tester (ASCP). 02Note: Note 02 The Pap smear [...] Low,>-Panic High,A-Abnormal,AA-Critical Abnormal -----Performed at:02 [facility] [address] [place] [address] Ernestina Carballo MD, Reference Lab Test Patient Age Note . [facility] Comment on above: TESTS RESULT FLAG UN ITS REF RANGE LAB Clinician Provided Cytology Information Source.............Vagina No. of containers..01 ThinPrep VialAge Hal Espinoza... 30-65 01 FLAG LEGEND: L-Low Normal,H-High Normal,LL-Alert Low,HH-Alert High <-Panic Low,>-Panic High,A-Abnormal,AA-Critical Abnormal -----Performed at:01 =G [facility] [address] [place] [address] Ernestina Carballo MD, Ambulatory Visit Summaryon 0 10-02-2024 Ambulatory Visit Summary Ambulatory Visit Summary KARLENE ALFARO :1990 Visit Date:10/02/2024 Ambulatory Visit Instructions Your Diagnosis Foreign body in bladder Ureteral stricture, left Kidney stones Tests Performed XR IVP -- Results Pending -- Please visit your patient portal for your results or contact your primary care physician. Your Care Team Attending Physician - LUCY [...] SAVITA When: Where: [facility] [address], [place] [address]- Medications What How Much When Instructions Unchanged [...] ? 8 oz (237 mL) of milk, iohemdb-gygapuvwpxgz-ejpy y milk, and calcium-fortifiedfruit juice. Calcium-fortified means [...] and vegetable (more content not included)... Normal [facility] Urology Office/Clinic Noteon 10-02-2024 Urology Office/Clinic Note Urology Office/Clinic Note Chief Complaint Cysto, removal of stunt HPI Staff Cysto Lt stent removal ABX TAKEN History of Present Illness Tests reviewed: op note I have reviewed the previous health record information and history for this patient from Dr. Ayala. I have reviewed and verified the staff [...] ureteral stricture found. *pt was there for weed cutter procedure (pelvic laparoscopy for significant L sided [...] Urology [address], [place] [address]- Additional Instructions: 3 mos with IVP Patient Education Dietary Guidelines to Help Prevent Kidney Stones Debbie Malin, personally scribed for Dr. Ayala on 10/02/2024 15:45:26. . Documentation recorded by the scribe, Debbie Guadalupe, accurately reflects the services(s) I performed and decisions made by me. Authenticated by Dr. Ayala on 10/02/2024 15:55:01. Problem List/Past Medical History [...] history is negati (more content not included)... Normal [facility] Comment on above: Result Comment: Elec tronically Signed By: Kamaljit AYALA MD\.br\Date and Time Signed: 10/02/24 15:55 EDT\.br\Electronically Co-Signed By: Debbie Guadalupe\.br\Date and Time Co-Signed: 10/02/24 15:45 EDT Provider Letteron 09-13-2024 Provider Letter Provider Letter September 13, 2024 KARLENE ALFARO [address] [id number] : 1990 To Whom It May Concern, Please excuse above patient from work. Date of Illness: From: 09/06/24 To: 10/02/24 May Return to Work On: 10/03/24 Restrictions: None Comments: Continuation of FMLA from 09/06/24- 10/02/24. Patient may return to work without restrictions on 10/03/24. Sincerely, [facility]/ Dr. Kamaljit Ayala [address] [place] [address] [facility] Comment on above: Other Comment: corre ction/ pt change mind Provider Letter Provider Letter September 13, 2024 KARLENE ALFARO [address] [id number] : 1990 To Whom It May Concern, Please excuse above patient from work. Date of Illness: From: 09/06/24 To: 09/17/24 May Return to Work On:09/18/24 Restrictions: Patient may return to work 09/18/24 with no heavy lifting and light duty. Comments: N/A Sincerely, [facility] Basophils Auto (Bld) [#/Vol] on 08-23-2024 Basophils (Bld) [#/Vol] 0.0 10 3/uL 0.0-0.1 [facility] Basophils/100 WBC Auto (Bld) on 08-23-2024 Basophils/100 WBC (Bld) 0.6 % 0.2-2.0 [facility] Eosinophils/100 WBC Auto (Bl d)on 08-23-2024 Eosinophils/100 WBC (Bld) 3.0 % 0.9-7.0 [facility] Erythrocyte distribution wid th Auto (RBC) [Ratio]on 08-23-2024 Erythrocyte distribution width (RBC) [Ratio] 13.2 % 11.0-15.0 [facility] Estimated glomerular filtrat ion rate (GFR) non- Americanon 08-23-2024 GFR/1.73 sq M.predicted among non-blacks MDRD (S/P/Bld) [Vol rate/Area] mL/min/{1.73_m2} >=60 mL/min/1.7 3m 2 [facility] Hematocrit Auto (Bld) [Volum e fraction]on 08-23-2024 Hematocrit (Bld) [Volume fraction] 39.6 % 36.0-48.0 [facility] Hemoglobin [Mass/volume] in Bloodon 08-23-2024 Hemoglobin (Bld) [Mass/Vol] 12.9 g/dL 12.0-16.0 [facility] Laboratory - Chemistry and C hemistry - challengeon 08-23-2024 Calcium [Mass/Vol] 9.0 mg/dL 8.5-10.1 [facility] Chloride [Moles/Vol] 104 mmol/L 98-107 [facility] CO2 [Moles/Vol] 26.7 mmol/L 21.0-32.0 [facility] Creatinine [Mass/Vol] 0.82 mg/dL 0.55-1.02 [facility] GFR/1.73 sq M.predicted MDRD (S/P/Bld) [Vol rate/Area] mL/min/{1.73_m2} >=60 mL/min/1.7 3m 2 [facility] Glucose [Mass/Vol] 94 mg/dL 74-106 [facility] Potassium [Moles/Vol] 3.9 mmol/L 3.5-5.1 [facility] Sodium [Moles/Vol] 139 mmol/L 136-145 [facility] Urea nitrogen [Mass/Vol] 9.0 mg/dL 7.0-18.0 [facility] Urea nitrogen/Creatinine [Mass ratio] 11.0 mg/mg [facility] Laboratory - Hematology and Cell countson 08-23-2024 Immature granulocytes/100 WBC (Bld) 0.1 % 0.0-0.5 [facility] Leukocytes [#/volume] correc jocelynn for nucleated erythrocytes in Blood by Automated counon 08-23-2024 WBC corrected for nucl RBC Auto (Bld) [#/Vol] 6.7 10 3/uL 4.0-11.0 [facility] Lymphocytes Auto (Bld) [#/Vo l]on 08-23-2024 Lymphocytes (Bld) [#/Vol] 2.4 10 3/uL 1.2-3.8 [facility] Lymphocytes/100 WBC Auto (Bl d)on 08-23-2024 Lymphocytes/100 WBC (Bld) 34.9 % 20.5-60.0 [facility] MCH Auto (RBC) [Entitic mass ]on 08-23-2024 MCH (RBC) [Entitic mass] 26.2 pg Low 26.7-34.0 [facility] MCHC Auto (RBC) [Mass/Vol]on 08-23-2024 MCHC (RBC) [Mass/Vol] 32.6 g/dL 29.9-35.2 [facility] MCV Auto (RBC) [Entitic vol] on 08-23-2024 MCV (RBC) [Entitic vol] 80.5 fL Low 81.0-99.0 [facility] Monocytes Auto (Bld) [#/Vol] on 08-23-2024 Monocytes (Bld) [#/Vol] 0.3 10 3/uL 0.3-0.8 [facility] Monocytes/100 WBC Auto (Bld) on 08-23-2024 Monocytes/100 WBC (Bld) 4.9 % 1.7-12.0 [facility] Neutrophils Auto (Bld) [#/Vo l]on 08-23-2024 Neutrophils (Bld) [#/Vol] 3.8 10 3/uL 1.4-6.5 [facility] Neutrophils/100 WBC Auto (Bl d)on 08-23-2024 Neutrophils/100 WBC (Bld) 56.5 % 43.0-75.0 [facility] No Panel Informationon 08-23 Eosinophils # (Auto) 0.2 10 3/uL 0.0-0.7 [facility] Immature Granulocyte # (Auto) 0.01 10 3/uL 0.00-0.03 [facility] Platelet mean volume Auto (B ld) [Entitic vol]on 08-23-2024 Platelet mean volume (Bld) [Entitic vol] 8.9 fL Low 9.5-13.5 [facility] Platelets Auto (Bld) [#/Vol] on 08-23-2024 Platelets (Bld) [#/Vol] 398 10 3/uL 150-450 [facility] RBC Auto (Bld) [#/Vol]on RBC (Bld) [#/Vol] 4.92 10 6/uL 4.20-5.40 [facility] Serum or plasma anion gap de terminationon 08-23-2024 Anion gap [Moles/Vol] 12.2 mmol/L [facility] Basophils Auto (Bld) [#/Vol] on 08-02-2024 Basophils (Bld) [#/Vol] 0.1 10 3/uL 0.0-0.1 [facility] Basophils/100 WBC Auto (Bld) on 08-02-2024 Basophils/100 WBC (Bld) 0.6 % 0.2-2.0 [facility] Eosinophils/100 WBC Auto (Bl d)on 08-02-2024 Eosinophils/100 WBC (Bld) 1.6 % 0.9-7.0 [facility] Erythrocyte distribution wid th Auto (RBC) [Ratio]on 08-02-2024 Erythrocyte distribution width (RBC) [Ratio] 13.1 % 11.0-15.0 [facility] Hematocrit Auto (Bld) [Volum e fraction]on 08-02-2024 Hematocrit (Bld) [Volume fraction] 43.7 % 36.0-48.0 [facility] Hemoglobin [Mass/volume] in Bloodon 08-02-2024 Hemoglobin (Bld) [Mass/Vol] 14.1 g/dL 12.0-16.0 [facility] Laboratory - Hematology and Cell countson 08-02-2024 Immature granulocytes/100 WBC (Bld) 0.2 % 0.0-0.5 [facility] Leukocytes [#/volume] correc jocelynn for nucleated erythrocytes in Blood by Automated counon 08-02-2024 WBC corrected for nucl RBC Auto (Bld) [#/Vol] 9.0 10 3/uL 4.0-11.0 [facility] Lymphocytes Auto (Bld) [#/Vo l]on 08-02-2024 Lymphocytes (Bld) [#/Vol] 3.0 10 3/uL 1.2-3.8 [facility] Lymphocytes/100 WBC Auto (Bl d)on 08-02-2024 Lymphocytes/100 WBC (Bld) 33.4 % 20.5-60.0 [facility] MCH Auto (RBC) [Entitic mass ]on 08-02-2024 MCH (RBC) [Entitic mass] 26.7 pg 26.7-34.0 [facility] MCHC Auto (RBC) [Mass/Vol]on 08-02-2024 MCHC (RBC) [Mass/Vol] 32.3 g/dL 29.9-35.2 [facility] MCV Auto (RBC) [Entitic vol] on 08-02-2024 MCV (RBC) [Entitic vol] 82.8 fL 81.0-99.0 [facility] Monocytes Auto (Bld) [#/Vol] on 08-02-2024 Monocytes (Bld) [#/Vol] 0.5 10 3/uL 0.3-0.8 [facility] Monocytes/100 WBC Auto (Bld) on 08-02-2024 Monocytes/100 WBC (Bld) 5.4 % 1.7-12.0 [facility] Neutrophils Auto (Bld) [#/Vo l]on 08-02-2024 Neutrophils (Bld) [#/Vol] 5.3 10 3/uL 1.4-6.5 [facility] Neutrophils/100 WBC Auto (Bl d)on 08-02-2024 Neutrophils/100 WBC (Bld) 58.8 % 43.0-75.0 [facility] No Panel Informationon 08-02 Eosinophils # (Auto) 0.1 10 3/uL 0.0-0.7 [facility] Immature Granulocyte # (Auto) 0.02 10 3/uL 0.00-0.03 [facility] Platelet mean volume Auto (B ld) [Entitic vol]on 08-02-2024 Platelet mean volume (Bld) [Entitic vol] 8.9 fL Low 9.5-13.5 [facility] Platelets Auto (Bld) [#/Vol] on 08-02-2024 Platelets (Bld) [#/Vol] 369 10 3/uL 150-450 [facility] RBC Auto (Bld) [#/Vol]on RBC (Bld) [#/Vol] 5.28 10 6/uL 4.20-5.40 [facility] ALL CBC WITH AUTO DIFFon BASOPHILS ABSOLUTE AUTO 0.1 [facility] Basophils/100 WBC (Bld) 0.6 % 0.2 - 2.0 % [facility] Eosinophils/100 WBC (Bld) 1.8 % 0.9 - 7.0 % [facility] Erythrocyte distribution width (RBC) [Ratio] 13.2 % 11.0 - 15.0 % [facility] Hematocrit (Bld) [Volume fraction] 40.5 % 36.0 - 48.0 % [facility] Hemoglobin (Bld) [Mass/Vol] 13.1 g/dL 12.0 - 16.0 g/dL [facility] IMMATURE GRANULOCYTES ABS AUTO 0.02 [facility] Immature granulocytes/100 WBC (Bld) 0.2 % 0.0 - 0.5 % [facility] Interpretation and review of laboratory results Abnormal [facility] LYMPHOCYTES ABSOLUTE AUTO 2.7 [facility] Lymphocytes/100 WBC (Bld) 30.8 % 20.5 - 60.0 % [facility] MCH (RBC) [Entitic mass] 26.6 pg Low 26.7 - 34.0 pg [facility] MCHC (RBC) [Mass/Vol] 32.3 g/dL 29.9 - 35.2 g/dL [facility] MCV (RBC) [Entitic vol] 82.3 fL 81.0 - 99.0 fL [facility] MONOCYTES ABSOLUTE AUTO 0.6 [facility] Monocytes/100 WBC (Bld) 6.6 % 1.7 - 12.0 % [facility] NEUTROPHILS ABSOLUTE AUTO 5.3 [facility] Neutrophils/100 WBC (Bld) 60 % 43.0 - 75.0 % [facility] Platelet mean volume (Bld) [Entitic vol] 9.1 fL Low 9.5 - 13.5 fL [facility] TBH EO # 0.2 [facility]H PLT 380 [facility] TB RBC 4.92 [facility] TB WBC 8.8 [facility] Basophils Auto (Bld) [#/Vol] on 07-23-2024 Basophils (Bld) [#/Vol] 0.1 10 3/uL 0.0-0.1 [facility] Basophils/100 WBC Auto (Bld) on 07-23-2024 Basophils/100 WBC (Bld) 0.6 % 0.2-2.0 [facility] ECG 12-LEADon 07-23-2024 [place] [address] Electrocardiograph Report Signed Patient: KARLENE ALFARO MR#: [id number] : 1990 Acct:[id number] Age/Sex: 34 / F ADM Date: 07/23/24 Loc: PST Attending Dr: Brent Roland D.O. Ordering Physician: Brent Roland D.O. Date of Service: 07/23/24 Procedure(s): ECG 12 lead Accession Number(s): [id number] cc: [facility] Test Date: 2024-07-23 Pat Name: KARLENE ALFARO Department: Room: - Gender: Female [employer]: : 1990 Requested By: BRENT ROLAND Order Number: [id number] Reading MD: CHUY SHABAZZ M.D. Measurements Intervals [place] Rate: 71 P: 33 WV: 148 QRS: 42 QRSD: 82 T: 30 QT: 389 QTc: 424 Interpretive Statements SINUS RHYTHM POSSIBLE RIGHT VENTRICULAR CONDUCTION DELAY [RSR (QR) IN V1/V2] Borderline ECG Compared to ECG 05/02/2023 11:46:38 Sinus tachycardia no longer present Right-axis deviation no longer present Electronically Signed On 07-23-2024 11:53:48 EDT by CHUY SHABAZZ M.D. Dictated By: CHUY SHABAZZ Signed By: 07/23/24 1154 DD/ 1129 TD/TT: Fabric Lay Out Worker: [facility] Radiology, Radiologclaudio andrew MD - 07/23/2024 [place] [address] Electrocardiograph Report Signed Patient: KARLENE ALFARO MR#: [id number] : 1990 Acct:[id number] Age/Sex: 34 / F ADM Date: 07/23/24 Loc: PST Attending Dr: Brent Roland D.O. Ordering Physician: Brent Roland D.O. 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 Measurements Intervals [place] Rate: 71 P: 33 WV: 148 QRS: 42 QRSD: 82 T: 30 QT: 389 QTc: 424 Interpretive Statements SINUS RHYTHM POSSIBLE RIGHT VENTRICULAR CONDUCTION DELAY [RSR (QR) IN V1/V2] Borderline ECG Compared to ECG 05/02/2023 11:46:38 Sinus tachycardia no longer present Right-axis deviation no longer present Electronically Signed On 07-23-2024 11:53:48 EDT by CHUY SHABAZZ M.D. Dictated By: CHUY SHABAZZ Signed By: 07/23/24 1154 DD/ 1129 TD/TT: Fabric Lay Out Worker: [facility] Radiology Study observation (narrative) [facility] ECG 12-LEADOrdered By: Radio logist Radiology on 07-23-2024 [facility] [employer] Work Phone: Eosinophils/100 WBC Auto (Bl d)on 07-23-2024 Eosinophils/100 WBC (Bld) 1.8 % 0.9-7.0 [facility] Erythrocyte distribution wid th Auto (RBC) [Ratio]on 07-23-2024 Erythrocyte distribution width (RBC) [Ratio] 13.2 % 11.0-15.0 [facility] Estimated glomerular filtrat ion rate (GFR) non- Americanon 07-23-2024 GFR/1.73 sq M.predicted among non-blacks MDRD (S/P/Bld) [Vol rate/Area] mL/min/{1.73_m2} >=60 mL/min/1.7 3m 2 [facility] Globulin Calc (S) [Mass/Vol] on 07-23-2024 Globulin (S) [Mass/Vol] 3.6 g/dL [facility] Hematocrit Auto (Bld) [Volum e fraction]on 07-23-2024 Hematocrit (Bld) [Volume fraction] 40.5 % 36.0-48.0 [facility] Hemoglobin [Mass/volume] in Bloodon 07-23-2024 Hemoglobin (Bld) [Mass/Vol] 13.1 g/dL 12.0-16.0 [facility] Laboratory - Chemistry and C hemistry - challengeon 07-23-2024 Albumin [Mass/Vol] 3.5 g/dL 3.4-5.0 [facility] ALP [Catalytic activity/Vol] 70 U/L 46-116 [facility] ALT [Catalytic activity/Vol] 37 U/L 14-59 [facility] AST [Catalytic activity/Vol] 15 U/L 15-37 [facility] Bilirubin [Mass/Vol] 0.3 mg/dL 0.2-1.0 [facility] Calcium [Mass/Vol] 8.6 mg/dL 8.5-10.1 [facility] Chloride [Moles/Vol] 105 mmol/L 98-107 [facility] CO2 [Moles/Vol] 26.9 mmol/L 21.0-32.0 [facility] Creatinine [Mass/Vol] 0.83 mg/dL 0.55-1.02 [facility] GFR/1.73 sq M.predicted MDRD (S/P/Bld) [Vol rate/Area] mL/min/{1.73_m2} >=60 mL/min/1.7 3m 2 [facility] Glucose [Mass/Vol] 88 mg/dL 74-106 [facility] Potassium [Moles/Vol] 4.3 mmol/L 3.5-5.1 [facility] Protein [Mass/Vol] 7.1 g/dL 6.4-8.2 [facility] Sodium [Moles/Vol] 138 mmol/L 136-145 [facility] Urea nitrogen [Mass/Vol] 14.0 mg/dL 7.0-18.0 [facility] Urea nitrogen/Creatinine [Mass ratio] 16.9 mg/mg [facility] Laboratory - Hematology and Cell countson 07-23-2024 Immature granulocytes/100 WBC (Bld) 0.2 % 0.0-0.5 [facility] Leukocytes [#/volume] correc jocelynn for nucleated erythrocytes in Blood by Automated counon 07-23-2024 WBC corrected for nucl RBC Auto (Bld) [#/Vol] 8.8 10 3/uL 4.0-11.0 [facility] Lymphocytes Auto (Bld) [#/Vo l]on 07-23-2024 Lymphocytes (Bld) [#/Vol] 2.7 10 3/uL 1.2-3.8 [facility] Lymphocytes/100 WBC Auto (Bl d)on 07-23-2024 Lymphocytes/100 WBC (Bld) 30.8 % 20.5-60.0 [facility] MCH Auto (RBC) [Entitic mass ]on 07-23-2024 MCH (RBC) [Entitic mass] 26.6 pg Low 26.7-34.0 [facility] MCHC Auto (RBC) [Mass/Vol]on 07-23-2024 MCHC (RBC) [Mass/Vol] 32.3 g/dL 29.9-35.2 [facility] MCV Auto (RBC) [Entitic vol] on 07-23-2024 MCV (RBC) [Entitic vol] 82.3 fL 81.0-99.0 [facility] Monocytes Auto (Bld) [#/Vol] on 07-23-2024 Monocytes (Bld) [#/Vol] 0.6 10 3/uL 0.3-0.8 [facility] Monocytes/100 WBC Auto (Bld) on 07-23-2024 Monocytes/100 WBC (Bld) 6.6 % 1.7-12.0 [facility] Neutrophils Auto (Bld) [#/Vo l]on 07-23-2024 Neutrophils (Bld) [#/Vol] 5.3 10 3/uL 1.4-6.5 [facility] Neutrophils/100 WBC Auto (Bl d)on 07-23-2024 Neutrophils/100 WBC (Bld) 60.0 % 43.0-75.0 [facility] No Panel Informationon 07-23 Eosinophils # (Auto) 0.2 10 3/uL 0.0-0.7 [facility] Immature Granulocyte # (Auto) 0.02 10 3/uL 0.00-0.03 [facility] Platelet mean volume Auto (B ld) [Entitic vol]on 07-23-2024 Platelet mean volume (Bld) [Entitic vol] 9.1 fL Low 9.5-13.5 [facility] Platelets Auto (Bld) [#/Vol] on 07-23-2024 Platelets (Bld) [#/Vol] 380 10 3/uL 150-450 [facility] RBC Auto (Bld) [#/Vol]on RBC (Bld) [#/Vol] 4.92 10 6/uL 4.20-5.40 [facility] Serum or plasma albumin/glob ulin mass ratioon 07-23-2024 Albumin/Globulin [Mass ratio] 1.0 {ratio} [facility] Serum or plasma anion gap de terminationon 07-23-2024 Anion gap [Moles/Vol] 10.4 mmol/L [facility] RECURRENT VAGINITIS (HTRX)on 07-11-2024 ATOPOBIUM VAGINAE 30.718 Abnormal [facility] ATOPOBIUM VAGINAE Detected Abnormal [facility] BVAB 2,3 (BACTERIAL VAGINOSIS ASSOCIATED BACTERIA 2, 3); MOBILUNCUS SPP 0 [facility] BVAB 2,3 (BACTERIAL VAGINOSIS ASSOCIATED BACTERIA 2, 3); MOBILUNCUS SPP Not detected [facility] DARIA ALBICANS, PARAPSILOSIS, TROPICALIS 0 [facility] DARIA ALBICANS, PARAPSILOSIS, TROPICALIS Not detected [facility] DARIA GLABRATA 0 [facility] DARIA GLABRATA Not detected [facility] DARIA KRUSEI 0 [facility] DARIA KRUSEI Not detected [facility] CHLAMYDIA TRACHOMATIS 0 [facility] CHLAMYDIA TRACHOMATIS Not detected [facility] GARDNERELLA VAGINALIS 0 [facility] GARDNERELLA VAGINALIS Not detected [facility] Interpretation and review of laboratory results Abnormal [facility] MEGASPHAERA (TYPES 1, 2) 0 [facility] MEGASPHAERA (TYPES 1, 2) Not detected [facility] MYCOPLASMA GENITALIUM 0 [facility] MYCOPLASMA GENITALIUM Not detected N [facility] NEISSERIA GONORRHOEAE 0 [facility] NEISSERIA GONORRHOEAE Not detected N [facility] TRICHOMONAS VAGINALIS 0 [facility] TRICHOMONAS VAGINALIS Not detected N [facility] Urinalysis macro (dipstick) panel (U)on 07-10-2024 Bilirubin, UA Negative Negative - 4(70) +++ mg/dL [facility] Blood, UA Negative Negative - 50 Arnulfo/mcL [facility] Clarity, UA Clear [facility] Color, UA Yellow [facility] Glucose, UA Negative Negative - 1999(110) ++++ mg/dL [facility] Interpretation and review of laboratory results Normal [facility] Ketones, UA Negative Negative - 160(16) ++++ mg/dL [facility] Leukocytes, UA Negative Negative - 500+++ Corrina/mcL [facility] Nitrite, UA Negative Negative - Positive [facility] pH, UA 7 5 - 9 [facility] Protein, UA Negative Negative - 1999(20) ++++ mg/dL [facility] Spec Grav, UA 1.025 1 - 1.03 [facility] Urobilinogen, UA 0.2 0.2 - 12 mg/dL [facility] US PELVIS W/ TRANSVAGINALon 07-03-2024 [place] [address] Ultrasound Report Signed Patient: KARLENE ALFARO MR#: [id number] : 1990 Acct:[id number] Age/Sex: 34 / F ADM Date: 07/03/24 Loc: US Attending Dr: Brent Roland D.O. Ordering Physician: Brent Roland D.O. Date of Service: 07/03/24 Procedure(s): US pelvis w/ transvaginal Accession Number(s): [id number] cc: Surya Hodges M.D.; Brent Roland D.O. [address] [address] Patient Name: KARLENE ALFARO MRN: [id number] date: 1990 Sex: F Assigned Patient Location: US Current Patient Location: US Accession/Order Number: [id number] Exam Date: 07/03/2024 09:28 Report Date: 07/03/2024 [...] Jovan Martin M.D.07/03/2024 9:30 AM Dictation Location: [place] [address] Electronically authenticated by: [id number] Y Date: 07/03/2024 09:30 Dictated By: Jovan Martin D.O. Signed By: 07/03/2433 DD/ 9 TD/TT: Fabric Lay Out Worker: [facility] Radiology, Radiologi MD lorrie - 07/03/2024 [place] [address] Ultrasound Report Signed Patient: KARLENE ALFARO MR#: [id number] : 1990 Acct:[id number] Age/Sex: 34 / F ADM Date: 07/03/24 Loc: US Attending Dr: Brent Roland D.O. Ordering Physician: Brent Roland D.O. Date of Service: 07/03/24 Procedure(s): US pelvis w/ transvaginal Accession Number(s): [id number] cc: Surya Hodges M.D.; Brent Roland D.O. The [place] [id number] Patient Name: KARLENE ALFARO MRN: [id number] date: 1990 Sex: F Assigned Patient Location: US Current Patient Location: US Accession/Order Number: [id number] Exam Date: 07/03/2024 09:28 Report Date: 07/03/2024 [...] Jovan Martin M.D.07/03/2024 9:30 AM Dictation Location: [place] [address] Electronically authenticated by: [id number] Y Date: 07/03/2024 09:30 Dictated By: Jovan Martin D.O. Signed By: 07/03/2433 DD/ 9 TD/TT: Fabric Lay Out Worker: [facility] Radiology Study observation (narrative) [facility] US PELVIS W/ TRANSVAGINALOrd ered By: Radiologist Radiology on 07-03-2024 [facility] Work Phone: Basophils Auto (Bld) [#/Vol] on 09-07-2023 Basophils (Bld) [#/Vol] 0.0 10 3/uL 0.0-0.1 [facility] Basophils/100 WBC Auto (Bld) on 09-07-2023 Basophils/100 WBC (Bld) 0.5 % 0.2-2.0 [facility] Cholesterol in LDL Calc [Mas s/Vol]on 09-07-2023 Cholesterol in LDL [Mass/Vol] 149.0 mg/dL [facility] Comment on above: <100 mg/dl [id number] 0-129 mg/dl NEAR OR ABOVE [id number] mg/dl BORDERLINE [id number] mg/dl HIGH>190 mg/dl VERY HIGH Cholesterol in VLDL Calc [Ma ss/Vol]on 09-07-2023 Cholesterol in VLDL [Mass/Vol] 20.4 mg/dL [facility] Eosinophils/100 WBC Auto (Bl d)on 09-07-2023 Eosinophils/100 WBC (Bld) 1.6 % 0.9-7.0 [facility] Erythrocyte distribution wid th Auto (RBC) [Ratio]on 09-07-2023 Erythrocyte distribution width (RBC) [Ratio] 13.2 % 11.0-15.0 [facility] Estimated glomerular filtrat ion rate (GFR) non- Americanon 09-07-2023 GFR/1.73 sq M.predicted among non-blacks MDRD (S/P/Bld) [Vol rate/Area] mL/min/{1.73_m2} >=60 [facility] Globulin Calc (S) [Mass/Vol] on 09-07-2023 Globulin (S) [Mass/Vol] 3.8 g/dL [facility] Hematocrit Auto (Bld) [Volum e fraction]on 09-07-2023 Hematocrit (Bld) [Volume fraction] 41.8 % 36.0-48.0 [facility] Hemoglobin [Mass/volume] in Bloodon 09-07-2023 Hemoglobin (Bld) [Mass/Vol] 13.3 g/dL 12.0-16.0 [facility] Laboratory - Chemistry and C hemistry - challengeon 09-07-2023 Albumin [Mass/Vol] 3.9 g/dL 3.4-5.0 [facility] ALP [Catalytic activity/Vol] 70 U/L 46-116 [facility] ALT [Catalytic activity/Vol] 20 U/L 14-59 [facility] AST [Catalytic activity/Vol] 12 U/L Low 15-37 [facility] Bilirubin [Mass/Vol] 0.6 mg/dL 0.2-1.0 [facility] Calcium [Mass/Vol] 8.7 mg/dL 8.5-10.1 [facility] Chloride [Moles/Vol] 102 mmol/L 98-107 [facility] Cholesterol [Mass/Vol] 226 mg/dL High <=200 [facility] Cholesterol in HDL [Mass/Vol] 57 mg/dL 40-60 [facility] Comment on above: > or =60 mg/dl - LOW CARDIOVASCULAR RISK<40 mg/dl - HIGH CARDIOVASCULAR RISK CO2 [Moles/Vol] 27.2 mmol/L 21.0-32.0 [facility] Creatinine [Mass/Vol] 0.86 mg/dL 0.55-1.02 [facility] GFR/1.73 sq M.predicted MDRD (S/P/Bld) [Vol rate/Area] mL/min/{1.73_m2} >=60 [facility] Glucose [Mass/Vol] 89 mg/dL 74-106 [facility] Potassium [Moles/Vol] 4.0 mmol/L 3.5-5.1 [facility] Protein [Mass/Vol] 7.7 g/dL 6.4-8.2 [facility] Sodium [Moles/Vol] 139 mmol/L 136-145 [facility] Triglyceride [Mass/Vol] 102 mg/dL <=150 [facility] Urea nitrogen [Mass/Vol] 9.0 mg/dL 7.0-18.0 [facility] Urea nitrogen/Creatinine [Mass ratio] 10.5 mg/mg [facility] Laboratory - Hematology and Cell countson 09-07-2023 Immature granulocytes/100 WBC (Bld) 0.2 % 0.0-0.5 [facility] Leukocytes [#/volume] correc jocelynn for nucleated erythrocytes in Blood by Automated counon 09-07-2023 WBC corrected for nucl RBC Auto (Bld) [#/Vol] 8.0 10 3/uL 4.0-11.0 [facility] Lymphocytes Auto (Bld) [#/Vo l]on 09-07-2023 Lymphocytes (Bld) [#/Vol] 2.4 10 3/uL 1.2-3.8 [facility] Lymphocytes/100 WBC Auto (Bl d)on 09-07-2023 Lymphocytes/100 WBC (Bld) 29.7 % 20.5-60.0 [facility] MCH Auto (RBC) [Entitic mass ]on 09-07-2023 MCH (RBC) [Entitic mass] 26.3 pg Low 26.7-34.0 [facility] MCHC Auto (RBC) [Mass/Vol]on 09-07-2023 MCHC (RBC) [Mass/Vol] 31.8 g/dL 29.9-35.2 [facility] MCV Auto (RBC) [Entitic vol] on 09-07-2023 MCV (RBC) [Entitic vol] 82.6 fL 81.0-99.0 [facility] Monocytes Auto (Bld) [#/Vol] on 09-07-2023 Monocytes (Bld) [#/Vol] 0.4 10 3/uL 0.3-0.8 [facility] Monocytes/100 WBC Auto (Bld) on 09-07-2023 Monocytes/100 WBC (Bld) 5.5 % 1.7-12.0 [facility] Neutrophils Auto (Bld) [#/Vo l]on 09-07-2023 Neutrophils (Bld) [#/Vol] 5.0 10 3/uL 1.4-6.5 [facility] Neutrophils/100 WBC Auto (Bl d)on 09-07-2023 Neutrophils/100 WBC (Bld) 62.5 % 43.0-75.0 [facility] No Panel Informationon 09-06 Eosinophils # (Auto) 0.1 10 3/uL 0.0-0.7 [facility] Immature Granulocyte # (Auto) 0.02 10 3/uL 0.00-0.03 [facility] Platelet mean volume Auto (B ld) [Entitic vol]on 09-07-2023 Platelet mean volume (Bld) [Entitic vol] 9.4 fL Low 9.5-13.5 [facility] Platelets Auto (Bld) [#/Vol] on 09-07-2023 Platelets (Bld) [#/Vol] 381 10 3/uL 150-450 [facility] RBC Auto (Bld) [#/Vol]on RBC (Bld) [#/Vol] 5.06 10 6/uL 4.20-5.40 [facility] Serum or plasma albumin/glob ulin mass ratioon 09-07-2023 Albumin/Globulin [Mass ratio] 1.0 {ratio} [facility] [facility] or plasma anion gap de terminationon 09-07-2023 Anion gap [Moles/Vol] 13.8 mmol/L [facility] Serum or plasma total choles terol/high density lipoprotein (HDL) cholesterol mass linwood 09-07-2023 Cholesterol.total/Chol esterol in HDL [Mass ratio] 4.0 {ratio} [facility] Comment on above: 3.3 - 4.4 LOW RISK4. 4 - 7.1 AVERAGE RISK7.1 - 11.0 MODERATE RISK>11.0 HIGH RISK Basophils Auto (Bld) [#/Vol] on 05-02-2023 Basophils (Bld) [#/Vol] 0.1 10 3/uL 0.0-0.1 [facility] Basophils/100 WBC Auto (Bld) on 05-02-2023 Basophils/100 WBC (Bld) 0.4 % 0.2-2.0 [facility] Eosinophils/100 WBC Auto (Bl d)on 05-02-2023 Eosinophils/100 WBC (Bld) 0.1 % 0.9-7.0 [facility] Erythrocyte distribution wid th Auto (RBC) [Ratio]on 05-02-2023 Erythrocyte distribution width (RBC) [Ratio] 13.1 % 11.0-15.0 [facility] Estimated glomerular filtrat ion rate (GFR) non- Americanon 05-02-2023 GFR/1.73 sq M.predicted among non-blacks MDRD (S/P/Bld) [Vol rate/Area] mL/min/{1.73_m2} >=60 [facility] Hematocrit Auto (Bld) [Volum e fraction]on 05-02-2023 Hematocrit (Bld) [Volume fraction] 41.6 % 36.0-48.0 [facility] Hemoglobin [Mass/volume] in Bloodon 05-02-2023 Hemoglobin (Bld) [Mass/Vol] 13.6 g/dL 12.0-16.0 [facility] Laboratory - Chemistry and C hemistry - challengeon 05-02-2023 Calcium [Mass/Vol] 8.7 mg/dL 8.5-10.1 [facility] Chloride [Moles/Vol] 101 mmol/L 98-107 [facility] CO2 [Moles/Vol] 24.8 mmol/L 21.0-32.0 [facility] Creatinine [Mass/Vol] 0.89 mg/dL 0.55-1.02 [facility] GFR/1.73 sq M.predicted MDRD (S/P/Bld) [Vol rate/Area] mL/min/{1.73_m2} >=60 [facility] Glucose [Mass/Vol] 112 mg/dL 74-106 [facility] Potassium [Moles/Vol] 4.0 mmol/L 3.5-5.1 [facility] Sodium [Moles/Vol] 137 mmol/L 136-145 [facility] Urea nitrogen [Mass/Vol] 5.0 mg/dL 7.0-18.0 [facility] Urea nitrogen/Creatinine [Mass ratio] 5.6 mg/mg [facility] Laboratory - Hematology and Cell countson 05-02-2023 Immature granulocytes/100 WBC (Bld) 0.3 % 0.0-0.5 [facility] - Microbiology an d Antimicrobial susceptibilityon 05-02-2023 S. pyogenes Ag Ql (Unsp spec) Positive [facility] SARS-CoV-2 (COVID-19) RNA LEO+probe Ql (Unsp spec) Negative NEGATIVE [facility] Comment on above: This test has [...] diagnosis of Covid-19 under section 564(b)(1) of [facility] [place] 360bbb-3(b)(1), unless the declaration isterminated or authorization is revoked sooner. Leukocytes [#/volume] correc jocelynn for nucleated erythrocytes in Blood by Automated counon 05-02-2023 WBC corrected for nucl RBC Auto (Bld) [#/Vol] 12.4 10 3/uL 4.0-11.0 [facility] Lymphocytes Auto (Bld) [#/Vo l]on 05-02-2023 Lymphocytes (Bld) [#/Vol] 1.0 10 3/uL 1.2-3.8 [facility] Lymphocytes/100 WBC Auto (Bl d)on 05-02-2023 Lymphocytes/100 WBC (Bld) 7.9 % 20.5-60.0 [facility] MCH Auto (RBC) [Entitic mass ]on 05-02-2023 MCH (RBC) [Entitic mass] 27.9 pg 26.7-34.0 [facility] MCHC Auto (RBC) [Mass/Vol]on 05-02-2023 MCHC (RBC) [Mass/Vol] 32.7 g/dL 29.9-35.2 [facility] MCV Auto (RBC) [Entitic vol] on 05-02-2023 MCV (RBC) [Entitic vol] 85.2 fL 81.0-99.0 [facility] Monocytes Auto (Bld) [#/Vol] on 05-02-2023 Monocytes (Bld) [#/Vol] 0.8 10 3/uL 0.3-0.8 [facility] Monocytes/100 WBC Auto (Bld) on 05-02-2023 Monocytes/100 WBC (Bld) 6.3 % 1.7-12.0 [facility] Neutrophils Auto (Bld) [#/Vo l]on 05-02-2023 Neutrophils (Bld) [#/Vol] 10.5 10 3/uL 1.4-6.5 [facility] Neutrophils/100 WBC Auto (Bl d)on 05-02-2023 Neutrophils/100 WBC (Bld) 85.0 % 43.0-75.0 [facility] No Panel Informationon 05-02 Bedside Influenza Type A Antigen Negative [facility] Comment on above: Negative for Flu A p rotein antigen. Infection due to Flu Acannot be ruled out. Flu A antigen in the sample may bebelow the detection limit of the test. Bedside Influenza Type B Antigen Negative [facility] Comment on above: Negative for Flu B p rotein antigen. Infection due to Flu Bcannot be ruled out. Flu B antigen in the sample may bebelow the detection limit of the test. Eosinophils # (Auto) 0.0 10 3/uL 0.0-0.7 [facility] Immature Granulocyte # (Auto) 0.04 10 3/uL 0.00-0.03 [facility] Monoscreen Negative NEGATIVE [facility] Platelet mean volume Auto (B ld) [Entitic vol]on 05-02-2023 Platelet mean volume (Bld) [Entitic vol] 8.9 fL 9.5-13.5 [facility] Platelets Auto (Bld) [#/Vol] on 05-02-2023 Platelets (Bld) [#/Vol] 369 10 3/uL 150-450 [facility] RBC Auto (Bld) [#/Vol]on RBC (Bld) [#/Vol] 4.88 10 6/uL 4.20-5.40 [facility] Serum or plasma anion gap de terminationon 05-02-2023 Anion gap [Moles/Vol] 15.2 mmol/L [facility] Cytology Cervical or vaginal smear or scraping studyOrdered By: Kenyatta Salazar on 12-28-2022 [facility] Cholesterol [Mass/volume] in Serum or PlasmaOrdered By: Baljinder Polanco on 12-01-2022 Cholesterol [Mass/Vol] 214 mg/dL 140-200 [facility] Comment on above: Chol less than 200 m g/dl low riskChol 201-239 mg/dl borderline riskChol 240 mg/dl and greater high risk Cholesterol in LDL Calc [Mas s/Vol]Ordered By: Baljinder Polanco on 12-01-2022 Cholesterol in LDL [Mass/Vol] 132 mg/dL 0-100 [facility] Comment on above: LDL ATP III CLASSIFI CATIONLDL less than 100 mg/dL OptimalLDL 100-129 mg/dL Near or above optimalLDL 130-159 mg/dL Borderline highLDL 160-189 mg/dL HighLDL greater than 189 mg/dL Very high Cholesterol in VLDL Calc [Ma ss/Vol]Ordered By: Baljinder Polanco on 12-01-2022 Cholesterol in VLDL [Mass/Vol] 27 mg/dL [facility] Glucose mean value [Mass/vol ume] in Blood Estimated from glycated hemoglobinOrdered By: Baljinder Polanco on 12-01-2022 Average glucose Estimated from glycated hemoglobin (Bld) [Mass/Vol] 120 mg/dL [facility] Hemoglobin A1c percentageOrd ered By: Baljinder Polanco on 12-01-2022 HbA1c (Bld) [Mass fraction] 5.8 % 4.3-5.6 [facility] Comment on above: Increased risk for d iabetes: 5.7 - 6.4diabetes: >6.4glycemic control for adults with diabetes: <7.0 Serum or plasma high density lipoprotein (HDL) cholesterol measurementOrdered By: Baljinder Polanco on 12-01-2022 Cholesterol in HDL [Mass/Vol] 54 mg/dL 23-92 [facility] Comment on above: HDL CHOL ATP-III CLA SSIFICATION Cardiovascular RiskHDL > or equal to 60 mg/dL LOWHDL < 40 mg/dL HIGH Serum or plasma total choles terol/high density lipoprotein (HDL) cholesterol mass ratOrdered By: Baljinder Polanco on 12-01-2022 Cholesterol.total/Chol esterol in HDL [Mass ratio] 4.0 {ratio} <5.0 [facility] Triglyceride [Mass/volume] i n Serum or PlasmaOrdered By: Baljinder Polanco on 12-01-2022 Triglyceride [Mass/Vol] 139 mg/dL 0-149 [facility] Comment on above: TRIG ATP III [...] <= 0.01 ng/mL [Mass/Vol] 27.1 pg/mL 0.0-15.0 [facility] Activated partial thrombopla stin time (aPTT) in platelet poor plasma by coagulation aOrdered By: Marcio Steven on 11-30-2022 aPTT Coag (PPP) [Time] 32.4 s 25.1-36.5 [facility] Comment on above: A hematocrit value g reater than 55% may lead to inaccurate results in coagulation testing. Patients having hematocrit values >55% require a special collection tube for coagulation studies. Please contact the laboratory at [phone] for redraw instructions. Alanine aminotransferase [En zymatic activity/volume] in Serum or PlasmaOrdered By: Marcio Steven on 11-30-2022 ALT [Catalytic activity/Vol] 16 U/L 7-52 [facility] Albumin [Mass/volume] in Ser um or Plasma by Bromocresol green (BCG) dye binding methoOrdered By: Marcio Steven on 11-30-2022 Albumin BCG dye [Mass/Vol] 4.4 g/dL 3.5-5.7 [facility] Alkaline phosphatase [Enzyma tic activity/volume] in Serum or PlasmaOrdered By: Marcio Steven on 11-30-2022 ALP [Catalytic activity/Vol] 73 U/L 34-104 [facility] Aspartate aminotransferase [ Enzymatic activity/volume] in Serum or PlasmaOrdered By: Marcio Steven on 11-30-2022 AST [Catalytic activity/Vol] 11 U/L 13-39 [facility] Basic Metabolic Panelon 11-12 Calcium [Mass/Vol] 9.4369877 mg/dL Normal 8.6-10 .3 mg/dL [facility] CO2 [Moles/Vol] 23.11713012 mmol/L Normal 21.0-3 1.0 mmol/L [facility] Creatinine [Mass/Vol] 0.41964859 mg/dL Normal 0. 60-1.20 mg/dL [facility] [employer] Other GFR/1.73 sq M.predicted MDRD (S/P/Bld) [Vol rate/Area] mL/min/{1.73_m2} [facility] [employer] Other Potassium [Moles/Vol] 4.46320011 mmol/L Normal 3 .5-5.1 mmol/L [facility] [employer] Other Basic Metabolic PanelOrdered By: Marcio Steven on 11-30-2022 Chloride [Moles/Vol] 104 mmol/L 98-107 [facility] Glucose [Mass/Vol] 77 mg/dL 70-100 [facility] Comment on above: ADA recommended refe rence rangeRandom Glucose Reference Range is dependent on time and content of last meal. Glucose of more than 200 mg/dL in a nonstressed, ambulatory subject supports the diagnosis of Diabetes Mellitus. Sodium [Moles/Vol] 138 mmol/L 136-145 [facility] Urea nitrogen [Mass/Vol] 9 mg/dL 7-25 [facility] Basophils Auto (Bld) [#/Vol] Ordered By: Marcio Steven on 11-30-2022 Basophils (Bld) [#/Vol] 0.1 10*3/uL 0.0-0.2 [facility] Basophils/100 WBC Auto (Bld) Ordered By: Marcio Steven on 11-30-2022 Basophils/100 WBC (Bld) 0.8 % . [facility] Bilirubin Test strip Ql (U)O rdered By: Marcio Steven on 11-30-2022 Bilirubin Ql (U) Negative Negative [facility] Bilirubin.direct [Mass/volum e] in Serum or PlasmaOrdered By: Marcio Steven on 11-30-2022 Bilirubin.direct [Mass/Vol] 0.00 mg/dL 0.03-0.18 [facility] Comment on above: If the DBIL is less than 0.1, IBIL is not able to becalculated. Bilirubin.total [Mass/volume ] in Serum or PlasmaOrdered By: Marcio Steven on 11-30-2022 Bilirubin [Mass/Vol] 0.9 mg/dL 0.3-1.0 [facility] COVID-19 Detected/Not Detect edOrdered By: Marcio Steven on 11-30-2022 SARS-CoV-2 (COVID-19) RNA LEO+non-probe Ql (Nph) Not detected Not Detecte [facility] Comment on above: This is a duplicate RP2.1 COVID (PCR) result to be used for statistical tracking purpose only. Calcium [Mass/volume] in Ser um or PlasmaOrdered By: Marcio Steven on 11-30-2022 Calcium [Mass/Vol] 9.5 mg/dL 8.6-10.3 [facility] Carbon dioxide, total [Moles /volume] in Serum or PlasmaOrdered By: Marcio Steven on 11-30-2022 CO2 [Moles/Vol] 23.9 mmol/L 21.0-31.0 [facility] Color Auto (U)Ordered By: Baljeet Steven on 11-30-2022 Color (U) Yellow Yellow [facility] Complete Blood Count Auto Di ffon 11-30-2022 Basophils (Bld) [#/Vol] 0.344215200 10*3/uL Normal 0.0-0.2 10*3/uL [facility] Basophils/100 WBC (Bld) 0.800 % . % [facility] Eosinophils (Bld) [#/Vol] 0.287513823 10*3/uL Normal 0.0-0.45 10*3/uL [facility] Eosinophils/100 WBC (Bld) 0.900 % . % [facility] Erythrocyte distribution width (RBC) [Ratio] 14.300 % Normal 11.9-15.3 % [facility] Hematocrit (Bld) [Volume fraction] 41.000 % Normal 34.0-46.4 % [facility] Hemoglobin (Bld) [Mass/Vol] 13.485279 g/dL Normal 11.8-15.4 g/dL [facility] Lymphocytes (Bld) [#/Vol] 2.520484819 10*3/uL Normal 1.00-4.8 10*3/uL [facility] Lymphocytes/100 WBC (Bld) 32.300 % . % [facility] MCH (RBC) [Entitic mass] 27.0000 pg Normal 24.7-34.3 pg [facility] MCV (RBC) [Entitic vol] 81.0000 fL Normal 80-100 fL [facility] Other Monocytes (Bld) [#/Vol] 0.917810531 10*3/uL Normal 0.0-0.8 10*3/uL [facility] Monocytes/100 WBC (Bld) 6.800 % . % [facility] Neutrophils (Bld) [#/Vol] 4.527465385 10*3/uL Normal 1.8-7.7 10*3/uL [facility] Neutrophils/100 WBC (Bld) 59.200 % . % [facility] Platelet mean volume (Bld) [Entitic vol] 7.2000 fL Normal 6.3-10.7 fL [facility] Other WBC (Bld) [#/Vol] 8.823078169 10*3/uL Normal 3.8 -11.6 10*3/uL [facility] Complete Blood Count Auto Diff 8.2 10*3/uL Normal 3.8-11.6 10*3/uL [facility] Complete Blood Count Auto Diff 33.3 g/dL Normal 32.0-35.0 g/dL [facility] Complete Blood Count Auto Diff 0.2 /100{WBC} Normal 0-0.5 /100{WBC} [facility] Complete Blood Count Auto Di ffOrdered By: Marcio Steven on 11-30-2022 Platelets (Bld) [#/Vol] 368 10*3/uL 150-450 [facility] RBC (Bld) [#/Vol] 5.06 10*6/uL 3.60-5.00 [facility] Creatine kinase [Enzymatic a ctivity/volume] in Serum or PlasmaOrdered By: Marcio Steven on 11-30-2022 CK [Catalytic activity/Vol] 18 U/L 30-223 [facility] Creatinine [Mass/volume] in Serum or PlasmaOrdered By: Marcio Steven on 11-30-2022 Creatinine [Mass/Vol] 0.83 mg/dL 0.60-1.20 [facility] Eosinophils Auto (Bld) [#/Vo l]Ordered By: Marcio Steven on 11-30-2022 Eosinophils (Bld) [#/Vol] 0.1 10*3/uL 0.0-0.45 [facility] Eosinophils/100 WBC Auto (Bl d)Ordered By: Marcio Steven on 11-30-2022 Eosinophils/100 WBC (Bld) 0.9 % . [facility] Erythrocyte distribution wid th Auto (RBC) [Ratio]Ordered By: Marcio Steven on 11-30-2022 Erythrocyte distribution width (RBC) [Ratio] 14.3 % 11.9-15.3 [facility] Fibrin D-dimer [Presence] in Platelet poor plasma by Latex agglutinationOrdered By: Marcio Steven on 11-30-2022 Fibrin D-dimer LA Ql (PPP) < 200 ng/mL 0-243 [facility] Comment on above: The reference range [...] coagulation studies. Please contact the laboratory at [phone] for redraw instructions. Free T4 (Free Thyroxine)on 0 11-30-2022 Free T4 [Mass/Vol] 1.08229698 ng/dL High 0.61- 1.12 ng/dL [facility] Globulin Calc (S) [Mass/Vol] Ordered By: Marcio Steven on 11-30-2022 Globulin (S) [Mass/Vol] 3.2 g/dL [facility] Glucose Glucometer (BldC) [M ass/Vol]Ordered By: Baljinder Polanco on 11-30-2022 Glucose [Mass/Vol] 100 mg/dL [facility] Comment on above: Random Glucose Refer ence Range is dependent on time and content of last meal. Glucose of more than 200 mg/dL in a nonstressed, ambulatory subject supports the diagnosis of Diabetes Mellitus. Hematocrit Auto (Bld) [Volum e fraction]Ordered By: Macrio Steven on 11-30-2022 Hematocrit (Bld) [Volume fraction] 41.0 % 34.0-46.4 [facility] Hemoglobin [Mass/volume] in BloodOrdered By: Marcio Steven on 11-30-2022 Hemoglobin (Bld) [Mass/Vol] 13.7 g/dL 11.8-15.4 [facility] INR in Platelet poor plasma by Coagulation assayOrdered By: Marcio Steven on 11-30-2022 INR Coag (PPP) [Relative time] 1.1 {INR} [facility] Comment on above: INR Therapeutic Rang [...] on 11-30-2022 Ketones (U) [Mass/Vol] Trace Negative [facility] Leukocytes [#/volume] correc jocelynn for nucleated erythrocytes in Blood by Automated counOrdered By: Marcio Steven on 11-30-2022 WBC corrected for nucl RBC Auto (Bld) [#/Vol] 8.2 10*3/uL 3.8-11.6 [facility] Lymphocytes Auto (Bld) [#/Vo l]Ordered By: Marcio Steven on 11-30-2022 Lymphocytes (Bld) [#/Vol] 2.7 10*3/uL 1.00-4.8 [facility] Lymphocytes/100 WBC Auto (Bl d)Ordered By: Marcio Steven on 11-30-2022 Lymphocytes/100 WBC (Bld) 32.3 % . [facility] MCH Auto (RBC) [Entitic mass ]Ordered By: Marcio Steven on 11-30-2022 MCH (RBC) [Entitic mass] 27.0 pg 24.7-34.3 [facility] MCHC Auto (RBC) [Mass/Vol]Or dered By: Marcio Steven on 11-30-2022 MCHC (RBC) [Mass/Vol] 33.3 g/dL 32.0-35.0 [facility] MCV Auto (RBC) [Entitic vol] Ordered By: Marcio Steven on 11-30-2022 MCV (RBC) [Entitic vol] 81.0 fL 80-100 [facility] Magnesium [Mass/volume] in S abdifatah or PlasmaOrdered By: Marcio Steven on 11-30-2022 Magnesium [Mass/Vol] 1.9 mg/dL 1.9-2.7 [facility] Monocyte distribution width [Entitic volume] in Blood by AutomatedOrdered By: Marcio Steven on 11-30-2022 Monocyte distribution width Auto (Bld) [Entitic vol] 19.22 % 0.00-20.00 [facility] Monocytes Auto (Bld) [#/Vol] Ordered By: Marcio Steven on 11-30-2022 Monocytes (Bld) [#/Vol] 0.6 10*3/uL 0.0-0.8 [facility] Monocytes/100 WBC Auto (Bld) Ordered By: Marcio Steven on 11-30-2022 Monocytes/100 WBC (Bld) 6.8 % . [facility] Natriuretic peptide B [Mass/ Vol]Ordered By: Marcio Steven on 11-30-2022 Natriuretic peptide B (Bld) [Mass/Vol] 13.0 pg/mL 5-100 [facility] Neutrophils Auto (Bld) [#/Vo l]Ordered By: Marcio Steven on 11-30-2022 Neutrophils (Bld) [#/Vol] 4.9 10*3/uL 1.8-7.7 [facility] Neutrophils/100 WBC Auto (Bl d)Ordered By: Marcio Steven on 11-30-2022 Neutrophils/100 WBC (Bld) 59.2 % . [facility] Nitrite Test strip Ql (U)Ord ered By: Marcio Steven on 11-30-2022 Nitrite Ql (U) Negative Negative [facility] No Panel InformationOrdered By: Marcio Steven on 11-30-2022 Estimated GFR (CKD-EPI) > 60.0 mL/Min [facility] Creatinine Clearance (Chem 114.08 [facility] Nucleated erythrocytes [Pres ence] in Blood by Automated countOrdered By: Marcio Steven on 11-30-2022 Nucleated RBC Auto Ql (Bld) 0.2 /100{WBC} 0-0.5 [facility] Platelet mean volume Auto (B ld) [Entitic vol]Ordered By: Marcio Steven on 11-30-2022 Platelet mean volume (Bld) [Entitic vol] 7.2 fL 6.3-10.7 [facility] Potassium [Moles/volume] in Serum or PlasmaOrdered By: Marcio Steven on 11-30-2022 Potassium [Moles/Vol] 4.1 mmol/L 3.5-5.1 [facility] Protein Auto test strip (U) [Mass/Vol]Ordered By: Marcio Steven on 11-30-2022 Protein (U) [Mass/Vol] Negative Negative [facility] Protein [Mass/volume] in Ser um or PlasmaOrdered By: Marcio Steven on 11-30-2022 Protein [Mass/Vol] 7.6 g/dL 6.4-8.9 [facility] Prothrombin time (PT)Ordered By: Marcio Steven on 11-30-2022 PT Coag (PPP) [Time] 12.5 s 9.0-12.9 [facility] Comment on above: A hematocrit value g reater than 55% may lead to inaccurate results in coagulation testing. Patients having hematocrit values >55% require a special collection tube for coagulation studies. Please contact the laboratory at [phone] for redraw instructions. Respiratory pathogens DNA an d RNA panel - Nasopharynx by LEO with non-probe detectionOrdered By: Marcio Steven on 11-30-2022 Respiratory pathogens DNA and RNA panel LEO+non-probe (Nph) [facility] Serum or plasma albumin/glob ulin mass ratioOrdered By: Marcio Steven on 11-30-2022 Albumin/Globulin [Mass ratio] 1.4 {ratio} [facility] Serum or plasma anion gap de terminationOrdered By: Marcio Steven on 11-30-2022 Anion gap [Moles/Vol] 14.2 mmol/L 6.0-15.0 [facility] Serum or plasma non-glucuron idated bilirubin measurement (mass/volume)Ordered By: Marcio Steven on 11-30-2022 Bilirubin.indirect [Mass/Vol] 0.9 mg/dL [facility] Specific gravity Auto test s trip (U) [Rel density]Ordered By: Marcio Steven on 11-30-2022 Specific gravity (U) [Rel density] 1.013 1.001-1.03 0 [facility] Thyroid Stimulating Hormoneo n 11-30-2022 TSH Qn 0.31673073616 m[IU]/L Low 0.45-5 .33 u[iU]/mL [facility] Thyrotropin [Units/volume] i n Serum or PlasmaOrdered By: Marcio Steven on 11-30-2022 TSH Qn 0.03 m[IU]/L 0.45-5.33 [facility] Thyroxine (T4) free [Mass/vo lume] in Serum or PlasmaOrdered By: Marcio Steven on 11-30-2022 Free T4 [Mass/Vol] 1.56 ng/dL 0.61-1.12 [facility] Triiodothyronine (T3) Free [ Mass/volume] in Serum or PlasmaOrdered By: Marcio Steven on 11-30-2022 Free T3 [Mass/Vol] 3.89 pg/mL 2.50-3.90 [facility] Urine clarity by refractomet ry automatedOrdered By: Marcio Steven on 11-30-2022 Clarity Refractometry automated (U) Clear Clear [facility] Urine glucose measurement by automated test strip (mass/volume)Ordered By: Marcio Steven on 11-30-2022 Glucose Auto test strip (U) [Mass/Vol] Normal mg/dL Normal [facility] Urine hemoglobin detection b y automated test stripOrdered By: Marcio Steven on 11-30-2022 Hemoglobin Auto test strip Ql (U) Negative Negative [facility] Urine leukocyte esterase det ection by automated test stripOrdered By: Marcio Steven on 11-30-2022 Leukocyte esterase Auto test strip Ql (U) Negative Negative [facility] Urobilinogen Auto test strip (U) [Mass/Vol]Ordered By: Marcio Steven on 11-30-2022 Urobilinogen (U) [Mass/Vol] Normal mg/dL Normal [facility] WBC Auto (Bld) [#/Vol]Ordere d By: Marcio Steven on 11-30-2022 WBC (Bld) [#/Vol] 8.2 10*3/uL 3.8-11.6 [facility] pH Auto test strip (U)Ordere d By: Marcio Steven on 11-30-2022 pH (U) [pH] 5.0-9.0 [facility] CORTISOL FREE, SERUMon 06-17 Cortisol, Free Dialysis, LCMS 0.649 ug/dL Normal [facility] Comment on above: Result Comment: Thes e tests were developed and their performance characteristics determined by [employer]. They have not been cleared or approved by the Food and Drug Administration. Reference Range: 8 AM 0.10 - 1.20 4 PM 0.042 - 0.872 Performed By: #### R [id number] #### [facility] [address] [place] [address] Dr. Dimple Parsons CBC AUTO DIFFon 06-16-2022 BASO # 0.1 103/ul Normal 0.0-0.1 [facility] Comment on above: Performed By: #### R [id number] #### [facility] [address] [place] [address] Dr. Dimple Parsons Basophils/100 WBC (Bld) 0.6 % Normal 0.2-2.0 [facility] Comment on above: Performed By: #### R [id number] #### [facility] [address] [place] [address] Dr. Dimple Parsons EO # 0.4 103/ul Normal 0.0-0.7 [facility] Comment on above: Performed By: #### R [id number] #### [facility] [address] [place] [address] Dr. Dimple Parsons Eosinophils/100 WBC (Bld) 4.0 % Normal 0.9-7.0 [facility] Comment on above: Performed By: #### R [id number] #### [facility] [address] [place] [address] Dr. Dimple Parsons Erythrocyte distribution width (RBC) [Ratio] 13.8 % Normal 11.0-15.0 [facility] Comment on above: Performed By: #### R [id number] #### [facility] [address] [place] [address] Dr. Dimple Parsons Hematocrit (Bld) [Volume fraction] 39.8 % Normal 36.0-48.0 [facility] Comment on above: Performed By: #### R [id number] #### [facility] [address] [place] [address] Dr. Dimple Parsons Hemoglobin (Bld) [Mass/Vol] 12.9 g/dL Normal 12.0-16.0 [facility] Comment on above: Performed By: #### R [id number] #### [facility] [address] [address] [address] Dimple Parsons IG # 0.02 10e3/ul Normal 0.00-0.03 [facility] Comment on above: Performed By: #### R [id number] #### [facility] [address] [place] [address] Dr. Dimple Parsons IG % 0.2 % Normal 0.0-0.5 [facility] Comment on above: Performed By: #### R [id number] #### [facility] [address] [place] [address] Dr. Dimple Parsons LYMPH # 3.1 103/ul Normal 1.2-3.8 [facility] Comment on above: Performed By: #### R [id number] #### [facility] [address] [place] [address] Dr. Dimple Parsons Lymphocytes/100 WBC (Bld) 33.5 % Normal 20.5-60.0 [facility] Comment on above: Performed By: #### R [id number] #### [facility] [address] [place] [address] Dr. Dimple Parsons MANUAL DIFF REQ NO Normal [facility] Comment on above: Performed By: #### R [id number] #### [facility] [address] [place] [address] Dr. Dimple Parsons MCH (RBC) [Entitic mass] 26.1 pg Critically low 26.7-34.0 [facility] Comment on above: Performed By: #### R [id number] #### [facility] [address] [address] [address] Dimple Parsons MCHC (RBC) [Mass/Vol] 32.4 g/dL Normal 29.9-35.2 [facility] Comment on above: Performed By: #### R [id number] #### [facility] [address] [place] [address] Dr. Dimple Parsons MCV (RBC) [Entitic vol] 80.4 fL Critically low 81.0-99.0 [facility] Comment on above: Performed By: #### R [id number] #### [facility] [address] [address] [address] Dimple Parsons MONO # 0.5 103/ul Normal 0.3-0.8 [facility] Comment on above: Performed By: #### R [id number] #### [facility] [address] [address] [address] Dimple Parsons Monocytes/100 WBC (Bld) 5.2 % Normal 1.7-12.0 [facility] Comment on above: Performed By: #### R [id number] #### [facility] [address] [place] [address] Dr. Dimple Parsons NEUT # 5.2 103/ul Normal 1.4-6.5 [facility] Comment on above: Performed By: #### R [id number] #### [facility] [address] [place] [address] Dr. Dimple Parsons Neutrophils/100 WBC (Bld) 56.5 % Normal 43.0-75.0 [facility] Comment on above: Performed By: #### R [id number] #### [facility] [address] [place] [address] Dr. Dimple Parsons Platelet mean volume (Bld) [Entitic vol] 8.7 fL Critically low 9.5-13.5 [facility] Comment on above: Performed By: #### R [id number] #### [facility] [address] [place] [address] Dr. Dimple Parsons PLT 376 103/ul Normal 150-450 [facility] Comment on above: Performed By: #### R [id number] #### [facility] [address] [place] [address] Dr. Dimple Parsons RBC 4.95 106/ul Normal 4.20-5.40 [facility] Comment on above: Performed By: #### R [id number] #### [facility] [address] [place] [address] Dr. Dimple Parsons WBC 9.3 103/ul Normal 4.0-11.0 [facility] Comment on above: Performed By: #### R [id number] #### [facility] [address] [address] [address] Dimple Parsons TESTOSTERONE, FREE,DIRECT, T OTALon 06-10-2022 Free Testosterone(Direct) 1.6 pg/mL Normal 0.0-4.2 [facility] Comment on above: Result Comment: Perf ormed at: BN Performed By: #### C BC #### [facility] [address] [place] [address] Dr. Dimple Parsons Testosterone [Mass/Vol] 22 ng/dL Normal 8-60 [facility] Comment on above: Result Comment: Perf ormed at: CB Performed By: #### C BC #### [facility] [address] [place] [address] Dr. Dimple Parsons ESTROGENon 2022 Estrogens, Total 413 pg/mL Normal [facility] Comment on above: Result Comment: Prep ubertal < 40 Female Cycle: 1-10 Days 16 - 328 11-20 Days 34 - 501 21-30 Days 48 - 350 Post-Menopausal 40 - 244 Performed By: #### D HEASUL #### [facility] [address] [place] [address] Dr. Dimple Parsons SEROTONINon 2022 Serotonin, Serum 20 ng/mL Critically low 31-207 [facility] Comment on above: Performed By: #### S EROTON #### [facility] [address] [place] [address] Dr. Dimple Parsons REVERSE T3on 06-08-2022 Reverse T3, Serum 15.6 ng/dL Normal 9.2-24.1 [facility] Comment on above: Result Comment: This test was developed and its performance characteristics determined by [facility]. It has not been cleared or approved by the Food and Drug Administration. Performed By: #### R [email or web address] #### [facility] [address] [place] [address] Dr. Dimple Parsons VIT D 1 25 DIHYDROXYon 06-07 Calcitriol(1,25 di-OH Vit D) 12.2 pg/mL Critically low 24.8-81.5 [facility] Comment on above: Performed By: #### V [id number] #### [facility] [address] [place] [address] Dr. Dimple Parsons C-PEPTIDE, SERUMon C-Peptide, Serum 3.3 ng/mL Normal 1.1-4.4 [facility] Comment on above: Result Comment: C-Pe ptide reference interval is for fasting patients. Performed By: #### R [email or web address] #### [facility] [address] [place] [address] Dr. Dimple Parsons DHEA-SULFATEon 06-05-2022 DHEA-Sulfate 154.0 ug/dL Normal 84.8-378.0 [facility] Comment on above: Performed By: #### Inder CADENA #### [facility] [address] [place] [address] Dr. Dimple Parsons ESTRADIOLon 06-05-2022 Estradiol 117.0 pg/mL Normal [facility] Comment on above: Result Comment: Adul t Female: Follicular phase 12.5 - 166.0 Ovulation phase 85.8 - 498.0 Luteal phase 43.8 - 211.0 Postmenopausal <6.0 - 54.7 1st trimester 215.0 - >4300.0 Kye ECLIA methodology Performed By: #### R [id number] #### [facility] [address] [place] [address] Dr. Dimple Parsons INSULINon 06-05-2022 Insulin 13.1 uIU/mL Normal 2.6-24.9 [facility] Comment on above: Performed By: #### C BC #### [facility] [address] [place] [address] Dr. Dimple Parsons PROGESTERONEon 06-05-2022 Progesterone 4.8 ng/mL Normal [facility] Comment on above: Result Comment: Foll icular phase 0.1 - 0.9 Luteal phase 1.8 - 23.9 Ovulation phase 0.1 - 12.0 First trimester 11.0 - 44.3 Second trimester 25.4 - 83.3 Third trimester 58.7 - 214.0 Postmenopausal 0.0 - 0.1 Performed By: #### Inder CADENA #### [facility] [address] [place] [address] Dr. Dimple Parsons SEX HORMONE-BINDING GLOBULIN on 06-05-2022 Sex Horm Binding Glob, Serum 40.7 nmol/L Normal 24.6-122.0 [facility] Comment on above: Performed By: #### Jocelyne BC #### [facility] [address] [place] [address] Dr. Dimple Parsons T3, TOTAL (TRIIODOTHYRONINE) on 06-05-2022 T3, TOTAL 89 ng/dL Normal 71-180 [facility] Comment on above: Performed By: #### Rob EVRT3 #### [facility] [address] [place] [address] Dr. Dimple Parsons THYROID PEROXIDASE ABon 05-13 Thyroid Peroxidase (TPO) Ab 12 IU/mL Normal 0-34 [facility] Comment on above: Performed By: #### Inder CADENA #### [facility] [address] [place] [address] Dr. Dimple Parsons FERRITINon 06-04-2022 Ferritin [Mass/Vol] 193.0 ng/mL Critically high 6.2-137.0 [facility] Comment on above: Performed By: ###Rick CADENA #### [facility] [address] [place] [address] Dr. Dimple Parsons FREE T3on 06-04-2022 FREE T3 2.24 pg/mlL Normal 2.18-3.98 [facility] Comment on above: Performed By: #### Rob PABONRT3 #### [facility] [address] [place] [address] Dr. Dimple Parsons FREE T4on 06-04-2022 Free T4 [Mass/Vol] 1.14 ng/dL Normal 0.76-1.46 [facility] Comment on above: Performed By: #### Inder CADENA #### [facility] [address] [place] [address] Dr. Dimple Parsons GLUCOSE BLOODon 06-04-2022 Glucose [Mass/Vol] 92 mg/dL Normal 74-106 [facility] Comment on above: Performed By: #### Rob EVRT3 #### [facility] [address] [place] [address] Dr. Dimple Parsons GLYCOHEMOGLOBIN A1Con 2022 ADA RECOMMENDATION SEE BELOW Normal [facility] Comment on above: Result Comment: ADA RECOMMENDED LIMIT 4.0 - 6.0 ADA THERAPEUTIC TARGET < 7.0 ACTION SUGGESTED > 7.0 Performed By: #### A 1C #### [facility] [address] [place] [address] Dr. Dimple Parsons Glucose [Mass/Vol] 100 mg/dL Normal [facility] Comment on above: Performed By: #### A 1C #### [facility] [address] [place] [address] Dr. Dimple Parsons HbA1c (Bld) [Mass fraction] 5.1 % Normal 4.5-6.2 [facility] Comment on above: Performed By: #### A 1C #### [facility] [address] [place] [address] Dr. Dimple Parsons T4on 06-04-2022 T4 [Mass/Vol] 8.60 ug/dL Normal 4.80-13.90 [facility] Comment on above: Performed By: #### R [id number] #### [facility] [address] [place] [address] Dr. Dimple Parsons TSHon 06-04-2022 TSH 0.442 uIU/mL Normal 0.358-3.74 0 [facility] Comment on above: Performed By: #### R [email or web address] #### [facility] [address] [place] [address] Dr. Dimple Parsons US PELVIS AND TRANSVAGon [...] for complete resolution. Electronically authenticated by: KAYLA GORDON Date: 2022-05-25 13:36 Normal [facility] XR KUB 1 VIEWon 05-21-2022 XR KUB [...] DAVID ALDANA Date: 2022-05-21 06:53 Normal [facility] CBC AUTO DIFFon 05-08-2022 BASO # 0.0 103/ul Normal 0.0-0.1 [facility] Comment on above: Performed By: #### C BC #### [facility] [address] [place] [address] Dr. Dimple Parsons Basophils/100 WBC (Bld) 0.3 % Normal 0.2-2.0 [facility] Comment on above: Performed By: #### C BC #### [facility] [address] [place] [address] Dr. Dimple Parsons EO # 0.2 103/ul Normal 0.0-0.7 [facility] Comment on above: Performed By: #### C BC #### [facility] [address] [place] [address] Dr. Dimple Parsons Eosinophils/100 WBC (Bld) 1.3 % Normal 0.9-7.0 [facility] Comment on above: Performed By: #### C BC #### [facility] [address] [place] [address] Dr. Dimple Parsons Erythrocyte distribution width (RBC) [Ratio] 13.9 % Normal 11.0-15.0 [facility] Comment on above: Performed By: #### C BC #### [facility] [address] [place] [address] Dr. Dimple Parsons Hematocrit (Bld) [Volume fraction] 38.8 % Normal 36.0-48.0 [facility] Comment on above: Performed By: #### C BC #### [facility] [address] [place] [address] Dr. Dimple Parsons Hemoglobin (Bld) [Mass/Vol] 12.8 g/dL Normal 12.0-16.0 [facility] Comment on above: Performed By: #### C BC #### [facility] [address] [place] [address] Dr. Dimple Parsons IG # 0.15 10e3/ul Critically high 0.00-0.03 [facility] Comment on above: Performed By: #### C BC #### [facility] [address] [place] [address] Dr. Dimple Parsons IG % 1.3 % Critically high 0.0-0.5 [facility] Comment on above: Performed By: #### C BC #### [facility] [address] [place] [address] Dr. Dimple Parsons LYMPH # 3.4 103/ul Normal 1.2-3.8 [facility] Comment on above: Performed By: #### C BC #### [facility] [address] [place] [address] Dr. Dimple Parsons Lymphocytes/100 WBC (Bld) 28.9 % Normal 20.5-60.0 [facility] Comment on above: Performed By: #### C BC #### [facility] [address] [place] [address] Dr. Dimple Parsons MANUAL DIFF REQ NO Normal [facility] Comment on above: Performed By: #### C BC #### [facility] [address] [place] [address] Dr. Dimple Parsons MCH (RBC) [Entitic mass] 25.9 pg Critically low 26.7-34.0 [facility] Comment on above: Performed By: #### C BC #### [facility] [address] [place] [address] Dr. Dimple Parsons MCHC (RBC) [Mass/Vol] 33.0 g/dL Normal 29.9-35.2 [facility] Comment on above: Performed By: #### C BC #### [facility] [address] [place] [address] Dr. Dimple Parsons MCV (RBC) [Entitic vol] 78.5 fL Critically low 81.0-99.0 [facility] Comment on above: Performed By: #### C BC #### [facility] [address] [place] [address] Dr. Dimple Parsons MONO # 0.7 103/ul Normal 0.3-0.8 [facility] Comment on above: Performed By: #### C BC #### [facility] [address] [place] [address] Dr. Dimple Parsons Monocytes/100 WBC (Bld) 6.2 % Normal 1.7-12.0 [facility] Comment on above: Performed By: #### C BC #### [facility] [address] [place] [address] Dr. Dimple Parsons NEUT # 7.3 103/ul Critically high 1.4-6.5 [facility] Comment on above: Performed By: #### C BC #### [facility] [address] [place] [address] Dr. Dimple Parsons Neutrophils/100 WBC (Bld) 62.0 % Normal 43.0-75.0 [facility] Comment on above: Performed By: #### C BC #### [facility] [address] [place] [address] Dr. Dimple Parsons Platelet mean volume (Bld) [Entitic vol] 9.1 fL Critically low 9.5-13.5 [facility] Comment on above: Performed By: #### C BC #### [facility] [address] [place] [address] Dr. Dimple Parsons PLT 426 103/ul Normal 150-450 [facility] Comment on above: Performed By: #### C BC #### [facility] [address] [place], [place] [address] Dr. Dimple Parsons RBC 4.94 106/ul Normal 4.20-5.40 [facility] Comment on above: Performed By: #### C BC #### [facility] [address] [place], [place] [address] Dr. Dimple Parsons WBC 11.9 103/ul Critically high 4.0-11.0 [facility] Comment on above: Performed By: #### C BC #### [facility] [address] [place], [place] [address] ABD/PELVIS WO CONon [...] outpatient ultrasound. Note: Exam was submitted to [facility] operations Incidental Findings call que, to call the above findings to the patient's primary care provider nonemergently. Electronically authenticated by: RERE CARLISLE Date: 2022-05-08 05:24 Normal [facility] PROF 14(COMP METB)on 05-08- 023 Albumin [Mass/Vol] 4.0 g/dL Normal 3.4-5.0 [facility] Comment on above: Performed By: #### R [email or web address] #### [facility] [address] [place] [address] Dr. Dimple Parsons Albumin/Globulin [Mass ratio] 1.1 {ratio} Normal [facility] Comment on above: Performed By: #### R [email or web address] #### [facility] [address] [place] [address] Dr. Dimple Parsons ALP [Catalytic activity/Vol] 76 U/L Normal 46-116 [facility] Comment on above: Performed By: #### R [email or web address] #### [facility] [address] [place] [address] Dr. Dimple Parsons ALT [Catalytic activity/Vol] 20 U/L Normal 14-59 [facility] Comment on above: Performed By: #### R [email or web address] #### [facility] [address] [address] [address] Dimple Parsons Anion gap [Moles/Vol] 14.9 mmol/L Normal [facility] Comment on above: Performed By: #### R [email or web address] #### [facility] [address] [place] [address] Dr. Dimple Parsons AST [Catalytic activity/Vol] 19 U/L Normal 15-37 [facility] Comment on above: Performed By: #### R [email or web address] #### [facility] [address] [address] [address] Dimple Parsons Bilirubin [Mass/Vol] 0.6 mg/dL Normal 0.2-1.0 [facility] Comment on above: Performed By: #### R EVRT3 #### [facility] [address] [place] [address] Dr. Dimple Parsons Calcium [Mass/Vol] 9.0 mg/dL Normal 8.5-10.1 [facility] Comment on above: Performed By: #### R [email or web address] #### [facility] [address] [place] [address] Dr. Dimple Parsons Chloride [Moles/Vol] 103 mmol/L Normal 98-107 [facility] Comment on above: Performed By: #### R EVRT3 #### [facility] [address] [place] [address] Dr. Dimple Parsons CO2 [Moles/Vol] 25.5 mmol/L Normal 21.0-32.0 [facility] Comment on above: Performed By: #### R [email or web address] #### [facility] [address] [place] [address] Dr. Dimple Parsons Creatinine [Mass/Vol] 0.75 mg/dL Normal 0.55-1.02 [facility] Comment on above: Performed By: #### R [email or web address] #### [facility] [address] [place] [address] Dr. Dimple Parsons EGFR-AF GERMAN >60 Normal >=60 [facility] Comment on above: Performed By: #### R [email or web address] #### [facility] [address] [place] [address] Dr. Dimple Parsons EGFR-NON AF GERMAN >60 Normal >=60 [facility] Comment on above: Performed By: #### R [email or web address] #### [facility] [address] [place] [address] Dr. Dimple Parsons Globulin (S) [Mass/Vol] 3.8 g/dL Normal [facility] Comment on above: Performed By: #### R [email or web address] #### [facility] [address] [address] [address] Dimple Parsons Glucose [Mass/Vol] 107 mg/dL Critically high 74-[address] [facility] Comment on above: Performed By: #### R [email or web address] #### [facility] [address] [place] [address] Dr. Dimple Parsons Potassium [Moles/Vol] 3.4 mmol/L Critically low 3.5-5.1 [facility] Comment on above: Performed By: #### R [email or web address] #### [facility] [address] [place] [address] Dr. Dimple Parsons Protein [Mass/Vol] 7.8 g/dL Normal 6.4-8.2 [facility] Comment on above: Performed By: #### R [id number] #### [facility] [address] [place] [address] Dr. Dimple Parsons Sodium [Moles/Vol] 140 mmol/L Normal 136-145 [facility] Comment on above: Performed By: #### R [id number] #### [facility] [address] [place] [address] Dr. Dimple Parsons Urea nitrogen [Mass/Vol] 7.0 mg/dL Normal 7.0-18.0 [facility] Comment on above: Performed By: #### R [email or web address] #### [facility] [address] [place] [address] Dr. Dimple Parsons Urea nitrogen/Creatinine [Mass ratio] 9.3 mg/mg Normal [facility] Comment on above: Performed By: #### R [email or web address] #### [facility] [address] [place], [place] [id number] Dr. Dimple Parsons US PELVIS TRANSVAGon 023 [...] LEATHA GALVAN Date: 2022-05-08 08:57 Normal [facility] CBC AUTO DIFFon 01-13-2022 BASO # 0.1 103/ul Normal 0.0-0.1 [facility] Comment on above: Performed By: #### C BC #### [facility] [address] [place] [address] Dr. Dimple Parsons Basophils/100 WBC (Bld) 0.5 % Normal 0.2-2.0 [facility] Comment on above: Performed By: #### C BC #### [facility] [address] [place] [address] Dr. Dimple Parsons EO # 0.2 103/ul Normal 0.0-0.7 [facility] Comment on above: Performed By: #### C BC #### [facility] [address] [place] [address] Dr. Dimple Parsons Eosinophils/100 WBC (Bld) 2.3 % Normal 0.9-7.0 [facility] Comment on above: Performed By: #### C BC #### [facility] [address] [place] [address] Dr. Dimple Parsons Erythrocyte distribution width (RBC) [Ratio] 13.2 % Normal 11.0-15.0 [facility] Comment on above: Performed By: #### C BC #### [facility] [address] [place] [address] Dr. Dimple Parsons Hematocrit (Bld) [Volume fraction] 40.5 % Normal 36.0-48.0 [facility] Comment on above: Performed By: #### C BC #### [facility] [address] [place] [address] Dr. Dimple Parsons Hemoglobin (Bld) [Mass/Vol] 13.0 g/dL Normal 12.0-16.0 [facility] Comment on above: Performed By: #### C BC #### [facility] [address] [place] [address] Dr. Dimple Parsons IG # 0.01 10e3/ul Normal 0.00-0.03 [facility] Comment on above: Performed By: #### C BC #### [facility] [address] [place] [address] Dr. Dimple Parsons IG % 0.1 % Normal 0.0-0.5 [facility] Comment on above: Performed By: #### C BC #### [facility] [address] [place] [address] Dr. Dimple Parsons LYMPH # 2.6 103/ul Normal 1.2-3.8 [facility] Comment on above: Performed By: #### C BC #### [facility] [address] [place] [address] Dr. Dimple Parsons Lymphocytes/100 WBC (Bld) 27.4 % Normal 20.5-60.0 [facility] Comment on above: Performed By: #### C BC #### [facility] [address] [place] [address] Dr. Dimple Parsons MANUAL DIFF REQ NO Normal [facility] Comment on above: Performed By: #### C BC #### [facility] [address] [place] [address] Dr. Dimple Parsons MCH (RBC) [Entitic mass] 26.4 pg Critically low 26.7-34.0 [facility] Comment on above: Performed By: #### C BC #### [facility] [address] [address] [address] Dimple Parsons MCHC (RBC) [Mass/Vol] 32.1 g/dL Normal 29.9-35.2 [facility] Comment on above: Performed By: #### C BC #### [facility] [address] [address] [address] Dimple Parsons MCV (RBC) [Entitic vol] 82.2 fL Normal 81.0-99.0 [facility] Comment on above: Performed By: #### C BC #### [facility] [address] [place] [address] Dr. Dimple Parsons MONO # 0.6 103/ul Normal 0.3-0.8 [facility] Comment on above: Performed By: #### C BC #### [facility] [address] [place] [address] Dr. Dimple Parsons Monocytes/100 WBC (Bld) 6.2 % Normal 1.7-12.0 [facility] Comment on above: Performed By: #### C BC #### [facility] [address] [place] [address] Dr. Dimple Parsons NEUT # 6.1 103/ul Normal 1.4-6.5 [facility] Comment on above: Performed By: #### C BC #### [facility] [address] [place] [address] Dr. Dimple Parsons Neutrophils/100 WBC (Bld) 63.5 % Normal 43.0-75.0 [facility] Comment on above: Performed By: #### C BC #### [facility] [address] [place] [address] Dr. Dimple Parsons Platelet mean volume (Bld) [Entitic vol] 9.0 fL Critically low 9.5-13.5 [facility] Comment on above: Performed By: #### C BC #### [facility] [address] [place] [address] Dr. Dimple Parsons PLT 346 103/ul Normal 150-450 [facility] Comment on above: Performed By: #### C BC #### [facility] [address] [address] [address] Dimple Parsons RBC 4.93 106/ul Normal 4.20-5.40 [facility] Comment on above: Performed By: #### C BC #### [facility] [address] [place] [address] Dr. Dimple Parsons WBC 9.5 103/ul Normal 4.0-11.0 [facility] Comment on above: Performed By: #### C BC #### [facility] [address] [place] [address] Dr. Dimple Parsons FREE T4on 01-13-2022 Free T4 [Mass/Vol] 1.39 ng/dL Normal 0.76-1.46 [facility] Comment on above: Performed By: #### C BC #### [facility] [address] [place] [address] Dr. Dimple Parsons PROF CHEM 8 (BAS METB)on Anion gap [Moles/Vol] 10.4 mmol/L Normal [facility] Comment on above: Performed By: #### Inder CADENA #### [facility] [address] [place] [address] Dr. Dimple Parsons Calcium [Mass/Vol] 9.0 mg/dL Normal 8.5-10.1 [facility] Comment on above: Performed By: #### Inder CADENA #### [facility] [address] [place] [address] Dr. Dimple Parsons Chloride [Moles/Vol] 101 mmol/L Normal 98-107 The [facility] Comment on above: Performed By: #### Inder CADENA #### [facility] [address] [place] [address] Dr. Dimple Parsons CO2 [Moles/Vol] 29.3 mmol/L Normal 21.0-32.0 [facility] Comment on above: Performed By: #### Inder CADENA #### [facility] [address] [place] [address] Dr. Dimple Parsons Creatinine [Mass/Vol] 0.79 mg/dL Normal 0.55-1.02 [facility] Comment on above: Performed By: #### Inder CADENA #### [facility] [address] [address] [address] Dimple Parsons EGFR-AF GERMAN >60 Normal >=60 [facility] Comment on above: Performed By: #### Inder CADENA #### [facility] [address] [address] [address] Dimple Parsons EGFR-NON AF GERMAN >60 Normal >=60 [facility] Comment on above: Performed By: #### Inder CADENA #### [facility] [address] [address] [address] Dimple Parsons Glucose [Mass/Vol] 92 mg/dL Normal 74-106 [facility] Comment on above: Performed By: #### Inder CADENA #### [facility] [address] [address] [address] Dimple Parsons Potassium [Moles/Vol] 3.7 mmol/L Normal 3.5-5.1 [facility] Comment on above: Performed By: #### Inder CADENA #### [facility] [address] [address] [address] Dimple Parsons Sodium [Moles/Vol] 137 mmol/L Normal 136-145 [facility] Comment on above: Performed By: #### Inder CADENA #### [facility] [address] [address] [address] Dimple Parsons Urea nitrogen [Mass/Vol] 11.0 mg/dL Normal 7.0-18.0 [facility] Comment on above: Performed By: #### Inder CADENA #### [facility] [address] [address] [address] Dimple Parsons Urea nitrogen/Creatinine [Mass ratio] 13.9 mg/mg Normal [facility] Comment on above: Performed By: #### Inder CADENA #### [facility] [address] [address] [address] Dimple Parsons PROTIMEon 01-13-2022 INR Coag (PPP) [Relative time] 1.04 {INR} Normal [facility] Comment on above: Performed By: #### P TT, PT #### [facility] [address] [place] [address] Dr. Dimple Parsons INR GUIDELINES SEE BELOW [facility] Comment on above: Result Comment: VISHAL RED INR: 2.0 - 3.0 CONDITIONS NOT LISTED BELOW 2.5 - 3.5 FOR PROSTHETIC HEART VALVE REPLACEMENT 2.5 - 3.5 RECURRENT THROMBOSIS Performed By: #### P TT, PT #### [facility] [address] [place] [address] Dr. Dimple Parsons PT Coag (PPP) [Time] 11.2 s Normal 9.0-11.6 [facility] Comment on above: Performed By: #### P TT, PT #### [facility] [address] [place] [address] Dr. Dimple Parsons PTTon 01-13-2022 aPTT Coag (Bld) [Time] 35.1 s Normal 22.3-36.2 [facility] Comment on above: Performed By: #### P TT, PT #### [facility] [address] [place] [address] Dr. Dimple Parsons TSHon 01-13-2022 TSH 1.528 uIU/mL Normal 0.358-3.74 0 [facility] Comment on above: Performed By: #### T SH #### [facility] [address] [place] [address] Dr. Dimple Parsons PAP ACOG PANEL 2: 30 to 65on 12-26-2021 . . Normal [facility] Comment on above: Result Comment: Perf ormed at: WB Performed By: #### C BC #### [facility] [address] [place] [address] Dr. Dimple Parsons Age Gdln ACOG Testing 30-65 [facility] Comment on above: Performed By: #### C BC #### [facility] [address] [place] [address] Dr. Dimple Parsons DIAGNOSIS: Comment Normal [facility] Comment on above: Result Comment: NEGA TIVE FOR INTRAEPITHELIAL LESION OR MALIGNANCY. Performed at: WB Performed By: #### C BC #### [facility] [address] [address] [address] Dimple Parsons HPV Aptima Negative Normal Negative [facility] Comment on above: Result Comment: This nucleic acid amplification test detects fourteen high-risk HPV types (16,18,31,33,35,39,45,51,52,56,58,59,66,68) without differentiation. Performed at: =G Performed By: #### C BC #### [facility] [address] [address] [address] Dimple Parsons Methodology: Comment Normal [facility] Comment on above: Result Comment: This liquid based ThinPrep(R) pap test was screened with the use of an image guided system. Performed at: WB Performed By: #### C BC #### [facility] [address] [place] [address] Dr. Dimple Parsons Note: Comment Normal [facility] Comment on above: Result [...] WB Performed By: #### C BC #### [facility] [address] [place] [address] Dr. Dimple Parsons Performed by: Comment Normal [facility] Comment on above: Result Comment: Susan [employer] Ball[employer] Expert (ASCP) Performed at: WB Performed By: #### C BC #### [facility] [address] [place] [address] Dr. Dimple Parsons Specimen adequacy: Comment Normal [facility] Comment on above: Result Comment: Sati sfactory for evaluation. No endocervical component is identified. Performed at: WB Performed By: #### C BC #### [facility] [address] [place] [address] Dr. Dimple Parsons COVID Quick Testingon 2021 Result Negative [facility] Other Vital Signs Date Time Vital Sign Value Performing Clinician Facility 11-20-2024 10:04-0400 Diastolic blood pressure 93 mm[Hg] Nato Hawkins MD Work Phone: [facility] 11-20-2024 10:04-0400 Systolic blood pressure 133 mm[Hg] Nato Hawkins MD Work Phone: [facility] 10-09-2024 13:09-0400 Body mass index (BMI) [Ratio] 30.92 kg/m2 Brent Asuncion DO Work Phone: [facility] 10-09-2024 [id number] Body weight 97.75 kg Brent Asuncion DO Work Phone: [facility] 10-09-2024 13:09-0400 Diastolic blood pressure 82 mm[Hg] Brent Asuncion DO Work Phone: [facility] 10-09-2024 13:09-0400 Systolic blood pressure 122 mm[Hg] Brent Asuncion DO Work Phone: [facility] 09-05-2024 13:46-0400 Body height 175.26 cm Saniya Mays APRN Work Phone: [facility] 09-05-2024 13:46-0400 Body mass index (BMI) [Ratio] 31.3 kg/m2 Saniya Mays APRN Work Phone: [facility] 09-05-2024 13:46-0400 Body temperature 98.8 [degF] Saniya Mays APRN Work Phone: [facility] 09-05-2024 13:46-0400 Body weight 96.16 kg Saniya Mays APRN Work Phone: [facility] 09-05-2024 13:46-0400 Diastolic blood pressure 80 mm[Hg] Saniya Mays APRN Work Phone: [facility] 09-05-2024 13:46-0400 Systolic blood pressure 124 mm[Hg] Saniya Mays APRN Work Phone: [facility] 08-14-2024 13:38-0400 Body mass index (BMI) [Ratio] 30.68 kg/m2 Yesica OSWALD Work Phone: [facility] 08-14-2024 13:38-0400 Body weight 96.98 kg Yesica Mcnair PA Work Phone: [facility] 08-14-2024 13:38-0400 Diastolic blood pressure 84 mm[Hg] Yesica Mcnair PA Work Phone: [facility] 08-14-2024 13:38-0400 Systolic blood pressure 122 mm[Hg] Yesica Mcnair PA Work Phone: [facility] 07-23-2024 09:36-0400 Body mass index (BMI) [Ratio] 30.71 kg/m2 Brent Asuncion DO Work Phone: [facility] 07-23-2024 09:36-0400 Body weight 97.07 kg Brent Asuncion DO Work Phone: [facility] 07-23-2024 09:36-0400 Diastolic blood pressure 72 mm[Hg] Brent Asuncion DO Work Phone: [facility] 07-23-2024 09:36-0400 Systolic blood pressure 122 mm[Hg] Brent Asuncion DO Work Phone: [facility] 07-10-2024 10:02-0400 Body mass index (BMI) [Ratio] 31.13 kg/m2 Brent Asuncion DO Work Phone: [facility] 07-10-2024 10:02-0400 Body weight 95.62 kg Brent Asuncion DO Work Phone: [facility] 07-10-2024 10:02-0400 Diastolic blood pressure 84 mm[Hg] Brent Asuncion DO Work Phone: [facility] 07-10-2024 10:02-0400 Systolic blood pressure 124 mm[Hg] Brent Asuncion DO Work Phone: [facility] 05-16-2024 10:18-0500 Body height 175.26 cm [facility] 05-16-2024 10:18-0500 Body mass index (BMI) [Ratio] 29.9 kg/m2 [facility] 05-16-2024 10:18-0500 Body temperature 97.2 [degF] [facility] 05-16-2024 10:18-0500 Body weight 92.07 kg [facility] 05-16-2024 10:18-0500 Diastolic blood pressure 82 mm[Hg] [facility] 05-16-2024 10:18-0500 Heart rate 106 /min [facility] 05-16-2024 10:18-0500 SaO2% (BldA) [Mass fraction] 98 % [facility] 05-16-2024 10:18-0500 Systolic blood pressure 122 mm[Hg] [facility] 03-15-2024 11:31-0500 Body height 175.26 cm [facility] 03-15-2024 11:31-0500 Body mass index (BMI) [Ratio] 31.3 kg/m2 [facility] 03-15-2024 11:31-0500 Body temperature 96.5 [degF] [facility] 03-15-2024 11:31-0500 Body weight 96.27 kg [facility] 03-15-2024 11:31-0500 Diastolic blood pressure 72 mm[Hg] [facility] 03-15-2024 11:31-0500 Heart rate 92 /min [facility] 03-15-2024 11:31-0500 SaO2% (BldA) [Mass fraction] 97 % [facility] 03-15-2024 11:31-0500 Systolic blood pressure 122 mm[Hg] [facility] 02-15-2024 13:04-0500 Body height 175.26 cm [facility] 02-15-2024 13:04-0500 Body mass index (BMI) [Ratio] 31.8 kg/m2 [facility] 02-15-2024 13:04-0500 Body temperature 97.3 [degF] [facility] 02-15-2024 13:04-0500 Body weight 97.63 kg [facility] 02-15-2024 13:04-0500 Diastolic blood pressure 80 mm[Hg] [facility] 02-15-2024 13:04-0500 Heart rate 114 /min [facility] 02-15-2024 13:04-0500 SaO2% (BldA) [Mass fraction] 98 % [facility] 02-15-2024 13:04-0500 Systolic blood pressure 122 mm[Hg] [facility] 12-02-2023 10:38-0400 Body height 175.26 cm [facility] 12-02-2023 10:38-0400 Body mass index (BMI) [Ratio] 31.3 kg/m2 [facility] 12-02-2023 10:38-0400 Body weight 96.16 kg [facility] 12-02-2023 10:38-0400 Diastolic blood pressure 90 mm[Hg] [facility] 12-02-2023 10:38-0400 Heart rate 81 /min [facility] 12-02-2023 10:38-0400 Systolic blood pressure 133 mm[Hg] [facility] 10-10-2023 11:23-0400 Body height 175.26 cm [facility] 10-10-2023 11:23-0400 Body mass index (BMI) [Ratio] 31.1 kg/m2 [facility] 10-10-2023 11:23-0400 Body weight 95.84 kg [facility] 10-10-2023 11:23-0400 Diastolic blood pressure 70 mm[Hg] [facility] 10-10-2023 11:23-0400 Heart rate 98 /min [facility] 10-10-2023 11:23-0400 SaO2% (BldA) [Mass fraction] 98 % [facility] 10-10-2023 11:23-0400 Systolic blood pressure 128 mm[Hg] [facility] 10-03-2023 14:50-0400 Body height 175.26 cm [facility] 10-03-2023 14:50-0400 Body mass index (BMI) [Ratio] 31.3 kg/m2 [facility] 10-03-2023 14:50-0400 Body weight 96.16 kg [facility] 10-03-2023 14:50-0400 Diastolic blood pressure 86 mm[Hg] [facility] 10-03-2023 14:50-0400 Heart rate 85 /min [facility] 10-03-2023 14:50-0400 Systolic blood pressure 125 mm[Hg] [facility] 09-07-2023 13:03-0400 Body height 175.26 cm [facility] 09-07-2023 13:03-0400 Body mass index (BMI) [Ratio] 31.1 kg/m2 [facility] 09-07-2023 13:03-0400 Body weight 95.7 kg [facility] 09-07-2023 13:03-0400 Diastolic blood pressure 62 mm[Hg] [facility] 09-07-2023 13:03-0400 Heart rate 61 /min [facility] 09-07-2023 13:03-0400 SaO2% (BldA) [Mass fraction] 97 % [facility] 09-07-2023 13:03-0400 Systolic blood pressure 102 mm[Hg] [facility] 06-17-2023 14:03-0400 Body height 175.26 cm [facility] 06-17-2023 14:03-0400 Body mass index (BMI) [Ratio] 31.6 kg/m2 [facility] 06-17-2023 14:03-0400 Body weight 97.12 kg [facility] 06-17-2023 14:03-0400 Diastolic blood pressure 92 mm[Hg] [facility] 06-17-2023 14:03-0400 Heart rate 109 /min [facility] 06-17-2023 14:03-0400 Systolic blood pressure 136 mm[Hg] [facility] 04-04-2023 14:15-0500 Body height 175.26 cm Surya Hodges Other [facility] 04-04-2023 14:15-0500 Body mass index (BMI) [Ratio] 30.42 kg/m2 Surya Hodges Other [facility] [employer] Other 04-04-2023 14:15-0500 Body weight 93.44 kg Surya Hodges Other [facility] 04-04-2023 14:15-0500 Diastolic blood pressure 85 mm[Hg] Surya Hodges Other [facility] 04-04-2023 14:15-0500 Systolic blood pressure 120 mm[Hg] Surya Hodges Other [facility] 12-17-2022 08:30-0400 Body height 175.26 cm Surya Hodges Other [facility] [employer] Other 12-17-2022 08:30-0400 Body mass index (BMI) [Ratio] 29.5 kg/m2 Surya Hodges Other [facility] [employer] Other 12-17-2022 08:30-0400 Body weight 90.63 kg Surya Hodges Other [facility] [employer] Other 12-17-2022 08:30-0400 Diastolic blood pressure 85 mm[Hg] Surya Hodges Other [facility] [employer] Other 12-17-2022 08:30-0400 Systolic blood pressure 120 mm[Hg] Surya Hodges Other [facility] [employer] Other 12-01-2022 12:00-0400 Body temperature 97.6 [degF] MD Surya Hodges Work Phone: [facility] 12-01-2022 12:00-0400 Diastolic blood pressure 77 mm[Hg] MD Surya Hodges Work Phone: [facility] 12-01-2022 12:00-0400 Heart rate 89 /min MD Surya Hodges Work Phone: [facility] 12-01-2022 12:00-0400 Respiratory rate 20 /min MD Surya Hodges Work Phone: [facility] 12-01-2022 12:00-0400 SaO2% (BldA) [Mass fraction] 99 % MD Surya Hodges Work Phone: [facility] 12-01-2022 12:00-0400 Systolic blood pressure 116 mm[Hg] MD Surya Hodges Work Phone: [facility] 12-01-2022 05:51-0400 Body weight 89.4 kg MD Surya Hodges Work Phone: [facility] 11-30-2022 16:30-0400 Body height 175.26 cm MD Surya Hodges Work Phone: [facility] 11-29-2022 11:15-0400 Body height 175.26 cm Surya Hodges Other [facility] [employer] Other 11-29-2022 11:15-0400 Body mass index (BMI) [Ratio] 28.79 kg/m2 Surya Hodges Other [facility] [employer] Other 11-29-2022 11:15-0400 Body temperature 97.1 [degF] Surya Hodges Other [facility] [employer] Other 11-29-2022 11:15-0400 Body weight 88.45 kg Surya Hodges Other [facility] Other 11-29-2022 11:15-0400 Diastolic blood pressure 88 mm[Hg] Surya Hodges Other [facility] Other 11-29-2022 11:15-0400 SaO2% (BldA) [Mass fraction] 98 % Surya Hodges Other [facility] Other 11-29-2022 11:15-0400 Systolic blood pressure 124 mm[Hg] Surya Hodges Other [facility] Other 11-18-2022 08:30-0400 Body height 175.26 cm Surya Hodges Other [facility] Other 11-18-2022 08:30-0400 Body mass index (BMI) [Ratio] 28.59 kg/m2 Surya Hodges Other [facility] Other 11-18-2022 08:30-0400 Body weight 87.82 kg Surya Hodges Other [facility] Other 11-18-2022 08:30-0400 Diastolic blood pressure 89 mm[Hg] Surya Hodges Other [facility] Other 11-18-2022 08:30-0400 Systolic blood pressure 131 mm[Hg] Surya Hodges Other [facility] Other 11-05-2022 10:00-0400 Body height 175.26 cm Surya Hodges Other [facility] Other 11-05-2022 10:00-0400 Body mass index (BMI) [Ratio] 29.68 kg/m2 Surya Hodges Other [facility] Other 11-05-2022 10:00-0400 Body weight 91.17 kg Surya Hodges Other [facility] Other 11-05-2022 10:00-0400 Diastolic blood pressure 85 mm[Hg] Surya Hodges Other [facility] Other 11-05-2022 10:00-0400 Systolic blood pressure 134 mm[Hg] Surya Hodges Other [facility] Other 10-18-2022 08:30-0400 Body height 175.26 cm Surya Hodges Other [facility] Other 10-18-2022 08:30-0400 Body mass index (BMI) [Ratio] 28.94 kg/m2 Surya Hodges Other [facility] Other 10-18-2022 08:30-0400 Body weight 88.91 kg Surya Hodges Other [facility] Other 10-18-2022 08:30-0400 Diastolic blood pressure 89 mm[Hg] Surya Hodges Other [facility] Other 10-18-2022 08:30-0400 Systolic blood pressure 137 mm[Hg] Surya Hodges Other [facility] Other 09-09-2022 10:15-0400 Body height 175.26 cm Surya Hodges Other [facility] Other 09-09-2022 10:15-0400 Body mass index (BMI) [Ratio] 29.12 kg/m2 Surya Hodges Other [facility] Other 09-09-2022 10:15-0400 Body weight 89.45 kg Surya Hodges Other [facility] Other 09-09-2022 10:15-0400 Diastolic blood pressure 89 mm[Hg] Surya Hodges Other [facility] Other 09-09-2022 10:15-0400 Respiratory rate 12 /min Surya Hodges Other [place] [employer] Other 09-09-2022 10:15-0400 Systolic blood pressure 132 mm[Hg] Surya Tracie Other [facility] Other 05-21-2022 10:01-0500 Blood Pressure Location Kamaljit AYALA [facility] 05-21-2022 10:01-0500 Diastolic blood pressure 80 mm[Hg] Kamaljit AYALA [facility] 05-21-2022 10:01-0500 Heart rate 85 /min Kamaljit AYALA [facility] 05-21-2022 10:01-0500 Systolic blood pressure 119 mm[Hg] Kamaljit AYALA [facility] 01-13-2022 08:36-0400 Blood Pressure Location SANIYA MANDEEP [facility] 01-13-2022 08:36-0400 Diastolic blood pressure 90 mm[Hg] SANIYA MANDEEP [facility] 01-13-2022 08:36-0400 Heart rate 91 /min SANIYA MANDEEP [facility] 01-13-2022 08:36-0400 Respiratory rate 16 /min SANIYA MANDEEP [facility] 01-13-2022 08:36-0400 Systolic blood pressure 134 mm[Hg] SANIYA MANDEEP [facility] 04-08-2021 15:30-0500 Body height 175.26 cm Treasure Quezada Other [facility] Other 04-08-2021 15:30-0500 Body mass index (BMI) [Ratio] 29.97 kg/m2 Treasure Quezada Other [facility] Other 04-08-2021 15:30-0500 Body temperature 96.6 [degF] Treasure Quezada Other [facility] Other 04-08-2021 15:30-0500 Body weight 92.08 kg Treasure Quezada Other [facility] Other 04-08-2021 15:30-0500 Respiratory rate 18 /min Treasure Quezada Other [facility] Other 04-08-2021 15:30-0500 SaO2% (BldA) [Mass fraction] 98 % Treasure Quezada Other [facility] Other Encounters Encounter Date Encounter Type Care Provider Facility Start: 12-28-2024 ambulatory Kamaljit Harrisi ty:[facility] Start: 12-13-2024 ambulatory Kamaljit Harrisi ty:[id number] Start: 12-11-2024 ambulatory Kamaljit Harrisi ty:[id number] Start: 11-21-2024 End: 11-21-2024 ambulatory Nato Hawkins MD Work Phone: Urology Start: 11-20-2024 End: 11-20-2024 Patient encounter procedure Nato Hawkins MD Work Phone: Urology Comment on above: Flank pain (Primary Dx); Ureteral stricture; H/O: hysterectomy Start: 11-20-2024 End: 11-20-2024 ambulatory SURYA HODGES Facility:[facility] Start: 11-20-2024 ambulatory Kamaljit Harrisi ty:[id number] Start: 11-15-2024 End: 11-15-2024 ambulatory Kamaljit AYALA Facility:[id number] Start: 10-29-2024 End: 10-29-2024 Patient encounter procedure Kamaljit Ayala MD -[facility] Work Phone: Start: 10-29-2024 End: 10-29-2024 ambulatory Saniya Davon FLORENTINON Work Phone: [facility] Work Phone: Start: 10-09-2024 End: 10-09-2024 Bamboo flowsheet Brent Asuncion DO Work Phone: [facility] Start: 10-09-2024 End: 10-12-2024 Bamboo flowsheet Brent Asuncion DO Work Phone: [facility] Start: 10-09-2024 End: 10-12-2024 Clinisync Result Encounter Brent Asuncion DO Work Phone: [facility] Department Unsolicited Start: 10-09-2024 End: 10-09-2024 Patient encounter procedure Brent Asuncion DO Work Phone: [facility] Start: 10-09-2024 End: 10-09-2024 Periodic preventive med est patient 18-39 yrs Brent Asuncion DO Work Phone: [facility] Comment on above: Well woman exam with routine gynecological exam; Insulin resistance; Encounter for weight loss counseling Start: 10-09-2024 Non-patient / Non-visit Brent Asuncion -[facility] Work Phone: Start: 10-09-2024 End: 10-09-2024 ambulatory BRENT ASUNCION Not Available Start: 10-02-2024 End: 10-02-2024 ambulatory Kamaljit AYALA Facility:[facility] Start: 10-02-2024 End: 10-02-2024 Patient encounter procedure [facility]YALA [facility] Start: 09-05-2024 End: 09-06-2024 ambulatory Saniya Mays APRN Work Phone: [facility] Work Phone: Start: 09-05-2024 End: 09-05-2024 Patient encounter procedure Saniya Mays APRN [facility] Work Phone: Start: 08-23-2024 Non-patient / Non-visit Kamaljit romero MD -[facility] Work Phone: Start: 08-14-2024 [...] insomnia Start: 08-14-2024 End: 08-14-2024 ambulatory YESICA MCNAIR Not Available Start: 08-02-2024 Non-patient / Non-visit Brent Asuncion -[facility] Work Phone: Start: 08-02-2024 End: 08-02-2024 ambulatory Kamaljit AYALA Facility:[id number] Start: 07-23-2024 End: 07-23-2024 Bamboo flowsheet Brent Asuncion DO Work Phone: [facility] Start: 07-23-2024 End: 07-23-2024 Bamboo flowsheet Brent Asuncion DO Work Phone: [facility] Start: 07-23-2024 End: 07-23-2024 Clinisync Result Encounter Brent Asuncion DO Work Phone: [facility] External Department Unsolicited Start: 07-23-2024 Non-patient / Non-visit Brent Asuncion -[facility] Work Phone: Start: 07-23-2024 End: 07-23-2024 ambulatory BRENT ASUNCION Not Available Start: 07-23-2024 End: 07-23-2024 Office outpatient visit 15 minutes Brent Asuncion DO Work Phone: [facility] Comment on above: Pre-op evaluation; Pelvic pain in female; Pain of ovary; H/O: hysterectomy Start: 07-23-2024 End: 07-23-2024 Preprocedural examination done Brent Asuncion DO Work Phone: [facility] Start: 07-10-2024 End: 07-10-2024 Bamboo flowsheet [...] Department Unsolicited Start: 05-16-2024 End: 05-16-2024 ambulatory [facility] Work Phone: Start: 05-16-2024 End: 05-16-2024 Patient encounter [facility] Work Phone: Start: 03-15-2024 End: 03-15-2024 ambulatory [facility] Work Phone: Start: 03-15-2024 End: 03-15-2024 Patient encounter procedure [facility] Work Phone: Start: 02-15-2024 End: 02-15-2024 Patient encounter procedure [facility] Work Phone: Start: 12-02-2023 End: 12-02-2023 ambulatory [facility] Work Phone: Start: 12-02-2023 End: 12-02-2023 Patient encounter procedure [facility] Work Phone: Start: 10-10-2023 End: 10-10-2023 Patient encounter procedure [facility] Work Phone: Start: 10-05-2023 Patient encounter status [facility] Start: 10-03-2023 End: 10-03-2023 ambulatory [facility] Work Phone: Start: 10-03-2023 End: 10-03-2023 Encounter for general adult medical examination without abnormal findings [facility] Start: 10-03-2023 End: 10-03-2023 [facility] Work Phone: Start: 09-07-2023 End: 09-07-2023 ambulatory [facility] Work Phone: Start: 09-07-2023 End: 09-07-2023 Patient encounter procedure [facility] Work Phone: Start: 07-12-2023 Non-patient / Non-visit [facility] Work Phone: Start: 06-17-2023 End: 06-17-2023 ambulatory [facility] Work Phone: Start: 06-17-2023 End: 06-17-2023 Patient encounter procedure [facility] Work Phone: Start: 05-04-2023 End: 05-04-2023 ambulatory [facility] Work Phone: Start: 05-04-2023 End: 05-04-2023 Patient encounter procedure [facility] Work Phone: Start: 05-02-2023 Non-patient / Non-visit [facility] [employer] Work Phone: Start: 04-21-2023 End: 04-21-2023 Online digital e/m svc est pt <7 d 11-20 minutes Yesica OSWALD Work Phone: [facility] Comment on above: Insulin resistance; Metabolic syndrome; Hormone imbalance Start: 04-04-2023 End: 04-04-2023 ambulatory Surya Hodges Other [employer] Other Start: 04-04-2023 Office outpatient vi sit 15 minutes Surya Hodges [facility] Start: 04-04-2023 End: 04-04-2023 Patient encounter procedure [facility] Start: 03-11-2023 End: 03-11-2023 ambulatory Surya Hodges Other [facility] Other Start: 03-11-2023 Telephone encounter Surya Hodges [facility] Start: 03-11-2023 Patient encounter procedure [facility] Start: 01-12-2023 End: 01-12-2023 ambulatory Surya Hodges Other [facility] Other Start: 01-12-2023 Telephone encounter Surya Hodges [facility] Start: 12-17-2022 End: 12-17-2022 ambulatory Surya Hodges Other [facility] Other Start: 12-17-2022 Office outpatient vi sit 15 minutes Surya Hodges [facility] Start: 11-30-2022 End: 12-01-2022 Evaluation and management of inpatient MD Surya Hodges Work Phone: [facility] [place] [facility] Work Phone: Start: 11-30-2022 End: 12-01-2022 observation encounter MD Surya Hodges Work Phone: [facility] Work Phone: Start: 11-30-2022 End: 11-30-2022 ambulatory Surya Hodges Other [facility] Other Start: 11-30-2022 Telephone encounter Surya Hodges [facility] Start: 11-29-2022 End: 11-29-2022 ambulatory Surya Hodges Other [facility] Other Start: 11-29-2022 Office outpatient vi sit 15 minutes Surya Hodges [facility] Start: 11-29-2022 Telephone encounter Surya Hodges [facility] Start: 11-18-2022 End: 11-18-2022 ambulatory Surya Hodges Other [facility] Other Start: 11-18-2022 Office outpatient vi sit 10 minutes Surya Hodges [facility] Start: 11-05-2022 End: 11-05-2022 ambulatory Surya Hodges Other [facility] Other Start: 11-05-2022 Office outpatient vi sit 10 minutes Surya Hodges [facility] Start: 11-04-2022 End: 11-04-2022 ambulatory Surya Hodges Other [facility] Other Start: 11-04-2022 Telephone encounter Surya Hodges [facility] Start: 10-18-2022 End: 10-18-2022 ambulatory Surya Hodges Other [facility] Other Start: 10-18-2022 Office outpatient vi sit 10 minutes Surya Hodges [facility] Start: 09-17-2022 End: 09-17-2022 ambulatory Surya Hodges Other [facility] Other Start: 09-17-2022 Telephone encounter Surya Hodges [facility] Start: 09-09-2022 End: 09-09-2022 ambulatory Surya Hodges Other [facility] Other Start: 09-09-2022 Office outpatient vi sit 15 minutes Surya Hodges [facility] Start: 06-18-2022 Encounter for other preprocedural examination DR BRENT ROLAND . [facility] Start: 06-16-2022 End: 06-16-2022 ambulatory [...] 05-21-2022 End: 05-21-2022 Patient encounter procedure Kamaljit AYALA [facility] Start: 05-20-2022 End: 05-21-[address] SURYA HODGES Facility:[facility]1 Start: 05-08-2022 End: 05-08-[address] SURYA HODGES Facility:[facility] Start: 03-23-2022 End: 04-16-2022 ambulatory BRINA SHEIKH Facility:[facility] Start: 03-16-2022 End: 03-16-2022 ambulatory Surya Hodges Other [facility] Other Start: 03-16-2022 Office outpatient vi sit 15 minutes Surya Hodges [facility] Start: 02-25-2022 Gynecological examination normal Surya Hodges Other [facility] Other Start: 02-25-[address] SURYA HODGES Facil ity:H1 Start: 02-21-2022 End: 02-21-2022 ambulatory MD Surya Hodges Work Phone: [facility] Work Phone: Start: 02-21-2022 End: 02-21-2022 Patient encounter procedure MD Surya Hodges Work Phone: [facility] Start: 01-13-2022 End: 01-14-[address] BRENT ROLAND . Facility:[facility]1 Start: 01-13-2022 End: 01-13-2022 Patient encounter procedure SANIYA KAUFMAN [facility] Start: 12-21-2021 End: 12-21-[address] BRENT ROLAND . Facility:[facility]1 Start: 04-08-2021 (URG) Urgent Care Visit Treasure pimentel [facility] Start: 04-08-2021 End: 04-08-2021 ambulatory Treasure Quezada Other [facility] Other Start: 05-16-2020 Pre-procedure evalua tion check Surya Hodges Other [facility] Other Procedures Date Procedure Procedure Detail Performing Clinician Start: 10-29-2024 Intravenous pyelogram J leslee Mays APRN Work Phone: Start: 10-09-2024 IGP,APTIMA HPV,AGE GDLN Brent Roland DO Work Phone: Start: 10-02-2024 Cystoscopic removal of ureteric stent Kamaljit AYALA Start: 07-23-2024 ALL CBC WITH AUTO DIFF [...] Phone: Start: 01-19-2022 Injection of urethra Margret sethwilberto LUCY Appendectomy SANIYA KAUFMAN Cholecystectomy SANIYA VANITA PATRICIA Depression screening Surya Hodges Other H/O: hysterectomy H/O: hysterectomy Brent Asuncion DO Work Phone: H/O: hysterectomy H/O: hysterectomy Nato Hawkins MD Work Phone: Hysterectomy SANIYA KAUFMAN Hysterectomy Surya Hodges Other Insertion of intraut erine contraceptive device Surya Hodges Other MRI guided ablation of uterine fibroid SANIYA KAUFMAN End: 06-01-2018 Removal of intrauterine device Surya Hodges Other Plan of Treatment Date Care Activity Detail Author Start: 12-28-2025 Screening for malign ant neoplasm of cervix [facility] Start: 02-05-2025 End: 02-05-2025 Patient encounter procedure 02/05/2025 9:00 AM EST Office Visit Urology [address] [id number] Nato Hawkins MD [address] [place] [address] Cysto Stent Removal Urology Comment on above: Cysto Stent Removal Start: 01-07-2025 End: 01-07-2025 Admission to same day surgery center 01/07/2025 8:25 AM EDT - 01/07/2025 12:48 PM EDT Surgery Admitting [address] [place] [address] Nato Hawkins MD [address] [place] [address] XI ROBOTIC LAPAROSCOPIC REIMPLANT URETER BLADDER W/ PSOAS HITCH OR BLADDER FLAP Admitting Comment on above: XI ROBOTIC LAPAROSCO PIC REIMPLANT URETER BLADDER W/ PSOAS HITCH OR BLADDER FLAP Start: 01-07-2025 Subsequent hospital visit by physician 01/07/2025 8:25 AM EDT Hospital Encounter Admitting [address] [place] [address] Nato Hawkins MD [address] [place] [address] Ureteral stricture [N13.5] Admitting Comment on above: Ureteral stricture [ N13.5] Start: 01-07-2025 End: 01-07-2025 Unlisted laparoscopy procedure ureter XI ROBOTIC LAPAROSCOPIC REIMPLANT URETER BLADDER W/ PSOAS HITCH OR BLADDER FLAP Ureteral stricture 01/07/2025 8:25 AM EDT [facility] Start: 12-31-2024 End: 12-31-2024 Patient encounter procedure 12/31/2024 11:15 AM EDT Appointment Radiology [address] [facility] [place] [address] W/WO IV CON Pre-Op Radiology Comment on above: Urogram CT W/WO IV C ON Pre-Op Start: 12-31-2024 End: 12-31-2024 ambulatory 12/31/2024 10:45 AM EDT Results Only [facility] [address] [place] [address] ct first [facility] Comment on above: ct first Start: 12-31-2024 End: 12-31-2024 Anesthesia consultation 12/31/2024 9:40 AM EDT PAT Pre Anesthesia [address] [place] [address] 1, Pacc [place] [address] [place] [address] Pre-Op, 01/07/2025, Dr. Hawkins Pre Anesthesia Comment on above: Pre-Op, 01/07/2025, Dr. Hawkins Start: 12-24-2024 End: 01-07-2025 BACTERIAL CULTURE, UROLOGY PRESURGICAL SCREENING, URINE BACTERIAL CULTURE, UROLOGY PRESURGICAL SCREENING, URINE Microbiology Routine Ureteral stricture Hydronephrosis with ureteral stricture, not elsewhere classified Expected: 12/24/2024, Expires: 01/07/2025 [facility] Comment on above: Expected: 12/24/2024 , Expires: 01/07/2025 Start: 12-24-2024 End: 01-07-2025 CBC panel - Blood by Automated count COMPLETE BLOOD COUNT Lab Routine Ureteral stricture Hydronephrosis with ureteral stricture, not elsewhere classified Expected: 12/24/2024, Expires: 01/07/2025 [facility] Work Phone: Comment on above: Expected: 12/24/2024 , Expires: 01/07/2025 Start: 12-24-2024 End: 01-07-2025 Comprehensive metabolic 2000 panel - Serum or Plasma COMPREHENSIVE METABOLIC PANEL Lab Routine Ureteral stricture Hydronephrosis with ureteral stricture, not elsewhere classified Expected: 12/24/2024, Expires: 01/07/2025 [facility] Comment on above: Expected: 12/24/2024 , Expires: 01/07/2025 Start: 12-24-2024 End: 01-07-2025 TYPE + SCREEN TYPE + SCREEN Blood Bank Routine Ureteral stricture Hydronephrosis with ureteral stricture, not elsewhere classified Expected: 12/24/2024, Expires: 01/07/2025 [facility] Comment on above: Expected: 12/24/2024 , Expires: 01/07/2025 Start: 12-10-2024 End: 12-10-2024 Patient encounter procedure 12/10/2024 2:00 PM EDT Office [place] [address] Pre-Op [employer] [facility] [facility] Comment on above: Pre-Op Start: 11-12-2024 Influenza vaccination [facility] Start: 11-06-2024 End: 11-06-2024 Patient encounter procedure 11/06/2024 2:40 PM EDT Office Visit [facility] [address] [place] [id number] Brent Roland DO [address] [place], [place] [id number] [facility] Start: 10-09-2024 End: 10-09-2024 Patient encounter procedure [facility] Comment on above: Arrived Start: 08-14-2024 End: 08-14-2024 Patient encounter procedure 08/14/2024 1:20 PM EDT Office Visit [facility] [address] [place] [phone] Yesica Mcnair PA [address] [place], [place] [id number] Arrived [facility] Comment on above: Arrived Start: 07-10-2024 End: 07-10-2024 Patient encounter procedure 07/10/2024 10:00 AM EDT Office Visit [facility] [address] [place] [address] Brent Roland DO [address] [place] [address] Arrived [facility] OB Comment on above: Arrived Start: 12-01-2022 [facility] Start: 11-30-2022 Hospital admission [facility] Start: 11-12-2022 Influenza vaccination Influenza Vacc ine (#1) [facility] Start: 06-10-2019 Screening for malign ant neoplasm of cervix [facility] Start: 2016 HPV Vaccine (1 - 3-d ose SCDM series) HPV Vaccine (1 - 3-dose SCDM series) [facility] Start: 2010 Screening for malign ant neoplasm of cervix [facility] Start: 2008 Hepatitis B Vaccine (1 of 3 - 19+ 3-dose series) Hepatitis B Vaccine (1 of 3 - 19+ 3-dose series) [facility] Start: 2008 Urine microalbumin profile DTaP,Tdap,Td Vaccine (1 - Tdap) [facility] Start: 06-10-2007 Anxiety Screening Anxiety Screening [facility] Start: 06-10-2007 Depression Screening Depression Scre ening [facility] Start: 06-10-2007 Hepatitis C screening Hepatitis C Sc reening [facility] Start: 06-10-2007 HIV screening HIV Screening [facility] CBC W Auto Different ial panel - Blood CBC and differential Lab Routine Metabolic syndrome Hormone imbalance Ordered: 04/21/2023 [facility] Work Phone: Comment on above: Ordered: 04/21/2023 CHLAMYDIA TRACHOMATI S (GENITO/STI) CHLAMYDIA TRACHOMATIS (GENITO/STI) Lab Routine Pelvic pain Ordered: 07/10/2024 [facility] Comment on above: Ordered: 07/10/2024 Comprehensive metabo lic 1999 panel - Serum or Plasma [facility] Comprehensive metabo lic 1999 panel - Serum or Plasma [facility] Comprehensive metabo lic 2000 panel - Serum or Plasma Comprehensive metabolic panel Lab Routine Pre-op evaluation Pelvic pain in female H/O: hysterectomy Or[facility]23/[facility]: Comment on above: Ordered: 07/23/2024 End: 12-21-2025 CT Kidney WO and W contrast IV CT UROGRAM WO/W IVCON Radiology Routine Hydronephrosis with ureteral stricture, not elsewhere classified 1 Occurrences starting 11/21/2024 until 12/21/2025 [facility] Comment on above: 1 Occurrences starti ng 11/21/2024 until 12/21/2025 Cytology Cervical or vaginal smear or scraping study Pap Smear Pathology and Cytology Routine Well woman exam with routine gynecological exam Ordered: 10/09/2024 [employer] Work Phone: Comment on above: Ordered: 10/09/2024 Human papilloma viru s DNA [Presence] in Unspecified specimen by Probe with amplification HPV DNA probe, amplified Microbiology Routine Well woman exam with routine gynecological exam Ordered: 10/09/2024 [facility] [employer] Comment on above: Ordered: 10/09/2024 Neisseria gonorrhoea e DNA [Presence] in Unspecified specimen by LEO with probe detection Neisseria gonorrhea DNA probe, direct Lab Routine Pelvic pain Ordered: 07/10/2024 [facility] [employer] Comment on above: Ordered: 07/10/2024 Patient Education Mediterranean Diet Hyperthyroidism (Overactive Thyroid) (DC) Propranolol Prediabetes (DC) [facility] Work Phone: Patient referral [facility] Work Phone: SURESWAB(R) ADVANCED VAGINITIS PLUS, TMA SURESWAB(R) ADVANCED VAGINITIS PLUS, TMA Pathology and Cytology Routine Pelvic pain Ordered: 07/10/2024 [employer] Work Phone: Comment on above: Ordered: 07/10/2024 XR Knee - left 4 Views [facility] Immunizations Immunization Date Immunization Notes Care Provider Fa miya 04-20-2021 SARS-CoV-2 (COVID-19 ) mRNA BNT-162b2 vax SANIYA KAUFMAN [facility] Comment on above: Result Comment: 2021: TPVALL 08-14-2020 SARS-CoV-2 (COVID-19 ) Ad26 vaccine, recombinant SANIYA KAUFMAN [facility] Comment on above: Result Comment: 2021: TPVALL Payers Date Payer Category Payer Private Health Insurance [id number] 2021 Blue Cross Blue Shield [id number] 2021 Unknown BCBS BCBS [id number] [id number] 2021-Present [phone] [address] [place] [address] [id number] 1989 Unknown [id number] 2.16.840.1.926856.3.579.2 .593 1989 Unknown [id number] 2.16.840.1.318435.3.579.2 .593 1989 Unknown [id number] 2.16.840.1.960727.3.579.2 .593 1989 Unknown [id number] 2.16.840.1.253949.3.579.2 .593 1989 Unknown [id number] 2.16.840.1.007641.3.579.2 .593 1989 Unknown [id number] 2.16.840.1.062931.3.579.2 .593 1989 Unknown [id number] 2.16.840.1.791062.3.579.2 .593 1989 Unknown [id number] 2.16.840.1.130778.3.579.2 .593 1989 Unknown [id number] 2.16.840.1.041510.3.579.2 .593 1989 Unknown [id number] 2.16.840.1.529026.3.579.2 .593 1989 Unknown [id number] 2.16.840.1.598131.3.579.2 .593 1989 Unknown [id number] 2.16.840.1.616277.3.579.2 .593 1989 Unknown [id number] 2.16.840.1.328974.3.579.2 .1259 1989 Unknown [id number] 2.16.840.1.458005.3.579.2 .1259 1989 Unknown [id number] 2.16.840.1.329347.3.579.2 .1259 1989 Unknown [id number] 2.16.840.1.317384.3.579.2 .1259 1989 Unknown [id number] 2.16.840.1.807637.3.579.2 .727 1989 Unknown [id number] 2.16.840.1.523511.3.579.2 .727 1989 Unknown [id number] 2.16.840.1.667575.3.579.2 .727 1989 Unknown [id number] 2.16.840.1.794765.3.579.2 .727 1989 Unknown [id number] 2.16.840.1.944456.3.579.2 .727 1959 Blue Cross Blue Shield [facility] [id number] Self-pay Self Pay [id number] Unknown [place] BC/BS [id number] Social History Date Type Detail Facility Unknown if ever smoked [facility] Other Start: 02-09-2023 End: 11-20-2024 Sex Assigned At [facility] Start: 01-13-2022 End: 09-07-2023 Tobacco smoking status Never smoked tobacco (finding) [facility] Start: 01-21-2014 Tobacco smoking status Never [facility] Start: 1990 Sex Assigned At Female [facility] Start: 02-09-2023 End: 10-09-2024 Alcohol intake Ex-drinker (finding) [facility] Start: 02-09-2023 End: 11-20-2024 History of Social function [facility] Start: 09-24-2022 Alcohol Comment occasional: drinks wine & beer [facility] Start: 09-27-2022 Gender identity Identifies as female gender (finding) [facility] Start: 03-18-2010 End: 03-15-2024 Sex Female (finding) [facility] Sexual Orientation [facility] Tobacco smoking stat [facility] Tobacco smoking consumption unknown [facility] Start: 1990 Sex assigned at Not on file [facility] Goals Date Patient Goal Desired Activity /State Personal health goal Functional Status Date Assessment Result Facility 12-01-2022 Functional status Patient at Baseline [facility] Work Phone: 05-21-2022 Functional Status N/A [facility] 01-13-2022 Functional Status N/A [facility] Mental Status Date Assessment Result Facility 12-01-2022 Cognitive function Cognitive Sta tus Patient at Baseline [facility] Work Phone: Clinical Notes 04-08-2021 to 11-20-2024 Nato Hawkins MD - 11/20/2024 10:00 AM Mc Blair LPN - 10/09/2024 1:00 PM EDT Note Date & Type Note Facility 11-20-2024 Note HNO ID: [id number] Author: NATO HAWKINS MD Service: ? Author Type: Physician Type: Progress Notes Filed: 11/20/2024 12:24 Note Text: [facility] UROLOGY NEW PATIENT CLINIC NOTE SERVICE DATE: 11/20/2024 NAME: Karlene Alfaro REFERRED BY: No referring provider defined for this encounter. HISTORY OF PRESENT ILLNESS Ms. Alfaro is a 34 year old female who presents for evaluation for left ureteral stricture Hysterectomy 2019 for bad cells via pfannenstiel Lost 8 pints of blood after this Got taken back to the OR for bleeding Started having left lower abdominal pain and flank pain TVUS with ovarian cyst No abdominal imaging In July 2024 plan was for left oopherectomy but this was aborted because of finding of left ureteral stricture Stent placed with difficulty - dense distal stricture This was removed and replaced in August Larger stent placed Removed in September IVP showed persistent stricture without hydro Had another stent placed this Hates the stent and didn't change her pain Pain is in left lower back After stent was removed she DID have some improvement for a few days Then it returned 2-3 years ago had kidney stones, doesn't remember what side, thinks right side Here with mom Karlene has two kids, 12yo and 15 yo PSH del, appy, hyst Tubal ligation in 2012 Ablation in 2019 PAST MEDICAL HISTORY No past medical history on file. PAST SURGICAL HISTORY No past surgical history on file. FAMILY HISTORY No family history on file. SOCIAL HISTORY SOCIAL HISTORY[1] MEDICATIONS Current Outpatient Medications Medication Sig cephALEXin (KEFLEX) 500 mg capsule Take 1 capsule by mouth every 12 hours. mirabegron (MYRBETRIQ) 50 mg Tb24 Take 1 tablet by mouth once daily. levothyroxine (SYNTHROID) 137 mcg tablet Take 1 tablet by mouth once daily. ibuprofen (MOTRIN) 800 mg tablet TAKE 1 TABLET BY MOUTH EVERY 8 HOURS NEEDED FOR MILD PAIN No current facility-administered medications for this visit. CURRENT ALLERGIES Allergies As of Date: 11/20/2024 Allergen Noted Reaction CLINDAMYCIN 11/20/2024 Hives DTAP-IPV COMPONENT 1 OF 2 (PF) 11/20/2024 Intolerance Fully Assessed 11/20/2024 OBJECTIVE PHYSICAL EXAM: Mom present for exam 11/20/24 1004 BP: 133/93 There is no height or weight on file to calculate BMI. 11/20/24 1004 BP: 133/93 General: pleasant Psych: euthymic, NAD Neuro: AANDOx3. CV: normal perfusion, hemodynamically stable Resp: normal effort Abdomen: soft, NT, no mass Well healed lap incision sites and pfannenstiel incision DATA Labs No results found for: WBC , HB , HCT , PLT , NA , K , CHLOR , CO2 , BUN , CREAT ASSESSMENT/PLAN 34 F w left flank pain taken to OR for lap oopherectomy aborted due to finding of distal left ureteral stricture Stent placed, removed, replaced x 2 Only abdominal imaging is IVP after stent removed which shows stricture but no hydro Discussed situation I will work on getting her retrograde imaging Would recommend robotic reimplant Rba reviewed at length - bleeding, infection, damage to nearby structures, stricture, reflux, voiding dysfunction, pain Discussed expected post op course Nato Hawkins MD Staff Urologist Genitourinary Reconstruction [facility] [place] Department of Urology I spent a total of 30 minutes on the date of the service which included preparing to see the patient, [id number] patient care, completing clinical documentation, obtaining and/or reviewing separately obtained history, performing a medically appropriate examination, counseling and educating the patient/family/caregiver, and ordering medications, tests, or procedures. >50% of time was devoted to patient counseling. [1] [facility] 11-20-2024 History of Present illness Narrative Images from the original note were not included. [facility] UROLOGY NEW PATIENT CLINIC NOTE SERVICE DATE: 11/20/2024 NAME: Karlene Alfaro REFERRED BY: No referring provider defined for this encounter. HISTORY OF PRESENT ILLNESS Ms. Alfaro is a 34 year old female who presents for evaluation for left ureteral stricture Hysterectomy 2019 for bad cells via pfannenstiel Lost 8 pints of blood after this Got taken back to the OR for bleeding Started having left lower abdominal pain and flank pain TVUS with ovarian cyst No abdominal imaging In July 2024 plan was for left oopherectomy but this was aborted because of finding of left ureteral stricture Stent placed with difficulty - dense distal stricture This was removed and replaced in August Larger stent placed Removed in September IVP showed persistent stricture without hydro Had another stent placed this Hates the stent and didn't change her pain Pain is in left lower back After stent was removed she DID have some improvement for a few days Then it returned 2-3 years ago had kidney stones, doesn't remember what side, thinks right side Here with mom Karlene has two kids, 12yo and 15 yo PSH del, appy, hyst Tubal ligation in 2013 Ablation in 2019 PAST MEDICAL HISTORY No past medical history on file. PAST SURGICAL HISTORY No past surgical history on file. FAMILY HISTORY No family history on file. SOCIAL HISTORY SOCIAL HISTORY[1] MEDICATIONS Current Outpatient Medications Medication Sig cephALEXin (KEFLEX) 500 mg capsule Take 1 capsule by mouth every 12 hours. mirabegron (MYRBETRIQ) 50 mg Tb24 Take 1 tablet by mouth once daily. levothyroxine (SYNTHROID) 137 mcg tablet Take 1 tablet by mouth once daily. ibuprofen (MOTRIN) 800 mg tablet TAKE 1 TABLET BY MOUTH EVERY 8 HOURS NEEDED FOR MILD PAIN No current facility-administered medications for this visit. CURRENT ALLERGIES Allergies As of Date: 11/20/2024 Allergen Noted Reaction CLINDAMYCIN 11/20/2024 Hives DTAP-IPV COMPONENT 1 OF 2 (PF) 11/20/2024 Intolerance Fully Assessed 11/20/2024 OBJECTIVE PHYSICAL EXAM: Mom present for exam 11/20/24 1004 BP: 133/93 There is no height or weight on file to calculate BMI. 11/20/24 1004 BP: 133/93 General: pleasant Psych: euthymic, NAD Neuro: A&Ox3. CV: normal perfusion, hemodynamically stable Resp: normal effort Abdomen: soft, NT, no mass Well healed lap incision sites and pfannenstiel incision DATA Labs No results found for: WBC , HB , HCT , PLT , NA , K , CHLOR , CO2 , BUN , CREAT ASSESSMENT/PLAN 34 F w left flank pain taken to OR for lap oopherectomy aborted due to finding of distal left ureteral stricture Stent placed, removed, replaced x 2 Only abdominal imaging is IVP after stent removed which shows stricture but no hydro Discussed situation I will work on getting her retrograde imaging Would recommend robotic reimplant Rba reviewed at length - bleeding, infection, damage to nearby structures, stricture, reflux, voiding dysfunction, pain Discussed expected post op course Nato Hawkins MD Staff Urologist Genitourinary Reconstruction [facility] Department of Urology I spent a total of 30 minutes on the date of the service which included preparing to see the patient, spnh-xs-rxlb patient care, completing clinical documentation, obtaining and/or reviewing separately obtained history, performing a medically appropriate examination, counseling and educating the patient/family/caregiver, and ordering medications, tests, or procedures. >50% of time was devoted to patient counseling. [1] documented in this encounter [facility] 10-09-2024 History of Present illness Narrative adip Reason for Appointment: Patient ID: Tootie Alfaro [...] 0.4 mg, Daily ALLERGIES Allergies Allergen Reactions Qyfiuhe-Wsouxo-Ixqri Pertussis Swelling Tetanus-Diphtheria Toxoids Td Other Azithromycin [...] retrograde, left ureteroscopy, left stent per dr ayala PAP SMEAR 12/01/2020 negative, HPV negative SALPINGECTOMY [...] nursing note reviewed. Exam conducted with a selenium plant operator present. Vitals: Estimated body mass index [...] them. Patient can also view results via [employer]iver[employer]. I reinforced importance of condom use for [...] Brent Roland DO documented in this encounter [facility] 10-02-2024 Hospital Discharge instructions Patient Education 10/02/2024 15:41:56 Dietary Guidelines [...] include: ?8 oz (237 mL) of milk, bbwymsj-ackyfydwtwix-xiguk milk, and calcium-fortifiedfruit juice. Calcium-fortified means that [...] ?Spinach (cooked), rhubarb, beets, sweet potatoes, and Maldivian chard. ?Peanuts. ?Potato chips, arabic fries, and baked potatoes with skin on. ?Nuts and nut products. ?Chocolate. If you regularly take a diuretic medicine, make sure to eat at least 1 or 2 servings of fruits or vegetables that are high in potassium each day. These include: ?Avocado. ?Banana. ?Salem, prune, carrot, or tomato juice. ?Baked potato. [...] magnesium, fish oil, or vitamin B6. Take vloh-zxp-xhcsfca and prescription medicines only as told by [...] Casseroles. Pizza. Lasagna. Frozen meals. Potato chips. Malay fries. The items listed above may not [...] provider. Document Revised: 06/10/2022 Document Reviewed: 06/10/2022 [employer] Patient Education 2023 [employer]. Follow Up Care 09/11/2024 09:57:49 With:LUCY STILES, SAVITA Sotomayor Address: [facility] [address], [place] [address]- When: Unknown [facility] [place] 10-02-2024 Note Patient Education Nephrology Dietary Guidelines [...] ? 8 oz (237 mL) of milk, yimoknj-ibfwhwclzxiu-oujzm milk, and calcium-fortifiedfruit juice. Calcium-fortified means that [...] Spinach (cooked), rhubarb, beets, sweet potatoes, and Maldivian chard. ? Peanuts. ? Potato chips, arabic fries, and baked potatoes with skin on. ? Nuts and nut products. ? Chocolate. ??? If you regularly take a diuretic medicine, make sure to eat at least 1 or 2 servings of fruits or vegetables that are high in potassium each day. These include: ? Avocado. ? Banana. ? Salem, prune, carrot, or tomato juice. ? Baked [...] fish oil, or vitamin B6. ??? Take ofuk-yeu-ygqdzcg and prescription medicines only as told by your health (more content not included)... [facility] 09-05-2024 Evaluation note Diagnosis Onset Date Resolution Poison abena dermatitis acute Prakash e 2024 1:43pm [facility] Work Phone: 1(986) 942-866706-03-2025 History of Present illness Narrative* MARGRET Canales [...] chew, or split. ALLERGIES Allergies Allergen Reactions Ywlaxdn-Dhqaxe-Zhqwo Pertussis Swelling Tetanus-Diphtheria Toxoids Td Other Azithromycin [...] Date APPENDECTOMY 2007 CHOLECYSTECTOMY 2012 CYST REMOVAL 2008 ENDOMETRIAL ABLATION 06/30/2018 HYSTERECTOMY 12/28/2019 LAPAROSCOPY DIAGNOSTIC / BIOPSY / ASPIRATION / LYSIS 06/16/2022 Diagnostic Lap LAPAROSCOPY DIAGNOSTIC / BIOPSY / ASPIRATION / LYSIS N/A 08/02/2024 dx lap, lysis of omental adhesions, Cystoureteroscopy, rt ureteroscopy, left retrograde, left ureteroscopy, left stent per dr ayala PAP SMEAR 12/01/2020 negative, HPV negative SALPINGECTOMY [...] Lt retrograde, Lt ureteroscopy, Ltstent per Dr. Ayala. Patient scheduled to have stent removed on 09/06/24. Pain is tolerable but having some trouble with sleep, we will send ambien to help Documented by Laney Chow LPN on behalf of: MARGRET Canales documented in this encounterChristian [id number] History of Present illness Narrative* Brenda Tomlinson [...] exam under anesthesia ([facility] with Dr. Ayala) on 08/02/[address] Roland at [facility]. MEDICATIONS Current Outpatient Medications Medication [...] chew, or split. ALLERGIES Allergies Allergen Reactions Dqpmmch-Zzavwo-Txqsb Pertussis Swelling Tetanus-Diphtheria Toxoids Td Other Azithromycin [...] nursing note reviewed. Exam conducted with a selenium plant operator present. Vitals: Estimated body mass index [...] exam under anesthesia ([facility] with Dr. Ayala) on 08/02/2024. Surgical consents were signed, mmc was reviewed, and patient is to proceed to [facility] OR. Follow Up: Patient is to follow up between 1-2 weeks post operative to assess proper healing and recovery fromprocedure. Documented by Laney Chow LPN on behalf of: Brent Roland DO documented in this encounterChristian [id number] History of Present illness Narrative* Leatha Blair [...] Oral, Daily ALLERGIES Allergies Allergen Reactions Adacel [Goitoaf-Lmccgh-Ledsh Pertussis] Swelling Clindamycin Rash PROBLEMS Active Ambulatory [...] nursing note reviewed. Exam conducted with a selenium plant operator present. Vitals: Estimated body mass index [...] of: Brent Roland DO documented in this encounterChristian [id number] Evaluation note* Diagnosis Onset Date Resolution Status Admit Date Obesity (BMI 30.0-34.9) acute J anuary 2024 11:26am Hypothyroidism acute May 16, 2024 10:00am Screening for lipid disorders acute May 16, 2024 10:00am Screening for metabolic disorder acu te May 16, 2024 10:00am Screening, deficiency anemia , iron acute May 16, 2024 10:00am Vitamin D deficiency acute Gabino 2024 10:00am [facility] Work Phone: 1(716) 252-717812-04-2024 Evaluation note* Diagnosis Onset Date Resolution Status Admit Date Bronchitis acute February 15, 2024 1:00pm Maxillary sinusitis acute Decem 2023 1:00pm Obesity (BMI 30.0-34.9) acute D ec2023 1:00pm [facility] Work Phone: 1(181) 807-875002-08-2024 History of Present illness Narrative* MARGRET Canales - 04/21/2023 8:50 AM EST Reason for Appointment: Patient ID: Tootie Alfaro is a 32 y.o. female who presents for telehealth follow up Patient presents today via telephone call for a telehealth appointment. Patients Phone #: [phone] (mobile) Current Medications: has a current medication [...] LIGATION Bilateral 2012 Allergies Allergen Reactions Adacel [Okdltpf-Zhjqfu-Ptbbt Pertussis] Swelling Clindamycin Rash Vitals: Estimated body [...] check for kidney function to [facility]. Pt aware and agrees to have blood work obtained. She will follow up in office in 3 months Documented by MARGRET Canales on behalf of: MARGRET Canales * Hedy Carter MA - 04/21/2023 8:50 AM EST Cbc order was sent to [facility] for pt to have done. documented in this encounterChristian [id number] Evaluation note* Encounter Date Diagnosis Assessment Notes Treatment Notes Treatment Clinical Notes Mar, Bronchitis (ICD-10 - J40) Discussed diagnosis with patient. Finish entire course of antibiotic. Proair inhaler sent today for patient to use PRN cough/wheezing/short ness of breath. Tessalon Pearles ordered to take as needed for cough. Increase fluids and rest. Lise-jgb-mtkqudy antipyretics as needed. Warning signs and symptoms reviewed with patient today. Patient to go immediately to the ER should she experience any of these. Patient to notify office should her symptoms persist and not improve. Patient verbalizes understanding and agrees to treatment plan. Mar, Vaginal yeast infection (ICD-10 - B37.31) Pt requests diflucan to cover probable yeast infection w antibiotic. [facility] [employer] Other 12-29-2023 Evaluation note* Encounter Date Diagnosis Assessment Notes Treatment Notes Treatment Clinical Notes Feb, Sore throat (ICD-10 - J02.9) [facility] Other 10-06-2023 Evaluation note* Encounter Date Diagnosis Assessment Notes Treatment Notes Treatment Clinical Notes Dec, Hypothyroidism (ICD-10 - E03.9) Recheck in next 4-6 weeks. Continue healthy diet and exercise. [facility] Other 09-20-2023 Discharge summary Author Baljinder Polanco [facility] December 01, 2022 5:19pm Note Date/Time December 01, 2022 1:02pm [facility] [address] [place] [address] Discharge Summary Signed Patient: Karlene Alfaro MR#: [id number] : 1990 Acct:[id number] Age/Sex: 32 / F Adm Date: 3 Loc: Room: [address] [place] [address]: Baljinder Polanco MD Copies to: [...] Clear, Urine pH >= 9.0, Ur Specific [place]den 1.013, Urine Protein Negative, Urine Glucose (UA) [...] % (Auto) 59.2, Lymph % (Auto) 32.3, Tyler % (Auto) 6.8, Eos % (Auto) 0.9, Baso % (Auto) 0.8, Nucleat RBC Rel Count 0.2, Neut # (Auto) 4.9, Lymph # (Auto) 2.7, Tyler # (Auto) 0.6, Eos # (Auto) 0.1, Baso # (Auto) 0.1, Monocyte Dist Width19.22 11/30/22 13:00: PHA Creatinine Clear 114.08, Sodium 138, Potassium 4.1, Jdgsgtdu754, Carbon Dioxide 23.9, Anion Gap 14.2, BUN 9, Creatinine 0.83, Est GFR (CKD-EPI) > 60.0, Glucose 77, Calcium 9.5, Magnesium 1.9, Total Bilirubin 0.9, DirectBilirubin 0.00 L, Indirect Bilirubin 0.9, AST 11 L, ALT 16, Alkaline Zgtkwatmvmz68, Total Protein 7.6, Albumin 4.4, Globulin 3.2, [...] <Electronically signed by Baljinder Polanco MD> 12/01/22 7694 [facility] Work Phone: 1(585) 234-433109-19-2023 History and physical note Author Baljinder Polanco [facility] November 30, 2022 4:34pm Note Date/Time November 30, 2022 4:34pm [facility] [address] [place] [address] Hospitalist H&P Signed Patient: Karlene Alfaro MR#: [id number] : 1990 Acct:[id number] Age/Sex: 32 / F Adm Date: 3 Loc: Room: [address] [place] [address] Type: ADM IN Attending Dr: Baljinder Polanco [...] rub or JVD. Peripheral pulses present bilaterally. Psbjj-fb-cfbr ultrasound is unremarkable. Lungs are clear to [...] contributes to her symptoms. DVT prophylaxis [facility]arel[facility] Medical History (Updated 11/30/22 @ 15:13 [...] % (Auto) 32.3 % (.) 11/30/22 13:00 Tyler % (Auto) 6.8 % (.) 11/30/22 13:00 Eos % (Auto) 0.9 % (.) 11/30/22 13:00 Baso % (Auto) 0.8 % (.) 11/30/22 13:00 Nucleat RBC Rel Count 0.2 /100 WBC (0-0.5) 11/30/22 13:00 Neut # (Auto) 4.9 x10E3/uL (1.8-7.7) 11/30/22 13:00 Lymph # (Auto) 2.7 x10E3/uL (1.00-4.8) 11/30/22 13:00 Tyler # (Auto) 0.6 x10E3/uL (0.0-0.8) 11/30/22 13:00 [...] >= 9.0 (5.0-9.0) 11/30/22 16:04 Ur Specific [place] 1.013 (1.001-1.030) 11/30/22 16:04 Urine Protein Negative [...] Baljinder Polanco MD> 11/30/22 1634 [facility] Work Phone: 1(365) 606-253109-18-2023 Evaluation note* Encounter Date Diagnosis Assessment Notes [...] - E03.9) Pt's thyroid managed by her weed cutter - will check levels - labs were normal in May [facility] Other 09-07-2023 Evaluation note* Encounter Date Diagnosis [...] index [BMI] 28.0-28.9, adult (ICD-10 - Z68.28) [facility] Other 08-25-2023 Evaluation note* Encounter Date Diagnosis Assessment Notes Treatment Notes Treatment Clinical Notes Oct, Allergic contact dermatitis, unspecified cause (ICD-10 - L23.9) Take medications as directed. Complete all doses. Wash all belongings that came in contact with plant oils. May continue to use Calamine lotion. Patient verbalized understanding and agreement with treatment plan. [facility] Other 08-07-2023 Evaluation note* Encounter Date Diagnosis [...] to ER and Follow-up with me immediately. [facility] Other 07-07-2023 Evaluation note* Encounter Date Diagnosis Assessment Notes Treatment Notes Treatment Clinical Notes Sep, Overweight (ICD-10 - E66.3) Sep, Body mass index [BMI] 29.0-29.9, adult (ICD-10 - Z68.29) [facility] Other 06-29-2023 Evaluation note* Encounter Date Diagnosis Assessment Notes Treatment Notes Treatment Clinical Notes Aug, Acute contact dermatitis (ICD-10 - L25.9) Take medications as directed. Complete all doses. Wash all belongings that came in contact with plant oils. May continue to use Calamine lotion. Patient verbalized understanding and agreement with treatment plan. [facility] Other 04-05-2023 NoteOPERATIVE NOTE OPERATION DATE: 06/16/2022 PROCEDURE: Diagnostic laparoscopy. PREOPERATIVE DIAGNOSIS: Pelvic pain, left ovarian cyst. POSTOPERATIVE DIAGNOSIS: Pelvic pain, left ovarian cyst. ANESTHESIA: General. SURGEON: Brent Roland D.O. DRAPERY HAND: MIRNA Harden URINE OUTPUT: Yellow and clear. [...] was made. The fascia was tented using Benradette clamps and the fascia was entered sharply. [...] taken to Recovery Room in stable condition.[id number] Discharge instructions Patient Education 05/21/2022 10:45:43 Kidney Stones, Etxt-wc-Gajq Kidney Stones Kidney stones are rock-like masses [...] Follow these instructions at home: Medicines Take gvzx-dtg-wfgmcik and prescription medicines only as told by [...] 08/16/2008 Document Revised: 07/17/2019 Document Reviewed: 07/17/2019 [employer] Patient Education 2019 [employer]. Follow Up Care 05/11/2022 13:32:37 With:LUCY STILES, LILLIANA SotomayorL Address: [address] [place] [address] [place] [address]- When: Unknown [facility] [employer] 01-03-2023 Evaluation note* Encounter Date Diagnosis Assessment Notes Treatment Notes Treatment Clinical Notes Mar, Pharyngitis, unspecified etiology (ICD-10 - J02.9) New medications as directed. Increase fluids, rest, good hand washing. OTC for fever/discomfort. Tooth brush in the environmental property assessor or get a new one after on antibiotics for 24 hours. F/U if no improvement in the next 72 hours Mar, Vaginal yeast infection (ICD-10 - B37.31) Will treat empirically for yeast, discharge and sx reported consistent with that of vaginal candidiasis. Instructed patient to take as directed, advised that she should feel improvement in about 2 days. [facility] Other 11-02-2022 Hospital Discharge instructions Patient Education [...] 02/14/2013 Document Revised: 10/18/2018 Document Reviewed: 10/18/2018 [employer] Patient Education [employer] Follow Up Care 01/11/2022 14:36:11 With:[facility] Address: [facility] [place] [address] Business (1) When: Unknown Comments:for procedure as scheduled [facility] [place] 01-26-2022 Evaluation note* Encounter Date Diagnosis Assessment [...] Patient care instructions given in writting by [facility][NOTE 3] Care At Home document. [place] [employer] Other Evaluation + Plan note No data available for this section [facility] evaluation + Plan note Future Appointments Appointment Date:09/03/2022 08:00:00 AM Scheduled Provider:Kamaljit AYALA MD Location:[facility] Appointment Type:URO Office Visit [facility] evaluation + Plan note Future Appointments Appointment Date:12/28/2024 08:00:00 AM Scheduled Provider:Kamaljit AYALA MD Location:[facility] Appointment Type:URO Office Visit [facility] [place] Evaluation noteNo assessment information available [facility] Work Phone: evaluation noteNo [facility] [employer] Other evaluation note* Diagnosis Onset Date Resolution Status Chest pain acute Tachycardia acute [facility] Work Phone: evaluation note* Diagnosis Insulin resistance Other abnormal glucose Metabolic syndrome Dysmetabolic Syndrome X Hormone imbalance documented in this encounter [facility]* Diagnosis Onset Date Resolution Status Allergic reaction due to antibacterial drug acute Streptococcus pharyngitis ac [place] [facility] Work Phone: Evaluation note* Diagnosis Onset Date Resolution Status Anxiety acute Thyroid disease acute Migraines acute Screening for lipid disorders acute Screening for metabolic disorder acute Screening, deficiency anemia, iron acute [facility] Work Phone: Evaluation note* Diagnosis Onset Date Resolution Status Migraines acute Screening for lipid disorders acute Screening for metabolic disorder acute Screening, deficiency anemia, iron acute Left knee pain acute [facility] Work Phone: Evaluation note* Diagnosis Onset Date Resolution Status Migraines acute Screening for lipid disorders acute Screening for metabolic disorder acute Screening, deficiency anemia, iron acute Left knee pain acute Wellness examination acute Poison abena dermatitis acute [facility] Work Phone: Evaluation note* Diagnosis Pelvic pain documented in this encounter [facility] HealthcareEvaluation note* Diagnosis Pre-op evaluation Pelvic pain in female Unspecified symptom associated with female genital organs Pain of ovary H/O: hysterectomy Acquired absence of both cervix and uterus documented in this encounter [facility] HealthcareEvaluation note* Diagnosis Acute postoperative pain Other acute postoperative pain Postoperative follow-up Follow-up examination, following unspecified surgery Other insomnia documented in this encounter [facility] HealthcareEvaluation note* Diagnosis Onset Date Resolution Status Admit Date Poison abena dermatitis acute Aug 1:43pm [facility] Work Phone: Evaluation note* Diagnosis Well woman exam with routine gynecological exam Routine gynecological examination Insulin resistance Other abnormal glucose Encounter for weight loss counseling documented in this encounter [facility] [employer] GroupEvaluation note* Diagnosis Flank pain- Primary Abdominal pain, unspecified site Ureteral stricture Stricture or kinking of ureter H/O: hysterectomy Acquired absence of both cervix and uterus [facility] Ureteral stricture- Primary Stricture or kinking of ureter Hydronephrosis with ureteral stricture, not elsewhere classified Ureteral stricture Stricture or kinking of ureter documented in this encounter [facility] general Narrative - Reported* Type Description Date Medical History hypothyroidism Surgical History gallbladder removal Surgical History appendecs Surgical History ovarian cysts taken out in 2007 Surgical History hysterectomy Hospitalization History surgeries Hospitalization History child [facility] Other History general Narrative - Reported* Type Description Date Medical History hypothyroidism Surgical History gallbladder removal Surgical History appendecs Surgical History ovarian cysts taken out in 2007 Surgical History hysterectomy Hospitalization History surgeries Hospitalization History child Hospitalization History [facility] [place] pain 11/2022 [facility] Other Hospital Discharge instructions Additional Instructions You have slightly elevated cholesterol level and prediabetes. Try to eat a healthier diet. Mediterranean diet is the best studied to improve health outcomes. I attached some instructions. Establish care with a primary care physician who will manage all your health issues.[facility] Work Phone: Progress note No data available for this section [facility] reason for referral (narrative)No reason for referral information [facility] Work Phone: Advance Directives No Advanced [...] Post-op Visit Reason Comments Well Women Visit Reason Comments Consult Patient Care team informatio n (unrecognized section and content) Team Status: Active Member Role Status Dates Surya Hodges MD Primary Care Provider Active Team Status: Inactive Member Role Status Dates Surya Hodges MD Primary Care Provider Active Start: September 07, 2023 End: September 07, 2023 Saniya Mays APRN SWITCHBOARD OPERATOR HELPER-C Attending Provider Act ellie Start: September 07, 2023 End: September 07, 2023 Team Status: Inactive Member Role Status Dates Surya Hodges MD Primary Care Provide r, Attending Provider Active Start: October 03, 2023 End: October 03, 2023 Team Status: Inactive Member Role Status Dates Surya Hodges MD Primary Care Provider Active Start: October 10, 2023 End: October 10, 2023 Saniya Mays APRN SWITCHBOARD OPERATOR HELPERJusC Attending Provider Act ellie Start: October 10, [...] Polanco MD Admit Provider, Attending Provider Active Transit Specialist Relationship Specialty Start Date End Date Surya Hodges MD [address] [place] [address] PCP - General Family Medicine 09/27/22 Team Status: Active Member Role Status Dates Saniya Mays APRN SWITCHBOARD OPERATOR HELPER-C Primary Care Provider Active Team Status: Inactive Member Role Status Dates Saniya Mays APRN SWITCHBOARD OPERATOR HELPER-C Primary Care Provider, Attending Provider Active Start: February 15, 2024 End: February 15, 2024 Team Status: Inactive Member Role Status Dates Saniya Mays APRN SWITCHBOARD OPERATOR HELPER-C Primary Care Provider, Attending Provider Active Start: March 15, 2024 End: March 15, 2024 Team Status: Inactive Member Role Status Dates Saniya Mays APRN SWITCHBOARD OPERATOR HELPER-C Primary Care Provider, Attending Provider Active Start: May 16, 2024 End: May 16, 2024 Transit Specialist Relationship Specialty Start Date End Date Surya Hodges MD PCP - General Family Medicine 09/27/22 Transit Specialist Relationship Specialty Start Date End Date Surya Hodges MD [address] [place] [facility] [id number] PCP - General Family Medicine 09/27/22 Transit Specialist Relationship Specialty Start Date End Date Surya Hodges MD [address] [facility] [phone] PCP - General Family Medicine 09/27/22 Transit Specialist Relationship Specialty Start Date End Date Surya Hodges MD [address] [place] [facility] [phone] PCP - General Family Medicine 09/27/22 Transit Specialist Relationship Specialty Start Date End Date Surya Hodges MD [address] [place] [facility] [address] PCP - General Family Medicine 09/27/22 Transit Specialist Relationship Specialty Start Date End Date Surya Hodges MD [address] [place] [facility] [address] PCP - General Family Medicine 09/27/22 Transit Specialist Relationship Specialty Start Date End Date Surya Hodges MD [address] [place] [facility] [address] PCP - General Family Medicine 09/27/22 Team Status: Active Member Role Status Dates Saniya Mays APRN SWITCHBOARD OPERATOR HELPER-C Primary Care Provider Active Start: July 23, 2024 Brent Roland DO Attending Provider Active Start : July 23, 2024 Team Status: Active Member Role Status Dates Saniya Mays APRN SWITCHBOARD OPERATOR HELPER-C Primary Care Provider Active Start: August 02, 2024 Brent Roland DO Attending Provider Active Start : August 02, 2024 Team Status: Active Member Role Status Dates Saniya Mays APRN SWITCHBOARD OPERATOR HELPER-C Primary Care Provider Active Start: August 23, 2024 Kamaljit Ayala MD Attending Provider Active St art: August 23, 2024 Team Status: Inactive Member Role Status Dates Saniya Mays APRN SWITCHBOARD OPERATOR HELPER-C Primary Care Provider Active Start: September 05, 2024 End: September 05, 2024 TAYLOR Harry Attending Provider Act ellie Start: September 05, 2024 End: September 05, 2024 Transit Specialist Relationship Specialty Start Date End Date Surya Hodges MD [address] [place] [facility] [place] [id number] PCP - General Family Medicine 09/27/22 Transit Specialist Relationship Specialty Start Date End Date Surya Hodges MD [address] [place] [facility] [place] [address] PCP - General Family Medicine 09/27/22 Team Status: Active Member Role Status Dates Saniya Mays APRN SWITCHBOARD OPERATOR HELPER-C Primary Care Provider Active Start: October 09, 2024 Brent Roland DO Attending Provider Active Start : October 09, 2024 Team Status: Inactive Member Role Status Dates Saniya Mays APRN SWITCHBOARD OPERATOR HELPER-C Primary Care Provider Active Start: October 29, 2024 End: October 29, 2024 Kamaljit Ayala MD Attending Provider Active St art: October 29, 2024 End: October 29, 2024 Transit Specialist Relationship Specialty Start Date End Date Surya Hodges MD [address] [facility] [place] [address] PCP - General Family Medicine 01/21/14 Kamaljit Ayala MD [address] [place] [facility] [place] [address] Referring Urology 11/06/24 Transit Specialist Relationship Specialty Start Date End Date Surya Hodges MD [address] [facility] [place] [address] PCP - General Family Medicine 01/21/14 Kamaljit Ayala MD [address] [facility] [place] [address] Referring Urology 11/06/24 Goals (unrecognized section and content) Goals may be documented in a n alternate section INFORMATION SOURCE (unrecogn ized section and content) DATE CREATED AUTHOR 07/01/2022 [facility] DATE CREATED AUTHOR AUTHOR'S ORGANIZ ATION 10/11/2024 [facility] EPIC DATE CREATED AUTHOR AUTHOR'S ORGANIZ ATION 10/31/2024 [facility] DATE CREATED AUTHOR AUTHOR'S ORGANIZ ATION 12/01/2024 [facility] DATE CREATED AUTHOR AUTHOR'S ORGANIZ ATION 12/06/2024 [facility] l Source Comments (unrecognize d section and content) In the event this informatio n is protected by the Federal Confidentiality of Alcohol and Drug Abuse Patient Records regulations: The Federal rules restrict any use of the information to criminally investigate or prosecute any alcohol or drug abuse patient.[facility] the event this information is protected by the Federal Confidentiality of Alcohol and Drug Abuse Patient Records regulations: The Federal rules restrict any use of the information to criminally investigate or prosecute any alcohol or drug abuse patient.[facility] FOR RECORDS PERTAINING TO PATIENTS WHO ARE [...] BE BASED ON THE PRIMARY CLINICAL RECORDS. [facility]. provides no warranty or guarantee of the accuracy or completeness of information in this document.
== END 2024-12-07 13:35 | disposition home or self-care (01) ==
LOC: PST 13:34
PROVIDERS: PCP Nurse Practitioner Family; Visit Provider Urology
DX: Z01.818 Encounter for other preprocedural examination (principal); Z96.0 Presence of urogenital implants

== ENCOUNTER 2024-12-13 10:45 | Day surgery (SDC) | payer BC, SELFPAY ==
--- OUTSIDE RECORDS SUMMARY | 2013-01-18 10:25 | XMS_ITS | Continuity of Care Document ---
Author Organization [facility] Address [address] [place] [address] Phone Care Team Providers Care Electrical And Instrument Engineer Name Role Phone Joaoi DO, Sanya Unavailable [...] Diagnoses Date Provider Providers Copied on Encounter [facility], [address] [place] [address], [place], [place], [id number] , [place] tel:[phone] [facility] No Information 3 Visci DO Sanya. [address] [place], [place], [id number] , [place]. tel: [phone] OFFICE/OUTPA TIENT VISIT, EST [facility], [address] [place], [place], [id number] , [place] tel: [phone] [facility] lab results (chief complaint) Genital herpes, unspecified 3 Abdulaziz Prince. [address] [place], [address], [place]. tel: [phone] PREV VISIT, NEW, AGE 18-39 [facility], [address] [place], [place], [id number] , [place] tel: [phone] [facility] annual visit (chief complaint) Gynecological ExaminationCandidiasi s of vulva and vaginaVaginitisHerpes simplex with other specified complications 3 Abdulaziz Prince. [address] [place], [address], [place]. tel: [phone] Family History Family Member Type Diagnosis Age At Onset Maternal grandmother Problem (finding) breast cancer Mother Problem (finding) hypertension Paternal grandfather Problem (finding) Leukemia Father Problem (finding) Alive and well Payers Payer name Insurance type Covered libertarian ID Authoriza tion(s) No Information Social History [...]
--- OUTSIDE RECORDS SUMMARY | 2024-12-13 | XMS_ITS ---
Author Name Auto Generated Organization OHIP Care Team Providers Care Press Operator Meat Name Role Phone LION HORNE Attending Unavailable COLEEN, LION Attending Unavailable MARCELL BECKER Attending Unavailable COLEEN, LION Attending Unavailable ROMERO, Kamaljit Rivas Attending Unavailable ROMERO, Kamaljit Rivas Attending Unavailable ROMERO, Kamaljit Rivas Attending Unavailable ROMERO, Kamaljit R Attending Unavailable ROMERO, Kamaljit Rivas Attending Unavailable ROMERO, Kamaljit R Referring Unavailable ROMERO, Kamaljit Rivas Attending Unavailable ROMERO, Kamaljit R Attending Unavailable NATO HAWKINS Admitting Unavailable MONSERRAT, NATO Attending Unavailable HEATHER, SANIYA Seay Primary Care Unavailab SURYA Mcguire Primary Care Unavailable HODGES, SURYA Dejesus Primary Care Unavailable NATO HAWKINS Attending Unavailable Saniya Mays Primary Care Unavailable Romero, Kamaljit Attending Unavailable Romero, Kamaljit Admitting Unavailable PROBLEMS DATE TYPE CONDITION / CODE ATTENDING STATUS [facility] 11/21/2024 Active Ureteral strictu re / N13.5(ICD-10) NATO HAWKINS Active [facility] 11/20/2024 Active Flank pain / R10.9(ICD-10) NATO HAWKINS Active [facility] 11/20/2024 Active H/O: hysterectom y / Z90.710(ICD-10) NATO HAWKINS Active [facility] PROCEDURES No Procedure Records Found RESULTS CNPN Observed: 12/13/2024 12:00 AM Status: COMPLETED Source: [facility] Telephone (UROLMN) KARLENE VAZQUEZ ([id number]) 1990 F Date Time Provider Department 12/13/24 MARY ANN GONZALES During your visit today, we recorded the following information about you: Mary Ann Gonzales RN 12/13/2024 2:10 PM Signed Left voicemail with Karlene Vazquez to confirm surgery date of 01/[address] 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 - levothyroxine (SYNTHROID) 137 mcg tablet Take 1 tablet by mouth once daily. - mirabegron (MYRBETRIQ) 50 mg Tb24 Take 1 tablet by mouth once daily. - ibuprofen (MOTRIN) 800 mg tablet TAKE 1 TABLET BY MOUTH EVERY 8 HOURS NEEDED FOR MILD PAIN Problem List As Of Date: 12/13/2024 (None) Encounter Status:Closed by MARY ANN GONZALES on 12/13/24 ARYA Observed: 12/05/2024 12:00 AM Status: COMPLETED Source: [facility] Telephone (FVUROL) KARLENE VAZQUEZ ([id number]) 1990 F Date Time Provider Department 12/05/24 EDGAR CARIAS During your visit today, we recorded the following information about you: Edgar Carias RN 12/05/2024 1:18 PM Signed [facility] paperwork completed, emailed to patient per request, and sent to be scanned into [employer]. Allergies As of Date: 12/05/2024 Noted Allergy Reaction CLINDAMYCIN 11/20/2024 4 - Hives Comments: Rash DTAP-IPV COMPONENT 1 OF 2 (PF) 11/20/2024 5 - Intolerance Comments: Hives; Rash; Welt Date Reviewed: 11/20/2024 Reviewed by: Mendy Bartholomew MA - Fully Assessed Reason for Visit: [facility] Paperwork [418] Prescriptions as of 12/05/2024 - cephALEXin (KEFLEX) [...] Encounter Status:Closed by EDGAR CARIAS on 12/05/24 PROGRESS Observed: 11/20/2024 10:00 AM Status: COMPLETED [id number] Author: NATO HAWKINS MD Service: ? Author Type: Physician Type: Progress Notes Filed: 11/20/2024 12:24 Note Text: [facility] UROLOGY NEW PATIENT CLINIC NOTE SERVICE DATE: 11/20/2024 NAME: Karlene Vazquez REFERRED BY: No referring provider defined for this encounter. HISTORY OF PRESENT ILLNESS Ms. Vazquez is a 34 year old female who presents for evaluation for left ureteral stricture Hysterectomy 2020 for bad cells via pfannenstiel Lost 8 [...] Nato Hawkins MD Staff Urologist Genitourinary Re[facility] [place] [facility] I spent a total of 30 minutes on the date of the service which included preparing to see the patient, csfl-sz-lzid patient care, completing clinical documentation, obtaining and/or reviewing separately obtained history, performing a medically appropriate examination, counseling and educating the patient/family/caregiver, and ordering medications, tests, or procedures. >50% of time was devoted to patient counseling. [1] CNOV Observed: 11/20/2024 10:00 AM Status: COMPLETED Source: [facility] Office Visit (FVUROL) KARLENE VAZQUEZ ([id number]) 1990 F Date Time Provider Department 11/20/24 10:00 AM NATO HAWKINS During your visit today, we recorded the following information about you: Blood pressure Last Period 133/93 06/12/18 Nato Hawkins MD 11/20/2024 12:24 PM Signed [facility] UROLOGY NEW PATIENT CLINIC NOTE SERVICE DATE: 11/20/2024 NAME: Karlene Vazquez REFERRED BY: No referring provider defined for this encounter. HISTORY OF PRESENT ILLNESS Ms. Vazquez is a 34 year old female who [...] MD Staff Urologist Genitourinary Reconstruction [facility] Urological [place] Department of Urology I spent a total of 30 minutes on the date of the service which included preparing to see the patient, ybng-xc-fjah patient care, completing clinical documentation, obtaining and/or [...] Problem List As Of Date: 11/20/2024 (None) Encounter Status:Closed by NATO HAWKINS on 11/20/24 XR IVP Observed: 10/29/2024 10:11 AM Status: COMPLETED Source: [facility] [address] [address] XRay Report Signed Patient: Karlene Vazquez MR#: [id number] : 1990 Acct:[id number] Age/Sex: 34 / F ADM Date: 10/29/24 Loc: XD Room: Type: [facility] Attending Dr: Kamaljit Romero MD Copies to: Kamaljit Romero MD Ordering Provider: Kamaljit Romero MD Date of Service: 10/29/24 XR/XR IVP: LT FLANK PAIN, URETERAL STICTURE XR IVP 10/29/2024 8:56 AM SIGNS AND SYMPTOMS: LT FLANK PAIN, URETERAL STICTURE HOLDING RM FOR LABS PROTOCOL: [employer] radiographs of the abdomen and pelvis were [...] of previous ureteral stricture. Impression dictated by: Narciso Ramos M.D. 10/29/2024 10:15 AM Dictation Location: [place] [address] Transcribed By: [facility] 10/29/24 1015 Dictated By: Narciso Ramos II, MD 10/29/24 1011 Signed By: <Electronically signed by Narciso Ramos II, MD in OV> 10/29/24 1015 CREATININE Collected: 10/29/2024 7:50 AM Status: F Source: [facility] Order Comment: STAT FOR IVP TYPE CODE TESTS RESULT OUT OF RANGE REFERENCE UNITS LAB CREATT Creatinine 0.77 Normal 0.60-1.20 mg/dL LAB GFReNR Estimated GFR >60.0 Result Comment: PERFORMED BY : [address] [address] PATHOLOGIST CALL CENTER RN ZITA BATISTA M.D. Performed By: #### CREAT ### # [facility] [address] [place] [address] [facility] PATIENT EDUCATION Observed: 10/02/2024 3:41 PM Status: C Source: [facility] Patient Education Nephrology Dietary Guidelines to Help [...] ? 8 oz (237 mL) of milk, acynqpr-zswuxzovyrje-nipjo milk, and calcium- fortifiedfruit juice. Calcium-fortified means that calcium has been [...] Spinach (cooked), rhubarb, beets, sweet potatoes, and Thai chard. ? Peanuts. ? Potato chips, thai fries, and baked potatoes with skin on. ? Nuts and nut products. ? Chocolate. ??? If you regularly take a diuretic medicine, make sure to eat at least 1 or 2 servings of fruits or vegetables that are high in potassium each day. These include: ? Avocado. ? Banana. ? Dundy, prune, carrot, or tomato juice. ? Baked [...] fish oil, or vitamin B6. ??? Take dnyb-nrm-izufaih and prescription medicines only as told by [...] Casseroles. Pizza. Lasagna. Frozen meals. Potato chips. Uzbek fries. The items listed above may not [...] Contact a dietitian for more information. Summary ??? Kidney stones are deposits of minerals and salts that form inside your kidneys. ??? You can lower your risk of kidney stones by making changes to your diet. ??? The most important thing you can do is drink enough fluid. Drink enough fluid to keep your urine pale yellow. ??? Talk to your dietitian about how much calcium you should have each day, and eat less salt and animal protein as told by your dietitian. This information is not intended to replace advice given to you by your health care provider. Make sure you discuss any questions you have with your health care provider. Document Revised: 06/10/2022 Document Reviewed: 06/10/2022 [employer] Patient Education ? 2023 pickrset. AMBULATORY VISIT SUMMARY Observed: 10/02 3:18 PM Status: F Source: [facility] Ambulatory Visit Summary KARLENE VAZQUEZ :1990 Visit [...] Following Appointments Follow Up with LUCY STILES, SAVITA Sotomayor When: Where: [facility] [address], [place] [address]- Medications What How Much When Instructions Unchanged [...] ? 8 oz (237 mL) of milk, dbkrtmj-mpeyqbexfmth-bzppg milk, and calcium- fortifiedfruit juice. Calcium-fortified means that calcium has been [...] Spinach (cooked), rhubarb, beets, sweet potatoes, and Thai chard. ? Peanuts. ? Potato chips, thai fries, and baked potatoes with skin on. ? Nuts and nut products. ? Chocolate. ??? If you regularly take a diuretic medicine, make sure to eat at least 1 or 2 servings of fruits or vegetables that are high in potassium each day. These include: ? Avocado. ? Banana. ? Dundy, prune, carrot, or tomato juice. ? Baked potato. ? Cabbage. ? Beans and split peas. Lifestyle ??? Drink enough fluid to keep your urine pale yellow. This is the most important thing you can do. Spread your fluid intake throughout the day. ??? If you drink alcohol: ? Limit how much you have to: ? 0???1 drink a day for women who are not . ? 0???2 drinks a day for men. ? Know how much alcohol is in your drink. In the [place] one drink equals one 12 oz bottle of beer (355 mL), one 5 oz glass of wine (148 mL), or one 1??? oz glass of hard liquor (44 mL). [...] fish oil, or vitamin B6. ??? Take vvow-owr-xmmdavp and prescription medicines only as told by [...] Casseroles. Pizza. Lasagna. Frozen meals. Potato chips. Uzbek fries. The items listed above may not [...] Contact a dietitian for more information. Summary ??? Kidney stones are deposits of minerals and salts that form inside your kidneys. ??? You can lower your risk of kidney stones by making changes to your diet. ??? The most important thing you can do is drink enough fluid. Drink enough fluid to keep your urine pale yellow. ??? Talk to your dietitian about how much calcium you should have each day, and eat less salt and animal protein as told by your dietitian. This information is not intended to replace advice given to you by your health care provider. Make sure you discuss any questions you have with your health care provider. Document Revised: 06/10/2022 Document Reviewed: 06/10/2022 [employer] Patient Education ??? 2023 [employer] Patient Portal You may access all of your results and other medical record information on our secure patient portal. If you are not signed up for this yet, please contact [employer] at [phone] to get signed up today. Language Information Language assistance services are available as needed. UROLOGY OFFICE/CLINIC NOTE Observed: 3:18 PM Status: F Source: [facility] Urology Office/Clinic Note Chief Complaint Cysto, removal [...] ureteral stricture found. 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 (pelvic laparoscopy for significant L sided [...] [facility] [address], [place] [address]- Additional Instructions: 3 mos with IVP Patient [...] Use:., 10/02/2024 Family History Family history is negative Immunizations Vaccine Date Status Comments SARS-CoV-2 (COVID-19) mRNA BNT-162b2 vax 04/20/2021 Recorded 2022-01-11: TPVALL SARS-CoV-2 (COVID-19) Ad26 vaccine 08/14/2020 Recorded 2022-01-11: TPVALL Result Comment: Electronical ly Signed By: Kamaljit ROMERO MD\.br\Date and Time Signed: 10/02/24 15:55 EDT\.br\Electronically Co-Signed By: Debbie Guadalupe\.br\Date and Time Co-Signed: 10/02/24 15:45 EDT PROVIDER LETTER Observed: 09/13/2024 4:02 PM Status: F Source: [facility] Provider Letter September 13, 2024 KARLENE VAZQUEZ [address] [address] : 1990 To Whom It May Concern, Please excuse above patient from work. Date of Illness: From: 09/06/24 To: 09/17/24 May Return to Work On:09/18/24 Restrictions: Patient may return to work 09/18/24 with no heavy lifting and light duty. Comments: N/A Sincerely, [facility] PROVIDER LETTER Observed: 09/13/2024 3:59 PM Status: UNK Source: [facility] Provider Letter September 13, 2024 KARLENE VAZQUEZ [address] [address] : 1990 To Whom It May Concern, Please excuse above patient from work. Date of Illness: From: 09/06/24 To: 10/02/24 May Return to Work On: 10/03/24 Restrictions: None Comments: Continuation of FMLA from 09/06/24- 10/02/24. Patient may return to work without restrictions on 10/03/24. Sincerely, [facility]/ Dr. Kamaljit Romero [address] [place] [address] Other Comment: correction/ p t change mind ALLERGIES DATE TYPE / CODE NAME / CODE REACTION SEVERITY SOURCE 11/20/2024 DRUG INGREDI/516574 003(SNOMED CT) CLINDAMYCIN HIVES [facility] 11/20/2024 DRUG/241571315 (SNOMED CT) DTAP-IPV COMPONENT 1 OF 2 (PF) INTOLERANCE [facility] /184022900(S NOMED CT) clindamycin Unknown [facility] /[id number](S NOMED CT) azithromycin [id number] [facility] /[id number](S NOMED CT) tetanus/diphth/pertus s (Tdap) adult/adol Unknown [facility] ENCOUNTERS ADMIT/DISCHARGE ACCOUNT NUMBER ADMITTING ENCOUNTER CLASS LOCATION SOURCE 12/13/2024 [id number] Ambulatory CD:[id number] 7Building:CD :[id number] [facility] 12/11/2024 [id number] Ambulatory CD:[id number] 7Building:CD :[id number] [facility] 12/10/2024 [id number] [facility] 11/21/2024 [id number] NATO HAWKINS [facility] 11/20/2024/11/21/19 [id number] Ambulatory [facility] ding:FVUROL [facility] 11/20/2024 [id number] Ambulatory CD:[id number] 7Building:CD :[id number] [facility] 11/15/2024/11/16/19 25 [id number] Ambulatory CD:[id number] 7Building:CD :[id number] [facility] 10/29/2024/10/30/19 25 [id number] Kamaljit Romero [facility] 10/09/2024/10/10/19 [id number] Ambulatory Building:NOM S [facility] Medical [facility] 10/02/2024/10/03/19 25 [id number] [facility]ulatory [facility] [place] 1 [facility] 09/06/2024/09/07/19 25 [id number] Ambulatory CD:[id number] 7Building:CD :[id number] [facility] 08/14/2024/08/15/19 25 [id number] Ambulatory Building:N[facility] S [facility] OB [facility] 08/02/2024/08/03/19 [id number] Ambulatory CD:[id number] 7Building:CD :[id number] [facility] 07/23/2024/07/24/19 [id number] Ambulatory Building:NOM S [facility] 07/10/2024/07/11/19 25 [id number] Ambulatory Building:NOM S BCP OB [facility] EPIC 01/13/2022 [id number] Ambulatory EU Jeremy [facility] PAYERS ENCOUNTER GUARANTOR PAYER SUBSCRIBER SOURCE 12/10/2024 Primary Insurance:BLUE ACCESS PPOPolicy Number: [id number] ellie Date:8185-11-17Nvu n Name:Anne MEDINA: [id number] [id number] [place] [address] 11/21/2024 Primary Insurance:BLUE ACCESS PPOPolicy Number: [id number] ellie Date:5569-00-97Wlq n Name:Anne KAYLA MEDINA: [id number] [address] 11/20/2024 Primary Insurance:BLUE ACCESS PPOPolicy Number: [id number] ellie Date:2762-44-67Caf n Name:Anne MEDINA: [id number] [address] 11/15/2024 KARLENE MEDINA: [facility] 81Tel: ~~(41 (HP) Primary Insurance:AnthemPo montse Number: [id number] ellie Date:[id number] [address]EH: KAYLA HERNANDEZ [facility] 10/09/2024 KARLENE MEDINA: [place] [id number]: (HP) Primary Insurance:BCBSPoli cy Number: [id number] ellie Date:2021-03-14 KAYLA SHEIKHB: [id number] [address] [facility] EPIC 10/02/2024 KARLENE SHEIKHB: [facility] 81Tel: ~~(41 (HP) Primary Insurance:AnthemPo licy Number: [id number] ellie Date:9142-17-19[address], [place] [address]BR: [facility] 09/06/2024 KARLENE VAZQUEZDOB: [facility] 81Tel: ~(419 (HP) Primary Insurance:AnthemPo licy Number: [id number] ellie Date:1939-64-06[address], [place] [address]DY: KARLENE Cai [facility] 08/14/2024 KARLENE VAZQUEZDOB: [address]: (HP) Primary Insurance:BCBSPoli cy Number: [id number] ellei Date:2021-03-14 KAYLA MEDINA: [id number] [address] 08/02/2024 KARLENE VAZQUEZDOB: [facility] 81Tel: ~(419 (HP) Primary Insurance:AnthemPo licy Number: [id number] ellie Date:6959-58-92[address], [place] [address]LL: [facility] 07/23/2024 KARLENE SHEIKHB: [address]: (HP) Primary Insurance:BCBSPoli cy Number: [id number] ellie Date:2021-03-14 KAYLA MEDINA: [id number] [id number] [place] [address] [facility] 07/10/2024 KARLENE MEDINA: [id number] [address] [address]Enl: () Primary Insurance[facility] Number: [id number] ellie Date:2021-03-14 KAYLA MEDINA: [id number] [address] [place] [address] [facility] EPIC
--- OUTSIDE RECORDS SUMMARY | 2024-12-13 10:47 | XMS_ITS | Encounter Summary ---
Author Organization [facility] Address [address] [facility] [place] [address] Care Team Providers Care Nanotechnology Technician Name Role Phone Aminta Piper MD Primary Care Provider [phone] Encounter Details Date Type Department Care Team (Late st Contact Info) Description 10/18/2024 Abstract [facility] [address] [place] [address] [place] [id number] Kenyatta Salazar MA Social History Tobacco Use [...] on filedocumented in this encounter Care Teams Nanotechnology Technician Relationship Specialty Start Date End Date Aminta Piper MD [address] [facility] [place] [address] PCP - General Family Medicine 09/27/22 documented as of this encounter
--- OUTSIDE RECORDS SUMMARY | 2024-12-13 10:47 | XMS_ITS | Encounter Summary ---
Author Organization [facility] Address [address] [facility] [place] [address] Care Team Providers Care Mail Inserter Name Role Phone Aminta Piper MD Primary Care Provider [phone] Encounter Details Date Type Department Care Team (Late st Contact Info) Description 09/24/2022 Abstract [facility] [place] [facility] [address] [place] [address] Yesica Mcnair PA [address] [facility] [address] [place], [place] [address] Social History Tobacco Use Types Packs/Day Years [...] on filedocumented in this encounter Care Teams Mail Inserter Relationship Specialty Start Date End Date Aminta Piper MD [address] [place] [id number] PCP - General Family Medicine 09/27/22 documented as of this encounter
--- OUTSIDE RECORDS SUMMARY | 2024-12-13 10:47 | XMS_ITS | Encounter Summary ---
Author Organization [facility] Address [address] [facility] [place] [address] Care Team Providers Care Podiatric Medicine Doctor Name Role Phone Aminta Piper MD Primary Care Provider [phone] Encounter Details Date Type Department Care Team (Late st Contact Info) Description 10/26/2024 Abstract [facility] [address] [place] [phone] Brent Roland DO [address] [facility] [address] Wiliam Lombardo, [facility] Social History Tobacco Use Types Packs/Day Years [...] on filedocumented in this encounter Care Teams Podiatric Medicine Doctor Relationship Specialty Start Date End Date Aminta Piper MD [address] [place] [address] PCP - General Family Medicine 09/27/22 documented as of this encounter
--- OUTSIDE RECORDS SUMMARY | 2024-12-13 10:47 | XMS_ITS | Clinical Summary ---
Author Organization [facility] Address [address] [place] [address] Care Team Providers Care Spring Setter Name Role Phone Aminta Piper MD Primary Care Provider [phone] Allergies Active Allergy Reactions Criticality Noted Date Comments Azithromycin Rash Low 07/12/2024 Clindamycin Rash Low 09/23/2022 Rofrxnn-Sxcgow-Hspks Pertussis Swelling 09/23 Tetanus-Diphtheria Toxoids Td Other [...] Description 11/21/2024 Telephone [facility] [address] [place] [address] Laney Chow LPN 10/29/2024 Telephone [facility] [address] [facility] [place] [address] Hedy Carter MA 10/26/2024 Abstract [facility] [address] [place] [address] Brent Roland DO 10/24/2024 Refill [facility] [address] [place] [address] Brent Roland DO Insulin resistance; Encounter for weight loss counseling 10/23/2024 Refill [facility] [address] [place] [address] Brent Roland DO Insulin resistance; Encounter for weight loss counseling 10/23/2024 Refill [facility] [address] [facility] [place] [address] Brent Roland DO Insulin resistance; Encounter for weight loss counseling 10/18/2024 Abstract [facility] [address] [facility] [place] [address] Kenyatta Salazar MA 10/16/2024 Orders Only [facility] [place] [facility] [address] [facility] [place] [address] Ashley Nicole LPN 10/09/2024 1:00 PM EDT Office Visit [facility] [address] [place] [address] Brent Roland DO Well woman exam with routine gynecological exam; Insulin resistance; Encounter for weight loss counseling 10/09/2024 Clinisync Result Encounter [facility] External Department Unsolicited Brent Roland, 10/09/2024 Bamboo flowsheet [facility] [address] [facility] [place] [address] Brent Roland DO 09/30/2024 Refill [facility] [place] [facility] [address] [facility] [place] [address] Brent Roland DO Yeast [...] EDT) AGE GDLN ACOG TESTING Note . [facility] Comment: TESTS RESULT FLAG UNITS REF RANGE LAB Clinician Provided Cytology Information Source.............Vagina No. of containers..01 ThinPrep Vial Age Algo ACOG Olga... 30-65 01 FLAG LEGEND: L-Low Normal,H-High Normal,LL-Alert Low,HH-Alert High <-Panic Low,>-Panic High,A-Abnormal,AA-Critical Abnormal Performed at: 01 =[facility] [address] [place] [address] Ernestina Carballo MD, IGP, APTIMA HPV, RFX 16/18,45 Note . [facility] Comment: TESTS RESULT FLAG UNITS REF RANGE LAB DIAGNOSIS: 02 NEGATIVE FOR INTRAEPITHELIAL LESION OR MALIGNANCY. Specimen adequacy: 02 Satisfactory for evaluation. No endocervical component is identified. Performed by: Tierra Taylor, Specimen Collector ([facility]) . 02 Note: Note 02 The Pap [...] <-Panic Low,>-Panic High,A-Abnormal,AA-Critical Abnormal Performed at: [address] [address] Ernestina Carballo MD, HPV APTIMA Negative Negative [facility] Comment: This nucleic acid amplification test detects fourteen high- risk HPV types (16,18,31,33,35,39,45,51,52,56,58,59,66,68) without differentiation. Performed at: =[facility] [id number] Press Pipe Inspector: Ernestina Carballo MD, Phone: [phone] Performed at: [facility] [address] [id number] Press Pipe Inspector: Ernestina Carballo MD, Phone: [phone] 10/09/2024 12:5 8 PM EDT 10/09/2024 7:59 PM EDT Narrative [facility] - 10/12/2024 8:08 PM EDT SPATULA-ALONE VAGINA Brent Asuncion DO LAB BLOOD ORDERABLES Final Resul t [facility] * Pap Smear (10/09/2024 12:00 AM EDT) Swab Cervical swab / Unknown Brent Asuncion DO LAB CYTOLOGY ORDERABLES Final Re sult EXTERNAL LAB from Last 3 Months Insurance [facility] Care Teams Spring Setter Relationship Specialty Start Date End Date Aminta Piper MD [address] [place] [address] PCP - General Family Medicine 09/27/22
--- OUTSIDE RECORDS SUMMARY | 2024-12-13 10:47 | XMS_ITS | Encounter Summary ---
Author Organization [facility] Address [facility] [place] [address] Care Team Providers Care Field Investigator Name Role Phone Aminta Piper MD Primary Care Provider [phone] Kamaljit Romero MD Unavailable [phone] Source Comments In the event this information is protected by the Federal Confidentiality of Alcohol and Drug AbusePatient Records regulations: The Federal rules restrict any use of the information to criminally investigate or prosecute any alcohol or drug abuse patient.[facility] Encounter Details Date Type Department Care Team (Latest Contact Info) Description 12/04/2024 Travel Social History Tobacco Use Types Packs/Day Years Used Date Smoking Tobacco: Never Assessed Area Deprivation Index Answer Date Jorge Luis rded National Score (1-100), lower number is lower ri sk 64 11/20/2024 State Score (1-10), lower number is lower risk 4 11/20/2024 Data from: https://www.neighborhoodatlas.medicine.[facility].edu/. Last address used for calculation [address] [place] [address] 11/20/2024 Comments No Sex and Gender Information Value Date Recorded Sex Assigned at Not on file Legal Sex Female 11:30 AM EST Gender Identity Not on file Sexual Orientation Not on file documented as of this encounter Plan of Treatment Upcoming Encounters Date Type Department Care Team (Latest Contact Info) Description 12/31/2024 9:40 AM EDT PAT Pre Anesthesia [address] [place] [address] 2, Pacc Barry [address] [facility] [place] [address] Pre-Op, 01/07/2025, Dr. Sandra 12/31/2024 10:45 AM EDT Results Only Barry [facility] [address] [place] [address] ct first 12/31/2024 11:15 AM EDT Appointment Radiology [address] [place] [address] W/WO IV CON Pre-Op 01/07/2025 10:31 AM EDT Hospital Encounter Admitting [address] [place] [address] Brit Sandra MD [address] [place] [address] Ureteral stricture [N13.5] 01/07/2025 10:31 AM EDT - 01/07/2025 2:54 PM EDT Surgery Admitting [address] [place] [address] Brit Sandra MD [address] [place] [phone] XI ROBOTIC LAPAROSCOPIC REIMPLANT URETER BLADDER W/ PSOAS HITCH OR BLADDER FLAP 02/05/2025 9:00 AM EST Office Visit Urology [address] [place] [address] Brit Sandra MD [address] [place] [phone] Cysto Stent Removal Scheduled Procedures Name Priority Associated Diagnoses Date/Ti me XI ROBOTIC LAPAROSCOPIC REIMPLANT URETER BLADDER W/ PSOAS HITCH OR BLADDER FLAP Ureteral stricture 01/07/2025 10:31 AM EDT documented as of this encounter Goals Goal Patient Goal Type Associated Problems Recent Progress Patient-Stated? Author Autogenera jocelynn Goal Care Plan Autogenerated Problem No Walker Adri Guy S documented as of this encounter Visit Diagnoses Not on filedocumented in this encounter Additional Health Concerns Active Problems Noted Date Diagnosed Date Autogenerated Problem 11/21/2024 documented as of this encounter Care Teams Field Investigator Relationship Specialty Start Date End Date Aminta Piper MD [address] [place] [address] PCP - General Family Medicine 01/21/14 12/09/24 Kamaljit Romero MD [address] [place] [address] Referring Urology 11/06/24 documented as of this encounter
--- OUTSIDE RECORDS SUMMARY | 2024-12-13 10:47 | XMS_ITS | Encounter Summary ---
Author Organization [facility] Address [facility] [place] [address] Care Team Providers Care Software Applications Developer Name Role Phone Aminta Piper MD Primary Care Provider [phone] Kamaljit Romero MD Unavailable [phone] Source Comments In the event this information is protected by the Federal Confidentiality of Alcohol and Drug AbusePatient Records regulations: The Federal rules restrict any use of the information to criminally investigate or prosecute any alcohol or drug abuse patient.[facility] Reason for Visit * Reason Comments [place] Paperwork Encounter Details Date Type Department Care Team (Late st Contact Info) Description 12/05/2024 Telephone Urology [address] [place] [address] Jessica Pinto RN [facility] Paperwork Social History Tobacco Use Types Packs/Day Years Used Date Smoking Tobacco: Never Assessed Area Deprivation Index Answer Date Jorge Luis rded National Score (1-100), lower number is lower ri sk 64 11/20/2024 State Score (1-10), lower number is lower risk 4 11/20/2024 Data from: https://www.neighborhoodatlas.medicine.[facility].edu/. Last address used for calculation [address] 11/20/2024 Comments No Sex and Gender Information Value Date Recorded Sex Assigned at Not on file Legal Sex Female 11:30 AM EST Gender Identity Not on file Sexual Orientation Not on file documented as of this encounter Miscellaneous Notes * Telephone Encounter - Jessica Pinto RN - 12/05/2024 1:17 PM EDT [facility] paperwork completed, emailed to patient per request, and sent to be scanned into [employer]. documented in this encounter Plan of Treatment Upcoming Encounters Date Type Department Care Team (Latest Contact Info) Description 12/31/2024 9:40 AM EDT PAT Pre Anesthesia [address] [place] [address] 2, Pacc Juab [address] [place] [address] Pre-Op, 01/07/2025, Dr. Sandra 12/31/2024 10:45 AM EDT Results Only [facility] [address] [place] [address] ct first 12/31/2024 11:15 AM EDT Appointment Radiology [address] [place] [address] W/WO IV CON Pre-Op 01/07/2025 10:31 AM EDT Hospital Encounter Admitting [address] [place] [address] Brit Sandra MD [address] [place] [address] Ureteral stricture [N13.5] 01/07/2025 10:31 AM EDT - 01/07/2025 2:54 PM EDT Surgery Admitting [address] [place] [address] Brit Sandra MD [address] [place] [address] XI ROBOTIC LAPAROSCOPIC REIMPLANT URETER BLADDER W/ PSOAS HITCH OR BLADDER FLAP 02/05/2025 9:00 AM EST Office Visit Urology [address] [place] [address] Brit Sandra MD [address] [place] [address] Cysto Stent Removal Scheduled Procedures Name Priority [...] documented as of this encounter Care Teams Software Applications Developer Relationship Specialty Start Date End Date Aminta Piper MD [address] [place] [address] PCP - General Family Medicine 01/21/14 12/09/24 Kamaljit Romero MD [address] [place] [address] Referring Urology 11/06/24 documented as of this encounter
--- OUTSIDE RECORDS SUMMARY | 2024-12-13 10:47 | XMS_ITS | Encounter Summary ---
Author Organization [facility] Address [address] [place] [address] Care Team Providers Care Bakery Helper Name Role Phone Aminta Piper MD Primary Care Provider [phone] Reason for Visit * Reason Comments Med Refill Encounter Details Date Type Department Care Team (Late st Contact Info) Description 02/23/2023 Refill [facility] [address] [facility] [place] [address] Brent Roland DO [address] [facility] [address] Wiliam Lombardo, [facility] Vaginal yeast infection Social History Tobacco Use [...] vagina documented in this encounter Care Teams Bakery Helper Relationship Specialty [place] [address] [place] [phone] PCP - General Family Medicine 09/27/22 documented as of this encounter
--- OUTSIDE RECORDS SUMMARY | 2024-12-13 10:47 | XMS_ITS | Encounter Summary ---
Author Organization [facility] Address [facility] [place] [address] Care Team Providers Care Mannequin Maker Name Role Phone Amitna Piper MD Primary Care Provider [phone] Kamaljit Romero MD Unavailable [phone] Saniya Mays NP Primary Care Provider Brent Roland DO Unavailable [phone] Source Comments In the event this information is protected by the Federal Confidentiality of Alcohol and Drug AbusePatient Records regulations: The Federal rules restrict any use of the information to criminally investigate or prosecute any alcohol or drug abuse patient.[facility] Encounter Details Date Type Department Care Team (Late st Contact Info) Description 11/21/2024 Get Medical Advice Urology [address] [place] [address] Brit Sandra MD [address] [place] [address] Medication Social History Tobacco Use Types Packs/Day Years Used Date Smoking Tobacco: Never Assessed Area Deprivation Index Answer Date Jorge Luis rded National Score (1-100), lower number is lower ri sk 64 11/20/2024 State Score (1-10), lower number is lower risk 4 11/20/2024 Data from: https://www.neighborhoodatlas.medicine.[facility]/. Last address used for calculation [address] 11/20/2024 Comments No Sex and Gender Information Value Date Recorded Sex Assigned at Not on file Legal Sex Female 11:30 AM EST Gender Identity Not on file Sexual Orientation Not on file documented as of this encounter Plan of Treatment Upcoming Encounters Date Type Department Care Team (Latest Contact Info) Description 12/31/2024 9:40 AM EDT PAT Pre Anesthesia [address] [place] [id number] 2, Pacc Lyman [address] [place] [id number] Pre-Op, 01/07/2025, Dr. Sandra 12/31/2024 10:45 AM EDT Results Only [facility] [address] [place] [address] ct first 12/31/2024 11:15 AM EDT Appointment Radiology [address] [place] [address] W/WO IV CON Pre-Op 01/07/2025 10:31 AM EDT Hospital Encounter Admitting [address] [place] [address] Brit Sandra MD [address] [place] [phone] Ureteral stricture [N13.5] 01/07/2025 10:31 AM EDT - 01/07/2025 2:54 PM EDT Surgery Admitting [address] [place] [address] Brit Sandra MD [address] [place] [address] XI ROBOTIC LAPAROSCOPIC REIMPLANT URETER BLADDER W/ PSOAS HITCH OR BLADDER FLAP 02/05/2025 9:00 AM EST Office Visit Urology [address] [place] [address] Brit Sandra MD [address] [place] [address] Cysto Stent Removal Scheduled Procedures Name Priority [...] documented as of this encounter Care Teams Mannequin Maker Relationship Specialty Start Date End Date Aminta Piper MD [address] [place] [address] PCP - General Family Medicine 01/21/14 12/09/24 Saniya Mays NP [address] [place] [address] PCP - General Family Medicine 12/10/24 Kamaljit Romero MD [address] [place] [address] Referring Urology 11/06/24 Brent Roland DO [address] [place] [address] [place] [address] Motor Vehicle Field Representative 12/10/24 documented as of this encounter
--- OUTSIDE RECORDS SUMMARY | 2024-12-13 10:47 | XMS_ITS | Encounter Summary ---
Author Organization [facility] Address [address] [facility] [place] [address] Care Team Providers Care Branch Library Clerk Name Role Phone Aminta Piper MD Primary Care Provider [phone] Encounter Details Date Type Department Care Team (Late st Contact Info) Description 03/03/2023 Abstract [facility] [address] [place] [phone] Tabby Evans LPN [address] [place] [id number] Social History Tobacco Use Types Packs/Day Years [...] on filedocumented in this encounter Care Teams Branch Library Clerk Relationship Specialty Start Date End Date Aminta Piper MD [address] [place] [address] PCP - General Family Medicine 09/27/22 documented as of this encounter
--- OUTSIDE RECORDS SUMMARY | 2024-12-13 10:47 | XMS_ITS | Encounter Summary ---
Author Organization [facility] Address [address] [facility] [place] [address] Care Team Providers Care Service Unit Operator Oil Well Name Role Phone Aminta Piper MD Primary Care Provider [phone] Encounter Details Date Type Department Care Team (Late st Contact Info) Description 07/27/2024 Abstract [facility] [address] [place] [address] [place] [address] Kenyatta Salazar MA Social History Tobacco Use [...] on filedocumented in this encounter Care Teams Service Unit Operator Oil Well Relationship Specialty Start Date End Date Aminta Piper MD [address] [facility] [place] [address] PCP - General Family Medicine 09/27/22 documented as of this encounter
--- OUTSIDE RECORDS SUMMARY | 2024-12-13 10:47 | XMS_ITS | Encounter Summary ---
Author Organization [facility] Address [address] [place] [address] Care Team Providers Care Stucco Laborer Name Role Phone Aminta Piper MD Primary Care Provider [phone] Kamaljit Romero MD Unavailable [phone] Saniya Mays NP Primary Care Provider Brent Roland DO Unavailable [phone] Source Comments In the event this information is protected by the Federal Confidentiality of Alcohol and Drug AbusePatient Records regulations: The Federal rules restrict any use of the information to criminally investigate or prosecute any alcohol or drug abuse patient.[facility] Encounter Details Date Type Department Care Team (Late st Contact Info) Description 11/21/2024 Patient Msg [facility] [address] [place] [address] Provider, [facility] Scheduling Information Social History Tobacco Use Types Packs/Day Years Used Date Smoking Tobacco: Never Assessed Area Deprivation Index Answer Date Jorge Luis rded National Score (1-100), lower number is lower ri sk 64 11/20/2024 State Score (1-10), lower number is lower risk 4 11/20/2024 Data from: https://www.neighborhoodatlas.[facility].edu/. Last address used for calculation [address] [place] [address] [address] 11/20/2024 Comments No Sex and Gender Information Value Date Recorded Sex Assigned at Not on file Legal Sex Female 11:30 AM EST Gender Identity Not on file Sexual Orientation Not on file documented as of this encounter Plan of Treatment Upcoming Encounters Date Type Department Care Team (Latest Contact Info) Description 12/31/2024 9:40 AM EDT PAT Pre Anesthesia [address] [place] [address] 2, Pacc [place] [address] [place], [place] [address] [address] Pre-Op, 01/07/2025, Dr. Sandra 12/31/2024 10:45 AM EDT Results Only [facility] [address] [facility] [place] [address] ct first 12/31/2024 11:15 AM EDT Appointment Radiology [address] [facility] [place] [address] W/WO IV CON Pre-Op 01/07/2025 10:31 AM EDT Hospital Encounter Admitting [address] [place] [address] Brit Sandra MD [address] [place] [address] Ureteral stricture [N13.5] 01/07/2025 10:31 AM EDT - 01/07/2025 2:54 PM EDT Surgery Admitting [address] [place] [address] Brit Sandra MD [address] [place] [address] XI ROBOTIC LAPAROSCOPIC REIMPLANT URETER BLADDER W/ PSOAS HITCH OR BLADDER FLAP 02/05/2025 9:00 AM EST Office Visit Urology [address] [place] [address] Brit Sandra MD [address] [place] [address] Cysto Stent Removal Scheduled Procedures Name Priority [...] documented as of this encounter Care Teams Stucco Laborer Relationship Specialty Start Date End Date Aminta Piper MD [address] [place] [address] PCP - General Family Medicine 01/21/14 12/09/24 Saniya Mays NP [address] [place] [address] PCP - General Family Medicine 12/10/24 Kamaljit Romero MD [address] [place] [address] Referring Urology 11/06/24 Brent Roland DO [address] [place] [address] [place] [address] Daily Release And Dupe Printer 12/10/24 documented as of this encounter
--- OUTSIDE RECORDS SUMMARY | 2024-12-13 10:47 | XMS_ITS | Encounter Summary ---
Author Organization [facility] Address [address] [facility] [place] [address] Care Team Providers Care Toys Inspector Name Role Phone Aminta Piper MD Primary Care Provider [phone] Encounter Details Date Type Department Care Team (Late st Contact Info) Description 08/02/2024 Abstract [facility] [address] [facility] [address] Brent Roland DO [address] [facility] [address] Wiliam Lombardo, [facility]11 Social History Tobacco Use Types Packs/Day [...] on filedocumented in this encounter Care Teams Toys Inspector Relationship Specialty Start Date End Date Aminta Piper MD [address] [place] [address] PCP - General Family Medicine 09/27/22 documented as of this encounter
--- OUTSIDE RECORDS SUMMARY | 2024-12-13 10:47 | XMS_ITS | Encounter Summary ---
Author Organization [facility] Address [address] [place] [address] Care Team Providers Care Routing Equipment Tender Name Role Phone Aminta Piper MD Primary Care Provider [phone] Encounter Details Date Type Department Care Team (Late st Contact Info) Description 10/16/2024 Orders Only [facility] [place] [facility] [address] [place] [phone] Ashley Nicole LPN [address] [place] [phone] Social History Tobacco Use Types Packs/Day Years [...] on filedocumented in this encounter Care Teams Routing Equipment Tender Relationship Specialty Start Date End Date Aminta Piper MD [address] [place] [address] PCP - General Family Medicine 09/27/22 documented as of this encounter
--- OUTSIDE RECORDS SUMMARY | 2024-12-13 10:48 | XMS_ITS | Encounter Summary ---
Author Organization [facility] Address [address] [facility] [place] [address] Care Team Providers Care Group Exercise Instructor Name Role Phone Aminta Piper MD Primary Care Provider [phone] Reason for Visit * Reason Comments Med Refill Encounter Details Date Type Department Care Team (Late st Contact Info) Description 08/05/2024 Refill [facility] [address] [address] [place] [address] Brent Roland DO [address] [facility] [address] Wiliam Lombardo, [facility] Social History Tobacco Use Types Packs/Day Years [...] on filedocumented in this encounter Care Teams Group Exercise Instructor Relationship Specialty Start Date End Date Aminta Piper MD [address] [place] [address] PCP - General Family Medicine 09/27/22 documented as of this encounter
--- OUTSIDE RECORDS SUMMARY | 2024-12-13 10:48 | XMS_ITS | Clinical Summary ---
Author Organization [facility] Address [address] [place] [address] Care Team Providers Care Parking Regulation Enforcement Officer Name Role Phone Kamaljit Romero MD Unavailable [phone] Saniya Mays NP Primary Care Provider Brent Roland DO Unavailable [phone] Allergies Active Allergy Reactions Criticality Noted Date [...] Department Care Team Description 12/05/2024 Telephone Urology [address] [place] [address] Jessica Pinto RN FMLA Paperwork 12/04/2024 Travel 11/21/2024 Get Medical Advice Urology [address] [place] [address] Brit Sandra MD Medication 11/21/2024 Patient Msg [facility] [address] [place] [address] Provider, [facility] Scheduling Information 11/21/2024 Patient Update Urology [address] [place] [id number] Brit Sandra MD 11/20/2024 10:00 AM EDT Office Visit Urology [address] [place] [address] Brit Sandra MD Flank pain (Primary Dx); Ureteral stricture; H/O: hysterectomy 11/20/2024 Travel from Last 3 Months Social History Tobacco Use Types Packs/Day Years Used Date Smoking Tobacco: Never Assessed Area Deprivation Index Answer Date Jorge Luis rded National Score (1-100), lower number is lower ri sk 64 11/20/2024 State Score (1-10), lower number is lower risk 4 11/20/2024 Data from: https://www.neighborhoodatlas.medicine.[facility]edu/. Last address used for calculation [address] [address] 11/20/2024 Comments No Sex and [...] EDT PAT Pre Anesthesia [address] [place] [address] 2, Pacc [place] [address] [place] [address] Pre-Op, 01/07/2025, Dr. Sandra 12/31/2024 10:45 AM EDT Results Only [facility] [address] [place] [address] ct first 12/31/2024 11:15 AM EDT Appointment Radiology [address] [place] [address] W/WO IV CON Pre-Op 01/07/2025 10:31 AM EDT Hospital Encounter Admitting [address] [place] [address] Brit Sandra MD [address] [place] [address] Ureteral stricture [N13.5] 01/07/2025 10:31 AM EDT - 01/07/2025 2:54 PM EDT Surgery Admitting [address] [place] [address] Brit Sandra MD [address] [place] [address] XI ROBOTIC LAPAROSCOPIC REIMPLANT URETER BLADDER W/ PSOAS HITCH OR BLADDER FLAP 02/05/2025 9:00 AM EST Office Visit Urology [address] [place] [address] Brit Sandra MD [address] [place], [place] [phone] Cysto Stent Removal Scheduled Procedures Name Priority [...] Goal Care Plan Autogenerated Problem No Walker dAri Guy Procedures Procedure Name Priority Date/Time Associated Diagnosis Comments XR OUTSIDE CD DICOM IMPORT 10/29/2024 from Last 3 Months Results * SR-XR IVP IMPORT (10/29/2024) Anatomical Region Laterality Modality Other 10/29/2024 Narrative 11/07/2024 12:27 PM EDT Images were obtained outside of [facility] Procedure Note Provider, [facility] [place] - 11/07/2024 Images were obtained outside of [facility] Cc Provider RADIOLOGY Final Result from Last 3 Months Additional Health Concerns Active Problems Noted Date Diagnosed Date Autogenerated Problem 11/21/2024 Insurance [employer] ACCESS PPO Care Teams Parking Regulation Enforcement Officer Relationship Specialty Start Date End Date Saniya Mays NP [address] [place] [address] PCP - General Family Medicine 12/10/24 Kamaljit Romero MD [address] [place] [address] Referring Urology 11/06/24 Brent Roland DO [address] [place] [address] [place] [address] Intelligence Senior Sergeant 12/10/24
[2024-12-13] MEDS: LIDOCAINE 2% JELLY 10 ML UR (11:20)
[2024-12-13 11:21] VITALS: BP 131/75; PULSE 77; O2SAT 100
[2024-12-13 11:22] VITALS: BP 131/78; PULSE 81; O2SAT 100
--- NOTE | 2024-12-13 11:25 | PM.URSON ---
Urology Surgery Operative Note Operative Note Procedure Date: 12/13/24 Time Out Performed: yes Pre-op Diagnosis: Distal left ureteral stricture; status post left stent placement Post-op Diagnosis: same as pre-op Procedures performed: 1. Cystoscopy. 2. Left stent removal. Anesthesia: local Primary Surgeon: Kamaljit Romero Complications: None Estimated blood loss (mL): 0 Drains: None Indications for Procedures: This lady has a distal left ureteral stricture seemingly from a thermal injury in the distant past. A few weeks ago she had a left stent placed for a second time due to a quick recurrence of her stricture. She now presents for cystoscopy and left stent removal. She has signed an informed consent after risks were explained. Detailed description of Procedure: The patient was kept on the gurtalkeetna bed and brought into the endoscopy suite. Timeout was done by all parties in the room. Her genitalia were sterilely prepped and draped in the usual fashion after she was placed in the frog-leg position. 2% lidocaine gel was passed per urethra. I then passed a flexible cystoscope per urethra and into the bladder. The stent was not encrusted. A flexible grasper was passed through the scope and the stent was grasped and then the scope and stent were removed without difficulty. She was then discharged to home.
== END 2024-12-13 11:42 | disposition home or self-care (01) ==
LOC: SURGOUT 10:45
PROVIDERS: PCP Nurse Practitioner Family; Visit Provider Urology
PROC: (CPT 52310; principal; 2024-12-13 11:25)
DX: N13.5 Crossing vessel and stricture of ureter without hydronephrosis (principal); F41.9 Anxiety disorder, unspecified; E03.9 Hypothyroidism, unspecified; Z87.442 Personal history of urinary calculi; N39.3 Stress incontinence (female) (male); Z90.49 Acquired absence of other specified parts of digestive tract; Z90.710 Acquired absence of both cervix and uterus
CPT/HCPCS: 52310

== ENCOUNTER 2024-12-26 07:37 | Outpatient (OUT) | payer BC, SELFPAY ==
--- OUTSIDE RECORDS SUMMARY | 2013-01-18 10:25 | XMS_ITS | Continuity of Care Document ---
Author Organization [facility] Address [address] [place] [address] Phone Care Team Providers Care Strip Machine Tender Name Role Phone Joaoi DO, Sanya Unavailable [...] Diagnoses Date Provider Providers Copied on Encounter [facility], [address] [place] [address], [place], [place], [id number] , [place] tel:[phone] [facility] No Information 3 Visci DO Sanya. [address] [place], [place], [id number] , [place]. tel: [phone] OFFICE/OUTPA TIENT VISIT, EST [facility], [address] [place], [place], [id number] , [place] tel: [phone] [facility] lab results (chief complaint) Genital herpes, unspecified 3 Abdulaziz Prince. [address] [place], [address], [place]. tel: [phone] PREV VISIT, NEW, AGE 18-39 [facility], [address] [place], [place], [id number] , [place] tel: [phone] [facility] annual visit (chief complaint) Gynecological ExaminationCandidiasi s of vulva and vaginaVaginitisHerpes simplex with other specified complications 3 Abdulaziz Prince. [address] [place], [address], [place]. tel: [phone] Family History Family Member Type Diagnosis Age [...] Of Treatment Date Type Action Status Goal H&P. Due on due Goal PAP. Due on due History Of Present Illness Encounter Date Complaint History Of Prese nt Illness No Information Functional Status Date Functional Assessmen t No Information Instructions Date Instruction Additional Infor mation Advise on safer sexual practices Assessments Type Assessment Date No Information Patient Care Teams Name Effective Dates (start - stop) Status Members No Information
--- OUTSIDE RECORDS SUMMARY | 2024-12-26 07:43 | XMS_ITS | Encounter Summary ---
Author Organization [facility] Address [address] [place] [address] Care Team Providers Care Recordings Librarian Name Role Phone Aminta Piper MD Primary Care Provider [phone] Reason for Visit * Reason Comments Med Refill Encounter Details Date Type Department Care Team (Late st Contact Info) Description 02/23/2023 Refill [facility] [address] [place] [address] Brent Roland DO [address] Wiliam Lombardo, [facility]11 Vaginal yeast infection Social History Tobacco Use [...] vagina documented in this encounter Care Teams Recordings Librarian Relationship Specialty [place] [address] [place] [phone] PCP - General Family Medicine 09/27/22 documented as of this encounter
--- OUTSIDE RECORDS SUMMARY | 2024-12-26 07:43 | XMS_ITS | Encounter Summary ---
Author Organization [facility] Address [address] [facility] [place] [address] Care Team Providers Care Teacher Hearing Impaired Name Role Phone Aminta Piper MD Primary Care Provider Encounter Details Date Type Department Care Team (Late st Contact Info) Description 03/03/2023 Abstract [facility] [address] [place] [phone] Tabby Evans LPN [address] [place] [phone] Social History Tobacco Use Types Packs/Day Years [...] on filedocumented in this encounter Care Teams Teacher Hearing Impaired Relationship Specialty Start Date End Date Aminta Piper MD [address] [place] [phone] PCP - General Family Medicine 09/27/22 documented as of this encounter
--- OUTSIDE RECORDS SUMMARY | 2024-12-26 07:43 | XMS_ITS | Encounter Summary ---
Author Organization [facility] Address [facility] [place] [address] Care Team Providers Care Power Engineer Name Role Phone Aminta Piper MD Primary Care Provider [phone] Kamaljit Romero MD Unavailable [phone] Saniya Mays NP Primary Care Provider Brent Roland DO Unavailable [phone] Source Comments In the event this information is protected by the Federal Confidentiality of Alcohol and Drug AbusePatient Records regulations: The Federal rules restrict any use of the information to criminally investigate or prosecute any alcohol or drug abuse patient.[facility] Encounter Details Date Type Department Care Team (Late st Contact Info) Description 11/21/2024 Get Medical Advice Urology [address] [place] [address] Brit Sandra MD [address] [place] [address] Medication Social History Tobacco Use Types Packs/Day Years Used Date Smoking Tobacco: Never Assessed Area Deprivation Index Answer Date Jorge Luis rded National Score (1-100), lower number is lower ri sk 64 11/20/2024 State Score (1-10), lower number is lower risk 4 11/20/2024 Data from: https://www.neighborhoodatlas.medicine.[facility]/. Last address used for calculation [address] 11/20/2024 Comments No Sex and Gender Information Value Date Recorded Sex Assigned at Not on file Legal Sex Female 11:30 AM EST Gender Identity Not on file Sexual Orientation Not on file documented as of this encounter Plan of Treatment Upcoming Encounters Date Type Department Care Team (Latest Contact Info) Description 12/31/2024 9:40 AM EDT PAT Pre Anesthesia [address] [place] [phone] 2, Pacc [place] [address] [phone] Pre-Op, 01/07/2025, Dr. Sandra 12/31/2024 10:45 AM EDT Results Only [facility] [address] [place] [address] ct first 12/31/2024 11:15 AM EDT Appointment Radiology [address] [place] [address] W/WO IV CON Pre-Op 01/07/2025 10:31 AM EDT Hospital Encounter Admitting [address] [place] [address] Brit Sandra MD [address] [phone] Ureteral stricture [N13.5] 01/07/2025 10:31 AM EDT - 01/07/2025 2:54 PM EDT Surgery Admitting [address] [place] [address] Brit Sandra MD [address] [place] [address] XI ROBOTIC LAPAROSCOPIC REIMPLANT URETER BLADDER W/ PSOAS HITCH OR BLADDER FLAP 02/05/2025 9:00 AM EST Office Visit Urology [address] [place] [address] Brit Sandra MD [address] [place], [place] [phone] Cysto Stent Removal Scheduled Procedures Name Priority Associated Diagnoses Date/Ti me XI ROBOTIC LAPAROSCOPIC REIMPLANT URETER BLADDER W/ PSOAS HITCH OR BLADDER FLAP Ureteral stricture 01/07/2025 10:31 AM EDT documented as of this encounter Visit Diagnoses Not on filedocumented in this encounter Care Teams Power Engineer Relationship Specialty Start Date End Date Aminta Piper MD [address] [place] [address] PCP - General Family Medicine 01/21/14 12/09/24 Saniya Mays NP [address] [place] [address] PCP - General Family Medicine 12/10/24 Kamaljti Romero MD [address] [place] [address] Referring Urology 11/06/24 Brent Roland DO [address] [place] [address] Dr Wiliam Casanova [place], [place] [phone] Clinical Operations Leader 12/10/24 documented as of this encounter
--- OUTSIDE RECORDS SUMMARY | 2024-12-26 07:44 | XMS_ITS | Encounter Summary ---
Author Organization [facility] Address [address] [place] [address] Care Team Providers Care Conditioner Tumbler Operator Name Role Phone Kamaljit Romero MD Unavailable [phone] Saniya Mays CARE TAKER Primary Care Provider Brent Roland DO Unavailable Source Comments In the event this information is protected by the Federal Confidentiality of Alcohol and Drug AbusePatient Records regulations: The Federal rules restrict any use of the information to criminally investigate or prosecute any alcohol or drug abuse patient.[facility] Reason for Visit * Reason Comments Conditioning Room Worker - Other Encounter Details Date Type Department Care Team (Late st Contact Info) Description 12/25/2024 Telephone Urology [address] [address] Mary Ann Gonzales, RN Conditioning Room Worker - Other Social History Tobacco Use Types Packs/Day Years Used Date Smoking Tobacco: Never Assessed Area Deprivation Index Answer Date Jorge Luis rded National Score (1-100), lower number is lower ri sk 64 11/20/2024 State Score (1-10), lower number is lower risk 4 11/20/2024 Data from: https://www.neighborhoodatlas.[facility]/. Last address used for calculation [address] 81 11/20/2024 Comments No Sex and Gender Information Value Date Recorded Sex Assigned at Not on file Legal Sex Female 11:30 AM EST Gender Identity Not on file Sexual Orientation Not on file documented as of this encounter Miscellaneous Notes * Telephone Encounter - Mary Ann Gonzales RN - 12/25/2024 9:52 AM EDT Called pt regarding getting UC done locally, pt stated she could get it done at [facility] today. Told her I would fax it over to them. Mary Ann Gonzales RN documented in this encounter Plan of Treatment Upcoming Encounters Date Type Department Care Team (Latest Contact Info) Description 12/31/2024 9:40 AM EDT PAT Pre Anesthesia [address] [place] [address] 2, Pacc [place] [address] [place] [address] [phone] Pre-Op, 01/07/2025, Dr. Sandra 12/31/2024 10:45 AM EDT Results Only [facility] [address] [facility] [place] [address] ct first 12/31/2024 11:15 AM EDT Appointment Radiology [address] [place] [address] W/WO IV CON Pre-Op 01/07/2025 10:31 AM EDT Hospital Encounter Admitting [address] [place] [address] Brit Sandra MD [address] [place] [address] Ureteral stricture [N13.5] 01/07/2025 10:31 AM EDT - 01/07/2025 2:54 PM EDT Surgery Admitting [address] [place] [address] Brit Sandra MD [address] [place] [address] XI ROBOTIC LAPAROSCOPIC REIMPLANT URETER BLADDER W/ PSOAS HITCH OR BLADDER FLAP 02/05/2025 9:00 AM EST Office Visit Urology [address] [place] [address] Brit Sandra MD [address] [place] [address] Cysto Stent Removal Scheduled Procedures Name Priority Associated Diagnoses Date/Ti me XI ROBOTIC LAPAROSCOPIC REIMPLANT URETER BLADDER W/ PSOAS HITCH OR BLADDER FLAP Ureteral stricture 01/07/2025 10:31 AM EDT documented as of this encounter Visit Diagnoses Not on filedocumented in this encounter Care Teams Conditioner Tumbler Operator Relationship Specialty Start Date End Date Saniya Mays NP [address] [place] [phone] PCP - General Family Medicine 12/10/24 Kamaljit Romero MD [address] [place] [address] Referring Urology 11/06/24 Brent Roland DO [address] [place] [address] [place] [address] Sales Center Associate 12/10/24 documented as of this encounter
--- OUTSIDE RECORDS SUMMARY | 2024-12-26 07:44 | XMS_ITS | Encounter Summary ---
Author Organization [facility] Address [address] [place] [address] Care Team Providers Care Stencil Inspector Name Role Phone Kamaljit Romero MD Unavailable [phone] Saniya Mays HOTEL MAID Primary Care Provider Brent Roland DO Unavailable [phone] Source Comments In the event this information is protected by the Federal Confidentiality of Alcohol and Drug AbusePatient Records regulations: The Federal rules restrict any use of the information to criminally investigate or prosecute any alcohol or drug abuse patient.[facility] Encounter Details Date Type Department Care Team (Late st Contact Info) Description 12/18/2024 Telephone Urology [address] [phone] Mary Ann Gonzales RN Social History Tobacco Use Types Packs/Day Years Used Date Smoking Tobacco: Never Assessed Area Deprivation Index Answer Date Jorge Luis rded National Score (1-100), lower number is lower ri sk 64 11/20/2024 State Score (1-10), lower number is lower risk 4 11/20/2024 Data from: https://www.neighborhoodatlas.[facility]/. Last address used for calculation [address] 81 11/20/2024 Comments No Sex and Gender Information Value Date Recorded Sex Assigned at Not on file Legal Sex Female 11:30 AM EST Gender Identity Not on file Sexual Orientation Not on file documented as of this encounter Miscellaneous Notes * Telephone Encounter - Mary Ann Gonzales RN - 12/18/2024 4:14 PM EDT Faxed FMLA paper work via scan to provided fax number and right fax, both times failed with right fax. And fax failed directly from printer. Will follow up with pt to see if this is a correct number. Mary Ann Gonzales RN documented in this encounter Plan of Treatment Upcoming Encounters Date Type Department Care Team (Latest Contact Info) Description 12/31/2024 9:40 AM EDT PAT Pre Anesthesia 5700 [place] [address] 2, Pacc [place] [address] [place] [phone] Pre-Op, 01/07/2025, Dr. Sandra 12/31/2024 10:45 AM EDT Results Only [facility] [address] [place] [address] ct first 12/31/2024 11:15 AM EDT Appointment Radiology [address] [place] [address] W/WO IV CON Pre-Op 01/07/2025 10:31 AM EDT Hospital Encounter Admitting [address] [place] [address] Brit Sandra MD [address] [place] [address] Ureteral stricture [N13.5] 01/07/2025 10:31 AM EDT - 01/07/2025 2:54 PM EDT Surgery Admitting [address] [place] [address] Brit Sandra MD [address] [place] [address] XI ROBOTIC LAPAROSCOPIC REIMPLANT URETER BLADDER W/ PSOAS HITCH OR BLADDER FLAP 02/05/2025 9:00 AM EST Office Visit Urology [address] [place] [address] Brit Sandra MD [address] [place] [address] Cysto Stent Removal Scheduled Procedures Name Priority Associated Diagnoses Date/Ti me XI ROBOTIC LAPAROSCOPIC REIMPLANT URETER BLADDER W/ PSOAS HITCH OR BLADDER FLAP Ureteral stricture 01/07/2025 10:31 AM EDT documented as of this encounter Visit Diagnoses Not on filedocumented in this encounter Care Teams Stencil Inspector Relationship Specialty Start Date End Date Saniya Mays NP [address] [place] [address] PCP - General Family Medicine 12/10/24 Kamaljit Romero MD [address] [place] [address] Referring Urology 11/06/24 Brent Roland DO [address] [place] [address] [place] [address] Wastewater Engineer 12/10/24 documented as of this encounter
--- OUTSIDE RECORDS SUMMARY | 2024-12-26 07:44 | XMS_ITS | Encounter Summary ---
Author Organization [facility] Address [address] [place] [address] Care Team Providers Care Road Freight Conductor Name Role Phone Kamaljit Romero MD Unavailable [phone] Saniya Mays MINE FOREMAN Primary Care Provider Brent Roland DO Unavailable [phone] Source Comments In the event this information is protected by the Federal Confidentiality of Alcohol and Drug AbusePatient Records regulations: The Federal rules restrict any use of the information to criminally investigate or prosecute any alcohol or drug abuse patient.[facility] Encounter Details Date Type Department Care Team (Late st Contact Info) Description 12/25/2024 Telephone Urology [address] [phone] Mary Ann Gonzales RN Social History Tobacco Use Types Packs/Day Years Used Date Smoking Tobacco: Never Assessed Area Deprivation Index Answer Date Jorge Luis rded National Score (1-100), lower number is lower ri sk 64 11/20/2024 State Score (1-10), lower number is lower risk 4 11/20/2024 Data from: https://www.neighborhoodatlas.[facility]/. Last address used for calculation [address] 81 11/20/2024 Comments No Sex and Gender Information Value Date Recorded Sex Assigned at Not on file Legal Sex Female 11:30 AM EST Gender Identity Not on file Sexual Orientation Not on file documented as of this encounter Miscellaneous Notes * Telephone Encounter - Mary Ann Gonzales RN - 12/25/2024 9:59 AM EDT Faxed urine culture order to [facility] lab for pt to get it done today. Mary Ann Gonzales RN documented in this encounter Plan of Treatment Upcoming Encounters Date Type Department Care Team (Latest Contact Info) Description 12/31/2024 9:40 AM EDT PAT Pre Anesthesia [address] [place] [phone] 2, Pacc [place] [address] [place], [place] [phone] Pre-Op, 01/07/2025, Dr. Sandra 12/31/2024 10:45 AM EDT Results Only [facility] [address] [place] [address] ct first 12/31/2024 11:15 AM EDT Appointment Radiology [address] [place] [address] W/WO IV CON Pre-Op 01/07/2025 10:31 AM EDT Hospital Encounter Admitting [address] [place] [address] Brit Sandra MD [address] [place] [address] Ureteral stricture [N13.5] 01/07/2025 10:31 AM EDT - 01/07/2025 2:54 PM EDT Surgery Admitting [address] [place] [address] Brit Sandra MD [address] [place] [phone] XI ROBOTIC LAPAROSCOPIC REIMPLANT URETER BLADDER W/ PSOAS HITCH OR BLADDER FLAP 02/05/2025 9:00 AM EST Office Visit Urology [address] [place] [address] Brit Sandra MD [address] [place] [address] Cysto Stent Removal Scheduled Procedures Name Priority Associated Diagnoses Date/Ti me XI ROBOTIC LAPAROSCOPIC REIMPLANT URETER BLADDER W/ PSOAS HITCH OR BLADDER FLAP Ureteral stricture 01/07/2025 10:31 AM EDT documented as of this encounter Visit Diagnoses Not on filedocumented in this encounter Care Teams Road Freight Conductor Relationship Specialty Start Date End Date Saniya Mays NP [address] [place] [address] PCP - General Family Medicine 12/10/24 Kamaljit Romero MD [address] [place] [address] Referring Urology 11/06/24 Brent Roland DO [address] [place] [address] [place] [address] Onyx Chip Terrazzo Worker 12/10/24 documented as of this encounter
--- OUTSIDE RECORDS SUMMARY | 2024-12-26 07:44 | XMS_ITS | CCD ---
Author Organization [facility] Care Team Providers Care Arts Therapist Name Role Phone Treasure Quezada Unavailable SURYA HODGES Primary Care Physician [phone] MD Surya Hodges Primary Care Provider [phone] KITA Quezada Attending Provider Surya Hodges Unavailable [...] Emergency Provider MD Baljinder Polanco Admit Provider [phone] MD Baljinder Polanco Attending Provider Jason Beasley Unavailable Surya Hodges MD Primary Care Provider [phone] Surya Hodges MD Primary Care Provider [phone] Surya Hodges MD Primary Care Provider Saniya Mays APRN Primary Care Provider Brent Roland DO Attending Provider Kamaljit Ayala MD Attending Provider Saniya Mays APRN Attending Provider BRENT ROLAND Attending Unavailable CIRO ROLANDY Attending Unavailable YESICA MCNAIR Attending Unavailable ASUNCION, BRENT Attending Unavailable Saniya Mays APRN Primary Care Provider Asuncion MERCADO, Brent Attending Provider [phone] Saniya Mays Primary Care Unavailable Kamaljit Ayala Unavailable Kamaljit Ayala Admitting Unavailable Surya Hodges MD Primary Care Provider Kamaljit Ayala MD Unavailable SURYA HODGES Primary Care Unavailable NATO HAWKINS Attending Unavailable SURYA HODGES Primary Care Unavailable SANIYA MAYS Primary Care Unavailab le NATO HAWKINS Attending Unavailable NATO HAWKINS Admitting Unavailable AYALA, Kamaljit R Attending Unavailable AYALA, Kamaljit R Attending Unavailable AYALA, Kamaljit R Attending Unavailable AYALA, Kamaljit R Attending Unavailable AYALA, Kamaljit R Attending Unavailable AYALA, Kamaljit R Attending Unavailable AYALA, Kamaljit R Attending Unavailable AYALA, Kamaljit R Referring Unavailable AYALA, Kamaljit R Attending Unavailable AYALA, Kamaljit R Attending Unavailable Allergies Allergy Classification Reported Allergen(s) Allergy Type Date of Onset Reaction(s) Facility (20 sources) Azithromycin; Translations: [azithromycin] Drug Allergy 05-04-19 24 rash, Eruption of skin (disorder) [facility] (20 sources) whooping cough Propensity to adverse reactions 04-04-19 24 swelling injection site [facility] (16 sources) Bordetella pertussis filamentous hemagglutinin vaccine, inactivated / Bordetella pertussis fimbriae 2/3 vaccine, inactivated / Bordetella pertussis pertactin vaccine, inactivated / Bordetella pertussis toxoid vaccine, inactivated / diphtheria toxoid vaccine, inactivated / tetanus toxoid vaccine, inactivated; Translations: [diphtheria/pertu ssis, acel/tetanus adult] Drug Allergy 03-14-19 20 Unknown, Comment:vaccin e [facility] (20 sources) Clindamycin; Translations: [clindamycin] Drug Allergy 03-14-19 20 Rash, Hives [facility] Comment on above: Onset Date: 03/14/19 20 (2 sources) acellular pertussis vaccine, inactivated / diphtheria toxoid vaccine, inactivated / tetanus toxoid vaccine, inactivated Drug Allergy [facility] (2 sources) Clindamycin Drug Allergy [facility] (10 sources) vaccine adjuvant system, AS01B liposomal Allergy to substance 12-01-19 23 Rash [facility] (17 sources) Jugiynk-Fpmdtl-Uo ell Pertussis Propensity to adverse reactions 09-24-19 23 Swelling [facility] Work Phone: (9 sources) diphtheria,pertus sis (acellular),te Allergy to substance 05-04-19 24 Comment:amrit dejesus [facility] Comment on above: Onset Date: 03/14/19 20 (8 sources) Penicillins Allergy to substance 06-17-19 24 Hives [facility] (11 sources) Tetanus-Diphtheri a Toxoids Td Drug Allergy 07-13-19 25 Other [facility] (4 sources) Dtap-Ipv Component 1 Of 2 (Pf); Translations: [DTAP-IPV COMPONENT 1 OF 2 (PF)] Drug Intolerance 11-21-19 25 Intolerance [facility] Medications Current Medications Medication Drug Class(es) [...] 7 days 28 tablet 07/10/2024 07/17/2024 Active [id number] actuat albuterol 0.09 mg/actuat metered dose [...] scontinued 150 MG PO Q3D 2 0 Hong 4th, 2024 1:00am May 16, 2024 11:47am Take [...] BID, # 60 tab(s), Refills(s) 1, Pharmacy: [facility]/pharmacy #[id number] Start Date: 09/06/24 Status: Ordered [...] Start: 09-05-2024 take 0.5 tablet by m outh once daily Start: 12-19-2023 End: 02-15-2024 take [...] Daily, # 30 cap(s), Refills(s) 0, Pharmacy: [facility]/pharmacy #[id number] Start Date: 09/06/24 Status: Ordered [...] procedure, # 2 tab(s), Refills(s) 0, Pharmacy: [facility]/pharmacy #[id number] Start Date: 09/11/24 Status: Ordered [...] 11:47am Start: 03-11-2023 take 1 capsule by cox branson every twelve hours Doxycycline Hyclate 100 MG [...] pack Discontinued 0 PO per package directions 21 December 02, 2023 11:05am December 19, 2023 11:01am [...] deficiency] Episodic Other aftercare (1 source) Other halfway (current) drug therapy; Translations: [OTH CURTAIN STITCHER CURRENT DRUG THERAPY] Onset: 3 Episodic Other aftercare (3 sources) Long-term current use of drug therapy; Translations: [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 12-18-2024 [facility] Telephone (JOHANNY) ----- KARLENE ALFARO ([id number]) 1990 F Date Time Provider Department 12/18/24 GAIL BORRERO During your visit today, we recorded the following information about you: Gail Borrero RN 12/18/2024 4:17 PM Signed Faxed [place] paper work via scan to provided fax number and right fax, both times failed with right fax. And fax failed directly from printer. Will follow up with pt to see if this is a correct number. Gail Janet, RN Allergies As of Date: 12/18/2024 Noted Allergy Reaction CLINDAMYCIN 11/20/2024 4 - Hives Comments: Rash DTAP-IPV COMPONENT 1 OF 2 (PF) 11/20/2024 5 - Intolerance Comments: Hives; Rash; Welt Date Reviewed: 11/20/2024 Reviewed by: Mendy Bartholomew MA - Fully Assessed Prescriptions as of 12/18/2024 - cephALEXin (KEFLEX) 500 mg capsule Take 1 capsule by mouth every 12 hours. - levothyroxine (SYNTHROID) 137 mcg tablet Take 1 tablet by mouth once daily. - mirabegron (MYRBETRIQ) 50 mg Tb24 Take 1 tablet by mouth once daily. - ibuprofen (MOTRIN) 800 mg tablet TAKE 1 TABLET BY MOUTH EVERY 8 HOURS NEEDED FOR MILD PAIN Problem List As Of Date: 12/18/2024 (None) Encounter Status:Closed by [facility] ----- KARLENE ALFRAO ([id number]) 1990 F Date Time Provider Department 12/17/24 NATO HAWKINS During your visit today, we recorded the following information about you: Gail Borrero RN 12/17/2024 10:31 AM Addendum Spoke with pt, she is going to schedule post op [address] Ayala locally, will send my chart message to confirm appointment. Gail Borrero RN ----- Message from Erin Casanova sent at 12/17/2024 9:30 AM EDT ----- Do you want us to add on for 01/21 with you or should we schedule that 01/22? ----- Message ----- From: Gail Borrero RN Sent: 12/12/2024 3:02 PM EDT To: Cristine Scheduling Appt Pt needs TOV visit scheduled 14 days post op (surgery 01/07), I can do it, or fellow Bia Coronel can do it, thanks Allergies As of Date: 12/17/2024 Noted Allergy Reaction CLINDAMYCIN 11/20/2024 4 - Hives Comments: Rash DTAP-IPV COMPONENT 1 OF 2 (PF) 11/20/2024 5 - Intolerance Comments: Hives; Rash; Welt Date Reviewed: 11/20/2024 Reviewed by: Mendy Bartholomew MA - Fully Assessed Reason for Visit: Rehab Physician - Other [[id number]] Prescriptions as of 12/17/2024 - cephALEXin (KEFLEX) 500 mg capsule Take 1 capsule by mouth every 12 hours. - levothyroxine (SYNTHROID) 137 mcg tablet Take 1 tablet by mouth once daily. - mirabegron (MYRBETRIQ) 50 mg Tb24 Take 1 tablet by mouth once daily. - ibuprofen (MOTRIN) 800 mg tablet TAKE 1 TABLET BY MOUTH EVERY 8 HOURS NEEDED FOR MILD PAIN Problem List As Of Date: 12/17/2024 (None) Encounter Status:Closed by GAIL BORRERO on 12/17/24 [facility] Telephone (JOHANNY) ----- KARLENE ALFARO ([id number]) 1990 F Date Time Provider Department 12/13/24 GAIL BORRERO During your visit today, we recorded the following information about you: Gail Borrero RN 12/13/2024 2:10 PM Signed Left voicemail with Karlene Alfaro to confirm surgery date of 01/[address] Hawkins Discussed pre op testing on 12/31 in [facility], and CT urogram scheduled 12/31 Provided office number for pt to call back and confirm Gail Borrero RN Allergies As of Date: 12/13/2024 Noted Allergy Reaction CLINDAMYCIN 11/20/2024 4 - Hives Comments: Rash DTAP-IPV COMPONENT 1 OF 2 (PF) 11/20/2024 5 - Intolerance Comments: Hives; Rash; Welt Date Reviewed: 11/20/2024 Reviewed by: Mendy Bartholomew MA - Fully Assessed Reason for Visit: Rehab Physician - Other [[id number]] Prescriptions as of 12/13/2024 - cephALEXin (KEFLEX) [...] Of Date: 12/13/2024 (None) Encounter Status:Closed by GAIL BORRERO on 12/13/24 [facility] 12-05-2024 [facility] Telephone (FVUROL) ----- KARLENE ALFARO ([id number]) 1990 F Date Time Provider Department 12/05/24 EDGAR CARIAS FVUROL During your visit today, we recorded the following information about you: Edgar Carias RN 12/05/2024 1:18 PM Signed [facility] paperwork completed, emailed to patient per request, and sent to be scanned into [employer]. Allergies As of Date: 12/05/2024 Noted Allergy Reaction CLINDAMYCIN 11/20/2024 4 - Hives Comments: Rash DTAP-IPV COMPONENT 1 OF 2 (PF) 11/20/2024 5 - Intolerance Comments: Hives; Rash; Welt Date Reviewed: 11/20/2024 Reviewed by: Mendy Bartholomew MA - Fully Assessed Reason for Visit: [facility] Paperwork [[id number]] Prescriptions as of 12/05/2024 - cephALEXin (KEFLEX) [...] Encounter Status:Closed by EDGAR CARIAS on 12/05/24 [facility] 11-20-2024 CNOV Office Visit (FVUROL ) ----- KARLENE ALFARO ([id number]) 1990 F Date Time Provider Department 11/20/24 10:00 AM NATO HAWKINS During your visit today, we recorded the following information about you: Blood pressure Last Period 133/93 06/12/18 Nato Hawkins MD 11/20/2024 12:24 PM Signed [facility] UROLOGY NEW PATIENT [...] Nato Hawkins MD Staff Urologist Genitourinary Reconstruction [facility] Department of Urology I spent a total of 30 minutes on the date of the service which included preparing to see the patient, [id number] patient care, completing clinical documentation, obtaining and/or [...] Welt Date Reviewed: 11/20/2024 Reviewed by: Mendy Batrholomew MA - Fully Assessed Reason for Visit: [...] 11/20/2024 (None) (more content not included)... Normal [facility] Creatinineon 10-29-2024 GFR/1.73 sq M.predicted MDRD (S/P/Bld) [Vol rate/Area] mL/min/{1.73_m2} Normal [facility] Comment on above: Order Comment: STAT FOR IVP Result Comment: PERF ORMED BY: [address] [address] PATHOLOGIST GRAIN DRIER OPERATOR ZITA BATISTA M.D. Performed By: #### C REAT #### [address] Creatinine [Mass/volume] in Serum or PlasmaOrdered By: Kamaljit Ayala on 10-29-2024 Creatinine [Mass/Vol] 0.77 mg/dL Normal 0.60-1.20 [facility] Comment on above: Order Comment: STAT FOR IVP Performed By: #### C REAT #### [address] No Panel InformationOrdered By: Kamaljit Ayala on 10-29-2024 Estimated GFR (CKD-EPI) > 60.0 mL/Min [facility] Creatinine Clearance (Chem N/A [facility] X-ray reportOrdered By: Crow Ramos on 10-29-2024 Study report [facility] [place] [address] [place] [address] XRay Report Signed Patient: Karlene Alfaro MR#: [id number] : 1990 Acct:[id number] Age/Sex: 34 / F ADM Date: 5 Loc: XD Room: Type: [facility] Attending Dr: Kamaljit Ayala MD Copies to: Kamaljit Ayala MD~ Ordering Provider: Kamaljit Ayala MD Date of Service: 10/29/24 XR/XR IVP: LT FLANK PAIN, URETERAL STICTURE XR IVP 10/29/2024 8:56 AM SIGNS AND SYMPTOMS: ^LT FLANK PAIN, URETERAL STICTURE ^HOLDING RM FOR LABS PROTOCOL: Rest Room Attendant radiographs of the abdomen and pelvis [...] Ramos M.D. 10/29/2024 10:15 AM Dictation Location: [place] [address] Transcribed By: [facility] 10/29/24 1015 Dictated By: Crow Ramos II, MD 10/29/24 1011 Signed By: 10/29/24 1015 [facility] Work Phone: XR IVPon 10-29-2024 XR IVP [facility] [place] [address] [place] [address] XRay Report Signed Patient: Karlene Alfaro MR#: [id number] : 1990 Acct:[id number] Age/Sex: 34 / F ADM Date: 10/29/24 Loc: XD Room: Type: [facility] Attending Dr: Kamaljit Ayala MD Copies to: Kamaljit Ayala MD Ordering Provider: Kamaljit Ayala MD Date of Service: 10/29/24 XR/XR IVP: LT FLANK PAIN, URETERAL STICTURE XR IVP 10/29/2024 8:56 AM SIGNS AND SYMPTOMS: LT FLANK PAIN, URETERAL STICTURE HOLDING FOR LABS PROTOCOL: Rest Room Attendant radiographs of the abdomen and pelvis [...] Ramos M.D. 10/29/2024 10:15 AM Dictation Location: [facility]--24 Transcribed By: TORITO 10/29/24 1015 Dictated By: Crow Ramos II, MD 10/29/24 1011 Signed By: 10/29/24 1015 Normal [facility] IGP,APTIMA HPV,AGE GDLNon AGE GDLN ACOG TESTING Note . [facility] Comment on above: TESTS RESULT FLAG UN ITS REF RANGE LAB Clinician Provided Cytology Information Source.............Vagina No. of containers..01 ThinPrep Vial Age Algo ACOG Olga... 30-65 01 FLAG LEGEND: L-Low Normal,H-High Normal,LL-Alert Low,HH-Alert High <-Panic Low,>-Panic High,A-Abnormal,AA-Critical Abnormal Performed at: 01 =G [address] [address] Ernestina Carballo MD, HPV APTIMA Negative Negative [facility] Comment on above: This nucleic acid am plification test detects fourteen high- risk HPV types (16,18,31,33,35,39,45,51,52,56,58,59,66,68) without differentiation. Performed at: =G - [facility], [place] [id number] Trombone Slide Assembler: Ernestina Carballo MD, Phone: [phone] Performed at: - [facility], [place] [id number] Trombone Slide Assembler: Ernestina Carballo MD, Phone: [phone] IGP, APTIMA HPV, RFX 16/18,45 Note . [facility] Comment on above: TESTS RESULT FLAG UN ITS REF RANGE LAB DIAGNOSIS: 02 NEGATIVE FOR INTRAEPITHELIAL LESION OR MALIGNANCY. Specimen adequacy: 02 Satisfactory for evaluation. No endocervical component is identified. Performed by: 02 Delphine Taylor, Armature Winder Repairer ([facility]) . 02 Note: Note 02 The Pap [...] <-Panic Low,>-Panic High,A-Abnormal,AA-Critical Abnormal Performed at: [address] [place] [address] Ernestina Carballo MD, SPATULA-ALONE VAGINA [facility] Human papilloma virus 16+18+ 31+33+35+39+45+51+52+56+58+59+66+68 DNA [Presence] in CerOrdered By: Brent Roland on 10-09-2024 HPV 16+18+31+33+35+39+45+5 1+52+56+58+59+66+68 DNA Probe+sig amp Ql (Cvx) Negative Negative [facility] Comment on above: This nucleic acid am plification test detects fourteen high- risk HPV types (16,18,31,33,35,39,45,51,52,56,58,59,66,68)without differentiation.Performed at: = - [facility] [id number] Director: Ernestina Carballo MD, Phone: [phone] at: [facility] Lab[address] [id number] Director: Ernestina Carballo MD, Phone: [phone] No Panel InformationOrdered By: Brent Roland on 10-09-2024 HPV High Risk Other Comment Note . [facility] Comment on above: TESTS RESULT FLAG UN ITS REF RANGE LAB DIAGNOSIS: 02 NEGATIVE FOR INTRAEPITHELIAL LESION OR MALIGNANCY.Specimen adequacy: 02 Satisfactory for evaluation. No endocervical component is identified.Performed by: 02 Delphine Taylor, Armature Winder Repairer (ASCP). 02Note: Note 02 The Pap smear [...] Low,>-Panic High,A-Abnormal,AA-Critical Abnormal -----Performed at:02 [facility] [address] [address] Ernestina Carballo MD, Reference Lab Test Patient Age Note . [facility] Comment on above: TESTS RESULT FLAG UN ITS REF RANGE LAB Clinician Provided Cytology Information Source.............Vagina No. of containers..01 ThinPrep VialAge Hal SNOW Olga... 30-65 01 FLAG LEGEND: L-Low Normal,H-High Normal,LL-Alert Low,HH-Alert High <-Panic Low,>-Panic High,A-Abnormal,AA-Critical Abnormal -----Performed at:01 [facility] [address] [place] [address] Ernestina Carballo MD, Ambulatory Visit Summaryon 0 [...] [facility] [address] , [place] [address]- Medications What How Much When Instructions Unchanged [...] ? 8 oz (237 mL) of milk, oshmxvo-qaorfnyvbawq-zmel y milk, and calcium-fortifiedfruit juice. Calcium-fortified means [...] and vegetable (more content not included)... Normal [facility] Urology Office/Clinic Noteon 10-02-2024 Urology Office/Clinic [...] ureteral stricture found. 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 Ayala on 10/02/2024 [...] is negati (more content not included)... Normal [facility] Comment on above: Result Comment: Elec tronically Signed By: Kamaljit AYALA MD\.br\Date and Time Signed: 10/02/24 15:55 EDT\.br\Electronically Co-Signed By: Debbie Guadalupe\.br\Date and Time Co-Signed: 10/02/24 15:45 EDT Provider Letteron 09-13-2024 Provider Letter Provider Letter September 13, 2024 KARLENE ALFARO [id number] [address] : 1990 To Whom It May Concern, Please excuse above patient from work. Date of Illness: From: 09/06/24 To: 10/02/24 May Return to Work On: 10/03/24 Restrictions: None Comments: Continuation of FMLA from 09/06/24- 10/02/24. Patient may return to work without restrictions on 10/03/24. Sincerely, [facility]/ Dr. Kamaljit Ayala [address] [place] [address] [facility] Comment on above: Other Comment: corre ction/ pt change mind Provider Letter Provider Letter September 13, 2024 KARLENE ALFARO [address] [address] : 1990 To Whom It May Concern, Please excuse above patient from work. Date of Illness: From: 09/06/24 To: 09/17/24 May Return to Work On:09/18/24 Restrictions: Patient may return to work 09/18/24 with no heavy lifting and light duty. Comments: N/A Sincerely, [facility] Basophils Auto (Bld) [#/Vol] on 08-23-2024 Basophils (Bld) [#/Vol] 0.0 10 3/uL 0.0-0.1 [facility] Basophils/100 WBC Auto (Bld) on 08-23-2024 Basophils/100 WBC (Bld) 0.6 % 0.2-2.0 [facility] Eosinophils/100 WBC Auto (Bl d)on 08-23-2024 Eosinophils/100 WBC (Bld) 3.0 % 0.9-7.0 [facility] Erythrocyte distribution wid th Auto (RBC) [Ratio]on 08-23-2024 Erythrocyte distribution width (RBC) [Ratio] 13.2 % 11.0-15.0 [facility] Estimated glomerular filtrat ion rate (GFR) non- Americanon 08-23-2024 GFR/1.73 sq M.predicted among non-blacks MDRD (S/P/Bld) [Vol rate/Area] mL/min/{1.73_m2} >=60 mL/min/1.7 3m 2 [facility] Hematocrit Auto (Bld) [Volum e fraction]on 08-23-2024 Hematocrit (Bld) [Volume fraction] 39.6 % 36.0-48.0 [facility] Hemoglobin [Mass/volume] in Bloodon 08-23-2024 Hemoglobin (Bld) [Mass/Vol] 12.9 g/dL 12.0-16.0 [facility] Laboratory - Chemistry and C hemistry - challengeon 08-23-2024 Calcium [Mass/Vol] 9.0 mg/dL 8.5-10.1 [facility] Chloride [Moles/Vol] 104 mmol/L 98-107 [facility] CO2 [Moles/Vol] 26.7 mmol/L 21.0-32.0 [facility] Creatinine [Mass/Vol] 0.82 mg/dL 0.55-1.02 [facility] GFR/1.73 sq M.predicted MDRD (S/P/Bld) [Vol rate/Area] mL/min/{1.73_m2} >=60 mL/min/1.7 3m 2 [facility] Glucose [Mass/Vol] 94 mg/dL 74-106 [facility] Potassium [Moles/Vol] 3.9 mmol/L 3.5-5.1 [facility] Sodium [Moles/Vol] 139 mmol/L 136-145 [facility] Urea nitrogen [Mass/Vol] 9.0 mg/dL 7.0-18.0 [facility] Urea nitrogen/Creatinine [Mass ratio] 11.0 mg/mg [facility] Laboratory - Hematology and Cell countson 08-23-2024 Immature granulocytes/100 WBC (Bld) 0.1 % 0.0-0.5 [facility] Leukocytes [#/volume] correc jocelynn for nucleated erythrocytes in Blood by Automated counon 08-23-2024 WBC corrected for nucl RBC Auto (Bld) [#/Vol] 6.7 10 3/uL 4.0-11.0 [facility] Lymphocytes Auto (Bld) [#/Vo l]on 08-23-2024 Lymphocytes (Bld) [#/Vol] 2.4 10 3/uL 1.2-3.8 [facility] Lymphocytes/100 WBC Auto (Bl d)on 08-23-2024 Lymphocytes/100 WBC (Bld) 34.9 % 20.5-60.0 [facility] MCH Auto (RBC) [Entitic mass ]on 08-23-2024 MCH (RBC) [Entitic mass] 26.2 pg Low 26.7-34.0 [facility] MCHC Auto (RBC) [Mass/Vol]on 08-23-2024 MCHC (RBC) [Mass/Vol] 32.6 g/dL 29.9-35.2 [facility] MCV Auto (RBC) [Entitic vol] on 08-23-2024 MCV (RBC) [Entitic vol] 80.5 fL Low 81.0-99.0 [facility] Monocytes Auto (Bld) [#/Vol] on 08-23-2024 Monocytes (Bld) [#/Vol] 0.3 10 3/uL 0.3-0.8 [facility] Monocytes/100 WBC Auto (Bld) on 08-23-2024 Monocytes/100 WBC (Bld) 4.9 % 1.7-12.0 [facility] Neutrophils Auto (Bld) [#/Vo l]on 08-23-2024 Neutrophils (Bld) [#/Vol] 3.8 10 3/uL 1.4-6.5 [facility] Neutrophils/100 WBC Auto (Bl d)on 08-23-2024 Neutrophils/100 WBC (Bld) 56.5 % 43.0-75.0 [facility] No Panel Informationon 08-23 Eosinophils # (Auto) 0.2 10 3/uL 0.0-0.7 [facility] Immature Granulocyte # (Auto) 0.01 10 3/uL 0.00-0.03 [facility] Platelet mean volume Auto (B ld) [Entitic vol]on 08-23-2024 Platelet mean volume (Bld) [Entitic vol] 8.9 fL Low 9.5-13.5 [facility] Platelets Auto (Bld) [#/Vol] on 08-23-2024 Platelets (Bld) [#/Vol] 398 10 3/uL 150-450 [facility] RBC Auto (Bld) [#/Vol]on RBC (Bld) [#/Vol] 4.92 10 6/uL 4.20-5.40 [facility] Serum or plasma anion gap de terminationon 08-23-2024 Anion gap [Moles/Vol] 12.2 mmol/L [facility] Basophils Auto (Bld) [#/Vol] on 08-02-2024 Basophils (Bld) [#/Vol] 0.1 10 3/uL 0.0-0.1 [facility] Basophils/100 WBC Auto (Bld) on 08-02-2024 Basophils/100 WBC (Bld) 0.6 % 0.2-2.0 [facility] Eosinophils/100 WBC Auto (Bl d)on 08-02-2024 Eosinophils/100 WBC (Bld) 1.6 % 0.9-7.0 [facility] Erythrocyte distribution wid th Auto (RBC) [Ratio]on 08-02-2024 Erythrocyte distribution width (RBC) [Ratio] 13.1 % 11.0-15.0 [facility] Hematocrit Auto (Bld) [Volum e fraction]on 08-02-2024 Hematocrit (Bld) [Volume fraction] 43.7 % 36.0-48.0 [facility] Hemoglobin [Mass/volume] in Bloodon 08-02-2024 Hemoglobin (Bld) [Mass/Vol] 14.1 g/dL 12.0-16.0 [facility] Laboratory - Hematology and Cell countson 08-02-2024 Immature granulocytes/100 WBC (Bld) 0.2 % 0.0-0.5 [facility] Leukocytes [#/volume] correc jocelynn for nucleated erythrocytes in Blood by Automated counon 08-02-2024 WBC corrected for nucl RBC Auto (Bld) [#/Vol] 9.0 10 3/uL 4.0-11.0 [facility] Lymphocytes Auto (Bld) [#/Vo l]on 08-02-2024 Lymphocytes (Bld) [#/Vol] 3.0 10 3/uL 1.2-3.8 [facility] Lymphocytes/100 WBC Auto (Bl d)on 08-02-2024 Lymphocytes/100 WBC (Bld) 33.4 % 20.5-60.0 [facility] MCH Auto (RBC) [Entitic mass ]on 08-02-2024 MCH (RBC) [Entitic mass] 26.7 pg 26.7-34.0 [facility] MCHC Auto (RBC) [Mass/Vol]on 08-02-2024 MCHC (RBC) [Mass/Vol] 32.3 g/dL 29.9-35.2 [facility] MCV Auto (RBC) [Entitic vol] on 08-02-2024 MCV (RBC) [Entitic vol] 82.8 fL 81.0-99.0 [facility] Monocytes Auto (Bld) [#/Vol] on 08-02-2024 Monocytes (Bld) [#/Vol] 0.5 10 3/uL 0.3-0.8 [facility] Monocytes/100 WBC Auto (Bld) on 08-02-2024 Monocytes/100 WBC (Bld) 5.4 % 1.7-12.0 [facility] Neutrophils Auto (Bld) [#/Vo l]on 08-02-2024 Neutrophils (Bld) [#/Vol] 5.3 10 3/uL 1.4-6.5 [facility] Neutrophils/100 WBC Auto (Bl d)on 08-02-2024 Neutrophils/100 WBC (Bld) 58.8 % 43.0-75.0 [facility] No Panel Informationon 08-02 Eosinophils # (Auto) 0.1 10 3/uL 0.0-0.7 [facility] Immature Granulocyte # (Auto) 0.02 10 3/uL 0.00-0.03 [facility] Platelet mean volume Auto (B ld) [Entitic vol]on 08-02-2024 Platelet mean volume (Bld) [Entitic vol] 8.9 fL Low 9.5-13.5 [facility] Platelets Auto (Bld) [#/Vol] on 08-02-2024 Platelets (Bld) [#/Vol] 369 10 3/uL 150-450 [facility] RBC Auto (Bld) [#/Vol]on RBC (Bld) [#/Vol] 5.28 10 6/uL 4.20-5.40 [facility] ALL CBC WITH AUTO DIFFon BASOPHILS ABSOLUTE AUTO 0.1 [facility] Basophils/100 WBC (Bld) 0.6 % 0.2 - 2.0 % [facility] Eosinophils/100 WBC (Bld) 1.8 % 0.9 - 7.0 % [facility] Erythrocyte distribution width (RBC) [Ratio] 13.2 % 11.0 - 15.0 % [facility] Hematocrit (Bld) [Volume fraction] 40.5 % 36.0 - 48.0 % [facility] Hemoglobin (Bld) [Mass/Vol] 13.1 g/dL 12.0 - 16.0 g/dL [facility] IMMATURE GRANULOCYTES ABS AUTO 0.02 [facility] Immature granulocytes/100 WBC (Bld) 0.2 % 0.0 - 0.5 % [facility] Interpretation and review of laboratory results Abnormal [facility] LYMPHOCYTES ABSOLUTE AUTO 2.7 [facility] Lymphocytes/100 WBC (Bld) 30.8 % 20.5 - 60.0 % [facility] MCH (RBC) [Entitic mass] 26.6 pg Low 26.7 - 34.0 pg [facility] MCHC (RBC) [Mass/Vol] 32.3 g/dL 29.9 - 35.2 g/dL [facility] MCV (RBC) [Entitic vol] 82.3 fL 81.0 - 99.0 fL [facility] MONOCYTES ABSOLUTE AUTO 0.6 [facility] Monocytes/100 WBC (Bld) 6.6 % 1.7 - 12.0 % [facility] NEUTROPHILS ABSOLUTE AUTO 5.3 [facility] Neutrophils/100 WBC (Bld) 60 % 43.0 - 75.0 % [facility] Platelet mean volume (Bld) [Entitic vol] 9.1 fL Low 9.5 - 13.5 fL [facility] EO # 0.2 [facility] PLT [address] [facility] RBC 4.92 [facility] WBC 8.8 [facility] Basophils Auto (Bld) [#/Vol] on 07-23-2024 Basophils (Bld) [#/Vol] 0.1 10 3/uL 0.0-0.1 [facility] Basophils/100 WBC Auto (Bld) on 07-23-2024 Basophils/100 WBC (Bld) 0.6 % 0.2-2.0 [facility] ECG 12-LEADon 07-23-2024 [place] [address] Electrocardiograph Report Signed Patient: KARLENE ALFARO MR#: [id number] : 1990 Acct:[id number] Age/Sex: 34 / F ADM Date: 07/23/24 Loc: [facility] Attending Dr: Brent Roland D.O. Ordering Physician: Brent Roland D.O. Date of Service: 07/23/24 Procedure(s): ECG 12 lead Accession Number(s): [id number] cc: [facility] Test Date: 2024-07-23 Pat Name: KARLENE ALFARO Department: Room: - Gender: Female Acidizer: : 1990 Requested By: BRENT ROLAND Order Number: [id number] Reading MD: CHUY SHABAZZ M.D. Measurements Intervals [place] Rate: 71 P: 33 [place]: 148 QRS: [...] Signed By: 07/23/24 1154 DD/ 1129 TD/TT: Channel Turner: [facility] Radiology, Demetri andrew MD - 07/23/2024 [place] [address] Electrocardiograph Report Signed Patient: KARLENE ALFARO MR#: [id number] : 1990 Acct:[id number] Age/Sex: 34 / F ADM Date: 07/23/24 Loc: PST Attending Dr: Brent Roland D.O. Ordering Physician: Brent Roland D.O. Date of Service: 07/23/24 Procedure(s): ECG 12 lead Accession Number(s): [id number] cc: [facility] Test Date: 2024-07-23 Pat Name: KARLENE ALFARO Department: Room: - Gender: Female Acidizer: : 1990 Requested By: BRENT ROLAND Order Number: [id number] Reading MD: CHUY SHABAZZ M.D. Measurements Intervals [place] Rate: 71 P: 33 [place]: 148 QRS: [...] Signed By: 07/23/24 1154 DD/ 1129 TD/TT: Channel Turner: [facility] Radiology Study observation (narrative) [facility] ECG 12-LEADOrdered By: SurgeonKidz logist Radiology on 07-23-2024 [facility] Work Phone: Eosinophils/100 WBC Auto (Bl d)on 07-23-2024 Eosinophils/100 WBC (Bld) 1.8 % 0.9-7.0 [facility] Erythrocyte distribution wid th Auto (RBC) [Ratio]on 07-23-2024 Erythrocyte distribution width (RBC) [Ratio] 13.2 % 11.0-15.0 [facility] Estimated glomerular filtrat ion rate (GFR) non- Americanon 07-23-2024 GFR/1.73 sq M.predicted among non-blacks MDRD (S/P/Bld) [Vol rate/Area] mL/min/{1.73_m2} >=60 mL/min/1.7 3m 2 [facility] Globulin Calc (S) [Mass/Vol] on 07-23-2024 Globulin (S) [Mass/Vol] 3.6 g/dL [facility] Hematocrit Auto (Bld) [Volum e fraction]on 07-23-2024 Hematocrit (Bld) [Volume fraction] 40.5 % 36.0-48.0 [facility] Hemoglobin [Mass/volume] in Bloodon 07-23-2024 Hemoglobin (Bld) [Mass/Vol] 13.1 g/dL 12.0-16.0 [facility] Laboratory - Chemistry and C hemistry - challengeon 07-23-2024 Albumin [Mass/Vol] 3.5 g/dL 3.4-5.0 [facility] ALP [Catalytic activity/Vol] 70 U/L 46-116 [facility] ALT [Catalytic activity/Vol] 37 U/L 14-59 [facility] AST [Catalytic activity/Vol] 15 U/L 15-37 [facility] Bilirubin [Mass/Vol] 0.3 mg/dL 0.2-1.0 [facility] Calcium [Mass/Vol] 8.6 mg/dL 8.5-10.1 [facility] Chloride [Moles/Vol] 105 mmol/L 98-107 [facility] CO2 [Moles/Vol] 26.9 mmol/L 21.0-32.0 [facility] Creatinine [Mass/Vol] 0.83 mg/dL 0.55-1.02 [facility] GFR/1.73 sq M.predicted MDRD (S/P/Bld) [Vol rate/Area] mL/min/{1.73_m2} >=60 mL/min/1.7 3m 2 [facility] Glucose [Mass/Vol] 88 mg/dL 74-106 [facility] Potassium [Moles/Vol] 4.3 mmol/L 3.5-5.1 [facility] Protein [Mass/Vol] 7.1 g/dL 6.4-8.2 [facility] Sodium [Moles/Vol] 138 mmol/L 136-145 [facility] Urea nitrogen [Mass/Vol] 14.0 mg/dL 7.0-18.0 [facility] Urea nitrogen/Creatinine [Mass ratio] 16.9 mg/mg [facility] Laboratory - Hematology and Cell countson 07-23-2024 Immature granulocytes/100 WBC (Bld) 0.2 % 0.0-0.5 [facility] Leukocytes [#/volume] correc jocelynn for nucleated erythrocytes in Blood by Automated counon 07-23-2024 WBC corrected for nucl RBC Auto (Bld) [#/Vol] 8.8 10 3/uL 4.0-11.0 [facility] Lymphocytes Auto (Bld) [#/Vo l]on 07-23-2024 Lymphocytes (Bld) [#/Vol] 2.7 10 3/uL 1.2-3.8 [facility] Lymphocytes/100 WBC Auto (Bl d)on 07-23-2024 Lymphocytes/100 WBC (Bld) 30.8 % 20.5-60.0 [facility] MCH Auto (RBC) [Entitic mass ]on 07-23-2024 MCH (RBC) [Entitic mass] 26.6 pg Low 26.7-34.0 [facility] MCHC Auto (RBC) [Mass/Vol]on 07-23-2024 MCHC (RBC) [Mass/Vol] 32.3 g/dL 29.9-35.2 [facility] MCV Auto (RBC) [Entitic vol] on 07-23-2024 MCV (RBC) [Entitic vol] 82.3 fL 81.0-99.0 [facility] Monocytes Auto (Bld) [#/Vol] on 07-23-2024 Monocytes (Bld) [#/Vol] 0.6 10 3/uL 0.3-0.8 [facility] Monocytes/100 WBC Auto (Bld) on 07-23-2024 Monocytes/100 WBC (Bld) 6.6 % 1.7-12.0 [facility] Neutrophils Auto (Bld) [#/Vo l]on 07-23-2024 Neutrophils (Bld) [#/Vol] 5.3 10 3/uL 1.4-6.5 [facility] Neutrophils/100 WBC Auto (Bl d)on 07-23-2024 Neutrophils/100 WBC (Bld) 60.0 % 43.0-75.0 [facility] No Panel Informationon 07-23 Eosinophils # (Auto) 0.2 10 3/uL 0.0-0.7 [facility] Immature Granulocyte # (Auto) 0.02 10 3/uL 0.00-0.03 [facility] Platelet mean volume Auto (B ld) [Entitic vol]on 07-23-2024 Platelet mean volume (Bld) [Entitic vol] 9.1 fL Low 9.5-13.5 [facility] Platelets Auto (Bld) [#/Vol] on 07-23-2024 Platelets (Bld) [#/Vol] 380 10 3/uL 150-450 [facility] RBC Auto (Bld) [#/Vol]on RBC (Bld) [#/Vol] 4.92 10 6/uL 4.20-5.40 [facility] Serum or plasma albumin/glob ulin mass ratioon 07-23-2024 Albumin/Globulin [Mass ratio] 1.0 {ratio} [facility] Serum or plasma anion gap de terminationon 07-23-2024 Anion gap [Moles/Vol] 10.4 mmol/L Fi [facility] RECURRENT VAGINITIS (HTRX)on 07-11-2024 ATOPOBIUM VAGINAE 30.718 Abnormal [facility] ATOPOBIUM VAGINAE Detected Abnormal [facility] BVAB 2,3 (BACTERIAL VAGINOSIS ASSOCIATED BACTERIA 2, 3); MOBILUNCUS SPP 0 [facility] BVAB 2,3 (BACTERIAL VAGINOSIS ASSOCIATED BACTERIA 2, 3); MOBILUNCUS SPP Not detected [facility] DARIA ALBICANS, PARAPSILOSIS, TROPICALIS 0 [facility] DARIA ALBICANS, PARAPSILOSIS, TROPICALIS Not detected [facility] DARIA GLABRATA 0 [facility] DARIA GLABRATA Not detected [facility] DARIA KRUSEI 0 [facility] DARIA KRUSEI Not detected [facility] CHLAMYDIA TRACHOMATIS 0 [facility] CHLAMYDIA TRACHOMATIS Not detected [facility] GARDNERELLA VAGINALIS 0 [facility] GARDNERELLA VAGINALIS Not detected [facility] Interpretation and review of laboratory results Abnormal [facility] MEGASPHAERA (TYPES 1, 2) 0 [facility] MEGASPHAERA (TYPES 1, 2) Not detected [facility] MYCOPLASMA GENITALIUM 0 [facility] MY[facility]LASMA GENITALIUM [facility] NEISSERIA GONORRHOEAE 0 [facility] NEISSERIA GONORRHOEAE Not detected N [facility] TRICHOMONAS VAGINALIS 0 [facility] TRICHOMONAS VAGINALIS Not detected N [facility] Urinalysis macro (dipstick) panel (U)on 07-10-2024 Bilirubin, UA Negative Negative - 4(70) +++ mg/dL [facility] Blood, UA Negative Negative - 50 Arnulfo/mcL [facility] Clarity, UA Clear [facility] Color, UA Yellow [facility] Glucose, UA Negative Negative - 1999(110) ++++ mg/dL [facility] Interpretation and review of laboratory results Normal [facility] Ketones, UA Negative Negative - 160(16) ++++ mg/dL [facility] Leukocytes, UA Negative Negative - 500+++ Corrina/mcL [facility] Nitrite, UA Negative Negative - Positive [facility] pH, UA 7 5 - 9 [facility] Protein, UA Negative Negative - 1999(20) ++++ mg/dL [facility] Spec Grav, UA 1.025 1 - 1.03 [facility] Urobilinogen, UA 0.2 0.2 - 12 mg/dL [facility] US PELVIS W/ TRANSVAGINALon 07-03-2024 [place] [address] Ultrasound Report Signed Patient: KARLENE ALFARO MR#: [id number] : 1990 Acct:[id number] Age/Sex: 34 / F ADM Date: 07/03/24 Loc: US Attending Dr: Brent Roland D.O. Ordering Physician: Brent Roland D.O. Date of Service: 07/03/24 Procedure(s): US pelvis w/ transvaginal Accession Number(s): [id number] cc: Suyra Hodges M.D.; Brent Roland D.O. [address] [address] Patient Name: KARLENE ALFARO MRN: [id number] date: 1990 Sex: F Assigned Patient Location: US Current Patient Location: US Accession/Order Number: [id number] Exam Date: 07/03/2024 09:28 Report Date: 07/03/2024 [...] Jovan Martin M.D.07/03/2024 9:30 AM Dictation Location: [place] [address] Electronically authenticated by: [id number] Y Date: 07/03/2024 09:30 Dictated By: Jovan Martin D.O. Signed By: 07/03/2433 DD/ 9 TD/TT: Channel Turner: [facility] Radiology, Radiologi MD lorrie - 07/03/2024 [place] [address] Ultrasound Report Signed Patient: KARLENE ALFARO MR#: [id number] : 1990 Acct:[id number] Age/Sex: 34 / F ADM Date: 07/03/24 Loc: US Attending Dr: Brent Roland D.O. Ordering Physician: Brent Roland D.O. Date of Service: 07/03/24 Procedure(s): US pelvis w/ transvaginal Accession Number(s): [id number] cc: Surya Hodges M.D.; Brent Roland D.O. [place] [address] Patient Name: KARLENE ALFARO MRN: [id number] date: 1990 Sex: F Assigned Patient Location: US Current Patient Location: US Accession/Order Number: [id number] Exam Date: 07/03/2024 09:28 Report Date: 07/03/2024 [...] Jovan Martin M.D.07/03/2024 9:30 AM Dictation Location: [place] [address] Electronically authenticated by: [id number] Y Date: 07/03/2024 09:30 Dictated By: Jovan Martin D.O. Signed By: 07/03/24 0933 DD/ TD/TT: Channel Turner: [facility] Radiology Study observation (narrative) [facility] US PELVIS W/ TRANSVAGINALOrd ered By: Radiologist Radiology on 07-03-2024 [facility] Work Phone: Basophils Auto (Bld) [#/Vol] on 09-07-2023 Basophils (Bld) [#/Vol] 0.0 10 3/uL 0.0-0.1 [facility] Basophils/100 WBC Auto (Bld) on 09-07-2023 Basophils/100 WBC (Bld) 0.5 % 0.2-2.0 [facility] Cholesterol in LDL Calc [Mas s/Vol]on 09-07-2023 Cholesterol in LDL [Mass/Vol] 149.0 mg/dL [facility] Comment on above: <100 mg/dl [id number] 0-129 mg/dl NEAR OR ABOVE [id number] mg/dl BORDERLINE [id number] mg/dl HIGH>190 mg/dl VERY HIGH Cholesterol in VLDL Calc [Ma ss/Vol]on 09-07-2023 Cholesterol in VLDL [Mass/Vol] 20.4 mg/dL [facility] Eosinophils/100 WBC Auto (Bl d)on 09-07-2023 Eosinophils/100 WBC (Bld) 1.6 % 0.9-7.0 [facility] Erythrocyte distribution wid th Auto (RBC) [Ratio]on 09-07-2023 Erythrocyte distribution width (RBC) [Ratio] 13.2 % 11.0-15.0 [facility] Estimated glomerular filtrat ion rate (GFR) non- Americanon 09-07-2023 GFR/1.73 sq M.predicted among non-blacks MDRD (S/P/Bld) [Vol rate/Area] mL/min/{1.73_m2} >=60 [facility] Globulin Calc (S) [Mass/Vol] on 09-07-2023 Globulin (S) [Mass/Vol] 3.8 g/dL [facility] Hematocrit Auto (Bld) [Volum e fraction]on 09-07-2023 Hematocrit (Bld) [Volume fraction] 41.8 % 36.0-48.0 [facility] Hemoglobin [Mass/volume] in Bloodon 09-07-2023 Hemoglobin (Bld) [Mass/Vol] 13.3 g/dL 12.0-16.0 [facility] Laboratory - Chemistry and C hemistry - challengeon 09-07-2023 Albumin [Mass/Vol] 3.9 g/dL 3.4-5.0 [facility] ALP [Catalytic activity/Vol] 70 U/L 46-116 [facility] ALT [Catalytic activity/Vol] 20 U/L 14-59 [facility] AST [Catalytic activity/Vol] 12 U/L Low 15-37 [facility] Bilirubin [Mass/Vol] 0.6 mg/dL 0.2-1.0 [facility] Calcium [Mass/Vol] 8.7 mg/dL 8.5-10.1 [facility] Chloride [Moles/Vol] 102 mmol/L 98-107 [facility] Cholesterol [Mass/Vol] 226 mg/dL High <=200 [facility] Cholesterol in HDL [Mass/Vol] 57 mg/dL 40-60 [facility] Comment on above: > or =60 mg/dl - LOW CARDIOVASCULAR RISK<40 mg/dl - HIGH CARDIOVASCULAR RISK CO2 [Moles/Vol] 27.2 mmol/L 21.0-32.0 [facility] Creatinine [Mass/Vol] 0.86 mg/dL 0.55-1.02 [facility] GFR/1.73 sq M.predicted MDRD (S/P/Bld) [Vol rate/Area] mL/min/{1.73_m2} >=60 [facility] Glucose [Mass/Vol] 89 mg/dL 74-106 [facility] Potassium [Moles/Vol] 4.0 mmol/L 3.5-5.1 [facility] Protein [Mass/Vol] 7.7 g/dL 6.4-8.2 [facility] Sodium [Moles/Vol] 139 mmol/L 136-145 [facility] Triglyceride [Mass/Vol] 102 mg/dL <=150 [facility] Urea nitrogen [Mass/Vol] 9.0 mg/dL 7.0-18.0 [facility] Urea nitrogen/Creatinine [Mass ratio] 10.5 mg/mg [facility] Laboratory - Hematology and Cell countson 09-07-2023 Immature granulocytes/100 WBC (Bld) 0.2 % 0.0-0.5 [facility] Leukocytes [#/volume] correc jocelynn for nucleated erythrocytes in Blood by Automated counon 09-07-2023 WBC corrected for nucl RBC Auto (Bld) [#/Vol] 8.0 10 3/uL 4.0-11.0 [facility] Lymphocytes Auto (Bld) [#/Vo l]on 09-07-2023 Lymphocytes (Bld) [#/Vol] 2.4 10 3/uL 1.2-3.8 [facility] Lymphocytes/100 WBC Auto (Bl d)on 09-07-2023 Lymphocytes/100 WBC (Bld) 29.7 % 20.5-60.0 [facility] MCH Auto (RBC) [Entitic mass ]on 09-07-2023 MCH (RBC) [Entitic mass] 26.3 pg Low 26.7-34.0 [facility] MCHC Auto (RBC) [Mass/Vol]on 09-07-2023 MCHC (RBC) [Mass/Vol] 31.8 g/dL 29.9-35.2 [facility] MCV Auto (RBC) [Entitic vol] on 09-07-2023 MCV (RBC) [Entitic vol] 82.6 fL 81.0-99.0 [facility] Monocytes Auto (Bld) [#/Vol] on 09-07-2023 Monocytes (Bld) [#/Vol] 0.4 10 3/uL 0.3-0.8 [facility] Monocytes/100 WBC Auto (Bld) on 09-07-2023 Monocytes/100 WBC (Bld) 5.5 % 1.7-12.0 [facility] Neutrophils Auto (Bld) [#/Vo l]on 09-07-2023 Neutrophils (Bld) [#/Vol] 5.0 10 3/uL 1.4-6.5 [facility] Neutrophils/100 WBC Auto (Bl d)on 09-07-2023 Neutrophils/100 WBC (Bld) 62.5 % 43.0-75.0 [facility] No Panel Informationon 09-06 Eosinophils # (Auto) 0.1 10 3/uL 0.0-0.7 [facility] Immature Granulocyte # (Auto) 0.02 10 3/uL 0.00-0.03 [facility] Platelet mean volume Auto (B ld) [Entitic vol]on 09-07-2023 Platelet mean volume (Bld) [Entitic vol] 9.4 fL Low 9.5-13.5 [facility] Platelets Auto (Bld) [#/Vol] on 09-07-2023 Platelets (Bld) [#/Vol] 381 10 3/uL 150-450 [facility] RBC Auto (Bld) [#/Vol]on RBC (Bld) [#/Vol] 5.06 10 6/uL 4.20-5.40 [facility] Serum or plasma albumin/glob ulin mass ratioon 09-07-2023 Albumin/Globulin [Mass ratio] 1.0 {ratio} [facility] Serum or plasma anion gap de terminationon 09-07-2023 Anion gap [Moles/Vol] 13.8 mmol/L [facility] Serum or plasma total choles terol/high density lipoprotein (HDL) cholesterol mass linwood 09-07-2023 Cholesterol.total/Chol esterol in HDL [Mass ratio] 4.0 {ratio} [facility] Comment on above: 3.3 - 4.4 LOW RISK4. 4 - 7.1 AVERAGE RISK7.1 - 11.0 MODERATE RISK>11.0 HIGH RISK Basophils Auto (Bld) [#/Vol] on 05-02-2023 Basophils (Bld) [#/Vol] 0.1 10 3/uL 0.0-0.1 [facility] Basophils/100 WBC Auto (Bld) on 05-02-2023 Basophils/100 WBC (Bld) 0.4 % 0.2-2.0 [facility] Eosinophils/100 WBC Auto (Bl d)on 05-02-2023 Eosinophils/100 WBC (Bld) 0.1 % 0.9-7.0 [facility] Erythrocyte distribution wid th Auto (RBC) [Ratio]on 05-02-2023 Erythrocyte distribution width (RBC) [Ratio] 13.1 % 11.0-15.0 [facility] Estimated glomerular filtrat ion rate (GFR) non- Americanon 05-02-2023 GFR/1.73 sq M.predicted among non-blacks MDRD (S/P/Bld) [Vol rate/Area] mL/min/{1.73_m2} >=60 [facility] Hematocrit Auto (Bld) [Volum e fraction]on 05-02-2023 Hematocrit (Bld) [Volume fraction] 41.6 % 36.0-48.0 [facility] Hemoglobin [Mass/volume] in Bloodon 05-02-2023 Hemoglobin (Bld) [Mass/Vol] 13.6 g/dL 12.0-16.0 [facility] Laboratory - Chemistry and C hemistry - challengeon 05-02-2023 Calcium [Mass/Vol] 8.7 mg/dL 8.5-10.1 [facility] Chloride [Moles/Vol] 101 mmol/L 98-107 [facility] CO2 [Moles/Vol] 24.8 mmol/L 21.0-32.0 [facility] Creatinine [Mass/Vol] 0.89 mg/dL 0.55-1.02 [facility] GFR/1.73 sq M.predicted MDRD (S/P/Bld) [Vol rate/Area] mL/min/{1.73_m2} >=60 [facility] Glucose [Mass/Vol] 112 mg/dL 74-106 [facility] Potassium [Moles/Vol] 4.0 mmol/L 3.5-5.1 [facility] Sodium [Moles/Vol] 137 mmol/L 136-145 [facility] Urea nitrogen [Mass/Vol] 5.0 mg/dL 7.0-18.0 [facility] Urea nitrogen/Creatinine [Mass ratio] 5.6 mg/mg [facility] Laboratory - Hematology and Cell countson 05-02-2023 Immature granulocytes/100 WBC (Bld) 0.3 % 0.0-0.5 [facility] Laboratory - Microbiology an d Antimicrobial susceptibilityon 05-02-2023 S. pyogenes Ag Ql (Unsp spec) Positive [facility] SARS-CoV-2 (COVID-19) RNA LEO+probe Ql (Unsp spec) Negative NEGATIVE [facility] Comment on above: This test has not [...] diagnosis of Covid-19 under section 564(b)(1) of [facility] [place] 360bbb-3(b)(1), unless the declaration isterminated or authorization is revoked sooner. Leukocytes [#/volume] correc jocelynn for nucleated erythrocytes in Blood by Automated counon 05-02-2023 WBC corrected for nucl RBC Auto (Bld) [#/Vol] 12.4 10 3/uL 4.0-11.0 [facility] Lymphocytes Auto (Bld) [#/Vo l]on 05-02-2023 Lymphocytes (Bld) [#/Vol] 1.0 10 3/uL 1.2-3.8 [facility] Lymphocytes/100 WBC Auto (Bl d)on 05-02-2023 Lymphocytes/100 WBC (Bld) 7.9 % 20.5-60.0 [facility] MCH Auto (RBC) [Entitic mass ]on 05-02-2023 MCH (RBC) [Entitic mass] 27.9 pg 26.7-34.0 [facility] MCHC Auto (RBC) [Mass/Vol]on 05-02-2023 MCHC (RBC) [Mass/Vol] 32.7 g/dL 29.9-35.2 [facility] MCV Auto (RBC) [Entitic vol] on 05-02-2023 MCV (RBC) [Entitic vol] 85.2 fL 81.0-99.0 [facility] Monocytes Auto (Bld) [#/Vol] on 05-02-2023 Monocytes (Bld) [#/Vol] 0.8 10 3/uL 0.3-0.8 [facility] Monocytes/100 WBC Auto (Bld) on 05-02-2023 Monocytes/100 WBC (Bld) 6.3 % 1.7-12.0 [facility] Neutrophils Auto (Bld) [#/Vo l]on 05-02-2023 Neutrophils (Bld) [#/Vol] 10.5 10 3/uL 1.4-6.5 [facility] Neutrophils/100 WBC Auto (Bl d)on 05-02-2023 Neutrophils/100 WBC (Bld) 85.0 % 43.0-75.0 [facility] No Panel Informationon 05-02 Bedside Influenza Type A Antigen Negative [facility] Comment on above: Negative for Flu A p rotein antigen. Infection due to Flu Acannot be ruled out. Flu A antigen in the sample may bebelow the detection limit of the test. Bedside Influenza Type B Antigen Negative [facility] Comment on above: Negative for Flu B p rotein antigen. Infection due to Flu Bcannot be ruled out. Flu B antigen in the sample may bebelow the detection limit of the test. Eosinophils # (Auto) 0.0 10 3/uL 0.0-0.7 [facility] Immature Granulocyte # (Auto) 0.04 10 3/uL 0.00-0.03 [facility] Monoscreen Negative NEGATIVE [facility] Platelet mean volume Auto (B ld) [Entitic vol]on 05-02-2023 Platelet mean volume (Bld) [Entitic vol] 8.9 fL 9.5-13.5 [facility] Platelets Auto (Bld) [#/Vol] on 05-02-2023 Platelets (Bld) [#/Vol] 369 10 3/uL 150-450 [facility] RBC Auto (Bld) [#/Vol]on RBC (Bld) [#/Vol] 4.88 10 6/uL 4.20-5.40 [facility] Serum or plasma anion gap de terminationon 05-02-2023 Anion gap [Moles/Vol] 15.2 mmol/L [facility] Cervical or vaginal smear or scraping studyOrdered By: Kenyatta Salazar on 12-28-2022 [facility] Cholesterol [Mass/volume] in Serum or PlasmaOrdered By: Baljinder Polanco on 12-01-2022 Cholesterol [Mass/Vol] 214 mg/dL 140-200 [facility] Comment on above: Chol less than 200 m g/dl low riskChol 201-239 mg/dl borderline riskChol 240 mg/dl and greater high risk Cholesterol in LDL Calc [Mas s/Vol]Ordered By: Baljinder Polanco on 12-01-2022 Cholesterol in LDL [Mass/Vol] 132 mg/dL 0-100 [facility] Comment on above: LDL ATP III CLASSIFI CATIONLDL less than 100 mg/dL OptimalLDL 100-129 mg/dL Near or above optimalLDL 130-159 mg/dL Borderline highLDL 160-189 mg/dL HighLDL greater than 189 mg/dL Very high Cholesterol in VLDL Calc [Ma ss/Vol]Ordered By: Baljinder Polanco on 12-01-2022 Cholesterol in VLDL [Mass/Vol] 27 mg/dL [facility] Glucose mean value [Mass/vol ume] in Blood Estimated from glycated hemoglobinOrdered By: Baljinder Polanco on 12-01-2022 Average glucose Estimated from glycated hemoglobin (Bld) [Mass/Vol] 120 mg/dL [facility] Hemoglobin A1c percentageOrd ered By: Baljinder Polanco on 12-01-2022 HbA1c (Bld) [Mass fraction] 5.8 % 4.3-5.6 [facility] Comment on above: Increased risk for d iabetes: 5.7 - 6.4diabetes: >6.4glycemic control for adults with diabetes: <7.0 Serum or plasma high density lipoprotein (HDL) cholesterol measurementOrdered By: Baljinder Polanco on 12-01-2022 Cholesterol in HDL [Mass/Vol] 54 mg/dL 23-92 [facility] Comment on above: HDL CHOL ATP-III CLA SSIFICATION Cardiovascular RiskHDL > or equal to 60 mg/dL LOWHDL < 40 mg/dL HIGH Serum or plasma total choles terol/high density lipoprotein (HDL) cholesterol mass ratOrdered By: Baljinder Polanco on 12-01-2022 Cholesterol.total/Chol esterol in HDL [Mass ratio] 4.0 {ratio} <5.0 [facility] Triglyceride [Mass/volume] i n Serum or PlasmaOrdered By: Baljinder Polanco on 12-01-2022 Triglyceride [Mass/Vol] 139 mg/dL 0-149 [facility] Comment on above: TRIG ATP III CLASSIF [...] <= 0.01 ng/mL [Mass/Vol] 27.1 pg/mL 0.0-15.0 [facility] Activated partial thrombopla stin time (aPTT) in platelet poor plasma by coagulation aOrdered By: Marcio Steven on 11-30-2022 aPTT Coag (PPP) [Time] 32.4 s 25.1-36.5 [facility] Comment on above: A hematocrit value g reater than 55% may lead to inaccurate results in coagulation testing. Patients having hematocrit values >55% require a special collection tube for coagulation studies. Please contact the laboratory at [phone] for redraw instructions. Alanine aminotransferase [En zymatic activity/volume] in Serum or PlasmaOrdered By: Marcio Steven on 11-30-2022 ALT [Catalytic activity/Vol] 16 U/L 7-52 [facility] Albumin [Mass/volume] in Ser um or Plasma by Bromocresol green (BCG) dye binding methoOrdered By: Marcio Steven on 11-30-2022 Albumin BCG dye [Mass/Vol] 4.4 g/dL 3.5-5.7 [facility] Alkaline phosphatase [Enzyma tic activity/volume] in Serum or PlasmaOrdered By: Marcio Steven on 11-30-2022 ALP [Catalytic activity/Vol] 73 U/L 34-104 [facility] Aspartate aminotransferase [ Enzymatic activity/volume] in Serum or PlasmaOrdered By: Marcio Steven on 11-30-2022 AST [Catalytic activity/Vol] 11 U/L 13-39 [facility] Basic Metabolic Panelon 11-12 Calcium [Mass/Vol] 9.6370465 mg/dL Normal 8.6-10 .3 mg/dL [facility] [email or web address] Other CO2 [Moles/Vol] 23.87041782 mmol/L Normal 21.0-3 1.0 mmol/L [employer] Other Creatinine [Mass/Vol] 0.60089698 mg/dL Normal 0. 60-1.20 mg/dL [facility] [email or web address] Other GFR/1.73 sq M.predicted MDRD (S/P/Bld) [Vol rate/Area] mL/min/{1.73_m2} [facility] [email or web address] Other Potassium [Moles/Vol] 4.55431073 mmol/L Normal 3 .5-5.1 mmol/L [facility] [email or web address] Other Basic Metabolic PanelOrdered By: Marcio Steven on 11-30-2022 Chloride [Moles/Vol] 104 mmol/L 98-107 [facility] Glucose [Mass/Vol] 77 mg/dL 70-100 [facility] Comment on above: ADA recommended refe rence rangeRandom Glucose Reference Range is dependent on time and content of last meal. Glucose of more than 200 mg/dL in a nonstressed, ambulatory subject supports the diagnosis of Diabetes Mellitus. Sodium [Moles/Vol] 138 mmol/L 136-145 [facility] Urea nitrogen [Mass/Vol] 9 mg/dL 7-25 [facility] Basophils Auto (Bld) [#/Vol] Ordered By: Marcio Steven on 11-30-2022 Basophils (Bld) [#/Vol] 0.1 10*3/uL 0.0-0.2 [facility] Basophils/100 WBC Auto (Bld) Ordered By: Marcio Steven on 11-30-2022 Basophils/100 WBC (Bld) 0.8 % . [facility] Bilirubin Test strip Ql (U)O rdered By: Marcio Steven on 11-30-2022 Bilirubin Ql (U) Negative Negative [facility] Bilirubin[employer]direct [Mass/volum e] in Serum or PlasmaOrdered By: Marcio Steven on 11-30-2022 Bilirubin.direct [Mass/Vol] 0.00 mg/dL 0.03-0.18 [facility] Comment on above: If the DBIL is less than 0.1, IBIL is not able to becalculated. Bilirubin.total [Mass/volume ] in Serum or PlasmaOrdered By: Marcio Steven on 11-30-2022 Bilirubin [Mass/Vol] 0.9 mg/dL 0.3-1.0 [facility] COVID-19 Detected/Not Detect edOrdered By: Marcio Steven on 11-30-2022 SARS-CoV-2 (COVID-19) RNA LEO+non-probe Ql (Nph) Not detected Not Detecte [facility] Comment on above: This is a duplicate RP2.1 COVID (PCR) result to be used for statistical tracking purpose only. Calcium [Mass/volume] in Ser um or PlasmaOrdered By: Marcio Steven on 11-30-2022 Calcium [Mass/Vol] 9.5 mg/dL 8.6-10.3 [facility] Carbon dioxide, total [Moles /volume] in Serum or PlasmaOrdered By: Marcio Steven on 11-30-2022 CO2 [Moles/Vol] 23.9 mmol/L 21.0-31.0 [facility] Color Auto (U)Ordered By: Baljeet Steven on 11-30-2022 Color (U) Yellow Yellow [facility] Complete Blood Count Auto Di ffon 11-30-2022 Basophils (Bld) [#/Vol] 0.142654925 10*3/uL Normal 0.0-0.2 10*3/uL [employer] Other Basophils/100 WBC (Bld) 0.800 % . % [employer] Other Eosinophils (Bld) [#/Vol] 0.094758763 10*3/uL Normal 0.0-0.45 10*3/uL [employer] Other Eosinophils/100 WBC (Bld) 0.900 % . % [employer] Other Erythrocyte distribution width (RBC) [Ratio] 14.300 % Normal 11.9-15.3 % [employer] Other Hematocrit (Bld) [Volume fraction] 41.000 % Normal 34.0-46.4 % [employer] Other Hemoglobin (Bld) [Mass/Vol] 13.816756 g/dL Normal 11.8-15.4 g/dL [employer] Other Lymphocytes (Bld) [#/Vol] 2.250852448 10*3/uL Normal 1.00-4.8 10*3/uL [employer] Other Lymphocytes/100 WBC (Bld) 32.300 % . % [employer] Other MCH (RBC) [Entitic mass] 27.0000 pg Normal 24.7-34.3 pg [employer] Other MCV (RBC) [Entitic vol] 81.0000 fL Normal 80-100 fL [employer] Other Monocytes (Bld) [#/Vol] 0.710025810 10*3/uL Normal 0.0-0.8 10*3/uL [employer] Other Monocytes/100 WBC (Bld) 6.800 % . % [employer] Other Neutrophils (Bld) [#/Vol] 4.734978745 10*3/uL Normal 1.8-7.7 10*3/uL [employer] Other Neutrophils/100 WBC (Bld) 59.200 % . % [employer] Other Platelet mean volume (Bld) [Entitic vol] 7.2000 fL Normal 6.3-10.7 fL [employer] Other WBC (Bld) [#/Vol] 8.564837061 10*3/uL Normal 3.8 -11.6 10*3/uL [employer] Other Complete Blood Count Auto Diff 8.2 10*3/uL Normal 3.8-11.6 10*3/uL [employer] Other Complete Blood Count Auto Diff 33.3 g/dL Normal 32.0-35.0 g/dL [employer] Other Complete Blood Count Auto Diff 0.2 /100{WBC} Normal 0-0.5 /100{WBC} [employer] Other Complete Blood Count Auto Di ffOrdered By: Marcio Steven on 11-30-2022 Platelets (Bld) [#/Vol] 368 10*3/uL 150-450 [facility] RBC (Bld) [#/Vol] 5.06 10*6/uL 3.60-5.00 [facility] Creatine kinase [Enzymatic a ctivity/volume] in Serum or PlasmaOrdered By: Marcio Steven on 11-30-2022 CK [Catalytic activity/Vol] 18 U/L 30-223 [facility] Creatinine [Mass/volume] in Serum or PlasmaOrdered By: Marcio Steven on 11-30-2022 Creatinine [Mass/Vol] 0.83 mg/dL 0.60-1.20 [facility] Eosinophils Auto (Bld) [#/Vo l]Ordered By: Marcio Steven on 11-30-2022 Eosinophils (Bld) [#/Vol] 0.1 10*3/uL 0.0-0.45 [facility] Eosinophils/100 WBC Auto (Bl d)Ordered By: Marcio Steven on 11-30-2022 Eosinophils/100 WBC (Bld) 0.9 % . [facility] Erythrocyte distribution wid th Auto (RBC) [Ratio]Ordered By: Marcio Steven on 11-30-2022 Erythrocyte distribution width (RBC) [Ratio] 14.3 % 11.9-15.3 [facility] Fibrin D-dimer [Presence] in Platelet poor plasma by Latex agglutinationOrdered By: Marcio Steven on 11-30-2022 Fibrin D-dimer LA Ql (PPP) < 200 ng/mL 0-243 [facility] Comment on above: The reference range for [...] coagulation studies. Please contact the laboratory at [phone] for redraw instructions. Free T4 (Free Thyroxine)on 0 11-30-2022 Free T4 [Mass/Vol] 1.48197263 ng/dL High 0.61- 1.12 ng/dL [employer] Other Globulin Calc (S) [Mass/Vol] Ordered By: Marcio Steven on 11-30-2022 Globulin (S) [Mass/Vol] 3.2 g/dL [facility] Glucose Glucometer (BldC) [M ass/Vol]Ordered By: Baljinder Polanco on 11-30-2022 Glucose [Mass/Vol] 100 mg/dL [facility] Comment on above: Random Glucose Refer ence Range is dependent on time and content of last meal. Glucose of more than 200 mg/dL in a nonstressed, ambulatory subject supports the diagnosis of Diabetes Mellitus. Hematocrit Auto (Bld) [Volum e fraction]Ordered By: Marcio Steven on 11-30-2022 Hematocrit (Bld) [Volume fraction] 41.0 % 34.0-46.4 [facility] Hemoglobin [Mass/volume] in BloodOrdered By: Marcio Steven on 11-30-2022 Hemoglobin (Bld) [Mass/Vol] 13.7 g/dL 11.8-15.4 [facility] INR in Platelet poor plasma by Coagulation assayOrdered By: Marcio Steven on 11-30-2022 INR Coag (PPP) [Relative time] 1.1 {INR} [facility] Comment on above: INR Therapeutic Rang e [...] on 11-30-2022 Ketones (U) [Mass/Vol] Trace Negative [facility] Leukocytes [#/volume] correc jocelynn for nucleated erythrocytes in Blood by Automated counOrdered By: Marcio Steven on 11-30-2022 WBC corrected for nucl RBC Auto (Bld) [#/Vol] 8.2 10*3/uL 3.8-11.6 [facility] Lymphocytes Auto (Bld) [#/Vo l]Ordered By: Marcio Steven on 11-30-2022 Lymphocytes (Bld) [#/Vol] 2.7 10*3/uL 1.00-4.8 [facility] Lymphocytes/100 WBC Auto (Bl d)Ordered By: Marcio Steven on 11-30-2022 Lymphocytes/100 WBC (Bld) 32.3 % . [facility] MCH Auto (RBC) [Entitic mass ]Ordered By: Marcio Steven on 11-30-2022 MCH (RBC) [Entitic mass] 27.0 pg 24.7-34.3 [facility] MCHC Auto (RBC) [Mass/Vol]Or dered By: Marcio Steven on 11-30-2022 MCHC (RBC) [Mass/Vol] 33.3 g/dL 32.0-35.0 [facility] MCV Auto (RBC) [Entitic vol] Ordered By: Marcio Steven on 11-30-2022 MCV (RBC) [Entitic vol] 81.0 fL 80-100 [facility] Magnesium [Mass/volume] in S abdifatah or PlasmaOrdered By: Marcio Steven on 11-30-2022 Magnesium [Mass/Vol] 1.9 mg/dL 1.9-2.7 [facility] Monocyte distribution width [Entitic volume] in Blood by AutomatedOrdered By: Marcio Steven on 11-30-2022 Monocyte distribution width Auto (Bld) [Entitic vol] 19.22 % 0.00-20.00 [facility] Monocytes Auto (Bld) [#/Vol] Ordered By: Marcio Steven on 11-30-2022 Monocytes (Bld) [#/Vol] 0.6 10*3/uL 0.0-0.8 [facility] Monocytes/100 WBC Auto (Bld) Ordered By: Marcio Steven on 11-30-2022 Monocytes/100 WBC (Bld) 6.8 % . [facility] Natriuretic peptide B [Mass/ Vol]Ordered By: Marcio Steven on 11-30-2022 Natriuretic peptide B (Bld) [Mass/Vol] 13.0 pg/mL 5-100 [facility] Neutrophils Auto (Bld) [#/Vo l]Ordered By: Marcio Steven on 11-30-2022 Neutrophils (Bld) [#/Vol] 4.9 10*3/uL 1.8-7.7 [facility] Neutrophils/100 WBC Auto (Bl d)Ordered By: Marcio Steven on 11-30-2022 Neutrophils/100 WBC (Bld) 59.2 % . [facility] Nitrite Test strip Ql (U)Ord ered By: Marcio Steven on 11-30-2022 Nitrite Ql (U) Negative Negative [facility] No Panel InformationOrdered By: Marcio Steven on 11-30-2022 Estimated GFR (CKD-EPI) > 60.0 mL/Min [facility] Creatinine Clearance (Chem 114.08 [facility] Nucleated erythrocytes [Pres ence] in Blood by Automated countOrdered By: Marcio Steven on 11-30-2022 Nucleated RBC Auto Ql (Bld) 0.2 /100{WBC} 0-0.5 [facility] Platelet mean volume Auto (B ld) [Entitic vol]Ordered By: Marcio Steven on 11-30-2022 Platelet mean volume (Bld) [Entitic vol] 7.2 fL 6.3-10.7 [facility] Potassium [Moles/volume] in Serum or PlasmaOrdered By: Marcio Steven on 11-30-2022 Potassium [Moles/Vol] 4.1 mmol/L 3.5-5.1 [facility] Protein Auto test strip (U) [Mass/Vol]Ordered By: Marcio Steven on 11-30-2022 Protein (U) [Mass/Vol] Negative Negative [facility] Protein [Mass/volume] in Ser um or PlasmaOrdered By: Marcio Steven on 11-30-2022 Protein [Mass/Vol] 7.6 g/dL 6.4-8.9 [facility] Prothrombin time (PT)Ordered By: Marcio Steven on 11-30-2022 PT Coag (PPP) [Time] 12.5 s 9.0-12.9 [facility] Comment on above: A hematocrit value g reater than 55% may lead to inaccurate results in coagulation testing. Patients having hematocrit values >55% require a special collection tube for coagulation studies. Please contact the laboratory at [phone] for redraw instructions. Respiratory pathogens DNA an d RNA panel - Nasopharynx by LEO with non-probe detectionOrdered By: Marcio Steven on 11-30-2022 Respiratory pathogens DNA and RNA panel LEO+non-probe (Nph) [facility] Serum or plasma albumin/glob ulin mass ratioOrdered By: Marcio Steven on 11-30-2022 Albumin/Globulin [Mass ratio] 1.4 {ratio} [facility] Serum or plasma anion gap de terminationOrdered By: Marcio Steven on 11-30-2022 Anion gap [Moles/Vol] 14.2 mmol/L 6.0-15.0 [facility] Serum or plasma non-glucuron idated bilirubin measurement (mass/volume)Ordered By: Marcio Steven on 11-30-2022 Bilirubin.indirect [Mass/Vol] 0.9 mg/dL [facility] Specific gravity Auto test s trip (U) [Rel density]Ordered By: Marcio Steven on 11-30-2022 Specific gravity (U) [Rel density] 1.013 1.001-1.03 0 [facility] Thyroid Stimulating Hormoneo n 11-30-2022 TSH Qn 0.42607579235 m[IU]/L Low 0.45-5 .33 u[iU]/mL [employer] Other Thyrotropin [Units/volume] i n Serum or PlasmaOrdered By: Marcio Steven on 11-30-2022 TSH Qn 0.03 m[IU]/L 0.45-5.33 [facility] Thyroxine (T4) free [Mass/vo lume] in Serum or PlasmaOrdered By: Marcio Steven on 11-30-2022 Free T4 [Mass/Vol] 1.56 ng/dL 0.61-1.12 [facility] Triiodothyronine (T3) Free [ Mass/volume] in Serum or PlasmaOrdered By: Marcio Steven on 11-30-2022 Free T3 [Mass/Vol] 3.89 pg/mL 2.50-3.90 [facility] Urine clarity by refractomet ry automatedOrdered By: Marcio Steven on 11-30-2022 Clarity Refractometry automated (U) Clear Clear [facility] Urine glucose measurement by automated test strip (mass/volume)Ordered By: Marcio Steven on 11-30-2022 Glucose Auto test strip (U) [Mass/Vol] Normal mg/dL Normal [facility] Urine hemoglobin detection b y automated test stripOrdered By: Marcio Steven on 11-30-2022 Hemoglobin Auto test strip Ql (U) Negative Negative [facility] Urine leukocyte esterase det ection by automated test stripOrdered By: Marcio Steven on 11-30-2022 Leukocyte esterase Auto test strip Ql (U) Negative Negative [facility] Urobilinogen Auto test strip (U) [Mass/Vol]Ordered By: Marcio Steven on 11-30-2022 Urobilinogen (U) [Mass/Vol] Normal mg/dL Normal [facility] WBC Auto (Bld) [#/Vol]Ordere d By: Marcio Steven on 11-30-2022 WBC (Bld) [#/Vol] 8.2 10*3/uL 3.8-11.6 [facility] pH Auto test strip (U)Ordere d By: Marcio Steven on 11-30-2022 pH (U) [pH] 5.0-9.0 [facility] CORTISOL FREE, SERUMon 06-17 Cortisol, Free Dialysis, LCMS 0.649 ug/dL Normal [facility] Comment on above: Result Comment: Thes e tests were developed and their performance characteristics determined by [employer]. They have not been cleared or approved by the Food and Drug Administration. Reference Range: 8 AM 0.10 - 1.20 4 PM 0.042 - 0.872 Performed By: #### R [email or web address] #### [facility] [address] [place] [address] Dr. Dimple Parsons CBC AUTO DIFFon 06-16-2022 BASO # 0.1 103/ul Normal 0.0-0.1 [facility] Comment on above: Performed By: #### R [email or web address] #### [facility] [address] [place] [address] Dr. Dimple Parsons Basophils/100 WBC (Bld) 0.6 % Normal 0.2-2.0 [facility] Comment on above: Performed By: #### R [email or web address] #### [facility] [address] [place] [address] Dr. Dimple Parsons EO # 0.4 103/ul Normal 0.0-0.7 [facility] Comment on above: Performed By: #### R [id number] #### [facility] [address] [place] [address] Dr. Dimple Parsons Eosinophils/100 WBC (Bld) 4.0 % Normal 0.9-7.0 [facility] Comment on above: Performed By: #### R [id number] #### [facility] [address] [place] [address] Dr. Dimple Parsons Erythrocyte distribution width (RBC) [Ratio] 13.8 % Normal 11.0-15.0 [facility] Comment on above: Performed By: #### R [id number] #### [facility] [address] [place] [address] Dr. Dimple Parsons Hematocrit (Bld) [Volume fraction] 39.8 % Normal 36.0-48.0 [facility] Comment on above: Performed By: #### R [id number] #### [facility] [address] [place] [address] Dr. Dimple Parsons Hemoglobin (Bld) [Mass/Vol] 12.9 g/dL Normal 12.0-16.0 [facility] Comment on above: Performed By: #### R [id number] #### [facility] [address] [place] [address] Dr. Dimple Parsons IG # 0.02 10e3/ul Normal 0.00-0.03 [facility] Comment on above: Performed By: #### R [id number] #### [facility] [address] [place] [address] Dr. Dimple Parsons IG % 0.2 % Normal 0.0-0.5 [facility] Comment on above: Performed By: #### R [id number] #### [facility] [address] [place] [address] Dr. Dimple Parsons LYMPH # 3.1 103/ul Normal 1.2-3.8 [facility] Comment on above: Performed By: #### R [id number] #### [facility] [address] [place] [address] Dr. Dimple Parsons Lymphocytes/100 WBC (Bld) 33.5 % Normal 20.5-60.0 [facility] Comment on above: Performed By: #### R [id number] #### [facility] [address] [place] [address] Dr. Dimple Parsons MANUAL DIFF REQ NO Normal [facility] Comment on above: Performed By: #### R [id number] #### [facility] [address] [place] [address] Dr. Dimple Parsons MCH (RBC) [Entitic mass] 26.1 pg Critically low 26.7-34.0 [facility] Comment on above: Performed By: #### R [email or web address] #### [facility] [address] [place] [address] Dr. Dimple Parsons MCHC (RBC) [Mass/Vol] 32.4 g/dL Normal 29.9-35.2 [facility] Comment on above: Performed By: #### R [id number] #### [facility] [address] [place] [address] Dr. Dimple Parsons MCV (RBC) [Entitic vol] 80.4 fL Critically low 81.0-99.0 [facility] Comment on above: Performed By: #### R [id number] #### [facility] [address] [place] [address] Dr. Dimple Parsons MONO # 0.5 103/ul Normal 0.3-0.8 [facility] Comment on above: Performed By: #### R [id number] #### [facility] [address] [place] [address] Dr. Dimple Parsons Monocytes/100 WBC (Bld) 5.2 % Normal 1.7-12.0 [facility] Comment on above: Performed By: #### R [id number] #### [facility] [address] [place] [address] Dr. Dimple Parsons NEUT # 5.2 103/ul Normal 1.4-6.5 [facility] Comment on above: Performed By: #### R [id number] #### [facility] [address] [place] [address] Dr. Dimple Parsons Neutrophils/100 WBC (Bld) 56.5 % Normal 43.0-75.0 [facility] Comment on above: Performed By: #### R [id number] #### [facility] [address] [place] [address] Dr. Dimple Parsons Platelet mean volume (Bld) [Entitic vol] 8.7 fL Critically low 9.5-13.5 [facility] Comment on above: Performed By: #### R [email or web address] #### [facility] [address] [place] [address] Dr. Dimple Parsons PLT 376 103/ul Normal 150-450 [facility] Comment on above: Performed By: #### R [id number] #### [facility] [address] [place] [address] Dr. Dimple Parsons RBC 4.95 106/ul Normal 4.20-5.40 [facility] Comment on above: Performed By: #### R [email or web address] #### [facility] [address] [place] [address] Dr. Dimple Parsons WBC 9.3 103/ul Normal 4.0-11.0 [facility] Comment on above: Performed By: #### R [email or web address] #### [facility] [address] [address] [address] Dimple Parsons TESTOSTERONE, FREE,DIRECT, T OTALon 06-10-2022 Free Testosterone(Direct) 1.6 pg/mL Normal 0.0-4.2 [facility] Comment on above: Result Comment: Perf ormed at: BN Performed By: #### C BC #### [facility] [address] [place] [address] Dr. Dimple Parsons Testosterone [Mass/Vol] 22 ng/dL Normal 8-60 [facility] Comment on above: Result Comment: Perf ormed at: CB Performed By: #### C BC #### [facility] [address] [place] [address] Dr. Dimple Parsons ESTROGENon 2022 Estrogens, Total 413 pg/mL Normal [facility] Comment on above: Result Comment: Prep ubertal < 40 Female Cycle: 1-10 Days 16 - 328 11-20 Days 34 - 501 21-30 Days 48 - 350 Post-Menopausal 40 - 244 Performed By: #### D HEASUL #### [facility] [address] [place] [address] Dr. Dimple Parsons SEROTONINon 2022 Serotonin, Serum 20 ng/mL Critically low 31-207 [facility] Comment on above: Performed By: #### S EROTON #### [facility] [address] [place] [address] Dr. Dimple Parsons REVERSE T3on 06-08-2022 Reverse T3, Serum 15.6 ng/dL Normal 9.2-24.1 [facility] Comment on above: Result Comment: This test was developed and its performance characteristics determined by [facility]. It has not been cleared or approved by the Food and Drug Administration. Performed By: #### R [email or web address] #### [facility] [address] [place] [address] Dr. Dimple Parsons VIT D 1 25 DIHYDROXYon 06-07 Calcitriol(1,25 di-OH Vit D) 12.2 pg/mL Critically low 24.8-81.5 [facility] Comment on above: Performed By: #### V [id number] #### [facility] [address] [place] [address] Dr. Dimple Parsons C-PEPTIDE, SERUMon 3 C-Peptide, Serum 3.3 ng/mL Normal 1.1-4.4 [facility] Comment on above: Result Comment: C-Pe ptide reference interval is for fasting patients. Performed By: #### R [email or web address] #### [facility] [address] [place] [address] Dr. Dimple Parsons DHEA-SULFATEon 06-05-2022 DHEA-Sulfate 154.0 ug/dL Normal 84.8-378.0 [facility] Comment on above: Performed By: #### D SURINDER #### [facility] [address] [place] [address] Dr. Dimple Parsons ESTRADIOLon 06-05-2022 Estradiol 117.0 pg/mL Normal [facility] Comment on above: Result Comment: Adul t Female: Follicular phase 12.5 - 166.0 Ovulation phase 85.8 - 498.0 Luteal phase 43.8 - 211.0 Postmenopausal <6.0 - 54.7 1st trimester 215.0 - >4300.0 [facility] ECLIA methodology Performed By: #### R [email or web address] #### [facility] [address] [place] [address] Dr. Dimple Parsons INSULINon 06-05-2022 Insulin 13.1 uIU/mL Normal 2.6-24.9 [facility] Comment on above: Performed By: #### C BC #### [facility] [address] [place] [address] Dr. Dimple Parsons PROGESTERONEon 06-05-2022 Progesterone 4.8 ng/mL Normal [facility] Comment on above: Result Comment: Foll icular phase 0.1 - 0.9 Luteal phase 1.8 - 23.9 Ovulation phase 0.1 - 12.0 First trimester 11.0 - 44.3 Second trimester 25.4 - 83.3 Third trimester 58.7 - 214.0 Postmenopausal 0.0 - 0.1 Performed By: #### D SURINDER #### [facility] [address] [place] [address] Dr. Dimple Parsons SEX HORMONE-BINDING GLOBULIN on 06-05-2022 Sex Horm Binding Glob, Serum 40.7 nmol/L Normal 24.6-122.0 [facility] Comment on above: Performed By: #### Jocelyne BC #### [facility] [address] [place] [address] Dr. Dimple Parsons T3, TOTAL (TRIIODOTHYRONINE) on 06-05-2022 T3, TOTAL 89 ng/dL Normal 71-180 The [facility] Comment on above: Performed By: #### Rob PABONRT3 #### [facility] [address] [place] [address] Dr. Dimple Parsons THYROID PEROXIDASE ABon 05-13 Thyroid Peroxidase (TPO) Ab 12 IU/mL Normal 0-34 [facility] Comment on above: Performed By: #### Inder CADENA #### [facility] [address] [place] [address] Dr. Dimple Parsons FERRITINon 06-04-2022 Ferritin [Mass/Vol] 193.0 ng/mL Critically high 6.2-137.0 [facility] Comment on above: Performed By: ###Rick CADENA #### [facility] [address] [place] [address] Dr. Dimple Parsons FREE T3on 06-04-2022 FREE T3 2.24 pg/mlL Normal 2.18-3.98 The [facility] Comment on above: Performed By: #### Rob PABONRT3 #### [facility] [address] [place] [address] Dr. Dimple Parsons FREE T4on 06-04-2022 Free T4 [Mass/Vol] 1.14 ng/dL Normal 0.76-1.46 [facility] Comment on above: Performed By: #### Inder CADENA #### [facility] [address] [place] [address] Dr. Dimple Parsons GLUCOSE BLOODon 06-04-2022 Glucose [Mass/Vol] 92 mg/dL Normal 74-106 [facility] Comment on above: Performed By: #### R EVRT3 #### [facility] [address] [place] [address] Dr. Dimple Parsons GLYCOHEMOGLOBIN A1Con 2022 ADA RECOMMENDATION SEE BELOW Normal [facility] Comment on above: Result Comment: ADA RECOMMENDED LIMIT 4.0 - 6.0 ADA THERAPEUTIC TARGET < 7.0 ACTION SUGGESTED > 7.0 Performed By: #### A 1C #### [facility] [address] [place] [address] Dr. Dimple Parsons Glucose [Mass/Vol] 100 mg/dL Normal [facility] Comment on above: Performed By: #### A 1C #### [facility] [address] [place] [address] Dr. Dimple Parsons HbA1c (Bld) [Mass fraction] 5.1 % Normal 4.5-6.2 [facility] Comment on above: Performed By: #### A 1C #### [facility] [address] [place] [address] Dr. Dimple Parsons T4on 06-04-2022 T4 [Mass/Vol] 8.60 ug/dL Normal 4.80-13.90 [facility] Comment on above: Performed By: #### R EVRT3 #### [facility] [address] [place] [address] Dr. Dimple Parsons TSHon 06-04-2022 TSH 0.442 uIU/mL Normal 0.358-3.74 0 [facility] Comment on above: Performed By: #### R EVRT3 #### [facility] [address] [place] [address] Dr. Dimple Parsons US PELVIS AND TRANSVAGon [...] KAYLA GORDON Date: 2022-05-25 13:36 Normal The [facility] XR KUB 1 VIEWon 05-21-2022 XR KUB [...] DAVID ALDANA Date: 2022-05-21 06:53 Normal The [facility] CBC AUTO DIFFon 05-08-2022 BASO # 0.0 103/ul Normal 0.0-0.1 The [facility] Comment on above: Performed By: #### C BC #### [facility] [address] [address] [address] Dimple Parsons Basophils/100 WBC (Bld) 0.3 % Normal 0.2-2.0 The [facility] Comment on above: Performed By: #### C BC #### [facility] [address] [address] [address] Dimple Parsons EO # 0.2 103/ul Normal 0.0-0.7 [facility] Comment on above: Performed By: #### C BC #### [facility] [address] [address] [address] Dimple Parsons Eosinophils/100 WBC (Bld) 1.3 % Normal 0.9-7.0 [facility] Comment on above: Performed By: #### C BC #### [facility] [address] [place] [address] Dr. Dimple Parsons Erythrocyte distribution width (RBC) [Ratio] 13.9 % Normal 11.0-15.0 [facility] Comment on above: Performed By: #### C BC #### [facility] [address] [place] [address] Dr. Dimple Parsons Hematocrit (Bld) [Volume fraction] 38.8 % Normal 36.0-48.0 [facility] Comment on above: Performed By: #### C BC #### [facility] [address] [place] [address] Dr. Dimple Parsons Hemoglobin (Bld) [Mass/Vol] 12.8 g/dL Normal 12.0-16.0 [facility] Comment on above: Performed By: #### C BC #### [facility] [address] [place] [address] Dr. Dimple Parsons IG # 0.15 10e3/ul Critically high 0.00-0.03 [facility] Comment on above: Performed By: #### C BC #### [facility] [address] [place] [address] Dr. Dimple Parsons IG % 1.3 % Critically high 0.0-0.5 [facility] Comment on above: Performed By: #### C BC #### [facility] [address] [place] [address] Dr. Dimple Parsons LYMPH # 3.4 103/ul Normal 1.2-3.8 The [facility] Comment on above: Performed By: #### C BC #### [facility] [address] [place] [address] Dr. Dimple Parsons Lymphocytes/100 WBC (Bld) 28.9 % Normal 20.5-60.0 The [facility] Comment on above: Performed By: #### C BC #### [facility] [address] [place] [address] Dr. Dimple Parsons MANUAL DIFF REQ NO Normal The [facility] Comment on above: Performed By: #### C BC #### [facility] [address] [place] [address] Dr. Dimple Parsons MCH (RBC) [Entitic mass] 25.9 pg Critically low 26.7-34.0 [facility] Comment on above: Performed By: #### C BC #### [facility] [address] [address] [address] Dimple Parsons MCHC (RBC) [Mass/Vol] 33.0 g/dL Normal 29.9-35.2 [facility] Comment on above: Performed By: #### C BC #### [facility] [address] [address] [address] Dimple Parsons MCV (RBC) [Entitic vol] 78.5 fL Critically low 81.0-99.0 [facility] Comment on above: Performed By: #### C BC #### [facility] [address] [place] [address] Dr. Dimple Parsons MONO # 0.7 103/ul Normal 0.3-0.8 [facility] Comment on above: Performed By: #### C BC #### [facility] [address] [place] [address] Dr. Dimple Parsons Monocytes/100 WBC (Bld) 6.2 % Normal 1.7-12.0 [facility] Comment on above: Performed By: #### C BC #### [facility] [address] [place] [address] Dr. Dimple Parsons NEUT # 7.3 103/ul Critically high 1.4-6.5 [facility] Comment on above: Performed By: #### C BC #### [facility] [address] [place] [address] Dr. Dimple Parsons Neutrophils/100 WBC (Bld) 62.0 % Normal 43.0-75.0 The [facility] Comment on above: Performed By: #### C BC #### [facility] [address] [place] [address] Dr. Dimple Parsons Platelet mean volume (Bld) [Entitic vol] 9.1 fL Critically low 9.5-13.5 [facility] Comment on above: Performed By: #### C BC #### [facility] [address] [place] [address] Dr. Dimple Parsons PLT 426 103/ul Normal 150-450 The [facility] Comment on above: Performed By: #### C BC #### [facility] [address] [address] [address] Dimple Parsons RBC 4.94 106/ul Normal 4.20-5.40 [facility] Comment on above: Performed By: #### C BC #### [facility] [id number] Dimple Parsons WBC 11.9 103/ul Critically high 4.0-11.0 [facility] Comment on above: Performed By: #### C BC #### [facility] [id number] Dimple Parsons CT ABD/PELVIS WO CONon [...] ultrasound. Note: Exam was submitted to [facility] operations Incidental Findings call que, to call the above findings to the patient's primary care provider nonemergently. Electronically authenticated by: RERE CARLISLE Date: 2022-05-08 05:24 Normal The [facility] PROF 14(COMP METB)on 05-08- 023 Albumin [Mass/Vol] 4.0 g/dL Normal 3.4-5.0 [facility] Comment on above: Performed By: #### R [id number] #### [facility] [address] [place] [address] Dr. Dimlpe Parsons Albumin/Globulin [Mass ratio] 1.1 {ratio} Normal [facility] Comment on above: Performed By: #### R [email or web address] #### [facility] [address] [address] [address] Dimple Parsons ALP [Catalytic activity/Vol] 76 U/L Normal 46-116 The [facility] Comment on above: Performed By: #### R [id number] #### [facility] [address] [address] [address] Dimple Parsons ALT [Catalytic activity/Vol] 20 U/L Normal 14-59 [facility] Comment on above: Performed By: #### R EVRT3 #### [facility] [address] [address] [address] Dimple Parsons Anion gap [Moles/Vol] 14.9 mmol/L Normal [facility] Comment on above: Performed By: #### R [email or web address] #### [facility] [address] [address] [address] Dimple Parsons AST [Catalytic activity/Vol] 19 U/L Normal 15-37 [facility] Comment on above: Performed By: #### R [email or web address] #### [facility] [address] [address] [address] Dimple Parsons Bilirubin [Mass/Vol] 0.6 mg/dL Normal 0.2-1.0 [facility] Comment on above: Performed By: #### R [id number] #### [facility] [address] [place] [address] Dr. Dimple Parsons Calcium [Mass/Vol] 9.0 mg/dL Normal 8.5-10.1 [facility] Comment on above: Performed By: #### R [email or web address] #### [facility] [address] [place] [address] Dr. Dimple Parsons Chloride [Moles/Vol] 103 mmol/L Normal 98-107 [facility] Comment on above: Performed By: #### R [id number] #### [facility] [address] [place] [address] Dr. Dimple Parsons CO2 [Moles/Vol] 25.5 mmol/L Normal 21.0-32.0 [facility] Comment on above: Performed By: #### R [id number] #### [facility] [address] [place] [address] Dr. Dimple Parsons Creatinine [Mass/Vol] 0.75 mg/dL Normal 0.55-1.02 [facility] Comment on above: Performed By: #### R [email or web address] #### [facility] [address] [place] [address] Dr. Dimple Parsons EGFR-AF NIGERIAN >60 Normal >=60 The [facility] Comment on above: Performed By: #### R EVRT3 #### [facility] [address] [address] [address] Dimple Parsons EGFR-NON AF NIGERIAN >60 Normal >=60 [facility] Comment on above: Performed By: #### R [email or web address] #### [facility] [address] [address] [address] Dimple Parsons Globulin (S) [Mass/Vol] 3.8 g/dL Normal [facility] Comment on above: Performed By: #### R [email or web address] #### [facility] [address] [address] [address] Dimple Parsons Glucose [Mass/Vol] 107 mg/dL Critically high 74-[address] [facility] Comment on above: Performed By: #### R [email or web address] #### [facility] [address] [place] [address] Dr. Dimple Parsons Potassium [Moles/Vol] 3.4 mmol/L Critically low 3.5-5.1 [facility] Comment on above: Performed By: #### R [email or web address] #### [facility] [address] [address] [address] Dimple Parsons Protein [Mass/Vol] 7.8 g/dL Normal 6.4-8.2 [facility] Comment on above: Performed By: #### R [id number] #### [facility] [address] [place] [address] Dr. Dimple Parsons Sodium [Moles/Vol] 140 mmol/L Normal 136-145 [facility] Comment on above: Performed By: #### R [id number] #### [facility] [address] [place] [address] Dr. Dimple Parsons Urea nitrogen [Mass/Vol] 7.0 mg/dL Normal 7.0-18.0 [facility] Comment on above: Performed By: #### R [email or web address] #### [facility] [address] [address] [address] Dimple Parsons Urea nitrogen/Creatinine [Mass ratio] 9.3 mg/mg Normal [facility] Comment on above: Performed By: #### R [email or web address] #### [facility] [address] [place] [address] Dr. Dimple Parsons US PELVIS TRANSVAGon 023 [...] LEATHA GALVAN Date: 2022-05-08 08:57 Normal The [facility] CBC AUTO DIFFon 01-13-2022 BASO # 0.1 103/ul Normal 0.0-0.1 [facility] Comment on above: Performed By: #### C BC #### [facility] [address] [place] [address] Dr. Dimple Parsons Basophils/100 WBC (Bld) 0.5 % Normal 0.2-2.0 The [facility] Comment on above: Performed By: #### C BC #### [facility] [address] [place] [address] Dr. Dimple Parsons EO # 0.2 103/ul Normal 0.0-0.7 The [facility] Comment on above: Performed By: #### C BC #### [facility] [address] [place] [address] Dr. Dimple Parsons Eosinophils/100 WBC (Bld) 2.3 % Normal 0.9-7.0 [facility] Comment on above: Performed By: #### C BC #### [facility] [address] [place] [address] Dr. Dimple Parsons Erythrocyte distribution width (RBC) [Ratio] 13.2 % Normal 11.0-15.0 [facility] Comment on above: Performed By: #### C BC #### [facility] [address] [place] [address] Dr. Dimple Parsons Hematocrit (Bld) [Volume fraction] 40.5 % Normal 36.0-48.0 [facility] Comment on above: Performed By: #### C BC #### [facility] [address] [place] [address] Dr. Dimple Parsons Hemoglobin (Bld) [Mass/Vol] 13.0 g/dL Normal 12.0-16.0 The [facility] Comment on above: Performed By: #### C BC #### [facility] [address] [place] [address] Dr. Dimple Parsons IG # 0.01 10e3/ul Normal 0.00-0.03 [facility] Comment on above: Performed By: #### C BC #### [facility] [address] [place] [address] Dr. Dimple Parsons IG % 0.1 % Normal 0.0-0.5 [facility] Comment on above: Performed By: #### C BC #### [facility] [address] [place] [address] Dr. Dimple Parsons LYMPH # 2.6 103/ul Normal 1.2-3.8 [facility] Comment on above: Performed By: #### C BC #### [facility] [address] [place] [address] Dr. Dimple Parsons Lymphocytes/100 WBC (Bld) 27.4 % Normal 20.5-60.0 [facility] Comment on above: Performed By: #### C BC #### [facility] [address] [place] [address] Dr. Dimple Parsons MANUAL DIFF REQ NO Normal [facility] Comment on above: Performed By: #### C BC #### [facility] [address] [place] [address] Dr. Dimple Parsons MCH (RBC) [Entitic mass] 26.4 pg Critically low 26.7-34.0 [facility] Comment on above: Performed By: #### C BC #### [facility] [address] [address] [address] Dimple Parsons MCHC (RBC) [Mass/Vol] 32.1 g/dL Normal 29.9-35.2 [facility] Comment on above: Performed By: #### C BC #### [facility] [address] [address] [address] Dimple Parsons MCV (RBC) [Entitic vol] 82.2 fL Normal 81.0-99.0 [facility] Comment on above: Performed By: #### C BC #### [facility] [address] [address] [address] Dimple Parsons MONO # 0.6 103/ul Normal 0.3-0.8 [facility] Comment on above: Performed By: #### C BC #### [facility] [address] [address] [address] Dimple Parsons Monocytes/100 WBC (Bld) 6.2 % Normal 1.7-12.0 [facility] Comment on above: Performed By: #### C BC #### [facility] [address] [place] [address] Dr. Dimple Parsons NEUT # 6.1 103/ul Normal 1.4-6.5 [facility] Comment on above: Performed By: #### C BC #### [facility] [address] [address] [address] Dimple Parsons Neutrophils/100 WBC (Bld) 63.5 % Normal 43.0-75.0 [facility] Comment on above: Performed By: #### C BC #### [facility] [address] [address] [address] Dimple Parsons Platelet mean volume (Bld) [Entitic vol] 9.0 fL Critically low 9.5-13.5 [facility] Comment on above: Performed By: #### C BC #### [facility] [address] [address] [address] Dimple Parsons PLT 346 103/ul Normal 150-450 The [facility] Comment on above: Performed By: #### C BC #### [facility] [address] [address] [address] Dimple Parsons RBC 4.93 106/ul Normal 4.20-5.40 [facility] Comment on above: Performed By: #### C BC #### [facility] [address] [place] [address] Dr. Dimple Parsons WBC 9.5 103/ul Normal 4.0-11.0 [facility] Comment on above: Performed By: #### C BC #### [facility] [address] [place] [address] Dr. Dimple Parsons FREE T4on 01-13-2022 Free T4 [Mass/Vol] 1.39 ng/dL Normal 0.76-1.46 [facility] Comment on above: Performed By: #### C BC #### [facility] [address] [place] [address] Dr. Dimple Parsons PROF CHEM 8 (BAS METB)on Anion gap [Moles/Vol] 10.4 mmol/L Normal [facility] Comment on above: Performed By: #### Inder CADENA #### [facility] [address] [place] [address] Dr. Dimple Parsons Calcium [Mass/Vol] 9.0 mg/dL Normal 8.5-10.1 [facility] Comment on above: Performed By: #### Inder CADENA #### [facility] [address] [place] [address] Dr. Dimple Parsons Chloride [Moles/Vol] 101 mmol/L Normal 98-107 [facility] Comment on above: Performed By: #### Inder CADENA #### [facility] [address] [place] [address] Dr. Dimple Parsons CO2 [Moles/Vol] 29.3 mmol/L Normal 21.0-32.0 [facility] Comment on above: Performed By: #### Inder CADENA #### [facility] [address] [place] [address] Dr. Dimple Parsons Creatinine [Mass/Vol] 0.79 mg/dL Normal 0.55-1.02 [facility] Comment on above: Performed By: #### Inder CADENA #### [facility] [address] [address] [address] Dimple Parsons EGFR-AF NIGERIAN >60 Normal >=60 [facility] Comment on above: Performed By: #### Inder CADENA #### [facility] [address] [address] [address] Dimple Parsons EGFR-NON AF NIGERIAN >60 Normal >=60 [facility] Comment on above: Performed By: #### Inder CADENA #### [facility] [address] [address] [address] Dimple Parsons Glucose [Mass/Vol] 92 mg/dL Normal 74-106 [facility] Comment on above: Performed By: #### Inder CADENA #### [facility] [address] [address] [address] Dimple Parsons Potassium [Moles/Vol] 3.7 mmol/L Normal 3.5-5.1 [facility] Comment on above: Performed By: #### Inder CADENA #### [facility] [address] [address] [address] Dimple Parsons Sodium [Moles/Vol] 137 mmol/L Normal 136-145 [facility] Comment on above: Performed By: #### Inder CADENA #### [facility] [address] [address] [address] Dimple Parsons Urea nitrogen [Mass/Vol] 11.0 mg/dL Normal 7.0-18.0 [facility] Comment on above: Performed By: #### Inder CADENA #### [facility] [address] [address] [address] Dimple Parsons Urea nitrogen/Creatinine [Mass ratio] 13.9 mg/mg Normal [facility] Comment on above: Performed By: #### Inder CADENA #### [facility] [address] [address] [address] Dimple Parsons PROTIMEon 01-13-2022 INR Coag (PPP) [Relative time] 1.04 {INR} Normal [facility] Comment on above: Performed By: #### P TT, PT #### [facility] [address] [place] [address] Dr. Dimple Parsons INR GUIDELINES SEE BELOW [facility] Comment on above: Result Comment: VISHAL RED INR: 2.0 - 3.0 CONDITIONS NOT LISTED BELOW 2.5 - 3.5 FOR PROSTHETIC HEART VALVE REPLACEMENT 2.5 - 3.5 RECURRENT THROMBOSIS Performed By: #### P TT, PT #### [facility] [address] [place] [address] Dr. Dimple Parsons PT Coag (PPP) [Time] 11.2 s Normal 9.0-11.6 [facility] Comment on above: Performed By: #### P TT, PT #### [facility] [address] [place] [address] Dr. Dimple Parsons PTTon 01-13-2022 aPTT Coag (Bld) [Time] 35.1 s Normal 22.3-36.2 Th [facility] Comment on above: Performed By: #### P TT, PT #### [facility] [address] [place] [address] Dr. Dimple Parsons TSHon 01-13-2022 TSH 1.528 uIU/mL Normal 0.358-3.74 0 [facility] Comment on above: Performed By: #### T SH #### [facility] [address] [place] [address] Dr. Dimple Parsons PAP ACOG PANEL 2: 30 to 65on 12-26-2021 . . Normal [facility] Comment on above: Result Comment: Perf ormed at: WB Performed By: #### C BC #### [facility] [address] [place] [address] Dr. Dimple Parsons Age Gdln ACOG Testing 30-65 [facility] Comment on above: Performed By: #### C BC #### [facility] [address] [place] [address] Dr. Dimple Parsons DIAGNOSIS: Comment Normal [facility] Comment on above: Result Comment: NEGA TIVE FOR INTRAEPITHELIAL LESION OR MALIGNANCY. Performed at: WB Performed By: #### C BC #### [facility] [address] [address] [address] Dimple Parsons HPV Aptima Negative Normal Negative [facility] Comment on above: Result Comment: This nucleic acid amplification test detects fourteen high-risk HPV types (16,18,31,33,35,39,45,51,52,56,58,59,66,68) without differentiation. Performed at: =G Performed By: #### C BC #### [facility] [address] [place] [address] Dr. Dimple Parsons Methodology: Comment Normal [facility] Comment on above: Result Comment: This liquid based ThinPrep(R) pap test was screened with the use of an image guided system. Performed at: WB Performed By: #### C BC #### [facility] [address] [place] [address] Dr. Dimple Parsons Note: Comment Normal [facility] Comment on above: Result Comment: The Pap smear is a screening test designed to aid in the detection of premalignant and malignant conditions of the uterine cervix. It is not a diagnostic procedure and should not be used as the sole means of detecting cervical cancer. Both false-positive and false-negative reports do occur. . Performed at: WB Performed By: #### C BC #### [facility] [address] [place] [address] Dr. Dimple Parsons Performed by: Comment Normal [facility] Comment on above: Result Comment: Susan Hercules Pad Making Machine Operator (ASCP) Performed at: WB Performed By: #### C BC #### [facility] [address] [place] [address] Dr. Dimple Parsons Specimen adequacy: Comment Normal [facility] Comment on above: Result Comment: Sati sfactory for evaluation. No endocervical component is identified. Performed at: WB Performed By: #### C BC #### [facility] [address] [place] [address] Dr. Dimple Parsons COVID Quick Testingon 2021 Result Negative [employer] Other Vital Signs Date Time Vital Sign Value Performing Clinician Facility 11-20-2024 10:04-0400 Diastolic blood pressure 93 mm[Hg] Nato Hawkins MD Work Phone: [facility] 11-20-2024 10:04-0400 Systolic blood pressure 133 mm[Hg] Nato Hawkins MD Work Phone: [facility] 10-09-2024 13:09-0400 Body mass index (BMI) [Ratio] 30.92 kg/m2 Brent Asuncion DO Work Phone: [facility] 10-09-2024 13:09-0400 Body weight 97.75 kg Brent Asuncion DO Work Phone: [facility] 10-09-2024 13:09-0400 Diastolic blood pressure 82 mm[Hg] Brent Asuncion DO Work Phone: [facility] 10-09-2024 13:09-0400 Systolic blood pressure 122 mm[Hg] Brent Asuncion DO Work Phone: [facility] 09-05-2024 13:46-0400 Body height 175.26 cm Saniya Mays APRN Work Phone: [facility] 09-05-2024 13:46-0400 Body mass index (BMI) [Ratio] 31.3 kg/m2 Saniya Mays APRN Work Phone: [facility] 09-05-2024 13:46-0400 Body temperature 98.8 [degF] Saniya Mays APRN Work Phone: [facility] 09-05-2024 13:46-0400 Body weight 96.16 kg Saniya Mays APRN Work Phone: [facility] 09-05-2024 13:46-0400 Diastolic blood pressure 80 mm[Hg] Saniya Mays APRN Work Phone: [facility] 09-05-2024 13:46-0400 Systolic blood pressure 124 mm[Hg] Saniya Davon VAZQUEZ Work Phone: [facility] 08-14-2024 13:38-0400 Body mass index (BMI) [Ratio] 30.68 kg/m2 Yesica OSWALD Work Phone: [facility] 08-14-2024 13:38-0400 Body weight 96.98 kg Yesica Mcnair PA Work Phone: [facility] 08-14-2024 13:38-0400 Diastolic blood pressure 84 mm[Hg] Yesica Mcnair PA Work Phone: [facility] 08-14-2024 13:38-0400 Systolic blood pressure 122 mm[Hg] Yesica Mcnair PA Work Phone: [facility] 07-23-2024 09:36-0400 Body mass index (BMI) [Ratio] 30.71 kg/m2 Brent Asuncion DO Work Phone: [facility] 07-23-2024 09:36-0400 Body weight 97.07 kg Brent Asuncion DO Work Phone: [facility] 07-23-2024 09:36-0400 Diastolic blood pressure 72 mm[Hg] Brent Asuncion DO Work Phone: [facility] 07-23-2024 09:36-0400 Systolic blood pressure 122 mm[Hg] Brent Asuncion DO Work Phone: [facility] 07-10-2024 10:02-0400 Body mass index (BMI) [Ratio] 31.13 kg/m2 Brent Asuncion DO Work Phone: [facility] 07-10-2024 10:02-0400 Body weight 95.62 kg Brent Asuncion DO Work Phone: [facility] 07-10-2024 10:02-0400 Diastolic blood pressure 84 mm[Hg] Brent Asuncion DO Work Phone: [facility] 07-10-2024 10:02-0400 Systolic blood pressure 124 mm[Hg] Brent Roland DO Work Phone: [facility] 05-16-2024 10:18-0500 Body height 175.26 cm [facility] 05-16-2024 10:18-0500 Body mass index (BMI) [Ratio] 29.9 kg/m2 [facility] 05-16-2024 10:18-0500 Body temperature 97.2 [degF] [facility] 05-16-2024 10:18-0500 Body weight 92.07 kg [facility] 05-16-2024 10:18-0500 Diastolic blood pressure 82 mm[Hg] [facility] 05-16-2024 10:18-0500 Heart rate 106 /min [facility] 05-16-2024 10:18-0500 SaO2% (BldA) [Mass fraction] 98 % [facility] 05-16-2024 10:18-0500 Systolic blood pressure 122 mm[Hg] [facility] 03-15-2024 11:31-0500 Body height 175.26 cm [facility] 03-15-2024 11:31-0500 Body mass index (BMI) [Ratio] 31.3 kg/m2 [facility] 03-15-2024 11:31-0500 Body temperature 96.5 [degF] [facility] 03-15-2024 11:31-0500 Body weight 96.27 kg [facility] 03-15-2024 11:31-0500 Diastolic blood pressure 72 mm[Hg] [facility] 03-15-2024 11:31-0500 Heart rate 92 /min [facility] 03-15-2024 11:31-0500 SaO2% (BldA) [Mass fraction] 97 % [facility] 03-15-2024 11:31-0500 Systolic blood pressure 122 mm[Hg] [facility] 02-15-2024 13:04-0500 Body height 175.26 cm [facility] 02-15-2024 13:04-0500 Body mass index (BMI) [Ratio] 31.8 kg/m2 [facility] 02-15-2024 13:04-0500 Body temperature 97.3 [degF] [facility] 02-15-2024 13:04-0500 Body weight 97.63 kg [facility] 02-15-2024 13:04-0500 Diastolic blood pressure 80 mm[Hg] [facility] 02-15-2024 13:04-0500 Heart rate 114 /min [facility] 02-15-2024 13:04-0500 SaO2% (BldA) [Mass fraction] 98 % [facility] 02-15-2024 13:04-0500 Systolic blood pressure 122 mm[Hg] [facility] 12-02-2023 10:38-0400 Body height 175.26 cm [facility] 12-02-2023 10:38-0400 Body mass index (BMI) [Ratio] 31.3 kg/m2 [facility] 12-02-2023 10:38-0400 Body weight 96.16 kg [facility] 12-02-2023 10:38-0400 Diastolic blood pressure 90 mm[Hg] [facility] 12-02-2023 10:38-0400 Heart rate 81 /min [facility] 12-02-2023 10:38-0400 Systolic blood pressure 133 mm[Hg] [facility] 10-10-2023 11:23-0400 Body height 175.26 cm [facility] 10-10-2023 11:23-0400 Body mass index (BMI) [Ratio] 31.1 kg/m2 [facility] 10-10-2023 11:23-0400 Body weight 95.84 kg [facility] 10-10-2023 11:23-0400 Diastolic blood pressure 70 mm[Hg] [facility] 10-10-2023 11:23-0400 Heart rate 98 /min [facility] 10-10-2023 11:23-0400 SaO2% (BldA) [Mass fraction] 98 % [facility] 10-10-2023 11:23-0400 Systolic blood pressure 128 mm[Hg] [facility] 10-03-2023 14:50-0400 Body height 175.26 cm [facility] 10-03-2023 14:50-0400 Body mass index (BMI) [Ratio] 31.3 kg/m2 [facility] 10-03-2023 14:50-0400 Body weight 96.16 kg [facility] 10-03-2023 14:50-0400 Diastolic blood pressure 86 mm[Hg] [facility] 10-03-2023 14:50-0400 Heart rate 85 /min [facility] 10-03-2023 14:50-0400 Systolic blood pressure 125 mm[Hg] [facility] 09-07-2023 13:03-0400 Body height 175.26 cm [facility] 09-07-2023 13:03-0400 Body mass index (BMI) [Ratio] 31.1 kg/m2 [facility] 09-07-2023 13:03-0400 Body weight 95.7 kg [facility] 09-07-2023 13:03-0400 Diastolic blood pressure 62 mm[Hg] [facility] 09-07-2023 13:03-0400 Heart rate 61 /min [facility] 09-07-2023 13:03-0400 SaO2% (BldA) [Mass fraction] 97 % [facility] 09-07-2023 13:03-0400 Systolic blood pressure 102 mm[Hg] [facility] 06-17-2023 14:03-0400 Body height 175.26 cm [facility] 06-17-2023 14:03-0400 Body mass index (BMI) [Ratio] 31.6 kg/m2 [facility] 06-17-2023 14:03-0400 Body weight 97.12 kg [facility] 06-17-2023 14:03-0400 Diastolic blood pressure 92 mm[Hg] [facility] 06-17-2023 14:03-0400 Heart rate 109 /min [facility] 06-17-2023 14:03-0400 Systolic blood pressure 136 mm[Hg] [facility] 04-04-2023 14:15-0500 Body height 175.26 cm Surya Fontenot [facility] 04-04-2023 14:15-0500 Body mass index (BMI) [Ratio] 30.42 kg/m2 Surya Hodges Other [facility] [email or web address] Other 04-04-2023 14:15-0500 Body weight 93.44 kg Surya Hodges Other [facility] 04-04-2023 14:15-0500 Diastolic blood pressure 85 mm[Hg] Surya Hodges Other [facility] 04-04-2023 14:15-0500 Systolic blood pressure 120 mm[Hg] Surya Hodges Other [facility] 12-17-2022 08:30-0400 Body height 175.26 cm Surya Hodges Other [facility] [email or web address] Other 12-17-2022 08:30-0400 Body mass index (BMI) [Ratio] 29.5 kg/m2 Surya Hodges Other [facility] [email or web address] Other 12-17-2022 08:30-0400 Body weight 90.63 kg Surya Hodges Other [facility] [email or web address] Other 12-17-2022 08:30-0400 Diastolic blood pressure 85 mm[Hg] Surya Hodges Other [facility] [email or web address] Other 12-17-2022 08:30-0400 Systolic blood pressure 120 mm[Hg] Surya Hodges Other [facility] [email or web address] Other 12-01-2022 12:00-0400 Body temperature 97.6 [degF] MD Surya Hodges Work Phone: [facility] 12-01-2022 12:00-0400 Diastolic blood pressure 77 mm[Hg] MD Surya Hodges Work Phone: [facility] 12-01-2022 12:00-0400 Heart rate 89 /min MD Surya Hodges Work Phone: [facility] 12-01-2022 12:00-0400 Respiratory rate 20 /min MD Surya Hodges Work Phone: [facility] 12-01-2022 12:00-0400 SaO2% (BldA) [Mass fraction] 99 % MD Surya Hodges Work Phone: [facility] 12-01-2022 12:00-0400 Systolic blood pressure 116 mm[Hg] MD Surya Hodges Work Phone: [facility] 12-01-2022 05:51-0400 Body weight 89.4 kg MD Surya Hodges Work Phone: [facility] 11-30-2022 16:30-0400 Body height 175.26 cm MD Surya Hodges Work Phone: [facility] 11-29-2022 11:15-0400 Body height 175.26 cm Surya Hodges Other [facility] [email or web address] Other 11-29-2022 11:15-0400 Body mass index (BMI) [Ratio] 28.79 kg/m2 Surya Hodges Other [facility] [email or web address] Other 11-29-2022 11:15-0400 Body temperature 97.1 [degF] Surya Hodges Other [employer] Other 11-29-2022 11:15-0400 Body weight 88.45 kg Surya Hodges Other [employer] Other 11-29-2022 11:15-0400 Diastolic blood pressure 88 mm[Hg] Surya Hodges Other [employer] Other 11-29-2022 11:15-0400 SaO2% (BldA) [Mass fraction] 98 % Surya Hodges Other [employer] Other 11-29-2022 11:15-0400 Systolic blood pressure 124 mm[Hg] Surya Hodges Other [employer] Other 11-18-2022 08:30-0400 Body height 175.26 cm Surya Hodges Other [employer] Other 11-18-2022 08:30-0400 Body mass index (BMI) [Ratio] 28.59 kg/m2 Surya Hodges Other [employer] Other 11-18-2022 08:30-0400 Body weight 87.82 kg Surya Hodges Other [employer] Other 11-18-2022 08:30-0400 Diastolic blood pressure 89 mm[Hg] Surya Hodges Other [employer] Other 11-18-2022 08:30-0400 Systolic blood pressure 131 mm[Hg] Surya Hodges Other [employer] Other 11-05-2022 10:00-0400 Body height 175.26 cm Surya Hodges Other [employer] Other 11-05-2022 10:00-0400 Body mass index (BMI) [Ratio] 29.68 kg/m2 Surya Hodges Other [employer] Other 11-05-2022 10:00-0400 Body weight 91.17 kg Surya Hodges Other [employer] Other 11-05-2022 10:00-0400 Diastolic blood pressure 85 mm[Hg] Surya Hodges Other [employer] Other 11-05-2022 10:00-0400 Systolic blood pressure 134 mm[Hg] Surya Hodges Other [employer] Other 10-18-2022 08:30-0400 Body height 175.26 cm Surya Hodges Other [employer] Other 10-18-2022 08:30-0400 Body mass index (BMI) [Ratio] 28.94 kg/m2 Surya Hodges Other [employer] Other 10-18-2022 08:30-0400 Body weight 88.91 kg Surya Hodges Other [employer] Other 10-18-2022 08:30-0400 Diastolic blood pressure 89 mm[Hg] Surya Hodges Other [employer] Other 10-18-2022 08:30-0400 Systolic blood pressure 137 mm[Hg] Surya Hodges Other [employer] Other 09-09-2022 10:15-0400 Body height 175.26 cm Surya Hodges Other [employer] Other 09-09-2022 10:15-0400 Body mass index (BMI) [Ratio] 29.12 kg/m2 Surya Hodges Other [employer] Other 09-09-2022 10:15-0400 Body weight 89.45 kg Surya Hodges Other [employer] Other 09-09-2022 10:15-0400 Diastolic blood pressure 89 mm[Hg] Surya Hodges Other [employer] Other 09-09-2022 10:15-0400 Respiratory rate 12 /min Surya Hodges Other [facility] [email or web address] Other 09-09-2022 10:15-0400 Systolic blood pressure 132 mm[Hg] Surya Hodges Other [facility] [email or web address] Other 05-21-2022 10:01-0500 Blood Pressure Location Kamaljit AYALA [facility] 05-21-2022 10:01-0500 Diastolic blood pressure 80 mm[Hg] Kamaljit AYALA [facility] 05-21-2022 10:01-0500 Heart rate 85 /min Kamaljit AYALA [facility] 05-21-2022 10:01-0500 Systolic blood pressure 119 mm[Hg] Kamaljit AYALA [facility] 01-13-2022 08:36-0400 Blood Pressure Location SANIYA MANDEEP [facility] 01-13-2022 08:36-0400 Diastolic blood pressure 90 mm[Hg] SANIYA MANDEEP [facility] 01-13-2022 08:36-0400 Heart rate 91 /min SANIYA MANDEEP [facility] 01-13-2022 08:36-0400 Respiratory rate 16 /min SANIYA MANDEEP [facility] 01-13-2022 08:36-0400 Systolic blood pressure 134 mm[Hg] SANIYA MANDEEP [facility] 04-08-2021 15:30-0500 Body height 175.26 cm Treasure Quezada Other [employer] Other 04-08-2021 15:30-0500 Body mass index (BMI) [Ratio] 29.97 kg/m2 Treasure Quezada Other [employer] Other 04-08-2021 15:30-0500 Body temperature 96.6 [degF] Treasure Quezada Other [employer] Other 04-08-2021 15:30-0500 Body weight 92.08 kg Treasure Quezada Other [employer] Other 04-08-2021 15:30-0500 Respiratory rate 18 /min Treasure Quezada Other [employer] Other 04-08-2021 15:30-0500 SaO2% (BldA) [Mass fraction] 98 % Treasure Quezada Other [employer] Other Encounters Encounter Date Encounter Type Care Provider Facility Start: 01-21-2025 ambulatory Kamaljit Hannah ty:[facility] Start: 12-28-2024 ambulatory Kamaljit Hannah ty:[facility] Start: 12-13-2024 ambulatory Kamaljit Hannah ty:CD:[id number] Start: 12-10-2024 ambulatory SURYA HODGES Facility :[facility] Start: 11-21-2024 End: 11-21-2024 ambulatory Nato Hawkins MD Work Phone: Urology Start: 11-20-2024 End: 11-20-2024 Patient encounter procedure Nato Hawkins MD Work Phone: Urology Comment on above: Flank pain (Primary Dx); Ureteral stricture; H/O: hysterectomy Start: 11-20-2024 End: 11-20-2024 ambulatory SURYA HODGES Facility:[facility] Start: 11-20-2024 ambulatory Kamaljit Harrisi ty:CD:[id number] Start: 11-15-2024 End: 11-15-2024 ambulatory Kamaljit AYALA Facility:[id number] Start: 10-29-2024 End: 10-29-2024 Patient encounter procedure Kamaljit Ayala MD -[facility] Work Phone: Start: 10-29-2024 End: 10-29-2024 ambulatory Saniya Mays APRN Work Phone: [facility] Work Phone: Start: 10-09-2024 End: 10-09-2024 Bamboo flowsheet Brent Asuncion DO Work Phone: [facility] Start: 10-09-2024 End: 10-12-2024 Bamboo flowsheet Brent Asuncion DO Work Phone: [facility] OBKAY[facility] Start: 10-09-2024 End: 10-12-2024 Clinisync Result Encounter [...] Start: 10-09-2024 Non-patient / Non-visit Brent Asuncion -[facility] Work Phone: Start: 10-09-2024 End: 10-09-2024 ambulatory BRENT ASUNCION Not Available Start: 10-02-2024 End: 10-02-2024 ambulatory Kamaljit AYALA Facility:[facility] Start: 10-02-2024 End: 10-02-2024 Patient encounter procedure Kamaljit AYALA [facility] Start: 09-05-2024 End: 09-06-2024 ambulatory Saniya Davon VAZQUEZ Work Phone: [facility] Work Phone: Start: 09-05-2024 End: 09-05-2024 Patient encounter procedure Saniya Mays APRN [facility] Work Phone: Start: 08-23-2024 Non-patient / Non-visit Kamaljit romero MD -[facility] Work Phone: Start: 08-14-2024 [...] Start: 08-02-2024 Non-patient / Non-visit Brent Asuncion -[facility] Work Phone: Start: 08-02-2024 End: 08-02-2024 ambulatory Kamaljit AYALA Facility:[id number] Start: 07-23-2024 End: 07-23-2024 Bamboo flowsheet Brent Asuncion DO Work Phone: [facility] Start: 07-23-2024 End: 07-23-2024 Bamboo flowsheet Brent Asuncion DO Work Phone: [facility] Start: 07-23-2024 End: 07-23-2024 Clinisync Result Encounter Brent Asuncion DO Work Phone: [facility] Department Unsolicited Start: 07-23-2024 Non-patient / Non-visit Brent Asuncion -[facility] Work Phone: Start: 07-23-2024 End: 07-23-2024 ambulatory BRENT ASUNCION Not Available Start: 07-23-2024 End: 07-23-2024 Office outpatient visit 15 minutes Brent Asuncion DO Work Phone: [facility] Comment on above: Pre-op evaluation; Pelvic pain in female; Pain of ovary; H/O: hysterectomy Start: 07-23-2024 End: 07-23-2024 Preprocedural examination done Brent Asuncion DO Work Phone: [facility] Start: 07-10-2024 End: 07-10-2024 Bamboo [...] Department Unsolicited Start: 05-16-2024 End: 05-16-2024 ambulatory [facility] Work Phone: Start: 05-16-2024 End: 05-16-2024 Patient encounter procedure [facility] Work Phone: Start: 03-15-2024 End: 03-15-2024 ambulatory [facility] Work Phone: Start: 03-15-2024 End: 03-15-2024 Patient encounter procedure [facility] Work Phone: Start: 02-15-2024 End: 02-15-2024 Patient encounter procedure [facility] Work Phone: Start: 12-02-2023 End: 12-02-2023 ambulatory [facility] Work Phone: Start: 12-02-2023 End: 12-02-2023 Patient encounter procedure [facility] Work Phone: Start: 10-10-2023 End: 10-10-2023 Patient encounter procedure [facility] Work Phone: Start: 10-05-2023 Patient encounter status [facility] Start: 10-03-2023 End: 10-03-2023 ambulatory [facility] Work Phone: Start: 10-03-2023 End: 10-03-2023 Encounter for general adult medical examination without abnormal findings [facility] Start: 10-03-2023 End: 10-03-2023 Patient encounter procedure [facility] Work Phone: Start: 09-07-2023 End: 09-07-2023 ambulatory [facility] Work Phone: Start: 09-07-2023 End: 09-07-2023 Patient encounter procedure [facility] Work Phone: Start: 07-12-2023 Non-patient / Non-visit [facility] Work Phone: Start: 06-17-2023 End: 06-17-2023 ambulatory [facility] Work Phone: Start: 06-17-2023 End: 06-17-2023 Patient encounter procedure [facility] Work Phone: Start: 05-04-2023 End: 05-04-2023 ambulatory [facility] Work Phone: Start: 05-04-2023 End: 05-04-2023 Patient encounter procedure [facility] Work Phone: Start: 05-02-2023 Non-patient / Non-visit [facility] Work Phone: Start: 04-21-2023 End: 04-21-2023 Online digital e/m svc est pt <7 d 11-20 minutes Yesica OSWALD Work Phone: [facility] Comment on above: Insulin resistance; Metabolic syndrome; Hormone imbalance Start: 04-04-2023 End: 04-04-2023 ambulatory Surya Hodges Other [employer] Other Start: 04-04-2023 Office outpatient vi sit 15 minutes Surya Hodges [facility] Start: 04-04-2023 End: 04-04-2023 Patient encounter procedure [facility] Start: 03-11-2023 End: 03-11-2023 ambulatory Surya Hodges Other [employer] Other Start: 03-11-2023 Telephone encounter Surya Hodges [facility] Start: 03-11-2023 Patient encounter procedure [facility] Start: 01-12-2023 End: 01-12-2023 ambulatory Surya Hodges Other [employer] Other Start: 01-12-2023 Telephone encounter Surya Hodges [facility] Start: 12-17-2022 End: 12-17-2022 ambulatory Surya Hodges Other [employer] Other Start: 12-17-2022 Office outpatient vi sit 15 minutes Surya Hodges [facility] Start: 11-30-2022 End: 12-01-2022 Evaluation and management of inpatient MD Surya Hodges Work Phone: [facility] [place] [facility] Work Phone: Start: 11-30-2022 End: 12-01-2022 observation encounter MD Sruya Hodges Work Phone: [facility] Work Phone: Start: 11-30-2022 End: 11-30-2022 ambulatory Surya Hodges Other [employer] Other Start: 11-30-2022 Telephone encounter Surya Hodges [facility] Start: 11-29-2022 End: 11-29-2022 ambulatory Surya Hodges Other [employer] Other Start: 11-29-2022 Office outpatient vi sit 15 minutes Surya Hodges [facility] Start: 11-29-2022 Telephone encounter Surya Hodges [facility] Start: 11-18-2022 End: 11-18-2022 ambulatory Surya Hodges Other [employer] Other Start: 11-18-2022 Office outpatient vi sit 10 minutes Surya Hodges [facility] Start: 11-05-2022 End: 11-05-2022 ambulatory Surya Hodges Other [employer] Other Start: 11-05-2022 Office outpatient vi sit 10 minutes Surya Hodges [facility] Start: 11-04-2022 End: 11-04-2022 ambulatory Surya Hodges Other [employer] Other Start: 11-04-2022 Telephone encounter Surya Hodges [facility] Start: 10-18-2022 End: 10-18-2022 ambulatory Surya Hodges Other [employer] Other Start: 10-18-2022 Office outpatient vi sit 10 minutes Surya Hodges [facility] Start: 09-17-2022 End: 09-17-2022 ambulatory Surya Hodges Other [employer] Other Start: 09-17-2022 Telephone encounter Surya Tracie [facility] Start: 09-09-2022 End: 09-09-2022 ambulatory Surya Hodges Other [employer] Other Start: 09-09-2022 Office outpatient vi sit 15 minutes [facility] [facility] Start: 06-18-2022 Encounter for other preprocedural examination DR BRENT ROLAND . [facility] Start: 06-16-2022 End: 06-16-[address] BRENT [...] encounter procedure Kamaljit AYALA [facility] Start: 05-20-2022 End: 05-21-[address] SURYA HODGES Facility:H1 Start: 05-08-2022 End: 05-08-[address] SURYA HODGES Facility:H1 Start: 03-23-2022 End: 04-16-2022 ambulatory BRINA SHEIKH Facility:H1 Start: 03-16-2022 End: 03-16-2022 ambulatory Surya Hodges Other [employer] Other Start: 03-16-2022 Office outpatient vi sit 15 minutes Surya Hodges [facility] Start: 02-25-2022 Gynecological examination normal Surya Hodges Other [employer] Other Start: 02-25-[address] SURYA HODGES Facil ity:H1 Start: 02-21-2022 End: 02-21-2022 ambulatory MD Surya Hodges Work Phone: [facility] Work Phone: Start: 02-21-2022 End: 02-21-2022 Patient encounter procedure MD Surya Hodges Work Phone: [facility] Start: 01-13-2022 End: 01-14-[address] BRENT ROLAND . Facility:H1 Start: 01-13-2022 End: 01-13-2022 Patient encounter procedure SANIYA KAUFMAN [facility] Start: 12-21-2021 End: 12-21-[address] BRENT ROLAND . Facility:H1 Start: 04-08-2021 (URG) Urgent Care Visit Treasure pimentel [facility] Start: 04-08-2021 End: 04-08-2021 ambulatory Treasure Quezada Other [employer] Other Start: 05-16-2020 Pre-procedure evalua tion check Surya Hodges Other [employer] Other Procedures Date Procedure Procedure Detail Performing Clinician Start: 10-29-2024 Intravenous pyelogram J leslee Mays APRN Work Phone: Start: 10-09-2024 IGP,APTIMA HPV,AGE GDLN [employer] DO Work Phone: Start: 10-02-2024 Cystoscopic removal of ureteric stent Kamaljitana AYALA Start: 07-23-2024 ALL CBC WITH AUTO DIFF [employer] DO Work Phone: Start: 07-23-2024 ECG 12-LEAD [employer] DO Work Phone: Start: 07-10-2024 RECURRENT VAGINITIS (HTRX) Brent Asuncion DO Work Phone: Start: 07-10-2024 Urnls dip stick/tabl et rgnt non-auto w/o micrscp [employer] Work Phone: Start: 07-03-2024 US PELVIS W/ TRANSVAGINAL [employer] Work Phone: Start: 12-28-2022 Microscopic observat ion [Identifier] in Cervix by Cyto stain [employer] Work Phone: Start: 12-28-2022 Cytp cerv/vag auto t hin layer prep mnl screen [employer] Work Phone: Start: 11-30-2022 Ultrasonography of liver MD Surya Hodges Work Phone: Start: 11-30-2022 Respiratory Panel (PCR) MD Surya Hodges Work Phone: Start: 11-30-2022 Plain chest X-ray MD Kike Hodges Work Phone: Start: 02-21-2022 X-ray of left ankle MD Surya Hodges Work Phone: Start: 01-19-2022 Injection of urethra Margret AYALA Appendectomy SANIYA KAUFMAN Cholecystectomy SANIYA VANITA PATRICIA [...] Screening for malign ant neoplasm of cervix [facility] Start: 02-05-2025 End: 02-05-2025 Patient encounter procedure 02/05/2025 9:00 AM EST Office Visit Urology [address] [place] [address] Nato Hawkins MD [address] [id number] Cysto Stent Removal Urology Comment on above: Cysto Stent Removal Start: 01-07-2025 End: 01-07-2025 Admission to same day surgery center 01/07/2025 8:25 AM EDT - 01/07/2025 12:48 PM EDT Surgery Admitting [address] [id number] Nato Hawkins MD [address] [id number] XI ROBOTIC LAPAROSCOPIC REIMPLANT URETER BLADDER W/ PSOAS HITCH OR BLADDER FLAP Admitting Comment on above: XI ROBOTIC LAPAROSCO PIC REIMPLANT URETER BLADDER W/ PSOAS HITCH OR BLADDER FLAP Start: 01-07-2025 Subsequent hospital visit by physician 01/07/2025 8:25 AM EDT Hospital Encounter Admitting [address] [place] [address] Nato Hawkins MD [address] [place] [address] Ureteral stricture [N13.5] Admitting Comment on above: Ureteral stricture [ N13.5] Start: 01-07-2025 End: 01-07-2025 Unlisted laparoscopy procedure ureter XI ROBOTIC LAPAROSCOPIC REIMPLANT URETER BLADDER W/ PSOAS HITCH OR BLADDER FLAP Ureteral stricture 01/07/2025 8:25 AM EDT [facility] Start: 12-31-2024 End: 12-31-2024 Patient encounter procedure 12/31/2024 11:15 AM EDT Appointment Radiology [address] [address] W/WO IV CON Pre-Op Radiology Comment on above: Urogram CT W/WO IV C ON Pre-Op Start: 12-31-2024 End: 12-31-2024 ambulatory 12/31/2024 10:45 AM EDT Results Only [place] [facility] [address] [place] [address] [facility] Comment on [facility]: ct first Start: 12-31-2024 End: 12-31-2024 Anesthesia consultation 12/31/2024 9:40 AM EDT PAT Pre Anesthesia [address] [place] [address] 1, Pacc [place] [address] [facility] [place] [address] Pre-Op, 01/07/2025, Dr. Hawkins Pre Anesthesia Comment on above: Pre-Op, 01/07/2025, Dr. Hawkins Start: 12-24-2024 End: 01-07-2025 BACTERIAL CULTURE, UROLOGY PRESURGICAL SCREENING, URINE BACTERIAL CULTURE, UROLOGY PRESURGICAL SCREENING, URINE Microbiology Routine Ureteral stricture Hydronephrosis with ureteral stricture, not elsewhere classified Expected: 12/24/2024, Expires: 01/07/2025 [facility] Comment on above: Expected: 12/24/2024 , Expires: 01/07/2025 Start: 12-24-2024 End: 01-07-2025 CBC panel - Blood by Automated count COMPLETE BLOOD COUNT Lab Routine Ureteral stricture Hydronephrosis with ureteral stricture, not elsewhere classified Expected: 12/24/2024, Expires: 01/07/2025 [facility] Work Phone: Comment on above: Expected: 12/24/2024 , Expires: 01/07/2025 Start: 12-24-2024 End: 01-07-2025 Comprehensive metabolic 2000 panel - Serum or Plasma COMPREHENSIVE METABOLIC PANEL Lab Routine Ureteral stricture Hydronephrosis with ureteral stricture, not elsewhere classified Expected: 12/24/2024, Expires: 01/07/2025 [facility] Comment on above: Expected: 12/24/2024 , Expires: 01/07/2025 Start: 12-24-2024 End: 01-07-2025 TYPE + SCREEN TYPE + SCREEN Blood Bank Routine Ureteral stricture Hydronephrosis with ureteral stricture, not elsewhere classified Expected: 12/24/2024, Expires: 01/07/2025 [facility] Comment on above: Expected: 12/24/2024 , Expires: 01/07/2025 Start: 12-10-2024 End: 12-10-2024 Patient encounter procedure 12/10/2024 2:00 PM EDT Office [place] [address] Pre-Op [employer] [facility] [facility] Comment on above: Pre-Op Start: 11-12-2024 Influenza vaccination [facility] Start: 11-06-2024 End: 11-06-2024 Patient encounter procedure 11/06/2024 2:40 PM EDT Office Visit [facility] [address] [place] [id number] Brent Roland DO [address] [place] [address] [facility] Start: 10-09-2024 End: 10-09-2024 Patient encounter procedure [facility] Comment on above: Arrived Start: 08-14-2024 End: 08-14-2024 Patient encounter procedure 08/14/2024 1:20 PM EDT Office Visit [facility] [address] [place] [place] [phone] Yesica Mcnair PA [address] [place] [address] Arrived [facility] Comment on above: Arrived Start: 07-10-2024 End: 07-10-2024 Patient encounter procedure 07/10/2024 10:00 AM EDT Office Visit [facility] [address] [place] [phone] Brent Roland, [address] [place] [address] Arrived [facility] Comment on above: Arrived Start: 12-01-2022 [facility] Start: 11-30-2022 Hospital admission [facility] Start: 11-12-2022 Influenza vaccination Influenza Vacc ine (#1) [facility] Start: 06-10-2019 Screening for malign ant neoplasm of cervix [facility] Start: 2016 HPV Vaccine (1 - 3-d ose SCDM series) HPV Vaccine (1 - 3-dose SCDM series) [facility] Start: 2010 Screening for malign ant neoplasm of cervix [facility] Start: 2008 Hepatitis B Vaccine (1 of 3 - 19+ 3-dose series) Hepatitis B Vaccine (1 of 3 - 19+ 3-dose series) [facility] Start: 2008 Urine microalbumin profile DTaP,Tdap,Td Vaccine (1 - Tdap) [facility] Start: 06-10-2007 Anxiety Screening Anxiety Screening [facility] Start: 06-10-2007 Depression Screening Depression Scre ening [facility] Start: 06-10-2007 Hepatitis C screening Hepatitis C [facility] Start: 06-10-2007 HIV screening HIV Screening [facility] CBC W Auto Different ial panel - Blood CBC and differential Lab Routine Metabolic syndrome Hormone imbalance Ordered: 04/21/2023 [facility] Work Phone: Comment on above: Ordered: 04/21/2023 CHLAMYDIA TRACHOMATI S (GENITO/STI) CHLAMYDIA TRACHOMATIS (GENITO/STI) Lab Routine Pelvic pain Ordered: 07/10/2024 [facility] Comment on above: Ordered: 07/10/2024 Comprehensive metabo lic 2000 panel - Serum or Plasma [facility] Comprehensive metabo lic 1999 panel - Serum or Plasma [facility] Comprehensive metabo lic 1999 panel - Serum or Plasma Comprehensive metabolic panel Lab Routine Pre-op evaluation Pelvic pain in female H/O: hysterectomy Ordered: 07/23/2024 [facility] [employer] Work Phone: Comment on above: Ordered: 07/23/2024 End: 12-21-2025 CT Kidney WO and W contrast IV CT UROGRAM WO/W IVCON Radiology Routine Hydronephrosis with ureteral stricture, not elsewhere classified 1 Occurrences starting 11/21/2024 until 12/21/2025 [facility] Comment on above: 1 Occurrences starti ng 11/21/2024 until 12/21/2025 Cytology Cervical or vaginal smear or scraping study Pap Smear Pathology and Cytology Routine Well woman exam with routine gynecological exam Ordered: 10/09/2024 [facility] [employer] Work Phone: Comment on above: Ordered: 10/09/2024 Human papilloma viru s DNA [Presence] in Unspecified specimen by Probe with amplification HPV DNA probe, amplified Microbiology Routine Well woman exam with routine gynecological exam Ordered: 10/09/2024 [facility] [employer] Comment on above: Ordered: 10/09/2024 Neisseria gonorrhoea e DNA [Presence] in Unspecified specimen by LEO with probe detection Neisseria gonorrhea DNA probe, direct Lab Routine Pelvic pain Ordered: 07/10/2024 [facility] [employer] Comment on above: Ordered: 07/10/2024 Patient Education Mediterranean Diet Hyperthyroidism (Overactive Thyroid) (DC) Propranolol Prediabetes (DC) [facility] Work Phone: Patient referral [facility] Work Phone: SURESWAB(R) ADVANCED VAGINITIS PLUS, TMA SURESWAB(R) ADVANCED VAGINITIS PLUS, TMA Pathology and Cytology Routine Pelvic pain Ordered: 07/10/2024 [facility] [employer] Work Phone: Comment on above: Ordered: 07/10/2024 XR Knee - left 4 Views [facility] Immunizations Immunization Date Immunization Notes Care Provider Kathy holliday 04-20-2021 SARS-CoV-2 (COVID-19 ) mRNA BNT-162b2 vax SANIYA KAUFMAN [facility] Comment on above: Result Comment: 2021: TPVALL 08-14-2020 SARS-CoV-2 (COVID-19 ) Ad26 vaccine, recombinant SANIYA KAUFMAN [facility] Comment on above: Result Comment: 2021: TPVALL Payers Date Payer Category Payer Private Health Insurance [id number] 2021 Blue Cross Blue Shield [id number] 2021 Unknown BCBS BCBS [id number] 2021-Present [phone] [address] [place] [address] [id number] 1989 Unknown [id number] 2.16.840.1.360176.3.579.2 .593 1989 Unknown [id number] 2.16.840.1.783918.3.579.2 .593 1989 Unknown [id number] 2.16.840.1.397939.3.579.2 .593 1989 Unknown [id number] 2.16.840.1.664827.3.579.2 .593 1989 Unknown [id number] 2.16.840.1.768910.3.579.2 .593 1989 Unknown [id number] 2.16.840.1.566194.3.579.2 .593 1989 Unknown [id number] 2.16.840.1.841617.3.579.2 .593 1989 Unknown [id number] 2.16.840.1.101319.3.579.2 .593 1989 Unknown [id number] 2.16.840.1.204142.3.579.2 .593 1989 Unknown [id number] 2.16.840.1.864376.3.579.2 .593 1989 Unknown [id number] 2.16.840.1.361448.3.579.2 .593 1989 Unknown [id number] 2.16.840.1.641318.3.579.2 .593 1989 Unknown [id number] 2.16.840.1.237660.3.579.2 .1259 1989 Unknown [id number] 2.16.840.1.198063.3.579.2 .1259 1989 Unknown [id number] 2.16.840.1.407417.3.579.2 .1259 1989 Unknown [id number] 2.16.840.1.441000.3.579.2 .1259 1989 Unknown [id number] 2.16.840.1.440525.3.579.2 .727 1989 Unknown [id number] 2.16.840.1.658132.3.579.2 .727 1989 Unknown [id number] 2.16.840.1.323675.3.579.2 .727 1989 Unknown [id number] 2.16.840.1.269885.3.579.2 .727 1989 Unknown [id number] 2.16.840.1.343937.3.579.2 .727 1989 Unknown [id number] 2.16.840.1.103097.3.579.2 .727 1959 Blue Cross Blue Shield [facility] [id number] Self-pay Self Pay [id number] Unknown [employer] BC/BS [id number] Social History Date Type Detail Facility Unknown if ever smoked [employer] Other Start: 02-09-2023 End: 11-20-2024 Sex Assigned At [facility] Start: 01-13-2022 End: 09-07-2023 Tobacco smoking status Never smoked tobacco (finding) [facility] Start: 01-21-2014 Tobacco smoking status Never [facility] Start: 1990 Sex Assigned At Female [facility] Start: 02-09-2023 End: 10-09-2024 Alcohol intake Ex-drinker (finding) [facility] Start: 02-09-2023 End: 11-20-2024 History of Social function [facility] Start: 09-24-2022 Alcohol Comment occasional: drinks wine & beer [facility] Start: 09-27-2022 Gender identity Identifies as female gender (finding) [facility] Start: 03-18-2010 End: 03-15-2024 Sex Female (finding) [facility] Sexual Orientation [facility] Tobacco smoking stat [facility] Tobacco smoking consumption unknown [facility] Start: 1989 Sex assigned at Not on file [facility] Goals Date Patient Goal Desired Activity /State Personal health goal Functional Status Date Assessment Result Facility 12-01-2022 Functional status Patient at Baseline [facility] Work Phone: 05-21-2022 Functional Status N/A [facility] 01-13-2022 Functional Status N/A [facility] Mental Status Date Assessment Result Facility 12-01-2022 Cognitive function Cognitive Sta tus Patient at Baseline [facility] Work Phone: Clinical Notes 04-08-2021 to 11-20-2024 Nato Hawkins MD - 11/20/2024 10:00 AM EDTLeatha Blair LPN - 10/09/2024 1:00 PM EDT Note Date & Type Note Facility 11-20-2024 Note HNO ID: [id number] Author: NATO HAWKINS MD Service: ? Author Type: Physician Type: Progress Notes Filed: 11/20/2024 12:24 Note Text: [facility] UROLOGY NEW PATIENT [...] Nato Hawkins MD Staff Urologist Genitourinary Reconstruction [facility] [place] Department of Urology I spent a total of 30 minutes on the date of the service which included preparing to see the patient, eojx-dt-ankm patient care, completing clinical documentation, obtaining and/or reviewing separately obtained history, performing a medically appropriate examination, counseling and educating the patient/family/caregiver, and ordering medications, tests, or procedures. >50% of time was devoted to patient counseling. [1] [facility] 11-20-2024 History of Present illness Narrative Images from the original note were not included. [facility] UROLOGY NEW PATIENT CLINIC NOTE SERVICE DATE: 11/20/2024 NAME: Karlene lAfaro REFERRED BY: No referring provider defined for [...] kids, 12yo and 15 yo PSH del, titus, hyst Tubal ligation in 2012 Ablation in 2018 PAST MEDICAL HISTORY No past medical history [...] Nato Hawkins MD Staff Urologist Genitourinary Reconstruction [facility] [place] Department of Urology I spent a total of 30 minutes on the date of the service which included preparing to see the patient, gshd-yp-wumt patient care, completing clinical documentation, obtaining and/or reviewing separately obtained history, performing a medically appropriate examination, counseling and educating the patient/family/caregiver, and ordering medications, tests, or procedures. >50% of time was devoted to patient counseling. [1] documented in this encounter [facility] 10-09-2024 History of Present illness Narrative adip [...] 0.4 mg, Daily ALLERGIES Allergies Allergen Reactions Fwiwzxa-Ennqge-Khudb Pertussis Swelling Tetanus-Diphtheria Toxoids Td Other Azithromycin [...] nursing note reviewed. Exam conducted with a crop consultant present. Vitals: Estimated body mass index is [...] them. Patient can also view results via [employer]. I reinforced importance of condom use for [...] Brent Roland DO documented in this encounter [facility] 10-02-2024 Hospital Discharge instructions Patient Education 10/02/2024 [...] include: ?8 oz (237 mL) of milk, mwllkdz-zhwhjpxfyegk-sgccz milk, and calcium-fortifiedfruit juice. Calcium-fortified means that [...] ?Spinach (cooked), rhubarb, beets, sweet potatoes, and [place] Islander chard. ?Peanuts. ?Potato chips, swedish fries, and baked potatoes with skin on. ?Nuts and nut products. ?Chocolate. If you regularly take a diuretic medicine, make sure to eat at least 1 or 2 servings of fruits or vegetables that are high in potassium each day. These include: ?Avocado. ?Banana. ?[place], prune, carrot, or tomato juice. ?Baked potato. [...] magnesium, fish oil, or vitamin B6. Take enpj-sui-gwxswht and prescription medicines only as told by [...] Casseroles. Pizza. Lasagna. Frozen meals. Potato chips. Nigerien fries. The items listed above may not [...] provider. Document Revised: 06/10/2022 Document Reviewed: 06/10/2022 [employer] Patient Education 2023 [employer]. Follow Up Care 09/11/2024 09:57:49 With:LUCY STILES, Kamaljit Rivas, SAVITA Address: [facility] [address], [place] [address]- When: Unknown [facility] [place] 10-02-2024 Note Patient Education Nephrology Dietary Guidelines [...] ? 8 oz (237 mL) of milk, qbnuabd-raxiocwhouxk-aknkn milk, and calcium-fortifiedfruit juice. Calcium-fortified means that [...] Spinach (cooked), rhubarb, beets, sweet potatoes, and [place] Islander chard. ? Peanuts. ? Potato chips, swedish fries, and baked potatoes with skin on. ? Nuts and nut products. ? Chocolate. ??? If you regularly take a diuretic medicine, make sure to eat at least 1 or 2 servings of fruits or vegetables that are high in potassium each day. These include: ? Avocado. ? Banana. ? [place], prune, carrot, or tomato juice. ? Baked [...] fish oil, or vitamin B6. ??? Take zxko-dip-gflzvax and prescription medicines only as told by your health (more content not included)... [facility] 09-05-2024 Evaluation note Diagnosis Onset Date Resolution Poison abena dermatitis acute Prakash e 2024 1:43pm [facility] Work Phone: 1(942) 221-757506-03-2025 History of Present illness Narrative* MARGRET Canales [...] chew, or split. ALLERGIES Allergies Allergen Reactions Uxylmdc-Zsxcnj-Qhxmt Pertussis Swelling Tetanus-Diphtheria Toxoids Td Other Azithromycin [...] retrograde, left ureteroscopy, left stent per dr aayla PAP SMEAR 12/01/2020 negative, HPV negative SALPINGECTOMY Bilateral 12/28/2019 TUBAL LIGATION Bilateral 2013 REVIEW OF SYSTEMS Review of Systems: Review [...] behalf of: MARGRET Canales documented in this encounterEllis Fischel Cancer [id number] History of Present illness Narrative* Brenda Tomlinson [...] on 08/02/[address] Roland at [facility]. MEDICATIONS Current Outpatient Medications Medication Instructions Black [...] chew, or split. ALLERGIES Allergies Allergen Reactions Todhhch-Heceov-Nioxt Pertussis Swelling Tetanus-Diphtheria Toxoids Td Other Azithromycin [...] negative SALPINGECTOMY Bilateral 12/28/2019 TUBAL LIGATION Bilateral 2013 REVIEW OF SYSTEMS Review of Systems: Review [...] nursing note reviewed. Exam conducted with a crop consultant present. Vitals: Estimated body mass index is [...] reviewed, and patient is to proceed to [facility] OR. Follow Up: Patient is to follow up between 1-2 weeks post operative to assess proper healing and recovery fromprocedure. Documented by Laney Chow LPN on behalf of: Brent Roland DO documented in this encounterEllis Fischel Cancer [id number] History of Present illness Narrative* Leathaedilberto Blair LPN - 07/10/2024 10:00 AM EDT [...] Oral, Daily ALLERGIES Allergies Allergen Reactions Adacel [Kgrjpay-Xposny-Msfbg Pertussis] Swelling Clindamycin Rash PROBLEMS Active Ambulatory [...] nursing note reviewed. Exam conducted with a crop consultant present. Vitals: Estimated body mass index is [...] of: Brent Roland DO documented in this encounterEllis Fischel Cancer [id number] Evaluation note* Diagnosis Onset Date Resolution Status Admit Date Obesity (BMI 30.0-34.9) acute J anuary 2024 11:26am Hypothyroidism acute May 16, 2024 10:00am Screening for lipid disorders acute May 16, 2024 10:00am Screening for metabolic disorder acu te May 16, 2024 10:00am Screening, deficiency anemia , iron acute May 16, 2024 10:00am Vitamin D deficiency acute [place] 2024 10:00am [facility] Work Phone: 1(935) 959-149512-04-2024 Evaluation note* Diagnosis Onset Date Resolution Status Admit Date Bronchitis acute February 15, 2024 1:00pm Maxillary sinusitis acute Decem 2023 1:00pm Obesity (BMI 30.0-34.9) acute D ec2023 1:00pm [facility] Work Phone: 1(218) 337-733902-08-2024 History of Present illness Narrative* MARGRET Canales - 04/21/2023 8:50 AM EST Reason for Appointment: Patient ID: Tootie Alfaro is a 32 y.o. female who presents for telehealth follow up Patient presents today via telephone call for a telehealth appointment. Patients Phone #: [phone] (mobile) Current Medications: has a current medication [...] LIGATION Bilateral 2012 Allergies Allergen Reactions Adacel [Zwpdeuw-Atsphb-Igrpf Pertussis] Swelling Clindamycin Rash Vitals: Estimated body [...] check for kidney function to [facility]. Pt aware and agrees to have blood work obtained. She will follow up in office in 3 months Documented by MARGRET Canales on behalf of: MARGRET Canales * Hedy Carter MA - 04/21/2023 8:50 AM EST Cbc order was sent to [facility] for pt to have done. documented in this encounterEllis Fischel Cancer [id number] Evaluation note* Encounter Date Diagnosis Assessment Notes Treatment Notes Treatment Clinical Notes Mar, Bronchitis (ICD-10 - J40) Discussed diagnosis with patient. Finish entire course of antibiotic. Proair inhaler sent today for patient to use PRN cough/wheezing/short ness of breath. Tessalon Pearles ordered to take as needed for cough. Increase fluids and rest. Lhvb-lzs-glhnwkb antipyretics as needed. Warning signs and symptoms reviewed with patient today. Patient to go immediately to the ER should she experience any of these. Patient to notify office should her symptoms persist and not improve. Patient verbalizes understanding and agrees to treatment plan. Mar, Vaginal yeast infection (ICD-10 - B37.31) Pt requests diflucan to cover probable yeast infection w antibiotic. [employer] Other 12-29-2023 Evaluation note* Encounter Date Diagnosis Assessment Notes Treatment Notes Treatment Clinical Notes Feb, Sore throat (ICD-10 - J02.9) [employer] Other 10-06-2023 Evaluation note* Encounter Date Diagnosis Assessment Notes Treatment Notes Treatment Clinical Notes Dec, Hypothyroidism (ICD-10 - E03.9) Recheck in next 4-6 weeks. Continue healthy diet and exercise. [employer] Other 09-20-2023 Discharge summary Author [facility] December 01, 2022 5:19pm Note Date/Time December 01, 2022 1:02pm [facility] [address] [place] [address] Discharge Summary Signed Patient: Karlene Alfaro MR#: [id number] : 1990 Acct:[id number] Age/Sex: 32 / F Adm Date: 3 Loc: Room: [address] [place] [address]: Baljinder Polanco MD Copies to: [...] Clear, Urine pH >= 9.0, Ur Specific [place] 1.013, Urine Protein Negative, Urine Glucose (UA) [...] % (Auto) 59.2, Lymph % (Auto) 32.3, [place] % (Auto) 6.8, Eos % (Auto) 0.9, Baso % (Auto) 0.8, Nucleat RBC Rel Count 0.2, Neut # (Auto) 4.9, Lymph # (Auto) 2.7, [place] # (Auto) 0.6, Eos # (Auto) 0.1, Baso # (Auto) 0.1, Monocyte Dist Width19.22 11/30/22 13:00: PHA Creatinine Clear 114.08, Sodium 138, Potassium 4.1, Htnftagg344, Carbon Dioxide 23.9, Anion Gap 14.2, BUN 9, Creatinine 0.83, Est GFR (CKD-EPI) > 60.0, Glucose 77, Calcium 9.5, Magnesium 1.9, Total Bilirubin 0.9, DirectBilirubin 0.00 L, Indirect Bilirubin 0.9, AST 11 L, ALT 16, Alkaline Kwwhtloojcs91, Total Protein 7.6, Albumin 4.4, Globulin 3.2, [...] <Electronically signed by Baljinder Polanco MD> 12/01/22 5894 [facility] Work Phone: 1(475) 596-815109-19-2023 History and physical note Author [facility] November 30, 2022 4:34pm Note Date/Time November 30, 2022 4:34pm [facility] [address] [place] [address] Hospitalist H&P Signed Patient: Karlene Alfaro MR#: [id number] : 1990 Acct:[id number] Age/Sex: 32 / F Adm Date: 3 Loc: Room: [address] [place] [address] Type: ADM IN Attending Dr: Baljinder Polanco [...] rub or JVD. Peripheral pulses present bilaterally. Fzyty-gz-rktl ultrasound is unremarkable. Lungs are clear to [...] contributes to her symptoms. DVT prophylaxis Xarelto [facility] Medical History (Updated 11/30/22 @ [...] % (Auto) 32.3 % (.) 11/30/22 13:00 [place] % (Auto) 6.8 % (.) 11/30/22 13:00 Eos % (Auto) 0.9 % (.) 11/30/22 13:00 Baso % (Auto) 0.8 % (.) 11/30/22 13:00 Nucleat RBC Rel Count 0.2 /100 WBC (0-0.5) 11/30/22 13:00 Neut # (Auto) 4.9 x10E3/uL (1.8-7.7) 11/30/22 13:00 Lymph # (Auto) 2.7 x10E3/uL (1.00-4.8) 11/30/22 13:00 [place] # (Auto) 0.6 x10E3/uL (0.0-0.8) 11/30/22 13:00 [...] >= 9.0 (5.0-9.0) 11/30/22 16:04 Ur Specific [place] 1.013 (1.001-1.030) 11/30/22 16:04 Urine Protein Negative [...] signed by Baljinder Polanco MD> 11/30/22 1634 [facility] Work Phone: [phone]) 614-663909-18-2023 Evaluation note* Encounter Date Diagnosis Assessment Notes [...] - E03.9) 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 Complete all doses. Wash all belongings that came in contact with plant oils. May continue to use Calamine lotion. Patient verbalized understanding and agreement with treatment plan. [employer] Other 08-07-2023 Evaluation note* Encounter Date Diagnosis [...] to ER and Follow-up with me immediately. [employer] Other 07-07-2023 Evaluation note* Encounter Date Diagnosis Assessment Notes Treatment Notes Treatment Clinical Notes Sep, Overweight (ICD-10 - E66.3) Sep, Body mass index [BMI] 29.0-29.9, adult (ICD-10 - Z68.29) [employer] Other 06-29-2023 Evaluation note* Encounter Date Diagnosis Assessment Notes Treatment Notes Treatment Clinical Notes Aug, Acute contact dermatitis (ICD-10 - L25.9) Take medications as directed. Complete all doses. Wash all belongings that came in contact with plant oils. May continue to use Calamine lotion. Patient verbalized understanding and agreement with treatment plan. [employer] Other 04-05-2023 NoteOPERATIVE NOTE OPERATION DATE: 06/16/2022 PROCEDURE: Diagnostic laparoscopy. PREOPERATIVE DIAGNOSIS: Pelvic pain, left ovarian cyst. POSTOPERATIVE DIAGNOSIS: Pelvic pain, left ovarian cyst. ANESTHESIA: General. SURGEON: Brent Roland D.O. PULLEY MAINTAINER: MIRNA Harden URINE OUTPUT: Yellow and clear. [...] taken to Recovery Room in stable condition.[id number] Discharge instructions Patient Education 05/21/2022 10:45:43 Kidney Stones, Onse-od-Tnlc Kidney Stones Kidney stones are rock-like masses [...] Follow these instructions at home: Medicines Take pvif-wir-gpwnujh and prescription medicines only as told by [...] 08/16/2008 Document Revised: 07/17/2019 Document Reviewed: 07/17/2019 [employer] Patient Education 2019 [employer]. Follow Up Care 05/11/2022 13:32:37 With:LUCY STILES, Kamaljit Rivas, URL Address: [address] [place], [place] [id number]- When: Unknown [facility] [employer] 01-03-2023 Evaluation note* Encounter Date Diagnosis Assessment Notes Treatment Notes Treatment Clinical Notes Mar, Pharyngitis, unspecified etiology (ICD-10 - J02.9) New medications as directed. Increase fluids, rest, good hand washing. OTC for fever/discomfort. Tooth brush in the crowd controller or get a new one after on antibiotics for 24 hours. F/U if no improvement in the next 72 hours Mar, Vaginal yeast infection (ICD-10 - B37.31) Will treat empirically for yeast, discharge and sx reported consistent with that of vaginal candidiasis. Instructed patient to take as directed, advised that she should feel improvement in about 2 days. [employer] Other 11-02-2022 Hospital Discharge instructions Patient Education [...] 02/14/2013 Document Revised: 10/18/2018 Document Reviewed: 10/18/2018 [employer] Patient Education 2020 [employer]. Follow Up Care 01/11/2022 14:36:11 With:[facility] Address: [facility] [place] [address] Business (1) When: Unknown Comments:for procedure as scheduled [facility] 01-26-2022 Evaluation note* Encounter Date Diagnosis [...] Patient care instructions given in writting by [facility] Care At Home document. [facility] [email or web address] Other Evaluation + Plan note No data available for this section [facility] evaluation + Plan note Future Appointments Appointment Date:09/03/2022 08:00:00 AM Scheduled Provider:Kamaljit AYALA MD Location:[facility] Appointment Type:URO Office Visit [facility] evaluation + Plan note Future Appointments Appointment Date:12/28/2024 08:00:00 AM Scheduled Provider:Kamaljit AYALA MD Location:[facility] Appointment Type:URO Office Visit [facility] [place] Evaluation noteNo assessment information available [facility] Work Phone: evalunueml noteNo InformationNortGeisinger [facility] [email or web address] Other Evaluation note* Diagnosis Onset Date Resolution Status Chest pain acute Tachycardia acute [facility] Work Phone: Evaluation note* Diagnosis Insulin resistance Other abnormal glucose Metabolic syndrome Dysmetabolic Syndrome X Hormone imbalance documented [facility] Diagnosis Onset Date Resolution Status Allergic reaction due to antibacterial drug acute Streptococcus pharyngitis ac [place] [facility] Work Phone: Evaluation note* Diagnosis Onset Date Resolution Status Anxiety acute Thyroid disease acute Migraines acute Screening for lipid disorders acute Screening for metabolic disorder acute Screening, deficiency anemia, iron acute [facility] Work Phone: Evaluation note* Diagnosis Onset Date Resolution Status Migraines acute Screening for lipid disorders acute Screening for metabolic disorder acute Screening, deficiency anemia, iron acute Left knee pain acute [facility] Work Phone: Evaluation note* Diagnosis Onset Date Resolution Status Migraines acute Screening for lipid disorders acute Screening for metabolic disorder acute Screening, deficiency anemia, iron acute Left knee pain acute Wellness examination acute Poison abena dermatitis acute [facility] Work Phone: Evaluation note* Diagnosis Pelvic pain documented in this encounter [facility] HealthcareEvaluation note* Diagnosis Pre-op evaluation Pelvic pain in female Unspecified symptom associated with female genital organs Pain of ovary H/O: hysterectomy Acquired absence of both cervix and uterus documented in this encounter [facility] [employer] note* Diagnosis Acute postoperative pain Other acute postoperative pain Postoperative follow-up Follow-up examination, following unspecified surgery Other insomnia documented in this encounter [facility] HealthcareEvaluation note* Diagnosis Onset Date Resolution Status Admit Date Poison abena dermatitis acute Aug 1:43pm [facility] Work Phone: Evaluation note* Diagnosis Well woman exam with routine gynecological exam Routine gynecological examination Insulin resistance Other abnormal glucose Encounter for weight loss counseling documented in this encounter [facility] [employer] note* Diagnosis Flank pain- Primary Abdominal pain, unspecified site Ureteral stricture Stricture or kinking of ureter H/O: hysterectomy Acquired absence of both cervix and uterus [facility] Diagnosis Ureteral stricture- Primary Stricture or kinking of ureter Hydronephrosis with ureteral stricture, not elsewhere classified Ureteral stricture Stricture or kinking of ureter documented in this encounter [facility] general Narrative - Reported* Type Description Date Medical History hypothyroidism Surgical History gallbladder removal Surgical History appendecs Surgical History ovarian cysts taken out in 2007 Surgical History hysterectomy Hospitalization History surgeries Hospitalization History child [employer] Other History general Narrative - Reported* Type Description Date Medical History hypothyroidism Surgical History gallbladder removal Surgical History appendecs Surgical History ovarian cysts taken out in 2007 Surgical History hysterectomy Hospitalization History surgeries Hospitalization History child Hospitalization History [facility] chest pain 11/2022 [employer] Other Hospital Discharge instructions Additional Instructions You have slightly elevated cholesterol level and prediabetes. Try to eat a healthier diet. Mediterranean diet is the best studied to improve health outcomes. I attached some instructions. Establish care with a primary care physician who will manage all your health issues.[facility] Work Phone: Progress note No data available for this section [facility] reason for referral (narrative)No reason for referral [facility] Work Phone: Advance Directives No Advanced [...] End: September 07, 2023 Saniya Mays APRN GAS ENGINE PERFORMANCE ENGINEER-C Attending Provider Act ellie Start: September 07, 2023 End: September 07, 2023 Team Status: Inactive Member Role Status Dates Surya Hodges MD Primary Care Provide r, Attending Provider Active Start: October 03, 2023 End: October 03, 2023 Team Status: Inactive Member Role Status Dates Surya Hodges MD Primary Care Provider Active Start: October 10, 2023 End: October 10, 2023 Saniya Mays APRN GAS ENGINE PERFORMANCE ENGINEER-C Attending Provider Act ellie Start: October 10, [...] MD Primary Care Provider Active Treasure Quezada GAS ENGINE PERFORMANCE ENGINEER-C Attending Provider Active Team Status: Inactive Member Role Status Dates Surya Hodges MD Primary Care Provider Active Marcio Steevn DO Emergency Provider Active Baljinder Polanco MD Admit Provider, Attending Provider Active Arts Therapist Relationship Specialty Start Date End Date Surya Hodges MD [facility] [place] [phone] PCP - General Family Medicine 09/27/22 Team Status: Active Member Role Status Dates Saniya Mays APRN GAS ENGINE PERFORMANCE ENGINEER-C Primary Care Provider Active Team Status: Inactive Member Role Status Dates Saniya Mays APRN GAS ENGINE PERFORMANCE ENGINEER-C Primary Care Provider, Attending Provider Active Start: February 15, 2024 End: February 15, 2024 Team Status: Inactive Member Role Status Dates Saniya Mays APRN GAS ENGINE PERFORMANCE ENGINEER-C Primary Care Provider, Attending Provider Active Start: March 15, 2024 End: March 15, 2024 Team Status: Inactive Member Role Status Dates Snaiya Mays APRN GAS ENGINE PERFORMANCE ENGINEER-C Primary Care Provider, Attending Provider Active Start: May 16, 2024 End: May 16, 2024 Arts Therapist Relationship Specialty Start Date End Date Surya Hodges MD PCP - General Family Medicine 09/27/22 Arts Therapist Relationship Specialty Start Date End Date Surya Hodges MD [address] [place] [facility] [place] [phone] PCP - General Family Medicine 09/27/22 Arts Therapist Relationship Specialty Start Date End Date Surya Hodges MD [address] [place] [facility] [place] [phone] PCP - General Family Medicine 09/27/22 Arts Therapist Relationship Specialty Start Date End Date Surya Hodges MD [address] [place] [facility] [place] [address] PCP - General Family Medicine 09/27/22 Arts Therapist Relationship Specialty Start Date End Date Surya Hodges MD [address] [place] [facility] [address] PCP - General Family Medicine 09/27/22 Arts Therapist Relationship Specialty Start Date End Date Surya Hodges MD [address] [place] [facility] [address] PCP - General Family Medicine 09/27/22 Arts Therapist Relationship Specialty Start Date End Date Surya Hodges MD [address] [place] [facility] [phone] PCP - General Family Medicine 09/27/22 Team Status: Active Member Role Status Dates Saniya Mays APRN GAS ENGINE PERFORMANCE ENGINEER-C Primary Care Provider Active Start: July 23, 2024 Brent Roland DO Attending Provider Active Start : July 23, 2024 Team Status: Active Member Role Status Dates Saniya Mays APRN GAS ENGINE PERFORMANCE ENGINEER-C Primary Care Provider Active Start: August 02, 2024 Brent Roland DO Attending Provider Active Start : August 02, 2024 Team Status: Active Member Role Status Dates Saniya Mays APRN GAS ENGINE PERFORMANCE ENGINEER-C Primary Care Provider Active Start: August 23, 2024 Kamaljit Ayala MD Attending Provider Active St art: August 23, 2024 Team Status: Inactive Member Role Status Dates Saniya Mays APRN GAS ENGINE PERFORMANCE ENGINEER-C Primary Care Provider Active Start: September 05, 2024 End: September 05, 2024 TAYLOR Harry Attending Provider Act ellie Start: September 05, 2024 End: September 05, 2024 Arts Therapist Relationship Specialty Start Date End Date Surya Hodges MD [address] [place] [phone] PCP - General Family Medicine 09/27/22 Arts Therapist Relationship Specialty Start Date End Date Surya Hodges MD [address] [place] [phone] PCP - General Family Medicine 09/27/22 Team Status: Active Member Role Status Dates Saniya Mays APRN GAS ENGINE PERFORMANCE ENGINEER-C Primary Care Provider Active Start: October 09, 2024 Brent Roland DO Attending Provider Active Start : October 09, 2024 Team Status: Inactive Member Role Status Dates Saniya Mays APRN GAS ENGINE PERFORMANCE ENGINEER-C Primary Care Provider Active Start: October 29, 2024 End: October 29, 2024 Kamaljit Ayala MD Attending Provider Active St art: October 29, 2024 End: October 29, 2024 Arts Therapist Relationship Specialty [place] [address] [place] [phone] PCP - General Family Medicine 01/21/14 Kamaljit Ayala MD [facility]3][place] [address] Referring Urology 11/06/24 Arts Therapist Relationship Specialty Start Date End Date Surya oHdges MD [address] [facility] [place] [address] PCP - General Family Medicine 01/21/14 Kamaljit Ayala MD [address] [facility] [place] [address] Referring Urology 11/06/24 Goals (unrecognized section and content) Goals may be documented in a n alternate section INFORMATION SOURCE (unrecogn ized section and content) DATE CREATED AUTHOR 07/01/2022 [facility] DATE CREATED AUTHOR AUTHOR'S ORGANIZ ATION 10/11/2024 [facility] EPIC DATE CREATED AUTHOR AUTHOR'S ORGANIZ ATION 10/31/2024 [facility] DATE CREATED AUTHOR AUTHOR'S ORGANIZ ATION [facility] DATE CREATED AUTHOR AUTHOR'S ORGANIZ ATION 12/19/2024 [facility] DATE CREATED AUTHOR AUTHOR'S ORGANIZ ATION 12/19/2024 [facility] Source Comments (unrecognize d section and content) In the event this informatio n is protected by the Federal Confidentiality of Alcohol and Drug Abuse Patient Records regulations: The Federal rules restrict any use of the information to criminally investigate or prosecute any alcohol or drug abuse patient.[facility] the event this information is protected by the Federal Confidentiality of Alcohol and Drug Abuse Patient Records regulations: The Federal rules restrict any use of the information to criminally investigate or prosecute any alcohol or drug abuse patient.[facility] FOR RECORDS PERTAINING TO PATIENTS WHO ARE [...] ON THE PRIMARY CLINICAL RECORDS. [facility] [employer] [facility]. provides no warranty or guarantee of the accuracy or completeness of information in this document.
--- OUTSIDE RECORDS SUMMARY | 2024-12-26 07:44 | XMS_ITS | Encounter Summary ---
Author Organization [facility] Address [address] [facility] [place] [address] Care Team Providers Care Carbon Furnace Operator Name Role Phone Aminta Piper MD Primary Care Provider [phone] Encounter Details Date Type Department Care Team (Late st Contact Info) Description 10/18/2024 Abstract [facility] [address] [place] [address] [place] [phone] Kenyatta Salazar MA Social History Tobacco Use [...] on filedocumented in this encounter Care Teams Carbon Furnace Operator Relationship Specialty Start Date End Date Aminta Piper MD [address] [facility] [place] [address] PCP - General Family Medicine 09/27/22 documented as of this encounter
--- OUTSIDE RECORDS SUMMARY | 2024-12-26 07:44 | XMS_ITS | Encounter Summary ---
Author Organization [facility] Address [address] [place] [address] Care Team Providers Care Accounts Payable Analyst Name Role Phone Kamaljit Romero MD Unavailable [phone] Saniya Mays DRAMA TEACHER Primary Care Provider Brent Roland DO Unavailable [phone] Source Comments In the event this information is protected by the Federal Confidentiality of Alcohol and Drug AbusePatient Records regulations: The Federal rules restrict any use of the information to criminally investigate or prosecute any alcohol or drug abuse patient.[facility] Encounter Details Date Type Department Care Team (Late st Contact Info) Description 12/17/2024 Get Medical Advice Urology [address] [place] [address] Brit Sandra MD [address] [place] [address] Fmla Social History Tobacco Use Types Packs/Day Years Used Date Smoking Tobacco: Never Assessed Area Deprivation Index Answer Date Jorge Luis rded National Score (1-100), lower number is lower ri sk 64 11/20/2024 State Score (1-10), lower number is lower risk 4 11/20/2024 Data from: https://www.neighborhoodatlas.medicine.[facility].edu/. Last address used for calculation [address] [place] [address] [address] 11/20/2024 Comments No Sex and Gender Information Value Date Recorded Sex Assigned at Not on file Legal Sex Female 11:30 AM EST Gender Identity Not on file Sexual Orientation Not on file documented as of this encounter Plan of Treatment Upcoming Encounters Date Type Department Care Team (Latest Contact Info) Description 12/31/2024 9:40 AM EDT PAT Pre Anest[facility] [address] [facility] [place] [address] 2, [place] [address] [place] [address] [place] [id number] Pre-Op, 01/07/2025, Dr. Sandra 12/31/2024 10:45 AM EDT Results Only [facility] [address] [place] [address] ct first 12/31/2024 11:15 AM EDT Appointment Radiology [address] [facility] [place] [address] W/WO IV CON Pre-Op 01/07/2025 10:31 AM EDT Hospital Encounter Admitting [address] [place] [address] Brit Sandra MD [address] [place] [address] Ureteral stricture [N13.5] 01/07/2025 10:31 AM EDT - 01/07/2025 2:54 PM EDT Surgery Admitting [address] [place] [address] Brit Sandra MD [address] [place] [address] XI ROBOTIC LAPAROSCOPIC REIMPLANT URETER BLADDER W/ PSOAS HITCH OR BLADDER FLAP 02/05/2025 9:00 AM EST Office Visit Urology [address] [facility] [address] Brit Sandra MD [address] [place] [address] Cysto Stent Removal Scheduled Procedures Name Priority Associated Diagnoses Date/Ti me XI ROBOTIC LAPAROSCOPIC REIMPLANT URETER BLADDER W/ PSOAS HITCH OR BLADDER FLAP Ureteral stricture 01/07/2025 10:31 AM EDT documented as of this encounter Visit Diagnoses Not on filedocumented in this encounter Care Teams Accounts Payable Analyst Relationship Specialty Start Date End Date Saniya Mays NP [address] [place] [address] PCP - General Family Medicine 12/10/24 Kamaljit Romero MD [address] [place] [address] Referring Urology 11/06/24 Brent Roland DO [address] [place] [address] Dr Wiliam [place] [address] Fruit Pitter 12/10/24 documented as of this encounter
--- OUTSIDE RECORDS SUMMARY | 2024-12-26 07:44 | XMS_ITS | Encounter Summary ---
Author Organization [facility] Address [address] [place] [address] Care Team Providers Care Stock Raiser Name Role Phone Kamaljit Romero MD Unavailable [phone] Saniya Mays MANAGER NURSING Primary Care Provider Brent Roland DO Unavailable [phone] Source Comments In the event this information is protected by the Federal Confidentiality of Alcohol and Drug AbusePatient Records regulations: The Federal rules restrict any use of the information to criminally investigate or prosecute any alcohol or drug abuse patient.[facility] Encounter Details Date Type Department Care Team (Late st Contact Info) Description 12/18/2024 Patient Msg Urology [address] [id number] Mary Ann Gonzales RN FMLA Social History Tobacco Use Types Packs/Day Years Used Date Smoking Tobacco: Never Assessed Area Deprivation Index Answer Date Jorge Luis rded National Score (1-100), lower number is lower ri sk 64 11/20/2024 State Score (1-10), lower number is lower risk 4 11/20/2024 Data from: https://www.neighborhoodatlas.[facility]/. Last address used for calculation [address] [place] [address] 81 11/20/2024 Comments No Sex and Gender Information Value Date Recorded Sex Assigned at Not on file Legal Sex Female 11:30 AM EST Gender Identity Not on file Sexual Orientation Not on file documented as of this encounter Miscellaneous Notes * Telephone Encounter - Mary Ann Gonzales RN - 12/18/2024 1:13 PM EDT Faxed [facility] paperwork to number pt provided for her work place. Mary Ann Gonzales RN documented in this encounter Plan of Treatment Upcoming Encounters Date Type Department Care Team (Latest Contact Info) Description 12/31/2024 9:40 AM EDT PAT Pre Anesthesia [address] [phone] 2, Pacc [place] [address] [place], [place] [phone] Pre-Op, 01/07/2025, Dr. Sandra 12/31/2024 10:45 AM EDT Results Only [facility] [id number] first 12/31/2024 11:15 AM EDT Appointment Radiology [address] [place] [address] W/WO IV CON Pre-Op 01/07/2025 10:31 AM EDT Hospital Encounter Admitting [address] [place] [address] Brit Sandra MD [address] [place] [address] Ureteral stricture [N13.5] 01/07/2025 10:31 AM EDT - 01/07/2025 2:54 PM EDT Surgery Admitting [address] [place] [address] Brit Sandra MD [address] [place] [address] XI ROBOTIC LAPAROSCOPIC REIMPLANT URETER BLADDER W/ PSOAS HITCH OR BLADDER FLAP 02/05/2025 9:00 AM EST Office Visit Urology [address] [place] [address] Brit Sandra MD [address] [place] [address] Cysto Stent Removal Scheduled Procedures Name Priority Associated Diagnoses Date/Ti me XI ROBOTIC LAPAROSCOPIC REIMPLANT URETER BLADDER W/ PSOAS HITCH OR BLADDER FLAP Ureteral stricture 01/07/2025 10:31 AM EDT documented as of this encounter Visit Diagnoses Not on filedocumented in this encounter Care Teams Stock Raiser Relationship Specialty Start Date End Date Saniya Mays NP [address] [place] [address] PCP - General Family Medicine 12/10/24 Kamaljit Romero MD [address] [place] [address] Referring Urology 11/06/24 Brent Roland DO [address] [place] [address] Dr [place] [address] Hospital Social Worker 12/10/24 documented as of this encounter
--- OUTSIDE RECORDS SUMMARY | 2024-12-26 07:44 | XMS_ITS | Encounter Summary ---
Author Organization [facility] Address [address] [facility] [place] [address] Care Team Providers Care Facility Service Manager Name Role Phone Aminta Piper MD Primary Care Provider [phone] Encounter Details Date Type Department Care Team (Late st Contact Info) Description 09/24/2022 Abstract [facility] [address] [facility] [place] [address] Yesica Mcnair PA [address] [facility] [address] [place], [place] [address] Social History Tobacco Use Types Packs/Day Years [...] on filedocumented in this encounter Care Teams Facility Service Manager Relationship Specialty Start Date End Date Aminta Piper MD [address] [place] [address] PCP - General Family Medicine 09/27/22 documented as of this encounter
--- OUTSIDE RECORDS SUMMARY | 2024-12-26 07:44 | XMS_ITS | Clinical Summary ---
Author Organization [facility] Address [address] [place] [address] Care Team Providers Care Flat Folder Name Role Phone Kamaljit Romero MD Unavailable [phone] Saniya Mays NP Primary Care Provider Brent Roland DO Unavailable [phone] Allergies Active Allergy Reactions Criticality Noted Date Comments Clindamycin Hives 11/20/2024 Rash Dtap-Ipv Component 1 Of 2 (Pf) Intolerance 11/2024 Hives; Rash; Welt Medications cephALEXin (KEFLEX) 500 mg capsule Take 1 capsule by mouth every 12 hours. 11/15/2024 Active levothyroxine (SYNTHROID) 137 mcg tablet Take 1 tablet by mouth once daily. Active mirabegron (MYRBETRIQ) 50 mg Tb24 Take 1 tablet by mouth once daily. 09/06/2024 Active ibuprofen (MOTRIN) 800 mg tablet TAKE 1 TABLET BY MOUTH EVERY 8 HOURS NEEDED FOR MILD PAIN Active Encounters Date Type Department Care Team Description 12/25/2024 Telephone Urology [address] [place] [address] Mary Ann Gonzales RN 12/25/2024 Telephone Urology [address] [place] [address] Mary Ann Gonzales, RN Stakes Player - Other 12/18/2024 Telephone Urology [address] [place] [address] Mary Ann Gonzales, FABBY 12/18/2024 Patient Msg Urology [address] [address] Mary Ann Gonzales, RN [facility] 12/17/2024 Get Medical Advice Urology [address] [place] [address] Brit Sandra MD [facility] 12/17/2024 Patient Msg Urology [address] [place] [address] Jessica Pinto, FABBY [facility] PAPERWORK 12/17/2024 Telephone Urology [address] [phone] Brit Sandra MD Stakes Player - Other 12/13/2024 Telephone Urology [address] [address] Mary Ann Gonzales, FABBY Stakes Player - Other 12/05/2024 Telephone Urology [address] [place] [address] Jessica Pinto, FABBY [facility] Paperwork 12/04/2024 Travel 11/21/2024 Get Medical Advice Urology [address] [place] [address] Brit Sandra MD Medication 11/21/2024 Patient Msg [facility] [address] [place] [address] Provider, [facility] Urology Scheduling Information 11/21/2024 Patient Update Urology [address] [address] Brit Sandra MD 11/20/2024 10:00 AM EDT Office Visit Urology [address] [facility] [place] [address] Brit Sandra MD Flank pain (Primary Dx); Ureteral stricture; H/O: hysterectomy 11/20/2024 Travel from Last 3 Months Social History Tobacco Use Types Packs/Day Years Used Date Smoking Tobacco: Never Assessed Area Deprivation Index Answer Date Jorge Luis rded National Score (1-100), lower number is lower ri 64 11/20/2024 State Score (1-10), lower number is lower risk 4 11/20/2024 Data from: https://www.neighborhoodatlas.[facility].edu/. Last address used for calculation [address] [place] [address] rd 81 11/20/2024 Comments No Sex and [...] 9:40 AM EDT PAT Pre Anesthesia [address] [phone] 2, Pacc [place] [address] [phone] Pre-Op, 01/07/2025, Dr. Sandra 12/31/2024 10:45 AM EDT Results Only [facility] [address] [place] [address] ct first 12/31/2024 11:15 AM EDT Appointment Radiology [address] [facility] [address] W/WO IV CON Pre-Op 01/07/2025 10:31 AM EDT Hospital Encounter Admitting [address] [place] [address] Brit Sandra MD [address] [place] [phone] Ureteral stricture [N13.5] 01/07/2025 10:31 AM EDT - 01/07/2025 2:54 PM EDT Surgery Admitting [address] [place] [address] Brit Sandra MD [address] [place] [phone] XI ROBOTIC LAPAROSCOPIC REIMPLANT URETER BLADDER W/ PSOAS HITCH OR BLADDER FLAP 02/05/2025 9:00 AM EST Office Visit Urology [address] [place] [address] Brti Sandra MD [address] [place] [address] Cysto Stent Removal Scheduled Procedures Name Priority [...] (1 of 3 - 19+ 3-dose series) 2008 Cervical Cancer Screening 2010 HPV Vaccine (1 - 3-dose SCDM series) 2016 Covid-19 Vaccine ( season) 11/12/202409/2021, 08/14/2020 Influenza Vaccine (#1) 2024 Procedures Procedure Name Priority Date/Time Associated Diagnosis Comments XR OUTSIDE CD DICOM IMPORT 10/29/2024 from Last 3 Months Results * SR-XR IVP IMPORT (10/29/2024) Anatomical Region Laterality Modality Other 10/29/2024 Narrative 11/07/2024 12:27 PM EDT Images were obtained outside of [facility] Procedure Note Provider, [facility] [place] - 11/07/2024 Images were obtained outside of [facility] Provider RADIOLOGY Final Result from Last [address] [place] [address] [place] [employer] PPO Care Teams Flat Folder Relationship Specialty Start Date End Date Saniya Mays NP [address] [phone] PCP - General Family Medicine 12/10/24 Kamaljit Romero MD [address] [place] [address] Referring Urology 11/06/24 Brent Roland DO [address] [place] [address] [place] [address] District Plant Engineer 12/10/24
--- OUTSIDE RECORDS SUMMARY | 2024-12-26 07:44 | XMS_ITS | Encounter Summary ---
Author Organization [facility] Address [address] [facility] [place] [address] Care Team Providers Care Center Human Resources Manager Name Role Phone Aminta Piper MD Primary Care Provider [phone] Reason for Visit * Reason Comments Med Refill Encounter Details Date Type Department Care Team (Late st Contact Info) Description 08/05/2024 Refill [facility] [address] [facility] [place] [phone] Brent Roland DO [address] [facility] [address]ili[address] [place], [facility]11 Social History Tobacco Use Types Packs/Day [...] on filedocumented in this encounter Care Teams Center Human Resources Manager Relationship Specialty Start Date End Date Aminta Piper MD [address] [place] [address] PCP - General Family Medicine 09/27/22 documented as of this encounter
--- OUTSIDE RECORDS SUMMARY | 2024-12-26 07:44 | XMS_ITS | Encounter Summary ---
Author Organization [facility] Address [address] [place] [address] Care Team Providers Care Certification Engineer Name Role Phone Kamaljit Romero MD Unavailable [phone] Saniya Mays THERAPIST RRT Primary Care Provider Brent Roland DO Unavailable [phone] Source Comments In the event this information is protected by the Federal Confidentiality of Alcohol and Drug AbusePatient Records regulations: The Federal rules restrict any use of the information to criminally investigate or prosecute any alcohol or drug abuse patient.[facility] Reason for Visit * Reason Comments Procurement Clerk - Other Encounter Details Date Type Department Care Team (Late st Contact Info) Description 12/17/2024 Telephone Urology [address] [address] Brit Sandra MD [address] [place] [address] Procurement Clerk - Other Social History Tobacco Use Types Packs/Day Years Used Date Smoking Tobacco: Never Assessed Area Deprivation Index Answer Date Jorge Luis rded National Score (1-100), lower number is lower ri sk 64 11/20/2024 State Score (1-10), lower number is lower risk 4 11/20/2024 Data from: https://www.neighborhoodatlas.medicine.[facility]/. Last address used for calculation [address] 81 11/20/2024 Comments No Sex and Gender Information Value Date Recorded Sex Assigned at Not on file Legal Sex Female 11:30 AM EST Gender Identity Not on file Sexual Orientation Not on file documented as of this encounter Miscellaneous Notes * Telephone Encounter - Mary Ann Gonzales RN - 12/17/2024 10:08 AM EDT Spoke with pt, she is going to schedule post op [address] Romero locally, will send my chart message to confirm appointment. Mary Ann Gonzales RN ----- Message from Erin Casanova sent at 12/17/2024 9:30 AM EDT ----- Do you want us to add on for 01/21 with you or should we schedule that 01/22? ----- Message ----- From: Mary Ann Gonzales RN Sent: 12/12/2024 3:02 PM EDT To: Cristine Scheduling Appt Pt needs TOV visit scheduled 14 days post op (surgery 01/07), I can do it, or fellow Bia Coronel can do it, thanks documented in this encounter Plan of Treatment Upcoming Encounters Date Type Department Care Team (Latest Contact Info) Description 12/31/2024 9:40 AM EDT PAT Pre Anesthesia [address] [place] [address] 2, Pacc [place] [address] [place] [address] Pre-Op, 01/07/2025, Dr. Sandra 12/31/2024 10:45 AM EDT Results Only [facility] [address] [place] [address] ct first 12/31/2024 11:15 AM EDT Appointment Radiology [address] [place] [phone] Urogram CT W/WO IV CON Pre-Op 01/07/2025 10:31 AM EDT Hospital Encounter Admitting [address]00 [place] [address] Brit Sandra MD [address] [place] [address] Ureteral stricture [N13.5] 01/07/2025 10:31 AM EDT - 01/07/2025 2:54 PM EDT Surgery Admitting [address] [place] [address] Brit Sandra MD [address] [place] [address] XI ROBOTIC LAPAROSCOPIC REIMPLANT URETER BLADDER W/ PSOAS HITCH OR BLADDER FLAP 02/05/2025 9:00 AM EST Office Visit Urology [address] [place] [address] Brit Sandra MD [address] [place] [address] Cysto Stent Removal Scheduled Procedures Name Priority Associated Diagnoses Date/Ti wy XI ROBOTIC LAPAROSCOPIC REIMPLANT URETER BLADDER W/ PSOAS HITCH OR BLADDER FLAP Ureteral stricture 01/07/2025 10:31 AM EDT documented as of this encounter Visit Diagnoses Not on filedocumented in this encounter Care Teams Certification Engineer Relationship Specialty Start Date End Date Saniya Mays NP [address] [place] [address] PCP - General Family Medicine 12/10/24 Kamaljit Romero MD [address] [place] [address] Referring Urology 11/06/24 Brent Roland DO [address] [place] [address] [place] [address] Conical Mixer 12/10/24 documented as of this encounter
--- OUTSIDE RECORDS SUMMARY | 2024-12-26 07:44 | XMS_ITS | Encounter Summary ---
Author Organization [facility] Address [address] [facility] [[email or web address]] [place] [address] Care Team Providers Care Mud Logger Name Role Phone Aminta Piper MD Primary Care Provider [phone] Encounter Details Date Type Department Care Team (Late st Contact Info) Description 10/26/2024 Abstract [facility] [address] [facility] [place] [phone] Brent Roland DO [address] [facility] [address]ili[address] [place], [facility]11 Social History Tobacco Use Types Packs/Day [...] on filedocumented in this encounter Care Teams Mud Logger Relationship Specialty Start Date End Date Aminta Piper MD [address] [place] [address] PCP - General Family Medicine 09/27/22 documented as of this encounter
--- OUTSIDE RECORDS SUMMARY | 2024-12-26 07:44 | XMS_ITS | Encounter Summary ---
Author Organization [facility] Address [address] [place] [address] Care Team Providers Care Barrel Tester Name Role Phone Kamaljit Romero MD Unavailable [phone] Saniya Mays STORE COORDINATOR Primary Care Provider Brent Roland DO Unavailable [phone] Source Comments In the event this information is protected by the Federal Confidentiality of Alcohol and Drug AbusePatient Records regulations: The Federal rules restrict any use of the information to criminally investigate or prosecute any alcohol or drug abuse patient.[facility] Encounter Details Date Type Department Care Team (Late st Contact Info) Description 12/17/2024 Patient Msg Urology [address] [place] [address] Jessica Pinto RN FMLA PAPERWORK Social History Tobacco Use Types Packs/Day Years Used Date Smoking Tobacco: Never Assessed Area Deprivation Index Answer Date Jorge Luis rded National Score (1-100), lower number is lower ri sk 64 11/20/2024 State Score (1-10), lower number is lower risk 4 11/20/2024 Data from: https://www.neighborhoodatlas.[facility]/. Last address used for calculation [address] [place] [address] 81 11/20/2024 Comments No Sex and Gender Information Value Date Recorded Sex Assigned at Not on file Legal Sex Female 11:30 AM EST Gender Identity Not on file Sexual Orientation Not on file documented as of this encounter Plan of Treatment Upcoming Encounters Date Type Department Care Team (Latest Contact Info) Description 12/31/2024 9:40 AM EDT PAT Pre Anesthesia [address] [facility] [place] [place] [address] 2, Pacc [place] [address] [facility] [place] [place] [address] Pre-Op, 01/07/2025, Dr. Sandra 12/31/2024 10:45 AM EDT Results Only [facility] [address] [place] [address] ct first 12/31/2024 11:15 AM EDT Appointment Radiology [address] [facility] [place] [address] W/WO IV CON Pre-Op 01/07/2025 10:31 AM EDT Hospital Encounter Admitting [address] [place] [address] Brit Sandra MD [address] [place] [address] Ureteral stricture [N13.5] 01/07/2025 10:31 AM EDT - 01/07/2025 2:54 PM EDT Surgery Admitting [address] [place] [address] Brit Sandra MD [address] [place] [phone] XI ROBOTIC LAPAROSCOPIC REIMPLANT URETER BLADDER W/ PSOAS HITCH OR BLADDER FLAP 02/05/2025 9:00 AM EST Office Visit Urology [address] [place] [address] Brit Sandra MD [address] [place] [phone] Cysto Stent Removal Scheduled Procedures Name Priority Associated Diagnoses Date/Ti me XI ROBOTIC LAPAROSCOPIC REIMPLANT URETER BLADDER W/ PSOAS HITCH OR BLADDER FLAP Ureteral stricture 01/07/2025 10:31 AM EDT documented as of this encounter Visit Diagnoses Not on filedocumented in this encounter Care Teams Barrel Tester Relationship Specialty Start Date End Date Saniya Mays NP [address] [place] [address] PCP - General Family Medicine 12/10/24 Kamaljit Romero MD [address] [place] [address] Referring Urology 11/06/24 Brent Roland DO [address] [place] [address] [place] [address] Credit Union Manager 12/10/24 documented as of this encounter
--- OUTSIDE RECORDS SUMMARY | 2024-12-26 07:44 | XMS_ITS | Encounter Summary ---
Author Organization [facility] Address [address] [place] [facility] [place] [address] Care Team Providers Care Re Etcher Name Role Phone Aminta Piper MD Primary Care Provider [phone] Encounter Details Date Type Department Care Team (Late st Contact Info) Description 10/16/2024 Orders Only [facility] [place] [facility] [address] [place] [address] Ashley Nicole LPN [address] [place] [phone] Social History Tobacco Use Types Packs/Day Years [...] on filedocumented in this encounter Care Teams Re Etcher Relationship Specialty Start Date End Date Aminta Piper MD [address] [place] [address] PCP - General Family Medicine 09/27/22 documented as of this encounter
--- OUTSIDE RECORDS SUMMARY | 2024-12-26 07:44 | XMS_ITS | Clinical Summary ---
Author Organization [facility] Address [address] [place] [address] Care Team Providers Care Curriculum Development Specialist Name Role Phone Aminta Piper MD Primary Care Provider [phone] Allergies Active Allergy Reactions Criticality Noted Date Comments Azithromycin Rash Low 07/12/2024 Clindamycin Rash Low 09/23/2022 Obykavv-Xhuhmj-Duxbw Pertussis Swelling 09/23 Tetanus-Diphtheria Toxoids Td Other [...] 30 capsule 11 5 12/22/19 25 Active Problems Problem Noted Date Diagnosed Date Acute postoperative pain 08/14/2024 Postoperative follow-up 08/14/2024 Encounters Date Type Department Care Team Description 11/21/2024 Telephone [facility] [address] [place] [address] Laney Chow LPN 10/29/2024 Telephone [facility] [address] [place] [address] Hedy Carter MA 10/26/2024 Abstract [facility] [address] [place] [address] Brent Roland DO 10/24/2024 Refill [facility] [address] [place] [address] Brent Roland, Insulin resistance; Encounter for weight loss counseling 10/23/2024 Refill [facility] [address] [place] [address] Brent Roland DO Insulin resistance; Encounter for weight loss counseling 10/23/2024 Refill [facility] [place] [place] [facility] [address] [place] [address] Brent Roland DO Insulin resistance; Encounter for weight loss counseling 10/18/2024 Abstract [facility] [address] [facility] [place] [place] [address] Kenyatta Salazar MA 10/16/2024 Orders Only [facility] [place] [place] [facility] [address] [facility] [place] [address] Ashley Nicole [place] 10/09/2024 1:00 PM EDT Office Visit [facility] [address] [place] [address] Brent Roland, Well woman exam with routine gynecological exam; Insulin resistance; Encounter for weight loss counseling 10/09/2024 Clinisync Result Encounter [facility] External Department Unsolicited Brent Roland, 10/09/2024 Bamboo flowsheet [facility] [address] [place] [address] Brent Roland, 09/30/2024 Refill [facility] [address] [place] [address] Brent Roland, Yeast infection from Last 3 Months Family [...] EDT) AGE GDLN ACOG TESTING Note . [facility] Comment: TESTS RESULT FLAG UNITS REF RANGE LAB Clinician Provided Cytology Information Source.............Vagina No. of containers..01 ThinPrep Vial Age Algo ACOG Olga... 30-65 FLAG LEGEND: L-Low Normal,H-High Normal,LL-Alert Low,HH-Alert High <-Panic Low,>-Panic High,A-Abnormal,AA-Critical Abnormal Performed at: 01 =G [facility] [place] [address] Ernestina Carballo MD, IGP, APTIMA HPV, RFX 16/18,45 Note . [facility] Comment: TESTS RESULT FLAG UNITS REF RANGE LAB DIAGNOSIS: 02 NEGATIVE FOR INTRAEPITHELIAL LESION OR MALIGNANCY. Specimen adequacy: 02 Satisfactory for evaluation. No endocervical component is identified. Performed by: 02 Delphine Taylor, Control Tower Radio Operator ([facility]) . 02 Note: Note 02 The Pap [...] Low,>-Panic High,A-Abnormal,AA-Critical Abnormal Performed at: [address] [address] Ernestina Carballo MD, HPV APTIMA Negative Negative [facility] Comment: This nucleic acid amplification test detects fourteen high- risk HPV types (16,18,31,33,35,39,45,51,52,56,58,59,66,68) without differentiation. Performed at: = - [facility] [address] [id number] Agricultural Extension Agent: Ernestina Carballo MD, Phone: [phone] Performed at: - [facility] [id number] Agricultural Extension Agent: Ernestina Carballo MD, Phone: [phone] 10/09/2024 12:5 8 PM EDT 10/09/2024 7:59 PM EDT Narrative [facility] - 10/12/2024 8:08 PM EDT SPATULA-ALONE VAGINA Brent Asuncion DO LAB BLOOD ORDERABLES Final Resul t Performing Organization Address [facility]/ZIP Co de Phone Number [facility] * Pap Smear (10/09/2024 12:00 AM EDT) Swab Cervical swab / Unknown Brent Asuncion DO LAB CYTOLOGY ORDERABLES Final Re sult Performing Organization Address City/[facility]/ZIP Co de Phone Number EXTERNAL LAB from Last 3 Months Insurance [facility] Care Teams Curriculum Development Specialist Relationship Specialty Start Date End Date Aminta Piper MD [address] [place] [address] PCP - General Family Medicine 09/27/22
--- OUTSIDE RECORDS SUMMARY | 2024-12-26 07:44 | XMS_ITS | Encounter Summary ---
Author Organization [facility] Address [address] [place] [address] Care Team Providers Care Preload Supervisor Name Role Phone Aminta Piper MD Primary Care Provider [phone] Encounter Details Date Type Department Care Team (Late st Contact Info) Description 07/27/2024 Abstract [facility] [address] [place] [address] [place] [id number] Kenyatta Salazar MA Social History Tobacco Use [...] on filedocumented in this encounter Care Teams Preload Supervisor Relationship Specialty Start Date End Date Aminta Piper MD [address] [facility] [place] [address] PCP - General Family Medicine 09/27/22 documented as of this encounter
--- OUTSIDE RECORDS SUMMARY | 2024-12-26 07:44 | XMS_ITS | Encounter Summary ---
Author Organization [facility] Address [address] [facility] [place] [address] Care Team Providers Care Awning Installer Name Role Phone Aminta Piper MD Primary Care Provider [phone] Encounter Details Date Type Department Care Team (Late st Contact Info) Description 08/02/2024 Abstract [facility] [address] [place] [id number] Brent Roland DO [address] [facility] [address] Wiliam [place], [facility] Social History Tobacco Use Types Packs/Day [...] on filedocumented in this encounter Care Teams Awning Installer Relationship Specialty Start Date End Date Aminta Piper MD [address] [place] [id number] PCP - General Family Medicine 09/27/22 documented as of this encounter
--- OUTSIDE RECORDS SUMMARY | 2024-12-26 07:44 | XMS_ITS | Encounter Summary ---
Author Organization [facility] Address [address] [place] [address] Care Team Providers Care Railroad Supervisor Of Engines Name Role Phone Kamaljit Romero MD Unavailable [phone] Saniya Mays CLINICAL INFORMATICS SPECIALIST Primary Care Provider Brent Roland DO Unavailable [phone] Source Comments In the event this information is protected by the Federal Confidentiality of Alcohol and Drug AbusePatient Records regulations: The Federal rules restrict any use of the information to criminally investigate or prosecute any alcohol or drug abuse patient.[facility] Reason for Visit * Reason Comments Health Care Marketing Specialist - Other Encounter Details Date Type Department Care Team (Late st Contact Info) Description 12/13/2024 Telephone Urology [address] [address] Mary Ann Gonzales, RN Health Care Marketing Specialist - Other Social History Tobacco Use Types Packs/Day Years Used Date Smoking Tobacco: Never Assessed Area Deprivation Index Answer Date Jorge Luis rded National Score (1-100), lower number is lower ri sk 64 11/20/2024 State Score (1-10), lower number is lower risk 4 11/20/2024 Data from: https://www.neighborhoodatlas.[facility]/. Last address used for calculation [address] [place] [address] 11/20/2024 Comments No Sex and Gender Information Value Date Recorded Sex Assigned at Not on file Legal Sex Female 11:30 AM EST Gender Identity Not on file Sexual Orientation Not on file documented as of this encounter Miscellaneous Notes * Telephone Encounter - Mary Ann Gonzales RN - 12/13/2024 2:08 PM EDT Left voicemail with Karlene Alfaro to confirm surgery date of 01/[address] Sandra Discussed pre op testing on 12/31 in [facility], and CT urogram scheduled 12/31 Provided office number for pt to call back and confirm Mary Ann Gonzales RN documented in this encounter Plan of Treatment Upcoming Encounters Date Type Department Care Team (Latest Contact Info) Description 12/31/2024 9:40 AM EDT PAT Pre Anesthesia [address] [place] [address] 2, P[facility] [place] [address] [place] [address] Pre-Op, 01/07/2025, Dr. Sandra 12/31/2024 10:45 AM EDT Results Only [place] [facility] [address] [place] [address] ct first 12/31/2024 11:15 AM EDT Appointment Radiology [address] [place] [address] W/WO IV CON Pre-Op 01/07/2025 10:31 AM EDT Hospital Encounter Admitting [address] [place] [address] Brit Sandra MD [address] [place] [address] Ureteral stricture [N13.5] 01/07/2025 10:31 AM EDT - 01/07/2025 2:54 PM EDT Surgery Admitting [address] [place] [address] Brit Sandra MD [address] [place] [address] XI ROBOTIC LAPAROSCOPIC REIMPLANT URETER BLADDER W/ PSOAS HITCH OR BLADDER FLAP 02/05/2025 9:00 AM EST Office Visit Urology [address] [place] [address] Brit Sandra MD [address] [place] [address] Cysto Stent Removal Scheduled Procedures Name Priority Associated Diagnoses Date/Ti me XI ROBOTIC LAPAROSCOPIC REIMPLANT URETER BLADDER W/ PSOAS HITCH OR BLADDER FLAP Ureteral stricture 01/07/2025 10:31 AM EDT documented as of this encounter Visit Diagnoses Not on filedocumented in this encounter Care Teams Railroad Supervisor Of Engines Relationship Specialty Start Date End Date Saniya Mays NP [address] [place] [address] PCP - General Family Medicine 12/10/24 Kamaljit Romero MD [address] [place] [address] Referring Urology 11/06/24 Brent Roland DO [address] [place] [address] [place] [address] 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
== END 2024-12-26 07:38 | disposition home or self-care (01) ==
LOC: LAB 07:41
PROVIDERS: PCP Nurse Practitioner Family
DX: N13.5 Crossing vessel and stricture of ureter without hydronephrosis (principal); N13.1 Hydronephrosis with ureteral stricture, not elsewhere classified
CPT/HCPCS: 87086

== ENCOUNTER 2024-12-26 07:43 | Outpatient (OUT) | payer BC, SELFPAY ==
--- OUTSIDE RECORDS SUMMARY | 2024-12-26 07:48 | XMS_ITS | CCD ---
Author Organization [facility] Care Team Providers Care Veterinarian Helper Name Role Phone Treasure Quezada Unavailable SURYA HODGES Primary Care Physician [phone] MD Surya Hodges Primary Care Provider KITA Quezada Attending Provider [phone] Surya Hodges Unavailable ASUNCION ., DR SEYMOUR [...] BRINA SHEIKH Admitting Unavailable ASUNCION ., DR SEYMORU Admitting Unavailable ASUNCION ., DR SEYMOUR Consulting [...] Unavailable MD Surya Hodges Primary Care Provider [phone] DO Marcio Steven Emergency Provider MD Baljinder Polanco Admit Provider MD Baljinder Polanco Attending Provider Jason Beasley Unavailable Surya Hodges MD Primary Care Provider [phone] Surya Hodges MD Primary Care Provider [phone] Surya Hodges MD Primary Care Provider [phone] Saniya Mays APRN Primary Care Provider Brent Roland DO Attending Provider Kamaljit Ayala MD Attending Provider Saniya Mays APRN Attending Provider BRENT ROLAND Attending Unavailable CIRO ROLANDY Attending Unavailable YESICA MCNAIR Attending Unavailable ASUNCION, BRENT Attending Unavailable Saniya Mays APRN Primary Care Provider Asuncion MERCADO, Brent Attending Provider [phone] Saniya Mays Primary Care Unavailable Kamaljit [...] Attending Unavailable AYALA, Kamaljit R Attending Unavailable AYAAL, Kamaljit R Attending Unavailable AYALA, Kamaljit R [...] skin (disorder) [facility] (20 sources) whooping cough Propensity to adverse reactions 04-04-19 24 swelling injection site [facility] (16 sources) Bordetella pertussis filamentous hemagglutinin vaccine, inactivated / Bordetella pertussis fimbriae 2/3 vaccine, inactivated / Bordetella pertussis pertactin vaccine, inactivated / Bordetella pertussis toxoid vaccine, inactivated / diphtheria toxoid vaccine, inactivated / tetanus toxoid vaccine, inactivated; Translations: [diphtheria/pertu ssis, acel/tetanus adult] Drug Allergy 03-14-19 20 Unknown, Comment:vaccin e [facility] (20 sources) Clindamycin; Translations: [clindamycin] Drug Allergy 03-14-19 20 Rash, Hives [facility] Comment on above: Onset Date: 03/14/19 20 (2 sources) acellular pertussis vaccine, inactivated / diphtheria toxoid vaccine, inactivated / tetanus toxoid vaccine, inactivated Drug Allergy [facility] (2 sources) Clindamycin Drug Allergy [facility] (10 sources) vaccine adjuvant system, AS01B liposomal Allergy to substance 12-01-19 23 Rash [facility] (17 sources) Ulzltoi-Flfijl-Dc ell Pertussis Propensity to adverse reactions 09-24-19 23 Swelling [facility] Work Phone: (9 sources) diphtheria,pertus sis (acellular),te Allergy to substance 05-04-19 24 Comment:amrit dejesus [facility] Comment on above: Onset Date: 03/14/19 20 (8 sources) Penicillins Allergy to substance 06-17-19 24 Hives [facility] (11 sources) Tetanus-Diphtheri a Toxoids Td Drug Allergy 07-13-19 25 Other [facility] (4 sources) Dtap-Ipv Component 1 Of 2 (Pf); Translations: [DTAP-IPV COMPONENT 1 OF 2 (PF)] Drug Intolerance 11-21-19 25 Intolerance [facility] Medications Current Medications Medication Drug Class(es) Dates [...] 7 days 28 tablet 07/10/2024 07/17/2024 Active [id number] 60 actuat albuterol 0.09 mg/actuat metered dose [...] BID, # 60 tab(s), Refills(s) 1, Pharmacy: [facility]/pharmacy #[id number] Start Date: 09/06/24 Status: Ordered Quantity: [...] Daily, # 30 cap(s), Refills(s) 0, Pharmacy: [facility]/pharmacy #[id number] Start Date: 09/06/24 Status: Ordered Quantity: [...] procedure, # 2 tab(s), Refills(s) 0, Pharmacy: [facility]/pharmacy #[id number] Start Date: 09/11/24 Status: Ordered Quantity: [...] 11:47am Start: 03-11-2023 take 1 capsule by [facility] every twelve hours Doxycycline Hyclate 100 [...] Other halfway (current) drug therapy; 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] Onset: 3 Episodic Other aftercare (3 sources) Long-term current use of drug therapy; 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] Episodic Other aftercare (3 [...] Test Name Value Interpretation Reference Range Facility [facility] 12-18[facility]2024 [facility] Telephone (JOHANNY) ----- KARLENE ALFARO ([id number]) 1990 F Date Time Provider Department 12/18/24 [...] Encounter Status:Closed by GAIL [facility]ERO [facility] KARLENE ALFARO ([id number]) 1990 F Date Time Provider Department 12/17/24 [...] MA - Fully Assessed 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 Allergies As of Date: 12/05/2024 Noted Allergy Reaction CLINDAMYCIN 11/20/2024 4 - Hives Comments: Rash DTAP-IPV COMPONENT 1 OF 2 (PF) 11/20/2024 5 - Intolerance Comments: Hives; Rash; Welt Date Reviewed: 11/20/2024 Reviewed by: Mendy Bartholomew MA - Fully Assessed Reason for Visit: [facility] Paperwork [[id number]] Prescriptions as of 12/05/2024 - cephALEXin (KEFLEX) [...] Encounter Status:Closed by EDGAR CARIAS on 12/05/24 [facility] CNOVon 11-20-2024 CNOV Office Visit (FVUROL ) ----- KARLENE ALFARO ([id number]) 1990 F Date Time Provider Department 11/20/24 10:00 AM NATO HAWKINS During your visit today, we recorded the following information about you: Blood pressure Last Period 133/93 06/12/18 Nato Hawkins MD 11/20/2024 12:24 PM Signed [facility] UROLOGY NEW PATIENT [...] Nato Hawkins MD Staff Urologist Genitourinary Reconstruction [facility] [place] Department of Urology I spent a total of 30 minutes on the date of the service which included preparing to see the patient, [id number] patient care, completing clinical documentation, obtaining and/or [...] 11/20/2024 (None) (more content not included)... Normal [facility] Creatinineon 10-29-2024 GFR/1.73 sq M.predicted MDRD (S/P/Bld) [Vol rate/Area] mL/min/{1.73_m2} Normal [facility] Comment on above: Order Comment: STAT FOR IVP Result Comment: PERF ORMED BY: [address] [address] PATHOLOGIST COMMUTATOR PRESSER ZITA BATISTA M.D. Performed By: #### C REAT #### [address] Creatinine [Mass/volume] in Serum or PlasmaOrdered By: Kamaljit Ayala on 10-29-2024 Creatinine [Mass/Vol] 0.77 mg/dL Normal 0.60-1.20 [facility] Comment on above: Order Comment: STAT FOR IVP Performed By: #### C REAT #### [address] No Panel InformationOrdered By: Kamaljit Ayala on 10-29-2024 Estimated GFR (CKD-EPI) > 60.0 mL/Min [facility] Creatinine Clearance (Chem N/A [facility] X-ray reportOrdered By: Crow Ramos on 10-29-2024 Study report [facility] [place] [address] [place] [address] XRay Report Signed Patient: Karlene Alfaro MR#: [id number] : 1990 Acct:[id number] Age/Sex: 34 / F ADM Date: 5 Loc: XD Room: Type: [facility] Attending Dr: Kamaljit Ayala MD Copies to: Kamaljit Ayala MD~ Ordering Provider: Kamaljit Ayala MD Date of Service: 10/29/24 XR/XR IVP: LT FLANK PAIN, URETERAL STICTURE XR IVP 10/29/2024 8:56 AM SIGNS AND SYMPTOMS: ^LT FLANK PAIN, URETERAL STICTURE ^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 10/29/2024 10:15 AM Dictation Location: [place] [address] Transcribed By: [facility] 10/29/24 1015 Dictated By: Crow Ramos II, MD 10/29/24 1011 Signed By: 10/29/24 1015 [facility] Work Phone: XR IVPon 10-29-2024 XR IVP [facility] [place] [address] [place] [address] XRay Report Signed Patient: Karlene Alfaro MR#: [id number] : 1990 Acct:[id number] Age/Sex: 34 / F ADM Date: 10/29/24 Loc: XD Room: Type: [facility] Attending Dr: Kamaljit Ayala MD Copies to: Kamaljit Ayala MD Ordering Provider: Kamaljit Ayala MD Date of Service: 10/29/24 XR/XR IVP: LT FLANK PAIN, URETERAL STICTURE XR IVP 10/29/2024 8:56 AM SIGNS AND SYMPTOMS: LT FLANK PAIN, URETERAL STICTURE HOLDING FOR LABS PROTOCOL: Ward Secretary radiographs of the abdomen and pelvis were [...] Ramos M.D. 10/29/2024 10:15 AM Dictation Location: [facility]--24 Transcribed By: TORITO 10/29/24 1015 Dictated By: Crow Ramos II, MD 10/29/24 1011 Signed By: 10/29/24 1015 Normal [facility] IGP,APTIMA HPV,AGE GDLNon AGE GDLN ACOG TESTING Note . [facility] Comment on above: TESTS RESULT FLAG UN ITS REF RANGE LAB Clinician Provided Cytology Information Source.............Vagina No. of containers..01 ThinPrep Vial Age Algo ACOG Olga... 30-65 01 FLAG LEGEND: L-Low Normal,H-High Normal,LL-Alert Low,HH-Alert High <-Panic Low,>-Panic High,A-Abnormal,AA-Critical Abnormal Performed at: 01 =G [facility] [address] Ernestina Carballo MD, HPV APTIMA Negative Negative [facility] Comment on above: This nucleic acid am plification test detects fourteen high- risk HPV types (16,18,31,33,35,39,45,51,52,56,58,59,66,68) without differentiation. Performed at: =G - [facility], [place] [id number] It Security Specialist: Ernestina Carballo MD, Phone: [phone] Performed at: - [facility], [place] [id number] It Security Specialist: Ernestina Carballo MD, Phone: [phone] IGP, APTIMA HPV, RFX 16/18,45 Note . [facility] Comment on above: TESTS RESULT FLAG UN ITS REF RANGE LAB DIAGNOSIS: 02 NEGATIVE FOR INTRAEPITHELIAL LESION OR MALIGNANCY. Specimen adequacy: 02 Satisfactory for evaluation. No endocervical component is identified. Performed by: 02 Delphine Taylor, Cotton Bag Sewer ([facility]) . 02 Note: Note 02 The Pap [...] <-Panic Low,>-Panic High,A-Abnormal,AA-Critical Abnormal Performed at: [address] [place] [address] Ernestina Carballo MD, SPATULA-ALONE VAGINA [facility] Human papilloma virus 16+18+ 31+33+35+39+45+51+52+56+58+59+66+68 DNA [Presence] in CerOrdered By: Brent Roland on 10-09-2024 HPV 16+18+31+33+35+39+45+5 1+52+56+58+59+66+68 DNA Probe+sig amp Ql (Cvx) Negative Negative [facility] Comment on above: This nucleic acid am plification test detects fourteen high- risk HPV types (16,18,31,33,35,39,45,51,52,56,58,59,66,68)without differentiation.Performed at: = - [facility] [id number] Director: Ernestina Carballo MD, Phone: [phone] at: [facility] [id number] Director: Ernestina Carballo MD, Phone: [phone] No Panel InformationOrdered By: Brent Roland on 10-09-2024 HPV High Risk Other Comment Note . [facility] Comment on above: TESTS RESULT FLAG UN ITS REF RANGE LAB DIAGNOSIS: 02 NEGATIVE FOR INTRAEPITHELIAL LESION OR MALIGNANCY.Specimen adequacy: 02 Satisfactory for evaluation. No endocervical component is identified.Performed by: 02 Delphine Taylor, Cotton Bag Sewer ([facility]). 02Note: Note 02 The Pap smear [...] Low,>-Panic High,A-Abnormal,AA-Critical Abnormal -----Performed at:02 [facility] [address] [address] Ernestina Carballo MD, Reference Lab Test Patient Age Note . [facility] Comment on above: TESTS RESULT FLAG UN ITS REF RANGE LAB Clinician Provided Cytology Information Source.............Vagina No. of containers..01 ThinPrep VialAge Hal SNOW Olga... 30-65 01 FLAG LEGEND: L-Low Normal,H-High Normal,LL-Alert Low,HH-Alert High <-Panic Low,>-Panic High,A-Abnormal,AA-Critical Abnormal -----Performed at:01 [facility] [address] [place] [address] Ernestina Carballo MD, Ambulatory Visit Summaryon 0 [...] Urology [address] , [place] [address]- Medications What How Much When Instructions Unchanged [...] ? 8 oz (237 mL) of milk, aglvnxt-dywnmlazclik-wvky y milk, and calcium-fortifiedfruit juice. Calcium-fortified means [...] and vegetable (more content not included)... Normal [facility] Urology Office/Clinic Noteon 10-02-2024 Urology [...] ureteral stricture found. *pt was there for life manager procedure (pelvic laparoscopy for significant L [...] [address], [place] [address]- Additional Instructions: 3 mos with IVP Patient [...] is negati (more content not included)... Normal [facility] Comment on above: Result Comment: Elec tronically Signed By: Kamaljit AYALA MD\.br\Date and Time Signed: 10/02/24 15:55 EDT\.br\Electronically Co-Signed By: Debbie Guadalupe\.br\Date and Time Co-Signed: 10/02/24 15:45 EDT Provider Letteron 09-13-2024 Provider Letter Provider Letter September 13, 2024 KARLENE ALFARO [address] [phone] : 1990 To Whom It May Concern, Please excuse above patient from work. Date of Illness: From: 09/06/24 To: 10/02/24 May Return to Work On: 10/03/24 Restrictions: None Comments: Continuation of FMLA from 09/06/24- 10/02/24. Patient may return to work without restrictions on 10/03/24. Sincerely, [facility]/ Dr. Kamaljit Ayala [address] [place] [address] [facility] Comment on above: Other Comment: corre ction/ pt change mind Provider Letter Provider Letter September 13, 2024 KARLENE ALFARO [address] [phone] : 1990 To Whom It May Concern, Please excuse above patient from work. Date of Illness: From: 09/06/24 To: 09/17/24 May Return to Work On:09/18/24 Restrictions: Patient may return to work 09/18/24 with no heavy lifting and light duty. Comments: N/A Sincerely, [facility] Basophils Auto (Bld) [#/Vol] on 08-23-2024 Basophils (Bld) [#/Vol] 0.0 10 3/uL 0.0-0.1 [facility] Basophils/100 WBC Auto (Bld) on 08-23-2024 Basophils/100 WBC (Bld) 0.6 % 0.2-2.0 [facility] Eosinophils/100 WBC Auto (Bl d)on 08-23-2024 Eosinophils/100 WBC (Bld) 3.0 % 0.9-7.0 [facility] Erythrocyte distribution wid th Auto (RBC) [Ratio]on 08-23-2024 Erythrocyte distribution width (RBC) [Ratio] 13.2 % 11.0-15.0 [facility] Estimated glomerular filtrat ion rate (GFR) non- Americanon 08-23-2024 GFR/1.73 sq M.predicted among non-blacks MDRD (S/P/Bld) [Vol rate/Area] mL/min/{1.73_m2} >=60 mL/min/1.7 3m 2 [facility] Hematocrit Auto (Bld) [Volum e fraction]on 08-23-2024 Hematocrit (Bld) [Volume fraction] 39.6 % 36.0-48.0 [facility] Hemoglobin [Mass/volume] in Bloodon 08-23-2024 Hemoglobin (Bld) [Mass/Vol] 12.9 g/dL 12.0-16.0 [facility] Laboratory - Chemistry and C hemistry - challengeon 08-23-2024 Calcium [Mass/Vol] 9.0 mg/dL 8.5-10.1 [facility] Chloride [Moles/Vol] 104 mmol/L 98-107 [facility] CO2 [Moles/Vol] 26.7 mmol/L 21.0-32.0 [facility] Creatinine [Mass/Vol] 0.82 mg/dL 0.55-1.02 [facility] GFR/1.73 sq M.predicted MDRD (S/P/Bld) [Vol rate/Area] mL/min/{1.73_m2} >=60 mL/min/1.7 3m 2 [facility] Glucose [Mass/Vol] 94 mg/dL 74-106 [facility] Potassium [Moles/Vol] 3.9 mmol/L 3.5-5.1 [facility] Sodium [Moles/Vol] 139 mmol/L 136-145 [facility] Urea nitrogen [Mass/Vol] 9.0 mg/dL 7.0-18.0 [facility] Urea nitrogen/Creatinine [Mass ratio] 11.0 mg/mg [facility] Laboratory - Hematology and Cell countson 08-23-2024 Immature granulocytes/100 WBC (Bld) 0.1 % 0.0-0.5 [facility] Leukocytes [#/volume] correc jocelynn for nucleated erythrocytes in Blood by Automated counon 08-23-2024 WBC corrected for nucl RBC Auto (Bld) [#/Vol] 6.7 10 3/uL 4.0-11.0 [facility] Lymphocytes Auto (Bld) [#/Vo l]on 08-23-2024 Lymphocytes (Bld) [#/Vol] 2.4 10 3/uL 1.2-3.8 [facility] Lymphocytes/100 WBC Auto (Bl d)on 08-23-2024 Lymphocytes/100 WBC (Bld) 34.9 % 20.5-60.0 [facility] MCH Auto (RBC) [Entitic mass ]on 08-23-2024 MCH (RBC) [Entitic mass] 26.2 pg Low 26.7-34.0 [facility] MCHC Auto (RBC) [Mass/Vol]on 08-23-2024 MCHC (RBC) [Mass/Vol] 32.6 g/dL 29.9-35.2 [facility] MCV Auto (RBC) [Entitic vol] on 08-23-2024 MCV (RBC) [Entitic vol] 80.5 fL Low 81.0-99.0 [facility] Monocytes Auto (Bld) [#/Vol] on 08-23-2024 Monocytes (Bld) [#/Vol] 0.3 10 3/uL 0.3-0.8 [facility] Monocytes/100 WBC Auto (Bld) on 08-23-2024 Monocytes/100 WBC (Bld) 4.9 % 1.7-12.0 [facility] Neutrophils Auto (Bld) [#/Vo l]on 08-23-2024 Neutrophils (Bld) [#/Vol] 3.8 10 3/uL 1.4-6.5 [facility] Neutrophils/100 WBC Auto (Bl d)on 08-23-2024 Neutrophils/100 WBC (Bld) 56.5 % 43.0-75.0 [facility] No Panel Informationon 08-23 Eosinophils # (Auto) 0.2 10 3/uL 0.0-0.7 [facility] Immature Granulocyte # (Auto) 0.01 10 3/uL 0.00-0.03 [facility] Platelet mean volume Auto (B ld) [Entitic vol]on 08-23-2024 Platelet mean volume (Bld) [Entitic vol] 8.9 fL Low 9.5-13.5 [facility] Platelets Auto (Bld) [#/Vol] on 08-23-2024 Platelets (Bld) [#/Vol] 398 10 3/uL 150-450 [facility] RBC Auto (Bld) [#/Vol]on RBC (Bld) [#/Vol] 4.92 10 6/uL 4.20-5.40 [facility] Serum or plasma anion gap de terminationon 08-23-2024 Anion gap [Moles/Vol] 12.2 [facility] Basophils Auto (Bld) [#/Vol] on 08-02-2024 Basophils (Bld) [#/Vol] 0.1 10 3/uL 0.0-0.1 [facility] Basophils/100 WBC Auto (Bld) on 08-02-2024 Basophils/100 WBC (Bld) 0.6 % 0.2-2.0 [facility] Eosinophils/100 WBC Auto (Bl d)on 08-02-2024 Eosinophils/100 WBC (Bld) 1.6 % 0.9-7.0 [facility] Erythrocyte distribution wid th Auto (RBC) [Ratio]on 08-02-2024 Erythrocyte distribution width (RBC) [Ratio] 13.1 % 11.0-15.0 [facility] Hematocrit Auto (Bld) [Volum e fraction]on 08-02-2024 Hematocrit (Bld) [Volume fraction] 43.7 % 36.0-48.0 [facility] Hemoglobin [Mass/volume] in Bloodon 08-02-2024 Hemoglobin (Bld) [Mass/Vol] 14.1 g/dL 12.0-16.0 [facility] Laboratory - Hematology and Cell countson 08-02-2024 Immature granulocytes/100 WBC (Bld) 0.2 % 0.0-0.5 [facility] Leukocytes [#/volume] correc jocelynn for nucleated erythrocytes in Blood by Automated counon 08-02-2024 WBC corrected for nucl RBC Auto (Bld) [#/Vol] 9.0 10 3/uL 4.0-11.0 [facility] Lymphocytes Auto (Bld) [#/Vo l]on 08-02-2024 Lymphocytes (Bld) [#/Vol] 3.0 10 3/uL 1.2-3.8 [facility] Lymphocytes/100 WBC Auto (Bl d)on 08-02-2024 Lymphocytes/100 WBC (Bld) 33.4 % 20.5-60.0 [facility] MCH Auto (RBC) [Entitic mass ]on 08-02-2024 MCH (RBC) [Entitic mass] 26.7 pg 26.7-34.0 [facility] MCHC Auto (RBC) [Mass/Vol]on 08-02-2024 MCHC (RBC) [Mass/Vol] 32.3 g/dL 29.9-35.2 [facility] MCV Auto (RBC) [Entitic vol] on 08-02-2024 MCV (RBC) [Entitic vol] 82.8 fL 81.0-99.0 [facility] Monocytes Auto (Bld) [#/Vol] on 08-02-2024 Monocytes (Bld) [#/Vol] 0.5 10 3/uL 0.3-0.8 [facility] Monocytes/100 WBC Auto (Bld) on 08-02-2024 Monocytes/100 WBC (Bld) 5.4 % 1.7-12.0 [facility] Neutrophils Auto (Bld) [#/Vo l]on 08-02-2024 Neutrophils (Bld) [#/Vol] 5.3 10 3/uL 1.4-6.5 [facility] Neutrophils/100 WBC Auto (Bl d)on 08-02-2024 Neutrophils/100 WBC (Bld) 58.8 % 43.0-75.0 [facility] No Panel Informationon 08-02 Eosinophils # (Auto) 0.1 10 3/uL 0.0-0.7 [facility] Immature Granulocyte # (Auto) 0.02 10 3/uL 0.00-0.03 [facility] Platelet mean volume Auto (B ld) [Entitic vol]on 08-02-2024 Platelet mean volume (Bld) [Entitic vol] 8.9 fL Low 9.5-13.5 [facility] Platelets Auto (Bld) [#/Vol] on 08-02-2024 Platelets (Bld) [#/Vol] 369 10 3/uL 150-450 [facility] RBC Auto (Bld) [#/Vol]on RBC (Bld) [#/Vol] 5.28 10 6/uL 4.20-5.40 [facility] ALL CBC WITH AUTO DIFFon BASOPHILS ABSOLUTE AUTO 0.1 [facility] Basophils/100 WBC (Bld) 0.6 % 0.2 - 2.0 % [facility] Eosinophils/100 WBC (Bld) 1.8 % 0.9 - 7.0 % [facility] Erythrocyte distribution width (RBC) [Ratio] 13.2 % 11.0 - 15.0 % [facility] Hematocrit (Bld) [Volume fraction] 40.5 % 36.0 - 48.0 % [facility] Hemoglobin (Bld) [Mass/Vol] 13.1 g/dL 12.0 - 16.0 g/dL [facility] IMMATURE GRANULOCYTES ABS AUTO 0.02 [facility] Immature granulocytes/100 WBC (Bld) 0.2 % 0.0 - 0.5 % [facility] Interpretation and review of laboratory results Abnormal [facility] LYMPHOCYTES ABSOLUTE AUTO 2.7 [facility] Lymphocytes/100 WBC (Bld) 30.8 % 20.5 - 60.0 % [facility] MCH (RBC) [Entitic mass] 26.6 pg Low 26.7 - 34.0 pg [facility] MCHC (RBC) [Mass/Vol] 32.3 g/dL 29.9 - 35.2 g/dL [facility] MCV (RBC) [Entitic vol] 82.3 fL 81.0 - 99.0 fL [facility] MONOCYTES ABSOLUTE AUTO 0.6 [facility] Monocytes/100 WBC (Bld) 6.6 % 1.7 - 12.0 % [facility] NEUTROPHILS ABSOLUTE AUTO 5.3 [facility] Neutrophils/100 WBC (Bld) 60 % 43.0 - 75.0 % [facility] Platelet mean volume (Bld) [Entitic vol] 9.1 fL Low 9.5 - 13.5 fL [facility] EO # 0.2 [facility] PLT [address] [facility] RBC 4.92 [facility] WBC 8.8 [facility] Basophils Auto (Bld) [#/Vol] on 07-23-2024 Basophils (Bld) [#/Vol] 0.1 10 3/uL 0.0-0.1 [facility] Basophils/100 WBC Auto (Bld) on 07-23-2024 Basophils/100 WBC (Bld) 0.6 % 0.2-2.0 [facility] [facility] ECG 12-LEADon 07-23-2024 [place] [address] Electrocardiograph Report Signed Patient: KARLENE ALFARO MR#: [id number] : 1990 Acct:[id number] Age/Sex: 34 / F ADM Date: 07/23/24 Loc: [facility] Attending Dr: Brent Roland D.O. Ordering Physician: Brent Roland D.O. 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 Measurements Intervals [place] Rate: 71 P: 33 HI: 148 QRS: 42 QRSD: 82 T: 30 QT: 389 QTc: 424 Interpretive Statements SINUS RHYTHM POSSIBLE RIGHT VENTRICULAR CONDUCTION DELAY [RSR (QR) IN V1/V2] Borderline ECG Compared to ECG 05/02/2023 11:46:38 Sinus tachycardia no longer present Right-axis deviation no longer present Electronically Signed On 07-23-2024 11:53:48 EDT by CHUY SHABAZZ M.D. Dictated By: CHUY SHABAZZ Signed By: 07/23/24 1154 DD/ 1129 TD/TT: Senior Director Creative Services: [facility] Radiology, Demetri andrew MD - 07/23/2024 [place] [address] Electrocardiograph Report Signed Patient: KARLENE ALFARO MR#: [id number] : 1990 Acct:[id number] Age/Sex: 34 / F ADM Date: 07/23/24 Loc: PST Attending Dr: Brent Roland D.O. Ordering Physician: Brent Roland D.O. 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 Measurements Intervals [place] Rate: 71 P: 33 HI: 148 QRS: 42 QRSD: 82 T: 30 QT: 389 QTc: 424 Interpretive Statements SINUS RHYTHM POSSIBLE RIGHT VENTRICULAR CONDUCTION DELAY [RSR (QR) IN V1/V2] Borderline ECG Compared to ECG 05/02/2023 11:46:38 Sinus tachycardia no longer present Right-axis deviation no longer present Electronically Signed On 07-23-2024 11:53:48 EDT by CHUY SHABAZZ M.D. Dictated By: CHUY SHABAZZ Signed By: 07/23/24 1154 DD/ 1129 TD/TT: Senior Director Creative Services: [facility] Radiology Study observation (narrative) [facility] ECG 12-LEADOrdered By: [employer] logist Radiology on 07-23-2024 [facility] Work Phone: Eosinophils/100 WBC Auto (Bl d)on 07-23-2024 Eosinophils/100 WBC (Bld) 1.8 % 0.9-7.0 [facility] Erythrocyte distribution wid th Auto (RBC) [Ratio]on 07-23-2024 Erythrocyte distribution width (RBC) [Ratio] 13.2 % 11.0-15.0 [facility] Estimated glomerular filtrat ion rate (GFR) non- Americanon 07-23-2024 GFR/1.73 sq M.predicted among non-blacks MDRD (S/P/Bld) [Vol rate/Area] mL/min/{1.73_m2} >=60 mL/min/1.7 3m 2 [facility] Globulin Calc (S) [Mass/Vol] on 07-23-2024 Globulin (S) [Mass/Vol] 3.6 g/dL [facility] Hematocrit Auto (Bld) [Volum e fraction]on 07-23-2024 Hematocrit (Bld) [Volume fraction] 40.5 % 36.0-48.0 [facility] Hemoglobin [Mass/volume] in Bloodon 07-23-2024 Hemoglobin (Bld) [Mass/Vol] 13.1 g/dL 12.0-16.0 [facility] Laboratory - Chemistry and C hemistry - challengeon 07-23-2024 Albumin [Mass/Vol] 3.5 g/dL 3.4-5.0 [facility] ALP [Catalytic activity/Vol] 70 U/L 46-116 [facility] ALT [Catalytic activity/Vol] 37 U/L 14-59 [facility] AST [Catalytic activity/Vol] 15 U/L 15-37 [facility] Bilirubin [Mass/Vol] 0.3 mg/dL 0.2-1.0 [facility] Calcium [Mass/Vol] 8.6 mg/dL 8.5-10.1 [facility] Chloride [Moles/Vol] 105 mmol/L 98-107 [facility] CO2 [Moles/Vol] 26.9 mmol/L 21.0-32.0 [facility] Creatinine [Mass/Vol] 0.83 mg/dL 0.55-1.02 [facility] GFR/1.73 sq M.predicted MDRD (S/P/Bld) [Vol rate/Area] mL/min/{1.73_m2} >=60 mL/min/1.7 3m 2 [facility] Glucose [Mass/Vol] 88 mg/dL 74-106 [facility] Potassium [Moles/Vol] 4.3 mmol/L 3.5-5.1 [facility] Protein [Mass/Vol] 7.1 g/dL 6.4-8.2 [facility] Sodium [Moles/Vol] 138 mmol/L 136-145 [facility] Urea nitrogen [Mass/Vol] 14.0 mg/dL 7.0-18.0 [facility] Urea nitrogen/Creatinine [Mass ratio] 16.9 mg/mg [facility] Laboratory - Hematology and Cell countson 07-23-2024 Immature granulocytes/100 WBC (Bld) 0.2 % 0.0-0.5 [facility] Leukocytes [#/volume] correc jocelynn for nucleated erythrocytes in Blood by Automated counon 07-23-2024 WBC corrected for nucl RBC Auto (Bld) [#/Vol] 8.8 10 3/uL 4.0-11.0 [facility] Lymphocytes Auto (Bld) [#/Vo l]on 07-23-2024 Lymphocytes (Bld) [#/Vol] 2.7 10 3/uL 1.2-3.8 [facility] Lymphocytes/100 WBC Auto (Bl d)on 07-23-2024 Lymphocytes/100 WBC (Bld) 30.8 % 20.5-60.0 [facility] MCH Auto (RBC) [Entitic mass ]on 07-23-2024 MCH (RBC) [Entitic mass] 26.6 pg Low 26.7-34.0 [facility] MCHC Auto (RBC) [Mass/Vol]on 07-23-2024 MCHC (RBC) [Mass/Vol] 32.3 g/dL 29.9-35.2 [facility] MCV Auto (RBC) [Entitic vol] on 07-23-2024 MCV (RBC) [Entitic vol] 82.3 fL 81.0-99.0 [facility] Monocytes Auto (Bld) [#/Vol] on 07-23-2024 Monocytes (Bld) [#/Vol] 0.6 10 3/uL 0.3-0.8 [facility] Monocytes/100 WBC Auto (Bld) on 07-23-2024 Monocytes/100 WBC (Bld) 6.6 % 1.7-12.0 [facility] Neutrophils Auto (Bld) [#/Vo l]on 07-23-2024 Neutrophils (Bld) [#/Vol] 5.3 10 3/uL 1.4-6.5 [facility] Neutrophils/100 WBC Auto (Bl d)on 07-23-2024 Neutrophils/100 WBC (Bld) 60.0 % 43.0-75.0 [facility] No Panel Informationon 07-23 Eosinophils # (Auto) 0.2 10 3/uL 0.0-0.7 [facility] Immature Granulocyte # (Auto) 0.02 10 3/uL 0.00-0.03 [facility] Platelet mean volume Auto (B ld) [Entitic vol]on 07-23-2024 Platelet mean volume (Bld) [Entitic vol] 9.1 fL Low 9.5-13.5 [facility] Platelets Auto (Bld) [#/Vol] on 07-23-2024 Platelets (Bld) [#/Vol] 380 10 3/uL 150-450 [facility] RBC Auto (Bld) [#/Vol]on RBC (Bld) [#/Vol] 4.92 10 6/uL 4.20-5.40 [facility] Serum or plasma albumin/glob ulin mass ratioon 07-23-2024 Albumin/Globulin [Mass ratio] 1.0 {ratio} [facility] Serum or plasma anion gap de terminationon 07-23-2024 Anion gap [Moles/Vol] 10.4 mmol/L Fi [facility] RECURRENT VAGINITIS (HTRX)on 07-11-2024 ATOPOBIUM VAGINAE 30.718 Abnormal [facility] ATOPOBIUM VAGINAE Detected Abnormal [facility] BVAB 2,3 (BACTERIAL VAGINOSIS ASSOCIATED BACTERIA 2, 3); MOBILUNCUS SPP 0 [facility] BVAB 2,3 (BACTERIAL VAGINOSIS ASSOCIATED BACTERIA 2, 3); MOBILUNCUS SPP Not detected [facility] DARIA ALBICANS, PARAPSILOSIS, TROPICALIS 0 [facility] DARIA ALBICANS, PARAPSILOSIS, TROPICALIS Not detected [facility] DARIA GLABRATA 0 [facility] DARIA GLABRATA Not detected [facility] DARIA KRUSEI 0 [facility] DARIA KRUSEI Not detected [facility] CHLAMYDIA TRACHOMATIS 0 [facility] CHLAMYDIA TRACHOMATIS Not detected [facility] GARDNERELLA VAGINALIS 0 [facility] GARDNERELLA VAGINALIS Not detected [facility] Interpretation and review of laboratory results Abnormal [facility] MEGASPHAERA (TYPES 1, 2) 0 [facility] MEGASPHAERA (TYPES 1, 2) Not detected [facility] MYCOPLASMA GENITALIUM 0 [facility] MYCOPLASMA GENITALIUM Not detected N [facility] NEISSERIA GONORRHOEAE 0 [facility] NEISSERIA GONORRHOEAE Not detected N [facility] TRICHOMONAS VAGINALIS 0 [facility] TRICHOMONAS VAGINALIS Not detected N [facility] [place] Urinalysis macro (dipstick) panel (U)on 07-10-2024 Bilirubin, UA Negative Negative - 4(70) +++ mg/dL [facility] Blood, UA Negative Negative - 50 Arnulfo/mcL [facility] Clarity, UA Clear [facility] Color, UA Yellow [facility] Glucose, UA Negative Negative - 1999(110) ++++ mg/dL [facility] Interpretation and review of laboratory results Normal [facility] Ketones, UA Negative Negative - 160(16) ++++ mg/dL [facility] Leukocytes, UA Negative Negative - 500+++ Corrina/mcL [facility] Nitrite, UA Negative Negative - Positive [facility] pH, UA 7 5 - 9 [facility] Protein, UA Negative Negative - 1999(20) ++++ mg/dL [facility] Spec Grav, UA 1.025 1 - 1.03 [facility] Urobilinogen, UA 0.2 0.2 - 12 mg/dL [facility] US PELVIS W/ TRANSVAGINALon 07-03-2024 [place] [address] Ultrasound Report Signed Patient: KARLENE ALFARO MR#: [id number] : 1990 Acct:[id number] Age/Sex: 34 / F ADM Date: 07/03/24 Loc: US Attending Dr: Brent Roland D.O. Ordering Physician: Brent Roland D.O. Date of Service: 07/03/24 Procedure(s): US pelvis w/ transvaginal Accession Number(s): [id number] cc: Surya Hodges M.D.; Brent Roland D.O. [address] [address] Patient Name: KARLENE ALFARO MRN: [id number] date: 1990 Sex: F Assigned Patient Location: US Current Patient Location: [place] Accession/Order Number: [id number] Exam Date: 07/03/2024 09:28 Report Date: 07/03/2024 [...] Jovan Martin M.D.07/03/2024 9:30 AM Dictation Location: [place] [address] Electronically authenticated by: [id number] Y Date: 07/03/2024 09:30 Dictated By: Jovan Martin D.O. Signed By: 07/03/2433 DD/ 9 TD/TT: Senior Director Creative Services: [facility] Radiology, Radiologi MD lorrie - 07/03/2024 [place] [address] Ultrasound Report Signed Patient: KARLENE ALAFRO MR#: [id number] : 1990 Acct:[id number] Age/Sex: 34 / F ADM Date: 07/03/24 Loc: US Attending Dr: Brent Roland D.O. Ordering Physician: Brent Roland D.O. Date of Service: 07/03/24 Procedure(s): US pelvis w/ transvaginal Accession Number(s): [id number] cc: Surya Hodges M.D.; Brent Roland D.O. [place] [address] Patient Name: KARLENE ALFARO MRN: [id number] date: 1990 Sex: F Assigned Patient Location: US Current Patient Location: [place] Accession/Order Number: [id number] Exam Date: 07/03/2024 09:28 Report Date: 07/03/2024 [...] Jovan Martin M.D.07/03/2024 9:30 AM Dictation Location: [place] [address] Electronically authenticated by: [id number] Y Date: 07/03/2024 09:30 Dictated By: Jovan Martin D.O. Signed By: 07/03/24 0933 DD/ TD/TT: Senior Director Creative Services: [facility] Radiology Study observation (narrative) [facility] US PELVIS W/ TRANSVAGINALOrd ered By: Radiologist Radiology on 07-03-2024 [facility] Work Phone: Basophils Auto (Bld) [#/Vol] on 09-07-2023 Basophils (Bld) [#/Vol] 0.0 10 3/uL 0.0-0.1 [facility] Basophils/100 WBC Auto (Bld) on 09-07-2023 Basophils/100 WBC (Bld) 0.5 % 0.2-2.0 [facility] Cholesterol in LDL Calc [Mas s/Vol]on 09-07-2023 Cholesterol in LDL [Mass/Vol] 149.0 mg/dL [facility] Comment on above: <100 mg/dl [id number] 0-129 mg/dl NEAR OR ABOVE [id number] mg/dl BORDERLINE [id number] mg/dl HIGH>190 mg/dl VERY HIGH Cholesterol in VLDL Calc [Ma ss/Vol]on 09-07-2023 Cholesterol in VLDL [Mass/Vol] 20.4 mg/dL [facility] Eosinophils/100 WBC Auto (Bl d)on 09-07-2023 Eosinophils/100 WBC (Bld) 1.6 % 0.9-7.0 [facility] Erythrocyte distribution wid th Auto (RBC) [Ratio]on 09-07-2023 Erythrocyte distribution width (RBC) [Ratio] 13.2 % 11.0-15.0 [facility] Estimated glomerular filtrat ion rate (GFR) non- Americanon 09-07-2023 GFR/1.73 sq M.predicted among non-blacks MDRD (S/P/Bld) [Vol rate/Area] mL/min/{1.73_m2} >=60 [facility] Globulin Calc (S) [Mass/Vol] on 09-07-2023 Globulin (S) [Mass/Vol] 3.8 g/dL [facility] Hematocrit Auto (Bld) [Volum e fraction]on 09-07-2023 Hematocrit (Bld) [Volume fraction] 41.8 % 36.0-48.0 [facility] Hemoglobin [Mass/volume] in Bloodon 09-07-2023 Hemoglobin (Bld) [Mass/Vol] 13.3 g/dL 12.0-16.0 [facility] Laboratory - Chemistry and C hemistry - challengeon 09-07-2023 Albumin [Mass/Vol] 3.9 g/dL 3.4-5.0 [facility] ALP [Catalytic activity/Vol] 70 U/L 46-116 [facility] ALT [Catalytic activity/Vol] 20 U/L 14-59 [facility] AST [Catalytic activity/Vol] 12 U/L Low 15-37 [facility] Bilirubin [Mass/Vol] 0.6 mg/dL 0.2-1.0 [facility] Calcium [Mass/Vol] 8.7 mg/dL 8.5-10.1 [facility] Chloride [Moles/Vol] 102 mmol/L 98-107 [facility] Cholesterol [Mass/Vol] 226 mg/dL High <=200 [facility] Cholesterol in HDL [Mass/Vol] 57 mg/dL 40-60 [facility] Comment on above: > or =60 mg/dl - LOW CARDIOVASCULAR RISK<40 mg/dl - HIGH CARDIOVASCULAR RISK CO2 [Moles/Vol] 27.2 mmol/L 21.0-32.0 [facility] Creatinine [Mass/Vol] 0.86 mg/dL 0.55-1.02 [facility] GFR/1.73 sq M.predicted MDRD (S/P/Bld) [Vol rate/Area] mL/min/{1.73_m2} >=60 [facility] Glucose [Mass/Vol] 89 mg/dL 74-106 [facility] Potassium [Moles/Vol] 4.0 mmol/L 3.5-5.1 [facility] Protein [Mass/Vol] 7.7 g/dL 6.4-8.2 [facility] Sodium [Moles/Vol] 139 mmol/L 136-145 [facility] Triglyceride [Mass/Vol] 102 mg/dL <=150 [facility] Urea nitrogen [Mass/Vol] 9.0 mg/dL 7.0-18.0 [facility] Urea nitrogen/Creatinine [Mass ratio] 10.5 mg/mg [facility] Laboratory - Hematology and Cell countson 09-07-2023 Immature granulocytes/100 WBC (Bld) 0.2 % 0.0-0.5 [facility] Leukocytes [#/volume] correc jocelynn for nucleated erythrocytes in Blood by Automated counon 09-07-2023 WBC corrected for nucl RBC Auto (Bld) [#/Vol] 8.0 10 3/uL 4.0-11.0 [facility] Lymphocytes Auto (Bld) [#/Vo l]on 09-07-2023 Lymphocytes (Bld) [#/Vol] 2.4 10 3/uL 1.2-3.8 [facility] Lymphocytes/100 WBC Auto (Bl d)on 09-07-2023 Lymphocytes/100 WBC (Bld) 29.7 % 20.5-60.0 [facility] MCH Auto (RBC) [Entitic mass ]on 09-07-2023 MCH (RBC) [Entitic mass] 26.3 pg Low 26.7-34.0 [facility] MCHC Auto (RBC) [Mass/Vol]on 09-07-2023 MCHC (RBC) [Mass/Vol] 31.8 g/dL 29.9-35.2 [facility] MCV Auto (RBC) [Entitic vol] on 09-07-2023 MCV (RBC) [Entitic vol] 82.6 fL 81.0-99.0 [facility] Monocytes Auto (Bld) [#/Vol] on 09-07-2023 Monocytes (Bld) [#/Vol] 0.4 10 3/uL 0.3-0.8 [facility] Monocytes/100 WBC Auto (Bld) on 09-07-2023 Monocytes/100 WBC (Bld) 5.5 % 1.7-12.0 [facility] Neutrophils Auto (Bld) [#/Vo l]on 09-07-2023 Neutrophils (Bld) [#/Vol] 5.0 10 3/uL 1.4-6.5 [facility] Neutrophils/100 WBC Auto (Bl d)on 09-07-2023 Neutrophils/100 WBC (Bld) 62.5 % 43.0-75.0 [facility] No Panel Informationon 09-06 Eosinophils # (Auto) 0.1 10 3/uL 0.0-0.7 [facility] Immature Granulocyte # (Auto) 0.02 10 3/uL 0.00-0.03 [facility] Platelet mean volume Auto (B ld) [Entitic vol]on 09-07-2023 Platelet mean volume (Bld) [Entitic vol] 9.4 fL Low 9.5-13.5 [facility] Platelets Auto (Bld) [#/Vol] on 09-07-2023 Platelets (Bld) [#/Vol] 381 10 3/uL 150-450 [facility] RBC Auto (Bld) [#/Vol]on RBC (Bld) [#/Vol] 5.06 10 6/uL 4.20-5.40 [facility] Serum or plasma albumin/glob ulin mass ratioon 09-07-2023 Albumin/Globulin [Mass ratio] 1.0 {ratio} [facility] Serum or plasma anion gap de terminationon 09-07-2023 Anion gap [Moles/Vol] 13.8 mmol/L [facility] Serum or plasma total choles terol/high density lipoprotein (HDL) cholesterol mass linwood 09-07-2023 Cholesterol.total/Chol esterol in HDL [Mass ratio] 4.0 {ratio} [facility] Comment on above: 3.3 - 4.4 LOW RISK4. 4 - 7.1 AVERAGE RISK7.1 - 11.0 MODERATE RISK>11.0 HIGH RISK Basophils Auto (Bld) [#/Vol] on 05-02-2023 Basophils (Bld) [#/Vol] 0.1 10 3/uL 0.0-0.1 [facility] Basophils/100 WBC Auto (Bld) on 05-02-2023 Basophils/100 WBC (Bld) 0.4 % 0.2-2.0 [facility] Eosinophils/100 WBC Auto (Bl d)on 05-02-2023 Eosinophils/100 WBC (Bld) 0.1 % 0.9-7.0 [facility] Erythrocyte distribution wid th Auto (RBC) [Ratio]on 05-02-2023 Erythrocyte distribution width (RBC) [Ratio] 13.1 % 11.0-15.0 [facility] Estimated glomerular filtrat ion rate (GFR) non- Americanon 05-02-2023 GFR/1.73 sq M.predicted among non-blacks MDRD (S/P/Bld) [Vol rate/Area] mL/min/{1.73_m2} >=60 [facility] Hematocrit Auto (Bld) [Volum e fraction]on 05-02-2023 Hematocrit (Bld) [Volume fraction] 41.6 % 36.0-48.0 [facility] Hemoglobin [Mass/volume] in Bloodon 05-02-2023 Hemoglobin (Bld) [Mass/Vol] 13.6 g/dL 12.0-16.0 [facility] Laboratory - Chemistry and C hemistry - challengeon 05-02-2023 Calcium [Mass/Vol] 8.7 mg/dL 8.5-10.1 [facility] Chloride [Moles/Vol] 101 mmol/L 98-107 [facility] CO2 [Moles/Vol] 24.8 mmol/L 21.0-32.0 [facility] Creatinine [Mass/Vol] 0.89 mg/dL 0.55-1.02 [facility] GFR/1.73 sq M.predicted MDRD (S/P/Bld) [Vol rate/Area] mL/min/{1.73_m2} >=60 [facility] Glucose [Mass/Vol] 112 mg/dL 74-106 [facility] Potassium [Moles/Vol] 4.0 mmol/L 3.5-5.1 [facility] Sodium [Moles/Vol] 137 mmol/L 136-145 [facility] Urea nitrogen [Mass/Vol] 5.0 mg/dL 7.0-18.0 [facility] Urea nitrogen/Creatinine [Mass ratio] 5.6 mg/mg [facility] Laboratory - Hematology and Cell countson 05-02-2023 Immature granulocytes/100 WBC (Bld) 0.3 % 0.0-0.5 [facility] Laboratory - Microbiology an d Antimicrobial susceptibilityon 05-02-2023 S. pyogenes Ag Ql (Unsp spec) Positive [facility] SARS-CoV-2 (COVID-19) RNA LEO+probe Ql (Unsp spec) Negative NEGATIVE [facility] Comment on above: This test [...] diagnosis of Covid-19 under section 564(b)(1) [facility] [place] 360bbb-3(b)(1), unless the declaration isterminated or authorization is revoked sooner. Leukocytes [#/volume] correc jocelynn for nucleated erythrocytes in Blood by Automated counon 05-02-2023 WBC corrected for nucl RBC Auto (Bld) [#/Vol] 12.4 10 3/uL 4.0-11.0 [facility] Lymphocytes Auto (Bld) [#/Vo l]on 05-02-2023 Lymphocytes (Bld) [#/Vol] 1.0 10 3/uL 1.2-3.8 [facility] Lymphocytes/100 WBC Auto (Bl d)on 05-02-2023 Lymphocytes/100 WBC (Bld) 7.9 % 20.5-60.0 [facility] MCH Auto (RBC) [Entitic mass ]on 05-02-2023 MCH (RBC) [Entitic mass] 27.9 pg 26.7-34.0 [facility] MCHC Auto (RBC) [Mass/Vol]on 05-02-2023 MCHC (RBC) [Mass/Vol] 32.7 g/dL 29.9-35.2 [facility] MCV Auto (RBC) [Entitic vol] on 05-02-2023 MCV (RBC) [Entitic vol] 85.2 fL 81.0-99.0 [facility] Monocytes Auto (Bld) [#/Vol] on 05-02-2023 Monocytes (Bld) [#/Vol] 0.8 10 3/uL 0.3-0.8 [facility] Monocytes/100 WBC Auto (Bld) on 05-02-2023 Monocytes/100 WBC (Bld) 6.3 % 1.7-12.0 [facility] Neutrophils Auto (Bld) [#/Vo l]on 05-02-2023 Neutrophils (Bld) [#/Vol] 10.5 10 3/uL 1.4-6.5 [facility] Neutrophils/100 WBC Auto (Bl d)on 05-02-2023 Neutrophils/100 WBC (Bld) 85.0 % 43.0-75.0 [facility] No Panel Informationon 05-02 Bedside Influenza Type A Antigen Negative [facility] Comment on above: Negative for Flu A p rotein antigen. Infection due to Flu Acannot be ruled out. Flu A antigen in the sample may bebelow the detection limit of the test. Bedside Influenza Type B Antigen Negative [facility] Comment on above: Negative for Flu B p rotein antigen. Infection due to Flu Bcannot be ruled out. Flu B antigen in the sample may bebelow the detection limit of the test. Eosinophils # (Auto) 0.0 10 3/uL 0.0-0.7 [facility] Immature Granulocyte # (Auto) 0.04 10 3/uL 0.00-0.03 [facility] Monoscreen Negative NEGATIVE [facility] Platelet mean volume Auto (B ld) [Entitic vol]on 05-02-2023 Platelet mean volume (Bld) [Entitic vol] 8.9 fL 9.5-13.5 [facility] Platelets Auto (Bld) [#/Vol] on 05-02-2023 Platelets (Bld) [#/Vol] 369 10 3/uL 150-450 [facility] RBC Auto (Bld) [#/Vol]on RBC (Bld) [#/Vol] 4.88 10 6/uL 4.20-5.40 [facility] Serum or plasma anion gap de terminationon 05-02-2023 Anion gap [Moles/Vol] 15.2 mmol/L [facility] Cytology Cervical or vaginal smear or scraping studyOrdered By: Kenyatta Salazar on 12-28-2022 [facility] Cholesterol [Mass/volume] in Serum or PlasmaOrdered By: Baljinder Polanco on 12-01-2022 Cholesterol [Mass/Vol] 214 mg/dL 140-200 [facility] Comment on above: Chol less than 200 m g/dl low riskChol 201-239 mg/dl borderline riskChol 240 mg/dl and greater high risk Cholesterol in LDL Calc [Mas s/Vol]Ordered By: Baljinder Polanco on 12-01-2022 Cholesterol in LDL [Mass/Vol] 132 mg/dL 0-100 [facility] Comment on above: LDL ATP III CLASSIFI CATIONLDL less than 100 mg/dL OptimalLDL 100-129 mg/dL Near or above optimalLDL 130-159 mg/dL Borderline highLDL 160-189 mg/dL HighLDL greater than 189 mg/dL Very high Cholesterol in VLDL Calc [Ma ss/Vol]Ordered By: Baljinder Polanco on 12-01-2022 Cholesterol in VLDL [Mass/Vol] 27 mg/dL [facility] Glucose mean value [Mass/vol ume] in Blood Estimated from glycated hemoglobinOrdered By: Baljinder Polanco on 12-01-2022 Average glucose Estimated from glycated hemoglobin (Bld) [Mass/Vol] 120 mg/dL [facility] Hemoglobin A1c percentageOrd ered By: Baljinder Polanco on 12-01-2022 HbA1c (Bld) [Mass fraction] 5.8 % 4.3-5.6 [facility] Comment on above: Increased risk for d iabetes: 5.7 - 6.4diabetes: >6.4glycemic control for adults with diabetes: <7.0 Serum or plasma high density lipoprotein (HDL) cholesterol measurementOrdered By: Baljinder Polanco on 12-01-2022 Cholesterol in HDL [Mass/Vol] 54 mg/dL 23-92 [facility] Comment on above: HDL CHOL ATP-III CLA SSIFICATION Cardiovascular RiskHDL > or equal to 60 mg/dL LOWHDL < 40 mg/dL HIGH Serum or plasma total choles terol/high density lipoprotein (HDL) cholesterol mass ratOrdered By: Baljinder Polanco on 12-01-2022 Cholesterol.total/Chol esterol in HDL [Mass ratio] 4.0 {ratio} <5.0 [facility] Triglyceride [Mass/volume] i n Serum or PlasmaOrdered By: Baljinder Polanco on 12-01-2022 Triglyceride [Mass/Vol] 139 mg/dL 0-149 [facility] Comment on above: TRIG ATP [...] <= 0.01 ng/mL [Mass/Vol] 27.1 pg/mL 0.0-15.0 [facility] Activated partial thrombopla stin time (aPTT) in platelet poor plasma by coagulation aOrdered By: Marcio Steven on 11-30-2022 aPTT Coag (PPP) [Time] 32.4 s 25.1-36.5 [facility] Comment on above: A hematocrit value g reater than 55% may lead to inaccurate results in coagulation testing. Patients having hematocrit values >55% require a special collection tube for coagulation studies. Please contact the laboratory at [phone] for redraw instructions. Alanine aminotransferase [En zymatic activity/volume] in Serum or PlasmaOrdered By: Marcio Steven on 11-30-2022 ALT [Catalytic activity/Vol] 16 U/L 7-52 [facility] Albumin [Mass/volume] in Ser um or Plasma by Bromocresol green (BCG) dye binding methoOrdered By: Marcio Steven on 11-30-2022 Albumin BCG dye [Mass/Vol] 4.4 g/dL 3.5-5.7 [facility] Alkaline phosphatase [Enzyma tic activity/volume] in Serum or PlasmaOrdered By: Marcio Steven on 11-30-2022 ALP [Catalytic activity/Vol] 73 U/L 34-104 [facility] Aspartate aminotransferase [ Enzymatic activity/volume] in Serum or PlasmaOrdered By: Marcio Steven on 11-30-2022 AST [Catalytic activity/Vol] 11 U/L 13-39 [facility] Basic Metabolic Panelon 11-12 Calcium [Mass/Vol] 9.9082241 mg/dL Normal 8.6-10 .3 mg/dL [facility] [employer] Other CO2 [Moles/Vol] 23.13997414 mmol/L Normal 21.0-3 1.0 mmol/L [employer] Other Creatinine [Mass/Vol] 0.53614459 mg/dL Normal 0. 60-1.20 mg/dL [facility] [employer] Other GFR/1.73 sq M.predicted MDRD (S/P/Bld) [Vol rate/Area] mL/min/{1.73_m2} [facility] [employer] Other Potassium [Moles/Vol] 4.16359676 mmol/L Normal 3 .5-5.1 mmol/L [facility] [employer] Other Basic Metabolic PanelOrdered By: Marcio Steven on 11-30-2022 Chloride [Moles/Vol] 104 mmol/L 98-107 [facility] Glucose [Mass/Vol] 77 mg/dL 70-100 [facility] Comment on above: ADA recommended refe rence rangeRandom Glucose Reference Range is dependent on time and content of last meal. Glucose of more than 200 mg/dL in a nonstressed, ambulatory subject supports the diagnosis of Diabetes Mellitus. Sodium [Moles/Vol] 138 mmol/L 136-145 [facility] Urea nitrogen [Mass/Vol] 9 mg/dL 7-25 [facility] Basophils Auto (Bld) [#/Vol] Ordered By: Marcio Steven on 11-30-2022 Basophils (Bld) [#/Vol] 0.1 10*3/uL 0.0-0.2 [facility] Basophils/100 WBC Auto (Bld) Ordered By: Marcio Steven on 11-30-2022 Basophils/100 WBC (Bld) 0.8 % . [facility] Bilirubin Test strip Ql (U)O rdered By: Marcio Steven on 11-30-2022 Bilirubin Ql (U) Negative Negative [facility] Bilirubin.direct [Mass/volum e] in Serum or PlasmaOrdered By: Marcio Steven on 11-30-2022 Bilirubin.direct [Mass/Vol] 0.00 mg/dL 0.03-0.18 [facility] Comment on above: If the DBIL is less than 0.1, IBIL is not able to becalculated. Bilirubin.total [Mass/volume ] in Serum or PlasmaOrdered By: Marcio Steven on 11-30-2022 Bilirubin [Mass/Vol] 0.9 mg/dL 0.3-1.0 [facility] COVID-19 Detected/Not Detect edOrdered By: Marcio Steven on 11-30-2022 SARS-CoV-2 (COVID-19) RNA LEO+non-probe Ql (Nph) Not detected Not Detecte [facility] Comment on above: This is a duplicate RP2.1 COVID (PCR) result to be used for statistical tracking purpose only. Calcium [Mass/volume] in Ser um or PlasmaOrdered By: Marcio Steven on 11-30-2022 Calcium [Mass/Vol] 9.5 mg/dL 8.6-10.3 [facility] Carbon dioxide, total [Moles /volume] in Serum or PlasmaOrdered By: Marcio Steven on 11-30-2022 CO2 [Moles/Vol] 23.9 mmol/L 21.0-31.0 [facility] Color Auto (U)Ordered By: Baljeet Steven on 11-30-2022 Color (U) Yellow Yellow [facility] Complete Blood Count Auto Di ffon 11-30-2022 Basophils (Bld) [#/Vol] 0.378510861 10*3/uL Normal 0.0-0.2 10*3/uL [facility] [facility] Other Basophils/100 WBC (Bld) 0.800 % . % [employer] [facility] Other Eosinophils (Bld) [#/Vol] 0.109829708 10*3/uL Normal 0.0-0.45 10*3/uL [facility] [facility] Other Eosinophils/100 WBC (Bld) 0.900 % . % [facility] [facility] Other Erythrocyte distribution width (RBC) [Ratio] 14.300 % Normal 11.9-15.3 % [employer] [facility] Other Hematocrit (Bld) [Volume fraction] 41.000 % Normal 34.0-46.4 % [facility] Other Hemoglobin (Bld) [Mass/Vol] 13.613055 g/dL Normal 11.8-15.4 g/dL [facility] Other Lymphocytes (Bld) [#/Vol] 2.174586794 10*3/uL Normal 1.00-4.8 10*3/uL [facility] Other Lymphocytes/100 WBC (Bld) 32.300 % . % [facility] [facility] Other MCH (RBC) [Entitic mass] 27.0000 pg Normal 24.7-34.3 pg [facility] [facility] Other MCV (RBC) [Entitic vol] 81.0000 fL Normal 80-100 fL [employer] Other Monocytes (Bld) [#/Vol] 0.280916830 10*3/uL Normal 0.0-0.8 10*3/uL [facility] [facility] Other Monocytes/100 WBC (Bld) 6.800 % . % [employer] [facility] Other Neutrophils (Bld) [#/Vol] 4.795987223 10*3/uL Normal 1.8-7.7 10*3/uL [facility] Other Neutrophils/100 WBC (Bld) 59.200 % . % [facility] Other Platelet mean volume (Bld) [Entitic vol] 7.2000 fL Normal 6.3-10.7 fL [facility] [facility] Other WBC (Bld) [#/Vol] 8.500780422 10*3/uL Normal 3.8 -11.6 10*3/uL [facility] Other Complete Blood Count Auto Diff 8.2 10*3/uL Normal 3.8-11.6 10*3/uL [facility] Other Complete Blood Count Auto Diff 33.3 g/dL Normal 32.0-35.0 g/dL [facility] Other Complete Blood Count Auto Diff 0.2 /100{WBC} Normal 0-0.5 /100{WBC} [facility] Other Complete Blood Count Auto Di ffOrdered By: Marcio Steven on 11-30-2022 Platelets (Bld) [#/Vol] 368 10*3/uL 150-450 [facility] RBC (Bld) [#/Vol] 5.06 10*6/uL 3.60-5.00 [facility] Creatine kinase [Enzymatic a ctivity/volume] in Serum or PlasmaOrdered By: Marcio Steven on 11-30-2022 CK [Catalytic activity/Vol] 18 U/L 30-223 [facility] Creatinine [Mass/volume] in Serum or PlasmaOrdered By: Marcio Steven on 11-30-2022 Creatinine [Mass/Vol] 0.83 mg/dL 0.60-1.20 [facility] Eosinophils Auto (Bld) [#/Vo l]Ordered By: Marcio Steven on 11-30-2022 Eosinophils (Bld) [#/Vol] 0.1 10*3/uL 0.0-0.45 [facility] Eosinophils/100 WBC Auto (Bl d)Ordered By: Marcio Steven on 11-30-2022 Eosinophils/100 WBC (Bld) 0.9 % . [facility] Erythrocyte distribution wid th Auto (RBC) [Ratio]Ordered By: Marcio Steven on 11-30-2022 Erythrocyte distribution width (RBC) [Ratio] 14.3 % 11.9-15.3 [facility] Fibrin D-dimer [Presence] in Platelet poor plasma by Latex agglutinationOrdered By: Marcio Steven on 11-30-2022 Fibrin D-dimer LA Ql (PPP) < 200 ng/mL 0-243 [facility] Comment on above: The reference [...] coagulation studies. Please contact the laboratory at [phone] for redraw instructions. Free T4 (Free Thyroxine)on 0 11-30-2022 Free T4 [Mass/Vol] 1.16858270 ng/dL High 0.61- 1.12 ng/dL [facility] Other Globulin Calc (S) [Mass/Vol] Ordered By: Marcio Steven on 11-30-2022 Globulin (S) [Mass/Vol] 3.2 g/dL [facility] Glucose Glucometer (BldC) [M ass/Vol]Ordered By: Baljinder Polanco on 11-30-2022 Glucose [Mass/Vol] 100 mg/dL [facility] Comment on above: Random Glucose Refer ence Range is dependent on time and content of last meal. Glucose of more than 200 mg/dL in a nonstressed, ambulatory subject supports the diagnosis of Diabetes Mellitus. Hematocrit Auto (Bld) [Volum e fraction]Ordered By: Marcio Steven on 11-30-2022 Hematocrit (Bld) [Volume fraction] 41.0 % 34.0-46.4 [facility] Hemoglobin [Mass/volume] in BloodOrdered By: Marcio Steven on 11-30-2022 Hemoglobin (Bld) [Mass/Vol] 13.7 g/dL 11.8-15.4 [facility] INR in Platelet poor plasma by Coagulation assayOrdered By: Marcio Steven on 11-30-2022 INR Coag (PPP) [Relative time] 1.1 {INR} [facility] Comment on above: INR Therapeutic [...] Ketones (U) [Mass/Vol] Trace Negative [facility] Leukocytes [#/volume] correc jocelynn for nucleated erythrocytes in Blood by Automated counOrdered By: Marcio Steven on 11-30-2022 WBC corrected for nucl RBC Auto (Bld) [#/Vol] 8.2 10*3/uL 3.8-11.6 [facility] Lymphocytes Auto (Bld) [#/Vo l]Ordered By: Marcio Steven on 11-30-2022 Lymphocytes (Bld) [#/Vol] 2.7 10*3/uL 1.00-4.8 [facility] Lymphocytes/100 WBC Auto (Bl d)Ordered By: Marcio Steven on 11-30-2022 Lymphocytes/100 WBC (Bld) 32.3 % . [facility] MCH Auto (RBC) [Entitic mass ]Ordered By: Marcio Steven on 11-30-2022 MCH (RBC) [Entitic mass] 27.0 pg 24.7-34.3 [facility] MCHC Auto (RBC) [Mass/Vol]Or dered By: Marcio Steven on 11-30-2022 MCHC (RBC) [Mass/Vol] 33.3 g/dL 32.0-35.0 [facility] MCV Auto (RBC) [Entitic vol] Ordered By: Marcio Steven on 11-30-2022 MCV (RBC) [Entitic vol] 81.0 fL 80-100 [facility] Magnesium [Mass/volume] in S abdifatah or PlasmaOrdered By: Marcio Steven on 11-30-2022 Magnesium [Mass/Vol] 1.9 mg/dL 1.9-2.7 [facility] Monocyte distribution width [Entitic volume] in Blood by AutomatedOrdered By: Marcio Steven on 11-30-2022 Monocyte distribution width Auto (Bld) [Entitic vol] 19.22 % 0.00-20.00 [facility] Monocytes Auto (Bld) [#/Vol] Ordered By: Marcio Steven on 11-30-2022 Monocytes (Bld) [#/Vol] 0.6 10*3/uL 0.0-0.8 [facility] Monocytes/100 WBC Auto (Bld) Ordered By: Marcio Steven on 11-30-2022 Monocytes/100 WBC (Bld) 6.8 % . [facility] Natriuretic peptide B [Mass/ Vol]Ordered By: Marcio Steven on 11-30-2022 Natriuretic peptide B (Bld) [Mass/Vol] 13.0 pg/mL 5-100 [facility] Neutrophils Auto (Bld) [#/Vo l]Ordered By: Marcio Steven on 11-30-2022 Neutrophils (Bld) [#/Vol] 4.9 10*3/uL 1.8-7.7 [facility] Neutrophils/100 WBC Auto (Bl d)Ordered By: Marcio Steven on 11-30-2022 Neutrophils/100 WBC (Bld) 59.2 % . [facility] Nitrite Test strip Ql (U)Ord ered By: Marcio Steven on 11-30-2022 Nitrite Ql (U) Negative Negative [facility] No Panel InformationOrdered By: Marcio Steven on 11-30-2022 Estimated GFR (CKD-EPI) > 60.0 mL/Min [facility] Creatinine Clearance (Chem 114.08 [facility] Nucleated erythrocytes [Pres ence] in Blood by Automated countOrdered By: Marcio Steven on 11-30-2022 Nucleated RBC Auto Ql (Bld) 0.2 /100{WBC} 0-0.5 [facility] Platelet mean volume Auto (B ld) [Entitic vol]Ordered By: Marcio Steven on 11-30-2022 Platelet mean volume (Bld) [Entitic vol] 7.2 fL 6.3-10.7 [facility] Potassium [Moles/volume] in Serum or PlasmaOrdered By: Marcio Steven on 11-30-2022 Potassium [Moles/Vol] 4.1 mmol/L 3.5-5.1 [facility] Protein Auto test strip (U) [Mass/Vol]Ordered By: Marcio Steven on 11-30-2022 Protein (U) [Mass/Vol] Negative Negative [facility] Protein [Mass/volume] in Ser um or PlasmaOrdered By: Marcio Steven on 11-30-2022 Protein [Mass/Vol] 7.6 g/dL 6.4-8.9 [facility] Prothrombin time (PT)Ordered By: Marcio Steven on 11-30-2022 PT Coag (PPP) [Time] 12.5 s 9.0-12.9 [facility] Comment on above: A hematocrit value g reater than 55% may lead to inaccurate results in coagulation testing. Patients having hematocrit values >55% require a special collection tube for coagulation studies. Please contact the laboratory at [phone] for redraw instructions. Respiratory pathogens DNA an d RNA panel - Nasopharynx by LEO with non-probe detectionOrdered By: Marcoi Steven on 11-30-2022 Respiratory pathogens DNA and RNA panel LEO+non-probe (Nph) [facility] Serum or plasma albumin/glob ulin mass ratioOrdered By: Marcio Steven on 11-30-2022 Albumin/Globulin [Mass ratio] 1.4 {ratio} [facility] Serum or plasma anion gap de terminationOrdered By: Marcio Steven on 11-30-2022 Anion gap [Moles/Vol] 14.2 mmol/L 6.0-15.0 [facility] Serum or plasma non-glucuron idated bilirubin measurement (mass/volume)Ordered By: Marcio Steven on 11-30-2022 Bilirubin.indirect [Mass/Vol] 0.9 mg/dL [facility] Specific gravity Auto test s trip (U) [Rel density]Ordered By: Marcio Steven on 11-30-2022 Specific gravity (U) [Rel density] 1.013 1.001-1.03 0 [facility] Thyroid Stimulating Hormoneo n 11-30-2022 TSH Qn 0.28628911957 m[IU]/L Low 0.45-5 .33 u[iU]/mL [facility] Other Thyrotropin [Units/volume] i n Serum or PlasmaOrdered By: Marcio Steven on 11-30-2022 TSH Qn 0.03 m[IU]/L 0.45-5.33 [facility] Thyroxine (T4) free [Mass/vo lume] in Serum or PlasmaOrdered By: Marcio Steven on 11-30-2022 Free T4 [Mass/Vol] 1.56 ng/dL 0.61-1.12 [facility] Triiodothyronine (T3) Free [ Mass/volume] in Serum or PlasmaOrdered By: Marcio Steven on 11-30-2022 Free T3 [Mass/Vol] 3.89 pg/mL 2.50-3.90 [facility] Urine clarity by refractomet ry automatedOrdered By: Marcio Steven on 11-30-2022 Clarity Refractometry automated (U) Clear Clear [facility] Urine glucose measurement by automated test strip (mass/volume)Ordered By: Marcio Steven on 11-30-2022 Glucose Auto test strip (U) [Mass/Vol] Normal mg/dL Normal [facility] Urine hemoglobin detection b y automated test stripOrdered By: Marcio Steven on 11-30-2022 Hemoglobin Auto test strip Ql (U) Negative Negative [facility] Urine leukocyte esterase det ection by automated test stripOrdered By: Marcio Steven on 11-30-2022 Leukocyte esterase Auto test strip Ql (U) Negative Negative [facility] Urobilinogen Auto test strip (U) [Mass/Vol]Ordered By: Marcio Steven on 11-30-2022 Urobilinogen (U) [Mass/Vol] Normal mg/dL Normal [facility] WBC Auto (Bld) [#/Vol]Ordere d By: Marcio Steven on 11-30-2022 WBC (Bld) [#/Vol] 8.2 10*3/uL 3.8-11.6 [facility] pH Auto test strip (U)Ordere d By: Marcio Steven on 11-30-2022 pH (U) [pH] 5.0-9.0 [facility] CORTISOL FREE, SERUMon 06-17 Cortisol, Free Dialysis, LCMS 0.649 ug/dL Normal [facility] Comment on above: Result Comment: Thes e tests were developed and their performance characteristics determined by [employer]. They have not been cleared or approved by the Food and Drug Administration. Reference Range: 8 AM 0.10 - 1.20 4 PM 0.042 - 0.872 Performed By: #### R [email or web address] #### [facility] [address] [place] [address] Dr. Dimple Parsons CBC AUTO DIFFon 06-16-2022 BASO # 0.1 103/ul Normal 0.0-0.1 [facility] Comment on above: Performed By: #### R [id number] #### [facility] [address] [place] [address] Dr. Dimple Parsons Basophils/100 WBC (Bld) 0.6 % Normal 0.2-2.0 [facility] Comment on above: Performed By: #### R [id number] #### [facility] [address] [place] [address] Dr. Dimple Parsons EO # 0.4 103/ul Normal 0.0-0.7 [facility] Comment on above: Performed By: #### R [id number] #### [facility] [address] [place] [address] Dr. Dimple Parsons Eosinophils/100 WBC (Bld) 4.0 % Normal 0.9-7.0 [facility] Comment on above: Performed By: #### R [id number] #### [facility] [address] [place] [address] Dr. Dimple Parsons Erythrocyte distribution width (RBC) [Ratio] 13.8 % Normal 11.0-15.0 [facility] Comment on above: Performed By: #### R [id number] #### [facility] [address] [place] [address] Dr. Dimple Parsons Hematocrit (Bld) [Volume fraction] 39.8 % Normal 36.0-48.0 [facility] Comment on above: Performed By: #### R [id number] #### [facility] [address] [place] [address] Dr. Dimple Parsons Hemoglobin (Bld) [Mass/Vol] 12.9 g/dL Normal 12.0-16.0 [facility] Comment on above: Performed By: #### R [id number] #### [facility] [address] [place] [address] Dr. Dimple Parsons IG # 0.02 10e3/ul Normal 0.00-0.03 [facility] Comment on above: Performed By: #### R [id number] #### [facility] [address] [place] [address] Dr. Dimple Parsons IG % 0.2 % Normal 0.0-0.5 [facility] Comment on above: Performed By: #### R [id number] #### [facility] [address] [place] [address] Dr. Dimple Parsons LYMPH # 3.1 103/ul Normal 1.2-3.8 [facility] Comment on above: Performed By: #### R [id number] #### [facility] [address] [place] [address] Dr. Dimple Parsons Lymphocytes/100 WBC (Bld) 33.5 % Normal 20.5-60.0 [facility] Comment on above: Performed By: #### R [id number] #### [facility] [address] [place] [address] Dr. Dimple Parsons MANUAL DIFF REQ NO Normal [facility] Comment on above: Performed By: #### R [id number] #### [facility] [address] [place] [address] Dr. Dimple Parsons MCH (RBC) [Entitic mass] 26.1 pg Critically low 26.7-34.0 [facility] Comment on above: Performed By: #### R [id number] #### [facility] [address] [place] [address] Dr. Dimple Parsons MCHC (RBC) [Mass/Vol] 32.4 g/dL Normal 29.9-35.2 [facility] Comment on above: Performed By: #### R [id number] #### [facility] [address] [place] [address] Dr. Dimple Parsons MCV (RBC) [Entitic vol] 80.4 fL Critically low 81.0-99.0 [facility] Comment on above: Performed By: #### R [id number] #### [facility] [address] [place] [address] Dr. Dimple Parsons MONO # 0.5 103/ul Normal 0.3-0.8 [facility] Comment on above: Performed By: #### R [id number] #### [facility] [address] [place] [address] Dr. Dimple Parsons Monocytes/100 WBC (Bld) 5.2 % Normal 1.7-12.0 [facility] Comment on above: Performed By: #### R [id number] #### [facility] [address] [place] [address] Dr. Dimple Parsons NEUT # 5.2 103/ul Normal 1.4-6.5 [facility] Comment on above: Performed By: #### R [id number] #### [facility] [address] [place] [address] Dr. Dimple Parsons Neutrophils/100 WBC (Bld) 56.5 % Normal 43.0-75.0 [facility] Comment on above: Performed By: #### R [id number] #### [facility] [address] [place] [address] Dr. Dimple Parsons Platelet mean volume (Bld) [Entitic vol] 8.7 fL Critically low 9.5-13.5 [facility] Comment on above: Performed By: #### R [id number] #### [facility] [address] [place] [address] Dr. Dimple Parsons PLT 376 103/ul Normal 150-450 [facility] Comment on above: Performed By: #### R [id number] #### [facility] [address] [place] [address] Dr. Dimple Parsons RBC 4.95 106/ul Normal 4.20-5.40 [facility] Comment on above: Performed By: #### R [id number] #### [facility] [address] [place] [address] Dr. Dimple Parsons WBC 9.3 103/ul Normal 4.0-11.0 [facility] Comment on above: Performed By: #### R [email or web address] #### [facility] [address] [address] [address] Dimple Parsons TESTOSTERONE, FREE,DIRECT, T OTALon 06-10-2022 Free Testosterone(Direct) 1.6 pg/mL Normal 0.0-4.[address] [facility] Comment on above: Result Comment: Perf ormed at: BN Performed By: #### C BC #### [facility] [address] [place] [address] Dr. Dimple Parsons Testosterone [Mass/Vol] 22 ng/dL Normal 8-60 [facility] Comment on above: Result Comment: Perf ormed at: CB Performed By: #### C BC #### [facility] [address] [place] [address] Dr. Dimple Parsons ESTROGENon 2022 Estrogens, Total 413 pg/mL Normal [facility] Comment on above: Result Comment: Prep ubertal < 40 Female Cycle: 1-10 Days 16 - 328 11-20 Days 34 - 501 21-30 Days 48 - 350 Post-Menopausal 40 - 244 Performed By: #### D HEASUL #### [facility] [address] [place] [address] Dr. Dimple Parsons SEROTONINon 2022 Serotonin, Serum 20 ng/mL Critically low 31-207 [facility] Comment on above: Performed By: #### S EROTON #### [facility] [address] [place] [address] Dr. Dimple Parsons REVERSE T3on 06-08-2022 Reverse T3, Serum 15.6 ng/dL Normal 9.2-24.1 [facility] Comment on above: Result Comment: This test was developed and its performance characteristics determined by [facility]. It has not been cleared or approved by the Food and Drug Administration. Performed By: #### R [email or web address] #### [facility] [address] [place] [address] Dr. Dimple Parsons VIT D 1 25 DIHYDROXYon 06-07 Calcitriol(1,25 di-OH Vit D) 12.2 pg/mL Critically low 24.8-81.5 [facility] Comment on above: Performed By: #### V [id number] #### [facility] [address] [place] [address] Dr. Dimple Parsons C-PEPTIDE, SERUMon 3 C-Peptide, Serum 3.3 ng/mL Normal 1.1-4.4 [facility] Comment on above: Result Comment: C-Pe ptide reference interval is for fasting patients. Performed By: #### R [id number] #### [facility] [address] [place] [address] Dr. Dimple Parsons DHEA-SULFATEon 06-05-2022 DHEA-Sulfate 154.0 ug/dL Normal 84.8-378.[address] [facility] Comment on above: Performed By: #### D SURINDER #### [facility] [address] [place] [address] Dr. Dimple Parsons ESTRADIOLon 06-05-2022 Estradiol 117.0 pg/mL Normal [facility] Comment on above: Result Comment: Adul t Female: Follicular phase 12.5 - 166.0 Ovulation phase 85.8 - 498.0 Luteal phase 43.8 - 211.0 Postmenopausal <6.0 - 54.7 1st trimester 215.0 - >4300.0 [facility] ECLIA methodology Performed By: #### R [id number] #### [facility] [address] [place] [address] Dr. Dimple Parsons INSULINon 06-05-2022 Insulin 13.1 uIU/mL Normal 2.6-24.9 [facility] Comment on above: Performed By: #### C BC #### [facility] [address] [place] [address] Dr. Dimple Parsons PROGESTERONEon 06-05-2022 Progesterone 4.8 ng/mL Normal [facility] Comment on above: Result Comment: Foll icular phase 0.1 - 0.9 Luteal phase 1.8 - 23.9 Ovulation phase 0.1 - 12.0 First trimester 11.0 - 44.3 Second trimester 25.4 - 83.3 Third trimester 58.7 - 214.0 Postmenopausal 0.0 - 0.1 Performed By: #### D SURINDER #### [facility] [address] [place] [address] Dr. Dimple Parsons SEX HORMONE-BINDING GLOBULIN on 06-05-2022 Sex Horm Binding Glob, Serum 40.7 nmol/L Normal 24.6-122.0 [facility] Comment on above: Performed By: #### Jocelyne BC #### [facility] [address] [place] [address] Dr. Dimple Parsons T3, TOTAL (TRIIODOTHYRONINE) on 06-05-2022 T3, TOTAL 89 ng/dL Normal 71-180 [facility] Comment on above: Performed By: #### Rob [email or web address] #### [facility] [address] [place] [address] Dr. Dimple Parsons THYROID PEROXIDASE ABon 05-13 Thyroid Peroxidase (TPO) Ab 12 IU/mL Normal 0-34 [facility] Comment on above: Performed By: #### Inder CADENA #### [facility] [address] [place] [address] Dr. Dimple Parsons FERRITINon 06-04-2022 Ferritin [Mass/Vol] 193.0 ng/mL Critically high 6.2-137.0 [facility] Comment on above: Performed By: ###Rick CADENA #### [facility] [address] [place] [address] Dr. Dimple Parsons FREE T3on 06-04-2022 FREE T3 2.24 pg/mlL Normal 2.18-3.98 [facility] Comment on above: Performed By: #### Rob [email or web address] #### [facility] [address] [place] [address] Dr. Dimple Parsons FREE T4on 06-04-2022 Free T4 [Mass/Vol] 1.14 ng/dL Normal 0.76-1.46 [facility] Comment on above: Performed By: #### Inder CADENA #### [facility] [address] [place] [address] Dr. Dimple Parsons GLUCOSE BLOODon 06-04-2022 Glucose [Mass/Vol] 92 mg/dL Normal 74-106 [facility] Comment on above: Performed By: #### R [id number] #### [facility] [address] [place] [address] Dr. Dimple Parsons GLYCOHEMOGLOBIN A1Con 2022 ADA RECOMMENDATION SEE BELOW Normal [facility] Comment on above: Result Comment: ADA RECOMMENDED LIMIT 4.0 - 6.0 ADA THERAPEUTIC TARGET < 7.0 ACTION SUGGESTED > 7.0 Performed By: #### A 1C #### [facility] [address] [place] [address] Dr. Dimple Parsons Glucose [Mass/Vol] 100 mg/dL Normal [facility] Comment on above: Performed By: #### A 1C #### [facility] [address] [place] [address] Dr. Dimple Parsons HbA1c (Bld) [Mass fraction] 5.1 % Normal 4.5-6.2 [facility] Comment on above: Performed By: #### A 1C #### [facility] [address] [place] [address] Dr. Dimple Parsons T4on 06-04-2022 T4 [Mass/Vol] 8.60 ug/dL Normal 4.80-13.[address] [facility] Comment on above: Performed By: #### R [id number] #### [facility] [address] [place] [address] Dr. Dimple Parsons TSHon 06-04-2022 TSH 0.442 uIU/mL Normal 0.358-3.74 0 [facility] Comment on above: Performed By: #### R EVRT3 #### [facility] [address] [place] [address] Dr. Dimple Parsons US PELVIS AND TRANSVAGon [...] KAYLA GORDON Date: 2022-05-25 13:36 Normal [facility] XR KUB 1 VIEWon 05-21-2022 [...] DAVID ALDANA Date: 2022-05-21 06:53 Normal [facility] CBC AUTO DIFFon 05-08-2022 BASO # 0.0 103/ul Normal 0.0-0.1 [facility] Comment on above: Performed By: #### C BC #### [facility] [address] [address] [address] Dimple aPrsons Basophils/100 WBC (Bld) 0.3 % Normal 0.2-2.0 [facility] Comment on above: Performed By: #### C BC #### [facility] [address] [address] [address] Dimple Parsons EO # 0.2 103/ul Normal 0.0-0.7 [facility] Comment on above: Performed By: #### C BC #### [facility] [address] [address] [address] Dimple Parsons Eosinophils/100 WBC (Bld) 1.3 % Normal 0.9-7.0 [facility] Comment on above: Performed By: #### C BC #### [facility] [address] [place] [address] Dr. Dimple Parsons Erythrocyte distribution width (RBC) [Ratio] 13.9 % Normal 11.0-15.0 [facility] Comment on above: Performed By: #### C BC #### [facility] [address] [place] [address] Dr. Dimple Parsons Hematocrit (Bld) [Volume fraction] 38.8 % Normal 36.0-48.0 [facility] Comment on above: Performed By: #### C BC #### [facility] [address] [place] [address] Dr. Dimple Parsons Hemoglobin (Bld) [Mass/Vol] 12.8 g/dL Normal 12.0-16.0 [facility] Comment on above: Performed By: #### C BC #### [facility] [address] [place] [address] Dr. Dimple Parsons IG # 0.15 10e3/ul Critically high 0.00-0.03 [facility] Comment on above: Performed By: #### C BC #### [facility] [address] [place] [address] Dr. Dimple Parsons IG % 1.3 % Critically high 0.0-0.5 [facility] Comment on above: Performed By: #### C BC #### [facility] [address] [place] [address] Dr. Dimple Parsons LYMPH # 3.4 103/ul Normal 1.2-3.8 [facility] Comment on above: Performed By: #### C BC #### [facility] [address] [place] [address] Dr. Dimple Parsons Lymphocytes/100 WBC (Bld) 28.9 % Normal 20.5-60.0 [facility] Comment on above: Performed By: #### C BC #### [facility] [address] [place] [address] Dr. Dimple Parsons MANUAL DIFF REQ NO Normal [facility] Comment on above: Performed By: #### C BC #### [facility] [address] [place] [address] Dr. Dimple Parsons MCH (RBC) [Entitic mass] 25.9 pg Critically low 26.7-34.0 [facility] Comment on above: Performed By: #### C BC #### [facility] [address] [address] [address] Dimple Parsons MCHC (RBC) [Mass/Vol] 33.0 g/dL Normal 29.9-35.2 [facility] Comment on above: Performed By: #### C BC #### [facility] [address] [address] [address] Dimple Parsons MCV (RBC) [Entitic vol] 78.5 fL Critically low 81.0-99.0 [facility] Comment on above: Performed By: #### C BC #### [facility] [address] [place] [address] Dr. Dimple Parsons MONO # 0.7 103/ul Normal 0.3-0.8 [facility] Comment on above: Performed By: #### C BC #### [facility] [address] [place] [address] Dr. Dimple Parsons Monocytes/100 WBC (Bld) 6.2 % Normal 1.7-12.0 [facility] Comment on above: Performed By: #### C BC #### [facility] [address] [place] [address] Dr. Dimple Parsons NEUT # 7.3 103/ul Critically high 1.4-6.5 [facility] Comment on above: Performed By: #### C BC #### [facility] [address] [place] [address] Dr. Dimple Parsons Neutrophils/100 WBC (Bld) 62.0 % Normal 43.0-75.0 [facility] Comment on above: Performed By: #### C BC #### [facility] [address] [place] [address] Dr. Dimple Parsons Platelet mean volume (Bld) [Entitic vol] 9.1 fL Critically low 9.5-13.5 [facility] Comment on above: Performed By: #### C BC #### [facility] [address] [place] [address] Dr. Dimple Parsons PLT 426 103/ul Normal 150-450 [facility] Comment on above: Performed By: #### C BC #### [facility] [address] [address] [address] Dimple Parsons RBC 4.94 106/ul Normal 4.20-5.40 [facility] Comment on above: Performed By: #### C BC #### [facility] [id number] Dimple Parsons WBC 11.9 103/ul Critically high 4.0-11.0 [facility] Comment on above: Performed By: #### C BC #### [facility] [id number] Dimple Parsons CT ABD/PELVIS WO CONon [...] outpatient ultrasound. Note: Exam was submitted to [facility] operations Incidental Findings call que, to call the above findings to the patient's primary care provider nonemergently. Electronically authenticated by: RERE CARLISLE Date: 2022-05-08 05:24 Normal [facility] PROF 14(COMP METB)on 05-08- 023 Albumin [Mass/Vol] 4.0 g/dL Normal 3.4-5.0 [facility] Comment on above: Performed By: #### R [id number] #### [facility] [address] [place] [address] Dr. Dimple Parsons Albumin/Globulin [Mass ratio] 1.1 {ratio} Normal [facility] Comment on above: Performed By: #### R [id number] #### [facility] [address] [address] [address] Dimple Parsons ALP [Catalytic activity/Vol] 76 U/L Normal 46-116 [facility] Comment on above: Performed By: #### R [id number] #### [facility] [address] [address] [address] Dimple Parsons ALT [Catalytic activity/Vol] 20 U/L Normal 14-59 [facility] Comment on above: Performed By: #### R [id number] #### [facility] [address] [address] [address] Dimple Parsons Anion gap [Moles/Vol] 14.9 mmol/L Normal [facility] Comment on above: Performed By: #### R [id number] #### [facility] [address] [address] [address] Dimple Parsons AST [Catalytic activity/Vol] 19 U/L Normal 15-37 [facility] Comment on above: Performed By: #### R [id number] #### [facility] [address] [address] [address] Dimple Parsons Bilirubin [Mass/Vol] 0.6 mg/dL Normal 0.2-1.0 [facility] Comment on above: Performed By: #### R [id number] #### [facility] [address] [place] [address] Dr. Dimple Parsons Calcium [Mass/Vol] 9.0 mg/dL Normal 8.5-10.1 [facility] Comment on above: Performed By: #### R [id number] #### [facility] [address] [place] [address] Dr. Dimple Parsons Chloride [Moles/Vol] 103 mmol/L Normal 98-107 [facility] Comment on above: Performed By: #### R [id number] #### [facility] [address] [place] [address] Dr. Dimple Parsons CO2 [Moles/Vol] 25.5 mmol/L Normal 21.0-32.0 [facility] Comment on above: Performed By: #### R [id number] #### [facility] [address] [place] [address] Dr. Dimple Parsons Creatinine [Mass/Vol] 0.75 mg/dL Normal 0.55-1.02 [facility] Comment on above: Performed By: #### R [id number] #### [facility] [address] [place] [address] Dr. Dimple Parsons EGFR-AF FRENCH >60 Normal >=60 [facility] Comment on above: Performed By: #### R [id number] #### [facility] [address] [address] [address] Dimple Parsons EGFR-NON AF FRENCH >60 Normal >=60 [facility] Comment on above: Performed By: #### R [id number] #### [facility] [address] [address] [address] Dimple Parsons Globulin (S) [Mass/Vol] 3.8 g/dL Normal [facility] Comment on above: Performed By: #### R [id number] #### [facility] [address] [address] [address] Dimple Parsons Glucose [Mass/Vol] 107 mg/dL Critically high 74-[address] [facility] Comment on above: Performed By: #### R EVRT3 #### [facility] [address] [place] [address] Dr. Dimple Parsons Potassium [Moles/Vol] 3.4 mmol/L Critically low 3.5-5.1 [facility] Comment on above: Performed By: #### R [id number] #### [facility] [address] [address] [address] Dimple Parsons Protein [Mass/Vol] 7.8 g/dL Normal 6.4-8.2 [facility] Comment on above: Performed By: #### R EVRT3 #### [facility] [address] [place] [address] Dr. Dimple Parsons Sodium [Moles/Vol] 140 mmol/L Normal 136-145 [facility] Comment on above: Performed By: #### R EVRT3 #### [facility] [address] [place] [address] Dr. Dimple Parsons Urea nitrogen [Mass/Vol] 7.0 mg/dL Normal 7.0-18.0 [facility] Comment on above: Performed By: #### R [id number] #### [facility] [address] [address] [address] Dimple Parsons Urea nitrogen/Creatinine [Mass ratio] 9.3 mg/mg Normal [facility] Comment on above: Performed By: #### R [id number] #### [facility] [address] [place] [address] Dr. Dimple Parsons US PELVIS TRANSVAGon 023 [...] LEATHA GALVAN Date: 2022-05-08 08:57 Normal [facility] CBC AUTO DIFFon 01-13-2022 BASO # 0.1 103/ul Normal 0.0-0.1 [facility] Comment on above: Performed By: #### C BC #### [facility] [address] [place] [address] Dr. Dimple Parsons Basophils/100 WBC (Bld) 0.5 % Normal 0.2-2.0 [facility] Comment on above: Performed By: #### C BC #### [facility] [address] [place] [address] Dr. Dimple Parsons EO # 0.2 103/ul Normal 0.0-0.7 [facility] Comment on above: Performed By: #### C BC #### [facility] [address] [place] [address] Dr. Dimple Parsons Eosinophils/100 WBC (Bld) 2.3 % Normal 0.9-7.0 [facility] Comment on above: Performed By: #### C BC #### [facility] [address] [place] [address] Dr. Dimple Parsons Erythrocyte distribution width (RBC) [Ratio] 13.2 % Normal 11.0-15.0 [facility] Comment on above: Performed By: #### C BC #### [facility] [address] [place] [address] Dr. Dimple Parsons Hematocrit (Bld) [Volume fraction] 40.5 % Normal 36.0-48.0 [facility] Comment on above: Performed By: #### C BC #### [facility] [address] [place] [address] Dr. Dimple Parsons Hemoglobin (Bld) [Mass/Vol] 13.0 g/dL Normal 12.0-16.0 [facility] Comment on above: Performed By: #### C BC #### [facility] [address] [place] [address] Dr. Dimple Parsons IG # 0.01 10e3/ul Normal 0.00-0.03 [facility] Comment on above: Performed By: #### C BC #### [facility] [address] [place] [address] Dr. Dimple Parsons IG % 0.1 % Normal 0.0-0.5 [facility] Comment on above: Performed By: #### C BC #### [facility] [address] [place] [address] Dr. Dimple Parsons LYMPH # 2.6 103/ul Normal 1.2-3.8 [facility] Comment on above: Performed By: #### C BC #### [facility] [address] [place] [address] Dr. Dimple Parsons Lymphocytes/100 WBC (Bld) 27.4 % Normal 20.5-60.0 [facility] Comment on above: Performed By: #### C BC #### [facility] [address] [place] [address] Dr. Dimple Parsons MANUAL DIFF REQ NO Normal [facility] Comment on above: Performed By: #### C BC #### [facility] [address] [place] [address] Dr. Dimple Parsons MCH (RBC) [Entitic mass] 26.4 pg Critically low 26.7-34.0 [facility] Comment on above: Performed By: #### C BC #### [facility] [address] [address] [address] Dimple Parsons MCHC (RBC) [Mass/Vol] 32.1 g/dL Normal 29.9-35.2 [facility] Comment on above: Performed By: #### C BC #### [facility] [address] [address] [address] Dimple Parsons MCV (RBC) [Entitic vol] 82.2 fL Normal 81.0-99.0 [facility] Comment on above: Performed By: #### C BC #### [facility] [address] [address] [address] Dimple Parsons MONO # 0.6 103/ul Normal 0.3-0.8 [facility] Comment on above: Performed By: #### C BC #### [facility] [address] [address] [address] Dimple Parsons Monocytes/100 WBC (Bld) 6.2 % Normal 1.7-12.0 [facility] Comment on above: Performed By: #### C BC #### [facility] [address] [place] [address] Dr. Dimple Parsons NEUT # 6.1 103/ul Normal 1.4-6.5 [facility] Comment on above: Performed By: #### C BC #### [facility] [address] [address] [address] Dimple Parsons Neutrophils/100 WBC (Bld) 63.5 % Normal 43.0-75.0 [facility] Comment on above: Performed By: #### C BC #### [facility] [address] [address] [address] Dimple Parsons Platelet mean volume (Bld) [Entitic vol] 9.0 fL Critically low 9.5-13.5 [facility] Comment on above: Performed By: #### C BC #### [facility] [address] [address] [address] Dimple Parsons PLT 346 103/ul Normal 150-450 [facility] Comment on above: Performed By: #### C BC #### [facility] [address] [address] [address] Dimple Parsons RBC 4.93 106/ul Normal 4.20-5.40 [facility] Comment on above: Performed By: #### C BC #### [facility] [address] [place] [address] Dr. Dimple Parsons WBC 9.5 103/ul Normal 4.0-11.0 [facility] Comment on above: Performed By: #### C BC #### [facility] [address] [place] [address] Dr. Dimple Parsons FREE T4on 01-13-2022 Free T4 [Mass/Vol] 1.39 ng/dL Normal 0.76-1.46 [facility] Comment on above: Performed By: #### C BC #### [facility] [address] [place] [address] Dr. Dimple Parsons PROF CHEM 8 (BAS METB)on Anion gap [Moles/Vol] 10.4 mmol/L Normal [facility] Comment on above: Performed By: #### Inder CADENA #### [facility] [address] [place] [address] Dr. Dimple Parsons Calcium [Mass/Vol] 9.0 mg/dL Normal 8.5-10.1 [facility] Comment on above: Performed By: #### Inder CADENA #### [facility] [address] [place] [address] Dr. Dimple Parsons Chloride [Moles/Vol] 101 mmol/L Normal 98-107 [facility] Comment on above: Performed By: #### Inder CADENA #### [facility] [address] [place] [address] Dr. Dimple Parsons CO2 [Moles/Vol] 29.3 mmol/L Normal 21.0-32.0 [facility] Comment on above: Performed By: #### Inder CADENA #### [facility] [address] [place] [address] Dr. Dimple Parsons Creatinine [Mass/Vol] 0.79 mg/dL Normal 0.55-1.02 [facility] Comment on above: Performed By: #### Inder CADENA #### [facility] [address] [address] [address] Dimple Parsons EGFR-AF FRENCH >60 Normal >=60 [facility] Comment on above: Performed By: #### Inder CADENA #### [facility] [address] [address] [address] Dimple Parsons EGFR-NON AF FRENCH >60 Normal >=60 [facility] Comment on above: Performed By: #### Inder CADENA #### [facility] [address] [address] [address] Dimple Parsons Glucose [Mass/Vol] 92 mg/dL Normal 74-106 [facility] Comment on above: Performed By: #### Inder CADENA #### [facility] [address] [address] [address] Dimple Parsons Potassium [Moles/Vol] 3.7 mmol/L Normal 3.5-5.1 [facility] Comment on above: Performed By: #### Inder CADENA #### [facility] [address] [address] [address] Dimple Parsons Sodium [Moles/Vol] 137 mmol/L Normal 136-145 [facility] Comment on above: Performed By: #### Inder CADENA #### [facility] [address] [address] [address] Dimple Parsons Urea nitrogen [Mass/Vol] 11.0 mg/dL Normal 7.0-18.0 [facility] Comment on above: Performed By: #### Inder CADENA #### [facility] [address] [address] [address] Dimple Parsons Urea nitrogen/Creatinine [Mass ratio] 13.9 mg/mg Normal [facility] Comment on above: Performed By: #### Inder CADENA #### [facility] [address] [address] [address] Dimple Parsons PROTIMEon 01-13-2022 INR Coag (PPP) [Relative time] 1.04 {INR} Normal [facility] Comment on above: Performed By: #### P TT, PT #### [facility] [address] [place] [address] Dr. Dimple Parsons INR GUIDELINES SEE BELOW [facility] Comment on above: Result Comment: VISHAL RED INR: 2.0 - 3.0 CONDITIONS NOT LISTED BELOW 2.5 - 3.5 FOR PROSTHETIC HEART VALVE REPLACEMENT 2.5 - 3.5 RECURRENT THROMBOSIS Performed By: #### P TT, PT #### [facility] [address] [place] [address] Dr. Dimple Parsons PT Coag (PPP) [Time] 11.2 s Normal 9.0-11.6 [facility] Comment on above: Performed By: #### P TT, PT #### [facility] [address] [place] [address] Dr. Dimple Parsons PTTon 01-13-2022 aPTT Coag (Bld) [Time] 35.1 s Normal 22.3-36.2 [facility] Comment on above: Performed By: #### P TT, PT #### [facility] [address] [place] [address] Dr. Dimple Parsons TSHon 01-13-2022 TSH 1.528 uIU/mL Normal 0.358-3.74 0 [facility] Comment on above: Performed By: #### T SH #### [facility] [address] [place] [address] Dr. Dimple Parsons PAP ACOG PANEL 2: 30 to 65on 12-26-2021 . . Normal [facility] Comment on above: Result Comment: Perf ormed at: WB Performed By: #### C BC #### [facility] [address] [place] [address] Dr. Dimple Parsons Age Gdln ACOG Testing 30-65 [facility] Comment on above: Performed By: #### C BC #### [facility] [address] [place] [address] Dr. Dimple Parsons DIAGNOSIS: Comment Normal [facility] Comment on above: Result Comment: NEGA TIVE FOR INTRAEPITHELIAL LESION OR MALIGNANCY. Performed at: WB Performed By: #### C BC #### [facility] [address] [address] [address] Dimple Parsons HPV Aptima Negative Normal Negative [facility] Comment on above: Result Comment: This nucleic acid amplification test detects fourteen high-risk HPV types (16,18,31,33,35,39,45,51,52,56,58,59,66,68) without differentiation. Performed at: =G Performed By: #### C BC #### [facility] [address] [place] [address] Dr. Dimple Parsons Methodology: Comment Normal [facility] Comment on above: Result Comment: This liquid based ThinPrep(R) pap test was screened with the use of an image guided system. Performed at: WB Performed By: #### C BC #### [facility] [address] [place] [address] Dr. Dimple Parsons Note: Comment Normal [facility] Comment on above: Result Comment: The [...] WB Performed By: #### C BC #### [facility] [address] [place] [address] Dr. Dimple Parsons Performed by: Comment Normal [facility] Comment on above: Result Comment: Susan Hercules Animal Caretaker (ASCP) Performed at: WB Performed By: #### C BC #### [facility] [address] [place] [address] Dr. Dimple Parsons Specimen adequacy: Comment Normal [facility] Comment on above: Result Comment: Sati sfactory for evaluation. No endocervical component is identified. Performed at: WB Performed By: #### C BC #### [facility] [address] [place] [address] Dr. Dimple Parsons COVID Quick Testingon 2021 Result Negative [employer] Other Vital Signs Date Time Vital Sign Value Performing Clinician Facility 11-20-2024 10:04-0400 Diastolic blood pressure 93 mm[Hg] Nato Hawkins MD Work Phone: [facility] 11-20-2024 10:04-0400 Systolic blood pressure 133 mm[Hg] Nato Hawkins MD Work Phone: [facility] 10-09-2024 13:09-0400 Body mass index (BMI) [Ratio] 30.92 kg/m2 Brent Asuncion DO Work Phone: [facility] 10-09-2024 13:09-0400 Body weight 97.75 kg Brent Asuncion DO Work Phone: [facility] 10-09-2024 13:09-0400 Diastolic blood pressure 82 mm[Hg] Brent Asuncion DO Work Phone: [facility] 10-09-2024 13:09-0400 Systolic blood pressure 122 mm[Hg] Brent Asuncion DO Work Phone: [facility] 09-05-2024 13:46-0400 Body height 175.26 cm Snaiya Mays APRN Work Phone: [facility] 09-05-2024 13:46-0400 Body mass index (BMI) [Ratio] 31.3 kg/m2 Saniya Mays APRN Work Phone: [facility] 09-05-2024 13:46-0400 Body temperature 98.8 [degF] Saniya Mays APRN Work Phone: [facility] 09-05-2024 13:46-0400 Body weight 96.16 kg Saniya Mays APRN Work Phone: [facility] 09-05-2024 13:46-0400 Diastolic blood pressure 80 mm[Hg] Saniya Mays APRN Work Phone: [facility] [facility] 09-05-2024 13:46-0400 Systolic blood pressure 124 mm[Hg] Saniya Davon VAZQUEZ Work Phone: [facility] 08-14-2024 13:38-0400 Body mass index (BMI) [Ratio] 30.68 kg/m2 Yesica OSWADL Work Phone: [facility] 08-14-2024 13:38-0400 Body weight 96.98 kg Yesica Mcnair PA Work Phone: [facility] 08-14-2024 13:38-0400 Diastolic blood pressure 84 mm[Hg] Yesica Mcnair PA Work Phone: [facility] 08-14-2024 13:38-0400 Systolic blood pressure 122 mm[Hg] Yesica Mcnair PA Work Phone: [facility] 07-23-2024 09:36-0400 Body mass index (BMI) [Ratio] 30.71 kg/m2 Brent Asuncion DO Work Phone: [facility] 07-23-2024 09:36-0400 Body weight 97.07 kg Brent Asuncion DO Work Phone: [facility] 07-23-2024 09:36-0400 Diastolic blood pressure 72 mm[Hg] Brent Asuncion DO Work Phone: [facility] 07-23-2024 09:36-0400 Systolic blood pressure 122 mm[Hg] Brent Asuncion DO Work Phone: [facility] 07-10-2024 10:02-0400 Body mass index (BMI) [Ratio] 31.13 kg/m2 Brent Asuncion DO Work Phone: [facility] 07-10-2024 10:02-0400 Body weight 95.62 kg Brent Asuncion DO Work Phone: [facility] 07-10-2024 10:02-0400 Diastolic blood pressure 84 mm[Hg] Brent Asuncion DO Work Phone: [facility] 07-10-2024 10:02-0400 Systolic blood pressure 124 mm[Hg] Brent Roland DO Work Phone: [facility] 05-16-2024 10:18-0500 Body height 175.26 cm [facility] 05-16-2024 10:18-0500 Body mass index (BMI) [Ratio] 29.9 kg/m2 [facility] 05-16-2024 10:18-0500 Body temperature 97.2 [degF] [facility] 05-16-2024 10:18-0500 Body weight 92.07 kg [facility] 05-16-2024 10:18-0500 Diastolic blood pressure 82 mm[Hg] [facility] 05-16-2024 10:18-0500 Heart rate 106 /min [facility] 05-16-2024 10:18-0500 SaO2% (BldA) [Mass fraction] 98 % [facility] 05-16-2024 10:18-0500 Systolic blood pressure 122 mm[Hg] [facility] 03-15-2024 11:31-0500 Body height 175.26 cm [facility] 03-15-2024 11:31-0500 Body mass index (BMI) [Ratio] 31.3 kg/m2 [facility] 03-15-2024 11:31-0500 Body temperature 96.5 [degF] [facility] 03-15-2024 11:31-0500 Body weight 96.27 kg [facility] 03-15-2024 11:31-0500 Diastolic blood pressure 72 mm[Hg] [facility] 03-15-2024 11:31-0500 Heart rate 92 /min [facility] 03-15-2024 11:31-0500 SaO2% (BldA) [Mass fraction] 97 % [facility] 03-15-2024 11:31-0500 Systolic blood pressure 122 mm[Hg] [facility] 02-15-2024 13:04-0500 Body height 175.26 cm [facility] 02-15-2024 13:04-0500 Body mass index (BMI) [Ratio] 31.8 kg/m2 [facility] 02-15-2024 13:04-0500 Body temperature 97.3 [degF] [facility] 02-15-2024 13:04-0500 Body weight 97.63 kg [facility] 02-15-2024 13:04-0500 Diastolic blood pressure 80 mm[Hg] [facility] 02-15-2024 13:04-0500 Heart rate 114 /min [facility] 02-15-2024 13:04-0500 SaO2% (BldA) [Mass fraction] 98 % [facility] 02-15-2024 13:04-0500 Systolic blood pressure 122 mm[Hg] [facility] 12-02-2023 10:38-0400 Body height 175.26 cm [facility] 12-02-2023 10:38-0400 Body mass index (BMI) [Ratio] 31.3 kg/m2 [facility] 12-02-2023 10:38-0400 Body weight 96.16 kg [facility] 12-02-2023 10:38-0400 Diastolic blood pressure 90 mm[Hg] [facility] 12-02-2023 10:38-0400 Heart rate 81 /min [facility] 12-02-2023 10:38-0400 Systolic blood pressure 133 mm[Hg] [facility] 10-10-2023 11:23-0400 Body height 175.26 cm [facility] 10-10-2023 11:23-0400 Body mass index (BMI) [Ratio] 31.1 kg/m2 [facility] 10-10-2023 11:23-0400 Body weight 95.84 kg [facility] 10-10-2023 11:23-0400 Diastolic blood pressure 70 mm[Hg] [facility] 10-10-2023 11:23-0400 Heart rate 98 /min [facility] 10-10-2023 11:23-0400 SaO2% (BldA) [Mass fraction] 98 % [facility] 10-10-2023 11:23-0400 Systolic blood pressure 128 mm[Hg] [facility] 10-03-2023 14:50-0400 Body height 175.26 cm [facility] 10-03-2023 14:50-0400 Body mass index (BMI) [Ratio] 31.3 kg/m2 [facility] 10-03-2023 14:50-0400 Body weight 96.16 kg [facility] 10-03-2023 14:50-0400 Diastolic blood pressure 86 mm[Hg] [facility] 10-03-2023 14:50-0400 Heart rate 85 /min [facility] 10-03-2023 14:50-0400 Systolic blood pressure 125 mm[Hg] [facility] 09-07-2023 13:03-0400 Body height 175.26 cm [facility] 09-07-2023 13:03-0400 Body mass index (BMI) [Ratio] 31.1 kg/m2 [facility] 09-07-2023 13:03-0400 Body weight 95.7 kg [facility] 09-07-2023 13:03-0400 Diastolic blood pressure 62 mm[Hg] [facility] 09-07-2023 13:03-0400 Heart rate 61 /min [facility] 09-07-2023 13:03-0400 SaO2% (BldA) [Mass fraction] 97 % [facility] 09-07-2023 13:03-0400 Systolic blood pressure 102 mm[Hg] [facility] 06-17-2023 14:03-0400 Body height 175.26 cm [facility] 06-17-2023 14:03-0400 Body mass index (BMI) [Ratio] 31.6 kg/m2 [facility] 06-17-2023 14:03-0400 Body weight 97.12 kg [facility] 06-17-2023 14:03-0400 Diastolic blood pressure 92 mm[Hg] [facility] 06-17-2023 14:03-0400 Heart rate 109 /min [facility] 06-17-2023 14:03-0400 Systolic blood pressure 136 mm[Hg] [facility] 04-04-2023 14:15-0500 Body height 175.26 cm Surya Fontenot [facility] 04-04-2023 14:15-0500 Body mass index (BMI) [Ratio] 30.42 kg/m2 Surya Hodges Other [facility] [employer] Other 04-04-2023 14:15-0500 Body weight 93.44 kg Surya Hodges Other [facility] 04-04-2023 14:15-0500 Diastolic blood pressure 85 mm[Hg] Surya Hodges Other [facility] 04-04-2023 14:15-0500 Systolic blood pressure 120 mm[Hg] Surya Hodges Other [facility] 12-17-2022 08:30-0400 Body height 175.26 cm Surya Hodges Other [facility] Other 12-17-2022 08:30-0400 Body mass index (BMI) [Ratio] 29.5 kg/m2 Surya Hodges Other [facility] Other 12-17-2022 08:30-0400 Body weight 90.63 kg Surya Hodges Other [facility] Other 12-17-2022 08:30-0400 Diastolic blood pressure 85 mm[Hg] Surya Hodges Other [facility] Other 12-17-2022 08:30-0400 Systolic blood pressure 120 mm[Hg] Surya Hodges Other [facility] Other 12-01-2022 12:00-0400 Body temperature 97.6 [degF] MD Surya Hodges Work Phone: [facility] 12-01-2022 12:00-0400 Diastolic blood pressure 77 mm[Hg] MD Surya Hodges Work Phone: [facility] 12-01-2022 12:00-0400 Heart rate 89 /min MD Surya Hodges Work Phone: [facility] 12-01-2022 12:00-0400 Respiratory rate 20 /min MD Surya Hodges Work Phone: [facility] 12-01-2022 12:00-0400 SaO2% (BldA) [Mass fraction] 99 % MD Surya Hodges Work Phone: [facility] 12-01-2022 12:00-0400 Systolic blood pressure 116 mm[Hg] MD Surya Hodges Work Phone: [facility] 12-01-2022 05:51-0400 Body weight 89.4 kg MD Surya Hodges Work Phone: [facility] 11-30-2022 16:30-0400 Body height 175.26 cm MD Surya Hodges Work Phone: [facility] 11-29-2022 11:15-0400 Body height 175.26 cm Surya Hodges Other [facility] [employer] Other 11-29-2022 11:15-0400 Body mass index (BMI) [Ratio] 28.79 kg/m2 Surya Hodges Other [facility] Other 11-29-2022 11:15-0400 Body temperature 97.1 [degF] Surya Hodges Other [employer] Other 11-29-2022 11:15-0400 Body weight 88.45 kg Surya Hodges Other [employer] Other 11-29-2022 11:15-0400 Diastolic blood pressure 88 mm[Hg] Surya Hodges Other [employer] Other 11-29-2022 11:15-0400 SaO2% (BldA) [Mass fraction] 98 % Surya Hodges Other [employer] Other 11-29-2022 11:15-0400 Systolic blood pressure 124 mm[Hg] Surya Hodges Other [employer] Other 11-18-2022 08:30-0400 Body height 175.26 cm Surya Hodges Other [employer] Other 11-18-2022 08:30-0400 Body mass index (BMI) [Ratio] 28.59 kg/m2 Surya Hodges Other [employer] Other 11-18-2022 08:30-0400 Body weight 87.82 kg Surya Hodges Other [employer] Other 11-18-2022 08:30-0400 Diastolic blood pressure 89 mm[Hg] Surya Hodges Other [employer] Other 11-18-2022 08:30-0400 Systolic blood pressure 131 mm[Hg] Surya Hodges Other [employer] Other 11-05-2022 10:00-0400 Body height 175.26 cm Surya Hodges Other [employer] Other 11-05-2022 10:00-0400 Body mass index (BMI) [Ratio] 29.68 kg/m2 Surya Hodges Other [employer] Other 11-05-2022 10:00-0400 Body weight 91.17 kg Surya Hodges Other [employer] Other 11-05-2022 10:00-0400 Diastolic blood pressure 85 mm[Hg] Surya Hodges Other [employer] Other 11-05-2022 10:00-0400 Systolic blood pressure 134 mm[Hg] Surya Hodges Other [employer] Other 10-18-2022 08:30-0400 Body height 175.26 cm Surya Hodges Other [employer] Other 10-18-2022 08:30-0400 Body mass index (BMI) [Ratio] 28.94 kg/m2 Surya Hodges Other [employer] Other 10-18-2022 08:30-0400 Body weight 88.91 kg Surya Hodges Other [employer] Other 10-18-2022 08:30-0400 Diastolic blood pressure 89 mm[Hg] Surya Hodges Other [employer] Other 10-18-2022 08:30-0400 Systolic blood pressure 137 mm[Hg] Surya Hodges Other [employer] Other 09-09-2022 10:15-0400 Body height 175.26 cm Surya Hodges Other [employer] Other 09-09-2022 10:15-0400 Body mass index (BMI) [Ratio] 29.12 kg/m2 Surya Hodges Other [employer] Other 09-09-2022 10:15-0400 Body weight 89.45 kg Surya Hodges Other [employer] Other 09-09-2022 10:15-0400 Diastolic blood pressure 89 mm[Hg] Surya Hodges Other [employer] Other 09-09-2022 10:15-0400 Respiratory rate 12 /min Surya Hodges Other [facility] Other 09-09-2022 10:15-0400 Systolic blood pressure 132 mm[Hg] Surya Hodges Other [facility] Other 05-21-2022 10:01-0500 Blood Pressure Location Kamaljit AYALA [facility] 05-21-2022 10:01-0500 Diastolic blood pressure 80 mm[Hg] Kamaljit AYALA [facility] 05-21-2022 10:01-0500 Heart rate 85 /min Kamaljit AYALA [facility] 05-21-2022 10:01-0500 Systolic blood pressure 119 mm[Hg] Kamaljit AYALA [facility] 01-13-2022 08:36-0400 Blood Pressure Location SANIYA MANDEEP [facility] 01-13-2022 08:36-0400 Diastolic blood pressure 90 mm[Hg] SANIYA MANDEEP [facility] 01-13-2022 08:36-0400 Heart rate 91 /min SANIYA MANDEEP [facility] 01-13-2022 08:36-0400 Respiratory rate 16 /min SANIYA MANDEEP [facility] 01-13-2022 08:36-0400 Systolic blood pressure 134 mm[Hg] SANIYA MANDEEP [facility] 04-08-2021 15:30-0500 Body height 175.26 cm Treasure Quezada Other [employer] Other 04-08-2021 15:30-0500 Body mass index (BMI) [Ratio] 29.97 kg/m2 Treasure Quezada Other [employer] Other 04-08-2021 15:30-0500 Body temperature 96.6 [degF] Treasure Quezada Other [employer] Other 04-08-2021 15:30-0500 Body weight 92.08 kg Treasure Quezada Other [employer] Other 04-08-2021 15:30-0500 Respiratory rate 18 /min Treasure Quezada Other [employer] Other 04-08-2021 15:30-0500 SaO2% (BldA) [Mass fraction] 98 % Treasure Quezada Other [employer] Other Encounters Encounter Date Encounter Type Care Provider Facility Start: 01-21-2025 ambulatory Kamaljit Hannah ty:[facility] Start: 12-28-2024 ambulatory Kamaljit Hannah ty:[facility] Start: 12-13-2024 ambulatory Kamaljit Hannah ty:[id number] Start: 12-10-2024 ambulatory SURYA HODGES Facility :[facility] Start: 11-21-2024 End: 11-21-2024 ambulatory Nato Hawkins MD Work Phone: Urology Start: 11-20-2024 End: 11-20-2024 Patient encounter procedure Nato Hawkins MD Work Phone: Urology Comment on above: Flank pain (Primary Dx); Ureteral stricture; H/O: hysterectomy Start: 11-20-2024 End: 11-20-2024 ambulatory SURYA HODGES Facility:[facility] Start: 11-20-2024 ambulatory Kamaljit Harrisi ty:[id number] Start: 11-15-2024 End: 11-15-2024 ambulatory Kamaljit AYALA Facility:[id number] Start: 10-29-2024 End: 10-29-2024 Patient encounter procedure Kamaljit Ayala MD -[facility] Work Phone: Start: 10-29-2024 End: 10-29-2024 ambulatory Saniya Mays APRN Work Phone: [facility] Work Phone: Start: 10-09-2024 End: 10-09-2024 [...] Start: 10-09-2024 Non-patient / Non-visit Brent Asuncion -[facility] Work Phone: Start: 10-09-2024 End: 10-09-2024 ambulatory BRENT ASUNCION Not Available Start: 10-02-2024 End: 10-02-2024 ambulatory Kamaljit AYALA Facility:[facility] Start: 10-02-2024 End: 10-02-2024 Patient encounter procedure Kamaljit AYALA [facility] Start: 09-05-2024 End: 09-06-2024 ambulatory Saniya Davon VAZQUEZ Work Phone: [facility] Work Phone: Start: 09-05-2024 End: 09-05-2024 Patient encounter procedure Saniya Mays APRN [facility] Work Phone: Start: 08-23-2024 Non-patient / Non-visit Kamaljit romero MD -[facility] Work Phone: Start: 08-14-2024 [...] Start: 08-02-2024 Non-patient / Non-visit Brent Asuncion -[facility] Work Phone: Start: 08-02-2024 End: 08-02-2024 ambulatory Kamaljit AYALA Facility:[id number] Start: 07-23-2024 End: 07-23-2024 Bamboo flowsheet Brent Asuncion DO Work Phone: [facility] Start: 07-23-2024 End: 07-23-2024 Bamboo flowsheet Brent Asuncion DO Work Phone: [facility] Start: 07-23-2024 End: 07-23-2024 Clinisync Result Encounter Brent Asuncion DO Work Phone: [facility] External Department Unsolicited Start: 07-23-2024 Non-patient / Non-visit Brent Asuncion -[facility] Work Phone: Start: 07-23-2024 End: 07-23-2024 ambulatory BRENT ASUNCION Not Available Start: 07-23-2024 End: 07-23-2024 Office outpatient visit 15 minutes Brent Asuncion DO Work Phone: [facility] Comment on above: Pre-op evaluation; Pelvic pain in female; Pain of ovary; H/O: hysterectomy Start: 07-23-2024 End: 07-23-2024 Preprocedural examination done Brent Asuncion DO Work Phone: [facility] Start: 07-10-2024 End: 07-10-2024 Bamboo flowsheet [...] Department Unsolicited Start: 05-16-2024 End: 05-16-2024 ambulatory [facility] Work Phone: Start: 05-16-2024 End: 05-16-2024 Patient encounter procedure [facility] Work Phone: Start: 03-15-2024 End: 03-15-2024 ambulatory [facility] Work Phone: Start: 03-15-2024 End: 03-15-2024 Patient encounter procedure [facility] Work Phone: Start: 02-15-2024 End: 02-15-2024 Patient encounter procedure [facility] Work Phone: Start: 12-02-2023 End: 12-02-2023 ambulatory [facility] Work Phone: Start: 12-02-2023 End: 12-02-2023 Patient encounter procedure [facility] Work Phone: Start: 10-10-2023 End: 10-10-2023 Patient encounter procedure [facility] Work Phone: Start: 10-05-2023 Patient encounter status [facility] Start: 10-03-2023 End: 10-03-2023 ambulatory [facility] Work Phone: Start: 10-03-2023 End: 10-03-2023 Encounter for general adult medical examination without abnormal findings [facility] Start: 10-03-2023 End: 10-03-2023 Patient encounter procedure [facility] Work Phone: Start: 09-07-2023 End: 09-07-2023 ambulatory [facility] Work Phone: Start: 09-07-2023 End: 09-07-2023 Patient encounter procedure [facility] Work Phone: Start: 07-12-2023 Non-patient / Non-visit [facility] Work Phone: Start: 06-17-2023 End: 06-17-2023 ambulatory [facility] Work Phone: Start: 06-17-2023 End: 06-17-2023 Patient encounter procedure [facility] Work Phone: Start: 05-04-2023 End: 05-04-2023 ambulatory [facility] Work Phone: Start: 05-04-2023 End: 05-04-2023 Patient encounter procedure [facility] Work Phone: Start: 05-02-2023 Non-patient / Non-visit [facility] Work Phone: Start: 04-21-2023 End: 04-21-2023 Online digital e/m svc est pt <7 d 11-20 minutes Yesica OSWALD Work Phone: [facility] Comment on above: Insulin resistance; Metabolic syndrome; Hormone imbalance Start: 04-04-2023 End: 04-04-2023 ambulatory Surya Hodges Other [employer] Other Start: 04-04-2023 Office outpatient vi sit 15 minutes Surya Hodges [facility] Start: 04-04-2023 End: 04-04-2023 Patient encounter procedure [facility] Start: 03-11-2023 End: 03-11-2023 ambulatory Surya Hodges Other [employer] Other Start: 03-11-2023 Telephone encounter Surya Hodges [facility] Start: 03-11-2023 Patient encounter procedure [facility]- Start: 01-12-2023 End: 01-12-2023 ambulatory Surya Hodges Other [employer] Other Start: 01-12-2023 Telephone encounter Surya Hogdes [facility] Start: 12-17-2022 End: 12-17-2022 ambulatory Surya Hodges Other [employer] Other Start: 12-17-2022 Office outpatient vi sit 15 minutes Surya Hodges [facility] Start: 11-30-2022 End: 12-01-2022 Evaluation and management of inpatient MD Surya Hodges Work Phone: [facility] Work Phone: Start: 11-30-2022 End: 12-01-2022 observation encounter MD Surya Hodges Work Phone: [facility] Work Phone: Start: 11-30-2022 End: 11-30-2022 ambulatory Surya Hodges Other [employer] Other Start: 11-30-2022 Telephone encounter Surya Hodges [facility] Start: 11-29-2022 End: 11-29-2022 ambulatory Surya Hodges Other [employer] Other Start: 11-29-2022 Office outpatient vi sit 15 minutes Surya Hodges [facility] Start: 11-29-2022 Telephone encounter Surya Hodges [facility] Start: 11-18-2022 End: 11-18-2022 ambulatory Surya Hodges Other [employer] Other Start: 11-18-2022 Office outpatient vi sit 10 minutes Surya Hodges [facility] Start: 11-05-2022 End: 11-05-2022 ambulatory Surya Hodges Other [employer] Other Start: 11-05-2022 Office outpatient vi sit 10 minutes Surya Hodges [facility] Start: 11-04-2022 End: 11-04-2022 ambulatory Surya Hodges Other [employer] Other Start: 11-04-2022 Telephone encounter Surya Hodges [facility] Start: 10-18-2022 End: 10-18-2022 ambulatory Surya Hodges Other [employer] Other Start: 10-18-2022 Office outpatient vi sit 10 minutes Surya Hodges [facility] Start: 09-17-2022 End: 09-17-2022 ambulatory Surya Hodges Other [employer] Other Start: 09-17-2022 Telephone encounter Surya Tracie [facility] Start: 09-09-2022 End: 09-09-2022 ambulatory Surya Hodges Other [employer] Other Start: 09-09-2022 Office outpatient vi sit 15 minutes Surya Hodges [facility] Start: 06-18-2022 Encounter for other preprocedural examination DR BRENT ROLAND . [facility] Start: 06-16-2022 End: 06-16-2022 ambulatory [...] encounter procedure Kamaljit AYALA [facility] Start: 05-20-2022 End: 05-21-[address] SURYA HODGES Facility:[facility] Start: 05-08-2022 End: 05-08-[address] SURYA HODGES Facility:[facility] Start: 03-23-2022 End: 04-16-2022 ambulatory BRINA SHEIKH Facility:[facility] Start: 03-16-2022 End: 03-16-2022 ambulatory Surya Hdoges Other [employer] Other Start: 03-16-2022 Office outpatient vi sit 15 minutes Surya Hodges [facility] Start: 02-25-2022 Gynecological examination normal Surya Hodges Other [employer] Other Start: 02-25-[address] SURYA HODGES Facil ity:[facility] Start: 02-21-2022 End: 02-21-2022 ambulatory MD Surya Hodges Work Phone: [facility] Work Phone: Start: 02-21-2022 End: 02-21-2022 Patient encounter procedure MD Surya Hodges Work Phone: [facility] Start: 01-13-2022 End: 01-14-[address] BRENT ROLAND . Facility:[facility] Start: 01-13-2022 End: 01-13-2022 Patient encounter procedure SANIYA KAUFMAN [facility] Start: 12-21-2021 End: 12-21-[address] BRENT ROLAND . Facility:[facility] Start: 04-08-2021 (URG) Urgent Care Visit Treasure pimentel [facility] Start: 04-08-2021 End: 04-08-2021 ambulatory Treasure Quezada Other [employer] Other Start: 05-16-2020 Pre-procedure evalua tion check Sruya Hodges Other [employer] Other Procedures Date Procedure Procedure Detail Performing Clinician Start: 10-29-2024 Intravenous pyelogram J leslee Mays APRN Work Phone: Start: 10-09-2024 IGP,APTIMA HPV,AGE GDLN [employer] DO Work Phone: Start: 10-02-2024 Cystoscopic removal of ureteric stent Kamaljitana AYALA Start: 07-23-2024 ALL CBC WITH AUTO DIFF Pogojo DO Work Phone: Start: 07-23-2024 ECG 12-LEAD [employer] DO Work Phone: Start: 07-10-2024 RECURRENT VAGINITIS (HTRX) Brent Asuncion DO Work Phone: Start: 07-10-2024 Urnls dip stick/tabl et rgnt non-auto w/o micrscp [employer] [facility] Work Phone: Start: 07-03-2024 US PELVIS W/ TRANSVAGINAL [facility] Work Phone: Start: 12-28-2022 Microscopic observat ion [Identifier] in Cervix by Cyto stain [facility] Work Phone: Start: 12-28-2022 Cytp cerv/vag auto t hin layer prep mnl screen [facility] Work Phone: Start: 11-30-2022 Ultrasonography of liver [...] Screening for malign ant neoplasm of cervix [facility] Start: 02-05-2025 End: 02-05-2025 Patient encounter procedure 02/05/2025 9:00 AM EST Office Visit Urology [address] [place] [address] Nato Hawkins MD [address] [id number] Cysto Stent Removal Urology Comment on above: Cysto Stent Removal Start: 01-07-2025 End: 01-07-2025 Admission to same day surgery center 01/07/2025 8:25 AM EDT - 01/07/2025 12:48 PM EDT Surgery Admitting [address] [id number] Nato Hawkins MD [address] [id number] XI ROBOTIC LAPAROSCOPIC REIMPLANT URETER BLADDER W/ PSOAS HITCH OR BLADDER FLAP Admitting Comment on above: XI ROBOTIC LAPAROSCO PIC REIMPLANT URETER BLADDER W/ PSOAS HITCH OR BLADDER FLAP Start: 01-07-2025 Subsequent hospital visit by physician 01/07/2025 8:25 AM EDT Hospital Encounter Admitting [address] [place] [address] Nato Hawkins MD [address] [place] [address] Ureteral stricture [N13.5] Admitting Comment on above: Ureteral stricture [ N13.5] Start: 01-07-2025 End: 01-07-2025 Unlisted laparoscopy procedure ureter XI ROBOTIC LAPAROSCOPIC REIMPLANT URETER BLADDER W/ PSOAS HITCH OR BLADDER FLAP Ureteral stricture 01/07/2025 8:25 AM EDT [facility] Start: 12-31-2024 End: 12-31-2024 Patient encounter procedure 12/31/2024 11:15 AM EDT Appointment Radiology [address] [place] [address] W/WO IV CON Pre-Op Radiology Comment on above: Urogram CT W/WO IV C ON Pre-Op Start: 12-31-2024 End: 12-31-2024 ambulatory 12/31/2024 10:45 AM EDT Results Only [place] [facility] [address] [place] [address] ct [facility] Comment [facility]: ct first Start: 12-31-2024 End: 12-31-2024 Anesthesia consultation 12/31/2024 9:40 AM EDT PAT Pre Anesthesia [address] [place] [address] 1, Pacc [place] [address] [facility] [place] [address] Pre-Op, 01/07/2025, Dr. Hawkins Pre Anesthesia Comment on above: Pre-Op, 01/07/2025, Dr. Hawkins Start: 12-24-2024 End: 01-07-2025 BACTERIAL CULTURE, UROLOGY PRESURGICAL SCREENING, URINE BACTERIAL CULTURE, UROLOGY PRESURGICAL SCREENING, URINE Microbiology Routine Ureteral stricture Hydronephrosis with ureteral stricture, not elsewhere classified Expected: 12/24/2024, Expires: 01/07/2025 [facility] Comment on above: Expected: 12/24/2024 , Expires: 01/07/2025 Start: 12-24-2024 End: 01-07-2025 CBC panel - Blood by Automated count COMPLETE BLOOD COUNT Lab Routine Ureteral stricture Hydronephrosis with ureteral stricture, not elsewhere classified Expected: 12/24/2024, Expires: 01/07/2025 [facility] Work Phone: Comment on above: Expected: 12/24/2024 , Expires: 01/07/2025 Start: 12-24-2024 End: 01-07-2025 Comprehensive metabolic 2000 panel - Serum or Plasma COMPREHENSIVE METABOLIC PANEL Lab Routine Ureteral stricture Hydronephrosis with ureteral stricture, not elsewhere classified Expected: 12/24/2024, Expires: 01/07/2025 [facility] Comment on above: Expected: 12/24/2024 , Expires: 01/07/2025 Start: 12-24-2024 End: 01-07-2025 TYPE + SCREEN TYPE + SCREEN Blood Bank Routine Ureteral stricture Hydronephrosis with ureteral stricture, not elsewhere classified Expected: 12/24/2024, Expires: 01/07/2025 [facility] Comment on above: Expected: 12/24/2024 , Expires: 01/07/2025 Start: 12-10-2024 End: 12-10-2024 Patient encounter procedure 12/10/2024 2:00 PM EDT Office [place] [address] Pre-Op [facility] Comment on above: Pre-Op Start: 11-12-2024 Influenza vaccination [facility] Start: 11-06-2024 End: 11-06-2024 Patient encounter procedure 11/06/2024 2:40 PM EDT Office Visit [facility] [address] [place] [id number] Brent Roland DO [address] [place] [address] [facility] Start: 10-09-2024 End: 10-09-2024 Patient encounter procedure [facility] Comment on above: Arrived Start: 08-14-2024 End: 08-14-2024 Patient encounter procedure 08/14/2024 1:20 PM EDT Office Visit [facility] [address] [place] [phone] Yesica Mcnair PA [address] [place] [address] Arrived [facility] Comment on above: Arrived Start: 07-10-2024 End: 07-10-2024 Patient encounter procedure 07/10/2024 10:00 AM EDT Office Visit [facility] [address] [place] [phone] Brent Roland, [address] [place] [address] Arrived [facility] Comment on above: Arrived Start: 12-01-2022 [facility] Start: 11-30-2022 Hospital admission [facility] Start: 11-12-2022 Influenza vaccination Influenza Vacc ine (#1) [facility] Start: 06-10-2019 Screening for malign ant neoplasm of cervix [facility] Start: 2016 HPV Vaccine (1 - 3-d ose SCDM series) HPV Vaccine (1 - 3-dose SCDM series) [facility] Start: 2010 Screening for malign ant neoplasm of cervix [facility] Start: 2008 Hepatitis B Vaccine (1 of 3 - 19+ 3-dose series) Hepatitis B Vaccine (1 of 3 - 19+ 3-dose series) [facility] Start: 2008 Urine microalbumin profile DTaP,Tdap,Td Vaccine (1 - Tdap) [facility] Start: 06-10-2007 Anxiety Screening Anxiety Screening [facility] Start: 06-10-2007 Depression Screening Depression Scre ening [facility] Start: 06-10-2007 Hepatitis C screening Hepatitis C [facility] Start: 06-10-2007 HIV screening HIV Screening [facility] CBC W Auto Different ial panel - Blood CBC and differential Lab Routine Metabolic syndrome Hormone imbalance Ordered: 04/21/2023 [facility] Work Phone: Comment on above: Ordered: 04/21/2023 CHLAMYDIA TRACHOMATI S (GENITO/STI) CHLAMYDIA TRACHOMATIS (GENITO/STI) Lab Routine Pelvic pain Ordered: 07/10/2024 [facility] Comment on above: Ordered: 07/10/2024 Comprehensive metabo lic 2000 panel - Serum or Plasma [facility] Comprehensive metabo lic 1999 panel - Serum or Plasma [facility] Comprehensive metabo lic 1999 panel - Serum or Plasma Comprehensive metabolic panel Lab Routine Pre-op evaluation Pelvic pain in female H/O: hysterectomy Ordered: 07/23/2024 [facility] [employer] Work Phone: Comment on above: Ordered: 07/23/2024 End: 12-21-2025 CT Kidney WO and W contrast IV CT UROGRAM WO/W IVCON Radiology Routine Hydronephrosis with ureteral stricture, not elsewhere classified 1 Occurrences starting 11/21/2024 until 12/21/2025 [facility] Comment on above: 1 Occurrences starti ng 11/21/2024 until 12/21/2025 Cytology Cervical or vaginal smear or scraping study Pap Smear Pathology and Cytology Routine Well woman exam with routine gynecological exam Ordered: 10/09/2024 [facility] [employer] Work Phone: Comment on above: Ordered: 10/09/2024 Human papilloma viru s DNA [Presence] in Unspecified specimen by Probe with amplification HPV DNA probe, amplified Microbiology Routine Well woman exam with routine gynecological exam Ordered: 10/09/2024 [facility] [employer] Comment on above: Ordered: 10/09/2024 Neisseria gonorrhoea e DNA [Presence] in Unspecified specimen by LEO with probe detection Neisseria gonorrhea DNA probe, direct Lab Routine Pelvic pain Ordered: 07/10/2024 [facility] [employer] Comment on above: Ordered: 07/10/2024 Patient Education Mediterranean Diet Hyperthyroidism (Overactive Thyroid) (DC) Propranolol Prediabetes (DC) [facility] Work Phone: Patient referral [facility] Work Phone: SURESWAB(R) ADVANCED VAGINITIS PLUS, TMA SURESWAB(R) ADVANCED VAGINITIS PLUS, TMA Pathology and Cytology Routine Pelvic pain Ordered: 07/10/2024 [facility] [employer] Work Phone: Comment on above: Ordered: 07/10/2024 XR Knee - left 4 Views [facility] Immunizations Immunization Date Immunization Notes Care Provider Kathy holliday 04-20-2021 SARS-CoV-2 (COVID-19 ) mRNA BNT-162b2 vax SANIYA KAUFMAN [facility] Comment on above: Result Comment: 2021: TPVALL 08-14-2020 SARS-CoV-2 (COVID-19 ) Ad26 vaccine, recombinant SANIYA KAUFMAN [facility] Comment on above: Result Comment: 2021: TPVALL Payers Date Payer Category Payer Private Health Insurance [id number] 2021 Blue Cross Blue Shield [id number] 2021 Unknown BCBS BCBS [id number] [id number] 2021-Present [phone] [address] [place] [address] [id number] 1989 Unknown [id number] 2.16.840.1.020397.3.579.2 .593 1989 Unknown [id number] 2.16.840.1.224047.3.579.2 .593 1989 Unknown [id number] 2.16.840.1.261322.3.579.2 .593 1989 Unknown [id number] 2.16.840.1.015136.3.579.2 .593 1989 Unknown [id number] 2.16.840.1.794363.3.579.2 .593 1989 Unknown [id number] 2.16.840.1.278590.3.579.2 .593 1989 Unknown [id number] 2.16.840.1.275456.3.579.2 .593 1989 Unknown [id number] 2.16.840.1.170568.3.579.2 .593 1989 Unknown [id number] 2.16.840.1.329841.3.579.2 .593 1989 Unknown [id number] 2.16.840.1.753797.3.579.2 .593 1989 Unknown [id number] 2.16.840.1.480887.3.579.2 .593 1989 Unknown [id number] 2.16.840.1.342826.3.579.2 .593 1989 Unknown [id number] 2.16.840.1.504876.3.579.2 .1259 1989 Unknown [id number] 2.16.840.1.939334.3.579.2 .1259 1989 Unknown [id number] 2.16.840.1.504529.3.579.2 .1259 1989 Unknown [id number] 2.16.840.1.489450.3.579.2 .1259 1989 Unknown [id number] 2.16.840.1.838903.3.579.2 .727 1989 Unknown [id number] 2.16.840.1.355282.3.579.2 .727 1989 Unknown [id number] 2.16.840.1.614279.3.579.2 .727 1989 Unknown [id number] 2.16.840.1.556176.3.579.2 .727 1989 Unknown [id number] 2.16.840.1.698860.3.579.2 .727 1989 Unknown [id number] 2.16.840.1.668074.3.579.2 .727 1959 Blue Cross Blue Shield [facility] [id number] 2.16.840.1.199347.19 Self-pay Self Pay [id number] Unknown Harpal BC/BS [id number] Social History Date Type Detail Facility Unknown if ever smoked [facility] Other Start: 02-09-2023 End: 11-20-2024 Sex Assigned At [facility] Start: 01-13-2022 End: 09-07-2023 Tobacco smoking status Never smoked tobacco (finding) [facility] Start: 01-21-2014 Tobacco smoking status Never [facility] Start: 1990 Sex Assigned At Female [facility] Start: 02-09-2023 End: 10-09-2024 Alcohol intake Ex-drinker (finding) [facility] Start: 02-09-2023 End: 11-20-2024 History of Social function [facility] Start: 09-24-2022 Alcohol Comment occasional: drinks wine & beer [facility] Start: 09-27-2022 Gender identity Identifies as female gender (finding) [facility] Start: 03-18-2010 End: 03-15-2024 Sex Female (finding) [facility] Sexual Orientation [facility] Tobacco smoking stat [facility] Tobacco smoking consumption unknown [facility] Start: 1990 Sex assigned at Not on file [facility] Goals Date Patient Goal Desired Activity /State Personal health goal Functional Status Date Assessment Result Facility 12-01-2022 Functional status Patient at Baseline [facility] Work Phone: 05-21-2022 Functional Status N/A [facility] 01-13-2022 Functional Status N/A [facility] Mental Status Date Assessment Result Facility 12-01-2022 Cognitive function Cognitive Sta tus Patient at Baseline [facility] Work Phone: Clinical Notes 04-08-2021 to 11-20-2024 Nato Hawkins MD - 11/20/2024 10:00 AM EDTLeatha Blair LPN - 10/09/2024 1:00 PM EDT Note Date & Type Note Facility 11-20-2024 Note HNO ID: [id number] Author: NATO HAWKINS MD Service: ? Author Type: Physician Type: Progress Notes Filed: 11/20/2024 12:24 Note Text: [facility] UROLOGY NEW PATIENT [...] Nato Hawkins MD Staff Urologist Genitourinary Reconstruction [facility] [place] Department of Urology I spent a total of 30 minutes on the date of the service which included preparing to see the patient, tvbc-de-dpvw patient care, completing clinical documentation, obtaining and/or reviewing separately obtained history, performing a medically appropriate examination, counseling and educating the patient/family/caregiver, and ordering medications, tests, or procedures. >50% of time was devoted to patient counseling. [1] [facility] 11-20-2024 History of Present illness Narrative Images from the original note were not included. [facility] UROLOGY NEW PATIENT [...] Nato Hawkins MD Staff Urologist Genitourinary Reconstruction [facility] [place] Department of Urology I spent a total of 30 minutes on the date of the service which included preparing to see the patient, ouef-yt-xsyu patient care, completing clinical documentation, obtaining and/or reviewing separately obtained history, performing a medically appropriate examination, counseling and educating the patient/family/caregiver, and ordering medications, tests, or procedures. >50% of time was devoted to patient counseling. [1] documented in this encounter [facility] 10-09-2024 History of Present illness Narrative adip [...] 0.4 mg, Daily ALLERGIES Allergies Allergen Reactions Rqxcfhj-Vwwczw-Jnasl Pertussis Swelling Tetanus-Diphtheria Toxoids Td Other Azithromycin [...] nursing note reviewed. Exam conducted with a failure analysis engineer present. Vitals: Estimated body mass index is [...] them. Patient can also view results via [email or web address]. I reinforced importance of condom use for [...] Brent Roland DO documented in this encounter [facility] 10-02-2024 Hospital Discharge instructions Patient Education 10/02/2024 [...] include: ?8 oz (237 mL) of milk, fuvxuqk-iitalnphuezk-gltgg milk, and calcium-fortifiedfruit juice. Calcium-fortified means that [...] ?Spinach (cooked), rhubarb, beets, sweet potatoes, and Lebanese chard. ?Peanuts. ?Potato chips, divehi fries, and baked potatoes with skin on. ?Nuts and nut products. ?Chocolate. If you regularly take a diuretic medicine, make sure to eat at least 1 or 2 servings of fruits or vegetables that are high in potassium each day. These include: ?Avocado. ?Banana. ?[place], prune, carrot, or tomato juice. ?Baked potato. [...] magnesium, fish oil, or vitamin B6. Take eket-vfd-xjewaaq and prescription medicines only as told by [...] Casseroles. Pizza. Lasagna. Frozen meals. Potato chips. Cuban fries. The items listed above may not [...] provider. Document Revised: 06/10/2022 Document Reviewed: 06/10/2022 [employer] Patient Education 2023 [employer]. Follow Up Care 09/11/2024 09:57:49 With:LUCY STILES, Kamaljit Rivas, SAVITA Address: [facility] [address], [place] [address]- When: Unknown [facility] 10-02-2024 Note Patient Education Nephrology Dietary Guidelines [...] ? 8 oz (237 mL) of milk, raxyagr-jbtsvpgswsbk-aodie milk, and calcium-fortifiedfruit juice. Calcium-fortified means that [...] Spinach (cooked), rhubarb, beets, sweet potatoes, and Lebanese chard. ? Peanuts. ? Potato chips, divehi fries, and baked potatoes with skin on. ? Nuts and nut products. ? Chocolate. ??? If you regularly take a diuretic medicine, make sure to eat at least 1 or 2 servings of fruits or vegetables that are high in potassium each day. These include: ? Avocado. ? Banana. ? [place], prune, carrot, or tomato juice. ? Baked [...] fish oil, or vitamin B6. ??? Take rkdq-ceo-trnaosk and prescription medicines only as told by your health (more content not included)... [facility] 09-05-2024 Evaluation note Diagnosis Onset Date Resolution Poison abena dermatitis acute Prakash e 2024 1:43pm [facility] Work Phone: 1(374) 350-461406-03-2025 History of Present illness Narrative* MARGRET Canales [...] chew, or split. ALLERGIES Allergies Allergen Reactions Qyxfitk-Gjzdru-Cdijc Pertussis Swelling Tetanus-Diphtheria Toxoids Td Other Azithromycin [...] behalf of: MARGRET Canales documented in this encounterResearch [facility] [id number] History of Present illness Narrative* Brenda Tomlinson [...] on 08/02/[address] Roland at [facility]. MEDICATIONS Current Outpatient Medications Medication [...] chew, or split. ALLERGIES Allergies Allergen Reactions Eearjes-Kngepk-Cdmrz Pertussis Swelling Tetanus-Diphtheria Toxoids Td Other Azithromycin [...] nursing note reviewed. Exam conducted with a failure analysis engineer present. Vitals: Estimated body mass index is [...] reviewed, and patient is to proceed to [facility] OR. Follow Up: Patient is to follow up between 1-2 weeks post operative to assess proper healing and recovery fromprocedure. Documented by Laney Chow LPN on behalf of: Brent Roland DO documented in this encounterResearch Medical Center-Brookside [id number] History of Present illness Narrative* Leathaedilberto Blair [...] Oral, Daily ALLERGIES Allergies Allergen Reactions Adacel [Isdgnrm-Jvrbzw-Wwjic Pertussis] Swelling Clindamycin Rash PROBLEMS Active Ambulatory [...] nursing note reviewed. Exam conducted with a failure analysis engineer present. Vitals: Estimated body mass index is [...] of: Brent Roland DO documented in this encounterResearch Medical Center-Brookside [id number] Evaluation note* Diagnosis Onset Date Resolution Status Admit Date Obesity (BMI 30.0-34.9) acute J anuary 2024 11:26am Hypothyroidism acute May 16, 2024 10:00am Screening for lipid disorders acute May 16, 2024 10:00am Screening for metabolic disorder acu te May 16, 2024 10:00am Screening, deficiency anemia , iron acute May 16, 2024 10:00am Vitamin D deficiency acute Gabino 2024 10:00am [facility] Work Phone: 1(557) 756-949212-04-2024 Evaluation note* Diagnosis Onset Date Resolution Status Admit Date Bronchitis acute February 15, 2024 1:00pm Maxillary sinusitis acute Decem 2023 1:00pm Obesity (BMI 30.0-34.9) acute D ec2023 1:00pm [facility] Work Phone: 1(876) 341-860702-08-2024 History of Present illness Narrative* MARGRET Canales - 04/21/2023 8:50 AM EST Reason for Appointment: Patient ID: Tootie Alfaro is a 32 y.o. female who presents for telehealth follow up Patient presents today via telephone call for a telehealth appointment. Patients Phone #: [phone] (mobile) Current Medications: has a current medication [...] LIGATION Bilateral 2012 Allergies Allergen Reactions Adacel [Eqgozwh-Ajaaca-Xnrjj Pertussis] Swelling Clindamycin Rash Vitals: Estimated body [...] for cbc check for kidney function to [facility]. Pt aware and agrees to have blood work obtained. She will follow up in office in 3 months Documented by MARGRET Canales on behalf of: MARGRET Canales * Hedy Carter MA - 04/21/2023 8:50 AM EST Cbc order was sent to [facility] for pt to have done. documented in this encounterResearch Medical Center-Brookside [id number] Evaluation note* Encounter Date Diagnosis Assessment Notes Treatment Notes Treatment Clinical Notes Mar, Bronchitis (ICD-10 - J40) Discussed diagnosis with patient. Finish entire course of antibiotic. Proair inhaler sent today for patient to use PRN cough/wheezing/short ness of breath. Tessalon Pearles ordered to take as needed for cough. Increase fluids and rest. Oonc-hwi-wunfmtx antipyretics as needed. Warning signs and symptoms reviewed with patient today. Patient to go immediately to the ER should she experience any of these. Patient to notify office should her symptoms persist and not improve. Patient verbalizes understanding and agrees to treatment plan. Mar, Vaginal yeast infection (ICD-10 - B37.31) Pt requests diflucan to cover probable yeast infection w antibiotic. [facility] Other 12-29-2023 Evaluation note* Encounter Date Diagnosis Assessment Notes Treatment Notes Treatment Clinical Notes Feb, Sore throat (ICD-10 - J02.9) [facility] Other 10-06-2023 Evaluation note* Encounter Date Diagnosis Assessment Notes Treatment Notes Treatment Clinical Notes Dec, Hypothyroidism (ICD-10 - E03.9) Recheck in next 4-6 weeks. Continue healthy diet and exercise. [facility] Other 09-20-2023 Discharge summary Author Baljinder Polanco [facility] December 01, 2022 5:19pm Note Date/Time December 01, 2022 1:02pm [facility] [address] [place] [address] Discharge Summary Signed Patient: Karlene Alfaro MR#: [id number] : 1990 Acct:[id number] Age/Sex: 32 / F Adm Date: 3 Loc: Room: [address] [place] [address]: Baljinder Polanco MD Copies to: [...] Clear, Urine pH >= 9.0, Ur Specific Sachse 1.013, Urine Protein Negative, Urine Glucose (UA) [...] % (Auto) 59.2, Lymph % (Auto) 32.3, [place] % (Auto) 6.8, Eos % (Auto) 0.9, Baso % (Auto) 0.8, Nucleat RBC Rel Count 0.2, Neut # (Auto) 4.9, Lymph # (Auto) 2.7, [place] # (Auto) 0.6, Eos # (Auto) 0.1, Baso # (Auto) 0.1, Monocyte Dist Width19.22 11/30/22 13:00: PHA Creatinine Clear 114.08, Sodium 138, Potassium 4.1, Ppyejbgy773, Carbon Dioxide 23.9, Anion Gap 14.2, BUN 9, Creatinine 0.83, Est GFR (CKD-EPI) > 60.0, Glucose 77, Calcium 9.5, Magnesium 1.9, Total Bilirubin 0.9, DirectBilirubin 0.00 L, Indirect Bilirubin 0.9, AST 11 L, ALT 16, Alkaline Emzmrnpwpvk18, Total Protein 7.6, Albumin 4.4, Globulin 3.2, [...] <Electronically signed by Baljinder Polanco MD> 12/01/[address] [facility] Work Phone: 1(980) 533-958409-19-2023 History and physical note Author Baljinder Polanco [facility] November 30, 2022 4:34pm Note Date/Time November 30, 2022 4:34pm [facility] [address] [place] [address] Hospitalist H&P Signed Patient: Karlene Alfaro MR#: [id number] : 1990 Acct:[id number] Age/Sex: 32 / F Adm Date: 3 Loc: Room: [address] [place] [address] Type: ADM IN Attending Dr: Baljinder Polanco [...] rub or JVD. Peripheral pulses present bilaterally. Vubfn-ej-gbom ultrasound is unremarkable. Lungs are clear to [...] her symptoms. DVT prophylaxis Xarelto [facility] Medical History (Updated 11/30/22 @ 15:13 by [...] % (Auto) 32.3 % (.) 11/30/22 13:00 Sarpy % (Auto) 6.8 % (.) 11/30/22 13:00 Eos % (Auto) 0.9 % (.) 11/30/22 13:00 Baso % (Auto) 0.8 % (.) 11/30/22 13:00 Nucleat RBC Rel Count 0.2 /100 WBC (0-0.5) 11/30/22 13:00 Neut # (Auto) 4.9 x10E3/uL (1.8-7.7) 11/30/22 13:00 Lymph # (Auto) 2.7 x10E3/uL (1.00-4.8) 11/30/22 13:00 Sarpy # (Auto) 0.6 x10E3/uL (0.0-0.8) 11/30/22 13:00 [...] >= 9.0 (5.0-9.0) 11/30/22 16:04 Ur Specific Sachse 1.013 (1.001-1.030) 11/30/22 16:04 Urine Protein Negative [...] signed by Baljinder Polanco MD> 11/30/22 1634 [facility] Work Phone: 1(996) 229-381209-18-2023 Evaluation note* Encounter Date Diagnosis Assessment Notes [...] - E03.9) Pt's thyroid managed by her life manager - will check levels - labs were normal in May [facility] Other 09-07-2023 Evaluation note* Encounter Date Diagnosis [...] index [BMI] 28.0-28.9, adult (ICD-10 - Z68.28) [facility] Other 08-25-2023 Evaluation note* Encounter Date Diagnosis Assessment Notes Treatment Notes Treatment Clinical Notes Oct, Allergic contact dermatitis, unspecified cause (ICD-10 - L23.9) Take medications as directed. Complete all doses. Wash all belongings that came in contact with plant oils. May continue to use Calamine lotion. Patient verbalized understanding and agreement with treatment plan. [facility] Other 08-07-2023 Evaluation note* Encounter Date Diagnosis [...] to ER and Follow-up with me immediately. [facility] Other 07-07-2023 Evaluation note* Encounter Date Diagnosis Assessment Notes Treatment Notes Treatment Clinical Notes Sep, Overweight (ICD-10 - E66.3) Sep, Body mass index [BMI] 29.0-29.9, adult (ICD-10 - Z68.29) [facility] Other 06-29-2023 Evaluation note* Encounter Date Diagnosis Assessment Notes Treatment Notes Treatment Clinical Notes Aug, Acute contact dermatitis (ICD-10 - L25.9) Take medications as directed. Complete all doses. Wash all belongings that came in contact with plant oils. May continue to use Calamine lotion. Patient verbalized understanding and agreement with treatment plan. [employer] Other 04-05-2023 NoteOPERATIVE NOTE OPERATION DATE: 06/16/2022 PROCEDURE: Diagnostic laparoscopy. PREOPERATIVE DIAGNOSIS: Pelvic pain, left ovarian cyst. POSTOPERATIVE DIAGNOSIS: Pelvic pain, left ovarian cyst. ANESTHESIA: General. SURGEON: Brent Roland D.O. ORACLE PROGRAMMER ANALYST: MIRNA Harden URINE OUTPUT: Yellow and clear. [...] taken to Recovery Room in stable condition.[id number] Discharge instructions Patient Education 05/21/2022 10:45:43 Kidney Stones, [id number]-[id number] Kidney Stones Kidney stones are rock-like masses [...] Follow these instructions at home: Medicines Take [id number]-[id number] and prescription medicines only as told by [...] 08/16/2008 Document Revised: 07/17/2019 Document Reviewed: 07/17/2019 [employer] Patient Education 2019 [employer]. Follow Up Care 05/11/2022 13:32:37 With:LUCY STILES, Kamaljit Rivas, URL Address: [address] [place], [place] [id number]- When: Unknown [facility] 01-03-2023 Evaluation note* Encounter Date Diagnosis Assessment Notes Treatment Notes Treatment Clinical Notes Mar, Pharyngitis, unspecified etiology (ICD-10 - J02.9) New medications as directed. Increase fluids, rest, good hand washing. OTC for fever/discomfort. Tooth brush in the retoucher or get a new one after on antibiotics for 24 hours. F/U if no improvement in the next 72 hours Mar, Vaginal yeast infection (ICD-10 - B37.31) Will treat empirically for yeast, discharge and sx reported consistent with that of vaginal candidiasis. Instructed patient to take as directed, advised that she should feel improvement in about 2 days. [employer] Other 11-02-2022 Hospital Discharge instructions Patient Education [...] 02/14/2013 Document Revised: 10/18/2018 Document Reviewed: 10/18/2018 [employer] Patient Education 2020 [employer]. Follow Up Care 01/11/2022 14:36:11 With:[facility] Address: [facility] [address] [place] [address] Business (1) When: Unknown Comments:for procedure as scheduled [facility] 01-26-2022 Evaluation note* Encounter Date Diagnosis Assessment [...] Patient care instructions given in writting by [facility] Care At Home document. [facility] [employer] Other Evaluation + Plan note No data available for this section [facility] evaluation + Plan note Future Appointments Appointment Date:09/03/2022 08:00:00 AM Scheduled Provider:Kamaljit AYALA MD Location:[facility] Appointment Type:URO Office Visit [facility] evaluation + Plan note Future Appointments Appointment Date:12/28/2024 08:00:00 AM Scheduled Provider:Kamaljit AYALA MD Location:[facility] Appointment Type:URO Office Visit [facility] [place] Evaluation noteNo assessment information available [facility] Work Phone: evalukrpfy noteNo InformationNortJames E. Van [facility] [employer] Other Evaluation note* Diagnosis Onset Date Resolution Status Chest pain acute Tachycardia acute [facility] Work Phone: Evaluation note* Diagnosis Insulin resistance Other abnormal glucose Metabolic syndrome Dysmetabolic Syndrome X Hormone imbalance documented in this encounter [facility]* Diagnosis Onset Date Resolution Status Allergic reaction due to antibacterial drug acute Streptococcus pharyngitis ac [facility] Work Phone: Evaluation note* Diagnosis Onset Date Resolution Status Anxiety acute Thyroid disease acute Migraines acute Screening for lipid disorders acute Screening for metabolic disorder acute Screening, deficiency anemia, iron acute [facility] Work Phone: Evaluation note* Diagnosis Onset Date Resolution Status Migraines acute Screening for lipid disorders acute Screening for metabolic disorder acute Screening, deficiency anemia, iron acute Left knee pain acute [facility] Work Phone: Evaluation note* Diagnosis Onset Date Resolution Status Migraines acute Screening for lipid disorders acute Screening for metabolic disorder acute Screening, deficiency anemia, iron acute Left knee pain acute Wellness examination acute Poison abena dermatitis acute [facility] Work Phone: Evaluation note* Diagnosis Pelvic pain documented in this encounter [facility] HealthcareEvaluation note* Diagnosis Pre-op evaluation Pelvic pain in female Unspecified symptom associated with female genital organs Pain of ovary H/O: hysterectomy Acquired absence of both cervix and uterus documented in this encounter [facility] [employer] note* Diagnosis Acute postoperative pain Other acute postoperative pain Postoperative follow-up Follow-up examination, following unspecified surgery Other insomnia documented in this encounter [facility] HealthcareEvaluation note* Diagnosis Onset Date Resolution Status Admit Date Poison abena dermatitis acute Aug 1:43pm [facility] Work Phone: Evaluation note* Diagnosis Well woman exam with routine gynecological exam Routine gynecological examination Insulin resistance Other abnormal glucose Encounter for weight loss counseling documented in this encounter [facility] [employer] note* Diagnosis Flank pain- Primary Abdominal pain, unspecified site Ureteral stricture Stricture or kinking of ureter H/O: hysterectomy Acquired absence of both cervix and uterus [facility] Diagnosis Ureteral stricture- Primary Stricture or kinking of ureter Hydronephrosis with ureteral stricture, not elsewhere classified Ureteral stricture Stricture or kinking of ureter documented in this encounter [facility] general Narrative - Reported* Type Description Date Medical History hypothyroidism Surgical History gallbladder removal Surgical History appendecs Surgical History ovarian cysts taken out in 2007 Surgical History hysterectomy Hospitalization History surgeries Hospitalization History child [employer] Other History general Narrative - Reported* Type Description Date Medical History hypothyroidism Surgical History gallbladder removal Surgical History appendecs Surgical History ovarian cysts taken out in 2007 Surgical History hysterectomy Hospitalization History surgeries Hospitalization History child Hospitalization History [facility] chest pain 11/2022 [employer] Other Hospital Discharge instructions Additional Instructions You have slightly elevated cholesterol level and prediabetes. Try to eat a healthier diet. Mediterranean diet is the best studied to improve health outcomes. I attached some instructions. Establish care with a primary care physician who will manage all your health issues.[facility] Work Phone: Progress note No data available for this section [facility] reason for referral (narrative)No reason for referral information available[facility] Work Phone: Advance Directives No Advanced [...] End: September 07, 2023 Saniya Mays APRN SOCIAL INSURANCE ANALYST-C Attending Provider Act ellie Start: September 07, 2023 End: September 07, 2023 Team Status: Inactive Member Role Status Dates Surya Hodges MD Primary Care Provide r, Attending Provider Active Start: October 03, 2023 End: October 03, 2023 Team Status: Inactive Member Role Status Dates Surya Hodges MD Primary Care Provider Active Start: October 10, 2023 End: October 10, 2023 Saniya Mays APRN SOCIAL INSURANCE ANALYST-C Attending Provider Act ellie Start: October 10, [...] MD Primary Care Provider Active Treasure Quezada SOCIAL INSURANCE ANALYST-C Attending Provider Active Team Status: Inactive Member Role Status Dates Surya Hodges MD Primary Care Provider Active Marcio Steven DO Emergency Provider Active Baljinder Polanco MD Admit Provider, Attending Provider Active Veterinarian Helper Relationship Specialty Start Date End Date Surya Hodges MD [facility] [place] [phone] PCP - General Family Medicine 09/27/22 Team Status: Active Member Role Status Dates Saniya Mays APRN SOCIAL INSURANCE ANALYST-C Primary Care Provider Active Team Status: Inactive Member Role Status Dates Saniya Mays APRN SOCIAL INSURANCE ANALYST-C Primary Care Provider, Attending Provider Active Start: February 15, 2024 End: February 15, 2024 Team Status: Inactive Member Role Status Dates Saniya Mays APRN SOCIAL INSURANCE ANALYST-C Primary Care Provider, Attending Provider Active Start: March 15, 2024 End: March 15, 2024 Team Status: Inactive Member Role Status Dates Saniya Mays APRN SOCIAL INSURANCE ANALYST-C Primary Care Provider, Attending Provider Active Start: May 16, 2024 End: May 16, 2024 Veterinarian Helper Relationship Specialty Start Date End Date Surya Hodges MD PCP - General Family Medicine 09/27/22 Veterinarian Helper Relationship Specialty Start Date End Date Surya Hodges MD [address] [facility] [place] [phone] PCP - General Family Medicine 09/27/22 Veterinarian Helper Relationship Specialty Start Date End Date Surya Hodges MD [address] [facility] [place] [phone] PCP - General Family Medicine 09/27/22 Veterinarian Helper Relationship Specialty Start Date End Date Surya Hodges MD [address] [facility] [place] [address] PCP - General Family Medicine 09/27/22 Veterinarian Helper Relationship Specialty Start Date End Date Surya Hodges MD [address] [facility] [place] [address] PCP - General Family Medicine 09/27/22 Veterinarian Helper Relationship Specialty Start Date End Date Surya Hodges MD [address] [facility] [place] [address] PCP - General Family Medicine 09/27/22 Veterinarian Helper Relationship Specialty Start Date End Date Surya Hodges MD [address] [facility] [place] [phone] PCP - General Family Medicine 09/27/22 Team Status: Active Member Role Status Dates Saniya Mays APRN SOCIAL INSURANCE ANALYST-C Primary Care Provider Active Start: July 23, 2024 Brent Roland DO Attending Provider Active Start : July 23, 2024 Team Status: Active Member Role Status Dates Saniya Mays APRN SOCIAL INSURANCE ANALYST-C Primary Care Provider Active Start: August 02, 2024 Brent Roland DO Attending Provider Active Start : August 02, 2024 Team Status: Active Member Role Status Dates Saniya Mays APRN SOCIAL INSURANCE ANALYST-C Primary Care Provider Active Start: August 23, 2024 Kamaljit Ayala MD Attending Provider Active St art: August 23, 2024 Team Status: Inactive Member Role Status Dates Saniya Mays APRN SOCIAL INSURANCE ANALYST-C Primary Care Provider Active Start: September 05, 2024 End: September 05, 2024 TAYLOR Harry Attending Provider Act ellie Start: September 05, 2024 End: September 05, 2024 Veterinarian Helper Relationship Specialty Start Date End Date Surya Hogdes MD [address] [place] [phone] PCP - General Family Medicine 09/27/22 Veterinarian Helper Relationship Specialty Start Date End Date Surya Hodges MD [address] [place] [phone] PCP - General Family Medicine 09/27/22 Team Status: Active Member Role Status Dates Saniya Mays APRN SOCIAL INSURANCE ANALYST-C Primary Care Provider Active Start: October 09, 2024 Brent Roland DO Attending Provider Active Start : October 09, 2024 Team Status: Inactive Member Role Status Dates Saniya Mays APRN SOCIAL INSURANCE ANALYST-C Primary Care Provider Active Start: October 29, 2024 End: October 29, 2024 Kamaljit Ayala MD Attending Provider Active St art: October 29, 2024 End: October 29, 2024 Veterinarian Helper Relationship Specialty [place] [address] [place] [phone] PCP - General Family Medicine 01/21/14 Kamaljit Ayala MD [facility] [place] [address] Referring Urology 11/06/24 Veterinarian Helper Relationship Specialty Start Date End Date Surya Hodges MD [address] [facility] [place] [phone] PCP - General Family Medicine 01/21/14 Kamaljit Ayala MD [address] [facility] [place] [address] Referring Urology 11/06/24 Goals (unrecognized section and content) Goals may be documented in a n alternate section INFORMATION SOURCE (unrecogn ized section and content) DATE CREATED AUTHOR 07/01/2022 [facility] DATE CREATED AUTHOR AUTHOR'S ORGANIZ ATION 10/11/2024 [facility] EPIC DATE CREATED AUTHOR AUTHOR'S ORGANIZ ATION 10/31/2024 [facility] DATE CREATED AUTHOR AUTHOR'S ORGANIZ ATION [facility] DATE CREATED AUTHOR AUTHOR'S ORGANIZ ATION 12/19/2024 [facility] DATE CREATED AUTHOR AUTHOR'S ORGANIZ ATION 12/19/2024 [facility] Comments (unrecognize d section and content) In the event this informatio n is protected by the Federal Confidentiality of Alcohol and Drug Abuse Patient Records regulations: The Federal rules restrict any use of the information to criminally investigate or prosecute any alcohol or drug abuse patient.[facility] the event this information is protected by the Federal Confidentiality of Alcohol and Drug Abuse Patient Records regulations: The Federal rules restrict any use of the information to criminally investigate or prosecute any alcohol or drug abuse patient.[facility] FOR RECORDS PERTAINING TO PATIENTS WHO ARE [...] BE BASED ON THE PRIMARY CLINICAL RECORDS. [facility]. provides no warranty or guarantee of the accuracy or completeness of information in this document.
[2024-12-26 09:06] LABS: Free T3 2.64 pg/mL (2.18-3.98); Thyroid Stimulating Hormone 6.381 uIU/mL (0.358-3.740)
== END 2024-12-26 07:44 | disposition home or self-care (01) ==
LOC: LAB 07:45
PROVIDERS: PCP Nurse Practitioner Family; Visit Provider Obstetrics & Gynecology
DX: N13.5 Crossing vessel and stricture of ureter without hydronephrosis (principal); N13.1 Hydronephrosis with ureteral stricture, not elsewhere classified; R79.89 Other specified abnormal findings of blood chemistry; E03.9 Hypothyroidism, unspecified
CPT/HCPCS: 36415; 84439; 84443; 84481; 87086

== ENCOUNTER 2025-02-20 07:43 | Outpatient (OUT) | payer BC, SELFPAY ==
--- OUTSIDE RECORDS SUMMARY | 2025-02-19 07:09 | XMS_ITS | Continuity of Care Document ---
Author Organization [facility] Address [address] [place] [address] Phone Care Team Providers Care Pharmacy Informatics Manager Name Role Phone Brit Hawkins MD Attending Provider [phone] Saniya Mays APRN Primary Care Provider Brent Roland DO Attending Provider Saniya Ma DNP Attending Provider Saniya Mays APRN Attending Provider Care Teams Patient Care Team Team Status: Active Member Role/Relationship Status Dates Saniya Mays APRN WELDING INSTRUCTOR-C Primary Care Provider Active Visit Care Team Team Status: Inactive Member Role/Relationship Status Dates Brit Hawkins MD Attending Provider Active Start: December 26, 2024 End: December 26, 2024 Visit Care Team Team Status: Active Member Role/Relationship Status Dates Saniya Mays APRN WELDING INSTRUCTOR-C Primary Care Provider Active Start: December Brent Roland DOAttending ProviderActiveStart: December 26, 2024 Visit Care Team Team Status: Active Member Role/Relationship Status Dates Brit Hawkins MD Attending Provider Active Start: December 31, 2024 Visit Care Team Team Status: Inactive Member Role/Relationship Status Dates Saniya Ma DNP Attending Provider Active S tart: January 28, 2025 End: January 28, 2025Saniya Mays APRN WELDING INSTRUCTOR-CPrimary Care Provider ActiveStart: January 28, 2025 End: January 28, 2025 Patient Care Team Team Status: Inactive Member Role/Relationship Status Dates Saniya Mays APRN WELDING INSTRUCTOR-C Primary Care Provider Active Start: February End: February 19, 2025Saniya Mays APRN WELDING INSTRUCTOR-CAttending ProviderActive Start: February 19, 2025 End: February 19, 2025 Chief Complaint and Reason for Visit Chief Complaint Admit Date Unknown December 26, 2024 7 :50am Self-[place] January 28, 2025 9:25am Cough/Congestion (2 wks) February 19 11:18am Reason for Visit Admit Date Abnormal weight gain January 28, 2025 9:25am Anxiety January 28, 2025 9:25am BMI 31.0-31.9,adult January 28, 2025 9:25am Dietary surveillance and counseling Axel young 2024 9:25am Exercise counseling January 28, 2025 9:25am H/O: hysterectomy January 28, 2025 9:25am History of cholecystectomy January 9:25am Hypothyroidism January 28, 2025 9:25am Migraines January 28, 2025 9:25am Obesity (BMI 30.0-34.9) January 28 9:25am PCOS (polycystic ovarian syndrome) Novem 2024 9:25am Prediabetes January 28, 2025 9:25am Obesity (BMI 30.0-34.9) February 19 11:18am Prediabetes February 19, 2025 1 1:18am Vitamin D deficiency February 19, 2025 11:18am Allergies, Adverse Reactions, Alerts Allergen Type Severity Reaction Last Updated Verified Status Comments clindamycin Allergy Unknown Rash, Comment:Clind amycin Cream February 19, 2025 10:44am Yes Active Onset Date: 03/14/2019 diphtheria,pert ussis (acellular),te Allergy Unknown swelling at injection site February 19, 2025 10:44am Yes Active Onset Date: 03/14/2019 vaccine adjuvant system, AS01B liposomal Allergy Unknown Rash February 19, 2025 10:44am Yes Active whooping coughAllergyUnknownswelling injection siteJanuary 2023 2:26pmNo Active Social History Smoking Status Status Start Date End Date Date of Observa tion Never smoked tobacco (finding) January 28, 2025 10:07am Observation Status Observation Response Date of Response Legal Sex Female (finding) [facility] 1990[facility] IdentityCisgender/Not transgender (finding)January 28isgender/Not transgender (finding) January 28isgender/Not transgender (finding)January 28, 2025 Cisgender/Not transgender (finding)January 28, 2025Sexual OrientationUnknown UnknownUnknownUnknownPregnancy StatusNNovember 2024 Family History Relationship Condition Age at Onset Recorded Date/T pool grandparent Myocardial infarction Unknown History of coronary artery bypass surgeryUnknownMalignant neoplasm of colon UnknownmotherHypertensionUnknown Problems Active Problems Problem Diagnosis/Recorded Date Onset Date Status C omments Allergic reaction due to antibacterial drug May 04, 2023 12:25pm Unknown Active Exercise counselingNovember 2024 9:12amUnknownActiveFatigueDecember 2024 11:58amUnknownActiveDietary surveillance and counselingNovember 2024 9:12amUnknownActiveScreening, deficiency anemia, ironJune 2023 12:52pm UnknownActiveAbnormal weight gainNovember 2024 9:12amUnknownActiveAnxiety June 17, 2023 8:57pmUnknownActivePoison abena dermatitisJuly 2023 10:39am UnknownActiveWellness examinationJuly 2023 1:57pmUnknownActiveMigraines September 07, 2023 12:50pmUnknownActiveHypothyroidismFebruary 2023 10:44am UnknownActiveMaxillary sinusitisDecember 2023 2:06pmUnknownActiveScreening for metabolic disorderJune 2023 12:52pmUnknownActiveInsect bite of eye regionSeptember 2023 1:12pmUnknownActiveObesity (BMI 30.0-34.9)May 04, 2023 10:44amUnknownActivePCOS (polycystic ovarian syndrome)January 28, 2025 10:02amUnknownActiveScreening for lipid disordersJune 2023 12:52pm UnknownActiveStreptococcus pharyngitisFebruary 2023 12:25pmUnknownActive BMI 31.0-31.9,adultNovember 2024 10:15amUnknownActivePrediabetesNovember 2024 10:19amUnknownActiveHistory of cholecystectomyFebruary 2023 10:45amUnknownActiveH/O: hysterectomyFebruary 2023 10:45amUnknownActive Left knee painJuly 2023 2:13pmUnknownActiveBronchitisDecember 2023 2:01pmUnknownActiveVitamin D deficiencyMarch 2024 10:45amUnknownActive Thyroid diseaseSeptember 2022 11:20amUnknownActiveProblem List clean-up per request of Phys. EHR CmteInactive/Resolved Problems Problem Diagnosis/Recorded Date Onset Date Status C omments Tachycardia November 30, 2022 2:13pm Unknown Resolve d Problem List clean-up per request of Phys. EHR Cmte Chest pain November 30, 2022 11:45am Unknown Resolve d Problem List clean-up per request of Phys. EHR Cmte Medications Medication Status Dose Units Route Directions Qty Days Refills S tart Date Stop Date End Date Reason(s) Instructions Adherence Furosemide 20 mg tablet Discontinued 20 MG PO Edda ly 7 0April 2023 11:00pmMay 2023 11:45amFurosemide 20 mg tablet Jhjsvwjoiiiy38GLQMWrmff28547Pct 2023 11:45amMay 2023 11:44am Furosemide 20 mg jvspowOrqwtgutewiw59VBHHZttlh63330Zbz 2023 11:44amJune 2023 7:29amFurosemide 20 mg qdqrueMmormcfkyxji36YRTVHxpvi29029Snxr 2023 7:29amJune 2023 3:05pmFurosemide 20 mg uudweoDaqnvpojylpo31HUJCTihut 28570Kzap 2023 3:05pmOctober 2023 8:06amFurosemide 20 mg tablet Discontinued0.ROUTE.BQQFSRF931Byisymp 2023 8:06amJanuary 2024 12:38pm TAKE 1 TABLET BY MOUTH EVERY DAYPrednisone 10 mg slqrriCatdkxoogktp85JVHJYw Fjwmacql252Ouwspdj 2023 11:00pmDece2023 1:02pm4 daily x 2 days, 3 daily x 2 days, 2 daily x 2 days, 1 daily x 6 daysBupropion Hcl 100 mg tablet Wdpoapmfcwia277JMMGFxoyl fncqk815Jzqeiegy 2023 11:27amDecemb2023 1:07pmFurosemide 20 mg tabletDiscontinued0.ROUTE.GXOTGWQ545Bfhviyy 2024 12:38pmNovember 2024 9:55amTAKE 1 TABLET BY MOUTH EVERY DAYPhentermine (Adipex-P) 37.5 mg xtrshoXwpcxtcoodbk77.2VRFPFebtr56025Vizglckw 2024 2:56pm May 16, 2024 10:50amClass 1 obesity Obesity, unspecifiedmust administer 30 minutes before or 1-2 hours after breakfastLevothyroxine 137 mcg owssadyHrzrxfjwzfah075TSXKXZlazh300Qkwdp 2024 12:56pmSeptember 2024 1:09pmPhentermine (Adipex-P) 37.5 mg tablet Ksfegzfhrylt96.9TBVMYismh78074Gkcvw 2024 10:08amMay 2024 10:31amClass 1 obesity Obesity, unspecifiedmust administer 30 minutes before or 1-2 hours after breakfastPhentermine (Adipex-P) 37.5 mg oamzskVkqkrtdgdsim93.1IZPKUsyrt59764Guu 2024 10:31amJune 2024 9:51amClass 1 obesity Obesity, unspecifiedmust administer 30 minutes before or 1-2 hours after breakfastMethylprednisolone (Medrol (Chad)) 4 mg tablets,dose kgusVmlowjfxvwhk7CX per package reafgmmoth343Smpt 2024 11:00pmJun2024 7:09amPO PER PKG DIRLevothyroxine 137 mcg zqxsxofEfmblpxtlnks353PNUNVCktjs088Bxwcrhimj 2024 1:09pmNov2024 9:52amLevothyroxine 175 mcg pacflpDawyokgwphom021WLNCD DailySeptember 2022 11:00pmApril 2023 1:15pmMetformin 500 mg tablet extended release 24 cmNggrpckecfxh212MKEGPcksryjVepqpcyhz 18th, 2023 11:00pm December 01, 2022 12:05pmPropranolol 120 mg capsule,extended release 24 hr Nijozrrizdub606IXRKCxjkt107Wmmdeqkix 2022 11:00pmApril 2023 1:15pm Levothyroxine 137 mcg zlzcxgcBjelchuttffv590USQEFNyjrd146Mvhmnkawl 2022 11:00pmMarch 2024 12:56pmMetformin 500 mg tablet extended release 24 hr Mqvualcagdsr506BRHKEqdxg yinvm611598Nsuyaoigp 20th, 2023 12:05pmApril 2023 1:15pmPropranolol 120 mg capsule,extended release 24 vyDoqbwiexllzl223EHGRKbrlc July 11, 2023 11:00pmJune 2023 12:46pmMethylprednisolone (Medrol (Chad)) 4 mg tablets,dose fxgeDlajydojtyfw3LSikn package uwcdfftkce4849Fqlv 2023 11:00pmSept2023 10:05amContact dermatitis due to poison abena Allergic contact dermatitis due to plants, except foodPO PER PKG DIR Methylprednisolone (Medrol (Chad)) 4 mg tablets,dose udepKrwmpzowfgjl0PQmcg package rdotrgmdmr3800Yiukxoyqp 2023 10:05amOctober 2023 10:01am Contact dermatitis due to poison abena Allergic contact dermatitis due to plants, except foodPO PER PKG DIRNaltrexone 50 mg dopxozLgpagsjxohvf37APTJIufdq vaglx789Twjyuknlw 25th, 2024 11:00pmDecember 2023 1:07pmBupropion Hcl 100 mg pqpqtpMbgdpwfoyotp435VEXMTdwnf dneqh536 December 07, 2023 11:00pmJanuary 26, 2024 11:27amDoxycycline Monohydrate 100 mg dhrxkdUqfyhuotsgpp873EKMDJelsu mkfhp44361Cwxvzytd2023 12:00am[facility] 2024 10:47amBronchitis Maxillary sinusitis Bronchitis, not specified as acute or chronic Chronic maxillary sinusitisFluconazole 150 mg tvxcosMgptsbkmbfir511DVHQO2G632 February 15, 2024 12:00am[facility] 2024 10:47amTake 1st dose at onset of symptoms then repeat in 3 days if continued symptomsPhentermine (Adipex-P) 37.5 mg phbfznHcoceehbwouz78.9SOHVBdnyp87792Srybgupr 4th, 2024 12:00amJanuary 2024 11:51amClass 1 obesity Obesity, unspecifiedmust administer 30 minutes before or 1-2 hours after breakfastPhentermine (Adipex-P) 37.5 mg albsqwVytppmrwcjcr63.5OEIULbadg04457 May 16, 2024 10:47amApril 2024 10:09amClass 1 obesity Obesity, unspecifiedmust administer 30 minutes before or 1-2 hours after breakfastLevothyroxine 175 mcg qvtcrpTacoem011KMAZNEosybZpddwgiu 17th, 2025 12:00amComplies with drug therapyEstradiol 0.025 mg/24 hr patch weekly Yirmuymzmras1LYIKBEHAZYYWFARbjcfg 2024 12:00am[facility] 2024 11:24amMetformin 500 mg tablet extended release 24 zeBvkpyqkycfbf3572XMUP dailyJanuary 28, 2025 12:00am[facility] 2024 10:46amProgesterone Micronized 100 mg ybxovlyYaiykhotgltp079LDQMAqgvySatbqmfb 17th, 2025 12:00am February 19, 2025 11:26amFurosemide 20 mg tabletDiscontinued0.ROUTE.COMPLEX as neededJanuary 28, 2025 9:52am[facility] 2024 11:26amTAKE 1 TABLET BY MOUTH EVERY DAY PRN;Semaglutide/NAM/MeCbl 0.3 mg/0.25 mLDiscontinued0.25MLSUBCUTevery 2024 12:00am[facility] 2024 11:27amClass 1 obesity Body mass index (BMI) of 31.0 to 31.9 in adult Prediabetes Polycystic ovary syndrome Obesity, unspecified Body mass index [BMI] 31.0-31.9, adult Prediabetes Polycystic [facility] syndromeB[facility] Pre-filled Syringes using Semaglutide Base 0.3 mg/Niacinamide 0.25 mg and Methylcobalamin 1 mcg Dispense 1 mL - (Four 0.25 mL pre-filled syringes)Metformin 1,000 mg tablet Zvhgfq5643OWXOUwggsQlrkabce 2024 12:00amComplies with drug therapy Azithromycin 250 mg nrjjiuQflkaw4LQyjpba084Aehmtvpc 2024 12:00amBronchitis Bronchitis, not specified as acute or chronicTake 2 on day 1 and then take 1 for the next 4 days (days 2-5)Complies with drug therapyMethylprednisolone (Medrol (Chad)) 4 mg tablets,dose ylhsTfvgoc3LPuer package fztcpxdcts997Vispwtdh 2024 12:00amPO PER PKG DIRComplies with drug therapyFluconazole 150 mg tablet Aeucmg638EBMFJ2U417Qcfolkye 2024 12:00amTake 1st dose at onset of symptoms then repeat in 3 days if continued symptomsComplies with drug therapyPhentermine (Adipex-P) 37.5 mg lybguuQwlpne11.0MPBPLmpjr12309Hxinwvmv 2024 12:00am Class 1 obesity Obesity, unspecifiedmust administer 30 minutes before or 1-2 hours after breakfastComplies with drug therapyPrednisone 20 mg rvwpyeXrujkdjdyreb25ZWOG Twice bklfw429Muddtkfc 2023 12:00amApril 2023 1:15pmCephalexin 500 mg zflrmckXbgzxyhffimm144BDOBAwnwp 8 rbjvl2261Oewpjjav 2023 12:00amApril 2023 1:15pmFluconazole 150 mg qukajzRrodmdcuaero753WYHJD8I88Qrodgqmz 2023 12:00amApril 2023 1:15pmLiothyronine 5 mcg qcovkhTnvccpzonssx0YEYZW DailyApril 2023 11:00pmNovember 2024 9:55amBuspirone 5 mg tablet Bbcehpjgciou5CWYQVzthp daily as needed for itzrgjj347Ndtax 2023 11:00pmJune 2023 12:46pmNaltrexone-Bupropion (Contrave) 8-90 mg tablet extended jmdryyuWpewdyygdtxl7MKGJMMqgqe dailyJuly 2023 11:00pmJuly 2023 2:18pmNaltrexone-Bupropion (Contrave) 8-90 mg tablet extended release Dybqcfbdluko7TRXMGBbxgs dailyJuly 2023 2:18pmSeptember 2023 7:13am Phentermine (Adipex-P) 37.5 mg eddlaxGqqwkgwpcgdz37.8LAEGPthov52166Tlzickw 2024 11:48amFebruary 2024 2:57pmClass 1 obesity Obesity, unspecifiedmust administer 30 minutes before or 1-2 hours after breakfastPrednisone 10 mg idocxqMkigajkkikog32CFNNnyjfr394Zdmx 2024 11:00pmNovember 2024 9:52amContact dermatitis due to poison abena Allergic contact dermatitis due to plants, except foodTake 40 mg for 2 days, 30 mg for 2 days, 20 mg for 2 days, 10 mg for 2 days, 1/2 tablet for 2 days Triamcinolone Acetonide 0.1 % mxvjkBkbunjlzepbt7VLNRIFIXUTLVJWxapi mjuoc856Iwct 2024 11:00pmNovember 2024 9:52amContact dermatitis due to poison abena Allergic contact dermatitis due to plants, except food Immunizations Immunization Event Date Not Given Reason Dose Number Special Equipment Technician Lot Number Reason(s) Given Vaccine Information Statement (VIS) Detail Administration Location COVID-19 Ad26.COV2.S ([employer]) August 14, [id number] Gregory Acuña (RemitDATA)April 20, [id number] Procedures Procedure Date Performed Status Urine Culture December 26, 2024 completed Relevant Diagnostic Tests and/or Laboratory Data Laboratory Results Test Collection Date/Time Result Date/Time Result Interpretation Reference Range Result Comment Performing Site Free Thyroxine December 26, 2024 7:01am December 26 7:01am 0.94 ng/dL 0.76-1.46Thyroid Stimulating Hormone 3rd GenOct2024 7:01amDecember 26, 2024 7:01am6.381 u[iU]/mLAbove high normal0.358-3.740Free Triiodothyronine December 26, 2024 7:01amDecember 26, 2024 7:01am2.64 pg/mL2.18-3.98Alanine Aminotransferase (ALT/SGPT)December 31, 2024 9:19amDecember 31, 2024 9:19am11 U/L7-38HemoglobinOct2024 9:19amDecember 31, 2024 9:19am12.5 g/dL 11.5-15.5AlbuminOct2024 9:192024 9:19am4.0 g/dL 3.9-4.9Nucleated Red Blood Cells #December 31, 2024 9:192024 9:19am<0.01 k/uL<0.01Aspartate Amino Transf (AST/SGOT)December 31, 2024 9:19am December 31, 2024 9:19am19 U/E00-52Cctehgem CountOct2024 9:19am December 31, 2024 9:27wu176 k/uE775-859Kkqzl BilirubinOct2024 9:19am December 31, 2024 9:19am0.5 mg/dL0.2-1.3Mean Corpuscular HemoglobinOct2024 9:19amDecember 31, 2024 9:19am26.9 pg26.0-34.0Carbon Dioxide Level December 31, 2024 9:2024 9:19am22 mmol/V44-93Wqzz Corpuscular Hemoglobin ConcentOct2024 9:19amOct2024 9:19am31.5 g/dL 30.5-36.0Chloride LevelOct2024 9:19amDecember 31, 2024 9:60gc250 mmol/G36-083Zyfl Corpuscular VolumeOct5 9:2024 9:am85.6 fL80.0-100.0CreatinineDecember 31, 2024 9:2024 9:am0.73 mg/dL0.58-0.96Red Blood CountDecember 31, 2024 9:amDecember 31, 2024 9:19am4.64 m/uL3.90-5.20Random GlucoseDecember 31, 2024 9:amDecember 31, 2024 9:am88 mg/sT46-75Cci [place] Diabetes Association (ADA) provides guidance for cutoff values for fasting glucose andrandom glucose. The ADA defines fasting as no caloric intake for at least 8 hours. Fasting plasma gl ucose results between 100 to 125 mg/dL indicate increased risk for diabetes (prediabetes).Fasting plasma glucose results greater than or equal to 126 mg/dL meet the criteria for diagnosis of diabetes. In the absence of unequivocal hyperglycemia, results should be confirmed by repeat testing. In a patient with classic symptoms of hyperglycemia or hyperglycemic crisis, random plasma glucose resultsgreater than or equal to 200 mg/dL meet the criteria for diagnosis of diabetes.Reference: Standard[employer] in Diabetes 2016, [place] Diabetes Association. Diabetes Care. 2016.39(Suppl 1).HematocritDecember 31, 2024 9:2024 9:am39.7 %36.0-46.0Potassium LevelDecember 31, 2024 9:amDecember 31, 2024 9:19am4.3 mmol/L3.7-5.1Corrected White Blood Count December 31, 2024 9:2024 9:am7.13 k/uL3.70-11.00Serum Total ProteinDecember 31, 2024 9:amDecember 31, 2024 9:19am6.8 g/dL6.3-8.0Red Cell Distribution WidthDecember 31, 2024 9:amDecember 31, 2024 9:19am13.8 % 11.5-15.0Sodium LevelDecember 31, 2024 9:amDecember 31, 2024 9:64br460 mmol/Q833-973Bypo Platelet VolumeDecember 31, 2024 9:19amDecember 31, 2024 9:19am9.3 fL9.0-12.7Blood Urea NitrogenDecember 31, 2024 9:19amDecember 31, 2024 9:19am9 mg/dL7-21Alkaline PhosphataseDecember 31, 2024 9:19amDecember 31, 2024 9:19am72 U/F92-971Shudzvp LevelDecember 31, 2024 9:19amDecember 31, 2024 9:19am8.9 mg/dL8.5-10.2Anion GapOct2024 9:19amDecember 31, 2024 9:19am13 mmol/L8-15Estimated GFR (CKD-EPI)December 31, 2024 9:19amDecember 31, 2024 9:48jz822 mL/min/1.73m???>=60Estimated Glomerular Filtration Rate (eGFR) is calculated using the 2020 CKD-EPI creatinine equation. This equation utilizes serum creatinine, sex, and age as parameters. The creatinine assay has tra eable calibration to isotope dilution-mass spectrometry. Refer to KDIGO guidelines for clinical interpretation. In patients with unstable renal function, e.g. those with acute kidney injury, the eGFRmay not accurately reflect actual GFR. Microbiology Results Procedure Source Result Collection Date/Time Result Date/Time Result Comment Performing Site Urine Culture Urine, Clean-Voided Midstream 2 Days December 26, 2024 7:50am December 28, 2024 10:44am [facility] [id number] [address] [place] [address] Vital Signs Vital Reading Result Reference Range Collection Date/Time Height 68.5 [in_i] January 28, 2025 10:35zeSehhej42.20 kgNov2024 10:00amHeart Rate 114 /rll78-726VcayfuevJanuary 28, 2025 10:00amRespiratory rate18 /cxr92-50AgvavdgaJanuary 28, 2025 10:00amBP Zkaynvxl730 mm[Hg]100-140January 28, 2025 10:00amBP Ycykerugb69 mm[Hg]60-100January 28, 2025 10:00amBMI (Body Mass Index)31.7 kg/l6ZqiwzosvJanuary 28, 2025 10:42diMjbiso27.5 [in_i]February 19, 2025 11:20am Zezyga45.52 kgDeceer 2024 11:20amBody Fsdiinxlskf56.4 [degF]97.6-99.0 February 19, 2025 11:20amBP Xojjwilh668 mm[Hg]100-140Deceer 2024 11:20am BP Lxsmejiav88 mm[Hg]60-100December 2024 11:20amBMI (Body Mass Index)32.2 kg/x1Pottleyt 2024 11:20am Advance Directives Advance Directive Response Recorded Date/ Time Advance Directives No April 12, 2017 2:55pm Insurance Providers Guarantor Karlene Alfaro Address [address] [facility] [address]Usucwfj Info.Home Phone: Payer Group Member ID Coverage Type Subscriber Relationship to Subscriber Effective Date Expiration Date Harpal PETERSEN Id: [id number] Lesher , M Id: [id number] [address] [facility] [address] Home Phone: Email: Declined 2020 Encounters Encounter Location(s) Arrival/Admit Date Discharge/Departure Date Discharge/Departure Disposition Provider(s) Departed Referred -[facility] December 26, 2024 7:50am December 26, 2024 7:51am Discharged to home care or self care (routine discharge) Brit Hawkins MD Non-patient / Non-visit -[facility] O ctober 2024 8:01am Brent Viramontes-patient / [facility] 2024 10:19DONALD Cerratoeparted Physician/Provider Office Visit-[facility] January 28, 2025 9:25amNovember 2024 10:48amDischarged to home care or self care (routine discharge)Jean Falcon DNPDeparted Physician/Provider [facility] 2024 12:08pmDischarged to home care or self care (routine discharge)Saniya Mays APRN CNP Recent Diagnosis Onset Date Admit Date Abnormal weight gain Unknown January 282024 9:25am Anxiety Unknown January 28, 9:25am BMI 31.0-31.9,adult Unknown January 9:25am Dietary surveillance and counseling Unknown January 28, 2025 9:25am Exercise counseling Unknown January 9:25am H/O: hysterectomy Unknown January 28, 2025 9:25am History of cholecystectomy Unknown 2024 9:25am Hypothyroidism Unknown January 28, 025 9:25am Migraines Unknown January 28 9:25am Obesity (BMI 30.0-34.9) Unknown January 28, 2025 9:25am PCOS (polycystic ovarian syndrome) Unknown January 28, 2025 9:25am Prediabetes Unknown January 28, 9:25am Obesity (BMI 30.0-34.9) Unknown February 19, 2025 11:18am Prediabetes Unknown February 19 11:18am Vitamin D deficiency Unknown February 11:18am Assessments Diagnosis Onset Date Resolution Status Admit Date Abnormal weight gain acuteJanuary 28, 2025 9:25amAnxietyacuteNov2024 9:25amBMI 31.0-31.9,adultacuteJanuary 28, 2025 9:25amDietary surveillance and counselingacuteJanuary 28, 2025 9:25amExercise counselingacuteJanuary 28, 2025 9:25amH/O: hysterectomyacuteJanuary 28, 2025 9:25amHistory of cholecystectomyacuteJanuary 28, 2025 9:25amHypothyroidismacuteJanuary 28, 2025 9:25amMigrainesacuteNovember 2024 9:25amObesity (BMI 30.0-34.9)acute January 28, 2025 9:25amPCOS (polycystic ovarian syndrome)acuteJanuary 28, 2025 9:25am[facility]abetes[facility] 20[facility] 9:25amObesity (BMI 30.0-34.9) acuteDeceer 2024 11:18amPrediabetesacuteDewh[facility] 2024 11:18amVitamin D deficiencyacuteWashington [facility] 2024 11:18am Plan of Treatment Author Saniya Ma [facility] 2024 10:55amSee above treatment plan. Appointment with registered dietitian made at checkout today. Recommended at least 30 minutes of moderate physical activity most days of the week or 150 minutes weekly in addition to at least 2 days of strength training exercise. Last lab work was done 12/2024, 11/2024. Her thyroid medication was changed by her EMERGING TECHNOLOGIES DIRECTOR at that time and we will recheck soon. Stable at this time. No suicidal or homicidal ideations. Stable at this time without medication. She does have a history of a hysterectomy. She has had gallbladder removal. Follow-up with me in 8 weeks. Initial weight: 212.1 pounds Initial goals: 5% (201), 10%(190). Dietary recommendations: Recommend regular follow-up with our registered dietitian. Appointment with registered dietitian made at checkout today. Exercise considerations: Recommended at least 30 minutes of moderate physical activity most days of the week or 150 minutes weekly in addition to at least 2 days of strength training exercise. LABS: hgba1c 5.8% in 2022; 12/2024, 11/2024 high TSH; will recheck hgba1c in the office at next OV Medication considerations: stop Metformin; start compounded Semaglutide 0.3 mg once weekly from [facility] Plan: Karlene is a 34-year-old female who presents today for abnormal weight gain. She states that she has struggled with her weight around the age of 29. She has been on low carbohydrate and keto diets without success. She has been on Mounjaro in the past which helped very much so. She was on compounded semaglutide from [facility] in the past as well however she did not stay on this medication long enough to see a difference. She was previously on Adipex as well but for a short time. She is active daily and walks a lot. She does struggle with health issues, work stress, family weight issues, late-night snacking. She does skip meals and does not eat breakfast or lunch and only eats dinner. Her medical history includes hypothyroidism (sees Dr. Roland), prediabetes, migraines, anxiety, hysterectomy, cholecystectomy, PCOS, will be seeing surgeon to remove the left ovary in the near future. Last lab work was done hgba1c 5.8% in 2022; 12/2024, 11/2024 high TSH; will recheck hgba1c in the office at next OV. Based on her BMI and comorbidities, she is a candidate for GLP-1 medication. We will start compounded semaglutide 0.3 mg once weekly from [facility]. Medication profile and possible side effects reviewed with patient today. Patient to take as prescribed. She is scheduled with a registered dietitian at checkout today. We will plan on rechecking her hemoglobin A1c at her next office visit as her metformin will be stopped today as well. Her metformin does cause her a lot of GI issues and this is the reason for it being stopped since she is starting the compounded semaglutide. Recommended at least 30 minutes of moderate physical activity most days of the week or 150 minutes weekly in addition to at least 2 days of strength training exercise. Body composition analysis per SECA scan completed today at patient visit. Results reviewed with patient. Detailed report found located in patient chart. She will follow-up in the office with me in 8 weeks or sooner if needed. It was discussed with patient that our role is to help them to understand the underlying complex biology of obesity as a disease and offer tools and support for overall health goals and set realistic expectations for weight loss. Understands that the treatment plan is personalized to the best of knowledge and ability with priority to decreasing wt related comorbidities as well as increasing functional capacity and quality of life. Will work with pt to help overcome barriers with the understanding that treatment plan may irrigator overhead time and tools, such as medications, do have limitations. Medications, as applicable, were discussed including up-to-date studies and effectiveness, risks and benefits, common side effects, MOA, etc. Regardless of medications, lifestyle change takes precedence. I highly recommended decreasing or eliminating caloric beverages especially sweetened beverages and alcohol. Pt should prioritize preplanning, shopping at the edge of the store, decreasing unhealthy food cues. I recommended packing snacks and meals when out of the home. No macronutrient is completely restricted. We discussed the addictive nature and unhealthy biological changes that occur with ultra processed food and how it may influence chronic disease. I highly recommended preference for whole foods/real foods and decrease added sugar, refined starches, and added fats. The plate method discussed and handout given. Lean unprocessed protein with each meal and each snack to help control appetite, decrease cravings and lessen muscle loss with weight loss advised. The patient will ideally try to get at least 5 or more servings of low carbohydrate veggies daily. Benefits of regular exercise including cardio and resistance training discussed and recommended, slowly increasing activity, as appropriate for the patient. Consider our armhole baster jumpbasting for guidance. Handout given. We offer individual and group visits from several different practitioners which was also recommended to help with long-term behavioral change and support. The patient was instructed on good sleep hygiene and the importance of adequate sleep. Circadian rhythm and the importance of mealtime discussed. I recommended stress reduction and controlling factors within reasonable control. The majority of today's visit was spent evaluating patient, counseling/educating patient on the options for the treatment of obesity and weight related health issues. See above treatment plan. Last lab work was done hgba1c 5.8% in 2022; 12/2024, 11/2024 high TSH; will recheck hgba1c in the office at next OV. We will stop metformin and start her on compounded semaglutide from [facility]. We will recheck her hemoglobin A1c at her next office visit. It is hoped that through participation in her weight management program, this will improve. Last lab work was done hgba1c 5.8% in 2022; 12/2024, 11/2024 high TSH; will recheck hgba1c in the office at next OV. We will stop metformin and start her on compounded semaglutide from [facility]. We will recheck her hemoglobin A1c at her next office visit. It is hoped that through participation in her weight management program, this will improve. Future Tests Future scheduled test information is unavailable Pending Tests Test Name Ordered Date Scheduled Date Comprehensive Metabolic Panel February 19, 2025 12:02pm Future Visits Future appointment information is unavailable Future Procedures Procedure Name Ordered Date Scheduled Date Vitamin B12 February 19, 2025 11:58am Complete Blood Count Auto DiffDecember 2024 12:02pmIron and TIBC Profile February 19, 2025 11:58amLipid PanelDecember 2024 12:02pmVitamin D 25 Hydroxy TotalDecemb2024 11:58am Future Medications Future medication information is unavailable Patient Instructions Patient instructions are unavailable
--- OUTSIDE RECORDS SUMMARY | 2025-02-20 07:55 | XMS_ITS | CCD ---
Author Organization [facility] Care Team Providers Care Lab Aid Name Role Phone Treasure Quezada Unavailable SURYA [...] Care Provider DO Marcio Steven Emergency Provider [phone] MD Baljinder Polanco Admit Provider [phone] MD Baljinder Polanco Attending Provider Jason Beasley Unavailable Surya Hodges MD Primary Care Provider [phone] Surya Hodges MD Primary Care Provider [phone] Surya Hodges MD Primary Care Provider Saniya Mays APRN Primary Care Provider Asuncion MERCADO, Brent Attending Provider [phone] Kamaljit Ayala MD Attending Provider Saniya Mays APRN Attending Provider CIRO ROLANDY Attending Unavailable CIRO ROLANDY Attending Unavailable YESICA MCNAIR Attending Unavailable ASUNCION, BRENT Attending Unavailable Saniya Mays APRN Primary Care Provider Asuncion , Brent Attending Provider Surya Hodges MD Primary Care Provider Kamaljit Ayala MD Unavailable [phone] SURYA HODGES Primary Care Unavailable NATO HAWKINS Attending Unavailable AYALA, Kamaljit R Attending Unavailable AYALA, Kamaljit R Attending Unavailable AYALA, Kamaljit R Attending Unavailable AYALA, Kamaljit R Attending Unavailable AYALA, Kamaljit R Attending Unavailable AYALA, Kamaljit R Attending Unavailable AYALA, Kamaljit R Attending Unavailable AYALA, Kamaljit R Attending Unavailable AYALA, Kamaljit R Referring Unavailable AYALA, Kamaljit R Attending Unavailable Rohrbacher aSniya VAZQUEZ Primary Care Provider Brent Roland DO Attending Provider [phone] Lucy STILES, Kamaljit Attending Provider [phone] Nato Hawkins MD Attending Provider Nato Hawkins Admitting Unavailable Michelle-Zurdo, Nato Dejesus Attending Unavailable Rohrbacher, Saniya Primary Care Unavailable Ayala, Kamaljit Admitting Unavailable Ayala, Kamaljit Attending Unavailable ROHRBACHER, SANIYA A Primary Care Unavailab le MICHELLE-ZURDO, NATO Referring Unavailable ROHRBACHER, SANIYA A Primary Care Unavailab le SURYA HODGES Primary Care Unavailable MICHELLE-ZURDO, NATO Admitting Unavailable MICHELLE-ZURDO, NATO Attending Unavailable ROHRBACHER, SANIYA A Primary Care Unavailab le MICHELLE-ZURDO, NATO Referring Unavailable ROHRBACHER, SANIYA A Primary Care Unavailab le Allergies Allergy ClassificationReported Allergen(s)Allergy TypeDate of OnsetReaction(s) Facility (20 sources)Azithromycin; Translations: [azithromycin]Drug Nnmbwvq93-11-1085 rash, Eruption of skin (disorder)[facility] (20 sources)whooping coughPropensity to adverse jpixtixwp70-04-0484lcvyfijn injection siteSt. [facility] (16 sources)Bordetella pertussis filamentous hemagglutinin vaccine, inactivated / Bordetella pertussis fimbriae2/3 vaccine, inactivated / Bordetella pertussis pertactin vaccine, inactivated / Bordetella pertussis toxoid vaccine, inactivated / diphtheria toxoid vaccine, inactivated / tetanus toxoid vaccine, inactivated; Translations: [diphtheria/pertussis, acel/tetanus adult]Drug Fxpohaz82-66-5570Pizydbt, Comment:vaccineExec[facility] (20 sources)Clindamycin; Translations: [clindamycin]Drug Hwbpgkl20-08-9324Uycp, HivesExecutive [facility]rology of L[facility] HospitalComment on above: Onset Date: 03/14/2019 (2 sources)acellular pertussis vaccine, inactivated / diphtheria toxoid vaccine, inactivated / tetanus toxoid vaccine, inactivatedDrug AllergyOhio State [facility] System [facility] (2 sources)ClindamycinDrug AllergyOhio State Health System Repository (11 sources)vaccine adjuvant system, AS01B liposomalAllergy to substance 61-88-3922HyahOfobfdwroThe [facility] (17 sources)Ehffvjf-Ihasct-Arsex PertussisPropensity to adverse reactions 93-19-7889QoevhjuiBPBZ Healthcare Work Phone: (10 sources)diphtheria,pertussis (acellular),teAllergy to ovtmulscj02-09-7454 Comment:[facility] HospitalComment on above:Onset Date: 03/14/2019 (9 sources)PenicillinsAllergy to -12-3615QexxpIvcontamtSalem Regional Medical Center (11 sources)Tetanus-Diphtheria Toxoids TdDrug Jlggkmz07-42-5279BrbofGXZF Healthcare (4 sources)Dtap-Ipv Component 1 Of 2 (Pf); Translations: [DTAP-IPV COMPONENT 1 OF 2 (PF)]Drug Klpclfytwhy94-62-4538UdxjjfzsfkxWtknwrxnz Clinic (1 source)DIPHTHERIA,PERTUSSIS(ACELL),TETANUS PEDI VACCINE; Translations: [DIPHTHERIA,PERTUSSIS(ACELL),TETANUS PEDI VACCINE]Propensity to adverse reactions to drug (disorder)77-98-8244JscwdjrpgGreene [facility] (1 source)TETANUS-DIPHTHERIA TOXOIDS-TD; Translations: [TETANUS-DIPHTHERIA TOXOIDS-TD]Propensity to adverse reactions to drug (disorder)81-46-7907KxcljokzeGreene Memorial Hospital Repository Medications Current Medications MedicationDrug Class(es)DatesSig (Normalized)Sig (Original)0.5 ML tirzepatide 5 MG/ML Auto-Injector [Mounjaro] (1 source)Start: 18-46-6334eidqxd 1 mg by subcutaneous injection every week Mounjaro 2.5 mg/0.5 mL subcutaneous solution mg, SubCutaneous, qWeek, Refills(s) 0 Start Date: 01/13/22 Status: Ordered Repeat number: 1acetaminophen 300 mg / codeine phosphate 30 mg oral tablet (3 sources)Opioid AgonistStart: 07-10-2024 End: 34-55-3207cqoj 1 tablet by mouth every six hours for painacetaminophen- codeine (Tylenol w/ Codeine #3) 300-30 MG tablet Indications: Pelvic pain Take 1 tablet by mouth every 6 (six) hours if needed for severe pain for up to 7 days 28 tablet 07/10/2024 07/17/2024 Klzdxnmqx516407 60 actuat albuterol 0.09 mg/actuat metered dose inhaler (2 sources)beta2-Adrenergic AgonistStart: 15-38-4307isqj 2 puff(s) by inhalation every four hours as neededAlbuterol Sulfate HFA 108 (90 Base) MCG/ACT 2 puff Inhalation every 4 hrs prn Mar, ActiveStart: 17-23-3365klve 2 puff(s) by inhalation four times daily as neededAlbuterol Sulfate HFA 108 (90 Base) MCG/ACT 2 puffs Inhalation qid prn Mar, Activeamoxicillin 500 mg oral capsule (2 sources)Penicillin-class AntibacterialStart: 43-54-2700desl 1 capsule by mouth every eight hoursAmoxicillin 500 MG 1 capsule Orally every 8 hrs for 7 days Mar, Activebenzonatate 200 mg oral capsule (1 source)Non-narcotic AntitussiveStart: 47-35-4407mrsw 1 capsule by mouth every eight hoursBenzonatate 200 MG 1 capsule Orally Three times a day for 10 day(s) Mar, Activecefdinir 300 mg oral capsule (1 source)Cephalosporin AntibacterialStart: 14-68-3950Bddqkpsm 300 MG as directed Orally bid for 7 days Mar, Activecephalexin 500 mg oral capsule (12 sources)Cephalosporin AntibacterialStart: 97-30-9736ddoj 1 capsule by mouth every twelve hourscephALEXin (KEFLEX) 500 mg capsule Take 1 capsule by mouth every 12 hours. 11/15/2024 ActiveStart: 05-04-2023 End: 36-01-5825qxcq 1 capsule by mouth every eight hoursCephalexin 500 mg capsule Discontinued 500 MG PO Every 8 hours 01 10May 04, 2023 1:00am June 17, 2023 2:15pmCelexa (7 sources)Serotonin Reuptake InhibitorStart: 54-19-2311Jbldcu Refills(s) 0 Start Date: 05/21/22 Status: Ordered Repeat number: 1Start: 73-60-0143Cppxpt Refills(s) 0 Start Date: 05/21/22 Status: Ordered End: 81-29-2230mhiw 1 tablet by mouth in the morningcitalopram (CeleXA) 20 MG tablet Take 20 mg by mouth in the morning. 0 04/21/2023 Discontinued (Therapy completed)estradiol 0.5 mg oral tablet (1 source)EstrogenStart: 38-48-3566wxox 2 tablets by mouth once dailyestradiol 0.5 mg Tab mg tab(s), Oral, Daily, Refills(s) 0 Start Date: 01/13/22 Status: Orderedfluconazole 150 mg oral tablet (20 sources)Azole AntifungalStart: 76-35-7881chfzyprnkll (Diflucan) 150 MG tablet Indications: Yeast infection TAKE 1 TABLET BY MOUTH FOR ONE SINGLE DOSE 1 tablet 3 10/01/2024 ActiveStart: 02-15-2024 End: 40-93-8990Qguakffpklc 150 mg tablet Discontinued 150 MG PO Q3D 2 February 15, 2024 1:00am May 16, 2024 11:47am Take 1st dose at onset of symptoms then repeat in 3 days if continued symptomsStart: 05-04-2023 End: 10-68-5745Xmjpwqhjqwf 150 mg tablet Discontinued 150 MG PO Q3D 2 May 04, 2023 1:00am June 17, 2023 2:15pmStart: 02-23-2023 End: 72-29-7775szoa 1 tablet by mouth oncefluconazole (Diflucan) 150 MG tablet Indications: Vaginal yeast infection TAKE 1 TABLET BY MOUTH ONE TIME FOR 1 DOSE 1 tablet 02/23/2023 07/10/2024 DiscontinuedStart: 37-04-0858Fxamqxst 150 MG 1 tablet Orally x1 for 1 days Mar, ActiveProzac (3 sources)Serotonin Reuptake InhibitorStart: 74-31-5795Aoresq Oral, Daily, Refills(s) 0 Start Date: 01/13/22 Status: Ordered Repeat number: 1Start: 23-96-6658Csmyfk Oral, Daily, Refills(s) 0 Start Date: 01/13/22 Status: Ordered furosemide 20 mg oral tablet (20 sources)Loop DiureticStart: 12-15-2023 End: 14-05-0667wvji 1 tablet by mouth once dailyStart: 07-11-2023 End: 69-65-7058nbuz 1 tablet by mouth once dailyFurosemide 20 mg tablet Discontinued 20 MG PO Daily September 08, 2023 4:05pm December 15, 2023 9 :06amibuprofen 800 mg oral tablet (16 sources)Nonsteroidal Anti-inflammatory DrugStart: 07-10-2024 End: 58-46-8594mfvd 1 tablet by mouth every eight hours as needed for pain ibuprofen 800 MG tablet Indications: Pelvic pain TAKE 1 TABLET BY MOUTH EVERY 8 HOURS NEEDED FORMILD PAIN 60 tablet 3 09/03/2024 Activeiv contrast (will be provided with radiology test) (1 source)Start: 11-21-2024 End: 27-95-3894fk contrast (will be provided with radiology test) [...] administration guidelines link. 1 each 11/21/2024 11/22/2024 Activelevothyroxine sodium 0.137 mg oral capsule (20 sources)l-ThyroxineStart: 69-83-6757usdx 1 tablet by mouth before mealtime levothyroxine (Synthroid, Levoxyl) 137 MCG tablet Take 137 mcg by mouth in the morning. Take beforemeals. 12/07/2022 ActiveStart: 12-01-2022 End: 53-99-5863ifcb 1 capsule by mouth once dailyStart: 11-30-2022 End: 98-33-9796aoym 1 tablet by mouth once dailyLevothyroxine 175 mcg tablet Discontinued 175 MCG PO Daily November 30, 2022 12:00am June 17, 2023 2:15pmStart: 45-86-7836Yqxphwwme 150 mcg (0.15 mg) Tab Oral, Refills(s) 0 Start Date: 01/11/22 Status: Ordered Repeat number: 1take 1 tablet by mouth every twenty-four hoursSynthroid 137 MCG 1 tablet Orally Once a day Activetake 1 tablet by mouth every twenty-four hoursSynthroid 175 MCG 1 tablet Orally Once a day Activeliothyronine sodium 0.005 mg oral tablet (20 sources)l-TriiodothyronineStart: 72-27-6553hszo 1 tablet by mouth once daily take 1 tablet by mouth every twenty-four hoursLiothyronine Sodium 5 MCG 1 tablet once a day Ojngoa76 hr metFORMIN hydrochloride 500 mg extended release oral tablet (20 sources)BiguanideStart: 10-09-2024 End: 07-03-6635cqkw 2 tablets by mouth every twenty-four hours at mealtime metFORMIN XR (Glucophage-XR) 500 MG 24 hr tablet Indications: Insulin resistance Take 2 tablets (1,000 mg) by mouth in the evening. Take with meals Do not crush, chew, or split. 60 tablet 11 10/09/2024 10/09/2025 ActiveStart: 11-30-2022 End: 36-07-3606wbuy 1 tablet by mouth twice dailyMetformin 500 mg tablet extended release 24 hr Discontinued 500 MG PO Twice daily 180 90 December 01, 2022 1:05pm June 17, 2023 2:15pmStart: 10-12-2022 End: 74-64-3888jodj 1 tablet by mouth every twenty-four hours at bedtime Metformin 500 mg tablet extended release 24 hr Discontinued 500 MG PO Bedtime November 30, 2022 12:00am December 01, 2022 1:05pmmethenamine hippurate 1000 mg oral tablet (7 sources)Start: 08-65-5913tecr 1 tablet by mouth twice dailymethenamine hippurate 1 g oral tablet 1 gm = 1 tab(s), Oral, BID, # 60 tab(s), Refills(s) 1, Pharmacy: [facility]/pharmacy #[id number] Start Date: 09/06/24 Status: Ordered Quantity: 60.0 Unit: tab(s) Repeat number: 2take 1 tablet by mouth in the morningmethenamine hippurate (Hiprex) 1 g tablet Take 1 g by mouth in the morning and 1 g before bedtime. Ljohus83 hr mirabegron 50 mg extended release oral tablet (9 sources)beta3-Adrenergic AgonistStart: 09-06-2024 End: 08-04-0743niej 1 tablet by mouth once dailymirabegron (MYRBETRIQ) 50 mg Tb24 Take 1 tablet by mouth once daily. 09/06/2024 ActiveMounjaro 2.5 mg/0.5 mL subcutaneous solution (2 sources)Start: 42-64-3961dltkvi 1 mg by subcutaneous injection every week Mounjaro 2.5 mg/0.5 mL subcutaneous solution mg, SubCutaneous, qWeek, Refills(s) 0 Start Date: 01/13/22 Status: OrderedZofran (2 sources)Serotonin-3 Receptor AntagonistStart: 83-71-0540Ljdeqm Refills(s) 0 Start Date: 05/21/22 Status: Ordered Repeat number: 1Start: 62-66-0737Zjrezu Refills(s) 0 Start Date: 05/21/22 Status: Orderedphentermine hydrochloride 37.5 mg oral tablet (20 sources)Sympathomimetic Amine AnorecticStart: 10-09-2024 End: 23-31-1598yarb 1 tablet by mouth before mealtimephentermine (Adipex-P) 37.5 MG tablet Indications: Encounter for weight loss counseling Take 1 tablet (37.5 mg) by mouth in the morning. Take before meals. 30 tablet 10/09/2024 11/08/2024 ActiveStart: 02-15-2024 End: 79-07-6311dyjk 1 tablet by mouth once daily 30 minutes after breakfast Phentermine (Adipex-P) 37.5 mg tablet Discontinued 37.5 MG PO Daily March 15, 2024 12:48pmFebruary 2024 3:57pm must administer 30 minutes before or 1-2 hours after breakfastStart: 14-23-6739vmsw 1 tablet by mouth once daily before breakfastAdipex-P 37.5 MG 1 tablet before breakfast Orally Once a day for 30 days Nov, ActiveStart: 29-66-6591kshq 1 tablet by mouth once daily before breakfastAdipex-P 37.5 MG 1 tablet before breakfast Orally Once a day for 30 days Oct, ActiveStart: 39-77-4662slqo 1 tablet by mouth once daily before breakfastAdipex-P 37.5 MG 1 tablet before breakfast Orally Once a day for 30 days Sep, ActivepredniSONE 10 mg oral tablet (20 sources)Start: 43-22-3004dkyt 0.5 tablet by mouth once dailyStart: 12-19-2023 End: 73-40-2194apwf 4 tablets by mouth once daily, then take 3 tablets by mouth once daily, then take 2 tablets bymouth once daily, then take 1 tablet by mouth once dailyPrednisone 10 mg tablet Discontinued 10 MG PO As Directed December 19, 2023 12:00am February 15, 2024 2:02pm 4 daily x 2 days, 3 daily x 2 days, 2 daily x 2 days, 1 daily x 6 daysStart: 05-04-2023 End: 55-77-3078uzpu 1 tablet by mouth twice dailyPrednisone 20 mg tablet Discontinued 20 MG PO Twice daily May 04, 2023 1:00am June 17, 2023 2:15pmStart: 14-34-8275awunjjMBUY 10 MG 4 tabs po daily x 2 days, 3 tabs daily x 2 days, 2 tabs daily x 2 days, 1 tab daily x 2 days Orally Once a day for Oct, ActiveStart: 42-58-3110hmiqkwVQUP 10 MG 4 tabs po daily x 2 days, 3 tabs daily x 2 days, 2 tabs daily x 2 days, 1 tab daily x 2 days Orally Once a day for Aug, ActiveStart: 76-66-6719vkye 1 tablet by mouth every twelve hourspredniSONE 20 MG 1 tablet Orally bid for 5 day(s) Mar, Ewdjwq2581 ml sodium chloride 9 mg/ml injection (1 source)Start: 11-21-2024 End: .9 % sodium chloride (NACL 0.9%) infusion Administer at rate defined per CT contrast administration specifications. To be provided with radiology test. 150 mL 11/21/2024 11/21/2024 Activetamsulosin hydrochloride 0.4 mg oral capsule (7 sources)alpha-Adrenergic BlockerStart: 44-11-6098vjrj 1 capsule by mouth once dailyFlomax 0.4 mg Cap 0.4 mg = 1 cap(s), Oral, Daily, # 30 cap(s), Refills(s) 0, Pharmacy: [facility]/pharmacy#[id number] Start Date: 09/06/24 Status: Ordered Quantity: 30.0 Unit: cap(s) Repeat number: 1Tirzepatide-Weight Management (Zepbound) 2.5 MG/0.5ML solution auto-injector (2 sources)Start: 04-20-2023 End: 19-19-8840iayxgu 1 mL by subcutaneous injection every weekTirzepatide- Weight Management (Zepbound) 2.5 MG/0.5ML solution auto-injector Indications: Insulin resistance Inject 1 Pen under the skin 1 (one) time per week for 28 days 0.5 mL 3 04/20/2023 05/18/2023 ActiveStart: 04-06-2023 End: 90-92-5831tetmqq 2.5 mg by subcutaneous injection every weekTirzepatide- Weight Management (Zepbound) 2.5 MG/0.5ML solution auto-injector Indications: Insulin resistance Inject 2.5 mg under the skin 1 (one) time per week 10 mL 1 04/06/2023 04/21/2023 Discontinued (Therapy completed)triamcinolone acetonide 1 mg/ml topical cream (16 sources)CorticosteroidStart: 79-11-5608Eehlp: 06-72-0435Jnqwbmv-40 Sep, 60 mg24 hr venlafaxine 37.5 mg extended release oral capsule (16 sources)Serotonin and Norepinephrine Reuptake InhibitorStart: 02-23-2023 End: 82-89-1244jmso 1 capsule by mouth every twenty-four hours in the morning venlafaxine XR (Effexor XR) 37.5 MG 24 hr capsule Indications: Anxiety and depression (CMS/HCC) Take 1 capsule (37.5 mg) by mouth in the morning. Do not crush or chew.. 30 capsule 6 02/23/2023 04/21/2023 Discontinued (Therapy completed)take 1 tablet by mouth every twelve hoursVenlafaxine HCl 75 MG 1 tablet with food Orally Twice a day Not-TakingEffexor Active Completed/Discontinued Medications MedicationDrug Class(es)DatesSig (Normalized)Sig (Original)black cohosh extract 20 mg oral tablet (13 sources) End: 33-00-7783cgwc 1 tablet by mouth once dailyBlack Cohosh 20 MG tablet Take 1 tablet by mouth Daily 10/09/2024 Discontinuedtake 1 tablet by mouth once daily Black Cohosh 20 MG tablet Take 1 tablet by mouth Daily ActivebuPROPion hydrochloride 100 mg oral tablet (10 sources)AminoketoneStart: 12-08-2023 End: 27-81-6688ragf 2 tablets by mouth twice dailyBupropion Hcl 100 mg tablet Discontinued 200 MG PO Twice daily 60 January 26, 2024 12:27pm February 15, 2024 2:07pm12 hr buPROPion hydrochloride 90 mg / naltrexone hydrochloride 8 mg extended release oral tablet (14 sources)Opioid Antagonist, AminoketoneStart: 10-03-2023 End: 94-06-7223ekip 2 tablets by mouth twice dailyNaltrexone-Bupropion (Contrave) 8-90 mg tablet extended release Discontinued 2 TAB PO Twice daily [facility] 2023 3:18pm December 08, 2023 8:13ambusPIRone hydrochloride 5 mg oral tablet (8 sources)Start: 06-17-2023 End: 92-85-4664tlqv 1 tablet by mouth twice daily as needed for anxietyBuspirone 5 mg tablet Discontinued 5 MG PO Twice daily as needed for anxiety June 17, 2023 12:00am September 07, 2023 1:46pmciprofloxacin 500 mg oral tablet (1 source)Quinolone AntimicrobialStart: 61-22-3595cjdz 1 tablet by mouth once dailyCipro 500 mg Tab 500 mg = 1 tab(s), Oral, Daily, Take 1 tablet the day before the procedure and 1 tablet after the procedure, # 2 tab(s), Refills(s) 0, Pharmacy: [facility]/pharmacy #[id number] Start Date: 09/11/24Status: Ordered Quantity: 2.0 Unit: tab(s) Repeat number: 1dicyclomine hydrochloride 10 mg oral capsule (14 sources)AnticholinergicStart: 07-03-2024 End: 90-99-5708vcmh 1 capsule by mouth three times daily as neededdicyclomine (Bentyl) 10 MG capsule Indications: Abdominal cramping Take 1 capsule (10 mg) by mouth 3 (three) times a day as needed (cramping) 30 capsule 1 07/03/2024 10/09/2024 Discontinueddoxycycline monohydrate 100 mg oral tablet (7 sources)Tetracycline-class DrugStart: 02-15-2024 End: 20-04-9645tphs 1 tablet by mouth twice dailyDoxycycline Monohydrate 100 mg tablet Discontinued 100 MG PO Twice daily 31 12February 15, 2024 1:00am May 16, 2024 11:47amStart: 57-98-4914agoj 1 capsule by mouth every twelve hours Doxycycline Hyclate 100 MG 1 capsule Orally Twice a day for 5 days Feb, ActiveErgocalciferol (13 sources)Provitamin D2 Compound End: 03-64-1319abjv 1 tablet by mouth once dailyErgocalciferol (VITAMIN D2 PO) Take 1 tablet by mouth Daily 10/09/2024 Discontinuedtake 1 tablet by mouth once dailyErgocalciferol (VITAMIN D2 PO) Take 1 tablet by mouth Daily Active methylPREDNISolone 4 mg oral tablet (20 sources)CorticosteroidStart: 08-27-2024 End: 18-48-9765lfaz 1 tablet by mouth onceMethylprednisolone (Medrol (Chad)) 4 mg tablets,dose pack Discontinued 0 PO per package directions August 27, 2024 12:00am September 05, 2024 8:09am PO PER PKG DIRStart: 10-10-2023 End: 46-90-9513tstf 1 tablet by mouth onceMethylprednisolone (Medrol (Chad)) 4 mg tablets,dose pack Discontinued 0 PO per package directions 01 09December 02, 2023 11:05am December 19, 2023 11:01am PO PER PKG DIRStart: 12-19-6506SKJV- Medrol Oct, 60 mgStart: 11-06-2831Ayzwtr (Chad) 4 MG as directed Orally daily for 6 days Mar, ActivemethylPREDNISolone 4 MG TAKE 6 TABLETS ON DAY 1 DIRECTED ON PACKAGE AND DECREASE BY 1 TAB EACH DAY FOR A TOTAL OF 6 DAYS for 6 ActivemethylPREDNISolone 4 MG TAKE 6 TABLETS ON DAY 1 DIRECTED ON PACKAGE AND DECREASE BY 1 TAB EACH DAY FOR A TOTAL OF 6 DAYS for 6 Active naltrexone hydrochloride 50 mg oral tablet (5 sources)Opioid AntagonistStart: 12-08-2023 End: 05-75-2251bbnw 1 tablet by mouth twice dailyNaltrexone 50 mg tablet Discontinued 25 MG PO Twice daily December 08, 2023 12:00am February 15, 2024 2:07pm24 hr propranolol hydrochloride 120 mg extended release oral capsule (20 sources)beta-Adrenergic BlockerStart: 07-12-2023 End: 53-68-8530nffy 1 capsule by mouth once dailyPropranolol 120 mg capsule,extended release 24 hr Discontinued 120 MG PO Daily July 12, 2023 12:00am September 07, 2023 1:46pmStart: 12-01-2022 End: 54-11-8153syee 1 capsule by mouth every twenty-four hours in the morning propranolol LA (Inderal LA) 120 MG 24 hr capsule Take 120 mg by mouth in the morning. 0 12/01/2022 04/21/2023 Discontinued (Therapy completed)Start: 12-01-2022 End: 51-44-2008njiv 1 capsule by mouth once dailyPropranolol 120 mg capsule,extended release 24 hr Discontinued 120 MG PO Daily December 01, 2022 12:00am June 17, 2023 2:15pmzolpidem tartrate 5 mg oral tablet (5 sources)gamma-Aminobutyric Acid-ergic AgonistStart: 08-14-2024 End: 90-16-2249ptuebxgn (Ambien) 5 MG tablet Indications: Other insomnia Take 1 tablet (5 mg) by mouth as needed at bedtime for sleep for up to 20 doses 20 tablet 08/14/2024 10/09/2024 Discontinued Problems Active Problems Problem ClassificationProblemDateDocumented DateEpisodic/ChronicAbdominal pain (16 sources)Pelvic and perineal pain; Translations: [Unspecified abdominal pain] Onset: 19-56-6531TxhtgdyuUtopx bronchitis (3 sources)Acute bronchitis; Translations: [Acute bronchitis due to other specified organisms]EpisodicAdministrative/social admission (2 sources)Patient encounter status; Translations: [Dietary counseling and surveillance]31-53-2272HmmfmatsSyeasbfz reactions (17 sources)Unspecified contact dermatitis, unspecified cause; Translations: [Allergic contact dermatitis]EpisodicAnxiety disorders (20 sources)Anxiety; Translations: [Anxiety disorder]30-31-4918SfairgzIrglmfic of urinary tract (14 sources)Ureteric stone; Translations: [Calculus of ureter]Onset: 05-11-2022 EpisodicCardiac dysrhythmias (1 source)Supraventricular tachycardia; Translations: [SUPRAVENTRICULAR TACHYCARDIA]Onset: 21-31-5859NhrznevLcpocye dysrhythmias (19 sources)Tachycardia; Translations: [Tachycardia, unspecified]Onset: [id number] on above:Problem List clean-up per request of Phys. EHR CmteChronic obstructive pulmonary disease and bronchiectasis (7 sources)Bronchitis, not specified as acute or chronic; Translations: [Bronchitis]EpisodicE Codes: Adverse effects of medical drugs (10 sources)Allergic reaction caused by antibacterial agent; Translations: [Adverse effect of unspecified systemic antibiotic, initial encounter]05-04-2023 EpisodicEssential hypertension (7 sources)Essential hypertension; Translations: [Essential (primary) hypertension]ChronicGenitourinary symptoms and ill-defined conditions (14 sources)Stress incontinence (female) (male); Translations: [Female stress incontinence]Onset: 15-93-0506HplqabfVxodltjijoupo symptoms and ill-defined conditions (3 sources)Genitourinary symptoms; Translations: [Other symptoms and signs involving the genitourinary system]EpisodicHeadache; including migraine (14 sources)Migraine without aura, not refractory ; Translations: [Other migraine, not intractable, without status migrainosus]23-92-4444Nfinump Inflammatory diseases of female pelvic organs (3 sources)Acute vaginitis; Translations: [Acute vaginitis]EpisodicMalaise and fatigue (7 sources)Fatigue; Translations: [Other fatigue]EpisodicMenopausal disorders (1 source)Hormone replacement therapy; Translations: [HORMONE REPLACEMENT THERAPY]Onset: 06-16-5656ThkczahhAmzftwiop disorders (12 sources)Intermenstrual bleeding - irregular; Translations: [Excessive and frequent menstruation with irregular cycle]Onset: 11-07-2008 Resolved: 14-48-5056NhlevdbOlefqweuwuzcl mental health disorders (3 sources)Lack or loss of sexual desire; Translations: [Hypoactive sexual desire disorder]ChronicMiscellaneous mental health disorders (3 sources)Emotional state finding; Translations: [Other symptoms and signs involving emotional state]EpisodicMood disorders (3 sources)Affective psychosis; Translations: [Unspecified mood [affective] disorder]ChronicMood disorders (7 sources)Mood swings; Translations: [Emotional lability]EpisodicNausea and vomiting (1 source)Nausea with vomiting, unspecified; Translations: [PONV (postoperative nausea and vomiting)]Onset: 70-48-6769AfspfbmxOtxtelccufm chest pain (13 sources)Chest pain, unspecified; Translations: [Chest pain]EpisodicComment on above:Problem List clean-up per request of Phys. 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 therapy; Translations: [OTH [facility] CURRENT DRUG THERAPY]Onset: 84-24-2367RnqqlsqxAacqu aftercare (3 sources)Long-term current use of drug therapy; Translations: [Other termite treater (current) drug therapy]EpisodicOther aftercare (3 sources)History and physical examination, follow-up; Translations: [Encounter for follow-up examination after completed treatment for conditions other than malignant neoplasm]EpisodicOther aftercare (8 sources)Surgical follow-up; Translations: [Encounter for follow-up examination after completed treatment for conditions other than malignant neoplasm]Onset: [id number] circulatory disease (7 sources)Elevated blood-pressure reading without diagnosis of hypertension; Translations: [Elevated blood-pressure reading, without diagnosis of hypertension]EpisodicOther diseases of kidney and ureters (5 sources)Stricture of ureter; Translations: [Crossing vessel and stricture of ureter without hydronephrosis]Onset: 55-66-3694VdcroequYzubk diseases of kidney and ureters (3 sources)Hydronephrosis; Translations: [Hydronephrosis with ureteral stricture, not elsewhere classified]93-48-0680BlhbnvnyZhmvk diseases of kidney and ureters (2 sources)Crossing vessel and stricture of ureter without hydronephrosis; Translations: [Ureteral stricture]Onset: 77-18-8532SgriphqfJlnrn diseases of kidney and ureters (1 source)Hydronephrosis with ureteral stricture, not elsewhere classified; Translations: [Hydronephrosis with ureteral stricture, not elsewhere classified] Onset: 96-92-9239BkasnzccEsjqd endocrine disorders (4 sources)Endocrine disorder, unspecified; Translations: [ENDOCRINE DISORDER UNSPECIFIED]Onset: 95-12-0402TkdjdzvlNiwym endocrine disorders (4 sources)Disorder of endocrine system; Translations: [Endocrine disorder, unspecified]47-25-5864VxujqrmrHruys female genital disorders (1 source)Noninflammatory disorder of ovary, fallopian tube and broad ligament, unspecified; Translations: [OTH NONINFL D/O OVARY TUBE AND BRD LIG]Onset: 95-43-7013HusnfoscVlggh female genital disorders (3 sources)Noninflammatory disorder of the vagina; Translations: [Other specified noninflammatory disorders ofvagina]EpisodicOther female genital disorders (1 source)Ovarian pain; Translations: [Other specified conditions associated with female genital organs and menstrual cycle]73-61-8132AhwtusasWylzx gastrointestinal disorders (1 source)Peritoneal adhesions (postprocedural) (postinfection); Translations: [PERITONEAL ADHES POSTPROC POSTINF]Onset: 99-12-8691IqcmetxbQeczu inflammatory condition of skin (7 sources)Rosacea; Translations: [Other rosacea]Onset: 00-03-2704QopontvVpldo inflammatory condition of skin (3 sources)Itching of skin; Translations: [Pruritus, unspecified]EpisodicOther injuries and conditions due to external causes (1 source)Foreign body in bladder; Translations: [Foreign body in bladder, initial encounter]Onset: 23-55-4326PoehvbstAdhfv lower respiratory disease (1 source)Dyspnea, unspecifiedEpisodicOther lower respiratory disease (1 source)Other abnormalities of breathingEpisodicOther nervous system disorders (8 sources)Acute postoperative pain; Translations: [Other acute postprocedural pain]Onset: 257471-96-1590GfzufwgdMpdva non-traumatic joint disorders (9 sources)Pain in left knee; Translations: [Left knee pain]77-42-1182Kaoleqgf Other nutritional; endocrine; and metabolic disorders (20 sources)Obesity; Translations: [Obesity, unspecified]ChronicOther nutritional; endocrine; and metabolic disorders (2 sources)Obesity, unspecified; Translations: [OBESITY UNSPECIFIED]Onset: 37-60-9152MugqxtiSxvny nutritional; endocrine; and metabolic disorders (13 sources)Obese class I; Translations: [Body mass index (BMI) 32.0-32.9, adult]09-88-5085JiqrtkxHxvhv nutritional; endocrine; and metabolic disorders (7 sources)Simple obesity ; Translations: [Other obesity due to excess calories] Onset: 66-66-3845QsuqbshXlxql nutritional; endocrine; and metabolic disorders (3 sources)Insulin resistance; Translations: [Insulin resistance]04-21-2023 ChronicOther nutritional; endocrine; and metabolic disorders (1 source)Metabolic syndrome X; Translations: [Metabolic syndrome]04-21-2023 ChronicOther nutritional; endocrine; and metabolic disorders (16 sources)Weight gain; Translations: [Abnormal weight gain]EpisodicOther nutritional; endocrine; and metabolic disorders (1 source)Body mass index (BMI) 27.0-27.9, adult; Translations: [BODY MASS INDEX BMI 27.0-27.9 ADULT]Onset: 50-95-7896DcaoirwwHkixr nutritional; endocrine; and metabolic disorders (3 sources)OverweightEpisodicOther nutritional; endocrine; and metabolic disorders (1 source)Body mass index (BMI) 29.0-29.9, adultEpisodicOther nutritional; endocrine; and metabolic disorders (7 sources)Other symptoms and signs concerning food and fluid intake; Translations: [Nutritional status: food and fluid intake]EpisodicOther nutritional; endocrine; and metabolic disorders (1 source)Body mass index (BMI) 28.0-28.9, adultEpisodicOther screening for suspected conditions (not mental disorders or infectious disease) (20 sources)Encounter for screening for malignant neoplasm of cervix; Translations: [Urine test negative]Onset: 65-42-2575CgvzrvxjMtske upper respiratory disease (3 sources)Seasonal allergic rhinitis; Translations: [Other seasonal allergic rhinitis]ChronicOther upper respiratory infections (9 sources)Chronic sinusitis; Translations: [Chronic sinusitis, unspecified] 69-46-4328EgzjkiuTvufk upper respiratory infections (20 sources)Acute upper respiratory infection, unspecified; Translations: [Acute upper respiratory infection]Onset: 02-26-2013 Resolved: 82-25-7116TwrnyxshBxzzmnr cyst (6 sources)Unspecified ovarian cyst, left side; Translations: [Unspecified ovarian cyst, unspecified side]Onset: 02-54-7980EulmkwgaDtchhjwi codes; unclassified (2 sources)Insomnia; Translations: [Other insomnia]54-53-4612RocdnapZlkvjdyi codes; unclassified (1 source)Acquired absence of other specified parts of digestive tract; Translations: [ACQ ABSENCE OTH PART DIGESTV TRACT]Onset: 79-76-3203Auxajaor Residual codes; unclassified (2 sources)Acquired absence of both cervix and uterus; Translations: [ACQUIRED ABSENCE BOTH CERVIX AND UTERUS]Onset: 74-55-1464GjvvpdzaRbkybnda codes; unclassified (3 sources)Flushing; Translations: [Flushing]EpisodicResidual codes; unclassified (3 sources)Localized edema; Translations: [Localized edema]EpisodicResidual codes; unclassified (3 sources)Postprocedural state finding; Translations: [Other specified postprocedural states]EpisodicResidual codes; unclassified (1 source)Other specified postprocedural states; Translations: [PONV (postoperative nausea and vomiting)]Onset: 73-15-8749PvqkxmzsRrizjbi and strains (13 sources)Sprain of other ligament of left ankle, subsequent encounter; Translations: [Sprain of left ankle]Onset: 08-85-7329HmaswvlwYcdklcltacu injury; contusion (8 sources)Nonvenomous insect bite of thigh without infection; Translations: [Insect bite (nonvenomous), rightthigh, initial encounter]Onset: 11-18-2016 70-67-0356JvmvqjkoGasfntn disorders (20 sources)Hypothyroidism; Translations: [Hypothyroidism, unspecified]Onset: 819339-23-1236RuvoehkFfdxgoy disorders (9 sources)Disorder of thyroid gland; Translations: [Disorder of thyroid, unspecified]91-87-3280ArljmnhkLaxtazf on above:Problem List clean-up per request of Phys. EHR CmteUnclassified (1 source)Autogenerated ProblemOnset: Viral infection (6 sources)Genital herpes simplex; Translations: [Herpesviral infection of other urogenital tract] Resolved: 99-16-4713Fgzznxy Past or Other Problems Problem ClassificationProblemDateDocumented DateEpisodic/ChronicContraceptive and procreative management (3 sources)Surveillance of intrauterine device contraception; Translations: [Encounter for routine checking ofintrauterine contraceptive device] Resolved: 12-51-3281UshvelpjVqkauigtooesw and screening for infectious disease (2 sources)Contact with and (suspected) exposure to other viral communicable diseases; Translations: [Encounter for screening for human papillomavirus (HPV)] Onset: 04-08-2021 Resolved: 61-61-6476ErtwtgmfWrcootltwirq; infection of eye (except that caused by tuberculosis or sexually transmitteddisease) (7 sources)External hordeolum; Translations: [Hordeolum externum unspecified eye, unspecified eyelid]Onset: 20-64-2971NrfrhjjoJisthay (3 sources)Candidiasis; Translations: [Candidiasis, unspecified] Resolved: 61-58-7278HjndaxkdDfzhn connective tissue disease (1 source)Pain in left foot; Translations: [PAIN IN LEFT FOOT]Onset: 03-30-2022 EpisodicOther female genital disorders (3 sources)Disorder of female genital organs; Translations: [Unspecified condition associated with female genital organs and menstrual cycle]Onset: 06-10-2008 Resolved: 50-90-6147BavyotuyRnghk lower respiratory disease (7 sources)Snoring; Translations: [Snoring]Onset: 61-50-1531PnuuqvkpJovgt nutritional; endocrine; and metabolic disorders (3 sources)Abnormal weight gain; Translations: [Abnormal weight gain]Onset: 07-53-2149UerumalhZypqtmablxcz (2 sources)Vaginal yeast infection B37.31Unclassified (3 sources)Acute candidiasis of vulva and vagina; Translations: [Acute candidiasis of vulva and vagina] Results Test NameValueInterpretationReference RangeFacilityCNPNon 48-76-8234LGEL Telephone (URON) TAYLORKARLENE ([id number]) 1990 F Date Time Provider Department 01/14/25 GAIL BORRERO During your visit today, we recorded the following information about you: Gail Borrero RN 01/14/2025 9:40 AM Signed Sent NM renal scan order to [facility] in [place] per pt request. Gail Borrero RN Allergies As of Date: 01/14/2025 Noted Allergy Reaction CLINDAMYCIN 11/20/2024 4 - Hives Comments: Rash DIPHTHERIA,PERTUSSIS(ACELL),TETAN*09/23/2022 7 - Swelling DTAP-IPV COMPONENT 1 OF 2 (PF) 11/20/2024 5 - Intolerance Comments: Hives; Rash; Welt TETANUS-DIPHTHERIA TOXOIDS-TD 07/12/2024 14 - Other: See Comments Date Reviewed: 01/07/2025 Reviewed by: Lucretia Dela Cruz, RN - Fully Assessed Prescriptions as of 01/14/2025 - acetaminophen (TYLENOL) 325 mg tablet Take 2 tablets by mouth every 6 hours as needed for pain for up to 10 days. - levothyroxine (SYNTHROID) 175 mcg tablet Take 175 mcg by mouth daily before breakfast. - ciprofloxacin HCl (CIPRO) 500 mg tablet Take 500 mg by mouth two times a day. - estradiol (CLIMARA) 0.025 mg/24 hr patch Apply 1 patch as directed one time a week. - metFORMIN ER (GLUCOPHAGE XR) 500 mg 24 hr tablet Take 500 mg by mouth daily with dinner. - progesterone micronized (PROMETRIUM) 100 mg capsule Take 100 mg by mouth once daily. - ibuprofen (MOTRIN) 800 mg tablet TAKE 1 TABLET BY MOUTH EVERY 8 HOURS NEEDED FOR MILD PAIN Problem List As Of Date 01/14/2025 Noted Resolved Hypothyroidism [E03.9] 12/26/2024 PONV (postoperative nausea and vomiting) [R11.2*12/31/2024 Obesity without serious comorbidity [E66.9] 12/31/2024 Encounter Status:Closed by GAIL BORRERO on 01/14/25[facility] HospitalCNCOon 38-10-1851YYMETsfskx TextNoDiley Ridge Medical CenterANES POSTPROC EVALon 73-60-0462VAWS POSTPROC EVALHNO ID: [id number] Author: ANIYA ENGLAND MD Service: ? Author Type: Anesthesiologist Type: Anesthesia Postprocedure Evaluation Filed: 01/07/2025 09:16 Note Text: POST ANESTHESIA EVALUATION NOTE : 1990 Procedure Summary Date: 01/07/25 Room / Location: [address] Anesthesia Start: 714 Anesthesia Stop: 857 Procedure: CYSTOSCOPY, URETEROSCOPY WITH FLUOROSCOPY (Left: Ureter) Diagnosis: Ureteral stricture (Ureteral stricture [N13.5]) Surgeons: Nato Hawkins MD Responsible Provider: Aniya England MD Anesthesia Type: general ASA Status: 3 Anesthesia Type: general Airway Type: ETT Last Vitals Vitals Value Taken Time BP 100/56 01/07/25 08:54 Temp 36.3 ?C (97.3 ?F) 01/07/25 08:54 Pulse 94 01/07/25 08:54 Resp 16 01/07/25 08:54 SpO2 100 % 01/07/25 08:54 Post Anesthesia Patient Status Patient Evaluation: PACU. PACU/ICU Patient Condition: stable. Anticipated Disposition: phase 2 then home. Neurological Status: aware and responsive. Pulmonary Status: breathing comfortably on room air Airway Control: returned to baseline unsupported. Cardiovascular Status: stable. Pain Management: clinically adequate - multimodal analgesia pain management approach Postoperative Hydration: acceptable. Intraoperative Events: no significant anesthesia events Post Operative Nausea/Vomiting Status: no significant post operative nausea or vomiting Recommendation: further care per PACU/ICU/floor team. Anesthesia Observations No Documentation SIGNATURE: Aniya England MD PATIENT NAME: Karlene Alfaro DATE: January 07, 2025 TIME: 9:16 AM CSN: [id number]y Hospitals Parma [facility] Center PRE-OPon [id number] PRE-OPHNO ID: [id number] Author: ANIYA ENGLAND MD Service: ? Author Type: Anesthesiologist Type: Anesthesia Preprocedure Evaluation Filed: 01/07/2025 07:20 Note Text: ANESTHESIOLOGY DAY OF SURGERY NOTE : 1990 Procedure Information Anesthesia Start Date/Time: 01/07/25 0715 Procedures: XI ROBOTIC LAPAROSCOPIC REIMPLANT URETER BLADDER W/ PSOAS HITCH OR BLADDER FLAP (Left: Ureter) URETEROSCOPY FLEXIBLE (Left: Ureter) Location: MAIN OR07 / [facility] Surgeons: Nato Hawkins MD Estimated body mass index is 31.52 kg/m? as calculated from the following: Height as of 12/31/24: 177.8 cm (5' 10 ). Weight as of 12/31/24: 99.6 kg (219 lb 11 oz). Most recent hematocrit and potassium results: Hematocrit 39.7 12/31/2024 Potassium 4.3 12/31/2024 Relevant Problems ANESTHESIA (+) PONV (postoperative nausea and vomiting) ENDO (+) Hypothyroidism I - PHYSICAL EVALUATION AIRWAY Patient intubated: No. Tracheostomy tube not present Mallampati: II. TM distance: >3 FB. Neck ROM: full ROM without neurological symptoms. Mouth openin FB. Short neck: no. Thick neck: no Microretrognathia/Micronagthia/Recessed Chin: No DENTAL Dental findings: teeth intact. II - ANESTHESIA PLAN ASA Score: 3 Anesthetic Plan: general Airway type: ETT The patient is not a current smoker. NPO Status: adequate Monitoring Plan Monitoring plan: standard ASA. Post Procedure Analgesic Plan Postoperative analgesic plan: multimodal analgesia and parenteral or oral opioids. Informed Consent Anesthetic risks, benefits, alternatives, personnel and consent discussed: yes. Patient / Responsible Republican agrees to proceed: yes Patient / Surrogate agrees to blood products: Yes Significant changes in the patient condition since the History and Physical, not otherwise documented in primary service progress note: no. Potential Anesthesia issues that may suggest increased risk of complications or contraindication to planned procedure: none. Vitals Value Taken Time BP 140/77 01/07/25 05:28 Pulse 81 01/07/25 05:28 Resp 18 01/07/25 05:28 Temp 36.4 ?C (97.5 ?F) 01/07/25 05:28 SpO2 98 % 01/07/25 05:28 Facility-Administered Medications as of 01/07/2025 Medication Dose Route Frequency dextrose 10% iv bolus 12.5 g INTRAVENOUS PRN Or glucagon 0.5-1 mg injection 0.5-1 mg INTRAMUSCULAR PRN lidocaine (PF) 10 mg/mL (1 %) 1-2 mg injection (XYLOCAINE) 0.1-0.2 mL INTRADERMAL PRN Or lidocaine 1% 0.25 mL subcutaneous j-tip syringe (XYLOCAINE) 0.25 mL SUBCUTANEOUS PRN lactated ringers iv infusion 5-30 mL/hr INTRAVENOUS CONTINUOUS NaCl 0.9% iv flush bag 20 mL INTRAVENOUS PRN piperacillin-tazobactam iv piggyback 3.375 g in dextrose (iso-osmotic) 50 mL (ZOSYN) 3.375 g INTRAVENOUS Pre-Op Once [COMPLETED] heparin 5,000 Units injection 5,000 Units SUBCUTANEOUS Pre-Op Once [COMPLETED] acetaminophen 1,000 mg tab(s) (TYLENOL) 1,000 mg ORAL ONCE scopolamine (delivers 1 mg over 3 days) 1 patch (TRANSDERM-SCOP) 1 patch TRANSDERMAL q 72 HR And [START ON 01/10/2025] scopolamine - REMOVE PATCH OTHER q 72 HR And scopolamine - VERIFY patch OTHER q 8 H Outpatient Medications as of 01/07/2025 Medication Sig progesterone micronized (PROMETRIUM) 100 mg capsule Take 100 mg by mouth once daily. ibuprofen (MOTRIN) 800 mg tablet TAKE 1 TABLET BY MOUTH EVERY 8 HOURS NEEDED FOR MILD PAIN I have interviewed and examined the patient. I have reviewed the medical record and/or the pre-anesthesia evaluation, pertinent labs, and test results. This contains updated information obtained within 48 hours of Surgery/Procedure. SIGNATURE: Aniya England MD PATIENT NAME: Karlene Alfaro DATE: January 07, 2025 TIME: 7:20 AM CSN: [id number] Ridge Medical CenterOPERATIVE NOon [id number] NOHNO ID: [id number] Author: NATO HAWKINS MD Service: Urology Author Type: Physician Type: Operative Report Filed: 01/07/2025 10:15 Note Text: OPERATIVE/PROCEDURE REPORT LOG ID: [id number] SURGERY/PROCEDURE DATE: 01/07/2025 INCISION/PROCEDURE START TIME: 8:15 AM INCISION CLOSE/PROCEDURE END TIME: 8:24 AM SURGEON(S)/PROCEDURALIST(S) AND PROGRAM MANAGER ENVIRONMENTAL PLANNING(S): Surgeons and Role: * Nato Hawkins MD - Primary * Sanjay Coronel MD - Fellow No Additional Staff SURGERY/PROCEDURE(S): Cystoscopy Left retrograde pyelogram Left diagnostic ureteroscopy Physician interpretation of fluroscopic images (< 5 minutes) ANESTHESIA: General SURGERY/PROCEDURE DETAILS: Indication: 34F with history of left ureteral stricture at the time of the oophorectomy in July 2024, and underwent left ureteral stent placement. Operative report from the time reports a dense distal ureteral stricture - a stent was placed with difficulty and the oopherectomy was aborted. She then had a x-ray IVP which showed some possible narrowing in the left distal ureter without any hydronephrosis or ureteral dilation roughly a month after her stent was removed, and her stent was then placed. She then had her stent removed on December 13 in anticipation for possible ureteral reimplant. However her CT urogram on 12/31 showed a patent left ureter without any stricture or upstream hydronephrosis. However she does endorse having some flank pain following stent removal. Therefore we discussed that we would perform a diagnostic retrograde pyelogram and ureteroscopy in OR today to evaluate the exact site of stricture, if any, can proceed with possible reconstruction if there is a definitive stricture. The risk-benefit and alternatives were explained to the patient, who consented to the procedure. Details of the procedure: Patient was brought to [facility] OR where a timeout was performed confirming the patient's name, date of , MRN, and name of the procedure. After appropriate level of anesthesia was induced, she was placed in a dorsolithotomy position. Appropriate antibiotic prophylaxis was given. Her external genitalia was prepped and draped in the standard sterile fashion. We began the procedure by inserting a 22 [place] rigid cystoscope, the bladder was reviewed and without any abnormality. The left UO was identified in the orthotopic position, and cannulated with a 5 [place] open-ended catheter. Retrograde pyelogram was performed using full strength contrast, and identified no obvious narrowing and no hydronephrosis upstream. We then passed a 0.038 Glidewire in the ureter up to the kidney. The scope was then removed. Next we used a semirigid ureteroscope going next to the wire up the ureter. The ureter was carefully examined. At the expected level where it crosses over the iliac vessels, we saw a short 1cm segment with mild pallor of the mucosa, however there was no sign of stricture. The ureter was widely patent and accepted easily the ureteroscope and the wire. The scope was then driven into the proximal ureter and the rest of the ureter appeared healthy and pink. Pullback ureteroscopy was then performed we again carefully examined the area with the same finding. Distal to this segment, the mucosa again appears healthy and pink. At this time we decided that given there was no evidence of ureteral stricture recurrence, we would not undergo a formal reconstruction procedure. The scope was then removed. Bladder was drained. Patient was then awakened from anesthesia and transferred to the PACU for postoperative convalescence. There was no immediate complication. PRE-OP/PRE-PROCEDURE DIAGNOSIS: Concern for left ureteral stricture POST-OP/POST-PROCEDURE DIAGNOSIS: No clear evidence of recurrence of ureteral stricture ESTIMATED BLOOD LOSS: 1 mls SPECIMENS: None IMPLANTABLE DEVICES: NONE DRAINS: None COMPLICATIONS: None CLOSURE TECHNIQUE: n/a PARTICIPATION IN SURGERY/PROCEDURE: Dr. Hawkins primary surgeon/proceduralist performed the procedure with assistance from fellow Dr. Coronel. SIGNATURE: Sanjay Coronel MD PATIENT NAME: Karlene Alfaro DATE: January 07, 2025 TIME: 8:29 AM UROLOGY ATTENDING ATTESTATION: I personally performed all critical elements of the surgical case with the assistance of the resident or fellow who completed portions of the case under my direct guidance and supervision while I was scrubbed into the case. Nato Hawkins MD Associate Staff, Department of Urology [facility] InstituteNoalCKindred Hospital Dayton panel Auto (Bld)on 20-74-3476Bgkrulipzqh distribution width (RBC) [Ratio]13.8 % Fivcwn81.5-15.0[facility] HospitalComment on above:Order Comment: Specimen Type: BLOOD SPECIMENOrdering Facility: [facility] Address:[address] [place] [address] [place], [place] [address]Performed By: #### [id number] ####[facility] LABCLIA [id number] [place] [address] [place] STATES OF AMERICAHematocrit (Bld) [Volume fraction]39.7 %Eqgzwx36.0-46.0 [facility] HospitalComascension borgess allegan hospital on above:Order Comment: Specimen Type: BLOOD SPECIMENOrdering Facility: [facility] Address:[address] [place], [place] [address]Performed By: #### [id number] ####[facility] LABIA [id number] [place] [address] [place] Hemoglobin (Bld) [Mass/Vol]12.5 g/qQZuxlyb32.5-15.5CSt. Francis Hospital Comment on above:Order Comment: Specimen Type: BLOOD SPECIMENOrdering Facility: [facility] Address:[address] [place] [address] Performed By: #### [id number] ####[facility] LABIA [id number] [address] OF DOCTORS HOSPITALMCH (RBC) [Entitic mass] 26.9 djRwimlj99.0-34.0[facility] HospitalComascension borg[facility] hospital on above:Order Comment: Specimen Type: BLOOD SPECIMENOrdering Facility: [facility] Address:[address] [place], [place] [address]Performed By: #### [id number] ####[facility] LABIA [id number] [place] [address] [place] AMERICAMCHC (RBC) [Mass/Vol]31.5 g/aSSgdoqi05.5-36.0[facility] HospitalComment on above:Order Comment: Specimen Type: BLOOD SPECIMENOrdering Facility: [facility] Address:[address] [place], [place] [address]Performed By: #### [id number] ####[facility] LABIA [id number] [address] OF DOCTORS HOSPITALMCV (RBC) [Entitic vol]85.6 gPJmixrt51.0-100.0[facility] on above: Order Comment: Specimen Type: BLOOD SPECIMENOrdering Facility: [facility] Address:[address] [place] [address]Performed By: #### 73336- 2 ####[facility] LABCLIA [id number] [place] [address] [place] AMERICANucleated RBC (Bld) [#/Vol]10*3/uLNormal<0.01 [facility] on above:Order Comment: Specimen Type: BLOOD SPECIMENOrdering Facility: [facility] Address:[address] [place], [place] [address]Performed By: #### 14860-5 ####[facility] LABCLIA [id number] [place] [address] [place] AMERICAPlatelet mean volume (Bld) [Entitic vol]9.3 fLNormal9.0-12.7CSt. [facility] Comment on above:Order Comment: Specimen Type: BLOOD SPECIMENOrdering Facility: [facility] Address:[address] [place] [address] Performed By: #### 86957-0 ####[facility] LABCLIA [id number] [place] [address] [place] AMERICAPlatelets (Bld) [#/Vol] 376 10*3/dPXgthef588-122PbmrbaferMagruder Memorial Hospital on above:Order Comment: Specimen Type: BLOOD SPECIMENOrdering Facility: [facility] Address:[address] [place], [place] [address]Performed By: #### 21658- 2 ####[facility] LABCLIA [id number] [place] [address] [place] AMERICARBC (Bld) [#/Vol]4.64 10*6/uLNormal3.90-5.20 [facility] on above:Order Comment: Specimen Type: BLOOD SPECIMENOrdering Facility: [facility] Address:[address] [place], [place] [address]Performed By: #### 02390-6 ####[facility] LABCLIA [id number] [address] STATES OF AMERICAWBC (Bld) [#/Vol]7.13 10*3/uLNormal3.70-11.00[facility] on above: Order Comment: Specimen Type: BLOOD SPECIMENOrdering Facility: [facility] Address:[address] [place], [place] [address]Performed By: #### 97756- 2 ####[facility] LABCLIA [id number] [address]ARD STREETCONFIRM BLOOD TYPEon 35-13-0679JEGGMvxmgbXdacbkfhbWVUMedicine Barnesville Hospital on above:Order Comment: Specimen Type: BLOOD SPECIMENOrdering Facility: [facility] Address:[address] [place], [place] [address]Performed By: #### CONABO ####[facility] LABCLIA [id number] [address] STATES [facility] CENTERRh Nom (Bld)PositiveNormDiley Ridge Medical Center on above:Order Comment: Specimen Type: BLOOD SPECIMENOrdering Facility: [facility] Address:[address] [place], [place] [address]Performed By: #### CONABO ####[facility] LABCLIA [id number] [place] [address] [place] OF AMERICACT UROGRAM WO/W IVCONon 86-21-0813UY UROGRAM WO/W IVCON* * *Final Report* * * DATE OF EXAM: Dec 31 2024 11:27AM [facility] 0560 - CT UROGRAM WO/W IVCON / PROCEDURE REASON: Hydronephrosis with ureteral stricture, not elsewhere classified * * * * Physician Interpretation * * * * RESULT: EXAMINATION: CT ABDOMEN AND PELVIS WITHOUT AND WITH IV CONTRAST, INCLUDING EXCRETORY PHASE IMAGING (CT UROGRAM) 3D RECONSTRUCTIONS CLINICAL HISTORY: Hydronephrosis with ureteral stricture. TECHNIQUE: CT urogram protocol including unenhanced, renal parenchymal phase and excretory phase renal imaging was obtained following IV contrast. Normal saline was also administered IV. No oral contrast was given. 3D image post-processing was performed and archived at the request of the referring physician, on the CT scanner workstation without concurrent physician supervision. MQ: CTU_2 Contrast: IV: 100 ml of Omnipaque 350 IV Saline: 100 ml of Omnipaque 350 Oral Contrast: None CT Radiation dose: Integrated dose-length product (DLP) for this visit = 1759 mGy*cm. CT Dose Reduction Employed: Automated exposure control (AEC) COMPARISON: None. RESULT: Kidneys and urinary tract: Right: 2 mm nonobstructing stone in the midpole of the right kidney. No ureteral calculi. No hydronephrosis or hydroureter. No upper tract urothelial filling defects or strictures detected. Left: 2 mm nonobstructing stone in the midpole of the left kidney. No ureteral calculi. No hydronephrosis or hydroureter. No upper tract urothelial filling defects or strictures detected. Bladder: No filling defect, calculus, focal or diffuse wall thickening. Abdomen and Pelvis: Liver: No mass. Biliary: No bile duct dilation. Cholecystectomy. Spleen: No mass. No splenomegaly. Pancreas: No mass or duct dilation. Adrenals: No mass. GI tract: No dilation or wall thickening. Lymph nodes: No abdominal or pelvic lymphadenopathy. Mesentery/Peritoneum: No ascites or mass. Pelvis: Hysterectomy. Bones and Soft Tissues: No significant finding. Lower thorax: Unremarkable. Localizer images: No additional findings. IMPRESSION: 1. Small nonobstructing renal calculi measuring 2 mm in size in the midpole of the right kidney in the midpole of the left kidney. No ureteral calculi. No hydronephrosis or hydroureter No upper tract urothelial filling defects or strictures detected. Transcribe Date/Time: Dec 31 2024 1:29P Dictated by: RERE GUARDADO MD This examination was interpreted and the report reviewed and electronically signed by: RERE GUARDADO MD on Dec 31 2024 1:49PM EST Thank you for allowing us to participate in the care of your patient. Should there be any questions regarding this interpretation, please call [phone]. If you are unable to reach us at the number above, please feel free to contact [facility] at [phone]. [id number] Stokes Cleveland VA Medical Centerprehensive metabolic 2000 panelon 25-39-9319Eyjygle [Mass/Vol]4.0 g/dLNormal3.9-4.9CWVUMedicine Barnesville Hospital on above:Order Comment: Specimen Type: BLOOD SPECIMENOrdering Facility: [facility] Address:[address] [place], [place] [address]Performed By: #### 55520-8 ####[facility] LABCLIA [id number] [place] [address] [place] AMERICAALP [Catalytic activity/Vol]72 U/NArzlzg22-534LqcwgtepzMagruder Memorial Hospital on above:Order Comment: Specimen Type: BLOOD SPECIMENOrdering Facility: [facility] Address:[address] [place], [place] [address]Performed By: #### 39798- 8 ####[facility] LABCLIA [id number] [place] [address] [place] AMERICAALT [Catalytic activity/Vol]11 U/LNormal7-38 [facility] on above:Order Comment: Specimen Type: BLOOD SPECIMENOrdering Facility: [facility] Address:[address] [place], [place] [address]Performed By: #### 22460-7 ####[facility] LABCLIA [id number] [place] [id number] [place] AMERICAAnion gap [Moles/Vol]13 mmol/LNormal8-15[facility] on above:Order Comment: Specimen Type: BLOOD SPECIMENOrdering Facility: [facility] Address:[address] [place], [place] [address]Performed By: #### 86612- 8 ####[facility] LABCLIA [id number] [place] [address] [place] AMERICAAST [Catalytic activity/Vol]19 U/CNutzgw23-95 [facility] on above:Order Comment: Specimen Type: BLOOD SPECIMENOrdering Facility: [facility] Address:[address] [place], [place] [address]Performed By: #### 80194-0 ####[facility] LABCLIA [id number] [place] [address] [place] AMERICABilirubin [Mass/Vol]0.5 mg/dLNormal0.2-1.3CWVUMedicine Barnesville Hospital on above:Order Comment: Specimen Type: BLOOD SPECIMENOrdering Facility: [facility] Address:[address] [place], [place] [address]Performed By: #### 42297- 8 ####[facility] LABCLIA [id number] [place] [address] [place] AMERICACalcium [Mass/Vol]8.9 mg/dLNormal8.5-10.2CWVUMedicine Barnesville Hospital on above:Order Comment: Specimen Type: BLOOD SPECIMENOrdering Facility: [facility] Address:[address] [place], [place] [address]Performed By: #### 49822-0 ####[facility] LABCLIA [id number] [place] [address] [place] AMERICAChloride [Moles/Vol]105 mmol/PVdwhag33-381GesjwuxgzMagruder Memorial Hospital on above: Order Comment: Specimen Type: BLOOD SPECIMENOrdering Facility: [facility] Address:[address] [place], [place] [address]Performed By: #### 16059- 8 ####[facility] LABCLIA [id number] [place] [address] [place] AMERICACO2 [Moles/Vol]22 mmol/AMztrgb33-99GpwfemeqfMagruder Memorial Hospital on above:Order Comment: Specimen Type: BLOOD SPECIMENOrdering Facility: [facility] Address:[address] [place], [place] [address]Performed By: #### 38106-7 ####[facility] LABCLIA [id number] [place] [id number] [place] Creatinine [Mass/Vol]0.73 mg/dLNormal0.58-0.96[facility] on above:Order Comment: Specimen Type: BLOOD SPECIMENOrdering Facility: [facility] Address:[address] [place] [address] Performed By: #### 79123-2 ####[facility] LABIA [id number] [place] [address] [place] AMERICAeGFRcr SerPlBld CKD-EPI [id number] mL/min/1.73m???Normal>=60[facility] on above: Order Comment: Specimen Type: BLOOD SPECIMENOrdering Facility: [facility] Address:[address] [place], [place] [address]Result Comment: Estimated Glomerular Filtration Rate (eGFR) is calculated using the 2020 CKD-EPI cre atinine equation. This equation utilizes serum creatinine, sex, and age as parameters. The creatinine assay has traceable calibration to isotope dilution- mass spectrometry. Refer to KDIGO guidelines for clinical interpretation. In patients with unstable renal function, e.g. those with acute kidney injury, the eGFR may not accurately reflect actual GFR.Performed By: #### 54412-5 ####[facility] LABCLIA [id number] [place] [address] [place] AMERICAGlucose [Mass/Vol]88 mg/gBEbmqja98-37DctwrhghkMagruder Memorial Hospital on above:Order Comment: Specimen Type: BLOOD SPECIMENOrdering Facility: [facility] Address:[address] [place], [place] [address]Result Comment: The [place] Diabetes Association (ADA) provides guidance for cutoff values for fasting glucose and random glucose. The ADA defines fasting as no caloric intake for at least 8 hours. Fasting plasma glucose results between 100 to 125 mg/dL indicate increased risk for diabetes (prediab etes). Fasting plasma glucose results greater than or equal to 126 mg/dL meet the criteria for diagnosis of diabetes. In the absence of unequivocal hyperglycemia, results should be confirmed by repeat testing. In a patient with classic symptoms of hyperglycemia or hyperglycemic crisis, random plasma glucose results greater than or equal to 200 mg/dL meet the criteria for diagnosis of diabetes. Reference: Standards of Medical Care in Diabetes 2016, [place] Diabetes Association. Diabetes Care. 2016.39(Suppl 1).Performed By: #### 88689-2 ####[facility] LABCLIA [id number] [place] [address] [place] AMERICAPotassium [Moles/Vol]4.3 mmol/LNormal3.7-5.1CWVUMedicine [facility] on above:Order Comment: Specimen Type: BLOOD SPECIMENOrdering Facility: [facility] Address:[address] [place], [place] [address]Performed By: #### 18908-0 ####[facility] LABCLIA [id number] [place] [address] [place] AMERICAProtein [Mass/Vol]6.8 g/dLNormal6.3-8.0[facility] on above:Order Comment: Specimen Type: BLOOD SPECIMENOrdering Facility: [facility] Address:[address] [place], [place] [address]Performed By: #### 33030- 8 ####[facility] LABCLIA [id number] [place] [address] [place] AMERICASodium [Moles/Vol]140 mmol/TJjizjv712-050AuezzeqfsMagruder [facility] Hospital on above:Order Comment: Specimen Type: BLOOD SPECIMENOrdering Facility: [facility] Address:[address] [place], [place] [address]Performed By: #### 91889-2 ####[facility] LABIA [id number] [place] [address] [place] AMERICAUrea nitrogen [Mass/Vol]9 mg/dLNormal7-21[facility] on above: Order Comment: Specimen Type: BLOOD SPECIMENOrdering Facility: [facility] Address:[address] [place], [place] [address]Performed By: #### 19861- 8 ####[facility] LABIA [id number] [place] [address] [place] AMERICAHISTORY PHYSICALon 98-17-2732GTOTPCV PHYSICALHNO ID: [id number] Author: MICAELA NGUYỄN APRN.FLOOR COVERER Service: ? Author Type: Nurse Practitioner Type: H&P Filed: 01/01/2025 08:00 Note Text: [facility] HISTORY AND PHYSICAL EXAMINATION SERVICE DATE: 12/31/2024 SERVICE TIME: 9:53 AM PRIMARY CARE PHYSICIAN: Saniya Mays NP REASON FOR VISIT: Karlene Alfaro is a 34 year old female who is scheduled for Left - XI ROBOTIC LAPAROSCOPIC REIMPLANT URETER BLADDER W/ PSOAS HITCH OR BLADDER FLAP at the request of Dr. Nato Hawkins for consultation. My final recommendation will be communicated back to the requesting physician by way of shared medical record or letter. Assessment Patient has the following medical conditions which may affect pankaj-operative course: Hypothyroidism Assessment: stable on Levothyroxine(Synthroid) PONV (postoperative nausea and vomiting) Assessment: states gets PONV with anesthesia states gets Scopolamine Obesity without serious comorbidity Assessment: Body mass index is 31.52 kg/m?. On Metformin I - PHYSICAL EVALUATION AIRWAY Patient intubated: No. Tracheostomy tube not present Mallampati: III. TM distance: >3 FB. Neck ROM: full ROM without neurological symptoms. Mouth openin FB. Short neck: no. Thick neck: no Gill present: no Lip Bite Test: II Microretrognathia/Micronagthia/Recessed Chin: Yes DENTAL Dental findings: teeth intact. II - ANESTHESIA PLAN Anesthetic plan additional comments: *PACC/TCI - anesthesia choice. Informed Consent ANESTHESIA FINDINGS: Intubation History: No history of difficult intubation. No abnormal airway history Significant Anesthesia Considerations: potential postop nausea/vomiting Airway History: No history of difficult airway No abnormal airway history Reyes Activity Status Index: METS: Walk indoors, such as around the house (1.75 METs) Do light work around the house, such as dusting or washing dishes (2.70 METs) Take care of self; that is eating, dressing, bathing, using the toilet (2.75 METs) Walk a block or two on level ground (2.75 METs) Do moderate work around the house, such as vacuuming, sweeping floors, or carrying in groceries (3.50 METs) Do yardwork, such as raking leaves, weeding, or pushing a power mower (4.50 METs) Climb a flight of stairs or walk up a hill (5.50 METs) DASI Score: 23.45 Patient denies any chest pain or undue shortness of breath with the above physical activity. Clinical Frailty Scale: 3. Well, with treated comorbid disease STOP-Bang Score: Denies snoring loudly Denies feeling tired, fatigued, or sleepy during the daytime Has not been observed to stop breathing or choking/gasping during sleep Denies having high blood pressure BMI less than or equal to 35 kg/m2 Patient 50 years old or younger Does not have a large neck Non-male patient STOP-Bang Score: 0 [id number]-MNGa Score: Age: <65 Sex: female CHF history: No Hypertension history: No Stroke/TIA/thromboembolism history: No Vascular disease history: No Diabetes history: No [id number] Score: 1 ARISCAT Score: Age: <=50 Preoperative SpO2: >=96% Respiratory infection in the last month: No Preoperative anemia: Yes Surgical incision: upper abdominal Duration of surgery: >3 hrs Emergency procedure: No ARISCAT Score: 49 Prepared for surgery: This patient is optimally prepared for surgery CONSULTS: Patient does not require consults for optimization at this time. The Following Tests/Procedures Have Been Initiated: Orders Placed This Encounter Confirm Blood Type Standing Status: Future Number of Occurrences: 1 Expected Date: 12/31/2024 Expiration Date: 04/01/2025 Did Blood Bank direct you to place this order:: No - Emergency levothyroxine (SYNTHROID) 175 mcg tablet Sig: Take 175 mcg by mouth daily before breakfast. ciprofloxacin HCl (CIPRO) 500 mg tablet Sig: Take 500 mg by mouth two times a day. estradiol (CLIMARA) 0.025 mg/24 hr patch Sig: Apply 1 patch as directed one time a week. metFORMIN ER (GLUCOPHAGE XR) 500 mg 24 hr tablet Sig: Take 500 mg by mouth daily with dinner. progesterone micronized (PROMETRIUM) 100 mg capsule Sig: Take 100 mg by mouth once daily. , Orders per Surgeon Planned Anesthetic: Per anesthesia choice Subjective CHIEF COMPLAINT: Urethral stricture HPI: 34 year old female who presents for evaluation for left ureteral stricture. In July 2024 plan was for left oopherectomy but this was aborted because of finding of left ureteral stricture stent was placed with multiple stent placements. Patient states pain today REVIEW OF SYSTEMS: PAIN ASSESSMENT: Pain Pain Level: 1 Pain Location: Back-Lower Description: Aching Duration Amount of Time: 5 Duration Units: Months Frequency: Intermittent Intervention/Comfort measure: Medication General: No weight loss, malaise or fevers. Neuro: (more content not included)...NormalOhiohealth Marion General HospitalTYPE + SCREENon 76-09-9209UNDPUjqfawCjofjfjjbWVUMedicine Barnesville Hospital on above:Order Comment: Specimen Type: BLOOD SPECIMENOrdering Facility: [facility] Address:[address] [place], [place] [address]Performed By: #### TSCR ####[facility] LABCLIA [id number] [place] [id number] [facility]OSPITALRh Nom (Bld)PositiveNormDiley Ridge Medical Center on above:Order Comment: Specimen Type: BLOOD SPECIMENOrdering Facility: [facility] Address:[address] [place], [place] [address]Performed By: #### TSCR ####[facility] LABCLIA [id number] [place] [id number] [facility]OSPITALTYPE AND SCREEN ZONYKRTBAZ21/23/2025 23:59NormalCWVUMedicine [facility]ville Hospital on above:Order Comment: Specimen Type: BLOOD SPECIMENOrdering Facility: [facility] Address:[address] [place], [place] [address]Performed By: #### TSCR ####[facility] LABCLIA [id number] [place] [id number] [facility] HOSPITALCNPNon [id number] (JOHANNY) KARLENE ALFARO ([id number]) 1990 F Date Time Provider Department 12/28/24 GAIL BORRERO During your visit today, we recorded the following information about you: Gail Borrero RN 12/28/2024 2:50 PM Signed Called pt about urine culture, she stated she got it done 12/26 at [facility], and in her pt portal it is still pending. Will f/u. 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 - levothyroxine (SYNTHROID) 137 mcg tablet Take 1 tablet by mouth once daily. - mirabegron (MYRBETRIQ) 50 mg Tb24 Take 1 tablet by mouth once daily. - ibuprofen (MOTRIN) 800 mg tablet TAKE 1 TABLET BY MOUTH EVERY 8 HOURS NEEDED FOR MILD PAIN Problem List As Of Date: 12/28/2024 (None) Encounter Status:Closed by GAIL BORRERO on 12/28/24NoMagruder Memorial Hospitaltory - Chemistry and Chemistry - challengeOrdered By: Brent Roland on [id number] T4 [Mass/Vol]0.94 ng/dL0.76-1.46St. [facility]S Medical CenterTSH Qn6.381 m[IU]/LHigh0.358-3.740St. [facility]S Medical CenterNo Panel InformationOrdered By: Brent Roland on [id number] Triiodothyronine2.64 pg/mL2.18-3.98St. [facility]S Medical CenterUrine Cultureon 12-26-2024 Bacteria identified Cx Nom (U)<9,000 colonies/ml mixed bacterial skin contaminants 2 Days PERFORMED BY: [place] [address] [place] [address] PATHOLOGIST SENIOR FINANCIAL ACCOUNTANT ZITA BATISTA M.D.NormalThe Unc Health Lenoir Physician GroupComment on above: Performed By: #### CUU #### [facility] [address] [place] [id number] [facility] HOSPITALPuneet [id number] (UROMILTONN) KARLENE ALFARO ([id number]) 1990 F Date Time Provider Department 12/25/24 GAIL BORRERO During your visit today, we recorded the following information about you: Gail Borrero RN 12/25/2024 10:00 AM Signed Faxed urine culture order to [facility] lab for pt to get it done today. 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 Prescriptions as of 12/25/2024 - cephALEXin (KEFLEX) 500 mg capsule Take 1 capsule by mouth every 12 hours. - levothyroxine (SYNTHROID) 137 mcg tablet Take 1 tablet by mouth once daily. - mirabegron (MYRBETRIQ) 50 mg Tb24 Take 1 tablet by mouth once daily. - ibuprofen (MOTRIN) 800 mg tablet TAKE 1 TABLET BY MOUTH EVERY 8 HOURS NEEDED FOR MILD PAIN Problem List As Of Date: 12/25/2024 (None) Encounter Status:Closed by GAIL BORRERO on 12/25/24NoDiley Ridge Medical CenterARYATelephone (UROMILTONN) KARLENE ALFARO ([id number]) 1990 F Date Time Provider Department 12/25/24 GAIL BORRERO During your visit today, we recorded the following information about you: Gail Borrero RN 12/25/2024 9:56 AM Signed Called pt regarding getting UC done locally, pt stated she could get it done at [facility] today. Told her I would fax it over to them. 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 - levothyroxine (SYNTHROID) 137 mcg tablet Take 1 tablet by mouth once daily. - mirabegron (MYRBETRIQ) 50 mg Tb24 Take 1 tablet by mouth once daily. - ibuprofen (MOTRIN) 800 mg tablet TAKE 1 TABLET BY MOUTH EVERY 8 HOURS NEEDED FOR MILD PAIN Problem List As Of Date: 12/25/2024 (None) Encounter Status:Closed by GAIL BORRERO on 12/25/24[facility] HospitalElizabeth [id number] (JOHANNY) KARLENE ALFARO ([id number]) 1990 F Date Time Provider Department 12/18/24 GAIL BORRERO During your visit today, we recorded the following information about you: Gail Borrero RN 12/18/2024 4:17 PM Signed Faxed FMLA paper work via scan to provided fax number and right fax, both times failed with right fax. And fax failed directly from printer. Will follow up with pt to see if this is a correct number. 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 Allergies As of Date: 12/05/2024 Noted Allergy Reaction CLINDAMYCIN 11/20/2024 4 - Hives Comments: Rash DTAP-IPV COMPONENT 1 OF 2 (PF) 11/20/2024 5 - Intolerance Comments: Hives; Rash; Welt Date Reviewed: 11/20/2024 Reviewed by: Mendy Bartholomew MA - Fully Assessed Reason for Visit: [facility] Paperwork [4185] Prescriptions as of 12/05/2024 - cephALEXin (KEFLEX) [...] (None) Encounter Status:Closed by EDGAR CARIAS on 12/05/24[facility] [id number] Visit (FVUROL) KARLENE ALFARO ([id number]) 1990 F Date Time Provider Department 11/20/24 10:00 AM NATO HAWKINS During your visit today, we recorded the following information about you: Blood pressure Last Period 133/93 06/12/18 Nato Hawkins MD 11/20/2024 12:24 PM Signed [facility] UROLOGY NEW PATIENT CLINIC NOTE SERVICE DATE: 11/20/2024 NAME: Karlene Barney REFERRED BY: No referring provider defined for [...] Nato Hawkins MD Staff Urologist Genitourinary Reconstruction [facility] [place] Department of U[facility] I spent a total of 30 minutes on the date of the service which included preparing to see the patient, iber-hj-fsep patient care, completing clinical documentation, obtaining and/or [...] Of Date: 11/20/2024 (None) (more content not included)...[facility] Basophils Auto (Bld) [#/Vol]Ordered By: Kamaljit Ayala on 55-91-2534Ttucshnjh (Bld) [#/Vol]0.0 10 3/uL0.0-0.1FMercy Health – The Jewish HospitalBasophils/100 WBC Auto (Bld)Ordered By: Kamaljit Ayala on 33-43-8829Kijmrisfk/100 WBC (Bld)0.6 %0.2-2.0[facility] CenterEosinophils/100 WBC Auto (Bld)Ordered By: Kamaljit Ayala on 97-85-0799Ywybzaxazod/100 WBC (Bld)2.1 %0.9-7.0[facility] Medical CenterErythrocyte distribution width Auto (RBC) [Ratio]Ordered By: Kamaljit Ayala on 43-16-4899Anrewgernhc distribution width (RBC) [Ratio]13.7 %11.0-15.0[facility] Medical CenterGlomerular filtration rate (GFR) estimation in non- AmericanOrdered By: Kamaljit Ayala on 11-08-2024 GFR/1.73 sq M.predicted among non-blacks MDRD (S/P/Bld) [Vol rate/Area] mL/min/{1.73_m2}>=60 mL/min/1.73m 2FMercy Health – The Jewish HospitalHematocrit Auto (Bld) [Volume fraction]Ordered By: Kamaljit Ayala on 06-36-4402Ncfbwecvue (Bld) [Volume fraction]38.5 %36.0-48.0[facility] Hemoglobin [Mass/volume] in BloodOrdered By: Kamaljit Ayala on 11-08-2024 Hemoglobin (Bld) [Mass/Vol]12.5 g/dL12.0-16.0[facility] Laboratory - Chemistry and Chemistry - challengeOrdered By: Kamaljit Ayala on 84-01-5203Iyewmdo [Mass/Vol]8.4 mg/dLLow8.5-10.1FMercy Health – The Jewish HospitalChloride [Moles/Vol]105 mmol/I85-219DikgqywokSt. Mary'S Medical CenterCO2 [Moles/Vol]25.2 mmol/L21.0-32.0[facility] CenterCreatinine [Mass/Vol]0.82 mg/dL0.55-1.02[facility] Medical CenterGFR/1.73 sq M.predicted MDRD (S/P/Bld) [Vol rate/Area]mL/min/{1.73_m2}>=60 mL/min/1.73m [address] [facility] CenterGlucose [Mass/Vol]101 mg/mC60-346GxpzzgeatSt. Mary'S Medical CenterPotassium [Moles/Vol]3.9 mmol/L3.5-5.1FOhioHealth Grady Memorial Hospitalodium [Moles/Vol]140 mmol/L057-976KozcsyllbSt. Mary'S Medical CenterUrea nitrogen [Mass/Vol]13.0 mg/dL7.0-18.0[facility] Medical CenterUrea nitrogen/Creatinine [Mass ratio]15.9 mg/mgSt. Mary'S Medical CenterLaboratory - Hematology and Cell countsOrdered By: Kamaljit Ayala on 26-37-5820Hjuusscv granulocytes/100 WBC (Bld)0.1 %0.0-0.5FMercy Health – The Jewish HospitalLeukocytes [#/volume] corrected for nucleated erythrocytes in Blood by Automated counOrdered By: Kamaljit Ayala on 20-04-1114ERN corrected for nucl RBC Auto (Bld) [#/Vol]7.3 10 3/uL4.0-11.0[facility] Lymphocytes Auto (Bld) [#/Vol]Ordered By: Kamaljit Ayala on 11-08-2024 Lymphocytes (Bld) [#/Vol]2.6 10 3/uL1.2-3.8[facility] Lymphocytes/100 WBC Auto (Bld)Ordered By: Kamaljit Ayala on 11-08-2024 Lymphocytes/100 WBC (Bld)35.4 %20.5-60.0[facility] Medical CenterMCH Auto (RBC) [Entitic mass]Ordered By: Kamaljit Ayala on 79-71-5683UZX (RBC) [Entitic mass]26.6 pgLow26.7-34.0[facility] Medical CenterMCHC Auto (RBC) [Mass/Vol]Ordered By: Kamaljit Ayala on 86-53-1944YAAH (RBC) [Mass/Vol] 32.5 g/dL29.9-35.2FMercy Health – The Jewish HospitalMCV Auto (RBC) [Entitic vol] Ordered By: Kamaljit Ayala on 66-75-3254QJX (RBC) [Entitic vol]81.9 fL81.0-99.0 [facility] Medical CenterMonocytes Auto (Bld) [#/Vol]Ordered By: Kamaljit Ayala on 55-55-0196Inrooambf (Bld) [#/Vol]0.5 10 3/uL0.3-0.8[facility] Medical CenterMonocytes/100 WBC Auto (Bld)Ordered By: Kamaljit Ayala on 21-09-7193Kaouaxwbd/100 WBC (Bld)6.8 %1.7-12.0[facility] Neutrophils Auto (Bld) [#/Vol]Ordered By: Kamaljit Ayala on 11-08-2024 Neutrophils (Bld) [#/Vol]4.0 10 3/uL1.4-6.5FMercy Health – The Jewish Hospital Neutrophils/100 WBC Auto (Bld)Ordered By: Kamaljit Ayala on 11-08-2024 Neutrophils/100 WBC (Bld)55.0 %43.0-75.0[facility] CenterNo Panel InformationOrdered By: Kamaljit Ayala on 82-16-1377Xxikergnopm # (Auto)0.2 10 3/uL0.0-0.7FMercy Health – The Jewish HospitalImmature Granulocyte # (Auto) 0.01 10 3/uL0.00-0.03[facility] Medical CenterPlatelet mean volume Auto (Bld) [Entitic vol]Ordered By: Kamaljit Ayala on 93-02-6377Gjflvmes mean volume (Bld) [Entitic vol]8.9 fLLow9.5-13.5FMercy Health – The Jewish HospitalPlatelets Auto (Bld) [#/Vol]Ordered By: Kamaljit Ayala on 39-12-0020Jhsoeqito (Bld) [#/Vol]334 10 3/mG867-556TyghloqheSt. Mary'S Medical CenterRBC Auto (Bld) [#/Vol] Ordered By: Kamaljit Ayala on 68-68-5072WBA (Bld) [#/Vol]4.70 10 6/uL4.20-5.40 [facility] Medical Centererum or plasma anion gap determinationOrdered By: Kamaljit Ayala on 05-45-9114Grpmh gap [Moles/Vol]13.7 mmol/LFMercy Health – The Jewish HospitalCreatinineon 80-25-9147VMX/1.73 sq M.predicted MDRD (S/P/Bld) [Vol rate/Area]mL/min/{1.73_m2}NormalThe [facility] Comment on above:Order Comment: STAT FOR IVPResult Comment: PERFORMED BY: [place] [address] PATHOLOGIST SENIOR FINANCIAL ACCOUNTANT ZITA BATISTA M.D.Performed By: #### CREAT #### [facility] [address] [place] [address] USACreatinine [Mass/volume] in Serum or PlasmaOrdered By: Kamaljit Ayala on 38-34-2030Sisbwhdqek [Mass/Vol]0.77 mg/dLNormal0.60-1.20 [facility] Medical CenterComment on above:Order Comment: STAT FOR IVP Performed By: #### CREAT #### [facility] [address] [place], [place] [id number] USANo Panel InformationOrdered By: Kamaljit Ayala on 23-19-9011Jtfemjqyd GFR (CKD-EPI)> 60.0 mL/MinSt. Mary'S Medical Center Pharmacy Creatinine Clearance (ChemN/[facility] HospitalX-ray reportOrdered By: Crow Ramos on 30-99-9836Qzdpz reportWEXNER MEDICAL CENTER [place] [address] [place] [address] XRay Report Signed Patient: Karlene Alfaro MR#: [id number] : 1990 Acct:[id number] Age/Sex: 34 / F ADM Date: 5 Loc: XD Room: Type: [facility] Attending Dr: Kamaljit Ayala MD Copies to: Kamaljit Ayala MD~ Ordering Provider: Kamaljit Ayala MD Date of Service: 10/29/24 XR/XR IVP: LT FLANK PAIN, URETERAL STICTURE XR IVP 10/29/2024 8:56 AM SIGNS AND SYMPTOMS: ^LT FLANK PAIN, URETERAL STICTURE ^HOLDING RM FOR LABS 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 Radiographs of the abdomen andpelvis were obtained after intravenous contrast administration. Contrast: [...] in the left ureter overlyingthe left sacral alaconsistent with a history of previous ureteral stricture. No evidence of mass or filling defect. Post void images show near complete bladder emptying. XR/XR IVP IMPRESSION: No obstructing stone or mass. No hydronephrosis. The ureters fill with contrast with focal narrowing in the left ureter overlyingthe left sacral alaconsistent with a history of previous ureteral stricture. Impression dictated by: Crow Ramos M.D. 10/29/2024 10:15 AM Dictation Location: [place] [address] Transcribed By: [facility] 10/29/24 1015 Dictated By: Crow Ramos II, MD 10/29/24 1011 Signed By: 10/29/24 [facility]5 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 10/29/2024 10:15 AM Dictation Location: [place] [address] Transcribed By: [facility] 10/29/24 1015 Dictated By: Crow Ramos II, MD 10/29/24 1011 Signed By: 10/29/24 1015[facility] Physician GroupIGP,APTIMA HPV,AGE GDLNon 72-75-9987GJG GDLN ACOG TESTINGNote.NOMS HealthcareComment on above:TESTS RESULT FLAG UNITS REF RANGE LAB Clinician Provided Cytology Information Source.............Vagina No. of containers..01 ThinPrep Vial Age Algo ACOG Olga... 30 FLAG LEGEND: L-Low Normal,H-High Normal,LL-Alert Low,HH-Alert High <-Panic Low,>-Panic High,A-Abnormal,AA-Critical Abnormal Performed at: 01 =[address] [address] Ernestina Carballo MD, HPV APTIMANegativeNegativeNOMS HealthcareComment on above:This nucleic acid amplification test detects fourteen high- risk HPV types (16,18,31,33,35,39,45,51,52,56,58,59,66,68) without differentiation. Performed at: =[address] [id number] Story Analyst: Ernestina Carballo MD, Phone: [phone] Performed at: [address] [id number] Story Analyst: Ernestina Carballo MD, Phone: [phone] IGP, APTIMA HPV, RFX 16/18,45Note.NOMS HealthcareComment on above:TESTS RESULT FLAG UNITS REF RANGE LAB DIAGNOSIS: 02 NEGATIVE FOR INTRAEPITHELIAL LESION OR MALIGNANCY. Specimen adequacy: 02 Satisfactory for evaluation. No endocervical component is identified. Performed by: 02 Delphine Taylor, Dedicated Intermodal Truck Driver (ASCP) . 02 Note: Note 02 The [...] <-Panic Low,>-Panic High,A-Abnormal,AA-Critical Abnormal Performed at: [address] [address] Ernestina Carballo MD, [facility] CLINISYNCNOCox [place] papilloma virus 16+18+31+33+35+39+45+51+52+56+58+59+66+68 DNA [Presence] in CerOrdered By: Brent Roland on 54-28-9806KAO 16+18+31+33+35+39+45+51+52+56+58+59+66+68 DNA Probe+sig amp Ql (Cvx)NegativeNegativeSt. Mary'S Medical CenterComment on above: This nucleic acid amplification test detects fourteen high-risk HPV types (16,18,31,33,35,39,45,51,52,56,58,59,66,68)without differentiation.Performed at: = - [facility] [id number] Director: Ernestina Carballo MD, Phone: [phone] at: - [address] [id number] Director: Ernestina Carballo MD, Phone: [phone] Panel InformationOrdered By: Brent Roland on 64-15-9380VDW High Risk Other CommentNote.St. [facility]'S Medical CenterComment on above:TESTS RESULT FLAG UNITS REF RANGE LAB DIAGNOSIS: 02 NEGATIVE FOR INTRAEPITHELIAL LESION OR MALIGNANCY.Specimen adequacy: 02 Satisfactory forevaluation. No endocervical component is identified.Performed by: 02 Delphine Taylor, Dedicated Intermodal Truck Driver ([facility]). 02Note: Note 02 The Pap smear is a screening test designed to aid in the detection of premalignant and malignant conditions of the uterine cervix. It is not a diagnostic procedure and shouldnot be used as the sole means of detecting cervical cancer. Both false-positive and false-negative reports do occur.Test Methodology: Note 02 This liquid based ThinPrep(R) pap test was screened with the use of an image guided system.HPV Genotype Reflex Note 02 Criteria not met, HPV Genotype not perf ormed. FLAG LEGEND: L-Low Normal,H-HighNormal,LL-Alert Low,HH-Alert High <-Panic Low,>-Panic High,A-Abnormal,AA-Critical Abnormal---- Performed at:[address] [place] [address] Ernestina Carballo MD, Xfbbxrqmi Lab Test Patient AgeNote.St. Mary'S Medical CenterComment on above:TESTS RESULT FLAG UNITS REF RANGE LAB Clinician Provided Cytology Information Source.............Vagina No. of containers..01 ThinPrep VialAge Hal SNOW Olga... 30-65 01 FLAG LEGEND: L- Low Normal,H-High Normal,LL-Alert Low,HH-Alert High <-Panic Low,>-Panic High,A-Abnormal,AA-Critical Abnormal Performed at:01 =G [address] [address] Ernestina Carballo MD, Rxvszrwdxk Visit Summaryon 25-55-8562Vyazvtuwgl Visit SummaryAmbulatory Visit Summary KARLENE ALFARO :1990 Visit Date:10/02/2024 [...] Sotomayor When: Where: [facility] [address] , [place] [address]- Medications What How Much When Instructions Unchanged [...] about 300 mg of calcium at each meal.Foods that contain 200???500 mg of calcium a serving include: ? 8 oz (237 mL) of milk, gelnqfe-catbjgtzvhxz-iohzc milk, and calcium- fortifiedfruit juice. Calcium-fortified means [...] fresh fruits and vegetable (more content not included)...Normal [facility] Medical CenterUrology Office/Clinic Noteon 96-20-1945Ojnjujj Office/Clinic NoteUrology Office/Clinic Note Chief Complaint Cysto, removal of [...] ureteral catheter 08/02/24 - Severe L distal ureteralstricture found. 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 Follow-up With When Contact Information LUCY TSILES, Kamaljit Rivas, URL [facility] [address] [place] [address]- Additional Instructions: 3 mos with IVP Patient Education Dietary Guidelines to Help Prevent Kidney Stones I, Debbie Guadalupe, personally scribed for Dr. Ayala on 10/02/2024 [...] Family history is negati (more content not included)...[facility] HospitalComment on above:Result Comment: Electronically Signed By: Kamaljit AYALA MD\.br\Date and Time Signed: 10/02/24 15:55 EDT\.br\Electronically Co-Signed By: Debbie Guadalupe\.br\Date and Time Co-Signed: 10/02/24 15:45 EDT Provider Letteron 08-43-7027Ylzraqqn LetterProvider Letter September 13, 2024 KARLENE TAYLOR [address] [address] : 1990 To Whom It May Concern, Please excuse above patient from work. Date of Illness: From: 09/06/24 To: 10/02/24 May Return to Work On: 10/03/24 Restrictions: None Comments: Continuation of FMLA from 09/06/24- 10/02/24. Patient may return to work without restrictions on 10/03/24. Sincerely, [facility]/ Dr. Kamaljit Ayala [address] [facility]. [facility] [place] [address] [facility] HospitalComment on above:Other Comment: correction/ pt change mindProvider LetterProvider Letter September 13, 2024 KARLENE ALFARO [address] [address] : 1990 To Whom It May Concern, Please excuse above patient from work. Date of Illness: From: 09/06/24 To: 09/17/24 May Return to Work On:09/18/24 Restrictions: Patient may return to work 09/18/24 with no heavy lifting and light duty. Comments: N/A Sincerely, [facility] HospitalBasophils Auto (Bld) [#/Vol]on 99-69-1184Kovvxffgx (Bld) [#/Vol]0.0 10 3/uL0.0-0.1FMercy Health – The Jewish HospitalBasophils/100 WBC Auto (Bld)on 99-53-1605Rxyhrrmcv/100 WBC (Bld)0.6 % 0.2-2.0[facility] Medical CenterEosinophils/100 WBC Auto (Bld)on 75-73-8362Kxrpxcweaqb/100 WBC (Bld)3.0 %0.9-7.0[facility] Erythrocyte distribution width Auto (RBC) [Ratio]on 66-09-1760Irnrotqcmwg distribution width (RBC) [Ratio]13.2 %11.0-15.0[facility] Estimated glomerular filtration rate (GFR) non- Americanon 08-23-2024 GFR/1.73 sq M.predicted among non-blacks MDRD (S/P/Bld) [Vol rate/Area] mL/min/{1.73_m2}>=60 mL/min/1.73m 2FMercy Health – The Jewish HospitalHematocrit Auto (Bld) [Volume fraction]on 35-17-5277Wbrrimrhic (Bld) [Volume fraction]39.6 %36.0-48.0[facility] Medical CenterHemoglobin [Mass/volume] in Bloodon 49-90-9376Vnnuxbvclh (Bld) [Mass/Vol]12.9 g/dL12.0-16.0[facility] CenterLaboratory - Chemistry and Chemistry - challengeon 08-23-2024 Calcium [Mass/Vol]9.0 mg/dL8.5-10.1FMercy Health – The Jewish HospitalChloride [Moles/Vol]104 mmol/P29-533AdzhmwcieSt. Mary'S Medical CenterCO2 [Moles/Vol]26.7 mmol/L21.0-32.0[facility] CenterCreatinine [Mass/Vol]0.82 mg/dL 0.55-1.02St. [facility] Medical CenterGFR/1.73 sq M.predicted MDRD (S/P/Bld) [Vol rate/Area]mL/min/{1.73_m2}>=60 mL/min/1.73m 2FMercy Health – The Jewish HospitalGlucose [Mass/Vol]94 mg/pC16-432FfubsdbveSt. Mary'S Medical CenterPotassium [Moles/Vol]3.9 mmol/L3.5-5.1FOhioHealth Grady Memorial Hospitalodium [Moles/Vol] 139 mmol/S332-106OnnzdzgquSt. Mary'S Medical CenterUrea nitrogen [Mass/Vol]9.0 mg/dL7.0-18.0[facility] Medical CenterUrea nitrogen/Creatinine [Mass ratio]11.0 mg/mgSt. Mary'S Medical CenterLaboratory - Hematology and Cell countson 24-07-1073Vlwojwro granulocytes/100 WBC (Bld)0.1 %0.0-0.5FMercy Health – The Jewish HospitalLeukocytes [#/volume] corrected for nucleated erythrocytes in Blood by Automated counon 62-06-3036MZW corrected for nucl RBC Auto (Bld) [#/Vol]6.7 10 3/uL4.0-11.0[facility] Lymphocytes Auto (Bld) [#/Vol]on 81-31-6100Jrzrlqaaslh (Bld) [#/Vol]2.4 10 3/uL 1.2-3.8St. [facility] Medical CenterLymphocytes/100 WBC Auto (Bld)on 30-90-1198Gbneilmhpri/100 WBC (Bld)34.9 %20.5-60.0[facility] TrumbullH Auto (RBC) [Entitic mass]on 76-43-1578ITQ (RBC) [Entitic mass]26.2 pg Low26.7-34.0[facility] Medical CenterMCHC Auto (RBC) [Mass/Vol]on 28-28-7358GFVS (RBC) [Mass/Vol]32.6 g/dL29.9-35.2FMercy Health – The Jewish HospitalMCV Auto (RBC) [Entitic vol]on 79-00-2486DRT (RBC) [Entitic vol]80.5 fLLow 81.0-99.0[facility] Medical CenterMonocytes Auto (Bld) [#/Vol]on 36-05-7476Gkqevulez (Bld) [#/Vol]0.3 10 3/uL0.3-0.8St. [facility] Medical CenterMonocytes/100 WBC Auto (Bld)on 97-38-5000Amztwhkgv/100 WBC (Bld)4.9 % 1.7-12.0[facility] Medical CenterNeutrophils Auto (Bld) [#/Vol]on 68-47-0249Txjgrjwfsca (Bld) [#/Vol]3.8 10 3/uL1.4-6.5FMercy Health – The Jewish HospitalNeutrophils/100 WBC Auto (Bld)on 89-47-1857Dtinrtamxyc/100 WBC (Bld)56.5 % 43.0-75.0[facility] Medical CenterNo Panel Informationon 08-23-2024 Eosinophils # (Auto)0.2 10 3/uL0.0-0.7FMercy Health – The Jewish HospitalImmature Granulocyte # (Auto)0.01 10 3/uL0.00-0.03[facility] Platelet mean volume Auto (Bld) [Entitic vol]on 09-76-3947Mhcoatpq mean volume (Bld) [Entitic vol]8.9 fLLow9.5-13.5FMercy Health – The Jewish HospitalPlatelets Auto (Bld) [#/Vol]on 24-74-5385Viowqjytm (Bld) [#/Vol]398 10 3/eV670-780 [facility] Medical CenterRBC Auto (Bld) [#/Vol]on 22-39-8001MYL (Bld) [#/Vol]4.92 10 6/uL4.20-5.40[facility] TriPoint Medical Centererum or plasma anion gap determinationon 53-03-2829Rduga gap [Moles/Vol]12.2 mmol/LFMercy Health – The Jewish HospitalBasophils Auto (Bld) [#/Vol]on 65-66-3838Soateagvl (Bld) [#/Vol]0.1 10 3/uL0.0-0.1FMercy Health – The Jewish HospitalBasophils/100 WBC Auto (Bld)on 20-79-7908Sctsuavjb/100 WBC (Bld)0.6 %0.2-2.0[facility] Medical CenterEosinophils/100 WBC Auto (Bld)on 85-37-4407Xjoxdlinqrp/100 WBC (Bld)1.6 % 0.9-7.0St. [facility] Medical CenterErythrocyte distribution width Auto (RBC) [Ratio]on 80-27-5227Ohblpjemewq distribution width (RBC) [Ratio]13.1 % 11.0-15.0[facility] Medical CenterHematocrit Auto (Bld) [Volume fraction]on 66-17-8088Ammotwkqor (Bld) [Volume fraction]43.7 %36.0-48.0[facility] Medical CenterHemoglobin [Mass/volume] in Bloodon 00-89-3094Ubvjmaflpf (Bld) [Mass/Vol]14.1 g/dL12.0-16.0[facility] Medical CenterLaboratory - Hematology and Cell countson 04-11-7314Koxgcake granulocytes/100 WBC (Bld)0.2 % 0.0-0.5FMercy Health – The Jewish HospitalLeukocytes [#/volume] corrected for nucleated erythrocytes in Blood by Automated counon 98-14-3049PXS corrected for nucl RBC Auto (Bld) [#/Vol]9.0 10 3/uL4.0-11.0[facility] Lymphocytes Auto (Bld) [#/Vol]on 81-25-6068Tklaxzfzvnp (Bld) [#/Vol]3.0 10 3/uL 1.2-3.8St. [facility] Medical CenterLymphocytes/100 WBC Auto (Bld)on 22-37-3879Iboowdxhean/100 WBC (Bld)33.4 %20.5-60.0[facility] - TrumbullH Auto (RBC) [Entitic mass]on 64-53-9599WUX (RBC) [Entitic mass]26.7 pg 26.7-34.0[facility] Medical CenterMCHC Auto (RBC) [Mass/Vol]on 18-65-0375WTXJ (RBC) [Mass/Vol]32.3 g/dL29.9-35.2FMercy Health – The Jewish HospitalMCV Auto (RBC) [Entitic vol]on 84-42-3150YJP (RBC) [Entitic vol]82.8 fL 81.0-99.0[facility] Medical CenterMonocytes Auto (Bld) [#/Vol]on 02-45-8603Dhzhhclhg (Bld) [#/Vol]0.5 10 3/uL0.3-0.8St[facility] Medical CenterMonocytes/100 WBC Auto (Bld)on 63-58-2138Cwbtmdpzg/100 WBC (Bld)5.4 % 1.7-12.0St[facility] Medical CenterNeutrophils Auto (Bld) [#/Vol]on 30-79-5164Hvxgkfchdcc (Bld) [#/Vol]5.3 10 3/uL1.4-6.5FMercy Health – The Jewish HospitalNeutrophils/100 WBC Auto (Bld)on 06-05-7669Xvfsbdblhmz/100 WBC (Bld)58.8 % 43.0-75.0[facility] Medical CenterNo Panel Informationon 08-02-2024 Eosinophils # (Auto)0.1 10 3/uL0.0-0.7FMercy Health – The Jewish HospitalImmature Granulocyte # (Auto)0.02 10 3/uL0.00-0.03[facility] Platelet mean volume Auto (Bld) [Entitic vol]on 78-30-6898Ofgkbcel mean volume (Bld) [Entitic vol]8.9 fLLow9.5-13.5FMercy Health – The Jewish HospitalPlatelets Auto (Bld) [#/Vol]on 15-34-4972Qwskfartz (Bld) [#/Vol]369 10 3/dE923-363 [facility] Medical CenterRBC Auto (Bld) [#/Vol]on 84-86-7579YSW (Bld) [#/Vol]5.28 10 6/uL4.20-5.40[facility] CenterALL CBC WITH AUTO DIFFon [id number] ABSOLUTE AUTO0.1NOMS HealthcareBasophils/100 WBC (Bld)0.6 %0.2 - 2.0 %[facility] HealthcareEosinophils/100 WBC (Bld)1.8 %0.9 - 7.0 % NOMS HealthcareErythrocyte distribution width (RBC) [Ratio]13.2 %11.0 - 15.0 % [facility] HealthcareHematocrit (Bld) [Volume fraction]40.5 %36.0 - 48.0 %[facility]red HospitalHemoglobin (Bld) [Mass/Vol]13.1 g/dL12.0 - 16.0 g/dLKindred Hospital IMMATURE GRANULOCYTES ABS AUTO0.02NOMercy Hospital South, formerly [facility] Medical CenterImmature granulocytes/100 WBC (Bld)0.2 %0.0 - 0.5 %[facility] HospitalInterpretation and review of laboratory resultsAbnormalKindred HospitalLYMPHOCYTES ABSOLUTE AUTO2.7N[facility]S [facility] Lymphocytes/100 WBC (Bld)30.8 %20.5 - 60.0 %[facility] HospitalH (RBC) [Entitic mass]26.6 pgLow26.7 - 34.0 pgRanken Jordan Pediatric Specialty HospitalHC (RBC) [Mass/Vol]32.3 g/dL29.9 - 35.2 g/dLRanken Jordan Pediatric Specialty HospitalV (RBC) [Entitic vol]82.3 fL81.0 - 99.0 fLKindred HospitalMONOCYTES ABSOLUTE AUTO0.6NOMercy Hospital [facility], formerly St[facility] Medical CenterMonocytes/100 WBC (Bld)6.6 % 1.7 - 12.0 %[facility] HospitalNEUTROPHILS ABSOLUTE AUTO5.3N[facility] Neutrophils/100 WBC (Bld)60 %43.0 - 75.0 %[facility]red HospitalPlatelet mean volume (Bld) [Entitic vol]9.1 fLLow9.5 - 13.5 fLKindred HospitalTBH EO #0.2NOMS HealthcareTB [id number] [facility] RBC4.92[facility] CampusTB WBC8.8[facility] CampusCLINISYNCNOMS HealthcareBasophils Auto (Bld) [#/Vol]on 07-23-2024 Basophils (Bld) [#/Vol]0.1 10 3/uL0.0-0.1FMercy Health – The Jewish Hospital Basophils/100 WBC Auto (Bld)on 07-39-1788Nvezkokde/100 WBC (Bld)0.6 %0.2-2.0 [facility] CenterECG 12-LEADon 06-87-7364H[address] [address] Electrocardiograph Report Signed Patient: KARLENE ALFARO MR#: [id number] : 1990 Acct:[id number] Age/Sex: 34 / F ADM Date: 07/23/24 Loc: PST Attending Dr: Brent Roland D.O. Ordering Physician: Brent Roland D.O. 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 Measurements Intervals [place] Rate: 71 P: 33 NH: 148 QRS: [...] Signed By: 07/23/24 1154 DD/ 1129 TD/TT: Carton Making Machine Operator:TBHRadiology, Radiologist, MD - 07/23/2024 [place] [address] Electrocardiograph Report Signed Patient: KARLENE ALFARO MR#: [id number] : 1990 Acct:[id number] Age/Sex: 34 / F ADM Date: 07/23/24 Loc: PST Attending Dr: Brent Roland D.O. Ordering Physician: Brent Roland D.O. 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 Measurements Intervals [place] Rate: 71 P: 33 NH: 148 QRS: 42 QRSD: 82 T: 30 QT: 389 QTc: 424 Interpretive Statements SINUS RHYTHM POSSIBLE RIGHT VENTRICULAR CONDUCTION DELAY [RSR (QR) IN V1/V2] Borderline ECG Compared to ECG 05/02/2023 11:46:38 Sinus tachycardia no longer present Right-axis deviation no longer present Electronically Signed On 07-23-2024 11:53:48 EDT by CHUY SHABAZZ M.D. Dictated By: CHUY SHABAZZ Signed By: 07/23/24 1159 DD/ 1129 TD/TT: Carton Making Machine Operator: LALO HealthcareRadiology Study observation (narrative)[facility]red HospitalEC 12-LEAD Ordered By: Radiologist Radiology on 75-36-2804[facility] Work Phone: Eosinophils/100 WBC Auto (Bld)on 07-23-2024 Eosinophils/100 WBC (Bld)1.8 %0.9-7.0[facility] Erythrocyte distribution width Auto (RBC) [Ratio]on 02-21-0633Jvpkcoomvzv distribution width (RBC) [Ratio]13.2 %11.0-15.0[facility] Estimated glomerular filtration rate (GFR) non- Americanon 07-23-2024 GFR/1.73 sq M.predicted among non-blacks MDRD (S/P/Bld) [Vol rate/Area] mL/min/{1.73_m2}>=60 mL/min/1.73m [address] [place], [place] [address]Globulin Calc (S) [Mass/Vol]on 38-70-3204Ytgyvphn (S) [Mass/Vol]3.6 g/dLSt. Mary'S Medical CenterHematocrit Auto (Bld) [Volume fraction]on 07-23-2024 Hematocrit (Bld) [Volume fraction]40.5 %36.0-48.0[facility] Medical CenterHemoglobin [Mass/volume] in Bloodon 06-48-0922Otkitodlhb (Bld) [Mass/Vol] 13.1 g/dL12.0-16.0[facility] CenterLaboratory - Chemistry and Chemistry - challengeon 85-88-7902Ywyzrgv [Mass/Vol]3.5 g/dL3.4-5.0[facility] CenterALP [Catalytic activity/Vol]70 U/J52-553SxqbpuujmSt. Mary'S Medical CenterALT [Catalytic activity/Vol]37 U/B04-86TxdrxdzrmSt. Mary'S Medical CenterAST [Catalytic activity/Vol]15 U/P76-25ZapsindonSt. Mary'S Medical CenterBilirubin [Mass/Vol]0.3 mg/dL0.2-1.0[facility] Calcium [Mass/Vol]8.6 mg/dL8.5-10.1FMercy Health – The Jewish HospitalChloride [Moles/Vol]105 mmol/A05-614QyjcjywbkSt. Mary'S Medical CenterCO2 [Moles/Vol]26.9 mmol/L21.0-32.0[facility] CenterCreatinine [Mass/Vol]0.83 mg/dL 0.55-1.02St[facility] Medical CenterGFR/1.73 sq M.predicted MDRD (S/P/Bld) [Vol rate/Area]mL/min/{1.73_m2}>=60 mL/min/1.73m 2FMercy Health – The Jewish HospitalGlucose [Mass/Vol]88 mg/eX92-259NdudpnlqbSt. Mary'S Medical CenterPotassium [Moles/Vol]4.3 mmol/L3.5-5.1FMercy Health – The Jewish HospitalProtein [Mass/Vol] 7.1 g/dL6.4-8.2FOhioHealth Grady Memorial Hospitalodium [Moles/Vol]138 mmol/L 136-145St. [facility] Medical CenterUrea nitrogen [Mass/Vol]14.0 mg/dL 7.0-18.0[facility] Medical CenterUrea nitrogen/Creatinine [Mass ratio] 16.9 mg/mgSt. Mary'S Medical CenterLaboratory - Hematology and Cell countson 67-25-4627Ekecyaxo granulocytes/100 WBC (Bld)0.2 %0.0-0.5FMercy Health – The Jewish HospitalLeukocytes [#/volume] corrected for nucleated erythrocytes in Blood by Automated counon 82-49-1034PKJ corrected for nucl RBC Auto (Bld) [#/Vol]8.8 10 3/uL4.0-11.0[facility] Lymphocytes Auto (Bld) [#/Vol]on 98-08-6099Nipdkugkeoh (Bld) [#/Vol]2.7 10 3/uL 1.2-3.8St. [facility] Medical CenterLymphocytes/100 WBC Auto (Bld)on 72-12-0885Zberpdeoxpu/100 WBC (Bld)30.8 %20.5-60.0[facility]ullH Auto (RBC) [Entitic mass]on 17-73-5303LGZ (RBC) [Entitic mass]26.6 pg Low26.7-34.0[facility] TrumbullHC Auto (RBC) [Mass/Vol]on 82-62-5358CGVR (RBC) [Mass/Vol]32.3 g/dL29.9-35.2FMercy Health – The Jewish HospitalMCV Auto (RBC) [Entitic vol]on 01-57-0094WTK (RBC) [Entitic vol]82.3 fL 81.0-99.0St. [facility] Medical CenterMonocytes Auto (Bld) [#/Vol]on 53-66-2703Gasbffbfd (Bld) [#/Vol]0.6 10 3/uL0.3-0.8St. [facility] Medical CenterMonocytes/100 WBC Auto (Bld)on 86-28-9019Exryrhvgl/100 WBC (Bld)6.6 % 1.7-12.0St. [facility] Medical CenterNeutrophils Auto (Bld) [#/Vol]on 17-32-9963Hkcgroaqypo (Bld) [#/Vol]5.3 10 3/uL1.4-6.5FMercy Health – The Jewish HospitalNeutrophils/100 WBC Auto (Bld)on 73-06-5024Dsqlpxtfbjx/100 WBC (Bld)60.0 % 43.0-75.0[facility] Medical CenterNo Panel Informationon 07-23-2024 Eosinophils # (Auto)0.2 10 3/uL0.0-0.7FMercy Health – The Jewish HospitalImmature Granulocyte # (Auto)0.02 10 3/uL0.00-0.03[facility] Platelet mean volume Auto (Bld) [Entitic vol]on 01-76-8859Dujoigqj mean volume (Bld) [Entitic vol]9.1 fLLow9.5-13.5FMercy Health – The Jewish HospitalPlatelets Auto (Bld) [#/Vol]on 91-18-2091Xaiiglxcg (Bld) [#/Vol]380 10 3/gH154-307 [facility] Medical CenterRBC Auto (Bld) [#/Vol]on 62-45-1993QMM (Bld) [#/Vol]4.92 10 6/uL4.20-5.40[facility] Medical Centererum or plasma albumin/globulin mass ratioon 12-92-8152Pftokbr/Globulin [Mass ratio]1.0 {ratio} [facility] Centererum or plasma anion gap determinationon 23-76-7281Wgntq gap [Moles/Vol]10.4 mmol/LFMercy Health – The Jewish Hospital RECURRENT VAGINITIS (HTRX)on 95-93-2654MDCRDTAWN KXLNZPX34.718AbnormalNOMS HealthcareATOPOBIUM VAGINAEDetectedAbnormalNOMS HealthcareBVAB 2,3 (BACTERIAL VAGINOSIS ASSOCIATED BACTERIA 2, 3); MOBILUNCUS KQS4ARAB HealthcareBVAB 2,3 (BACTERIAL VAGINOSIS ASSOCIATED BACTERIA 2, 3); MOBILUNCUS SPPNot detectedNOMS HealthcareCANDIDA ALBICANS, PARAPSILOSIS, UVUCZKBCBJ6VUGR HealthcareCANDIDA ALBICANS, PARAPSILOSIS, TROPICALISNot detectedNOMS HealthcareCANDIDA GLABRATA0 NOMS HealthcareCANDIDA GLABRATANot detectedNOMS HealthcareCANDIDA FSYNQL5HBYF HealthcareCANDIDA KRUSEINot detectedNOMS HealthcareCHLAMYDIA ULUWPGNRAQK1GGVD HealthcareCHLAMYDIA TRACHOMATISNot detectedNOMS HealthcareGARDNERELLA VAGINALIS0 NOMS HealthcareGARDNERELLA VAGINALISNot detectedNOMS HealthcareInterpretation and review of laboratory resultsAbnormalNOMS HealthcareMEGASPHAERA (TYPES 1, 2)0 NOMS HealthcareMEGASPHAERA (TYPES 1, 2)Not detectedNOMS HealthcareMYCOPLASMA YOYROJPMRQ0MLVT HealthcareMYCOPLASMA GENITALIUMNot detectedNOMS Healthcare NEISSERIA PILRHXGPTKW6ZKTV HealthcareNEISSERIA GONORRHOEAENot detectedNOMS HealthcareTRICHOMONAS XSHQMWSRD6BKXF HealthcareTRICHOMONAS VAGINALISNot detected NOMS HealthcareNOMS HealthcareUrinalysis macro (dipstick) panel (U)on 07-10-2024 Bilirubin, UANegativeNegative - 4(70) +++ mg/dLNOMS HealthcareBlood, UANegative Negative - 50 Arnulfo/mcLNOMS HealthcareClarity, UAClearNOMS HealthcareColor, UA YellowNOMS HealthcareGlucose, UANegativeNegative - 2000(110) ++++ mg/dLNOMS HealthcareInterpretation and review of laboratory resultsNormalNOMS Healthcare Ketones, UANegativeNegative - 160(16) ++++ mg/dLNOMS HealthcareLeukocytes, UA NegativeNegative - 500+++ Corrina/mcLNOMS HealthcareNitrite, UANegativeNegative - PositiveNOMS HealthcarepH, UA75 - 9NOMS HealthcareProtein, UANegativeNegative - 2000(20) ++++ mg/dLNOMS HealthcareSpec Grav, UA1.0251 - 1.03NOMS Healthcare Urobilinogen, UA0.20.2 - 12 mg/dLNOMS HealthcareNOMS HealthcareUS PELVIS W/ TRANSVAGINALon 07-76-4542[place] [address] Ultrasound Report Signed Patient: KARLENE ALFARO MR#: [id number] : 1990 Acct:[id number] Age/Sex: 34 / F ADM Date: 07/03/24 Loc: US Attending Dr: Brent Roland D.O. Ordering Physician: Brent Roland D.O. Date of Service: 07/03/24 Procedure(s): US pelvis w/ transvaginal Accession Number(s): [id number] cc: Surya Hodges M.D.; Brent Roland D.O. The [address] [address] Patient Name: KARLENE ALFARO MRN: [id number] date: 1990 Sex: F Assigned Patient Location: US Current Patient Location: US Accession/Order Number: [id number] Exam Date: 07/03/2024 09:28 Report Date: 07/03/2024 [...] Jovan Martin M.D.07/03/2024 9:30 AM Dictation Location: [place] [address] Electronically authenticated by: [id number] Y Date: 07/03/2024 09:30 Dictated By: Jovan Martin D.O. 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 Ordering Physician: Brent Roland D.O. Date of Service: 07/03/24 Procedure(s): US pelvis w/ transvaginal Accession Number(s): [id number] cc: Surya Hodges M.D.; Brent Roland D.O. The [place] [id number] Patient Name: KARLENE ALFARO MRN: [id number] date: 1990 Sex: F Assigned Patient Location: US Current Patient Location: US Accession/Order Number: [id number] Exam Date: 07/03/2024 09:28 Report Date: 07/03/2024 [...] Jovan Martin M.D.07/03/2024 9:30 AM Dictation Location: [place] [address] Electronically authenticated by: [id number] Y Date: 07/03/2024 09:30 Dictated By: Jovan Martin D.O. Signed By: 07/03/2433 DD/ 9 TD/TT: Carton Making Machine Operator: LALO HealthcareRadiology Study observation (narrative)LALO HealthcareUS PELVIS W/ TRANSVAGINALOrdered By: Radiologist Radiology on 54-00-4252XLHK Healthcare Work Phone: basophils Auto (Bld) [#/Vol]on 62-98-7439Snwbosqbz (Bld) [#/Vol]0.0 10 3/uL0.0-0.1FMercy Health – The Jewish HospitalBasophils/100 WBC Auto (Bld)on 92-27-8336Atyyplefp/100 WBC (Bld)0.5 %0.2-2.0St[facility] Medical CenterCholesterol in LDL Calc [Mass/Vol]on 31-10-5699Heycgvuepuy in LDL [Mass/Vol]149.0 mg/dLSt. Mary'S Medical CenterComment on above:<100 mg/dl MOICLQK227-263 mg/dl NEAR OR ABOVE PVUUHQH963-846 mg/dl BORDERLINE BIBA842-145 mg/dl HIGH>190 mg/dl VERY HIGHCholesterol in VLDL Calc [Mass/Vol]on 39-02-2407Pksxgnykfad in VLDL [Mass/Vol]20.4 mg/dLSt. Mary'S Medical CenterEosinophils/100 WBC Auto (Bld)on 95-89-0661Nruxltyfvpm/100 WBC (Bld)1.6 % 0.9-7.0St[facility] CenterErythrocyte distribution width Auto (RBC) [Ratio]on 20-53-3153Xjstifihenx distribution width (RBC) [Ratio]13.2 % 11.0-15.0[facility] CenterEstimated glomerular filtration rate (GFR) non- Americanon 62-87-0272FFN/1.73 sq M.predicted among non-blacks MDRD (S/P/Bld) [Vol rate/Area]mL/min/{1.73_m2}>=60St. [facility] Medical CenterGlobulin Calc (S) [Mass/Vol]on 81-16-4709Bsmpjryo (S) [Mass/Vol]3.8 g/dL [facility] Medical CenterHematocrit Auto (Bld) [Volume fraction]on 90-08-9324Npwusawbpv (Bld) [Volume fraction]41.8 %36.0-48.0[facility] CenterHemoglobin [Mass/volume] in Bloodon 12-94-1926Udoqmvupkl (Bld) [Mass/Vol]13.3 g/dL12.0-16.0[facility] CenterLaboratory - Chemistry and Chemistry - challengeon 35-81-6685Dduedzm [Mass/Vol]3.9 g/dL 3.4-5.0[facility] CenterALP [Catalytic activity/Vol]70 U/L46-116 [facility] CenterALT [Catalytic activity/Vol]20 U/L14-59 [facility] CenterAST [Catalytic activity/Vol]12 U/SOoy84-97 [facility] CenterBilirubin [Mass/Vol]0.6 mg/dL0.2-1.0[facility] CenterCalcium [Mass/Vol]8.7 mg/dL8.5-10.1FMercy Health – The Jewish HospitalChloride [Moles/Vol]102 mmol/A39-699PicafnjomSt. Mary'S Medical CenterCholesterol [Mass/Vol]226 mg/dLHigh<=200St[facility] Cholesterol in HDL [Mass/Vol]57 mg/lV57-89UvshwtsjtSt. Mary'S Medical Center Comment on above:> or =60 mg/dl - LOW CARDIOVASCULAR RISK<40 mg/dl - HIGH CARDIOVASCULAR RISKCO2 [Moles/Vol]27.2 mmol/L21.0-32.0[facility] CenterCreatinine [Mass/Vol]0.86 mg/dL0.55-1.02[facility] GFR/1.73 sq M.predicted MDRD (S/P/Bld) [Vol rate/Area]mL/min/{1.73_m2}>=60 [facility] Medical CenterGlucose [Mass/Vol]89 mg/xB57-621HpupnqnvpSt. Mary'S Medical CenterPotassium [Moles/Vol]4.0 mmol/L3.5-5.1FMercy Health – The Jewish HospitalProtein [Mass/Vol]7.7 g/dL6.4-8.2FMercy Health – [facility] Sodium [Moles/Vol]139 mmol/F091-701IinblkpagSt. Mary'S Medical CenterTriglyceride [Mass/Vol]102 mg/dL<=150St. [facility]S Medical CenterUrea nitrogen [Mass/Vol]9.0 mg/dL7.0-18.0[facility] Medical CenterUrea nitrogen/Creatinine [Mass ratio]10.5 mg/mgSt. Mary'S Medical Center Laboratory - Hematology and Cell countson 05-38-1441Wasgvcfm granulocytes/100 WBC (Bld)0.2 %0.0-0.5FMercy Health – The Jewish HospitalLeukocytes [#/volume] corrected for nucleated erythrocytes in Blood by Automated counon 39-37-1113IPI corrected for nucl RBC Auto (Bld) [#/Vol]8.0 10 3/uL4.0-11.0St. [facility] Medical CenterLymphocytes Auto (Bld) [#/Vol]on 77-88-0910Eztsyimpntt (Bld) [#/Vol]2.4 10 3/uL1.2-3.8St. [facility] Medical CenterLymphocytes/100 WBC Auto (Bld)on 76-26-1434Jofqcstpjqv/100 WBC (Bld)29.7 %20.5-60.0[facility]ullH Auto (RBC) [Entitic mass]on 72-22-7526MVK (RBC) [Entitic mass]26.3 pgLow26.7-34.0[facility] Medical CenterMCHC Auto (RBC) [Mass/Vol]on 76-61-1018BSPB (RBC) [Mass/Vol]31.8 g/dL29.9-35.2FMercy Health – The Jewish HospitalMCV Auto (RBC) [Entitic vol]on 81-97-7460HIH (RBC) [Entitic vol]82.6 fL81.0-99.0[facility] Medical CenterMonocytes Auto (Bld) [#/Vol]on 32-58-2685Dqivuxgds (Bld) [#/Vol]0.4 10 3/uL0.3-0.8St[facility] CenterMonocytes/100 WBC Auto (Bld)on 18-82-7385Gpwywwegu/100 WBC (Bld)5.5 %1.7-12.0St[facility] Medical CenterNeutrophils Auto (Bld) [#/Vol]on 76-57-0071Wsezkxtgcnx (Bld) [#/Vol]5.0 10 3/uL1.4-6.5FMercy Health – The Jewish HospitalNeutrophils/100 WBC Auto (Bld)on 09-07-2023 Neutrophils/100 WBC (Bld)62.5 %43.0-75.0[facility] CenterNo Panel Informationon 73-68-0573Rcglnzlatui # (Auto)0.1 10 3/uL0.0-0.7FMercy Health – The Jewish HospitalImmature Granulocyte # (Auto)0.02 10 3/uL0.00-0.03 [facility] CenterPlatelet mean volume Auto (Bld) [Entitic vol]on 82-87-6616Mcgmbvpt mean volume (Bld) [Entitic vol]9.4 fLLow9.5-13.5FMercy Health – The Jewish HospitalPlatelets Auto (Bld) [#/Vol]on 62-76-5660Wrplultcr (Bld) [#/Vol]381 10 3/fG635-704WfkgmeltrSt. Mary'S Medical CenterRBC Auto (Bld) [#/Vol] on 52-12-4546PTB (Bld) [#/Vol]5.06 10 6/uL4.20-5.40[facility] Medical Centererum or plasma albumin/globulin mass ratioon 47-55-3176Csvbosl/Globulin [Mass ratio]1.0 {ratio}[facility] Centererum or plasma anion gap determinationon 99-89-8845Ppbfu gap [Moles/Vol]13.8 mmol/LFOhioHealth Grady Memorial Hospitalerum or plasma total cholesterol/high density lipoprotein (HDL) cholesterol mass linwood 96-44-9698Juoidzaeetz.total/Cholesterol in HDL [Mass ratio]4.0 {ratio}[facility] Medical CenterComment on above:3.3 - 4.4 LOW RISK4.4 - 7.1 AVERAGE RISK7.1 - 11.0 MODERATE RISK>11.0 HIGH RISKBasophils Auto (Bld) [#/Vol]on 96-77-6757Ewcudkhxv (Bld) [#/Vol]0.1 10 3/uL0.0-0.1FMercy Health – The Jewish HospitalBasophils/100 WBC Auto (Bld)on 12-74-1515Tigyeaxkp/100 WBC (Bld)0.4 %0.2-2.0[facility] CenterEosinophils/100 WBC Auto (Bld)on 93-74-2442Sfdlzxssthn/100 WBC (Bld)0.1 %0.9-7.0St[facility] CenterErythrocyte distribution width Auto (RBC) [Ratio]on 05-02-2023 Erythrocyte distribution width (RBC) [Ratio]13.1 %11.0-15.0[facility] CenterEstimated glomerular filtration rate (GFR) non- Americanon 98-15-9938JML/1.73 sq M.predicted among non-blacks MDRD (S/P/Bld) [Vol rate/Area]mL/min/{1.73_m2}>=60St. [facility] Medical CenterHematocrit Auto (Bld) [Volume fraction]on 67-79-0712Lgrqvbuxwr (Bld) [Volume fraction]41.6 % 36.0-48.0[facility] CenterHemoglobin [Mass/volume] in Bloodon 15-03-0129Weqilpepdx (Bld) [Mass/Vol]13.6 g/dL12.0-16.0[facility] CenterLaboratory - Chemistry and Chemistry - challengeon 05-02-2023 Calcium [Mass/Vol]8.7 mg/dL8.5-10.1FMercy Health – The Jewish HospitalChloride [Moles/Vol]101 mmol/Q42-381RxbqwfpxkSt. Mary'S Medical CenterCO2 [Moles/Vol]24.8 mmol/L21.0-32.0[facility] CenterCreatinine [Mass/Vol]0.89 mg/dL 0.55-1.02St[facility] CenterGFR/1.73 sq M.predicted MDRD (S/P/Bld) [Vol rate/Area]mL/min/{1.73_m2}>=60St[facility] CenterGlucose [Mass/Vol]112 mg/tZ97-073KwbhlnzrvSt. Mary'S Medical CenterPotassium [Moles/Vol] 4.0 mmol/L3.5-5.1FOhioHealth Grady Memorial Hospitalodium [Moles/Vol]137 mmol/L 136-145St. [facility] Medical CenterUrea nitrogen [Mass/Vol]5.0 mg/dL 7.0-18.0[facility] CenterUrea nitrogen/Creatinine [Mass ratio] 5.6 mg/mgSt. Mary'S Medical CenterLaboratory - Hematology and Cell countson 91-37-9949Aljjpmgv granulocytes/100 WBC (Bld)0.3 %0.0-0.5FMercy Health – The Jewish HospitalLaboratory - Microbiology and Antimicrobial susceptibilityon 05-02-2023S. pyogenes Ag Ql (Unsp spec)PositiveFirelands Regional Medical JxwrsjFPOM-XvG-1 (COVID-19) RNA LEO+probe Ql (Unsp spec) NegativeNEGATIVESt. Mary'S Medical CenterComment on above:This test has not been FDA cleared or approved, but has beenauthorized by the FDA under an Emergency Use Authorization(EUA) for use by authorized laboratories certified underIA that meet the requirements to perform moderate or highcomplexity testing. This test has been authorized only forthe detection of proteins from SARS-CoV-2, not for any otherviruses or pathogens. The emergency use of this t est isauthorized for the duration of the declaration thatcircumstances exist justifying the authorization ofemergency use of in vitro diagnostic tests for detectionand/or diagnosis of Covid-19 under section 564(b)(1) of theAct, U.S.C. 360bbb-3(b)(1), unless the declaration isterminated or authorization is revoked sooner.Leukocytes [#/volume] corrected for nucleated erythrocytes in Blood by Automated counon 15-16-5486NOD corrected for nucl RBC Auto (Bld) [#/Vol]12.4 10 3/uL4.0-11.0St[facility] Medical CenterLymphocytes Auto (Bld) [#/Vol]on 94-61-0319Ixzubyvsnuj (Bld) [#/Vol]1.0 10 3/uL1.2-3.8St. [facility] Medical CenterLymphocytes/100 WBC Auto (Bld)on 05-02-2023 Lymphocytes/100 WBC (Bld)7.9 %20.5-60.0[facility]ullH Auto (RBC) [Entitic mass]on 91-18-4822OMZ (RBC) [Entitic mass]27.9 pg26.7-34.0 [facility] Medical CenterMCHC Auto (RBC) [Mass/Vol]on 59-09-7379BREB (RBC) [Mass/Vol]32.7 g/dL29.9-35.2FGerman HospitalV Auto (RBC) [Entitic vol]on 59-83-0163QKI (RBC) [Entitic vol]85.2 fL81.0-99.0[facility] Medical CenterMonocytes Auto (Bld) [#/Vol]on 99-90-2796Chygboeao (Bld) [#/Vol]0.8 10 3/uL0.3-0.8St[facility] CenterMonocytes/100 WBC Auto (Bld)on 70-18-9672Blfzwjams/100 WBC (Bld)6.3 %1.7-12.0St[facility] Medical CenterNeutrophils Auto (Bld) [#/Vol]on 36-60-5612Yggwhqbwwpp (Bld) [#/Vol]10.5 10 3/uL1.4-6.5FMercy Health – The Jewish HospitalNeutrophils/100 WBC Auto (Bld)on 72-15-7446Yoptmjixckx/100 WBC (Bld)85.0 %43.0-75.0[facility] CenterNo Panel Informationon 02-48-0519Txhcyos Influenza Type A AntigenNegativeSt. Mary'S Medical CenterComment on above:Negative for Flu A protein antigen. Infection due to Flu Acannot be ruled out. Flu A antigen in thesample may bebelow the detection limit of the test.Bedside Influenza Type B AntigenNegativeSt. Mary'S Medical CenterComment on above:Negative for Flu B protein antigen. Infection due to Flu Bcannot be ruled out. Flu B antigen in thesample may bebelow the detection limit of the test.Eosinophils # (Auto)0.0 10 3/uL0.0-0.7FMercy Health – The Jewish HospitalImmature Granulocyte # (Auto) 0.04 10 3/uL0.00-0.03St[facility] Medical CenterMonoscreenNegativeNEGATIVE St. [facility]'S Medical CenterPlatelet mean volume Auto (Bld) [Entitic vol]on 39-53-5917Ymsbzrnb mean volume (Bld) [Entitic vol]8.9 fL9.5-13.5FMercy Health – The Jewish HospitalPlatelets Auto (Bld) [#/Vol]on 76-59-4177Keewbwyeb (Bld) [#/Vol]369 10 3/sR931-016RrlxynfmoSt. Mary'S Medical CenterRBC Auto (Bld) [#/Vol] on 36-77-9568ESX (Bld) [#/Vol]4.88 10 6/uL4.20-5.40[facility] Medical Centererum or plasma anion gap determinationon 57-60-8127Vprvv gap [Moles/Vol] 15.2 mmol/LFMercy Health – The Jewish HospitalCytology Cervical or vaginal smear or scraping studyOrdered By: Kenyatta Salazar on 37-73-2062HEWGKindred Hospital Cholesterol [Mass/volume] in Serum or PlasmaOrdered By: Baljinder Polanco on 06-47-7986Badttddwvoh [Mass/Vol]214 mg/dZ447-830BatofsdocSt. Mary'S Medical CenterComment on above:Chol less than 200 mg/dl low riskChol 201-239 mg/dl borderline riskChol 240 mg/dl and greater high riskCholesterol in LDL Calc [Mass/Vol]Ordered By: Baljinder Polanco on 01-08-9624Yjcwjgbvebs in LDL [Mass/Vol] 132 mg/dL0-100St. [facility]'S Medical CenterComment on above:LDL ATP III CLASSIFICATIONLDL less than 100 mg/dL OptimalLDL 100-129 mg/dL Near or above lrhaygaLOF644-488 mg/dL Borderline highLDL 160-189 mg/dL HighLDL greater than 189 mg/dL Very highCholesterol in VLDL Calc [Mass/Vol]Ordered By: Baljinder Polanco on 72-50-7236Htmenrsaafx in VLDL [Mass/Vol]27 mg/dLSt. Mary'S Medical CenterGlucose mean value [Mass/volume] in Blood Estimated from glycated hemoglobinOrdered By: Baljinder Polanco on 33-75-9022Obvgghb glucose Estimated from glycated hemoglobin (Bld) [Mass/Vol]120 mg/dLSt. Mary'S Medical Center Hemoglobin A1c percentageOrdered By: Baljinder Polanco on 33-90-9633CcE5c (Bld) [Mass fraction]5.8 %4.3-5.6FMercy Health – The Jewish HospitalComment on above: Increased risk for diabetes: 5.7 - 6.4diabetes: >6.4glycemic control for adults with diabetes: <7.0Serum or plasma high density lipoprotein (HDL) cholesterol measurementOrdered By: Baljinder Polanco on 72-03-6584Pgrcvqhdlsm in HDL [Mass/Vol] 54 mg/vM74-14EcnzefzygSt. Mary'S Medical CenterComment on above:HDL CHOL ATP-III CLASSIFICATION Cardiovascular RiskHDL > or equal to 60 mg/dL LOWHDL < 40 mg/dL HIGHSerum or plasma total cholesterol/high density lipoprotein (HDL) cholesterol mass ratOrdered By: Baljinder Polanco on 06-35-3081Ieqdscwvruf.total/Cholesterol in HDL [Mass ratio]4.0 {ratio}<5.0St. Mary'S Medical CenterTriglyceride [Mass/volume] in Serum or PlasmaOrdered By: Baljinder Polanco on 12-01-2022 Triglyceride [Mass/Vol]139 mg/dL0-149St. Mary'S Medical CenterComment on above:TRIG ATP III CLASSIFICATIONTRIG less than 150 mg/dL NormalTRIG 150-199 mg/dL Borderline highTRIG 200-500 mg/dL High TRIG greater than 500 mg/dL Very highStandard traceable to the Center for Disease Conrtrol and Prevention (CDC) test method.Troponin I.cardiac [Mass/volume] in Serum or Plasma by Detection limit <= 0.01 ng/Ordered By: Baljinder Polanco on 56-29-0118Sgdeccmj I.cardiac DL <= 0.01 ng/mL [Mass/Vol]27.1 pg/mL0.0-15.0[facility] Activated partial thromboplastin time (aPTT) in platelet poor plasma by coagulation aOrdered By: Marcio Steven on [id number] Coag (PPP) [Time]32.4 s 25.1-36.5FMercy Health – The Jewish HospitalComment on above:A hematocrit value greater than 55% may lead to inaccurate results in coagulation testing. Patients having hematocrit values >55% require a special collection tube for coagulation studies. Please contact the laboratory at [phone] for redraw instructions. Alanine aminotransferase [Enzymatic activity/volume] in Serum or PlasmaOrdered By: Marcio Steven on 43-19-5635AKJ [Catalytic activity/Vol]16 U/L7-52St. [facility]'S Medical CenterAlbumin [Mass/volume] in Serum or Plasma by Bromocresol green (BCG) dye binding methoOrdered By: Marcio Steven on 17-20-9553Seowyii BCG dye [Mass/Vol]4.4 g/dL3.5-5.7FMercy Health – The Jewish HospitalAlkaline phosphatase [Enzymatic activity/volume] in Serum or PlasmaOrdered By: Marcio Steven on 32-84-8012PMA [Catalytic activity/Vol]73 U/C81-321PbtxtesmmSt. Mary'S Medical CenterAspartate aminotransferase [Enzymatic activity/volume] in Serum or PlasmaOrdered By: Marcio Steven on 51-82-4270XKJ [Catalytic activity/Vol]11 U/L 13-39St[facility] Medical CenterBasic Metabolic Panelon 56-80-7514Cjtbidu [Mass/Vol]9.4900304 mg/dLNormal8.6-10.3 mg/dLAmerican Well SecretSales Other CO2 [Moles/Vol]23.82955384 mmol/UTqnwjl17.0-31.0 mmol/LNIntercloud Systems Other Creatinine [Mass/Vol]0.50837563 mg/dLNormal0.60-1.20 mg/dLNoAuthentium Other GFR/1.73 sq M.predicted MDRD (S/P/Bld) [Vol rate/Area] mL/min/{1.73_m2}Pfenex Other Potassium [Moles/Vol]4.27951921 mmol/LNormal3.5-5.1 mmol/LNIntercloud Systems Other Basic Metabolic PanelOrdered By: Marcio Steven on 11-58-8648Gbvwcsaz [Moles/Vol]104 mmol/J05-037AeeypfizkSt. Mary'S Medical Center Glucose [Mass/Vol]77 mg/fA40-965SxjhalrdjSt. Mary'S Medical CenterComment on above:ADA recommended reference rangeRandom Glucose Reference Range is dependent on time and content of last meal. Glucose of more than 200 mg/dL in a nonstressed, ambulatory subject supports the diagnosisof Diabetes Mellitus. Sodium [Moles/Vol]138 mmol/V557-435JpiemvlrmSt. Mary'S Medical CenterUrea nitrogen [Mass/Vol]9 mg/dL7-25St. [facility]S Medical CenterBasophils Auto (Bld) [#/Vol]Ordered By: Marcio Steven on 36-36-3057Ywyuokpny (Bld) [#/Vol]0.1 10*3/uL0.0-0.2FMercy Health – The Jewish HospitalBasophils/100 WBC Auto (Bld) Ordered By: Marcio Steven on 12-32-8988Jfqpdliiu/100 WBC (Bld)0.8 %.St. [facility]'S Medical CenterBilirubin Test strip Ql (U)Ordered By: Marcio Steven on 00-33-5272Extjqkxxm Ql (U)NegativeNegativeSt. Mary'S Medical Center Bilirubin.direct [Mass/volume] in Serum or PlasmaOrdered By: Marcio Steven on 26-10-6972Flbgrtqrs.direct [Mass/Vol]0.00 mg/dL0.03-0.18FMercy Health – The Jewish HospitalComment on above:If the DBIL is less than 0.1, IBIL is not able to becalculated.Bilirubin.total [Mass/volume] in Serum or PlasmaOrdered By: Marcio Steven on 96-13-3111Abvpzbats [Mass/Vol]0.9 mg/dL0.3-1.0[facility] Medical CenterCOVID-19 Detected/Not DetectedOrdered By: Marcio Steven on 11-53-0714JFKV-CoV-2 (COVID-19) RNA LEO+non-probe Ql (Nph)Not detectedNot DetectFisher-Titus Medical CenterComment on above:This is a duplicate RP2.1 COVID (PCR) result to be used for statistical tracking purpose only. Calcium [Mass/volume] in Serum or PlasmaOrdered By: Marcio Steven on 11-30-2022 Calcium [Mass/Vol]9.5 mg/dL8.6-10.3FMercy Health – The Jewish HospitalCarbon dioxide, total [Moles/volume] in Serum or PlasmaOrdered By: Marcio Steven on 74-55-6535KV2 [Moles/Vol]23.9 mmol/L21.0-31.0[facility] Color Auto (U)Ordered By: Marcio Steven on 22-63-0507Wchwd (U)YellowYellow [facility] CenterComplete Blood Count Auto Diffon 11-30-2022 Basophils (Bld) [#/Vol]0.340660759 10*3/uLNormal0.0-0.2 10*3/HD [employer] Other Basophils/100 WBC (Bld)0.800 %. %Pfenex Other Eosinophils (Bld) [#/Vol]0.638979005 10*3/uLNormal0.0- 0.45 10*3/HD [employer] Other Eosinophils/100 WBC (Bld)0.900 %. %Pfenex Other Erythrocyte distribution width (RBC) [Ratio]14.300 % Nmdebb08.9-15.3 %Pfenex Other Hematocrit (Bld) [Volume fraction]41.000 %Eokmch95.0- 46.4 %Pfenex Other Hemoglobin (Bld) [Mass/Vol]13.878045 g/dDRrffcf77.8- 15.4 g/dLAuthentium Other Lymphocytes (Bld) [#/Vol]2.228456536 10*3/uLNormal 1.00-4.8 10*3/HD [employer] Other Lymphocytes/100 WBC (Bld)32.300 %. %Pfenex Other MCH (RBC) [Entitic mass]27.0000 hqDqymtt43.7-34.3 pg Pfenex Other MCV (RBC) [Entitic vol]81.0000 oSSwexkn97-899 fLPfenex Other Monocytes (Bld) [#/Vol]0.822123273 10*3/uLNormal0.0- 0.8 10*3/HD [employer] Other Monocytes/100 WBC (Bld)6.800 %. %Pfenex Other Neutrophils (Bld) [#/Vol]4.910663202 10*3/uLNormal1.8- 7.7 10*3/HD [employer] Other Neutrophils/100 WBC (Bld)59.200 %. %Pfenex Other Platelet mean volume (Bld) [Entitic vol]7.2000 fL Normal6.3-10.7 fLAuthentium Other WBC (Bld) [#/Vol]8.380301319 10*3/uLNormal3.8-11.6 10*3/HD [employer] Other Complete Blood Count Auto Diff8.2 10*3/uLNormal3.8- 11.6 10*3/HD [employer] Other Complete Blood Count Auto Diff33.3 g/kHScgtsz00.0-35.0 g/dLPfenex Other Complete Blood Count Auto Diff0.2 /100{WBC}Normal0-0.5 /100{WBC}Pfenex Other Complete Blood Count Auto DiffOrdered By: Marcio Steven on 58-89-5049Kwdsidhqh (Bld) [#/Vol]368 10*3/eW210-309CthacnymoSt. Mary'S Medical CenterRBC (Bld) [#/Vol]5.06 10*6/uL3.60-5.00[facility] Creatine kinase [Enzymatic activity/volume] in Serum or PlasmaOrdered By: Marcio Steven on 51-97-9031VJ [Catalytic activity/Vol]18 U/H08-037MdfdiydohSt. Mary'S Medical CenterCreatinine [Mass/volume] in Serum or PlasmaOrdered By: Marcio Steven on 16-83-9256Unvfkokmpn [Mass/Vol]0.83 mg/dL0.60-1.20St[facility] Medical CenterEosinophils Auto (Bld) [#/Vol]Ordered By: Marcio Steven on 11-30-2022 Eosinophils (Bld) [#/Vol]0.1 10*3/uL0.0-0.45[facility] Eosinophils/100 WBC Auto (Bld)Ordered By: Marcio Steven on 11-30-2022 Eosinophils/100 WBC (Bld)0.9 %.[facility]S Medical CenterErythrocyte distribution width Auto (RBC) [Ratio]Ordered By: Marcio Steven on 11-30-2022 Erythrocyte distribution width (RBC) [Ratio]14.3 %11.9-15.3FMercy Health – The Jewish HospitalFibrin D-dimer [Presence] in Platelet poor plasma by Latex agglutinationOrdered By: Marcio Steven on 47-68-6183Ebtook D-dimer LA Ql (PPP)< 200 ng/mL0-243St. [facility]S Medical CenterComment on above:The reference range for D-dimer is <243 ng/mL D-dimer units.D-dimer results must be used in conjunction with a clinicalpretest probability (PTP) assessment model for deep veinthrombosis (DVT) and pulmonary embolism (PE). Results <230ng/mL d-dimer units can be used as a negative predictor inpatients with low or moderate probability for DVT/PE.Results above the exclusion threshold of 230 ng/ml D- dimerunits for DVT/PE may indicate the need for furtherdiagnostic testing.D- Dimer can be increased in hospitalized patients due toco-morbid conditions.A hematocrit value greater than 55% may lead to inaccurate results in coagulation testing. Patients having hematocrit values >55% require a special collection tube for coagulation studies. Please contact the laboratory at [phone] for redraw instructions.Free T4 (Free Thyroxine)on 99-90-0304Fdcw T4 [Mass/Vol] 1.56965265 ng/dLHigh0.61-1.12 ng/dLNobarnes-jewish hospital SecretSales Other Globulin Calc (S) [Mass/Vol]Ordered By: Marcio Steven on 28-81-6692Bbzwrnwn (S) [Mass/Vol]3.2 g/dLSt. Mary'S Medical Center Glucose Glucometer (BldC) [Mass/Vol]Ordered By: Baljinder Polanco on 11-30-2022 Glucose [Mass/Vol]100 mg/dLSt. Mary'S Medical CenterComment on above: Random Glucose Reference Range is dependent on time and content of last meal. Glucose of more than 200 mg/dL in a nonstressed, ambulatory subject supports the diagnosis of Diabetes Mellitus.Hematocrit Auto (Bld) [Volume fraction]Ordered By: Marcio Steven on 31-49-0258Ukydvvzczu (Bld) [Volume fraction]41.0 %34.0-46.4 [facility] Medical CenterHemoglobin [Mass/volume] in BloodOrdered By: Marcio Steven on 98-47-4105Etmxygepqv (Bld) [Mass/Vol]13.7 g/dL11.8-15.4FMercy Health – The Jewish HospitalINR in Platelet poor plasma by Coagulation assayOrdered By: Marcio Steven on 92-58-0427OFU Coag (PPP) [Relative time]1.1 {INR}[facility] Medical CenterComment on above:INR Therapeutic Range A) Pre- and Peroperative OAT started two weeks before surgery. NOT HIP SURGERY: 1.5 - 2.5 HIP SURGERY: 2 - 3B) Primary and secondary prevention of venous THROMBOSIS: 2 - 3C) Active venous thrombosis, pulmonary embolismand prevention of recurrent venous thrombosis: 2 - 3D) Prevention of arterial thromboembolismincluding patients with mechanical heart valves: 3 - 4.5Ketones Auto test strip (U) [Mass/Vol]Ordered By: Marcio Steven on 89-73-1619Cbymhqu (U) [Mass/Vol]Trace NegativeSt. Mary'S Medical CenterLeukocytes [#/volume] corrected for nucleated erythrocytes in Blood by Automated counOrdered By: Marcio Steven on 43-52-7550NJC corrected for nucl RBC Auto (Bld) [#/Vol]8.2 10*3/uL3.8-11.6 [facility] Medical CenterLymphocytes Auto (Bld) [#/Vol]Ordered By: Marcio Steven on 74-81-6962Kewuqdnaiki (Bld) [#/Vol]2.7 10*3/uL1.00-4.8St. [facility] Medical CenterLymphocytes/100 WBC Auto (Bld)Ordered By: Marcio Steven on 45-99-7540Qxogukzviqh/100 WBC (Bld)32.3 %.[facility] Tr[facility]ullH Auto (RBC) [Entitic mass]Ordered By: Marcio Steven on 77-93-3613PPF (RBC) [Entitic mass]27.0 pg24.7-34.3FMercy Health – The Jewish HospitalMCHC Auto (RBC) [Mass/Vol]Ordered By: Marcio Steven on 89-19-7119AALE (RBC) [Mass/Vol]33.3 g/dL 32.0-35.0[facility] Medical CenterMCV Auto (RBC) [Entitic vol]Ordered By: Marcio Steven on 29-55-1890FJV (RBC) [Entitic vol]81.0 mX98-382JudbrosmaSt. Mary'S Medical CenterMagnesium [Mass/volume] in Serum or PlasmaOrdered By: Marcio Steven on 81-61-2375Fbaquagru [Mass/Vol]1.9 mg/dL1.9-2.7FMercy Health – The Jewish HospitalMonocyte distribution width [Entitic volume] in Blood by Automated Ordered By: Marcio Steven on 10-99-5203Cmvahmbp distribution width Auto (Bld) [Entitic vol]19.22 %0.00-20.00[facility] Medical CenterMonocytes Auto (Bld) [#/Vol]Ordered By: Marcio Steven on 87-80-2138Yynsmfcjp (Bld) [#/Vol]0.6 10*3/uL0.0-0.8St. [facility] Medical CenterMonocytes/100 WBC Auto (Bld) Ordered By: Marcio Steven on 73-25-6866Gbpbkuzwo/100 WBC (Bld)6.8 %.[facility] Medical CenterNatriuretic peptide B [Mass/Vol]Ordered By: Marcio Steven on 42-20-1474Lsnjbgmjtfp peptide B (Bld) [Mass/Vol]13.0 pg/mL5-100St[facility] Medical CenterNeutrophils Auto (Bld) [#/Vol]Ordered By: Marcio Steven on 06-85-2301Bjhycabaldi (Bld) [#/Vol]4.9 10*3/uL1.8-7.7FMercy Health – The Jewish HospitalNeutrophils/100 WBC Auto (Bld)Ordered By: Marcio Steven on 11-30-2022 Neutrophils/100 WBC (Bld)59.2 %.[facility] Medical CenterNitrite Test strip Ql (U)Ordered By: Marcio Steven on 54-18-4827Nrhgenm Ql (U)NegativeNegative [facility] Medical CenterNo Panel InformationOrdered By: Marcio Steven on 85-70-9684Dsjbehinw GFR (CKD-EPI)> 60.0 mL/MinSt. Mary'S Medical Center Pharmacy Creatinine Clearance (Qaar647.08[facility] Nucleated erythrocytes [Presence] in Blood by Automated countOrdered By: Marcio Steven on 75-35-6181Wciztnvyl RBC Auto Ql (Bld)0.2 /100{WBC}0-0.5FMercy Health – The Jewish HospitalPlatelet mean volume Auto (Bld) [Entitic vol]Ordered By: Marcio Steven on 96-56-6636Esemwlvr mean volume (Bld) [Entitic vol]7.2 fL6.3-10.7 [facility] CenterPotassium [Moles/volume] in Serum or Plasma Ordered By: Marcio Steven on 63-58-4514Edsuqqvbu [Moles/Vol]4.1 mmol/L3.5-5.1 [facility] CenterProtein Auto test strip (U) [Mass/Vol]Ordered By: Marcio Steven on 59-40-8874Wllghsl (U) [Mass/Vol]NegativeNegativeSt. Mary'S Medical CenterProtein [Mass/volume] in Serum or PlasmaOrdered By: Marcio Steven on 09-66-2665Aumjgzv [Mass/Vol]7.6 g/dL6.4-8.9[facility] CenterProthrombin time (PT)Ordered By: Marcio Steven on 17-75-4367EJ Coag (PPP) [Time]12.5 s9.0-12.9St[facility] Medical CenterComment on above:A hematocrit value greater than 55% may lead to inaccurate results in coagulation testing. Patientshaving hematocrit values >55% require a special collection tube for coagulation studies. Please contact the laboratory at [phone] for redraw instructions.Respiratory pathogens DNA and RNA panel - Nasopharynx by LEO with non-probe detectionOrdered By: Marcio Steven on 75-91-3845Keacvrykewp pathogens DNA and RNA panel LEO+non-probe (Nph)[facility] Serum or plasma albumin/globulin mass ratioOrdered By: Marcio Steven on 11-30-2022 Albumin/Globulin [Mass ratio]1.4 {ratio}[facility] Centererum or plasma anion gap determinationOrdered By: Marcio Steven on 07-18-7752Bdklp gap [Moles/Vol]14.2 mmol/L6.0-15.0[facility] Centererum or plasma non-glucuronidated bilirubin measurement (mass/volume)Ordered By: Marcio Steven on 26-42-1071Htxjhuipn.indirect [Mass/Vol]0.9 mg/dLLakeHealth TriPoint Medical Centerpecific gravity Auto test strip (U) [Rel density]Ordered By: Marcio Steven on 68-53-2299Tegcofwt gravity (U) [Rel density]1.0131.001-1.030[facility] CenterThyroid Stimulating Hormoneon 46-97-0165YNU Qn 0.35850847972 m[IU]/LLow0.45-5.33 u[iU]/[facility] HospitalIntercloud Systems Other Thyrotropin [Units/volume] in Serum or PlasmaOrdered By: Marcio Steven on 55-33-8528QKN Qn0.03 m[IU]/L0.45-5.33[facility] Medical CenterThyroxine (T4) free [Mass/volume] in Serum or PlasmaOrdered By: Marcio Steven on 38-46-8705Uscy T4 [Mass/Vol]1.56 ng/dL0.61-1.12[facility] Medical CenterTriiodothyronine (T3) Free [Mass/volume] in Serum or Plasma Ordered By: Marcio Steven on 86-95-7530Kmia T3 [Mass/Vol]3.89 pg/mL2.50-3.90 [facility] CenterUrine clarity by refractometry automatedOrdered By: Marcio Steven on 80-51-5253Kltsacy Refractometry automated (U)ClearClear [facility] Medical CenterUrine glucose measurement by automated test strip (mass/volume)Ordered By: Marcio Steven on 04-98-0357Hrowpxj Auto test strip (U) [Mass/Vol]Normal mg/dLNormPremier Health Miami Valley Hospital NorthUrine hemoglobin detection by automated test stripOrdered By: Marcio Steven on 30-44-4371Frkabvmfmg Auto test strip Ql (U)NegativeNegativeSt. Mary'S Medical CenterUrine leukocyte esterase detection by automated test stripOrdered By: Marcio Steven on 36-85-0666Tygaqxzwg esterase Auto test strip Ql (U)Negative NegativeSt. Mary'S Medical CenterUrobilinogen Auto test strip (U) [Mass/Vol]Ordered By: Marcio Steven on 30-36-5853Jbpoieguzxov (U) [Mass/Vol]Normal mg/dLNoHarrison Community HospitalWBC Auto (Bld) [#/Vol]Ordered By: Marcio Steven on 89-47-0176VGH (Bld) [#/Vol]8.2 10*3/uL3.8-11.6FMercy Health – The Jewish HospitalpH Auto test strip (U)Ordered By: Marcio Steven on 60-49-7917uM (U) [pH]5.0-9.0[facility] CenterCORTISOL FREE, SERUMon 06-17-2022 Cortisol, Free Dialysis, LCMS0.649 ug/dLNoMercy Health St. Charles HospitalComment on above:Result Comment: These tests were developed and their performance characteristics determined by [facility]. They have not been cleared or approved by the Food and Drug Administration. Reference Range: 8 AM 0.10 - 1.20 4 PM 0.042 - 0.872Performed By: #### REVRT3 #### [facility] [address] [place] [address] Dr. Dimple ParsonsBAPTIST HEALTH PADUCAH AUTO DIFFon 27-53-3346TGFM #0.1 103/ulNormal0.0-0.1The [facility] HospitalComment on above:Performed By: #### REVRT3 #### [facility] [address] [place] [address] Dr. Dimple ParsonsBasophils/100 WBC (Bld)0.6 %Normal0.2-2.0The [facility] Comment on above:Performed By: #### REVRT3 #### [facility] [address] [place] [address] Dr. Dimple Orona #0.4 103/ulNormal0.0-0.7The [facility] HospitalComment on above: Performed By: #### REVRT3 #### [facility] [address] [place] [address] Dr. Dimple Manzanoosinophils/100 WBC (Bld)4.0 %Normal0.9-7.0[facility] Comment on above:Performed By: #### REVRT3 #### [facility] [address] [place] [address] Dr. Dimple Manzanorythrocyte distribution width (RBC) [Ratio]13.8 %Lqgkxg14.0-15.0 The [facility] HospitalComment on above:Performed By: #### REVRT3 #### [facility] [address] [place] [address] Dr. Dimple ParsonsHematocrit (Bld) [Volume fraction]39.8 %Gztuwe27.0-48.0The [facility] HospitalComment on above:Performed By: #### REVRT3 #### [facility] [address] [place] [address] Dr. Dimple ParsonsHemoglobin (Bld) [Mass/Vol]12.9 g/cHOcaqbi57.0-16.0The [facility] HospitalComment on above:Performed By: #### REVRT3 #### [facility] [address] [place] [address] Dr. Dimple Adorno #0.02 10e3/ulNormal0.00-0.03The [facility] HospitalComment on above:Performed By: #### REVRT3 #### [facility] [address] [place] [address] Dr. Dimple Adorno %0.2 %Normal0.0-0.5The [facility] HospitalComment on above: Performed By: #### REVRT3 #### [facility] [address] [place] [address] Dr. Dimple Wells #3.1 103/ulNormal1.2-3.8The [facility] HospitalComment on above:Performed By: #### REVRT3 #### [facility] [address] [place] [address] Dr. Dimple Ortizhocytes/100 WBC (Bld)33.5 %Wuznaj05.5-60.0The [facility] HospitalComment on above:Performed By: #### REVRT3 #### [facility] [address] [place] [address] Dr. Dimple YepezUAL DIFF REQNONormalThe [facility] HospitalComment on above: Performed By: #### REVRT3 #### [facility] [address] [place] [address] Dr. Dimple Barnes (RBC) [Entitic mass]26.1 pgCritically low26.7-34.0The [facility] HospitalComment on above:Performed By: #### REVRT3 #### [facility] [address] [place] [address] Dr. Dimple Barnes (RBC) [Mass/Vol]32.4 g/zKXukjbh37.9-35.2The [facility] HospitalComment on above:Performed By: #### REVRT3 #### [facility] [address] [place] [address] Dr. Dimple Barnes (RBC) [Entitic vol]80.4 fLCritically low81.0-99.0The [facility] HospitalComment on above:Performed By: #### REVRT3 #### [facility] [address] [place] [address] Dr. Dimple Urias #0.5 103/ulNormal0.3-0.8The Mikana HospitalComment on above:Performed By: #### REVRT3 #### [facility] [address] [address] [address] Dimple ParsonsMonocytes/100 WBC (Bld)5.2 %Normal1.7-12.0[facility] Comment on above:Performed By: #### REVRT3 #### [facility] [address] [place] [address] Dr. Dimple LeonardoUT #5.2 103/ulNormal1.4-6.5The [facility] HospitalComment on above:Performed By: #### REVRT3 #### [facility] [address] [place] [address] Dr. Dimple Leonardoutrophils/100 WBC (Bld)56.5 %Kvcbbs17.0-75.0The [facility] HospitalComment on above:Performed By: #### REVRT3 #### [facility] [address] [place] [address] Dr. Dimple ParsonsPlatelet mean volume (Bld) [Entitic vol]8.7 fLCritically low 9.5-13.5The [facility] HospitalComment on above:Performed By: #### REVRT3 #### [facility] [address] [place] [address] Dr. Dimple ParsonsPLT376 103/jiChjfni558-209Nuy [facility] HospitalComment on above: Performed By: #### REVRT3 #### [facility] [address] [place] [address] Dr. Dimple ParsonsRBC4.95 106/ulNormal4.20-5.40The [facility] HospitalComment on above:Performed By: #### REVRT3 #### [facility] [address] [place] [address] Dr. Dimple ParsonsWBC9.3 103/ulNormal4.0-11.0The [facility] HospitalComment on above: Performed By: #### REVRT3 #### [facility] [address] [place] [address] Dr. Dimple ParsonsTESTOSTERONE, FREE,DIRECT, TOTALon 69-27-9725Wuzr Testosterone(Direct)1.6 pg/mLNormal0.0-4.2The [facility] HospitalComment on above: Result Comment: Performed at: BNPerformed By: #### CBC #### [facility] [address] [place] [address] Dr. Dimple ParsonsTestosterone [Mass/Vol]22 ng/dLNormal8-60[facility] Comment on above:Result Comment: Performed at: CBPerformed By: #### CBC #### [facility] [address] [place] [address] Dr. Musa ChangESTROGENon 24-01-7975Kriufoqed, Rwinq442 pg/mLNormalThe [facility] HospitalComment on above:Result Comment: Prepubertal < 40 Female Cycle: 1-10 Days 16 - 328 11-20 Days 34 - 501 21-30 Days 48 - 350 Post-Menopausal 40 - 244Performed By: #### DHEASUL #### [facility] [address] [place] [address] Dr. Dimple ParsonsSEROTONINon 94-19-5814Aoumuendd, Serum20 ng/mLCritically low 31-207The [facility] HospitalComment on above:Performed By: #### SEROTON #### [facility] [address] [place] [address] Dr. Dimple ParsonsREVERSE T3on 64-62-9338Umjfail T3, Serum15.6 ng/dLNormal9.2-24.1 The [facility] HospitalComment on above:Result Comment: This test was developed and its performance characteristics determined by [facility]. It has not been cleared or approved by the Food and Drug Administration.Performed By: #### REVRT3 #### [facility] [address] [place] [address] Dr. Dimple Infante D 1 25 DIHYDROXYon 99-97-5317Okmnzoyyqk(1,25 di-OH Vit D)12.2 pg/mLCritically low24.8-81.5The [facility] HospitalComment on above:Performed By: #### [id number] #### [facility] [address] [place] [address] Dr. Dimple ParsonsC-PEPTIDE, SERUMon 11-83-9458O-Peptide, Serum3.3 ng/mLNormal 1.1-4.4The [facility] HospitalComment on above:Result Comment: C-Peptide reference interval is for fasting patients.Performed By: #### REVRT3 #### [facility] [address] [place] [address] Dr. Dimple CaicedoEA-SULFATEon 56-91-9693UDEX-Ovqqwnt779.0 ug/aGAxbiia15.8-378.0 The [facility] HospitalComment on above:Performed By: #### DHEASUL #### [facility] [address] [place] [address] Dr. Musa ChangESTRADIOLon 29-63-1584Ifarsouvh014.0 pg/mLNormalThe [facility] HospitalComment on above:Result Comment: Adult Female: Follicular phase 12.5 - 166.0 Ovulation phase 85.8 - 498.0 Luteal phase 43.8 - 211.0 Postmenopausal <6.0 - 54.7 1st trimester 215.0 - >4300.0 Kye ECLIA methodologyPerformed By: #### REVRT3 #### [facility] [address] [place] [address] Dr. Dimple ParsonsINSULINon 04-17-6388Ejlpcum34.1 uIU/mLNormal2.6-24.9The [facility] HospitalComment on above:Performed By: #### CBC #### [facility] [address] [place] [address] Dr. Dimple ParsonsPROGESTERONEon 81-04-7955Qaibljmknvur1.8 ng/mLNormalOhio State Health SystemComment on above:Result Comment: Follicular phase 0.1 - 0.9 Luteal phase 1.8 - 23.9 Ovulation phase 0.1 - 12.0 First trimester 11.0 - 44.3 Second trimester 25.4 - 83.3 Third trimester 58.7 - 214.0 Postmenopausal 0.0 - 0.1Performed By: #### DHEASUL #### [facility] [address] [place] [address] Dr. Dimple ParsonsSEX HORMONE-BINDING GLOBULINon 83-78-8172Ees Horm Binding Glob, Serum40.7 nmol/KNwggkw66.6-122.0The [facility] HospitalComment on above:Performed By: #### CBC #### [facility] [address] [place] [address] Dr. Dimple ParsonsT3, TOTAL (TRIIODOTHYRONINE)on 03-21-9694W8, TOTAL89 ng/dLNormal 71-180The [facility] HospitalComment on above:Performed By: #### REVRT3 #### [facility] [address] [place] [address] Dr. Dimple ParsonsTHYROID PEROXIDASE ABon 77-83-4914Kblszig Peroxidase (TPO) Ab12 IU/mLNormal0-34The [facility] HospitalComment on above:Performed By: #### DHEASUL #### [facility] [address] [place] [address] Dr. Dimple ParsonsFERRITINon 74-11-6523Ylyumeyb [Mass/Vol]193.0 ng/mLCritically high6.2-137.0The [facility] HospitalComment on above:Performed By: #### DHEASUL #### [facility] [address] [place] [address] Dr. Dimple Esquivel T3on 84-97-7525NGLM T32.24 pg/mlLNormal2.18-3.98The [facility] HospitalComment on above:Performed By: #### REVRT3 #### [facility] [facility] [address] [place] [address] Dr. Dimple Esquivel T4on 69-12-6009Liqz T4 [Mass/Vol]1.14 ng/dLNormal0.76-1.46 The [facility] HospitalComment on above:Performed By: #### DHEASUL #### [facility] [address] [place] [address] Dr. Dimple ParsonsGLUCOSE BLOODon 69-52-8640Uxdhrlv [Mass/Vol]92 mg/cEPaylev03-962 The [facility] HospitalComment on above:Performed By: #### REVRT3 #### [facility] [address] [place] [address] Dr. Dimple ParsonsGLYCOHEMOGLOBIN A1Con 79-25-8725AMX RECOMMENDATIONSEE BELOWNormal The [facility] HospitalComment on above:Result Comment: ADA RECOMMENDED LIMIT 4.0 - 6.0 ADA THERAPEUTIC TARGET < 7.0 ACTION SUGGESTED > 7.0Performed By: #### A1C #### [facility] [address] [place] [address] Dr. Dimple ParsonsGlucose [Mass/Vol]100 mg/dLNormalThe [facility] HospitalComment on above:Performed By: #### A1C #### [facility] [address] [place] [address] Dr. Dimple ParsonsHbA1c (Bld) [Mass fraction]5.1 %Normal4.5-6.2The [facility] HospitalComment on above:Performed By: #### A1C #### [facility] [address] [place] [address] Dr. Dimple ParsonsT4on 20-08-5010A1 [Mass/Vol]8.60 ug/dLNormal4.80-13.90The [facility] HospitalComment on above:Performed By: #### REVRT3 #### [facility] [address] [place] [address] Dr. Dimple ParsonsTSHon 39-92-9794GYW9.442 uIU/mLNormal0.358-3.740The [facility] HospitalComascension borgess allegan [facility] on above:Performed By: #### REVRT3 #### [facility] [address] [place] [address] Dr. Dimple ParsonsUS PELVIS AND TRANSVAGon [id number] PELVIS AND TRANSVAGEXAM: US PELVIS AND TRANSVAG HISTORY: Cyst of left ovary COMPARISON: [...] Electronically authenticated by: KAYLA GORDON Date: 2022-05-25 13:36NoMer[facility] Health [address] Charles HospitalXR KUB 1 VIEWon [id number] KUB 1 VIEWEXAMINATION: XR KUB 1 VIEW HISTORY: Kidney stone [...] Electronically authenticated by: DAVID ALDANA Date: 2022-05-21 06:53[facility] GlenbeighCBC AUTO DIFFon 30-72-0545MVCJ #0.0 103/ulNormal0.0-0.1[place] [facility] SystemComment on above:Performed By: #### CBC #### [facility] [address] [address] [address] Dimple ParsonsBasophils/100 WBC (Bld)0.3 %Normal0.2-2.0[facility] Comment on above:Performed By: #### CBC #### [facility] [address] [address] [address] Dimple Orona #0.2 103/ulNormal0.0-0.7The [facility] HospitalComment on above: Performed By: #### CBC #### [facility] [address] [address] [address] Dimple Manzanoosinophils/100 WBC (Bld)1.3 %Normal0.9-7.0[facility] Comment on above:Performed By: #### CBC #### [facility] [address] [address] [address] Dimple Manzanorythrocyte distribution width (RBC) [Ratio]13.9 %Vgfchg51.0-15.0 The [facility] on above:Performed By: #### CBC #### [facility] [address] [place] [address] Dr. Dimple ParsonsHematocrit (Bld) [Volume fraction]38.8 %Jgbdaw00.0-48.0The [facility] HospitalComment on above:Performed By: #### CBC #### [facility] [address] [place] [address] Dr. Dimple ParsonsHemoglobin (Bld) [Mass/Vol]12.8 g/kJEsejkx94.0-16.0The [facility] HospitalComment on above:Performed By: #### CBC #### [facility] [address] [place] [address] Dr. Dimpel Adorno #0.15 10e3/ulCritically high0.00-0.03[facility] Comment on above:Performed By: #### CBC #### [facility] [address] [place] [address] Dr. Dimple Adorno %1.3 %Critically high0.0-0.5The [facility] Healthment on above:Performed By: #### CBC #### [facility] [address] [place] [address] Dr. Dimple OrtizH #3.4 103/ulNormal1.2-3.8The [facility] HospitalComment on above:Performed By: #### CBC #### [facility] [address] [place] [address] Dr. Dimple Alejandramphocytes/100 WBC (Bld)28.9 %Gncgco64.5-60.0The [facility] Healthment on above:Performed By: #### CBC #### [facility] [address] [place] [address] Dr. Dimple YepezUAL DIFF REQNONormalThe [facility] HospitalComment on above: Performed By: #### CBC #### [facility] [address] [address] [address] Dimple Barnes (RBC) [Entitic mass]25.9 pgCritically low26.7-34.0The [facility] HospitalComment on above:Performed By: #### CBC #### [facility] [address] [place] [address] Dr. Dimple Barnes (RBC) [Mass/Vol]33.0 g/dYLtgqux45.9-35.2The [facility] HospitalComment on above:Performed By: #### CBC #### [facility] [address] [place] [address] Dr. Dimple Barnes (RBC) [Entitic vol]78.5 fLCritically low81.0-99.0The [facility] HospitalComment on above:Performed By: #### CBC #### [facility] [address] [place] [address] Dr. Dimple Urias #0.7 103/ulNormal0.3-0.8The [facility] HospitalComment on above:Performed By: #### CBC #### [facility] [address] [place] [address] Dr. Dimple Mayorgaocytes/100 WBC (Bld)6.2 %Normal1.7-12.0[facility] Comment on above:Performed By: #### CBC #### [facility] [address] [place] [address] Dr. Dimple Silver #7.3 103/ulCritically high1.4-6.5[facility] Comment on above:Performed By: #### CBC #### [facility] [address] [place] [address] Dr. Dimple Leonardoutrophils/100 WBC (Bld)62.0 %Ljwbdo26.0-75.0The [facility] HospitalComment on above:Performed By: #### CBC #### [facility] [address] [place] [address] Dr. Dimple Salinaslet mean volume (Bld) [Entitic vol]9.1 fLCritically low 9.5-13.5The [facility] HospitalComment on above:Performed By: #### CBC #### [facility] [address] [place], [place] [address] Dr. Dimple ParsonsPLT426 103/arYbvoor060-544Ztl [facility] HospitalComment on above: Performed By: #### CBC #### [facility] [address] [address] [address] Dimple ParsonsRBC4.94 106/ulNormal4.20-5.40The [facility] HospitalComment on above:Performed By: #### CBC #### [facility] [address] [place], [place] [address] Dr. Dimple ParsonsWBC11.9 103/ulCritically high4.0-11.0The [facility] on above:Performed By: #### CBC #### [facility] [address] [address] [address] Dimple ParsonsCT ABD/PELVIS WO CONon 78-90-0516WV ABD/PELVIS WO CONEXAMINATION: CT ABD/PELVIS WO CON, 05/08/2022 3:55 AM [...] outpatient ultrasound. Note: Exam was submitted to [facility] operations Incidental Findings call que, to call the above findings to the patient's primary care provider nonemergently. Electronically authenticated by: RERE CARLISLE Date: 2022-05-08 05:24[facility] GlenbeighPROF 14(COMP METB)on 32-71-0499Yzrbpeq [Mass/Vol]4.0 g/dLNormal 3.4-5.0The [facility] Healthment on above:Performed By: #### REVRT3 #### [facility] [address] [place] [address] Dr. Dimple ParsonsAlbumin/Globulin [Mass ratio]1.1 {ratio}NormalThe [facility] on above:Performed By: #### REVRT3 #### [facility] [address] [address] [address] Dimple Richards [Catalytic activity/Vol]76 U/KXkyapj46-116Msi [facility] on above:Performed By: #### REVRT3 #### [facility] [address] [place] [address] Dr. Dimple WattsT [Catalytic activity/Vol]20 U/VGlxqkn75-12Ojp [facility] HospitalComment on above:Performed By: #### REVRT3 #### [facility] [address] [place] [address] Dr. Dimple ParsonsAnion gap [Moles/Vol]14.9 mmol/LNormalOhio State Health System Comment on above:Performed By: #### REVRT3 #### [facility] [address] [place] [address] Dr. Dimple ParsonsAST [Catalytic activity/Vol]19 U/GJvhmtw32-27Eqg [facility] HospitalComment on above:Performed By: #### REVRT3 #### [facility] [address] [place] [address] Dr. Dimple ParsonsBilirubin [Mass/Vol]0.6 mg/dLNormal0.2-1.0[facility] Comment on above:Performed By: #### REVRT3 #### [facility] [address] [place] [address] Dr. Dimple ParsonsCalcium [Mass/Vol]9.0 mg/dLNormal8.5-10.1[facility] Comment on above:Performed By: #### REVRT3 #### [facility] [address] [place] [address] Dr. Dimple ParsonsChloride [Moles/Vol]103 mmol/UFaoxxs44-889Jwk [facility] Comment on above:Performed By: #### REVRT3 #### [facility] [address] [place] [address] Dr. Dimple ParsonsCO2 [Moles/Vol]25.5 mmol/SJookhm38.0-32.0[facility] Comment on above:Performed By: #### REVRT3 #### [facility] [address] [place] [address] Dr. Dimple ParsonsCreatinine [Mass/Vol]0.75 mg/dLNormal0.55-1.02The [facility] HospitalComment on above:Performed By: #### REVRT3 #### [facility] [address] [address] [address] Dimple ManzanoGFR-AF SCOTTISH>60Normal>=60The [facility] HospitalComment on above:Performed By: #### REVRT3 #### [facility] [address] [address] [address] Dimple ManzanoGFR-NON AF SCOTTISH>60Normal>=60The [facility] HospitalComment on above:Performed By: #### REVRT3 #### [facility] [address] [address] [address] Dimple ParsonsGlobulin (S) [Mass/Vol]3.8 g/dLNormalThe [facility] HospitalComment on above:Performed By: #### REVRT3 #### [facility] [address] [place] [address] Dr. Dimple ParsonsGlucose [Mass/Vol]107 mg/dLCritically xjvd35-581Bvh [facility] HospitalComment on above:Performed By: #### REVRT3 #### [facility] [address] [place] [address] Dr. Dimple ParsonsPotassium [Moles/Vol]3.4 mmol/LCritically low3.5-5.1The [facility] HospitalComment on above:Performed By: #### REVRT3 #### [facility] [address] [place] [address] Dr. Dimple ParsonsProtein [Mass/Vol]7.8 g/dLNormal6.4-8.2[facility] Comment on above:Performed By: #### REVRT3 #### [facility] [address] [address] [address] Dimple ParsonsSodium [Moles/Vol]140 mmol/BMmjrrd978-167Bea [facility] Comment on above:Performed By: #### REVRT3 #### [facility] [address] [place] [address] Dr. Dimple ParsonsUrea nitrogen [Mass/Vol]7.0 mg/dLNormal7.0-18.0The [facility] HospitalComment on above:Performed By: #### REVRT3 #### [facility] [address] [address] [address] Dimple ParsonsUrea nitrogen/Creatinine [Mass ratio]9.3 mg/mgNoMercy Health St. Charles HospitalComment on above:Performed By: #### REVRT3 #### [facility] [address] [address] [address] Dimple Pulido PELVIS TRANSVAGon [id number] PELVIS TRANSVAGEXAMINATION: US PELVIS TRANSVAG INDICATION: Pain. COMPARISON: Same day CT [...] Electronically authenticated by: LEATHA GALVAN Date: 2022-05-08 08:[address] [place] [address] AUTO DIFFon [id number] #0.1 103/ulNormal0.0-0.1The [facility] HospitalComment on above:Performed By: #### CBC #### [facility] [address] [place] [address] Dr. Dimple ParsonsBasophils/100 WBC (Bld)0.5 %Normal0.2-2.0[facility] Comment on above:Performed By: #### CBC #### [facility] [address] [place] [address] Dr. Dimple Orona #0.2 103/ulNormal0.0-0.7The [facility] HospitalComment on above: Performed By: #### CBC #### [facility] [address] [place] [address] Dr. Dimple Manzanoosinophils/100 WBC (Bld)2.3 %Normal0.9-7.0[facility] Comment on above:Performed By: #### CBC #### [facility] [address] [place] [address] Dr. Dimple Manzanorythrocyte distribution width (RBC) [Ratio]13.2 %Uuqbse34.0-15.0 The [facility] HospitalComment on above:Performed By: #### CBC #### [facility] [address] [place] [address] Dr. Dimple ParsonsHematocrit (Bld) [Volume fraction]40.5 %Byqcqr25.0-48.0The [facility] HospitalComment on above:Performed By: #### CBC #### [facility] [address] [place] [address] Dr. Dimple ParsonsHemoglobin (Bld) [Mass/Vol]13.0 g/rZWxybym78.0-16.0The [facility] HospitalComment on above:Performed By: #### CBC #### [facility] [address] [place] [address] Dr. Dimple Adorno #0.01 10e3/ulNormal0.00-0.03The [facility] HospitalComment on above:Performed By: #### CBC #### [facility] [address] [place] [address] Dr. Dimple Adorno %0.1 %Normal0.0-0.5The [facility] HospitalComment on above: Performed By: #### CBC #### [facility] [address] [place] [address] Dr. Dimple AlejandraMPH #2.6 103/ulNormal1.2-3.8The [facility] HospitalComment on above:Performed By: #### CBC #### [facility] [address] [place] [address] Dr. Dimple Alejandramphocytes/100 WBC (Bld)27.4 %Pzrcfi71.5-60.0The [facility] HospitalComment on above:Performed By: #### CBC #### [facility] [address] [place] [address] Dr. Dimple YepezUAL DIFF REQNONormalThe [facility] HospitalComment on above: Performed By: #### CBC #### [facility] [address] [place] [address] Dr. Dimple Barnes (RBC) [Entitic mass]26.4 pgCritically low26.7-34.0The [facility] HospitalComment on above:Performed By: #### CBC #### [facility] [address] [place] [address] Dr. Dimple Barnes (RBC) [Mass/Vol]32.1 g/gGLdshny33.9-35.2The [facility] HospitalComment on above:Performed By: #### CBC #### [facility] [address] [place] [address] Dr. Dimple Barnes (RBC) [Entitic vol]82.2 lPOhuurq70.0-99.0The [facility] HospitalComment on above:Performed By: #### CBC #### [facility] [address] [place] [address] Dr. Dimple Urias #0.6 103/ulNormal0.3-0.8The [facility] HospitalComment on above:Performed By: #### CBC #### [facility] [address] [place] [address] Dr. Dimple Mayorgaocytes/100 WBC (Bld)6.2 %Normal1.7-12.0[facility] Comment on above:Performed By: #### CBC #### [facility] [address] [place] [address] Dr. Dimple Silver #6.1 103/ulNormal1.4-6.5The [facility] HospitalComment on above:Performed By: #### CBC #### [facility] [address] [place] [address] Dr. Dimple Leonardoutrophils/100 WBC (Bld)63.5 %Rldrwr60.0-75.0The [facility] HospitalComment on above:Performed By: #### CBC #### [facility] [address] [address] [address] Dimple Salinaslet mean volume (Bld) [Entitic vol]9.0 fLCritically low 9.5-13.5The [facility] HospitalComment on above:Performed By: #### CBC #### [facility] [address] [address] [address] Dimple ParsonsPLT346 103/liGjewwd585-772Yqv [facility] HospitalComment on above: Performed By: #### CBC #### [facility] [address] [address] [address] Dimple ParsonsRBC4.93 106/ulNormal4.20-5.40The [facility] HospitalComment on above:Performed By: #### CBC #### [facility] [address] [place] [address] Dr. Dimple ParsonsWBC9.5 103/ulNormal4.0-11.0The [facility] HospitalComment on above: Performed By: #### CBC #### [facility] [address] [place] [address] Dr. Dimple Esquivel T4on 98-89-7364Cqcs T4 [Mass/Vol]1.39 ng/dLNormal0.76-1.46 The [facility] HospitalComment on above:Performed By: #### CBC #### [facility] [address] [address] [address] Dimple ParsonsPROF CHEM 8 (BAS METB)on 82-19-4542Xfwsd gap [Moles/Vol]10.4 mmol/LNormalThe [facility] HospitalComment on above:Performed By: #### DHEASUL #### [facility] [address] [place] [address] Dr. Dimple ParsonsCalcium [Mass/Vol]9.0 mg/dLNormal8.5-10.1[facility] Comment on above:Performed By: #### DHEASUL #### [facility] [address] [place] [address] Dr. Dimple ParsonsChloride [Moles/Vol]101 mmol/YYwsgxt29-736BumOhio State Health System Comment on above:Performed By: #### DHEASUL #### [facility] [address] [place] [address] Dr. Dimple ParsonsCO2 [Moles/Vol]29.3 mmol/CNflsxw57.0-32.0[facility] Comment on above:Performed By: #### DHEASUL #### [facility] [address] [place] [address] Dr. Dimple ParsonsCreatinine [Mass/Vol]0.79 mg/dLNormal0.55-1.02The [facility] HospitalComment on above:Performed By: #### DHEASUL #### [facility] [address] [place] [address] Dr. Dimple ManzanoGFR-AF SCOTTISH>60Normal>=60The [facility] HospitalComment on above:Performed By: #### DHEASUL #### [facility] [address] [place] [address] Dr. Dimple ManzanoGFR-NON AF SCOTTISH>60Normal>=60The [facility] HospitalComment on above:Performed By: #### DHEASUL #### [facility] [address] [place] [address] Dr. Dimple ParsonsGlucose [Mass/Vol]92 mg/cDMwfexo38-991BsbOhio State Health System Comment on above:Performed By: #### DHEASUL #### [facility] [address] [place] [address] Dr. Dimple ParsonsPotassium [Moles/Vol]3.7 mmol/LNormal3.5-5.1[facility] Comment on above:Performed By: #### DHEASUL #### [facility] [address] [place] [address] Dr. Dimple ParsonsSodium [Moles/Vol]137 mmol/XTazdhc513-110Ssq [facility] Comment on above:Performed By: #### DHEASUL #### [facility] [address] [place] [address] Dr. Dimple ParsonsUrea nitrogen [Mass/Vol]11.0 mg/dLNormal7.0-18.0The [facility] HospitalComment on above:Performed By: #### DHEASUL #### [facility] [address] [place] [address] Dr. Dimple Lam nitrogen/Creatinine [Mass ratio]13.9 mg/mgNoMercy Health St. Charles HospitalComment on above:Performed By: #### DHEASUL #### [facility] [address] [place] [address] Dr. Dimple Caldwell 09-18-2641SQG Coag (PPP) [Relative time]1.04 {INR} NormalThe [facility] HospitalComment on above:Performed By: #### PTT, PT #### [facility] [address] [place] [address] Dr. Dimple Raphael GUIDELINESSEE BELOWACMC Healthcare System GlenbeighComment on above:Result Comment: DESIRED INR: 2.0 - 3.0 CONDITIONS NOT LISTED BELOW 2.5 - 3.5 FOR PROSTHETIC HEART VALVE REPLACEMENT 2.5 - 3.5 RECURRENT THROMBOSIS Performed By: #### PTT, PT #### [facility] [address] [place] [address] Dr. Dimple Power Coag (PPP) [Time]11.2 sNormal9.0-11.6[facility] Comment on above:Performed By: #### PTT, PT #### [facility] [address] [place] [address] Dr. Dimple Zurita 92-11-3709lAEB Coag (Bld) [Time]35.1 cZrwqwg66.3-36.2The [facility] HospitalComment on above:Performed By: #### PTT, PT #### [facility] [address] [place] [address] Dr. Dimple Moreau 20-35-0264CHO2.528 uIU/mLNormal0.358-3.740The [facility] HospitalComment on above:Performed By: #### TSH #### [facility] [address] [place] [address] Dr. Dimple Collins ACOG PANEL 2: 30 to 65on 12-26-2021..NormalThe [facility] on above:Result Comment: Performed at: WBPerformed By: #### CBC #### [facility] [address] [place] [address] Dr. Dimple Rosen Gdln ACOG Habaedh99-21GduqyhPppMercy Health St. Charles HospitalComascension borgess allegan hospital on above:Performed By: #### CBC #### [facility] [address] [place] [address] Dr. Dimple ParsonsDIAGNOSIS:CommentUniversity Hospitals Ahuja Medical Center on above: Result Comment: NEGATIVE FOR INTRAEPITHELIAL LESION OR MALIGNANCY. Performed at: WBPerformed By: #### CBC #### [facility] [address] [place] [address] Dr. Dimple ParsonsHPV AptimaNegativeNormalNegativeProtestant Deaconess Hospital on above:Result Comment: This nucleic acid amplification test detects fourteen high-risk HPV types (16,18,31,33,35,39,45,51,52,56,58,59,66,68) without differentiation. Performed at: =GPerformed By: #### CBC #### [facility] [address] [place] [address] Dr. Dimple ParsonsMethodology:CommentUniversity Hospitals Ahuja Medical Center on above: Result Comment: This liquid based ThinPrep(R) pap test was screened with the use of an image guided system. Performed at: WBPerformed By: #### CBC #### [facility] [address] [place] [address] Dr. Dimple ParsonsNote:CommentUniversity Hospitals Ahuja Medical Center on above:Result Comment: The Pap smear is a screening test designed to aid in the detection of premalignant and malignant conditions of the uterine cervix. It is not a diagnostic procedure and should not be used as the sole means of detecting cervical cancer. Both false-positive and false-negative reports do occur. . Performed at: WBPerformed By: #### CBC #### [facility] [address] [place] [address] Dr. Dimple ParsonsPerformed by:CommentNormalThe Munira HospitalComment on above: Result Comment: Essie Herclues, Service Dog Trainer (ASCP) Performed at: WBPerformed By: #### CBC #### [facility] [id number] Dimple Chavez adequacy:CommentACMC Healthcare System GlenbeighComment on above:Result Comment: Satisfactory for evaluation. No endocervical component is identified. Performed at: WBPerformed By: #### CBC #### [facility] [address], [place] [address] Dr. Dimple Nash Quick Testingon 88-57-7060YxbkwaAiobkckfRqkui SecretSales Other Vital Signs Date TimeVital SignValuePerforming CovsjvrgyTpuniyvw03-38-1655 10:04-0400 Diastolic blood emfribqu57 mm[Hg]Nato Hawkins MD Work Phone: [facility]09-09-2025 10:04-0400Systolic blood jzpqdmip637 mm[Hg]Nato Hawkins MD Work Phone: [facility]07-29-2025 13:09-0400Body mass index (BMI) [Ratio]30.92 kg/e8Hbjbd Asuncion DO Work Phone: [facility] HospitalCuvcaglbal04-34-2608 13:09-0400Body vnfenl38.75 kgCorey Asuncion DO Work Phone: [facility] HospitalMqsrpeghft52-53-5492 13:09-0400Diastolic blood tmeywqyd28 mm[Hg]Brent Asuncion DO Work Phone: [facility] HospitalIioyzhrwff99-18-7981 13:09-0400Systolic blood mm[Hg]Brent Asuncion DO Work Phone: [facility] HospitalBtfrqhgnlq92-58-9974 13:46-0400Body dwibgf659.26 cmSaniya Mays APRN Work Phone: [facility]06-25-2025 13:46-0400 Body mass index (BMI) [Ratio]31.3 kg/a5AkoqethrSaniya Mays TECHNOLOGY INSTRUCTOR Work Phone: [facility]06-25-2025 13:46-0400 Body ccsijfldxsg65.8 [degF]Saniya Mays TECHNOLOGY INSTRUCTOR Work Phone: [facility]06-25-2025 13:46-0400 Body mesgck16.16 kgSaniya Mays TECHNOLOGY INSTRUCTOR Work Phone: [facility]06-25-2025 13:46-0400 Diastolic blood wekhjidh13 mm[Hg]Saniya Mays TECHNOLOGY INSTRUCTOR Work Phone: [facility]06-25-2025 13:46-0400 Systolic blood mm[Hg]aSniya Mays TECHNOLOGY INSTRUCTOR Work Phone: [facility]06-03-2025 13:38-0400 Body mass index (BMI) [Ratio]30.68 kg/m2Yesica Tolbertey PA Work Phone: [facility] HospitalFbhpvfzfvx71-58-3420 13:38-0400Body nugqdu50.98 kgAmy Xu PA Work Phone: [facility] HospitalExrwzkdfqv04-31-3281 13:38-0400Diastolic blood qglmepwu35 mm[Hg]Yesica Tolbertey PA Work Phone: [facility] HospitalMetjkhispt87-77-6781 13:38-0400Systolic blood mm[Hg]Yesica Mineral PA Work Phone: [facility] HospitalDohberowbo45-30-0330 09:36-0400Body mass index (BMI) [Ratio]30.71 kg/h3Fedeb Asuncion DO Work Phone: [facility] HospitalVerykpnhsz11-87-6998 09:36-0400Body .07 kgCorey Asuncion DO Work Phone: [facility] HospitalBwwlkzckwr67-96-1270 09:36-0400Diastolic blood vjyxiuxh13 mm[Hg]Brent Asuncion DO Work Phone: [facility] HospitalFtkwgkzvfn85-83-9331 09:36-0400Systolic blood wtbqocci250 mm[Hg]Brent Roland DO Work Phone: [facility] HospitalAmqddkauha25-92-3759 10:02-0400Body mass index (BMI) [Ratio]31.13 kg/u9Vlveh Asuncion DO Work Phone: [facility] HospitalTjahnrifrz27-83-7410 10:02-0400Body xiwild40.62 kgBarney Children'S Medical Centermacrina Anguloo DO Work Phone: [facility] HospitalJpllqrqwyb48-69-0076 10:02-0400Diastolic blood itvzcniy30 mm[Hg]Brentmacrina Roland DO Work Phone: [facility] HospitalQdrejizwvy89-81-0939 10:02-0400Systolic blood cnnkqaly106 mm[Hg]Brentmacrina AnguloLehigh Technologies Work Phone: [facility] HospitalMdmzfljwnu67-03-3720 10:18-0500Body rvubit563.[address] cmSt[address] [facility]03-05-2025 10:18-0500Body mass index (BMI) [Ratio]29.9 kg/l2WkcgacuxmSt. Mary'S Medical Center03-05-2025 10:18-0500Body fbanrqstlwv57.2 [degF][facility]03-05-2025 10:18-0500Body .07 kgSt. [facility]03-05-2025 10:18-0500Diastolic blood mm[Hg][facility]03-05-2025 10:18-0500 Heart bmom220 /minSt. Mary'S Medical Center03-05-2025 10:18-0295VxI2% (BldA) [Mass fraction]98 %[facility]03-05-2025 10:18-0500 Systolic blood tadnoumt479 mm[Hg][facility]01-02-2025 11:31-0500Body irauap871.26 cmSt. [facility]01-02-2025 11:31-0500Body mass index (BMI) [Ratio]31.3 kg/o3RiigpjqikSt. Mary'S Medical Center01-02-2025 11:31-0500Body eoulqzrlleo55.5 [degF][facility]01-02-2025 11:31-0500Body ggaiwo01.27 kgSt[facility] 03-15-2024 11:31-0500Diastolic blood gtjnugmw96 mm[Hg][facility]01-02-2025 11:31-0500Heart rate92 /minSt. Mary'S Medical Center 03-15-2024 11:31-4498JqU9% (BldA) [Mass fraction]97 %[facility]01-02-2025 11:31-0500Systolic blood wolnrpdr227 mm[Hg][facility]12-04-2024 13:04-0500Body wiuhgv729.26 cmSt. [facility]12-04-2024 13:04-0500Body mass index (BMI) [Ratio]31.8 kg/m2 [facility]12-04-2024 13:04-0500Body wusipghftkx81.3 [degF][facility]12-04-2024 13:04-0500Body ubozze19.[address] [facility]12-04-2024 13:04-0500Diastolic blood nmgmnriu22 mm[Hg][facility]12-04-2024 13:04-0500Heart zhtb705 /min [facility]12-04-2024 13:04-0901VkL4% (BldA) [Mass fraction]98 %[facility]12-04-2024 13:04-0500Systolic blood ftlairll583 mm[Hg][facility]09-20-2024 10:38-0400 Body abgnyg491.26 cmSt. [facility]09-20-2024 10:38-0400Body mass index (BMI) [Ratio]31.3 kg/v7ShxjogrpnSt. Mary'S Medical Center09-20-2024 10:38-0400Body tvaldx95.16 kgSt. [facility]09-20-2024 10:38-0400Diastolic blood ynyfezdq48 mm[Hg][facility] 12-02-2023 10:38-0400Heart rate81 /minSt. [facility]'S Medical [facility] 12-02-2023 10:38-0400Systolic blood zxqjedeb361 mm[Hg][facility]07-29-2024 11:23-0400Body .26 cmSt. [facility]07-29-2024 11:23-0400Body mass index (BMI) [Ratio]31.1 kg/g4PhsgurjhtSt. Mary'S Medical Center07-29-2024 11:23-0400Body .84 kgSt. [facility] Center07-29-2024 11:23-0400Diastolic blood fjmxrfux58 mm[Hg] [facility]07-29-2024 11:23-0400Heart rate98 /[facility]07-29-2024 11:23-4464VfR7% (BldA) [Mass fraction]98 % [facility]07-29-2024 11:23-0400Systolic blood ndddakiu187 mm[Hg][facility]07-22-2024 14:50-0400Body yncnjz543.[address] [facility]07-22-2024 14:50-0400Body mass index (BMI) [Ratio]31.3 kg/s9AyslcpdvvSt. Mary'S Medical Center07-22-2024 14:50-0400Body ssmjap30.16 [facility]07-22-2024 14:50-0400Diastolic blood ujjsuusr75 mm[Hg][facility]07-22-2024 14:50-0400 Heart rate85 /[facility]07-22-2024 14:50-0400Systolic blood jxvmxgqy814 mm[Hg][facility]06-26-2024 13:03-0400 Body yqongc570.26 cmSt. [facility]06-26-2024 13:03-0400Body mass index (BMI) [Ratio]31.1 kg/p0NjzhigfdbSt. Mary'S Medical Center06-26-2024 13:03-0400Body urxadr59.7 kgSt. [facility]06-26-2024 13:03-0400Diastolic blood luqdrevu43 mm[Hg][facility] 09-07-2023 13:03-0400Heart rate61 /[facility] 09-07-2023 13:03-8488UuX0% (BldA) [Mass fraction]97 %[facility]06-26-2024 13:03-0400Systolic blood yppxkwhx722 mm[Hg][facility]04-05-2024 14:03-0400Body amroxo012.26 cmSt. [facility]04-05-2024 14:03-0400Body mass index (BMI) [Ratio]31.6 kg/m2 [facility]04-05-2024 14:03-0400Body ywlurj71.[address] [facility]04-05-2024 14:03-0400Diastolic blood mm[Hg][facility]04-05-2024 14:03-0400Heart udla015 /min [facility]04-05-2024 14:03-0400Systolic blood gzoejzbi749 mm[Hg][facility]01-22-2024 14:15-0500Body urpolo771.[address] [facility]01-22-2024 14:15-0500 Body mass index (BMI) [Ratio]30.42 kg/n7YjruzvSurya Hodges Other [employer] Other 01-22-2024 14:15-0500Body eqncfb64.[address] [facility]01-22-2024 14:15-0500 Diastolic blood nlvzxkra64 mm[Hg]Surya Hodges Other [facility]01-22-2024 14:15-0500 Systolic blood gouamthl524 mm[Hg]Surya Hodges Other [facility]10-06-2023 08:30-0400 Body cpbdre671.26 cmSurya Hodges Other [employer] Other [id number] 08:30-0400Body mass index (BMI) [Ratio]29.5 kg/e6CkoxxuSurya Hodges Other [facility] [employer] Other 10-06-2023 08:30-0400Body fbdomr77.63 kgSurya Hodges Other [place] [employer] Other 10-06-2023 08:30-0400Diastolic blood zorffpxa39 mm[Hg] Surya Hodges Other [place] [employer] Other 10-06-2023 08:30-0400Systolic blood ztvbbkuj856 mm[Hg] Surya Hodges Other [place] [employer] Other 09-20-2023 12:00-0400Body qcmwwqqlukq61.6 [degF]MD Surya Hodges Work Phone: [phone]09-20-2023 12:00-0400 Diastolic blood qodbtecp49 mm[Hg]MD Surya Hodges Work Phone: [phone]09-20-2023 12:00-0400 Heart rate89 /minMD Surya Hodges Work Phone: [phone]09-20-2023 12:00-0400 Respiratory rate20 /minMD Surya Hodges Work Phone: [phone]09-20-2023 12:00-0400 SaO2% (BldA) [Mass fraction]99 %MD Surya Hodges Work Phone: [phone]09-20-2023 12:00-0400 Systolic blood dsyktvmy986 mm[Hg]MD Surya Hodges Work Phone: [phone]09-20-2023 05:51-0400 Body cgdomx71.4 kgMD Surya Hodges Work Phone: [phone]09-19-2023 16:30-0400 Body ckuwkb600.26 cmMD Surya Hodges Work Phone: [phone]09-18-2023 11:15-0400 Body rkhehn510.26 cmSurya Tracie Other [employer] Other 09-18-2023 11:15-0400Body mass index (BMI) [Ratio] 28.79 kg/e9Xwpczx Braun Other [employer] Other 09-18-2023 11:15-0400Body ujefdhoodxx41.1 [degF]Surya Hodges Other [employer] Other 09-18-2023 11:15-0400Body rjukdw13.45 kgSurya Tracie Other [employer] Other 09-18-2023 11:15-0400Diastolic blood ezqajfed58 mm[Hg] Surya Hodges Other [employer] Other 09-18-2023 11:15-4807TwG0% (BldA) [Mass fraction]98 % Surya Hodges Other [employer] Other 09-18-2023 11:15-0400Systolic blood xnfimimg279 mm[Hg] Surya Hodges Other [employer] Other 09-07-2023 08:30-0400Body hnipqd610.26 cmSurya Hodges Other [employer] Other 09-07-2023 08:30-0400Body mass index (BMI) [Ratio] 28.59 kg/r4QlkwpoSurya Hodges Other [employer] Other 09-07-2023 08:30-0400Body .82 kgSurya Hodges Other [employer] Other 09-07-2023 08:30-0400Diastolic blood gextjctf31 mm[Hg] Surya Hodges Other [employer] Other 09-07-2023 08:30-0400Systolic blood rogawkvs177 mm[Hg] Surya Hodges Other [employer] Other 08-25-2023 10:00-0400Body ploeef581.26 cmYarimike Hodges Other [employer] Other 08-25-2023 10:00-0400Body mass index (BMI) [Ratio] 29.68 kg/d5PhkenbSurya Hodges Other [employer] Other 08-25-2023 10:00-0400Body hchqtu85.17 kgSurya Hodges Other [employer] Other 08-25-2023 10:00-0400Diastolic blood goratzxk40 mm[Hg] Surya Hodges Other [employer] Other 08-25-2023 10:00-0400Systolic blood mm[Hg] Surya Hodges Other [employer] Other 08-07-2023 08:30-0400Body ytkhla559.26 cmSurya Hodges Other [employer] Other 08-07-2023 08:30-0400Body mass index (BMI) [Ratio] 28.94 kg/l5JbjtafSurya Hodges Other [employer] Other 08-07-2023 08:30-0400Body aqbjbt05.91 kgSurya Hodges Other [employer] Other 08-07-2023 08:30-0400Diastolic blood zoijxkrc57 mm[Hg] Surya Hodges Other [employer] Other 08-07-2023 08:30-0400Systolic blood dlrsanbu145 mm[Hg] Surya Hodges Other [employer] Other 06-29-2023 10:15-0400Body yxyjtr240.26 cmSurya Hodges Other [employer] Other 06-29-2023 10:15-0400Body mass index (BMI) [Ratio] 29.12 kg/j1WoikceSurya Hodges Other [employer] Other 06-29-2023 10:15-0400Body .45 kgSurya Hodges Other [employer] Other 06-29-2023 10:15-0400Diastolic blood fdlehjis19 mm[Hg] Surya Hodges Other [employer] Other 06-29-2023 10:15-0400Respiratory rate12 /minSurya Hodges Other [employer] Other 06-29-2023 10:15-0400Systolic blood wwfidnou081 mm[Hg] Surya Hodges Other [employer] Other 03-10-2023 10:01-0500Blood Pressure LocationPatrick LUCY [facility]03-10-2023 10:01-0500Diastolic blood mm[Hg]Kamaljit AYALA [facility]03-10-2023 10:01-0500Heart rate85 /minKamaljit YAALA [facility]03-10-2023 10:01-0500Systolic blood anuvijpu122 mm[Hg]Kamaljit AYALA [facility]11-02-2022 08:36-0400Blood Pressure LocationJENNIFER MANDEEP [facility]11-02-2022 08:36-0400Diastolic blood mynayssb09 mm[Hg]SANIYA MANDEEP [facility]11-02-2022 08:36-0400Heart rate91 /minJENNIFER MANDEEP [facility]11-02-2022 08:36-0400Respiratory rate16 /minJENNIFER MANDEEP [facility]11-02-2022 08:36-0400Systolic blood yejfvdzo069 mm[Hg]SANIYA MANDEEP [facility]01-26-2022 15:30-0500Body upzsra855.26 Marika Quezada Other [employer] Other 01-26-2022 15:30-0500Body mass index (BMI) [Ratio] 29.97 kg/r6QbwhgvTreasure Quezada Other [employer] Other 01-26-2022 15:30-0500Body uhdtewoywzd02.6 [degF]Treasure Quezada Other noAmerican Well [employer] Other 01-26-2022 15:30-0500Body wypofs61.08 kgTreasure Quezada Other [facility] [employer] Other 01-26-2022 15:30-0500Respiratory rate18 /minTreasure Quezada Other [facility] [employer] Other 01-26-2022 15:30-7426KjD5% (BldA) [Mass fraction]98 % Treasure Quezada Other [facility] [employer] Other Encounters Encounter DateEncounter TypeCare ProviderFacilityStart: 91-87-7378lczbfocmstozzie AYALAFacility:[place]vueStart: 01-07-2025 End: 43-93-8698nvxflvlklmHIFVT DEWITT-FOYFacility:[facility] Start: 31-13-5015Xknfhhadt for other preprocedural examinationJENNIFER ROHRBACHERCSt. Francis HospitalStart: 12-31-2024 End: 44-88-5984vtqdthuxhdSSZCNIKR A ROHRBACHERFacility:[facility] Start: 88-74-7568lkrdkzyzptRnvvkyc R WATERSFacility:[place]vueStart: 12-26-2024 Non-patient / Non-visitCorey [facility] Work Phone: Start: 12-26-2024 End: 81-03-2284xtlrrnutstNddeymbs Rohrbacher TECHNOLOGY INSTRUCTOR Work Phone: [facility] Work Phone: Start: 12-26-2024 End: 02-57-7699Hynwwebt ReferredNato Hawkins MD-LAB Path Spec Mikana HospStart: 12-13-2024 End: 21-49-5401zmshggsjboElizaer R WATERSFacility:CD:[id number]: 12-10-2024 ambulatoryPaanuj AYALAFacility:CD:[id number]: 11-21-2024 End: 54-24-6251qfxfquodbqAwdwhPriyanka Hawkins MD Work Phone: UrologyStart: 11-20-2024 End: 97-26-8151Liprqmp encounter procedureNato Hawkins MD Work Phone: UrologyComment on above:Flank pain (Primary Dx); Ureteral stricture; H/O: hysterectomyStart: 11-20-2024 End: 12-60-8580mdepbvitmiRVMSHX E BRAUNFacility:[facility] Hospitaltart: 55-49-6733fxrqlyvjtbUgndmeg R WATERSFacility:CD:[id number]: 11-15-2024 End: 97-23-9346xydbutpwqbZnrpfbp R WATERSFacility:CD:[id number]: 11-08-2024 Non-patient / Non-visitKamaljit Ayala MD-[facility] Work Phone: Start: 10-29-2024 End: 65-76-7917Zdonomw encounter Kia Ayala MD-[facility] Work Phone: Start: 10-29-2024 End: 89-67-1782mlrhezskolMfzhascy Rohrbacher TECHNOLOGY INSTRUCTOR Work Phone: [facility] Work Phone: Start: 10-09-2024 End: 41-82-4581Fditrl flowsheetCorey Asuncion DO Work Phone: [facility] OBGYNStart: 10-09-2024 End: 04-66-9793Vvrwjr flowsheetCorey Asuncion DO Work Phone: [facility] OBGYNStart: 10-09-2024 End: 87-19-6154Ilhwhukwd Result EncounterCorey Asuncion DO Work Phone: NOKG External Department UnsolicitedStart: 10-09-2024 End: 85-93-3101Zuwwmju encounter procedureCorey Asuncion DO Work Phone: noms HealthcareStart: 10-09-2024 End: 60-97-2677Wmohomfy preventive med est patient 18-39 yrsCorey Asuncion DO Work Phone: [facility] OBGYNComment on above:Well woman exam with routine gynecological exam; Insulin resistance; Encounter for weight loss counselingStart: 37-45-6265Udc-patient / Non-visit Brent Roland-[facility] Work Phone: Start: 10-09-2024 End: 16-37-4361rhufwasitgEDGTY FAZIONot AvailableStart: 10-02-2024 End: 89-96-1480tphubaghhgEfhtzdb R WATERSFacility:[place]Start: 10-02-2024 End: 67-32-4645Gvbqeev encounter procedureKamaljit AYALA [facility] Start: 09-05-2024 End: 43-62-1386fahojkheibCzslqzgc Rohrbacher APRN Work Phone: [facility] Work Phone: Start: 09-05-2024 End: 88-55-8292Ujmpiti encounter procedureSaniya Mays APRN [facility] Work Phone: Start: 08-64-9969Djw-patient / Non-visitKamaljit Ayala MD-[facility] Work Phone: Start: 08-14-2024 End: 12-84-3482Woxqop Ashley OSWALD Work Phone: [facility]CP OBStart: 08-14-2024 End: 24-35-8281Darpsw Ashley OSWALD Work Phone: [facility] OBStart: 08-14-2024 End: 61-27-9197Tvsogs follow up visit related to original pxAmy Mineral PA Work Phone: [facility] OBComment on above:Acute postoperative pain; Postoperative follow-up; Other insomniaStart: 08-14-2024 End: 57-58-8770tdbdyjikxfLDJ XUBabatunde AvailableStart: 03-11-9527Npc-patient / Non-visitCorey [employer]) Work Phone: Start: 08-02-2024 End: 37-87-3672vvxtzwuejdDqcexyb R WATERSFacility:CD:[id number]: 07-23-2024 End: 88-63-9132Qddphf flowsheetCorey Asuncion [employer] Work Phone: [facility] OBStart: 07-23-2024 End: 19-48-8903Ldorlj flowsheetCorey Asuncion DO Work Phone: [facility] OBStart: 07-23-2024 End: 11-78-1269Ssomxcums Result EncounterCorey Asuncion DO Work Phone: [facility] External Department UnsolicitedStart: 07-23-2024 Non-patient / Non-visitCorey [employer] (formerly [employer]) Work Phone: Start: 07-23-2024 End: 67-49-2767bkfakipxmiPQKLN FAZIONot AvailableStart: 07-23-2024 End: 24-15-7798Ltqrak outpatient visit 15 minutesCorey Asuncion DO Work Phone: [facility] OBComment on above:Pre-op evaluation; Pelvic pain in female; Pain of ovary; H/O: hysterectomyStart: 07-23-2024 End: 94-07-3975Cgowuaknoydql examination doneCorey Asuncion DO Work Phone: [facility] HealthcareStart: 07-10-2024 End: 79-60-2542Uwheex flowsheetCorey Asuncion DO Work Phone: [facility] BCP OBStart: 07-10-2024 End: 48-68-0124Eocfek flowsheetCorey Asuncion DO Work Phone: [facility] BCP OBStart: 07-10-2024 End: 27-81-5671Hklftuuj Result EncounterCorey Asuncion DO Work Phone: [facility] External Department UnsolicitedStart: 07-10-2024 End: 73-38-6699Tizrgy outpatient visit 15 minutesCorey Asuncion DO Work Phone: [facility] OBComment on above:Pelvic painStart: 07-10-2024 End: 87-59-2097runbjqzbjbDFGGF FAZIONot AvailableStart: 07-03-2024 End: 15-57-5710Vmtbvuywx Result EncounterCorey Asuncion DO Work Phone: [facility] External Department UnsolicitedStart: 07-03-2024 End: 52-29-3108Qvewbmzsb Result EncounterCorey Asuncion DO Work Phone: noMS External Department UnsolicitedStart: 05-16-2024 End: 07-26-9063zzaeeinyzwDhmmxuzgjPremier Health [facility] Work Phone: Start: 05-16-2024 End: 88-91-9760Blsvhlu encounter procedureUn[facility] Work Phone: Start: 03-15-2024 End: 61-50-8185dcsucvjeiiWnqbrlscgPremier Health [facility] Work Phone: Start: 03-15-2024 End: 63-57-0509Armvktl encounter procedureFirinova women's hospital Physician GroupReg[facility] Work Phone: Start: 02-15-2024 End: 29-17-6700Ldwbzzi encounter procedureFirinova women's hospital Physician GroupReg[facility] Work Phone: Start: 12-02-2023 End: 37-98-6683jrdypxbsstWvqkjmkxgPremier Health [facility] Work Phone: Start: 12-02-2023 End: 22-61-1673Ufisbjf encounter procedureFirinova women's hospital [facility]ician [facility] Work Phone: Start: 10-10-2023 End: 97-26-9326Uxbquwg encounter procedureFirnavarros Physician Group-[facility] Work Phone: Start: 08-51-8534Cqczvaz encounter statusLakeHealth TriPoint Medical Centertart: 10-03-2023 End: 44-22-3888hkzilzwtyzAoqpuxtczPremier Health [facility] Work Phone: Start: 10-03-2023 End: 86-47-4950Bkmtksaxw for general adult medical examination without abnormal findingsLakeHealth TriPoint Medical Centertart: 10-03-2023 End: 32-00-0402Vpxgphw encounter procedureUnc Health [facility] Work Phone: Start: 09-07-2023 End: 30-73-7153pcdkozolfbYwtwmnaurPremier Health [facility] Work Phone: Start: 09-07-2023 End: 75-22-2115Nmcfmqk encounter procedureUnc Health [facility] Work Phone: Start: 88-51-5080Xtu-patient / Non-visitFirinova women's hospital Physician [facility] Ne Work Phone: Start: 06-17-2023 End: 39-93-8872rwydtszzbvBedddyyajPremier Health [facility] Work Phone: Start: 06-17-2023 End: 25-40-8478Fbwwfcy encounter procedureFirinova women's hospital Physician [facility] Work Phone: Start: 05-04-2023 End: 87-59-8866nriwssdcczGkibpchaePremier Health [facility] Work Phone: Start: 05-04-2023 End: 80-90-4336Ommegzv encounter procedureUnc Health [facility] Work Phone: Start: 82-22-4007Hdl-patient / Non-visitFirnavarros Physician Group-[facility] Professional [employer] Work Phone: Start: 04-21-2023 End: 05-87-4162Rvlqvh digital e/m svc est pt <7 d 11-20 minutesYesica OSWALD Work Phone: [facility] OBComment on above:Insulin resistance; Metabolic syndrome; Hormone imbalanceStart: 04-04-2023 End: 00-22-2191vfbfmdjegcLrqkmx Braun Other [employer] Other Start: 35-67-7239Dcihjb outpatient visit 15 minutes Surya Beasley [facility] ClinicStart: 04-04-2023 End: 18-49-2792Xyntusu encounter procedureKaren Physician Group-Start: 03-11-2023 End: 92-44-0148jwnegkwyavSwfghf Braun Other [employer] ??? Other Start: 89-29-3578Nkxmndwpx encounterMarmike Ruiz [facility] ClinicStart: 01-78-6912Rpcmhxc encounter procedureKaren Physician Group-Start: 01-12-2023 End: 23-05-5848vniqqruymkRpefod Braun Other [employer] Other Start: 48-40-1426Ukkhjlvzb encounterMarmike Ruiz Ramos [facility] ClinicStart: 12-17-2022 End: 67-94-0945razqmngrjeUetyxa Braun Other [employer] Other Start: 81-86-0338Yhawew outpatient visit 15 minutes Surya Beasley [facility] ClinicStart: 11-30-2022 End: 97-06-5352Sbvdjhusnb and management of inpatientMD Surya Hodges Work Phone: [facility] Work Phone: Start: 11-30-2022 End: 70-26-3354grumdazlrzf encounterMD Surya Hodges Work Phone: [facility] Work Phone: Start: 11-30-2022 End: 18-60-5504grgykvhqxhJonjhd Braun Other noAmerican Well [employer] Other Start: 29-25-9656Jfvtpuzki encounterMarcililly [facility] ClinicStart: 11-29-2022 End: 76-61-5733vnatamspdaMlmqhp Hodges Other [facility] [employer] Other Start: 75-28-4787Ltrakv outpatient visit 15 minutes Surya HodgesJACKYRafat [facility] ClinicStart: 41-46-3749Skxbkrwnt encounterMarcililly [facility] ClinicStart: 11-18-2022 End: 43-50-8925xdduxhatdeAapkzy Tracie Other [facility] [employer] Other Start: 75-31-3474Pfbsmi outpatient visit 10 minutes [facility] ClinicStart[facility] 11-05-2022 End: 71-61-8371zeixrkinihEeibym Tracie Other [facility] [employer] Other Start: 96-50-5767Fzbqni outpatient visit 10 minutes [facility] ClinicStart: 11-04-2022 End: 28-27-9953gdjfzhluwbFwagpl Tracie Other [employer] Other Start: 79-88-7141Nzlyktnir encounterMarciillly [facility] ClinicStart: 10-18-2022 End: 76-42-8161pgstfybtfpZxrpcx Tracie Other [employer] Other Start: 12-69-0548Excdlx outpatient visit 10 minutes [facility] ClinicStart: 09-17-2022 End: 50-58-7062rpybejyrcaKsrfmx Tracie Other [employer] Other Start: 33-42-2955Fnhnuxvfo encounterMarmike HodgesTuscarawas Hospitaltart: 09-09-2022 End: 52-00-9505sreblqatqdVffhal Hodges Other [employer] Other Start: 38-19-8096Rbbrxm outpatient visit 15 minutes Surya TracieTuscarawas Hospitaltart: 25-15-6012Modnvkvsa for other preprocedural examinationDR BRENT ASUNCION .[facility]2022 End: 97-81-5814ynbsyvqbmiLB BRENT ASUNCION .Facility:P0Fllkb: 06-14-2022 End: 71-12-4286smciwptuwtNQ BRENT ASUNCION .Facility:I7Zmkgy: 06-14-2022 End: 68-85-8791Musiinvmg for other preprocedural examinationDR BRENT ASUNCION . Facility:X1Yypib: 06-04-2022 End: 66-39-0583rqquimbnubWN BRENT ASUNCION .Facility:X9Qsacz: 05-25-2022 End: 76-18-8052cyuehzgogiGK BRENT ASUNCION .Facility:Z2Ddelp: 05-21-2022 End: 48-46-1667Cbhzktv encounter procedurePaanuj AYALA [facility] start: 05-20-2022 End: 96-68-2606hfkqihkghiKH SURYA HODGESFacility:Y6Ashog: 05-08-2022 End: 60-86-6077cimqgcrlokYZ SURYA HODGESFacility:Z0Fyugt: 03-23-2022 End: 95-68-1305tmhgscztpfDEXAYSOS CULLENFacility:Q6Njlur: 03-16-2022 End: 04-50-9835rmxjufzitrFbdzcz Tracie Other noAuthentium Other Start: 86-43-9743Vbyfdk outpatient visit 15 minutes Surya José LuisG [facility] ClinicStart: 88-99-2624Jgoeyaggulajk examination normalMarmike Hodges Other ICEdot SecretSales Other Start: 80-22-6400otsbqdclhpAR SURYA Dejesus TRACIE Facility:T2Tipic: 02-21-2022 End: 28-51-4960bfjctlcsvsUW Surya Hodges Work Phone: [facility] Work Phone: Start: 02-21-2022 End: 64-36-0348Neuclxs encounter procedureMD Surya Hodges Work Phone: [facility] Miguel Start: 01-13-2022 End: 28-52-6553udtgkdpxjgZP BRENT ASUNCION .Facility:B4Qmabo: 01-13-2022 End: 93-59-3741Sgrfxfr encounter procedureJENNIFER E MANDEEP [facility] start: 12-21-2021 End: 69-39-7667uenplzhftrFI BRENT ASUNCION .Facility:A5Fvlzp: 04-08-2021(URG) Urgent Care VisitPamela PilarFPG Urgent Care ClydeStart: 04-08-2021 End: 79-90-3732dfynnfwytiPhemzj Pilar Other [facility] [employer] Other Start: 46-98-0443Bwk-procedure evaluation checkSurya Hodges Other [facility] SecretSales Other Procedures DateProcedureProcedure DetailPerforming ClinicianStart: 81-43-3334Ndlklwcd screenJENNIFER ROHRBACHERComment on above:Order Comment: Specimen Type: BLOOD SPECIMENOrdering Facility: [facility] Address:[address] [place], [place] [address]Performed By: #### TSCR ####[facility] MAIN LABCLIA [id number] [place] [address] [place] AMERICAStart: 92-93-2367Ilomspecarj pyelogramJennifer Rohrbkylah FLORENTINON Work Phone: Start: 99-65-7067JGU,APTIMA HPV,AGE GDLNCorey Asuncion DO Work Phone: Start: 28-64-6156Pzshvnqcmcs removal of ureteric stent Kamaljit AYALA Start: 94-49-5260GFM CBC WITH AUTO DIFFCorey Asuncion DO Work Phone: Start: 80-60-9622DUC 12-LEADCorey Asuncion DO Work Phone: Start: 12-70-8509HQSQERHLA VAGINITIS (HTRX)Brent Asuncion DO Work Phone: Start: 89-38-9653Pzcnu dip stick/tablet rgnt non-auto w/o micrscpCorey Asuncion DO Work Phone: Start: 95-07-6318ME PELVIS W/ TRANSVAGINALCorey Asuncion DO Work Phone: Start: 95-67-1236Jpmkhvcmmmj observation [Identifier] in Cervix by Cyto stainCorey Asuncion DO Work Phone: Start: 96-64-8653Ekny cerv/vag auto thin layer prep mnl screenCorey Asuncion DO Work Phone: Start: 03-14-3331Kvkgbkjvykdsmij of liverMD Surya Hodges Work Phone: Start: 61-30-9554Lcfwishjdvo Panel (PCR)MD Surya Hodges Work Phone: Start: 84-53-8017Nvkiq chest X-rayMD Surya Hodges Work Phone: Start: 30-79-8501Z-ray of left ankleMD Surya Hodges Work Phone: Start: 49-82-4931Vptydpzxb of urethraPaanuj AYALA appendectomyJENNIFER MANDEEP CholecystectomyJENNIFER MANDEEP Depression screeningMarcia Tracie Other H/O: hysterectomyH/O: hysterectomyCorey Asuncion DO Work Phone: H/O: hysterectomyH/O: hysterectomyMolly Jocy STILES Work Phone: HysterectomyJENNIFER MANDEEP HysterectomyMarcia Tracie Other Insertion of intrauterine contraceptive deviceYaricia Tracie Other MRI guided ablation of uterine fibroidJENNIFER MANDEEP End: 32-72-1760Alukyca of intrauterine deviceYaricia Tracie Other Plan of Treatment DateCare ActivityDetailAuthorStart: 57-20-2307Cufdpzkiu for malignant neoplasm of cervixNOMS HealthcareStart: 02-05-2025 End: 36-25-1174Jlwusuh encounter joemkzovf37/25/2025 9:00 AM EST Office Visit Urology [address] [place] [address] Nato Hawkins MD [address] [place] [address] Cysto Stent RemovalUrologyComment on above:Cysto Stent RemovalStart: 01-07-2025 End: 57-69-0957Rdtsomuqq to same day surgery lwcuqd4501/07/2025 8:25 AM EDT - 01/07/2025 12:48 PM EDT Surgery Admitting [address] [place] [id number] Nato Hawkins MD [address] [place] [address] XI ROBOTIC LAPAROSCOPIC REIMPLANT URETER BLADDER W/ PSOAS HITCH OR BLADDER FLAPAdmittingComment on above:XI ROBOTIC LAPAROSCOPIC REIMPLANT URETER BLADDER W/ PSOAS HITCH OR BLADDER FLAPStart: 49-96-6917Evuajtjgsa hospital visit by bzygxcooy44/27/2025 8:25 AM EDT Hospital Encounter Admitting [address] [place] [address] Nato Hawkins MD [address] [place] [address] Ureteral stricture [N13.5]AdmittingComment on above:Ureteral stricture [N13.5]Start: 01-07-2025 End: 55-67-3780Nzvxizhf laparoscopy procedure ureterXI ROBOTIC LAPAROSCOPIC REIMPLANT URETER BLADDER W/ PSOAS HITCH OR BLADDER FLAP Ureteral stricture 1 8:25 AM EDTMC MAIN PAVILIONStart: 12-31-2024 End: 76-00-6508Yabiewn encounter pyeblufnt03/20/2025 11:15 AM EDT Appointment Radiology [address] [place] [address] W/WO IV CON Pre-OpRadiologyComment on above:Urogram CT W/WO IV CON Pre-OpStart: 12-31-2024 End: 14-63-9407mnetnibjlr07/20/2025 10:45 AM EDT Results Only [place] [facility] Laboratory [address] [place], [place] [phone] ct firstLorain [facility] LaboratoryComment on above:ct firstStart: 12-31-2024 End: 87-51-0982Mgyjytkbji ghvddsuandcy76/20/2025 9:40 AM EDT PAT Pre Anesthesia [address] [place] [address] 1, Pacc [place] [address] [place] [address] Pre-Op, 01/07/2025, Dr. Irena Antonio AnesthesiaComment on above:Pre-Op, 01/07/2025, Dr. Chamberlain-FoyStart: 12-99-6718Nppyydsi identified in Urine by CultureUrine [facility] Hospitaltart: 17-86-4402Zmmhk cultureSt. Mary'S Medical [facility] Start: 12-24-2024 End: 57-55-8824KHCQKTQFU CULTURE, UROLOGY PRESURGICAL SCREENING, URINEBACTERIAL CULTURE, UROLOGY PRESURGICAL SCREENING, URINE Microbiology Routine Ureteral stricture Hydronephrosis with ureteral stricture, not elsewhere classified Expected: 12/24/2024, Expires: 01/07/2025leveland ClinicComment on above: Expected: 12/24/2024, Expires: 01/07/2025Start: 12-24-2024 End: 69-31-3680KQF panel - Blood by Automated countCOMPLETE BLOOD COUNT Lab Routine Ureteral stricture Hydronephrosis with ureteral stricture, not elsewhere classified Expected: 12/24/2024, Expires: 01/07/2025[facility] Work Phone: Comment on above:Expected: 12/24/2024, Expires: 01/07/2025Start: 12-24-2024 End: 68-91-6944Ildxouyokaukt metabolic 2000 panel - Serum or PlasmaCOMPREHENSIVE METABOLIC PANEL Lab Routine Ureteral stricture Hydronephrosis with ureteral stricture, not elsewhere classified Expected: 12/24/2024, Expires: 01/07/[address]25 [facility] [facility] HospitalComment on above:Expected: 12/24/2024, Expires: 01/07/2025Start: 12-24-2024 End: 61-59-9982PRSZ + SCREENTYPE + SCREEN Blood Bank Routine Ureteral stricture Hydronephrosis with ureteral stricture, not elsewhere classified Expected: 12/24/2024, Expires: 01/07/2025[facility] hospitaland ClinicComment on above:Expected: 12/24/2024, Expires: 01/07/2025Start: 12-10-2024 End: 67-69-3332Lgvtrgk encounter wgxundgtl86/29/2025 2:00 PM EDT Office [place] [address] Pre-OpFinancial Clearance Phone ScreeningComment on above:Pre-OpStart: 18-65-1744Vjsgldtvc vaccinationNOMS HealthcareStart: 11-06-2024 End: 86-42-2443Qjuuhsz encounter gojzgxxtb75/26/2025 2:40 PM EDT Office Visit [facility] [address] [place] [address] Brent Roland, DO [address] [place] [address] NOMYung [place] OBGYNStart: 10-09-2024 End: 30-63-3743Xduvozl encounter procedureNOMS BCP OBComment on above:Arrived Start: 08-14-2024 End: 50-52-4928Afsgkoa encounter uutahzmzy87/03/2025 1:20 PM EDT Office Visit [facility] [address] [place] [address] Yesica Mcnair, PA [address] [place] [address] ArrivedNOMN BCP OBComment on above:ArrivedStart: 07-10-2024 End: 07-26-9952Kyfolkq encounter ppyndaboz82/29/2025 10:00 AM EDT Office Visit [facility] [address] [place] [phone] Brent Roland, DO [address] [place] [address] ArrivedNOMS BCP OBComment on above:ArrivedStart: 55-26-3037IxfkaobsyLakeHealth TriPoint Medical Centertart: 36-31-4384Gnhilzmw admission [facility] Centertart: 21-99-5388Rbocxjzjb vaccinationInfluenza Vaccine (#1)NOMS HealthcareStart: 80-27-1371Febpaqwbt for malignant neoplasm of cervixNOMS HealthcareStart: 38-64-0311WOQ Vaccine (1 - 3-dose SCDM series)HPV Vaccine (1 - 3-dose SCDM series)[facility] Hospitaltart: 09-06-2778Uazmyxyrj for malignant neoplasm of cervixMOUNTAINSTAR HEALTHCARE HealthcareStart: 07-22-0749Skeufnkpq B Vaccine (1 of 3 - 19+ 3-dose series)Hepatitis B Vaccine (1 of 3 - 19+ 3-dose series) [facility] Hospitaltart: 05-15-7638Bzwip microalbumin profileDTaP,Tdap,Td Vaccine (1 - Tdap)[facility] Hospitaltart: 97-32-8433Uttugoo ScreeningAnxiety Screening [facility] Hospitaltart: 60-31-1202Xlalfqefti ScreeningDepression Screening [facility] Hospitaltart: 83-28-0538Bjyczopbl C screeningHepatitis C Screening [facility]tart: 37-05-6468MBN screeningHIV ScreeningSt. Vincent HospitalCBC W Auto Differential panel - BloodCBC and differential Lab Routine Metabolic syndrome Hormone imbalance Ordered: 04/21/2023[facility] Work Phone: comment on above:Ordered: 04/21/2023HLAMYDIA TRACHOMATIS (GENITO/STI)CHLAMYDIA TRACHOMATIS (GENITO/STI) Lab Routine Pelvic pain Ordered: 07/10/2024[facility] HealthcareComment on above:Ordered: 07/10/2024 Comprehensive metabolic 2000 panel - Serum or [facility] CenterComprehensive metabolic 2000 panel - Serum or [facility] CenterComprehensive metabolic 2000 panel - Serum or PlasmaComprehensive metabolic panel Lab Routine Pre-op evaluation Pelvic pain in female H/O: hysterectomyOrdered: 07/23/2024[facility] [place] Work Phone: comment on above:Ordered: 07/23/2024 End: 04-63-3803WC Kidney WO and W contrast IVCT UROGRAM WO/W IVCON Radiology Routine Hydronephrosis with ureteral stricture, not elsewhere classified 1 Occurrences starting 11/21/2024 until 12/21/2025leveland ClinicComment on above:1 Occurrences starting 11/21/2024 until 12/21/2025ytology Cervical or vaginal smear or scraping studyPap Smear Pathology and Cytology Routine Well woman exam with routine gynecological exam Ordered: 10/09/2024[facility] [place] Work Phone: comment on above:Ordered: 10/09/2024Human papilloma virus DNA [Presence] in Unspecified specimen by Probe with amplificationHPV DNA probe, amplified Microbiology Routine Well woman exam with routine gynecological exam Ordered: 10/09/2024[facility] HealthcareComment on above:Ordered: 10/09/2024 Neisseria gonorrhoeae DNA [Presence] in Unspecified specimen by LEO with probe detectionNeisseria gonorrhea DNA probe, direct Lab Routine Pelvic pain Ordered: 07/10/2024[facility] HealthcareComment on above:Ordered: 07/10/2024Patient Education Mediterranean Diet Hyperthyroidism (Overactive Thyroid) (DC) Propranolol Prediabetes (DC)[facility] Work Phone: Patient referralMercy Health Lorain Hospital Ctr Work Phone: SURESWAB(R) ADVANCED VAGINITIS PLUS, TMASURESWAB(R) ADVANCED VAGINITIS PLUS, TMA Pathology and Cytology Routine Pelvic pain Ordered: 07/10/2024[facility] Healthcare Work Phone: comment on above:Ordered: 07/10/2024XR Knee - left 4 ViewsH[facility] Immunizations Immunization DateImmunizationNotesCare RlqgslvaOitvynkq31-99-9049BKYM-NxO-6 (COVID-19) mRNA BNT-162b2 vaxJENNIFER MANDEEP [facility] on above:Result Comment: 2022-01-11: NYLBCU36-06-4589AVZN-ZfV-3 (COVID-19) Ad26 vaccine, recombinantJENNIFER MANDEEP [facility] on above:Result Comment: 2022-01-11: TPVALL Payers DatePayer CategoryPayerPolicy [id number] Health Insurance [id number] [facility] [id number]3-14-8172JisxntiCZJX [facility] [id number] 2021-Present [phone] [facility] [id number] [place] [address] 1.2.840.296477.1.13.693.2.7.3.103[id number] 2.16.840.1.987829.3.579.2.02397-94-4717Riekodz5863110 2.16.840.1.432786.3.579.2.97237-57-6445Cowznxw4880637 2.16.840.1.045601.3.579.2.97111-66-4836Ixrrfvb5931937 2.16.840.1.614363.3.579.2.82585-81-3619Zdjqsts7972654 2.16.840.1.400960.3.579.2.31600-66-2470Xmabqos8951460 2.16.840.1.478085.3.579.2.79161-57-1190Fkykejf5458618 2.16.840.1.809488.3.579.2.55597-52-4797Qtbmjjk9373533 2.16.840.1.141320.3.579.2.65100-23-2293Qqdyvqd2682046 2.16.840.1.371736.3.579.2.37342-22-2230Ljqckmc2046818 2.16.840.1.524708.3.579.2.94594-02-0774Mywnurk5314325 2.16.840.1.283765.3.579.2.26174-54-7981Lfogdko0512531 2.16.840.1.398994.3.579.2.12418-96-0483Zslerxm03196855 2.16.840.1.530327.3.579.2.756626-34-4151Rdtppkw78655949 2.16.840.1.782516.3.579.2.052920-59-6833Uhapmtv8679700 2.16.840.1.587592.3.579.2.267000-09-9932Wowntby8135144 2.16.840.1.317588.3.579.2.165548-50-1591Abzqyuy76034826 2.16.840.1.297566.3.579.2.19882-99-5626Jlnvvxc75460321 2.16.840.1.374993.3.579.2.36447-21-2980Akevomz49309980 2.16.840.1.546222.3.579.2.89311-98-6393Dfyjduy38594753 2.16.840.1.792736.3.579.2.32876-50-2680Omonbaj74792319 2.16.840.1.745544.3.579.2.59517-07-1690Rkkebso34805897 2.16.840.1.734449.3.579.2.42677-81-5488Sjwnfxu99272078 2.16.840.1.428189.3.579.2.98254-96-7883Ixln Cross Blue [id number] 2.16.840.1.254214.19Self-paySelf Hhi84850596-83y2-3163-0300-9f99jl7f140fGpiozkv Harpal MOSES/[id number] 6v45v703-3w8c-25c7-k983-1j4814xu13ob Social History DateTypeDetailFacilityUnknown if ever smokedNort SecretSales Other Start: 02-09-2023 End: 15-24-6405Mug [facility]igned At [facility] Centerrt: 01-13-2022 End: 66-29-9776Tpaljni smoking statusNever smoked tobacco (finding)[facility] Hospitalt[facility]: 34-05-9794Heyoebo smoking statusNeverExecutive Urology of [facility] Hospitaltart: 60-29-1885Pop Assigned At [facility] Hospitaltart: 02-09-2023 End: 79-64-8603Xrxrbjy intakeEx-drinker (finding)[facility] HealthcareStart: 02-09-2023 End: 87-03-1973Hvgurus of Social functionNOMS HealthcareStart: 33-05-8833Nbutyfd Commentoccasional: drinks wine & beerNOMS HealthcareStart: 74-35-5401Ptvwdz identityIdentifies as female gender (finding)[facility] HealthcareStart: 03-18-2010 End: 50-77-0225GxsUerzcz (finding)[facility] Centerexual OrientationExecutive [facility] Tobacco smoking status NHISTobacco smoking consumption unknownTriHealth Good Samaritan Hospitaltart: 80-57-3988Wgn assigned at [facility] centerNot on file [facility] Goals DatePatient GoalDesired Activity/StatePersonal health goal Functional Status GcttOguccvagjlQgwltkYbxnefzj17-98-0172Ziuvpgwrwu statusPatient at Baseline [facility] Work Phone: 1(679) 414-10240333030-21-1044Jkayqixjrv StatusN/AExec[facility] of [facility]11-02-2022Functional StatusN/AExec[facility] Mental Status XmilDsraazpsigTtotmwOjbhirxn48-87-5772Evbgyftja functionCognitive Status Patient at BaselineMer[facility] Work Phone: Clinical Notes 04-08-2021 to 01-07-2025 Note Date & OmqoNnnwBnezorny89-97-4145 NoteHNO ID: [id number] Author: LEONORA PINO, DO Service: ? Author Type: Resident Type: Anesthesia Procedure Notes Filed: 01/07/2025 08:16 Note Text: ANESTHESIOLOGY PROCEDURE NOTE Airway General Information Procedure Start Time/Medication Administration: 01/07/2025 7:46 AM Procedure End Time: 01/07/2025 7:47 AM Patient location during procedure: OR Timeout Performed Pre-procedure: timeout performed Consent Obtained: Yes Patient identity confirmed: arm band Staffing Anesthesiologist: Aniya England MD Resident: Leonora Pino DO Performed by: resident Indications and Patient Condition Indications for airway management: anesthesia Preoxygenated: yes anesthesia circuit Patient position: sniffing Method: asleep Difficult Mask: No Airway Accessory: oral airway Final Airway Details Final airway type: endotracheal airwayFinal Endotracheal Airway: ETT Cuffed: yes Successful intubation technique: video laryngoscopy Devices used: ActionX Endotracheal tube insertion site: oral Blade: Sandy Blade size: #3 ETT size (mm): 7.0 Measured from: lips Measurement (cm): 22 Placement verified by: chest auscultation and capnometry Cormack-Lehane Classification: grade IIa - partial view of glottis Number of attempts at approach: 1 Airway not difficult SIGNATURE: Leonora Pino DO PATIENT NAME: Karlene Alfaro DATE: January 07, 2025 TIME: 8:14 AM CSN: [id number] Marion [facility] Hospital10-20-2025 NoteHNO ID: [id number] Author: AKTHY SLATER RT(R) Service: ? Author Type: Technologist Type: Procedures Filed: 12/31/2024 11:09 Note Text: Radiology Service Progress Note DATE OF SERVICE: December 31, 2024 TIME: 11:02 AM PATIENT IDENTITY VERIFICATION COMPLETED USING TWO (2) STANDARD IDENTIFIERS: Name and Date of confirmed by patient verbally and Name and Date of confirmed by identification band. FALL SCREENING: Has the patient had 2 falls in the last year or 1 fall with injury or currently using an Ambulatory Assistive Device (Walker, Cane, Wheelchair, Crutches, etc.)? No PATIENT GENDER DATA: Assigned female at . status: : No status: NO. PATIENT RELEVANT IMPLANT DATA REVIEWED: Not Applicable PATIENT PRESENTS WITH AN IMPLANTABLE OR ATTACHED RING STRIKER: No ALLERGIES: Reviewed and unchanged CONTRAST ALLERGY: NO. EXAM: CT -CONTRAST INDUCED NEPHROPATHY RISK FACTORS: Not applicable CREATININE: No results found for: CREAT , EGFROTH , EGFRAA P.O.C.T. RESULTS: POC done: Yes, See Lab Tab December 31, 2024 TREATMENT: N/A PERIPHERAL IV DATA: Ambulatory: A peripheral IV was started in the Right antecubital site with a Angio cath: 20 gauge. RADIOLOGY DEPARTMENT: CT; Exam(s) Completed: Urogram. Anesthesia: No SIGNATURE: RT Ludy(R) PATIENT NAME: Karlene Alfaro DATE: December 31, 2024 TIME: 11:02 [facility]09-09-2025 NoteHNO ID: [id number] Author: NATO HAWKINS MD Service: ? Author Type: Physician Type: Progress Notes Filed: 11/20/2024 12:24 Note Text: [facility] UROLOGY NEW PATIENT [...] Nato Hawkins MD Staff Urologist Genitourinary Reconstruction [facility] [place] Department of Urology I spent a total of 30 minutes on the date of the service which included preparing to see the patient, ewzm-dg-dvth patient care, completing clinical documentation, obtaining and/or reviewing separately obtained history, performing a medically appropriate examination, counseling and educating the patient/family/caregiver, and ordering medications, tests, or procedures. >50% of time was devoted to patient counseling. [1][facility] HospitalRsjwmkqm39-17-8216 History of Present illness Narrative* Nato Hawkins MD - 11/20/2024 10:00 AM EDT Images from the original note were not included. [facility] UROLOGY NEW PATIENT [...] was aborted because of finding of left ureteralstricture Stent placed with difficulty - dense distal [...] Nato Hawkins MD Staff Urologist Genitourinary Reconstruction [facility] [place] Department of Urology I spent a total of 30 minutes on the date of the service which included preparing to see the patient, jgen-iy-vjli patient care, completing clinical documentation, obtaining and/or reviewing separately obtained history, performing a medically appropriate examination, counseling and educating the pat ient/family/caregiver, and ordering medications, tests, or procedures. >50% of time was devoted to patient counseling. [1] documented in this encounterSt. Vincent Hospital07-29-2025 History of Present illness Narrative* Leatha Blair LPN - 10/09/2024 1:00 PM EDT adip Reason for Appointment: Patient ID: Tootie [...] 0.4 mg, Daily ALLERGIES Allergies Allergen Reactions Grogspv-Fhbrgq-Jstmi Pertussis Swelling Tetanus-Diphtheria Toxoids Td Other Azithromycin [...] nursing note reviewed. Exam conducted with a ironing worker present. Vitals: Estimated body mass index is [...] them. Patient can also view results via Force[employer] Networkst. I reinforced importance of condom use for [...] of: Brent Roland DO documented in this encounterKindred HospitalIcqtyhdiez12-73-5892 Hospital Discharge instructions Patient Education 10/02/2024 15:41:56 [...] about 300 mg of calcium at each meal.Foods that contain 200 500 mg of calcium a serving include: ?8 oz (237 mL) of milk, brukrvf-dpqzabrpowaj-zshzi milk, and calcium- fortifiedfruit juice. Calcium-fortified means [...] the table and allow each person to addtheir own salt to taste. Use vegetable protein, such as beans, textured vegetable protein (TVP), or tofu, instead of meat inpasta, casseroles, and soups. Meal planning Eat less salt, if told by your dietitian. To do this: ?Avoid eating processed or pre-made food. ?Avoid eating fast food. Eat less animal protein, including cheese, meat, poultry, or fish, if told by your dietitian. To dothis: ?Limit the number of times you have meat, poultry, fish, or cheese each week. Eat a diet free of meat at least 2 days a week. ?Eat only one serving each day of meat, poultry, fish, or seafood. ?When you prepare animal proteins, cut pieces into small portion sizes. For most meat and fish, oneserving is about the size of the palm [...] ?Spinach (cooked), rhubarb, beets, sweet potatoes, and Palauan chard. ?Peanuts. ?Potato chips, vietnamese fries, and baked potatoes with skin on. ?Nuts and nut products. ?Chocolate. If you regularly take a diuretic medicine, make sure to eat at least 1 or 2 servings of fruits or vegetables that are high in potassium each day. These include: ?Avocado. ?Banana. ?[place], prune, carrot, or tomato juice. ?Baked potato. [...] magnesium, fish oil, or vitamin B6. Take ouvd-dfv-uirspqr and prescription medicines only as told by [...] Casseroles. Pizza. Lasagna. Frozen meals. Potato chips. Cape Verdean fries. The items listed above may not be a complete list of foods and beverages you should limit. Contact a dietitian for more information. What foods should I avoid? Talk to your dietitian about specific foods you should avoid based on the type of kidney stones youhave and your overall health. Fruits Grapefruit. The item listed above may not be a complete list of foods and beverages you should avoid. Contact adietitian for more information. Summary Kidney stones are [...] provider. Document Revised: 06/10/2022 Document Reviewed: 06/10/2022 [employer] Patient Education 2023 Labmeeting. Follow Up Care 09/11/2024 09:57:49 With:LUCY STILES, Kamaljit Rivas, URL Address: [facility] [address], [place] [address]- When: Unknown [facility] 07-22-2025 NotePatient Education Nephrology Dietary Guidelines to Help Prevent [...] labels. Limit your salt (sodium) intake to lessthan 1,500 mg a day. ??? Choose foods with calcium for each meal and snack. Try to eat about 300 mg of calcium at each meal. Foods that contain 200?500 mg of calcium a serving include: ? 8 oz (237 mL) of milk, bvffget-jivyrjxbdkud-axgel milk, and calcium- fortifiedfruit juice. Calcium-fortified means [...] on the table and allow each person toadd their own salt to taste. ??? Use [...] Spinach (cooked), rhubarb, beets, sweet potatoes, and Palauan chard. ? Peanuts. ? Potato chips, vietnamese fries, and baked potatoes with skin on. ? Nuts and nut products. ? Chocolate. ??? If you regularly take a diuretic medicine, make sure to eat at least 1 or 2 servings of fruits or vegetables that are high in potassium each day. These include: ? Avocado. ? Banana. ? [place], prune, carrot, or tomato juice. ? Baked potato. ? Cabbage. ? Beans and split peas. Lifestyle ??? Drink enough fluid to keep your urine pale yellow. This is the most important thing you can do.Spread your fluid intake throughout the day. ??? [...] fish oil, or vitamin B6. ??? Take yfnc-gcj-ybpzros and prescription medicines only as told by your health (more content not included)...[facility]06-25-2025 Evaluation note* Diagnosis Onset Date Resolution Status Admit Date Poison abena dermatitis acuteJune 2024 1:43pm [facility] Work Phone: 1(964) 749-144206-03-2025 History of Present illness Narrative* MARGRET Canales [...] chew, or split. ALLERGIES Allergies Allergen Reactions Qkxjnsg-Nsmrhj-Reeyc Pertussis Swelling Tetanus-Diphtheria Toxoids Td Other Azithromycin [...] behalf of: MARGRET Canales documented in this encounterKindred [id number] History of Present illness Narrative* Brenda Tomlinson [...] with Dr. Roland at [facility]. MEDICATIONS Current Outpatient Medications Medication Instructions [...] chew, or split. ALLERGIES Allergies Allergen Reactions Nbjrixe-Olnbex-Xipjv Pertussis Swelling Tetanus-Diphtheria Toxoids Td Other Azithromycin [...] nursing note reviewed. Exam conducted with a ironing worker present. Vitals: Estimated body mass index is [...] of: Brent Roland DO documented in this encounterKindred [id number] History of Present illness Narrative* Leatha Blair [...] Oral, Daily ALLERGIES Allergies Allergen Reactions Adacel [Igjdzzr-Gfquth-Jplqx Pertussis] Swelling Clindamycin Rash PROBLEMS Active Ambulatory [...] nursing note reviewed. Exam conducted with a ironing worker present. Vitals: Estimated body mass index is [...] of: Brent Roland DO documented in this encounterKindred [id number] Evaluation note* Diagnosis Onset Date Resolution Status Admit Date Obesity (BMI 30.0-34.9) acuteJanuary 2024 11:26amHypothyroidismacuteMarch 2024 10:00am [facility] 10:00amScreening for metabolic disorderacutePrem[facility] 2024 10:00amScreening, deficiency anemia, ironacutePremier Health 2024 10:00amVitamin D deficiencyacutePremier Health 2024 10:00am [facility] Work Phone: 1([phone]) 239-959812-04-2024 Evaluation note* Diagnosis Onset Date Resolution Status Admit Date Bronchitis acuteDecember 2023 1:00pmMaxillary sinusitisacuteDecember 2023 1:00pm Obesity (BMI 30.0-34.9)[facility]:00pm [facility] Work Phone: 1([phone]) 862-690702-08-2024 History of Present illness Narrative* MARGRET Canales - 04/21/2023 8:50 AM EST Reason for Appointment: Patient ID: Tootie Alfaro is a 32 y.o. female who presents for telehealth follow up Patient presents today via telephone call for a telehealth appointment. Patients Phone #: [phone] (mobile) Current Medications: has a current medication [...] LIGATION Bilateral 2012 Allergies Allergen Reactions Adacel [Aqlittb-Hjcaos-Wzoph Pertussis] Swelling Clindamycin Rash Vitals: Estimated body [...] for cbc check for kidney function to [facility]. Pt aware and agrees to have blood work obtained. She will follow up in office in 3 months Documented by MARGRET Canales on behalf of: MARGRET Canales * Hedy Carter MA - 04/21/2023 8:50 AM EST Cbc order was sent to [facility] for pt to have done. documented in this encounterNOMercy Hospital South, formerly St. Anthony's Medical [id number] Evaluation note* Encounter Date Diagnosis Assessment Notes Treatment Notes Treatment Clinical Notes Mar, Bronchitis (ICD-10 - J40) Discussed diagnosis with patient. Finish entire course of antibiotic. Proair inhaler sent today forpatient to use PRN cough/wheezing/shortness of breath. Tessalon Pearles ordered to take as needed for cough. Increase fluids and rest. Flav-zay-svoxomc antipyretics as needed. Warning signs and symptoms reviewed with patient today. Patient to go immediately to the ER should she experience any of these. Patient to notify office should her symptoms persist and not improve. Patient verbalizes understanding and agrees to treatment plan. Mar,Vaginal yeast infection (ICD-10 - B37.31)Pt requests diflucan to cover probable yeast infection w antibiotic. Pfenex Other 12-29-2023 Evaluation note* Encounter Date Diagnosis Assessment Notes Treatment Notes Treatment Clinical Notes Feb, Sore throat (ICD-10 - J02.9) Pfenex Other 10-06-2023 Evaluation note* Encounter Date Diagnosis Assessment Notes Treatment Notes Treatment Clinical Notes Dec, Hypothyroidism (ICD-10 - E03.9) Recheck in next 4-6 weeks. Continue healthy diet and exercise. Pfenex Other 09-20-2023 Discharge summary Author Baljinder Polanco [facility] December 01, 2022 5:19pmNote Date/TimeSept2022 1:02pmLouis [place] [id number] Discharge Summary Signed Patient: Karlene Alfaro MR#: [id number] : 1990 Acct:[id number] Age/Sex: 32 / F Adm Date: 3 Loc: Room: [address] [place] [address]: Baljinder Polanco MD Copies to: [...] a tachycardia and minimally increased troponin. A D- dimer and chest x-ray were negative. She was admitted to the hospital for evaluation. Serial cardiac markers did not demonstrate any significant increase. Tachycardia was treated with propranolol. An echocardiogram was unremarkable. It was felt that her symptoms were secondary to iatrogenic hyperthyroidism, as TSH was almost completely suppressed. No complications occurred. Patient was discharged home with a prescription for propranolol and witha decreased dose of levothyroxine. Recheck TSH in [...] H, LDL Cholesterol, Calc 132 H, VLDL Rrchokmstht67, HDL Cholesterol 54, Cholesterol/HDL Ratio 4.0 12/01/22 06:32: Troponin I High Sens 27.1 H 11/30/22 21:16: POC Glucose 100 11/30/22 16:04: Urine Color Yellow, Urine Appearance Clear, Urine pH >= 9.0, Ur Specific Gravity1.013, Urine Protein Negative, Urine Glucose (UA) Normal, [...] % (Auto) 59.2, Lymph % (Auto) 32.3, Coos % (Auto) 6.8, Eos % (Auto) 0.9, Baso % (Auto) 0.8, Nucleat RBC Rel Count 0.2, Neut # (Auto) 4.9, Lymph # (Auto) 2.7, Coos # (Auto) 0.6, Eos # (Auto) 0.1, Baso # (Auto) 0.1, Monocyte Dist Width19.22 11/30/22 13:00: PHA Creatinine Clear 114.08, Sodium 138, Potassium 4.1, Omuypxzv955, Carbon Lrykfnx43.9, Anion Gap 14.2, BUN 9, Creatinine 0.83, Est GFR (CKD-EPI) > 60.0, Glucose 77, Calcium 9.5,Magnesium 1.9, Total Bilirubin 0.9, DirectBilirubin 0.00 L, Indirect Bilirubin 0.9, AST 11 L, ALT 16, Alkaline Hpkjbpequfk40, Total Protein 7.6, Albumin 4.4, Globulin 3.2, Albumin/Globulin Ratio 1.4,Free T4 1.56 H, TSH 3rd Generation 0.03 [...] the office if you have not heard fromthem by the next business day.) Aniya Waldrop MD [Referring] - 12/28/22 1:20 pm (You have been scheduled for a follow up appointment for the following date and time, please call to reschedule if needed.) Documented By: Baljinder Polanco MD 12/01/22 1259 Signed By: <Electronically signed by Baljinder Polanco MD> 12/01/[address] [facility] Work Phone: [phone]) 889-706409-19-2023 History and physical note Author Baljinder Polanco [facility] November 30, 2022 4:34pmNote Date/TimeSeptember 2022 4:34pm[place] [address] Hospitalist H&P Signed Patient: Karlene Alfaro MR#: [id number] : 1990 Acct:[id number] Age/Sex: 32 / F Adm Date: 3 Loc: Room: [address] [place] [address] Type: ADM IN Attending Dr: Baljinder Polanco [...] She has no gastrointestinal symptoms, is able totolerate food well. No chest palpitations. No upper [...] rub or JVD. Peripheral pulses present bilaterally. Dwckd-vr-sowq ultrasound is unremarkable. Lungs are clear to [...] the dose of levothyroxine upon discharge. Low-dose beta-blockeruntil then. Not sure whether this contributes to her symptoms. DVT prophylaxis Xarelto [facility] Medical History (Updated 11/30/22 @ 15:13 [...] % (Auto) 32.3 % (.) 11/30/22 13:00 Coos % (Auto) 6.8 % (.) 11/30/22 13:00 Eos % (Auto) 0.9 % (.) 11/30/22 13:00 Baso % (Auto) 0.8 % (.) 11/30/22 13:00 Nucleat RBC Rel Count 0.2 /100 WBC (0-0.5) 11/30/22 13:00 Neut # (Auto) 4.9 x10E3/uL (1.8-7.7) 11/30/22 13:00 Lymph # (Auto) 2.7 x10E3/uL (1.00-4.8) 11/30/22 13:00 Coos # (Auto) 0.6 x10E3/uL (0.0-0.8) 11/30/22 13:00 [...] >= 9.0 (5.0-9.0) 11/30/22 16:04 Ur Specific [place] 1.013 (1.001-1.030) 11/30/22 16:04 Urine Protein Negative [...] signed by Baljinder Polanco MD> 11/30/22 1634 [facility] Work Phone: [phone]) 203-821209-18-2023 Evaluation note* Encounter Date Diagnosis Assessment Notes Treatment Notes Treatment Clinical Notes Nov, Right-sided chest pain (ICD-10 - R07.9) HR regular, check EKG for complete workup of the chest discomfort Nov,yspnea, unspecified (ICD-10 - R06.00)Check labs r/o anemia or other metabolic causes. 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 Pt aware that they need to continueto work hard at weight loss or the weight will be regained. Side effects discussed and understood. Pt education printed and discussed. Pt notified of prescribing schedule with 30 day dispensing, no re fills, for up to 12 weeks, with a 6 month break in-between treatments. Id SOB, CP, mood changes, tachycardia, HTN, headaches, blurred vision occur, go to ER and Follow-up with me immediately. Nov,ody mass index [BMI] 28.0-28.9, adult (ICD-10 - Z68.28) Pfenex Other 08-25-2023 Evaluation note* Encounter Date Diagnosis Assessment Notes Treatment Notes Treatment Clinical Notes Oct, Allergic contact dermatitis, uns pecified cause (ICD-10 - L23.9) Take medications as directed. Complete all doses. Wash all belongings that came in contact with plant oils. May continue to use Calamine lotion. Patient verbalized understanding and agreement with treatment plan. Pfenex Other 08-07-2023 Evaluation note* Encounter Date Diagnosis Assessment Notes Treatment Notes Treatment Clinical Notes Oct, Overweight (BMI 25.0-29.9) (ICD- 10 - E66.3) Patient has clearly made a [...] plateau. Pt aware that they need to continueto work hard at weight loss or the weight will be regained. Side effects discussed and understood. Pt education printed and discussed. Pt notified of prescribing schedule with 30 day dispensing, no re fills, for up to 12 weeks, with a 6 month break in-between treatments. Id SOB, CP, mood changes, tachycardia, HTN, headaches, blurred vision occur, go to ER and Follow-up with me immediately. Pfenex Other 07-07-2023 Evaluation note* Encounter Date Diagnosis Assessment Notes Treatment Notes Treatment Clinical Notes Sep, Overweight (ICD-10 - E66.3) Sep,ody mass index [BMI] 29.0-29.9, adult (ICD-10 - Z68.29) Pfenex Other 06-29-2023 Evaluation note* Encounter Date Diagnosis Assessment Notes Treatment Notes Treatment Clinical Notes Aug, Acute contact dermatitis (ICD-10 - L25.9) Take medications as directed. Complete all doses. Wash all belongings that came in contact with plant oils. May continue to use Calamine lotion. Patient verbalized understanding and agreement with treatment plan. Pfenex Other 04-05-2023 NoteOPERATIVE NOTE OPERATION DATE: 06/16/2022 PROCEDURE: Diagnostic laparoscopy. PREOPERATIVE DIAGNOSIS: Pelvic pain, left ovarian cyst. POSTOPERATIVE DIAGNOSIS: Pelvic pain, left ovarian cyst. ANESTHESIA: General. SURGEON: Brent Roland D.O. PROGRAM MANAGER ENVIRONMENTAL PLANNING: MIRNA Harden URINE OUTPUT: Yellow and clear. [...] Recovery Room in stable condition.[id number] Hospital Discharge instructions Patient Education 05/21/2022 10:45:43 Kidney Stones, Guip-ls-Gliv Kidney Stones Kidney stones are rock-like masses [...] Follow these instructions at home: Medicines Take uhxt-vyp-uztajqo and prescription medicines only as told by [...] 08/16/2008 Document Revised: 07/17/2019 Document Reviewed: 07/17/2019 [employer] Patient Education 2020 [employer]. Follow Up Care 05/11/2022 13:32:37 With:LUCY STILES, Kamaljit Rivas, URL Address: [address] [place], [place] [id number]- When: Unknown [facility] 01-03-2023 Evaluation note* Encounter Date Diagnosis Assessment Notes Treatment Notes Treatment Clinical Notes Mar, Pharyngitis, unspecified etiolog y (ICD-10 - J02.9) New medications as directed. Increase fluids, rest, good hand washing. OTC for fever/discomfort. Tooth brush in the manager front or get a new one after on antibiotics for 24 hours. F/U if no improvement in the next 72 hours Mar,Vaginal yeast infection (ICD-10 - B37.31)Will treat empirically for yeast, discharge and sx reported consistent with that of vaginal candidiasis. Instructed patient to take as directed, advised that she should feel improvement in about 2 days. Pfenex Other 11-02-2022 Hospital Discharge instructions Patient Education [...] 02/14/2013 Document Revised: 10/18/2018 Document Reviewed: 10/18/2018 [employer] Patient Education 2020 [employer] Follow Up Care 01/11/2022 14:36:11 With:[facility] Address: [address] [place] [address] Business (1) When: Unknown Comments:for procedure as scheduled [facility] 01-26-2022 Evaluation note* Encounter Date Diagnosis Assessment Notes Treatment Notes Treatment Clinical Notes Mar, Contact with and (bo spected) exposure to other viral communicable diseases (ICD-10 - Z20.828) Mar,Viral upper respiratory illness (ICD-10 - J06.9) Drink plenty of fluids and get plenty of rest. Continue amoxicillin as prescribed until gone. Take the prednisone as prescribed until gone. Use the albuterol inhaler as prescribed as needed for coughor shortness of breath. Follow-up with your family physician and consider getting a PCR test done to [place] if possible. Mar,ther Additional time spent conducting pre-visit phone call, screening for symptoms, instructions on social distancing, application and removal of PPE, and cleaning of examination room, equipment and supplies was preformed. Patient education given for testing methodology and results. Patient care instructions given in writting by [facility] document. Pfenex Other Evaluation + Plan note No data available for this section [facility] evaluation + Plan note Future Appointments Appointment Date:09/03/2022 08:00:00 AM Scheduled Provider:Kamaljit AYALA MD Location:[facility] Appointment Type:URO Office Visit [facility] evaluation + Plan note Future Appointments Appointment Date:12/28/2024 08:00:00 AM Scheduled Provider:Kamaljit AYALA MD Location:[facility] Appointment Type:URO Office Visit [facility] Evaluation noteNo assessment information available [facility] Work Phone: evalulkogq noteNo InformationNort SecretSales Other Evaluation note* Diagnosis Onset Date Resolution Status Chest pain acuteTachycardiaacute [facility] Work Phone: Evaluation note* Diagnosis Insulin resistance Other abnormal glucose Metabolic syndrome Dysmetabolic Syndrome X Hormone imbalance documented [facility] encounter [facility]* Diagnosis Onset Date Resolution Status Allergic reaction due to antibacterial d rug acuteStreptococcus pharyngitisacute [facility] Work Phone: Evaluation note* Diagnosis Onset Date Resolution Status Anxiety acuteThyroid diseaseacuteMigrainesacuteScreening for lipid disordersacute Screening for metabolic disorderacuteScreening, deficiency anemia, ironacute [facility] Work Phone: Evaluation note* Diagnosis Onset Date Resolution Status Migraines acuteScreening for lipid disordersacuteScreening for metabolic disorderacute Screening, deficiency anemia, ironacuteLeft knee painacute [facility] Work Phone: evaluation note* Diagnosis Onset Date Resolution Status Migraines acuteScreening for lipid disordersacuteScreening for metabolic disorderacute Screening, deficiency anemia, ironacuteLeft knee painacuteWellness examination acutePoison abena dermatitisacute [facility] Work Phone: Evaluation note* Diagnosis Pelvic pain documented in this encounter [facility]* Diagnosis Pre-op evaluation Pelvic pain in female Unspecified symptom associated with female genital organs Pain of ovary H/O: hysterectomy Acquired absence of both cervix and uterus documented in this encounter [facility]* Diagnosis Acute postoperative pain Other acute postoperative pain Postoperative follow-up Follow-up examination, following unspecified surgery Other insomnia documented [facility] this encounter [facility]* Diagnosis Onset Date Resolution Status Admit Date Poison abena dermatitis acuteJune 2024 1:43pm [facility] Work Phone: Evaluation note* Diagnosis Well woman exam with routine gynecological exam Routine gynecological examination Insulin resistance Other abnormal glucose Encounter for weight loss counseling documented [facility] this encounter [facility]* Diagnosis Flank pain- Primary Abdominal pain, unspecified site Ureteral stricture Stricture or kinking of ureter H/O: hysterectomy Acquired absence of both cervix and uterus [facility] Diagnosis Ureteral stricture- Primary Stricture or kinking of ureter Hydronephrosis with ureteral stricture, not elsewhere classified Ureteral stricture Stricture or kinking of ureter documented in this encounter [facility] general Narrative - Reported* Type Description Date Medical History hypothyroidism Surgical Historygallbladder removalSurgical HistoryappendecsSurgical History ovarian cysts taken out in Surgical HistoryhysterectomyHospitalization HistorysurgeriesHospitalization Historychild [employer] [facility] [employer] Other History general Narrative - Reported* Type Description Date Medical History hypothyroidism Surgical Historygallbladder removalSurgical HistoryappendecsSurgical History ovarian cysts taken out in Surgical HistoryhysterectomyHospitalization HistorysurgeriesHospitalization Historychild birthHospitalization History[facility]2022 [employer] [facility] [employer] Other Hospital Discharge instructions Additional Instructions You have slightly elevated cholesterol level and prediabetes. Try to eat a healthier diet. Mediterranean diet is the best studied to improve health outcomes. I attached some instructions. Establish care with a primary care physician who will manage all your health issues.[facility] Work Phone: Progress note No data available for this section [facility] reason for referral (narrative)No reason for referral information availableMadison Health Work Phone: Advance Directives No Advanced Directives [...] coronary artery bypass surgeryUnknownMalignant neoplasm of colon Unknown Relationship Condition Age at Onset Recorded Date/T pool grandparent Myocardial infarction Unknown History of coronary artery bypass surgeryUnknownMalignant neoplasm of colon UnknownNot SpecifiedHypertensionUnknown Relationship Condition Age at Onset Recorded Date/T pool grandparent Myocardial infarction Unknown History of coronary artery bypass surgeryUnknownMalignant neoplasm of colon UnknownmotherHypertensionUnknown Chief Complaint and Reason for Visit Chief [...] Fever, Strep Throat, No Voice, Work Note AnxietyReason for VisitAllergic reaction due to antibacterial drug Streptococcus pharyngitis Chief Complaint Anxiety Amb Documentation migraineReason for VisitAnxiety Thyroid disease Migraines Screening for lipid disorders Screening for metabolic disorder Screening, deficiency anemia, iron Chief Complaint Amb Documentation migraine wellness, left hip painReason for VisitMigraines Screening for lipid disorders Screening for metabolic disorder Screening, deficiency anemia, iron Left knee pain Chief Complaint migraine wellness, left hip pain posion abena swollen eyeReason for VisitMigraines Screening for lipid disorders Screening for metabolic [...] Date Rash September 05, 2024 1:43 pm Chief Complaint Admit Date LT flank Pain;Uretrial stricture October 29, 2024 7:36am Unknown December 26, 2024 7 :50am Additional Source Comments REASON FOR VISIT (unrecogniz ed section and content) ReasonCommentstelehealth follow upReasonCommentsPelvic PainLeft sidedReason CommentsPre-op VisitPt present today for a pre operative visit.ReasonComments Post-op VisitReasonCommentsWell Women VisitReasonCommentsConsult Patient Care team informatio n (unrecognized section and content) Team Status: Active Member Role Status Devin Hodges MD Primary Care Provider Active Team Status: Inactive Member Role Status Devin Hodges MD Primary Care Provider Active Start: September 07, 2023 End: September 07, 2023Saniya Mays APRN NUCLEAR POWERPLANT MECHANIC HELPER-CAttenludmila ProviderActive Start: September 07, 2023 End: September 07, 2023 Team Status: Inactive Member Role Status Devin Hodges MD Primary Care Provide r, Attending Provider Active Start: October 03, 2023 End: October 03, 2023 Team Status: Inactive Member Role Status Devin Hodges MD Primary Care Provider Active Start: October 10, 2023 End: October 10, 2023Saniya Mays APRN NUCLEAR POWERPLANT MECHANIC HELPER-CAttending ProviderActive Start: October 10, 2023 End: October 10, 2023 Team Status: Inactive Member Role Status Devin Hodges MD Primary Care Provide r, Attending Provider Active Start: December 02, 2023 End: December 02, 2023 Team Status: Active Member Role Status Devin Hodges MD Primary Care Provider Active Start: July 12, 2023 Nisa Jenkins ProviderActiveStart: July 12, 2023 Team Status: Inactive Member Role Status Devin Hodges MD Attending Provider Active St art: April 04, 2023 End: April 04, 2023 Team Status: Active Member Role Status Devin Hodges MD Primary [...] MD Primary Care Provider Active Treasure Quezada NP-CAttending ProviderActive Team Status: Inactive Member Role Status Dates Surya Hodges MD Primary Care Provider Active Marcio Steven , DOEmergency ProviderActiveAndrei Sherri , MDAdmit Provider, Attending ProviderActiveTeam MemberRelationshipSpecialtyStart DateEnd Date Surya Hodges MD [address] [facility] [facility] [place] [id number] PCP - [facility]09/27/22 Team Status: Active Member Role Status Dates Saniya Mays APRN NUCLEAR POWERPLANT MECHANIC HELPER-C Primary Care Provider Active Team Status: Inactive Member Role Status Dates Saniya Mays APRN NUCLEAR POWERPLANT MECHANIC HELPER-C Primary Care Provider, Attending Provider Active Start: February 15, 2024 End: February 15, 2024 Team Status: Inactive Member Role Status Dates Saniya Mays APRN NUCLEAR POWERPLANT MECHANIC HELPER-C Primary Care Provider, Attending Provider Active Start: March 15, 2024 End: March 15, 2024 Team Status: Inactive Member Role Status Dates Saniya Mays APRN NUCLEAR POWERPLANT MECHANIC HELPER-C Primary Care Provider, Attending Provider Active Start: May 16, 2024 End: May 16, 2024Team MemberRelationshipSpecialtyStart DateEnd Date Surya Hodges MD PCP - [facility]09/27/22Team MemberRelationshipSpecialtyStart DateEnd Date Surya Hodges MD [address] [facility] [facility] [place] [phone] PCP - [facility]09/27/22Team MemberRelationshipSpecialtyStart DateEnd Date Surya Hodges MD [address] [facility] [place] [phone] PCP - GeneralFamily Medicine09/27/22Team MemberRelationshipSpecialtyStart DateEnd Date Surya Hodges MD [address] [facility] [facility] [place] [address] PCP - GeneralFamily Medicine09/27/22Team MemberRelationshipSpecialtyStart DateEnd Date Surya Hodges MD [address] [facility] [facility] [place] [address] PCP - GeneralFamily Medicine09/27/22Team MemberRelationshipSpecialtyStart DateEnd Date Surya Hodges MD [address] [facility] [place] [id number] [facility] - [facility]/27/22Team MemberRelationshipSpecialtyStart DateEnd Date Surya Hodges MD [address] [facility] [place] [address] [facility] - [facility]09/27/22 Team Status: Active Member Role Status Dates Saniya Mays APRN [employer]UCLE[employer] POWER[employer]ANT [employer]CH[employer]IC HEL[employer]-C Primary Care Provider Active Start: July 23, 2024 Marcin Gery ProviderActiveStart: July 23, 2024 Team Status: Active Member Role Status Dates Saniya Mays APRN NUCLEAR POWERPLANT MECHANIC HELPER-C Primary Care Provider Active Start: August 02, 2024 Marcin Grey ProviderActiveStart: August 02, 2024 Team Status: Active Member Role Status Dates Saniya Mays APRN NUCLEAR POWERPLANT MECHANIC HELPER-C Primary Care Provider Active Start: August 23, 2024 Darien Martinez ProviderActiveStart: August 23, 2024 Team Status: Inactive Member Role Status Dates Saniya Mays APRN NUCLEAR POWERPLANT MECHANIC HELPER-C Primary Care Provider Active Start: September 05, 2024 End: September 05, 2024Saniya Mays APRN NUCLEAR POWERPLANT MECHANIC HELPER-CAtnarinderding ProviderActive Start: September 05, 2024 End: September 05, 2024Team MemberRelationshipSpecialtyStart DateEnd Date Surya Hodges MD [address] [facility] [place] [id number] [facility] - [facility]09/27/22Team MemberRelationshipSpecialtyStart DateEnd Date Surya Hodges MD [address] [facility] [place] [id number] [facility] - [facility]09/27/22 Team Status: Active Member Role Status Dates Saniya Mays APRN NUCLEAR POWERPLANT MECHANIC HELPER-C Primary Care Provider Active Start: October 09, 2024 Marcin Grey ProviderActiveStart: October 09, 2024 Team Status: Inactive Member Role Status Dates Saniya Mays APRN NUCLEAR POWERPLANT MECHANIC HELPER-C Primary Care Provider Active Start: October 29, 2024 End: October 29, 2024PaDarien Hoffmann ProviderActiveStart: October 29, 2024 End: October 29, 2024Team MemberRelationshipSpecialtyStart DateEnd Date Surya Hodges MD [address] [facility] [place] [id number] [facility] - [facility] Yaffxuyc33/10/14 Kamaljit Ayala MD [address] [facility] [place] [address] ReferringUrology11/06/24Team MemberRelationshipSpecialtyStart DateEnd Date Surya Hodges MD [address] [facility] [place] [phone] PCP - GeneralFamily Cprhieow56/10/14 Kamaljit Ayala MD [address] [place] [address] ReferringUrology11/06/24 Team Status: Active Member Role Status Dates Saniya Mays APRN NUCLEAR POWERPLANT MECHANIC HELPER-C Primary Care Provider Active Start: November 08, 2024 Darien Martinez ProviderActiveStart: November 08, 2024 Team Status: Inactive Member Role Status Dates Nato Hawkins MD Attending Provider Active Start: December 26, 2024 End: December 26, 2024 Team Status: Active Member Role Status Dates Saniya Mays APRN NUCLEAR POWERPLANT MECHANIC HELPER-C Primary Care Provider Active Start: December Marcin Grey ProviderActiveStart: December 26, 2024 Goals (unrecognized section and content) Goals may be documented in a n alternate section INFORMATION SOURCE (unrecogn ized section and content) DATE CREATED AUTHOR 07/01/2022 [facility] DATE CREATED AUTHOR AUTHOR'S ORGANIZ ATION 10/11/2024 [facility] DATE CREATED AUTHOR AUTHOR'S ORGANIZ ATION 12/06/2024 [facility] DATE CREATED AUTHOR AUTHOR'S ORGANIZ ATION 12/26/2024 [facility] DATE CREATED AUTHOR AUTHOR'S ORGANIZ ATION 12/28/2024 [facility] DATE CREATED AUTHOR AUTHOR'S ORGANIZ ATION 01/14/2025 [facility] Source Comments (unrecognize d section and content) In the event this informatio n is protected by the Federal Confidentiality of Alcohol and Drug Abuse Patient Records regulations: The Federal rules restrict any use of the information to criminally investigate or prosecute any alcohol or drug abuse patient.[facility] the event this information is protected by the Federal Confidentiality of Alcohol and Drug Abuse Patient Records regulations: The Federal rules restrict any use of the information to criminally investigate or prosecute any alcohol or drug abuse patient.[facility] FOR RECORDS PERTAINING TO PATIENTS WHO [...] BE BASED ON THE PRIMARY CLINICAL RECORDS. [facility] [employer] [facility]. provides no warranty or guarantee of the accuracy or completeness of information in this document.
[2025-02-20 09:12] LABS: Hematocrit 40.6 % (36.0-48.0); Hemoglobin 13.1 g/dL (12.0-16.0); Immature Granulocytes Abs Auto 0.01 10^3/uL (0.00-0.03); Immature Granulocytes Pct Auto 0.1 % (0.0-0.5); Lymphocytes Absolute Auto 2.0 10^3/uL (1.2-3.8); Mean Corpuscular HGB Conc 32.3 g/dL (29.9-35.2); Mean Corpuscular Hemoglobin 26.8 pg (26.7-34.0); Mean Corpuscular Volume 83.0 fL (81.0-99.0); Platelet Count 408 10^3/uL (150-450); Red Blood Count 4.89 10^6/uL (4.20-5.40); White Blood Count 7.5 10^3/uL (4.0-11.0)
[2025-02-20 09:32] LABS: Alanine Aminotransferase 26 U/L (14-59); Albumin Globulin Ratio 1.0; Albumin Level 3.7 g/dL (3.4-5.0); Alkaline Phosphatase 71 U/L (46-116); Anion Gap 13.8; Aspartate Amino Transferase 12 U/L (15-37); Blood Urea Nitrogen 13.0 mg/dL (7.0-18.0); Calcium 8.7 mg/dL (8.5-10.1); Carbon Dioxide 25.5 mmol/L (21.0-32.0); Chloride 105 mmol/L (98-107); Cholesterol 206 mg/dL (<=200); Estimated GFR (African America >60 (>=60 mL/min/1.73m^2); Estimated GFR (Non-African Ame >60 (>=60 mL/min/1.73m^2); Globulin 3.7 g/dL; Glucose 90 mg/dL (74-106); HDL Cholesterol 44 mg/dL (40-60); Potassium 4.3 mmol/L (3.5-5.1); Sodium 140 mmol/L (136-145); Total Protein 7.4 g/dL (6.4-8.2); Triglycerides 140 mg/dL (<=150); VLDL CHOLESTEROL 28.0 mg/dL
[2025-02-20 10:43] LABS: Iron 32.0 ug/dL (50.0-170.0); Percent Iron Saturation 12.4 %; Total Iron Binding Capacity 258.0 ug/dL (250.0-450.0)
[2025-02-21 05:08] LABS: Vitamin B12 421 pg/mL (232-1245)
== END 2025-02-20 07:44 | disposition home or self-care (01) ==
LOC: LAB 07:50
PROVIDERS: PCP Nurse Practitioner Family; Visit Provider Nurse Practitioner Family
DX: R53.83 Other fatigue (principal); E55.9 Vitamin D deficiency, unspecified; R73.03 Prediabetes
CPT/HCPCS: 36415; 80053; 80061; 82306; 82607; 83540; 83550; 85025

== ENCOUNTER 2025-03-13 08:05 | Outpatient (OUT) | payer BC, SELFPAY ==
--- OUTSIDE RECORDS SUMMARY | 2013-01-18 09:25 | XMS_ITS | Continuity of Care Document ---
Author Organization [facility] Address [address] [place] [address] Phone Care Team Providers Care Dairy Science Teacher Name Role Phone Joaoi DO, Sanya Unavailable Unavailable Allergies, Adverse Reactions, Alerts Substance Reaction Status Criticality No Known allergies Medications Medication Instructions Dosage Effective Dates (start - stop) Status Comments Diflucan 150 mg tablet take 1 tablet (150MG) by oral route once - Active Synthroid 125 mcg tablet take 1 tablet (125MCG) by oral route every day 125 MCG - Active Procedures Procedure Date OFFICE/OUTPATIENT VISIT, EST PREV VISIT, NEW, AGE 18-39 SMEAR, WET MOUNT, SALINE/INK [facility] SPECIMEN HANDLING (GC/CHLAMYDIA) Dec [facility] METRONIDAZOL 500 MG (14 TABLETS) Dec Thin Prep(R) Imaging System Pap W/Reflex To HR HPV DNA Advance Directives Directive Yes / No Effective Date File Name Resuscitation Not Answered N/A N/A Life Support Not Answered N/A N/A Intubation Not Answered N/A N/A Antibiotics Not Answered N/A N/A IV Fluid Support Not Answered N/A N/A Tube Feed Not Answered N/A N/A Other Directive N/A N/A WARNING:The information contained in this section is historical and is provided for information only and does not constitute a legal document or any assurance that the information is still accurate. Please verify the information with the zamora of the legal document before using it for clinical purposes. Encounters Encounter Description Practice Location Reason(s) For Visit Diagnoses Date Provider Providers Copied on Encounter [facility], [address] [place] [address], [place], [place], [id number] , [place] tel:[phone] [facility] No Information 3 Visci DO Sanya. [address] [place], [place], [id number] , [place]. tel: [phone] OFFICE/OUTPA TIENT VISIT, EST [facility], [address] [place], [place], [id number] , [place] tel: [phone] [facility] lab results (chief complaint) Genital herpes, unspecified 3 Abdulaziz Prince. [address] [place], [address], [place]. tel: [phone] PREV VISIT, NEW, AGE 18-39 [facility], [address] [place], [place], [id number] , [place] tel: [phone] [facility] annual visit (chief complaint) Gynecological ExaminationCandidiasi s of vulva and vaginaVaginitisHerpes simplex with other specified complications 3 Abdulaziz Prince. [address] [place], [address], [place]. tel: [phone] Family History Family Member Type Diagnosis Age At Onset Maternal grandmother Problem (finding) breast cancer Mother Problem (finding) hypertension Paternal grandfather Problem (finding) Leukemia Father Problem (finding) Alive and well Payers Payer name Insurance type Covered alliance party ID Authoriza tion(s) No Information Social History Type Description Quantity Date Captured Comments Alcohol Use Details Unknown Caffeine Use Details Unknown Tobacco Use Status No Information Smoking Status No Information Sex Female Sexual Orientation Straight or heterosexual Chief Complaint And Reason For Visit No Information Reason For Referral Reason For Referral No Information Plan Of Treatment Date Type Action Status Goal PAP. Due on due Goal H&P. Due on due History Of Present Illness Encounter Date Complaint History Of Prese nt Illness No Information Functional Status Date Functional Assessmen t No Information Instructions Date Instruction Additional Infor mation Advise on safer sexual practices Assessments Type Assessment Date No Information Patient Care Teams Name Effective Dates (start - stop) Status Members No Information
--- OUTSIDE RECORDS SUMMARY | 2025-03-11 14:45 | XMS_ITS | Encounter Summary ---
Author Organization [facility] tem Address [id number] [address] [place] [address] Care Team Providers Care Staff Counselor Name Role Phone DavonAuroraSaniya JUSTICE Primary Care Provid er Encounter Details DateTypeDepartmentCare Team (Latest Contact Info)Zdxkprdeeck63/29/2025 2:45 PM ESTProcedure visit [facility] On [address] [phone] Pelvic pain; Preop testing; Endometriosis Social History Tobacco UseTypesPacks/DayYears UsedDateSmoking Tobacco: NeverSmokeless Tobacco: Never Tobacco Cessation:Counseling Given: Not Answered Alcohol UseStandard Drinks/WeekCommentsYes0 (1 standard drink = 0.6 oz pure alcohol)occChildcareAnswerDate QpqadzveRqfmhajkySlcolnw38/10/2019Employment AnswerDate KzephvhgAaiijkndftDirbliv30/10/2019Hunger ScreeningAnswerDate RecordedWithin the past 12 months we worried whether our food would run out before we got money to buy more.Never True03/11/2025Within the past 12 months the food we bought just didn't last and we didn't have money to get more.Never True03/11/2025CommentsNoSex and Gender InformationValueDate RecordedSex Assigned at BirthNot on fileLegal KtfAmfvug01/04/2015 12:47 PM EDTGender IdentityNot on fileSexual OrientationNot on filedocumented as of this encounter Last Filed Vital Signs Vital SignReadingTime TakenCommentsBlood Iismlxpc954/7603/11/2025 3:04 PM EST Lnqew36238/29/2025 3:04 PM ELOVaddmkwnvov90 ??C (98.6 ??F)03/11/2025 3:04 PM EST Respiratory Csiw1406 3:04 PM ESTOxygen Ujeqetduwe23%03/11/2025 3:04 PM ESTInhaled Oxygen Concentration--Pqattg40.4 kg (214 lb 11.7 oz)03/11/2025 2:59 PM AVXSihlez719.8 cm (5' 10 )03/11/2025 2:59 PM ESTBody Mass Index30.81 03/11/2025 2:59 PM ESTdocumented in this encounter Functional Status * Food InsecurityQuestionAnswerDate of AssessmentAuthorWithin the past 12 months the food we bought just didn't last and we didn't have money to get more.Never True03/11/2025 3:00 PM Georgina Burgess RNWithin the past 12 months we worried whether our food would run out before we got money to buy more.Never True 03/11/2025 3:00 PM Georgina Burgess RN * AN Cardiac QuestionsQuestionAnswerDate of AssessmentAuthorCP when climbing a flight of stairs or walking a city block?No03/11/2025 2:59 PM Georgina Burgess RNSOB when climbing a flight of stairs or walking a city block?No03/11/2025 2:59 PM Georgina Burgess RN * BEE (kcal)AnswerDate of KvxxbqvwrnLygpgk487817/29/2025 2:59 PM Georgina Burgess RN * VitalsQuestionAnswerDate of DyuemsiyvkTrskefQB208/7603/11/2025 3:04 PM EST Georgina Salazar RNTemp98.61 3:04 PM Georgina Burgess RNTemp srcTemporal 03/11/2025 3:04 PM Georgina Burgess NXEtvli68185/29/2025 3:04 PM Georgina Burgess RNResp151 3:04 PM Georgina Burgess QRDeO16158 3:04 PM Georgina Burgess RNBP LocationRight arm03/11/2025 3:04 PM Georgina Burgess RN BP SyyjhpQeotcurar16/29/2025 3:04 PM Georgina Burgess RN * Vital SignsQuestionAnswerDate of AssessmentAuthorO2 DeviceNone (Room air) 03/11/2025 3:04 PM Georgina Burgess RN * Height and WeightQuestionAnswerDate of FgdepmyuiqVdbdclIibcul0800/29/2025 2:59 PM Georgina Burgess RNWeight3435.6503/11/2025 2:59 PM Georgina Burgess RN Height WwkztzGsffdz81/29/2025 2:59 PM Georgina Burgess RNBSA (Calculated - sq m)2.191 2:59 PM Georgina Burgess RNBMI (Calculated)30.81 2:59 PM Georgina Burgess RNWeight MethodStanding scale03/11/2025 2:59 PM Georgina Alonzo RNWeight in (lb) to have BMI = 57301.91 2:59 PM Georgina Alonzo RN * RespiratoryQuestionAnswerDate of AssessmentAuthorRespiratory (WDL)WDL 03/11/2025 3:25 PM Georgina Burgess RN * Values/BeliefsQuestionAnswerDate of AssessmentAuthorSpiritual Requests During Ychmcualxhrzikyuhtd01/29/2025 2:59 PM Georgina Burgess RN * Abuse Indicator ScreeningQuestionAnswerDate of AssessmentAuthorSafe in HomeYes 03/11/2025 2:59 PM Georgina Burgess RNDo you feel safe in your relationship(s)?Yes03/11/2025 2:59 PM Georgina Burgess RNAre you in immediate danger?No03/11/2025 2:59 PM Georgina Burgess RN * Blood HistoryQuestionAnswerDate of AssessmentAuthorHave you had a blood transfusion?Yes03/11/2025 2:58 PM Georgina Burgess RNHave you ever had a blood transfusion reaction?No03/11/2025 2:58 PM Georgina Burgess RNWould you accept a blood transfusion in a life-threatening situation?Yes03/11/2025 2:58 PM Georgina Alonzo RN * Medical Advance DirectiveQuestionAnswerDate of AssessmentAuthorDo you have a Medical Advance Directive?No03/11/2025 2:58 PM Georgina Burgess RN * Influenza Vaccine Screen - December Through MayQuestionAnswerDate of AssessmentAuthorHave you had an influenza vaccine this season?No03/11/2025 2:58 PM Georgina Burgess RN * Pain AssessmentQuestionAnswerDate of AssessmentAuthorPain Assessment0-10 03/11/2025 2:59 PM Georgina Burgess RNPain Ggwsk959 2:59 PM Georgina Burgess RN * Vitals TimerQuestionAnswerDate of AssessmentAuthorRestart Vitals TimerYes 03/11/2025 3:04 PM Georgina Burgess RN * CardiovascularQuestionAnswerDate of AssessmentAuthorCardiovascular (WDL)WDL 03/11/2025 3:25 PM Georgina Burgess RN * TB ScreeningQuestionAnswerDate of AssessmentAuthorPatient has prolonged cough? No03/11/2025 2:59 PM Georgina Burgess RNPatient has bloody cough?No03/11/2025 2:59 PM Georgina Burgess RNPatient has fever?No03/11/2025 2:59 PM Georgina Burgess RNPatient has night sweats?No03/11/2025 2:59 PM Georgina Burgess RN Patient has weight loss?No03/11/2025 2:59 PM Georgina Burgess RNPatient has positive PPD?No03/11/2025 2:59 PM Georgina Burgess RN * BEE (kcal)AnswerDate of ZwcmpamsfpAgyali136408/29/2025 2:59 PM Georgina Burgess RN * VitalsQuestionAnswerDate of VsxxfeibkeOurqyvYY627/7603/11/2025 3:04 PM Georgina Alonzo RNTemp98.61 3:04 PM Georgina Burgess RNTemp srcTemporal 03/11/2025 3:04 PM Georgina Burgess, FEEvuub73872/29/2025 3:04 PM Georgina Burgess RNResp151 3:04 PM Georgina Burgess, HQRrG59271/29/2025 3:04 PM Georgina Burgess RNBP LocationRight arm03/11/2025 3:04 PM Georgina Burgess RN BP LjslcgFcuhxbqph14/29/2025 3:04 PM Georgina Burgess RN * Height and WeightQuestionAnswerDate of VqpzwdsbqqDgwzhxEyumnw5737/29/2025 2:59 PM Georgina Burgess RNWeight3435.6503/11/2025 2:59 PM Georgina Burgess RN Height MlzyhlAudwdf18/29/2025 2:59 PM Georgina Burgess RNBSA (Calculated - sq m)2.191 2:59 PM Georgina Burgess RNBMI (Calculated)30.81 2:59 PM Georgina Burgess RNWeight MethodStanding scale03/11/2025 2:59 PM Georgina Alonzo RNWeight in (lb) to have BMI = 63318.91 2:59 PM Georgina Alonzo RN documented as of this encounter Mental Status * VitalsQuestionAnswerEntry DblhEmhcnaQO594/7603/11/2025 3:04 PM Georgina Burgess RNTemp98.61 3:04 PM Georgina Burgess RNTemp srcTemporal 03/11/2025 3:04 PM Georgina Burgess, BTDvvxi54180/29/2025 3:04 PM Georgina Burgess ZTAgtv7281/29/2025 3:04 PM Georgina Burgess, GAKlF15428/29/2025 3:04 PM Georgina Burgess RNBP LocationRight arm03/11/2025 3:04 PM Georgina Burgess RN BP LgajijQlsromieu30/29/2025 3:04 PM Georgina Burgess RN * Vital SignsQuestionAnswerEntry DateAuthorO2 DeviceNone (Room air)03/11/2025 3:04 PM Georgina Burgess RN * RespiratoryQuestionAnswerEntry DateAuthorRespiratory (WDL)WDL1 3:25 PM Georgina Burgess RN * Pain AssessmentQuestionAnswerEntry DateAuthorPain Assessment0-101 2:59 PM Georgina Burgess RNPain Nuynm836 2:59 PM Georgina Burgess RN documented in this encounter Patient Instructions * Patient Instructions* Georgina Salazar RN - 03/11/2025 2:45 PM EST Your surgery/procedure is scheduled at [facility] on 03/21/25 at 7:30 am Arrival Time 5:30 am [facility] Address: [address] [place] [address] in [address]ing lot located on [facility]. Report to the Entrance B. Check in at the information desk. The waiting room is located on the second floor. If you have any questions prior to surgery, please call Pre-Admission Clinic at [phone] between 7:30 am and 4:30 pm Tuesday through Tuesday. If you have questions the morning of surgery, please call the Pre-op Department at [phone]. Notify your SURGEON if you develop any illness such as a cold, cough, fever, sore throat, vomiting or are hospitalized between now and your surgery. Medication Instructions (Do not stop your medications without consulting the prescribing physician). Take the following medications the morning of surgery with a sip of water: levothyroxine Diabetic or Weight loss medications: HOLD na Take inhalers as prescribed the morning of surgery. Due to the risk associated with these medications. If these medications are not held per instruction below, your surgery is at an increased risk for cancellation. SGLT2 Medications- Hold 3 days prior to surgery: Jardiance, Empagliflozin, Farxiga, Dapagliflozin, Invokana, Canagliflozin, Trijardy, Synjardy GLP-1 Medications (Injection or Pill)- If taken daily hold day of surgery. If taken weekly, hold 1 week prior to surgery: Adlyxin, Byetta, Bydureon, Ozempic, Rybelsus,Trulicity, Victoza, Wegovy, Lixisenatide, Exenatide, Semaglutide, Dulaglutide, Liraglutide GIP/GLP-1(Injection or Pill)- If taken daily hold day of surgery. If taken weekly, hold 1 week prior to surgery: Vicky . Blood thinners: Please contact your prescribing physician regarding a stop/hold date for these medications. Medications such as Coumadin, Heparin, Aspirin, Plavix, Eliquis, Pradaxa Diabetics: If you take insulin, contact your prescribing doctor for instructions on how to manage this the night before and the morning of surgery. Non-steriodal Anti-Inflammatory Drugs (NSAIDS)- Hold 3 days prior to surgery unless otherwise directed by your surgeon. Vitamins/Herbal Products: You may continue to take your prescribed vitamins such as potassium, iron, vitamin B, vitamin C, or multivitamin unless specifically instructed by your surgeon to hold. STOPtaking all herbal products/teas one week prior to your surgery. Marijuana: Stop marijuana 72 hours prior to surgery, stop CBD oil 48 hours prior to surgery. What do I do the day of Surgery? Age 2 through adult - Stop all solids by midnight, You may have a small amount of clear liquids up to 2 hours before surgery, unless otherwise instructed by your surgeon. Clear liquids are: water, sports drinks such as Gatorade or G2, or apple juice. You may NOT have: tube feedings, dairy products, alcoholic beverages, orange juice, or any liquids with solids or pulp in it. If applicable, shower again with CHG soap the morning of your surgery. In order to help prevent infection post-operatively, you may be asked to use a CHG mouthwash when you arrive to the Pre-op area. Your nurse will provide instruction the morning of. What do I need to do to prepare for surgery? If you will be going home the same day as your surgery, arrange for an adult over [address] Riding in a bus or taxi by yourself is not permitted. You should not smoke or drink alcohol 24 hours before your surgery. Alcohol thins the blood and may cause bleeding problems during surgery. Smoking increases the risk of breathing problems after surgery. Do not use lotions, creams, powders, perfume, make up, cologne or after-shaves day of surgery. Remove ALL jewelry including wedding rings, body piercings (including dermal piercings, hair extensions that contain metal, nail martiniquais, make-up, and contact lens. You may brush your teeth the morning of surgery, but do not swallow the water. Wear your dentures and partial plates to the hospital (no adhesive). Shower the night before your procedure. If applicable, use the CHG (chlorhexidine gluconate) soap. Place clean linens on your bed after showering and put on freshly laundered nightclothes. Do not allow pets to sleep in your bed What should I bring to the hospital? Eyeglass or contact lens case If you will be spending the night, please bring personal care items and leave them in the car untilyou are taken to your room after surgery. Leave ALL valuables at home. If any of these instructions conflict with those you received from the surgeon, please seek clarification from your surgeon's office. DEEP BREATHING EXERCISES This exercise helps promote good air exchange and helps to prevent pneumonia after surgery. Breathe in slowly and deeply through the nose. Hold your breath for a few seconds and then exhale slowly through the mouth. Repeat this three times and then cough.Coughing helps to clear your lungs. If you have had a surgery with an incision into your abdomen or chest, press gently against your incision with a pillow or a folded blanket when you cough. Please be aware - it may not be sainz to cough following some types of surgeries involving the eyes,ears, sinuses and throat. Always follow your doctor's instructions. LEG EXERCISE These exercises help promote good circulation and help to prevent blood clots after surgery. Point your toes to the ceiling and then point them to the wall. Do this slowly about 15-20 times. You may also move your feet in circles. Do the exercise that is most comfortable for you. If you have had surgery involving your shoulder or arm, we recommend you move your fingers. PRACTICING We ask that you begin practicing these exercises before your surgery. After surgery try to do both exercises at least every 2 hours during the day and early evening. Surgical Site Infection Prevention What is a Surgical Site Infection (SSI)? Infection can happen to the area of the body where surgery is done. This is called a surgical site infection (SSI). A SSI does not happen very often. What are some of the things that hospitals are doing to prevent SSIs? Soap and water or alcohol hand rub are used before and after caring for each patient. Special soap is used to clean surgery workers hands and arms just before the surgery. Masks, gowns, gloves and hair covers are worn during the surgery to keep the area clean. Hair in the surgery area may be removed with clippers (not razors). A special soap that kills germs is used to clean the skin at the surgery site. Antibiotics may be given before the surgery starts. What can you do to prevent SSIs? Before surgery: You may be asked to shower or bathe with a special soap that kills germs the night before and the day of surgery. Use the soap as you were told. Place clean sheets on your bed the night before surgery and do not allow your pets in your bed. If you smoke or vape, stop or cut down. This creates a stress response in your body that increases inflammation, constricts blood vessels and deprives your tissues of oxygen. After surgery, this stress response disrupts the travel of oxygen, nutrients, and blood to your surgical site, interfering with the wound healing process. It also decreases the ability of your cells to fight infection. Ask your doctor about ways to quit. If you have high blood sugars or diabetes please talk with your doctor about having healthy blood sugar levels to promote healing. Do not shave near where you will have surgery. Shaving can irritate the skin and make it easier to get and infection. After surgery: Be sure that the doctors and nurses clean their hands before and after touching you. Be sure your family and friends clean their hands before and after visiting you. Do not be afraid to remind them. Always wash your hands before touching your incisional area. * Care for your wound at home as told by your doctor or nurse * Call your doctor right away if you have fever, redness, increased pain, or drainage at the surgery site. Can SSIs be treated? Antibiotics are used to treat SSI. Some patients may need another surgery to treat the infection. The doctor will discuss treatment options with you. Further questions? Contact the doctor, nurse or the Infection Prevention and Control department if you have any questions. PATIENT RIGHTS AND RESPONSIBILITIES As a patient at [facility], you have the right to: Receive medical care and be informed of who is taking care of you Be treated with dignity and respect Have a family member/hotel services sales representative of choice and your physician notified of your admission Receive information and actively participate in decisions about your care and treatment Refuse care, treatment and services Decide who may provide your support and speak for you Access yarsani and spiritual services Participate in ethical issues and questions about your care Receive private and confidential care Have appropriate assessment and management of your pain Know guest visitation restrictions or limitations Have an advance directive Access protective services Consent or refuse to participate in research studies or production or recordings, films or other images Have resolution of your complaints Receive information of hospital charges and payment methods Patient/patient hotel services sales representative responsibilities are to: Provide information about health status to facilitate care, treatment and services Follow the treatment, plan, keep appointments and speak up when you do not understand the plan Respect the rights of other patients and healthcare personnel Follow organizational rules and regulations that support quality care and a safe environment Fulfill financial obligations as promptly as possible Bathing Before Surgery- Patients greater than 2 months of age You can help to lower your chance of infection at the site of your surgery by showering or bathing with a special soap called chlorhexidine gluconate (CHG). Germs live on your skin. This special soapwill help lower the amount of germs so they do not get into your surgery site. Special points to know: Do not use this soap if you know that you are allergic to CHG. Shower or bathe with CHG the night before and the morning of surgery. Do not shave the area of your body where the surgery will be done within 7 days of surgery. The CHG may make your skin a little dry, but do not use lotion. Steps for Bathing: Wash your hair as usual with your normal shampoo. Rinse your hair and body well after you shampoo to get rid all of the shampoo. Wash gently with the CHG from the neck down, but do not scrub the skin to hard. Be sure to wash thearea of your surgery very well. If showering, turn the water off while washing and then turn the water back onto rinse. Do not get CHG in the genital (private) area. Do not get CHG in the eyes, ears, nose or mouth. (If the soap gets into the eyes, flush them immediately with water). Do not wash with regular soap after CHG is used. Pat skin dry with a soft, clean towel. Patient should sleep in freshly laundered night clothes and report for surgery in clean clothes. Place freshly laundered linens on your bed after bathing with wipes or soap. Do not allow pets in your bed documented in this encounter Plan of Treatment DateTypeDepartmentCare Team (Latest Contact Info)Npshbskzuhq40/08/2026 7:30 AM ESTHospital Encounter [facility] [address] [place] [phone] Gualberto Padilla MD [address] [place] [address], [address] [place], [place] [phone] 03/21/2025 7:30 AM EST - 03/21/2025 9:15 AM ESTSurgery [facility] [address] [place] [address]. [place] [phone] Gualberto Padilla MD [address] [place] [address], [address] [place] [address] DAVINCI XCLLKVDKYLSL19/15/2026 11:30 AM ESTTelemedicine [facility] Gynecology Oncology, A Department of [address] [place] [phone] Honey Dumont PA [address] [place] [address], [facility] [address] [place] [phone] NamePriorityAssociated DiagnosesDate/TimeDAVINCI OOPHORECTOMY ENDOMETRIOSIS, PELVIC PAIN 03/21/2025 7:30 AM ESTCYSTOSCOPY ENDOMETRIOSIS, PELVIC PAIN 03/21/2025 7:30 AM ESTdocumented as of this encounter Goals GoalPatient Goal TypeAssociated ProblemsRecent ProgressPatient-Stated?Author Autogenerated Goal Care PlanAutogenerated ProblemNoCamShana plascencia Adocumented as of this encounter Procedures Procedure NamePriorityDate/TimeAssociated DiagnosisCommentsCBC WITH AUTO ICQKGEGUVURHLgplrwy00/29/2025 3:16 PM EST Pelvic pain Preop testing Endometriosis COMPREHENSIVE METABOLIC FPXNDLwfyrlm83/29/2025 3:16 PM EST Pelvic pain Preop testing Endometriosis ECG 12-YESOZyslabl91/29/2025 3:13 PM EST Pelvic pain Preop testing Endometriosis documented in this encounter Results * Comprehensive metabolic panel (03/11/2025 3:16 PM EST)ComponentValueRef Range Test MethodAnalysis TimePerformed AtPathologist KtjzclgseHHMXDY787129 - 146 mmol/L1 6:27 PM [facility] LABORATORYPOTASSIUM3.93.5 - 5.0 mmol/L1 6:27 PM [facility] LABORATORYCHLORIDE 30769 - 109 mmol/L1 6:27 PM [facility] CARBON TQVMBPK7620 - 32 mmol/L1 6:27 PM [facility] LABORATORYANION PZF747 - 15 mmol/L1 6:27 PM [facility] LABORATORYBLOOD UREA JIBDGVST287 - 23 mg/dL03/11/2025 6:27 PM [facility] LABORATORYCREATININE0.720.40 - 1.00 mg/dL03/11/2025 6:27 PM [facility] LABORATORYComment:METHOD TRACEABLE TO IDWV NFSPKCPOMNEOWSU8451 - 99 mg/dL03/11/2025 6:27 PM [facility] LABORATORYCALCIUM9.28.5 - 10.5 mg/dL03/11/2025 6:27 PM [facility] LABORATORYTOTAL PROTEIN7.46.0 - 8.0 g/dL03/11/2025 6:27 PM [facility] LABORATORYALBUMIN4.43.2 - 5.3 g/dL03/11/2025 6:27 PM [facility] LABORATORYALKALINE NPGLANPDROJ2247 - 130 U/L 03/11/2025 6:27 PM [facility] IZFCWGXZCMSHR47<=41 U/L 03/11/2025 6:27 PM [facility] FLUBXVKNULNAV25<=31 U/L 03/11/2025 6:27 PM [facility] LABORATORYBILIRUBIN,TOTAL0.50.3 - 1.2 mg/dL03/11/2025 6:27 PM [facility] LABOR[facility]ORYEGFR Non- Race Dependent>90>=60 ml/min/1.73sq.m1 6:27 PM [facility] LABORATORYComment: Reported eGFR is based on the CKD-EPI 2020 equation that does not use a race coefficient. Specimen (Source)Anatomical Location / LateralityCollection Method / Volume Collection TimeReceived TimeBloodVenous blood / UnknownVenipuncture / Unknown 03/11/2025 3:16 PM EST03/11/2025 3:17 PM EST Narrative Authorizing ProviderResult TypeResult StatusAdam Jocelyne Padilla MDLAB BLOOD ORDERABLES Final ResultPerforming OrganizationAddressCity/State/ZIP CodePhone Number [facility] [address] [place] [address], [place] [phone] * CBC with auto diff (03/11/2025 3:16 PM EST)ComponentValueRef RangeTest Method Analysis TimePerformed AtPathologist NxinspzsmUQP76.14 - 11 10^9/L1 6:12 PM [facility] LABORATORYRBC Count5.013.8 - 5.2 10^12/L 03/11/2025 6:12 PM [facility] UKIVFQOLZYJjpwnxpmhd55.511.7 - 15.5 g/dL03/11/2025 6:12 PM [facility] LABORATORYHematocrit 40.135 - 47 %03/11/2025 6:12 PM [facility] JNKKPRGLVQVHG3756 - 100 fL03/11/2025 6:12 PM [facility] CXJNKPVUFLUXZ31.027 - 34 pg03/11/2025 6:12 PM [facility] SMENEHMHEGVFNY80.732 - 36 g/dL03/11/2025 6:12 PM [facility] FCFUGZRGMLHDS51.711.5 - 15 %03/11/2025 6:12 PM [facility] LABORATORYPlatelet Vtfcl217246 - 450 10^9/L1 6:12 PM [facility] LABORATORYMPV7.77 - 12 fL03/11/2025 6:12 PM [facility] LABORATORYNeutrophils % 65.2%03/11/2025 6:12 PM [facility] LABORATORYLymphocytes % 25.8%03/11/2025 6:12 PM [facility] LABOR[facility]ORYMonocytes %6.3% 03/11/2025 6:12 PM [facility] LABORATORYEosinophils %1.9% 03/11/2025 6:12 PM [facility] LABORATORYBasophils %0.8% 03/11/2025 6:12 PM [facility] LABORATORYNeutrophils Absolute (A)6.61.5 - 6.6 10^9/L1 6:12 PM [facility] LABORATORYLymphocytes Absolute2.61.0 - 3.5 10^9/03/11/2025 6:12 PM [facility] LABORATORYMonocytes Absolute0.60.0 - 0.9 10^9/L1 6:12 PM [facility] LABORATORYEosinophils Absolute0.20.0 - 0.4 10^9/03/11/2025 6:12 PM [facility] LABORATORYBasophils Absolute0.10.0 - 0.2 10^9/L1 6:12 PM [facility] LABORATORYDifferential TypeAUTOMATED STCXKQITRXLI38/29/2025 6:12 PM [facility] LABORATORYSpecimen (Source)Anatomical Location / Laterality Collection Method / VolumeCollection TimeReceived TimeBloodVenous blood / UnknownVenipuncture / Tflcadc7303/11/2025 3:16 PM EST03/11/2025 3:17 PM EST Narrative Authorizing ProviderResult TypeResult StatusGualberto CARVALHO BLOOD ORDERABLES Final ResultPerforming OrganizationAddressCity/State/ZIP CodePhone Number [facility] [address] [place] [address], * ECG 12 lead (03/11/2025 3:13 PM EST)Specimen (Source)Anatomical Location / LateralityCollection Method / VolumeCollection TimeReceived Time03/11/2025 3:13 PM EST Narrative TRACEMASTERVUE - 03/11/2025 5:08 PM EST Authorizing ProviderResult TypeResult StatusGualberto ESPITIAG ORDERABLESFinal ResultPerforming OrganizationAddressCity/State/ZIP CodePhone Number TRACEMASTERVUE documented in this encounter Visit Diagnoses Diagnosis Pelvic pain Preop testing Unspecified pre-operative examination Endometriosis Endometriosis, site unspecified documented in this encounter Additional Health Concerns Active ProblemsNoted DateDiagnosed DateAutogenerated Biopfoq2202/06/2025documented as of this encounter Care Teams Team MemberRelationshipSpecialtyStart DateEnd Date Saniya Mays APRN-[employer] MECH[employer]IC [address] [place] [address] PCP - GeneralNurse Teexkfwcpwju19/29/25documented as of this encounter
--- OUTSIDE RECORDS SUMMARY | 2025-03-13 08:10 | XMS_ITS | Encounter Summary ---
Author Organization [facility] Address [address] [facility] [place] [address] Care Team Providers Care Loading Machine Adjuster Name Role Phone Aminta Piper MD Primary Care Provider [phone] Encounter Details DateTypeDepartmentCare Team (Latest Contact Info)Wofjkzxuesp33/29/2025Telephone [facility] [address] [place] [address] [place] [address] Laney Chow LPN Social History Tobacco UseTypesPacks/DayYears UsedDateSmoking Tobacco: NeverAlcohol UseStandard Drinks/WeekCommentsNot Currently0 (1 standard drink = 0.6 oz pure alcohol) occasional: drinks wine & beerCommentsNoSex and Gender InformationValue Date RecordedSex Assigned at StuwcSbbmlp22/17/2023 7:35 AM EDTLegal SexFemale 05/26/2022 7:11 PM EDTGender FjboaqkgPqtjek44/17/2023 7:35 AM EDTSexual OrientationNot on filedocumented as of this encounter Miscellaneous Notes * Telephone Encounter - Laney Chow LPN - 03/11/2025 4:07 PM EST Patient request TSH labs be sent to [facility] to have drawn--Laney Humphrey LPN documented in this encounter Plan of Treatment NameTypePriorityAssociated DiagnosesOrder ScheduleTSHLabRoutine Low TSH level Expected: 03/11/2025 (Approximate), Expires: 03/11/2026T4, freeLabRoutine Low TSH level Expected: 03/11/2025 (Approximate), Expires: 03/11/2026T3, reverseLabRoutine Low TSH level Expected: 03/11/2025 (Approximate), Expires: 03/11/2026T3, freeLabRoutine Low TSH level Expected: 03/11/2025 (Approximate), Expires: 03/11/20268281W4OhtBovwaza Low TSH level Expected: 03/11/2025, Expires: 03/11/2026documented as of this encounter Visit Diagnoses Diagnosis Low TSH level documented in this encounter Care Teams Team MemberRelationshipSpecialtyStart DateEnd Date Aminta Piper MD [address] [place] [phone] PCP - GeneralFamily Medicine09/27/22documented as of this encounter
--- OUTSIDE RECORDS SUMMARY | 2025-03-13 08:10 | XMS_ITS | Encounter Summary ---
Author Organization [facility] tem Address [id number] [place] [address] Care Team Providers Care Document Control Coordinator Name Role Phone BipinSaniya ding JUSTICE Primary Care Provid er Encounter Details DateTypeDepartmentCare Team (Latest Contact Info)Vhnpkgyfyvp08/29/2025Travel Social History Tobacco UseTypesPacks/DayYears UsedDateSmoking Tobacco: NeverSmokeless Tobacco: NeverAlcohol UseStandard Drinks/WeekCommentsYes0 (1 standard drink = 0.6 oz pure alcohol)occChildcareAnswerDate DifulbvtOgmljausvUjymcrm13/10/2019Employment AnswerDate JicddokfBnrnkxsieuOgtbrkx10/10/2019Hunger ScreeningAnswerDate RecordedWithin the past 12 months we worried whether our food would run out before we got money to buy more.Never True03/11/2025Within the past 12 months the food we bought just didn't last and we didn't have money to get more.Never True03/11/2025CommentsNoSex and Gender InformationValueDate RecordedSex Assigned at BirthNot on fileLegal RkcApaibg21/04/2015 12:47 PM EDTGender IdentityNot on fileSexual OrientationNot on filedocumented as of this encounter Plan of Treatment DateTypeDepartmentCare Team (Latest Contact Info)Rwkgtyczlll39/08/2026 7:30 AM ESTHospital Encounter [facility] - Surgery [address] [place] [phone] Gualberto Padilla MD [address] [facility] [place] [address] 03/21/2025 7:30 AM EST - 03/21/2025 9:15 AM ESTSurgery [facility] - Surgery [facility] [place] [address] Gualberto Padilla MD [address] [facility], [address] [place], [place] [address] DAVINCI BSTWMNOTERMH66/15/2026 11:30 AM ESTTelemedicine [facility] Gynecology Oncology, A Department of [address] [place] [address] Honey Dumont PA [address] [facility] [place] [phone] NamePriorityAssociated DiagnosesDate/TimeDAVINCI OOPHORECTOMY ENDOMETRIOSIS, PELVIC PAIN 03/21/2025 7:30 AM ESTCYSTOSCOPY ENDOMETRIOSIS, PELVIC PAIN 03/21/2025 7:30 AM ESTdocumented as of this encounter Goals GoalPatient Goal TypeAssociated ProblemsRecent ProgressPatient-Stated?Author Autogenerated Goal Care PlanAutogenerated ProblemNoShana Persaud Adocumented as of this encounter Visit Diagnoses Not on filedocumented in this encounter Additional Health Concerns Active ProblemsNoted DateDiagnosed DateAutogenerated Xkjnqfj1702/06/2025documented as of this encounter Care Teams Team MemberRelationshipSpecialtyStart DateEnd Date Saniya Mays APRN-TEST DEVELOPMENT ENGINEER [address] [facility] [address] PCP - GeneralNurse Xgsdlckndays30/29/25documented as of this encounter
--- OUTSIDE RECORDS SUMMARY | 2025-03-13 08:10 | XMS_ITS | Clinical Summary ---
Author Organization [facility] Address [address] [place] [address] Care Team Providers Care Mortgage Loan Reviewer Name Role Phone Aminta Piper MD Primary Care Provider [phone] Allergies Active AllergyReactionsCriticalityNoted DateCommentsAzithromycinRashLow 6480AlbqsyfloexAebvMxs30/13/0398Aiicade-Uyctpk-Pqlkl PertussisSwelling 09/23/2022Tetanus-Diphtheria Toxoids DjPtsvz6707/12/2024 Medications MedicationSigDispense QuantityRefillsLast FilledStart DateEnd DateStatus liothyronine (Cytomel) 5 MCG tablet Indications:Hypothyroidism, unspecifiedTAKE 1 TABLET BY MOUTH DAILY. 90 tablet 5Active tamsulosin (Flomax) 0.4 MG 24 hr capsule Take 0.4 mg by mouth DailyActive ibuprofen 800 MG tablet Indications:Pelvic painTAKE 1 TABLET BY MOUTH EVERY 8 HOURS NEEDED FOR MILD PAIN 60 tablet 5Active fluconazole (Diflucan) 150 MG tablet Indications:Yeast infectionTAKE 1 TABLET BY MOUTH FOR ONE SINGLE DOSE 1 tablet 5Active phentermine (Adipex-P) 37.5 MG tablet Indications:Encounter for weight loss counselingTake 1 tablet (37.5 mg) by mouth in the morning. Take before meals. 30 tablet 5Active metFORMIN XR (Glucophage-XR) 500 MG 24 hr tablet Indications:Insulin resistanceTake 2 tablets (1,000 mg) by mouth in the evening. Take with meals Do not crush, chew, or split. 60 tablet 11010/09/9082236Active estradiol (Climara) 0.025 MG/24HR Indications:Hormone imbalancePlace 1 patch over 7 days on the skin 1 (one) time per week 12 patch 309509/ctive levothyroxine (Synthroid, Levoxyl) 175 MCG tablet Indications:Hypothyroidism, unspecified typeTAKE 1 TABLET (175 MCG) BY MOUTH IN THE MORNING. TAKE BEFORE MEALS. 30 tablet 312504/ctive levothyroxine (Synthroid) 175 MCG tablet Indications:Hypothyroidism, unspecified typeTake 1 tablet (175 mcg) by mouth in the morning. Take before meals. 30 tablet 11051Discontinued Active Problems ProblemNoted DateDiagnosed QaklUtboqriimxvvkf68/15/2025ute postoperative pain 08/14/2024Postoperative follow-up08/14/2024 Encounters DateTypeDepartmentCare FrgxNqzoppwufyp99/29/2025Telephone [facility] [address] [place] [address] Laney Chow LPN 03/10/2025Refill [facility] [address] [place] [address] Brent Roland DO Hypothyroidism, unspecified type02/20/2025Telephone [facility] [address] [place] [address] Leatha Blair LPN Error (VOID this visit)01/07/2025Telephone [facility] [address] [place] [address] Laney Chow LPN 12/26/2024Telephone [facility] [address] [place] [address] Brent Roland DO from Last 3 Months Family History Medical HistoryRelationNameCommentsHyperlipidemiaFatherHypertensionFather HypertensionMaternal GrandfatherCancerMaternal GrandmotherCervical cancer Maternal GrandmotherHyperlipidemiaMaternal GrandmotherHypertensionMaternal GrandmotherThroat cancerMaternal GrandmotherThyroid cancerMaternal Grandmother Thyroid diseaseMaternal GrandmotherHypertensionMotherCancerPaternal Grandfather LeukemiaPaternal GrandfatherCancerPaternal GrandmotherHypertensionPaternal GrandmotherThyroid cancerPaternal GrandmotherThyroid diseasePaternal Grandmother RelationNameStatusCommentsBrother 1AliveBrother 2AliveDaughterAliveFatherAlive Maternal GrandfatherAliveMaternal GrandmotherAliveMotherAlivePaternal GrandfatherDeceasedPaternal GrandmotherAliveSonAlive Social History Tobacco UseTypesPacks/DayYears UsedDateSmoking Tobacco: Never Tobacco Cessation:Counseling Given: Not Answered Alcohol UseStandard Drinks/WeekCommentsNot Currently0 (1 standard drink = 0.6 oz pure alcohol)occasional: drinks wine & beerCommentsNoSex and Gender InformationValueDate RecordedSex Assigned at EelstYuldis96/17/2023 7:35 AM EDT Legal ZhxVxxbwc87/15/2023 7:11 PM EDTGender IhqanqyvBkmobl67/17/2023 7:35 AM EDT Sexual OrientationNot on file Last Filed Vital Signs Vital SignReadingTime TakenCommentsBlood Ccjbcmvj512/8210/09/2024 1:09 PM EDT Uhgnq6735 2:48 PM EDTTemperature--Respiratory Rboy7944 2:48 PM EDTOxygen Ytovyopwtc93%06/21/2023 2:48 PM EDTInhaled Oxygen Concentration-- [place]24.8 kg (215 lb 8 oz)10/09/2024 1:09 PM WEFAstegs272.8 cm (5' 10 ) 06/21/2023 2:48 PM EDTBody Mass Index30.9206/21/2023 2:48 PM EDT Plan of Treatment Health MaintenanceDue DateLast DoneCommentsHPV/Aapsvg7506/10/2019Influenza Vaccine (#1)5Cervical Cancer Teszaslim89/29/2028Pap Smear8010/09/2024, 3Pneumococcal Vaccine: Pediatrics (0 to 5 Years) and At-Risk Patients (6 to 64 Years)Aged OutNo longer eligible based on patient's age to complete this topic Procedures Procedure NamePriorityDate/TimeAssociated DiagnosisCommentsPAP SMEARRoutine 10/09/2024 12:00 AM EDTfrom Last 3 Months or Most Recently Relevant to Health Maintenance Results * Pap Smear (10/09/2024 12:00 AM EDT)Specimen (Source)Anatomical Location / LateralityCollection Method / VolumeCollection TimeReceived TimeSwabCervical swab / Unknown Narrative Authorizing ProviderResult TypeResult StatusCorey Asuncion DOLAB CYTOLOGY ORDERABLESFinal ResultPerforming OrganizationAddressCity/State/ZIP CodePhone Number EXTERNAL LAB from Last 3 Months or Most Recently Relevant to Health Maintenance Insurance * Guarantor: Karlene Alfaro TypeRelation to PatientDate of PhoneBilling AddressPersonal/NaxxvyNuzk03/29/[address] [address] Care Teams Team MemberRelationshipSpecialtyStart DateEnd Date Aminta Piper MD [address] [place] [address] PCP - GeneralFamily Medicine09/27/22
--- OUTSIDE RECORDS SUMMARY | 2025-03-13 08:10 | XMS_ITS | Clinical Summary ---
Author Organization [facility] Address [id number] [place] [address] Care Team Providers Care Clearance Center Manager Name Role Phone Saniya Mays Primary Care Provid er Allergies Active AllergyReactionsCriticalityNoted DateCommentsClindamycinHives,RashLow 09/23/2022 Onset Date: 03/14/2019 Rash Diphtheria,Pertussis(Acell),Tetanus Pedi BfyjtlmMdozcizbVfl60/13/2023Dtap-Ipv Component 1 Of 2 (Pf)Other (See Comments)Low11/20/2024 Hives; Rash; Welt Medications MedicationSigDispense QuantityRefillsLast FilledStart DateEnd DateStatus levothyroxine (SYNTHROID, LEVOTHROID) 175 MCG tablet Daily5Active metFORMIN XR (GLUCOPHAGE XR) 500 mg 24 hr tablet Indications:polycystic ovarian syndromeTake 2 tablets (1,000 mg total) by mouth nightly Indications: polycystic ovarian syndrome, a disease with cysts in the ovaries.506Active progesterone (PROMETRIUM) 100 mg capsule Daily5Active estradioL (CLIMARA) 0.025 mg/24 hr every week5Active ibuprofen (MOTRIN) 800 mg tablet TAKE 1 TABLET BY MOUTH EVERY 8 HOURS NEEDED FOR MILD PAIN5Active ferrous sulfate (IRON) 325 (65 FE) MG tablet Take 1 tablet (325 mg total) by mouth daily with breakfast.Active cholecalciferol, vitamin D3, (VITAMIN D3) 5,000 units capsule Take 1 capsule (5,000 Units total) by mouth in the morning.Active phentermine (ADIPEX-P) 37.5 mg tablet TAKE 1 TABLET DAILY FOR 30 DAYS MUST ADMINISTER 30 MINUTES BEFORE OR 1-2 HOURS AFTER DKQTKROSE87/29/2025Discontinued(Therapy completed) Active Problems ProblemNoted DateDiagnosed DatePelvic pain01/30/2025 Encounters DateTypeDepartmentCare JfmtFilovftpzza84/29/2025 2:45 PM ESTProcedure [facility] [address] [address] Pelvic pain; Preop testing; Tkpqwpiwmybhk53/29/3389Cactvy35/26/2025Orders Only [facility] Gynecology Oncology, A Department of [facility] [address] [place] [address] Gualberto Padilla MD Pelvic pain (Primary Dx); Preop testing; Byfryhbrejeeb76/24/2025Telephone [facility] Gynecology Oncology, A Department of [facility] [address] [place] [address] Gualberto Padilla MD Kaufbnpfq59/20/2025Telephone [facility] Physicians Genito[facility]Ur[facility] Surgeons [address] [place] [address] Ana Maria Moulton MD 01/30/2025 9:00 AM ESTOffice Visit [facility] Gynecology Oncology, A Department of [facility] [address] [place] [address] Gualberto Padilla MD Pelvic pain (Primary Dx)01/30/2025Travelfrom Last 3 Months Family History Medical HistoryRelationNameCommentsAnesthesia problemsNeg Hx Social History Tobacco UseTypesPacks/DayYears UsedDateSmoking Tobacco: NeverSmokeless Tobacco: Never Tobacco Cessation:Counseling Given: Not Answered Alcohol UseStandard Drinks/WeekCommentsYes0 (1 standard drink = 0.6 oz pure alcohol)occChildcareAnswerDate VlxpbmwuWgqjaeyovPlkybdx51/10/2019Employment AnswerDate ZlxozainWnbzwhasmfSmmtbxq11/10/2019Hunger ScreeningAnswerDate RecordedWithin the past 12 months we worried whether our food would run out before we got money to buy more.Never True03/11/2025Within the past 12 months the food we bought just didn't last and we didn't have money to get more.Never True03/11/2025CommentsNoSex and Gender InformationValueDate RecordedSex Assigned at BirthNot on fileLegal TfiXsrxto64/04/2015 12:47 PM EDTGender IdentityNot on fileSexual OrientationNot on file Last Filed Vital Signs Vital SignReadingTime TakenCommentsBlood Lfhunsuc145/7603/11/2025 3:04 PM EST Mmiug02146/29/2025 3:04 PM QSMRksfmwnzfmc61 ??C (98.6 ??F)03/11/2025 3:04 PM EST Respiratory Lrkt2965 3:04 PM ESTOxygen Tmzyhhyies51%03/11/2025 3:04 PM ESTInhaled Oxygen Concentration--Ppoflp33.4 kg (214 lb 11.7 oz)03/11/2025 2:59 PM YIUJooflf555.8 cm (5' 10 )03/11/2025 2:59 PM ESTBody Mass Index30.81 03/11/2025 2:59 PM EST Plan of Treatment DateTypeDepartmentCare Team (Latest Contact Info)Nmotlbplldz98/08/2026 7:30 AM ESTHospital Encounter [address] [address] Gualberto Padilla MD [address] [place] [address], [address] [place] [address] 03/21/2025 7:30 AM EST - 03/21/2025 9:15 [address] [address] Gualberto Padilla MD [address] [place] [address], [address] [place] [address] DAVINCI QFGQHFCEPKBO98/15/2026 11:30 AM ESTTelemedicine [facility] Oncology, A Department of [facility] [address] [place] [address] Honey Dumont PA [address] [place] [address] NamePriorityAssociated DiagnosesDate/TimeDAVINCI OOPHORECTOMY ENDOMETRIOSIS, PELVIC PAIN 03/21/2025 7:30 AM ESTCYSTOSCOPY ENDOMETRIOSIS, PELVIC PAIN 03/21/2025 7:30 AM ESTHealth MaintenanceDue DateLast DoneCommentsDepression Yafkslvyh81/29/2002Adult BMI Follow Up Plan06/10/2007DTaP,Tdap and Td Vaccines (1 - Tdap)2008COVID-19 Vaccine (3 - season)502/09/2021, 08/14/2020Influenza Xbfbkgr6811/12/2024dult BMI Akgtpewvc44/ Tobacco Uubkjvdcz14/Pap Smear Goals GoalPatient Goal TypeAssociated ProblemsRecent ProgressPatient-Stated?Author Autogenerated Goal Care PlanAutogenerated ProblemNoCammitchellShana mc [employer] Not on file Procedures Procedure NamePriorityDate/TimeAssociated DiagnosisCommentsCOMPREHENSIVE METABOLIC WCCRCUwrbwrq03/29/2025 3:16 PM EST Pelvic pain Preop testing Endometriosis CBC WITH AUTO BKWMBYOFMCTXHjtnkkh72/29/2025 3:16 PM EST Pelvic pain Preop testing Endometriosis ECG 12-WCYIDbfmfuv05/29/2025 3:13 PM EST Pelvic pain Preop testing Endometriosis from Last 3 Months Results * CBC with auto diff (03/11/2025 3:16 PM EST)ComponentValueRef RangeTest Method Analysis TimePerformed AtPathologist DubftigwxUTK47.14 - 11 10^9/L1 6:12 PM [facility] LABORATORYRBC Count5.013.8 - 5.2 10^12/L 03/11/2025 6:12 PM [facility] IMVPOVEERPRqrjraydmu58.511.7 - 15.5 g/dL03/11/2025 6:12 PM [facility] LABORATORYHematocrit 40.135 - 47 %03/11/2025 6:12 PM [facility] DLLAOVGMDFFCY0931 - 100 fL03/11/2025 6:12 PM [facility] JFMRDIGIRPFZX30.027 - 34 pg03/11/2025 6:12 PM [facility] PCEXAIOZQNQCOP12.732 - 36 g/dL03/11/2025 6:12 PM [facility] OVRFOGFNCTOHI45.711.5 - 15 %03/11/2025 6:12 PM [facility] LABORATORYPlatelet Esmiu874639 - 450 10^9L1 6:12 PM [facility] LABORATORYMPV7.77 - 12 fL03/11/2025 6:12 PM [facility] LABORATORYNeutrophils % 65.2%03/11/2025 6:12 PM [facility] LABORATORYLymphocytes % 25.8%03/11/2025 6:12 PM [facility] LABORATORYMonocytes %6.3% 03/11/2025 6:12 PM [facility] LABORATORYEosinophils %1.9% 03/11/2025 6:12 PM [facility] LABORATORYBasophils %0.8% 03/11/2025 6:12 PM [facility] LABORATORYNeutrophils Absolute (A)6.61.5 - 6.6 10^9/L1 6:12 PM [facility] LABORATORYLymphocytes Absolute2.61.0 - 3.5 10^9/L1 6:12 PM [facility] LABORATORYMonocytes Absolute0.60.0 - 0.9 10^9/L1 6:12 PM [facility] LABORATORYEosinophils Absolute0.20.0 - 0.4 10^9/L1 6:12 PM [facility] LABORATORYBasophils Absolute0.10.0 - 0.2 10^9/L1 6:12 PM [facility] LABORATORYDifferential TypeAUTOMATED FHMMSJULODRD43/29/2025 6:12 PM [facility] LABORATORYSpecimen (Source)Anatomical Location / Laterality Collection Method / VolumeCollection TimeReceived TimeBloodVenous blood / UnknownVenipuncture / Ufqwgna4803/11/2025 3:16 PM EST03/11/2025 3:17 PM EST Narrative Authorizing ProviderResult TypeResult StatusAdam Jocelyne Padilla MDLAB BLOOD ORDERABLES Final ResultPerforming OrganizationAddressCity/State/ZIP CodePhone Number [facility] [address] [place] [address], * Comprehensive metabolic panel (03/11/2025 3:16 PM EST)ComponentValueRef Range Test MethodAnalysis TimePerformed AtPathologist QsxzforswFAJGBA491157 - 146 mmol/L1 6:27 PM [facility] LABORATORYPOTASSIUM3.93.5 - 5.0 mmol/L1 6:27 PM [facility] LABORATORYCHLORIDE 75093 - 109 mmol/L1 6:27 PM [facility] CARBON RMCSKCN2096 - 32 mmol/L1 6:27 PM [facility] LABORATORYANION DYX418 - 15 mmol/L1 6:27 PM [facility] LABORATORYBLOOD UREA ETVCUSAS871 - 23 mg/dL03/11/2025 6:27 PM [facility] LABORATORYCREATININE0.720.40 - 1.00 mg/dL03/11/2025 6:27 PM [facility] LABORATORYComment:METHOD TRACEABLE TO IDMS ZSINAGRROAKCDBJ4384 - 99 mg/dL12/ 6:27 PM [facility] LABORATORYCALCIUM9.28.5 - 10.5 mg/dL03/11/2025 6:27 PM [facility] LABORATORYTOTAL PROTEIN7.46.0 - 8.0 g/dL03/11/2025 6:27 PM [facility] LABORATORYALBUMIN4.43.2 - 5.3 g/dL03/11/2025 6:27 PM [facility] LABORATORYALKALINE MLCVNGNVCTV1851 - 130 U/L 03/11/2025 6:27 PM [facility] HLRFQKEAXYRVU23<=41 U/L 03/11/2025 6:27 PM [facility] TJCJUENIVNFMR67<=31 U/L 03/11/2025 6:27 PM [facility] LABORATORYBILIRUBIN,TOTAL0.50.3 - 1.2 mg/dL03/11/2025 6:27 PM [facility] LABORATORYEGFR Non- Race Dependent>90>=60 ml/min/1.73sq.m1 6:27 PM [facility] LABORATORYComment: Reported eGFR is based on the CKD-EPI 2020 equation that does not use a race coefficient. Specimen (Source)Anatomical Location / LateralityCollection Method / Volume Collection TimeReceived TimeBloodVenous blood / UnknownVenipuncture / Unknown 03/11/2025 3:16 PM EST03/11/2025 3:17 PM EST Narrative Authorizing ProviderResult TypeResult StatusAdajason Padilla MDFRY EYE [facility] BLOOD ORDERABLES Final ResultPerforming OrganizationAddressCity/State/ZIP CodePhone Number [facility] [address] [place] [address], [place] [phone] * ECG 12 lead (03/11/2025 3:13 PM EST)Specimen (Source)Anatomical Location / LateralityCollection Method / VolumeCollection TimeReceived Time03/11/2025 3:13 PM EST Narrative TRACEMASTERVUE - 03/11/2025 5:08 PM EST Authorizing ProviderResult TypeResult StatusAdam Jocelyne ESPITIAG ORDERABLESFinal ResultPerforming OrganizationAddressCity/State/ZIP CodePhone Number TRACEMASTERVUE from Last 3 Months Additional Health Concerns Active ProblemsNoted DateDiagnosed DateAutogenerated Mgzcmro6202/06/2025 Insurance Care Teams Team MemberRelationshipSpecialtyStart DateEnd Date Saniya Mays APRN-NP [address] [place] [address] PCP - GeneralNurse Lfbizmiapytz75/29/25
--- OUTSIDE RECORDS SUMMARY | 2025-03-13 08:10 | XMS_ITS | Encounter Summary ---
Author Organization [facility] Address [address] [facility] [place] [address] Care Team Providers Care Director Education Name Role Phone Aminta Piepr MD Primary Care Provider [phone] Reason for Visit * ReasonCommentsMed Refill Encounter Details DateTypeDepartmentCare Team (Latest Contact Info)Zipetehofij50/28/2025Refill [facility] [address] [place] [address] Brent Roland DO [address] [place], [facility] Hypothyroidism, unspecified type Social History Tobacco UseTypesPacks/DayYears UsedDateSmoking Tobacco: NeverAlcohol UseStandard Drinks/WeekCommentsNot Currently0 (1 standard drink = 0.6 oz pure alcohol) occasional: drinks wine & beerCommentsNoSex and Gender InformationValue Date RecordedSex Assigned at DjnzrVusfmk78/17/2023 7:35 AM EDTLegal SexFemale 05/26/2022 7:11 PM EDTGender CtfgdbkaVadjwx85/17/2023 7:35 AM EDTSexual OrientationNot on filedocumented as of this encounter Plan of Treatment Not on file documented as of this encounter Visit Diagnoses Diagnosis Hypothyroidism, unspecified type documented in this encounter Care Teams Team MemberRelationshipSpecialtyStart DateEnd Date Aminta Piper MD [address] [place] [id number] PCP - GeneralFamily Medicine09/27/22documented as of this encounter
--- OUTSIDE RECORDS SUMMARY | 2025-03-13 08:10 | XMS_ITS | CCD ---
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 Name Role Phone Treasure Quezada Unavailable SURYA HODGES Primary Care Physician MD Surya Hodges Primary Care Provider [phone] KITA Quezada Attending Provider Surya Hodges Unavailable [...] Admit Provider MD Baljinder Polanco Attending Provider [phone] Jason Beasley Unavailable Surya Hodges MD Primary Care Provider [phone] Surya Hodges MD Primary Care Provider [phone] Surya Hodges MD Primary Care Provider Saniya Mays APRN Primary Care Provider Asuncion MERCADO, Brent Attending Provider [phone] Kamaljit Ayala MD Attending Provider Saniya Mays APRN Attending Provider CIRO ROLANDY Attending Unavailable CIRO ROLANDY Attending Unavailable YESICA MCNAIR Attending Unavailable ASUNCION, BRENT Attending Unavailable Saniya Mays APRN Primary Care Provider Asuncion , Brent Attending Provider [phone] Surya Hodges MD Primary Care Provider Kamaljit [...] Unavailable AYALA, Kamaljit R Attending Unavailable Rohrbacher Saniya VAZQUEZ Primary Care Provider Brent Roland DO Attending Provider Lucy STILES, Kamaljit Attending Provider [phone] Nato Hawkins MD Attending Provider Nato Hawkins Admitting Unavailable Michelle-Zurdo, Nato Dejeuss Attending Unavailable Rohrbacher, Saniya Primary Care Unavailable [...] of OnsetReaction(s) Facility (20 sources)Azithromycin; Translations: [azithromycin]Drug Upvdkpd99-55-7911 rash, Eruption of skin (disorder)[facility] (20 sources)whooping coughPropensity to adverse ctsnkbhqy57-53-2362kvuxyvdn injection siteMer[facility] (16 sources)Bordetella pertussis filamentous hemagglutinin vaccine, inactivated / Bordetella pertussis fimbriae2/3 vaccine, inactivated / Bordetella pertussis pertactin vaccine, inactivated / Bordetella pertussis toxoid vaccine, inactivated / diphtheria toxoid vaccine, inactivated / tetanus toxoid vaccine, inactivated; Translations: [diphtheria/pertussis, acel/tetanus adult]Drug Poosojb30-23-5774Tslxvey, Comment:vaccineExec[facility] (20 sources)Clindamycin; Translations: [clindamycin]Drug Gkfcxvl58-56-2206Ecto, HivesExecutive [facility] of [facility]'S Medical CenterComment on above: Onset Date: 03/14/2019 (2 sources)acellular pertussis vaccine, inactivated / diphtheria toxoid vaccine, inactivated / tetanus toxoid vaccine, inactivatedDrug [facility]ergyMer[facility] (2 sources)ClindamycinDrug AllergyMer[facility] (11 sources)vaccine adjuvant system, AS01B liposomalAllergy to substance 00-07-2588EwnrYxfvjootdKettering Health [facility] (17 sources)Zqcykjr-Jfewzx-Kmidt PertussisPropensity to adverse reactions 31-27-0404UouhltzlJFUQ Healthcare Work Phone: (10 sources)diphtheria,pertussis (acellular),teAllergy to hazrtqdhg00-20-1627 Comment:OhioHealthComment on above:Onset Date: 03/14/2019 (9 sources)PenicillinsAllergy to lsuvdaxbz84-23-4460HfiulBafliuqprDelaware County Hospital (11 sources)Tetanus-Diphtheria Toxoids TdDrug Eyhgjeu85-62-8278PkbmwMGYI Healthcare (4 sources)Dtap-Ipv Component 1 Of 2 (Pf); Translations: [DTAP-IPV COMPONENT 1 OF 2 (PF)]Drug Zsnuohdpedb92-07-6630PaeuabkylirTcrpqqgny Clinic (1 source)DIPHTHERIA,PERTUSSIS(ACELL),TETANUS PEDI VACCINE; Translations: [DIPHTHERIA,PERTUSSIS(ACELL),TETANUS PEDI VACCINE]Propensity to adverse reactions to drug (disorder)70-31-9220CzwsuzewyOhioHealth [facility] (1 source)TETANUS-DIPHTHERIA TOXOIDS-TD; Translations: [TETANUS-DIPHTHERIA TOXOIDS-TD]Propensity to adverse reactions to drug (disorder)52-22-8370GkexvinsuOhioHealth [facility] Medications Current Medications MedicationDrug Class(es)DatesSig (Normalized)Sig (Original)0.5 ML tirzepatide 5 MG/ML Auto-Injector [Mounjaro] (1 source)Start: 37-33-0142ftmyho 1 mg by subcutaneous injection every week Mounjaro 2.5 mg/0.5 mL subcutaneous solution mg, SubCutaneous, qWeek, Refills(s) 0 Start Date: 01/13/22 Status: Ordered Repeat number: 1acetaminophen 300 mg / codeine phosphate 30 mg oral tablet (3 sources)Opioid AgonistStart: 07-10-2024 End: 44-36-7988ytvj 1 tablet by mouth every six hours for painacetaminophen- codeine (Tylenol w/ Codeine #3) 300-30 MG tablet Indications: Pelvic pain Take 1 tablet by mouth every 6 (six) hours if needed for severe pain for up to 7 days 28 tablet 07/10/2024 07/17/2024 [id number] 60 actuat albuterol 0.09 mg/actuat metered dose inhaler (2 sources)beta2-Adrenergic AgonistStart: 37-23-0114fllo 2 puff(s) by inhalation every four hours as neededAlbuterol Sulfate HFA 108 (90 Base) MCG/ACT 2 puff Inhalation every 4 hrs prn Mar, ActiveStart: 39-01-0773txim 2 puff(s) by inhalation four times daily as neededAlbuterol Sulfate HFA 108 (90 Base) MCG/ACT 2 puffs Inhalation qid prn Mar, Activeamoxicillin 500 mg oral capsule (2 sources)Penicillin-class AntibacterialStart: 44-28-6811skqe 1 capsule by mouth every eight hoursAmoxicillin 500 MG 1 capsule Orally every 8 hrs for 7 days Mar, Activebenzonatate 200 mg oral capsule (1 source)Non-narcotic AntitussiveStart: 24-96-4677eola 1 capsule by mouth every eight hoursBenzonatate 200 MG 1 capsule Orally Three times a day for 10 day(s) Mar, Activecefdinir 300 mg oral capsule (1 source)Cephalosporin AntibacterialStart: 99-26-8972Dxetvxwy 300 MG as directed Orally bid for 7 days Mar, Activecephalexin 500 mg oral capsule (12 sources)Cephalosporin AntibacterialStart: 04-78-6683ipup 1 capsule by mouth every twelve hourscephALEXin (KEFLEX) 500 mg capsule Take 1 capsule by mouth every 12 hours. 11/15/2024 ActiveStart: 05-04-2023 End: 82-30-3722nvwv 1 capsule by mouth every eight hoursCephalexin 500 mg capsule Discontinued 500 MG PO Every 8 hours 01 10May 04, 2023 1:00am June 17, 2023 2:15pmCelexa (7 sources)Serotonin Reuptake InhibitorStart: 10-35-2724Zzzmaj Refills(s) 0 Start Date: 05/21/22 Status: Ordered Repeat number: 1Start: 06-94-9765Rmartw Refills(s) 0 Start Date: 05/21/22 Status: Ordered End: 19-31-9523qfmy 1 tablet by mouth in the morningcitalopram (CeleXA) 20 MG tablet Take 20 mg by mouth in the morning. 0 04/21/2023 Discontinued (Therapy completed)estradiol 0.5 mg oral tablet (1 source)EstrogenStart: 99-53-0049ctuy 2 tablets by mouth once dailyestradiol 0.5 mg Tab mg tab(s), Oral, Daily, Refills(s) 0 Start Date: 01/13/22 Status: Orderedfluconazole 150 mg oral tablet (20 sources)Azole AntifungalStart: 98-89-9655khvhcfdbxrp (Diflucan) 150 MG tablet Indications: Yeast infection TAKE 1 TABLET BY MOUTH FOR ONE SINGLE DOSE 1 tablet 3 10/01/2024 ActiveStart: 02-15-2024 End: 13-08-2179Owlkrxlhyri 150 mg tablet Discontinued 150 MG PO Q3D 2 February 15, 2024 1:00am May 16, 2024 11:47am Take 1st dose at onset of symptoms then repeat in 3 days if continued symptomsStart: 05-04-2023 End: 95-43-7293Hnhljaitpbl 150 mg tablet Discontinued 150 MG PO Q3D 2 May 04, 2023 1:00am June 17, 2023 2:15pmStart: 02-23-2023 End: 83-82-6487ndzy 1 tablet by mouth oncefluconazole (Diflucan) 150 MG tablet Indications: Vaginal yeast infection TAKE 1 TABLET BY MOUTH ONE TIME FOR 1 DOSE 1 tablet 02/23/2023 07/10/2024 DiscontinuedStart: 06-24-8062Dvwvwwxr 150 MG 1 tablet Orally x1 for 1 days Mar, ActiveProzac (3 sources)Serotonin Reuptake InhibitorStart: 57-22-6304Wrvdbk Oral, Daily, Refills(s) 0 Start Date: 01/13/22 Status: Ordered Repeat number: 1Start: 70-82-8405Ikwrkg Oral, Daily, Refills(s) 0 Start Date: 01/13/22 Status: Ordered furosemide 20 mg oral tablet (20 sources)Loop DiureticStart: 12-15-2023 End: 15-93-7165loom 1 tablet by mouth once dailyStart: 07-11-2023 End: 64-34-4181pmbt 1 tablet by mouth once dailyFurosemide 20 mg tablet Discontinued 20 MG PO Daily September 08, 2023 4:05pm December 15, 2023 9 :06amibuprofen 800 mg oral tablet (16 sources)Nonsteroidal Anti-inflammatory DrugStart: 07-10-2024 End: 09-81-8874tyhi 1 tablet by mouth every eight hours as needed for pain ibuprofen 800 MG tablet Indications: Pelvic pain TAKE 1 TABLET BY MOUTH EVERY 8 HOURS NEEDED FORMILD PAIN 60 tablet 3 09/03/2024 Activeiv contrast (will be provided with radiology test) (1 source)Start: 11-21-2024 End: 87-60-8056qn contrast (will be provided with radiology test) [...] sodium 0.137 mg oral capsule (20 sources)l-ThyroxineStart: 51-89-9094susy 1 tablet by mouth before mealtime levothyroxine (Synthroid, Levoxyl) 137 MCG tablet Take 137 mcg by mouth in the morning. Take beforemeals. 12/07/2022 ActiveStart: 12-01-2022 End: 37-94-5019dezy 1 capsule by mouth once dailyStart: 11-30-2022 End: 06-65-6962ihvy 1 tablet by mouth once dailyLevothyroxine 175 mcg tablet Discontinued 175 MCG PO Daily November 30, 2022 12:00am June 17, 2023 2:15pmStart: 20-69-1942Sgqwwucdy 150 mcg (0.15 mg) Tab Oral, Refills(s) 0 Start Date: 01/11/22 Status: Ordered Repeat number: 1take 1 tablet by mouth every twenty-four hoursSynthroid 137 MCG 1 tablet Orally Once a day Activetake 1 tablet by mouth every twenty-four hoursSynthroid 175 MCG 1 tablet Orally Once a day Activeliothyronine sodium 0.005 mg oral tablet (20 sources)l-TriiodothyronineStart: 90-64-0048qbyp 1 tablet by mouth once daily take 1 tablet by mouth every twenty-four hoursLiothyronine Sodium 5 MCG 1 tablet once a day Pnnkcj69 hr metFORMIN hydrochloride 500 mg extended release oral tablet (20 sources)BiguanideStart: 10-09-2024 End: 73-67-4672ggnr 2 tablets by mouth every twenty-four hours at mealtime metFORMIN XR (Glucophage-XR) 500 MG 24 hr tablet Indications: Insulin resistance Take 2 tablets (1,000 mg) by mouth in the evening. Take with meals Do not crush, chew, or split. 60 tablet 11 10/09/2024 10/09/2025 ActiveStart: 11-30-2022 End: 78-37-2193xsxu 1 tablet by mouth twice dailyMetformin 500 mg tablet extended release 24 hr Discontinued 500 MG PO Twice daily 180 90 December 01, 2022 1:05pm June 17, 2023 2:15pmStart: 10-12-2022 End: 27-50-9708nbie 1 tablet by mouth every twenty-four hours at bedtime Metformin 500 mg tablet extended release 24 hr Discontinued 500 MG PO Bedtime November 30, 2022 12:00am December 01, 2022 1:05pmmethenamine hippurate 1000 mg oral tablet (7 sources)Start: 17-92-1768kmnj 1 tablet by mouth twice dailymethenamine hippurate 1 g oral tablet 1 gm = 1 tab(s), Oral, BID, # 60 tab(s), Refills(s) 1, Pharmacy: [facility]/pharmacy #[id number] Start Date: 09/06/24 Status: Ordered Quantity: 60.0 Unit: tab(s) Repeat number: 2take 1 tablet by mouth in the morningmethenamine hippurate (Hiprex) 1 g tablet Take 1 g by mouth in the morning and 1 g before bedtime. Rogfuf09 hr mirabegron 50 mg extended release oral tablet (9 sources)beta3-Adrenergic AgonistStart: 09-06-2024 End: 45-47-0920crcd 1 tablet by mouth once dailymirabegron (MYRBETRIQ) 50 mg Tb24 Take 1 tablet by mouth once daily. 09/06/2024 ActiveMounjaro 2.5 mg/0.5 mL subcutaneous solution (2 sources)Start: 80-18-5363bsbsyn 1 mg by subcutaneous injection every week Mounjaro 2.5 mg/0.5 mL subcutaneous solution mg, SubCutaneous, qWeek, Refills(s) 0 Start Date: 01/13/22 Status: OrderedZofran (2 sources)Serotonin-3 Receptor AntagonistStart: 49-66-3782Lhmzgw Refills(s) 0 Start Date: 05/21/22 Status: Ordered Repeat number: 1Start: 83-96-9145Rkegvr Refills(s) 0 Start Date: 05/21/22 Status: Orderedphentermine hydrochloride 37.5 mg oral tablet (20 sources)Sympathomimetic Amine AnorecticStart: 10-09-2024 End: 85-25-9875bzcs 1 tablet by mouth before mealtimephentermine (Adipex-P) 37.5 MG tablet Indications: Encounter for weight loss counseling Take 1 tablet (37.5 mg) by mouth in the morning. Take before meals. 30 tablet 10/09/2024 11/08/2024 ActiveStart: 02-15-2024 End: 73-61-4121sant 1 tablet by mouth once daily 30 minutes after breakfast Phentermine (Adipex-P) 37.5 mg tablet Discontinued 37.5 MG PO Daily March 15, 2024 12:48pmFebruary 2024 3:57pm must administer 30 minutes before or 1-2 hours after breakfastStart: 40-53-5905kjkv 1 tablet by mouth once daily before breakfastAdipex-P 37.5 MG 1 tablet before breakfast Orally Once a day for 30 days Nov, ActiveStart: 02-67-9508kbtz 1 tablet by mouth once daily before breakfastAdipex-P 37.5 MG 1 tablet before breakfast Orally Once a day for 30 days Oct, ActiveStart: 62-20-0904apeh 1 tablet by mouth once daily before breakfastAdipex-P 37.5 MG 1 tablet before breakfast Orally Once a day for 30 days Sep, ActivepredniSONE 10 mg oral tablet (20 sources)Start: 11-84-2050djkc 0.5 tablet by mouth once dailyStart: 12-19-2023 End: 67-59-5813tpou 4 tablets by mouth once daily, then [...] 1 daily x 6 daysStart: 05-04-2023 End: 59-63-1183ewhc 1 tablet by mouth twice dailyPrednisone 20 mg tablet Discontinued 20 MG PO Twice daily May 04, 2023 1:00am June 17, 2023 2:15pmStart: 39-88-5845rnryymYEFR 10 MG 4 tabs po daily x 2 days, 3 tabs daily x 2 days, 2 tabs daily x 2 days, 1 tab daily x 2 days Orally Once a day for Oct, ActiveStart: 76-69-4016mnjnezYKXY 10 MG 4 tabs po daily x 2 days, 3 tabs daily x 2 days, 2 tabs daily x 2 days, 1 tab daily x 2 days Orally Once a day for Aug, ActiveStart: 59-93-0847txzz 1 tablet by mouth every twelve hourspredniSONE 20 MG 1 tablet Orally bid for 5 day(s) Mar, Qfjkgl0765 ml sodium chloride 9 mg/ml injection (1 source)Start: 11-21-2024 End: .9 % sodium chloride (NACL 0.9%) infusion Administer at rate defined per CT contrast administration specifications. To be provided with radiology test. 150 mL 11/21/2024 11/21/2024 Activetamsulosin hydrochloride 0.4 mg oral capsule (7 sources)alpha-Adrenergic BlockerStart: 50-97-8136bijp 1 capsule by mouth once dailyFlomax 0.4 mg Cap 0.4 mg = 1 cap(s), Oral, Daily, # 30 cap(s), Refills(s) 0, Pharmacy: [facility]/pharmacy#[id number] Start Date: 09/06/24 Status: Ordered Quantity: 30.0 Unit: cap(s) Repeat number: 1Tirzepatide-Weight Management (Zepbound) 2.5 MG/0.5ML solution auto-injector (2 sources)Start: 04-20-2023 End: 38-32-3251evvmfv 1 mL by subcutaneous injection every weekTirzepatide- Weight Management (Zepbound) 2.5 MG/0.5ML solution auto-injector Indications: Insulin resistance Inject 1 Pen under the skin 1 (one) time per week for 28 days 0.5 mL 3 04/20/2023 05/18/2023 ActiveStart: 04-06-2023 End: 34-36-3716edcwff 2.5 mg by subcutaneous injection every weekTirzepatide- Weight Management (Zepbound) 2.5 MG/0.5ML solution auto-injector Indications: Insulin resistance Inject 2.5 mg under the skin 1 (one) time per week 10 mL 1 04/06/2023 04/21/2023 Discontinued (Therapy completed)triamcinolone acetonide 1 mg/ml topical cream (16 sources)CorticosteroidStart: 02-84-8272Lhvue: 75-47-6700Vrusfgy-40 Sep, 60 mg24 hr venlafaxine 37.5 mg extended release oral capsule (16 sources)Serotonin and Norepinephrine Reuptake InhibitorStart: 02-23-2023 End: 26-25-6634qkos 1 capsule by mouth every twenty-four hours [...] 20 mg oral tablet (13 sources) End: 31-41-0822ikcz 1 tablet by mouth once dailyBlack Cohosh 20 MG tablet Take 1 tablet by mouth Daily 10/09/2024 Discontinuedtake 1 tablet by mouth once daily Black Cohosh 20 MG tablet Take 1 tablet by mouth Daily ActivebuPROPion hydrochloride 100 mg oral tablet (10 sources)AminoketoneStart: 12-08-2023 End: 98-36-5828pvcc 2 tablets by mouth twice dailyBupropion Hcl 100 mg tablet Discontinued 200 MG PO Twice daily 60 January 26, 2024 12:27pm February 15, 2024 2:07pm12 hr buPROPion hydrochloride 90 mg / naltrexone hydrochloride 8 mg extended release oral tablet (14 sources)Opioid Antagonist, AminoketoneStart: 10-03-2023 End: 65-55-9273dmap 2 tablets by mouth twice dailyNaltrexone-Bupropion (Contrave) 8-90 mg tablet extended release Discontinued 2 TAB PO Twice daily [facility] 2023 3:18pm December 08, 2023 8:13ambusPIRone hydrochloride 5 mg oral tablet (8 sources)Start: 06-17-2023 End: 65-45-0708uqqn 1 tablet by mouth twice daily as needed for anxietyBuspirone 5 mg tablet Discontinued 5 MG PO Twice daily as needed for anxiety June 17, 2023 12:00am September 07, 2023 1:46pmciprofloxacin 500 mg oral tablet (1 source)Quinolone AntimicrobialStart: 34-76-4830gfbe 1 tablet by mouth once dailyCipro 500 mg Tab 500 mg = 1 tab(s), Oral, Daily, Take 1 tablet the day before the procedure and 1 tablet after the procedure, # 2 tab(s), Refills(s) 0, Pharmacy: [facility]/pharmacy #[id number] Start Date: 09/11/24Status: Ordered Quantity: 2.0 Unit: tab(s) Repeat number: 1dicyclomine hydrochloride 10 mg oral capsule (14 sources)AnticholinergicStart: 07-03-2024 End: 69-21-5338zsuy 1 capsule by mouth three times daily as neededdicyclomine (Bentyl) 10 MG capsule Indications: Abdominal cramping Take 1 capsule (10 mg) by mouth 3 (three) times a day as needed (cramping) 30 capsule 1 07/03/2024 10/09/2024 Discontinueddoxycycline monohydrate 100 mg oral tablet (7 sources)Tetracycline-class DrugStart: 02-15-2024 End: 96-31-1143zjbm 1 tablet by mouth twice dailyDoxycycline Monohydrate 100 mg tablet Discontinued 100 MG PO Twice daily 31 12February 15, 2024 1:00am May 16, 2024 11:47amStart: 93-14-0345khyh 1 capsule by mouth every twelve hours Doxycycline Hyclate 100 MG 1 capsule Orally Twice a day for 5 days Feb, ActiveErgocalciferol (13 sources)Provitamin D2 Compound End: 09-02-5526nwzt 1 tablet by mouth once dailyErgocalciferol (VITAMIN D2 PO) Take 1 tablet by mouth Daily 10/09/2024 Discontinuedtake 1 tablet by mouth once dailyErgocalciferol (VITAMIN D2 PO) Take 1 tablet by mouth Daily Active methylPREDNISolone 4 mg oral tablet (20 sources)CorticosteroidStart: 08-27-2024 End: 72-67-1725plix 1 tablet by mouth onceMethylprednisolone (Medrol (Chad)) 4 mg tablets,dose pack Discontinued 0 PO per package directions August 27, 2024 12:00am September 05, 2024 8:09am PO PER PKG DIRStart: 10-10-2023 End: 97-24-7214dqdt 1 tablet by mouth onceMethylprednisolone (Medrol (Chad)) 4 mg tablets,dose pack Discontinued 0 PO per package directions 01 09December 02, 2023 11:05am December 19, 2023 11:01am PO PER PKG DIRStart: 00-72-3065UVJQ- Medrol Oct, 60 mgStart: 75-31-7554Dgidxo (Chad) 4 MG as directed Orally daily [...] oral tablet (5 sources)Opioid AntagonistStart: 12-08-2023 End: 50-92-3433hxop 1 tablet by mouth twice dailyNaltrexone 50 mg tablet Discontinued 25 MG PO Twice daily December 08, 2023 12:00am February 15, 2024 2:07pm24 hr propranolol hydrochloride 120 mg extended release oral capsule (20 sources)beta-Adrenergic BlockerStart: 07-12-2023 End: 33-84-0649mrzq 1 capsule by mouth once dailyPropranolol 120 mg capsule,extended release 24 hr Discontinued 120 MG PO Daily July 12, 2023 12:00am September 07, 2023 1:46pmStart: 12-01-2022 End: 79-94-5273pypd 1 capsule by mouth every twenty-four hours in the morning propranolol LA (Inderal LA) 120 MG 24 hr capsule Take 120 mg by mouth in the morning. 0 12/01/2022 04/21/2023 Discontinued (Therapy completed)Start: 12-01-2022 End: 14-42-4913clnk 1 capsule by mouth once dailyPropranolol 120 mg capsule,extended release 24 hr Discontinued 120 MG PO Daily December 01, 2022 12:00am June 17, 2023 2:15pmzolpidem tartrate 5 mg oral tablet (5 sources)gamma-Aminobutyric Acid-ergic AgonistStart: 08-14-2024 End: 61-53-3399hlkjiime (Ambien) 5 MG tablet Indications: Other insomnia Take 1 tablet (5 mg) by mouth as needed at bedtime for sleep for up to 20 doses 20 tablet 08/14/2024 10/09/2024 Discontinued Problems Active Problems Problem ClassificationProblemDateDocumented DateEpisodic/ChronicAbdominal pain (16 sources)Pelvic and perineal pain; Translations: [Unspecified abdominal pain] Onset: 38-21-4655DsysbjovTpnbd bronchitis (3 sources)Acute bronchitis; Translations: [Acute bronchitis due to other specified organisms]EpisodicAdministrative/social admission (2 sources)Patient encounter status; Translations: [Dietary counseling and surveillance]62-43-9478ScxrlgymFiqkidey reactions (17 sources)Unspecified contact dermatitis, unspecified cause; Translations: [Allergic contact dermatitis]EpisodicAnxiety disorders (20 sources)Anxiety; Translations: [Anxiety disorder]88-44-6284EufeirbLsrjjyia of urinary tract (14 sources)Ureteric stone; Translations: [Calculus of ureter]Onset: 05-11-2022 EpisodicCardiac dysrhythmias (1 source)Supraventricular tachycardia; Translations: [SUPRAVENTRICULAR TACHYCARDIA]Onset: 91-42-1717MagyjtjLnghuum dysrhythmias (19 sources)Tachycardia; Translations: [Tachycardia, unspecified]Onset: 077548-65-4118WvwpjhkdDmdwcgi on above:Problem List clean-up per request of [...] incontinence (female) (male); Translations: [Female stress incontinence]Onset: 94-86-3761AcdkciwNhfvzyabyupof symptoms and ill-defined conditions (3 sources)Genitourinary symptoms; Translations: [Other symptoms and signs involving the genitourinary system]EpisodicHeadache; including migraine (14 sources)Migraine without aura, not refractory ; Translations: [Other migraine, not intractable, without status migrainosus]91-12-8772Hvyhyve Inflammatory diseases of female pelvic organs (3 sources)Acute vaginitis; Translations: [Acute vaginitis]EpisodicMalaise and fatigue (7 sources)Fatigue; Translations: [Other fatigue]EpisodicMenopausal disorders (1 source)Hormone replacement therapy; Translations: [HORMONE REPLACEMENT THERAPY]Onset: 60-31-0766JazzblxeXcmdudwoe disorders (12 sources)Intermenstrual bleeding - irregular; Translations: [Excessive and frequent menstruation with irregular cycle]Onset: 11-07-2008 Resolved: 65-18-7030DjcshmgAiaawsbtvhwdi mental health disorders (3 sources)Lack or loss of sexual desire; Translations: [Hypoactive sexual desire disorder]ChronicMiscellaneous mental health disorders (3 sources)Emotional state finding; Translations: [Other symptoms and signs involving emotional state]EpisodicMood disorders (3 sources)Affective psychosis; Translations: [Unspecified mood [affective] disorder]ChronicMood disorders (7 sources)Mood swings; Translations: [Emotional lability]EpisodicNausea and vomiting (1 source)Nausea with vomiting, unspecified; Translations: [PONV (postoperative nausea and vomiting)]Onset: 43-43-6585AncngygySfnwpreshml chest pain (13 sources)Chest pain, unspecified; Translations: [Chest pain]EpisodicComment on above:Problem List clean-up per request of Phys. EHR CmteNutritional deficiencies (5 sources)Vitamin D deficiency; Translations: [Vitamin D deficiency, unspecified]22-19-7337NqpgbesUjpzmcivxni deficiencies (7 sources)Iron deficiency; Translations: [Iron deficiency]EpisodicOther aftercare (1 source)Other watermaster (current) drug therapy; Translations: [OTH [facility] CURRENT DRUG THERAPY]Onset: 03-90-6919SehqegqxLjhwk aftercare (3 sources)Long-term current use of drug therapy; Translations: [Other watermaster (current) drug therapy]EpisodicOther aftercare (3 sources)History and physical examination, follow-up; Translations: [Encounter for follow-up examination after completed treatment for conditions other than malignant neoplasm]EpisodicOther aftercare (8 sources)Surgical follow-up; Translations: [Encounter for follow-up examination after completed treatment for conditions other than malignant neoplasm]Onset: 215887-86-2419HkeqowzoNkltn circulatory disease (7 sources)Elevated blood-pressure reading without diagnosis of hypertension; Translations: [Elevated blood-pressure reading, without diagnosis of hypertension]EpisodicOther diseases of kidney and ureters (5 sources)Stricture of ureter; Translations: [Crossing vessel and stricture of ureter without hydronephrosis]Onset: 72-01-3195YlumjdtbKizxa diseases of kidney and ureters (3 sources)Hydronephrosis; Translations: [Hydronephrosis with ureteral stricture, not elsewhere classified]77-02-1920WjxatqcbVoaof diseases of kidney and ureters (2 sources)Crossing vessel and stricture of ureter without hydronephrosis; Translations: [Ureteral stricture]Onset: 75-51-6119QlwdeadvWbtap diseases of kidney and ureters (1 source)Hydronephrosis with ureteral stricture, not elsewhere classified; Translations: [Hydronephrosis with ureteral stricture, not elsewhere classified] Onset: 30-10-2282GskkwulaGklgo endocrine disorders (4 sources)Endocrine disorder, unspecified; Translations: [ENDOCRINE DISORDER UNSPECIFIED]Onset: 51-58-1281UmdxrdyfMjsqf endocrine disorders (4 sources)Disorder of endocrine system; Translations: [Endocrine disorder, unspecified]74-39-1864UmxsfxrvJnklp female genital disorders (1 source)Noninflammatory disorder of ovary, fallopian tube and broad ligament, unspecified; Translations: [OTH NONINFL D/O OVARY TUBE AND BRD LIG]Onset: 14-12-8426UrvcshuhTzzpn female genital disorders (3 sources)Noninflammatory disorder of the vagina; Translations: [Other specified noninflammatory disorders ofvagina]EpisodicOther female genital disorders (1 source)Ovarian pain; Translations: [Other specified conditions associated with female genital organs and menstrual cycle]77-35-9005OulvmiclOppkg gastrointestinal disorders (1 source)Peritoneal adhesions (postprocedural) (postinfection); Translations: [PERITONEAL ADHES POSTPROC POSTINF]Onset: 36-56-6112RtllymfnQywus inflammatory condition of skin (7 sources)Rosacea; Translations: [Other rosacea]Onset: 93-78-3063ItvacchBihdp inflammatory condition of skin (3 sources)Itching of skin; Translations: [Pruritus, unspecified]EpisodicOther injuries and conditions due to external causes (1 source)Foreign body in bladder; Translations: [Foreign body in bladder, initial encounter]Onset: 75-22-0314JyxnoumyPtnth lower respiratory disease (1 source)Dyspnea, unspecifiedEpisodicOther lower respiratory disease (1 source)Other abnormalities of breathingEpisodicOther nervous system disorders (8 sources)Acute postoperative pain; Translations: [Other acute postprocedural pain]Onset: 797850-89-3375NqtmllhpOpfal non-traumatic joint disorders (9 sources)Pain in left knee; Translations: [Left knee pain]59-13-8423Qttuqxfe Other nutritional; endocrine; and metabolic disorders (20 sources)Obesity; Translations: [Obesity, unspecified]ChronicOther nutritional; endocrine; and metabolic disorders (2 sources)Obesity, unspecified; Translations: [OBESITY UNSPECIFIED]Onset: 22-82-0774BpqvczfMfotn nutritional; endocrine; and metabolic disorders (13 sources)Obese class I; Translations: [Body mass index (BMI) 32.0-32.9, adult]97-98-2619OgnzafzFamjz nutritional; endocrine; and metabolic disorders (7 sources)Simple obesity ; Translations: [Other obesity due to excess calories] Onset: 27-87-3650UfoypweCppfz nutritional; endocrine; and metabolic disorders (3 sources)Insulin resistance; Translations: [Insulin resistance]04-21-2023 ChronicOther nutritional; endocrine; and metabolic disorders (1 source)Metabolic syndrome X; Translations: [Metabolic syndrome]04-21-2023 ChronicOther nutritional; endocrine; and metabolic disorders (16 sources)Weight gain; Translations: [Abnormal weight gain]EpisodicOther nutritional; endocrine; and metabolic disorders (1 source)Body mass index (BMI) 27.0-27.9, adult; Translations: [BODY MASS INDEX BMI 27.0-27.9 ADULT]Onset: 16-28-7191QylhhitrNlioj nutritional; endocrine; and metabolic disorders (3 sources)OverweightEpisodicOther [...] neoplasm of cervix; Translations: [Urine test negative]Onset: 75-82-7512VwezhuslAcvvw upper respiratory disease (3 sources)Seasonal allergic rhinitis; Translations: [Other seasonal allergic rhinitis]ChronicOther upper respiratory infections (9 sources)Chronic sinusitis; Translations: [Chronic sinusitis, unspecified] 88-60-2032ZttbwzaVppwb upper respiratory infections (20 sources)Acute upper respiratory infection, unspecified; Translations: [Acute upper respiratory infection]Onset: 02-26-2013 Resolved: 25-63-7417SijouindLxrzwku cyst (6 sources)Unspecified ovarian cyst, left side; Translations: [Unspecified ovarian cyst, unspecified side]Onset: 83-97-6688GwoyjkkuTnvrrdya codes; unclassified (2 sources)Insomnia; Translations: [Other insomnia]34-65-7212SlglpzqLfdhzscz codes; unclassified (1 source)Acquired absence of other specified parts of digestive tract; Translations: [ACQ ABSENCE OTH PART DIGESTV TRACT]Onset: 72-27-1854Zzrsrhvv Residual codes; unclassified (2 sources)Acquired absence of both cervix and uterus; Translations: [ACQUIRED ABSENCE BOTH CERVIX AND UTERUS]Onset: 01-26-3531VemdltgyQdeitbpz codes; unclassified (3 sources)Flushing; Translations: [Flushing]EpisodicResidual codes; unclassified (3 sources)Localized edema; Translations: [Localized edema]EpisodicResidual codes; unclassified (3 sources)Postprocedural state finding; Translations: [Other specified postprocedural states]EpisodicResidual codes; unclassified (1 source)Other specified postprocedural states; Translations: [PONV (postoperative nausea and vomiting)]Onset: 12-73-3188MlosqcngLcjnnvz and strains (13 sources)Sprain of other ligament of left ankle, subsequent encounter; Translations: [Sprain of left ankle]Onset: 11-46-1199DvigqpkoLkyjdxmocwy injury; contusion (8 sources)Nonvenomous insect bite of thigh without infection; Translations: [Insect bite (nonvenomous), rightthigh, initial encounter]Onset: 11-18-2016 00-94-5878RzyffhwbKjtedtk disorders (20 sources)Hypothyroidism; Translations: [Hypothyroidism, unspecified]Onset: 408620-77-4389PahubymWmrzdns disorders (9 sources)Disorder of thyroid gland; Translations: [Disorder of thyroid, unspecified]66-75-4213AaitavwmZtpwzja on above:Problem List clean-up per request of Phys. EHR CmteUnclassified (1 source)Autogenerated ProblemOnset: Viral infection (6 sources)Genital herpes simplex; Translations: [Herpesviral infection of other urogenital tract] Resolved: 56-06-5908Fookqvt Past or Other Problems Problem ClassificationProblemDateDocumented DateEpisodic/ChronicContraceptive and procreative management (3 sources)Surveillance of intrauterine device contraception; Translations: [Encounter for routine checking ofintrauterine contraceptive device] Resolved: 94-09-3580PywtainwEybbstsyomypj and screening for infectious disease (2 sources)Contact with and (suspected) exposure to other viral communicable diseases; Translations: [Encounter for screening for human papillomavirus (HPV)] Onset: 04-08-2021 Resolved: 34-09-0776ByoxoqzdOlgjbzejrbjw; infection of eye (except that caused by tuberculosis or sexually transmitteddisease) (7 sources)External hordeolum; Translations: [Hordeolum externum unspecified eye, unspecified eyelid]Onset: 96-27-7439UwbbanbxWwuzzly (3 sources)Candidiasis; Translations: [Candidiasis, unspecified] Resolved: 35-45-7610MzpedbjmTanrp connective tissue disease (1 source)Pain in left foot; Translations: [PAIN IN LEFT FOOT]Onset: 03-30-2022 EpisodicOther female genital disorders (3 sources)Disorder of female genital organs; Translations: [Unspecified condition associated with female genital organs and menstrual cycle]Onset: 06-10-2008 Resolved: 24-66-9041BnjasvueLketf lower respiratory disease (7 sources)Snoring; Translations: [Snoring]Onset: 43-72-4013QzspisohVcdtw nutritional; endocrine; and metabolic disorders (3 sources)Abnormal weight gain; Translations: [Abnormal weight gain]Onset: 67-65-2133UvdeksdmIzabfqyhnoft (2 sources)Vaginal yeast infection B37.31Unclassified (3 sources)Acute candidiasis of vulva and vagina; Translations: [Acute candidiasis of vulva and vagina] Results Test NameValueInterpretationReference RangeFacilityCNPNon 35-27-2874THNT Telephone (URON) TAYLORKARLENE ([id number]) 1990 F Date Time Provider Department 01/14/25 GAIL BORRERO During your visit today, we recorded the following information about you: Gail Borrero RN 01/14/2025 9:40 AM Signed Sent NM renal scan order to [facility] in [place] per pt request. Gail Borrero RN Allergies [...] 12/31/2024 Encounter Status:Closed by GAIL BORRERO on 01/14/25[facility] CenterCNCOon 43-63-1269ILPTXjxaoq TextNoParkview Health Bryan HospitalANES POSTPROC EVALon 76-27-1114PUVM POSTPROC EVALHNO ID: [id number] Author: ANIYA ENGLAND MD Service: ? Author Type: Anesthesiologist Type: Anesthesia Postprocedure Evaluation Filed: 01/07/2025 09:16 Note Text: POST ANESTHESIA EVALUATION NOTE : 1990 Procedure Summary Date: 01/07/25 Room / Location: [address] Anesthesia Start: 714 Anesthesia Stop: 857 [...] January 07, 2025 TIME: 9:16 AM CSN: [id number] State [facility]ing Hospital PRE-OPon 77-38-0817GASG PRE-OPHNO ID: [id number] Author: ANIYA ENGLAND MD Service: ? Author [...] and consent discussed: yes. Patient / Responsible Alliance Party agrees to proceed: yes Patient / Surrogate [...] January 07, 2025 TIME: 7:20 AM CSN: [id number] Health Bryan HospitalOPERATIVE NOon 50-31-6599NGKGTSAZK NOHNO ID: [id number] Author: NATO HAWKINS MD Service: Urology Author Type: Physician Type: Operative Report Filed: 01/07/2025 10:15 Note Text: OPERATIVE/PROCEDURE REPORT LOG ID: [id number] SURGERY/PROCEDURE DATE: 01/07/2025 INCISION/PROCEDURE START TIME: 8:15 AM INCISION CLOSE/PROCEDURE END TIME: 8:24 AM SURGEON(S)/PROCEDURALIST(S) AND INFORMATION CLERK [employer](S): Surgeons and Role: * Nato Hawkins MD [...] of the procedure: Patient was brought to [facility] OR where a timeout was performed confirming the patient's name, date of , MRN, and name of the procedure. After appropriate level of anesthesia was induced, she was placed in a dorsolithotomy position. Appropriate antibiotic prophylaxis was given. Her external genitalia was prepped and draped in the standard sterile fashion. We began the procedure by inserting a 22 Armenian rigid cystoscope, the bladder was reviewed and without any abnormality. The left UO was identified in the orthotopic position, and cannulated with a 5 Armenian open-ended catheter. Retrograde pyelogram was performed using [...] Hawkins MD Associate Staff, Department of Urology [facility] Kid[facility] InstituteNoalCCleveland Clinic Hillcrest Hospital panel Auto (Bld)on 65-72-8713Opdfwiakjwm distribution width (RBC) [Ratio]13.8 % Rowksp93.5-15.0St. Mary'S Medical CenterComment on above:Order Comment: Specimen Type: BLOOD SPECIMENOrdering Facility: [facility] Address:[address] [place] [address] [place], [place] [address]Performed By: #### 96836-1 ####[facility] LABCLIA [id number] [place] [address] [place] OF AMERICAHematocrit (Bld) [Volume fraction]39.7 %Kgqksw45.0-46.0 [facility]S Medical CenterCommunson healthcare [facility] on above:Order Comment: Specimen Type: BLOOD SPECIMENOrdering Facility: [facility] Address:[address] [place], [place] [address]Performed By: #### 24833-6 ####[facility] LABIA [id number] [place] [address] [place] Hemoglobin (Bld) [Mass/Vol]12.5 g/cTRfkoec97.5-15.5CMercy Health Fairfield Hospital Comment on above:Order Comment: Specimen Type: BLOOD SPECIMENOrdering Facility: [facility] Address:[address] [place] [address] Performed By: #### 48928-3 ####[facility] LABIA [id number] [address] OF [facility] WASHINGTON TOWNSHIPMCH (RBC) [Entitic mass] 26.9 goBubvco30.0-34.0St. [facility]S Medical CenterCommunson healthcare [facility] on above:Order Comment: Specimen Type: BLOOD SPECIMENOrdering Facility: [facility] Address:[address] [place], [place] [address]Performed By: #### 50488-9 ####[facility] LABIA [id number] [place] [address] [place] AMERICAMCHC (RBC) [Mass/Vol]31.5 g/rYUpodkg79.5-36.0St. [facility]'S Medical CenterComment on above:Order Comment: Specimen Type: BLOOD SPECIMENOrdering Facility: [facility] Address:[address] [place], [place] [address]Performed By: #### 93937-3 ####[facility] LABIA [id number] [address] OF K[facility] WASHINGTON TOWNSHIPMCV (RBC) [Entitic vol]85.6 yIXsessb74.0-100.0[facility] on above: Order Comment: Specimen Type: BLOOD SPECIMENOrdering Facility: [facility] Address:[address] [place], [place] [address]Performed By: #### 44980- 2 ####[facility] LABCLIA [id number] [place] [address] [place] AMERICANucleated RBC (Bld) [#/Vol]10*3/uLNormal<0.01 [facility] on above:Order Comment: Specimen Type: BLOOD SPECIMENOrdering Facility: [facility] Address:[address] [place], [place] [address]Performed By: #### 06902-9 ####[facility] LABCLIA [id number] [place] [address] [place] AMERICAPlatelet mean volume (Bld) [Entitic vol]9.3 fLNormal9.0-12.7CMercy Health Fairfield Hospital Comment on above:Order Comment: Specimen Type: BLOOD SPECIMENOrdering Facility: [facility] Address:[address] [place] [address] Performed By: #### 48378-9 ####[facility] LABCLIA [id number] [place] [address] [place] AMERICAPlatelets (Bld) [#/Vol] 376 10*3/jRVnhpze306-907QwbttmyydParkview Health Bryan Hospital on above:Order Comment: Specimen Type: BLOOD SPECIMENOrdering Facility: [facility] Address:[address] [place], [place] [address]Performed By: #### 76942- 2 ####[facility] LABCLIA [id number] [place] [address] [place] AMERICARBC (Bld) [#/Vol]4.64 10*6/uLNormal3.90-5.20 [facility] on above:Order Comment: Specimen Type: BLOOD SPECIMENOrdering Facility: [facility] Address:[address] [place], [place] [address]Performed By: #### 77540-7 ####[facility] LABCLIA [id number] [address] STATES OF AMERICAWBC (Bld) [#/Vol]7.13 10*3/uLNormal3.70-11.00[facility] on above: Order Comment: Specimen Type: BLOOD SPECIMENOrdering Facility: [facility] Address:[address] [place], [place] [address]Performed By: #### 39463- 2 ####[facility] LABCLIA [id number] [address]ETCONFIRM BLOOD TYPEon 81-12-7927KJYSKierenXwoujxpwmOhioHealth Pickerington Methodist Hospital on above:Order Comment: Specimen Type: BLOOD SPECIMENOrdering Facility: [facility] Address:[address] [place], [place] [address]Performed By: #### CONABO ####[facility] LABCLIA [id number] [address] STATES [facility]TH HOSPITALRh Nom (Bld)PositiveNormMetroHealth Cleveland [facility] Medical Center on above:Order Comment: Specimen Type: BLOOD SPECIMENOrdering Facility: [facility] Address:[address] [place], [place] [address]Performed By: #### CONABO ####[facility] LABCLIA [id number] [place] [address] [place] AMERICACT UROGRAM WO/W IVCONon 15-28-5205OQ UROGRAM WO/W IVCON* * *Final Report* * * DATE OF EXAM: Dec 31 2024 11:27AM [facility] 0560 - CT UROGRAM WO/W IVCON [...] any questions regarding this interpretation, please call [phone]. If you are unable to reach us at the number above, please feel free to contact [facility] Hospitaliology at [phone]. [id number]_IDCSIACNNormalParma Community General Hospitalprehensive metabolic 2000 panelon 22-63-6012Nubmjsk [Mass/Vol]4.0 g/dLNormal3.9-4.9COhioHealth Pickerington Methodist Hospital on above:Order Comment: Specimen Type: BLOOD SPECIMENOrdering Facility: [facility] Address:[address] [place], [place] [address]Performed By: #### 44116-9 ####[facility] LABCLIA [id number] [place] [address] [place] AMERICAALP [Catalytic activity/Vol]72 U/TMonyhg72-851YrmckgphkParkview Health Bryan Hospital on above:Order Comment: Specimen Type: BLOOD SPECIMENOrdering Facility: [facility] Address:[address] [place], [place] [address]Performed By: #### 87832- 8 ####[facility] LABCLIA [id number] [place] [address] [place] AMERICAALT [Catalytic activity/Vol]11 U/LNormal7-38 [facility] on above:Order Comment: Specimen Type: BLOOD SPECIMENOrdering Facility: [facility] Address:[address] [place], [place] [address]Performed By: #### 03126-7 ####[facility] LABCLIA [id number] [place] [id number] [place] AMERICAAnion gap [Moles/Vol]13 mmol/LNormal8-15[facility] on above:Order Comment: Specimen Type: BLOOD SPECIMENOrdering Facility: [facility] Address:[address] [place], [place] [address]Performed By: #### 07665- 8 ####[facility] LABCLIA [id number] [place] [address] [place] AMERICAAST [Catalytic activity/Vol]19 U/DBcwbvt40-91 [facility] on above:Order Comment: Specimen Type: BLOOD SPECIMENOrdering Facility: [facility] Address:[address] [place], [place] [address]Performed By: #### 47879-2 ####[facility] LABCLIA [id number] [place] [address] [place] AMERICABilirubin [Mass/Vol]0.5 mg/dLNormal0.2-1.3COhioHealth Pickerington Methodist Hospital on above:Order Comment: Specimen Type: BLOOD SPECIMENOrdering Facility: [facility] Address:[address] [place], [place] [address]Performed By: #### 19419- 8 ####[facility] LABCLIA [id number] [place] [address] [place] AMERICACalcium [Mass/Vol]8.9 mg/dLNormal8.5-10.2COhioHealth Pickerington Methodist Hospital on above:Order Comment: Specimen Type: BLOOD SPECIMENOrdering Facility: [facility] Address:[address] [place], [place] [address]Performed By: #### 83371-8 ####[facility] LABCLIA [id number] [place] [address] [place] AMERICAChloride [Moles/Vol]105 mmol/XMxptaf33-524TtavbbhucParkview Health Bryan Hospital on above: Order Comment: Specimen Type: BLOOD SPECIMENOrdering Facility: [facility] Address:[address] [place], [place] [address]Performed By: #### 37261- 8 ####[facility] LABCLIA [id number] [place] [address] [place] AMERICACO2 [Moles/Vol]22 mmol/QEhircx71-90KnaeymgciParkview Health Bryan Hospital on above:Order Comment: Specimen Type: BLOOD SPECIMENOrdering Facility: [facility] Address:[address] [place], [place] [address]Performed By: #### 93512-3 ####[facility] LABCLIA [id number] [place] [id number] [place] Creatinine [Mass/Vol]0.73 mg/dLNormal0.58-0.96[facility] on above:Order Comment: Specimen Type: BLOOD SPECIMENOrdering Facility: [facility] Address:[address] [place] [address] Performed By: #### 84357-5 ####[facility] LABIA [id number] [place] [address] [place] AMERICAeGFRcr SerPlBld CKD-EPI 4066419 mL/min/1.73m???Normal>=60[facility] on above: Order Comment: Specimen Type: BLOOD SPECIMENOrdering Facility: [facility] Address:[address] [place], [place] [address]Result Comment: Estimated Glomerular Filtration Rate (eGFR) is [...] not accurately reflect actual GFR.Performed By: #### 82893-0 ####[facility] LABCLIA [id number] [place] [address] [place] AMERICAGlucose [Mass/Vol]88 mg/lCBzngyq26-49RgmrahgprParkview Health Bryan Hospital on above:Order Comment: Specimen Type: BLOOD SPECIMENOrdering Facility: [facility] Address:[address] [place], [place] [address]Result Comment: The [place] Diabetes Association (ADA) provides guidance for cutoff [...] Standards of Medical Care in Diabetes 2016, [place] [employer]. Diabetes Care. 2016.39(Suppl 1).Performed By: #### 92223-4 ####[facility] LABCLIA [id number] [place] [address] [place] AMERICAPotassium [Moles/Vol]4.3 mmol/LNormal3.7-5.1COhioHealth Pickerington Methodist Hospital on above:Order Comment: Specimen Type: BLOOD SPECIMENOrdering Facility: [facility] Address:[address] [place], [place] [address]Performed By: #### 41825-4 ####[facility] LABCLIA [id number] [place] [address] [place] AMERICAProtein [Mass/Vol]6.8 g/dLNormal6.3-8.0[facility] on above:Order Comment: Specimen Type: BLOOD SPECIMENOrdering Facility: [facility] Address:[address] [place], [place] [address]Performed By: #### 40640- 8 ####[facility] LABCLIA [id number] [place] [address] [place] AMERICASodium [Moles/Vol]140 mmol/PRcigfg149-492UffmddutpParkview Health Bryan Hospital on above:Order Comment: Specimen Type: BLOOD SPECIMENOrdering Facility: [facility] Address:[address] [place], [place] [address]Performed By: #### 34812-6 ####[facility] LABIA [id number] [place] [address] [place] AMERICAUrea nitrogen [Mass/Vol]9 mg/dLNormal7-21[facility] on above: Order Comment: Specimen Type: BLOOD SPECIMENOrdering Facility: [facility] Address:[address] [place], [place] [address]Performed By: #### 33357- 8 ####[facility] LABIA [id number] [place] [address] [place] AMERICAHISTORY PHYSICALon 17-54-8585GNZWUZL PHYSICALHNO ID: [id number] Author: MICAELA NGUYỄN APRN.EXAMINING OFFICER Service: ? Author Type: Nurse Practitioner Type: H&P Filed: 01/01/2025 08:00 Note Text: [facility] HISTORY AND PHYSICAL EXAMINATION SERVICE DATE: 12/31/2024 SERVICE TIME: 9:53 AM PRIMARY CARE PHYSICIAN: Saniya Mays NP REASON FOR VISIT: Karlene Alfaor is a 34 year old female who [...] large neck Non-male patient STOP-Bang Score: 0 [id number]-VCFl Score: Age: <65 Sex: female CHF history: No Hypertension history: No Stroke/TIA/thromboembolism history: No Vascular disease history: No Diabetes history: No ROL5SR2-KOPr Score: 1 ARISCAT Score: Age: <=50 Preoperative [...] malaise or fevers. Neuro: (more content not included)...NormalSt. Mary'S Medical CenterTYPE + SCREENon 45-74-7452HTLJLtneezAzkxyviqnOhioHealth Pickerington Methodist Hospital on above:Order Comment: Specimen Type: BLOOD SPECIMENOrdering Facility: [facility] Address:[address] [place], [place] [address]Performed By: #### TSCR ####[facility] LABCLIA [id number] [place] [id number] [facility]OSPITALRh Nom (Bld)PositiveNormMetroHealth [facility] on above:Order Comment: Specimen Type: BLOOD SPECIMENOrdering Facility: [facility] Address:[address] [place], [place] [address]Performed By: #### TSCR ####[facility] LABCLIA [id number] [place] [id number] [facility]OSPITALTYPE AND SCREEN PFCRRBJJCP26/23/2025 23:59NormalCOhioHealth Pickerington [facility] Hospital on above:Order Comment: Specimen Type: BLOOD SPECIMENOrdering Facility: [facility] Address:[address] [place], [place] [address]Performed By: #### TSCR ####[facility] LABCLIA [id number] [place] [id number] [facility] HOSPITALCNPNon 92-74-0131AYWSQdoibzihz (JOHANNY) KARLENE ALFARO ([id number]) 1990 F Date Time Provider Department 12/28/24 GAIL BORRERO During your visit today, we recorded the following information about you: Gail Borrero RN 12/28/2024 2:50 PM Signed Called pt about urine culture, she stated she got it done 12/26 at [facility], and in her pt portal it is still pending. Will f/u. 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] Prescriptions as of 12/28/2024 [...] (None) Encounter Status:Closed by GAIL BORRERO on 12/28/24NoSumma Health Akron Campustory - Chemistry and Chemistry - challengeOrdered By: Brent Roland on 87-20-6693Xipw T4 [Mass/Vol]0.94 ng/dL0.76-1.46[facility] Community HospitalTSH Qn6.381 m[IU]/LHigh0.358-3.740[facility] HospitalNo Panel InformationOrdered By: Brent Roland on 80-36-0273Jjit Triiodothyronine2.64 pg/mL2.18-3.98[facility] HospitalUrine Cultureon 12-26-2024 Bacteria identified Cx Nom (U)<9,000 colonies/ml mixed bacterial skin contaminants 2 Days PERFORMED BY: [place] [address] [place] [address] PATHOLOGIST CAMP MANAGER ZITA BATISTA M.D.NormalThe Pending Sale To [facility] Health Physician GroupComment on above: Performed By: #### CUU #### [facility] [address] [id number] [facility]ICAL CENTERPuneet [id number] (UROMILTONN) KARLENE ALFARO ([id number]) 1990 F Date Time Provider Department 12/25/24 GAIL BORRERO During your visit today, we recorded the following information about you: Gail Borrero RN 12/25/2024 10:00 AM Signed Faxed urine culture order to [facility] lab for pt to get it done [...] (None) Encounter Status:Closed by GAIL BORRERO on 12/25/24NoParkview Health Bryan HospitalARYATelephone (UROMILTONN) KARLENE ALFARO ([id number]) 1990 F Date Time Provider Department 12/25/24 GAIL BORRERO During your visit today, we recorded the following information about you: Gail Borrero RN 12/25/2024 9:56 AM Signed Called pt regarding getting UC done locally, pt stated she could get it done at [facility] today. Told her I would fax it over to them. 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] Prescriptions as of 12/25/2024 [...] (None) Encounter Status:Closed by GAIL BORRERO on 12/25/24[facility] HospitalElizabeth [id number] (JOHANNY) KARLENE ALFARO ([id number]) 1990 F Date Time Provider Department 12/18/24 [...] (None) Encounter Status:Closed by GAIL BORRERO on 12/18/24[facility] HospitalElizabeth [id number] (JOHANNY) KARLENE ALFARO ([id number]) 1990 F Date Time Provider Department 12/17/24 [...] MA - Fully Assessed 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 Allergies As of Date: 12/05/2024 Noted Allergy Reaction CLINDAMYCIN 11/20/2024 4 - Hives Comments: Rash DTAP-IPV COMPONENT 1 OF 2 (PF) 11/20/2024 5 - Intolerance Comments: Hives; Rash; Welt Date Reviewed: 11/20/2024 Reviewed by: Mendy Bartholomew MA - Fully Assessed Reason for Visit: [facility] Paperwork [4185] Prescriptions as of 12/05/2024 - [...] (None) Encounter Status:Closed by EDGAR CARIAS on 12/05/24[facility] 65-30-8359MQALNivrol Visit (FVUROL) KARLENE ALFARO ([id number]) 1990 F Date Time Provider Department 11/20/24 10:00 AM NATO HAWKINS During your visit today, we recorded the following information about you: Blood pressure Last Period 133/93 06/12/18 Nato Hawkins MD 11/20/2024 12:24 PM Signed [facility]Y NEW [...] Nato Hawkins MD Staff Urologist Genitourinary [facility] [place] Department of [facility] I spent a total of 30 minutes on the date of the service which included preparing to see the patient, sdhz-tv-zwfg patient care, completing clinical documentation, obtaining and/or [...] Of Date: 11/20/2024 (None) (more content not included)...[facility] Basophils Auto (Bld) [#/Vol]Ordered By: Kamaljit Ayala on 88-31-1101Mgeaeqifd (Bld) [#/Vol]0.0 10 3/uL0.0-0.1FSelect Medical Cleveland Clinic Rehabilitation Hospital, AvonBasophils/100 WBC Auto (Bld)Ordered By: Kamaljit Ayala on 32-64-1065Elfxzcjyj/100 WBC (Bld)0.6 %0.2-2.0[facility] HospitalEosinophils/100 WBC Auto (Bld)Ordered By: Kamaljit Aylaa on 14-81-8907Itdtxpjohde/100 WBC (Bld)2.1 %0.9-7.0[facility] HospitalErythrocyte distribution width Auto (RBC) [Ratio]Ordered By: Kamaljit Ayala on 82-12-1553Nfwbyvhviuy distribution width (RBC) [Ratio]13.7 %11.0-15.0[facility] Community HospitalGlomerular filtration rate (GFR) estimation in non- AmericanOrdered By: Kamaljit Ayala on 11-08-2024 GFR/1.73 sq M.predicted among non-blacks MDRD (S/P/Bld) [Vol rate/Area] mL/min/{1.73_m2}>=60 mL/min/1.73m 2FSelect Medical Cleveland Clinic Rehabilitation Hospital, AvonHematocrit Auto (Bld) [Volume fraction]Ordered By: Kamaljit Ayala on 26-91-4545Msbxknqjpc (Bld) [Volume fraction]38.5 %36.0-48.0[facility] Hemoglobin [Mass/volume] in BloodOrdered By: Kamaljit Ayala on 11-08-2024 Hemoglobin (Bld) [Mass/Vol]12.5 g/dL12.0-16.0[facility] Laboratory - Chemistry and Chemistry - challengeOrdered By: Kamaljit Ayala on 52-21-8345Gwiuhlq [Mass/Vol]8.4 mg/dLLow8.5-10.1FSelect Medical Cleveland Clinic Rehabilitation Hospital, AvonChloride [Moles/Vol]105 mmol/F20-455UisuoavlmMercer County Community HospitalCO2 [Moles/Vol]25.2 mmol/L21.0-32.0[facility] HospitalCreatinine [Mass/Vol]0.82 mg/dL0.55-1.02[facility] HospitalGFR/1.73 sq M.predicted MDRD (S/P/Bld) [Vol rate/Area]mL/min/{1.73_m2}>=60 mL/min/1.73m 2 [facility] HospitalGlucose [Mass/Vol]101 mg/fX32-986GxettsscnMercer County Community HospitalPotassium [Moles/Vol]3.9 mmol/L3.5-5.1FOhioHealth Pickerington Methodist Hospitalodium [Moles/Vol]140 mmol/P911-732BwjchbuwjMercer County Community HospitalUrea nitrogen [Mass/Vol]13.0 mg/dL7.0-18.0[facility] HospitalUrea nitrogen/Creatinine [Mass ratio]15.9 mg/mgMercer County Community HospitalLaboratory - Hematology and Cell countsOrdered By: Kamaljit Ayala on 08-32-8148Qzsopiqr granulocytes/100 WBC (Bld)0.1 %0.0-0.5FSelect Medical Cleveland Clinic Rehabilitation Hospital, AvonLeukocytes [#/volume] corrected for nucleated erythrocytes in Blood by Automated counOrdered By: Kamaljit Ayala on 20-57-3753NSE corrected for nucl RBC Auto (Bld) [#/Vol]7.3 10 3/uL4.0-11.0[facility] Lymphocytes Auto (Bld) [#/Vol]Ordered By: Kamaljit Ayala on 11-08-2024 Lymphocytes (Bld) [#/Vol]2.6 10 3/uL1.2-3.8[facility] Lymphocytes/100 WBC Auto (Bld)Ordered By: Kamaljit Ayala on 11-08-2024 Lymphocytes/100 WBC (Bld)35.4 %20.5-60.0[facility] HospitalMCH Auto (RBC) [Entitic mass]Ordered By: Kamaljit Ayala on 13-56-0944XXC (RBC) [Entitic mass]26.6 pgLow26.7-34.0[facility] HospitalMCHC Auto (RBC) [Mass/Vol]Ordered By: Kamaljit Ayala on 10-45-5015DGVP (RBC) [Mass/Vol] 32.5 g/dL29.9-35.2FSelect Medical Cleveland Clinic Rehabilitation Hospital, AvonMCV Auto (RBC) [Entitic vol] Ordered By: Kamaljit Ayala on 10-23-6557IXI (RBC) [Entitic vol]81.9 fL81.0-99.0 [facility] HospitalMonocytes Auto (Bld) [#/Vol]Ordered By: Kamaljit Ayala on 03-34-8855Zpdnvmvze (Bld) [#/Vol]0.5 10 3/uL0.3-0.8[facility] HospitalMonocytes/100 WBC Auto (Bld)Ordered By: Kamaljit Ayala on 65-64-4382Vjbmyaoky/100 WBC (Bld)6.8 %1.7-12.0[facility] Neutrophils Auto (Bld) [#/Vol]Ordered By: Kamaljit Ayala on 11-08-2024 Neutrophils (Bld) [#/Vol]4.0 10 3/uL1.4-6.5FSelect Medical Cleveland Clinic Rehabilitation Hospital, Avon Neutrophils/100 WBC Auto (Bld)Ordered By: Kamaljit Ayala on 11-08-2024 Neutrophils/100 WBC (Bld)55.0 %43.0-75.0[facility] HospitalNo Panel InformationOrdered By: Kamaljit Ayala on 44-83-3877Qyefsqfidah # (Auto)0.2 10 3/uL0.0-0.7FSelect Medical Cleveland Clinic Rehabilitation Hospital, AvonImmature Granulocyte # (Auto) 0.01 10 3/uL0.00-0.03Mer[facility] Community HospitalPlatelet mean volume Auto (Bld) [Entitic vol]Ordered By: Kamaljit Ayala on 95-38-0405Wvztphpk mean volume (Bld) [Entitic vol]8.9 fLLow9.5-13.5FSelect Medical Cleveland Clinic Rehabilitation Hospital, AvonPlatelets Auto (Bld) [#/Vol]Ordered By: Kamaljit Ayala on 75-01-3806Tlejumfpv (Bld) [#/Vol]334 10 3/sR159-401XxedcylpqMercer County Community HospitalRBC Auto (Bld) [#/Vol] Ordered By: Kamaljit Ayala on 95-94-8037DBM (Bld) [#/Vol]4.70 10 6/uL4.20-5.40 Memorial Health Systemerum or plasma anion gap determinationOrdered By: Kamaljit Ayala on 99-10-6412Ucaot gap [Moles/Vol]13.7 mmol/LFSelect Medical Cleveland Clinic Rehabilitation Hospital, AvonCreatinineon 81-93-3138DXB/1.73 sq M.predicted MDRD (S/P/Bld) [Vol rate/Area]mL/min/{1.73_m2}NormalThe Pending Sale To [facility] Comment on above:Order Comment: STAT FOR IVPResult Comment: PERFORMED BY: [place] [address] PATHOLOGIST CAMP MANAGER ZITA BATISTA M.D.Performed By: #### CREAT #### [facility] [address] [place] [address] USACreatinine [Mass/volume] in Serum or PlasmaOrdered By: Kamaljit Ayala on 24-02-2521Brezegsuxd [Mass/Vol]0.77 mg/dLNormal0.60-1.20 [facility] HospitalComment on above:Order Comment: STAT FOR IVP Performed By: #### CREAT #### [facility] [address] [place], [place] [address] USANo Panel InformationOrdered By: Kamaljit Ayala on 63-81-4221Vmchdbpix GFR (CKD-EPI)> 60.0 mL/MinMercer County Community Hospital Pharmacy Creatinine Clearance (ChemN/[facility] Medical CenterX-ray reportOrdered By: Crow Ramos on 81-28-0639Rgukq reportSALEM REGION[facility] [place] [address] [place] [address] XRay Report Signed Patient: Karlene Alfaro MR#: [id number] : 1990 Acct:[id number] Age/Sex: 34 / F ADM Date: 5 Loc: XD Room: Type: [facility] Attending Dr: Kamaljit Ayala MD Copies to: Kamaljit Ayala MD~ Ordering Provider: Kamaljit Ayala MD Date of Service: 10/29/24 XR/XR IVP: LT FLANK PAIN, URETERAL STICTURE XR IVP 10/29/2024 8:56 AM SIGNS AND SYMPTOMS: ^LT FLANK PAIN, URETERAL STICTURE ^HOLDING RM FOR LABS PROTOCOL: Territory Representative radiographs of the abdomen and pelvis were [...] Ramos M.D. 10/29/2024 10:15 AM Dictation Location: [place] [address] Transcribed By: [facility] 10/29/24 1015 Dictated By: Crow Ramos II, MD 10/29/24 1011 Signed By: 10/29/24 [facility]5 [facility] Work Phone: xr IVPon 19-48-6976NW IVPSALEM [facility] [address] [place] [address] [place] [address] XRay Report Signed Patient: Karlene Alfaro MR#: [id number] : 1990 Acct:[id number] Age/Sex: 34 / F ADM Date: 10/29/24 Loc: XD Room: Type: [facility] Attending Dr: Kamaljit Ayala MD Copies to: Kamaljit Ayala MD Ordering Provider: Kamaljit Ayala MD Date of Service: 10/29/24 XR/XR IVP: LT FLANK PAIN, URETERAL STICTURE XR IVP 10/29/2024 8:56 AM SIGNS AND SYMPTOMS: LT FLANK PAIN, URETERAL STICTURE HOLDING FOR LABS PROTOCOL: Territory Representative radiographs of the abdomen and pelvis were [...] Ramos M.D. 10/29/2024 10:15 AM Dictation Location: [place] [address] Transcribed By: [facility] 10/29/24 1015 Dictated By: Crow Ramos II, MD 10/29/24 1011 Signed By: 10/29/24 1015[facility] Physician GroupIGP,APTIMA HPV,AGE GDLNon 16-49-8769MHB GDLN ACOG TESTINGNote.NOMS HealthcareComment on above:TESTS RESULT FLAG UNITS REF RANGE LAB Clinician Provided Cytology Information Source.............Vagina No. of containers..01 ThinPrep Vial Age Algo ACOG Olga... 30 FLAG LEGEND: L-Low Normal,H-High Normal,LL-Alert Low,HH-Alert High <-Panic Low,>-Panic High,A-Abnormal,AA-Critical Abnormal Performed at: 01 =[address] [address] Ernestina Carballo MD, HPV APTIMANegativeNegativeNOMS HealthcareComment on above:This nucleic acid amplification test detects fourteen high- risk HPV types (16,18,31,33,35,39,45,51,52,56,58,59,66,68) without differentiation. Performed at: =[address] [id number] Lamination Technician: Ernestina Carballo MD, Phone: [phone] Performed at: [address] [id number] Lamination Technician: Ernestina Carballo MD, Phone: [phone] IGP, APTIMA HPV, RFX 16/18,45Note.NOMS HealthcareComment on above:TESTS RESULT FLAG UNITS REF RANGE LAB DIAGNOSIS: 02 NEGATIVE FOR INTRAEPITHELIAL LESION OR MALIGNANCY. Specimen adequacy: 02 Satisfactory for evaluation. No endocervical component is identified. Performed by: 02 Delphine Taylor, College Physics Instructor (ASCP) . 02 Note: Note 02 The [...] <-Panic Low,>-Panic High,A-Abnormal,AA-Critical Abnormal Performed at: [address] [address] Ernestina Carballo MD, [facility] CLINISYNCNOFulton State Hospital papilloma virus 16+18+31+33+35+39+45+51+52+56+58+59+66+68 DNA [Presence] in CerOrdered By: Brent Roland on 54-04-5971HNC 16+18+31+33+35+39+45+51+52+56+58+59+66+68 DNA Probe+sig amp Ql (Cvx)NegativeNegativeMercer County Community HospitalComment on above: This nucleic acid amplification test detects fourteen high-risk HPV types (16,18,31,33,35,39,45,51,52,56,58,59,66,68)without differentiation.Performed at: = - [address] [id number] Director: Ernestina Carballo MD, Phone: [phone] at: - [address] [id number] Director: Ernestina Carballo MD, Phone: [phone] Panel InformationOrdered By: Brent Roland on 92-65-3062LAQ High Risk Other CommentNote.[facility] County Community HospitalComment on above:TESTS RESULT FLAG UNITS REF RANGE LAB DIAGNOSIS: 02 NEGATIVE FOR INTRAEPITHELIAL LESION OR MALIGNANCY.Specimen adequacy: 02 Satisfactory forevaluation. No endocervical component is identified.Performed by: 02 Delphine Taylor, College Physics Instructor ([facility]). 02Note: Note 02 The Pap smear is [...] <-Panic Low,>-Panic High,A-Abnormal,AA-Critical Abnormal---- Performed at:[address] [place] [address] Ernestina Carballo MD, Iqqkuncnn Lab Test Patient AgeNote.[facility] County Community HospitalComment on above:TESTS RESULT FLAG UNITS REF RANGE LAB Clinician Provided Cytology Information Source.............Vagina No. of containers..01 ThinPrep VialAge Hal SNOW Olga... 30-65 01 FLAG LEGEND: L- Low Normal,H-High Normal,LL-Alert Low,HH-Alert High <-Panic Low,>-Panic High,A-Abnormal,AA-Critical Abnormal Performed at:01 =[address] [address] Ernestina Carballo MD, Jfszunjqpz Visit Summaryon 65-83-3857Jnzlolumog Visit SummaryAmbulatory Visit Summary KARLENE ALFARO :1990 [...] Urology [address] , [place] [address]- Medications What How Much When Instructions Unchanged [...] ? 8 oz (237 mL) of milk, gwjysqm-upasgflbntfe-lvnsp milk, and calcium- fortifiedfruit juice. Calcium-fortified means [...] and vegetable (more content not included)...Normal [facility] CenterUrology Office/Clinic Noteon 36-45-6270Wtwmrss Office/Clinic NoteUrology Office/Clinic Note Chief Complaint Cysto, [...] distal ureteralstricture found. *pt was there for acetylene burner procedure (pelvic laparoscopy for significant L sided [...] URL [facility] [address] [place] [address]- Additional Instructions: 3 mos with IVP Patient [...] Family history is negati (more content not included)...[facility] Children's HospitalComment on above:Result Comment: Electronically Signed By: Kamaljit AYALA MD\.br\Date and Time Signed: 10/02/24 15:55 EDT\.br\Electronically Co-Signed By: Debbie Guadalupe\.br\Date and Time Co-Signed: 10/02/24 15:45 EDT Provider Letteron 54-45-3931Hxndlcrv LetterProvider Letter September 13, 2024 KARLENE TAYLOR [address] [address] : 1990 To Whom It May Concern, Please excuse above patient from work. Date of Illness: From: 09/06/24 To: 10/02/24 May Return to Work On: 10/03/24 Restrictions: None Comments: Continuation of FMLA from 09/06/24- 10/02/24. Patient may return to work without restrictions on 10/03/24. Sincerely, [facility]/ Dr. Kamaljit Ayala [address] [facility]. [facility] [place] [address] [facility] Children's HospitalComment on above:Other Comment: correction/ pt change mindProvider LetterProvider Letter September 13, 2024 KARLENE ALFARO [address] [address] : 1990 To Whom It May Concern, Please excuse above patient from work. Date of Illness: From: 09/06/24 To: 09/17/24 May Return to Work On:09/18/24 Restrictions: Patient may return to work 09/18/24 with no heavy lifting and light duty. Comments: N/A Sincerely, [facility] Children's HospitalBasophils Auto (Bld) [#/Vol]on 23-54-0185Kgosxxhdd (Bld) [#/Vol]0.0 10 3/uL0.0-0.1FSelect Medical Cleveland Clinic Rehabilitation Hospital, AvonBasophils/100 WBC Auto (Bld)on 01-38-1478Juimrjenr/100 WBC (Bld)0.6 % 0.2-2.0[facility] HospitalEosinophils/100 WBC Auto (Bld)on 54-14-1491Gfymjhideem/100 WBC (Bld)3.0 %0.9-7.0[facility] Erythrocyte distribution width Auto (RBC) [Ratio]on 84-48-5899Bxrouhcbbvb distribution width (RBC) [Ratio]13.2 %11.0-15.0[facility] Estimated glomerular filtration rate (GFR) non- Americanon 08-23-2024 GFR/1.73 sq M.predicted among non-blacks MDRD (S/P/Bld) [Vol rate/Area] mL/min/{1.73_m2}>=60 mL/min/1.73m 2FSelect Medical Cleveland Clinic Rehabilitation Hospital, AvonHematocrit Auto (Bld) [Volume fraction]on 99-90-9325Skfupmhewt (Bld) [Volume fraction]39.6 %36.0-48.0[facility] HospitalHemoglobin [Mass/volume] in Bloodon 38-90-5790Uqxihmgzgf (Bld) [Mass/Vol]12.9 g/dL12.0-16.0[facility] HospitalLaboratory - Chemistry and Chemistry - challengeon 08-23-2024 Calcium [Mass/Vol]9.0 mg/dL8.5-10.1FSelect Medical Cleveland Clinic Rehabilitation Hospital, AvonChloride [Moles/Vol]104 mmol/A44-411RdyxgachpMercer County Community HospitalCO2 [Moles/Vol]26.7 mmol/L21.0-32.0[facility] HospitalCreatinine [Mass/Vol]0.82 mg/dL 0.55-1.02[facility] HospitalGFR/1.73 sq M.predicted MDRD (S/P/Bld) [Vol rate/Area]mL/min/{1.73_m2}>=60 mL/min/1.73m 2FSelect Medical Cleveland Clinic Rehabilitation Hospital, AvonGlucose [Mass/Vol]94 mg/yU63-878GmtyyjyjqMercer County Community HospitalPotassium [Moles/Vol]3.9 mmol/L3.5-5.1FOhioHealth Pickerington Methodist Hospitalodium [Moles/Vol] 139 mmol/M342-683WgivyvijzMercer County Community HospitalUrea nitrogen [Mass/Vol]9.0 mg/dL7.0-18.0[facility] HospitalUrea nitrogen/Creatinine [Mass ratio]11.0 mg/mgMercer County Community HospitalLaboratory - Hematology and Cell countson 14-12-9749Itvjnveh granulocytes/100 WBC (Bld)0.1 %0.0-0.5FSelect Medical Cleveland Clinic Rehabilitation Hospital, AvonLeukocytes [#/volume] corrected for nucleated erythrocytes in Blood by Automated counon 19-73-6699SSI corrected for nucl RBC Auto (Bld) [#/Vol]6.7 10 3/uL4.0-11.0[facility] Lymphocytes Auto (Bld) [#/Vol]on 22-21-5693Sybjmpmbhgv (Bld) [#/Vol]2.4 10 3/uL 1.2-3.8[facility] HospitalLymphocytes/100 WBC Auto (Bld)on 17-07-3085Zddnehiricx/100 WBC (Bld)34.9 %20.5-60.0[facility] HospitalH Auto (RBC) [Entitic mass]on 94-80-8775JIH (RBC) [Entitic mass]26.2 pg Low26.7-34.0[facility] HospitalMCHC Auto (RBC) [Mass/Vol]on 65-26-6852YWBT (RBC) [Mass/Vol]32.6 g/dL29.9-35.2FSelect Medical Cleveland Clinic Rehabilitation Hospital, AvonMCV Auto (RBC) [Entitic vol]on 59-41-1671RWN (RBC) [Entitic vol]80.5 fLLow 81.0-99.0[facility] HospitalMonocytes Auto (Bld) [#/Vol]on 69-40-5218Qiaegstdr (Bld) [#/Vol]0.3 10 3/uL0.3-0.8[facility] HospitalMonocytes/100 WBC Auto (Bld)on 16-11-5437Triyzmtta/100 WBC (Bld)4.9 % 1.7-12.0[facility] HospitalNeutrophils Auto (Bld) [#/Vol]on 52-14-9354Hhdzuplqodm (Bld) [#/Vol]3.8 10 3/uL1.4-6.5FSelect Medical Cleveland Clinic Rehabilitation Hospital, AvonNeutrophils/100 WBC Auto (Bld)on 70-78-4677Zloqcidqrat/100 WBC (Bld)56.5 % 43.0-75.0[facility] HospitalNo Panel Informationon 08-23-2024 Eosinophils # (Auto)0.2 10 3/uL0.0-0.7FSelect Medical Cleveland Clinic Rehabilitation Hospital, AvonImmature Granulocyte # (Auto)0.01 10 3/uL0.00-0.03[facility] Platelet mean volume Auto (Bld) [Entitic vol]on 97-37-6669Lrnypbvv mean volume (Bld) [Entitic vol]8.9 fLLow9.5-13.5FSelect Medical Cleveland Clinic Rehabilitation Hospital, AvonPlatelets Auto (Bld) [#/Vol]on 26-79-2613Vpzomlkvd (Bld) [#/Vol]398 10 3/oB791-929 [facility] HospitalRBC Auto (Bld) [#/Vol]on 42-56-4939UND (Bld) [#/Vol]4.92 10 6/uL4.20-5.40[facility]orial Health Systemerum or plasma anion gap determinationon 86-83-5735Hcscb gap [Moles/Vol]12.2 mmol/LFSelect Medical Cleveland Clinic Rehabilitation Hospital, AvonBasophils Auto (Bld) [#/Vol]on 18-04-7437Koaevytcz (Bld) [#/Vol]0.1 10 3/uL0.0-0.1FSelect Medical Cleveland Clinic Rehabilitation Hospital, AvonBasophils/100 WBC Auto (Bld)on 99-99-9918Owuxkhqzn/100 WBC (Bld)0.6 %0.2-2.0[facility] HospitalEosinophils/100 WBC Auto (Bld)on 28-65-4862Eeomoluihps/100 WBC (Bld)1.6 % 0.9-7.0[facility] HospitalErythrocyte distribution width Auto (RBC) [Ratio]on 95-46-9809Ggsnpwpeszn distribution width (RBC) [Ratio]13.1 % 11.0-15.0[facility] HospitalHematocrit Auto (Bld) [Volume fraction]on 03-16-6459Oebyuviqnc (Bld) [Volume fraction]43.7 %36.0-48.0[facility] HospitalHemoglobin [Mass/volume] in Bloodon 83-47-8387Cnlznsfytd (Bld) [Mass/Vol]14.1 g/dL12.0-16.0[facility] HospitalLaboratory - Hematology and Cell countson 73-15-2769Flbllcjp granulocytes/100 WBC (Bld)0.2 % 0.0-0.5FSelect Medical Cleveland Clinic Rehabilitation Hospital, AvonLeukocytes [#/volume] corrected for nucleated erythrocytes in Blood by Automated counon 02-85-2724GDP corrected for nucl RBC Auto (Bld) [#/Vol]9.0 10 3/uL4.0-11.0[facility] Lymphocytes Auto (Bld) [#/Vol]on 27-81-5121Wzpwzrgzyql (Bld) [#/Vol]3.0 10 3/uL 1.2-3.8[facility] HospitalLymphocytes/100 WBC Auto (Bld)on 59-63-9991Juvcbiuafnz/100 WBC (Bld)33.4 %20.5-60.0[facility] HospitalH Auto (RBC) [Entitic mass]on 10-86-9063AUW (RBC) [Entitic mass]26.7 pg 26.7-34.0[facility] HospitalMCHC Auto (RBC) [Mass/Vol]on 38-39-4777RLFC (RBC) [Mass/Vol]32.3 g/dL29.9-35.2FSelect Medical Cleveland Clinic Rehabilitation Hospital, AvonMCV Auto (RBC) [Entitic vol]on 10-06-3523JLJ (RBC) [Entitic vol]82.8 fL 81.0-99.0[facility] HospitalMonocytes Auto (Bld) [#/Vol]on 52-82-8757Vknwjyhff (Bld) [#/Vol]0.5 10 3/uL0.3-0.8[facility] HospitalMonocytes/100 WBC Auto (Bld)on 98-41-7925Zfydmxtia/100 WBC (Bld)5.4 % 1.7-12.0[facility] HospitalNeutrophils Auto (Bld) [#/Vol]on 52-27-6674Iivizrtdrut (Bld) [#/Vol]5.3 10 3/uL1.4-6.5FSelect Medical Cleveland Clinic Rehabilitation Hospital, AvonNeutrophils/100 WBC Auto (Bld)on 03-13-2638Jaaavvkvzas/100 WBC (Bld)58.8 % 43.0-75.0[facility] HospitalNo Panel Informationon 08-02-2024 Eosinophils # (Auto)0.1 10 3/uL0.0-0.7FSelect Medical Cleveland Clinic Rehabilitation Hospital, AvonImmature Granulocyte # (Auto)0.02 10 3/uL0.00-0.03[facility] Platelet mean volume Auto (Bld) [Entitic vol]on 01-13-8595Zflvdpnj mean volume (Bld) [Entitic vol]8.9 fLLow9.5-13.5FSelect Medical Cleveland Clinic Rehabilitation Hospital, AvonPlatelets Auto (Bld) [#/Vol]on 05-09-0308Rcsijrmck (Bld) [#/Vol]369 10 3/fC663-095 [facility] HospitalRBC Auto (Bld) [#/Vol]on 14-31-0258RHU (Bld) [#/Vol]5.28 10 6/uL4.20-5.40[facility] HospitalALL CBC WITH AUTO DIFFon 28-46-7264SVJZZNYHQ ABSOLUTE AUTO0.1NOMS HealthcareBasophils/100 WBC (Bld)0.6 %0.2 - 2.0 %NOMS HealthcareEosinophils/100 WBC (Bld)1.8 %0.9 - 7.0 % NOMS HealthcareErythrocyte distribution width (RBC) [Ratio]13.2 %11.0 - 15.0 % NOMS HealthcareHematocrit (Bld) [Volume fraction]40.5 %36.0 - 48.0 %[facility] HospitalHemoglobin (Bld) [Mass/Vol]13.1 g/dL12.0 - 16.0 g/dLChildren's Mercy Hospital IMMATURE GRANULOCYTES ABS AUTO0.02NOMadison Medical CenterImmature granulocytes/100 WBC (Bld)0.2 %0.0 - 0.5 %[facility] HospitalInterpretation and review of laboratory resultsAbnormalChildren's Mercy HospitalLYMPHOCYTES ABSOLUTE AUTO2.7NOMS [facility] Lymphocytes/100 WBC (Bld)30.8 %20.5 - 60.0 %[facility] HospitalH (RBC) [Entitic mass]26.6 pgLow26.7 - 34.0 pgSt. Luke's HospitalHC (RBC) [Mass/Vol]32.3 g/dL29.9 - 35.2 g/dLSt. Luke's HospitalV (RBC) [Entitic vol]82.3 fL81.0 - 99.0 fLChildren's Mercy HospitalMONOCYTES ABSOLUTE AUTO0.6NOMadison Medical CenterMonocytes/100 WBC (Bld)6.6 % 1.7 - 12.0 %[facility] HospitalNEUTROPHILS ABSOLUTE AUTO5.3NOMS [facility] Neutrophils/100 WBC (Bld)60 %43.0 - 75.0 %[facility] HospitalPlatelet mean volume (Bld) [Entitic vol]9.1 fLLow9.5 - 13.5 fLChildren's Mercy HospitalTBH EO #0.2NOMS HealthcareTB [id number] [facility] RBC4.92NOMS [facility] HospitalTB WBC8.8NOMS [facility] HospitalCLINISYNCNOMS HealthcareBasophils Auto (Bld) [#/Vol]on 07-23-2024 Basophils (Bld) [#/Vol]0.1 10 3/uL0.0-0.1FSelect Medical Cleveland Clinic [facility], [place]on Basophils/100 WBC Auto (Bld)on 11-59-2728Rdwqpomjr/100 WBC (Bld)0.6 %0.2-2.0 [facility] HospitalECG 12-LEADon 38-76-5925[address] [address] Electrocardiograph Report Signed Patient: KARLENE ALFRAO MR#: [id number] : 1990 Acct:[id number] Age/Sex: 34 / F ADM Date: 07/23/24 Loc: PST Attending Dr: Brent Roland D.O. Ordering Physician: Brent Roland D.O. 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 Measurements Intervals [place] Rate: 71 P: 33 LA: 148 QRS: 42 QRSD: 82 T: 30 QT: 389 QTc: 424 Interpretive Statements SINUS RHYTHM POSSIBLE RIGHT VENTRICULAR CONDUCTION DELAY [RSR (QR) IN V1/V2] Borderline ECG Compared to ECG 05/02/2023 11:46:38 Sinus tachycardia no longer present Right-axis deviation no longer present Electronically Signed On 07-23-2024 11:53:48 EDT by CHUY SHABAZZ M.D. Dictated By: CHUY SHABAZZ Signed By: 07/23/24 1154 DD/ 1129 TD/TT: Costume Draper:TBHRadiology, Radiologist, MD - 07/23/2024 [place] [address] Electrocardiograph Report Signed Patient: KARLENE ALFARO MR#: [id number] : 1990 Acct:[id number] Age/Sex: 34 / F ADM Date: 07/23/24 Loc: PST Attending Dr: Brent Roland D.O. Ordering Physician: Brent Roland D.O. 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 Measurements Intervals [place] Rate: 71 P: 33 LA: 148 QRS: 42 QRSD: 82 T: 30 QT: 389 QTc: 424 Interpretive Statements SINUS RHYTHM POSSIBLE RIGHT VENTRICULAR CONDUCTION DELAY [RSR (QR) IN V1/V2] Borderline ECG Compared to ECG 05/02/2023 11:46:38 Sinus tachycardia no longer present Right-axis deviation no longer present Electronically Signed On 07-23-2024 11:53:48 EDT by CHUY SHABAZZ M.D. Dictated By: CHUY SHABAZZ Signed By: 07/23/24 1151 DD/ 1129 TD/TT: Costume Draper: LALO HealthcareRadiology Study observation (narrative)[facility] HospitalEC 12-LEAD Ordered By: Radiologist Radiology on 20-55-4828IA[facility] Work Phone: Eosinophils/100 WBC Auto (Bld)on 07-23-2024 Eosinophils/100 WBC (Bld)1.8 %0.9-7.0[facility] Erythrocyte distribution width Auto (RBC) [Ratio]on 11-90-6238Rxhpmcidovc distribution width (RBC) [Ratio]13.2 %11.0-15.0[facility] Estimated glomerular filtration rate (GFR) non- Americanon 07-23-2024 GFR/1.73 sq M.predicted among non-blacks MDRD (S/P/Bld) [Vol rate/Area] mL/min/{1.73_m2}>=60 mL/min/1.[address]m [address] [place], [place] [address]Globulin Calc (S) [Mass/Vol]on 25-29-0261Rtucaqwn (S) [Mass/Vol]3.6 g/dLMercer County Community HospitalHematocrit Auto (Bld) [Volume fraction]on 07-23-2024 Hematocrit (Bld) [Volume fraction]40.5 %36.0-48.0[facility] HospitalHemoglobin [Mass/volume] in Bloodon 33-72-6076Iusralyqzf (Bld) [Mass/Vol] 13.1 g/dL12.0-16.0[facility] HospitalLaboratory - Chemistry and Chemistry - challengeon 86-64-0800Gfbnwfl [Mass/Vol]3.5 g/dL3.4-5.0[facility] HospitalALP [Catalytic activity/Vol]70 U/D16-661OdszgjydwMercer County Community HospitalALT [Catalytic activity/Vol]37 U/O84-09SnbgxpdxtMercer County Community HospitalAST [Catalytic activity/Vol]15 U/K51-84JqwnkecpuMercer County Community HospitalBilirubin [Mass/Vol]0.3 mg/dL0.2-1.0[facility] Calcium [Mass/Vol]8.6 mg/dL8.5-10.1FSelect Medical Cleveland Clinic Rehabilitation Hospital, AvonChloride [Moles/Vol]105 mmol/X53-963LrdtpjlqgMercer County Community HospitalCO2 [Moles/Vol]26.9 mmol/L21.0-32.0[facility] HospitalCreatinine [Mass/Vol]0.83 mg/dL 0.55-1.02[facility] HospitalGFR/1.73 sq M.predicted MDRD (S/P/Bld) [Vol rate/Area]mL/min/{1.73_m2}>=60 mL/min/1.73m 2FSelect Medical Cleveland Clinic Rehabilitation Hospital, AvonGlucose [Mass/Vol]88 mg/iK08-448DarkjxiykMercer County Community HospitalPotassium [Moles/Vol]4.3 mmol/L3.5-5.1FSelect Medical Cleveland Clinic Rehabilitation Hospital, AvonProtein [Mass/Vol] 7.1 g/dL6.4-8.2FOhioHealth Pickerington Methodist Hospitalodium [Moles/Vol]138 mmol/L 136-145Mer[facility] HospitalUrea nitrogen [Mass/Vol]14.0 mg/dL 7.0-18.0[facility] HospitalUrea nitrogen/Creatinine [Mass ratio] 16.9 mg/mgMercer County Community HospitalLaboratory - Hematology and Cell countson 20-94-8022Uycftgsz granulocytes/100 WBC (Bld)0.2 %0.0-0.5FSelect Medical Cleveland Clinic Rehabilitation Hospital, AvonLeukocytes [#/volume] corrected for nucleated erythrocytes in Blood by Automated counon 98-62-3768JGL corrected for nucl RBC Auto (Bld) [#/Vol]8.8 10 3/uL4.0-11.0[facility] Lymphocytes Auto (Bld) [#/Vol]on 42-55-8020Xadjazwepgd (Bld) [#/Vol]2.7 10 3/uL 1.2-3.8[facility] HospitalLymphocytes/100 WBC Auto (Bld)on 74-28-3309Rfhntyisqwn/100 WBC (Bld)30.8 %20.5-60.0[facility] HospitalH Auto (RBC) [Entitic mass]on 52-07-4998PHB (RBC) [Entitic mass]26.6 pg Low26.7-34.0[facility] HospitalHC Auto (RBC) [Mass/Vol]on 46-22-0347JAQB (RBC) [Mass/Vol]32.3 g/dL29.9-35.2FSelect Medical Cleveland Clinic Rehabilitation Hospital, AvonMCV Auto (RBC) [Entitic vol]on 35-62-6164HQF (RBC) [Entitic vol]82.3 fL 81.0-99.0[facility] HospitalMonocytes Auto (Bld) [#/Vol]on 98-64-8944Hfecwfbjh (Bld) [#/Vol]0.6 10 3/uL0.3-0.8[facility] HospitalMonocytes/100 WBC Auto (Bld)on 34-65-8068Sxcriliep/100 WBC (Bld)6.6 % 1.7-12.0[facility] HospitalNeutrophils Auto (Bld) [#/Vol]on 72-58-4854Saresjachwf (Bld) [#/Vol]5.3 10 3/uL1.4-6.5FSelect Medical Cleveland Clinic Rehabilitation Hospital, AvonNeutrophils/100 WBC Auto (Bld)on 39-38-8399Hrlvpoorydj/100 WBC (Bld)60.0 % 43.0-75.0[facility] HospitalNo Panel Informationon 07-23-2024 Eosinophils # (Auto)0.2 10 3/uL0.0-0.7FSelect Medical Cleveland Clinic Rehabilitation Hospital, AvonImmature Granulocyte # (Auto)0.02 10 3/uL0.00-0.03[facility] Platelet mean volume Auto (Bld) [Entitic vol]on 40-49-4603Piocsegd mean volume (Bld) [Entitic vol]9.1 fLLow9.5-13.5FSelect Medical Cleveland Clinic Rehabilitation Hospital, AvonPlatelets Auto (Bld) [#/Vol]on 98-68-6994Krlwrmdwj (Bld) [#/Vol]380 10 3/aS425-907 [facility] HospitalRBC Auto (Bld) [#/Vol]on 84-32-2952YTY (Bld) [#/Vol]4.92 10 6/uL4.20-5.40[facility] Systemerum or plasma albumin/globulin mass ratioon 83-12-7852Gdkgsah/Globulin [Mass ratio]1.0 {ratio} [facility] Health Systemerum or plasma anion gap determinationon 08-16-4667Fdhcp gap [Moles/Vol]10.4 mmol/LFSelect Medical Cleveland Clinic Rehabilitation Hospital, Avon RECURRENT VAGINITIS (HTRX)on 19-33-1707UCQVFODPW SQZQPSW76.718AbnormalNOMS HealthcareATOPOBIUM VAGINAEDetectedAbnormalNOMS HealthcareBVAB 2,3 (BACTERIAL VAGINOSIS ASSOCIATED BACTERIA 2, 3); MOBILUNCUS PXE9WXBN HealthcareBVAB 2,3 (BACTERIAL VAGINOSIS ASSOCIATED BACTERIA 2, 3); MOBILUNCUS SPPNot detectedNOMS HealthcareCANDIDA ALBICANS, PARAPSILOSIS, VOHNZRLKQB4OXYD HealthcareCANDIDA ALBICANS, PARAPSILOSIS, TROPICALISNot detectedNOMS HealthcareCANDIDA GLABRATA0 NOMS HealthcareCANDIDA GLABRATANot detectedNOMS HealthcareCANDIDA EAIEMY9DJJN HealthcareCANDIDA KRUSEINot detectedNOMS HealthcareCHLAMYDIA SYWXZEZJVGO8QQFG HealthcareCHLAMYDIA TRACHOMATISNot detectedNOMS HealthcareGARDNERELLA VAGINALIS0 NOMS HealthcareGARDNERELLA VAGINALISNot detectedNOMS HealthcareInterpretation and review of laboratory resultsAbnormalNOMS HealthcareMEGASPHAERA (TYPES 1, 2)0 NOMS HealthcareMEGASPHAERA (TYPES 1, 2)Not detectedNOMS HealthcareMYCOPLASMA MYPNDHXODR1OHAB HealthcareMYCOPLASMA GENITALIUMNot detectedNOMS Healthcare NEISSERIA KRMCTJPWDEL8ZCSS HealthcareNEISSERIA GONORRHOEAENot detectedNOMS HealthcareTRICHOMONAS PTNSOUGER8LPTA HealthcareTRICHOMONAS VAGINALISNot detected NOMS HealthcareNOMS HealthcareUrinalysis macro [...] 12 mg/dLNOMS HealthcareNOMS HealthcareUS PELVIS W/ TRANSVAGINALon 46-20-8865Ezh[place] [address] Ultrasound Report Signed Patient: KARLENE ALFARO MR#: [id number] : 1990 Acct:[id number] Age/Sex: 34 / F ADM Date: 07/03/24 Loc: US Attending Dr: Brent Roland D.O. Ordering Physician: Brent Roland D.O. Date of Service: 07/03/24 Procedure(s): US pelvis w/ transvaginal Accession Number(s): [id number] cc: Surya Hodges M.D.; Brent Roland D.O. The [address] [address] Patient Name: KARLENE ALFARO MRN: [id number] date: 1990 Sex: F Assigned Patient Location: US Current Patient Location: US Accession/Order Number: [id number] Exam Date: 07/03/2024 09:28 Report Date: 07/03/2024 [...] Jovan Martin M.D.07/03/2024 9:30 AM Dictation Location: [place] [address] Electronically authenticated by: [id number] Y Date: 07/03/2024 09:30 Dictated By: Jovan Martin D.O. Signed By: 07/03/2433 DD/ 9 TD/TT: Costume Draper:TBHRadiology, Radiologist, - 07/03/2024 [place] [address] Ultrasound Report Signed Patient: KARLENE ALFARO MR#: [id number] : 1990 Acct:[id number] Age/Sex: 34 / F ADM Date: 07/03/24 Loc: US Attending Dr: Brent Roland D.O. Ordering Physician: Brent Roland D.O. Date of Service: 07/03/24 Procedure(s): US pelvis w/ transvaginal Accession Number(s): [id number] cc: Surya Hodges M.D.; Brent Roland D.O. The [place] [id number] Patient Name: KARLENE ALFARO MRN: [id number] date: 1990 Sex: F Assigned Patient Location: US Current Patient Location: US Accession/Order Number: [id number] Exam Date: 07/03/2024 09:28 Report Date: 07/03/2024 [...] Jovan Martin M.D.07/03/2024 9:30 AM Dictation Location: [place] [address] Electronically authenticated by: [id number] Y Date: 07/03/2024 09:30 Dictated By: Jovan Martin D.O. Signed By: 07/03/2433 DD/ 9 TD/TT: Costume Draper: LALO HealthcareRadiology Study observation (narrative)LALO HealthcareUS PELVIS W/ TRANSVAGINALOrdered By: Radiologist Radiology on 47-00-6477DIS[facility] Work Phone: basophils Auto (Bld) [#/Vol]on 36-98-0206Ykniwhpmb (Bld) [#/Vol]0.0 10 3/uL0.0-0.1FSelect Medical Cleveland Clinic Rehabilitation Hospital, AvonBasophils/100 WBC Auto (Bld)on 69-23-3028Ykqkzttyp/100 WBC (Bld)0.5 %0.2-2.0[facility] HospitalCholesterol in LDL Calc [Mass/Vol]on 42-37-8483Ymexmvfgzer in LDL [Mass/Vol]149.0 mg/dLMercer County Community HospitalComment on above:<100 mg/dl CVHJVYV546-849 mg/dl NEAR OR ABOVE LVKVOQM817-682 mg/dl BORDERLINE FVAD525-286 mg/dl HIGH>190 mg/dl VERY HIGHCholesterol in VLDL Calc [Mass/Vol]on 80-21-0420Kppkppaeyku in VLDL [Mass/Vol]20.4 mg/dLMercer County Community HospitalEosinophils/100 WBC Auto (Bld)on 82-83-9403Bndthuwyaxc/100 WBC (Bld)1.6 % 0.9-7.0[facility] HospitalErythrocyte distribution width Auto (RBC) [Ratio]on 00-00-3926Knizhsguoxt distribution width (RBC) [Ratio]13.2 % 11.0-15.0[facility] HospitalEstimated glomerular filtration rate (GFR) non- Americanon 89-35-0155ZCY/1.73 sq M.predicted among non-blacks MDRD (S/P/Bld) [Vol rate/Area]mL/min/{1.73_m2}>=60[facility] HospitalGlobulin Calc (S) [Mass/Vol]on 21-02-9293Escwfkot (S) [Mass/Vol]3.8 g/dL [facility] HospitalHematocrit Auto (Bld) [Volume fraction]on 36-10-9939Twurjtidmz (Bld) [Volume fraction]41.8 %36.0-48.0[facility] HospitalHemoglobin [Mass/volume] in Bloodon 28-00-5400Gehgahqtfc (Bld) [Mass/Vol]13.3 g/dL12.0-16.0[facility] HospitalLaboratory - Chemistry and Chemistry - challengeon 65-11-1939Dhemgbv [Mass/Vol]3.9 g/dL 3.4-5.0[facility] HospitalALP [Catalytic activity/Vol]70 U/L46-116 [facility] HospitalALT [Catalytic activity/Vol]20 U/L14-59 [facility] HospitalAST [Catalytic activity/Vol]12 U/AMsa19-61 [facility] HospitalBilirubin [Mass/Vol]0.6 mg/dL0.2-1.0[facility] HospitalCalcium [Mass/Vol]8.7 mg/dL8.5-10.1FSelect Medical Cleveland Clinic Rehabilitation Hospital, AvonChloride [Moles/Vol]102 mmol/P38-538HlzeehqeuMercer County Community HospitalCholesterol [Mass/Vol]226 mg/dLHigh<=200[facility] Cholesterol in HDL [Mass/Vol]57 mg/fE20-70BdojxfxuyMercer County Community Hospital Comment on above:> or =60 mg/dl - LOW CARDIOVASCULAR RISK<40 mg/dl - HIGH CARDIOVASCULAR RISKCO2 [Moles/Vol]27.2 mmol/L21.0-32.0[facility] HospitalCreatinine [Mass/Vol]0.86 mg/dL0.55-1.02[facility] GFR/1.73 sq M.predicted MDRD (S/P/Bld) [Vol rate/Area]mL/min/{1.73_m2}>=60 [facility] HospitalGlucose [Mass/Vol]89 mg/eZ98-025LmnpwriamMercer County Community HospitalPotassium [Moles/Vol]4.0 mmol/L3.5-5.1FSelect Medical Cleveland Clinic Rehabilitation Hospital, AvonProtein [Mass/Vol]7.7 g/dL6.4-8.2FSelect Medical Cleveland Clinic Rehabilitation [facility], [place] Sodium [Moles/Vol]139 mmol/D442-969VfkobqynmMercer County Community HospitalTriglyceride [Mass/Vol]102 mg/dL<=150[facility] HospitalUrea nitrogen [Mass/Vol]9.0 mg/dL7.0-18.0[facility] HospitalUrea nitrogen/Creatinine [Mass ratio]10.5 mg/mgMercer County Community Hospital Laboratory - Hematology and Cell countson 44-93-5953Xvmpyxsk granulocytes/100 WBC (Bld)0.2 %0.0-0.5FSelect Medical Cleveland Clinic Rehabilitation Hospital, AvonLeukocytes [#/volume] corrected for nucleated erythrocytes in Blood by Automated counon 11-86-5180RBD corrected for nucl RBC Auto (Bld) [#/Vol]8.0 10 3/uL4.0-11.0[facility] HospitalLymphocytes Auto (Bld) [#/Vol]on 95-44-3341Ldcqlowcjjp (Bld) [#/Vol]2.4 10 3/uL1.2-3.8[facility] HospitalLymphocytes/100 WBC Auto (Bld)on 30-00-4884Behhlthvqub/100 WBC (Bld)29.7 %20.5-60.0[facility] HospitalH Auto (RBC) [Entitic mass]on 63-90-7773PUM (RBC) [Entitic mass]26.3 pgLow26.7-34.0[facility] HospitalMCHC Auto (RBC) [Mass/Vol]on 95-04-3443NDPK (RBC) [Mass/Vol]31.8 g/dL29.9-35.2FSelect Medical Cleveland Clinic Rehabilitation Hospital, AvonMCV Auto (RBC) [Entitic vol]on 15-16-3542GIF (RBC) [Entitic vol]82.6 fL81.0-99.0[facility] HospitalMonocytes Auto (Bld) [#/Vol]on 17-22-7237Wxvdlyfmd (Bld) [#/Vol]0.4 10 3/uL0.3-0.8[facility] HospitalMonocytes/100 WBC Auto (Bld)on 90-66-9018Wclcoewfd/100 WBC (Bld)5.5 %1.7-12.0[facility] HospitalNeutrophils Auto (Bld) [#/Vol]on 27-61-0525Ahyjcsrbldc (Bld) [#/Vol]5.0 10 3/uL1.4-6.5FSelect Medical Cleveland Clinic Rehabilitation Hospital, AvonNeutrophils/100 WBC Auto (Bld)on 09-07-2023 Neutrophils/100 WBC (Bld)62.5 %43.0-75.0[facility] HospitalNo Panel Informationon 18-35-2451Vdkulshideo # (Auto)0.1 10 3/uL0.0-0.7FSelect Medical Cleveland Clinic Rehabilitation Hospital, AvonImmature Granulocyte # (Auto)0.02 10 3/uL0.00-0.03 [facility] HospitalPlatelet mean volume Auto (Bld) [Entitic vol]on 53-58-5672Mupyvrch mean volume (Bld) [Entitic vol]9.4 fLLow9.5-13.5FSelect Medical Cleveland Clinic Rehabilitation Hospital, AvonPlatelets Auto (Bld) [#/Vol]on 99-38-6863Rishjwjgr (Bld) [#/Vol]381 10 3/hT696-272FdvlyjracMercer County Community HospitalRBC Auto (Bld) [#/Vol] on 20-74-3994QTY (Bld) [#/Vol]5.06 10 6/uL4.20-5.40[facility] Systemerum or plasma albumin/globulin mass ratioon 54-59-5579Ruxmaxf/Globulin [Mass ratio]1.0 {ratio}[facility] Systemerum or plasma anion gap determinationon 08-21-7594Rxscx gap [Moles/Vol]13.8 mmol/LFOhioHealth Pickerington Methodist Hospitalerum or plasma total cholesterol/high density lipoprotein (HDL) cholesterol mass [place] 43-25-7839Isufcalbfai.total/Cholesterol in HDL [Mass ratio]4.0 {ratio}[facility] HospitalComment on above:3.3 - 4.4 LOW RISK4.4 - 7.1 AVERAGE RISK7.1 - 11.0 MODERATE RISK>11.0 HIGH RISKBasophils Auto (Bld) [#/Vol]on 81-14-7761Bsyzelagx (Bld) [#/Vol]0.1 10 3/uL0.0-0.1FSelect Medical Cleveland Clinic Rehabilitation Hospital, AvonBasophils/100 WBC Auto (Bld)on 29-75-2021Nfrmxnake/100 WBC (Bld)0.4 %0.2-2.0[facility] HospitalEosinophils/100 WBC Auto (Bld)on 62-76-9405Rqczduiovkj/100 WBC (Bld)0.1 %0.9-7.0[facility] HospitalErythrocyte distribution width Auto (RBC) [Ratio]on 05-02-2023 Erythrocyte distribution width (RBC) [Ratio]13.1 %11.0-15.0[facility] HospitalEstimated glomerular filtration rate (GFR) non- Americanon 81-77-2123ZFK/1.73 sq M.predicted among non-blacks MDRD (S/P/Bld) [Vol rate/Area]mL/min/{1.73_m2}>=60[facility] HospitalHematocrit Auto (Bld) [Volume fraction]on 77-25-4558Jspbstkrkq (Bld) [Volume fraction]41.6 % 36.0-48.0[facility] HospitalHemoglobin [Mass/volume] in Bloodon 19-06-6089Ebnuagtpof (Bld) [Mass/Vol]13.6 g/dL12.0-16.0[facility] HospitalLaboratory - Chemistry and Chemistry - challengeon 05-02-2023 Calcium [Mass/Vol]8.7 mg/dL8.5-10.1FSelect Medical Cleveland Clinic Rehabilitation Hospital, AvonChloride [Moles/Vol]101 mmol/V96-483VlxfqpivrMercer County Community HospitalCO2 [Moles/Vol]24.8 mmol/L21.0-32.0[facility] HospitalCreatinine [Mass/Vol]0.89 mg/dL 0.55-1.02[facility] HospitalGFR/1.73 sq M.predicted MDRD (S/P/Bld) [Vol rate/Area]mL/min/{1.73_m2}>=60[facility] HospitalGlucose [Mass/Vol]112 mg/bV44-475TxwiqslrzMercer County Community HospitalPotassium [Moles/Vol] 4.0 mmol/L3.5-5.1FOhioHealth Pickerington Methodist Hospitalodium [Moles/Vol]137 mmol/L 136-145Mer[facility] HospitalUrea nitrogen [Mass/Vol]5.0 mg/dL 7.0-18.0[facility] HospitalUrea nitrogen/Creatinine [Mass ratio] 5.6 mg/mgMercer County Community HospitalLaboratory - Hematology and Cell countson 92-30-1561Neblcuht granulocytes/100 WBC (Bld)0.3 %0.0-0.5FSelect Medical Cleveland Clinic Rehabilitation Hospital, AvonLaboratory - Microbiology and Antimicrobial susceptibilityon 05-02-2023S. pyogenes Ag Ql (Unsp spec)PositiveFirelands Regional Medical CmyogxFZEZ-UyY-9 (COVID-19) RNA LEO+probe Ql (Unsp spec) NegativeNEGATIVEMercer County Community HospitalComment on above:This test has not been FDA [...] nucleated erythrocytes in Blood by Automated counon 34-50-1276CNR corrected for nucl RBC Auto (Bld) [#/Vol]12.4 10 3/uL4.0-11.0[facility] HospitalLymphocytes Auto (Bld) [#/Vol]on 01-22-9618Hbxymlaokgz (Bld) [#/Vol]1.0 10 3/uL1.2-3.8[facility] HospitalLymphocytes/100 WBC Auto (Bld)on 05-02-2023 Lymphocytes/100 WBC (Bld)7.9 %20.5-60.0[facility] HospitalH Auto (RBC) [Entitic mass]on 99-47-8525ZFD (RBC) [Entitic mass]27.9 pg26.7-34.0 [facility] HospitalMCHC Auto (RBC) [Mass/Vol]on 66-07-0897TDOC (RBC) [Mass/Vol]32.7 g/dL29.9-35.2FOhioHealth Shelby HospitalV Auto (RBC) [Entitic vol]on 74-09-9245VFG (RBC) [Entitic vol]85.2 fL81.0-99.0[facility] HospitalMonocytes Auto (Bld) [#/Vol]on 81-28-1712Ylibseetz (Bld) [#/Vol]0.8 10 3/uL0.3-0.8[facility] HospitalMonocytes/100 WBC Auto (Bld)on 34-27-5243Nlxxkjmxf/100 WBC (Bld)6.3 %1.7-12.0[facility] HospitalNeutrophils Auto (Bld) [#/Vol]on 20-36-3917Jtqsqcrljdm (Bld) [#/Vol]10.5 10 3/uL1.4-6.5FSelect Medical Cleveland Clinic Rehabilitation Hospital, AvonNeutrophils/100 WBC Auto (Bld)on 35-28-5850Zmvlshlxihz/100 WBC (Bld)85.0 %43.0-75.0[facility] HospitalNo Panel Informationon 20-27-0428Lmbcvxx Influenza Type A AntigenNegativeMercer County Community HospitalComment on above:Negative for Flu A protein antigen. Infection due to Flu Acannot be ruled out. Flu A antigen in thesample may bebelow the detection limit of the test.Bedside Influenza Type B AntigenNegativeMercer County Community HospitalComment on above:Negative for Flu B protein antigen. Infection due to Flu Bcannot be ruled out. Flu B antigen in thesample may bebelow the detection limit of the test.Eosinophils # (Auto)0.0 10 3/uL0.0-0.7FSelect Medical Cleveland Clinic Rehabilitation Hospital, AvonImmature Granulocyte # (Auto) 0.04 10 3/uL0.00-0.03[facility] HospitalMonoscreenNegativeNEGATIVE [facility] Community HospitalPlatelet mean volume Auto (Bld) [Entitic vol]on 91-80-8755Rppsudtt mean volume (Bld) [Entitic vol]8.9 fL9.5-13.5FSelect Medical Cleveland Clinic Rehabilitation Hospital, AvonPlatelets Auto (Bld) [#/Vol]on 18-91-8215Xuozwsvos (Bld) [#/Vol]369 10 3/dK463-260VdfzyohjpMercer County Community HospitalRBC Auto (Bld) [#/Vol] on 52-51-9349RBI (Bld) [#/Vol]4.88 10 6/uL4.20-5.40[facility] Systemerum or plasma anion gap determinationon 54-87-2892Yswhs gap [Moles/Vol] 15.2 mmol/LFSelect Medical Cleveland Clinic Rehabilitation Hospital, AvonCytology Cervical or vaginal smear or scraping studyOrdered By: Kenyatta Salazar on 10-60-2575RCQUChildren's Mercy Hospital Cholesterol [Mass/volume] in Serum or PlasmaOrdered By: Baljinder oPlanco on 68-32-0589Uxaeknesngq [Mass/Vol]214 mg/gH327-413QawhmtwlrMercer County Community HospitalComment on above:Chol less than 200 mg/dl low riskChol 201-239 mg/dl borderline riskChol 240 mg/dl and greater high riskCholesterol in LDL Calc [Mass/Vol]Ordered By: Baljinder Polanco on 81-55-7016Lqqzuclmdmw in LDL [Mass/Vol] 132 mg/dL0-100Mer[facility] HospitalComment on above:LDL ATP III CLASSIFICATIONLDL less than 100 mg/dL OptimalLDL 100-129 mg/dL Near or above ipbddccHEL529-966 mg/dL Borderline highLDL 160-189 mg/dL HighLDL greater than 189 mg/dL Very highCholesterol in VLDL Calc [Mass/Vol]Ordered By: Baljinder Polanco on 28-19-3692Mhxzqhmxnyz in VLDL [Mass/Vol]27 mg/dLMercer County Community HospitalGlucose mean value [Mass/volume] in Blood Estimated from glycated hemoglobinOrdered By: Baljinder Polanco on 61-74-0625Fyvcegi glucose Estimated from glycated hemoglobin (Bld) [Mass/Vol]120 mg/dLMercer County Community Hospital Hemoglobin A1c percentageOrdered By: Baljinder Polanco on 47-74-2439YdS0z (Bld) [Mass fraction]5.8 %4.3-5.6FSelect Medical Cleveland Clinic Rehabilitation Hospital, AvonComment on above: Increased risk for diabetes: 5.7 - 6.4diabetes: >6.4glycemic control for adults with diabetes: <7.0Serum or plasma high density lipoprotein (HDL) cholesterol measurementOrdered By: Baljinder Polanco on 48-79-5559Ecwmchncvio in HDL [Mass/Vol] 54 mg/qL58-64PkldyubnbMercer County Community HospitalComment on above:HDL CHOL ATP-III CLASSIFICATION Cardiovascular RiskHDL > or equal to 60 mg/dL LOWHDL < 40 mg/dL HIGHSerum or plasma total cholesterol/high density lipoprotein (HDL) cholesterol mass ratOrdered By: Baljinder Polanco on 40-19-6100Xivohjpxtgm.total/Cholesterol in HDL [Mass ratio]4.0 {ratio}<5.0[facility] HospitalTriglyceride [Mass/volume] in Serum or PlasmaOrdered By: Baljinder Polanco on 12-01-2022 Triglyceride [Mass/Vol]139 mg/dL0-149Mercer County Community HospitalComment on above:TRIG ATP III CLASSIFICATIONTRIG less than 150 mg/dL NormalTRIG 150-199 mg/dL Borderline highTRIG 200-500 mg/dL High TRIG greater than 500 mg/dL Very highStandard traceable to the Center for Disease Conrtrol and Prevention (CDC) test method.Troponin I.cardiac [Mass/volume] in Serum or Plasma by Detection limit <= 0.01 ng/Ordered By: Baljinder Polanco on 41-70-7938Nlvlaamn I.cardiac DL <= 0.01 ng/mL [Mass/Vol]27.1 pg/mL0.0-15.0[facility] Activated partial thromboplastin time (aPTT) in platelet poor plasma by coagulation aOrdered By: Marcio Steven on 86-72-0542qBPV Coag (PPP) [Time]32.4 s 25.1-36.5FSelect Medical Cleveland Clinic Rehabilitation Hospital, AvonComment on above:A hematocrit value greater than 55% may lead to inaccurate results in coagulation testing. Patients having hematocrit values >55% require a special collection tube for coagulation studies. Please contact the laboratory at [phone] for redraw instructions. Alanine aminotransferase [Enzymatic activity/volume] in Serum or PlasmaOrdered By: Marcio Steven on 92-16-2050SAM [Catalytic activity/Vol]16 U/L7-52[facility] Community HospitalAlbumin [Mass/volume] in Serum or Plasma by Bromocresol green (BCG) dye binding methoOrdered By: Marcio Steven on 41-11-4173Kriwlgu BCG dye [Mass/Vol]4.4 g/dL3.5-5.7FSelect Medical Cleveland Clinic Rehabilitation Hospital, AvonAlkaline phosphatase [Enzymatic activity/volume] in Serum or PlasmaOrdered By: Marcio Steven on 91-50-9066AKM [Catalytic activity/Vol]73 U/Y20-867NupzpncgjMercer County Community HospitalAspartate aminotransferase [Enzymatic activity/volume] in Serum or PlasmaOrdered By: Marcio Steven on 14-57-1100PHK [Catalytic activity/Vol]11 U/L 13-39[facility] HospitalBasic Metabolic Panelon 86-92-0279Blbfiuo [Mass/Vol]9.5915006 mg/dLNormal8.6-10.3 mg/dLMediciNova [employer] Other CO2 [Moles/Vol]23.14224636 mmol/AYkqslm09.0-31.0 mmol/LNEntertainment Magpie Other Creatinine [Mass/Vol]0.66156787 mg/dLNormal0.60-1.20 mg/dLNoIggli Other GFR/1.73 sq M.predicted MDRD (S/P/Bld) [Vol rate/Area] mL/min/{1.73_m2}[employer] Other Potassium [Moles/Vol]4.93199324 mmol/LNormal3.5-5.1 mmol/LNEntertainment Magpie Other Basic Metabolic PanelOrdered By: Marcio Steven on 75-88-2366Nvgeowit [Moles/Vol]104 mmol/X33-890WdzagavhcMercer County Community Hospital Glucose [Mass/Vol]77 mg/jO00-263MucqtsoltMercer County Community HospitalComment on above:ADA recommended reference rangeRandom Glucose Reference Range is dependent on time and content of last meal. Glucose of more than 200 mg/dL in a nonstressed, ambulatory subject supports the diagnosisof Diabetes Mellitus. Sodium [Moles/Vol]138 mmol/J993-345FpzscsvebMercer County Community HospitalUrea nitrogen [Mass/Vol]9 mg/dL7-25Mer[facility] Community HospitalBasophils Auto (Bld) [#/Vol]Ordered By: Marcio Steven on 79-05-5107Jseepbhgw (Bld) [#/Vol]0.1 10*3/uL0.0-0.2FSelect Medical Cleveland Clinic Rehabilitation Hospital, AvonBasophils/100 WBC Auto (Bld) Ordered By: Marcio Steven on 87-54-2266Cqxogqnkj/100 WBC (Bld)0.8 %.[facility] Community HospitalBilirubin Test strip Ql (U)Ordered By: Marcio Steven on 24-30-4812Rwmutjkpl Ql (U)NegativeNegativeMercer County Community Hospital Bilirubin.direct [Mass/volume] in Serum or PlasmaOrdered By: Marcio Steven on 47-76-2432Tbejfgrji.direct [Mass/Vol]0.00 mg/dL0.03-0.18FSelect Medical Cleveland Clinic Rehabilitation Hospital, AvonComment on above:If the DBIL is less than 0.1, IBIL is not able to becalculated.Bilirubin.total [Mass/volume] in Serum or PlasmaOrdered By: Marcio Steven on 29-27-0629Jzfmtejgq [Mass/Vol]0.9 mg/dL0.3-1.0[facility] HospitalCOVID-19 Detected/Not DetectedOrdered By: Marcio Steven on 97-17-1682EBUS-CoV-2 (COVID-19) RNA LEO+non-probe Ql (Nph)Not detectedNot DetectHolzer Medical Center – JacksonComment on above:This is a duplicate RP2.1 COVID (PCR) result to be used for statistical tracking purpose only. Calcium [Mass/volume] in Serum or PlasmaOrdered By: Marcio Steven on 11-30-2022 Calcium [Mass/Vol]9.5 mg/dL8.6-10.3FSelect Medical Cleveland Clinic Rehabilitation Hospital, AvonCarbon dioxide, total [Moles/volume] in Serum or PlasmaOrdered By: Marcio Steven on 47-67-1313DC7 [Moles/Vol]23.9 mmol/L21.0-31.0[facility] Color Auto (U)Ordered By: Marcio Steven on 76-55-4409Infjc (U)YellowYellow [facility] CenterComplete Blood Count Auto Diffon 11-30-2022 Basophils (Bld) [#/Vol]0.900187502 10*3/uLNormal0.0-0.2 10*3/Mavin Other Basophils/100 WBC (Bld)0.800 %. %[employer] Other Eosinophils (Bld) [#/Vol]0.011114090 10*3/uLNormal0.0- 0.45 10*3/[employer] Other Eosinophils/100 WBC (Bld)0.900 %. %[employer] Other Erythrocyte distribution width (RBC) [Ratio]14.300 % Yvjojk57.9-15.3 %[employer] Other Hematocrit (Bld) [Volume fraction]41.000 %Mqouli63.0- 46.4 %[employer] Other Hemoglobin (Bld) [Mass/Vol]13.028166 g/uOKluuur08.8- 15.4 g/dLIggli Other Lymphocytes (Bld) [#/Vol]2.934672269 10*3/uLNormal 1.00-4.8 10*3/[employer] Other Lymphocytes/100 WBC (Bld)32.300 %. %[employer] Other MCH (RBC) [Entitic mass]27.0000 bbAznngk54.7-34.3 pg [employer] Other MCV (RBC) [Entitic vol]81.0000 sRDhxepq84-804 fLIntercytex Group Other Monocytes (Bld) [#/Vol]0.733806865 10*3/uLNormal0.0- 0.8 10*3/[employer] Other Monocytes/100 WBC (Bld)6.800 %. %[employer] Other Neutrophils (Bld) [#/Vol]4.868414409 10*3/uLNormal1.8- 7.7 10*3/[employer] Other Neutrophils/100 WBC (Bld)59.200 %. %[employer] Other Platelet mean volume (Bld) [Entitic vol]7.2000 fL Normal6.3-10.7 fLIggli Other WBC (Bld) [#/Vol]8.655227537 10*3/uLNormal3.8-11.6 10*3/[employer] Other Complete Blood Count Auto Diff8.2 10*3/uLNormal3.8- 11.6 10*3/Mavin Other Complete Blood Count Auto Diff33.3 g/mIJjzwqa82.0-35.0 g/dLIntercytex Group Other Complete Blood Count Auto Diff0.2 /100{WBC}Normal0-0.5 /100{WBC}[employer] Other Complete Blood Count Auto DiffOrdered By: Marcio Steven on 20-91-6559Ulovukxzv (Bld) [#/Vol]368 10*3/rA114-583ZmvrqckiuMercer County Community HospitalRBC (Bld) [#/Vol]5.06 10*6/uL3.60-5.00[facility] Creatine kinase [Enzymatic activity/volume] in Serum or PlasmaOrdered By: Marcio Steven on 69-85-7392ML [Catalytic activity/Vol]18 U/Z54-435GjbnpovmbMercer County Community HospitalCreatinine [Mass/volume] in Serum or PlasmaOrdered By: Marcio Steven on 40-31-7684Hghpviqsmz [Mass/Vol]0.83 mg/dL0.60-1.20[facility] HospitalEosinophils Auto (Bld) [#/Vol]Ordered By: Marcio Steven on 11-30-2022 Eosinophils (Bld) [#/Vol]0.1 10*3/uL0.0-0.45[facility] Eosinophils/100 WBC Auto (Bld)Ordered By: Marcio Steven on 11-30-2022 Eosinophils/100 WBC (Bld)0.9 %.[facility] HospitalErythrocyte distribution width Auto (RBC) [Ratio]Ordered By: Marcio Steven on 11-30-2022 Erythrocyte distribution width (RBC) [Ratio]14.3 %11.9-15.3FSelect Medical Cleveland Clinic Rehabilitation Hospital, AvonFibrin D-dimer [Presence] in Platelet poor plasma by Latex agglutinationOrdered By: Marcio Steven on 41-94-8293Kjrard D-dimer LA Ql (PPP)< 200 ng/mL0-243Mer[facility] County Community HospitalComment on above:The reference range for D-dimer is [...] coagulation studies. Please contact the laboratory at [phone] for redraw instructions.Free T4 (Free Thyroxine)on 71-58-6399Uqbp T4 [Mass/Vol] 1.60568290 ng/dLHigh0.61-1.12 ng/dLNouniversity health lakewood medical center Air2Web Other Globulin Calc (S) [Mass/Vol]Ordered By: Marcio Steven on 03-14-3942Nkxqbepn (S) [Mass/Vol]3.2 g/dLMercer County Community Hospital Glucose Glucometer (BldC) [Mass/Vol]Ordered By: Baljinder Polanco on 11-30-2022 Glucose [Mass/Vol]100 mg/dLMercer County Community HospitalComment on above: Random Glucose Reference Range is dependent on time and content of last meal. Glucose of more than 200 mg/dL in a nonstressed, ambulatory subject supports the diagnosis of Diabetes Mellitus.Hematocrit Auto (Bld) [Volume fraction]Ordered By: Marcio Steven on 10-55-2723Uqlrdkhckp (Bld) [Volume fraction]41.0 %34.0-46.4 [facility] HospitalHemoglobin [Mass/volume] in BloodOrdered By: Marcio Steven on 47-50-6434Hjsmdhgbuz (Bld) [Mass/Vol]13.7 g/dL11.8-15.4FSelect Medical Cleveland Clinic Rehabilitation Hospital, AvonINR in Platelet poor plasma by Coagulation assayOrdered By: Marcio Steven on 85-71-4451RJJ Coag (PPP) [Relative time]1.1 {INR}[facility] HospitalComment on above:INR Therapeutic Range A) Pre- and [...] strip (U) [Mass/Vol]Ordered By: Marcio Steven on 97-40-2982Gbfbchm (U) [Mass/Vol]Trace NegativeMercer County Community HospitalLeukocytes [#/volume] corrected for nucleated erythrocytes in Blood by Automated counOrdered By: Marcio Steven on 98-49-2638RCR corrected for nucl RBC Auto (Bld) [#/Vol]8.2 10*3/uL3.8-11.6 [facility] HospitalLymphocytes Auto (Bld) [#/Vol]Ordered By: Marcio Steven on 35-56-4303Jawkcedrbaf (Bld) [#/Vol]2.7 10*3/uL1.00-4.8[facility] HospitalLymphocytes/100 WBC Auto (Bld)Ordered By: Marcio Steven on 96-00-0554Mscylqtmlvq/100 WBC (Bld)32.3 %.[facility] HospitalH Auto (RBC) [Entitic mass]Ordered By: Marcio Steven on 96-24-0273HHC (RBC) [Entitic mass]27.0 pg24.7-34.3FSelect Medical Cleveland Clinic Rehabilitation Hospital, AvonMCHC Auto (RBC) [Mass/Vol]Ordered By: Marcio Steven on 52-37-6611ZAZR (RBC) [Mass/Vol]33.3 g/dL 32.0-35.0[facility] HospitalMCV Auto (RBC) [Entitic vol]Ordered By: Marcio Steven on 33-64-3520YPT (RBC) [Entitic vol]81.0 bF47-830GvrbfoxnyMercer County Community HospitalMagnesium [Mass/volume] in Serum or PlasmaOrdered By: Marcio Steven on 85-03-5950Inniazkes [Mass/Vol]1.9 mg/dL1.9-2.7FSelect Medical Cleveland Clinic Rehabilitation Hospital, AvonMonocyte distribution width [Entitic volume] in Blood by Automated Ordered By: Marcio Steven on 88-07-6301Yjxmozpo distribution width Auto (Bld) [Entitic vol]19.22 %0.00-20.00[facility] HospitalMonocytes Auto (Bld) [#/Vol]Ordered By: Marcio Steven on 76-88-8293Hasowwrkr (Bld) [#/Vol]0.6 10*3/uL0.0-0.8[facility] HospitalMonocytes/100 WBC Auto (Bld) Ordered By: Marcio Steven on 15-36-6763Jwrezhgyk/100 WBC (Bld)6.8 %.[facility] HospitalNatriuretic peptide B [Mass/Vol]Ordered By: Marcio Steven on 04-84-2174Drqecjvclqs peptide B (Bld) [Mass/Vol]13.0 pg/mL5-100Mer[facility] County Community HospitalNeutrophils Auto (Bld) [#/Vol]Ordered By: Marcio Steven on 78-43-5256Ayvxzcmedle (Bld) [#/Vol]4.9 10*3/uL1.8-7.7FSelect Medical Cleveland Clinic Rehabilitation Hospital, AvonNeutrophils/100 WBC Auto (Bld)Ordered By: Marcio Steven on 11-30-2022 Neutrophils/100 WBC (Bld)59.2 %.[facility] HospitalNitrite Test strip Ql (U)Ordered By: Marcio Steven on 48-77-6989Lnkdxfl Ql (U)NegativeNegative [facility] HospitalNo Panel InformationOrdered By: Marcio Steven on 79-99-3107Yfrlxknzk GFR (CKD-EPI)> 60.0 mL/MinMercer County Community Hospital Pharmacy Creatinine Clearance (Pbqj100.08[facility] Nucleated erythrocytes [Presence] in Blood by Automated countOrdered By: Marcio Steven on 52-81-1912Sxnitttkz RBC Auto Ql (Bld)0.2 /100{WBC}0-0.5FSelect Medical Cleveland Clinic Rehabilitation Hospital, AvonPlatelet mean volume Auto (Bld) [Entitic vol]Ordered By: Marcio Steven on 17-54-1902Yhzhnrpe mean volume (Bld) [Entitic vol]7.2 fL6.3-10.7 [facility] HospitalPotassium [Moles/volume] in Serum or Plasma Ordered By: Marcio Steven on 88-06-4005Mqlzwopig [Moles/Vol]4.1 mmol/L3.5-5.1 [facility] HospitalProtein Auto test strip (U) [Mass/Vol]Ordered By: Marcio Steven on 01-47-0467Jqjqhlx (U) [Mass/Vol]NegativeNegativeMercer County Community HospitalProtein [Mass/volume] in Serum or PlasmaOrdered By: Marcio Steven on 43-05-6418Xanugno [Mass/Vol]7.6 g/dL6.4-8.9[facility] HospitalProthrombin time (PT)Ordered By: Marcio Steven on 97-28-0898XF Coag (PPP) [Time]12.5 s9.0-12.9[facility] HospitalComment on above:A hematocrit value greater than 55% may lead to inaccurate results in coagulation testing. Patientshaving hematocrit values >55% require a special collection tube for coagulation studies. Please contact the laboratory at [phone] for redraw instructions.Respiratory pathogens DNA and RNA panel - Nasopharynx by LEO with non-probe detectionOrdered By: Marcio Steven on 84-46-4810Hfgvxzhojqs pathogens DNA and RNA panel LEO+non-probe (Nph)[facility] Serum or plasma albumin/globulin mass ratioOrdered By: Marcio Steven on 11-30-2022 Albumin/Globulin [Mass ratio]1.4 {ratio}[facility] Systemerum or plasma anion gap determinationOrdered By: Marcio Steven on 71-13-9007Mhowo gap [Moles/Vol]14.2 mmol/L6.0-15.0[facility] Systemerum or plasma non-glucuronidated bilirubin measurement (mass/volume)Ordered By: Marcio Steven on 45-01-4926Nxtecirbx.indirect [Mass/Vol]0.9 mg/dLMemorial Health Systempecific gravity Auto test strip (U) [Rel density]Ordered By: Marcio Steven on 94-04-7473Njfpatht gravity (U) [Rel density]1.0131.001-1.030[facility] HospitalThyroid Stimulating Hormoneon 85-14-2329BBR Qn 0.02257547040 m[IU]/LLow0.45-5.33 u[iU]/[facility] Affairs Medical CenterEntertainment Magpie Other Thyrotropin [Units/volume] in Serum or PlasmaOrdered By: Marcio Steven on 98-50-3848VNL Qn0.03 m[IU]/L0.45-5.33[facility] HospitalThyroxine (T4) free [Mass/volume] in Serum or PlasmaOrdered By: Marcio Steven on 35-16-0941Wjwt T4 [Mass/Vol]1.56 ng/dL0.61-1.12[facility] HospitalTriiodothyronine (T3) Free [Mass/volume] in Serum or Plasma Ordered By: Marcio Steven on 29-73-4070Sifm T3 [Mass/Vol]3.89 pg/mL2.50-3.90 [facility] HospitalUrine clarity by refractometry automatedOrdered By: Marcio Steven on 84-96-8223Pukiqcs Refractometry automated (U)ClearClear [facility] HospitalUrine glucose measurement by automated test strip (mass/volume)Ordered By: Marcio Steven on 35-37-0003Leswioo Auto test strip (U) [Mass/Vol]Normal mg/dLNormOhioHealth Berger HospitalUrine hemoglobin detection by automated test stripOrdered By: Marcio Steven on 71-52-6885Xkhcxgxtfx Auto test strip Ql (U)NegativeNegativeMercer County Community HospitalUrine leukocyte esterase detection by automated test stripOrdered By: Marcio Steven on 13-57-2191Ypfgezfwh esterase Auto test strip Ql (U)Negative NegativeMercer County Community HospitalUrobilinogen Auto test strip (U) [Mass/Vol]Ordered By: Marcio Steven on 59-80-5311Sajykjvcyfou (U) [Mass/Vol]Normal mg/dLNoAkron Children's HospitalWBC Auto (Bld) [#/Vol]Ordered By: Marcio Steven on 13-15-8716MCW (Bld) [#/Vol]8.2 10*3/uL3.8-11.6FSelect Medical Cleveland Clinic Rehabilitation Hospital, AvonpH Auto test strip (U)Ordered By: Marcio Steven on 09-65-1412oL (U) [pH]5.0-9.0[facility] HospitalCORTISOL FREE, SERUMon 06-17-2022 Cortisol, Free Dialysis, LCMS0.649 ug/dLNoJ.W. Ruby Memorial HospitalComment on above:Result Comment: These tests were developed and their performance characteristics determined by [facility]. They have not been cleared or approved by the Food and Drug Administration. Reference Range: 8 AM 0.10 - 1.20 4 PM 0.042 - 0.872Performed By: #### REVRT3 #### [facility] [address] [place] [address] Dr. Dimple ParsonsIRELAND ARMY [facility] AUTO DIFFon 03-65-1649QQEU #0.1 103/ulNormal0.0-0.1The [facility]itrick HospitalComment on above:Performed By: #### REVRT3 #### [facility] [address] [place] [address] Dr. Dimple ParsonsBasophils/100 WBC (Bld)0.6 %Normal0.2-2.0The [facility] Comment on above:Performed By: #### REVRT3 #### [facility] [address] [place] [address] Dr. Dimple Orona #0.4 103/ulNormal0.0-0.7The [facility]itrick HospitalComment on above: Performed By: #### REVRT3 #### [facility] [address] [place] [address] Dr. Dimple Manzanoosinophils/100 WBC (Bld)4.0 %Normal0.9-7.0[facility] Comment on above:Performed By: #### REVRT3 #### [facility] [address] [place] [address] Dr. Dimple Manzanorythrocyte distribution width (RBC) [Ratio]13.8 %Daxfdb29.0-15.0 The [facility]it[facility] HospitalComment on above:Performed By: #### REVRT3 #### [facility] [address] [place] [address] Dr. Dimple ParsonsHematocrit (Bld) [Volume fraction]39.8 %Jeghlw44.0-48.0The [facility] HospitalComment on above:Performed By: #### REVRT3 #### [facility] [address] [place] [address] Dr. Dimple ParsonsHemoglobin (Bld) [Mass/Vol]12.9 g/mPDgggwx17.0-16.0The [facility] HospitalComment on above:Performed By: #### REVRT3 #### [facility] [address] [place] [address] Dr. Dimple Adorno #0.02 10e3/ulNormal0.00-0.03The [facility]itrick HospitalComment on above:Performed By: #### REVRT3 #### [facility] [address] [place] [address] Dr. Dimple Adorno %0.2 %Normal0.0-0.5The [facility]itrick HospitalComment on above: Performed By: #### REVRT3 #### [facility] [address] [place] [address] Dr. Dimple Wells #3.1 103/ulNormal1.2-3.8The [facility]itrick HospitalComment on above:Performed By: #### REVRT3 #### [facility] [address] [place] [address] Dr. Dimple Ortizhocytes/100 WBC (Bld)33.5 %Wrbpxp98.5-60.0The [facility]itrick HospitalComment on above:Performed By: #### REVRT3 #### [facility] [address] [place] [address] Dr. Dimple YepezUAL DIFF REQNONormalThe M[facility]itrick HospitalComment on above: Performed By: #### REVRT3 #### [facility] [address] [place] [address] Dr. Dimple Barnes (RBC) [Entitic mass]26.1 pgCritically low26.7-34.0The [facility]itrick HospitalComment on above:Performed By: #### REVRT3 #### [facility] [address] [place] [address] Dr. Dimple Barnes (RBC) [Mass/Vol]32.4 g/jIYcvsof83.9-35.2The [facility]rick HospitalComment on above:Performed By: #### REVRT3 #### [facility] [address] [place] [address] Dr. Dimple Barnes (RBC) [Entitic vol]80.4 fLCritically low81.0-99.0The [facility] HospitalComment on above:Performed By: #### REVRT3 #### [facility] [address] [place] [address] Dr. Dimple Urias #0.5 103/ulNormal0.3-0.8The [facility] Green HospitalComment on above:Performed By: #### REVRT3 #### [facility] [address] [address] [address] Dimple ParsonsMonocytes/100 WBC (Bld)5.2 %Normal1.7-12.0[facility] Comment on above:Performed By: #### REVRT3 #### [facility] [address] [place] [address] Dr. Dimple LeonardoUT #5.2 103/ulNormal1.4-6.5The [facility] HospitalComment on above:Performed By: #### REVRT3 #### [facility] [address] [place] [address] Dr. Dimple Leonardoutrophils/100 WBC (Bld)56.5 %Lldlap30.0-75.0The [facility] HospitalComment on above:Performed By: #### REVRT3 #### [facility] [address] [place] [address] Dr. Dimple ParsonsPlatelet mean volume (Bld) [Entitic vol]8.7 fLCritically low 9.5-13.5The [facility] HospitalComment on above:Performed By: #### REVRT3 #### [facility] [address] [place] [address] Dr. Dimple ParsonsPLT376 103/liUtecav771-102Jik [facility] HospitalComment on above: Performed By: #### REVRT3 #### [facility] [address] [place] [address] Dr. Dimple ParsonsRBC4.95 106/ulNormal4.20-5.40The [facility] HospitalComment on above:Performed By: #### REVRT3 #### [facility] [address] [place] [address] Dr. Dimple ParsonsWBC9.3 103/ulNormal4.0-11.0The [facility] HospitalComment on above: Performed By: #### REVRT3 #### [facility] [address] [place] [address] Dr. Dimple ParsonsTESTOSTERONE, FREE,DIRECT, TOTALon 68-22-2194Jzul Testosterone(Direct)1.6 pg/mLNormal0.0-4.2The [facility] HospitalComment on above: Result Comment: Performed at: BNPerformed By: #### CBC #### [facility] [address] [place] [address] Dr. Dimple ParsonsTestosterone [Mass/Vol]22 ng/dLNormal8-60[facility] Comment on above:Result Comment: Performed at: CBPerformed By: #### CBC #### [facility] [address] [place] [address] Dr. Musa ChangESTROGENon 62-32-1295Mqmqobjte, Vxtok513 pg/mLNormalThe [facility]itrick HospitalComment on above:Result Comment: Prepubertal < 40 Female Cycle: 1-10 Days 16 - 328 11-20 Days 34 - 501 21-30 Days 48 - 350 Post-Menopausal 40 - 244Performed By: #### DHEASUL #### [facility] [address] [place] [address] Dr. Dimple ParsonsSEROTONINon 74-50-2349Zoefdlwyn, Serum20 ng/mLCritically low 31-207The [facility] HospitalComment on above:Performed By: #### SEROTON #### [facility] [address] [place] [address] Dr. Dimple ParsonsREVERSE T3on 20-78-1602Maenmem T3, Serum15.6 ng/dLNormal9.2-24.1 The [facility] HospitalComment on above:Result Comment: This test was developed and its performance characteristics determined by [facility]. It has not been cleared or approved by the Food and Drug Administration.Performed By: #### REVRT3 #### [facility] [address] [place] [address] Dr. Dimple Infante D 1 25 DIHYDROXYon 50-04-9554Gadhyiklnj(1,25 di-OH Vit D)12.2 pg/mLCritically low24.8-81.5The [facility] HospitalComment on above:Performed By: #### [id number] #### [facility] [address] [place] [address] Dr. Dimple ParsonsC-PEPTIDE, SERUMon 61-66-3142P-Peptide, Serum3.3 ng/mLNormal 1.1-4.4The [facility] HospitalComment on above:Result Comment: C-Peptide reference interval is for fasting patients.Performed By: #### REVRT3 #### [facility] [address] [place] [address] Dr. Dimple CaicedoEA-SULFATEon 15-00-8668JVUF-Eikhfma520.0 ug/xNDkxswa71.8-378.0 The [facility] HospitalComment on above:Performed By: #### DHEASUL #### [facility] [address] [place] [address] Dr. Musa ChangESTRADIOLon 70-10-5436Iusgzeina306.0 pg/mLNormalThe [facility]itrick HospitalComment on above:Result Comment: Adult Female: Follicular phase 12.5 - 166.0 Ovulation phase 85.8 - 498.0 Luteal phase 43.8 - 211.0 Postmenopausal <6.0 - 54.7 1st trimester 215.0 - >4300.0 Kye ECLIA methodologyPerformed By: #### REVRT3 #### [facility] [address] [place] [address] Dr. Dimple ParsonsINSULINon 57-24-4224Mhcexwx76.1 uIU/mLNormal2.6-24.9The [facility] HospitalComment on above:Performed By: #### CBC #### [facility] [address] [place] [address] Dr. Dimple ParsonsPROGESTERONEon 93-89-9966Aihlnfycaogn0.8 ng/mLNormalMercy Health Defiance HospitalComment on above:Result Comment: Follicular phase 0.1 - 0.9 Luteal phase 1.8 - 23.9 Ovulation phase 0.1 - 12.0 First trimester 11.0 - 44.3 Second trimester 25.4 - 83.3 Third trimester 58.7 - 214.0 Postmenopausal 0.0 - 0.1Performed By: #### DHEASUL #### [facility] [address] [place] [address] Dr. Dimple ParsonsSEX HORMONE-BINDING GLOBULINon 92-73-9504Wrs Horm Binding Glob, Serum40.7 nmol/PKmcbqr56.6-122.0The [facility]itrick HospitalComment on above:Performed By: #### CBC #### [facility] [address] [place] [address] Dr. Dimple ParsonsT3, TOTAL (TRIIODOTHYRONINE)on 01-22-5262B1, TOTAL89 ng/dLNormal 71-180The [facility]itrick HospitalComment on above:Performed By: #### REVRT3 #### [facility] [address] [place] [address] Dr. Dimple ParsonsTHYROID PEROXIDASE ABon [id number] Peroxidase (TPO) Ab12 IU/mLNormal0-34The [facility]itrick HospitalComment on above:Performed By: #### DHEASUL #### [facility] [address] [place] [address] Dr. Dimple ParsonsFERRITINon 61-27-4233Yjttljlp [Mass/Vol]193.0 ng/mLCritically high6.2-137.0The [facility]itrick HospitalComment on above:Performed By: #### DHEASUL #### [facility] [address] [place] [address] Dr. Dimple Esquivel T3on 72-81-1161UDXM T32.24 pg/mlLNormal2.18-3.98The [facility]itrick HospitalComment on above:Performed By: #### REVRT3 #### [facility] [address] [place] [address] Dr. Dimple Esquivel T4on 89-34-8857Grxa T4 [Mass/Vol]1.14 ng/dLNormal0.76-1.46 The [facility]itrick HospitalComment on above:Performed By: #### DHEASUL #### [facility] [address] [place] [address] Dr. Dimple ParsonsGLUCOSE BLOODon 21-36-9712Vvyvvgv [Mass/Vol]92 mg/mCFakaen12-493 The [facility]rick HospitalComment on above:Performed By: #### REVRT3 #### [facility] [address] [place] [address] Dr. Dimple ParsonsGLYCOHEMOGLOBIN A1Con [id number] RECOMMENDATIONSEE BELOWNormal The M[facility]itrick HospitalComment on above:Result Comment: ADA RECOMMENDED LIMIT 4.0 - 6.0 ADA THERAPEUTIC TARGET < 7.0 ACTION SUGGESTED > 7.0Performed By: #### A1C #### [facility] [address] [place] [address] Dr. Dimple ParsonsGlucose [Mass/Vol]100 mg/dLNormalThe Mckitrick HospitalComment on above:Performed By: #### A1C #### [facility] [address] [place] [address] Dr. Dimple ParsonsHbA1c (Bld) [Mass fraction]5.1 %Normal4.5-6.2The Mckitrick HospitalComment on above:Performed By: #### A1C #### [facility] [address] [place] [address] Dr. Dimple ParsonsT4on 31-68-9823L6 [Mass/Vol]8.60 ug/dLNormal4.80-13.90The M[facility]itrick HospitalComment on above:Performed By: #### REVRT3 #### [facility] [address] [place] [address] Dr. Dimple ParsonsTSHon 91-68-9389MKJ6.442 uIU/mLNormal0.358-3.740The [facility] HospitalCommunson healthcare [facility] on above:Performed By: #### REVRT3 #### [facility] [address] [place] [address] Dr. Dimple ParsonsUS PELVIS AND TRANSVAGon [id number] PELVIS AND TRANSVAGEXAM: US PELVIS AND TRANSVAG [...] Electronically authenticated by: KAYLA GORDON Date: 2022-05-25 13:36NoJ.W. Ruby Memorial HospitalXR KUB 1 VIEWon [id number] KUB 1 VIEWEXAMINATION: XR KUB 1 VIEW [...] Electronically authenticated by: DAVID ALDANA Date: 2022-05-21 06:53[facility] HospitalCBC AUTO DIFFon [id number] #0.0 103/ulNormal0.0-0.1[facility] HospitalComment on above:Performed By: #### CBC #### [facility] [address] [address] [address] Dimple ParsonsBasophils/100 WBC (Bld)0.3 %Normal0.2-2.0[facility] Comment on above:Performed By: #### CBC #### [facility] [address] [address] [address] Dimple Orona #0.2 103/ulNormal0.0-0.7The M[facility]itrick HospitalComment on above: Performed By: #### CBC #### [facility] [address] [address] [address] Dimple Manzanoosinophils/100 WBC (Bld)1.3 %Normal0.9-7.0[facility] Comment on above:Performed By: #### CBC #### [facility] [address] [address] [address] Dimple Manzanorythrocyte distribution width (RBC) [Ratio]13.9 %Ufglwz24.0-15.0 The [facility] Centerment on above:Performed By: #### CBC #### [facility] [address] [place] [address] Dr. Dimple ParsonsHematocrit (Bld) [Volume fraction]38.8 %Wqnzzw98.0-48.0The [facility]rick HospitalComment on above:Performed By: #### CBC #### [facility] [address] [place] [address] Dr. Dimple ParsonsHemoglobin (Bld) [Mass/Vol]12.8 g/cCJvxakq83.0-16.0The [facility]rick HospitalComment on above:Performed By: #### CBC #### [facility] [address] [place] [address] Dr. Dimple Adorno #0.15 10e3/ulCritically high0.00-0.03The [facility] Comment on above:Performed By: #### CBC #### [facility] [address] [place] [address] Dr. Dimple Adorno %1.3 %Critically high0.0-0.5The [facility] Centerment on above:Performed By: #### CBC #### [facility] [address] [place] [address] Dr. Dimple OrtizH #3.4 103/ulNormal1.2-3.8The [facility]itrick HospitalComment on above:Performed By: #### CBC #### [facility] [address] [place] [address] Dr. Dimple Alejandramphocytes/100 WBC (Bld)28.9 %Mkwuwy16.5-60.0The [facility] Centerment on above:Performed By: #### CBC #### [facility] [address] [place] [address] Dr. Dimple YepezUAL DIFF REQNONormalThe Mckitrick HospitalComment on above: Performed By: #### CBC #### [facility] [address] [address] [address] Dimple Barnes (RBC) [Entitic mass]25.9 pgCritically low26.7-34.0The M[facility]itrick HospitalComment on above:Performed By: #### CBC #### [facility] [address] [place] [address] Dr. Dimple Barnes (RBC) [Mass/Vol]33.0 g/lNSdmfkf39.9-35.2The [facility]itrick HospitalComment on above:Performed By: #### CBC #### [facility] [address] [place] [address] Dr. Dimple Barnes (RBC) [Entitic vol]78.5 fLCritically low81.0-99.0The M[facility]rick HospitalComment on above:Performed By: #### CBC #### [facility] [address] [place] [address] Dr. Dimple Urias #0.7 103/ulNormal0.3-0.8The [facility]rick HospitalComment on above:Performed By: #### CBC #### [facility] [address] [place] [address] Dr. Dimple Mayorgaocytes/100 WBC (Bld)6.2 %Normal1.7-12.0[facility] Comment on above:Performed By: #### CBC #### [facility] [address] [place] [address] Dr. Dimple Silver #7.3 103/ulCritically high1.4-6.5The [facility] Comment on above:Performed By: #### CBC #### [facility] [address] [place] [address] Dr. Dimple Leonardoutrophils/100 WBC (Bld)62.0 %Oxirma39.0-75.0The [facility]rick HospitalComment on above:Performed By: #### CBC #### [facility] [address] [place] [address] Dr. Dimple Salinaslet mean volume (Bld) [Entitic vol]9.1 fLCritically low 9.5-13.5The [facility]rick HospitalComment on above:Performed By: #### CBC #### [facility] [address] [place], [place] [address] Dr. Dimple ParsonsPLT426 103/ytPjmvzp825-622Zmx [facility]rick HospitalComment on above: Performed By: #### CBC #### [facility] [address] [address] [address] Dimple ParsonsRBC4.94 106/ulNormal4.20-5.40The [facility]rick HospitalComment on above:Performed By: #### CBC #### [facility] [address] [place], [place] [address] Dr. Dimple ParsonsWBC11.9 103/ulCritically high4.0-11.0The [facility] on above:Performed By: #### CBC #### [facility] [address] [address] [address] Dimple ParsonsCT ABD/PELVIS WO CONon [id number] ABD/PELVIS WO CONEXAMINATION: CT ABD/PELVIS WO CON, [...] outpatient ultrasound. Note: Exam was submitted to [facility] operations Incidental Findings call que, to call the above findings to the patient's primary care provider nonemergently. Electronically authenticated by: RERE CARLISLE Date: 2022-05-08 05:24[facility] HospitalPROF 14(COMP METB)on 47-44-5695Sbcdotg [Mass/Vol]4.0 g/dLNormal 3.4-5.0The [facility] Centerment on above:Performed By: #### REVRT3 #### [facility] [address] [place] [address] Dr. Dimple ParsonsAlbumin/Globulin [Mass ratio]1.1 {ratio}NormalThe [facility] on above:Performed By: #### REVRT3 #### [facility] [address] [address] [address] Dimple Richards [Catalytic activity/Vol]76 U/WXtmlph34-115Slt [facility] on above:Performed By: #### REVRT3 #### [facility] [address] [place] [address] Dr. Dimple WattsT [Catalytic activity/Vol]20 U/AHrwjfi89-52Qme [facility] HospitalComment on above:Performed By: #### REVRT3 #### [facility] [address] [place] [address] Dr. Dimple ParsonsAnion gap [Moles/Vol]14.9 mmol/LNormalMercy Health Defiance Hospital Comment on above:Performed By: #### REVRT3 #### [facility] [address] [place] [address] Dr. Dimple ParsonsAST [Catalytic activity/Vol]19 U/ERovhqs05-72Sya [facility] HospitalComment on above:Performed By: #### REVRT3 #### [facility] [address] [place] [address] Dr. Dimple ParsonsBilirubin [Mass/Vol]0.6 mg/dLNormal0.2-1.0[facility] Comment on above:Performed By: #### REVRT3 #### [facility] [address] [place] [address] Dr. Dimple ParsonsCalcium [Mass/Vol]9.0 mg/dLNormal8.5-10.1[facility] Comment on above:Performed By: #### REVRT3 #### [facility] [address] [place] [address] Dr. Dimple ParsonsChloride [Moles/Vol]103 mmol/DUsjeov10-834Jkd [facility] Comment on above:Performed By: #### REVRT3 #### [facility] [address] [place] [address] Dr. Dimple ParsonsCO2 [Moles/Vol]25.5 mmol/YTqqrnc19.0-32.0[facility] Comment on above:Performed By: #### REVRT3 #### [facility] [address] [place] [address] Dr. Dimple ParsonsCreatinine [Mass/Vol]0.75 mg/dLNormal0.55-1.02The [facility] HospitalComment on above:Performed By: #### REVRT3 #### [facility] [address] [address] [address] Dimple ManzanoGFR-AF KAZAKH>60Normal>=60The [facility] HospitalComment on above:Performed By: #### REVRT3 #### [facility] [address] [address] [address] Dimple ManzanoGFR-NON AF KAZAKH>60Normal>=60The [facility] HospitalComment on above:Performed By: #### REVRT3 #### [facility] [address] [address] [address] Dimple ParsonsGlobulin (S) [Mass/Vol]3.8 g/dLNormalThe [facility] HospitalComment on above:Performed By: #### REVRT3 #### [facility] [address] [place] [address] Dr. Dimple ParsonsGlucose [Mass/Vol]107 mg/dLCritically hkux43-941Fgd [facility] HospitalComment on above:Performed By: #### REVRT3 #### [facility] [address] [place] [address] Dr. Dimple ParsonsPotassium [Moles/Vol]3.4 mmol/LCritically low3.5-5.1The [facility] HospitalComment on above:Performed By: #### REVRT3 #### [facility] [address] [place] [address] Dr. Dimple ParsonsProtein [Mass/Vol]7.8 g/dLNormal6.4-8.2The [facility] Comment on above:Performed By: #### REVRT3 #### [facility] [address] [address] [address] Dimple ParsonsSodium [Moles/Vol]140 mmol/WXcntkh214-589Xcb [facility] Comment on above:Performed By: #### REVRT3 #### [facility] [address] [place] [address] Dr. Dimple ParsonsUrea nitrogen [Mass/Vol]7.0 mg/dLNormal7.0-18.0The [facility] HospitalComment on above:Performed By: #### REVRT3 #### [facility] [address] [address] [address] Dimple ParsonsUrea nitrogen/Creatinine [Mass ratio]9.3 mg/mgNoJ.W. Ruby Memorial HospitalComment on above:Performed By: #### REVRT3 #### [facility] [address] [address] [address] Dimple Pulido PELVIS TRANSVAGon [id number] PELVIS TRANSVAGEXAMINATION: US PELVIS TRANSVAG INDICATION: Pain. [...] Electronically authenticated by: LEATHA GALVAN Date: 2022-05-08 08:[address] [place] [address] AUTO DIFFon [id number] #0.1 103/ulNormal0.0-0.1The [facility] HospitalComment on above:Performed By: #### CBC #### [facility] [address] [place] [address] Dr. Dimple ParsonsBasophils/100 WBC (Bld)0.5 %Normal0.2-2.0The [facility] Comment on above:Performed By: #### CBC #### [facility] [address] [place] [address] Dr. Dimple Orona #0.2 103/ulNormal0.0-0.7The [facility] HospitalComment on above: Performed By: #### CBC #### [facility] [address] [place] [address] Dr. Dimple Manzanoosinophils/100 WBC (Bld)2.3 %Normal0.9-7.0The [facility] Comment on above:Performed By: #### CBC #### [facility] [address] [place] [address] Dr. Dimple Manzanorythrocyte distribution width (RBC) [Ratio]13.2 %Bwhxgf23.0-15.0 The [facility] HospitalComment on above:Performed By: #### CBC #### [facility] [address] [place] [address] Dr. Dimple ParsonsHematocrit (Bld) [Volume fraction]40.5 %Mcnpex15.0-48.0The [facility] HospitalComment on above:Performed By: #### CBC #### [facility] [address] [place] [address] Dr. Dimple ParsonsHemoglobin (Bld) [Mass/Vol]13.0 g/jWAuzoah70.0-16.0The [facility] HospitalComment on above:Performed By: #### CBC #### [facility] [address] [place] [address] Dr. Dimple Adorno #0.01 10e3/ulNormal0.00-0.03The [facility] HospitalComment on above:Performed By: #### CBC #### [facility] [address] [place] [address] Dr. Dimple Adorno %0.1 %Normal0.0-0.5The [facility] HospitalComment on above: Performed By: #### CBC #### [facility] [address] [place] [address] Dr. Dimple AlejandraMPH #2.6 103/ulNormal1.2-3.8The [facility] HospitalComment on above:Performed By: #### CBC #### [facility] [address] [place] [address] Dr. Dimple Alejandramphocytes/100 WBC (Bld)27.4 %Hzqfeq25.5-60.0The [facility] HospitalComment on above:Performed By: #### CBC #### [facility] [address] [place] [address] Dr. Dimple YepezUAL DIFF REQNONormalThe [facility] HospitalComment on above: Performed By: #### CBC #### [facility] [address] [place] [address] Dr. Dimple Barnes (RBC) [Entitic mass]26.4 pgCritically low26.7-34.0The [facility] HospitalComment on above:Performed By: #### CBC #### [facility] [address] [place] [address] Dr. Dimple Barnes (RBC) [Mass/Vol]32.1 g/kQDazaqf24.9-35.2The [facility] HospitalComment on above:Performed By: #### CBC #### [facility] [address] [place] [address] Dr. Dimple Barnes (RBC) [Entitic vol]82.2 rUHbyhox24.0-99.0The [facility] HospitalComment on above:Performed By: #### CBC #### [facility] [address] [place] [address] Dr. Dimple Urias #0.6 103/ulNormal0.3-0.8The [facility] HospitalComment on above:Performed By: #### CBC #### [facility] [address] [place] [address] Dr. Dimple Mayorgaocytes/100 WBC (Bld)6.2 %Normal1.7-12.0The [facility] Comment on above:Performed By: #### CBC #### [facility] [address] [place] [address] Dr. Dimple Silver #6.1 103/ulNormal1.4-6.5The [facility] HospitalComment on above:Performed By: #### CBC #### [facility] [address] [place] [address] Dr. Dimple Leonardoutrophils/100 WBC (Bld)63.5 %Iqvxuz70.0-75.0The [facility] HospitalComment on above:Performed By: #### CBC #### [facility] [address] [address] [address] Dimple Salinaslet mean volume (Bld) [Entitic vol]9.0 fLCritically low 9.5-13.5The [facility] HospitalComment on above:Performed By: #### CBC #### [facility] [address] [address] [address] Dimple ParsonsPLT346 103/leKhizyv854-667Rrc [facility] HospitalComment on above: Performed By: #### CBC #### [facility] [address] [address] [address] Dimple ParsonsRBC4.93 106/ulNormal4.20-5.40The [facility] HospitalComment on above:Performed By: #### CBC #### [facility] [address] [place] [address] Dr. Dimple ParsonsWBC9.5 103/ulNormal4.0-11.0The [facility] HospitalComment on above: Performed By: #### CBC #### [facility] [address] [place] [address] Dr. Dimple Esquivel T4on 37-57-7911Phqr T4 [Mass/Vol]1.39 ng/dLNormal0.76-1.46 The [facility] HospitalComment on above:Performed By: #### CBC #### [facility] [address] [address] [address] Dimple ParsonsPROF CHEM 8 (BAS METB)on 18-43-0325Fyuic gap [Moles/Vol]10.4 mmol/LNormalThe [facility] HospitalComment on above:Performed By: #### DHEASUL #### [facility] [address] [place] [address] Dr. Dimple ParsonsCalcium [Mass/Vol]9.0 mg/dLNormal8.5-10.1The [facility] Comment on above:Performed By: #### DHEASUL #### [facility] [address] [place] [address] Dr. Dimple ParsonsChloride [Moles/Vol]101 mmol/JXwrlyk75-762DieMercy Health Defiance Hospital Comment on above:Performed By: #### DHEASUL #### [facility] [address] [place] [address] Dr. Dimple ParsonsCO2 [Moles/Vol]29.3 mmol/TEjchru08.0-32.0The [facility] Comment on above:Performed By: #### DHEASUL #### [facility] [address] [place] [address] Dr. Dimple ParsonsCreatinine [Mass/Vol]0.79 mg/dLNormal0.55-1.02The [facility] HospitalComment on above:Performed By: #### DHEASUL #### [facility] [address] [place] [address] Dr. Dimple ManzanoGFR-AF KAZAKH>60Normal>=60The [facility] HospitalComment on above:Performed By: #### DHEASUL #### [facility] [address] [place] [address] Dr. Dimple ManzanoGFR-NON AF KAZAKH>60Normal>=60The [facility] HospitalComment on above:Performed By: #### DHEASUL #### [facility] [address] [place] [address] Dr. Dimple ParsonsGlucose [Mass/Vol]92 mg/kZTzyvdp55-501HzcMercy Health Defiance Hospital Comment on above:Performed By: #### DHEASUL #### [facility] [address] [place] [address] Dr. Dimple ParsonsPotassium [Moles/Vol]3.7 mmol/LNormal3.5-5.1The [facility] Comment on above:Performed By: #### DHEASUL #### [facility] [address] [place] [address] Dr. Dimple ParsonsSodium [Moles/Vol]137 mmol/BEnyjuz401-762Nyl [facility] Comment on above:Performed By: #### DHEASUL #### [facility] [address] [place] [address] Dr. Dimple ParsonsUrea nitrogen [Mass/Vol]11.0 mg/dLNormal7.0-18.0The [facility] HospitalComment on above:Performed By: #### DHEASUL #### [facility] [address] [place] [address] Dr. Dimple Lam nitrogen/Creatinine [Mass ratio]13.9 mg/mgNoJ.W. Ruby Memorial HospitalComment on above:Performed By: #### DHEASUL #### [facility] [address] [place] [address] Dr. Dimple Caldwell 41-45-5503PDB Coag (PPP) [Relative time]1.04 {INR} NormalThe [facility]rick HospitalComment on above:Performed By: #### PTT, PT #### [facility] [address] [place] [address] Dr. Dimple Raphael GUIDELINESSEE BELOWSelect Medical TriHealth Rehabilitation HospitalComment on above:Result Comment: DESIRED INR: 2.0 - 3.0 CONDITIONS NOT LISTED BELOW 2.5 - 3.5 FOR PROSTHETIC HEART VALVE REPLACEMENT 2.5 - 3.5 RECURRENT THROMBOSIS Performed By: #### PTT, PT #### [facility] [address] [place] [address] Dr. Dimple Power Coag (PPP) [Time]11.2 sNormal9.0-11.6The [facility] Comment on above:Performed By: #### PTT, PT #### [facility] [address] [place] [address] Dr. Dimple Zurita 58-77-1929vCQH Coag (Bld) [Time]35.1 eKmqkvu01.3-36.2The [facility] HospitalComment on above:Performed By: #### PTT, PT #### [facility] [address] [place] [address] Dr. Dimple Moreau 79-04-9535PVM0.528 uIU/mLNormal0.358-3.740The [facility] HospitalComment on above:Performed By: #### TSH #### [facility] [address] [place] [address] Dr. Dimple Collins ACOG PANEL 2: 30 to 65on 12-26-2021..NormalThe [facility] on above:Result Comment: Performed at: WBPerformed By: #### CBC #### [facility] [address] [place] [address] Dr. Dimple Rosen Gdln ACOG Xrkspta48-12VckwphBrqJ.W. Ruby Memorial HospitalCommunson healthcare [facility] on above:Performed By: #### CBC #### [facility] [address] [place] [address] Dr. Dimple ParsonsDIAGNOSIS:CommentOhio Valley Surgical Hospital on above: Result Comment: NEGATIVE FOR INTRAEPITHELIAL LESION OR MALIGNANCY. Performed at: WBPerformed By: #### CBC #### [facility] [address] [place] [address] Dr. Dimple ParsonsHPV AptimaNegativeNormalNegativeRiverview Health Institute on above:Result Comment: This nucleic acid amplification test detects fourteen high-risk HPV types (16,18,31,33,35,39,45,51,52,56,58,59,66,68) without differentiation. Performed at: =GPerformed By: #### CBC #### [facility] [address] [place] [address] Dr. Dimple ParsonsMethodology:CommentOhio Valley Surgical Hospital on above: Result Comment: This liquid based ThinPrep(R) pap test was screened with the use of an image guided system. Performed at: WBPerformed By: #### CBC #### [facility] [address] [place] [address] Dr. Dimple ParsonsNote:CommentOhio Valley Surgical Hospital on above:Result Comment: The Pap smear is a screening test designed to aid in the detection of premalignant and malignant conditions of the uterine cervix. It is not a diagnostic procedure and should not be used as the sole means of detecting cervical cancer. Both false-positive and false-negative reports do occur. . Performed at: WBPerformed By: #### CBC #### [facility] [address] [place] [address] Dr. Dimple ParsonsPerformed by:CommentNormalThe [facility]ira HospitalComment on above: Result Comment: Essie Hercules, Bus Info Consultant (ASCP) Performed at: WBPerformed By: #### CBC #### [facility] [address] [id number] Dimple Chavez adequacy:CommentSelect Medical TriHealth Rehabilitation HospitalComment on above:Result Comment: Satisfactory for evaluation. No endocervical component is identified. Performed at: WBPerformed By: #### CBC #### [facility] [address] [place], [place] [address] Dr. Dimple Nash Quick Testingon 59-02-2596BltstiJvtgufbmXtwzv Air2Web Other Vital Signs Date TimeVital SignValuePerforming FquxknjhvRuockmpx94-75-5027 10:04-0400 Diastolic blood zolioucw64 mm[Hg]Nato Hawkins MD Work Phone: [facility] [place]09-09-2025 10:04-0400Systolic blood ayryllwn577 mm[Hg]Nato Hawkins MD Work Phone: [facility] [place]07-29-2025 13:09-0400Body mass index (BMI) [Ratio]30.92 kg/t3Pxlgc Asuncion DO Work Phone: [facility] [id number] 13:09-0400Body thuqzn24.75 kgCorey Asuncion DO Work Phone: [facility] [phone] 13:09-0400Diastolic blood oejuscns15 mm[Hg]Brent Asuncion DO Work Phone: [facility] HospitalAmkbycrkvw51-62-9647 13:09-0400Systolic blood oeosltgu556 mm[Hg]Brent Asuncion DO Work Phone: [facility] HospitalKtqxggksiw54-32-4729 13:46-0400Body iwhepl319.26 cmSaniya Mays APRN Work Phone: [facility]06-25-2025 13:46-0400 Body mass index (BMI) [Ratio]31.3 kg/s0FlsolnpcSaniya Mays GAS APPLIANCE REPAIRER Work Phone: [facility]06-25-2025 13:46-0400 Body pssnmyiqwnf43.8 [degF]Saniya Mays GAS APPLIANCE REPAIRER Work Phone: [facility]06-25-2025 13:46-0400 Body lwnheq00.16 kgSaniya Mays GAS APPLIANCE REPAIRER Work Phone: [facility]06-25-2025 13:46-0400 Diastolic blood mm[Hg]Saniya Mays GAS APPLIANCE REPAIRER Work Phone: [facility]06-25-2025 13:46-0400 Systolic blood tslrwqav807 mm[Hg]Saniya Mays GAS APPLIANCE REPAIRER Work Phone: [facility]06-03-2025 13:38-0400 Body mass index (BMI) [Ratio]30.68 kg/m2Yesica Tolbertey PA Work Phone: [facility] HospitalNofwbxtgty54-86-5058 13:38-0400Body htlnea72.98 kgAmy Xu PA Work Phone: [facility] HospitalXeoitqkcfm91-75-8760 13:38-0400Diastolic blood cpwqegmh86 mm[Hg]Yesica Tolbertey PA Work Phone: [facility] HospitalZchfgaspgg12-38-9795 13:38-0400Systolic blood miieckyu311 mm[Hg]Yesica Tetonia PA Work Phone: [facility] HospitalHmuwbnqbem29-83-9776 09:36-0400Body mass index (BMI) [Ratio]30.71 kg/b8Dkfqf Asuncion DO Work Phone: [facility] HospitalNfvndprqez04-77-8270 09:36-0400Body oejxbv57.07 kgCorey Asuncion DO Work Phone: [facility] HospitalDpzfqcuilr81-15-3426 09:36-0400Diastolic blood awtemxgl09 mm[Hg]Brent Asuncion DO Work Phone: [facility] HospitalCeusnboweh77-65-6200 09:36-0400Systolic blood nhhokymb810 mm[Hg]Brent Roland DO Work Phone: [facility] HospitalVhpxmqtzpf02-07-7861 10:02-0400Body mass index (BMI) [Ratio]31.13 kg/n7Frket Asuncion DO Work Phone: [facility] HospitalDdjpkiougg33-55-9569 10:02-0400Body acwytj99.62 kgAcmc Healthcare System Glenbeighmacrina Anguloo DO Work Phone: [facility] HospitalGnsswfrrpp57-81-3939 10:02-0400Diastolic blood kbxidsxt59 mm[Hg]Brentmacrina Roland DO Work Phone: [facility] HospitalRvltrroxrt44-35-6794 10:02-0400Systolic blood iwfaqhxb346 mm[Hg]Brentmacrina AnguloBridgeWave Communications Work Phone: [facility] HospitalAdhnxyeejv12-75-8556 10:18-0500Body ldetgc184.26 [facility]03[facility]2025 10:18-0500Body mass index (BMI) [Ratio]29.9 kg/i0GoqqkngnkMercer County Community Hospital03-05-2025 10:18-0500Body mfsmpfthydi52.2 [degF][facility]03-05-2025 10:18-0500Body phcpem19.07 kgMercer [facility] Hospital03-05-2025 10:18-0500Diastolic blood rbvopprp22 mm[Hg][facility]03-05-2025 10:18-0500 Heart xuec178 /minMercer County Community Hospital03-05-2025 10:18-8257GxZ2% (BldA) [Mass fraction]98 %[facility]03-05-2025 10:18-0500 Systolic blood muvvkjpc298 mm[Hg][facility]01-02-2025 11:31-0500Body dygzvs495.26 cmMercer County Community Hospital01-02-2025 11:31-0500Body mass index (BMI) [Ratio]31.3 kg/r6ZhzmbvoqiMercer County Community Hospital01-02-2025 11:31-0500Body lqqhxhqnquk48.5 [degF][facility]01-02-2025 11:31-0500Body hwledw31.27 kgMer[facility] 03-15-2024 11:31-0500Diastolic blood wafgzicn09 mm[Hg][facility]01-02-2025 11:31-0500Heart rate92 /minMercer County Community Hospital 03-15-2024 11:31-6356LhT8% (BldA) [Mass fraction]97 %[facility]01-02-2025 11:31-0500Systolic blood xjzymwnm447 mm[Hg][facility]12-04-2024 13:04-0500Body .26 cmMer[facility] Community Hospital12-04-2024 13:04-0500Body mass index (BMI) [Ratio]31.8 kg/m2 [facility]12-04-2024 13:04-0500Body kqefolfyovw40.3 [degF][facility]12-04-2024 13:04-0500Body jujnwu56.63 kg [facility]12-04-2024 13:04-0500Diastolic blood dghucfuj26 mm[Hg][facility]12-04-2024 13:04-0500Heart cdtj096 /min [facility]12-04-2024 13:04-6974FmS3% (BldA) [Mass fraction]98 %[facility]12-04-2024 13:04-0500Systolic blood xmgmluyv423 mm[Hg][facility]09-20-2024 10:38-0400 Body .26 cmMer[facility] County Community Hospital09-20-2024 10:38-0400Body mass index (BMI) [Ratio]31.3 kg/m0OkkfookwxMercer County Community Hospital09-20-2024 10:38-0400Body .16 kgMercer County Community Hospital09-20-2024 10:38-0400Diastolic blood onfcjsfc86 mm[Hg][facility] 12-02-2023 10:38-0400Heart rate81 /minMercer County Community Hospital 12-02-2023 10:38-0400Systolic blood ptegzkgg657 mm[Hg][facility]07-29-2024 11:23-0400Body .26 cmMercer County Community Hospital07-29-2024 11:23-0400Body mass index (BMI) [Ratio]31.1 kg/m6BspcnbiuiMercer County Community Hospital07-29-2024 11:23-0400Body xcaavh23.84 kgMercer County Community Hospital07-29-2024 11:23-0400Diastolic blood zeehtjhk91 mm[Hg] [facility]07-29-2024 11:23-0400Heart rate98 /[facility] [place]07-29-2024 11:23-1876TvC2% (BldA) [Mass fraction]98 % [facility]07-29-2024 11:23-0400Systolic blood wuscuesb416 mm[Hg][facility]07-22-2024 14:50-0400Body ryfasd700.26 cm [facility]07-22-2024 14:50-0400Body mass index (BMI) [Ratio]31.3 kg/m4RihexgefqMercer County Community Hospital07-22-2024 14:50-0400Body .16 [facility]07-22-2024 14:50-0400Diastolic blood ntnauzyy18 mm[Hg][facility]07-22-2024 14:50-0400 Heart rate85 /[facility]07-22-2024 14:50-0400Systolic blood kjmtltpa030 mm[Hg][facility]06-26-2024 13:03-0400 Body ehnndw590.26 cmMercer County Community Hospital06-26-2024 13:03-0400Body mass index (BMI) [Ratio]31.1 kg/f0WqbvihrmcMercer County Community Hospital06-26-2024 13:03-0400Body bedtyd63.7 kgMercer County Community Hospital06-26-2024 13:03-0400Diastolic blood ozecleyd98 mm[Hg][facility] 09-07-2023 13:03-0400Heart rate61 /[facility] 09-07-2023 13:03-5900AwA7% (BldA) [Mass fraction]97 %[facility]06-26-2024 13:03-0400Systolic blood mm[Hg][facility]04-05-2024 14:03-0400Body mizjqh820.26 cmMercer County Community Hospital04-05-2024 14:03-0400Body mass index (BMI) [Ratio]31.6 kg/m2 [facility]04-05-2024 14:03-0400Body mxihbe53.12 kg [facility]04-05-2024 14:03-0400Diastolic blood ubdwlclm59 mm[Hg][facility]04-05-2024 14:03-0400Heart nsoo862 /min [facility]04-05-2024 14:03-0400Systolic blood skikyhzp380 mm[Hg][facility]01-22-2024 14:15-0500Body ehypzf492.26 cmSurya Hodges Other [facility]01-22-2024 14:15-0500 Body mass index (BMI) [Ratio]30.42 kg/g3BkuhhlSurya Hodges Other [employer] Other 01-22-2024 14:15-0500Body tawenz80.44 kgSurya Hodges Other [facility]01-22-2024 14:15-0500 Diastolic blood tlahxbnq05 mm[Hg]Surya Hodges Other [facility]01-22-2024 14:15-0500 Systolic blood rtkeuemu058 mm[Hg]Surya Hodges Other [facility]10-06-2023 08:30-0400 Body yzpuxr289.26 cmSurya Hodges Other [employer] Other [id number] 08:30-0400Body mass index (BMI) [Ratio]29.5 kg/z8XppvdzSurya Hodges Other [facility] [employer] Other 10-06-2023 08:30-0400Body .63 kgSurya Hodges Other [place] [employer] Other 10-06-2023 08:30-0400Diastolic blood iyrmotyh59 mm[Hg] Surya Hodges Other [place] [employer] Other 10-06-2023 08:30-0400Systolic blood egukzweh334 mm[Hg] Surya Hodges Other [place] [employer] Other 09-20-2023 12:00-0400Body xzsyrwsmono18.6 [degF]MD Surya Hodges Work Phone: [phone]09-20-2023 12:00-0400 Diastolic blood kvmxbwad87 mm[Hg]MD Surya Hodges Work Phone: 1(452)362-88[facility]09-20-2023 12:00-0400 Heart rate89 /minMD Surya Hodges Work Phone: 1(050)060-82[facility]09-20-2023 12:00-0400 Respiratory rate20 /minMD Surya Hodges Work Phone: [phone])877-73[facility]09-20-2023 12:00-0400 SaO2% (BldA) [Mass fraction]99 %MD Surya Hodges Work Phone: [phone])806-71[facility]09-20-2023 12:00-0400 Systolic blood udrlufme090 mm[Hg]MD Surya Hodges Work Phone: 1(025)918-17[facility]09-20-2023 05:51-0400 Body fjfbga55.4 kgMD Surya Hodges Work Phone: 1(081)087-58[facility]09-19-2023 16:30-0400 Body .26 cmMD Surya Hodges Work Phone: 1(655)296-42[facility]09-18-2023 11:15-0400 Body bxhwol801.26 cmSurya Tracie Other [employer] Other 09-18-2023 11:15-0400Body mass index (BMI) [Ratio] 28.79 kg/k1Mhugpn Braun Other [employer] Other 09-18-2023 11:15-0400Body qphuerswolc26.1 [degF]Surya Hodges Other [employer] Other 09-18-2023 11:15-0400Body wrfsis80.45 kgSurya Tracie Other [employer] Other 09-18-2023 11:15-0400Diastolic blood wdzvdojo02 mm[Hg] Surya Hodges Other [employer] Other 09-18-2023 11:15-2401JvY4% (BldA) [Mass fraction]98 % Surya Hodges Other [employer] Other 09-18-2023 11:15-0400Systolic blood nfksfkqi441 mm[Hg] Surya Hodges Other [employer] Other 09-07-2023 08:30-0400Body .26 cmSurya Hodges Other [employer] Other 09-07-2023 08:30-0400Body mass index (BMI) [Ratio] 28.59 kg/q7BobyhjSurya Hodges Other [employer] Other 09-07-2023 08:30-0400Body hedlaz70.82 kgSurya Hodges Other [employer] Other 09-07-2023 08:30-0400Diastolic blood juyxaujo40 mm[Hg] Surya Hodges Other [employer] Other 09-07-2023 08:30-0400Systolic blood ymtbgcgu531 mm[Hg] Surya Hodges Other [employer] Other 08-25-2023 10:00-0400Body .26 cmYarimike Hodges Other [employer] Other 08-25-2023 10:00-0400Body mass index (BMI) [Ratio] 29.68 kg/f2WosrkbSurya Hodges Other [employer] Other 08-25-2023 10:00-0400Body fvbrim21.17 kgSurya Hodges Other [employer] Other 08-25-2023 10:00-0400Diastolic blood amitczlc41 mm[Hg] Surya Hodges Other [employer] Other 08-25-2023 10:00-0400Systolic blood dclvickt986 mm[Hg] Surya Hodges Other [employer] Other 08-07-2023 08:30-0400Body aztqej449.26 cmSurya Hodges Other [employer] Other 08-07-2023 08:30-0400Body mass index (BMI) [Ratio] 28.94 kg/a5RbyhakSurya Hodges Other [employer] Other 08-07-2023 08:30-0400Body iwmzcm82.91 kgSurya Hodges Other [employer] Other 08-07-2023 08:30-0400Diastolic blood ohbdgcjm58 mm[Hg] Surya Hodges Other [employer] Other 08-07-2023 08:30-0400Systolic blood xpuvbehz480 mm[Hg] Surya Hodges Other [employer] Other 06-29-2023 10:15-0400Body uyusth277.26 cmSurya Hodges Other [employer] Other 06-29-2023 10:15-0400Body mass index (BMI) [Ratio] 29.12 kg/b9XfcqxcSurya Hodges Other [employer] Other 06-29-2023 10:15-0400Body .45 kgSurya Hodges Other [employer] Other 06-29-2023 10:15-0400Diastolic blood yboqdful03 mm[Hg] Surya Hodges Other [employer] Other 06-29-2023 10:15-0400Respiratory rate12 /minSurya Hodges Other [employer] Other 06-29-2023 10:15-0400Systolic blood ptrcqahn405 mm[Hg] Surya Hodges Other [employer] Other 03-10-2023 10:01-0500Blood Pressure LocationPatrick LUCY [facility]03-10-2023 10:01-0500Diastolic blood mm[Hg]Kamaljit AYALA [facility]03-10-2023 10:01-0500Heart rate85 /minKamaljit AYALA [facility]03-10-2023 10:01-0500Systolic blood luynrakv346 mm[Hg]Kamaljit AYALA [facility]11-02-2022 08:36-0400Blood Pressure LocationJENNIFER MANDEEP [facility]11-02-2022 08:36-0400Diastolic blood sjmjhqui68 mm[Hg]SANIYA MANDEEP [facility]11-02-2022 08:36-0400Heart rate91 /minJENNIFER MANDEEP [facility]11-02-2022 08:36-0400Respiratory rate16 /minJENNIFER MANDEEP [facility]11-02-2022 08:36-0400Systolic blood ltsailan725 mm[Hg]SANIYA MANDEEP [facility]01-26-2022 15:30-0500Body xinpki590.26 Marika Quezada Other [employer] Other 01-26-2022 15:30-0500Body mass index (BMI) [Ratio] 29.97 kg/t6KsmzjgTreasure Quezada Other [employer] Other 01-26-2022 15:30-0500Body kozaflbwjpp28.6 [degF]Treasure Quezada Other [employer] Other 01-26-2022 15:30-0500Body wefboj15.08 kgTreasure Quezada Other [facility] [employer] Other 01-26-2022 15:30-0500Respiratory rate18 /minTreasure Quezada Other [facility] [employer] Other 01-26-2022 15:30-3556DhW2% (BldA) [Mass fraction]98 % Treasure Quezada Other [facility] [employer] Other Encounters Encounter DateEncounter TypeCare ProviderFacilityStart: 61-07-9855vhrgjiiwteozzie AYALAFacility:[place]Start: 01-07-2025 End: 88-12-4347udqkrwqywmXTDFU DEWITT-FOYFacility:[facility] Start: 40-28-6802Qkvvtfpvb for other preprocedural examinationJENNIFER ROHRBACHERCMercy Health Fairfield HospitalStart: 12-31-2024 End: 52-78-6276wuyublbncpBLTDWWFT A ROHRBACHERFacility:[facility] Start: 59-30-9198huspodmgizRfqdfkt R WATERSFacility:[place]Start: 12-26-2024 Non-patient / Non-visitCorey [facility] Work Phone: Start: 12-26-2024 End: 90-15-3193kbykijmfgfHwaiwtxd Rohrbacher GAS APPLIANCE REPAIRER Work Phone: [facility] Work Phone: Start: 12-26-2024 End: 27-58-4970Gtqnhxal ReferredNato Hawkins MD-LAB Path [facility]ospStart: 12-13-2024 End: 24-47-6465zhdsdjcryeVekejbu R WATERSFacility:CD:[id number]: 12-10-2024 ambulatoryPaanuj AYALAFacility:CD:[id number]: 11-21-2024 End: 58-44-0792xzjgtmhfazNudjkPriyanka Hawkins MD Work Phone: UrologyStart: 11-20-2024 End: 05-36-0785Ulhjeaq encounter procedureNato Hawkins MD Work Phone: UrologyComment on above:Flank pain (Primary Dx); Ureteral stricture; H/O: hysterectomyStart: 11-20-2024 End: 19-19-9684iddhoweothZZSTRF E BRAUNFacility:[facility]art: 66-32-8718myrnoxdpkxNusixww R WATERSFacility:CD:[id number]: 11-15-2024 End: 18-73-2396mspcmcqjldGinhehj R WATERSFacility:CD:[id number]: 11-08-2024 Non-patient / Non-visitKamaljit Ayala MD-[facility] Work Phone: Start: 10-29-2024 End: 63-06-9596Itzmbmo encounter Kia Ayala MD-[facility] Work Phone: Start: 10-29-2024 End: 14-61-6755byirxxvlvpKyiimxsp Rohrbacher GAS APPLIANCE REPAIRER Work Phone: [facility] Work Phone: Start: 10-09-2024 End: 35-80-9110Kpbmyn flowsheetCorey Asuncion DO Work Phone: [facility] OBGYNStart: 10-09-2024 End: 93-63-2758Wfixoo flowsheetCorey Asuncion DO Work Phone: [facility] OBGYNStart: 10-09-2024 End: 47-82-4860Ctmqnqdqu Result EncounterCorey Asuncion DO Work Phone: NOV[facility] External Department UnsolicitedStart: 10-09-2024 End: 53-46-6806Wbjewin encounter procedureCorey Asuncion DO Work Phone: noms HealthcareStart: 10-09-2024 End: 32-05-8581Myxtxrnc preventive med est patient 18-39 yrsCorey Asuncion DO Work Phone: [facility] OBGYNComment on above:Well woman exam with routine gynecological exam; Insulin resistance; Encounter for weight loss counselingStart: 04-80-1610Gkm-patient / Non-visit Brent Roland-[facility] Work Phone: Start: 10-09-2024 End: 58-00-2898jgcbdlkqugSTXTI FAZIONot AvailableStart: 10-02-2024 End: 21-74-4313uoftmottfvDmhplym R WATERSFacility:[place]Start: 10-02-2024 End: 11-71-3207Myxxiti encounter procedureKamaljit AYALA [facility] Start: 09-05-2024 End: 82-49-8909trnyklkdpcYriswkmn Rohrbacher APRN Work Phone: [facility] Work Phone: Start: 09-05-2024 End: 59-27-2165Zjvtvub encounter procedureSaniya Mays APRN [facility] Work Phone: Start: 05-40-7004Wlx-patient / Non-visitKamaljit Ayala MD-[facility] Work Phone: Start: 08-14-2024 End: 25-68-1329Dpyegm Ashley OSWALD Work Phone: [facility] BCP OBStart: 08-14-2024 End: 42-96-9261Iraytk Ashley OSWALD Work Phone: [facility] OBStart: 08-14-2024 End: 18-72-0225Souwju follow up visit related to original pxAmy Tetonia PA Work Phone: [facility] OBComment on above:Acute postoperative pain; Postoperative follow-up; Other insomniaStart: 08-14-2024 End: 62-76-1797hopicruamlXCR XUBabatunde AvailableStart: 61-24-8013Acp-patient / Non-visitCorey [employer] Work Phone: Start: 08-02-2024 End: 24-30-1469qlbcoczxojTvqmpic R WATERSFacility:CD:[id number]: 07-23-2024 End: 98-42-2791Blnaor flowsheetCorey Asuncion [employer] Work Phone: [facility] OBStart: 07-23-2024 End: 95-70-5027Mlohpe flowsheetCorey Asuncion DO Work Phone: [facility] OBStart: 07-23-2024 End: 51-82-0426Emjmokyiv Result EncounterCorey Asuncion DO Work Phone: [facility] External Department UnsolicitedStart: 07-23-2024 Non-patient / Non-visitCorey [employer] Work Phone: Start: 07-23-2024 End: 24-10-5984zensbwvshwFVPZS FAZIONot AvailableStart: 07-23-2024 End: 37-63-6653Hesfpf outpatient visit 15 minutesCorey Asuncion DO Work Phone: [facility] OBComment on above:Pre-op evaluation; Pelvic pain in female; Pain of ovary; H/O: hysterectomyStart: 07-23-2024 End: 70-59-3406Yxdtrzvdqolmo examination doneCorey Asuncion DO Work Phone: [facility] HealthcareStart: 07-10-2024 End: 26-19-6020Nzajww flowsheetCorey Asuncion DO Work Phone: [facility] BCP OBStart: 07-10-2024 End: 58-50-2665Pwrgxt flowsheetCorey Asuncion DO Work Phone: [facility] BCP OBStart: 07-10-2024 End: 19-93-6544Vifrmzgu Result EncounterCorey Asuncion DO Work Phone: [facility] External Department UnsolicitedStart: 07-10-2024 End: 39-87-3925Sgdmim outpatient visit 15 minutesCorey Asuncion DO Work Phone: [facility] OBComment on above:Pelvic painStart: 07-10-2024 End: 84-07-3014eahdqhsxbvHNPHD FAZIONot AvailableStart: 07-03-2024 End: 60-94-2961Zwjavhyrh Result EncounterCorey Asuncion DO Work Phone: [facility] External Department UnsolicitedStart: 07-03-2024 End: 83-95-1814Scxmalxvg Result EncounterCorey Asuncion DO Work Phone: noMS External Department UnsolicitedStart: 05-16-2024 End: 58-04-6299ziartsqzkoBdbnikkkiMartins Ferry Hospital Work Phone: Start: 05-16-2024 End: 94-12-7975Rtwjzto encounter procedurePending Sale To [facility] Work Phone: Start: 03-15-2024 End: 23-16-9198wdpqnhjiazCegkhhoksMartins Ferry Hospital Work Phone: Start: 03-15-2024 End: 69-64-9896Yzglojz encounter procedureFirriverside shore memorial hospital Physician GroupSt. [facility] Work Phone: Start: 02-15-2024 End: 43-85-7553Pnykdnl encounter procedureFirriverside shore memorial hospital Physician GroupSt. [facility]'s [facility] Work Phone: Start: 12-02-2023 End: 05-54-6421mnayvxriwpLartawkvvMartins Ferry Hospital Work Phone: Start: 12-02-2023 End: 12-44-3209Pqpphkm encounter procedureFirriverside shore memorial hospital [facility] Work Phone: Start: 10-10-2023 End: 92-60-7171Egiphkh encounter procedureFirkathleens Physician Group-[facility] Work Phone: Start: 31-75-8155Mtbrnsn encounter statusMemorial Health Systemtart: 10-03-2023 End: 27-85-8851bposivchiuHfruembnjMartins Ferry Hospital Work Phone: Start: 10-03-2023 End: 49-31-1168Xsrtodlnp for general adult medical examination without abnormal findingsMemorial Health Systemtart: 10-03-2023 End: 99-96-3638Urirvao encounter procedurePending Sale To [facility] Work Phone: Start: 09-07-2023 End: 71-23-2078sxdoakdixrLwfwragqbMartins Ferry Hospital Work Phone: Start: 09-07-2023 End: 82-22-8344Xhvekhq encounter procedurePending Sale To [facility] Work Phone: Start: 97-32-2402Cdt-patient / Non-visitFirriverside shore memorial hospital Physician Group-[facility] De Work Phone: Start: 06-17-2023 End: 56-65-9616ehotlfjfjjAaljwioziMartins Ferry Hospital Work Phone: Start: 06-17-2023 End: 71-94-4221Abhgdwu encounter procedureFirriverside shore memorial hospital [facility]ician [facility] Work Phone: Start: 05-04-2023 End: 98-35-1882zjmupwuxisHfdzeljyrMartins Ferry Hospital Work Phone: Start: 05-04-2023 End: 57-83-5778Uabsjrr encounter procedurePending Sale To [facility] Work Phone: Start: 85-08-1175Ufq-patient / Non-visitFirkathleens Physician Group-[facility] Professional [employer] Work Phone: Start: 04-21-2023 End: 26-93-4053Tpqkdy digital e/m svc est pt <7 d 11-20 minutesYesica OSWALD Work Phone: [facility] OBComment on above:Insulin resistance; Metabolic syndrome; Hormone imbalanceStart: 04-04-2023 End: 70-56-2066dvunjltmwbPepchm Braun Other [employer] Other Start: 91-59-2150Kjgpkv outpatient visit 15 minutes [facility] ClinicStart: 04-04-2023 End: 65-37-3986Uunncwl encounter procedureKaren Physician Group-Start: 03-11-2023 End: 42-02-7173ozwcepnqkfEguxgl Braun Other [employer] Other Start: 24-92-3362Fnwuqjtnq encounterMarmike Ruiz [facility] ClinicStart: 79-11-7216Cwzgrml encounter procedureKaren Physician Group-Start: 01-12-2023 End: 33-07-5909drhtzhqedvEvwxuh Braun Other [employer] Other Start: 95-08-7447Ithsxbinq encounterMarmike Ruiz Ramos [facility] ClinicStart: 12-17-2022 End: 69-29-7417xvowecmncgNcnsjq Braun Other [employer] Other Start: 97-47-6860Opgajb outpatient visit 15 minutes Sury[facility] ClinicStart: 11-30-2022 End: 11-88-7268Kvukpgwqal and management of inpatientMD Surya Hodges Work Phone: [facility] Work Phone: Start: 11-30-2022 End: 46-02-3645hglsnqdlchw encounterMD Surya Hodges Work Phone: [facility] Work Phone: Start: 11-30-2022 End: 25-02-5921zdssqksrqyImpybz Braun Other [employer] Other Start: 21-81-4577Aiuwpleyf encounterMarcililly [facility] ClinicStart: 11-29-2022 End: 96-11-6136nllhsypqxoEnquif Hodges Other [facility] [employer] Other Start: 91-17-9882Wwleod outpatient visit 15 minutes Surya HodgesJACKYRafat [facility] ClinicStart: 65-70-7980Sdhgpssio encounterMarcililly [facility] ClinicStart: 11-18-2022 End: 50-49-4637beccyompfxCumnaf Tracie Other [employer] [employer] Other Start: 69-75-0417Hjibqv outpatient visit 10 minutes [facility] ClinicStart: 11-05-2022 End: 37-71-2985sttrjiytbsAkzpqo Tracie Other [facility] [employer] Other Start: 18-11-1357Ddaxdc outpatient visit 10 minutes [facility]a [facility] ClinicStart: 11-04-2022 End: 18-06-7689qxfankuswxCkppft Tracie Other [employer] Other Start: 54-91-7288Sgxnotvim encounterMarcililly [facility] ClinicStart: 10-18-2022 End: 49-33-3532qkddbhiymbOevyae Tracie Other [employer] Other Start: 71-27-4629Nrpghk outpatient visit 10 minutes [facility] ClinicStart: 09-17-2022 End: 79-58-8984frfqjsyudqDezohj Tracie Other [employer] Other Start: 83-65-8479Rkgdtxxdo encounterMarmike HodgesAultman Hospitaltart: 09-09-2022 End: 53-83-9302xiifibmtvqKdmtfx Hodges Other noIggli Other Start: 95-66-9491Nsklwx outpatient visit 15 minutes [facility] TracieAultman Hospitaltart: 63-00-4287Zjbssvxof for other preprocedural examinationDR BRENT ASUNCION .[facility] End: 72-05-5804xczasxdhmoDD BRENT ASUNCION .Facility:W5Lirtz: 06-14-2022 End: 88-41-4245ntwznprniaOR BRENT ASUNCION .Facility:H2Sgceq: 06-14-2022 End: 71-20-1085Mfkwjfoaj for other preprocedural examinationDR BRENT ASUCNION . Facility:G9Obain: 06-04-2022 End: 54-19-7706pibxxwfdkhIM BRENT ASUNCION .Facility:M0Tliqk: 05-25-2022 End: 19-18-4987bkjobzgqajZM BRENT ASUNCION .Facility:I9Qvelp: 05-21-2022 End: 59-49-8549Hebfban encounter procedurePaanuj AYALA [facility] start: 05-20-2022 End: 68-06-9933rmrzusgsyeUB SURYA HODGESFacility:L2Lxovz: 05-08-2022 End: 96-05-6116tuftbxyrreOW SURYA HODGESFacility:F2Wmcet: 03-23-2022 End: 37-16-9496yhrktyulluWPSRXSNS CULLENFacility:M3Dktzw: 03-16-2022 End: 12-49-2692iaaziwlqpdAayzad Tracie Other noIggli Other Start: 91-02-6854Mblggl outpatient visit 15 minutes Surya José LuisG [facility] ClinicStart: 23-91-0491Jjbvvynqvavxt examination normalMarmike Hodges Other [employer] Other Start: 83-25-6141srgnlidxzbRG SURYA Dejesus TRACIE Facility:B8Tvrvr: 02-21-2022 End: 84-04-0513jqekosmmfmMS Surya Hodges Work Phone: [facility] Work Phone: Start: 02-21-2022 End: 68-59-6102Lhgnpkc encounter procedureMD Surya Hodges Work Phone: [facility] Miguel Start: 01-13-2022 End: 75-17-6491pbwwzrjwohIR BRENT ASUNCION .Facility:E8Bvlhy: 01-13-2022 End: 28-90-6423Pvrjked encounter procedureJENNIFER E MANDEEP [facility] start: 12-21-2021 End: 66-04-0403jjthxdsujgLT BRENT ASUNCION .Facility:I7Rzudu: 04-08-2021(URG) Urgent Care VisitPamela PilarFPG Urgent Care ClydeStart: 04-08-2021 End: 65-97-9523vmqtrahuoeJrbpau Pilar Other [facility] [employer] Other Start: 61-38-5961Gcw-procedure evaluation checkSurya Hodges Other [facility] [employer] Other Procedures DateProcedureProcedure DetailPerforming ClinicianStart: 18-14-3451Etjplqly screenJENNIFER ROHRBACHERComment on above:Order Comment: Specimen Type: BLOOD SPECIMENOrdering Facility: [facility] Address:[address] [place], [place] [address]Performed By: #### TSCR ####[facility] MAIN LABCLIA [id number] [place] [address] [place] AMERICAStart: 48-11-5856Fucnsbsetcu pyelogramJennifer Rohrbkylah FLORENTINON Work Phone: Start: 83-79-5604TBD,APTIMA HPV,AGE GDLNCorey Asuncion DO Work Phone: Start: 44-55-1524Gdtxoijkukn removal of ureteric stent Kamaljit AYALA Start: 08-42-7496PHR CBC WITH AUTO DIFFCorey Asuncion DO Work Phone: Start: 36-67-1606CZB 12-LEADCorey Asuncion DO Work Phone: Start: 03-37-0363YQTKWFFIM VAGINITIS (HTRX)Brent Asuncion DO Work Phone: Start: 38-17-1719Pvkan dip stick/tablet rgnt non-auto w/o micrscpCorey Asuncion DO Work Phone: Start: 01-11-5383RM PELVIS W/ TRANSVAGINALCorey Asuncion DO Work Phone: Start: 04-72-4763Tuwdqomopwg observation [Identifier] in Cervix by Cyto stainCorey Asuncion DO Work Phone: Start: 00-94-8803Uwhk cerv/vag auto thin layer prep mnl screenCorey Asuncion DO Work Phone: Start: 59-00-0101Dzmbezzaokoaiva of liverMD Surya Hodges Work Phone: Start: 34-88-3838Jbrvmesjjhk Panel (PCR)MD Surya Hodges Work Phone: Start: 56-81-6655Hftid chest X-rayMD Surya Hodges Work Phone: Start: 24-82-1202B-ray of left ankleMD Surya Hodges Work Phone: Start: 67-76-4621Vvmjttotb of urethraPaanuj AYALA appendectomyJENNIFER MANDEEP CholecystectomyJENNIFER MANDEEP Depression screeningMarcia Tracie Other H/O: hysterectomyH/O: hysterectomyCorey Asuncion DO Work Phone: H/O: hysterectomyH/O: hysterectomyMolly Jocy STILES Work Phone: HysterectomyJENNIFER MANDEEP HysterectomyMarcia Tracie Other Insertion of intrauterine contraceptive deviceYaricia Tracie Other MRI guided ablation of uterine fibroidJENNIFER MANDEEP End: 33-20-7679Gwfzrdw of intrauterine deviceYaricia Tracie Other Plan of Treatment DateCare ActivityDetailAuthorStart: 10-14-9137Cuozyqjua for malignant neoplasm of cervixNOMS HealthcareStart: 02-05-2025 End: 23-33-8938Npfpznj encounter hmercepbl65/25/2025 9:00 AM EST Office Visit Urology [address] [place] [address] Nato Hawkins MD [address] [place] [address] Cysto Stent RemovalUrologyComment on above:Cysto Stent RemovalStart: 01-07-2025 End: 45-55-6249Mrkbrpzjh to same day surgery mhqvyl1101/07/2025 8:25 AM EDT - 01/07/2025 12:48 PM EDT Surgery Admitting [address] [place] [id number] Nato Hawkins MD [address] [place] [address] XI ROBOTIC LAPAROSCOPIC REIMPLANT URETER BLADDER W/ PSOAS HITCH OR BLADDER FLAPAdmittingComment on above:XI ROBOTIC LAPAROSCOPIC REIMPLANT URETER BLADDER W/ PSOAS HITCH OR BLADDER FLAPStart: 48-81-6755Yhefhmhvti hospital visit by /27/2025 8:25 AM EDT Hospital Encounter Admitting [address] [place] [address] Nato Hawkins MD [address] [place] [address] Ureteral stricture [N13.5]AdmittingComment on above:Ureteral stricture [N13.5]Start: 01-07-2025 End: 02-95-8910Cexbvqmq laparoscopy procedure ureterXI ROBOTIC LAPAROSCOPIC REIMPLANT URETER BLADDER W/ PSOAS HITCH OR BLADDER FLAP Ureteral stricture 1 8:25 AM EDTMC MAIN PAVILIONStart: 12-31-2024 End: 65-97-6823Rxhwwtp encounter accxyirel63/20/2025 11:15 AM EDT Appointment Radiology [address] [place] [address] W/WO IV CON Pre-OpRadiologyComment on above:Urogram CT W/WO IV CON Pre-OpStart: 12-31-2024 End: 31-33-1256saxqqftaik91/20/2025 10:45 AM EDT Results Only [place] [facility] Laboratory [address] [place], [place] [phone] ct firstLorain [facility] LaboratoryComment on above:ct firstStart: 12-31-2024 End: 89-12-4582Mofobgrdct fxzwpfbfsbre62/20/2025 9:40 AM EDT PAT Pre Anesthesia [address] [place] [address] 1, Pacc [place] [address] [place] [address] Pre-Op, 01/07/2025, Dr. Irena Antonio AnesthesiaComment on above:Pre-Op, 01/07/2025, Dr. Chamberlain-FoyStart: 91-65-8856Twcogtjv identified in Urine by CultureUrine [facility] Hospitaltart: 87-56-1014Iaavj cultureMercer County Community Hospital Start: 12-24-2024 End: 34-26-3590NVSZGUXBM CULTURE, UROLOGY PRESURGICAL SCREENING, URINEBACTERIAL CULTURE, UROLOGY PRESURGICAL SCREENING, URINE Microbiology Routine Ureteral stricture Hydronephrosis with ureteral stricture, not elsewhere classified Expected: 12/24/2024, Expires: 01/07/2025leveland ClinicComment on above: Expected: 12/24/2024, Expires: 01/07/2025Start: 12-24-2024 End: 05-39-4250CPM panel - Blood by Automated countCOMPLETE BLOOD COUNT Lab Routine Ureteral stricture Hydronephrosis with ureteral stricture, not elsewhere classified Expected: 12/24/2024, Expires: 01/07/2025[facility] Work Phone: Comment on above:Expected: 12/24/2024, Expires: 01/07/2025Start: 12-24-2024 End: 42-17-4869Swqfshjrwnhxd metabolic 2000 panel - Serum or PlasmaCOMPREHENSIVE METABOLIC PANEL Lab Routine Ureteral stricture Hydronephrosis with ureteral stricture, not elsewhere classified Expected: 12/24/2024, Expires: 01/07/2025 [facility] OhioComment on above:Expected: 12/24/2024, Expires: 01/07/2025Start: 12-24-2024 End: 39-98-4426EREY + SCREENTYPE + SCREEN Blood Bank Routine Ureteral stricture Hydronephrosis with ureteral stricture, not elsewhere classified Expected: 12/24/2024, Expires: 01/07/2025[facility] hospitaland ClinicComment on above:Expected: 12/24/2024, Expires: 01/07/2025Start: 12-10-2024 End: 42-55-3408Fukhplg encounter ydfhmlrnp89/29/2025 2:00 PM EDT Office [place] [address] Pre-OpFinancial Clearance Phone ScreeningComment on above:Pre-OpStart: 89-07-7672Mlhynnbcb vaccinationNOMS HealthcareStart: 11-06-2024 End: 50-12-3174Ztabnoq encounter sjozdwmyp33/26/2025 2:40 PM EDT Office Visit [facility] [address] [place] [address] Brent Roland, DO [address] [place] [address] NOMYung [place] OBGYNStart: 10-09-2024 End: 09-34-0478Wjilggo encounter procedureNOMS BCP OBComment on above:Arrived Start: 08-14-2024 End: 18-22-7680Lbeffck encounter iymuiypsd86/03/2025 1:20 PM EDT Office Visit [facility] [address] [place] [address] Yesica Mcnair, PA [address] [place] [address] ArrivedNODC BCP OBComment on above:ArrivedStart: 07-10-2024 End: 45-94-2182Kfpgqxr encounter yzdzjfazs60/29/2025 10:00 AM EDT Office Visit [facility] [address] [place] [phone] Brent Roland, DO [address] [place] [address] ArrivedNOMS BCP OBComment on above:ArrivedStart: 53-30-0629GmxjbnlkuMemorial Health Systemtart: 91-72-5537Sixdnfxg admission [facility] Systemtart: 74-69-2651Zhxtpiwhy vaccinationInfluenza Vaccine (#1)NOMS HealthcareStart: 59-71-1509Rocczvzox for malignant neoplasm of cervixNOMS HealthcareStart: 65-26-8361LAP Vaccine (1 - 3-dose SCDM series)HPV Vaccine (1 - 3-dose SCDM series)[facility]burgtart: 96-73-2168Fmqjgxetq for malignant neoplasm of cervixLAYTON [facility]OS[facility] HealthcareStart: 12-89-3824Ymvqtudfy B Vaccine (1 of 3 - 19+ 3-dose series)Hepatitis B Vaccine (1 of 3 - 19+ 3-dose series) [facility]burgtart: 70-34-8170Fbvfn microalbumin profileDTaP,Tdap,Td Vaccine (1 - Tdap)[facility]burgtart: 95-99-2219Dgujkqt ScreeningAnxiety Screening [facility]tart: 55-73-7571Yawsztvyar ScreeningDepression Screening [facility]burgtart: 39-14-9096Ukmdubyyg C screeningHepatitis C Screening [facility]burgtart: 29-59-1540UVQ screeningHIV ScreeningSelect Medical Specialty Hospital [facility] Southeast OhioCBC W Auto Differential panel - BloodCBC and differential Lab Routine Metabolic syndrome Hormone imbalance Ordered: 04/21/2023[facility] Work Phone: comment on above:Ordered: 04/21/2023HLAMYDIA TRACHOMATIS (GENITO/STI)CHLAMYDIA TRACHOMATIS (GENITO/STI) Lab Routine Pelvic pain Ordered: 07/10/2024[facility] HealthcareComment on above:Ordered: 07/10/2024 Comprehensive metabolic 2000 panel - Serum or [facility] HospitalComprehensive metabolic 2000 panel - Serum or [facility] HospitalComprehensive metabolic 2000 panel - Serum or PlasmaComprehensive metabolic panel Lab Routine Pre-op evaluation Pelvic pain in female H/O: hysterectomyOrdered: 07/23/2024[facility] [employer] Work Phone: comment on above:Ordered: 07/23/2024 End: 51-22-8857RW Kidney WO and W contrast IVCT UROGRAM WO/W IVCON Radiology Routine Hydronephrosis with ureteral stricture, not elsewhere classified 1 Occurrences starting 11/21/2024 until 12/21/2025leveland ClinicComment on above:1 Occurrences starting 11/21/2024 until 12/21/2025ytology Cervical or vaginal smear or scraping studyPap Smear Pathology and Cytology Routine Well woman exam with routine gynecological exam Ordered: 10/09/2024[facility] [employer] Work Phone: comment on above:Ordered: 10/09/2024Human papilloma virus DNA [Presence] in Unspecified specimen by Probe with amplificationHPV DNA probe, amplified Microbiology Routine Well woman exam with routine gynecological exam Ordered: 10/09/2024[facility] HealthcareComment on above:Ordered: 10/09/2024 Neisseria gonorrhoeae DNA [Presence] in Unspecified specimen by LEO with probe detectionNeisseria gonorrhea DNA probe, direct Lab Routine Pelvic pain Ordered: 07/10/2024[facility] HealthcareComment on above:Ordered: 07/10/2024Patient Education Mediterranean Diet Hyperthyroidism (Overactive Thyroid) (DC) Propranolol Prediabetes (DC)[facility] Work Phone: Patient referralAdams County Hospital Ctr Work Phone: SURESWAB(R) ADVANCED VAGINITIS PLUS, TMASURESWAB(R) ADVANCED VAGINITIS PLUS, TMA Pathology and Cytology Routine Pelvic pain Ordered: 07/10/2024[facility] Work Phone: comment on above:Ordered: 07/10/2024XR Knee - left 4 [facility] Immunizations Immunization DateImmunizationNotesCare SpwsludgOsiqbqgy36-41-1027EFCP-MyY-8 (COVID-19) mRNA BNT-162b2 vaxJENNIFER MANDEEP [facility] on above:Result Comment: 2022-01-11: KQHLDQ61-10-2760VQUE-SgW-0 (COVID-19) Ad26 vaccine, recombinantJENNIFER MANDEEP [facility] on above:Result Comment: 2022-01-11: TPVALL Payers DatePayer CategoryPayerPolicy [id number] Health Insurance [id number] [facility] [id number]336AhdnlplLING [facility] [id number] 2021-Present [phone] [facility] [id number] [place] [address] 1.2.840.230296.1.13.693.2.7.3.759[id number] 2.16.840.1.252638.3.57[id number] 2.16.840.1.925115.3.57[id number] 2.16.840.1.241343.3.579.[id number] 2.16.840.1.014268.3.579.2.46375-52-2455Yyjyhmo3344446 2.16.840.1.560441.3.579.2.72198-33-5186Yoagoea3070595 2.16.840.1.651314.3.579.2.07556-65-0521Rxyubvs4570748 2.16.840.1.786556.3.579.2.39346-20-2698Wprqsmg7779938 2.16.840.1.883856.3.579.2.80953-49-9253Pvskxbv2821397 2.16.840.1.946280.3.579.2.88298-69-8062Xqnzlca5779250 2.16.840.1.762315.3.579.2.73365-69-3515Ojwijpz5214076 2.16.840.1.250951.3.579.2.22025-65-0780Jwlmsds9208939 2.16.840.1.986590.3.57[id number] 2.16.840.1.682937.3.579.2.378391-16-0480Olghcsu80854224 2.16.840.1.961317.3.579.2.742665-84-0365Ewffxdd0046471 2.16.840.1.112008.3.579.2.517022-38-5020Owmkrag4142974 2.16.840.1.207813.3.579.2.45[id number] 2.16.840.1.046322.3.579.2.64858-36-3261Yimchyz06280095 2.16.840.1.926537.3.579.2.41243-98-7798Czztlyh99350021 2.16.840.1.017619.3.579.2.74696-64-3519Dbarfhc09039204 2.16.840.1.499330.3.579.2.48684-75-8236Fjthtbn94923655 2.16.840.1.884976.3.579.2.50010-09-2788Itbavsl01148711 2.16.840.1.012438.3.579.2.42995-67-8131Htjhxqy34621497 2.16.840.1.824841.3.579.2.11802-26-6637Uroc Cross Blue [id number] 2.16.840.1.125259.19Self-paySelf Wgw12272544-79q6-6001-8981-5r41ll1o033iMhtlefn Harpal MOSES/[id number] 1w15m226-2g9l-84y9-d959-4h6412mv20zy Social History DateTypeDetailFacilityUnknown if ever smokedNort [employer] Other Start: 02-09-2023 End: 65-41-8276Ppn Assigned At [facility]rt: 01-13-2022 End: 28-57-0521Iyezuhi smoking statusNever smoked tobacco (finding)[facility] Centertart: 39-07-3861Qtnylcj smoking statusNeverExecutive Urology of [facility] Medical Centertart: 76-68-3163Vau Assigned At [facility] Generaltart: 02-09-2023 End: 44-98-8209Kuxwkro intakeEx-drinker (finding)[facility] HealthcareStart: 02-09-2023 End: 19-22-8643Cbjzgju of Social functionNOMS HealthcareStart: 19-56-6228Mymigvc Commentoccasional: drinks wine & beerNOMS HealthcareStart: 80-90-5818Ramzwr identityIdentifies as female gender (finding)[facility] HealthcareStart: 03-18-2010 End: 40-79-6586JycHtaljj (finding)[facility] Systemexual OrientationExecutive [facility] of [facility] Tobacco smoking status NHISTobacco smoking consumption unknownKettering Health Miamisburgtart: 88-97-8888Maf assigned at community healthNot on file [facility] Goals DatePatient GoalDesired Activity/StatePersonal health goal Functional Status WfgbIganfcssbjRghybtZlvetztk48-99-5663Pmmfuuhuun statusPatient at Baseline [facility] Work Phone: [phone]) 850-84340545490-32-2021Nvixiqrjru StatusN/AExecutive [facility]rology of [facility]11-02-2022Functional StatusN/AExec[facility] Mental Status YfxwZpdeaqqltkArtosgHnnjbgoj89-41-9673Guturauus functionCognitive Status [facility] Work Phone: Clinical Notes 04-08-2021 to 01-07-2025 Note Date & LsznLhenJsyjdzem78-77-9071 NoteHNO ID: [id number] Author: LEONORA PINO, DO Service: ? Author [...] Successful intubation technique: video laryngoscopy Devices used: [employer] Endotracheal tube insertion site: oral Blade: Sandy Blade size: #3 ETT size (mm): 7.0 Measured from: lips Measurement (cm): 22 Placement verified by: chest auscultation and capnometry Cormack-Lehane Classification: grade IIa - partial view of glottis Number of attempts at approach: 1 Airway not difficult SIGNATURE: Leonora Pino DO PATIENT NAME: Karlene Alfaro DATE: January 07, 2025 TIME: 8:14 AM CSN: [id number]. Mary'S Medical Center10-20-2025 NoteHNO ID: [id number] Author: KATHY SLATER RT(R) Service: ? Author Type: Technologist [...] PATIENT PRESENTS WITH AN IMPLANTABLE OR ATTACHED UTILIZATION COORDINATOR: No ALLERGIES: Reviewed and unchanged CONTRAST ALLERGY: [...] Alfaro DATE: December 31, 2024 TIME: 11:02 [facility]09-09-2025 NoteHNO ID: [id number] Author: NATO HAWKINS MD Service: ? Author Type: Physician Type: Progress Notes Filed: 11/20/2024 12:24 Note Text: [facility] UROLOGY NEW [...] MD Staff Urologist Genitourinary Reconstruction [facility] Department of Urology I spent a total of 30 minutes on the date of the service which included preparing to see the patient, hadt-vn-urji patient care, completing clinical documentation, obtaining and/or reviewing separately obtained history, performing a medically appropriate examination, counseling and educating the patient/family/caregiver, and ordering medications, tests, or procedures. >50% of time was devoted to patient counseling. [1][facility] MassachusettsCrbjzkvp20-91-1038 History of Present illness Narrative* Nato Hawkins MD - 11/20/2024 10:00 AM EDT Images from the original note were not included. [facility] UROLOGY NEW [...] MD Staff Urologist Genitourinary Reconstruction [facility] Department of Urology I spent a total of 30 minutes on the date of the service which included preparing to see the patient, zcxv-dr-tgaf patient care, completing clinical documentation, obtaining and/or reviewing separately obtained history, performing a medically appropriate examination, counseling and educating the pat ient/family/caregiver, and ordering medications, tests, or procedures. >50% of time was devoted to patient counseling. [1] documented in this encounterSelect [facility]07-29-2025 History of Present illness Narrative* Leatha Blair [...] 0.4 mg, Daily ALLERGIES Allergies Allergen Reactions Deffbxj-Czfbny-Rqsum Pertussis Swelling Tetanus-Diphtheria Toxoids Td Other Azithromycin [...] nursing note reviewed. Exam conducted with a anthropology and archeology instructor present. Vitals: Estimated body mass index is [...] them. Patient can also view results via [employer]. I reinforced importance of condom use for [...] of: Brent Roland DO documented in this encounterChildren's Mercy HospitalKyplfhkxnw62-70-8694 Hospital Discharge instructions Patient Education 10/02/2024 15:41:56 [...] include: ?8 oz (237 mL) of milk, zlmoqra-dbcpmykkqzxy-bworx milk, and calcium- fortifiedfruit juice. Calcium-fortified means [...] ?Spinach (cooked), rhubarb, beets, sweet potatoes, and Cuban chard. ?Peanuts. ?Potato chips, icelandic fries, and baked potatoes with skin on. ?Nuts and nut products. ?Chocolate. If you regularly take a diuretic medicine, make sure to eat at least 1 or 2 servings of fruits or vegetables that are high in potassium each day. These include: ?Avocado. ?Banana. ?[place], prune, carrot, or tomato juice. ?Baked potato. [...] magnesium, fish oil, or vitamin B6. Take snkm-gjo-mxefgem and prescription medicines only as told by [...] Casseroles. Pizza. Lasagna. Frozen meals. Potato chips. Armenian fries. The items listed above may not [...] provider. Document Revised: 06/10/2022 Document Reviewed: 06/10/2022 [employer] Patient Education 2023 [employer]. Follow Up Care 09/11/2024 09:57:49 With:LUCY STILES, Kamaljit Rivas, URL Address: [facility] [address], [place] [address]- When: Unknown [facility] 07-22-2025 NotePatient Education Nephrology Dietary Guidelines to [...] ? 8 oz (237 mL) of milk, ndpjbzz-xgcqjzzgmdba-bylpy milk, and calcium- fortifiedfruit juice. Calcium-fortified means [...] Spinach (cooked), rhubarb, beets, sweet potatoes, and Cuban chard. ? Peanuts. ? Potato chips, icelandic fries, and baked potatoes with skin on. ? Nuts and nut products. ? Chocolate. ??? If you regularly take a diuretic medicine, make sure to eat at least 1 or 2 servings of fruits or vegetables that are high in potassium each day. These include: ? Avocado. ? Banana. ? [place], prune, carrot, or tomato juice. ? Baked [...] fish oil, or vitamin B6. ??? Take vygo-hhh-pntpcsn and prescription medicines only as told by your health (more content not included)...[facility]06-25-2025 Evaluation note* Diagnosis Onset Date Resolution Status Admit Date Poison abena dermatitis acuteJune 2024 1:43pm [facility] Work Phone: [phone]) 305-161406-03-2025 History of Present illness Narrative* MARGRET Canales [...] chew, or split. ALLERGIES Allergies Allergen Reactions Coypenv-Aosniu-Hiafr Pertussis Swelling Tetanus-Diphtheria Toxoids Td Other Azithromycin [...] behalf of: MARGRET Canales documented in this encounterChildren's Mercy HospitalTreamgzdct03-15-4802 History of Present illness Narrative* Brenda Tomlinson [...] on 08/02/[address] Roland at [facility]. MEDICATIONS Current Outpatient Medications Medication Instructions [...] chew, or split. ALLERGIES Allergies Allergen Reactions Ddidmuu-Euyjda-Dkrft Pertussis Swelling Tetanus-Diphtheria Toxoids Td Other Azithromycin [...] nursing note reviewed. Exam conducted with a anthropology and archeology instructor present. Vitals: Estimated body mass index is [...] of: Brent Roland DO documented in this encounterChildren's Mercy HospitalFmfogrsayx93-51-3281 History of Present illness Narrative* Leatha Blair [...] Oral, Daily ALLERGIES Allergies Allergen Reactions Adacel [Yjvnmbi-Ocqqkh-Bwhxb Pertussis] Swelling Clindamycin Rash PROBLEMS Active Ambulatory [...] nursing note reviewed. Exam conducted with a anthropology and archeology instructor present. Vitals: Estimated body mass index is [...] of: Brent Roland DO documented in this encounterChildren's Mercy HospitalWsyugstcls14-32-4835 Evaluation note* Diagnosis Onset Date Resolution Status Admit Date Obesity (BMI 30.0-34.9) acuteJanuary 2024 11:26amHypothyroidismacuteMarch 2024 10:00am [facility] disordersacute[facility] 2024 10:00amScreening for metabolic disorderacuteTuscaraw[facility] Hospital 2024 10:00amScreening, deficiency anemia, ironacuteTuscarawas Hospital 2024 10:00amVitamin D deficiencyacuteTuscarawas Hospital 2024 10:00am [facility] Work Phone: 1([phone]) 999-397912-04-2024 Evaluation note* Diagnosis Onset Date Resolution Status Admit Date Bronchitis acuteDecember 2023 1:00pmMaxillary sinusitisacuteDecember 2023 1:00pm Obesity (BMI 30.0-34.9)[facility]Deph[facility] 2023 1:00pm [facility] Work Phone: 1(274) 797-715102-08-2024 History of Present illness Narrative* MARGRET Canales - 04/21/2023 8:50 AM EST Reason for Appointment: Patient ID: Tootie Alfaro is a 32 y.o. female who presents for telehealth follow up Patient presents today via telephone call for a telehealth appointment. Patients Phone #: [phone] (mobile) Current Medications: has a current medication [...] LIGATION Bilateral 2012 Allergies Allergen Reactions Adacel [Cvexoit-Ckqgnc-Kwczt Pertussis] Swelling Clindamycin Rash Vitals: Estimated body [...] for cbc check for kidney function to [facility]. Pt aware and agrees to have blood work obtained. She will follow up in office in 3 months Documented by MARGRET Canales on behalf of: MARGRET Canales * Hedy Carter MA - 04/21/2023 8:50 AM EST Cbc order [facility] to [facility] for pt to have done. documented in this encounterNOMadison Medical CenterBlaztuatip02-39-7558 Evaluation note* Encounter Date Diagnosis Assessment Notes Treatment Notes Treatment Clinical Notes Mar, Bronchitis (ICD-10 - J40) Discussed diagnosis with patient. Finish entire course of antibiotic. Proair inhaler sent today forpatient to use PRN cough/wheezing/shortness of breath. Tessalon Pearles ordered to take as needed for cough. Increase fluids and rest. Avhv-eao-ccedmcv antipyretics as needed. Warning signs and symptoms reviewed with patient today. Patient to go immediately to the ER should she experience any of these. Patient to notify office should her symptoms persist and not improve. Patient verbalizes understanding and agrees to treatment plan. Mar,Vaginal yeast infection (ICD-10 - B37.31)Pt requests diflucan to cover probable yeast infection w antibiotic. [employer] Other 12-29-2023 Evaluation note* Encounter Date Diagnosis Assessment Notes Treatment Notes Treatment Clinical Notes Feb, Sore throat (ICD-10 - J02.9) [employer] Other 10-06-2023 Evaluation note* Encounter Date Diagnosis Assessment Notes Treatment Notes Treatment Clinical Notes Dec, Hypothyroidism (ICD-10 - E03.9) Recheck in next 4-6 weeks. Continue healthy diet and exercise. [employer] Other 09-20-2023 Discharge summary Author Baljinder Polanco [facility] December 01, 2022 5:19pmNote Date/TimeSept2022 1:02pmMercedes Ville [id number] Discharge Summary Signed Patient: Karlene Alfaro MR#: [id number] : 1990 Acct:[id number] Age/Sex: 32 / F Adm Date: 3 Loc: Room: [address] [place] [address]: Baljinder Polanco MD Copies to: [...] H, LDL Cholesterol, Calc 132 H, VLDL Thmlyjtlfsx90, HDL Cholesterol 54, Cholesterol/HDL Ratio 4.0 12/01/22 [...] % (Auto) 59.2, Lymph % (Auto) 32.3, [place] % (Auto) 6.8, Eos % (Auto) 0.9, Baso % (Auto) 0.8, Nucleat RBC Rel Count 0.2, Neut # (Auto) 4.9, Lymph # (Auto) 2.7, [place] # (Auto) 0.6, Eos # (Auto) 0.1, Baso # (Auto) 0.1, Monocyte Dist Width19.22 11/30/22 13:00: PHA Creatinine Clear 114.08, Sodium 138, Potassium 4.1, Wxbsnngg048, Carbon Nqrqkuv47.9, Anion Gap 14.2, BUN 9, Creatinine 0.83, Est GFR (CKD-EPI) > 60.0, Glucose 77, Calcium 9.5,Magnesium 1.9, Total Bilirubin 0.9, DirectBilirubin 0.00 L, Indirect Bilirubin 0.9, AST 11 L, ALT 16, Alkaline Zwgyzjzetml10, Total Protein 7.6, Albumin 4.4, Globulin 3.2, [...] <Electronically signed by Baljinder Polanco MD> 12/01/22 [address] [facility] Work Phone: 1(911) 320-864109-19-2023 History and physical note Author Baljinder Polanco [facility] November 30, 2022 4:34pmNote Date/TimeSeptember 2022 4:34[place] [address] Hospitalist H&P Signed Patient: Karlene Alfaro MR#: [id number] : 1990 Acct:[id number] Age/Sex: 32 / F Adm Date: 3 Loc: Room: [address] [place] [address] Type: ADM IN Attending Dr: Baljinder Polanco [...] rub or JVD. Peripheral pulses present bilaterally. Nsnvh-vm-nhck ultrasound is unremarkable. Lungs are clear to [...] contributes to her symptoms. DVT prophylaxis Xarelto [facility] Medical History (Updated 11/30/22 @ 15:13 by [...] % (Auto) 32.3 % (.) 11/30/22 13:00 Cheshire % (Auto) 6.8 % (.) 11/30/22 13:00 Eos % (Auto) 0.9 % (.) 11/30/22 13:00 Baso % (Auto) 0.8 % (.) 11/30/22 13:00 Nucleat RBC Rel Count 0.2 /100 WBC (0-0.5) 11/30/22 13:00 Neut # (Auto) 4.9 x10E3/uL (1.8-7.7) 11/30/22 13:00 Lymph # (Auto) 2.7 x10E3/uL (1.00-4.8) 11/30/22 13:00 [place] # (Auto) 0.6 x10E3/uL (0.0-0.8) 11/30/22 13:00 [...] >= 9.0 (5.0-9.0) 11/30/22 16:04 Ur Specific [place] 1.013 (1.001-1.030) 11/30/22 16:04 Urine Protein Negative [...] signed by Baljinder Polanco MD> 11/30/22 [address] [facility] Work Phone: 1(822) 979-820109-18-2023 Evaluation note* Encounter Date Diagnosis Assessment Notes Treatment Notes Treatment Clinical Notes Nov, Right-sided chest pain (ICD-10 - R07.9) HR regular, check EKG for complete workup of the chest discomfort Nov,yspnea, unspecified (ICD-10 - R06.00)Check labs r/o anemia or other metabolic causes. 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 Complete all doses. Wash all belongings that came in contact with plant oils. May continue to use Calamine lotion. Patient verbalized understanding and agreement with treatment plan. [employer] Other 08-07-2023 Evaluation note* Encounter Date Diagnosis [...] to ER and Follow-up with me immediately. [employer] Other 07-07-2023 Evaluation note* Encounter Date Diagnosis Assessment Notes Treatment Notes Treatment Clinical Notes Sep, Overweight (ICD-10 - E66.3) Sep,ody mass index [BMI] 29.0-29.9, adult (ICD-10 - Z68.29) [employer] Other 06-29-2023 Evaluation note* Encounter Date Diagnosis Assessment Notes Treatment Notes Treatment Clinical Notes Aug, Acute contact dermatitis (ICD-10 - L25.9) Take medications as directed. Complete all doses. Wash all belongings that came in contact with plant oils. May continue to use Calamine lotion. Patient verbalized understanding and agreement with treatment plan. [employer] Other 04-05-2023 NoteOPERATIVE NOTE OPERATION DATE: 06/16/2022 PROCEDURE: Diagnostic laparoscopy. PREOPERATIVE DIAGNOSIS: Pelvic pain, left ovarian cyst. POSTOPERATIVE DIAGNOSIS: Pelvic pain, left ovarian cyst. ANESTHESIA: General. SURGEON: Brent Roland D.O. INFORMATION CLERK [employer]: MIRNA Harden URINE OUTPUT: Yellow and clear. [...] to Recovery Room in stable condition.[id number] Discharge instructions Patient Education 05/21/2022 10:45:43 Kidney Stones, Wlgu-py-Wdze Kidney Stones Kidney stones are rock-like masses [...] Follow these instructions at home: Medicines Take tehp-mtv-dtfmkme and prescription medicines only as told by [...] 08/16/2008 Document Revised: 07/17/2019 Document Reviewed: 07/17/2019 [employer] Patient Education 2020 [employer]. Follow Up Care 05/11/2022 13:32:37 With:LUCY STILES, Kamaljit Rivas, URL Address: [address] [place], [place] [address]- When: Unknown [facility] 01-03-2023 Evaluation note* Encounter Date Diagnosis Assessment Notes Treatment Notes Treatment Clinical Notes Mar, Pharyngitis, unspecified etiolog y (ICD-10 - J02.9) New medications as directed. Increase fluids, rest, good hand washing. OTC for fever/discomfort. Tooth brush in the mason tender or get a new one after on antibiotics for 24 hours. F/U if no improvement in the next 72 hours Mar,Vaginal yeast infection (ICD-10 - B37.31)Will treat empirically for yeast, discharge and sx reported consistent with that of vaginal candidiasis. Instructed patient to take as directed, advised that she should feel improvement in about 2 days. [employer] Other 11-02-2022 Hospital Discharge instructions Patient Education [...] 02/14/2013 Document Revised: 10/18/2018 Document Reviewed: 10/18/2018 [employer] Patient Education 2020 [employer] Follow Up Care 01/11/2022 14:36:11 With:[facility] Address: [address] [place] [address] Business (1) When: Unknown Comments:for procedure as scheduled [facility] 01-26-2022 Evaluation note* Encounter Date Diagnosis Assessment [...] Patient care instructions given in writting by [facility] Care At Home document. [employer] Other Evaluation + Plan note No data available for this section [facility] evaluation + Plan note Future Appointments Appointment Date:09/03/2022 08:00:00 AM Scheduled Provider:Kamaljit AYALA MD Location:[facility] Appointment Type:URO Office Visit [facility] evaluation + Plan note Future Appointments Appointment Date:12/28/2024 08:00:00 AM Scheduled Provider:Kamaljit AYALA MD Location:[facility] Appointment Type:URO Office Visit [facility] Evaluation noteNo assessment information available [facility] Work Phone: evalumeawd noteNo InformationNort [employer] Other Evaluation note* Diagnosis Onset Date Resolution Status Chest pain acuteTachycardiaacute [facility] Work Phone: Evaluation note* Diagnosis Insulin resistance Other abnormal glucose Metabolic syndrome Dysmetabolic Syndrome X Hormone imbalance documented [facility] Diagnosis Onset Date Resolution Status Allergic reaction due to antibacterial d rug acuteStreptococcus pharyngitisacute [facility] Work Phone: Evaluation note* Diagnosis Onset Date Resolution Status Anxiety acuteThyroid diseaseacuteMigrainesacuteScreening for lipid disordersacute Screening for metabolic disorderacuteScreening, deficiency anemia, ironacute [facility] Work Phone: Evaluation note* Diagnosis Onset Date Resolution Status Migraines acuteScreening for lipid disordersacuteScreening for metabolic disorderacute Screening, deficiency anemia, ironacuteLeft knee painacute [facility] Work Phone: evaluation note* Diagnosis Onset Date Resolution Status Migraines acuteScreening for lipid disordersacuteScreening for metabolic disorderacute Screening, deficiency anemia, ironacuteLeft knee painacuteWellness examination acutePoison abena dermatitisacute [facility] Work Phone: Evaluation note* Diagnosis Pelvic pain documented in this encounter [facility]* Diagnosis Pre-op evaluation Pelvic pain in female Unspecified symptom associated with female genital organs Pain of ovary H/O: hysterectomy Acquired absence of both cervix and uterus documented in this encounter [facility]* Diagnosis Acute postoperative pain Other acute postoperative pain Postoperative follow-up Follow-up examination, following unspecified surgery Other insomnia documented in this encounter [facility]* Diagnosis Onset Date Resolution Status Admit Date Poison abena dermatitis acuteJune 2024 1:43pm [facility] Work Phone: Evaluation note* Diagnosis Well woman [...] kinking of ureter documented in this encounter [facility] general Narrative - Reported* Type Description Date Medical History hypothyroidism Surgical Historygallbladder removalSurgical HistoryappendecsSurgical History ovarian cysts taken out in Surgical HistoryhysterectomyHospitalization HistorysurgeriesHospitalization Historychild [facility] [employer] Other History general Narrative - Reported* Type Description Date Medical History hypothyroidism Surgical Historygallbladder removalSurgical HistoryappendecsSurgical History ovarian cysts taken out in Surgical HistoryhysterectomyHospitalization HistorysurgeriesHospitalization Historychild birthH[facility] [place]20[place] [facility] [employer] Other Hospital Discharge instructions Additional Instructions You have slightly elevated cholesterol level and prediabetes. Try to eat a healthier diet. Mediterranean diet is the best studied to improve health outcomes. I attached some instructions. Establish care with a primary care physician who will manage all your health issues.[facility] Work Phone: Progress note No data available for this section [facility] reason for referral (narrative)No reason for referral information availableSy[facility] Work Phone: Advance Directives No Advanced Directives [...] 2023 End: September 07, 2023Saniya Mays APRN MOP HANDLE ASSEMBLER-CAttenludmila ProviderActive Start: September 07, 2023 End: September 07, 2023 Team Status: Inactive Member Role Status Devin Hodges MD Primary Care Provide r, Attending Provider Active Start: October 03, 2023 End: October 03, 2023 Team Status: Inactive Member Role Status Devin Hodges MD Primary Care Provider Active Start: October 10, 2023 End: October 10, 2023Saniya Mays APRN MOP HANDLE ASSEMBLER-CAttending ProviderActive Start: October 10, 2023 End: October [...] DateEnd Date Surya Hodges MD [address] [facility] [place] [phone] PCP - [facility]09/27/22 Team Status: Active Member Role Status Dates Saniya Mays APRN MOP HANDLE ASSEMBLER-C Primary Care Provider Active Team Status: Inactive Member Role Status Dates Saniya Mays APRN MOP HANDLE ASSEMBLER-C Primary Care Provider, Attending Provider Active Start: February 15, 2024 End: February 15, 2024 Team Status: Inactive Member Role Status Dates Saniya Mays APRN MOP HANDLE ASSEMBLER-C Primary Care Provider, Attending Provider Active Start: March 15, 2024 End: March 15, 2024 Team Status: Inactive Member Role Status Dates Saniya Mays APRN MOP HANDLE ASSEMBLER-C Primary Care Provider, Attending Provider Active Start: May 16, 2024 End: May 16, 2024Team MemberRelationshipSpecialtyStart DateEnd Date Surya Hodges MD PCP - [facility]09/27/22Team MemberRelationshipSpecialtyStart DateEnd Date Surya Hodges MD [address] [facility] [place] [address] PCP - [facility]09/27/22Team MemberRelationshipSpecialtyStart DateEnd Date Surya Hodges MD [address] [facility] [place] [address] PCP - GeneralFamily Medicine09/27/22Team MemberRelationshipSpecialtyStart DateEnd Date Surya Hodges MD [address] [facility] [place] [address] PCP - GeneralFamily Medicine09/27/22Team MemberRelationshipSpecialtyStart DateEnd Date Surya Hodges MD [address] [facility] [place] [address] PCP - GeneralFamily Medicine09/27/22Team MemberRelationshipSpecialtyStart DateEnd Date Surya Hodges MD [address] [facility] [place] [address] [facility] - [facility]09/27/22Team MemberRelationshipSpecialtyStart DateEnd Date Surya Hodges MD [address] [facility] [place] [address] [facility] - [facility] Medicine09/27/22 Team Status: Active Member Role Status Dates Saniya Mays APRN MOP HANDLE ASSEMBLER-C Primary Care Provider Active Start: July 23, 2024 Marcin Grey ProviderActiveStart: July 23, 2024 Team Status: Active Member Role Status Dates Saniya Mays APRN MOP HANDLE ASSEMBLER-C Primary Care Provider Active Start: August 02, 2024 Marcin Grey ProviderActiveStart: August 02, 2024 Team Status: Active Member Role Status Dates Saniya Mays APRN MOP HANDLE ASSEMBLER-C Primary Care Provider Active Start: August 23, 2024 Darien Martinez ProviderActiveStart: August 23, 2024 Team Status: Inactive Member Role Status Dates Saniya Mays APRN MOP HANDLE ASSEMBLER-C Primary Care Provider Active Start: September 05, 2024 End: September 05, 2024Saniya Mays APRN MOP HANDLE ASSEMBLER-CAtnarinderding ProviderActive Start: September 05, 2024 End: September 05, 2024Team MemberRelationshipSpecialtyStart DateEnd Date Surya Hodges MD [address] [facility] [place] [phone] [facility] Medicine09/27/22Team MemberRelationshipSpecialtyStart DateEnd Date Surya Hodges MD [address] [facility] [place] [phone] [facility] - [facility] Medicine09/27/22 Team Status: Active Member Role Status Dates Saniya Mays APRN MOP HANDLE ASSEMBLER-C Primary Care Provider Active Start: October 09, 2024 Marcin Grey ProviderActiveStart: October 09, 2024 Team Status: Inactive Member Role Status Dates Saniya Mays APRN MOP HANDLE ASSEMBLER-C Primary Care Provider Active Start: October 29, 2024 End: October 29, 2024PaDarien Hoffmann ProviderActiveStart: October 29, 2024 End: October 29, 2024Team MemberRelationshipSpecialtyStart DateEnd Date Surya Hodges MD [address] [facility] [place] [phone] [facility] [place] Wiwbjagt43/10/14 Kamaljit Ayala MD [address] [place] [address] ReferringUrology11/06/24Team MemberRelationshipSpecialtyStart DateEnd Date Surya Hodges MD [address] [facility] [place] [phone] PCP - GeneralFamily Fgqgwuqo34/10/14 Kamaljit Ayala MD [address] [place] [address] ReferringUrology11/06/24 Team Status: Active Member Role Status Dates Saniya Mays APRN MOP HANDLE ASSEMBLER-C Primary Care Provider Active Start: November 08, 2024 Darien Martinez ProviderActiveStart: November 08, 2024 Team Status: Inactive Member Role Status Dates Nato Hawkins MD Attending Provider Active Start: December 26, 2024 End: December 26, 2024 Team Status: Active Member Role Status Dates Saniya Mays APRN MOP HANDLE ASSEMBLER-C Primary Care Provider Active Start: December Marcin Grey ProviderActiveStart: December 26, 2024 Goals (unrecognized section and content) Goals may be documented in a n alternate section INFORMATION SOURCE (unrecogn ized section and content) DATE CREATED AUTHOR 07/01/2022 [facility] DATE CREATED AUTHOR AUTHOR'S ORGANIZ ATION 10/11/2024 [facility] DATE CREATED AUTHOR AUTHOR'S ORGANIZ ATION 12/06/2024 [facility] DATE CREATED AUTHOR AUTHOR'S ORGANIZ ATION 12/26/2024 [facility] DATE CREATED AUTHOR AUTHOR'S ORGANIZ ATION 12/28/2024 [facility] DATE CREATED AUTHOR AUTHOR'S ORGANIZ ATION 01/14/2025 [facility] Source Comments (unrecognize d section and content) In the event this informatio n is protected by the Federal Confidentiality of Alcohol and Drug Abuse Patient Records regulations: The Federal rules restrict any use of the information to criminally investigate or prosecute any alcohol or drug abuse patient.[facility]In the event this information is protected by the Federal Confidentiality of Alcohol and Drug Abuse Patient Records regulations: The Federal rules restrict any use of the information to criminally investigate or prosecute any alcohol or drug abuse patient.[facility] FOR RECORDS PERTAINING TO PATIENTS WHO ARE [...] BE BASED ON THE PRIMARY CLINICAL RECORDS. [facility]. provides no warranty or guarantee of the accuracy or completeness of information in this document.
--- OUTSIDE RECORDS SUMMARY | 2025-03-13 08:10 | XMS_ITS | Encounter Summary ---
Author Organization [facility] Address [address] [place] [address] Care Team Providers Care Body Painter Name Role Phone Kamaljit Romero MD Unavailable Saniya Mays AGRICULTURAL RESEARCH DIRECTOR Primary Care Provider Brent Roland DO Unavailable Source Comments In the event this information is protected by the Federal Confidentiality of Alcohol and Drug AbusePatient Records regulations: The Federal rules restrict any use of the information to criminally investigate or prosecute any alcohol or drug abuse patient.[facility] Encounter Details DateTypeDepartmentCare Team (Latest Contact Info)Wtriytjyvzs66/20/2025Results Follow-Up Urology [address] [place] [address] Brit Sandra MD [address] [place] [address] Social History Tobacco UseTypesPacks/DayYears UsedDateSmoking Tobacco: NeverSmokeless Tobacco: NeverArea Deprivation IndexAnswerDate RecordedNational Score (1-100), lower number is lower xbzt881612/31/2024State Score (1-10), lower number is lower risk4 12/31/2024Data from: https://www.neighborhoodatlas.medicine.[facility].edu/. Last address used for [id number] [facility] 8112/31/2024CommentsNoSex and Gender InformationValueDate RecordedSex Assigned at BirthNot on fileLegal Sex Obgnnq9201/21/2014 11:30 AM ESTGender IdentityNot on fileSexual OrientationNot on filedocumented as of this encounter Plan of Treatment Not on file documented as of this encounter Visit Diagnoses Not on filedocumented in this encounter Care Teams Team MemberRelationshipSpecialtyStart DateEnd Date Saniya Mays NP [address] [place] [address] PCP - GeneralFamily Medicine12/10/24 Kamaljit Romero MD [address] [place] [address] ReferringUrology11/06/24 Brent Roland DO [address] [place] [address] Dr [place] [address] Ob/Gyn12/10/24documented as of this encounter
--- OUTSIDE RECORDS SUMMARY | 2025-03-13 08:10 | XMS_ITS | Clinical Summary ---
Author Organization [facility] Address [address] [place] [address] Care Team Providers Care Transportation Engineer Name Role Phone Kamaljit Romero MD Unavailable [phone] Saniya Mays NP Primary Care Provider Brent Roland DO Unavailable [phone] Allergies Active AllergyReactionsCriticalityNoted VxrsDppfycobTsjitrikacrMzokz31/09/2025 Rash Diphtheria,Pertussis(Acell),Tetanus Pedi UupcrxrIrqyshyp33/13/2023Dtap-Ipv Component 1 Of 2 (Pf)Gxtkxonbxtz62/09/2025 Hives; Rash; Welt Tetanus-Diphtheria Toxoids-TdOther: See Tbmfqzwr68/01/2025 Medications MedicationSigDispense QuantityRefillsLast FilledStart DateEnd DateStatus ibuprofen (MOTRIN) 800 mg tablet TAKE 1 TABLET BY MOUTH EVERY 8 HOURS NEEDED FOR MILD PAINActive levothyroxine (SYNTHROID) 175 mcg tablet Take 175 mcg by mouth daily before breakfast.5Active ciprofloxacin HCl (CIPRO) 500 mg tablet Take 500 mg by mouth two times a day.Active estradiol (CLIMARA) 0.025 mg/24 hr patch Apply 1 patch as directed one time a week.Active metFORMIN ER (GLUCOPHAGE XR) 500 mg 24 hr tablet Take 500 mg by mouth daily with dinner.Active progesterone micronized (PROMETRIUM) 100 mg capsule Take 100 mg by mouth once daily.5Active Active Problems ProblemNoted DateDiagnosed DatePONV (postoperative nausea and vomiting) 12/31/2024 Assessment & Plan (12/31/2024 9:58 AM EDT): Assessment: states gets PONV with anesthesia states gets Scopolamine Obesity without serious ahpsvjqadon14/20/2025 Assessment & Plan (12/31/2024 10:00 AM EDT): Assessment: Body mass index is 31.52 kg/m??. On Metformin Gyzytarbkwzciq30/15/2025 Assessment & Plan (12/31/2024 9:56 AM EDT): Assessment: stable on Levothyroxine(Synthroid) Encounters DateTypeDepartmentCare BildJfmfpwrdicp70/24/2025Telephone Urology [address] [address] Mary Ann Gonzales RN 02/04/2025Telephone Urology [address] [address] Mary Ann Gonzales RN 01/14/2025Telephone Urology [address] [address] Mary Ann Gonzales RN 01/07/2025 7:15 AM EDT - 01/07/2025 11:38 AM EDTSurgery Admitting [address] [place] [address] Brit Sandra MD CYSTOSCOPY, URETEROSCOPY WITH OFBNXDBRKXH21/27/2025 7:15 AM EDTAnesthesia Event Admitting [address] [place] [address] Aniya England MD Sandhu, Amrita, DO 01/07/2025 5:06 AM EDT - 01/07/2025 9:38 AM EDTHospital Encounter Admitting [address] [place] [id number] Brit Sandra MD Ureteral stricture [N13.5] Discharge Disposition: Home01/07/2025Orders Only Urology [address] [address] Brit Sandra MD Ureteral stricture (Primary Dx)01/07/20257550Rypkbq37/20/2025 9:40 AM EDTPAT Pre Anesthesia [address] [place] [address] 2, Pacc Gauri Pre-op evaluation (Primary Dx); Hypothyroidism, unspecified type; PONV (postoperative nausea and vomiting); Obesity without serious comorbidity, unspecified class, unspecified obesity type 12/31/2024 9:08 AM EDT - 12/31/2024 11:59 PM EDTHospital Encounter Radiology [address] [facility] [place] [facility]53 Hydronephrosis with ureteral stricture, not elsewhere classified [N13.1] Discharge Disposition: Home12/31/2024Results Follow-Up Urology [address] [address] Brit Sandra MD 12/31/2024 Get Medical Advice Urology [address] [place] [address] Brit Sandra MD Urine gjuvhfr0712/28/2024Telephone Urology [address] [address] Mary Ann Gonzales, FABBY Personal Banking Representative - Other12/25/2024Tephone Urology [address] [address] Mary Ann Gonzales, FABBY 12/25/2024Tephone Urology [address] [address] Mary Ann Gonzales, FABBY Personal Banking Representative - Other12/18/2024Tephone Urology [address] [address] Mary Ann Gonzales, FABBY 12/18/2024 Patient Msg Urology [address] [address] Mary Ann Gonzales, FABBY [facility]12/17/2024 Get Medical Advice Urology [address] [place] [address] Brit Sandra MD Fmnv12/17/2024 Patient Msg Urology [address] [place] [address] Jessica Pinto, FABBY FMLA UMABGCBPN43/06/2025Telephone Urology [address] [address] Brit Sandra MD Personal Banking Representative - Other12/13/2024Telephone Urology [address] [address] Mary Ann Gonzales RN Personal Banking Representative - Otherfrom Last 3 Months Social History Tobacco UseTypesPacks/DayYears UsedDateSmoking Tobacco: NeverSmokeless Tobacco: Never Tobacco Cessation:Counseling Given: Not Answered Area Deprivation IndexAnswerDate RecordedNational Score (1-100), lower number is lower yfko880312/31/2024State Score (1-10), lower number is lower lnkz517 Data from: https://www.neighborhoodatlas.[facility]/. Last address used for tikscbzwrcy[address] [place], [place] [address]/31/2024CommentsNoSex and Gender InformationValueDate RecordedSex Assigned at BirthNot on fileLegal SexFemale 01/21/2014 11:30 AM ESTGender IdentityNot on fileSexual OrientationNot on file Last Filed Vital Signs Vital SignReadingTime TakenCommentsBlood Lgqgxjsr448/561 8:54 AM EDT Xrrqg264001/07/2025 8:54 AM ZLHXgupmtgpkby46.3 ??C (97.3 ??F)01/07/2025 8:54 AM EDTRespiratory Sodp5006 8:54 AM EDTOxygen Vljyjxyfjn684%01/07/2025 8:54 AM EDTInhaled Oxygen Concentration--Nszxrk77.6 kg (219 lb 11 oz)12/31/2024 9:42 AM EBDCklefq011.8 cm (5' 10 )12/31/2024 9:42 AM EDTBody Mass Index31.52 12/31/2024 9:42 AM EDT Plan of Treatment Health MaintenanceDue DateLast DoneCommentsAnnual PCP Team Chronic Disease Visit 06/10/2007nxiety Sqwujtxpy87/29/2008Depression Kfxzpalrn98/29/2008HIV Screening 06/10/2007Hepatitis C Ubovdahbj78/29/2008DTaP,Tdap,Td Vaccine (1 - Tdap) 2008Hepatitis B Vaccine (1 of 3 - 19+ 3-dose series)2008Cervical Cancer Asnbxhmjg72/29/2011HPV Vaccine (1 - 3-dose SCDM series)2016Covid-19 Vaccine ( season)502/09/2021, 08/14/2020Influenza Vaccine (#1)2024 Procedures Procedure NamePriorityDate/TimeAssociated DiagnosisCommentsINTUBATIONRoutine 01/07/2025 7:46 AM EDT ONSVPUACFBOKQJIMA59/27/2025 7:00 AM EDT Ureteral stricture GLUCOSE, BLOOD (POC)Eqiigkq1601/07/2025 5:41 AM EDT EXTERNAL LAB12/31/2024 2:00 PM EDT EXTERNAL LAB12/31/2024 1:[address] UROGRAM WO/W VNOWLKpmjxnb87/20/2025 11:27 AM EDT Hydronephrosis with ureteral stricture, not elsewhere classified CONFIRM BLOOD DFUIBnvxdmp00/20/2025 10:24 AM EDT Pre-op evaluation TYPE + SRDGPHIvxrugk30/20/2025 10:19 AM EDT Ureteral stricture Hydronephrosis with ureteral stricture, not elsewhere classified COMPREHENSIVE METABOLIC HENHARbvmctq85/20/2025 10:19 AM EDT Ureteral stricture Hydronephrosis with ureteral stricture, not elsewhere classified COMPLETE BLOOD ESAPZZpylrav98/20/2025 10:19 AM EDT Ureteral stricture Hydronephrosis with ureteral stricture, not elsewhere classified from Last 3 Months Results * Airway (01/07/2025 7:46 AM EDT) Narrative Leonora Leggett DO - 01/07/2025 7:46 AM EDT Leonora Leggett DO 01/07/2025 8:16 AM Airway General Information Procedure Start Time/Medication Administration: 01/07/2025 7:46 AM Procedure End Time: 01/07/2025 7:47 AM Patient location during procedure: OR Timeout Performed Pre-procedure: timeout performed Consent Obtained: Yes Patient identity confirmed: arm band Staffing Anesthesiologist: Aniya England MD Resident: Leonora Leggett DO Performed by: resident Indications and Patient Condition Indications for airway management: anesthesia Preoxygenated: yes ? anesthesia circuit Patient position: sniffing Method: asleep Difficult Mask: No Airway Accessory: oral airway Final Airway Details Final airway type: endotracheal airwayFinal Endotracheal Airway: ETT Cuffed: yes Successful intubation technique: video laryngoscopy Devices used: [place] Endotracheal tube insertion site: oral Blade: Sandy Blade size: #3 ETT size (mm): 7.0 Measured from: lips Measurement (cm): 22 Placement verified by: chest auscultation and capnometry Cormack-Lehane Classification: grade IIa - partial view of glottis Number of attempts at approach: 1 Airway not difficult Authorizing ProviderResult TypeResult StatusAhshelley England MDANESTHESIA ORDERABLES Final Result * GLUCOSE, BLOOD (POC) (01/07/2025 5:41 AM EDT)ComponentValueRef RangeTest MethodAnalysis TimePerformed AtPathologist SignatureGlucose, Point of Ghls0698 - 99 mg/dLElyria Memorial HospitalComment: Location:[address], [facility] The Accu-Chek Inform II glucose meter has not been approved for testing on patients receiving intensive medical intervention or therapy and results from this point of care glucose test should not be used for patient management decisions in these cases. ??Inaccurate results may also occur from other interfering factors, such as N-acetylcysteine (blood concentrations of greater than 5mg/dL), galactose, extremes of hematocrit (<10 or >65), or high doses of ascorbic acid (vitamin C) greater than 3mg/dL. ??Consider alternate testing mechanisms (e.g. core lab, blood gas instrument) in the above situations. Specimen (Source)Anatomical Location / LateralityCollection Method / Volume Collection TimeReceived Time01/07/2025 5:41 AM EDT Narrative Authorizing ProviderResult TypeResult StatusMolly Jocy MDPOC TESTINGFinal ResultPerforming OrganizationAddressCity/State/ZIP CodePhone Number [facility] POINT OF CARE [facility] [address] [place], [place] * EXTERNAL LAB (12/31/2024 2:00 PM EDT) Only the most recent of2 resultswithin the time period is included. Narrative Authorizing ProviderResult TypeResult StatusExternal Provider PA-CLABORATORY Final Result * CT UROGRAM WO/W IVCON (12/31/2024 11:27 AM EDT)Anatomical RegionLaterality ModalityAbdomenComputed TomographySpecimen (Source)Anatomical Location / LateralityCollection Method / VolumeCollection TimeReceived Time12/31/2024 11:27 AM EDT Impressions 12/31/2024 1:51 PM EDT IMPRESSION: 1. ??Small nonobstructing renal calculi measuring 2 mm in size in the midpole of the right kidney in the midpole of the left kidney. ??No ureteral calculi. ??No hydronephrosis or hydroureter No upper tract urothelial filling defects or strictures detected. Transcribe Date/Time: Dec 31 2024 ??1:29P Dictated by: RERE GUARDADO MD This examination was interpreted and the report reviewed and electronically signed by: RERE GUARDADO MD on Dec 31 2024 ??1:49PM ??EST Thank you for allowing us to participate in the care of your patient. Should there be any questions regarding this interpretation, please call [phone]. If you are unable to reach us at the number above, please feel free to contact [facility] eRadiology at [phone]. Narrative 12/31/2024 1:51 PM EDT * * *Final Report* * * DATE OF EXAM: Dec 31 2024 11:27AM ?? LNC ?? 0560 ??- ??CT UROGRAM WO/W IVCON ??/ PROCEDURE REASON: Hydronephrosis with ureteral stricture, not elsewhere classified ? * * * * Physician Interpretation * * * * RESULT: EXAMINATION: ?? CT ABDOMEN AND PELVIS WITHOUT AND WITH IV CONTRAST, INCLUDING EXCRETORY PHASE IMAGING (CT UROGRAM) ??3D RECONSTRUCTIONS CLINICAL HISTORY: Hydronephrosis with ureteral stricture. TECHNIQUE: CT urogram protocol including unenhanced, renal parenchymal phase and excretory phase ??renal imaging was obtained following IV contrast. ??Normal saline was also administered IV. ??No oral contrast was given. ??3D image post-processing was performed and archived at the request of the referring physician, on the CT scanner workstation without concurrent physician supervision. MQ: ??CTU_2 Contrast: IV: ??100 ml of Omnipaque 350 IV Saline: ??100 ml of Omnipaque 350 Oral Contrast: None CT Radiation dose: Integrated dose-length product (DLP) for this visit = ?? 1759 mGy*cm. CT Dose Reduction Employed: Automated exposure control (AEC) COMPARISON: None. RESULT: Kidneys and urinary tract: Right: 2 mm nonobstructing stone in the midpole of the right kidney. No ureteral calculi. ??No hydronephrosis or hydroureter. ??No upper tract urothelial filling defects or strictures detected. Left: 2 mm nonobstructing stone in the midpole of the left kidney. No ureteral calculi. ??No hydronephrosis or hydroureter. ??No upper tract urothelial filling defects or strictures detected. Bladder: No filling defect, calculus, focal or diffuse wall thickening. Abdomen and Pelvis: Liver: No mass. Biliary: No bile duct dilation. ??Cholecystectomy. Spleen: No mass. No splenomegaly. Pancreas: No mass or duct dilation. Adrenals: No mass. GI tract: No dilation or wall thickening. Lymph nodes: No abdominal or pelvic lymphadenopathy. Mesentery/Peritoneum: No ascites or mass. Pelvis: Hysterectomy. Bones and Soft Tissues: No significant finding. Lower thorax: Unremarkable. Localizer images: No additional findings. Procedure Note Provider, [facility] [place] - 12/31/2024 * * *Final Report* * * DATE OF EXAM: Dec 31 2024 11:27AM [facility] 0560 - CT UROGRAM WO/W IVCON / [...] thorax: Unremarkable. Localizer images: No additional findings. IMPRESSION IMPRESSION: 1. Small nonobstructing renal calculi measuring [...] any questions regarding this interpretation, please call [phone]. If you are unable to reach us at the number above, please feel free to contact [facility] eRadiology at [phone]. Authorizing ProviderResult TypeResult StatusMolly Bulmaro-Zurdo MDCT-PAMAFinal Result * CONFIRM BLOOD TYPE (12/31/2024 10:24 AM EDT)ComponentValueRef RangeTest Method Analysis TimePerformed AtPathologist QbuovrewcXOCV10/20/2025 4:49 PM EDT [facility] MAIN LABRh(D)Jzfyblmn38/20/2025 4:49 PM EDTCPARMA COMM[facility]ITY [facility] MAIN LABSpecimen (Source)Anatomical Location / LateralityCollection Method / VolumeCollection TimeReceived TimeBloodBLOOD SPECIMEN / UnknownVenipuncture / Shxkiht3712/31/2024 10:24 AM EDT1 10:24 AM EDT Narrative Authorizing ProviderResult TypeResult StatusDaniarlette Stevens APRN.CNPBLOOD BANKFinal ResultPerforming OrganizationAddressCity/State/ZIP CodePhone Number [facility] [address] * COMPREHENSIVE METABOLIC PANEL (12/31/2024 10:19 AM EDT)ComponentValueRef Range Test MethodAnalysis TimePerformed AtPathologist SignatureProtein, Total6.86.3 - 8.0 g/dL12/31/2024 9:31 PM EDTCPARMA COMMUNITY GENERAL [facility] MAIN LABAlbumin4.03.9 - 4.9 g/dL12/31/2024 9:31 PM EDTCPARMA COMM[facility]ITY GENERAL [facility] MAIN LABCalcium, Total8.98.5 - 10.2 mg/dL12/31/2024 9:31 PM EDTCPARMA COMM[facility]ITY [facility]AL [facility] MAIN LABBilirubin, Total0.50.2 - 1.3 mg/dL12/31/2024 9:31 PM EDTCPARMA COMMUNITY GENERAL [facility] MAIN LABAlkaline Odmfegkruzl83 34 - 123 U/L1 9:31 PM EDTCPARMA COMMUNITY GENERAL [facility] MAIN DFDYII5817 - 35 U/L 12/31/2024 9:31 PM [facility] MAIN QPOSWW996 - 38 U/L1 9:31 PM [facility] MAIN UPPCeajqmn3283 - 99 mg/dL12/31/2024 9:31 PM EDT [facility] MAIN LABComment: The [place] [employer] (ADA) provides guidance for cutoff values for fasting glucose andrandom glucose. The ADA defines fasting as no caloric intake for at least 8 hours. Fasting plasma glucose results between 100 to 125 mg/dL indicate increased risk for diabetes (prediabetes). Fasting plasma glucose results greater than or [...] Standards of Medical Care in Diabetes 2016, [place] [employer]. Diabetes Care. 2016.39(Suppl 1). BUN97 - 21 mg/dL12/31/2024 9:31 PM [facility] MAIN LABCreatinine0.73 0.58 - 0.96 mg/dL12/31/2024 9:31 PM [facility] MAIN TLRDhorlb272259 - 144 mmol/L1 9:31 PM [facility] MAIN LABPotassium4.33.7 - 5.1 mmol/L1 9:31 PM [facility] MAIN WTPDmjsprxp66172 - 107 mmol/L 12/31/2024 9:31 PM [facility] MAIN YSXFA70792 - 30 mmol/L1 9:31 PM [facility] MAIN LABAnion Srz098 - 15 mmol/L1 9:31 PM [facility] MAIN LABEstimated Glomerular Filtration Njty497>=60 mL/min/1.73m 12/31/2024 9:31 PM [facility] MAIN LABComment:Estimated Glomerular Filtration Rate (eGFR) is calculated using the 2020 CKD-EPI creatinine equation. This equation utilizes serum creatinine, sex, and age as parameters. The creatinine assay has traceable calibration to isotope dilution-mass spectrometry. Refer to KDIGO guidelines for clinical interpretation. In patients with unstable renal function, e.g. those with acute kidney injury, the eGFRmay not accurately reflect actual GFR.Specimen (Source)Anatomical Location / LateralityCollection Method / VolumeCollection TimeReceived TimeBloodBLOOD SPECIMEN / UnknownVenipuncture / Kogvqvc3512/31/2024 10:19 AM EDT1 10:20 AM EDT Narrative Authorizing ProviderResult TypeResult StatusMolly Jocy STILESLABORATORYFinal ResultPerforming OrganizationAddressCity/State/ZIP CodePhone Number [facility] LAB [address] [place] [address], * COMPLETE BLOOD COUNT (12/31/2024 10:19 AM EDT)ComponentValueRef RangeTest MethodAnalysis TimePerformed AtPathologist SignatureWBC7.133.70 - 11.00 k/uL 12/31/2024 4:42 PM EDTCLEVELST. MARY'S HOSPITAL MAIN LABRBC4.643.90 - 5.20 m/uL 12/31/2024 4:42 PM EDTCPARMA [facility] MAIN QHMGjkxztgbyb97.511.5 - 15.5 g/dL 12/31/2024 4:42 PM EDTCPARMA [facility] MAIN JNOMvbtstejqp27.736.0 - 46.0 % 12/31/2024 4:42 PM EDTCPARMA [facility] MA[facility] FIKLLB22.680.0 - 100.0 fL 12/31/2024 4:42 PM EDTCPARMA [facility] MAIN EPQREX80.926.0 - 34.0 pg12/31/2024 4:42 PM EDTCPARMA [facility] MAIN PDHLKHE32.530.5 - 36.0 g/dL12/31/2024 4:42 PM EDTCPARMA COMM[facility] MAIN LABRDW-CV13.811.5 - 15.0 %12/31/2024 4:42 PM EDT [facility] MAIN LABPlatelet Idtwq928604 - 400 k/uL12/31/2024 4:42 PM EDT [facility] MAIN LABMPV9.39.0 - 12.7 fL12/31/2024 4:42 PM EDTCPARMA COMMUNITY [facility] MAIN LABAbsolute nRBC<0.01<0.01 k/uL12/31/2024 4:42 PM EDTCLEVELAND [facility] MAIN LABSpecimen (Source)Anatomical Location / LateralityCollection Method / VolumeCollection TimeReceived TimeBloodBLOOD SPECIMEN / Unknown Venipuncture / Nyspgnh8112/31/2024 10:19 AM EDT1 10:20 AM EDT Narrative Authorizing ProviderResult TypeResult StatusMollmacrina Sandra MDLABORATORYFinal ResultPerforming OrganizationAddressCity/State/ZIP CodePhone Number [facility] [address] * TYPE + SCREEN (12/31/2024 10:19 AM EDT)ComponentValueRef RangeTest Method Analysis TimePerformed AtPathologist LhahvcpsjQQEZ88/20/2025 5:10 PM EDT [facility] MAIN LABRh(D)Xouirkxe16/20/2025 5:10 PM EDTCLEVELST. MARY'S HOSPITAL MAIN LABAntibody KdfabfKgvwvsll74/20/2025 5:10 PM EDTCLEVELST. MARY'S HOSPITAL MAIN LAB Type and Screen Vzxpufjjrn31/23/2025 23:5912/31/2024 5:10 PM EDTCPARMA COMMUNITY [facility] MAIN LABSpecimen (Source)Anatomical Location / LateralityCollection Method / VolumeCollection TimeReceived TimeBloodBLOOD SPECIMEN / Unknown Venipuncture / Rxryjrw3912/31/2024 10:19 AM EDT1 10:20 AM EDT Narrative Authorizing ProviderResult TypeResult StatusMollmacrina Sandra MDBLOOD BANKFinal ResultPerforming OrganizationAddressCity/State/ZIP CodePhone Number [facility] [address] from Last 3 Months Insurance Care Teams Team MemberRelationshipSpecialtyStart DateEnd Date Saniya Mays NP [address] [place] [address] PCP - GeneralFamily Medicine12/10/24 Kamaljit Romero MD [address] [place] [id number] ReferringUrology11/06/24 Brent Roland DO [address] [place] [address] Dr Wiliam Casanova [place] [id number] Ob/Gyn12/10/24
[2025-03-13 09:33] LABS: Free T3 3.33 pg/mL (2.18-3.98); Thyroid Stimulating Hormone 0.052 uIU/mL (0.358-3.740)
[2025-03-17 16:08] LABS: Reverse T3, Serum 21.7 ng/dL (9.2-24.1)
== END 2025-03-13 08:06 | disposition home or self-care (01) ==
PROVIDERS: PCP Nurse Practitioner Family; Visit Provider Obstetrics & Gynecology
DX: R79.89 Other specified abnormal findings of blood chemistry (principal)
CPT/HCPCS: 36415; 84436; 84439; 84443; 84481; 84482